=== PATIENT | male | born 1955 | race African-American/Black ===

== ENCOUNTER 2016-11-24 21:06 | Emergency (ER) | payer MEDICARE, OTHER ==
[2016-11-24 21:13] VITALS: RESP 18; TEMP 98
[2016-11-24] MEDS ORDERED: NITROGLYCERIN SL TABS 0.4 MG TAB SUBLINGUAL STA ×3 (22:00)
[2016-11-24] MEDS ORDERED: ASPIRIN 81 MG CHEW PO STA (22:00)
--- NOTE | 2016-11-24 22:03 | ED ---
General Adult HPI - General Chief complaint: Chest Pain Stated complaint: Chest Pain Time Seen by Provider: 11/24/16 21:28 Source: patient, RN notes reviewed Mode of arrival: EMS Limitations: no limitations - History of Present Illness Initial comments: Patient is a pleasant 61-year-old male presenting to the emergency Department with chest discomfort. Onset of symptoms was around 6 PM while at rest. Symptoms persist. Discomfort feels like heaviness. Symptoms are somewhat similar to stent placement done last week. No vomiting or sweating. - Related Data Home Medications Medication Instructions Recorded Confirmed Fluticasone Propionate [Flonase 1 spray EA NOSTRIL BID PRN 03/10/15 11/24/16 Allergy Relief] Carisoprodol [Soma] 350 mg PO TID PRN 12/19/15 11/24/16 HYDROmorphone HCL 4 mg PO DAILY PRN 05/27/16 11/24/16 Diazepam 10 mg PO HS 10/04/16 11/24/16 SUMAtriptan SUCCINATE [Imitrex] 100 mg PO BID PRN 10/04/16 11/24/16 Atenolol 100 mg PO BID 11/18/16 11/24/16 Promethazine [Phenergan] 25 mg PO Q6HR PRN 11/18/16 11/24/16 Spironolactone-Hctz 25-25Mg 1 tab PO DAILY 11/18/16 11/24/16 [Aldactazide 25-25 MG] Previous Rx's Medication Instructions Recorded Morphine Sulfate ER [Ms Contin] 60 mg PO Q12HR #60 tab 06/04/15 cloNIDine HCL [Catapres] 0.1 mg PO BID #6 tab 09/19/16 Atorvastatin [Lipitor] 40 mg PO DAILY 30 Days 10/05/16 Nitroglycerin Sl Tabs [Nitrostat] 0.4 mg SUBLINGUAL Q5M PRN #0 tab 10/05/16 amLODIPine [Norvasc] 5 mg PO DAILY 30 Days 10/05/16 Aspirin 325 mg PO DAILY #30 tab 11/22/16 Azithromycin [Zithromax] 500 mg PO DAILY #3 tab 11/22/16 Isosorbide Mononitrate ER [Imdur] 30 mg PO DAILY #30 tab.er.24h 11/22/16 Prasugrel [Effient] 10 mg PO DAILY #30 tab 11/22/16 oxyCODONE HCL/ACETAMINOPHEN 1 tab PO Q6HR PRN #1 tab 11/22/16 [Percocet 10-325 mg] Allergies Allergy/AdvReac Type Severity Reaction Status Date / Time ibuprofen [From Motrin] Allergy Rash/Hives Verified 11/24/16 22:41 ketorolac tromethamine Allergy Rash/Hives Verified 11/24/16 22:41 [From Toradol] Review of Systems ROS Statement: Those systems with pertinent positive or pertinent negative responses have been documented in the HPI. ROS Other: All systems not noted in ROS Statement are negative. Constitutional: Denies: fever Eyes: Denies: eye pain ENT: Denies: ear pain Respiratory: Denies: cough Cardiovascular: Reports: chest pain Endocrine: Denies: fatigue Gastrointestinal: Denies: abdominal pain Genitourinary: Denies: dysuria Musculoskeletal: Denies: arthralgia Skin: Denies: rash Past Medical History Past Medical History: Chest Pain / Angina, Hyperlipidemia, Hypertension Additional Past Medical History / Comment(s): Other HX: CHRONIC BACK PAIN, chronic pain syndrome, migraines History of Any Multi-Drug Resistant Organisms: None Reported Past Surgical History: Back Surgery Additional Past Surgical History / Comment(s): Low back surgery, bilateral arm and bilateral thigh surgeries for brown recluse spider bites with infection, morphine pain pump insertion and removal due to infection. Past Anesthesia/Blood Transfusion Reactions: No Reported Reaction Additional Past Anesthesia/Blood Transfusion Reaction / Comment(s): Pt recieved blood after back surgery and tolerated it well. Past Psychological History: No Psychological Hx Reported Additional Psychological History / Comment(s): Pt resides with his . He is fairly independent. He uses a cane/walker to ambulate. Smoking Status: Former smoker Past Alcohol Use History: None Reported Additional Past Alcohol Use History / Comment(s): . Past Drug Use History: None Reported - Past Family History Father Additional Family Medical History / Comment(s): Father had back problems. Mother Family Medical History: Hypertension Brother(s) Family Medical History: Cancer Additional Family Medical History / Comment(s): Leukemia General Exam Limitations: no limitations General appearance: alert, in no apparent distress Head exam: Present: atraumatic Eye exam: Present: normal appearance, PERRL ENT exam: Present: normal oropharynx Neck exam: Present: normal inspection Respiratory exam: Present: normal lung sounds bilaterally. Absent: chest wall tenderness Cardiovascular Exam: Present: regular rate, normal rhythm Expanded Peripheral pulses: 2+: Radial (R), Radial (L), Dorsalis Pedis (R), Dorsalis Pedis (L) GI/Abdominal exam: Present: soft. Absent: tenderness Extremities exam: Present: normal inspection. Absent: pedal edema, calf tenderness Neurological exam: Present: alert Psychiatric exam: Present: normal affect, normal mood Skin exam: Absent: rash Course Vital Signs 11/24/16 11/24/16 11/24/16 21:08 22:03 23:11 Temperature 98.0 F Pulse Rate 75 75 81 Respiratory 18 18 18 Rate Blood Pressure 158/95 166/113 149/104 O2 Sat by Pulse 96 100 99 Oximetry 11/24/16 11/25/16 23:56 00:07 Temperature Pulse Rate 71 64 Respiratory 18 18 Rate Blood Pressure 166/101 182/98 O2 Sat by Pulse 99 98 Oximetry - Reevaluation(s) Reevaluation #1: 11/24/16 23:26 Despite several nursing attempts at IV and [employer]ING [employer] still unable to obtain labs or IV access. Patient refuses interosseous line. Patient warned of risks of central line. 11/25/16 00:32 Patient is refusing central line. Patient is explained risk and benefits of obtaining blood work and IV access. Despite this patient states he is nervous and still refuses. Case was discussed in detail with Dr. Mares who agrees the patient will not allow IV access and lab work he'll need to sign out AGAINST MEDICAL ADVICE. Patient is advised of this and would like to leave AGAINST MEDICAL ADVICE. Patient does demonstrate medical decision making. EKG Findings - EKG Comments: EKG Findings:: Normal sinus rhythm at 81. IA 172. QRS 90. QT 374. QTC 434. Normal axis. Normal QRS. Normal ST-T. Previous EKGs reviewed. 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 Return for worsening or change in symptoms or any other concerns. Referrals: Lucian Mares MD [Primary Care Provider] - 1-2 days
--- NOTE | 2016-11-24 23:13 | XR ---
EXAMINATION TYPE: XR chest 2V DATE OF EXAM: 11/24/2016 10:54 PM COMPARISON: November 18, 2016 HISTORY: Left-sided chest pain nausea and fever TECHNIQUE: Frontal and lateral views of the chest are obtained. FINDINGS: There is no focal air space opacity, pleural effusion, or pneumothorax seen. The cardiac silhouette size is within normal limits. Thoracic aorta is tortuous and ectatic.. The osseous structu res are intact. Mild old wedge compression deformities of thoracic vertebrae are noted. IMPRESSION: No acute cardiopulmonary process. No significant interval change.
[2016-11-25 00:10] VITALS: BP 182/98; PULSE 64
== END 2016-11-25 00:44 | disposition left against medical advice (07) ==
LOC: EC 21:06
DX: R07.9 Chest pain, unspecified (principal); I10 Essential (primary) hypertension; E78.5 Hyperlipidemia, unspecified; Z87.891 Personal history of nicotine dependence; Z88.8 Allergy status to other drugs, medicaments and biological substances; Z79.82 Long term (current) use of aspirin; Z79.899 Other long term (current) drug therapy; Z79.891 Long term (current) use of opiate analgesic
CPT/HCPCS: 71020; 93005; 99285

== ENCOUNTER 2017-04-20 09:03 | Inpatient (IN) | payer MEDICARE, OTHER ==
[2017-04-20] MEDS ORDERED: NITROGLYCERIN OINT 1 INCH/GM PACKET TOPICAL STA (09:25)
--- NOTE | 2017-04-20 09:27 | ED ---
General Adult HPI - General Chief complaint: Chest Pain Stated complaint: chest pain Time Seen by Provider: 04/20/17 09:10 Source: patient, RN notes reviewed Mode of arrival: wheelchair Limitations: no limitations - History of Present Illness Initial comments: This is a 61-year-old male comes in the emergency room with a past medical history significant for stents. Patient states this morning at 6:30 while watching TV started having chest pain went to his jaw. Patient states she is also very short of breath at that time. Patient states since then the pain is resolved. Patient states he also became nauseated and vomited he also noticed blood clots in the vomit. Patient states he is on Effient because of the stents. Patient denies any palpitations. Patient denies any recent fever chills or cough. Patient denies abdominal pain. Patient denies lightheadedness or dizziness. Patient denies any headache patient denies any numbness weakness. - Related Data Home Medications Medication Instructions Recorded Confirmed Carisoprodol [Soma] 350 mg PO TID PRN 12/19/15 04/20/17 HYDROmorphone HCL 4 mg PO BID PRN 05/27/16 04/20/17 Diazepam 10 mg PO HS 10/04/16 04/20/17 Aspirin 81 mg PO DAILY 01/21/17 04/20/17 Carvedilol 25 mg PO BID 01/21/17 04/20/17 Lisinopril [Zestril] 20 mg PO Q12H 01/21/17 04/20/17 Fluticasone Nasal [place] [Flonase 1 spray EA NOSTRIL DAILY 04/20/17 04/20/17 Nasal [place]] Previous Rx's Medication Instructions Recorded Morphine Sulfate ER [Ms Contin] 60 mg PO Q12HR #60 tab 06/04/15 Prasugrel [Effient] 10 mg PO DAILY #30 tab 11/22/16 Allergies Allergy/AdvReac Type Severity Reaction Status Date / Time ibuprofen [From Motrin] Allergy Rash/Hives Verified 04/20/17 11:07 ketorolac tromethamine Allergy Rash/Hives Verified 04/20/17 11:07 [From Toradol] Review of Systems ROS Statement: Those systems with pertinent positive or pertinent negative responses have been documented in the HPI. ROS Other: All systems not noted in ROS Statement are negative. Past Medical History Past Medical History: Chest Pain / Angina, Hyperlipidemia, Hypertension Additional Past Medical History / Comment(s): Other HX: CHRONIC BACK PAIN, chronic pain syndrome, migraines History of Any Multi-Drug Resistant Organisms: None Reported Past Surgical History: Back Surgery Additional Past Surgical History / Comment(s): Low back surgery, bilateral arm and bilateral thigh surgeries for brown recluse spider bites with infection, morphine pain pump insertion and removal due to infection. Past Anesthesia/Blood Transfusion Reactions: No Reported Reaction Additional Past Anesthesia/Blood Transfusion Reaction / Comment(s): Pt recieved blood after back surgery and tolerated it well. Past Psychological History: No Psychological Hx Reported Additional Psychological History / Comment(s): Pt resides with his . He is fairly independent. He uses a cane/walker to ambulate. Smoking Status: Former smoker Past Alcohol Use History: None Reported Additional Past Alcohol Use History / Comment(s): . Past Drug Use History: None Reported - Past Family History Father Additional Family Medical History / Comment(s): Father had back problems. Mother Family Medical History: Hypertension, Myocardial Infarction ([place]) Brother(s) Family Medical History: Cancer Additional Family Medical History / Comment(s): Leukemia General Exam - General Exam Comments Initial Comments: GENERAL: Patient is well-developed and well-nourished. Patient is nontoxic and well- hydrated and is in no acute distress. ENT: Neck is soft and supple. No significant lymphadenopathy is noted. Oropharynx is clear. Moist mucous membranes. Neck has full range of motion without eliciting any pain. EYES: The sclera were anicteric and conjunctiva were pink and moist. Extraocular movements were intact and pupils were equal round and reactive to light. Eyelids were unremarkable. PULMONARY: Unlabored respirations. Good breath sounds bilaterally. No audible rales rhonchi or wheezing was noted. CARDIOVASCULAR: There is a regular rate and rhythm without any murmurs gallops or rubs. ABDOMEN: Soft and nontender with normal bowel sounds. No palpable organomegaly was noted. There is no palpable pulsatile mass. SKIN: Skin is clear with no lesions or rashes and otherwise unremarkable. NEUROLOGIC: Patient is alert and oriented x3. Cranial nerves II through XII are grossly intact. Motor and sensory are also intact. Normal speech, volume and content. Symmetrical smile. MUSCULOSKELETAL: Normal extremities with adequate strength and full range of motion. No lower extremity swelling or edema. No calf tenderness. LYMPHATICS: No significant lymphadenopathy is noted PSYCHIATRIC: Normal psychiatric evaluation. Limitations: no limitations Course Vital Signs 04/20/17 04/20/17 09:07 11:00 Temperature 97.8 F 98.1 F Pulse Rate 75 70 Respiratory 18 18 Rate Blood Pressure 188/111 171/104 O2 Sat by Pulse 99 99 Oximetry Medical Decision Making - Medical Decision Making EKG shows normal sinus rhythm at 70 bpm [place] interval is 174 QRS is 86 QT interval 384 QTC is 414. Patient's EKG shows no acute ST segment elevation or depression or T-wave abdomen is noted. Because patient was coughing up some blood I did not give the patient aspirin and I will not be giving the patient heparin Chest x-ray shows no acute abnormality. I held heparin on the patient because the patient was vomiting up blood earlier. - Lab Data Result diagrams: 04/20/17 10:30 04/20/17 10:30 Lab Results 04/20/17 04/20/17 04/20/17 Range/Units 10:30 10:30 10:30 WBC 3.7 L (3.8-10.6) k/uL RBC 4.36 (4.30-5.90) m/uL Hgb 12.0 L (13.0-17.5) gm/dL Hct 38.3 L (39.0-53.0) % MCV 87.8 (80.0-100.0) fL MCH 27.6 (25.0-35.0) pg MCHC 31.4 (31.0-37.0) g/dL RDW 15.2 (11.5-15.5) % Plt Count 385 (150-450) k/uL Neutrophils % 62 % Lymphocytes % 25 % Monocytes % 7 % Eosinophils % 2 % Basophils % 2 % Neutrophils # 2.3 (1.3-7.7) k/uL Lymphocytes # 0.9 L (1.0-4.8) k/uL Monocytes # 0.3 (0-1.0) k/uL Eosinophils # 0.1 (0-0.7) k/uL Basophils # 0.1 (0-0.2) k/uL PT (9.0-12.0) sec INR (<1.1) APTT (22.0-30.0) sec Sodium 141 (137-145) mmol/L Potassium 4.3 (3.5-5.1) mmol/L Chloride 109 H (98-107) mmol/L Carbon Dioxide 24 (22-30) mmol/L Anion Gap 8 mmol/L BUN 7 L (9-20) mg/dL Creatinine 0.54 L (0.66-1.25) mg/dL Est GFR (MDRD) Af Amer >60 (>60 ml/min/1.73 sqM) Est GFR (MDRD) Non-Af >60 (>60 ml/min/1.73 sqM) Glucose 113 H (74-99) mg/dL Calcium 9.5 (8.4-10.2) mg/dL Magnesium 1.9 (1.6-2.3) mg/dL Total Bilirubin 0.7 (0.2-1.3) mg/dL AST 20 (17-59) U/L ALT 19 L (21-72) U/L Alkaline Phosphatase 64 (38-126) U/L Total Creatine Kinase 53 L (55-170) U/L CK-MB (CK-2) 0.5 (0.0-2.4) ng/mL CK-MB (CK-2) Rel Index 0.9 Troponin I 0.020 (0.000-0.034) ng/mL Total Protein 6.8 (6.3-8.2) g/dL Albumin 4.0 (3.5-5.0) g/dL 04/20/17 Range/Units 10:55 WBC (3.8-10.6) k/uL RBC (4.30-5.90) m/uL Hgb (13.0-17.5) gm/dL Hct (39.0-53.0) % MCV (80.0-100.0) fL MCH (25.0-35.0) pg MCHC (31.0-37.0) g/dL RDW (11.5-15.5) % Plt Count (150-450) k/uL Neutrophils % % Lymphocytes % % Monocytes % % Eosinophils % % Basophils % % Neutrophils # (1.3-7.7) k/uL Lymphocytes # (1.0-4.8) k/uL Monocytes # (0-1.0) k/uL Eosinophils # (0-0.7) k/uL Basophils # (0-0.2) k/uL PT 10.8 (9.0-12.0) sec INR 1.1 (<1.1) APTT 23.9 (22.0-30.0) sec Sodium (137-145) mmol/L Potassium (3.5-5.1) mmol/L Chloride (98-107) mmol/L Carbon Dioxide (22-30) mmol/L Anion Gap mmol/L BUN (9-20) mg/dL Creatinine (0.66-1.25) mg/dL Est GFR (MDRD) Af Amer (>60 ml/min/1.73 sqM) Est GFR (MDRD) Non-Af (>60 ml/min/1.73 sqM) Glucose (74-99) mg/dL Calcium (8.4-10.2) mg/dL Magnesium (1.6-2.3) mg/dL Total Bilirubin (0.2-1.3) mg/dL AST (17-59) U/L ALT (21-72) U/L Alkaline Phosphatase (38-126) U/L Total Creatine Kinase (55-170) U/L CK-MB (CK-2) (0.0-2.4) ng/mL CK-MB (CK-2) Rel Index Troponin I (0.000-0.034) ng/mL Total Protein (6.3-8.2) g/dL Albumin (3.5-5.0) g/dL Disposition Clinical Impression: Unstable angina pectoris Disposition: ADMITTED IP TO THIS HOSP Referrals: Lucian Mares MD [Primary Care Provider] - 1-2 days Time of Disposition: 11:50
--- NOTE | 2017-04-20 10:23 | XR ---
EXAMINATION TYPE: XR chest 2V DATE OF EXAM: 04/20/2017 COMPARISON: Prior 21 January 2017 HISTORY: Chest pain TECHNIQUE: Frontal and lateral views of the chest are obtained. FINDINGS: There is no focal air space opacity, pleural effusion, or pneumothorax seen. The cardiac silhouette size is within normal limits. Prominent lung volumes suggest underlying COPD. Patient is r otated. The osseous structures are intact. IMPRESSION: No acute cardiopulmonary process.
[2017-04-20 10:48] LABS: Basophils # (A) 0.1 k/uL (0-0.2); Basophils % (A) 2 %; Eosinophils # (A) 0.1 k/uL (0-0.7); Eosinophils % (A) 2 %; HCT 38.3 % (39.0-53.0); HDW 2.46; Luc # (Auto) 0.08; Luc % (Auto) 2; Lymphocytes # (A) 0.9 k/uL (1.0-4.8); Lymphocytes % (A) 25 %; MCH 27.6 pg (25.0-35.0); MCHC 31.4 g/dL (31.0-37.0); MCV 87.8 fL (80.0-100.0); Mean Platelet Volume 6.2; Monocytes # (A) 0.3 k/uL (0-1.0); Monocytes % (A) 7 %; Neutrophils # (A) 2.3 k/uL (1.3-7.7); Neutrophils % (A) 62 %; RBC 4.36 m/uL (4.30-5.90); RDW 15.2 % (11.5-15.5); WBC 3.7 k/uL (3.8-10.6); WBC (Perox) 3.49
[2017-04-20 11:15] LABS: ALT 19 U/L (21-72); AST 20 U/L (17-59); Alkaline Phosphatase 64 U/L (38-126); Anion Gap 8 mmol/L; Blood Urea Nitrogen 7 mg/dL (9-20); Calcium 9.5 mg/dL (8.4-10.2); Carbon Dioxide 24 mmol/L (22-30); Chloride 109 mmol/L (98-107); Glucose 113 mg/dL (74-99); Magnesium 1.9 mg/dL (1.6-2.3); Non-African American GFR(MDRD) >60 (>60 ml/min/1.73 sqM); Potassium 4.3 mmol/L (3.5-5.1); Sodium 141 mmol/L (137-145); Total Bilirubin 0.7 mg/dL (0.2-1.3); Total Protein 6.8 g/dL (6.3-8.2)
[2017-04-20 11:22] LABS: INR 1.1 (<1.1); Partial Thromboplastin Time 23.9 sec (22.0-30.0); Prothrombin Time 10.8 sec (9.0-12.0)
[2017-04-20 11:27] LABS: Troponin I 0.02 ng/mL (0.000-0.034)
[2017-04-20 11:28] LABS: Creatine Kinase MB 0.5 ng/mL (0.0-2.4)
[2017-04-20] MEDS ORDERED: NITROGLYCERIN SL TABS 0.4 MG TAB SUBLINGUAL PRN (11:50)
[2017-04-20] MEDS ORDERED: LISINOPRIL 20 MG TAB PO STA (12:14)
[2017-04-20] MEDS ORDERED: ONDANSETRON 4 MG/2 ML VIAL IVP STA (12:25)
[2017-04-20] MEDS: oxyCODONE-APAP 7.5-325MG 1 EACH TAB PO PRN ×2 (14:58→21:09)
[2017-04-20] MEDS ORDERED: LORazepam 1 MG TAB PO PRN (15:24)
[2017-04-20] MEDS ORDERED: hydrALAZINE HCL 20 MG/ML 1 ML VIAL IVP PRN (15:29)
[2017-04-20 17:12] LABS: Creatine Kinase 40 U/L (55-170)
[2017-04-20] MEDS: NITROGLYCERIN OINT 1 INCH/GM PACKET TOPICAL SCH ×2 (17:14→23:29)
[2017-04-20] MEDS: HYDROmorphone 1 MG/ML 1 ML SYRINGE IVP PRN ×2 (17:15→23:26)
[2017-04-20] MEDS: CARVEDILOL 12.5 MG TAB PO SCH (17:15)
[2017-04-20] MEDS: ONDANSETRON 4 MG/2 ML VIAL IVP PRN ×2 (17:23→23:26)
[2017-04-20 17:24] LABS: Creatine Kinase MB 0.4 ng/mL (0.0-2.4); Troponin I <0.012 ng/mL (0.000-0.034)
[2017-04-20 18:57] VITALS: BMI 24.3
[2017-04-20] MEDS: cloNIDine HCL 0.1 MG TAB PO PRN (18:58)
[2017-04-20] MEDS: DIAZEPAM 5 MG TAB PO SCH (20:14)
[2017-04-20] MEDS: MORPHINE SULFATE ER 60 MG TABLET PO SCH (20:15)
[2017-04-20] MEDS: LISINOPRIL 20 MG TAB PO SCH (20:15)
[2017-04-20] MEDS: PANTOPRAZOLE 40 MG/10 ML VIAL IVP SCH (20:15)
[2017-04-20] MEDS: cloNIDine HCL 0.1 MG TAB PO SCH (21:09)
[2017-04-20 23:12] LABS: Creatine Kinase 45 U/L (55-170)
[2017-04-20 23:25] LABS: Creatine Kinase MB 0.3 ng/mL (0.0-2.4); Troponin I <0.012 ng/mL (0.000-0.034)
[2017-04-21] MEDS: oxyCODONE-APAP 7.5-325MG 1 EACH TAB PO PRN ×3 (03:13→20:32)
--- NOTE | 2017-04-21 05:17 | HP ---
DATE OF ADMISSION: I am covering for Dr. Mares. CHIEF COMPLAINT: Chest pain. HISTORY OF PRESENT ILLNESS: This 61-year-old gentleman with history of hypertension, hyperlipidemia, CAD, stent, history of chronic back pain, history of chronic pain, history of migraines, history of back surgery being followed Dr. Mares in the outpatient setting, admitted with chest pain. The pain is felt in the anterior part of the chest while the patient was watching TV. The patient also has shortness of breath. The patient also had nausea. No vomiting also. The patient came to [facility] and was admitted for further evaluation and treatment. There is no history of fever, rigors. No history of headache, loss of consciousness or seizures. The initial labs showed WBC 3.7 and . Troponin 0.020. Cardiology evaluation in progress. The chest x-ray on admission showed no cardiopulmonary disease. EKG is noted. There is no history of fever or rigors. PAST MEDICAL HISTORY: History of chest pain, CAD, agnina, hypertension, hyperlipidemia, chronic pain syndrome, chronic back pain. Medications prior to admission include home medications: 1. Effient 10 mg p.o. daily. 2. MS Contin 60 mg p.o. b.i.d. 3. Zestril 20 mg b.i.d. 4. Hydromorphone 4 mg b.i.d. p.r.n. 5. Coreg 25 mg p.o. b.i.d. 6. Soma 350 mg p.o. t.i.d. p.r.n. 7. Aspirin 81 mg daily. 8. Flonase one spray daily. 9. Diazepam 10 mg q.h.s. ALLERGIES: IBUPROFEN, KETOROLAC. FAMILY HISTORY: History of hypertension, myocardial infarction. Father had back problems. SOCIAL HISTORY: No history of current smoking, previous history of smoking. REVIEW OF SYSTEMS: ENT: No diminishing hearing or diminished vision. CARDIOVASCULAR SYSTEM: As mentioned earlier. RESPIRATORY SYSTEM: As mentioned. GI: No nausea. : No dysuria: NERVOUS SYSTEM: No numbness or weakness. ALLERGY/IMMUNOLOGY: No asthma or hayfever. MUSCULOSKELETAL: As mentioned earlier. HEMATOLOGY/ONCOLOGY: No history of anemia. ENDOCRINE: No history of diabetes mellitus or hypothyroidism. CONSTITUTIONAL; As mentioned earlier. DERMATOLOGY: Negative. RHEUMATOLOGY: Negative. PSYCHIATRY: As mentioned earlier. PHYSICAL EXAMINATION: The patient is alert and oriented x3. Pulse is 90, blood pressure 171/82, respirations 20, temperature 97.1., pulse ox 90% on 2 L. HEENT: Conjunctivae normal. NECK: No jugular venous distention. CARDIOVASCULAR: S1 and S2, muffled. No S3, no S4. RESPIRATORY: Breath sounds diminished at the bases. A few scattered rhonchi and crackles. ABDOMEN: Soft, nontender. No mass palpable. LEGS: No edema, no swelling. NERVOUS SYSTEM: Higher function as mentioned. Moves all 4 limbs. No focal deficits. LYMPHATICS: No lymphadenopathy of neck, axillae or groin. SKIN: No ulcer, rashes or bleeding. Labs are at this time show WBC 3.7, hemoglobin 12. Other labs are noted. Chest x-ray reviewed. ASSESSMENT: 1. Chest pain, possible unstable angina. Rule out acute myocardial infarction . 2. Hypertensive urgency with accelerated hypertension. 3. History of essential hypertension. 4. History of coronary artery disease and stent. 5. History of hyperlipidemia. 6. History of chronic back. 7. Chronic pain syndrome. 8. History of migraine. 9. History of brown recluse spider bite infections. 10. History of morphine pump insertion and removal because of infection. 11. FULL CODE. RECOMMENDATIONS AND DISCUSSION: This 61-year-old gentleman who presented with multiple complex medical issues, we will monitor the patient closely. Continue the current medications. Continues symptomatic treatment. Rule out myocardial infarction, Troponin. Cardiology consultation. Otherwise, unstable angina protocol. I would also recommend p.r.n. medications for the high blood pressure. The patient is on lisinopril b.i.d. Guarded prognosis because of the multiple medical issues and further recommendations to follow. See orders for further details. MTDD
[2017-04-21] MEDS: ONDANSETRON 4 MG/2 ML VIAL IVP PRN ×2 (05:26→20:39)
[2017-04-21] MEDS: HYDROmorphone 1 MG/ML 1 ML SYRINGE IVP PRN ×3 (05:26→18:14)
[2017-04-21 06:10] LABS: Basophils % (A) 1 %; CH 27.7; CHCM 31.9; Eosinophils # (A) 0.1 k/uL (0-0.7); Eosinophils % (A) 2 %; HDW 2.41; HGB 11.6 gm/dL (13.0-17.5); Luc # (Auto) 0.09; Luc % (Auto) 3; Lymphocytes # (A) 1.4 k/uL (1.0-4.8); Lymphocytes % (A) 39 %; MCH 28.1 pg (25.0-35.0); MCHC 32.3 g/dL (31.0-37.0); MCV 87.1 fL (80.0-100.0); Mean Platelet Volume 6.3; Monocytes # (A) 0.3 k/uL (0-1.0); Monocytes % (A) 8 %; Neutrophils # (A) 1.7 k/uL (1.3-7.7); Neutrophils % (A) 48 %; RBC 4.13 m/uL (4.30-5.90); RDW 15.2 % (11.5-15.5); WBC 3.5 k/uL (3.8-10.6); WBC (Perox) 3.29
[2017-04-21] MEDS: NITROGLYCERIN OINT 1 INCH/GM PACKET TOPICAL SCH ×4 (06:30→23:19)
[2017-04-21] MEDS: CARVEDILOL 12.5 MG TAB PO SCH ×2 (06:30→16:57)
[2017-04-21 06:47] LABS: Anion Gap 7 mmol/L; Blood Urea Nitrogen 6 mg/dL (9-20); Calcium 9.2 mg/dL (8.4-10.2); Carbon Dioxide 26 mmol/L (22-30); Chloride 106 mmol/L (98-107); Cholesterol 177 mg/dL (<200); Glucose 96 mg/dL (74-99); HDL Cholesterol 47 mg/dL (40-60); Non-African American GFR(MDRD) >60 (>60 ml/min/1.73 sqM); Potassium 4.1 mmol/L (3.5-5.1); Sodium 139 mmol/L (137-145); Triglycerides 136 mg/dL (<150)
--- NOTE | 2017-04-21 07:55 | P.PN ---
Subjective Principal diagnosis: Chest pain. This is a continue progress in 7-year-old -English male who came in for recurrent chest pain. He has had previous stent placement about 6 months ago. He states significant pain today. Enzymatic elevation is not seen from a CK-MB and troponin standpoint. He states he is in significant pain. He seems to be resting comfortably. He has a history of opioid dependence in the past. He has chronic pain physician that he sees. I do give him his muscle relaxer. He does claim nausea today. No other voiding difficulties. Objective - Vital Signs Vital signs: Vital Signs Temp 96.8 F L 04/21/17 07:32 Pulse 76 04/21/17 07:32 Resp 18 04/21/17 07:32 BP 139/102 04/21/17 07:32 Pulse Ox 98 04/21/17 07:32 Intake & Output 04/20/17 04/21/17 04/21/17 18:59 06:59 18:59 Intake Total 20 Output Total 1000 Balance -980 Weight 79.1 kg 77.7 kg Intake: IV 20 0.9 20 Output: Urine 1000 Other: # Voids 1 - Constitutional General appearance: Present: average body habitus - EENT Eyes: Absent: abnormal pupil - Neck Neck: Absent: lymphadenopathy - Respiratory Respiratory: bilateral: CTA - Cardiovascular Rhythm: regular - Gastrointestinal General gastrointestinal: Present: soft. Absent: tenderness - Neurologic Neurologic: Present: CNII-XII intact - Musculoskeletal Musculoskeletal: Absent: right sided weakness, left sided weakness - Labs CBC & Chem 7: 04/21/17 05:53 04/21/17 05:53 Labs: Abnormal Lab Results - Last 24 Hours (Table) 04/20/17 04/20/17 04/20/17 Range/Units 10:30 10:30 10:30 WBC 3.7 L (3.8-10.6) k/uL RBC (4.30-5.90) m/uL Hgb 12.0 L (13.0-17.5) gm/dL Hct 38.3 L (39.0-53.0) % Lymphocytes # 0.9 L (1.0-4.8) k/uL Chloride 109 H (98-107) mmol/L BUN 7 L (9-20) mg/dL Creatinine 0.54 L (0.66-1.25) mg/dL Glucose 113 H (74-99) mg/dL ALT 19 L (21-72) U/L Total Creatine Kinase 53 L (55-170) U/L LDL Cholesterol, Calc (0-99) mg/dL 04/20/17 04/20/17 04/21/17 Range/Units 16:25 22:40 05:53 WBC (3.8-10.6) k/uL RBC (4.30-5.90) m/uL Hgb (13.0-17.5) gm/dL Hct (39.0-53.0) % Lymphocytes # (1.0-4.8) k/uL Chloride (98-107) mmol/L BUN 6 L (9-20) mg/dL Creatinine 0.57 L (0.66-1.25) mg/dL Glucose (74-99) mg/dL ALT (21-72) U/L Total Creatine Kinase 40 L 45 L (55-170) U/L LDL Cholesterol, Calc 103 H (0-99) mg/dL 04/21/17 Range/Units 05:53 WBC 3.5 L (3.8-10.6) k/uL RBC 4.13 L (4.30-5.90) m/uL Hgb 11.6 L (13.0-17.5) gm/dL Hct 36.0 L (39.0-53.0) % Lymphocytes # (1.0-4.8) k/uL Chloride (98-107) mmol/L BUN (9-20) mg/dL Creatinine (0.66-1.25) mg/dL Glucose (74-99) mg/dL ALT (21-72) U/L Total Creatine Kinase (55-170) U/L LDL Cholesterol, Calc (0-99) mg/dL Assessment and Plan (1) Opiate dependence, continuous Status: Acute (2) Unstable angina pectoris Status: Acute (3) Accelerated hypertension Status: Acute (4) Intractable nausea and vomiting Status: Acute
[2017-04-21] MEDS ORDERED: PROCHLORPERAZINE 10 MG TAB PO PRN (07:56)
[2017-04-21] MEDS: PANTOPRAZOLE 40 MG/10 ML VIAL IVP SCH ×2 (08:47→20:33)
[2017-04-21] MEDS: PRASUGREL 10 MG TAB PO SCH (08:47)
[2017-04-21] MEDS: ASPIRIN 81 MG CHEW PO SCH (08:47)
[2017-04-21] MEDS: cloNIDine HCL 0.1 MG TAB PO SCH ×2 (08:48→20:33)
[2017-04-21] MEDS: LISINOPRIL 20 MG TAB PO SCH ×2 (08:48→20:33)
[2017-04-21] MEDS: MORPHINE SULFATE ER 60 MG TABLET PO SCH ×2 (08:55→20:32)
[2017-04-21] MEDS: FLUTICASONE 50MCG/SPRAY NASAL 16GM EA NOSTRIL SCH (08:56)
[2017-04-21] MEDS ORDERED: ASPIRIN 325 MG TAB PO SCH (09:00)
--- NOTE | 2017-04-21 09:10 | CONS ---
DATE OF CONSULTATION: Salomon is a 61-year-old gentleman with history of coronary artery disease, status post angioplasty, hypertension, and chronic back pain who presented to hospital with what started as a nausea and episodes of vomiting and subsequently had chest discomfort. We have been consulted for chest pain. His chest pain is sharp, atypical, seems musculoskeletal and mild to moderate intensity. The pain came on after he had the bout of vomiting. Patient states that when he vomited, he saw some blood in his blood in his vomitus but his hemoglobin had remained stable. He continues to be somewhat nausea but denies chest pain, difficulty in breathing, palpitations, dizziness, or syncope. EKG shows sinus rhythm without significant ST-T wave changes. Two sets of cardiac enzymes have been normal. His creatinine is normal at 0.57, hemoglobin is 11.6, platelet count is 347. Past medical history is significant for coronary artery disease, status post angioplasty, hypertension, chronic back pain. Current medications include: 1. Zestril 20 mg daily. 2. Carvedilol 25 b.i.d. 3. Soma. 4. Aspirin. 5. Flonase. 6. ( ). 7. Effient. ALLERGIES: THE PATIENT IS ALLERGIC TO MOTRIN AND TORADOL. FAMILY HISTORY: Negative for premature coronary artery disease. SOCIAL HISTORY: Denies current smoking, ETOH use or drug abuse. REVIEW OF SYSTEMS: HEENT: Unremarkable. CARDIAC: As described above. RESPIRATORY: Negative. GI: As described above. GENITOURINARY: Negative. Allergy/immunology: Negative. MUSCULOSKELETAL: Significant for arthritis. PSYCHOSOCIAL: Negative. ENDOCRINE: Negative. DERM: Negative. CONSTITUTIONAL: Negative. Oncological: Negative. The rest of the system review is not relevant. On exam, patient is comfortable at rest. Vital signs are stable. There is no jugular venous distention. Chest exam reveals good air entry bilaterally. Heart exam reveals first and second heart sounds. No gallop. No murmur. ABDOMEN: Soft, nontender. Exam of extremities did not reveal edema. Peripheral pulses are felt. MANAGER DOCUMENTATION exam did not reveal focal neurological deficits. Labs show a hemoglobin of 11.6, platelet count is 347. Creatinine is 0.5. Three sets of troponins are negative. LDL cholesterol is 103. EKG does not reveal acute ischemic changes. ASSESSMENT: 1. Chest pain. 2. Coronary artery disease, status post angioplasty. 3. Uncontrolled hypertension. 4. Nausea, vomiting. PLAN: From cardiac standpoint, patient appeared stable, does not require any testing at this time. Resume his medications for optimal blood pressure control. Monitor his hemoglobin closely and if his hemoglobin remains stable, continue the Effient. If the patient has ( ) we will consider an outpatient stress test on him.
[2017-04-21] MEDS ORDERED: BUTALB/APAP/CAFF 50-325-40MG TAB PO PRN (16:53)
[2017-04-21] MEDS: cloNIDine HCL 0.1 MG TAB PO PRN (16:56)
[2017-04-21] MEDS: DIAZEPAM 5 MG TAB PO SCH (20:32)
[2017-04-22] MEDS: HYDROmorphone 1 MG/ML 1 ML SYRINGE IVP PRN ×2 (00:43→06:36)
[2017-04-22] MEDS: oxyCODONE-APAP 7.5-325MG 1 EACH TAB PO PRN ×3 (03:40→17:44)
[2017-04-22] MEDS: CARISOPRODOL 350 MG TAB PO PRN ×3 (03:40→17:44)
[2017-04-22] MEDS: cloNIDine HCL 0.1 MG TAB PO PRN (04:27)
[2017-04-22] MEDS: CARVEDILOL 12.5 MG TAB PO SCH ×2 (06:30→17:25)
[2017-04-22] MEDS: NITROGLYCERIN OINT 1 INCH/GM PACKET TOPICAL SCH ×4 (06:35→17:23)
[2017-04-22] MEDS: ONDANSETRON 4 MG/2 ML VIAL IVP PRN ×2 (06:43→20:03)
--- NOTE | 2017-04-22 08:08 | P.DS ---
Providers Date of admission: 04/20/17 11:50 Attending physician: Lucian Mares Consults: 04/20/17 11:50 Consult Physician Urgent Consulting Provider: [facility] Consult Reason/Comments: Unstable angina Do you want consulting provider notified?: Yes Primary care physician: Lucian Mares - Discharge Diagnosis(es) (1) Opiate dependence, continuous Current Visit: Yes Status: Acute (2) Unstable angina pectoris Current Visit: Yes Status: Acute (3) Accelerated hypertension Current Visit: No Status: Acute (4) Intractable nausea and vomiting Current Visit: No Status: Acute Hospital Course: This discharge summary on a 61-year-old -[place] male who has underlying history of severe chronic pain and opiate dependence. He came in with significant chest pain and had elevated blood pressure. Myocardial infarctions ruled out. We will adjust his home blood pressure medication as it is been quite labile. He did struggle with significant nausea. We will go ahead and consult gastroenterology. Cardiology assessment could the patient because he is already on appropriate Effient with negative enzymatic elevation. The patient be discharged once cleared by consultants. He is to follow-up with me in approximately 5-7 days. Patient Condition at Discharge: Stable Plan - Discharge Summary New Discharge Prescriptions: New cloNIDine HCL [Catapres] 0.2 mg PO BID #60 tab Nitroglycerin Sl Tabs [Nitrostat] 0.4 mg SUBLINGUAL Q5M PRN #50 tab PRN Reason: Chest Pain Continue Morphine Sulfate ER [Ms Contin] 60 mg PO Q12HR #60 tab Carisoprodol [Soma] 350 mg PO TID PRN PRN Reason: Muscle Spasm HYDROmorphone HCL 4 mg PO BID PRN PRN Reason: Breakthrough Pain Diazepam 10 mg PO HS Prasugrel [Effient] 10 mg PO DAILY #30 tab Lisinopril [Zestril] 20 mg PO Q12H Aspirin 81 mg PO DAILY Carvedilol 25 mg PO BID Fluticasone Nasal [place] [Flonase Nasal [place]] 1 spray EA NOSTRIL DAILY Discharge Medication List Morphine Sulfate ER [Ms Contin] 60 mg PO Q12HR #60 tab 06/04/15 [Rx] Carisoprodol [Soma] 350 mg PO TID PRN 12/19/15 [History] HYDROmorphone HCL 4 mg PO BID PRN 05/27/16 [History] Diazepam 10 mg PO HS 10/04/16 [History] Prasugrel [Effient] 10 mg PO DAILY #30 tab 11/22/16 [Rx] Aspirin 81 mg PO DAILY 01/21/17 [History] Carvedilol 25 mg PO BID 01/21/17 [History] Lisinopril [Zestril] 20 mg PO Q12H 01/21/17 [History] Fluticasone Nasal [place] [Flonase Nasal [place]] 1 spray EA NOSTRIL DAILY 04/20/17 [History] Nitroglycerin Sl Tabs [Nitrostat] 0.4 mg SUBLINGUAL Q5M PRN #50 tab 04/22/17 [Rx ] cloNIDine HCL [Catapres] 0.2 mg PO BID #60 tab 04/22/17 [Rx] Follow up Appointment(s)/Referral(s): Lucian Mares MD [Primary Care Provider] - 3 Days
[2017-04-22] MEDS: ASPIRIN 81 MG CHEW PO SCH (09:18)
[2017-04-22] MEDS: MORPHINE SULFATE ER 60 MG TABLET PO SCH ×2 (09:18→20:02)
[2017-04-22] MEDS: LISINOPRIL 20 MG TAB PO SCH ×2 (09:19→20:04)
[2017-04-22] MEDS: PRASUGREL 10 MG TAB PO SCH (09:19)
[2017-04-22] MEDS: PANTOPRAZOLE 40 MG/10 ML VIAL IVP SCH ×2 (09:19→20:04)
[2017-04-22] MEDS: cloNIDine HCL 0.2 MG TAB PO SCH ×2 (09:20→20:04)
[2017-04-22] MEDS: FLUTICASONE 50MCG/SPRAY NASAL 16GM EA NOSTRIL SCH (09:20)
[2017-04-22 13:06] VITALS: TEMP 97.2
--- NOTE | 2017-04-22 14:22 | P.PN ---
Subjective Principal diagnosis: Nausea and vomiting this is a 61-year-old gentleman with known history of coronary artery disease and prior angioplasty, hypertension, chronic back pain, who presented to the hospital with symptoms of nausea and vomiting , with subsequent chest pain. Pain was very atypical in nature. EKG showed normal sinus rhythm without any significant ST-T wave changes. Troponins have been negative. Patient feels well today, denies any chest pain or difficulty in breathing. Objective - Vital Signs Vital signs: Vital Signs Temp 97.2 F L 04/22/17 12:00 Pulse 104 H 04/22/17 12:00 Resp 18 04/22/17 12:00 BP 135/92 04/22/17 12:00 Pulse Ox 98 04/22/17 12:00 Intake & Output 04/21/17 04/22/17 04/22/17 18:59 06:59 18:59 Intake Total 600 300 400 Output Total 2070 Balance 600 -1770 400 Weight 76.7 kg Intake: Oral 600 300 400 Output: Urine 2069 - Exam PHYSICAL EXAMINATION: HEENT: [Head is atraumatic, normocephalic. Pupils equal, round. Neck is supple. There is no elevated jugular venous pressure.] HEART EXAMINATION: [Heart S1, S2 normal. No murmur or gallop heard.] CHEST EXAMINATION:[ Lungs are clear to auscultation and precussion. No chest wall tenderness is noted on palpation or with deep breathing.] ABDOMEN: [ Soft, nontender. Bowel sounds are heard. No organomegaly noted]. EXTREMITIES:[ 2+ peripheral pulses with no evidence of peripheral edema and no calf tenderness noted]. NEUROLOGIC [patient is awake, alert and oriented -3.] . - Labs CBC & Chem 7: 04/21/17 05:53 04/21/17 05:53 Assessment and Plan (1) Atypical chest pain Status: Acute (2) CAD (coronary artery disease) Status: Acute (3) HTN (hypertension) Status: Acute (4) Vomiting Status: Acute Plan: From cardiology's perspective, patient may be able to be discharged once cleared by the primary. We will follow him up in the office as an outpatient. DNP note has been reviewed, I agree with a documented findings and plan of care. Patient was seen and examined.
[2017-04-22 20:02] VITALS: BP 144/97; PULSE 105; RESP 16
[2017-04-22] MEDS: DIAZEPAM 5 MG TAB PO SCH (20:02)
== END 2017-04-22 21:22 | disposition home or self-care (01) | DRG 305 ==
LOC: EC 09:03 → 6SEL 11:50
PROVIDERS: ADMIT Family Medicine; ATTEND Family Medicine
DX: I16.0 Hypertensive urgency (principal); K92.0 Hematemesis; I25.110 Atherosclerotic heart disease of native coronary artery with unstable angina pectoris; F11.20 Opioid dependence, uncomplicated; E78.5 Hyperlipidemia, unspecified; I10 Essential (primary) hypertension; G89.4 Chronic pain syndrome; G43.909 Migraine, unspecified, not intractable, without status migrainosus; M54.9 Dorsalgia, unspecified; Z88.8 Allergy status to other drugs, medicaments and biological substances; Z95.5 Presence of coronary angioplasty implant and graft; Z87.891 Personal history of nicotine dependence; Z79.02 Long term (current) use of antithrombotics/antiplatelets; Z79.82 Long term (current) use of aspirin; Z79.899 Other long term (current) drug therapy; Z82.49 Family history of ischemic heart disease and other diseases of the circulatory system
CPT/HCPCS: 36415; 71020; 80048; 80053; 80061; 82550; 82553; 83735; 84484; 85025; 85610; 85730; 93005

== ENCOUNTER 2017-06-15 14:54 | Emergency (ER) | payer MEDICARE, OTHER ==
[2017-06-15 15:21] VITALS: RESP 18
[2017-06-15] MEDS ORDERED: MORPHINE SULFATE 4 MG/ML SYRINGE IV STA (15:53)
[2017-06-15] MEDS ORDERED: SODIUM CHLORIDE 0.9% 1,000 ML IV STA (15:53)
--- NOTE | 2017-06-15 16:18 | ED ---
General Adult HPI - General Chief complaint: Chest Pain Stated complaint: chest pain Time Seen by Provider: 06/15/17 15:47 Source: patient, RN notes reviewed, old records reviewed Mode of arrival: wheelchair Limitations: no limitations - History of Present Illness Initial comments: This is a 61-year-old male to the ER for evaluation. This patient presents for evaluation of chest pain. Patient has history of heart disease history of high cholesterol high blood pressure stents. No nausea vomiting at this time no diarrhea no shortness of breath. 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 Patient currently with anterior chest pain today. Denies short of breath does admit to tingling on his left arm. - Related Data Home Medications Medication Instructions Recorded Confirmed Carisoprodol [Soma] 350 mg PO TID PRN 12/19/15 06/15/17 HYDROmorphone HCL 4 mg PO BID PRN 05/27/16 06/15/17 Diazepam 10 mg PO HS 10/04/16 06/15/17 Aspirin 81 mg PO DAILY 01/21/17 06/15/17 Carvedilol 25 mg PO BID 01/21/17 06/15/17 Lisinopril [Zestril] 20 mg PO Q12H 01/21/17 06/15/17 Fluticasone Nasal [place] [Flonase 1 spray EA NOSTRIL DAILY 04/20/17 06/15/17 Nasal [place]] Previous Rx's Medication Instructions Recorded Morphine Sulfate ER [Ms Contin] 60 mg PO Q12HR #60 tab 06/04/15 Prasugrel [Effient] 10 mg PO DAILY #30 tab 11/22/16 Nitroglycerin Sl Tabs [Nitrostat] 0.4 mg SUBLINGUAL Q5M PRN #50 tab 04/22/17 cloNIDine HCL [Catapres] 0.2 mg PO BID #60 tab 04/22/17 Allergies Allergy/AdvReac Type Severity Reaction Status Date / Time ibuprofen [From Motrin] Allergy Rash/Hives Verified 06/15/17 15:27 ketorolac tromethamine Allergy Rash/Hives Verified 06/15/17 15:27 [From Toradol] Review of Systems ROS Statement: Those systems with pertinent positive or pertinent negative responses have been documented in the HPI. ROS Other: All systems not noted in ROS Statement are negative. Past Medical History Past Medical History: Chest Pain / Angina, Hyperlipidemia, Hypertension Additional Past Medical History / Comment(s): Other HX: CHRONIC BACK PAIN, chronic pain syndrome, migraines History of Any Multi-Drug Resistant Organisms: None Reported Past Surgical History: Back Surgery Additional Past Surgical History / Comment(s): Low back surgery, bilateral arm and bilateral thigh surgeries for brown recluse spider bites with infection, morphine pain pump insertion and removal due to infection. stents in october 2016 Past Anesthesia/Blood Transfusion Reactions: No Reported Reaction Additional Past Anesthesia/Blood Transfusion Reaction / Comment(s): Pt recieved blood after back surgery and tolerated it well. Past Psychological History: No Psychological Hx Reported Smoking Status: Former smoker Past Alcohol Use History: None Reported Past Drug Use History: None Reported - Past Family History Father Additional Family Medical History / Comment(s): Father had back problems. Mother Family Medical History: Hypertension, Myocardial Infarction ([place]) Brother(s) Family Medical History: Cancer Additional Family Medical History / Comment(s): Leukemia General Exam Limitations: no limitations General appearance: alert, in no apparent distress Head exam: Present: atraumatic, normocephalic, normal inspection Eye exam: Present: normal appearance, PERRL, EOMI. Absent: scleral icterus, conjunctival injection, periorbital swelling ENT exam: Present: normal exam, mucous membranes moist Neck exam: Present: normal inspection. Absent: tenderness, meningismus, lymphadenopathy Respiratory exam: Present: normal lung sounds bilaterally. Absent: respiratory distress, wheezes, rales, rhonchi, stridor Cardiovascular Exam: Present: regular rate, normal rhythm, normal heart sounds. Absent: systolic murmur, diastolic murmur, rubs, gallop, clicks GI/Abdominal exam: Present: soft, normal bowel sounds. Absent: distended, tenderness, guarding, rebound, rigid Extremities exam: Present: normal inspection, full ROM, normal capillary refill. Absent: tenderness, pedal edema, joint swelling, calf tenderness Back exam: Present: normal inspection Neurological exam: Present: alert, oriented X3, CN II-XII intact Psychiatric exam: Present: normal affect, normal mood Skin exam: Present: warm, dry, intact, normal color. Absent: rash Course Vital Signs 06/15/17 06/15/17 06/15/17 14:57 15:19 16:17 Temperature 97.8 F Pulse Rate 114 H 114 H 96 Respiratory 20 18 18 Rate Blood Pressure 118/85 135/87 132/85 O2 Sat by Pulse 99 100 99 Oximetry 06/15/17 17:13 Temperature Pulse Rate 105 H Respiratory 18 Rate Blood Pressure 133/88 O2 Sat by Pulse 98 Oximetry - Reevaluation(s) Reevaluation #1: 06/15/17 16:16 Patient seen in emergency room and admitted to the hospital recently within the last 3 months 2 times had heart catheterization which had no changes EKG Findings - EKG Comments: EKG Findings:: EKG shows sinus tachycardia rate 113, ID 140, QRS 80, QTC 477 Medical Decision Making - Medical Decision Making 61 [place] F reverse her chest pain, patient has chest pain currently. Patient's chest pain although is improved, troponin is negative EKG is normal patient will be discharged home - Lab Data Result diagrams: 06/15/17 16:10 06/15/17 16:28 Lab Results 06/15/17 06/15/17 06/15/17 Range/Units 16:10 16:28 16:28 WBC 5.1 (3.8-10.6) k/uL RBC 4.22 L (4.30-5.90) m/uL Hgb 11.3 L (13.0-17.5) gm/dL Hct 36.0 L (39.0-53.0) % MCV 85.3 (80.0-100.0) fL MCH 26.8 (25.0-35.0) pg MCHC 31.5 (31.0-37.0) g/dL RDW 15.5 (11.5-15.5) % Plt Count 542 H (150-450) k/uL Neutrophils % 79 % Lymphocytes % 14 % Monocytes % 6 % Eosinophils % 0 % Basophils % 0 % Neutrophils # 4.0 (1.3-7.7) k/uL Lymphocytes # 0.7 L (1.0-4.8) k/uL Monocytes # 0.3 (0-1.0) k/uL Eosinophils # 0.0 (0-0.7) k/uL Basophils # 0.0 (0-0.2) k/uL Hypochromasia Marked PT 10.9 (9.0-12.0) sec INR 1.1 (<1.2) APTT 23.3 (22.0-30.0) sec Sodium 141 (137-145) mmol/L Potassium 3.9 (3.5-5.1) mmol/L Chloride 107 (98-107) mmol/L Carbon Dioxide 18 L (22-30) mmol/L Anion Gap 16 mmol/L BUN 14 (9-20) mg/dL Creatinine 0.80 (0.66-1.25) mg/dL Est GFR (MDRD) Af Amer >60 (>60 ml/min/1.73 sqM) Est GFR (MDRD) Non-Af >60 (>60 ml/min/1.73 sqM) Glucose 105 H (74-99) mg/dL Calcium 9.8 (8.4-10.2) mg/dL Magnesium 1.8 (1.6-2.3) mg/dL Total Bilirubin 0.6 (0.2-1.3) mg/dL AST 27 (17-59) U/L ALT 25 (21-72) U/L Alkaline Phosphatase 161 H (38-126) U/L Total Creatine Kinase (55-170) U/L CK-MB (CK-2) (0.0-2.4) ng/mL CK-MB (CK-2) Rel Index Troponin I (0.000-0.034) ng/mL Total Protein 7.6 (6.3-8.2) g/dL Albumin 4.3 (3.5-5.0) g/dL Lipase 43 (23-300) U/L 06/15/17 Range/Units 16:28 WBC (3.8-10.6) k/uL RBC (4.30-5.90) m/uL Hgb (13.0-17.5) gm/dL Hct (39.0-53.0) % MCV (80.0-100.0) fL MCH (25.0-35.0) pg MCHC (31.0-37.0) g/dL RDW (11.5-15.5) % Plt Count (150-450) k/uL Neutrophils % % Lymphocytes % % Monocytes % % Eosinophils % % Basophils % % Neutrophils # (1.3-7.7) k/uL Lymphocytes # (1.0-4.8) k/uL Monocytes # (0-1.0) k/uL Eosinophils # (0-0.7) k/uL Basophils # (0-0.2) k/uL Hypochromasia PT (9.0-12.0) sec INR (<1.2) APTT (22.0-30.0) sec Sodium (137-145) mmol/L Potassium (3.5-5.1) mmol/L Chloride (98-107) mmol/L Carbon Dioxide (22-30) mmol/L Anion Gap mmol/L BUN (9-20) mg/dL Creatinine (0.66-1.25) mg/dL Est GFR (MDRD) Af Amer (>60 ml/min/1.73 sqM) Est GFR (MDRD) Non-Af (>60 ml/min/1.73 sqM) Glucose (74-99) mg/dL Calcium (8.4-10.2) mg/dL Magnesium (1.6-2.3) mg/dL Total Bilirubin (0.2-1.3) mg/dL AST (17-59) U/L ALT (21-72) U/L Alkaline Phosphatase (38-126) U/L Total Creatine Kinase 57 (55-170) U/L CK-MB (CK-2) 0.7 (0.0-2.4) ng/mL CK-MB (CK-2) Rel Index 1.2 Troponin I <0.012 (0.000-0.034) ng/mL Total Protein (6.3-8.2) g/dL Albumin (3.5-5.0) g/dL Lipase (23-300) U/L - Radiology Data Radiology results: report reviewed (Chest x-ray is negative for acute disease), image reviewed Disposition Clinical Impression: Chest pain Disposition: HOME SELF-CARE Condition: Good Instructions: Chest Pain (ED) Referrals: Lucian Mares MD [Primary Care Provider] - 1-2 days
[2017-06-15 17:00] LABS: Basophils % (A) 0 %; CH 25.9; CHCM 30.5; Eosinophils % (A) 0 %; HDW 3.18; HGB 11.3 gm/dL (13.0-17.5); Hypochromasia Marked; Luc # (Auto) 0.07; Luc % (Auto) 1; Lymphocytes # (A) 0.7 k/uL (1.0-4.8); Lymphocytes % (A) 14 %; MCH 26.8 pg (25.0-35.0); MCHC 31.5 g/dL (31.0-37.0); MCV 85.3 fL (80.0-100.0); Mean Platelet Volume 6.7; Monocytes # (A) 0.3 k/uL (0-1.0); Monocytes % (A) 6 %; Neutrophils % (A) 79 %; RBC 4.22 m/uL (4.30-5.90); RDW 15.5 % (11.5-15.5); WBC 5.1 k/uL (3.8-10.6); WBC (Perox) 5.37
[2017-06-15 17:16] LABS: ALT 25 U/L (21-72); AST 27 U/L (17-59); Alkaline Phosphatase 161 U/L (38-126); Anion Gap 16 mmol/L; Blood Urea Nitrogen 14 mg/dL (9-20); Calcium 9.8 mg/dL (8.4-10.2); Carbon Dioxide 18 mmol/L (22-30); Chloride 107 mmol/L (98-107); Glucose 105 mg/dL (74-99); Magnesium 1.8 mg/dL (1.6-2.3); Non-African American GFR(MDRD) >60 (>60 ml/min/1.73 sqM); Potassium 3.9 mmol/L (3.5-5.1); Sodium 141 mmol/L (137-145); Total Bilirubin 0.6 mg/dL (0.2-1.3); Total Protein 7.6 g/dL (6.3-8.2)
[2017-06-15 17:18] LABS: INR 1.1 (<1.2); Partial Thromboplastin Time 23.3 sec (22.0-30.0); Prothrombin Time 10.9 sec (9.0-12.0)
[2017-06-15 17:26] LABS: Creatine Kinase 57 U/L (55-170)
[2017-06-15 17:39] LABS: Creatine Kinase MB 0.7 ng/mL (0.0-2.4); Troponin I <0.012 ng/mL (0.000-0.034)
[2017-06-15] MEDS ORDERED: HYDROmorphone 1 MG/ML 1 ML SYRINGE IVP STA (18:00)
[2017-06-15] MEDS ORDERED: FAMOTIDINE 20 MG/2 ML VIAL IV STA (18:00)
[2017-06-15] MEDS ORDERED: ONDANSETRON 4 MG/2 ML VIAL IVP STA (18:00)
[2017-06-15] MEDS ORDERED: LORazepam 2 MG/ML SYRINGE IV STA (18:00)
[2017-06-15 19:00] VITALS: BP 142/84; PULSE 96; TEMP 98
== END 2017-06-15 19:00 | disposition home or self-care (01) ==
LOC: EC 14:54
DX: R07.9 Chest pain, unspecified (principal); R00.0 Tachycardia, unspecified; E78.5 Hyperlipidemia, unspecified; I10 Essential (primary) hypertension; Z95.5 Presence of coronary angioplasty implant and graft; Z88.5 Allergy status to narcotic agent; Z88.6 Allergy status to analgesic agent; Z79.82 Long term (current) use of aspirin; Z79.899 Other long term (current) drug therapy; Z87.891 Personal history of nicotine dependence
CPT/HCPCS: 99285; 96374; 96375 ×4; 96361 ×3; 36415; 93005; 80053; 82550; 82553; 83690; 83735; 84484; 85025; 85610; 85730; J2060; J2270; J2405; J1170

== ENCOUNTER 2017-10-10 14:08 | Observation (INO) | payer MEDICARE, OTHER ==
--- NOTE | 2017-10-10 14:19 | ED ---
General Adult HPI - General Stated complaint: Chest Pain Time Seen by Provider: 10/10/17 14:19 - History of Present Illness Initial comments: Lowell Johnson is a 61-year-old -Israeli male with past medical history coronary artery disease who presents to the emergency department for evaluation of chest pressure and shortness of breath. Patient reports that he has been experiencing vague nausea for the past 2 days, he reports that this morning he ate breakfast and subsequently had an episode of vomiting. Afterwards he developed a sharp stabbing pain in his chest which is associated with a constant dull crushing pain which he describes as feeling as though there is pressure or somebody standing on his chest. Patient reports he's had frequent episodes of chest pain similar to this. Patient reports that at the onset of the pain he became very sweaty, lightheaded and short of breath. That time he decided to call 911 to transport him to the hospital for evaluation. En route to the hospital he received chewable aspirin which he tolerated well. Patient declined nitroglycerin as he has had this in the past and it causes severe headaches. Patient has a history of an CO last year, he was subsequently stented. He follows with a cathode ray tube salvage processor regularly. Patient does report that in April of this year he had a elective surgical procedure on his back, at that time he was advised to hold his oral anticoagulation for 7 days. Patient reports that he did not understand the instructions and subsequently did not restart his oral anticoagulation medicine for approximately 3 months. He has since followed up with his cathode ray tube salvage processor who his advised him that he needs to take his oral anticoagulant daily. Patient reports that since approximately July he's been compliant with his medication. Patient denies any recent fevers, chills, headaches. He does report nausea and a single episode of nonbloody nonbilious emesis. He denies any change in bowel habits but does note that he feels his urine has looked darker recently. He denies any dysuria, hematuria or urinary frequency. Denies any new rashes, swelling in his arms or legs, numbness in his arms or legs. He does express concern that has difficult IV access and does not want to be stuck multiple times. - Related Data Home Medications Medication Instructions Recorded Confirmed Carisoprodol [Soma] 350 mg PO TID PRN 12/19/15 10/10/17 HYDROmorphone HCL 4 mg PO QID PRN 05/27/16 10/10/17 Diazepam 10 mg PO HS 10/04/16 10/10/17 Aspirin 81 mg PO DAILY 01/21/17 10/10/17 Carvedilol 25 mg PO BID 01/21/17 10/10/17 Lisinopril [Zestril] 20 mg PO Q12H 01/21/17 10/10/17 Fluticasone Nasal [place] [Flonase 1 spray EA NOSTRIL DAILY 04/20/17 10/10/17 Nasal [place]] Methocarbamol [Robaxin] 500 mg PO TID 10/10/17 10/10/17 Morphine Sulfate ER [Ms Contin 30 mg PO TID 10/10/17 10/10/17 30Mg] Previous Rx's Medication Instructions Recorded Prasugrel [Effient] 10 mg PO DAILY #30 tab 11/22/16 Nitroglycerin Sl Tabs [Nitrostat] 0.4 mg SUBLINGUAL Q5M PRN #50 tab 04/22/17 cloNIDine HCL [Catapres] 0.2 mg PO BID #60 tab 04/22/17 Allergies Allergy/AdvReac Type Severity Reaction Status Date / Time ibuprofen [From Motrin] Allergy Rash/Hives Verified 10/10/17 15:15 ketorolac tromethamine Allergy Rash/Hives Verified 10/10/17 15:15 [From Toradol] Review of Systems ROS Statement: Those systems with pertinent positive or pertinent negative responses have been documented in the HPI. ROS Other: All systems not noted in ROS Statement are negative. Constitutional: Denies: fever, chills Eyes: Denies: eye pain ENT: Denies: throat pain Respiratory: Reports: dyspnea. Denies: cough Cardiovascular: Reports: chest pain. Denies: edema, syncope Endocrine: Denies: fatigue Gastrointestinal: Reports: nausea, vomiting. Denies: abdominal pain, diarrhea, constipation, hematemesis, melena, hematochezia Genitourinary: Denies: urgency, dysuria, frequency, hematuria, discharge Musculoskeletal: Reports: back pain (chronic) Skin: Denies: rash, lesions Neurological: Denies: headache, weakness Psychiatric: Denies: anxiety, depression Hematological/Lymphatic: Reports: easy bleeding, easy bruising (on anticoagulation ) Past Medical History Past Medical History: Chest Pain / Angina, Hyperlipidemia, Hypertension Additional Past Medical History / Comment(s): Other HX: CHRONIC BACK PAIN, chronic pain syndrome, migraines History of Any Multi-Drug Resistant Organisms: None Reported Past Surgical History: Back Surgery Additional Past Surgical History / Comment(s): Low back surgery, bilateral arm and bilateral thigh surgeries for brown recluse spider bites with infection, morphine pain pump insertion and removal due to infection. stents in october 2016 Past Anesthesia/Blood Transfusion Reactions: No Reported Reaction Additional Past Anesthesia/Blood Transfusion Reaction / Comment(s): Pt recieved blood after back surgery and tolerated it well. Past Psychological History: No Psychological Hx Reported Smoking Status: Former smoker Past Alcohol Use History: None Reported Past Drug Use History: None Reported - Past Family History Father Additional Family Medical History / Comment(s): Father had back problems. Mother Family Medical History: Hypertension, Myocardial Infarction (CO) Brother(s) Family Medical History: Cancer Additional Family Medical History / Comment(s): Leukemia General Exam Limitations: no limitations General appearance: alert, in no apparent distress Head exam: Present: atraumatic, normocephalic Eye exam: Present: normal appearance, PERRL, EOMI. Absent: scleral icterus, conjunctival injection ENT exam: Present: normal exam, normal oropharynx Neck exam: Present: normal inspection Respiratory exam: Present: normal lung sounds bilaterally. Absent: respiratory distress, wheezes, rales Cardiovascular Exam: Present: regular rate, normal rhythm, normal heart sounds. Absent: bradycardia, tachycardia, irregular rhythm, systolic murmur, diastolic murmur GI/Abdominal exam: Present: soft, normal bowel sounds. Absent: distended, tenderness, guarding, rebound, rigid Rectal exam: Present: deferred Extremities exam: Present: normal inspection, full ROM. Absent: pedal edema Back exam: Present: normal inspection Neurological exam: Present: alert, oriented X3 Psychiatric exam: Present: normal affect, normal mood Skin exam: Present: warm, dry, intact Course Vital Signs 10/10/17 10/10/17 14:14 16:33 Temperature 98.7 F Pulse Rate 95 85 Respiratory 20 16 Rate Blood Pressure 123/86 149/87 O2 Sat by Pulse 97 95 Oximetry - Reevaluation(s) Reevaluation #1: Patient reevaluated, still complains of mild discomfort in his left chest and nausea. Continues to decline nitro for chest pain. 11/18/17 16:40 EKG Findings - EKG Comments: EKG Findings:: EKG at 14:10 rate 90, rhythm normal sinus, axis normal, intervals normal, no acute ST elevations or depressions. No evidence of acute ischemia or infarction. Noted to have Q waves consistent with previous myocardial infarction. Noted to have abnormal T waves consistent with left atrial enlargement. Medical Decision Making - Medical Decision Making Patient was seen and evaluated, history was obtained from the patient and review of medical record Patient presenting with onset of left-sided chest pressure with stabbing chest pain which began around 11 AM Patient received ASA prior to arrival, patient declining nitro Labs, EKG, CXR ordered EKG - No acute findings Patient's HEART score 5 (moderately suspicious history, non-specific ECG changes , age, risk factors) Labs unremarkable Patient care was disussed with Dr. Aguilar who is familliar with patient due to patient's frequent visits to the ED, is familiar with patient's narcotic dependence and history of drug seeking behaviors, requests that patient be notified that he will not receive IV narcotic pain medication during this admission. Patient was advised of this, states he only wants to figure out what is going on. Patient states he will not request IV medications as long as he gets PO morphine and dilaudid which he reports he takes at home PAtient re-evaluated, reports continued chest discomfort but again declines any nitro. Admission orders placed - Lab Data Result diagrams: 10/10/17 14:55 10/10/17 14:55 Lab Results 10/10/17 10/10/17 10/10/17 Range/Units 14:55 14:55 14:55 WBC 4.9 (3.8-10.6) k/uL RBC 5.36 (4.30-5.90) m/uL Hgb 13.3 (13.0-17.5) gm/dL Hct 42.9 (39.0-53.0) % MCV 80.0 (80.0-100.0) fL MCH 24.7 L (25.0-35.0) pg MCHC 30.9 L (31.0-37.0) g/dL RDW 20.0 H (11.5-15.5) % Plt Count 573 H (150-450) k/uL Neutrophils % 68 % Lymphocytes % 20 % Monocytes % 9 % Eosinophils % 1 % Basophils % 0 % Neutrophils # 3.3 (1.3-7.7) k/uL Lymphocytes # 1.0 (1.0-4.8) k/uL Monocytes # 0.5 (0-1.0) k/uL Eosinophils # 0.0 (0-0.7) k/uL Basophils # 0.0 (0-0.2) k/uL Hypochromasia Slight Anisocytosis Moderate Microcytosis Slight PT (9.0-12.0) sec INR (<1.2) APTT (22.0-30.0) sec Sodium 139 (137-145) mmol/L Potassium 3.7 (3.5-5.1) mmol/L Chloride 104 (98-107) mmol/L Carbon Dioxide 19 L (22-30) mmol/L Anion Gap 16 mmol/L BUN 34 H (9-20) mg/dL Creatinine 0.97 (0.66-1.25) mg/dL Est GFR (MDRD) Af Amer >60 (>60 ml/min/1.73 sqM) Est GFR (MDRD) Non-Af >60 (>60 ml/min/1.73 sqM) Glucose 109 H (74-99) mg/dL Calcium 9.7 (8.4-10.2) mg/dL Magnesium 2.2 (1.6-2.3) mg/dL Total Bilirubin 0.9 (0.2-1.3) mg/dL AST 14 L (17-59) U/L ALT 18 L (21-72) U/L Alkaline Phosphatase 100 (38-126) U/L Troponin I (0.000-0.034) ng/mL NT-Pro-B Natriuret Pep 127 pg/mL Total Protein 8.0 (6.3-8.2) g/dL Albumin 4.5 (3.5-5.0) g/dL Urine Color Urine Appearance (Clear) Urine pH (5.0-8.0) Ur Specific Ralph (1.001-1.035) Urine Protein (Negative) Urine Glucose (UA) (Negative) Urine Ketones (Negative) Urine Blood (Negative) Urine Nitrite (Negative) Urine Bilirubin (Negative) Urine Urobilinogen (<2.0) mg/dL Ur Leukocyte Esterase (Negative) Urine RBC (0-5) /hpf Urine WBC (0-5) /hpf Ur Squamous Epith Cells (0-4) /hpf Hyaline Casts (0-2) /lpf Urine Mucus (None) /hpf 10/10/17 10/10/17 10/10/17 Range/Units 14:55 14:55 15:45 WBC (3.8-10.6) k/uL RBC (4.30-5.90) m/uL Hgb (13.0-17.5) gm/dL Hct (39.0-53.0) % MCV (80.0-100.0) fL MCH (25.0-35.0) pg MCHC (31.0-37.0) g/dL RDW (11.5-15.5) % Plt Count (150-450) k/uL Neutrophils % % Lymphocytes % % Monocytes % % Eosinophils % % Basophils % % Neutrophils # (1.3-7.7) k/uL Lymphocytes # (1.0-4.8) k/uL Monocytes # (0-1.0) k/uL Eosinophils # (0-0.7) k/uL Basophils # (0-0.2) k/uL Hypochromasia Anisocytosis Microcytosis PT 12.1 H (9.0-12.0) sec INR 1.2 H (<1.2) APTT 24.8 (22.0-30.0) sec Sodium (137-145) mmol/L Potassium (3.5-5.1) mmol/L Chloride (98-107) mmol/L Carbon Dioxide (22-30) mmol/L Anion Gap mmol/L BUN (9-20) mg/dL Creatinine (0.66-1.25) mg/dL Est GFR (MDRD) Af Amer (>60 ml/min/1.73 sqM) Est GFR (MDRD) Non-Af (>60 ml/min/1.73 sqM) Glucose (74-99) mg/dL Calcium (8.4-10.2) mg/dL Magnesium (1.6-2.3) mg/dL Total Bilirubin (0.2-1.3) mg/dL AST (17-59) U/L ALT (21-72) U/L Alkaline Phosphatase (38-126) U/L Troponin I 0.022 (0.000-0.034) ng/mL NT-Pro-B Natriuret Pep pg/mL Total Protein (6.3-8.2) g/dL Albumin (3.5-5.0) g/dL Urine Color Yellow Urine Appearance Clear (Clear) Urine pH 5.5 (5.0-8.0) Ur Specific Ralph 1.027 (1.001-1.035) Urine Protein 1+ H (Negative) Urine Glucose (UA) Negative (Negative) Urine Ketones 2+ H (Negative) Urine Blood Small H (Negative) Urine Nitrite Negative (Negative) Urine Bilirubin 1+ H (Negative) Urine Urobilinogen 3.0 (<2.0) mg/dL Ur Leukocyte Esterase Negative (Negative) Urine RBC 3 (0-5) /hpf Urine WBC 1 (0-5) /hpf Ur Squamous Epith Cells <1 (0-4) /hpf Hyaline Casts 1 (0-2) /lpf Urine Mucus Occasional H (None) /hpf Disposition Clinical Impression: Chest pain Disposition: ADMITTED IP TO THIS HOSP Condition: Good Referrals: Lucian Mares MD [Primary Care Provider] - 1-2 days
--- NOTE | 2017-10-10 15:21 | XR ---
EXAMINATION TYPE: XR chest 2V DATE OF EXAM: 10/10/2017 COMPARISON: NONE HISTORY: Chest pain and dizziness and nausea. TECHNIQUE: Frontal and lateral views of the chest are obtained. FINDINGS: There is no focal air space opacity, pleural effusion, or pneumothorax seen. The cardiac silhouette size is within normal limits. The osseous structures are intact with mild multilevel deg enerative changes of the thoracic spine and of the acromio clavicular joints. Cholecystectomy clips a re noted within the right upper quadrant. Tortuosity of the ascending thoracic aorta descending thora cic aorta are unchanged from the prior 04/20/2017. IMPRESSION: 1. No acute cardiopulmonary process. 2. Ascending and descending thoracic aorta tortuosity are unchanged from the prior of 04/20/2017.
[2017-10-10 15:38] LABS: Anisocytosis Moderate; Basophils % (A) 0 %; Eosinophils % (A) 1 %; HCT 42.9 % (39.0-53.0); HGB 13.3 gm/dL (13.0-17.5); Hypochromasia Slight; Lymphocytes % (A) 20 %; MCH 24.7 pg (25.0-35.0); MCHC 30.9 g/dL (31.0-37.0); Mean Platelet Volume 6.7; Microcytosis Slight; Monocytes # (A) 0.5 k/uL (0-1.0); Monocytes % (A) 9 %; Neutrophils # (A) 3.3 k/uL (1.3-7.7); Neutrophils % (A) 68 %; Platelet Count 573 k/uL (150-450); RBC 5.36 m/uL (4.30-5.90); WBC 4.9 k/uL (3.8-10.6)
[2017-10-10 15:46] LABS: INR 1.2 (<1.2); Partial Thromboplastin Time 24.8 sec (22.0-30.0); Prothrombin Time 12.1 sec (9.0-12.0)
[2017-10-10 15:47] LABS: ALT 18 U/L (21-72); AST 14 U/L (17-59); Albumin 4.5 g/dL (3.5-5.0); Alkaline Phosphatase 100 U/L (38-126); Anion Gap 16 mmol/L; Blood Urea Nitrogen 34 mg/dL (9-20); Calcium 9.7 mg/dL (8.4-10.2); Carbon Dioxide 19 mmol/L (22-30); Chloride 104 mmol/L (98-107); Glucose 109 mg/dL (74-99); Magnesium 2.2 mg/dL (1.6-2.3); Potassium 3.7 mmol/L (3.5-5.1); Sodium 139 mmol/L (137-145); Total Bilirubin 0.9 mg/dL (0.2-1.3)
[2017-10-10 16:01] LABS: Appearance,Urine Clear (Clear); Bilirubin,Urine 1+ (Negative); Blood,Urine Small (Negative); Color,Urine Yellow; Glucose,Urine (UA) Negative (Negative); Hyaline Casts,Urine 1 /lpf (0-2); Ketones,Urine 2+ (Negative); Leukocyte Esterase,Urine Negative (Negative); Mucus,Urine Occasional /hpf; Nitrite,Urine Negative (Negative); PH, Urine 5.5 (5.0-8.0); Protein,Urine 1+ (Negative); RBC,Urine 3 /hpf (0-5); Specific Gravity,Urine 1.027 (1.001-1.035); Squamous Epithelial Cell,Urine <1 /hpf (0-4); WBC,Urine 1 /hpf (0-5)
[2017-10-10] MEDS ORDERED: MORPHINE SULFATE 4 MG/ML SYRINGE IVP STA (16:21)
[2017-10-10] MEDS ORDERED: ONDANSETRON 4 MG/2 ML VIAL IVP STA (16:22)
[2017-10-10] MEDS ORDERED: NALOXONE 0.4 MG/ML 1 ML VIAL IV PRN (17:58)
[2017-10-10] MEDS ORDERED: CARISOPRODOL 350 MG TAB PO PRN (18:00)
[2017-10-10] MEDS ORDERED: HYDROmorphone 2 MG TAB PO PRN (18:00)
[2017-10-10] MEDS: MORPHINE SULFATE ER 30 MG TABLET PO SCH ×2 (20:38→22:28)
[2017-10-10] MEDS: CARVEDILOL 12.5 MG TAB PO SCH (20:39)
[2017-10-10] MEDS: DIAZEPAM 5 MG TAB PO SCH (21:28)
[2017-10-10] MEDS: cloNIDine HCL 0.2 MG TAB PO SCH (21:28)
[2017-10-10] MEDS: LISINOPRIL 20 MG TAB PO SCH (21:28)
[2017-10-11] MEDS: HYDROmorphone 2 MG TAB PO PRN (01:53)
[2017-10-11] MEDS: ONDANSETRON 4 MG/2 ML VIAL IVP PRN (03:24)
[2017-10-11 04:52] LABS: Anisocytosis Moderate; Basophils % (A) 1 %; Eosinophils % (A) 0 %; HCT 41.1 % (39.0-53.0); HGB 12.1 gm/dL (13.0-17.5); Hypochromasia Marked; Lymphocytes # (A) 1.1 k/uL (1.0-4.8); Lymphocytes % (A) 30 %; MCH 24.4 pg (25.0-35.0); MCHC 29.4 g/dL (31.0-37.0); MCV 82.9 fL (80.0-100.0); Mean Platelet Volume 6.8; Microcytosis Slight; Monocytes # (A) 0.4 k/uL (0-1.0); Monocytes % (A) 12 %; Neutrophils # (A) 2.1 k/uL (1.3-7.7); Neutrophils % (A) 54 %; Platelet Count 500 k/uL (150-450); RBC 4.96 m/uL (4.30-5.90); RDW 20.3 % (11.5-15.5); WBC 3.8 k/uL (3.8-10.6)
[2017-10-11 05:13] LABS: Anion Gap 12 mmol/L; Blood Urea Nitrogen 28 mg/dL (9-20); Carbon Dioxide 20 mmol/L (22-30); Chloride 102 mmol/L (98-107); Glucose 105 mg/dL (74-99); Potassium 3.7 mmol/L (3.5-5.1); Sodium 134 mmol/L (137-145)
[2017-10-11] MEDS: CARVEDILOL 12.5 MG TAB PO SCH ×2 (06:30→17:21)
[2017-10-11] MEDS: MORPHINE SULFATE ER 30 MG TABLET PO SCH ×3 (09:35→21:18)
[2017-10-11] MEDS: PRASUGREL 10 MG TAB PO SCH (09:35)
[2017-10-11] MEDS: ASPIRIN 81 MG PO SCH (09:35)
[2017-10-11] MEDS: cloNIDine HCL 0.2 MG TAB PO SCH ×2 (09:36→23:43)
[2017-10-11] MEDS: LISINOPRIL 20 MG TAB PO SCH ×2 (09:36→20:54)
[2017-10-11] MEDS ORDERED: ALPRAZolam 0.25 MG TAB PO PRN (11:18)
[2017-10-11] MEDS ORDERED: ALPRAZolam 0.5 MG TAB PO PRN (11:18)
[2017-10-11] MEDS ORDERED: NITROGLYCERIN SL TABS 0.4 MG TAB SUBLINGUAL PRN (11:18)
[2017-10-11] MEDS ORDERED: ATORVASTATIN 80 MG TAB PO STA (11:21)
[2017-10-11] MEDS ORDERED: HEPARIN SODIUM,PORCINE 5,000 UNIT/ML 1 ML VIAL IV STA (11:25)
--- NOTE | 2017-10-11 12:30 | CONS ---
CONSULTATION This is a 61-year-old gentleman with a known history of CAD. He sees Dr. Felipe in the outpatient setting. He underwent stenting of a very complex LAD and diagonal bifurcation lesion that was performed by Dr. Montano in October of 2016. In January of 2016, it appears that he had a residual stenosis of nearly 70% in the diagonal branch, but was treated medically. In April, he went on to have a laminectomy at [facility] and saw another senior technical analyst there. The patient was supposed to take Effient 10 mg daily, but he stopped taking Effient when he had back surgery and resumed it only about 4 weeks ago. He came into the hospital with symptoms of chest discomfort yesterday in the afternoon, and complained of shortness of breath and also nondescript nausea. He complained of some burning and stabbing chest pain. Then he had a crushing feeling in the chest and three sets of troponins were unremarkable, but this morning after he had a chest pain, the EKG revealed a precordial new ST-T wave changes raising the possibility of ischemia in the LAD distribution. He did suffer from an MN apparently last year. The details of which are not available. At the time of my evaluation, he is complaining of some dullness and pressure in the chest he has felt all along this morning. The discomfort is pretty steady and the EKG now shows ST changes in precordial leads. The 3:30 am. Troponin was unremarkable. Clinical picture of chest discomfort and new EKG changes suggest that we are dealing with ischemia in the LAD distribution and therefore I am recommending coronary angiography and intervention. The rationale, risks, benefits, options were explained to the patient. He understands all details and wishes to proceed with the procedure. His other medical problems include hypertension and hyperlipidemia. He also has a low back pain, underwent a laminectomy and fusion surgery performed in April of this year. MEDICATIONS: At home include: Effient 10 mg daily, clonidine 0.2 mg b.i.d., Robaxin, Zestril 20 mg b.i.d., diazepam, carvedilol 25 mg b.i.d., aspirin 81 mg daily. ALLERGIES: ALLERGIC TO MOTRIN AND TORADOL. PHYSICAL EXAMINATION: His blood pressure is 136/80, pulse rate is about 84 per minute, regular. HEENT: Unremarkable. Fundus was not examined by me. Neck is supple. There is no JVD. I do not hear a carotid bruit. Heart exam reveals S1, S2 heard normally. No significant rub, murmur or gallop lungs are clear abdomen is soft, nontender. Lower extremities reveal normal pulses. No edema. Central nervous system is normal. EKG revealed a sinus mechanism and was within normal limits. When he came in at around 2:30 pm yesterday but this morning, [address] changes that are new and suggestive of ischemia in the LAD distribution. LABORATORY DATA: Suggests that his 3 sets of troponins are unremarkable. His BNP is normal and the renal function is normal. Platelet count is elevated, however, hemoglobin is 12.1. IMPRESSION: 1. Unstable angina/acute ischemic syndrome with possible ischemia in the LAD distribution. 2. Hypertension. 3. Hypercholesterolemia. 4. History of recent back surgery. 5. History of PCI of a very complex LAD and diagonal performed by Dr. Montano in October 2016. RECOMMENDATIONS: I am recommending intervention by way of cardiac catheterization and possible PCI. I explained to the patient, the rationale, risks, benefits, options and we will proceed with the procedure which will be performed today. Thank you very much for the consult. MMODL / IJN: [id number] /
[2017-10-11] MEDS ORDERED: LIDOCAINE 2% INJ 20 MG/ML (20 ML MDV) ONE (12:50)
[2017-10-11] MEDS ORDERED: IV FLUID CONTINUATION 1,000 ML IV ONE (12:57)
[2017-10-11] MEDS ORDERED: MIDAZOLAM 2 MG/2 ML VIAL ONE (13:00)
[2017-10-11] MEDS ORDERED: diphenhydrAMINE 50 MG/ML 1 ML VIAL ONE (13:01)
[2017-10-11] MEDS ORDERED: diphenhydrAMINE 50 MG/ML 1 ML VIAL IVP ONE (13:23)
[2017-10-11] MEDS: MIDAZOLAM 2 MG/2 ML VIAL IV ONE ×2 (13:23→13:27)
[2017-10-11] MEDS ORDERED: LIDOCAINE 2% INJ 20 MG/ML SQ ONE (13:35)
[2017-10-11] MEDS ORDERED: HYDROmorphone 2 MG/ML 1 ML SYRINGE ONE (13:52)
[2017-10-11] MEDS: HYDROmorphone 2 MG/ML 1 ML SYRINGE IVP ONE ×2 (13:54→14:46)
[2017-10-11] MEDS ORDERED: BIVALIRUDIN 250 MG in SODIUM CHLORIDE 0.9% 35 ML IV ONE (13:57)
[2017-10-11] MEDS ORDERED: BIVALIRUDIN BOLUS 250 MG/50 ML IV ONE (13:57)
[2017-10-11] MEDS: NITROGLYCERIN 1000MCG/10ML SYRINGE INTRACORON ONE ×2 (14:19→14:30)
[2017-10-11] MEDS ORDERED: IOHEXOL 350 MG/ML 125ML BOTTLE INJ ONE (14:40)
[2017-10-11] MEDS ORDERED: PRASUGREL 10 MG TAB ONE (14:42)
[2017-10-11] MEDS ORDERED: PRASUGREL 10 MG TAB PO ONE (14:46)
[2017-10-11] MEDS ORDERED: HYDROmorphone 0.5 MG/0.5 ML SYRINGE IVP STA (15:04)
[2017-10-11] MEDS: SODIUM CHLORIDE 0.9% 1,000 ML IV SCH (15:21)
--- NOTE | 2017-10-11 17:06 | LTR ---
DATE OF SERVICE: 10/11/[address] Mares: Thank you for the opportunity to participate in the care of Mr. Salomon Johnson. I am pleased to report you that this gentleman had excellent angiographic result. I expect that he should be discharged tomorrow if he remains stable. This is a complex bifurcation lesion and restenosis rates are much higher and I explained this to the patient as well. Hopefully, he will have a good long-term outcome. I dilated both the LAD and diagonal eventually with large balloons. Thanks again for your referral and please do call for questions. With kindest regards, Sincerely yours, MMODL / IJN: [id number] /
--- NOTE | 2017-10-11 17:06 | CC ---
CARDIAC CATHETERIZATION REPORT DATE OF SERVICE: 10/11/2017. PROCEDURES: 1. Left heart catheterization and coronary angiography. 2. PTCA and stenting of a complex bifurcation lesion involving a major diagonal branch of LAD. PERFORMED BY: Dr. Valerie Go. FINDINGS: 1. The patient's left ventricular end-diastolic pressure was 12-13 mmHg without gradient across aortic valve. 2. The patient has a left dominant system. 3. RCA is of fair caliber. No significant disease. 4. Circumflex has no significant disease. 5. LAD that was stented in the proximal/midportion has no significant disease. The diagonal branch that was stented has a 95% stenosis with somewhat sluggish flow. 6. PTCA and stenting was performed of the major diagonal branch with a 3.0 caliber 8 mm long PROMUS drug-eluting stent with excellent result. The LAD was also dilated with a 3.5 caliber NC Trek balloon of 12 mm length and again the final dilatation was that of the diagonal branch with a 3.0 NC trek balloon. Excellent angiographic result was achieved. SEDATION: Moderate conscious sedation was provided for a total duration of 78 minutes with a combination of intravenous Versed, Benadryl and Dilaudid. The patient's oxygen saturation was monitored closely. CLINICAL INFORMATION: Mr. Salomon Johnson is a 61-year-old gentleman with a known history of CAD, hypertension, and hyperlipidemia who underwent back surgery as recently as April of this year. He presented to the hospital for chest pain and this morning had new EKG changes and significant chest discomfort. Troponin remained unremarkable. He was advised cardiac catheterization given the fact he underwent a bifurcation lesion stenting performed in October with a repeat cardiac cath in January of this year. The risks, benefits, options, rationale were discussed with the patient and as well as his over the telephone. PROCEDURE NOTE: Under local anesthesia and strict aseptic precautions, a 6-Togolese introducer was placed in the right femoral artery. Using standard Angie catheters I performed coronary angiography and a pigtail catheter was used to check LV pressures. Subsequently, I noted that this patient had a significant lesion involving a major diagonal branch. I performed stenting of this vessel. The patient was given Angiomax bolus and infusion as per protocol. He already received aspirin and Plavix but he received an additional 10 mg of Effient was given today. The patient received Angiomax bolus and infusion as per protocol. I used an XB LAD 3.5 guide catheter to cannulate the left coronary artery. A Choice PT wire was used to cross the lesion in the diagonal branch and wire was kept distally in the diagonal branch beyond the lesion. A run-through wire was used to cross the LAD at the site of diagonal origin and kept distally. I performed a dilatation of the diagonal branch with a 2.5 caliber 8 mm long, NC trek balloon. I then deployed a 3.0 caliber 8 mm long PROMUS stent. The proximal end of the stent was actually a little bit in the LAD. The distal stent very well covered the lesion. The stent was deployed at 12 atmospheres. Patient had an excellent angiographic result, but there was a very mild compromise of the LAD. I then addressed the LAD by using a 3.5 caliber 12 mm long NC trek balloon and over the run-through wire, i.e., inflated up to 12 atmospheres. The final inflation was then given of the diagonal lesion with a 3.0 caliber 8 mm long NC trek balloon. I did not do simultaneous inflations. I used a 6-Togolese catheter and therefore I used separate inflations for both vessels. Excellent angiographic result without complication was achieved. Patient had chest pain and ST elevation in 1 and aVL with diagonal dilatation. With the LAD dilatation, he did have ST elevation anterior leads. The patient was chest pain free. EKG showed remarkable improvement. The sheath was then taken out and a Perclose device used to secure hemostasis. There was some hematoma even before Perclose was placed. I therefore put a Femstop which she will be on for 3 hours. Results were discussed with the patient at length. Restenosis rates are higher than usual, and this was again explained to him. I also called the patient's on the telephone and spoke to her. Excellent angiographic result without complication was achieved and patient was sent to the room in a stable condition. MMODL / IJN: [id number] /
[2017-10-11] MEDS: DIAZEPAM 5 MG TAB PO SCH (20:53)
[2017-10-12] MEDS: HYDROmorphone 2 MG TAB PO PRN ×3 (01:47→21:24)
[2017-10-12] MEDS: SODIUM CHLORIDE 0.9% 1,000 ML IV SCH (05:29)
[2017-10-12] MEDS: ONDANSETRON 4 MG/2 ML VIAL IVP PRN (06:13)
[2017-10-12 06:24] LABS: Anisocytosis Moderate; Basophils % (A) 0 %; Eosinophils % (A) 0 %; HCT 35.6 % (39.0-53.0); HGB 10.5 gm/dL (13.0-17.5); Hypochromasia Marked; Lymphocytes # (A) 1.1 k/uL (1.0-4.8); Lymphocytes % (A) 24 %; MCH 24.8 pg (25.0-35.0); MCHC 29.5 g/dL (31.0-37.0); MCV 84.1 fL (80.0-100.0); Mean Platelet Volume 6.9; Microcytosis Slight; Monocytes # (A) 0.3 k/uL (0-1.0); Monocytes % (A) 7 %; Neutrophils # (A) 3.1 k/uL (1.3-7.7); Neutrophils % (A) 67 %; Platelet Count 380 k/uL (150-450); RBC 4.23 m/uL (4.30-5.90); RDW 20.1 % (11.5-15.5); WBC 4.6 k/uL (3.8-10.6)
[2017-10-12 06:39] LABS: Anion Gap 9 mmol/L; Blood Urea Nitrogen 19 mg/dL (9-20); Calcium 8.5 mg/dL (8.4-10.2); Carbon Dioxide 18 mmol/L (22-30); Chloride 106 mmol/L (98-107); Glucose 122 mg/dL (74-99); Potassium 3.3 mmol/L (3.5-5.1); Sodium 133 mmol/L (137-145)
--- NOTE | 2017-10-12 07:52 | P.DS ---
Providers Date of admission: 10/10/17 17:58 Attending physician: Lucian Mares Consults: 10/11/17 06:44 Consult Physician Routine Consulting Provider: Fannie Go Consult Reason/Comments: Chest Pain Do you want consulting provider notified?: Yes Primary care physician: Lucian Mares Hospital Course: This discharge summary 7-year-old black male with known history of chest pain. He ended up having cardiac catheterization which did require stenting. The patient seems fatigued but we'll discharge once cleared by cardiology. The patient has been told about blood thinning precautions. He'll follow-up with me in about one week. Patient Condition at Discharge: Good Plan - Discharge Summary Discharge Rx Participant: No New Discharge Prescriptions: New Atorvastatin [Lipitor] 80 mg PO HS #30 tab Nitroglycerin Sl Tabs [Nitrostat] 0.4 mg SUBLINGUAL Q5M PRN #0 tab PRN Reason: Chest Pain Continue Carisoprodol [Soma] 350 mg PO TID PRN PRN Reason: Muscle Spasm HYDROmorphone HCL 4 mg PO QID PRN PRN Reason: Breakthrough Pain Diazepam 10 mg PO HS Lisinopril [Zestril] 20 mg PO Q12H Aspirin 81 mg PO DAILY Carvedilol 25 mg PO BID Fluticasone Nasal [place] [Flonase Nasal [place]] 1 spray EA NOSTRIL DAILY cloNIDine HCL [Catapres] 0.2 mg PO BID #60 tab Nitroglycerin Sl Tabs [Nitrostat] 0.4 mg SUBLINGUAL Q5M PRN #50 tab PRN Reason: Chest Pain Methocarbamol [Robaxin] 500 mg PO TID Morphine Sulfate ER [Ms Contin] 30 mg PO TID Prasugrel [Effient] 10 mg PO DAILY #30 tab Discharge Medication List Carisoprodol [Soma] 350 mg PO TID PRN 12/19/15 [History] HYDROmorphone HCL 4 mg PO QID PRN 05/27/16 [History] Diazepam 10 mg PO HS 10/04/16 [History] Aspirin 81 mg PO DAILY 01/21/17 [History] Carvedilol 25 mg PO BID 01/21/17 [History] Lisinopril [Zestril] 20 mg PO Q12H 01/21/17 [History] Fluticasone Nasal [place] [Flonase Nasal [place]] 1 spray EA NOSTRIL DAILY 04/20/17 [History] Nitroglycerin Sl Tabs [Nitrostat] 0.4 mg SUBLINGUAL Q5M PRN #50 tab 04/22/17 [Rx ] cloNIDine HCL [Catapres] 0.2 mg PO BID #60 tab 04/22/17 [Rx] Methocarbamol [Robaxin] 500 mg PO TID 10/10/17 [History] Morphine Sulfate ER [Ms Contin] 30 mg PO TID 10/10/17 [History] Atorvastatin [Lipitor] 80 mg PO HS #30 tab 10/12/17 [Rx] Nitroglycerin Sl Tabs [Nitrostat] 0.4 mg SUBLINGUAL Q5M PRN #0 tab 10/12/17 [Rx] Prasugrel [Effient] 10 mg PO DAILY #30 tab 10/12/17 [Rx] Follow up Appointment(s)/Referral(s): Lucian Mares MD [Primary Care Provider] - 1 Week
[2017-10-12] MEDS: CARVEDILOL 12.5 MG TAB PO SCH ×2 (08:34→17:18)
[2017-10-12] MEDS: cloNIDine HCL 0.2 MG TAB PO SCH (08:35)
[2017-10-12] MEDS: PRASUGREL 10 MG TAB PO SCH (08:41)
[2017-10-12] MEDS: ASPIRIN 81 MG PO SCH (08:41)
[2017-10-12] MEDS: LISINOPRIL 20 MG TAB PO SCH (08:41)
[2017-10-12] MEDS: MORPHINE SULFATE ER 30 MG TABLET PO SCH ×3 (08:41→22:31)
[2017-10-12] MEDS ORDERED: DIAZEPAM 5 MG TAB PO SCH (09:24)
[2017-10-12 11:51] VITALS: BMI 24.0
--- NOTE | 2017-10-12 15:10 | PN ---
PROGRESS NOTE I performed a complex bifurcation and stenting of a diagonal branch. This morning he is doing well. He had some oozing from the right groin, but this seems to have settled down. Plan is to increase activity and hopefully discharge him tomorrow. His vital signs were stable. EKG and labs are excellent. S1-S2 heard normally. Lungs are clear. Abdomen and lower extremity exam is unchanged. Plan is to keep him one more day in the hospital and discharge him tomorrow. Will increase activity today. Same medications. MMODL / IJN: [id number] /
[2017-10-12 15:13] VITALS: RESP 16
--- NOTE | 2017-10-12 15:37 | P.HPIM ---
History of Present Illness H&P Date: 10/11/17 61-year-old the male with a history of coronary disease came in with complaints of chest pain mostly in the retrosternal sharp pain patient had history of coronary artery disease the past with stenting of diagonal branch and the apparently stopped taking his antiplatelet medications. Patient was discharged from my service from [facility] couple days before this hospitalization at the time he did never informed that he stopped taking his medications patient was continued on his home medications at the time patient was complaining of abdominal pain, which completely resolved by the time I valid to the patient patient was admitted couple days before that and patient was discharged on Prilosec did well came back with the stabbing chest pain and burning sensation in the retrosternal area. Patient is scheduled to go cardiac catheterization considering his EKG changes with some ST-T wave changes in the anterolateral leads and noncompliance with his medications and previous coronary artery disease history. Review of Systems REVIEW OF SYSTEMS: CONSTITUTIONAL: No fever, no malaise, no fatigue. HEENT: No recent visual problems or hearing problems. Denied any sore throat. CARDIOVASCULAR: No orthopnea, PND, no palpitations, no syncope. PULMONARY: No shortness of breath, no cough, no hemoptysis. GASTROINTESTINAL: No diarrhea, no nausea, no vomiting, no abdominal pain. Normoactive bowel sounds. NEUROLOGICAL: No headaches, no weakness, no numbness. HEMATOLOGICAL: Denies any bleeding or petechiae. GENITOURINARY: Denies any burning micturition, frequency, or urgency. MUSCULOSKELETAL/RHEUMATOLOGICAL: Denies any joint pain, swelling, or any muscle pain. ENDOCRINE: Denies any polyuria or polydipsia. The rest of the 14-point review of systems is negative. Past Medical History Past Medical History: Chest Pain / Angina, Hyperlipidemia, Hypertension Additional Past Medical History / Comment(s): Other HX: CHRONIC BACK PAIN, chronic pain syndrome, migraines History of Any Multi-Drug Resistant Organisms: None Reported Past Surgical History: Back Surgery Additional Past Surgical History / Comment(s): Low back surgery, bilateral arm and bilateral thigh surgeries for brown recluse spider bites with infection, morphine pain pump insertion and removal due to infection. stents in october 2016 Past Anesthesia/Blood Transfusion Reactions: No Reported Reaction Additional Past Anesthesia/Blood Transfusion Reaction / Comment(s): Pt recieved blood after back surgery and tolerated it well. Past Psychological History: No Psychological Hx Reported Additional Psychological History / Comment(s): Pt resides with his . He is fairly independent. He uses a cane/walker to ambulate. Smoking Status: Former smoker Past Alcohol Use History: None Reported Past Drug Use History: None Reported - Past Family History Father Additional Family Medical History / Comment(s): Father had back problems. Mother Family Medical History: Hypertension, Myocardial Infarction ([place]) Brother(s) Family Medical History: Cancer Additional Family Medical History / Comment(s): Leukemia Medications and Allergies Home Medications Medication Instructions Recorded Confirmed Type Carisoprodol [Soma] 350 mg PO TID PRN 12/19/15 10/10/17 History HYDROmorphone HCL 4 mg PO QID PRN 05/27/16 10/10/17 History Diazepam 10 mg PO HS 10/04/16 10/10/17 History Aspirin 81 mg PO DAILY 01/21/17 10/10/17 History Carvedilol 25 mg PO BID 01/21/17 10/10/17 History Lisinopril [Zestril] 20 mg PO Q12H 01/21/17 10/10/17 History Fluticasone Nasal [place] [Flonase 1 spray EA NOSTRIL DAILY 04/20/17 10/10/17 History Nasal [place]] Nitroglycerin Sl Tabs [Nitrostat] 0.4 mg SUBLINGUAL Q5M PRN #50 tab 04/22/17 Rx cloNIDine HCL [Catapres] 0.2 mg PO BID #60 tab 04/22/17 10/10/17 Rx Methocarbamol [Robaxin] 500 mg PO TID 10/10/17 10/10/17 History Morphine Sulfate ER [Ms Contin] 30 mg PO TID 10/10/17 10/10/17 History Atorvastatin [Lipitor] 80 mg PO HS #30 tab 10/12/17 Rx Nitroglycerin Sl Tabs [Nitrostat] 0.4 mg SUBLINGUAL Q5M PRN #0 tab 10/12/17 Rx Prasugrel [Effient] 10 mg PO DAILY #30 tab 10/12/17 Rx Allergies Allergy/AdvReac Type Severity Reaction Status Date / Time ibuprofen [From Motrin] Allergy Rash/Hives Verified 10/10/17 15:15 ketorolac tromethamine Allergy Rash/Hives Verified 10/10/17 15:15 [From Toradol] Physical Exam Vitals: Vital Signs Temp Pulse Resp BP Pulse Ox 10/12/17 12:00 97.2 F L 78 16 102/62 99 10/12/17 08:00 97.5 F L 80 18 97/54 10/12/17 04:00 96.7 F L 80 18 88/49 99 10/12/17 01:48 101/54 10/12/17 00:00 98.0 F 82 18 85/57 98 10/11/17 20:00 96.9 F L 86 18 104/64 96 10/11/17 18:56 88 103/60 10/11/17 17:56 90 121/71 10/11/17 16:56 83 124/74 10/11/17 16:26 86 108/64 10/11/17 15:56 80 127/69 10/11/17 15:41 64 121/81 Intake and Output 10/12/17 10/12/17 10/12/17 06:59 14:59 22:59 Intake Total 600 180 Output Total 450 Balance 150 180 Intake: Intake, IV Titration 600 Amount Sodium Chloride 0.9% 1, 600 000 ml @ 75 mls/hr IV . [id number] [facility] Rx#:[id number] Oral 180 Output: Urine 450 Other: Voiding Method Urinal Urinal # Voids 0 Weight 78 kg 78 kg Patient Weight 10/13/17 06:59 Weight 78 kg Results CBC & Chem 7: 10/12/17 05:40 10/12/17 05:40 Labs: Abnormal Lab Results - Last 24 Hours (Table) 10/12/17 10/12/17 Range/Units 05:40 05:40 RBC 4.23 L (4.30-5.90) m/uL Hgb 10.5 L (13.0-17.5) gm/dL Hct 35.6 L (39.0-53.0) % MCH 24.8 L (25.0-35.0) pg MCHC 29.5 L (31.0-37.0) g/dL RDW 20.1 H (11.5-15.5) % Sodium 133 L (137-145) mmol/L Potassium 3.3 L (3.5-5.1) mmol/L Carbon Dioxide 18 L (22-30) mmol/L Glucose 122 H (74-99) mg/dL Thrombosis Risk Factor Assmnt - Choose All That Apply Any of the Below Risk Factors Present?: Yes Each Factor Represents 1 point: Age 41-60 years Other Risk Factors: No Other congenital or acquired thrombophilia - If yes, enter type in comment: No Thrombosis Risk Factor Assessment Total Risk Factor Score: 1 Thrombosis Risk Factor Assessment Level: Low Risk Assessment and Plan Plan: #1 chest pain with EKG changes: Previous history of coronary artery disease noncompressive medications patient is going for cardiac catheterization. #2 gases visual reflux disease #3 hyperlipidemia next #4 chronic low back pain Patient was started on dual antiplatelet therapy beta jerald going for cardiac catheterization
[2017-10-12] MEDS: POTASSIUM CHLORIDE ER 20 MEQ TAB.ER PO SCH ×2 (17:27→18:31)
[2017-10-12] MEDS ORDERED: LISINOPRIL 5 MG TAB PO SCH (21:00)
[2017-10-12] MEDS ORDERED: ATORVASTATIN 80 MG TAB PO SCH (21:00)
[2017-10-13] MEDS: HYDROmorphone 2 MG TAB PO PRN ×2 (02:47→09:28)
[2017-10-13] MEDS: PRASUGREL 10 MG TAB PO SCH (08:11)
[2017-10-13] MEDS: CARVEDILOL 12.5 MG TAB PO SCH (08:11)
[2017-10-13] MEDS: ASPIRIN 81 MG PO SCH (08:12)
[2017-10-13] MEDS: MORPHINE SULFATE ER 30 MG TABLET PO SCH ×2 (08:17→15:17)
[2017-10-13] MEDS ORDERED: Potassium Replacement Protocol 1 EACH MISC MISCELLANE PRN (08:21)
[2017-10-13] MEDS ORDERED: POTASSIUM CHLORIDE ER 20 MEQ TAB.ER PO SCH ×2 (09:00→10:00)
[2017-10-13 09:50] LABS: Anion Gap 10 mmol/L; Blood Urea Nitrogen 7 mg/dL (9-20); Calcium 8.6 mg/dL (8.4-10.2); Carbon Dioxide 18 mmol/L (22-30); Chloride 108 mmol/L (98-107); Glucose 113 mg/dL (74-99); Magnesium 1.7 mg/dL (1.6-2.3); Potassium 3.7 mmol/L (3.5-5.1); Sodium 136 mmol/L (137-145)
[2017-10-13] MEDS ORDERED: Magnesium Replacement Protocol 1 EACH MISC MISCELLANE PRN (09:57)
[2017-10-13] MEDS: MAGNESIUM SULFATE-D5W PMX 1 GM in DEXTROSE/WATER 1 100ML.BAG IVPB SCH ×2 (10:38→11:56)
[2017-10-13 11:54] VITALS: BP 119/77; PULSE 67; TEMP 97.2
--- NOTE | 2017-10-13 13:37 | US ---
EXAMINATION TYPE: US lower ext pseudo artery RT DATE OF EXAM: 10/13/2017 COMPARISON: NONE CLINICAL HISTORY: R/O PSEUDOANEURYSM OR AV FISTULA. Recent stent placement, right groin pain EXAM PERFORMED: Grayscale and color Doppler duplex imaging performed of the groin, post cardiac dulce ter to assess for pseudoaneurysm. SIDE PERFORMED: Right Color and Waveform Doppler performed to assess for the presence of pseudoaneurysm; Is there ultrasound evidence of a pseudoaneurysm: no Is there evidence of AV shunting: no Is there a fluid collection present: no There is no extraluminal blood flow, normal Doppler the site of patient's pain in the right groin. IMPRESSION: No evidence of pseudoaneurysm or arteriovenous fistula.
--- NOTE | 2017-10-13 16:22 | PCN ---
PROCEDURE NOTE This gentleman underwent stenting of the ostium of the diagonal branch and yesterday I kept him because of his groin pain. This morning he continues to have pain, but there is improvement. Ultrasound did not reveal any pseudoaneurysm or AV fistula. Plan is to increase activity. Discharge him and have him see Dr. Felipe in the office. Vital signs are stable. S1, S2 heard normally. Lungs are clear. Abdomen and lower extremities exam unchanged. The patient does not have any chest discomfort. MMODL / IJN: [id number] /
== END 2017-10-13 16:08 | disposition home or self-care (01) ==
LOC: EC 14:08 → 6SEL 17:58
PROVIDERS: ADMIT Family Medicine; ATTEND Family Medicine
DX: I25.110 Atherosclerotic heart disease of native coronary artery with unstable angina pectoris (principal); R10.30 Lower abdominal pain, unspecified; I25.2 Old myocardial infarction; Z95.5 Presence of coronary angioplasty implant and graft; Z79.899 Other long term (current) drug therapy; Z79.82 Long term (current) use of aspirin; Z79.51 Long term (current) use of inhaled steroids; Z79.891 Long term (current) use of opiate analgesic; Z79.02 Long term (current) use of antithrombotics/antiplatelets; Z88.6 Allergy status to analgesic agent; Z88.5 Allergy status to narcotic agent; G89.4 Chronic pain syndrome; M54.5 Low back pain; G43.909 Migraine, unspecified, not intractable, without status migrainosus; I10 Essential (primary) hypertension; E78.5 Hyperlipidemia, unspecified; Z87.891 Personal history of nicotine dependence; Z82.49 Family history of ischemic heart disease and other diseases of the circulatory system; K21.9 Gastro-esophageal reflux disease without esophagitis
CPT/HCPCS: 96375 ×2; 93005 ×3; 96374; 99285; 36415; 93458; 92921; 83880; 80053; 80048 ×3; 83735 ×2; 84484 ×2; 85025 ×3; 85610; 85730; 81001; 71020; 93975; 93926; G0378 ×4; C9600; C1769 ×4; C1887; C1725 ×3; C1894; C1874; C1760; J2001; J2250; J2270; J1170 ×2; J1200; J1644; J2405 ×3; J3475; J0583; Q9967

== ENCOUNTER 2017-10-16 09:54 | Emergency (ER) | payer MEDICARE, OTHER ==
[2017-10-16] MEDS ORDERED: MORPHINE SULFATE 2 MG/ML SYRINGE IVP STA (10:02)
[2017-10-16] MEDS ORDERED: SODIUM CHLORIDE 0.9% 1,000 ML IV STA (10:02)
--- NOTE | 2017-10-16 10:13 | ED ---
General Adult HPI - General Chief complaint: Chest Pain Stated complaint: chest discomfort Time Seen by Provider: 10/16/17 10:01 Source: patient, RN notes reviewed, old records reviewed Mode of arrival: ambulatory Limitations: no limitations - History of Present Illness Initial comments: This is a 7-year-old male to the ER for evaluation of chest pain. Patient presents for chest pain. Patient has history of heart disease, history of recent stent placement. Patient states he came to the emergency room to give him in regards to chest pain. Patient did come in the hospital today for prescription refill, with speaking with the pharmacist, slightly marginal, the ER and get checked out since he was and at the hospital. Patient denies shortness of breath chest pain is consistent just like his prior chest pain. Patient concerned over recent stent placement. - Related Data Home Medications Medication Instructions Recorded Confirmed Carisoprodol [Soma] 350 mg PO TID PRN 12/19/15 10/16/17 HYDROmorphone HCL 4 mg PO QID PRN 05/27/16 10/16/17 Diazepam 10 mg PO HS 10/04/16 10/16/17 Aspirin 81 mg PO DAILY 01/21/17 10/16/17 Carvedilol 25 mg PO BID 01/21/17 10/16/17 Fluticasone Nasal [place] [Flonase 1 spray EA NOSTRIL DAILY 04/20/17 10/16/17 Nasal [place]] Methocarbamol [Robaxin] 500 mg PO TID 10/10/17 10/16/17 Morphine Sulfate ER [Ms Contin] 30 mg PO TID 10/10/17 10/16/17 Pantoprazole Sodium [Protonix] 40 mg PO DAILY 10/16/17 10/16/17 Previous Rx's Medication Instructions Recorded Atorvastatin [Lipitor] 80 mg PO HS #30 tab 10/12/17 Prasugrel [Effient] 10 mg PO DAILY #30 tab 10/12/17 Lisinopril [Zestril] 5 mg PO HS #30 tab 10/13/17 Allergies Allergy/AdvReac Type Severity Reaction Status Date / Time ibuprofen [From Motrin] Allergy Rash/Hives Verified 10/16/17 10:28 ketorolac tromethamine Allergy Rash/Hives Verified 10/16/17 10:28 [From Toradol] Review of Systems ROS Statement: Those systems with pertinent positive or pertinent negative responses have been documented in the HPI. ROS Other: All systems not noted in ROS Statement are negative. Past Medical History Past Medical History: Chest Pain / Angina, Hyperlipidemia, Hypertension Additional Past Medical History / Comment(s): Other HX: CHRONIC BACK PAIN, chronic pain syndrome, migraines History of Any Multi-Drug Resistant Organisms: None Reported Past Surgical History: Back Surgery Additional Past Surgical History / Comment(s): Low back surgery, bilateral arm and bilateral thigh surgeries for brown recluse spider bites with infection, morphine pain pump insertion and removal due to infection. stents in october 2016 Past Anesthesia/Blood Transfusion Reactions: No Reported Reaction Additional Past Anesthesia/Blood Transfusion Reaction / Comment(s): Pt recieved blood after back surgery and tolerated it well. Past Psychological History: No Psychological Hx Reported Smoking Status: Former smoker Past Alcohol Use History: None Reported Past Drug Use History: None Reported - Past Family History Father Additional Family Medical History / Comment(s): Father had back problems. Mother Family Medical History: Hypertension, Myocardial Infarction ([place]) Brother(s) Family Medical History: Cancer Additional Family Medical History / Comment(s): Leukemia General Exam Limitations: no limitations General appearance: alert, in no apparent distress Head exam: Present: atraumatic, normocephalic, normal inspection Eye exam: Present: normal appearance, PERRL, EOMI. Absent: scleral icterus, conjunctival injection, periorbital swelling ENT exam: Present: normal exam, mucous membranes moist Neck exam: Present: normal inspection. Absent: tenderness, meningismus, lymphadenopathy Respiratory exam: Present: normal lung sounds bilaterally. Absent: respiratory distress, wheezes, rales, rhonchi, stridor Cardiovascular Exam: Present: regular rate, normal rhythm, normal heart sounds. Absent: systolic murmur, diastolic murmur, rubs, gallop, clicks GI/Abdominal exam: Present: soft, normal bowel sounds. Absent: distended, tenderness, guarding, rebound, rigid Extremities exam: Present: normal inspection, full ROM, normal capillary refill. Absent: tenderness, pedal edema, joint swelling, calf tenderness Back exam: Present: normal inspection Neurological exam: Present: alert, oriented X3, CN II-XII intact Psychiatric exam: Present: normal affect, normal mood Skin exam: Present: warm, dry, intact, normal color. Absent: rash Course Vital Signs 11/24/17 11/24/17 11/24/17 09:55 11:31 12:57 Temperature 97.1 F L Pulse Rate 74 72 51 L Respiratory 16 18 18 Rate Blood Pressure 185/103 157/101 144/92 O2 Sat by Pulse 100 100 98 Oximetry 10/16/17 10/16/17 14:08 15:39 Temperature Pulse Rate 69 71 Respiratory 18 18 Rate Blood Pressure 153/97 158/60 O2 Sat by Pulse 96 98 Oximetry - Reevaluation(s) Reevaluation #1: 10/16/17 14:52 Patient requesting multiple addition pain medication throughout ER stay Reevaluation #2: 10/16/17 14:52 Medical records reviewed including prior ER visit. Prior hospitalization and cath report Reevaluation #3: 10/16/17 14:[address] Navarro regarding patient, patient would not have restenosis at this point, they'll take years to develop, Reevaluation #4: 10/16/17 14:52 Patient's chest pain has been since stent placement, patient's chest pain is unchanged, improved with pain control, troponin is negative 2 EKG Findings - EKG Comments: EKG Findings:: EKG shows normal sinus rhythm rate of 71, NC 160, QRS 84, QTc 421 Medical Decision Making - Medical Decision Making 61 male to ER for evaluation of chest pain. History of history. Recent hospital admission no recent stent placement. Patient's chest pain is consistent, no EKG changes, troponin is negative 2. Patient does have recent heart catheterization. Patient can be discharged - Lab Data Result diagrams: 10/16/17 10:44 10/16/17 10:44 Lab Results 10/16/17 10/16/17 10/16/17 Range/Units 10:44 10:44 10:44 WBC 4.0 (3.8-10.6) k/uL RBC 4.34 (4.30-5.90) m/uL Hgb 10.9 L (13.0-17.5) gm/dL Hct 36.7 L (39.0-53.0) % MCV 84.6 (80.0-100.0) fL MCH 25.2 (25.0-35.0) pg MCHC 29.7 L (31.0-37.0) g/dL RDW 20.0 H (11.5-15.5) % Plt Count 385 (150-450) k/uL Neutrophils % 67 % Lymphocytes % 25 % Monocytes % 5 % Eosinophils % 1 % Basophils % 1 % Neutrophils # 2.6 (1.3-7.7) k/uL Lymphocytes # 1.0 (1.0-4.8) k/uL Monocytes # 0.2 (0-1.0) k/uL Eosinophils # 0.0 (0-0.7) k/uL Basophils # 0.0 (0-0.2) k/uL Hypochromasia Marked Anisocytosis Moderate Microcytosis Slight PT 10.5 (9.0-12.0) sec INR 1.0 (<1.2) APTT 26.2 (22.0-30.0) sec Sodium 138 (137-145) mmol/L Potassium 4.8 (3.5-5.1) mmol/L Chloride 102 (98-107) mmol/L Carbon Dioxide 25 (22-30) mmol/L Anion Gap 11 mmol/L BUN 8 L (9-20) mg/dL Creatinine 0.70 (0.66-1.25) mg/dL Est GFR (MDRD) Af Amer >60 (>60 ml/min/1.73 sqM) Est GFR (MDRD) Non-Af >60 (>60 ml/min/1.73 sqM) Glucose 102 H (74-99) mg/dL Calcium 9.3 (8.4-10.2) mg/dL Magnesium 2.1 (1.6-2.3) mg/dL Total Bilirubin 0.3 (0.2-1.3) mg/dL AST 15 L (17-59) U/L ALT 26 (21-72) U/L Alkaline Phosphatase 92 (38-126) U/L Total Creatine Kinase (55-170) U/L CK-MB (CK-2) (0.0-2.4) ng/mL CK-MB (CK-2) Rel Index Troponin I (0.000-0.034) ng/mL NT-Pro-B Natriuret Pep pg/mL Total Protein 7.1 (6.3-8.2) g/dL Albumin 4.3 (3.5-5.0) g/dL Lipase 24 (23-300) U/L 11/24/17 11/24/17 11/24/17 Range/Units 10:44 10:44 15:18 WBC (3.8-10.6) k/uL RBC (4.30-5.90) m/uL Hgb (13.0-17.5) gm/dL Hct (39.0-53.0) % MCV (80.0-100.0) fL MCH (25.0-35.0) pg MCHC (31.0-37.0) g/dL RDW (11.5-15.5) % Plt Count (150-450) k/uL Neutrophils % % Lymphocytes % % Monocytes % % Eosinophils % % Basophils % % Neutrophils # (1.3-7.7) k/uL Lymphocytes # (1.0-4.8) k/uL Monocytes # (0-1.0) k/uL Eosinophils # (0-0.7) k/uL Basophils # (0-0.2) k/uL Hypochromasia Anisocytosis Microcytosis PT (9.0-12.0) sec INR (<1.2) APTT (22.0-30.0) sec Sodium (137-145) mmol/L Potassium (3.5-5.1) mmol/L Chloride (98-107) mmol/L Carbon Dioxide (22-30) mmol/L Anion Gap mmol/L BUN (9-20) mg/dL Creatinine (0.66-1.25) mg/dL Est GFR (MDRD) Af Amer (>60 ml/min/1.73 sqM) Est GFR (MDRD) Non-Af (>60 ml/min/1.73 sqM) Glucose (74-99) mg/dL Calcium (8.4-10.2) mg/dL Magnesium (1.6-2.3) mg/dL Total Bilirubin (0.2-1.3) mg/dL AST (17-59) U/L ALT (21-72) U/L Alkaline Phosphatase (38-126) U/L Total Creatine Kinase 63 54 L (55-170) U/L CK-MB (CK-2) 0.7 0.5 (0.0-2.4) ng/mL CK-MB (CK-2) Rel Index 1.1 0.9 Troponin I <0.012 <0.012 (0.000-0.034) ng/mL NT-Pro-B Natriuret Pep 225 pg/mL Total Protein (6.3-8.2) g/dL Albumin (3.5-5.0) g/dL Lipase (23-300) U/L - Radiology Data Radiology results: report reviewed (Chest x-ray is negative), image reviewed Disposition Clinical Impression: Chest pain Disposition: HOME SELF-CARE Condition: Fair Instructions: Chest Pain (ED) Referrals: Lucian Mares MD [Primary Care Provider] - 1-2 days
[2017-10-16] MEDS ORDERED: MORPHINE SULFATE 4 MG/ML SYRINGE IVP PRN (10:36)
[2017-10-16] MEDS ORDERED: ASPIRIN 81 MG PO STA (10:36)
[2017-10-16] MEDS ORDERED: NITROGLYCERIN SL TABS 0.4 MG TAB SUBLINGUAL PRN (10:36)
[2017-10-16] MEDS ORDERED: HYDROmorphone 2 MG/ML 1 ML SYRINGE IM STA (11:17)
[2017-10-16 11:32] VITALS: RESP 18
[2017-10-16 11:33] LABS: Anisocytosis Moderate; Basophils % (A) 1 %; CH 24.9; CHCM 29.5; Eosinophils % (A) 1 %; HCT 36.7 % (39.0-53.0); HDW 2.43; HGB 10.9 gm/dL (13.0-17.5); Hypochromasia Marked; Luc # (Auto) 0.07; Luc % (Auto) 2; Lymphocytes % (A) 25 %; MCH 25.2 pg (25.0-35.0); MCHC 29.7 g/dL (31.0-37.0); MCV 84.6 fL (80.0-100.0); Mean Platelet Volume 6.8; Microcytosis Slight; Monocytes # (A) 0.2 k/uL (0-1.0); Monocytes % (A) 5 %; Neutrophils # (A) 2.6 k/uL (1.3-7.7); Neutrophils % (A) 67 %; RBC 4.34 m/uL (4.30-5.90); WBC (Perox) 4.37
[2017-10-16 11:40] LABS: Partial Thromboplastin Time 26.2 sec (22.0-30.0); Prothrombin Time 10.5 sec (9.0-12.0)
[2017-10-16 11:53] LABS: ALT 26 U/L (21-72); AST 15 U/L (17-59); Alkaline Phosphatase 92 U/L (38-126); Anion Gap 11 mmol/L; Blood Urea Nitrogen 8 mg/dL (9-20); Calcium 9.3 mg/dL (8.4-10.2); Carbon Dioxide 25 mmol/L (22-30); Chloride 102 mmol/L (98-107); Glucose 102 mg/dL (74-99); Magnesium 2.1 mg/dL (1.6-2.3); Non-African American GFR(MDRD) >60 (>60 ml/min/1.73 sqM); Potassium 4.8 mmol/L (3.5-5.1); Sodium 138 mmol/L (137-145); Total Bilirubin 0.3 mg/dL (0.2-1.3); Total Protein 7.1 g/dL (6.3-8.2)
[2017-10-16 11:54] LABS: Creatine Kinase 63 U/L (55-170)
--- NOTE | 2017-10-16 12:02 | XR ---
EXAMINATION TYPE: XR chest 2V DATE OF EXAM: 10/16/2017 COMPARISON: 10/10/2017 TECHNIQUE: PA and lateral views submitted. HISTORY: Chest pain FINDINGS: The lungs are clear and there is no pneumothorax, pleural effusion, or focal pneumonia. Prominence of the ascending aorta noted. Arthropathy of the shoulders. Hyperinflation suggests COPD. Surgical cl ips in the abdomen. IMPRESSION: 1. No acute process. Prominence of the ascending aorta correlate clinically. Previous CT scan of 10/24 demonstrated no sizable evidence of aneurysm.
[2017-10-16 12:07] LABS: Creatine Kinase MB 0.7 ng/mL (0.0-2.4); Troponin I <0.012 ng/mL (0.000-0.034)
[2017-10-16] MEDS ORDERED: HYDROcodone/APAP 5-325MG 1 EACH TAB PO STA (13:57)
[2017-10-16] MEDS ORDERED: ONDANSETRON ODT 4 MG TAB PO STA (14:06)
[2017-10-16 15:53] LABS: Creatine Kinase 54 U/L (55-170)
[2017-10-16 16:05] LABS: Creatine Kinase MB 0.5 ng/mL (0.0-2.4); Troponin I <0.012 ng/mL (0.000-0.034)
[2017-10-16 16:16] VITALS: BP 167/97; PULSE 67; TEMP 97
[2017-10-17] MEDS ORDERED: ASPIRIN 325 MG TAB PO SCH (09:00)
== END 2017-10-16 16:35 | disposition home or self-care (01) ==
LOC: EC 09:54
DX: R07.9 Chest pain, unspecified (principal); I10 Essential (primary) hypertension; Z87.891 Personal history of nicotine dependence; Z82.49 Family history of ischemic heart disease and other diseases of the circulatory system; Z95.5 Presence of coronary angioplasty implant and graft; Z88.6 Allergy status to analgesic agent; Z79.51 Long term (current) use of inhaled steroids; Z79.891 Long term (current) use of opiate analgesic; Z79.82 Long term (current) use of aspirin; Z79.899 Other long term (current) drug therapy
CPT/HCPCS: 99285; 96372; 36415; 93005; 83880; 80053; 82550; 82553; 83690; 83735; 84484; 85025; 85610; 85730; 71020; J1170

== ENCOUNTER 2017-11-01 00:15 | Observation (INO) | payer MEDICARE, OTHER ==
--- NOTE | 2017-11-01 00:32 | ED ---
Chest Pain HPI - General Stated Complaint: chest pain Time Seen by Provider: 11/01/17 00:25 Source: patient - History of Present Illness Initial Comments: Patient is 61-year-old man who presents with left-sided chest pain associated with some diaphoresis as well as feeling nauseated and he states having an episode of vomiting. Patient was given nitroglycerin and states that the pain got little better. Currently rates the pain at moderate intensity. Describes as an aching. He has not noted other worsening or relieving factors. Patient does state it is similar to pain he was having about a month ago before he had a stent placed. Patient does state that he has been taking his medications as directed. MD Complaint: chest pain -: hour(s) Onset: during rest Pain Location: left chest Pain Radiation: none Severity: moderate Quality: aching Consistency: constant Improves With: nitroglycerin Worsens With: nothing Anginal Symptoms: nausea, vomiting, diaphoresis Treatments Prior to Arrival: aspirin, nitroglycerin - Related Data Home Medications Medication Instructions Recorded Confirmed Carisoprodol [Soma] 350 mg PO TID PRN 12/19/15 11/01/17 HYDROmorphone HCL 4 mg PO QID PRN 05/27/16 11/01/17 Diazepam 10 mg PO HS 10/04/16 11/01/17 Aspirin 81 mg PO DAILY 01/21/17 11/01/17 Carvedilol 25 mg PO BID 01/21/17 11/01/17 Fluticasone Nasal [place] [Flonase 1 spray EA NOSTRIL DAILY 04/20/17 11/01/17 Nasal [place]] Methocarbamol [Robaxin] 500 mg PO TID 10/10/17 11/01/17 Morphine Sulfate ER [Ms Contin] 30 mg PO TID 10/10/17 11/01/17 Pantoprazole Sodium [Protonix] 40 mg PO DAILY 10/16/17 11/01/17 Previous Rx's Medication Instructions Recorded Atorvastatin [Lipitor] 80 mg PO HS #30 tab 10/12/17 Prasugrel [Effient] 10 mg PO DAILY #30 tab 10/12/17 Lisinopril [Zestril] 5 mg PO HS #30 tab 10/13/17 Allergies Allergy/AdvReac Type Severity Reaction Status Date / Time ibuprofen [From Motrin] Allergy Rash/Hives Verified 11/01/17 08:37 ketorolac tromethamine Allergy Rash/Hives Verified 11/01/17 08:37 [From Toradol] Review of Systems ROS Statement: Those systems with pertinent positive or pertinent negative responses have been documented in the HPI. ROS Other: All systems not noted in ROS Statement are negative. Constitutional: Denies: fever, chills Respiratory: Denies: cough, dyspnea Cardiovascular: Reports: chest pain. Denies: palpitations, edema Gastrointestinal: Reports: nausea, vomiting. Denies: abdominal pain Genitourinary: Denies: dysuria, hematuria Musculoskeletal: Denies: back pain Skin: Denies: rash, lesions Neurological: Denies: headache, weakness, numbness EKG Findings - EKG Results: EKG: interpreted by CHANDU RODRIGUEZ, sinus rhythm (Rate 85 bpm), normal axis, normal QRS, normal ST/T, no acute changes - [place], Pacemaker, Normal: Normal tracing: normal tracing Past Medical History Past Medical History: Chest Pain / Angina, Hyperlipidemia, Hypertension Additional Past Medical History / Comment(s): Other HX: CHRONIC BACK PAIN, chronic pain syndrome, migraines History of Any Multi-Drug Resistant Organisms: None Reported Past Surgical History: Back Surgery Additional Past Surgical History / Comment(s): Low back surgery, bilateral arm and bilateral thigh surgeries for brown recluse spider bites with infection, morphine pain pump insertion and removal due to infection. stents in october 2016 Past Anesthesia/Blood Transfusion Reactions: No Reported Reaction Additional Past Anesthesia/Blood Transfusion Reaction / Comment(s): Pt recieved blood after back surgery and tolerated it well. Past Psychological History: No Psychological Hx Reported Smoking Status: Former smoker Past Alcohol Use History: None Reported Past Drug Use History: None Reported - Past Family History Father Additional Family Medical History / Comment(s): Father had back problems. Mother Family Medical History: Hypertension, Myocardial Infarction ([place]) Brother(s) Family Medical History: Cancer Additional Family Medical History / Comment(s): Leukemia General Exam General appearance: alert, in no apparent distress Head exam: Present: atraumatic, normocephalic Eye exam: Present: normal appearance. Absent: scleral icterus, conjunctival injection Neck exam: Present: normal inspection, full ROM Respiratory exam: Present: normal lung sounds bilaterally. Absent: respiratory distress, wheezes, rales, rhonchi Cardiovascular Exam: Present: regular rate, normal rhythm, normal heart sounds. Absent: systolic murmur, diastolic murmur, rubs, gallop GI/Abdominal exam: Present: soft. Absent: distended, tenderness, guarding, rebound, rigid Extremities exam: Present: normal inspection, normal capillary refill. Absent: pedal edema, calf tenderness Back exam: Present: normal inspection. Absent: CVA tenderness (R), CVA tenderness (L) Neurological exam: Present: alert Skin exam: Present: warm, dry, intact, normal color. Absent: rash Course Vital Signs 11/01/17 11/01/17 11/01/17 00:43 01:10 01:11 Temperature 98.3 F Pulse Rate 88 86 Respiratory 18 20 20 Rate Blood Pressure 146/85 143/96 O2 Sat by Pulse 99 99 Oximetry 11/01/17 11/01/17 11/01/17 02:17 04:11 05:29 Temperature 98.1 F Pulse Rate 80 84 72 Respiratory 18 20 18 Rate Blood Pressure 130/99 151/92 136/89 O2 Sat by Pulse 100 100 98 Oximetry Chest Pain [facility] Patient is 61-year-old man with recent stent placement, who has pain similar to what he was experiencing prior to the stent. Will be admitted for cardiology evaluation. His initial workup is negative. Disposition Clinical Impression: Chest pain Disposition: ADMITTED IP TO THIS [facility] Condition: Fair
[2017-11-01] MEDS ORDERED: ASPIRIN 81 MG PO STA (00:45)
[2017-11-01] MEDS ORDERED: NITROGLYCERIN OINT 1 INCH/GM PACKET TOPICAL STA (00:46)
[2017-11-01 00:49] LABS: Anisocytosis Moderate; Basophils % (A) 1 %; CH 25.9; CHCM 30.7; Eosinophils # (A) 0.1 k/uL (0-0.7); Eosinophils % (A) 2 %; HCT 36.9 % (39.0-53.0); HDW 2.48; Hypochromasia Slight; Luc # (Auto) 0.06; Luc % (Auto) 2; Lymphocytes # (A) 1.5 k/uL (1.0-4.8); Lymphocytes % (A) 34 %; MCH 25.2 pg (25.0-35.0); MCHC 29.7 g/dL (31.0-37.0); Mean Platelet Volume 6.9; Microcytosis Slight; Monocytes # (A) 0.2 k/uL (0-1.0); Monocytes % (A) 6 %; Neutrophils # (A) 2.4 k/uL (1.3-7.7); Neutrophils % (A) 56 %; RBC 4.35 m/uL (4.30-5.90); RDW 20.3 % (11.5-15.5); WBC 4.2 k/uL (3.8-10.6); WBC (Perox) 4.38
--- NOTE | 2017-11-01 01:01 | XR ---
EXAMINATION TYPE: XR chest 2V DATE OF EXAM: 11/01/2017 COMPARISON: NONE HISTORY: Chest pain TECHNIQUE: Frontal and lateral views of the chest are obtained. FINDINGS: There is no heart failure nor confluent pneumonic infiltrate. Heart size is normal. There is no pleural effusion. There are chest leads. Bony thorax is intact. IMPRESSION: No active cardiopulmonary disease. No adverse change compared to old exam.
[2017-11-01 01:02] LABS: INR 1.1 (<1.2); Prothrombin Time 10.7 sec (9.0-12.0)
[2017-11-01 01:03] LABS: ALT 21 U/L (21-72); AST 15 U/L (17-59); Alkaline Phosphatase 85 U/L (38-126); Amylase 71 U/L (30-110); Anion Gap 14 mmol/L; Blood Urea Nitrogen 10 mg/dL (9-20); Calcium 9.5 mg/dL (8.4-10.2); Carbon Dioxide 24 mmol/L (22-30); Chloride 105 mmol/L (98-107); Glucose 109 mg/dL (74-99); Magnesium 1.7 mg/dL (1.6-2.3); Non-African American GFR(MDRD) >60 (>60 ml/min/1.73 sqM); Sodium 143 mmol/L (137-145); Total Bilirubin 0.3 mg/dL (0.2-1.3); Total Protein 7.2 g/dL (6.3-8.2)
[2017-11-01 01:08] LABS: Creatine Kinase 54 U/L (55-170)
[2017-11-01 01:12] LABS: Partial Thromboplastin Time 20.6 sec (22.0-30.0)
[2017-11-01 01:21] LABS: Creatine Kinase MB 0.3 ng/mL (0.0-2.4); Troponin I <0.012 ng/mL (0.000-0.034)
[2017-11-01] MEDS ORDERED: RX INFO: IV CONTRAST WAS GIVEN 1 EACH MISC MISCELLANE PRN (02:13)
[2017-11-01] MEDS ORDERED: ONDANSETRON 4 MG/2 ML VIAL IVP STA (03:55)
[2017-11-01] MEDS ORDERED: MORPHINE SULFATE 5 MG/ML SYRINGE IV STA (03:55)
--- NOTE | 2017-11-01 04:39 | CT ---
EXAM: CT Angiography Chest With Intravenous Contrast CLINICAL HISTORY: Reason: Pain TECHNIQUE: Axial computed tomographic angiography images of the chest with intravenous contrast using pulmonary embolism protocol. CTDI is 73.5 mGy and DLP is 322.7 mGy-cm. This CT exam was performed using one or more of the following dose reduction techniques: automated exposure control, adjustment of the mA and/or kV according to patient size, and/or use of iterative reconstruction technique. MIP reconstructed images were created and reviewed. Coronal and sagittal reformatted images were created and reviewed. COMPARISON: 11/19/16 FINDINGS: Pulmonary arteries: Mild dilation of the proximal right pulmonary artery at 3.4 cm. No pulmonary embolism visualized. Mixing artifact within the distal segmental/subsegmental branches, decreasing sensitivity. Aorta: No acute findings. No thoracic aortic aneurysm. Lungs: Minimal dependent atelectasis bilaterally. No mass. Pleural space: Unremarkable. No significant effusion. No pneumothorax. Heart: Multivessel coronary artery calcification. No significant pericardial effusion. No evidence of RV dysfunction. Thyroid: Partially visualized thyromegaly. Bones/joints: Multilevel disc space height loss with osteophytosis. No acute fracture. No dislocation. Soft tissues: Unremarkable. Lymph nodes: Unremarkable. No enlarged lymph nodes. IMPRESSION: 1. No definitive pulmonary emboli identified on this exam. There is dilation of the right pulmonary artery to 3.4 cm, slightly more prominent than on the previous exam where it measured 3.2 cm. 2. Multivessel coronary artery disease. Correlate with cardiac history.
[2017-11-01] MEDS ORDERED: NITROGLYCERIN SL TABS 0.4 MG TAB SUBLINGUAL PRN ×2 (05:10→09:41)
[2017-11-01] MEDS: HEPARIN SODIUM,PORCINE 5,000 UNIT/ML 1 ML VIAL SQ SCH ×3 (05:27→20:59)
[2017-11-01 06:17] VITALS: BMI 23.3
[2017-11-01 07:28] LABS: Creatine Kinase 49 U/L (55-170)
[2017-11-01 07:41] LABS: Creatine Kinase MB 0.3 ng/mL (0.0-2.4); Troponin I <0.012 ng/mL (0.000-0.034)
[2017-11-01] MEDS ORDERED: ALPRAZolam 0.5 MG TAB PO PRN (09:41)
[2017-11-01] MEDS ORDERED: ALPRAZolam 0.25 MG TAB PO PRN (09:41)
[2017-11-01] MEDS ORDERED: SODIUM CHLORIDE 0.9% 1,000 ML in EMPTY BAG 1 BAG IV ONE (09:41)
[2017-11-01] MEDS ORDERED: ASPIRIN 325 MG TAB PO STA (09:41)
[2017-11-01] MEDS ORDERED: ATORVASTATIN 80 MG TAB PO STA (09:41)
[2017-11-01] MEDS: METHOCARBAMOL 500 MG TAB PO SCH ×3 (10:26→20:58)
[2017-11-01] MEDS: PANTOPRAZOLE 40 MG TABLET PO SCH (10:26)
[2017-11-01] MEDS: MORPHINE SULFATE ER 30 MG TABLET PO SCH ×3 (10:26→20:58)
[2017-11-01] MEDS: CARVEDILOL 12.5 MG TAB PO SCH ×2 (10:26→20:59)
[2017-11-01] MEDS: ONDANSETRON 4 MG/2 ML VIAL IVP PRN ×2 (10:26→19:41)
--- NOTE | 2017-11-01 10:26 | CONS ---
CONSULTATION CHIEF COMPLAINT: Chest pain. HISTORY OF PRESENT ILLNESS: Salomon is a 61-year-old gentleman with history of coronary artery disease, status post angioplasty of a complex LAD lesion, who presents to the hospital complaining of chest pain. He describes it as precordial chest pressure associated with some diaphoresis, nausea and vomiting Cardiology had been consulted for the same. His EKG does not reveal ischemic changes and cardiac enzymes have been negative. Given the recent cardiac intervention and episodes of unexplained chest pressure I advised the patient to undergo cardiac catheterization for further evaluation. He had been explained of risks, benefits and alternatives, understood and accepted. We will schedule this with Dr. Felipe tomorrow. PAST MEDICAL HISTORY: Significant for coronary artery disease, status post angioplasty, chronic pain, hypertension. CURRENT MEDICATIONS: Current medications include aspirin, Lipitor, Soma, Coreg 25 b.i.d., diazepam 10 mg daily, Flonase, lisinopril 5 mg daily, Robaxin, MS Contin, Protonix, and Effient. ALLERGIES: TO MOTRIN AND TORADOL. FAMILY HISTORY: Negative for premature coronary artery disease. SOCIAL HISTORY: Negative for smoking, EtOH abuse, or drug abuse. REVIEW OF SYSTEMS: HEENT is unremarkable. Cardiac as described above. Respiratory negative. GI negative. Endocrine negative. Allergy, immunology, skin negative. Musculoskeletal significant for arthritis. Psychosocial negative. Endocrine and dermatologic negative. Derm negative. Constitutional negative. oncological negative. Rest of the system review is not relevant. EXAM: Comfortable at rest. Vital signs are stable. There is no jugular venous distention. Carotid upstroke is normal. There is no bruit. Chest exam reveals good air entry bilaterally. Heart exam reveals first and second heart sounds. No gallop. No murmur. No rub. ABDOMEN: Soft, nontender. Exam of extremities did not reveal any edema. Peripheral pulses are felt. LABS: Have been reviewed. Cardiac enzymes have been negative. ASSESSMENT: Unstable angina in a patient with known coronary artery disease status post angioplasty of a very complex LAD lesion. PLAN: The patient will undergo cardiac catheterization by Dr. Felipe tomorrow. MMODL / IJN: [id number] /
[2017-11-01] MEDS: PRASUGREL 10 MG TAB PO SCH (10:27)
[2017-11-01] MEDS: FLUTICASONE 50MCG/SPRAY NASAL 16GM EA NOSTRIL SCH (10:43)
[2017-11-01] MEDS: HYDROmorphone 2 MG TAB PO PRN (12:13)
[2017-11-01 13:14] LABS: Creatine Kinase 51 U/L (55-170)
[2017-11-01 13:26] LABS: Creatine Kinase MB 0.2 ng/mL (0.0-2.4); Troponin I <0.012 ng/mL (0.000-0.034)
--- NOTE | 2017-11-01 14:07 | P.HPIM ---
History of Present Illness 61-year-old gentleman with history of coronary artery disease recent cardiac catheterization and stenting given compensative chest pressure like sensation in the left side of the chest radiating to the left arm patient is known to be noncompliant with medication but this time patient states he is compliant with medications patient chest pain is nonpleuritic in nature not associated with food, cardiology evaluated the patient and they're recommending cardiac catheterization tomorrow, patient doesn't smoke patient says he has been taking all his medications. EKG and troponins are essentially within normal limits Review of Systems REVIEW OF SYSTEMS: CONSTITUTIONAL: No fever, no malaise, no fatigue. HEENT: No recent visual problems or hearing problems. Denied any sore throat. CARDIOVASCULAR: No orthopnea, PND, no palpitations, no syncope. PULMONARY: No shortness of breath, no cough, no hemoptysis. GASTROINTESTINAL: No diarrhea, no nausea, no vomiting, no abdominal pain. Normoactive bowel sounds. NEUROLOGICAL: No headaches, no weakness, no numbness. HEMATOLOGICAL: Denies any bleeding or petechiae. GENITOURINARY: Denies any burning micturition, frequency, or urgency. MUSCULOSKELETAL/RHEUMATOLOGICAL: Denies any joint pain, swelling, or any muscle pain. ENDOCRINE: Denies any polyuria or polydipsia. The rest of the 14-point review of systems is negative. Past Medical History Past Medical History: Chest Pain / Angina, Hyperlipidemia, Hypertension Additional Past Medical History / Comment(s): Other HX: CHRONIC BACK PAIN, chronic pain syndrome, migraines History of Any Multi-Drug Resistant Organisms: None Reported Past Surgical History: Back Surgery Additional Past Surgical History / Comment(s): Low back surgery, bilateral arm and bilateral thigh surgeries for brown recluse spider bites with infection, morphine pain pump insertion and removal due to infection. stents in october 2016 and 1 stent placed 09/2017 Past Anesthesia/Blood Transfusion Reactions: No Reported Reaction Additional Past Anesthesia/Blood Transfusion Reaction / Comment(s): Pt recieved blood after back surgery and tolerated it well. Past Psychological History: No Psychological Hx Reported Additional Psychological History / Comment(s): Pt resides with his . He is fairly independent. He uses a cane/walker to ambulate. Smoking Status: Former smoker Past Alcohol Use History: None Reported Additional Past Alcohol Use History / Comment(s): . Past Drug Use History: None Reported - Past Family History Father Additional Family Medical History / Comment(s): Father had back problems. Mother Family Medical History: Hypertension, Myocardial Infarction ([place]) Brother(s) Family Medical History: Cancer Additional Family Medical History / Comment(s): Leukemia Medications and Allergies Home Medications Medication Instructions Recorded Confirmed Type Carisoprodol [Soma] 350 mg PO TID PRN 12/19/15 11/01/17 History HYDROmorphone HCL 4 mg PO QID PRN 05/27/16 11/01/17 History Diazepam 10 mg PO HS 10/04/16 11/01/17 History Aspirin 81 mg PO DAILY 01/21/17 11/01/17 History Carvedilol 25 mg PO BID 01/21/17 11/01/17 History Fluticasone Nasal [place] [Flonase 1 spray EA NOSTRIL DAILY 04/20/17 11/01/17 History Nasal [place]] Methocarbamol [Robaxin] 500 mg PO TID 10/10/17 11/01/17 History Morphine Sulfate ER [Ms Contin] 30 mg PO TID 10/10/17 11/01/17 History Atorvastatin [Lipitor] 80 mg PO HS #30 tab 10/12/17 11/01/17 Rx Prasugrel [Effient] 10 mg PO DAILY #30 tab 10/12/17 11/01/17 Rx Lisinopril [Zestril] 5 mg PO HS #30 tab 10/13/17 11/01/17 Rx Pantoprazole Sodium [Protonix] 40 mg PO DAILY 10/16/17 11/01/17 History Allergies Allergy/AdvReac Type Severity Reaction Status Date / Time ibuprofen [From Motrin] Allergy Rash/Hives Verified 11/01/17 08:37 ketorolac tromethamine Allergy Rash/Hives Verified 11/01/17 08:37 [From Toradol] Physical Exam Vitals: Vital Signs Temp Pulse Pulse Resp BP BP Pulse Ox 11/01/17 12:00 98.4 F 51 L 16 112/69 99 11/01/17 08:00 97.6 F 77 14 144/84 99 11/01/17 06:27 70 18 11/01/17 05:43 98.0 F 81 18 153/88 96 11/01/17 05:29 98.1 F 72 18 136/89 98 11/01/17 04:11 84 20 151/92 100 11/01/17 02:17 80 18 130/99 100 11/01/17 01:11 20 11/01/17 01:10 86 20 143/96 99 11/01/17 00:43 98.3 F 88 18 146/85 99 Intake and Output 10/31/17 11/01/17 11/01/17 22:59 06:59 14:59 Other: # Voids 1 Weight 76 kg PHYSICAL EXAMINATION: GENERAL: The patient is alert and oriented x3, not in any acute distress. Well developed, well nourished. HEENT: Pupils are round and equally reacting to light. EOMI. No scleral icterus. No conjunctival pallor. Normocephalic, atraumatic. No pharyngeal erythema. No thyromegaly. CARDIOVASCULAR: S1 and S2 present. No murmurs, rubs, or gallops. PULMONARY: Chest is clear to auscultation, no wheezing or crackles. ABDOMEN: Soft, nontender, nondistended, normoactive bowel sounds. No palpable organomegaly. MUSCULOSKELETAL: No joint swelling or deformity. EXTREMITIES: No cyanosis, clubbing, or pedal edema. NEUROLOGICAL: Gross neurological examination did not reveal any focal deficits. SKIN: No rashes. Results CBC & Chem 7: 11/01/17 00:25 11/01/17 00:25 Labs: Abnormal Lab Results - Last 24 Hours (Table) 11/01/17 11/01/17 11/01/17 Range/Units 00:25 00:25 00:25 Hgb 11.0 L (13.0-17.5) gm/dL Hct 36.9 L (39.0-53.0) % MCHC 29.7 L (31.0-37.0) g/dL RDW 20.3 H (11.5-15.5) % APTT (22.0-30.0) sec D-Dimer (<0.60) mg/L FEU Glucose 109 H (74-99) mg/dL AST 15 L (17-59) U/L Total Creatine Kinase 54 L (55-170) U/L 11/01/17 11/01/17 11/01/17 Range/Units 00:25 06:38 12:15 Hgb (13.0-17.5) gm/dL Hct (39.0-53.0) % MCHC (31.0-37.0) g/dL RDW (11.5-15.5) % APTT 20.6 L (22.0-30.0) sec D-Dimer 1.46 H (<0.60) mg/L FEU Glucose (74-99) mg/dL AST (17-59) U/L Total Creatine Kinase 49 L 51 L (55-170) U/L Thrombosis Risk Factor Assmnt - Choose All That Apply Each Factor Represents 1 point: Age 41-60 years Each Risk Factor Represents 3 Points: History of DVT/PE Thrombosis Risk Factor Assessment Total Risk Factor Score: 4 Thrombosis Risk Factor Assessment Level: Moderate Risk Assessment and Plan Plan: #1 chest pain with typical features and recent cardiac catheterization and stenting: Patient will undergo cardiac catheterization tomorrow again. Patient recently had a stent to LAD #2 hypertension #3 hyperlipidemia #4 chronic low back pain Patient's appropriate home medications will be resumed
[2017-11-01] MEDS: CARISOPRODOL 350 MG TAB PO PRN (16:55)
[2017-11-01] MEDS ORDERED: LISINOPRIL 5 MG TAB PO SCH (21:00)
[2017-11-01] MEDS ORDERED: DIAZEPAM 5 MG TAB PO SCH (21:00)
[2017-11-01] MEDS ORDERED: ATORVASTATIN 80 MG TAB PO SCH (21:00)
[2017-11-02] MEDS: HYDROmorphone 2 MG TAB PO PRN ×2 (00:30→06:07)
[2017-11-02] MEDS: CARISOPRODOL 350 MG TAB PO PRN (01:01)
[2017-11-02 02:40] LABS: Cholesterol 121 mg/dL (<200); HDL Cholesterol 46 mg/dL (40-60)
[2017-11-02] MEDS: HEPARIN SODIUM,PORCINE 5,000 UNIT/ML 1 ML VIAL SQ SCH (05:21)
[2017-11-02 06:15] VITALS: RESP 16
[2017-11-02] MEDS: PANTOPRAZOLE 40 MG TABLET PO SCH (07:00)
[2017-11-02] MEDS: METHOCARBAMOL 500 MG TAB PO SCH (07:00)
[2017-11-02] MEDS: CARVEDILOL 12.5 MG TAB PO SCH (07:00)
--- NOTE | 2017-11-02 08:38 | P.PN ---
Subjective Progress Note Date: 11/02/17 Principal diagnosis: Chest pressure. This continue present on a 61-year-old black male essentially admitted for chest pressure. He recently had angina with stent placement less than a month ago. The patient is now scheduled for probable cardiac catheterization. He states continued pain and would like titration of his pain medication today. Objective - Vital Signs Vital signs: Vital Signs Temp 98.0 F 11/02/17 04:00 Pulse 74 11/02/17 04:00 Resp 16 11/02/17 04:00 BP 119/81 11/02/17 04:00 Pulse Ox 97 11/02/17 04:00 Intake & Output 11/01/17 11/02/17 11/02/17 18:59 06:59 18:59 Other: # Voids 1 - Constitutional General appearance: Present: average body habitus - EENT Eyes: Absent: abnormal pupil - Cardiovascular Rhythm: regular - Gastrointestinal General gastrointestinal: Present: soft. Absent: tenderness - Labs CBC & Chem 7: 11/01/17 00:25 11/01/17 00:25 Labs: Abnormal Lab Results - Last 24 Hours (Table) 11/01/17 Range/Units 12:15 Total Creatine Kinase 51 L (55-170) U/L Assessment and Plan (1) Chest pain Current Visit: Yes Status: Acute Code(s): R07.9 - CHEST PAIN, UNSPECIFIED SNOMED Code(s): 50636003 (2) Accelerated hypertension Current Visit: No Status: Acute Code(s): I10 - ESSENTIAL (PRIMARY) HYPERTENSION SNOMED Code(s): 49012775 (3) CAD (coronary artery disease) Current Visit: No Status: Acute Code(s): I25.10 - ATHSCL HEART DISEASE OF [place] CORONARY ARTERY W/O ANG PCTRS SNOMED Code(s): 79617218 (4) Opiate dependence, continuous Current Visit: No Status: Acute Code(s): F11.20 - OPIOID DEPENDENCE, UNCOMPLICATED SNOMED Code(s): 160824018 Plan: Await cardiology input. We'll continue to follow. Titrate pain medication if possible.
[2017-11-02 08:41] VITALS: PULSE 79
[2017-11-02] MEDS: MORPHINE SULFATE ER 30 MG TABLET PO SCH (08:51)
[2017-11-02] MEDS: FLUTICASONE 50MCG/SPRAY NASAL 16GM EA NOSTRIL SCH (08:52)
[2017-11-02] MEDS ORDERED: ASPIRIN 325 MG TAB PO SCH (09:00)
[2017-11-02] MEDS ORDERED: ALPRAZolam 0.25 MG TAB PO STA (09:00)
[2017-11-02] MEDS: PRASUGREL 10 MG TAB PO SCH (09:21)
--- NOTE | 2017-11-02 11:45 | PN ---
PROGRESS NOTE Salomon Latif is a 61-year-old gentleman who underwent stenting of an major diagonal branch performed by me in September and I also did a dilatation of the LAD that was stented. He came in with episode of chest pain. His troponins are normal. Pain seems atypical. He is resting comfortably. Given the fact this was a complex intervention of a bifurcation lesion, he was advised to have a cardiac cath by Dr. Simmons. I reinforced the same information. Advised to have a cardiac cath and Dr. Felipe will perform the procedure. Patient is reluctant. He will make a decision in the next hour or so. However, he is pain free. His vital signs are stable. There is no JVD or carotid bruit. S1, S2 heard normally. Lungs are clear. Abdomen and lower extremity exam unchanged. If patient does not wish to have a cardiac cath, he can be discharged on his current medications and see Dr. Felipe in the office. I have reinforced the importance of dual antiplatelet therapy and he is now on Effient and also aspirin 81 mg daily along with his other medications. He is also on atorvastatin and a beta jerald. He will can be discharged on the same medications, if he refuses to have a cardiac catheterization and he will see Dr. Felipe in the office. MMODL / IJN: [id number] /
[2017-11-02 12:02] VITALS: BP 131/76; TEMP 98.4
[2017-11-02] MEDS ORDERED: ATORVASTATIN 80 MG TAB PO SCH (21:00)
--- NOTE | 2017-11-11 14:33 | CDI ---
Documentation Clarification Form Date: 11/11/17 Mail Sorter Name: NABEEL Garcia Admit Date: 11/01/17 Discharge Date: 11/02/17 ATTENTION: The Clinical Documentation Specialists (CDI) and [facility] Coding Staff appreciate your assistance in clarifying documentation. Please respond to the clarification below the line at the bottom and electronically sign. The CDI & [facility] Coding staff will review the response and follow-up if needed. Please note: Queries are made part of the Legal Health Record. If you have any questions, please contact the author of this message via ITS. Dr. Yolie Ng Conflicting documentation has been found in the medical record. Patient is admitted with left sided chest pain. H&P assessment is "Chest pain with typical features and recent cardiac catheterization and stenting." Cardiac consult's assessment is "unstable angina in a patient with known CAD". Cardiac catheterization is recommended but the patient left AMA. Please clarify if you feel the final assessment, after study, is: *chest pain *unstable angina *other (please specify) *unknown chest pain _unknown MTDD
--- NOTE | 2018-02-17 20:02 | P.DS ---
Providers Date of admission: 11/01/17 05:15 Attending physician: Joselito Ng Consults: 11/01/17 05:10 Consult Physician Routine Consulting Provider: Sanju Montano Consult Reason/Comments: chest pain Do you want consulting provider notified?: Yes Primary care physician: Lucian Mares - Discharge Diagnosis(es) (1) Chest pain Status: Acute (2) Accelerated hypertension Status: Acute (3) CAD (coronary artery disease) Status: Chronic (4) Opiate dependence, continuous Status: Chronic Priority: Low Hospital Course: This is discharge summary in a 62-year-old black male who has known history of opiate dependence who came in with chest pain and pressure. Because of his multiple previous past medical history, he was appropriately admitted for observation and rule out for myocardial infarction. He is somewhat anxious at this hospitalization but given his enzymatic lack of elevation, the patient was discharged in stable condition to follow-up and will be about one week. Patient Condition at Discharge: Fair Plan - Discharge Summary Discharge Rx Participant: No New Discharge Prescriptions: No Action Carisoprodol [Soma] 350 mg PO TID PRN PRN Reason: Muscle Spasm HYDROmorphone HCL 4 mg PO QID PRN PRN Reason: Breakthrough Pain Diazepam 10 mg PO HS Aspirin 81 mg PO DAILY Carvedilol 25 mg PO BID Fluticasone Nasal [place] [Flonase Nasal [place]] 1 spray EA NOSTRIL BID Morphine Sulfate ER [Ms Contin] 30 mg PO TID Atorvastatin [Lipitor] 80 mg PO HS #30 tab Prasugrel [Effient] 10 mg PO DAILY #30 tab Lisinopril [Zestril] 5 mg PO HS #30 tab Pantoprazole Sodium [Protonix] 40 mg PO DAILY #60 tablet.dr Discharge Medication List Carisoprodol [Soma] 350 mg PO TID PRN 12/19/15 [History] HYDROmorphone HCL 4 mg PO QID PRN 05/27/16 [History] Diazepam 10 mg PO HS 10/04/16 [History] Aspirin 81 mg PO DAILY 01/21/17 [History] Carvedilol 25 mg PO BID 01/21/17 [History] Fluticasone Nasal [place] [Flonase Nasal [place]] 1 spray EA NOSTRIL BID 04/20/17 [ History] Morphine Sulfate ER [Ms Contin] 30 mg PO TID 10/10/17 [History] Atorvastatin [Lipitor] 80 mg PO HS #30 tab 10/12/17 [Rx] Prasugrel [Effient] 10 mg PO DAILY #30 tab 10/12/17 [Rx] Lisinopril [Zestril] 5 mg PO HS #30 tab 10/13/17 [Rx] Pantoprazole Sodium [Protonix] 40 mg PO DAILY #60 tablet. 11/21/17 [Rx] Follow up Appointment(s)/Referral(s): Lucian Mares MD [Primary Care Provider] - 1-2 days Discharge Disposition: Left Against Medical Advice
== END 2017-11-02 12:29 | disposition left against medical advice (07) ==
LOC: EC 00:15 → 3OBS 05:15
PROVIDERS: ADMIT Hospitalist; ATTEND Hospitalist
DX: R07.2 Precordial pain (principal); R61 Generalized hyperhidrosis; R11.2 Nausea with vomiting, unspecified; E78.5 Hyperlipidemia, unspecified; I10 Essential (primary) hypertension; G89.4 Chronic pain syndrome; M54.5 Low back pain; F11.20 Opioid dependence, uncomplicated; G43.909 Migraine, unspecified, not intractable, without status migrainosus; I25.10 Atherosclerotic heart disease of native coronary artery without angina pectoris; Z95.5 Presence of coronary angioplasty implant and graft; Z79.82 Long term (current) use of aspirin; Z79.899 Other long term (current) drug therapy; Z79.51 Long term (current) use of inhaled steroids; Z88.6 Allergy status to analgesic agent; Z87.891 Personal history of nicotine dependence; Z82.49 Family history of ischemic heart disease and other diseases of the circulatory system; Z91.14 Patient's other noncompliance with medication regimen; Z86.718 Personal history of other venous thrombosis and embolism; Z86.711 Personal history of pulmonary embolism
CPT/HCPCS: 96372 ×2; 96376; 96374; 96375; 99285; 36415; 93005; 85379; 80061; 80053; 82150; 82550; 82553; 83690; 83735; 84484; 85025; 85610; 85730; 71020; 71275; G0378 ×2; J1644; Q9967; J2405; J2274

== ENCOUNTER 2017-12-03 07:04 | Observation (INO) | payer MEDICARE, OTHER ==
[2017-12-03] MEDS ORDERED: PANTOPRAZOLE 40 MG/10 ML VIAL IVP STA (07:40)
[2017-12-03] MEDS ORDERED: ONDANSETRON 4 MG/2 ML VIAL IVP STA (07:40)
--- NOTE | 2017-12-03 07:47 | ED ---
General Adult HPI - General Chief complaint: GI Bleed Stated complaint: gi bleed Time Seen by Provider: 12/03/17 07:30 Source: patient, RN notes reviewed Mode of arrival: ambulatory Limitations: no limitations - History of Present Illness Initial comments: Patient is a pleasant 62-year-old male presenting to the emergency department with abdominal pain extending to the abdomen. Patient states onset of symptoms was yesterday. Patient has had several episodes of hematemesis. Patient has had dark stool with some blood streaks. Patient states he was in the hospital a month ago with hiatal hernia. No history of significant alcohol use or liver disease. No history of previous GI bleed. - Related Data Home Medications Medication Instructions Recorded Confirmed Carisoprodol [Soma] 350 mg PO TID PRN 12/19/15 12/03/17 HYDROmorphone HCL 4 mg PO QID PRN 05/27/16 12/03/17 Diazepam 10 mg PO HS 10/04/16 12/03/17 Aspirin 81 mg PO DAILY 01/21/17 12/03/17 Carvedilol 25 mg PO BID 01/21/17 12/03/17 Fluticasone Nasal [place] [Flonase 1 spray EA NOSTRIL BID 04/20/17 12/03/17 Nasal [place]] Morphine Sulfate ER [Ms Contin] 30 mg PO TID 10/10/17 12/03/17 Previous Rx's Medication Instructions Recorded Atorvastatin [Lipitor] 80 mg PO HS #30 tab 10/12/17 Prasugrel [Effient] 10 mg PO DAILY #30 tab 10/12/17 Lisinopril [Zestril] 5 mg PO HS #30 tab 10/13/17 Pantoprazole Sodium [Protonix] 40 mg PO DAILY #60 tablet. 11/21/17 Allergies Allergy/AdvReac Type Severity Reaction Status Date / Time ibuprofen [From Motrin] Allergy Rash/Hives Verified 12/03/17 07:24 ketorolac tromethamine Allergy Rash/Hives Verified 12/03/17 07:24 [From Toradol] Review of Systems ROS Statement: Those systems with pertinent positive or pertinent negative responses have been documented in the HPI. ROS Other: All systems not noted in ROS Statement are negative. Constitutional: Denies: fever Eyes: Denies: eye pain ENT: Denies: ear pain Respiratory: Denies: cough Cardiovascular: Reports: chest pain (Abdominal pain extends into the chest) Endocrine: Denies: fatigue Gastrointestinal: Reports: abdominal pain, nausea, hematemesis Genitourinary: Denies: dysuria Musculoskeletal: Denies: back pain Skin: Denies: rash Neurological: Denies: weakness Past Medical History Past Medical History: Chest Pain / Angina, Deep Vein Thrombosis (DVT), Hyperlipidemia, Hypertension Additional Past Medical History / Comment(s): Other HX: CHRONIC BACK PAIN, chronic pain syndrome, migraines History of Any Multi-Drug Resistant Organisms: None Reported Past Surgical History: Back Surgery, Heart Catheterization With Stent Additional Past Surgical History / Comment(s): Low back surgery, bilateral arm and bilateral thigh surgeries for brown recluse spider bites with infection, morphine pain pump insertion and removal due to infection. stents in october 2016 Past Anesthesia/Blood Transfusion Reactions: No Reported Reaction Additional Past Anesthesia/Blood Transfusion Reaction / Comment(s): Pt recieved blood after back surgery and tolerated it well. Past Psychological History: No Psychological Hx Reported Smoking Status: Former smoker Past Alcohol Use History: None Reported Past Drug Use History: None Reported - Past Family History Father Additional Family Medical History / Comment(s): Father had back problems. Mother Family Medical History: Hypertension, Myocardial Infarction ([place]) Brother(s) Family Medical History: Cancer Additional Family Medical History / Comment(s): Leukemia General Exam Limitations: no limitations General appearance: alert, in no apparent distress Head exam: Present: atraumatic Eye exam: Present: normal appearance, PERRL ENT exam: Present: normal oropharynx Neck exam: Present: normal inspection Respiratory exam: Present: normal lung sounds bilaterally Cardiovascular Exam: Present: tachycardia Expanded Peripheral pulses: 2+: Radial (R), Radial (L), Dorsalis Pedis (R), Dorsalis Pedis (L) GI/Abdominal exam: Present: soft, tenderness (Mild to moderate epigastric tenderness), normal bowel sounds. Absent: distended, rebound, rigid, pulsatile mass Extremities exam: Present: normal inspection Neurological exam: Present: alert Psychiatric exam: Present: normal affect, normal mood Skin exam: Present: normal color Course Vital Signs 12/03/17 12/03/17 12/03/17 07:07 07:31 08:31 Temperature 97 F L Pulse Rate 135 H 122 H 105 H Respiratory 22 20 18 Rate Blood Pressure 148/97 169/90 167/88 O2 Sat by Pulse 98 99 99 Oximetry EKG Findings - EKG Comments: EKG Findings:: Sinus tachycardia 123. NM 144. QRS 86. QT 332. QTC 475. Normal axis. Normal QRS. No acute ST change. Medical Decision Making - Medical Decision Making Patient reevaluated and resting comfortably in bed. Patient still complains of pain and nausea, unchanged. Patient requests pain medication. Patient was updated on results and plan. Case was discussed in detail with Dr. Mares, who will admit his patient with GI consult. - Lab Data Result diagrams: 12/03/17 07:26 12/03/17 07:26 Lab Results 12/03/17 12/03/17 12/03/17 Range/Units 07:26 07:26 07:26 WBC 4.6 (3.8-10.6) k/uL RBC 4.68 (4.30-5.90) m/uL Hgb 12.4 L (13.0-17.5) gm/dL Hct 40.8 (39.0-53.0) % MCV 87.3 (80.0-100.0) fL MCH 26.6 (25.0-35.0) pg MCHC 30.5 L (31.0-37.0) g/dL RDW 18.1 H (11.5-15.5) % Plt Count 479 H (150-450) k/uL Neutrophils % 54 % Lymphocytes % 35 % Monocytes % 7 % Eosinophils % 1 % Basophils % 0 % Neutrophils # 2.5 (1.3-7.7) k/uL Lymphocytes # 1.6 (1.0-4.8) k/uL Monocytes # 0.3 (0-1.0) k/uL Eosinophils # 0.0 (0-0.7) k/uL Basophils # 0.0 (0-0.2) k/uL Hypochromasia Moderate Anisocytosis Slight PT (9.0-12.0) sec INR (<1.2) APTT (22.0-30.0) sec Sodium 144 (137-145) mmol/L Potassium 3.9 (3.5-5.1) mmol/L Chloride 107 (98-107) mmol/L Carbon Dioxide 18 L (22-30) mmol/L Anion Gap 19 mmol/L BUN 8 L (9-20) mg/dL Creatinine 0.66 (0.66-1.25) mg/dL Est GFR (MDRD) Af Amer >60 (>60 ml/min/1.73 sqM) Est GFR (MDRD) Non-Af >60 (>60 ml/min/1.73 sqM) Glucose 148 H (74-99) mg/dL Calcium 10.6 H (8.4-10.2) mg/dL Total Bilirubin 0.6 (0.2-1.3) mg/dL AST 17 (17-59) U/L ALT 12 L (21-72) U/L Alkaline Phosphatase 104 (38-126) U/L Total Creatine Kinase 36 L (55-170) U/L CK-MB (CK-2) <0.2 (0.0-2.4) ng/mL CK-MB (CK-2) Rel Index Troponin I <0.012 (0.000-0.034) ng/mL Total Protein 7.8 (6.3-8.2) g/dL Albumin 4.9 (3.5-5.0) g/dL 12/03/17 Range/Units 07:26 WBC (3.8-10.6) k/uL RBC (4.30-5.90) m/uL Hgb (13.0-17.5) gm/dL Hct (39.0-53.0) % MCV (80.0-100.0) fL MCH (25.0-35.0) pg MCHC (31.0-37.0) g/dL RDW (11.5-15.5) % Plt Count (150-450) k/uL Neutrophils % % Lymphocytes % % Monocytes % % Eosinophils % % Basophils % % Neutrophils # (1.3-7.7) k/uL Lymphocytes # (1.0-4.8) k/uL Monocytes # (0-1.0) k/uL Eosinophils # (0-0.7) k/uL Basophils # (0-0.2) k/uL Hypochromasia Anisocytosis PT 10.9 (9.0-12.0) sec INR 1.1 (<1.2) APTT 24.0 (22.0-30.0) sec Sodium (137-145) mmol/L Potassium (3.5-5.1) mmol/L Chloride (98-107) mmol/L Carbon Dioxide (22-30) mmol/L Anion Gap mmol/L BUN (9-20) mg/dL Creatinine (0.66-1.25) mg/dL Est GFR (MDRD) Af Amer (>60 ml/min/1.73 sqM) Est GFR (MDRD) Non-Af (>60 ml/min/1.73 sqM) Glucose (74-99) mg/dL Calcium (8.4-10.2) mg/dL Total Bilirubin (0.2-1.3) mg/dL AST (17-59) U/L ALT (21-72) U/L Alkaline Phosphatase (38-126) U/L Total Creatine Kinase (55-170) U/L CK-MB (CK-2) (0.0-2.4) ng/mL CK-MB (CK-2) Rel Index Troponin I (0.000-0.034) ng/mL Total Protein (6.3-8.2) g/dL Albumin (3.5-5.0) g/dL - Radiology Data Radiology results: image reviewed (Chest x-ray shows no acute process. Abdominal x-ray shows no acute process.) Disposition Clinical Impression: GI bleed Disposition: ADMITTED IP TO THIS [facility] Referrals: Lucian Mares MD [Primary Care Provider] - 1-2 days Decision Time: 09:29
[2017-12-03 08:09] LABS: Anisocytosis Slight; Basophils % (A) 0 %; Eosinophils % (A) 1 %; HCT 40.8 % (39.0-53.0); HGB 12.4 gm/dL (13.0-17.5); Hypochromasia Moderate; Lymphocytes # (A) 1.6 k/uL (1.0-4.8); Lymphocytes % (A) 35 %; MCH 26.6 pg (25.0-35.0); MCHC 30.5 g/dL (31.0-37.0); MCV 87.3 fL (80.0-100.0); Mean Platelet Volume 6.3; Monocytes # (A) 0.3 k/uL (0-1.0); Monocytes % (A) 7 %; Neutrophils # (A) 2.5 k/uL (1.3-7.7); Neutrophils % (A) 54 %; Platelet Count 479 k/uL (150-450); RBC 4.68 m/uL (4.30-5.90); RDW 18.1 % (11.5-15.5); WBC 4.6 k/uL (3.8-10.6)
[2017-12-03 08:14] LABS: INR 1.1 (<1.2); Prothrombin Time 10.9 sec (9.0-12.0)
[2017-12-03 08:18] LABS: ALT 12 U/L (21-72); AST 17 U/L (17-59); Albumin 4.9 g/dL (3.5-5.0); Alkaline Phosphatase 104 U/L (38-126); Anion Gap 19 mmol/L; Blood Urea Nitrogen 8 mg/dL (9-20); Calcium 10.6 mg/dL (8.4-10.2); Carbon Dioxide 18 mmol/L (22-30); Chloride 107 mmol/L (98-107); Glucose 148 mg/dL (74-99); Sodium 144 mmol/L (137-145); Total Bilirubin 0.6 mg/dL (0.2-1.3); Total Protein 7.8 g/dL (6.3-8.2)
[2017-12-03 08:21] LABS: Potassium 3.9 mmol/L (3.5-5.1)
--- NOTE | 2017-12-03 08:29 | XR ---
EXAMINATION TYPE: XR chest 2V DATE OF EXAM: 12/03/2017 COMPARISON: 11/16/2017 HISTORY: Shortness of breath TECHNIQUE: Frontal and lateral views of the chest are obtained. FINDINGS: Scattered senescent parenchymal changes noted. Hyperinflation compatible with COPD. No evidence for infiltrate. No evidence for atelectasis. Heart size is stable. Mediastinal structures are stable and grossly unremarkable. No evidence for hilar prominence. Degenerative changes dorsal spine. IMPRESSION: 1. No evidence for acute pulmonary disease.
[2017-12-03] MEDS ORDERED: SODIUM CHLORIDE 0.9% 500 ML IV STA (08:30)
--- NOTE | 2017-12-03 08:30 | XR ---
EXAMINATION TYPE: XR abdomen 1V DATE OF EXAM: 12/03/2017 COMPARISON: NONE HISTORY: Pain TECHNIQUE: Single supine KUB image of the abdomen is obtained FINDINGS: Small bowel demonstrates no evidence for dilatation or air fluid levels. Gas and fecal material is seen in non-distended colon. No convincing evidence for pneumoperitoneum. No unusual calcifications. The lung bases are clear. The osseous structures are intact. Postoperative changes lumbar spine. Cholecystectomy clips are in p lace. IMPRESSION: 1. Overall nonobstructive bowel gas pattern.
[2017-12-03 09:06] LABS: Creatine Kinase 36 U/L (55-170)
[2017-12-03 09:18] LABS: Creatine Kinase MB <0.2 ng/mL (0.0-2.4); Troponin I <0.012 ng/mL (0.000-0.034)
[2017-12-03] MEDS ORDERED: MORPHINE SULFATE 2 MG/ML SYRINGE IVP STA (09:31)
[2017-12-03] MEDS ORDERED: NALOXONE 0.4 MG/ML 1 ML VIAL IV PRN (09:31)
[2017-12-03] MEDS ORDERED: METOCLOPRAMIDE 5 MG/ML 2 ML VIAL IVP STA (09:31)
[2017-12-03] MEDS ORDERED: SODIUM CHLORIDE 0.9% 1,000 ML IV SCH (09:45)
[2017-12-03] MEDS ORDERED: CARISOPRODOL 350 MG TAB PO PRN (11:32)
[2017-12-03] MEDS ORDERED: MORPHINE SULFATE 5 MG/ML SYRINGE IVP PRN (11:35)
[2017-12-03] MEDS ORDERED: MORPHINE SULFATE 2 MG/ML SYRINGE IVP PRN (11:41)
--- NOTE | 2017-12-03 12:14 | P.CONS ---
History of Present Illness - Reason for Consult Consult date: 12/03/17 Hematemesis Requesting physician: Lucian Mares - History of Present Illness 62-year-old male admitted with acute hematemesis, epigastric pain, and dark colored bowel movements 2 days. Past medical history CAD with complex stenting of LAD mid September 2017 maintained Effient and aspirin, hypertension, hyperlipidemia, DVT 2012 status post PICC line placement, iron deficiency anemia , chronic back pain, migraines. Patient developed increased epigastric discomfort yesterday followed by 3 emesis. First emesis was bilious the next 2 emesis were blood-tinged pink/red. This was followed by a few episodes of darker colored looser stools. No recurrence of hematemesis or dark colored bowel movements since admission. Presently still reports epigastric discomfort but improved from yesterday. 11/21/2017 EGD colonoscopy for evaluation of chest pain and anemia with findings of mild antral gastritis with no obvious cut with a reflux disease or esophagitis. Small sliding hiatal hernia. Mild sigmoid diverticulosis. Hemoglobin 12.4. MCV 87. Platelet 479. White count 4.8. BUN 8. Creatinine 0.6. INR 1.1. Review of Systems Constitutional: Denies fever, chills, sweats, weight gain, or loss. HEENT: Negative for migraines, blurred vision or loss, earaches, drainage, tinnitus, oral mucosal lesions, dysphagia, or odynophagia. Cardiac: CAD with PCI stent, hyperlipidemia, hypertension. Negative for chest pain, arrhythmias, or palpitation. Respiratory: Negative for shortness of breath, hemoptysis, cough, or sputum production. Gastrointestinal: See HPI for pertinent findings. Genitourinary: Negative for hematuria, urgency, frequency, polyuria, dysuria, or penile discharge. Musculoskeletal: Chronic back pain. Neurologic: Negative for stroke or TIA. Endocrine: Negative for thyroid problems. Skin: Negative for rash or itching. Psychiatric: Negative history for depression and anxiety Past Medical History Past Medical History: Coronary Artery Disease (CAD), Chest Pain / Angina, Deep Vein Thrombosis (DVT), GERD/Reflux, Hyperlipidemia, Hypertension Additional Past Medical History / Comment(s): 11/24/17 EGD/colonoscopy which pt states showed, gastritis, small hiatal hernia and diverticular dx, pt states years ago he had PUD, chronic low back pain, chronic pain syndrome, migraines, PVD, DVT L arm, numbness/tingling bilateral lower legs, bilateral past hand fractures History of Any Multi-Drug Resistant Organisms: None Reported Past Surgical History: Back Surgery, Heart Catheterization With Stent, Orthopedic Surgery Additional Past Surgical History / Comment(s): EGDs/colonoscopies with last time being 11/24/17, multiple low back surgeries, bilateral arm and bilateral thigh surgeries for brown recluse spider bites with infection, morphine pain pump insertion and removal due to infection, PCI with stents, L rotator cuff repair, L knee arthroscopy, R cataract removal. Past Anesthesia/Blood Transfusion Reactions: No Reported Reaction Additional Past Anesthesia/Blood Transfusion Reaction / Comm: Pt recieved blood after back surgery and tolerated it well. Date of Last Stent Placement:: 10/11/17 Smoking Status: Former smoker - Past Family History Father Additional Family Medical History / Comment(s): Father had back problems. He lived to be 82 yrs old. Mother Family Medical History: Hypertension, Myocardial Infarction ([place]) Additional Family Medical History / Comment(s): Mother of a [place] at the age of 55yrs. Brother(s) Family Medical History: Cancer Additional Family Medical History / Comment(s): Leukemia Medications and Allergies Home Medications Medication Instructions Recorded Confirmed Type Carisoprodol [Soma] 350 mg PO TID PRN 12/19/15 12/03/17 History HYDROmorphone HCL 4 mg PO QID PRN 05/27/16 12/03/17 History Diazepam 10 mg PO HS 10/04/16 12/03/17 History Aspirin 81 mg PO DAILY 01/21/17 12/03/17 History Carvedilol 25 mg PO BID 01/21/17 12/03/17 History Fluticasone Nasal [place] [Flonase 1 spray EA NOSTRIL BID 04/20/17 12/03/17 History Nasal [place]] Morphine Sulfate ER [Ms Contin] 30 mg PO TID 10/10/17 12/03/17 History Atorvastatin [Lipitor] 80 mg PO HS #30 tab 10/12/17 12/03/17 Rx Prasugrel [Effient] 10 mg PO DAILY #30 tab 10/12/17 12/03/17 Rx Lisinopril [Zestril] 5 mg PO HS #30 tab 10/13/17 12/03/17 Rx Pantoprazole Sodium [Protonix] 40 mg PO DAILY #60 tablet. 11/21/17 12/03/17 Rx Allergies Allergy/AdvReac Type Severity Reaction Status Date / Time ibuprofen [From Motrin] Allergy Rash/Hives Verified 12/03/17 07:24 ketorolac tromethamine Allergy Rash/Hives Verified 12/03/17 07:24 [From Toradol] Physical Exam Vitals: Vital Signs Temp Pulse Pulse Resp BP BP Pulse Ox 12/03/17 10:32 97.6 F 84 18 138/87 94 L 12/03/17 10:01 97.3 F L 87 18 150/90 98 12/03/17 08:31 105 H 18 167/88 99 12/03/17 07:31 122 H 20 169/90 99 12/03/17 07:07 97 F L 135 H 22 148/97 98 Intake and Output 12/02/17 12/03/17 12/03/17 22:59 06:59 14:59 Other: Weight 80.739 kg Patient Weight 12/04/17 06:59 Weight 80.739 kg General appearance: The patient is alert, oriented, in no acute distress. HET: Head is normocephalic and atraumatic. Pupils are equal and reactive. Oropharynx is clear without lesions. Neck: Supple without lymphadenopathy. Trachea midline. Heart: S1 S2. Regular rate and rhythm. Lungs: No crackles or wheezes are heard. Abdomen: Soft, mild midepigastric tenderness, nondistended with bowel sounds. No peritoneal signs. No palpable organomegaly or masses. Extremities: Normal skin color and turgor. No cyanosis, rash, ulceration, clubbing, or edema. Radial and pedal pulses are 2/4 bilaterally. Neurological: No focal deficits. Strength and sensation are grossly intact. Results CBC & Chem 7: 12/03/17 07:26 12/03/17 07:26 Labs: Abnormal Lab Results - Last 24 Hours (Table) 12/03/17 12/03/17 12/03/17 Range/Units 07:26 07:26 07:26 Hgb 12.4 L (13.0-17.5) gm/dL MCHC 30.5 L (31.0-37.0) g/dL RDW 18.1 H (11.5-15.5) % Plt Count 479 H (150-450) k/uL Carbon Dioxide 18 L (22-30) mmol/L BUN 8 L (9-20) mg/dL Glucose 148 H (74-99) mg/dL Calcium 10.6 H (8.4-10.2) mg/dL ALT 12 L (21-72) U/L Total Creatine Kinase 36 L (55-170) U/L Assessment and Plan (1) Hematemesis Narrative/Plan: Differentials possible peptic ulcer disease however felt to be less likely considering no evidence of peptic ulcer disease per EGD screening 2 weeks ago. Suspect Farhana-Victor tear exacerbated by dual antiplatelet therapy. EGD colonoscopy 2 weeks ago no evidence of peptic ulcer disease mild sigmoid diverticulosis. Current Visit: Yes Status: Acute Code(s): K92.0 - HEMATEMESIS SNOMED Code( s): 7664350 (2) GI bleed Current Visit: Yes Status: Acute Code(s): K92.2 - GASTROINTESTINAL HEMORRHAGE, UNSPECIFIED SNOMED Code(s): 39616424 Plan: 1. Protonix 40 mg IV twice daily. 2. Clear liquid diet. Observe. CBC monitoring. 3. EGD evaluation contingent tomorrow afternoon after reevaluation in a.m. The hand tufter has discussed the risks, benefits and alternative therapies for the above-mentioned procedure and for both sedation/analgesia as well as necessary blood product administration, if indicated, as they pertain to this patient. The patient has indicated understanding and acceptance of the risks and procedures discussed. Thank you for this kind referral and the opportunity to participate in the care of your patient. This consultation was discussed with Dr. Simmons. The impression and plan of care have been directed as dictated.
[2017-12-03] MEDS: MORPHINE SULFATE 2 MG/ML SYRINGE IVP PRN ×3 (13:41→20:59)
[2017-12-03 13:54] VITALS: BMI 24.8
[2017-12-03] MEDS: ONDANSETRON 4 MG/2 ML VIAL IVP PRN ×2 (14:25→20:31)
[2017-12-03 20:00] LABS: Anisocytosis Slight; Basophils % (A) 1 %; Eosinophils % (A) 1 %; HCT 34.3 % (39.0-53.0); HGB 10.7 gm/dL (13.0-17.5); Hypochromasia Moderate; Lymphocytes # (A) 1.1 k/uL (1.0-4.8); Lymphocytes % (A) 32 %; MCH 26.6 pg (25.0-35.0); MCHC 31.3 g/dL (31.0-37.0); Mean Platelet Volume 6.2; Monocytes # (A) 0.3 k/uL (0-1.0); Monocytes % (A) 8 %; Neutrophils # (A) 1.9 k/uL (1.3-7.7); Neutrophils % (A) 56 %; Platelet Count 368 k/uL (150-450); RBC 4.03 m/uL (4.30-5.90); RDW 17.6 % (11.5-15.5); WBC 3.3 k/uL (3.8-10.6)
[2017-12-03] MEDS: CARVEDILOL 12.5 MG TAB PO SCH (20:33)
[2017-12-03] MEDS ORDERED: DIAZEPAM 5 MG TAB PO SCH (21:00)
[2017-12-03] MEDS ORDERED: LISINOPRIL 5 MG TAB PO SCH (21:00)
[2017-12-03] MEDS ORDERED: ATORVASTATIN 80 MG TAB PO SCH (21:00)
[2017-12-03] MEDS: FLUTICASONE 50MCG/SPRAY NASAL 16GM EA NOSTRIL SCH (21:51)
[2017-12-04] MEDS: MORPHINE SULFATE 2 MG/ML SYRINGE IVP PRN ×2 (01:00→05:02)
[2017-12-04] MEDS: ONDANSETRON 4 MG/2 ML VIAL IVP PRN (05:02)
[2017-12-04 07:26] LABS: Anisocytosis Slight; Basophils % (A) 1 %; Eosinophils # (A) 0.1 k/uL (0-0.7); Eosinophils % (A) 2 %; HCT 33.7 % (39.0-53.0); Hypochromasia Moderate; Lymphocytes # (A) 0.9 k/uL (1.0-4.8); Lymphocytes % (A) 28 %; MCH 25.8 pg (25.0-35.0); MCHC 29.7 g/dL (31.0-37.0); MCV 86.8 fL (80.0-100.0); Mean Platelet Volume 6.4; Monocytes # (A) 0.3 k/uL (0-1.0); Monocytes % (A) 8 %; Neutrophils % (A) 59 %; Platelet Count 343 k/uL (150-450); RBC 3.88 m/uL (4.30-5.90); RDW 17.6 % (11.5-15.5); WBC 3.3 k/uL (3.8-10.6)
[2017-12-04] MEDS ORDERED: PANTOPRAZOLE 40 MG TABLET PO SCH (07:30)
--- NOTE | 2017-12-04 08:11 | P.HPIM ---
History of Present Illness H&P Date: 12/04/17 Chief Complaint: Melanotic stool This is a history of physical 62-year-old black male with known history of opiate dependence due to chronic pain. The patient complains of significant abdominal bloating and belching and melanotic stool over the last day or so. Given element of possible GI hemorrhage with previous history and history of anticoagulation, he is appropriately admitted for evaluation. Appreciate GI input. The patient is resting but complaining of "constant pain." No element of ethanol use. Review of Systems Constitutional: Denies chills, Denies fever Eyes: denies blurred vision, denies pain Ears, nose, mouth and throat: Denies headache, Denies sore throat Cardiovascular: Denies chest pain, Denies shortness of breath Gastrointestinal: Reports abdominal pain, Reports bloating, Reports melena Musculoskeletal: Denies myalgias Integumentary: Denies pruritus, Denies rash Neurological: Denies numbness, Denies weakness Psychiatric: Denies anxiety, Denies depression Endocrine: Denies fatigue, Denies weight change Past Medical History Past Medical History: Coronary Artery Disease (CAD), Chest Pain / Angina, Deep Vein Thrombosis (DVT), GERD/Reflux, Hyperlipidemia, Hypertension Additional Past Medical History / Comment(s): 11/24/17 EGD/colonoscopy which pt states showed, gastritis, small hiatal hernia and diverticular dx, pt states years ago he had PUD, chronic low back pain, chronic pain syndrome, migraines, PVD, DVT L arm, numbness/tingling bilateral lower legs, bilateral past hand fractures History of Any Multi-Drug Resistant Organisms: None Reported Past Surgical History: Back Surgery, Heart Catheterization With Stent, Orthopedic Surgery Additional Past Surgical History / Comment(s): EGDs/colonoscopies with last time being 11/24/17, multiple low back surgeries, bilateral arm and bilateral thigh surgeries for brown recluse spider bites with infection, morphine pain pump insertion and removal due to infection, PCI with stents, L rotator cuff repair, L knee arthroscopy, R cataract removal. Past Anesthesia/Blood Transfusion Reactions: No Reported Reaction Additional Past Anesthesia/Blood Transfusion Reaction / Comment(s): Pt recieved blood after back surgery and tolerated it well. Date of Last Stent Placement:: 10/11/17 Smoking Status: Former smoker - Past Family History Father Additional Family Medical History / Comment(s): Father had back problems. He lived to be 82 yrs old. Mother Family Medical History: Hypertension, Myocardial Infarction ([place]) Additional Family Medical History / Comment(s): Mother of a [place] at the age of 55yrs. Brother(s) Family Medical History: Cancer Additional Family Medical History / Comment(s): Leukemia Medications and Allergies Home Medications Medication Instructions Recorded Confirmed Type Carisoprodol [Soma] 350 mg PO TID PRN 12/19/15 12/03/17 History HYDROmorphone HCL 4 mg PO QID PRN 05/27/16 12/03/17 History Diazepam 10 mg PO HS 10/04/16 12/03/17 History Aspirin 81 mg PO DAILY 01/21/17 12/03/17 History Carvedilol 25 mg PO BID 01/21/17 12/03/17 History Fluticasone Nasal [place] [Flonase 1 spray EA NOSTRIL BID 04/20/17 12/03/17 History Nasal [place]] Morphine Sulfate ER [Ms Contin] 30 mg PO TID 10/10/17 12/03/17 History Atorvastatin [Lipitor] 80 mg PO HS #30 tab 10/12/17 12/03/17 Rx Prasugrel [Effient] 10 mg PO DAILY #30 tab 10/12/17 12/03/17 Rx Lisinopril [Zestril] 5 mg PO HS #30 tab 10/13/17 12/03/17 Rx Pantoprazole Sodium [Protonix] 40 mg PO DAILY #60 tablet. 11/21/17 12/03/17 Rx Allergies Allergy/AdvReac Type Severity Reaction Status Date / Time ibuprofen [From Motrin] Allergy Rash/Hives Verified 12/03/17 07:24 ketorolac tromethamine Allergy Rash/Hives Verified 12/03/17 07:24 [From Toradol] Physical Exam Vitals: Vital Signs Temp Pulse Pulse Resp BP BP Pulse Ox 12/04/17 04:00 98.1 F 103 H 18 142/74 98 12/04/17 03:18 83 18 12/04/17 00:00 148/87 12/03/17 23:40 92 18 12/03/17 22:50 108 H 18 170/99 98 12/03/17 20:00 85 19 12/03/17 19:36 98.1 F 77 19 150/95 98 12/03/17 15:40 98.2 F 107 H 19 136/83 99 12/03/17 10:32 97.6 F 84 18 138/87 94 L 12/03/17 10:01 97.3 F L 87 18 150/90 98 12/03/17 08:31 105 H 18 167/88 99 Intake and Output 12/03/17 12/04/17 12/04/17 22:59 06:59 14:59 Output Total 50 Balance -50 Output: Emesis 50 Other: Voiding Method Toilet Toilet # Voids 2 - Constitutional General appearance: no acute distress - EENT Eyes: EOMI - Neck Neck: no lymphadenopathy - Respiratory Respiratory: bilateral: CTA - Cardiovascular Rhythm: regular Heart sounds: normal: S1, S2 - Gastrointestinal General gastrointestinal: soft, no tenderness - Psychiatric Psychiatric: A&O x's 3, appropriate affect Results CBC & Chem 7: 12/04/17 06:18 12/03/17 07:26 Labs: Abnormal Lab Results - Last 24 Hours (Table) 12/03/17 12/03/17 12/03/17 Range/Units 07:26 07:26 07:26 WBC (3.8-10.6) k/uL RBC (4.30-5.90) m/uL Hgb 12.4 L (13.0-17.5) gm/dL Hct (39.0-53.0) % MCHC 30.5 L (31.0-37.0) g/dL RDW 18.1 H (11.5-15.5) % Plt Count 479 H (150-450) k/uL Lymphocytes # (1.0-4.8) k/uL Carbon Dioxide 18 L (22-30) mmol/L BUN 8 L (9-20) mg/dL Glucose 148 H (74-99) mg/dL Calcium 10.6 H (8.4-10.2) mg/dL ALT 12 L (21-72) U/L Total Creatine Kinase 36 L (55-170) U/L 12/03/17 12/04/17 Range/Units 19:39 06:18 WBC 3.3 L 3.3 L (3.8-10.6) k/uL RBC 4.03 L 3.88 L (4.30-5.90) m/uL Hgb 10.7 L 10.0 L (13.0-17.5) gm/dL Hct 34.3 L 33.7 L (39.0-53.0) % MCHC 29.7 L (31.0-37.0) g/dL RDW 17.6 H 17.6 H (11.5-15.5) % Plt Count (150-450) k/uL Lymphocytes # 0.9 L (1.0-4.8) k/uL Carbon Dioxide (22-30) mmol/L BUN (9-20) mg/dL Glucose (74-99) mg/dL Calcium (8.4-10.2) mg/dL ALT (21-72) U/L Total Creatine Kinase (55-170) U/L Thrombosis Risk Factor Assmnt - Choose All That Apply Any of the Below Risk Factors Present?: Yes Other Risk Factors: Yes Each Risk Factor Represents 2 Points: Age 61-74 years Each Risk Factor Represents 3 Points: History of DVT/PE Other congenital or acquired thrombophilia - If yes, enter type in comment: No Thrombosis Risk Factor Assessment Total Risk Factor Score: 5 Thrombosis Risk Factor Assessment Level: High Risk Assessment and Plan (1) Accelerated hypertension Current Visit: No Status: Acute Code(s): I10 - ESSENTIAL (PRIMARY) HYPERTENSION SNOMED Code(s): 56664200 (2) GI bleed Current Visit: Yes Status: Acute Code(s): K92.2 - GASTROINTESTINAL HEMORRHAGE, UNSPECIFIED SNOMED Code(s): 10963866 (3) CAD (coronary artery disease) Current Visit: No Status: Chronic Code(s): I25.10 - ATHSCL HEART DISEASE OF [place] CORONARY ARTERY W/O ANG PCTRS SNOMED Code(s): 84863043 (4) Opiate dependence, continuous Current Visit: No Status: Chronic Priority: Low Code(s): F11.20 - OPIOID DEPENDENCE, UNCOMPLICATED SNOMED Code(s): 023226544 Plan: Given overall medical history, question need to repeat EGD. Appreciate GI input. We'll continue to follow. Reconcile home medications The patient is otherwise full code.
[2017-12-04 08:21] VITALS: RESP 16
[2017-12-04] MEDS: FLUTICASONE 50MCG/SPRAY NASAL 16GM EA NOSTRIL SCH (08:21)
[2017-12-04] MEDS: CARVEDILOL 12.5 MG TAB PO SCH (08:21)
[2017-12-04] MEDS ORDERED: ASPIRIN 81 MG PO SCH (09:00)
[2017-12-04] MEDS ORDERED: PANTOPRAZOLE 40 MG/10 ML VIAL IV SCH (09:00)
[2017-12-04 11:25] VITALS: BP 129/94; PULSE 93; TEMP 98.5
--- NOTE | 2017-12-04 12:02 | P.PN ---
Subjective Progress Note Date: 12/04/17 Principal diagnosis: hematemesis 62-year-old male limited with acute hematemesis receiving dual antiplatelet therapy suspect hematemesis secondary to Farhana-Victor tear exacerbated by antiplatelet therapy. Patient is still requesting pain medications for epigastric discomfort. Nursing states he is a very small clear watery emesis last night with slight pink tinge to it. He will than 10 this morning. Tolerating clear liquids. Afebrile. No reports of hematochezia or melena. EGD colonoscopy performed 2 weeks ago no evidence of peptic ulcer disease. Objective - Vital Signs Vital signs: Vital Signs Temp 98.5 F 12/04/17 11:23 Pulse 93 12/04/17 11:23 Resp 16 12/04/17 11:23 BP 129/94 12/04/17 11:23 Pulse Ox 99 12/04/17 11:23 Intake & Output 12/03/17 12/04/17 12/04/17 18:59 06:59 18:59 Output Total 50 Balance -50 Weight 80.739 kg Output: Emesis 50 Other: Voiding Method Toilet Toilet Toilet # Voids 1 2 - Exam General appearance: The patient is alert, oriented, in no acute distress. HET: Head is normocephalic and atraumatic. Pupils are equal and reactive. Oropharynx is clear without lesions. Neck: Supple without lymphadenopathy. Trachea midline. Heart: S1 S2. Regular rate and rhythm. Lungs: No crackles or wheezes are heard. Abdomen: Soft, mild midepigastric tenderness, nondistended with bowel sounds. No peritoneal signs. No palpable organomegaly or masses. Extremities: Normal skin color and turgor. No cyanosis, rash, ulceration, clubbing, or edema. Radial and pedal pulses are 2/4 bilaterally. Neurological: No focal deficits. Strength and sensation are grossly intact. - Labs CBC & Chem 7: 12/04/17 06:18 12/03/17 07:26 Labs: Abnormal Lab Results - Last 24 Hours (Table) 12/03/17 12/04/17 Range/Units 19:39 06:18 WBC 3.3 L 3.3 L (3.8-10.6) k/uL RBC 4.03 L 3.88 L (4.30-5.90) m/uL Hgb 10.7 L 10.0 L (13.0-17.5) gm/dL Hct 34.3 L 33.7 L (39.0-53.0) % MCHC 29.7 L (31.0-37.0) g/dL RDW 17.6 H 17.6 H (11.5-15.5) % Lymphocytes # 0.9 L (1.0-4.8) k/uL Assessment and Plan (1) Hematemesis Narrative/Plan: Differentials possible peptic ulcer disease however felt to be less likely considering no evidence of peptic ulcer disease per EGD screening 2 weeks ago. Suspect Farhana-Victor tear exacerbated by dual antiplatelet therapy. EGD colonoscopy 2 weeks ago no evidence of peptic ulcer disease mild sigmoid diverticulosis. Current Visit: Yes Status: Acute Code(s): K92.0 - HEMATEMESIS SNOMED Code( s): 1682486 (2) GI bleed Current Visit: Yes Status: Acute Code(s): K92.2 - GASTROINTESTINAL HEMORRHAGE, UNSPECIFIED SNOMED Code(s): 15982496 Plan: 1. Dr. Simmons recommends conservative measures. Continue Protonix 40 mg daily. 2. Healthy heart diet. Repeat EGD is not recommended at this time considering EGD was performed 2 weeks ago with no evidence of peptic ulcer disease. May restart antiplatelet therapy in 1-2 days if patient continues to have absence of bleeding. Assessment and plan of care discussed with Dr. Simmons
--- NOTE | 2017-12-13 16:43 | P.DS ---
Providers Date of admission: 12/03/17 09:32 Attending physician: Lucian Mares Consults: 12/03/17 09:32 Consult Physician Urgent Consulting Provider: Laura Simmons Consult Reason/Comments: gi hemorrhage Do you want consulting provider notified?: Yes Primary care physician: Lucian Mares - Discharge Diagnosis(es) (1) Accelerated hypertension Status: Acute (2) GI bleed Status: Acute (3) CAD (coronary artery disease) Status: Chronic (4) Opiate dependence, continuous Status: Chronic Priority: Low Hospital Course: This is a discharge summary on a 6. The patient was ruled out for m fairly noncompliant at times with c He is told to continue to be compliant with all his medic. Decrease smoke exposure. The Plan - Discharge Summary Discharge Rx Participant: No New Discharge Prescriptions: Continue RX: Carisoprodol [Soma] 350 mg PO TID PRN PRN Reason: Muscle Spasm RX: HYDROmorphone HCL 4 mg PO QID PRN PRN Reason: Breakthrough Pain RX: Diazepam 10 mg PO HS RX: Aspirin 81 mg PO DAILY RX: Carvedilol 25 mg PO BID RX: Fluticasone Nasal [place] [Flonase Nasal [place]] 1 spray EA NOSTRIL BID RX: Morphine Sulfate ER [Ms Contin] 30 mg PO TID RX: Atorvastatin [Lipitor] 80 mg PO HS #30 tab RX: Prasugrel [Effient] 10 mg PO DAILY #30 tab RX: Lisinopril [Zestril] 5 mg PO HS #30 tab RX: Pantoprazole Sodium [Protonix] 40 mg PO DAILY #60 tablet.dr Discharge Medication List RX: Carisoprodol [Soma] 350 mg PO TID PRN 12/19/15 [History] RX: HYDROmorphone HCL 4 mg PO QID PRN 05/27/16 [History] RX: Diazepam 10 mg PO HS 10/04/16 [History] RX: Aspirin 81 mg PO DAILY 01/21/17 [History] RX: Carvedilol 25 mg PO BID 01/21/17 [History] RX: Fluticasone Nasal [place] [Flonase Nasal [place]] 1 spray EA NOSTRIL BID [History] RX: Morphine Sulfate ER [Ms Contin] 30 mg PO TID 10/10/17 [History] RX: Atorvastatin [Lipitor] 80 mg PO HS #30 tab 10/12/17 [Rx] RX: Prasugrel [Effient] 10 mg PO DAILY #30 tab 10/12/17 [Rx] RX: Lisinopril [Zestril] 5 mg PO HS #30 tab 10/13/17 [Rx] RX: Pantoprazole Sodium [Protonix] 40 mg PO DAILY #60 tablet. 11/21/17 [Rx] Follow up Appointment(s)/Referral(s): Lucian Mares MD [Primary Care Provider] - 1 Week Activity/Diet/Wound Care/Special Instructions: pt to restart Effient in 1 day if no bleeding. Discharge Disposition: HOME SELF-CARE
== END 2017-12-04 14:34 | disposition home or self-care (01) ==
LOC: EC 07:04 → 3OBS 09:32 → UNDODISOB 12-04 07:29
PROVIDERS: ADMIT Family Medicine; ATTEND Family Medicine
DX: K92.0 Hematemesis (principal); R10.13 Epigastric pain; E78.5 Hyperlipidemia, unspecified; G89.4 Chronic pain syndrome; K21.9 Gastro-esophageal reflux disease without esophagitis; F11.20 Opioid dependence, uncomplicated; K44.9 Diaphragmatic hernia without obstruction or gangrene; D50.9 Iron deficiency anemia, unspecified; K57.30 Diverticulosis of large intestine without perforation or abscess without bleeding; K29.70 Gastritis, unspecified, without bleeding; G43.909 Migraine, unspecified, not intractable, without status migrainosus; I25.119 Atherosclerotic heart disease of native coronary artery with unspecified angina pectoris; I73.9 Peripheral vascular disease, unspecified; M54.5 Low back pain; I10 Essential (primary) hypertension; Z79.82 Long term (current) use of aspirin; Z79.51 Long term (current) use of inhaled steroids; Z79.899 Other long term (current) drug therapy; Z88.6 Allergy status to analgesic agent; Z86.718 Personal history of other venous thrombosis and embolism; Z95.5 Presence of coronary angioplasty implant and graft; Z87.891 Personal history of nicotine dependence; Z82.49 Family history of ischemic heart disease and other diseases of the circulatory system; Z87.11 Personal history of peptic ulcer disease; Z98.890 Other specified postprocedural states; Z91.14 Patient's other noncompliance with medication regimen
CPT/HCPCS: 96376 ×2; 96361; 96374; 96375; 99285; 36415; 93005; 80053; 82550; 82553; 84484; 85025 ×2; 85610; 85730; 71046; 74018; G0378 ×2; J2765; J2405 ×2; J2270 ×2; C9113 ×2

== ENCOUNTER 2018-02-26 18:33 | Emergency (ER) | payer MEDICARE, OTHER ==
[2018-02-26 18:41] VITALS: RESP 20; TEMP 97.9
--- NOTE | 2018-02-26 19:05 | ED ---
Chest Pain HPI - General Source: patient, RN notes reviewed Mode of arrival: ambulatory Limitations: no limitations - History of Present Illness MD Complaint: chest pain <Byron Shah - Last Filed: 02/26/18 20:52> <Wilman Gordillo - Last Filed: 02/26/18 22:30> - General Chief Complaint: Chest Pain Stated Complaint: Chest Pain Time Seen by Provider: 02/26/18 18:54 - History of Present Illness Initial Comments: This is a 62-year-old male with a history of heart disease and 3 stents who states he had cervical spine surgery last month at [facility] who also states he went to cardiac arrest they did CPR on him who presents tonight with complaints of anterior chest pain sharp and stabbing in nature moderate in severity increasing with movement is deep breathing she also has exertional dyspnea however. No cough no phlegm production no history of lung disease. (Byron Shah) - Related Data Home Medications Medication Instructions Recorded Confirmed Carisoprodol [Soma] 350 mg PO BID PRN 12/19/15 02/26/18 HYDROmorphone HCL 4 mg PO QID PRN 05/27/16 02/26/18 Diazepam 10 mg PO HS 10/04/16 02/26/18 Aspirin 81 mg PO DAILY 01/21/17 02/26/18 Carvedilol 25 mg PO BID 01/21/17 02/26/18 Fluticasone Nasal [place] [Flonase 1 spray EA NOSTRIL BID 04/20/17 02/26/18 Nasal [place]] Morphine Sulfate ER [Ms Contin] 30 mg PO TID 10/10/17 02/26/18 tiZANidine [Zanaflex] 4 mg PO TID PRN 02/26/18 02/26/18 Previous Rx's Medication Instructions Recorded Atorvastatin [Lipitor] 80 mg PO HS #30 tab 10/12/17 Prasugrel [Effient] 10 mg PO DAILY #30 tab 10/12/17 Lisinopril [Zestril] 5 mg PO HS #30 tab 10/13/17 Pantoprazole Sodium [Protonix] 40 mg PO DAILY #60 tablet. 11/21/17 Allergies Allergy/AdvReac Type Severity Reaction Status Date / Time ibuprofen [From Motrin] Allergy Rash/Hives Verified 02/26/18 19:40 ketorolac tromethamine Allergy Rash/Hives Verified 02/26/18 19:40 [From Toradol] Review of Systems ROS Other: All systems not noted in ROS Statement are negative. <Byron Shah - Last Filed: 02/26/18 20:52> ROS Other: All systems not noted in ROS Statement are negative. <RandWilman - Last Filed: 02/26/18 22:30> ROS Statement: Those systems with pertinent positive or pertinent negative responses have been documented in the HPI. EKG Findings - EKG Results: EKG: interpreted by ERMD, sinus rhythm (Sinus rhythm rate of 80. Interval 172 QRS duration 90 QT since QTC of 356/410 minimal voltage criteria for LVH) <Byron Shah - Last Filed: 02/26/18 20:52> Past Medical History Past Medical History: Coronary Artery Disease (CAD), Chest Pain / Angina, Deep Vein Thrombosis (DVT), GERD/Reflux, Hyperlipidemia, Hypertension Additional Past Medical History / Comment(s): 11/24/17 EGD/colonoscopy which pt states showed, gastritis, small hiatal hernia and diverticular dx, pt states years ago he had PUD, chronic low back pain, chronic pain syndrome, migraines, PVD, DVT L arm, numbness/tingling bilateral lower legs, bilateral past hand fractures History of Any Multi-Drug Resistant Organisms: None Reported Past Surgical History: Back Surgery, Heart Catheterization With Stent, Orthopedic Surgery Additional Past Surgical History / Comment(s): EGDs/colonoscopies with last time being 11/24/17, multiple low back surgeries, bilateral arm and bilateral thigh surgeries for brown recluse spider bites with infection, morphine pain pump insertion and removal due to infection, PCI with stents, L rotator cuff repair, L knee arthroscopy, R cataract removal. Past Anesthesia/Blood Transfusion Reactions: No Reported Reaction Additional Past Anesthesia/Blood Transfusion Reaction / Comment(s): Pt recieved blood after back surgery and tolerated it well. Date of Last Stent Placement:: 10/11/17 Past Psychological History: No Psychological Hx Reported Smoking Status: Former smoker Past Alcohol Use History: None Reported Past Drug Use History: None Reported - Past Family History Father Additional Family Medical History / Comment(s): Father had back problems. He lived to be 82 yrs old. Mother Family Medical History: Hypertension, Myocardial Infarction ([place]) Additional Family Medical History / Comment(s): Mother of a [place] at the age of 55yrs. Brother(s) Family Medical History: Cancer Additional Family Medical History / Comment(s): Leukemia <PabloByron - Last Filed: 02/26/18 20:52> General Exam Limitations: no limitations General appearance: alert, in no apparent distress Head exam: Present: atraumatic, normocephalic, normal inspection Eye exam: Present: normal appearance, PERRL, EOMI. Absent: scleral icterus, conjunctival injection, periorbital swelling ENT exam: Present: normal exam, mucous membranes moist Neck exam: Present: normal inspection. Absent: tenderness, meningismus, lymphadenopathy Respiratory exam: Present: normal lung sounds bilaterally. Absent: respiratory distress, wheezes, rales, rhonchi, stridor Cardiovascular Exam: Present: regular rate, normal rhythm, normal heart sounds. Absent: systolic murmur, diastolic murmur, rubs, gallop, clicks GI/Abdominal exam: Present: soft, normal bowel sounds. Absent: distended, tenderness, guarding, rebound, rigid Extremities exam: Present: normal inspection, full ROM, normal capillary refill. Absent: tenderness, pedal edema, joint swelling, calf tenderness Back exam: Present: normal inspection Neurological exam: Present: alert, oriented X3, CN II-XII intact Psychiatric exam: Present: normal affect, normal mood Skin exam: Present: warm, dry, intact, normal color. Absent: rash <PabloByron - Last Filed: 02/26/18 20:52> <Wilman Gordillo - Last Filed: 02/26/18 22:30> - General Exam Comments Initial Comments: This is a well-developed well-nourished awake alert oriented 3 male (Pablo Byron) Course <Byron Shah - Last Filed: 02/26/18 20:52> <Wilman Gordillo - Last Filed: 02/26/18 22:30> Vital Signs 02/26/18 02/26/18 18:39 20:56 Temperature 97.9 F Pulse Rate 83 80 Respiratory 20 20 Rate Blood Pressure 196/103 168/98 O2 Sat by Pulse 98 96 Oximetry - Reevaluation(s) Reevaluation #1: 02/26/18 20:52 I did review the chest x-ray no acute findings are seen. (Byron Shah) Reevaluation #2: 02/26/18 20:52 The patient's care will be endorsed to Dr. Gordillo at our shift change (Byron Shah) Chest Pain MDM <Byron Shah - Last Filed: 02/26/18 20:52> <Wilman Gordillo - Last Filed: 02/26/18 22:30> - MDM At signout time, I had taken a verbal report on this patient, and then was rounding to see the patients. When the nurse and I entered the room to address myself and evaluated the patient, he had left. He had been informed that his initial studies were unremarkable. (Wilman Gordillo) Disposition <Byron Shah - Last Filed: 02/26/18 20:52> <Wilman Gordillo - Last Filed: 02/26/18 22:30> Clinical Impression: Chest pain Disposition: Left Against Medical Advice Condition: Undetermined Instructions: Chest Pain (ED) Referrals: Lucian Mares MD [Primary Care Provider] - 1-2 days
--- NOTE | 2018-02-26 20:14 | XR ---
EXAMINATION: XR chest 2V DATE AND TIME: 02/26/2018 8:09 PM ORDERING PROVIDER: Byron Shah MD CLINICAL INDICATION: Chest Pain TECHNIQUE: PA and lateral COMPARISON: 12/03/2017 DESCRIPTION: The lungs are clear. The pleural spaces are negative. The cardiac silhouette is not enlarged. The mediastinal and pleural silhouettes are unremarkable. The skeletal structures are intact without focal findings. The soft tissues are unremarkable. IMPRESSION: NO ACUTE PROCESS.
[2018-02-26 20:57] VITALS: BP 168/98; PULSE 80
[2018-02-26 21:00] LABS: Anisocytosis Slight; Basophils % (A) 1 %; Eosinophils # (A) 0.1 k/uL (0-0.7); Eosinophils % (A) 3 %; HCT 34.8 % (39.0-53.0); HGB 10.4 gm/dL (13.0-17.5); Hypochromasia Marked; Lymphocytes % (A) 26 %; MCH 24.7 pg (25.0-35.0); MCHC 29.7 g/dL (31.0-37.0); Mean Platelet Volume 6.7; Monocytes # (A) 0.3 k/uL (0-1.0); Monocytes % (A) 9 %; Neutrophils # (A) 2.3 k/uL (1.3-7.7); Neutrophils % (A) 61 %; Platelet Count 421 k/uL (150-450); RDW 16.4 % (11.5-15.5); WBC 3.8 k/uL (3.8-10.6)
[2018-02-26 21:08] LABS: Partial Thromboplastin Time 25.2 sec (22.0-30.0); Prothrombin Time 9.9 sec (9.0-12.0)
[2018-02-26 21:13] LABS: Poikilocytosis (M) Present; Target Cells Present
[2018-02-26] MEDS ORDERED: HYDROmorphone 2 MG TAB PO STA (21:23)
[2018-02-26 21:29] LABS: ALT 10 U/L (21-72); AST 20 U/L (17-59); Albumin 4.2 g/dL (3.5-5.0); Alkaline Phosphatase 105 U/L (38-126); Anion Gap 15 mmol/L; Blood Urea Nitrogen 11 mg/dL (9-20); Calcium 9.6 mg/dL (8.4-10.2); Carbon Dioxide 24 mmol/L (22-30); Chloride 101 mmol/L (98-107); Glucose 102 mg/dL (74-99); Potassium 5.1 mmol/L (3.5-5.1); Sodium 140 mmol/L (137-145); Total Bilirubin 0.3 mg/dL (0.2-1.3); Total Protein 7.2 g/dL (6.3-8.2)
[2018-02-26 21:33] LABS: Creatine Kinase 53 U/L (55-170)
[2018-02-26] MEDS ORDERED: MORPHINE SULFATE ER 30 MG TABLET PO STA (21:40)
[2018-02-26 21:46] LABS: Creatine Kinase MB 0.5 ng/mL (0.0-2.4); Troponin I <0.012 ng/mL (0.000-0.034)
== END 2018-02-26 22:05 | disposition left against medical advice (07) ==
LOC: EC 18:33
DX: R07.9 Chest pain, unspecified (principal); I25.10 Atherosclerotic heart disease of native coronary artery without angina pectoris; I11.9 Hypertensive heart disease without heart failure; G89.4 Chronic pain syndrome; Z86.718 Personal history of other venous thrombosis and embolism; Z95.5 Presence of coronary angioplasty implant and graft; Z87.891 Personal history of nicotine dependence; Z79.51 Long term (current) use of inhaled steroids; Z79.82 Long term (current) use of aspirin; Z79.891 Long term (current) use of opiate analgesic; Z79.899 Other long term (current) drug therapy; Z88.6 Allergy status to analgesic agent
CPT/HCPCS: 36415; 71046; 80053; 82550; 82553; 83735; 83880; 84484; 85025; 85610; 85730; 93005; 99285

== ENCOUNTER 2018-04-16 20:39 | Emergency (ER) | payer MEDICARE, OTHER ==
[2018-04-16 20:44] VITALS: RESP 18
[2018-04-16] MEDS ORDERED: SODIUM CHLORIDE 0.9% 500 ML IV STA (22:09)
[2018-04-16] MEDS ORDERED: ACETAMINOPHEN TAB 500 MG TAB PO STA (22:09)
[2018-04-16] MEDS ORDERED: IPRATROPIUM-ALBUTEROL 3 ML NEB INHALATION STA (22:09)
--- NOTE | 2018-04-16 22:14 | ED ---
URI HPI - General Chief Complaint: Upper Respiratory Infection Stated Complaint: Chest pain Time Seen by Provider: 04/16/18 21:47 Source: patient Mode of arrival: ambulatory Limitations: no limitations - History of Present Illness Initial Comments: Patient is a 62-year-old male presenting for coughing. Patient states that he thinks he has pneumonia as his had similar symptoms and was admitted to hospital for pneumonia. He states that for the last 5 days, he has been having coughing with green and brown sputum production and had a fever for 101F. He states that he has a stabbing sensation on the left side of his ribs for the last couple days that is really only there with coughing. He denies any nausea/ vomiting and admits to some diarrhea. He denies any shortness of breath as well. - Related Data Home Medications Medication Instructions Recorded Confirmed Carisoprodol [Soma] 350 mg PO BID PRN 12/19/15 04/16/18 HYDROmorphone HCL 4 mg PO QID PRN 05/27/16 04/16/18 Diazepam 10 mg PO HS 10/04/16 04/16/18 Aspirin 81 mg PO DAILY 01/21/17 04/16/18 Carvedilol 25 mg PO BID 01/21/17 04/16/18 Fluticasone Nasal [place] [Flonase 1 spray EA NOSTRIL BID 04/20/17 04/16/18 Nasal [place]] Morphine Sulfate ER [Ms Contin] 30 mg PO TID 10/10/17 04/16/18 tiZANidine [Zanaflex] 4 mg PO TID PRN 02/26/18 04/16/18 Previous Rx's Medication Instructions Recorded Atorvastatin [Lipitor] 80 mg PO HS #30 tab 10/12/17 Prasugrel [Effient] 10 mg PO DAILY #30 tab 10/12/17 Lisinopril [Zestril] 5 mg PO HS #30 tab 10/13/17 Pantoprazole Sodium [Protonix] 40 mg PO DAILY #60 tablet. 11/21/17 Levofloxacin [Levaquin] 750 mg PO DAILY #5 tab 04/17/18 Allergies Allergy/AdvReac Type Severity Reaction Status Date / Time ibuprofen [From Motrin] Allergy Rash/Hives Verified 04/16/18 21:52 ketorolac tromethamine Allergy Rash/Hives Verified 04/16/18 21:52 [From Toradol] Review of Systems ROS Statement: Those systems with pertinent positive or pertinent negative responses have been documented in the HPI. Constitutional: Positive for chills, fatigue and fever. HENT: Negative for congestion. Respiratory: Negative for chest tightness, shortness of breath and wheezing. Positive for cough Cardiovascular: Negative for palpitations. Positive for chest pain Gastrointestinal: Negative for abdominal pain. Negative for abdominal distention , nausea and vomiting. Positive for diarrhea, Genitourinary: Negative for dysuria. Musculoskeletal: Negative for back pain, neck pain and neck stiffness. Skin: Negative for color change. Neurological: Negative for dizziness, speech difficulty, weakness and light- headedness. Psychiatric/Behavioral: Negative for agitation and confusion. The patient is not nervous/anxious. ROS Other: All systems not noted in ROS Statement are negative. Past Medical History Past Medical History: Coronary Artery Disease (CAD), Chest Pain / Angina, Deep Vein Thrombosis (DVT), GERD/Reflux, Hyperlipidemia, Hypertension Additional Past Medical History / Comment(s): 11/24/17 EGD/colonoscopy which pt states showed, gastritis, small hiatal hernia and diverticular dx, pt states years ago he had PUD, chronic low back pain, chronic pain syndrome, migraines, PVD, DVT L arm, numbness/tingling bilateral lower legs, bilateral past hand fractures History of Any Multi-Drug Resistant Organisms: None Reported Past Surgical History: Back Surgery, Heart Catheterization With Stent, Orthopedic Surgery Additional Past Surgical History / Comment(s): EGDs/colonoscopies with last time being 11/24/17, multiple low back surgeries, bilateral arm and bilateral thigh surgeries for brown recluse spider bites with infection, morphine pain pump insertion and removal due to infection, PCI with stents, L rotator cuff repair, L knee arthroscopy, R cataract removal. Past Anesthesia/Blood Transfusion Reactions: No Reported Reaction Additional Past Anesthesia/Blood Transfusion Reaction / Comment(s): Pt recieved blood after back surgery and tolerated it well. Date of Last Stent Placement:: 10/11/17 Past Psychological History: No Psychological Hx Reported Smoking Status: Former smoker Past Alcohol Use History: None Reported Past Drug Use History: None Reported - Past Family History Father Additional Family Medical History / Comment(s): Father had back problems. He lived to be 82 yrs old. Mother Family Medical History: Hypertension, Myocardial Infarction ([place]) Additional Family Medical History / Comment(s): Mother of a [place] at the age of 55yrs. Brother(s) Family Medical History: Cancer Additional Family Medical History / Comment(s): Leukemia General Exam - General Exam Comments Initial Comments: Constitutional: Pt is oriented to person, place, and time. Pt appears well- developed and well-nourished. No distress. HENT: Head: Normocephalic and atraumatic. Eyes: EOM are normal. Neck: Normal range of motion. Neck supple. Cardiovascular: Normal rate, regular rhythm, S1 normal, S2 normal and normal heart sounds. Exam reveals no gallop and no friction rub. No murmur heard. Pulmonary/Chest: Effort normal and breath sounds normal. No tachypnea and no bradypnea. No respiratory distress. No wheezes or rales noted. Abdominal: Soft. Bowel sounds are normal. Pt exhibits no shifting dullness, no distension, no pulsatile liver, no fluid wave, no abdominal bruit and no ascites. There is no tenderness. There is no rigidity, no rebound, no guarding, no tenderness at McBurney's point and negative Lizarraga's sign. Musculoskeletal: Normal range of motion. Neurological: Pt is alert and oriented to person, place, and time. No cranial nerve deficit. Skin: Skin is warm and dry. No rash noted. Pt is not diaphoretic. No erythema. No pallor. Psychiatric: Pt has a normal mood and affect. Pt behavior is normal. Thought content normal. Limitations: no limitations Course Vital Signs 04/16/18 04/16/18 04/16/18 20:40 22:03 22:48 Temperature 98.4 F Pulse Rate 89 89 Respiratory 18 18 Rate Blood Pressure 187/102 O2 Sat by Pulse 100 Oximetry 04/16/18 04/17/18 22:56 00:34 Temperature 98.3 F Pulse Rate 89 73 Respiratory 18 Rate Blood Pressure 155/92 O2 Sat by Pulse 97 Oximetry Medical Decision Making - Medical Decision Making Laboratory studies showed that hemoglobin was stable at 11.7 and there is no evidence of leukocytosis. A letter lites are also within normal limits and EKG showed no concerning signs for ACS. Troponin was also noted to be negative and chest x-ray showed no infiltrates. Patient was given breathing treatment and stated that her symptoms was much improved. However, because of the patient having fever in the past it was felt that patient should be started empirically on antibiotics and was therefore given a prescription for Levaquin. He was also advised that this could be secondary to viral bronchitis and it this is the case, he may not see improvement with the antibiotics. Therefore he was advised to follow-up for a promptly with his PCP in the next 1-2 days which she was agreeable with. At the time of disposition, the patient had no chest pain and had no chest pain during his stay at all in addition to no shortness of breath. - Lab Data Result diagrams: 04/16/18 23:19 04/16/18 23:19 Lab Results 04/16/18 04/16/18 04/16/18 Range/Units 23:19 23:19 23:19 WBC 4.0 (3.8-10.6) k/uL RBC 4.83 (4.30-5.90) m/uL Hgb 11.7 L (13.0-17.5) gm/dL Hct 38.5 L (39.0-53.0) % MCV 79.6 L (80.0-100.0) fL MCH 24.3 L (25.0-35.0) pg MCHC 30.5 L (31.0-37.0) g/dL RDW 17.5 H (11.5-15.5) % Plt Count 511 H (150-450) k/uL Neutrophils % 56 % Lymphocytes % 32 % Monocytes % 7 % Eosinophils % 2 % Basophils % 1 % Neutrophils # 2.2 (1.3-7.7) k/uL Lymphocytes # 1.3 (1.0-4.8) k/uL Monocytes # 0.3 (0-1.0) k/uL Eosinophils # 0.1 (0-0.7) k/uL Basophils # 0.0 (0-0.2) k/uL Hypochromasia Slight Anisocytosis Slight Microcytosis Slight Sodium 139 (137-145) mmol/L Potassium 4.4 (3.5-5.1) mmol/L Chloride 102 (98-107) mmol/L Carbon Dioxide 24 (22-30) mmol/L Anion Gap 13 mmol/L BUN 8 L (9-20) mg/dL Creatinine 0.60 L (0.66-1.25) mg/dL Est GFR (CKD-EPI)AfAm >90 (>60 ml/min/1.73 sqM) Est GFR (CKD-EPI)NonAf >90 (>60 ml/min/1.73 sqM) Glucose 112 H (74-99) mg/dL Calcium 9.3 (8.4-10.2) mg/dL Magnesium 2.1 (1.6-2.3) mg/dL Troponin I <0.012 (0.000-0.034) ng/mL - EKG Data EKG Comments: EKG shows normal sinus rhythm of a rate of 83 bpm, [place] interval 156, QRS 92, QTC 423. There is no significant ST depressions or elevations Disposition Clinical Impression: Cough Disposition: HOME SELF-CARE Condition: Good Instructions: Upper Respiratory Infection (ED) Prescriptions: Levofloxacin [Levaquin] 750 mg PO DAILY #5 tab Is patient prescribed a controlled substance at d/c from ED?: No Referrals: Lucian Mares MD [Primary Care Provider] - 1-2 days Time of Disposition: 00:31
[2018-04-16 23:28] LABS: Anisocytosis Slight; Basophils % (A) 1 %; Eosinophils # (A) 0.1 k/uL (0-0.7); Eosinophils % (A) 2 %; HCT 38.5 % (39.0-53.0); HGB 11.7 gm/dL (13.0-17.5); Hypochromasia Slight; Lymphocytes # (A) 1.3 k/uL (1.0-4.8); Lymphocytes % (A) 32 %; MCH 24.3 pg (25.0-35.0); MCHC 30.5 g/dL (31.0-37.0); MCV 79.6 fL (80.0-100.0); Mean Platelet Volume 6.3; Microcytosis Slight; Monocytes # (A) 0.3 k/uL (0-1.0); Monocytes % (A) 7 %; Neutrophils # (A) 2.2 k/uL (1.3-7.7); Neutrophils % (A) 56 %; Platelet Count 511 k/uL (150-450); RBC 4.83 m/uL (4.30-5.90); RDW 17.5 % (11.5-15.5)
[2018-04-16 23:37] LABS: Anion Gap 13 mmol/L; Blood Urea Nitrogen 8 mg/dL (9-20); Calcium 9.3 mg/dL (8.4-10.2); Carbon Dioxide 24 mmol/L (22-30); Chloride 102 mmol/L (98-107); Glucose 112 mg/dL (74-99); Magnesium 2.1 mg/dL (1.6-2.3); Potassium 4.4 mmol/L (3.5-5.1); Sodium 139 mmol/L (137-145)
--- NOTE | 2018-04-16 23:45 | XR ---
EXAMINATION TYPE: XR chest 2V DATE OF EXAM: 04/16/2018 COMPARISON: 02/26/2018 HISTORY: Cough TECHNIQUE: Frontal and lateral views of the chest are obtained. FINDINGS: Heart and mediastinum are normal. Lungs are clear. Diaphragm is normal. Bony thorax is int act. There is cervical spine fusion surgery. IMPRESSION: No cardiopulmonary disease. No change.
[2018-04-17 00:35] VITALS: BP 155/92; PULSE 73; TEMP 98.3
== END 2018-04-17 01:00 | disposition home or self-care (01) ==
LOC: EC 20:39
DX: R05 Cough (principal); R19.7 Diarrhea, unspecified; I10 Essential (primary) hypertension; I25.10 Atherosclerotic heart disease of native coronary artery without angina pectoris; G89.4 Chronic pain syndrome; Z87.891 Personal history of nicotine dependence; Z79.51 Long term (current) use of inhaled steroids; Z79.82 Long term (current) use of aspirin; Z79.891 Long term (current) use of opiate analgesic; Z79.899 Other long term (current) drug therapy; Z88.6 Allergy status to analgesic agent; Z95.5 Presence of coronary angioplasty implant and graft; Z82.49 Family history of ischemic heart disease and other diseases of the circulatory system
CPT/HCPCS: 36415; 71046; 80048; 83735; 84484; 85025; 93005; 94640; 96360; 96361; 99284

== ENCOUNTER 2018-05-01 16:49 | Observation (INO) | payer MEDICARE, OTHER ==
[2018-05-01] MEDS ORDERED: ASPIRIN 81 MG PO STA (17:12)
[2018-05-01] MEDS ORDERED: ONDANSETRON 4 MG/2 ML VIAL IVP STA (17:12)
[2018-05-01] MEDS ORDERED: SODIUM CHLORIDE 0.9% 1,000 ML IV STA (17:12)
--- NOTE | 2018-05-01 17:24 | ED ---
Chest Pain HPI - General Source: patient, RN notes reviewed Mode of arrival: ambulatory Limitations: no limitations <Cee Huggins - Last Filed: 05/01/18 19:00> <Byron Shah - Last Filed: 05/01/18 19:43> - General Chief Complaint: Chest Pain Stated Complaint: chest pain; tingling in fingers Time Seen by Provider: 05/01/18 17:00 - History of Present Illness Initial Comments: This is a 62-year-old male who presents to the emergency department with chief complaint of chest pain and right arm tingling since yesterday. Patient reports the chest pain is intermittent, coming every 20-25 minutes and lasting for approximately 20 minutes each time. He describes the pain as sharp and stabbing. He also reports right arm tingling and weakness that started yesterday. He states that digits 2 and 3 on his right hand feel numb. He states that this also began yesterday. He went to [facility] emergency department yesterday and reports that they wanted to do a heart catheterization. Patient states that he signed out AMA because he became scared to undergo a heart cath. Patient does have a history of 3 stents and is on Effient. He states that his last stent was placed in [address] Go. Patient also reports that since yesterday he has been having vomiting and diarrhea. He states that his last episode of vomiting was this morning at 2 AM. He states he vomited 4 times. He also reports epigastric pain that he describes as cramping and spasms. Patient also complains of shortness of breath on exertion. He denies any recent fevers or chills, headache or dizziness, vision changes. (Cee Huggins) - Related Data Home Medications Medication Instructions Recorded Confirmed Carisoprodol [Soma] 350 mg PO BID PRN 12/19/15 04/16/18 HYDROmorphone HCL 4 mg PO QID PRN 05/27/16 04/16/18 Diazepam 10 mg PO HS 10/04/16 04/16/18 Aspirin 81 mg PO DAILY 01/21/17 04/16/18 Carvedilol 25 mg PO BID 01/21/17 04/16/18 Fluticasone Nasal [place] [Flonase 1 spray EA NOSTRIL BID 04/20/17 04/16/18 Nasal [place]] Morphine Sulfate ER [Ms Contin] 30 mg PO TID 10/10/17 04/16/18 tiZANidine [Zanaflex] 4 mg PO TID PRN 02/26/18 04/16/18 Previous Rx's Medication Instructions Recorded Atorvastatin [Lipitor] 80 mg PO HS #30 tab 10/12/17 Prasugrel [Effient] 10 mg PO DAILY #30 tab 10/12/17 Lisinopril [Zestril] 5 mg PO HS #30 tab 10/13/17 Pantoprazole Sodium [Protonix] 40 mg PO DAILY #60 tablet. 11/21/17 Levofloxacin [Levaquin] 750 mg PO DAILY #5 tab 04/17/18 Allergies Allergy/AdvReac Type Severity Reaction Status Date / Time ibuprofen [From Motrin] Allergy Rash/Hives Verified 05/01/18 16:59 ketorolac tromethamine Allergy Rash/Hives Verified 05/01/18 16:59 [From Toradol] Review of Systems ROS Other: All systems not noted in ROS Statement are negative. <Cee Huggins - Last Filed: 05/01/18 19:00> ROS Other: All systems not noted in ROS Statement are negative. <Byron Shah - Last Filed: 05/01/18 19:43> ROS Statement: Those systems with pertinent positive or pertinent negative responses have been documented in the HPI. EKG Findings - EKG Comments: EKG Findings:: 17:16:52. Normal sinus rhythm. Ventricular rate 96 bpm, CO interval 158, QRS duration 88, QT/QTC 346/437. No evidence of ST segment elevation or depression. No significant changes when compared to EKG of 2017. <Cee Huggins - Last Filed: 05/01/18 19:00> Past Medical History Past Medical History: Coronary Artery Disease (CAD), Chest Pain / Angina, Deep Vein Thrombosis (DVT), GERD/Reflux, Hyperlipidemia, Hypertension Additional Past Medical History / Comment(s): 11/24/17 EGD/colonoscopy which pt states showed, gastritis, small hiatal hernia and diverticular dx, pt states years ago he had PUD, chronic low back pain, chronic pain syndrome, migraines, PVD, DVT L arm, numbness/tingling bilateral lower legs, bilateral past hand fractures History of Any Multi-Drug Resistant Organisms: None Reported Past Surgical History: Back Surgery, Heart Catheterization With Stent, Orthopedic Surgery Additional Past Surgical History / Comment(s): EGDs/colonoscopies with last time being 11/24/17, multiple low back surgeries, bilateral arm and bilateral thigh surgeries for brown recluse spider bites with infection, morphine pain pump insertion and removal due to infection, PCI with stents, L rotator cuff repair, L knee arthroscopy, R cataract removal. Past Anesthesia/Blood Transfusion Reactions: No Reported Reaction Additional Past Anesthesia/Blood Transfusion Reaction / Comment(s): Pt recieved blood after back surgery and tolerated it well. Date of Last Stent Placement:: 10/11/17 Past Psychological History: No Psychological Hx Reported Smoking Status: Former smoker Past Alcohol Use History: None Reported Past Drug Use History: None Reported - Past Family History Father Additional Family Medical History / Comment(s): Father had back problems. He lived to be 82 yrs old. Mother Family Medical History: Hypertension, Myocardial Infarction (VT) Additional Family Medical History / Comment(s): Mother of a VT at the age of 55yrs. Brother(s) Family Medical History: Cancer Additional Family Medical History / Comment(s): Leukemia <Cee Huggins - Last Filed: 05/01/18 19:00> General Exam Limitations: no limitations <Cee Huggins - Last Filed: 05/01/18 19:00> <Byron Shah - Last Filed: 05/01/18 19:43> - General Exam Comments Initial Comments: General: Awake and alert, well-developed; in no apparent distress. HEENT: Head atraumatic, normocephalic. Pupils are equal, round and reactive to light. Extraocular movements intact. Oropharynx moist without erythema or exudate. Neck: Supple. Normal ROM. Cardiovascular: Regular rate and rhythm. No murmurs, rubs or gallops. Chest symmetrical. Radial pulses are 2+ equal and palpable bilaterally. Respiratory: Lungs clear to auscultation bilaterally. No wheezes, rales or rhonchi. Normal respiratory effort with no use of accessory muscles. Abdomen: Soft, non-tender, non-distended. No rigidity, rebound or guarding. Normal bowel sounds in all 4 quadrants. Musculoskeletal: Normal ROM, no tenderness bilateral upper and lower extremities. Skin: Zimmerman, warm and dry without rashes or lesions. Neurological: Alert and oriented x3. CN II-XII grossly intact. Speech is fluent and answers are appropriate. Against resistance, weakness is noted in the right arm when compared to the left. Rotary Engraver strength in the right hand is also decreased when compared to the left. No weakness noted in bilateral lower extremities or left arm. Sensation is intact. Patient is able to discern dull from sharp in bilateral extremities. Psychiatric: Normal mood and affect. No overt signs of depression or anxiety noted. (Cee Huggins) Course <Cee Huggins - Last Filed: 05/01/18 19:00> <Byron Shah - Last Filed: 05/01/18 19:43> Vital Signs 05/01/18 05/01/18 16:56 18:12 Temperature 98.1 F Pulse Rate 95 92 Respiratory 16 18 Rate Blood Pressure 175/101 163/101 O2 Sat by Pulse 99 99 Oximetry - Reevaluation(s) Reevaluation #1: 05/01/18 19:43 PA supervision: I did personally do a [id number] evaluation the patient and did discuss the findings with him. Patient does have a history of 3 stents he also states he was [facility] in [facility] yesterday they wanted to keep him and do a cath he was afraid so he came here instead. He had his previous stents in this facility. He will be admitted at this time. (Byron Shah) Chest Pain [facility] <Cee Huggins - Last Filed: 05/01/18 19:00> <Byron Shah - Last Filed: 05/01/18 19:43> - MDM This is a 62-year-old male who presents to the emergency department with chief complaint of chest pain and right arm tingling since yesterday. Patient was seen at [facility] and left [facility]. He states that they wanted to do a heart cath. Patient describes the chest pain is intermittent, sharp and stabbing. He was given aspirin and started on nitro paste. EKG revealed normal sinus rhythm. Chest x-ray revealed no acute abnormalities. Troponin and cardiac profile were negative. On physical examination, right upper extremity was weaker when compared to strength in the left upper extremity. A computed tomography scan of the brain was obtained which revealed no acute intracranial hemorrhages. It did suggest follow-up MRA for evaluation of small aneurysm. While in the emergency department, patient continues to complain of chest pain. This case was discussed with attending physician, Dr. Shah, who also evaluated the patient. Patient was started on heparin drip and given morphine. He will be admitted to Dr. Mares with consult to cardiology. Vital signs are stable and patient is in no acute distress. Patient is in agreement with admission. Chest x-ray impression: No acute process. Computed tomography scan of the brain without contrast impression: No acute hemorrhage or mass effect. Nonspecific low attenuation within the white matter. If there is concern for acute ischemia correlate with MRI. Additionally there is mild prominence of the tip of the basilar artery would recommend follow-up MRA [facility] Gonsal[facility] exclude small aneurysm. As read by Dr. Salvador. (Cee Huggins) Disposition Is patient prescribed a controlled substance at d/c from ED?: No Time of Disposition: 19:41 <Cee Huggins - Last Filed: 05/01/18 19:00> <Byron Shah - Last Filed: 05/01/18 19:43> Clinical Impression: Unstable angina, Chest pain Disposition: ADMITTED IP TO THIS HOSP Condition: Stable Referrals: Lucian Mares MD [Primary Care Provider] - 1-2 days
[2018-05-01 18:05] LABS: Anisocytosis Slight; Basophils % (A) 1 %; Eosinophils # (A) 0.1 k/uL (0-0.7); Eosinophils % (A) 4 %; HCT 37.1 % (39.0-53.0); HGB 11.7 gm/dL (13.0-17.5); Lymphocytes # (A) 0.9 k/uL (1.0-4.8); Lymphocytes % (A) 29 %; MCHC 31.4 g/dL (31.0-37.0); MCV 79.8 fL (80.0-100.0); Mean Platelet Volume 6.7; Microcytosis Slight; Monocytes # (A) 0.3 k/uL (0-1.0); Monocytes % (A) 10 %; Neutrophils # (A) 1.7 k/uL (1.3-7.7); Neutrophils % (A) 55 %; Platelet Count 314 k/uL (150-450); RBC 4.66 m/uL (4.30-5.90); WBC 3.1 k/uL (3.8-10.6)
[2018-05-01 18:15] LABS: ALT 22 U/L (21-72); AST 15 U/L (17-59); Albumin 4.3 g/dL (3.5-5.0); Alkaline Phosphatase 89 U/L (38-126); Amylase 102 U/L (30-110); Anion Gap 13 mmol/L; Blood Urea Nitrogen 7 mg/dL (9-20); Calcium 9.8 mg/dL (8.4-10.2); Carbon Dioxide 27 mmol/L (22-30); Chloride 106 mmol/L (98-107); Glucose 113 mg/dL (74-99); Lipase 102 U/L (23-300); Magnesium 1.9 mg/dL (1.6-2.3); Potassium 3.9 mmol/L (3.5-5.1); Sodium 146 mmol/L (137-145); Total Bilirubin 0.4 mg/dL (0.2-1.3); Total Protein 7.1 g/dL (6.3-8.2)
[2018-05-01 18:16] LABS: INR 1.1 (<1.2); Partial Thromboplastin Time 24.2 sec (22.0-30.0); Prothrombin Time 10.8 sec (9.0-12.0)
[2018-05-01 18:18] LABS: Creatine Kinase 78 U/L (55-170)
[2018-05-01 18:31] LABS: Creatine Kinase MB 0.7 ng/mL (0.0-2.4); Troponin I <0.012 ng/mL (0.000-0.034)
--- NOTE | 2018-05-01 18:38 | XR ---
EXAMINATION TYPE: XR chest 2V DATE OF EXAM: 05/01/2018 COMPARISON: 04/16/2018 TECHNIQUE: PA and lateral views submitted. HISTORY: Chest pain FINDINGS: The lungs are clear and there is no pneumothorax, pleural effusion, or focal pneumonia. Postsurgica l change overlying the cervical spine. Degenerative change of the spine. Surgical clips in the abdome n. IMPRESSION: 1. No acute process.
[2018-05-01 18:43] LABS: Appearance,Urine Clear (Clear); Bilirubin,Urine Negative (Negative); Blood,Urine Negative (Negative); Color,Urine Yellow; Glucose,Urine (UA) Negative (Negative); Ketones,Urine Negative (Negative); Leukocyte Esterase,Urine Negative (Negative); Nitrite,Urine Negative (Negative); PH, Urine 7.5 (5.0-8.0); Protein,Urine Negative (Negative); Specific Gravity,Urine 1.013 (1.001-1.035)
--- NOTE | 2018-05-01 18:43 | CT ---
EXAMINATION TYPE: CT brain wo con DATE OF EXAM: 05/01/2018 COMPARISON: NONE HISTORY: weakness CT DLP: 1263 mGycm Automated exposure control for dose reduction was used. FINDINGS: Ventricular system is midline. Calvarium intact. No mass effect or midline shift. No acute intracranial hemorrhage. Nonspecific low-attenuation is see n within the white matter. IMPRESSION: NO ACUTE HEMORRHAGE OR MASS EFFECT. NONSPECIFIC LOW-ATTENUATION WITHIN THE WHITE MATTER. IF THERE IS CONCERN FOR ACUTE ISCHEMIA CORRELATE WITH MRI. ADDITIONALLY THERE IS MILD PROMINENCE THE TIP OF THE B ASILAR ARTERY WOULD RECOMMEND FOLLOW-UP MRA [facility] EXCLUDE SMALL ANEURYSM
[2018-05-01] MEDS ORDERED: NITROGLYCERIN OINT 1 INCH/GM PACKET TOPICAL STA (18:54)
[2018-05-01] MEDS ORDERED: NITROGLYCERIN SL TABS 0.4 MG TAB SUBLINGUAL PRN (19:42)
[2018-05-01] MEDS ORDERED: HEPARIN SODIUM,PORCINE 5,000 UNIT/ML 1 ML VIAL IV ONE (19:42)
[2018-05-01] MEDS ORDERED: MORPHINE SULFATE 2 MG/ML SYRINGE IVP STA (19:45)
[2018-05-01] MEDS ORDERED: HEPARIN SODIUM,PORCINE/D5W PMX 25,000 UNIT in DEXTROSE/WATER 1 500ML.BAG IV SCH (19:45)
[2018-05-01] MEDS: SODIUM CHLORIDE 0.9% 1,000 ML IV SCH (20:04)
[2018-05-01] MEDS ORDERED: LISINOPRIL 5 MG TAB PO SCH (21:45)
[2018-05-01 22:13] VITALS: BMI 25.4
[2018-05-01] MEDS: DIAZEPAM 5 MG TAB PO SCH (22:33)
[2018-05-01] MEDS: MORPHINE SULFATE ER 30 MG TABLET PO SCH (22:34)
[2018-05-02] MEDS: MORPHINE SULFATE 2 MG/ML SYRINGE IVP PRN ×5 (00:56→23:31)
[2018-05-02] MEDS: FLUTICASONE 50MCG/SPRAY NASAL 16GM EA NOSTRIL SCH ×3 (00:57→20:17)
[2018-05-02] MEDS: ATORVASTATIN 80 MG TAB PO SCH ×2 (01:00→20:17)
[2018-05-02] MEDS: CARVEDILOL 12.5 MG TAB PO SCH ×2 (01:00→08:48)
[2018-05-02 01:45] LABS: Creatine Kinase 66 U/L (55-170)
[2018-05-02 01:58] LABS: Creatine Kinase MB 0.8 ng/mL (0.0-2.4); Troponin I <0.012 ng/mL (0.000-0.034)
[2018-05-02] MEDS ORDERED: ONDANSETRON 4 MG/2 ML VIAL IVP PRN (03:05)
[2018-05-02 05:59] LABS: Cholesterol 169 mg/dL (<200); HDL Cholesterol 48 mg/dL (40-60); LDL Cholesterol,Calculated 106 mg/dL (0-99); Triglycerides 75 mg/dL (<150)
[2018-05-02 06:15] LABS: Creatine Kinase MB 0.8 ng/mL (0.0-2.4); Troponin I 0.023 ng/mL (0.000-0.034)
[2018-05-02] MEDS ORDERED: DOBUTamine DRIP for NUC MED 500 MG in DEXTROSE/WATER 1 250ML.BAG IV ONE (08:34)
[2018-05-02] MEDS: ASPIRIN 81 MG PO SCH (08:49)
[2018-05-02] MEDS: MORPHINE SULFATE ER 30 MG TABLET PO SCH ×3 (08:49→21:45)
[2018-05-02] MEDS ORDERED: ASPIRIN 325 MG TAB PO SCH (09:00)
--- NOTE | 2018-05-02 09:16 | P.CRDCN ---
History of Present Illness History of present illness: Mr. Johnson is a pleasant 62-year-old -Mac[place] male past medical history significant for coronary artery disease status post angioplasty, dyslipidemia and hypertension. We have been asked to see him in consultation secondary to symptoms of chest discomfort. He recently underwent cardiac catheterization in October 2017 which revealed patent stent of the LAD as well as patent stenting of the diagonal branch at the bifurcation. His most recent angioplasty and September 2017 is when he underwent his stenting of the diagonal branch. At that time medical therapy was recommended. He states on Thursday he started with some chest discomfort and he went to [facility] for evaluation. He recommended he have a cardiac catheterization for assessment of his coronary artery disease. He left AGAINST MEDICAL ADVICE. The symptoms he describes are stabbing pain mid-sternal with sob, nausea, vomiting, diaphoresis, dizziness. This started Thursday at rest. The pain has been intermittent in nature since with no specific aggravating or alleviating factors. He complains of associated shortness of breath, dizziness, nausea, vomiting, diaphoresis and diarrhea. EKG on arrival reveals sinus mechanism with no acute ST or T-wave abnormalities. Chest x-ray is negative for an acute cardiopulmonary process. Laboratory data reviewed, WBC 3.1, hemoglobin 11.7, platelets 314, sodium 146, potassium 3.9, magnesium 1.9, creatinine 0.6, cardiac enzymes negative 3, LDL 106, HDL 48. Current cardiac medications include aspirin 81 mg daily, atorvastatin 80 mg daily, carvedilol 25 mg twice a day, lisinopril 5 mg daily and Effient 10 mg daily. He states he is compliant with his medications. Most recent echocardiogram revealed ejection fraction 6065%, moderate concentric left ventricular hypertrophy and mildly thickened aortic valve with no significant stenosis noted. Review of Systems At the time of my exam: CONSTITUTIONAL: Denies fever. Denies chills. EYES: Denies blurred vision. Denies vision changes. Denies eye pain. EARS, NOSE, MOUTH & THROAT: Denies headache. Denies sore throat. Denies ear pain. CARDIOVASCULAR: Denies chest pain. Denies shortness of breath. Denies orthopnea. Denies PND. Denies palpitations. RESPIRATORY: Denies cough. GASTROINTESTINAL: Denies abdominal pain. Denies diarrhea. Denies constipation. Denies nausea. Denies vomiting. MUSCULOSKELETAL: Denies myalgias. INTEGUMENTARY: Denies pruitis. Denies rash. NEUROLOGIC: Denies numbness. Denies tingling. Denies weakness. PSYCHIATRIC: Denies anxiety. Denies depression. ENDOCRINE: Denies fatigue. Denies weight change. Denies polydipsia. Denies polyurina. GENITOURINARY: Denies burning, hematuria or urgency with micturation. HEMATOLOGIC: Denies history of anemia. Denies bleeding. Past Medical History Past Medical History: Coronary Artery Disease (CAD), Chest Pain / Angina, Deep Vein Thrombosis (DVT), GERD/Reflux, Hyperlipidemia, Hypertension Additional Past Medical History / Comment(s): 11/24/17 EGD/colonoscopy which pt states showed, gastritis, small hiatal hernia and diverticular dx, pt states years ago he had PUD, chronic low back pain, chronic pain syndrome, migraines, PVD, DVT L arm, numbness/tingling bilateral lower legs, bilateral past hand fractures History of Any Multi-Drug Resistant Organisms: None Reported Past Surgical History: Back Surgery, Heart Catheterization With Stent, Orthopedic Surgery Additional Past Surgical History / Comment(s): EGDs/colonoscopies with last time being 11/24/17, multiple low back surgeries, bilateral arm and bilateral thigh surgeries for brown recluse spider bites with infection, morphine pain pump insertion and removal due to infection, PCI with stents, L rotator cuff repair, L knee arthroscopy, R cataract removal. Past Anesthesia/Blood Transfusion Reactions: No Reported Reaction Additional Past Anesthesia/Blood Transfusion Reaction / Comment(s): Pt recieved blood after back surgery and tolerated it well. Date of Last Stent Placement:: 10/11/17 Past Psychological History: No Psychological Hx Reported Additional Psychological History / Comment(s): He is fairly independent. He uses a walker to ambulate. Pt drives. He currently has [facility] nurse that sees him once a week. Smoking Status: Former smoker Past Alcohol Use History: None Reported Additional Past Alcohol Use History / Comment(s): Pt started smoking in 1973 and quit in 1984 Past Drug Use History: None Reported - Past Family History Father Additional Family Medical History / Comment(s): Father had back problems. He lived to be 82 yrs old. Mother Family Medical History: Hypertension, Myocardial Infarction (MN) Additional Family Medical History / Comment(s): Mother of a [place] at the age of 55yrs. Brother(s) Family Medical History: Cancer Additional Family Medical History / Comment(s): Leukemia Medications and Allergies Home Medications Medication Instructions Recorded Confirmed Type Carisoprodol [Soma] 350 mg PO BID PRN 12/19/15 05/01/18 History HYDROmorphone HCL 4 mg PO QID PRN 05/27/16 05/01/18 History Diazepam 10 mg PO HS 10/04/16 05/01/18 History Aspirin 81 mg PO DAILY 01/21/17 05/01/18 History Carvedilol 25 mg PO BID 01/21/17 05/01/18 History Fluticasone Nasal [place] [Flonase 1 spray EA NOSTRIL BID 04/20/17 05/01/18 History Nasal [place]] Morphine Sulfate ER [Ms Contin] 30 mg PO TID 10/10/17 05/01/18 History Atorvastatin [Lipitor] 80 mg PO HS #30 tab 10/12/17 05/01/18 Rx Prasugrel [Effient] 10 mg PO DAILY #30 tab 10/12/17 05/01/18 Rx Lisinopril [Zestril] 5 mg PO HS #30 tab 10/13/17 05/01/18 Rx Pantoprazole Sodium [Protonix] 40 mg PO DAILY #60 tablet. 11/21/17 05/01/18 Rx tiZANidine [Zanaflex] 4 mg PO TID PRN 02/26/18 04/16/18 History Allergies Allergy/AdvReac Type Severity Reaction Status Date / Time ibuprofen [From Motrin] Allergy Rash/Hives Verified 05/01/18 16:59 ketorolac tromethamine Allergy Rash/Hives Verified 05/01/18 16:59 [From Toradol] Physical Exam Vitals: Vital Signs Temp Pulse Pulse Resp BP BP Pulse Ox 05/02/18 04:00 98.3 F 75 18 149/98 97 05/02/18 01:22 98.4 F 86 18 152/90 97 05/01/18 22:16 19 05/01/18 21:00 98.5 F 90 18 144/84 98 05/01/18 19:59 97.6 F 86 19 167/97 99 05/01/18 18:12 92 18 163/101 99 05/01/18 16:56 98.1 F 95 16 175/101 99 Intake and Output 05/01/18 05/02/18 05/02/18 22:59 06:59 14:59 Intake Total 148.575 Balance 148.575 Intake: Intake, IV Titration 148.575 Amount Heparin Sodium,Porcine/ 148.575 D5w Pmx 25,000 unit In Dextrose/Water 1 500ml. bag @ 12 UNITS/KG/HR 19. 81 mls/hr IV .Q24H [facility] Rx #:[id number] Other: Voiding Method Toilet Toilet # Voids 1 Weight 82.554 kg 82.554 kg Blood pressure 164/99 heart rate 54 afebrile maintaining oxygen saturation on room air GENERAL: This is a 62-year-old occasion male in no apparent distress at the time of my examination. HEENT: Head is atraumatic, normocephalic. Pupils are equal, round. Sclerae anicteric. Conjunctivae are clear. Mucous membranes of the mouth are moist. Neck is supple. There is no jugular venous distention. No carotid bruit is heard. LUNGS: Clear to auscultation no wheezes, rales or rhonchi. No chest wall tenderness is noted on palpation or with deep breathing. HEART: Regular rate and rhythm without murmurs, rubs or gallops. S1 and S2 heard. ABDOMEN: Soft, nontender. Bowel sounds are heard. No organomegaly noted. EXTREMITIES: No evidence of peripheral edema and no calf tenderness noted. VASCULAR: Radial and dorsalis pedis pulses palpated, no evidence of clubbing. NEUROLOGIC: Patient is awake, alert and oriented x3. Results 05/01/18 17:50 05/01/18 17:50 Cardiac Enzymes 05/01/18 05/01/18 05/02/18 Range/Units 17:50 17:50 01:00 AST 15 L (17-59) U/L CK-MB (CK-2) 0.7 0.8 (0.0-2.4) ng/mL Troponin I <0.012 <0.012 (0.000-0.034) ng/mL 05/02/18 Range/Units 05:25 AST (17-59) U/L CK-MB (CK-2) 0.8 (0.0-2.4) ng/mL Troponin I 0.023 (0.000-0.034) ng/mL Coagulation 05/01/18 05/02/18 Range/Units 17:50 01:00 PT 10.8 (9.0-12.0) sec APTT 24.2 34.5 H (22.0-30.0) sec Lipids 05/02/18 Range/Units 01:00 Triglycerides 75 (<150) mg/dL Cholesterol 169 (<200) mg/dL HDL Cholesterol 48 (40-60) mg/dL CBC 05/01/18 Range/Units 17:50 WBC 3.1 L (3.8-10.6) k/uL RBC 4.66 (4.30-5.90) m/uL Hgb 11.7 L (13.0-17.5) gm/dL Hct 37.1 L (39.0-53.0) % Plt Count 314 (150-450) k/uL Comprehensive Metabolic Panel 05/01/18 Range/Units 17:50 Sodium 146 H (137-145) mmol/L Potassium 3.9 (3.5-5.1) mmol/L Chloride 106 (98-107) mmol/L Carbon Dioxide 27 (22-30) mmol/L BUN 7 L (9-20) mg/dL Creatinine 0.60 L (0.66-1.25) mg/dL Glucose 113 H (74-99) mg/dL Calcium 9.8 (8.4-10.2) mg/dL AST 15 L (17-59) U/L ALT 22 (21-72) U/L Alkaline Phosphatase 89 (38-126) U/L Total Protein 7.1 (6.3-8.2) g/dL Albumin 4.3 (3.5-5.0) g/dL Current Medications Generic Name Dose Route Start Last Admin Trade Name Freq PRN Reason Stop Dose Admin Aspirin 325 mg 05/02/18 09:00 Aspirin PO DAILY [facility] Atorvastatin Calcium 80 mg 05/01/18 21:45 05/02/18 01:00 Lipitor PO 80 mg HS [facility] Administration Carisoprodol 350 mg 05/01/18 21:44 Soma PO BID PRN Muscle Spasm Carvedilol 25 mg 05/01/18 21:45 05/02/18 01:00 Coreg PO 25 mg BID-W/MEALS [facility] Administration Diazepam 10 mg 05/01/18 21:45 05/01/18 22:33 Valium PO 10 mg HS [facility] Administration Fluticasone Propionate 1 spray 05/01/18 21:45 05/02/18 00:57 Flonase Nasal [place] EA NOSTRIL 1 spray BID [facility] Administration Heparin Sodium/Dextrose 25,000 500 mls @ 19.81 mls/hr 05/01/18 19:45 03:31 unit/ IV Solution IV 14.71 units/kg/hr .Q24H [facility] 24.3 mls/hr Protocol Titration 12 UNITS/KG/HR Sodium Chloride 1,000 mls @ 100 mls/hr 05/01/18 19:45 05/01/18 20:04 Saline 0.9% IV 100 mls/hr .Q10H [facility] Administration Lisinopril 5 mg 05/01/18 21:45 05/02/18 01:00 Zestril PO 5 mg HS [facility] Administration Morphine Sulfate 2 mg 05/01/18 19:45 05/02/18 06:01 Morphine Sulfate (Inj) IVP 2 mg Q6H PRN Administration Pain/Discomfort Morphine Sulfate 30 mg 05/01/18 22:00 05/01/18 22:34 Ms Contin PO 30 mg TID [facility] Administration Nitroglycerin 0.4 mg 05/01/18 19:42 Nitrostat SUBLINGUAL Q5M PRN Chest Pain Ondansetron HCl 4 mg 05/02/18 03:05 05/02/18 03:28 Zofran IVP 4 mg Q6HR PRN Administration Nausea And Vomiting Intake and Output 05/01/18 05/02/18 05/02/18 22:59 06:59 14:59 Intake Total 148.575 Balance 148.575 Intake: Intake, IV Titration 148.575 Amount Heparin Sodium,Porcine/ 148.575 D5w Pmx 25,000 unit In Dextrose/Water 1 500ml. bag @ 12 UNITS/KG/HR 19. 81 mls/hr IV .Q24H [facility] Rx #:[id number] Other: Voiding Method Toilet Toilet # Voids 1 Weight 82.554 kg 82.554 kg 05/01/18 17:50 05/01/18 17:50 Assessment and Plan Assessment: ASSESSMENT 1. Precordial chest pain, atypical. An acute coronary event has been ruled out with no EKG evidence of acute ischemia and negative cardiac enzymes. 2. Known coronary artery disease with recent angioplasty in September 2017 3. Hypertension, uncontrolled 4. Dyslipidemia, not at target on atorvastatin 80 mg PLAN Obtain 2-D echocardiogram and Doppler study to assess cardiac structure and function Nothing by mouth after midnight tonight for dobutamine stress echocardiogram in the morning. Hold all beta blocking agents. Increase lisinopril to 10 mg twice a day. He kindly for this consultation further recommendations will be based upon clinical course. The above impression and plan of care have been discussed and directed by the signing physician. Chelsie Reyes, nurse practitioner, acting as scribe for signing physician.
[2018-05-02] MEDS: LISINOPRIL 10 MG TAB PO SCH (10:50)
[2018-05-02] MEDS: PRASUGREL 10 MG TAB PO SCH (13:29)
[2018-05-02] MEDS: CARISOPRODOL 350 MG TAB PO PRN ×2 (14:20→21:45)
[2018-05-02] MEDS: SODIUM CHLORIDE 0.9% 1,000 ML IV SCH ×2 (20:07→22:28)
[2018-05-02] MEDS: DIAZEPAM 5 MG TAB PO SCH (20:18)
--- NOTE | 2018-05-02 23:21 | P.HPIM ---
History of Present Illness H&P Date: 05/02/18 Chief Complaint: Chest pain and Right Upper extremity weakness Mr. Johnson is 62-year-old male with a past medical history of coronary artery disease, DVT, GERD, hyperlipidemia, hypertension, chronic pain syndrome, migraine headaches, peripheral vascular disease coming to the hospital with a chief complaint of chest pain. Patient states that his chest pain is intermittent , substernal radiating to his left, 5-6 out of 10 in intensity. Patient was in [place] emergency department yesterday and he was told that he needs cardiac catheterization but the patient signed out AMA as he was scared of the procedure. Patient has history of 3 stents and the last one was in [address] Go. Patient also complains of tingling in his right upper extremity mostly in the ring finger and little finger which has been going on for past 3 weeks. Patient also reports having a weak croze cutter helper of his right hand for 3 weeks. He denies having any slurring of speech or gait abnormalities. Patient denies having any history of stroke/TIA in the past. Patient denies having any headaches, blurring of vision but states that he has been having double vision for the past 3 weeks. Patient denies having any weakness in his lower extremities. Patient denies having any cough, difficulty in breathing or palpitations. He denies having any lower extremity swelling. No complaints of abdominal pain nausea vomiting or diarrhea. No dysuria or hematuria. Review of Systems REVIEW OF SYSTEMS: PSYCH: no anxiety or depression NEURO: No facial droop, No speech abnormalities. VASCULAR: no edema HEMATOLOGIC: No history of easy bleeding and bruising . No recent infections . RESPIRATORY: No cough, No SOB, No chest discomfort. IMMUNE: No infections INTEGUMENT: no rashes OPHTHALMOLOGIC: No blurry vision and no eye discharge : No dysuria or hematuria CARDIAC: as per HPI MUSCULOSKELETAL : No Aches or pains in the joints or muscles. GI: No abdominal pain, Nausea or vomiting. No constipation or diarrhea. Past Medical History Past Medical History: Coronary Artery Disease (CAD), Chest Pain / Angina, Deep Vein Thrombosis (DVT), GERD/Reflux, Hyperlipidemia, Hypertension Additional Past Medical History / Comment(s): 11/24/17 EGD/colonoscopy which pt states showed, gastritis, small hiatal hernia and diverticular dx, pt states years ago he had PUD, chronic low back pain, chronic pain syndrome, migraines, PVD, DVT L arm, numbness/tingling bilateral lower legs, bilateral past hand fractures History of Any Multi-Drug Resistant Organisms: None Reported Past Surgical History: Back Surgery, Heart Catheterization With Stent, Orthopedic Surgery Additional Past Surgical History / Comment(s): EGDs/colonoscopies with last time being 11/24/17, multiple low back surgeries, bilateral arm and bilateral thigh surgeries for brown recluse spider bites with infection, morphine pain pump insertion and removal due to infection, PCI with stents, L rotator cuff repair, L knee arthroscopy, R cataract removal. Past Anesthesia/Blood Transfusion Reactions: No Reported Reaction Additional Past Anesthesia/Blood Transfusion Reaction / Comment(s): Pt recieved blood after back surgery and tolerated it well. Date of Last Stent Placement:: 10/11/17 Past Psychological History: No Psychological Hx Reported Additional Psychological History / Comment(s): He is fairly independent. He uses a walker to ambulate. Pt drives. He currently has [facility] nurse that sees him once a week. Smoking Status: Former smoker Past Alcohol Use History: None Reported Additional Past Alcohol Use History / Comment(s): Pt started smoking in 1973 and quit in 1984 Past Drug Use History: None Reported - Past Family History Father Additional Family Medical History / Comment(s): Father had back problems. He lived to be 82 yrs old. Mother Family Medical History: Hypertension, Myocardial Infarction (GA) Additional Family Medical History / Comment(s): Mother of a GA at the age of 55yrs. Brother(s) Family Medical History: Cancer Additional Family Medical History / Comment(s): Leukemia Medications and Allergies Home Medications Medication Instructions Recorded Confirmed Type Carisoprodol [Soma] 350 mg PO TID 12/19/15 05/02/18 History HYDROmorphone HCL 4 mg PO QID PRN 05/27/16 05/02/18 History Diazepam 10 mg PO HS 10/04/16 05/02/18 History Aspirin 81 mg PO DAILY 01/21/17 05/02/18 History Carvedilol 25 mg PO BID 01/21/17 05/02/18 History Fluticasone Nasal Lawn [Flonase 1 spray EA NOSTRIL BID 04/20/17 05/02/18 History Nasal Lawn] Morphine Sulfate ER [Ms Contin] 30 mg PO TID 10/10/17 05/02/18 History Atorvastatin [Lipitor] 80 mg PO HS #30 tab 10/12/17 05/02/18 Rx Prasugrel [Effient] 10 mg PO DAILY #30 tab 10/12/17 05/02/18 Rx Lisinopril [Zestril] 5 mg PO HS #30 tab 10/13/17 05/02/18 Rx Pantoprazole Sodium [Protonix] 40 mg PO DAILY #60 tablet. 11/21/17 05/02/18 Rx tiZANidine [Zanaflex] 4 mg PO TID PRN 02/26/18 05/02/18 History Allergies Allergy/AdvReac Type Severity Reaction Status Date / Time ibuprofen [From Motrin] Allergy Rash/Hives Verified 05/02/18 11:46 ketorolac tromethamine Allergy Rash/Hives Verified 05/02/18 11:46 [From Toradol] Physical Exam Vitals: Vital Signs Temp Pulse Pulse Resp BP BP Pulse Ox 05/02/18 08:00 98.7 F 54 L 18 164/99 99 05/02/18 04:00 98.3 F 75 18 149/98 97 05/02/18 01:22 98.4 F 86 18 152/90 97 05/01/18 22:16 19 05/01/18 21:00 98.5 F 90 18 144/84 98 05/01/18 19:59 97.6 F 86 19 167/97 99 05/01/18 18:12 92 18 163/101 99 05/01/18 16:56 98.1 F 95 16 175/101 99 Intake and Output 05/01/18 05/02/18 05/02/18 22:59 06:59 14:59 Intake Total 148.575 Balance 148.575 Intake: Intake, IV Titration 148.575 Amount Heparin Sodium,Porcine/ 148.575 D5w Pmx 25,000 unit In Dextrose/Water 1 500ml. bag @ 12 UNITS/KG/HR 19. 81 mls/hr IV .Q24H [facility] Rx #:[id number] Other: Voiding Method Toilet Toilet Urinal # Voids 1 Weight 82.554 kg 82.554 kg GENERAL EXAM GEN. APPEARANCE: alert, in no apparent distress HEAD EXAM: atraumatic, normocephalic, normal inspection, no facial droop EYE EXAM: normal appearance, PERRL, EOMI. Absent: scleral icterus, conjunctival injection, periorbital swelling ENT EXAM: normal exam, mucous membranes moist NECK EXAM: normal inspection. Absent: tenderness, meningismus, full ROM, lymphadenopathy RESPIRATORY EXAM: normal lung sounds bilaterally. Absent: respiratory distress , wheezes, rales, rhonchi, stridor CARDIOVASCULAR EXAM: regular rate, normal rhythm, normal heart sounds. Absent : systolic murmur, diastolic murmur, rubs, gallop, clicks GI/ABDOMINAL EXAM: soft, normal bowel sounds. Absent: distended, tenderness, guarding, rebound, rigid EXTREMITIES EXAM: normal inspection, full ROM, normal capillary refill. Absent : tenderness, pedal edema, joint swelling, calf tenderness NEUROLOGICAL EXAM: alert, oriented X3, strength in the right upper extremity - 3/5 and left 5/5. Lower extremity - 5/5 on both sides. Normal finger-nose test. PSYCHIATRIC EXAM: normal affect, normal mood SKIN EXAM: warm, dry, intact, normal color. Absent: rash Results CBC & Chem 7: 05/01/18 17:50 05/01/18 17:50 Labs: Abnormal Lab Results - Last 24 Hours (Table) 05/01/18 05/01/18 05/02/18 Range/Units 17:50 17:50 01:00 WBC 3.1 L (3.8-10.6) k/uL Hgb 11.7 L (13.0-17.5) gm/dL Hct 37.1 L (39.0-53.0) % MCV 79.8 L (80.0-100.0) fL RDW 19.0 H (11.5-15.5) % Lymphocytes # 0.9 L (1.0-4.8) k/uL APTT (22.0-30.0) sec Sodium 146 H (137-145) mmol/L BUN 7 L (9-20) mg/dL Creatinine 0.60 L (0.66-1.25) mg/dL Glucose 113 H (74-99) mg/dL AST 15 L (17-59) U/L LDL Cholesterol, Calc 106 H (0-99) mg/dL 05/02/18 Range/Units 01:00 WBC (3.8-10.6) k/uL Hgb (13.0-17.5) gm/dL Hct (39.0-53.0) % MCV (80.0-100.0) fL RDW (11.5-15.5) % Lymphocytes # (1.0-4.8) k/uL APTT 34.5 H (22.0-30.0) sec Sodium (137-145) mmol/L BUN (9-20) mg/dL Creatinine (0.66-1.25) mg/dL Glucose (74-99) mg/dL AST (17-59) U/L LDL Cholesterol, Calc (0-99) mg/dL Thrombosis Risk Factor Assmnt - Choose All That Apply Each Risk Factor Represents 2 Points: Age 61-74 years Thrombosis Risk Factor Assessment Total Risk Factor Score: 2 Thrombosis Risk Factor Assessment Level: Low Risk Assessment and Plan Assessment: ASSESSMENT Atypical chest pain Right upper extremity weakness Coronary artery disease status post stenting in the past Hypertension Hyperlipidemia GERD Chronic pain syndrome Chronic low back pain Migraine headaches Peripheral vascular disease DVT of the left arm in the past Plan: Patient is is admitted for acute coronary syndrome rule out. Patient had serial troponins and EKGs within normal limits. He is scheduled for a dobutamine stress echo for tomorrow morning. Patient to be kept nothing by mouth tonight. In view of his weakness which has been going on for 3 weeks patient had a CAT scan of the head done in the ED showing no acute hematologic or mass-effect. But there is nonspecific low attenuation within the white matter and also mild prominence at the tip of the basilar artery. So neurology has been consulted. Resume his home medications. Further recommendations to follow depending on the progress of the patient.
[2018-05-03] MEDS: MORPHINE SULFATE 2 MG/ML SYRINGE IVP PRN ×3 (04:32→17:43)
[2018-05-03] MEDS ORDERED: PANTOPRAZOLE 40 MG TABLET PO SCH (07:30)
[2018-05-03] MEDS ORDERED: DOBUTamine DRIP for NUC MED 500 MG/250 ML BAG IV ONE (08:00)
--- NOTE | 2018-05-03 08:25 | P.PN ---
Subjective Progress Note Date: 05/03/18 Principal diagnosis: Chest pressure. [id number] black male with known history of CAD who has recurrent chest pressure. Unfortunately, he was tried Howie and signed out AMA after his chest pain resolved. The patient states the pain did recur once he returned. He said similar symptomatology over the last year. Multiple consultations for similar presentations are noted. The patient is nonsmoker. Objective - Vital Signs Vital signs: Vital Signs Temp 98.0 F 05/03/18 07:10 Pulse 75 05/03/18 07:10 Resp 18 05/03/18 07:10 BP 160/107 05/03/18 07:10 Pulse Ox 98 05/03/18 07:10 Intake & Output 05/02/18 05/03/18 05/03/18 18:59 06:59 18:59 Other: Voiding Method Urinal Urinal # Voids 3 2 - Constitutional General appearance: Present: average body habitus - EENT Eyes: Absent: abnormal pupil - Respiratory Respiratory: bilateral: CTA - Cardiovascular Rhythm: regular Heart sounds: normal: S1, S2 Abnormal Heart Sounds: Absent: S3 Gallop - Gastrointestinal General gastrointestinal: Present: soft. Absent: tenderness - Psychiatric Psychiatric: Present: A&O x's 3, appropriate affect - Labs CBC & Chem 7: 05/01/18 17:50 05/01/18 17:50 Assessment and Plan (1) Chest pain Current Visit: Yes Status: Acute Code(s): R07.9 - CHEST PAIN, UNSPECIFIED SNOMED Code(s): 47180004 (2) Accelerated hypertension Current Visit: No Status: Acute Code(s): I10 - ESSENTIAL (PRIMARY) HYPERTENSION SNOMED Code(s): 94567552 (3) HTN (hypertension) Current Visit: No Status: Acute Code(s): I10 - ESSENTIAL (PRIMARY) HYPERTENSION SNOMED Code(s): 79617637 (4) CAD (coronary artery disease) Current Visit: No Status: Chronic Code(s): I25.10 - ATHSCL HEART DISEASE OF [place] CORONARY ARTERY W/O ANG PCTRS SNOMED Code(s): 12165302 Plan: Rule out myocardial infarction. We'll continue follow with cardiology. Reconcile medications. Despite discharge once cleared by cardiology. See orders otherwise.
[2018-05-03 08:35] LABS: Anisocytosis Slight; Basophils % (A) 1 %; Eosinophils # (A) 0.2 k/uL (0-0.7); Eosinophils % (A) 6 %; HCT 38.6 % (39.0-53.0); Lymphocytes # (A) 1.1 k/uL (1.0-4.8); Lymphocytes % (A) 36 %; MCH 25.2 pg (25.0-35.0); MCV 81.2 fL (80.0-100.0); Mean Platelet Volume 6.1; Microcytosis Slight; Monocytes # (A) 0.3 k/uL (0-1.0); Monocytes % (A) 8 %; Neutrophils # (A) 1.5 k/uL (1.3-7.7); Neutrophils % (A) 47 %; Platelet Count 275 k/uL (150-450); RBC 4.75 m/uL (4.30-5.90); WBC 3.1 k/uL (3.8-10.6)
[2018-05-03 08:46] LABS: Anion Gap 11 mmol/L; Blood Urea Nitrogen 6 mg/dL (9-20); Calcium 9.1 mg/dL (8.4-10.2); Carbon Dioxide 24 mmol/L (22-30); Chloride 106 mmol/L (98-107); Glucose 97 mg/dL (74-99); Potassium 3.7 mmol/L (3.5-5.1); Sodium 141 mmol/L (137-145)
[2018-05-03] MEDS: MORPHINE SULFATE ER 30 MG TABLET PO SCH ×2 (09:02→15:56)
--- NOTE | 2018-05-03 09:53 | ECHOF ---
Referral Reason: MEASUREMENTS -------- HEIGHT: 180.3 cm WEIGHT: 82.6 kg BP: 149/93 IVSd: 1.5 cm (0.6 - 1.1) LVIDd: 4.5 cm (3.9 - 5.3) LVPWd: 1.4 cm (0.6 - 1.1) IVSs: 2.2 cm LVIDs: 2.2 cm LVPWs: 2.1 cm LAESV Index (A-L): 23.78 ml/m Ao Diam: 3.3 cm (2.0 - 3.7) AV Cusp: 2.3 cm (1.5 - 2.6) LA Diam: 3.0 cm (2.7 - 3.8) MV EXCURSION: 18.395 mm (> 18.000) MV EF SLOPE: 104 mm/s (70 - 150) EPSS: 0.3 cm MV E Héctor: 0.65 m/s MV DecT: 181 ms MV A Héctor: 0.65 m/s MV E/A Ratio: 0.99 RAP: 5.00 mmHg RVSP: 14.73 mmHg FINDINGS -------- Sinus rhythm. This was a technically good study. The left ventricular size is normal. There is moderate concentric left ventricular hypertrophy. O verall left ventricular systolic function is low-normal with, an EF between 50 - 55 %. The right ventricle is normal in size and function. The left atrium is normal in size. The right atrium is normal in size. Aortic valve is trileaflet and is mildly thickened. The mitral valve leaflets are mildly thickened. Mild mitral regurgitation is present. Mild tricuspid regurgitation present. The right ventricular systolic pressure, as measured by Doppl er, is 14.73mmHg. Pulmonic valve appears structurally normal. The aortic root size is normal. Normal inferior vena cava with normal inspiratory collapse consistent with estimated right atrial pre ssure of 5 mmHg. The pericardium is normal. CONCLUSIONS -------- 1. Sinus rhythm. 2. This was a technically good study. 3. The left ventricular size is normal. 4. There is moderate concentric left ventricular hypertrophy. 5. Overall left ventricular systolic function is low-normal with, an EF between 50 - 55 %. 6. The right ventricle is normal in size and function. 7. The left atrium is normal in size. 8. The right atrium is normal in size. 9. Aortic valve is trileaflet and is mildly thickened. 10. The mitral valve leaflets are mildly thickened. 11. Mild mitral regurgitation is present. 12. Mild tricuspid regurgitation present. 13. The right ventricular systolic pressure, as measured by Doppler, is 14.73mmHg. 14. Pulmonic valve appears structurally normal. 15. The aortic root size is normal. 16. Normal inferior vena cava with normal inspiratory collapse consistent with estimated right atrial pressure of 5 mmHg. 17. The pericardium is normal. GLYCERIN OPERATOR: Mitzy Alcantar RDCS
[2018-05-03] MEDS: ASPIRIN 81 MG PO SCH (10:35)
[2018-05-03] MEDS: PRASUGREL 10 MG TAB PO SCH (10:35)
[2018-05-03] MEDS: LISINOPRIL 10 MG TAB PO SCH (10:35)
--- NOTE | 2018-05-03 10:37 | P.STRESS ---
- Stress Test Note Stress Test Results/Findings: Exam Performed: dobutamine stress echo Exam Date: 05/03/18 Reason for Exam: cp Height: 5 ft 11 in Weight: 82.554 kg Protocol: dobutamine stress echo Stage: 4 Duration of Exercise: 12 min Resting Heart Rate: 75 Resting Blood Pressure: 149/65 Maximum Achieved Heart Rate: 143 Maximum Achieved Blood Pressure: 203/75 85% PMHR: 89 100% PMHR: 159 METS: na Technologist Comment: Stress Test Results/Findings: This is a 62-year-old gentleman with history of ischemic heart disease and previous stent placement and also hypertension being evaluated for symptoms of chest pain and shortness of breath. Stress data: Baseline EKG showed a sinus rhythm with normal TN interval and QRS duration. Blood pressure at rest is 149/65 with pulse rate of 75. A standard dose of dobutamine was initiated and was titrated to 40 mics, achieving a maximal heart rate of 143 with a blood pressure of 203/75. Baseline EKG showed sinus rhythm with normal TN interval and QRS duration. EKGs taken during and after the dobutamine infusion did not reveal any significant changes suggestive of ischemia. Patient complained of some left arm pain. Echo data: Baseline echo images showed normal wall motion and thickening. Exercise echo images add low-dose and the high-dose dobutamine showed progressive augmentation of the wall motion and thickening in all the segments. Final impression: #1. Negative dobutamine stress test #2. Negative dobutamine stress echo.
[2018-05-03] MEDS: FLUTICASONE 50MCG/SPRAY NASAL 16GM EA NOSTRIL SCH (10:42)
--- NOTE | 2018-05-03 11:24 | P.PN ---
Subjective Mr. Johnson is a pleasant 62-year-old -[place] male past medical history significant for coronary artery disease status post angioplasty, dyslipidemia and hypertension. We have been asked to see him in consultation secondary to symptoms of chest discomfort. He recently underwent cardiac catheterization in October 2017 which revealed patent stent of the LAD as well as patent stenting of the diagonal branch at the bifurcation. His most recent angioplasty and September 2017 is when he underwent his stenting of the diagonal branch. At that time medical therapy was recommended. He states on Thursday he started with some chest discomfort and he went to [facility] for evaluation. He recommended he have a cardiac catheterization for assessment of his coronary artery disease. He left AGAINST MEDICAL ADVICE. The symptoms he describes are stabbing pain mid-sternal with sob, nausea, vomiting, diaphoresis, dizziness. This started Thursday at rest. The pain has been intermittent in nature since with no specific aggravating or alleviating factors. He complains of associated shortness of breath, dizziness, nausea, vomiting, diaphoresis and diarrhea. EKG on arrival reveals sinus mechanism with no acute ST or T-wave abnormalities. Chest x-ray is negative for an acute cardiopulmonary process. Laboratory data reviewed, WBC 3.1, hemoglobin 11.7, platelets 314, sodium 146, potassium 3.9, magnesium 1.9, creatinine 0.6, cardiac enzymes negative 3, LDL 106, HDL 48. Current cardiac medications include aspirin 81 mg daily, atorvastatin 80 mg daily, carvedilol 25 mg twice a day, lisinopril 5 mg daily and Effient 10 mg daily. He states he is compliant with his medications. Most recent echocardiogram revealed ejection fraction 6065%, moderate concentric left ventricular hypertrophy and mildly thickened aortic valve with no significant stenosis noted. 05/03/2018 Mr. Johnson is seen and examined today in follow-up. Echocardiogram performed reveals preserved left ventricular systolic function with ejection fraction 50- 55%, mild TR and mild MR. He has continued to have non-specific symptoms of left arm pain. Blood pressure 160/107 heart rate 75 afebrile and maintaining oxygen saturation on room air. Laboratory data reviewed, WBC 3.1, hgb 12.0, plt 275, sodium 141, potassium 3.7, creatinine 0.54, cardiac enzymes negative x3. Dobutamine stress echocardiogram was done and is normal with no evidence of stress induced ischemia. Objective - Vital Signs Vital signs: Vital Signs Temp 98.0 F 05/03/18 07:10 Pulse 75 05/03/18 08:00 Resp 18 05/03/18 08:00 BP 160/107 05/03/18 07:10 Pulse Ox 98 05/03/18 07:10 Intake & Output 05/02/18 05/03/18 05/03/18 18:59 06:59 18:59 Other: Voiding Method Urinal Urinal Urinal # Voids 3 2 - Exam GENERAL: Well-appearing, well-nourished and in no acute distress. NECK: Supple without JVD or thyromegaly. LUNGS: Breath sounds clear to auscultation bilaterally. Respiration equal and unlabored. No wheezes, rales or rhonchi. HEART: Regular rate and rhythm without murmurs, rubs or gallops. S1 and S2 heard. EXTREMITIES: Normal range of motion, no edema. No clubbing or cyanosis. Peripheral pulses intact and strong. - Labs CBC & Chem 7: 05/03/18 08:20 05/03/18 08:20 Labs: Abnormal Lab Results - Last 24 Hours (Table) 05/03/18 05/03/18 Range/Units 08:20 08:20 WBC 3.1 L (3.8-10.6) k/uL Hgb 12.0 L (13.0-17.5) gm/dL Hct 38.6 L (39.0-53.0) % RDW 19.0 H (11.5-15.5) % BUN 6 L (9-20) mg/dL Creatinine 0.54 L (0.66-1.25) mg/dL Assessment and Plan Assessment: ASSESSMENT 1. Precordial chest pain, atypical. An acute coronary event has been ruled out with no EKG evidence of acute ischemia and negative cardiac enzymes. 2. Known coronary artery disease with recent angioplasty in September 2017 3. Hypertension, uncontrolled 4. Dyslipidemia, not at target on atorvastatin 80 mg PLAN Stable from a cardiac perspective. Continue increased dose of lisinopril for better blood pressure control. Follow-up with Dr. BASILIA Go in 2-3 weeks. Nurse Practitioner note has been reviewed, I agree with a documented findings and plan of care. Patient was seen and examined.
[2018-05-03] MEDS: CARVEDILOL 12.5 MG TAB PO SCH ×2 (11:48→17:42)
[2018-05-03] MEDS: CARISOPRODOL 350 MG TAB PO PRN (13:11)
[2018-05-03] MEDS: SODIUM CHLORIDE 0.9% 1,000 ML IV SCH (18:51)
[2018-05-03 19:46] VITALS: BP 144/94; PULSE 88; RESP 16; TEMP 97.6
--- NOTE | 2018-05-03 19:59 | MR ---
EXAMINATION TYPE: MR angio head wo con DATE OF EXAM: 05/03/2018 COMPARISON: NONE HISTORY: Headaches, weakness, abn CT on pacs TECHNIQUE: Time of flight images focusing on the [place] of [place] were performed without contrast. FINDINGS: There is arterial flow in the anterior middle and posterior cerebral arteries. There is art erial flow in the vertebrobasilar artery system. There is no evidence of aneurysm or neovascularity. There is no mass effect. There is no evidence of stenosis. IMPRESSION: Negative MR angioma the brain. Basilar artery appears normal. No evidence of aneurysm.
--- NOTE | 2018-05-04 10:43 | CONS ---
CONSULTATION DATE OF CONSULTATION: 05/03/2018. CHIEF COMPLAINT: Double vision and abnormal CT of the brain. HISTORY OF PRESENT ILLNESS: Mr. Johnson is a 62-year-old male, who is being evaluated today on 05/03/2018 by the neurology service per the request of Dr. Mares for the above-mentioned complaints. The patient initially came into [facility] Emergency Room with the complaints of chest pain and right upper extremity pain. He was being worked up for cardiac disease and Cardiology has been consulted. In the history, he was found to be complaining of double vision that occurs when he has headaches. The patient does have history of migraine headaches and usually averages one migraine per week. He denies having any double vision when headaches are not present. A CT scan of the brain was done, which showed no acute findings but there was evidence of prominence at the tip of the basilar artery. His CBC showed mild leukopenia at 3.1, and mild anemia with a hemoglobin of 12.0 and hematocrit 38%. His comprehensive metabolic profile, cardiac enzymes and urinalysis were normal. At the time of my evaluation, the patient is resting in his bed and appears to be in no acute distress. He denies any neurological symptoms at this time. He does inform me that he was having numbness and tingling in the right upper extremity prior to admission but those symptoms have resolved at this time. PAST MEDICAL HISTORY: Coronary artery disease, angina, history of deep venous thrombosis, gastroesophageal reflux disease, hypertension, dyslipidemia, chronic pain syndrome, hiatal hernia, migraine headaches, peripheral vascular disease, history of spine surgery, coronary artery stent placements, multiple orthopedic surgeries, history of intrathecal pump implant which was later explanted due to infection, cataract surgeries. SOCIAL HISTORY: The patient is a former smoker. He denies any alcohol or drug use. FAMILY HISTORY: Positive for hypertension and heart disease and cancer. HOME MEDICATIONS: Reviewed in the chart. ALLERGIES: MOTRIN and TORADOL. REVIEW OF SYSTEMS: CONSTITUTIONAL: Negative. EYES: As mentioned above. ENT: Negative. CARDIOVASCULAR: As mentioned above. RESPIRATORY: Negative. NEUROLOGICAL: As mentioned above. GASTROINTESTINAL: Positive for occasional heartburn. GENITOURINARY: Negative. MUSCULOSKELETAL: As mentioned above. PSYCHIATRIC: Negative. ENDOCRINE: Negative. DERMATOLOGICAL: Negative. PHYSICAL EXAM: Vital signs show a temperature of 98.1, pulse 95, respiration 18, blood pressure 129/103. GENERAL APPEARANCE: The patient is a well-developed male who appears to be in no acute distress. HEENT: Normocephalic, atraumatic, no facial asymmetry is seen. NECK: Supple with no masses felt. CARDIOVASCULAR: Regular rate and rhythm. ABDOMEN: Nontender, nondistended. Extremities showed no edema or clubbing. NEUROLOGICAL EXAM: The patient is awake and oriented x3. Speech and language are normal. Strength is full in all 4 extremities. Sensory exam was normal to light touch in all 4 extremities. No pronator drift is seen. No facial asymmetry is seen on cranial nerve testing. No tremors or seizure-like activity is noticed. IMPRESSION: 1. Recurrent diplopia. 2. Migraine headaches. 3. Abnormal CT scan of the brain. 4. Chronic pain syndrome. RECOMMENDATION: The patient had been having recurrent diplopia but these are only associated with his migraine headaches. These are likely auras. His neurological examination is normal. The prominence seen on the basilar tip of the CT scan of the brain is most likely an artifact, but I will order an MRA of the brain. If the MRA is normal, the patient will be cleared for discharge from a neurology standpoint. I do recommend trying Imitrex for his recurrent migraines, but this would have to be cleared by Cardiology first given his history of stent placements. Continue the rest of your current workup and management. I will continue to follow with you. Further recommendations to follow. Thank you, Dr. Mares for allowing me to participate in the care of your patient. If you have any questions, please feel free to contact me. MMODL / IJN: [id number] /
--- NOTE | 2018-05-04 16:16 | ECHOS ---
Stress Test Results/Findings: Exam Performed: dobutamine stress echo Exam Date: 05/03/18 Reason for Exam: cp Height: 5 ft 11 in Weight: 82.554 kg Protocol: dobutamine stress echo Stage: 4 Duration of Exercise: 12 min Resting Heart Rate: 75 Resting Blood Pressure: 149/65 Maximum Achieved Heart Rate: 143 Maximum Achieved Blood Pressure: 203/75 85% PMHR: 89 100% PMHR: 159 METS: na Technologist Comment: Stress Test Results/Findings: This is a 62-year-old gentleman with history of ischemic heart disease and previous stent placement and also hypertension being evaluated for symptoms of chest pain and shortness of breath. Stress data: Baseline EKG showed a sinus rhythm with normal IN interval and QRS duration. Blood pressure at rest is 149/65 with pulse rate of 75. A standard dose of dobutamine was initiated and was titrated to 40 mics, achieving a maximal heart rate of 143 with a blood pressure of 203/75. Baseline EKG showed sinus rhythm with normal IN interval and QRS duration. EKGs taken during and after the dobutamine infusion did not reveal any significant changes suggestive of ischemia. Patient complained of some left arm pain. Echo data: Baseline echo images showed normal wall motion and thickening. Exercise echo images add low-dose and the high-dose dobutamine showed progressive augmentation of the wall motion and thickening in all the segments. Final impression: #1. Negative dobutamine stress test #2. Negative dobutamine stress echo. [facility]
== END 2018-05-03 20:30 | disposition home or self-care (01) ==
LOC: EC 16:49 → 3OBS 19:42
PROVIDERS: ADMIT Family Medicine; ATTEND Family Medicine
DX: R07.89 Other chest pain (principal); R53.1 Weakness; R61 Generalized hyperhidrosis; R42 Dizziness and giddiness; R11.2 Nausea with vomiting, unspecified; R20.2 Paresthesia of skin; H53.2 Diplopia; R19.7 Diarrhea, unspecified; R94.02 Abnormal brain scan; G43.909 Migraine, unspecified, not intractable, without status migrainosus; I25.110 Atherosclerotic heart disease of native coronary artery with unstable angina pectoris; I11.9 Hypertensive heart disease without heart failure; K21.9 Gastro-esophageal reflux disease without esophagitis; I73.9 Peripheral vascular disease, unspecified; E78.5 Hyperlipidemia, unspecified; G89.4 Chronic pain syndrome; M54.5 Low back pain; K44.9 Diaphragmatic hernia without obstruction or gangrene; Z95.5 Presence of coronary angioplasty implant and graft; Z79.82 Long term (current) use of aspirin; Z79.2 Long term (current) use of antibiotics; Z79.891 Long term (current) use of opiate analgesic; Z79.51 Long term (current) use of inhaled steroids; Z79.899 Other long term (current) drug therapy; Z88.5 Allergy status to narcotic agent; Z88.6 Allergy status to analgesic agent; Z87.891 Personal history of nicotine dependence; Z86.718 Personal history of other venous thrombosis and embolism; Z87.11 Personal history of peptic ulcer disease; Z82.49 Family history of ischemic heart disease and other diseases of the circulatory system; Z80.6 Family history of leukemia
CPT/HCPCS: 99285 ×2; 96365 ×2; 96375 ×3; 96376 ×4; 96361 ×3; 96366 ×2; 36415; 93005; 93306; 93351; 80061; 80053; 80048; 82150; 82550 ×2; 82553 ×2; 83690; 83735; 84484 ×2; 85025 ×2; 85610; 85730 ×2; 81003; 71046; 70450; 70544; G0378 ×3; J1250; J1644 ×2; J2405 ×2; J2270 ×3

== ENCOUNTER 2018-07-02 16:43 | Emergency (ER) | payer MEDICARE ==
[2018-07-02] MEDS ORDERED: ONDANSETRON 4 MG/2 ML VIAL IVP STA ×2 (18:16→22:58)
[2018-07-02] MEDS ORDERED: SODIUM CHLORIDE 0.9% 1,000 ML IV STA (18:16)
[2018-07-02] MEDS ORDERED: MORPHINE SULFATE 4 MG/ML SYRINGE IV STA (18:16)
[2018-07-02 19:02] VITALS: TEMP 98.2
[2018-07-02 19:27] LABS: Anisocytosis Slight; Basophils % (A) 0 %; Eosinophils % (A) 0 %; HCT 42.9 % (39.0-53.0); HGB 13.4 gm/dL (13.0-17.5); Hypochromasia Slight; Lymphocytes # (A) 1.1 k/uL (1.0-4.8); Lymphocytes % (A) 20 %; MCH 26.5 pg (25.0-35.0); MCHC 31.1 g/dL (31.0-37.0); MCV 85.1 fL (80.0-100.0); Monocytes # (A) 0.3 k/uL (0-1.0); Monocytes % (A) 5 %; Neutrophils # (A) 4.3 k/uL (1.3-7.7); Neutrophils % (A) 74 %; RBC 5.04 m/uL (4.30-5.90); RDW 18.1 % (11.5-15.5); WBC 5.8 k/uL (3.8-10.6)
[2018-07-02 19:28] LABS: Platelet Count 609 k/uL (150-450)
[2018-07-02 19:29] LABS: ALT 17 U/L (21-72); AST 14 U/L (17-59); Albumin 4.9 g/dL (3.5-5.0); Alkaline Phosphatase 100 U/L (38-126); Amylase 84 U/L (30-110); Anion Gap 11 mmol/L; Blood Urea Nitrogen 8 mg/dL (9-20); Calcium 10.7 mg/dL (8.4-10.2); Carbon Dioxide 25 mmol/L (22-30); Chloride 105 mmol/L (98-107); Glucose 118 mg/dL (74-99); Lipase 29 U/L (23-300); Potassium 4.7 mmol/L (3.5-5.1); Sodium 141 mmol/L (137-145); Total Bilirubin 0.7 mg/dL (0.2-1.3); Total Protein 8.3 g/dL (6.3-8.2)
--- NOTE | 2018-07-02 19:41 | ED ---
Abdominal Pain HPI - General Chief Complaint: Abdominal Pain Stated Complaint: abd pain, vomiting Time Seen by Provider: 07/02/18 17:55 Source: patient Mode of arrival: ambulatory Limitations: no limitations - History of Present Illness Initial Comments: 62-year-old male patient presents the emergency department today for complaints of abdominal pain and vomiting. Patient states he has been having pain for the last couple of days. States he does have a history of diverticulitis and was discharged to the hospital 2 weeks ago after being admitted for 14 days with an episode. Patient states that he did take his home pain medication but it is not helping him. Patient states the pain is in his entire abdomen does radiate into his back. Patient states he has vomited several times and is unable to keep down any food or fluids. Denies any chest pain or shortness of breath. Denies any fevers or chills. Denies any difficulty with urination. States he has been having diarrhea. He reports dark red bloody stool. Patient denies any recent rash, numbness, tingling, dizziness, weakness, hematuria, dysuria, urinary urgency, urinary frequency, headache, visual changes, or any other complaints. - Related Data Home Medications Medication Instructions Recorded Confirmed Carisoprodol [Soma] 350 mg PO TID 12/19/15 05/02/18 HYDROmorphone HCL 4 mg PO QID PRN 05/27/16 05/02/18 Diazepam 10 mg PO HS 10/04/16 05/02/18 Aspirin 81 mg PO DAILY 01/21/17 05/02/18 Carvedilol 25 mg PO BID 01/21/17 05/02/18 Fluticasone Nasal [place] [Flonase 1 spray EA NOSTRIL BID 04/20/17 05/02/18 Nasal [place]] Morphine Sulfate ER [Ms Contin] 30 mg PO TID 10/10/17 05/02/18 tiZANidine [Zanaflex] 4 mg PO TID PRN 02/26/18 05/02/18 Previous Rx's Medication Instructions Recorded Atorvastatin [Lipitor] 80 mg PO HS #30 tab 10/12/17 Prasugrel [Effient] 10 mg PO DAILY #30 tab 10/12/17 Lisinopril [Zestril] 5 mg PO HS #30 tab 10/13/17 Pantoprazole Sodium [Protonix] 40 mg PO DAILY #60 tablet. 11/21/17 Ondansetron [Zofran ODT] 4 mg PO Q8HR PRN #10 tab 07/02/18 Allergies Allergy/AdvReac Type Severity Reaction Status Date / Time ibuprofen [From Motrin] Allergy Rash/Hives Verified 07/02/18 16:55 ketorolac tromethamine Allergy Rash/Hives Verified 07/02/18 16:55 [From Toradol] Review of Systems ROS Statement: Those systems with pertinent positive or pertinent negative responses have been documented in the HPI. ROS Other: All systems not noted in ROS Statement are negative. Past Medical History Past Medical History: Coronary Artery Disease (CAD), Chest Pain / Angina, Deep Vein Thrombosis (DVT), GERD/Reflux, Hyperlipidemia, Hypertension Additional Past Medical History / Comment(s): 11/24/17 EGD/colonoscopy which pt states showed, gastritis, small hiatal hernia and diverticular dx, pt states years ago he had PUD, chronic low back pain, chronic pain syndrome, migraines, PVD, DVT L arm, numbness/tingling bilateral lower legs, bilateral past hand fractures History of Any Multi-Drug Resistant Organisms: None Reported Past Surgical History: Back Surgery, Heart Catheterization With Stent, Orthopedic Surgery Additional Past Surgical History / Comment(s): EGDs/colonoscopies with last time being 11/24/17, multiple low back surgeries, bilateral arm and bilateral thigh surgeries for brown recluse spider bites with infection, morphine pain pump insertion and removal due to infection, PCI with stents, L rotator cuff repair, L knee arthroscopy, R cataract removal. Past Anesthesia/Blood Transfusion Reactions: No Reported Reaction Additional Past Anesthesia/Blood Transfusion Reaction / Comment(s): Pt recieved blood after back surgery and tolerated it well. Date of Last Stent Placement:: 10/11/17 Past Psychological History: No Psychological Hx Reported Smoking Status: Former smoker Past Alcohol Use History: None Reported Past Drug Use History: None Reported - Past Family History Father Additional Family Medical History / Comment(s): Father had back problems. He lived to be 82 yrs old. Mother Family Medical History: Hypertension, Myocardial Infarction ([place]) Additional Family Medical History / Comment(s): Mother of a [place] at the age of 55yrs. Brother(s) Family Medical History: Cancer Additional Family Medical History / Comment(s): Leukemia General Exam Limitations: no limitations General appearance: alert, in no apparent distress, other (This is a well- developed, well-nourished adult male patient in no acute distress. Vital signs upon presentation are temperature 98.0F, pulse 75, respirations 18, blood pressure 122/93, pulse ox 100% on room air.) Eye exam: Present: normal appearance, PERRL, EOMI. Absent: scleral icterus, conjunctival injection, periorbital swelling ENT exam: Present: normal exam, normal oropharynx, mucous membranes moist Respiratory exam: Present: normal lung sounds bilaterally. Absent: respiratory distress, wheezes, rales, rhonchi, stridor Cardiovascular Exam: Present: regular rate, normal rhythm, normal heart sounds. Absent: systolic murmur, diastolic murmur, rubs, gallop, clicks GI/Abdominal exam: Present: soft, tenderness (Generalized tenderness), normal bowel sounds. Absent: distended, guarding, rebound, rigid Neurological exam: Present: alert, oriented X3, CN II-XII intact Psychiatric exam: Present: normal affect, normal mood Skin exam: Present: warm, dry, intact, normal color. Absent: rash Course Vital Signs 07/02/18 07/02/18 07/02/18 16:53 19:01 20:22 Temperature 98 F 98.2 F Pulse Rate 75 96 92 Respiratory 18 18 20 Rate Blood Pressure 122/93 127/88 140/91 O2 Sat by Pulse 100 100 99 Oximetry Medical Decision Making - Medical Decision Making 62-year-old male patient presents to the emergency department today with complaints of generalized abdominal pain and nausea. Labs reviewed and are unremarkable. Did obtain CT abdomen and pelvis given patient's history which showed no acute abnormalities. I did discuss findings and results with the patient at which time he did admit to being out of his oxycodone and morphine for the last 3 days. We did discuss withdrawals a possible cause for his symptoms. He'll be given a dose of clonidine here in the department. He will be discharged home with a prescription for Zofran. He does have an appointment with his primary care physician on Thursday to have refills of his medications. He is urged to keep this appointment. Return parameters were discussed in detail. He verbalizes understanding. - Lab Data Result diagrams: 07/02/18 19:00 07/02/18 19:00 Lab Results 07/02/18 07/02/18 07/02/18 Range/Units 19:00 19:00 19:00 WBC 5.8 (3.8-10.6) k/uL RBC 5.04 (4.30-5.90) m/uL Hgb 13.4 (13.0-17.5) gm/dL Hct 42.9 (39.0-53.0) % MCV 85.1 (80.0-100.0) fL MCH 26.5 (25.0-35.0) pg MCHC 31.1 (31.0-37.0) g/dL RDW 18.1 H (11.5-15.5) % Plt Count 609 H D (150-450) k/uL Neutrophils % 74 % Lymphocytes % 20 % Monocytes % 5 % Eosinophils % 0 % Basophils % 0 % Neutrophils # 4.3 (1.3-7.7) k/uL Lymphocytes # 1.1 (1.0-4.8) k/uL Monocytes # 0.3 (0-1.0) k/uL Eosinophils # 0.0 (0-0.7) k/uL Basophils # 0.0 (0-0.2) k/uL Hypochromasia Slight Anisocytosis Slight Sodium 141 (137-145) mmol/L Potassium 4.7 (3.5-5.1) mmol/L Chloride 105 (98-107) mmol/L Carbon Dioxide 25 (22-30) mmol/L Anion Gap 11 mmol/L BUN 8 L (9-20) mg/dL Creatinine 0.63 L (0.66-1.25) mg/dL Est GFR (CKD-EPI)AfAm >90 (>60 ml/min/1.73 sqM) Est GFR (CKD-EPI)NonAf >90 (>60 ml/min/1.73 sqM) Glucose 118 H (74-99) mg/dL Plasma Lactic Acid Rosales 1.3 (0.7-2.0) mmol/L Calcium 10.7 H (8.4-10.2) mg/dL Total Bilirubin 0.7 (0.2-1.3) mg/dL AST 14 L (17-59) U/L ALT 17 L (21-72) U/L Alkaline Phosphatase 100 (38-126) U/L Total Protein 8.3 H (6.3-8.2) g/dL Albumin 4.9 (3.5-5.0) g/dL Amylase 84 (30-110) U/L Lipase 29 (23-300) U/L Urine Color Urine Appearance (Clear) Urine pH (5.0-8.0) Ur Specific [place] (1.001-1.035) Urine Protein (Negative) Urine Glucose (UA) (Negative) Urine Ketones (Negative) Urine Blood (Negative) Urine Nitrite (Negative) Urine Bilirubin (Negative) Urine Urobilinogen (<2.0) mg/dL Ur Leukocyte Esterase (Negative) 07/02/18 Range/Units 21:45 WBC (3.8-10.6) k/uL RBC (4.30-5.90) m/uL Hgb (13.0-17.5) gm/dL Hct (39.0-53.0) % MCV (80.0-100.0) fL MCH (25.0-35.0) pg MCHC (31.0-37.0) g/dL RDW (11.5-15.5) % Plt Count (150-450) k/uL Neutrophils % % Lymphocytes % % Monocytes % % Eosinophils % % Basophils % % Neutrophils # (1.3-7.7) k/uL Lymphocytes # (1.0-4.8) k/uL Monocytes # (0-1.0) k/uL Eosinophils # (0-0.7) k/uL Basophils # (0-0.2) k/uL Hypochromasia Anisocytosis Sodium (137-145) mmol/L Potassium (3.5-5.1) mmol/L Chloride (98-107) mmol/L Carbon Dioxide (22-30) mmol/L Anion Gap mmol/L BUN (9-20) mg/dL Creatinine (0.66-1.25) mg/dL Est GFR (CKD-EPI)AfAm (>60 ml/min/1.73 sqM) Est GFR (CKD-EPI)NonAf (>60 ml/min/1.73 sqM) Glucose (74-99) mg/dL Plasma Lactic Acid Rosales (0.7-2.0) mmol/L Calcium (8.4-10.2) mg/dL Total Bilirubin (0.2-1.3) mg/dL AST (17-59) U/L ALT (21-72) U/L Alkaline Phosphatase (38-126) U/L Total Protein (6.3-8.2) g/dL Albumin (3.5-5.0) g/dL Amylase (30-110) U/L Lipase (23-300) U/L Urine Color Yellow Urine Appearance Clear (Clear) Urine pH 6.0 (5.0-8.0) Ur Specific [place] 1.020 (1.001-1.035) Urine Protein Trace H (Negative) Urine Glucose (UA) Negative (Negative) Urine Ketones Trace H (Negative) Urine Blood Negative (Negative) Urine Nitrite Negative (Negative) Urine Bilirubin Negative (Negative) Urine Urobilinogen <2.0 (<2.0) mg/dL Ur Leukocyte Esterase Negative (Negative) - Radiology Data Radiology results: report reviewed, image reviewed Two-view x-ray of the abdomen is obtained. There is no sign of intestinal obstruction or pneumoperitoneum. Fecal pattern is normal. There is posterior fusion surgery in the lower lumbar spine. There are clips from cholecystectomy. There are no pathologic calcifications over the kidneys. Impression by Dr. Morrison shows nonacute abdomen with no change. CT of the abdomen and pelvis with contrast was obtained. Report was reviewed in its entirety. Impression by Dr. Morrison shows mild colonic diverticulosis without diverticulitis. Normal appendix. Minimal scarring or subsegmental atelectasis at the right lung base. Disposition Clinical Impression: Abdominal pain, Vomiting, Opiate withdrawal Disposition: HOME SELF-CARE Condition: Good Instructions: Acute Nausea and Vomiting (ED), Abdominal Pain (ED), Opioid Withdrawal (ED) Additional Instructions: Take medications as directed. Follow up with your primary care physician for recheck as soon as possible. Return here immediately for any new, worsening, or concerning symptoms. Prescriptions: Ondansetron [Zofran ODT] 4 mg PO Q8HR PRN #10 tab PRN Reason: Nausea Is patient prescribed a controlled substance at d/c from ED?: No Referrals: Lucian Mares MD [Primary Care Provider] - 1-2 days Time of Disposition: 23:00
--- NOTE | 2018-07-02 19:42 | XR ---
EXAMINATION TYPE: XR KUB DATE OF EXAM: 07/02/2018 COMPARISON: 12/03/2017 HISTORY: Abdominal pain TECHNIQUE: 2 views FINDINGS: There is no sign of intestinal obstruction or pneumoperitoneum. Fecal pattern is normal. Th ere is posterior fusion surgery in the lower lumbar spine. There are clips from cholecystectomy. Ther e are no pathologic calcifications over the kidneys. IMPRESSION: Nonacute abdomen. No change.
[2018-07-02] MEDS ORDERED: diphenhydrAMINE 50 MG/ML 1 ML VIAL IVP STA (20:00)
[2018-07-02] MEDS ORDERED: METOCLOPRAMIDE 5 MG/ML 2 ML VIAL IVP STA (20:00)
[2018-07-02] MEDS ORDERED: MORPHINE SULFATE 4 MG/ML SYRINGE IVP STA (20:00)
[2018-07-02 20:23] VITALS: RESP 20
--- NOTE | 2018-07-02 21:38 | CT ---
EXAMINATION TYPE: CT abdomen pelvis w con DATE OF EXAM: 07/02/2018 COMPARISON: 01/31/2009 HISTORY: Abdominal pain CT DLP: mGycm Automated exposure control for dose reduction was used. TECHNIQUE: Helical acquisition of images was performed from the lung bases through the pelvis. CONTRAST: Isovue 100 mL FINDINGS: There is minimal linear density at the right posterior lung base. There is no pleural effusion. Heart size is normal. There are tiny cysts in the liver. Bile ducts are not dilated. There are clips from cholecystectomy. Spleen appears normal. There is no pancreatic mass. There is no adrenal mass. Kidneys show satisfactory contrast opacification. There is no hydronephrosi s. There is no retroperitoneal adenopathy. There is no ascites. There is metal artifact from lumbar s pine fusion surgery. Appendix appears normal. There is no evidence of a bowel obstruction. There is n o ascites there is no free air. I see no bony destructive process. There is some colonic diverticulos is. IMPRESSION: MILD COLONIC DIVERTICULOSIS WITHOUT DIVERTICULITIS. NORMAL APPENDIX. MINIMAL SCARRING OR SUBSEGMENTAL ATELECTASIS AT THE RIGHT LUNG BASE.
[2018-07-02 21:53] LABS: Appearance,Urine Clear (Clear); Bilirubin,Urine Negative (Negative); Blood,Urine Negative (Negative); Color,Urine Yellow; Glucose,Urine (UA) Negative (Negative); Ketones,Urine Trace (Negative); Leukocyte Esterase,Urine Negative (Negative); Nitrite,Urine Negative (Negative); Protein,Urine Trace (Negative); Urobilinogen,Urine <2.0 mg/dL (<2.0)
[2018-07-02] MEDS ORDERED: MORPHINE SULFATE 2 MG/ML SYRINGE IVP STA (22:58)
[2018-07-02] MEDS ORDERED: cloNIDine HCL 0.1 MG TAB PO STA (22:58)
[2018-07-02 23:44] VITALS: BP 146/90; PULSE 81
== END 2018-07-02 23:54 | disposition home or self-care (01) ==
LOC: EC 16:43
DX: F11.23 Opioid dependence with withdrawal (principal); R10.84 Generalized abdominal pain; R11.2 Nausea with vomiting, unspecified; I25.10 Atherosclerotic heart disease of native coronary artery without angina pectoris; I10 Essential (primary) hypertension; Z87.19 Personal history of other diseases of the digestive system; Z87.11 Personal history of peptic ulcer disease; I73.9 Peripheral vascular disease, unspecified; Z95.5 Presence of coronary angioplasty implant and graft; Z87.891 Personal history of nicotine dependence; Z79.82 Long term (current) use of aspirin; Z79.51 Long term (current) use of inhaled steroids; Z79.899 Other long term (current) drug therapy; Z88.6 Allergy status to analgesic agent
CPT/HCPCS: 36415; 80053; 82150; 83605; 83690; 85025; 81003; 74018; 74177; 99284; 96374; 96375 ×3; 96376 ×3; 96361 ×5; J2270 ×2; J1200; J2765; J2405; Q9967

== ENCOUNTER 2018-08-01 17:29 | Observation (INO) | payer MEDICARE ==
[2018-08-01] MEDS ORDERED: NITROGLYCERIN OINT 1 INCH/GM PACKET TOPICAL STA (17:42)
[2018-08-01] MEDS ORDERED: ASPIRIN 81 MG PO STA (17:42)
[2018-08-01] MEDS ORDERED: METOPROLOL TARTRATE 5 MG/5 ML VIAL IVP STA (17:53)
--- NOTE | 2018-08-01 17:53 | ED ---
General Adult HPI - General Chief complaint: Chest Pain Stated complaint: Abd&CHest Pain Time Seen by Provider: 08/01/18 17:30 Source: patient, RN notes reviewed Mode of arrival: ambulatory Limitations: no limitations - History of Present Illness Initial comments: This is a 62-year-old male who presents emergency Department with a past medical history significant for multiple cardiac stents. Patient states since yesterday he has been having intermittent chest pain radiating down his left arm. Patient states he is short of breath with the chest pain as well. Patient states currently is not having any chest pain. Patient denies any nausea vomiting. Patient denies any diaphoresis. Patient denies any abdominal pain. Patient denies any recent fever chills or cough. Patient denies headache patient denies numbness or weakness. Patient denies any lightheadedness dizziness or near syncopal episode. - Related Data Home Medications Medication Instructions Recorded Confirmed Aspirin 81 mg PO DAILY 01/21/17 08/01/18 Carvedilol 25 mg PO BID 01/21/17 08/01/18 Fluticasone Nasal [place] [Flonase 1 spray EA NOSTRIL BID 04/20/17 08/01/18 Nasal [place]] Morphine Sulfate ER [Ms Contin] 30 mg PO TID 10/10/17 08/01/18 tiZANidine [Zanaflex] 4 mg PO TID PRN 02/26/18 08/01/18 oxyCODONE HCL 15 mg PO Q6H PRN 08/01/18 08/01/18 Previous Rx's Medication Instructions Recorded Atorvastatin [Lipitor] 80 mg PO HS #30 tab 10/12/17 Prasugrel [Effient] 10 mg PO DAILY #30 tab 10/12/17 Lisinopril [Zestril] 5 mg PO HS #30 tab 10/13/17 Pantoprazole Sodium [Protonix] 40 mg PO DAILY #60 tablet. 11/21/17 Ondansetron [Zofran ODT] 4 mg PO Q8HR PRN #10 tab 07/02/18 Allergies Allergy/AdvReac Type Severity Reaction Status Date / Time ibuprofen [From Motrin] Allergy Rash/Hives Verified 08/01/18 18:04 ketorolac tromethamine Allergy Rash/Hives Verified 08/01/18 18:04 [From Toradol] Review of Systems ROS Statement: Those systems with pertinent positive or pertinent negative responses have been documented in the HPI. ROS Other: All systems not noted in ROS Statement are negative. Past Medical History Past Medical History: Coronary Artery Disease (CAD), Chest Pain / Angina, Deep Vein Thrombosis (DVT), GERD/Reflux, Hyperlipidemia, Hypertension Additional Past Medical History / Comment(s): 11/24/17 EGD/colonoscopy which pt states showed, gastritis, small hiatal hernia and diverticular dx, pt states years ago he had PUD, chronic low back pain, chronic pain syndrome, migraines, PVD, DVT L arm, numbness/tingling bilateral lower legs, bilateral past hand fractures History of Any Multi-Drug Resistant Organisms: None Reported Past Surgical History: Back Surgery, Heart Catheterization With Stent, Orthopedic Surgery Additional Past Surgical History / Comment(s): EGDs/colonoscopies with last time being 11/24/17, multiple low back surgeries, bilateral arm and bilateral thigh surgeries for brown recluse spider bites with infection, morphine pain pump insertion and removal due to infection, PCI with stents, L rotator cuff repair, L knee arthroscopy, R cataract removal. Past Anesthesia/Blood Transfusion Reactions: No Reported Reaction Additional Past Anesthesia/Blood Transfusion Reaction / Comment(s): Pt recieved blood after back surgery and tolerated it well. Date of Last Stent Placement:: 10/11/17 Past Psychological History: No Psychological Hx Reported Smoking Status: Former smoker Past Alcohol Use History: None Reported Past Drug Use History: None Reported - Past Family History Father Additional Family Medical History / Comment(s): Father had back problems. He lived to be 82 yrs old. Mother Family Medical History: Hypertension, Myocardial Infarction ([place]) Additional Family Medical History / Comment(s): Mother of a [place] at the age of 55yrs. Brother(s) Family Medical History: Cancer Additional Family Medical History / Comment(s): Leukemia General Exam - General Exam Comments Initial Comments: GENERAL: Patient is well-developed and well-nourished. Patient is nontoxic and well- hydrated and is in mild distress. ENT: Neck is soft and supple. No significant lymphadenopathy is noted. Oropharynx is clear. Moist mucous membranes. Neck has full range of motion without eliciting any pain. EYES: The sclera were anicteric and conjunctiva were pink and moist. Extraocular movements were intact and pupils were equal round and reactive to light. Eyelids were unremarkable. PULMONARY: Unlabored respirations. Good breath sounds bilaterally. No audible rales rhonchi or wheezing was noted. CARDIOVASCULAR: There is a regular rate and rhythm without any murmurs gallops or rubs. ABDOMEN: Soft and nontender with normal bowel sounds. No palpable organomegaly was noted. There is no palpable pulsatile mass. SKIN: Skin is clear with no lesions or rashes and otherwise unremarkable. NEUROLOGIC: Patient is alert and oriented x3. Cranial nerves II through XII are grossly intact. Motor and sensory are also intact. Normal speech, volume and content. Symmetrical smile. MUSCULOSKELETAL: Normal extremities with adequate strength and full range of motion. No lower extremity swelling or edema. No calf tenderness. LYMPHATICS: No significant lymphadenopathy is noted PSYCHIATRIC: Normal psychiatric evaluation. Limitations: no limitations Course Vital Signs 08/01/18 17:33 Temperature 98.6 F Pulse Rate 104 H Respiratory 20 Rate Blood Pressure 164/109 O2 Sat by Pulse 99 Oximetry Medical Decision Making - Medical Decision Making EKG shows normal sinus rhythm at 90 bpm GA interval 154 QRS is 88 QT interval 362 QTC is 462. Patient's EKG shows no ST segment elevation or depression or T wave abnormalities are noted. Chest x-ray showed no acute abnormalities. I started patient on heparin because of his past medical history his clinical symptoms today. Patient will be admitted I spoke with Dr. Ng he agreed to admit the patient wrote admitting orders I consult to cardiology admitted Dr. Mares I continued heparin Nitropaste and aspirin on the floor. Critical Care Time Critical Care Time: Yes Total Critical Care Time: 35 Disposition Clinical Impression: Unstable angina Disposition: ADMITTED IP TO THIS HOSP Referrals: Lucian Mares MD [Primary Care Provider] - 1-2 days Time of Disposition: 18:32
[2018-08-01] MEDS ORDERED: HEPARIN SODIUM,PORCINE 5,000 UNIT/ML 1 ML VIAL IV ONE (18:28)
[2018-08-01] MEDS ORDERED: HEPARIN SOD,PORK IN 0.45% NACL 25,000 UNIT in 0.45% NACL 1 500ML.BAG IV SCH (18:30)
[2018-08-01] MEDS ORDERED: NITROGLYCERIN SL TABS 0.4 MG TAB SUBLINGUAL PRN (18:32)
[2018-08-01] MEDS ORDERED: ONDANSETRON ODT 4 MG TAB PO PRN (18:38)
[2018-08-01] MEDS ORDERED: ALPRAZolam 0.25 MG TAB PO PRN (18:39)
[2018-08-01] MEDS ORDERED: hydrALAZINE HCL 20 MG/ML 1 ML VIAL IVP PRN (18:39)
[2018-08-01] MEDS ORDERED: TEMAZEPAM 15 MG CAP PO PRN (18:39)
--- NOTE | 2018-08-01 18:44 | XR ---
EXAMINATION TYPE: XR chest 2V DATE OF EXAM: 08/01/2018 COMPARISON: Prior chest x-ray May 01, 2018. HISTORY: Dizziness and weakness, chest pain per order. TECHNIQUE: Frontal and lateral views of the chest are obtained. FINDINGS: There is chronic parenchymal change without suspicious focal air space opacity, pleural ef fusion, or pneumothorax seen. The cardiac silhouette size is stable and upper limits of normal. Surg ical changes cervical spine is partially imaged. IMPRESSION: Chronic changes without acute cardiopulmonary process.
[2018-08-01 18:50] LABS: Anisocytosis Slight; Basophils % (A) 0 %; Eosinophils % (A) 1 %; HCT 36.1 % (39.0-53.0); HGB 11.4 gm/dL (13.0-17.5); Lymphocytes # (A) 1.2 k/uL (1.0-4.8); Lymphocytes % (A) 29 %; MCH 27.3 pg (25.0-35.0); MCHC 31.5 g/dL (31.0-37.0); MCV 86.5 fL (80.0-100.0); Mean Platelet Volume 6.2; Monocytes # (A) 0.3 k/uL (0-1.0); Monocytes % (A) 7 %; Neutrophils # (A) 2.4 k/uL (1.3-7.7); Neutrophils % (A) 60 %; Platelet Count 425 k/uL (150-450); RBC 4.18 m/uL (4.30-5.90); RDW 16.2 % (11.5-15.5)
[2018-08-01] MEDS ORDERED: ONDANSETRON 4 MG/2 ML VIAL IVP STA (18:50)
[2018-08-01 19:06] LABS: INR 1.1 (<1.2); Partial Thromboplastin Time 25.1 sec (22.0-30.0); Prothrombin Time 10.8 sec (9.0-12.0)
[2018-08-01 19:08] LABS: ALT 19 U/L (21-72); AST 11 U/L (17-59); Albumin 3.8 g/dL (3.5-5.0); Alkaline Phosphatase 80 U/L (38-126); Anion Gap 10 mmol/L; Blood Urea Nitrogen 7 mg/dL (9-20); Calcium 9.3 mg/dL (8.4-10.2); Carbon Dioxide 23 mmol/L (22-30); Chloride 108 mmol/L (98-107); Glucose 101 mg/dL (74-99); Magnesium 1.9 mg/dL (1.6-2.3); Potassium 3.8 mmol/L (3.5-5.1); Sodium 141 mmol/L (137-145); Total Bilirubin 0.3 mg/dL (0.2-1.3); Total Protein 6.7 g/dL (6.3-8.2)
[2018-08-01 19:19] LABS: Creatine Kinase 43 U/L (55-170)
[2018-08-01 19:33] LABS: Creatine Kinase MB 0.4 ng/mL (0.0-2.4); Troponin I <0.012 ng/mL (0.000-0.034)
[2018-08-01] MEDS ORDERED: LISINOPRIL 5 MG TAB PO SCH (21:00)
[2018-08-01] MEDS ORDERED: ATORVASTATIN 80 MG TAB PO SCH (21:00)
[2018-08-01 21:14] VITALS: BMI 24.3
[2018-08-01] MEDS: CARVEDILOL 12.5 MG TAB PO SCH (21:14)
[2018-08-01] MEDS: MORPHINE SULFATE ER 30 MG TABLET PO SCH (21:14)
[2018-08-01] MEDS: PANTOPRAZOLE 40 MG/10 ML VIAL IVP SCH (21:15)
[2018-08-01] MEDS: FLUTICASONE 50MCG/SPRAY NASAL 16GM EA NOSTRIL SCH (21:15)
[2018-08-01] MEDS: tiZANidine 4 MG TAB PO PRN (22:18)
--- NOTE | 2018-08-01 23:13 | HP ---
HISTORY AND PHYSICAL I am covering for Dr. Mares. DATE OF SERVICE: 08/01/2018 CHIEF COMPLAINT: Chest pain. COVERING FOR DR: This 62-year-old gentleman with a past medical history of multiple medical problems including CAD, history of DVT, GERD, hypertension, dementia, chronic pain syndrome, CAD stent being followed by Dr. Mares in the outpatient setting was admitted complaining of chest pain and abdominal pain. The patient also has some intermittent chest pain radiating down the left arm. The patient also had shortness of breath. The patient also had some nausea. Because of multiple complications, patient came to [facility] and was admitted for further evaluation. Patient also reports a weight loss of 10 pounds also. PAST MEDICAL HISTORY: History of CAD, history of chest pain, DVT, GERD, hypertension, hyperlipidemia, history of back surgery, CAD stent. MEDICATIONS: Home medications are reviewed and include: 1. Zanaflex 4 mg t.i.d. p.r.n. 2. Oxycodone 50 mg p.o. q.6h. 3. Effient 10 mg p.o. daily. 4. Protonix 40 mg daily. 5. Zofran 4 mg q.8h p.r.n. 6. MS Contin 30 mg p.o. t.i.d. 7. Zestril 5 mg q.h.s. 8. Flonase 1 spray b.i.d. 9. Coreg 25 mg p.o. b.i.d. 10.Lipitor 80 mg q.h.s. 11.Aspirin 81 mg p.o. daily. ALLERGIES: IBUPROFEN AND KETOROLAC. FAMILY HISTORY: History of hypertension and myocardial infarction in the family. SOCIAL HISTORY: Previous history of smoking. No history of alcohol intake. REVIEW OF SYSTEMS: ENT: No diminished vision or diminished hearing. CARDIOVASCULAR: As mentioned earlier. RESPIRATORY: As mentioned earlier. GI: As mentioned earlier. no dysuria or hematuria. NERVOUS SYSTEM: No numbness or weakness. ALLERGY/IMMUNOLOGY: No asthma or hayfever. MUSCULOSKELETAL as mentioned earlier. HEMATOLOGY/ONCOLOGY: No history of anemia. ENDOCRINE: No history of diabetes or hypothyroidism. CONSTITUTIONAL: As mentioned earlier . Dermatology: Negative. Rheumatology: Negative. Psychiatry: As mentioned earlier. PHYSICAL EXAMINATION: GENERAL: The patient is alert and oriented x3. VITAL SIGNS: The pulse is 104, blood pressure 161/90, respiration 20, temperature 98.2, pulse ox 98% on room air. HEENT: Oral mucosa moist. NECK is no jugular venous distention. No carotid bruit. No lymph node enlargement. CARDIOVASCULAR SYSTEM: S1, S2 muffled. No S3. No S4. RESPIRATORY: Breath sounds diminished in the bases. No rhonchi. No crackles. ABDOMEN: Soft. Mild diffuse discomfort on palpation. No guarding. No rigidity. No mass palpable. LEGS: No edema and no swelling. NERVOUS SYSTEM: Higher functions as mentioned earlier. Moves all four extremities. No focal deficits. Lymphatics: No lymph nodes palpable in the neck, axillae or groin. SKIN: No ulcer, rashes or bleeding. JOINTS: No active deforming arthropathy. LABS: Awaited at this time. The EKG done in the ER showed sinus tachycardia with nonspecific ST-T changes. ASSESSMENT: 1. Chest pain, possible unstable angina. 2. Abdominal pain, nausea, possible acute gastritis. 3. History of coronary artery disease/stent. 4. History of deep vein thrombosis. 5. Gastroesophageal reflux disease. 6. Hypertension. 7. Hyperlipidemia. 8. History of gastritis. 9. History of chronic low back pain and chronic pain syndrome. 10.Remote history of nicotine dependence. RECOMMENDATIONS AND DISCUSSION: In this 62-year-old gentleman who presented with multiple complex medical issues, we will monitor the patient closely. Continue the current medications, management and symptomatic treatment. Unstable angina protocol. Closely follow with Cardiology. Resume the home medications, symptomatic treatment provided. See orders for details and Dr. Mares will follow. MMODL / IJN: [id number] /
[2018-08-01] MEDS: NITROGLYCERIN OINT 1 INCH/GM PACKET TOPICAL SCH (23:21)
[2018-08-02 00:30] VITALS: RESP 16
[2018-08-02 02:21] LABS: Creatine Kinase 35 U/L (55-170)
[2018-08-02 02:35] LABS: Creatine Kinase MB 0.4 ng/mL (0.0-2.4); Troponin I <0.012 ng/mL (0.000-0.034)
[2018-08-02] MEDS: NITROGLYCERIN OINT 1 INCH/GM PACKET TOPICAL SCH (04:39)
[2018-08-02] MEDS: tiZANidine 4 MG TAB PO PRN (06:00)
[2018-08-02 06:17] LABS: Anisocytosis Slight; Basophils % (A) 1 %; Eosinophils # (A) 0.1 k/uL (0-0.7); Eosinophils % (A) 2 %; HCT 32.5 % (39.0-53.0); Hypochromasia Slight; Lymphocytes # (A) 1.5 k/uL (1.0-4.8); Lymphocytes % (A) 36 %; MCH 27.3 pg (25.0-35.0); MCHC 30.8 g/dL (31.0-37.0); MCV 88.6 fL (80.0-100.0); Mean Platelet Volume 6.3; Monocytes # (A) 0.3 k/uL (0-1.0); Monocytes % (A) 7 %; Neutrophils # (A) 2.2 k/uL (1.3-7.7); Neutrophils % (A) 53 %; Platelet Count 367 k/uL (150-450); RBC 3.67 m/uL (4.30-5.90); RDW 16.3 % (11.5-15.5); WBC 4.1 k/uL (3.8-10.6)
[2018-08-02 06:37] LABS: Creatine Kinase 30 U/L (55-170)
[2018-08-02 06:39] LABS: Anion Gap 8 mmol/L; Blood Urea Nitrogen 8 mg/dL (9-20); Calcium 8.5 mg/dL (8.4-10.2); Carbon Dioxide 21 mmol/L (22-30); Chloride 110 mmol/L (98-107); Cholesterol 113 mg/dL (<200); Glucose 97 mg/dL (74-99); HDL Cholesterol 41 mg/dL (40-60); LDL Cholesterol,Calculated 59 mg/dL (0-99); Potassium 3.5 mmol/L (3.5-5.1); Sodium 139 mmol/L (137-145); Triglycerides 63 mg/dL (<150)
[2018-08-02 06:50] LABS: Creatine Kinase MB 0.3 ng/mL (0.0-2.4); Troponin I <0.012 ng/mL (0.000-0.034)
[2018-08-02 08:07] VITALS: BP 107/78; PULSE 85; TEMP 98.5
[2018-08-02] MEDS ORDERED: PRASUGREL 10 MG TAB PO SCH (09:00)
[2018-08-02] MEDS ORDERED: ASPIRIN 325 MG TAB PO SCH (09:00)
[2018-08-02] MEDS: MORPHINE SULFATE ER 30 MG TABLET PO SCH (10:49)
[2018-08-02] MEDS: CARVEDILOL 12.5 MG TAB PO SCH (10:49)
[2018-08-02] MEDS: PANTOPRAZOLE 40 MG/10 ML VIAL IVP SCH (10:52)
[2018-08-02] MEDS: FLUTICASONE 50MCG/SPRAY NASAL 16GM EA NOSTRIL SCH (10:52)
--- NOTE | 2018-08-02 11:55 | P.CRDCN ---
History of Present Illness History of present illness: Mr. Johnson is a pleasant 62-year-old male past medical history significant for coronary artery disease s/p stening of LAD and diagonal branch last cath 2016 revealing patent stents, hypertension, dyslipidemia and gastroesophageal reflux disease. He follows with a farm machine operator out of [facility]. We have been asked to see him in consultation for chest pain. He states yesterday while he was sitting down watching football he started feeling a sharp in in the left upper quadrant of his abdomen that radiated up in the left precordial region. He started feeling short of breath, dizzy and nauseated. He then started vomiting and states he threw up 4-5 times throughout the day. He continues to feel pain in the left upper quadrant of his abdomen and generalized aches all over his body. He denies ever feeling palpitations or diaphoresis. EKG reveals sinus mechanism with no acute ST or T-wave abnormalities. Chest xray negative for an acute cardiopulmonary process. Laboratory data reviewed, hgb 10.0, plt 367, sodium 139, potassium 3.5, creatinine 0.62, magnesium 1.9, cardiac enzymes negative x3, LDL 59, HDL 41. Current cardiac medications include aspirin 81 mg daily, effient 10 mg daily, lisnopril 5 mg daily, carvedilol 25 mg BID and atorvastatin 80 mg daily. He also takes protonix, zofran, morphine, zanaflex and oxycontin. Most recently 04/2018 he underwent a dobutamine stress echocardiogram that was normal with no evidence of stress induced ischemia with normal EF. Review of Systems At the time of my exam: CONSTITUTIONAL: Denies fever. Denies chills. EYES: Denies blurred vision. Denies vision changes. Denies eye pain. EARS, NOSE, MOUTH & THROAT: Denies headache. Denies sore throat. Denies ear pain. CARDIOVASCULAR: Denies chest pain. Denies shortness of breath. Denies orthopnea. Denies PND. Denies palpitations. RESPIRATORY: Denies cough. GASTROINTESTINAL: Complains of abdominal pain. Denies diarrhea. Denies constipation. Complains of nausea. Denies vomiting. MUSCULOSKELETAL: Denies myalgias. INTEGUMENTARY: Denies pruitis. Denies rash. NEUROLOGIC: Denies numbness. Denies tingling. Denies weakness. PSYCHIATRIC: Denies anxiety. Denies depression. ENDOCRINE: Denies fatigue. Denies weight change. Denies polydipsia. Denies polyurina. GENITOURINARY: Denies burning, hematuria or urgency with micturation. HEMATOLOGIC: Denies history of anemia. Denies bleeding. Past Medical History Past Medical History: Coronary Artery Disease (CAD), Chest Pain / Angina, Deep Vein Thrombosis (DVT), GERD/Reflux, Hyperlipidemia, Hypertension Additional Past Medical History / Comment(s): 11/24/17 EGD/colonoscopy which pt states showed, gastritis, small hiatal hernia and diverticular dx, pt states years ago he had PUD, chronic low back pain, chronic pain syndrome, migraines, PVD, DVT L arm, numbness/tingling bilateral lower legs, bilateral past hand fractures History of Any Multi-Drug Resistant Organisms: None Reported Past Surgical History: Back Surgery, Heart Catheterization With Stent, Orthopedic Surgery Additional Past Surgical History / Comment(s): EGDs/colonoscopies with last time being 11/24/17, multiple low back surgeries, bilateral arm and bilateral thigh surgeries for brown recluse spider bites with infection, morphine pain pump insertion and removal due to infection, PCI with stents, L rotator cuff repair, L knee arthroscopy, R cataract removal. Past Anesthesia/Blood Transfusion Reactions: No Reported Reaction Additional Past Anesthesia/Blood Transfusion Reaction / Comment(s): Pt recieved blood after back surgery and tolerated it well. Date of Last Stent Placement:: 10/11/17 Smoking Status: Former smoker - Past Family History Father Additional Family Medical History / Comment(s): Father had back problems. He lived to be 82 yrs old. Mother Family Medical History: Hypertension, Myocardial Infarction ([place]) Additional Family Medical History / Comment(s): Mother of a PA at the age of 55yrs. Brother(s) Family Medical History: Cancer Additional Family Medical History / Comment(s): Leukemia Medications and Allergies Home Medications Medication Instructions Recorded Confirmed Type Aspirin 81 mg PO DAILY 01/21/17 08/01/18 History Carvedilol 25 mg PO BID 01/21/17 08/01/18 History Fluticasone Nasal [place] [Flonase 1 spray EA NOSTRIL BID 04/20/17 08/01/18 History Nasal [place]] Morphine Sulfate ER [Ms Contin] 30 mg PO TID 10/10/17 08/01/18 History Atorvastatin [Lipitor] 80 mg PO HS #30 tab 10/12/17 08/01/18 Rx Prasugrel [Effient] 10 mg PO DAILY #30 tab 10/12/17 08/01/18 Rx Lisinopril [Zestril] 5 mg PO HS #30 tab 10/13/17 08/01/18 Rx Pantoprazole Sodium [Protonix] 40 mg PO DAILY #60 tablet. 11/21/17 08/01/18 Rx tiZANidine [Zanaflex] 4 mg PO TID PRN 02/26/18 08/01/18 History Ondansetron [Zofran ODT] 4 mg PO Q8HR PRN #10 tab 07/02/18 08/01/18 Rx oxyCODONE HCL 15 mg PO Q6H PRN 08/01/18 08/01/18 History Allergies Allergy/AdvReac Type Severity Reaction Status Date / Time ibuprofen [From Motrin] Allergy Rash/Hives Verified 08/01/18 21:03 ketorolac tromethamine Allergy Rash/Hives Verified 08/01/18 21:03 [From Toradol] Physical Exam Vitals: Vital Signs Temp Pulse Pulse Pulse Resp BP BP 08/02/18 08:00 98.5 F 85 16 107/78 08/02/18 04:00 98.2 F 93 16 110/71 08/02/18 00:00 97.6 F 91 16 123/68 08/01/18 23:44 18 08/01/18 21:52 18 08/01/18 20:06 98.0 F 86 18 162/95 08/01/18 17:33 98.6 F 104 H 20 164/109 08/01/18 17:30 83 20 Pulse Ox 08/02/18 08:00 96 08/02/18 04:00 96 08/02/18 00:00 96 08/01/18 23:44 08/01/18 21:52 08/01/18 20:06 98 08/01/18 17:33 99 08/01/18 17:30 Intake and Output 08/01/18 08/02/18 08/02/18 22:59 06:59 14:59 Intake Total 207.01 Balance 207.01 Intake: Intake, IV Titration 207.01 Amount Heparin Sod,Pork in 0.45% 207.01 NaCl 25,000 unit In 0.45 % NaCl 1 500ml.bag @ 12 UNITS/KG/HR 19.05 mls/hr IV .Q24H [facility] Rx#: [id number] Other: # Voids 1 1 Weight 79.3 kg Blood pressure 107/78 heart rate 85 afebrile maintaining oxygen saturation on room air GENERAL: This is a 62-year-old male in no apparent distress at the time of my examination. HEENT: Head is atraumatic, normocephalic. Pupils are equal, round. Sclerae anicteric. Conjunctivae are clear. Mucous membranes of the mouth are moist. Neck is supple. There is no jugular venous distention. No carotid bruit is heard. LUNGS: Clear to auscultation no wheezes, rales or rhonchi. No chest wall tenderness is noted on palpation or with deep breathing. HEART: Regular rate and rhythm without murmurs, rubs or gallops. S1 and S2 heard. ABDOMEN: Soft, nontender. Bowel sounds are heard. No organomegaly noted. EXTREMITIES: No evidence of peripheral edema and no calf tenderness noted. VASCULAR: Radial and dorsalis pedis pulses palpated, no evidence of clubbing. NEUROLOGIC: Patient is awake, alert and oriented x3. Results 08/02/18 05:59 08/02/18 05:59 Cardiac Enzymes 08/01/18 08/01/18 08/02/18 Range/Units 18:20 18:20 01:29 AST 11 L (17-59) U/L CK-MB (CK-2) 0.4 0.4 (0.0-2.4) ng/mL Troponin I <0.012 <0.012 (0.000-0.034) ng/mL 08/02/18 Range/Units 05:59 AST (17-59) U/L CK-MB (CK-2) 0.3 (0.0-2.4) ng/mL Troponin I <0.012 (0.000-0.034) ng/mL Coagulation 08/01/18 08/02/18 08/02/18 Range/Units 18:20 01:29 05:59 PT 10.8 (9.0-12.0) sec APTT 25.1 49.0 H 44.6 H (22.0-30.0) sec Lipids 08/02/18 Range/Units 05:59 Triglycerides 63 (<150) mg/dL Cholesterol 113 (<200) mg/dL HDL Cholesterol 41 (40-60) mg/dL CBC 08/01/18 08/02/18 Range/Units 18:20 05:59 WBC 4.0 4.1 (3.8-10.6) k/uL RBC 4.18 L 3.67 L (4.30-5.90) m/uL Hgb 11.4 L 10.0 L (13.0-17.5) gm/dL Hct 36.1 L 32.5 L (39.0-53.0) % Plt Count 425 367 (150-450) k/uL Comprehensive Metabolic Panel 08/01/18 08/02/18 Range/Units 18:20 05:59 Sodium 141 139 (137-145) mmol/L Potassium 3.8 3.5 (3.5-5.1) mmol/L Chloride 108 H 110 H (98-107) mmol/L Carbon Dioxide 23 21 L (22-30) mmol/L BUN 7 L 8 L (9-20) mg/dL Creatinine 0.54 L 0.62 L (0.66-1.25) mg/dL Glucose 101 H 97 (74-99) mg/dL Calcium 9.3 8.5 (8.4-10.2) mg/dL AST 11 L (17-59) U/L ALT 19 L (21-72) U/L Alkaline Phosphatase 80 (38-126) U/L Total Protein 6.7 (6.3-8.2) g/dL Albumin 3.8 (3.5-5.0) g/dL Current Medications Generic Name Dose Route Start Last Admin Trade Name Freq PRN Reason Stop Dose Admin Alprazolam 0.25 mg 08/01/18 18:39 Xanax PO TID PRN Anxiety Aspirin 325 mg 08/02/18 09:00 Aspirin PO DAILY [facility] Atorvastatin Calcium 80 mg 08/01/18 21:00 08/01/18 21:14 Lipitor PO 80 mg HS [facility] Administration Carvedilol 25 mg 08/01/18 21:00 08/01/18 21:14 Coreg PO 25 mg BID [facility] Administration Fluticasone Propionate 1 spray 08/01/18 21:00 08/01/18 21:15 Flonase Nasal [place] EA NOSTRIL 1 spray BID [facility] Administration Hydralazine HCl 10 mg 08/01/18 18:39 Apresoline IVP Q4HR PRN Blood Pressure - High Heparin Sodium/Sodium Chloride 500 mls @ 19.05 mls/hr 08/01/18 18:30 06:33 25,000 unit/ Sodium Chloride IV 14 units/kg/hr .Q24H [facility] 22.22 mls/hr Titration Protocol 12 UNITS/KG/HR Lisinopril 5 mg 08/01/18 21:00 08/01/18 21:14 Zestril PO 5 mg HS [facility] Administration Morphine Sulfate 30 mg 08/01/18 22:00 08/01/18 21:14 Ms Contin PO 30 mg TID [facility] Administration Nitroglycerin 1 inch 08/02/18 00:00 08/02/18 04:39 Nitro-Bid Oint TOPICAL Not Given Q6HR [facility] Nitroglycerin 0.4 mg 08/01/18 18:32 Nitrostat SUBLINGUAL Q5M PRN Chest Pain Ondansetron HCl 4 mg 08/01/18 18:38 08/02/18 01:23 Zofran Odt PO 4 mg Q8HR PRN Administration Nausea Oxycodone HCl 15 mg 08/01/18 18:38 08/02/18 03:19 Oxyir PO 15 mg Q6H PRN Administration Breakthrough Pain Pantoprazole Sodium 40 mg 08/01/18 21:00 08/01/18 21:15 Protonix IVP 40 mg BID [facility] Administration Prasugrel 10 mg 08/02/18 09:00 Effient PO DAILY [facility] Temazepam 15 mg 08/01/18 18:39 Restoril PO HS PRN Insomnia Tizanidine HCl 4 mg 08/01/18 18:38 08/02/18 06:00 Zanaflex PO 4 mg TID PRN Administration Muscle Spasm Intake and Output 08/01/18 08/02/18 08/02/18 22:59 06:59 14:59 Intake Total 207.01 Balance 207.01 Intake: Intake, IV Titration 207.01 Amount Heparin Sod,Pork in 0.45% 207.01 NaCl 25,000 unit In 0.45 % NaCl 1 500ml.bag @ 12 UNITS/KG/HR 19.05 mls/hr IV .Q24H [facility] Rx#: [id number] Other: # Voids 1 1 Weight 79.3 kg 08/02/18 05:59 08/02/18 05:59 Assessment and Plan Assessment: ASSESSMENT Abdominal pain with radiation the chest. Recent normal stress test with catheterization less than 1 year ago. History of coronary artery disease maintained on dual antiplatlet therapy. 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 Hypertension Dyslipidemia Gastroesophageal reflux disease Chronic pain PLAN An acute coronary event has been ruled out with no EKG evidence of ischemia and negative cardiac enzymes. Recommend evaluation with either GI or surgical services for further investigation of abdominal pain. Stable from a cardiac perspective, follow up with primary farm machine operator upon discharge. Thank you kindly for this consultation. Nurse Practitioner note has been reviewed, I agree with a documented findings and plan of care. Patient was seen and examined.
[2018-08-03] MEDS ORDERED: ASPIRIN 81 MG PO SCH (09:00)
== END 2018-08-02 11:51 | disposition home or self-care (01) ==
LOC: EC 17:29 → 3OBS 18:32
PROVIDERS: ADMIT Family Medicine; ATTEND Family Medicine
DX: R07.89 Other chest pain (principal); K21.9 Gastro-esophageal reflux disease without esophagitis; R06.02 Shortness of breath; E78.5 Hyperlipidemia, unspecified; I10 Essential (primary) hypertension; G89.4 Chronic pain syndrome; M54.5 Low back pain; G43.909 Migraine, unspecified, not intractable, without status migrainosus; R20.2 Paresthesia of skin; R20.0 Anesthesia of skin; R42 Dizziness and giddiness; F03.90 Unspecified dementia, unspecified severity, without behavioral disturbance, psychotic disturbance, mood disturbance, and anxiety; R63.4 Abnormal weight loss; K29.70 Gastritis, unspecified, without bleeding; Z95.5 Presence of coronary angioplasty implant and graft; Z87.11 Personal history of peptic ulcer disease; Z79.82 Long term (current) use of aspirin; Z79.51 Long term (current) use of inhaled steroids; Z79.899 Other long term (current) drug therapy; Z79.891 Long term (current) use of opiate analgesic; Z88.8 Allergy status to other drugs, medicaments and biological substances; Z88.6 Allergy status to analgesic agent; I25.10 Atherosclerotic heart disease of native coronary artery without angina pectoris; Z86.718 Personal history of other venous thrombosis and embolism; I73.9 Peripheral vascular disease, unspecified; Z87.891 Personal history of nicotine dependence; Z80.6 Family history of leukemia
CPT/HCPCS: 99291 ×2; 96375 ×4; 96365 ×2; 96376 ×2; 36415; 93005; 83880; 80061; 80053; 80048; 82550 ×2; 82553 ×2; 83735; 84484 ×2; 85025 ×2; 85610; 85730 ×2; 71046; G0378 ×2; J1644 ×2; J2405; C9113

== ENCOUNTER 2018-11-08 19:07 | Emergency (ER) | payer MEDICARE ==
[2018-11-08 19:23] VITALS: RESP 16
--- NOTE | 2018-11-08 22:20 | US ---
EXAMINATION TYPE: US venous doppler duplex UE LT DATE OF EXAM: 11/08/2018 COMPARISON: NONE CLINICAL HISTORY: Pain. Left arm lump SIDE PERFORMED: Left Left Arm: Negative for DVT No evidence of DVT left arm. IMPRESSION: Grayscale, color doppler, spectral doppler imaging performed of the deep veins of the upper extremiti es. There is normal flow, compressability and vascular waveforms. Normal left arm duplex venous sonogram.
--- NOTE | 2018-11-08 22:37 | ED ---
Extremity Problem HPI - General Chief complaint: Extremity Problem,Nontraumatic Stated complaint: LUMP ON LEFT ARM Time Seen by Provider: 11/08/18 19:35 Source: patient Mode of arrival: ambulatory Limitations: no limitations - History of Present Illness Initial comments: 62-year-old male with past medical history of previous DVT and coronary artery disease status post stent placement on antiplatelet therapy present today for chief complaint of left forearm bruise. Patient states that he took off his jacket earlier today and noticed a bump with bruising on his left anterior forearm. He was concerned because he does not remember hitting her bumping his arm. He states he was concerned about blood clot and presented to the emergency department for evaluation. Patient denies any strenuous use of the upper extremities, popping sensation, difficulty ranging at the upper extremities, redness, warmth of the area, fever, chills or swelling of the UE. Patient has a chest pain, shortness breath, dyspnea on exertion, dizziness or any other associated symptoms. Patient states she has been compliant with his antiplatelet therapy. Remainder of our was negative. Upon arrival patient's BP elevated, remainder within acceptable limits. - Related Data Home Medications Medication Instructions Recorded Confirmed Aspirin 81 mg PO DAILY 01/21/17 11/08/18 Carvedilol 25 mg PO BID 01/21/17 11/08/18 Fluticasone Nasal [place] [Flonase 1 spray EA NOSTRIL BID 04/20/17 11/08/18 Nasal [place]] Morphine Sulfate ER [Ms Contin] 30 mg PO TID 10/10/17 11/08/18 tiZANidine [Zanaflex] 4 mg PO TID PRN 02/26/18 11/08/18 oxyCODONE HCL 15 mg PO Q6H PRN 08/01/18 11/08/18 Previous Rx's Medication Instructions Recorded Atorvastatin [Lipitor] 80 mg PO HS #30 tab 10/12/17 Prasugrel [Effient] 10 mg PO DAILY #30 tab 10/12/17 Lisinopril [Zestril] 5 mg PO HS #30 tab 10/13/17 Pantoprazole Sodium [Protonix] 40 mg PO DAILY #60 tablet. 11/21/17 Ondansetron [Zofran ODT] 4 mg PO Q8HR PRN #10 tab 07/02/18 Allergies Allergy/AdvReac Type Severity Reaction Status Date / Time ibuprofen [From Motrin] Allergy Rash/Hives Verified 11/08/18 19:23 ketorolac tromethamine Allergy Rash/Hives Verified 11/08/18 19:23 [From Toradol] Review of Systems ROS Statement: Those systems with pertinent positive or pertinent negative responses have been documented in the HPI. ROS Other: All systems not noted in ROS Statement are negative. Constitutional: Denies: fever, chills Respiratory: Denies: cough, dyspnea Cardiovascular: Denies: chest pain, palpitations, dyspnea on exertion, edema Gastrointestinal: Denies: abdominal pain, nausea, vomiting Genitourinary: Denies: urgency, dysuria Musculoskeletal: Denies: back pain Skin: Denies: rash, lesions Neurological: Denies: headache, weakness, numbness, paresthesias, confusion Hematological/Lymphatic: Reports: easy bruising Past Medical History Past Medical History: Coronary Artery Disease (CAD), Chest Pain / Angina, Deep Vein Thrombosis (DVT), GERD/Reflux, Hyperlipidemia, Hypertension Additional Past Medical History / Comment(s): 11/24/17 EGD/colonoscopy which pt states showed, gastritis, small hiatal hernia and diverticular dx, pt states years ago he had PUD, chronic low back pain, chronic pain syndrome, migraines, PVD, DVT L arm, numbness/tingling bilateral lower legs, bilateral past hand fractures History of Any Multi-Drug Resistant Organisms: None Reported Past Surgical History: Back Surgery, Heart Catheterization With Stent, Orthopedic Surgery Additional Past Surgical History / Comment(s): EGDs/colonoscopies with last time being 11/24/17, multiple low back surgeries, bilateral arm and bilateral thigh surgeries for brown recluse spider bites with infection, morphine pain pump insertion and removal due to infection, PCI with stents, L rotator cuff repair, L knee arthroscopy, R cataract removal. Past Anesthesia/Blood Transfusion Reactions: No Reported Reaction Additional Past Anesthesia/Blood Transfusion Reaction / Comment(s): Pt recieved blood after back surgery and tolerated it well. Date of Last Stent Placement:: 10/11/17 Past Psychological History: No Psychological Hx Reported Smoking Status: Former smoker - Past Family History Father Additional Family Medical History / Comment(s): Father had back problems. He lived to be 82 yrs old. Mother Family Medical History: Hypertension, Myocardial Infarction ([place]) Additional Family Medical History / Comment(s): Mother of a [place] at the age of 55yrs. Brother(s) Family Medical History: Cancer Additional Family Medical History / Comment(s): Leukemia General Exam - General Exam Comments Initial Comments: General: The patient is awake and alert, in no distress, and does not appear acutely ill. Eye: Pupils are equal, round and reactive to light, extra-ocular movements are intact. No nystagmus. There is normal conjunctiva bilaterally. No signs of icterus. Ears, nose, mouth and throat: There are moist mucous membranes and no oral lesions. Neck: The neck is supple, there is no tenderness or JVD. Cardiovascular: There is a regular rate and rhythm. No murmur, rub or gallop is appreciated. Respiratory: Lungs are clear to auscultation, respirations are non-labored, breath sounds are equal. No wheezes, stridor, rales, or rhonchi. Musculoskeletal: Normal ROM at the wrists, elbow and shoulder b/l, no tenderness. Strength 5/5. Sensation intact of the UE. Radial pulses equal bilaterally 2+. Patient able to make the okay, ferrous cross, thumbs-up and finger opposition, ulnar, median and radial nerves appear intact. No evidence of strep. Neurological: A&O x 3. CN II-XII intact, There are no obvious motor or sensory deficits. Coordination appears grossly intact. Speech is normal. Skin: Skin is warm and dry and no rashes. Hematoma noted of the left anterior forearm, no warmth however pain to palpation noted. No noted swelling of the left upper extremity. Psychiatric: Cooperative, appropriate mood & affect, normal judgment. Limitations: no limitations Course Vital Signs 11/08/18 11/08/18 19:20 22:51 Temperature 98.2 F 98.1 F Pulse Rate 80 84 Respiratory 16 16 Rate Blood Pressure 191/100 170/87 O2 Sat by Pulse 99 99 Oximetry Medical Decision Making - Medical Decision Making 62yo with cc of left arm hematoma, spontaneous. Pt on antiplt therapy. US obtained revealing no signs of DVT. MSK exam normal, pt neurovascularly intact. Hematoma resolving as visit continued upon reevalution. At this time I feel pt is stable for discharge, given history of antiplt therapy, no DVT on US. Pt is agreeable with plan. I recommended alternating warm and cold on area. Pt is to f/u with primary care provider tmrw, pt verbalizd understanding. I discussed return parameters as length with patient including return for new, worsening or persistent symptoms. Pt verbalized understanding, after discussing the case with Dr. Gordillo pt was discharge. BP elevated, however ROS (-), pt known hypertensive pt. I recommended f/u with primary for evaluation of elevated BP. Disposition Clinical Impression: Spontaneous hematoma of forearm Disposition: HOME SELF-CARE Condition: Good Instructions: Hematoma (ED) Additional Instructions: Please use medication as discussed. Please follow-up with family doctor in the next 1-2 days. Please return to emergency room if the symptoms increase or worsen or for any other concerns, as discussed. Is patient prescribed a controlled substance at d/c from ED?: No Referrals: Lucian Mares MD [Primary Care Provider] - 1-2 days Time of Disposition: 22:37
[2018-11-08 22:52] VITALS: BP 170/87; PULSE 84; TEMP 98.1
== END 2018-11-08 22:52 | disposition home or self-care (01) ==
LOC: EC 19:07
DX: S50.12XA Contusion of left forearm, initial encounter (principal); R22.32 Localized swelling, mass and lump, left upper limb; I25.10 Atherosclerotic heart disease of native coronary artery without angina pectoris; I10 Essential (primary) hypertension; I73.9 Peripheral vascular disease, unspecified; Z95.5 Presence of coronary angioplasty implant and graft; Z87.891 Personal history of nicotine dependence; Z79.82 Long term (current) use of aspirin; Z79.891 Long term (current) use of opiate analgesic; Z79.899 Other long term (current) drug therapy; Z88.6 Allergy status to analgesic agent; X58.XXXA Exposure to other specified factors, initial encounter
CPT/HCPCS: 99283

== ENCOUNTER 2018-11-28 18:23 | Inpatient (IN) | payer MEDICARE ==
[2018-11-28] MEDS ORDERED: NITROGLYCERIN OINT 1 INCH/GM PACKET TOPICAL STA (18:43)
--- NOTE | 2018-11-28 18:59 | ED ---
General Adult HPI - General Chief complaint: Chest Pain Stated complaint: chest & abdominal pain/vomiting Time Seen by Provider: 11/28/18 18:25 Source: patient, RN notes reviewed Mode of arrival: wheelchair Limitations: no limitations - History of Present Illness Initial comments: This is a 63-year-old male with past medical history significant for multiple stent placements for coronary artery disease. Patient comes in today because started having chest pain this morning he states it's been intermittent it radiates to his jaw on his left arm. Patient states she's also been very short of breath with the pain. Patient states she's on Effient. Patient also complains of a little abdominal pain. Patient states he is mildly nauseated but has no vomiting or diarrhea. Patient denies any headache patient denies numbness weakness. Patient denies any lightheadedness dizziness or near syncopal episode. Patient denies any recent fever chills or cough. Patient denies any leg swelling or calf tenderness. - Related Data Home Medications Medication Instructions Recorded Confirmed Aspirin 81 mg PO DAILY 01/21/17 11/28/18 Carvedilol 25 mg PO BID 01/21/17 11/28/18 Fluticasone Nasal [place] [Flonase 1 spray EA NOSTRIL BID 04/20/17 11/28/18 Nasal [place]] Morphine Sulfate ER [Ms Contin] 30 mg PO TID 10/10/17 11/28/18 tiZANidine [Zanaflex] 4 mg PO BID PRN 02/26/18 11/28/18 oxyCODONE HCL 15 mg PO TID PRN 08/01/18 11/28/18 Previous Rx's Medication Instructions Recorded Atorvastatin [Lipitor] 80 mg PO HS #30 tab 10/12/17 Prasugrel [Effient] 10 mg PO DAILY #30 tab 10/12/17 Lisinopril [Zestril] 5 mg PO HS #30 tab 10/13/17 Ondansetron [Zofran ODT] 4 mg PO Q8HR PRN #10 tab 07/02/18 Allergies Allergy/AdvReac Type Severity Reaction Status Date / Time ibuprofen [From Motrin] Allergy Rash/Hives Verified 11/28/18 18:39 ketorolac tromethamine Allergy Rash/Hives Verified 11/28/18 18:39 [From Toradol] Review of Systems ROS Statement: Those systems with pertinent positive or pertinent negative responses have been documented in the HPI. ROS Other: All systems not noted in ROS Statement are negative. Past Medical History Past Medical History: Coronary Artery Disease (CAD), Chest Pain / Angina, Deep Vein Thrombosis (DVT), GERD/Reflux, Hyperlipidemia, Hypertension Additional Past Medical History / Comment(s): 11/24/17 EGD/colonoscopy which pt states showed, gastritis, small hiatal hernia and diverticular dx, pt states years ago he had PUD, chronic low back pain, chronic pain syndrome, migraines, PVD, DVT L arm, numbness/tingling bilateral lower legs, bilateral past hand fractures History of Any Multi-Drug Resistant Organisms: None Reported Past Surgical History: Back Surgery, Heart Catheterization With Stent, Orthopedic Surgery Additional Past Surgical History / Comment(s): EGDs/colonoscopies with last time being 11/24/17, multiple low back surgeries, bilateral arm and bilateral thigh surgeries for brown recluse spider bites with infection, morphine pain pump insertion and removal due to infection, PCI with stents, L rotator cuff repair, L knee arthroscopy, R cataract removal. Past Anesthesia/Blood Transfusion Reactions: No Reported Reaction Additional Past Anesthesia/Blood Transfusion Reaction / Comment(s): Pt recieved blood after back surgery and tolerated it well. Date of Last Stent Placement:: 10/11/17 Past Psychological History: No Psychological Hx Reported Smoking Status: Former smoker Past Alcohol Use History: None Reported Past Drug Use History: None Reported - Past Family History Father Additional Family Medical History / Comment(s): Father had back problems. He lived to be 82 yrs old. Mother Family Medical History: Hypertension, Myocardial Infarction ([place]) Additional Family Medical History / Comment(s): Mother of a [place] at the age of 55yrs. Brother(s) Family Medical History: Cancer Additional Family Medical History / Comment(s): Leukemia General Exam - General Exam Comments Initial Comments: GENERAL: Patient is well-developed and well-nourished. Patient is nontoxic and well- hydrated and is in mild distress. ENT: Neck is soft and supple. No significant lymphadenopathy is noted. Oropharynx is clear. Moist mucous membranes. Neck has full range of motion without eliciting any pain. EYES: The sclera were anicteric and conjunctiva were pink and moist. Extraocular movements were intact and pupils were equal round and reactive to light. Eyelids were unremarkable. PULMONARY: Unlabored respirations. Good breath sounds bilaterally. No audible rales rhonchi or wheezing was noted. CARDIOVASCULAR: There is a regular rate and rhythm without any murmurs gallops or rubs. ABDOMEN: Soft and nontender with normal bowel sounds. No palpable organomegaly was noted. There is no palpable pulsatile mass. SKIN: Skin is clear with no lesions or rashes and otherwise unremarkable. NEUROLOGIC: Patient is alert and oriented x3. Cranial nerves II through XII are grossly intact. Motor and sensory are also intact. Normal speech, volume and content. Symmetrical smile. MUSCULOSKELETAL: Normal extremities with adequate strength and full range of motion. No lower extremity swelling or edema. No calf tenderness. LYMPHATICS: No significant lymphadenopathy is noted PSYCHIATRIC: Normal psychiatric evaluation. Limitations: no limitations Course Vital Signs 11/28/18 18:27 Temperature 98.0 F Pulse Rate 82 Respiratory 20 Rate Blood Pressure 185/129 O2 Sat by Pulse 98 Oximetry Medical Decision Making - Medical Decision Making EKG shows normal sinus rhythm at 80 bpm HI interval 156 QRS is 88 QT interval is 374 QTC is 431. Patient's EKG shows no ST segment elevation or depression or T wave abnormalities are noted. Chest x-ray shows no acute abnormality. I spoke with - Lab Data Result diagrams: 11/28/18 19:19 11/28/18 19:19 Lab Results 11/28/18 11/28/18 11/28/18 Range/Units 19:19 19:19 19:19 WBC 4.3 (3.8-10.6) k/uL RBC 4.76 (4.30-5.90) m/uL Hgb 12.8 L (13.0-17.5) gm/dL Hct 42.0 (39.0-53.0) % MCV 88.1 (80.0-100.0) fL MCH 26.9 (25.0-35.0) pg MCHC 30.6 L (31.0-37.0) g/dL RDW 16.6 H (11.5-15.5) % Plt Count 402 (150-450) k/uL Neutrophils % 62 % Lymphocytes % 29 % Monocytes % 5 % Eosinophils % 1 % Basophils % 1 % Neutrophils # 2.7 (1.3-7.7) k/uL Lymphocytes # 1.3 (1.0-4.8) k/uL Monocytes # 0.2 (0-1.0) k/uL Eosinophils # 0.1 (0-0.7) k/uL Basophils # 0.0 (0-0.2) k/uL Anisocytosis Slight PT (9.0-12.0) sec INR (<1.2) APTT (22.0-30.0) sec Sodium 142 (137-145) mmol/L Potassium 4.5 (3.5-5.1) mmol/L Chloride 110 H (98-107) mmol/L Carbon Dioxide 22 (22-30) mmol/L Anion Gap 10 mmol/L BUN 4 L (9-20) mg/dL Creatinine 0.64 L (0.66-1.25) mg/dL Est GFR (CKD-EPI)AfAm >90 (>60 ml/min/1.73 sqM) Est GFR (CKD-EPI)NonAf >90 (>60 ml/min/1.73 sqM) Glucose 100 H (74-99) mg/dL Calcium 9.8 (8.4-10.2) mg/dL Magnesium 2.0 (1.6-2.3) mg/dL Total Bilirubin 0.8 (0.2-1.3) mg/dL AST 18 (17-59) U/L ALT 17 L (21-72) U/L Alkaline Phosphatase 86 (38-126) U/L Total Creatine Kinase 61 (55-170) U/L CK-MB (CK-2) 0.5 (0.0-2.4) ng/mL CK-MB (CK-2) Rel Index 0.8 Troponin I <0.012 (0.000-0.034) ng/mL Total Protein 7.6 (6.3-8.2) g/dL Albumin 4.5 (3.5-5.0) g/dL 11/28/18 Range/Units 19:19 WBC (3.8-10.6) k/uL RBC (4.30-5.90) m/uL Hgb (13.0-17.5) gm/dL Hct (39.0-53.0) % MCV (80.0-100.0) fL MCH (25.0-35.0) pg MCHC (31.0-37.0) g/dL RDW (11.5-15.5) % Plt Count (150-450) k/uL Neutrophils % % Lymphocytes % % Monocytes % % Eosinophils % % Basophils % % Neutrophils # (1.3-7.7) k/uL Lymphocytes # (1.0-4.8) k/uL Monocytes # (0-1.0) k/uL Eosinophils # (0-0.7) k/uL Basophils # (0-0.2) k/uL Anisocytosis PT 10.9 (9.0-12.0) sec INR 1.0 (<1.2) APTT 24.9 (22.0-30.0) sec Sodium (137-145) mmol/L Potassium (3.5-5.1) mmol/L Chloride (98-107) mmol/L Carbon Dioxide (22-30) mmol/L Anion Gap mmol/L BUN (9-20) mg/dL Creatinine (0.66-1.25) mg/dL Est GFR (CKD-EPI)AfAm (>60 ml/min/1.73 sqM) Est GFR (CKD-EPI)NonAf (>60 ml/min/1.73 sqM) Glucose (74-99) mg/dL Calcium (8.4-10.2) mg/dL Magnesium (1.6-2.3) mg/dL Total Bilirubin (0.2-1.3) mg/dL AST (17-59) U/L ALT (21-72) U/L Alkaline Phosphatase (38-126) U/L Total Creatine Kinase (55-170) U/L CK-MB (CK-2) (0.0-2.4) ng/mL CK-MB (CK-2) Rel Index Troponin I (0.000-0.034) ng/mL Total Protein (6.3-8.2) g/dL Albumin (3.5-5.0) g/dL Disposition Clinical Impression: Chest pain Disposition: ADMITTED IP TO THIS [facility] Referrals: Nonstaff,Physician [Primary Care Provider] - 1-2 days Time of Disposition: 20:40
[2018-11-28 19:44] LABS: Anisocytosis Slight; Basophils % (A) 1 %; Eosinophils # (A) 0.1 k/uL (0-0.7); Eosinophils % (A) 1 %; HGB 12.8 gm/dL (13.0-17.5); Lymphocytes # (A) 1.3 k/uL (1.0-4.8); Lymphocytes % (A) 29 %; MCH 26.9 pg (25.0-35.0); MCHC 30.6 g/dL (31.0-37.0); MCV 88.1 fL (80.0-100.0); Mean Platelet Volume 6.2; Monocytes # (A) 0.2 k/uL (0-1.0); Monocytes % (A) 5 %; Neutrophils # (A) 2.7 k/uL (1.3-7.7); Neutrophils % (A) 62 %; Platelet Count 402 k/uL (150-450); RBC 4.76 m/uL (4.30-5.90); RDW 16.6 % (11.5-15.5); WBC 4.3 k/uL (3.8-10.6)
[2018-11-28 19:52] LABS: Partial Thromboplastin Time 24.9 sec (22.0-30.0); Prothrombin Time 10.9 sec (9.0-12.0)
--- NOTE | 2018-11-28 19:56 | XR ---
EXAMINATION TYPE: XR chest 2V DATE OF EXAM: 11/28/2018 COMPARISON: 08/01/2018 HISTORY: Chest pain TECHNIQUE: Frontal and lateral views of the chest are obtained. FINDINGS: There is no heart failure nor confluent pneumonic infiltrate. Costophrenic angles are heidy r. Thoracic aorta is atheromatous. There is cervical spine fusion surgery. There are chest leads. IMPRESSION: No active cardiopulmonary disease. Normal heart.
[2018-11-28 20:11] LABS: ALT 17 U/L (21-72); AST 18 U/L (17-59); Albumin 4.5 g/dL (3.5-5.0); Alkaline Phosphatase 86 U/L (38-126); Anion Gap 10 mmol/L; Blood Urea Nitrogen 4 mg/dL (9-20); Calcium 9.8 mg/dL (8.4-10.2); Carbon Dioxide 22 mmol/L (22-30); Chloride 110 mmol/L (98-107); Glucose 100 mg/dL (74-99); Potassium 4.5 mmol/L (3.5-5.1); Sodium 142 mmol/L (137-145); Total Bilirubin 0.8 mg/dL (0.2-1.3); Total Protein 7.6 g/dL (6.3-8.2)
[2018-11-28 20:12] LABS: Creatine Kinase 61 U/L (55-170)
[2018-11-28 20:24] LABS: Creatine Kinase MB 0.5 ng/mL (0.0-2.4); Troponin I <0.012 ng/mL (0.000-0.034)
[2018-11-28] MEDS ORDERED: NITROGLYCERIN SL TABS 0.4 MG TAB SUBLINGUAL PRN (20:41)
[2018-11-28] MEDS ORDERED: ONDANSETRON 8 MG in SODIUM CHLORIDE 0.9% 50 ML IVPB ONE (21:28)
[2018-11-28] MEDS ORDERED: MORPHINE SULFATE 2 MG/ML SYRINGE IVP STA (21:29)
[2018-11-28] MEDS ORDERED: HEPARIN SODIUM,PORCINE 5,000 UNIT/ML 1 ML VIAL IV ONE (21:40)
[2018-11-28] MEDS ORDERED: HEPARIN SODIUM,PORCINE 5,000 UNIT/ML 1 ML VIAL IV PRN (21:40)
[2018-11-28] MEDS ORDERED: HEPARIN SOD,PORK IN 0.45% NACL 25,000 UNIT in 0.45% NACL 1 250ML.BAG IV SCH (21:45)
[2018-11-28] MEDS ORDERED: tiZANidine 4 MG TAB PO PRN (21:51)
--- NOTE | 2018-11-28 21:55 | P.HPIM ---
History of Present Illness H&P Date: 11/28/18 The patient is a 63 yo M with a PMH of CAD s/p 3 stents w/ last LHC on 11/08 -- revealing patent stents w/ negative dobutamine stress echo on 05/10, chronic lower back pain, HTN, HLD, and GERD presented to the ED due to sudden onset of chest and abdominal pain. The patient endorsed 7, pressure like substernal chest pain, that began at 11 am this morning, with radiation to L arm and jaw, worsened by activity, and no alleviating factors with associated diaphoresis, and SOB. He also endorsed a squeezing epigastric abdominal pain that started at the same time w/ nausea and 4 episodes of vomiting. He also endorsed chronic ankle edema worse at end of the day. He otherwise denied cough, fever, chills, diarrhea, palpitations, calf pain, recent travel, sick contacts, dizziness, lightheadedness, or syncopal episodes. In the ED, the patient underwent a comprehensive w/u with CXR unremarkable, EKG showing NSR @ 80 bpm, Troponin < 0.02, WBC 4.3, Cr 0.64. Review of Systems Pertinent positives and negatives as discussed in HPI, a complete review of systems was performed and all other systems are negative. Past Medical History Past Medical History: Coronary Artery Disease (CAD), Chest Pain / Angina, Deep Vein Thrombosis (DVT), GERD/Reflux, Hyperlipidemia, Hypertension Additional Past Medical History / Comment(s): 11/24/17 EGD/colonoscopy which pt states showed, gastritis, small hiatal hernia and diverticular dx, pt states years ago he had PUD, chronic low back pain, chronic pain syndrome, migraines, PVD, DVT L arm, numbness/tingling bilateral lower legs, bilateral past hand fractures History of Any Multi-Drug Resistant Organisms: None Reported Past Surgical History: Back Surgery, Heart Catheterization With Stent, Orthopedic Surgery Additional Past Surgical History / Comment(s): EGDs/colonoscopies with last time being 11/24/17, multiple low back surgeries, bilateral arm and bilateral thigh surgeries for brown recluse spider bites with infection, morphine pain pump insertion and removal due to infection, PCI with stents, L rotator cuff repair, L knee arthroscopy, R cataract removal. Past Anesthesia/Blood Transfusion Reactions: No Reported Reaction Additional Past Anesthesia/Blood Transfusion Reaction / Comment(s): Pt recieved blood after back surgery and tolerated it well. Date of Last Stent Placement:: 10/11/17 Past Psychological History: No Psychological Hx Reported Smoking Status: Former smoker Past Alcohol Use History: None Reported Past Drug Use History: None Reported - Past Family History Father Additional Family Medical History / Comment(s): Father had back problems. He lived to be 82 yrs old. Mother Family Medical History: Hypertension, Myocardial Infarction ([place]) Additional Family Medical History / Comment(s): Mother of a [place] at the age of 55yrs. Brother(s) Family Medical History: Cancer Additional Family Medical History / Comment(s): Leukemia Medications and Allergies Home Medications Medication Instructions Recorded Confirmed Type Aspirin 81 mg PO DAILY 01/21/17 11/28/18 History Carvedilol 25 mg PO BID 01/21/17 11/28/18 History Fluticasone Nasal [place] [Flonase 1 spray EA NOSTRIL BID 04/20/17 11/28/18 History Nasal [place]] Morphine Sulfate ER [Ms Contin] 30 mg PO TID 10/10/17 11/28/18 History Atorvastatin [Lipitor] 80 mg PO HS #30 tab 10/12/17 11/28/18 Rx Prasugrel [Effient] 10 mg PO DAILY #30 tab 10/12/17 11/28/18 Rx Lisinopril [Zestril] 5 mg PO HS #30 tab 10/13/17 11/28/18 Rx tiZANidine [Zanaflex] 4 mg PO BID PRN 02/26/18 11/28/18 History Ondansetron [Zofran ODT] 4 mg PO Q8HR PRN #10 tab 07/02/18 11/28/18 Rx oxyCODONE HCL 15 mg PO TID PRN 08/01/18 11/28/18 History Allergies Allergy/AdvReac Type Severity Reaction Status Date / Time ibuprofen [From Motrin] Allergy Rash/Hives Verified 11/28/18 18:39 ketorolac tromethamine Allergy Rash/Hives Verified 11/28/18 18:39 [From Toradol] Physical Exam Vitals: Vital Signs Temp Pulse Resp BP Pulse Ox 11/28/18 21:00 81 18 165/85 97 01/06/19 18:27 98.0 F 82 20 185/129 98 Intake and Output 11/28/18 11/28/18 11/28/18 06:59 14:59 22:59 Other: Weight 78.471 kg General: [non toxic], [no distress], [appears at stated age], [normal weight] Derm: [no unusual rashes/lesions] [no unusual ecchymoses], [warm], [dry] Head: [atraumatic], [normocephalic], [symmetric] Eyes: [EOMI], [no lid lag], [anicteric sclera], [pupils equal round reactive to light] ENT: [Nose and ears atraumatic], [no thrush], [no pharyngeal erythema] Neck: [No thyromegaly], [no cervical lymphadenopathy], [trachea midline], [ supple] Mouth: [no lip lesion], [mucus membranes moist] Cardiovascular: [S1S2 reg], [no murmur], [positive posterior tibial pulse bilateral], [no edema], [capillary refill less than 2 seconds] Lungs: [CTA bilateral], [no rhonchi, no rales] , [no accessory muscle use] Abdominal: [soft], [ mild epigastric tenderness], [no guarding], [no appreciable organomegaly], [normal bowel sounds] Ext: [no gross muscle atrophy], [muscle strength 4 out of 5 in all 4 extremities grossly], [no contractures], lumbar midline post-surgical scarring, mild spinal tenderness Neuro: [CN II-XI grossly intact], [light touch intact all 4 extremities], [ finger to nose within normal limits], Psych: [Alert], [oriented], [appropriate affect] Results CBC & Chem 7: 11/28/18 19:19 11/28/18 19:19 Labs: Abnormal Lab Results - Last 24 Hours (Table) 11/28/18 11/28/18 Range/Units 19: 19:19 Hgb 12.8 L (13.0-17.5) gm/dL MCHC 30.6 L (31.0-37.0) g/dL RDW 16.6 H (11.5-15.5) % Chloride 110 H (98-107) mmol/L BUN 4 L (9-20) mg/dL Creatinine 0.64 L (0.66-1.25) mg/dL Glucose 100 H (74-99) mg/dL ALT 17 L (21-72) U/L Assessment and Plan Plan: Unstable angina -Discussed risks vs benefits of anticoagulation with patient in light of antiplatelet therapy for suspected unstable angina. Patient verbalized understanding of the risks and wishes to move forward w/ Heparin infusion. -Cardiology consult -Trend Troponin and EKG -Telemetry monitoring -Aspirin, Effient, Coreg, Lipitor -Nitro paste -Zofran prn HTN -Resume home meds: Coreg, Lisinopril HLD -C/w home med Lipitor Chronic lower back pain -Resume home meds: Morphine and Oxycodone DVT//GI prophylaxis -Heparin infusion -Protonix The patient is placed in observation with an anticipated less than 2 midnight stay for evaluation of chest pain. CODE STATUS: Full code Discussed with: Patient Anticipated discharge date: 11/30/[address]: Home A total of 60 minutes was spent on the care of this complex patient more than 50 % of the time was spent in counseling and care coordination.
[2018-11-29 02:32] LABS: Creatine Kinase 54 U/L (55-170)
[2018-11-29 02:45] LABS: Creatine Kinase MB 0.4 ng/mL (0.0-2.4); Troponin I <0.012 ng/mL (0.000-0.034)
[2018-11-29] MEDS ORDERED: ONDANSETRON 4 MG/2 ML VIAL IVP STA (03:34)
[2018-11-29 06:59] LABS: Anisocytosis Slight; Basophils % (A) 1 %; Eosinophils # (A) 0.1 k/uL (0-0.7); Eosinophils % (A) 2 %; HGB 12.4 gm/dL (13.0-17.5); Lymphocytes # (A) 1.3 k/uL (1.0-4.8); Lymphocytes % (A) 34 %; MCH 26.7 pg (25.0-35.0); MCHC 30.2 g/dL (31.0-37.0); MCV 88.5 fL (80.0-100.0); Mean Platelet Volume 6.1; Monocytes # (A) 0.2 k/uL (0-1.0); Monocytes % (A) 5 %; Neutrophils # (A) 2.1 k/uL (1.3-7.7); Neutrophils % (A) 56 %; Platelet Count 402 k/uL (150-450); RBC 4.64 m/uL (4.30-5.90); RDW 16.7 % (11.5-15.5); WBC 3.8 k/uL (3.8-10.6)
[2018-11-29 07:09] LABS: Cholesterol 174 mg/dL (<200); HDL Cholesterol 56 mg/dL (40-60); LDL Cholesterol,Calculated 104 mg/dL (0-99); Triglycerides 70 mg/dL (<150)
[2018-11-29 07:21] LABS: Creatine Kinase 46 U/L (55-170)
[2018-11-29 07:32] LABS: Creatine Kinase MB 0.4 ng/mL (0.0-2.4); Troponin I <0.012 ng/mL (0.000-0.034)
[2018-11-29] MEDS: NITROGLYCERIN OINT 1 INCH/GM PACKET TOPICAL SCH ×5 (08:57→21:24)
[2018-11-29] MEDS: PRASUGREL 10 MG TAB PO SCH (08:57)
[2018-11-29] MEDS: CARVEDILOL 12.5 MG TAB PO SCH ×2 (08:57→17:38)
[2018-11-29] MEDS: ASPIRIN 81 MG PO SCH (08:57)
[2018-11-29] MEDS: MORPHINE SULFATE ER 30 MG TABLET PO SCH ×3 (08:58→23:05)
[2018-11-29] MEDS ORDERED: ASPIRIN 325 MG TAB PO SCH (09:00)
[2018-11-29] MEDS ORDERED: PANTOPRAZOLE 40 MG TABLET PO STA (11:29)
[2018-11-29] MEDS: LISINOPRIL 5 MG TAB PO SCH (12:39)
--- NOTE | 2018-11-29 12:46 | P.CRDCN ---
History of Present Illness History of present illness: This is a pleasant 63-year-old male past medical history significant for coronary artery disease s/p angioplasty to the LAD and diagonal branch, hypertension, dyslipidemia and gastroesophageal reflux disease. He follows with a slate roofer helper out of [facility]. We have been asked to see him in consultation for symptoms of chest pain. He states yesterday around 11:00 he had an acute onset of extreme epigastric pain and tenderness with associated nausea, vomiting and diarrhea. After vomiting multiple times he started developing a heavy pressure sensation in his chest in the midsternal region. The discomfort is described as a heavy pressure like somebody is sitting on his chest. The pain in his chest has been constant since 11:30 yesterday. He also describes feelings of shortness of breath, dizziness and palpitations. There is no specific aggravating or alleviating factor. He has tenderness to the epigastric region on palpation. He states he is continuing to vomit throughout the night. EKG reveals sinus mechanism with no acute ST or T wave abnormalities noted. Chest x-ray is negative for an acute cardiopulmonary process. Laboratory data reviewed, WBC 3.8, hemoglobin 12.4, platelets 402, sodium 142, potassium 4.5, creatinine 0.64, magnesium 2.0, cardiac enzymes negative 3, LDL 104, HDL 56. Current cardiac medications include aspirin 81 mg daily, atorvastatin 80 mg daily, carvedilol 25 mg twice a day, lisinopril 5 mg daily and Effient 10 mg daily. Most recent stress test performed April 2018 with a dobutamine stress echocardiogram was negative for stress-induced cardiac ischemia. Most recent echocardiogram obtained April 2018 reveals preserved left ventricular systolic function with ejection fraction 50-55%, mild MR and mild TR noted. Most recent cardiac catheterization performed October 2017 reveals stenting of the LAD widely patent, stenting to the diagonal widely patent, 70% stenosis noted to the inferior diagonal branch unchanged from prior catheterization, left main no significant disease, right coronary artery disease minor irregularities with no obstructive disease. At the time of my exam: CONSTITUTIONAL: Denies fever. Denies chills. EYES: Denies blurred vision. Denies vision changes. Denies eye pain. EARS, NOSE, MOUTH & THROAT: Denies headache. Denies sore throat. Denies ear pain. CARDIOVASCULAR: Complains of chest pain. Denies shortness of breath. Denies orthopnea. Denies PND. Denies palpitations. RESPIRATORY: Denies cough. GASTROINTESTINAL: Complains of epigastric/abdominal pain. Denies diarrhea. Denies constipation. Complains of constant nausea and vomiting. MUSCULOSKELETAL: Denies myalgias. INTEGUMENTARY: Denies pruitis. Denies rash. NEUROLOGIC: Denies numbness. Denies tingling. Denies weakness. PSYCHIATRIC: Denies anxiety. Denies depression. ENDOCRINE: Denies fatigue. Denies weight change. Denies polydipsia. Denies polyurina. GENITOURINARY: Denies burning, hematuria or urgency with micturation. HEMATOLOGIC: Denies history of anemia. Denies bleeding. Blood pressure 176/111 heart rate 67 afebrile maintaining oxygen saturation on room air GENERAL: This is a 63-year-old -[place] male in no apparent distress at the time of my examination. HEENT: Head is atraumatic, normocephalic. Pupils are equal, round. Sclerae anicteric. Conjunctivae are clear. Mucous membranes of the mouth are moist. Neck is supple. There is no jugular venous distention. No carotid bruit is heard. LUNGS: Clear to auscultation no wheezes, rales or rhonchi. No chest wall tenderness is noted on palpation or with deep breathing. HEART: Regular rate and rhythm without murmurs, rubs or gallops. S1 and S2 heard. ABDOMEN: Soft, nontender. Bowel sounds are heard. No organomegaly noted. EXTREMITIES: No evidence of peripheral edema and no calf tenderness noted. VASCULAR: Radial and dorsalis pedis pulses palpated, no evidence of clubbing. NEUROLOGIC: Patient is awake, alert and oriented x3. ASSESSMENT Acute gastritis Chest pain, atypical for angina. An acute event has been ruled out. Recent stress test normal 04/2018 History of coronary artery disease s/p angioplasty 2017 Hypertension Dyslipidemia PLAN An acute coronary event has been ruled out with no EKG evidence of ischemia and negative cardiac enzymes. Discontinue heparin infusion. Given dose of protonix 40 mg daily x1 now. Stable from a cardiac perspective. Follow up with his primary slate roofer helper upon discharge. Thank you kindly for this consultation. Nurse Practitioner note has been reviewed, I agree with a documented findings and plan of care. Patient was seen and examined. Past Medical History Past Medical History: Coronary Artery Disease (CAD), Chest Pain / Angina, Deep Vein Thrombosis (DVT), GERD/Reflux, Hyperlipidemia, Hypertension Additional Past Medical History / Comment(s): 11/24/17 EGD/colonoscopy which pt states showed, gastritis, small hiatal hernia and diverticular dx, pt states years ago he had PUD, chronic low back pain, chronic pain syndrome, migraines, PVD, DVT L arm, numbness/tingling bilateral lower legs, bilateral past hand fractures History of Any Multi-Drug Resistant Organisms: None Reported Past Surgical History: Back Surgery, Heart Catheterization With Stent, Orthopedic Surgery Additional Past Surgical History / Comment(s): EGDs/colonoscopies with last time being 11/24/17, multiple low back surgeries, bilateral arm and bilateral thigh surgeries for brown recluse spider bites with infection, morphine pain pump insertion and removal due to infection, PCI with stents, L rotator cuff repair, L knee arthroscopy, R cataract removal. Past Anesthesia/Blood Transfusion Reactions: No Reported Reaction Additional Past Anesthesia/Blood Transfusion Reaction / Comment(s): Pt recieved blood after back surgery and tolerated it well. Date of Last Stent Placement:: 10/11/17 Past Psychological History: No Psychological Hx Reported Smoking Status: Former smoker Past Alcohol Use History: None Reported Past Drug Use History: None Reported - Past Family History Father Additional Family Medical History / Comment(s): Father had back problems. He lived to be 82 yrs old. Mother Family Medical History: Hypertension, Myocardial Infarction (PA) Additional Family Medical History / Comment(s): Mother of a PA at the age of 55yrs. Brother(s) Family Medical History: Cancer Additional Family Medical History / Comment(s): Leukemia Medications and Allergies Home Medications Medication Instructions Recorded Confirmed Type Aspirin 81 mg PO DAILY 01/21/17 11/28/18 History Carvedilol 25 mg PO BID 01/21/17 11/28/18 History Fluticasone Nasal [place] [Flonase 1 spray EA NOSTRIL BID 04/20/17 11/28/18 History Nasal [place]] Morphine Sulfate ER [Ms Contin] 30 mg PO TID 10/10/17 11/28/18 History Atorvastatin [Lipitor] 80 mg PO HS #30 tab 10/12/17 11/28/18 Rx Prasugrel [Effient] 10 mg PO DAILY #30 tab 10/12/17 11/28/18 Rx Lisinopril [Zestril] 5 mg PO HS #30 tab 10/13/17 11/28/18 Rx tiZANidine [Zanaflex] 4 mg PO BID PRN 02/26/18 11/28/18 History Ondansetron [Zofran ODT] 4 mg PO Q8HR PRN #10 tab 07/02/18 11/28/18 Rx oxyCODONE HCL 15 mg PO TID PRN 08/01/18 11/28/18 History Allergies Allergy/AdvReac Type Severity Reaction Status Date / Time ibuprofen [From Motrin] Allergy Rash/Hives Verified 11/28/18 18:39 ketorolac tromethamine Allergy Rash/Hives Verified 11/28/18 18:39 [From Toradol] Physical Exam Vitals: Vital Signs Temp Pulse Resp BP Pulse Ox 11/29/18 08:30 67 18 176/111 98 11/29/18 07:37 98.1 F 11/29/18 07:30 71 16 145/106 99 11/29/18 05:00 98.3 F 77 18 168/88 97 11/29/18 04:00 97 18 160/92 97 11/29/18 03:00 89 18 156/90 98 11/28/18 21:00 81 18 165/85 97 11/28/18 18:27 98.0 F 82 20 185/129 98 Intake and Output 11/28/18 11/29/18 11/29/18 22:59 06:59 14:59 Other: Weight 78.471 kg Results 11/29/18 06:17 11/28/18 19:19 Cardiac Enzymes 11/28/18 11/28/18 11/29/18 Range/Units 19:19 19:19 01:54 AST 18 (17-59) U/L CK-MB (CK-2) 0.5 0.4 (0.0-2.4) ng/mL Troponin I <0.012 <0.012 (0.000-0.034) ng/mL 11/29/18 Range/Units 06:17 AST (17-59) U/L CK-MB (CK-2) 0.4 (0.0-2.4) ng/mL Troponin I <0.012 (0.000-0.034) ng/mL Coagulation 11/28/18 11/29/18 Range/Units 19:19 06:17 PT 10.9 (9.0-12.0) sec APTT 24.9 54.1 H (22.0-30.0) sec Lipids 11/29/18 Range/Units 06:17 Triglycerides 70 (<150) mg/dL Cholesterol 174 (<200) mg/dL HDL Cholesterol 56 (40-60) mg/dL CBC 11/28/18 11/29/18 Range/Units 19: 06:17 WBC 4.3 3.8 (3.8-10.6) k/uL RBC 4.76 4.64 (4.30-5.90) m/uL Hgb 12.8 L 12.4 L (13.0-17.5) gm/dL Hct 42.0 41.0 (39.0-53.0) % Plt Count 402 402 (150-450) k/uL Comprehensive Metabolic Panel 11/28/18 Range/Units 19:19 Sodium 142 (137-145) mmol/L Potassium 4.5 (3.5-5.1) mmol/L Chloride 110 H (98-107) mmol/L Carbon Dioxide 22 (22-30) mmol/L BUN 4 L (9-20) mg/dL Creatinine 0.64 L (0.66-1.25) mg/dL Glucose 100 H (74-99) mg/dL Calcium 9.8 (8.4-10.2) mg/dL AST 18 (17-59) U/L ALT 17 L (21-72) U/L Alkaline Phosphatase 86 (38-126) U/L Total Protein 7.6 (6.3-8.2) g/dL Albumin 4.5 (3.5-5.0) g/dL Current Medications Generic Name Dose Route Start Last Admin Trade Name Freq PRN Reason Stop Dose Admin Aspirin 81 mg 11/29/18 09:00 11/29/18 08:57 Aspirin PO 81 mg DAILY [facility] Administration Atorvastatin Calcium 80 mg 11/29/18 21:00 Lipitor PO HS [facility] Carvedilol 25 mg 11/29/18 07:30 11/29/18 08:57 Coreg PO 25 mg BID-W/MEALS [facility] Administration Heparin Sodium (Porcine) 0 unit 11/28/18 21:40 Heparin IV PER PROTOCOL PRN Low PTT Protocol Heparin Sodium/Sodium Chloride 250 mls @ 9.41 mls/hr 11/28/18 21:45 11/28/18 22:53 25,000 unit/ Sodium Chloride IV 12 units/kg/hr .Q24H YESICA 9.41 mls/hr Administration Protocol 12 UNITS/KG/HR Lisinopril 5 mg 11/29/18 21:00 Zestril PO HS YESICA Morphine Sulfate 30 mg 11/29/18 09:00 11/29/18 08:58 Ms Contin PO 30 mg TID [facility] Administration Nitroglycerin 1 inch 11/29/18 00:00 11/29/18 08:58 Nitro-Bid Oint TOPICAL 1 inch Q6HR [facility] Administration Nitroglycerin 0.4 mg 11/28/18 20:41 Nitrostat SUBLINGUAL Q5M PRN Chest Pain Oxycodone HCl 15 mg 11/28/18 21:51 11/29/18 02:42 Oxyir PO 15 mg TID PRN Administration Breakthrough Pain Prasugrel 10 mg 11/29/18 09:00 11/29/18 08:57 Effient PO 10 mg DAILY [facility] Administration Tizanidine HCl 4 mg 11/28/18 21:51 Zanaflex PO BID PRN Muscle Spasm Intake and Output 11/28/18 11/29/18 11/29/18 22:59 06:59 14:59 Other: Weight 78.471 kg 11/29/18 06:17 11/28/18 19:19
--- NOTE | 2018-11-29 13:36 | P.PN ---
Subjective Progress Note Date: 11/29/18 Principal diagnosis: Chest pain Patient seen and examined. No acute events overnight. Patient reports excruciating left stomach pain, nausea and vomiting. Reports multiple episodes of emesis overnight. Pain is 10 out of 10 in severity. Patient reports one of [facility], gets MS Contin 30 3 times a day and OxyContin 15 3 times a day when necessary. Objective - Vital Signs Vital signs: Vital Signs Temp 98.1 F 11/29/18 07:37 Pulse 85 11/29/18 10:04 Resp 18 11/29/18 10:04 BP 165/112 11/29/18 10:04 Pulse Ox 98 11/29/18 10:04 Intake & Output 11/28/18 11/29/18 11/29/18 18:59 06:59 18:59 Weight 78.471 kg - Exam General: [non toxic], [no distress], [appears at stated age] Derm: [warm], [dry] Head: [atraumatic], [normocephalic], [symmetric] Eyes: [EOMI], [no lid lag], [anicteric sclera] Mouth: [no lip lesion], [mucus membranes moist] Cardiovascular: [S1S2 reg], [no murmur], [positive DP pulse bilateral] Lungs: [CTA bilateral], [no rhonchi, no rales] , [no accessory muscle use] Abdominal: [soft], [epigastric tenderness with no rebound], [no guarding], [no appreciable organomegaly] Ext: [no gross muscle atrophy], [no edema], [no contractures] Neuro: [no focal neuro deficits] Psych: [Alert], [oriented], [appropriate affect] - Labs CBC & Chem 7: 11/29/18 06:17 11/28/18 19:19 Labs: Abnormal Lab Results - Last 24 Hours (Table) 11/28/18 11/28/18 11/29/18 Range/Units 19:19 19:19 01:54 Hgb 12.8 L (13.0-17.5) gm/dL MCHC 30.6 L (31.0-37.0) g/dL RDW 16.6 H (11.5-15.5) % APTT (22.0-30.0) sec Chloride 110 H (98-107) mmol/L BUN 4 L (9-20) mg/dL Creatinine 0.64 L (0.66-1.25) mg/dL Glucose 100 H (74-99) mg/dL ALT 17 L (21-72) U/L Total Creatine Kinase 54 L (55-170) U/L LDL Cholesterol, Calc (0-99) mg/dL 11/29/18 11/29/18 11/29/18 Range/Units 06:17 06:17 06:17 Hgb (13.0-17.5) gm/dL MCHC (31.0-37.0) g/dL RDW (11.5-15.5) % APTT 54.1 H (22.0-30.0) sec Chloride (98-107) mmol/L BUN (9-20) mg/dL Creatinine (0.66-1.25) mg/dL Glucose (74-99) mg/dL ALT (21-72) U/L Total Creatine Kinase 46 L (55-170) U/L LDL Cholesterol, Calc 104 H (0-99) mg/dL 11/29/18 Range/Units 06:17 Hgb 12.4 L (13.0-17.5) gm/dL MCHC 30.2 L (31.0-37.0) g/dL RDW 16.7 H (11.5-15.5) % APTT (22.0-30.0) sec Chloride (98-107) mmol/L BUN (9-20) mg/dL Creatinine (0.66-1.25) mg/dL Glucose (74-99) mg/dL ALT (21-72) U/L Total Creatine Kinase (55-170) U/L LDL Cholesterol, Calc (0-99) mg/dL Assessment and Plan Assessment: Assessment and Plan 1. Unstable angina: Trop < 0.012 x 3, EKG showing NSR (less likely to be ACS). CXR is negative. Started on Heparin drip in the ED. Started ASA 81 mg PO QD, Lipitor 80 mg PO QHS. Start Coreg 25 mg PO BID and Lisinopril 5 mg PO QD. Telemetry monitoring. FU Cardiology recommendations. 2. Hypertension: BP 165/112. Probably partially related to pain. Continue Coreg 25 mg PO BID and add Lisinopril 5 mg PO QD. Monitor vitals, adjust medications as necessary. 3. Hyperlipidemia: Lipid panel shows elevated LDL at 101. Continue Lipitor 80 mg PO QHS. 4. Chronic LBP: Pain control with MS Contin 30 mg PO TID, Oxycodone 15 mg PO TID PRN, Tizamidine 4 mg PO BID PRN. Pain appears to be noncardiac in nature. Rather GI nature, ulcer versus gastritis. Will DC heparin drip. Consult gastroenterology. Protonix IV, adequate pain control.
[2018-11-29] MEDS: HYDROmorphone 1 MG/ML 1 ML SYRINGE IVP PRN ×2 (14:39→20:52)
[2018-11-29] MEDS: ATORVASTATIN 80 MG TAB PO SCH (20:53)
[2018-11-29] MEDS ORDERED: LISINOPRIL 5 MG TAB PO SCH (21:00)
[2018-11-30] MEDS: NITROGLYCERIN OINT 1 INCH/GM PACKET TOPICAL SCH ×3 (01:16→21:30)
[2018-11-30] MEDS: HYDROmorphone 1 MG/ML 1 ML SYRINGE IVP PRN ×4 (02:50→20:32)
[2018-11-30 07:17] LABS: Anisocytosis Slight; Basophils % (A) 1 %; Eosinophils # (A) 0.1 k/uL (0-0.7); Eosinophils % (A) 2 %; HCT 39.5 % (39.0-53.0); HGB 12.9 gm/dL (13.0-17.5); Lymphocytes # (A) 0.9 k/uL (1.0-4.8); Lymphocytes % (A) 23 %; MCH 28.2 pg (25.0-35.0); MCHC 32.6 g/dL (31.0-37.0); MCV 86.6 fL (80.0-100.0); Mean Platelet Volume 6.2; Monocytes # (A) 0.2 k/uL (0-1.0); Monocytes % (A) 6 %; Neutrophils # (A) 2.6 k/uL (1.3-7.7); Neutrophils % (A) 67 %; Platelet Count 358 k/uL (150-450); RBC 4.56 m/uL (4.30-5.90); RDW 16.7 % (11.5-15.5); WBC 3.9 k/uL (3.8-10.6)
[2018-11-30] MEDS: PANTOPRAZOLE 40 MG/10 ML VIAL IVP SCH (08:26)
--- NOTE | 2018-11-30 09:32 | US ---
EXAMINATION TYPE: US abdomen complete DATE OF EXAM: 11/30/2018 COMPARISON: NONE CLINICAL HISTORY: LUQ pain, spleen, stomach, gallbladder, pancreas. Vomiting, abd pain, cholecystecto my EXAM MEASUREMENTS: Liver Length: 14.2 cm Gallbladder Wall: Surgically absent CBD: 0.9 cm Spleen: 10.0 cm Right Kidney: 9.8 x 4.4 x 4.4 cm Left Kidney: 9.8 x 3.9 x 4.8 cm Pancreas: wnl Liver: 0.8cm cyst seen anterior right lobe and there is some mildly prominent intrahepatic biliary ducts Gallbladder: Surgically absent Evidence for sonographic Lizarraga's sign: yes CBD: dilated with no obvious obstruction seen Spleen: very limited views due to gas Right Kidney: wnl Left Kidney: limited views due to bowel gas and rib shadowing Upper IVC: wnl Abd Aorta: wnl There is no ascites. IMPRESSION: Probable post cholecystectomy changes. Positive sonographic Lizarraga's sign. Exam is limite d.
--- NOTE | 2018-11-30 10:22 | P.PN ---
Subjective Progress Note Date: 11/30/18 Principal diagnosis: Gastritis Patient seen and examined. No acute events overnight. Patient seen this morning crawled up in a ball, moaning in pain. Patient reports continuation of epigastric pain, 10 out of 10 in severity. Pain is nonradiating. Patient also reports multiple episodes of nausea and vomiting, unable to tolerate any clear liquids. As per nurse's aide, emesis observed. Patient reports a history of cholecystectomy years back by Dr. Braov. He denies any chest pain, shortness of breath or palpitations. Objective - Vital Signs Vital signs: Vital Signs Temp 98.4 F 11/30/18 07:35 Pulse 90 11/30/18 07:35 Resp 18 11/30/18 07:35 BP 118/85 11/30/18 07:35 Pulse Ox 98 11/30/18 07:35 Intake & Output 11/29/18 11/30/18 11/30/18 18:59 06:59 18:59 Intake Total 120 Balance 120 Weight 78.471 kg Intake: Oral 120 Other: Voiding Method Toilet Toilet # Voids 2 # Emeses 1 - Exam General: [non toxic], [in acute distress], [appears at stated age] Derm: [warm], [dry] Head: [atraumatic], [normocephalic], [symmetric] Eyes: [EOMI], [no lid lag], [anicteric sclera] Mouth: [no lip lesion], [mucus membranes moist] Cardiovascular: [S1S2 reg], [no murmur], [positive DP pulse bilateral] Lungs: [CTA bilateral], [no rhonchi, no rales] , [no accessory muscle use] Abdominal: [soft], [epigastric tenderness to palpation without rebound], [no guarding], [no appreciable organomegaly], [positive Lizarraga] Ext: [no gross muscle atrophy], [no edema], [no contractures] Neuro: [no focal neuro deficits] Psych: [Alert], [oriented], [appropriate affect] - Labs CBC & Chem 7: 11/30/18 06:36 11/28/18 19:19 Labs: Abnormal Lab Results - Last 24 Hours (Table) 11/30/18 Range/Units 06:36 Hgb 12.9 L (13.0-17.5) gm/dL RDW 16.7 H (11.5-15.5) % Lymphocytes # 0.9 L (1.0-4.8) k/uL Assessment and Plan Assessment: Assessment and Plan 1. Epigastric pain: Epigastric tenderness, + [place]. Patient is afebrile with no leukocytosis with LFTs within normal limits. Abdominal US shows post cholecystectomy changes. Pain control with MS Contin, Oxycodone, Tizanidine and Dilaudid 1 mg IV Q6H PRN. Protonix 40 mg IV QD. Maalox 30 ml PO QID. CLD and advance. Will consult GI for further recommendations. 2. Chest pain: Trop < 0.012 x 3, EKG showing NSR (less likely to be ACS). CXR is negative. Started on Heparin drip in the ED, DC'd yesterday. Continue ASA 81 mg PO QD, Lipitor 80 mg PO QHS, Coreg 25 mg PO BID and Lisinopril 5 mg PO QD. Telemetry monitoring. FU Cardiology recommendations. 3. Hypertension: BP 118/85. Probably partially related to pain. Continue Coreg 25 mg PO BID and Lisinopril 5 mg PO QD. Monitor vitals, adjust medications as necessary. 4. Hyperlipidemia: Lipid panel shows elevated LDL at 101. Continue Lipitor 80 mg PO QHS. 5. Chronic LBP: Pain control with MS Contin 30 mg PO TID, Oxycodone 15 mg PO TID PRN, Tizanidine 4 mg PO BID PRN. Dilaudid 1 mg IV Q6H PRN. Pain is noncardiac in nature, ulcer versus gastritis. Protonix IV, adequate pain control. Diet at tolerated. Follow GI recommendations
[2018-11-30 10:48] LABS: ALT 16 U/L (21-72); AST 14 U/L (17-59); Albumin 4.1 g/dL (3.5-5.0); Alkaline Phosphatase 73 U/L (38-126); Anion Gap 11 mmol/L; Blood Urea Nitrogen 10 mg/dL (9-20); Calcium 9.5 mg/dL (8.4-10.2); Carbon Dioxide 20 mmol/L (22-30); Chloride 107 mmol/L (98-107); Glucose 96 mg/dL (74-99); Lipase 25 U/L (23-300); Potassium 4.4 mmol/L (3.5-5.1); Sodium 138 mmol/L (137-145); Total Bilirubin 0.7 mg/dL (0.2-1.3); Total Protein 6.7 g/dL (6.3-8.2)
[2018-11-30 14:19] VITALS: BMI 24.1
[2018-11-30] MEDS: ONDANSETRON 4 MG/2 ML VIAL IVP PRN ×2 (14:19→20:32)
[2018-11-30] MEDS: ASPIRIN 81 MG PO SCH (15:37)
[2018-11-30] MEDS: CARVEDILOL 12.5 MG TAB PO SCH ×2 (15:37→15:41)
[2018-11-30] MEDS: MAG HYDROX/AL HYDROX/SIMETH 30 ML CUP PO SCH ×4 (15:37→21:30)
[2018-11-30] MEDS: MORPHINE SULFATE ER 30 MG TABLET PO SCH ×3 (15:38→22:55)
[2018-11-30] MEDS: PRASUGREL 10 MG TAB PO SCH (15:40)
[2018-11-30] MEDS: LISINOPRIL 5 MG TAB PO SCH (15:40)
[2018-11-30] MEDS: SODIUM CHLORIDE 0.9% 1,000 ML IV SCH (15:56)
[2018-11-30] MEDS: ATORVASTATIN 80 MG TAB PO SCH (21:30)
[2018-12-01] MEDS ORDERED: ONDANSETRON 4 MG/2 ML VIAL ONE (04:25)
[2018-12-01] MEDS ORDERED: HYDROmorphone 1 MG/ML 1 ML SYRINGE ONE (04:25)
[2018-12-01] MEDS: NITROGLYCERIN OINT 1 INCH/GM PACKET TOPICAL SCH ×3 (05:21→18:18)
[2018-12-01 08:15] LABS: Anisocytosis Slight; Basophils % (A) 0 %; Eosinophils # (A) 0.1 k/uL (0-0.7); Eosinophils % (A) 2 %; HCT 39.2 % (39.0-53.0); HGB 12.8 gm/dL (13.0-17.5); Lymphocytes % (A) 26 %; MCH 28.9 pg (25.0-35.0); MCHC 32.7 g/dL (31.0-37.0); MCV 88.2 fL (80.0-100.0); Mean Platelet Volume 6.3; Monocytes # (A) 0.3 k/uL (0-1.0); Monocytes % (A) 7 %; Neutrophils # (A) 2.5 k/uL (1.3-7.7); Neutrophils % (A) 63 %; Platelet Count 356 k/uL (150-450); RBC 4.45 m/uL (4.30-5.90); RDW 16.6 % (11.5-15.5)
[2018-12-01] MEDS: HYDROmorphone 1 MG/ML 1 ML SYRINGE IVP PRN ×3 (08:15→20:43)
[2018-12-01] MEDS: ONDANSETRON 4 MG/2 ML VIAL IVP PRN ×3 (08:17→20:43)
[2018-12-01] MEDS: PANTOPRAZOLE 40 MG/10 ML VIAL IVP SCH (09:35)
[2018-12-01] MEDS: PRASUGREL 10 MG TAB PO SCH (09:35)
[2018-12-01] MEDS: ASPIRIN 81 MG PO SCH (09:35)
[2018-12-01] MEDS: LISINOPRIL 5 MG TAB PO SCH (09:35)
[2018-12-01] MEDS: MORPHINE SULFATE ER 30 MG TABLET PO SCH ×3 (09:35→22:29)
[2018-12-01] MEDS: CARVEDILOL 12.5 MG TAB PO SCH ×2 (09:35→18:27)
[2018-12-01] MEDS: MAG HYDROX/AL HYDROX/SIMETH 30 ML CUP PO SCH ×4 (09:36→20:43)
[2018-12-01] MEDS: SODIUM CHLORIDE 0.9% 1,000 ML IV SCH ×2 (09:37→18:28)
--- NOTE | 2018-12-01 11:04 | P.PN ---
Subjective Progress Note Date: 12/01/18 Principal diagnosis: Epigastric pain Patient seen and examined. No acute events overnight. Patient continues to report abdominal pain, unchanged since admission. Pain is 10 out of 10 in severity. Pain is left upper quadrant and epigastric region. Pain is associated with multiple episodes of bilious vomiting. Patient also reports some dark red/black stools over the last day or so. He denies any chest pain, shortness of breath or palpitations. Objective - Vital Signs Vital signs: Vital Signs Temp 98.3 F 12/01/18 07:35 Pulse 97 12/01/18 07:35 Resp 18 12/01/18 07:35 BP 151/82 12/01/18 07:35 Pulse Ox 98 12/01/18 07:35 Intake & Output 11/30/18 12/01/18 12/01/18 18:59 06:59 18:59 Intake Total 120 Output Total 50 Balance 120 -50 Weight 78.471 kg Intake: Oral 120 Output: Emesis 50 Other: Voiding Method Toilet Toilet Toilet # Voids 1 2 # Emeses 1 - Exam General: [non toxic], [in acute distress], [appears at stated age] Derm: [warm], [dry] Head: [atraumatic], [normocephalic], [symmetric] Eyes: [EOMI], [no lid lag], [anicteric sclera] Mouth: [no lip lesion], [mucus membranes moist] Cardiovascular: [S1S2 reg], [no murmur], [positive DP pulse bilateral] Lungs: [CTA bilateral], [no rhonchi, no rales] , [no accessory muscle use] Abdominal: [soft], [epigastric tenderness to palpation without rebound], [no guarding], [no appreciable organomegaly], [positive Lizarraga] Ext: [no gross muscle atrophy], [no edema], [no contractures] Neuro: [no focal neuro deficits] Psych: [Alert], [oriented], [appropriate affect] - Labs CBC & Chem 7: 12/01/18 07:37 11/30/18 06:36 Labs: Abnormal Lab Results - Last 24 Hours (Table) 12/01/18 Range/Units 07:37 Hgb 12.8 L (13.0-17.5) gm/dL RDW 16.6 H (11.5-15.5) % Assessment and Plan Assessment: Assessment and Plan 1. Epigastric pain: Epigastric tenderness, + [place]. Patient is afebrile with no leukocytosis with LFTs within normal limits. Abdominal US shows post cholecystectomy changes. Pain control with MS Contin, Oxycodone, Tizanidine and Dilaudid 1 mg IV Q6H PRN. Protonix 40 mg IV QD. Maalox 30 ml PO QID. Zofran IV PRN for N/V. CLD and advance. Discussed with MITCHEL Head from GI, will obtain KUB and possible EGD. FU Gastroenterology 2. Chest pain: Trop < 0.012 x 3, EKG showing NSR (less likely to be ACS). CXR is negative. Started on Heparin drip in the ED, discontinued. Continue ASA 81 mg PO QD, Lipitor 80 mg PO QHS, Coreg 25 mg PO BID and Lisinopril 5 mg PO QD. Telemetry monitoring. FU Cardiology recommendations. 3. Hypertension: BP 151/82. Probably partially related to pain. Continue Coreg 25 mg PO BID and Lisinopril 5 mg PO QD. Monitor vitals, adjust medications as necessary. 4. Hyperlipidemia: Lipid panel shows elevated LDL at 101. Continue Lipitor 80 mg PO QHS. 5. Chronic LBP: Pain control with MS Contin 30 mg PO TID, Oxycodone 15 mg PO TID PRN, Tizanidine 4 mg PO BID PRN. Dilaudid 1 mg IV Q6H PRN. Pain is noncardiac in nature, ulcer versus gastritis. Protonix IV, adequate pain control. Diet at tolerated. Follow GI recommendations
--- NOTE | 2018-12-01 11:31 | XR ---
EXAMINATION TYPE: XR abdomen complete w decub DATE OF EXAM: 12/01/2018 COMPARISON: NONE HISTORY: Pain TECHNIQUE: Supine, upright, and left side down lateral decubitus views of the abdomen are obtained. FINDINGS: Postsurgical changes are noted involving the vertebral, and right upper quadrant. Lung base s clear. Bowel gas pattern nonspecific. Arthropathy of the hips. Diffuse osteopenia noted. IMPRESSION: Nonspecific abdomen. Correlate with CT scan as clinically warranted.
--- NOTE | 2018-12-01 12:30 | P.CONS ---
History of Present Illness - Reason for Consult Consult date: 12/01/18 epigastric pain Requesting physician: Nazario Arreola - Chief Complaint epigastric chest pain - History of Present Illness 63-year-old gentleman with a past medical history of cholecystectomy, CAD PCI maintained on dual antiplatelet therapy, hypertension, GERD, dyslipidemia admitted with severe epigastric chest pain 3 days. Multiple bilious emesis. Denies hematemesis hematochezia fever or chills. No weight loss. EGD colonoscopy October 2017 for evaluation of chest pain and anemia with findings of small sliding hiatal hernia no obvious esophagitis or, clear to reflux disease. Minimal antral gastritis and mild sigmoid diverticulosis. Patient describes the pain as burning in the midepigastrium radiating up his esophagus. Home medications do not include H2 antagonist or PPI therapy. No excessive usage of NSAIDs alcohol or aspirin. Abdominal x-rays reported no evidence of obstruction. White count 4. Hemoglobin 12.8. Platelet 356. BUN 10. LFTs unremarkable. Lipase 25. Creatinine 0.5. Review of Systems Constitutional: Denies fever, chills, sweats, weight gain, or loss. HEENT: Negative for migraines, blurred vision or loss, earaches, drainage, tinnitus, oral mucosal lesions, dysphagia, or odynophagia. Cardiac: Midepigastric chest pain abdominal pain denies, arrhythmias, or palpitation. Respiratory: Negative for shortness of breath, hemoptysis, cough, or sputum production. Gastrointestinal: See HPI for pertinent findings. Genitourinary: Negative for hematuria, urgency, frequency, polyuria, dysuria, or penile discharge. Musculoskeletal: Negative for muscle aches, swelling, arthritis, and arthralgias. Neurologic: Negative for stroke or TIA. Endocrine: Negative for thyroid problems. Skin: Negative for rash or itching. Psychiatric: Negative history for depression and anxiety Past Medical History Past Medical History: Coronary Artery Disease (CAD), Chest Pain / Angina, Deep Vein Thrombosis (DVT), GERD/Reflux, Hyperlipidemia, Hypertension, Osteoarthritis (OA), Thyroid Disorder Additional Past Medical History / Comment(s): 11/24/17 EGD/colonoscopy which pt states showed, gastritis, small hiatal hernia and diverticular dx, pt states years ago he had PUD, chronic low back pain, chronic pain syndrome, migraines, DVT L arm, numbness/tingling bilateral lower legs, bilateral past R hand fracture, arthritis multiple joints, hyperthyroid, sinus problems. History of Any Multi-Drug Resistant Organisms: None Reported Past Surgical History: Back Surgery, Cholecystectomy, Heart Catheterization With Stent, Orthopedic Surgery Additional Past Surgical History / Comment(s): EGDs/colonoscopies with last time being 11/24/17, multiple low back surgeries, bilateral arm and bilateral thigh surgeries for brown recluse spider bites with infection, morphine pain pump insertion and removal due to infection, PCI with stents, L rotator cuff repair, L knee arthroscopy, cervical fusion/cage, R cataract removal. Past Anesthesia/Blood Transfusion Reactions: No Reported Reaction Additional Past Anesthesia/Blood Transfusion Reaction / Comm: Pt states after cervical fusion he "" in the recovery room but does not know cause- he was "gone for 8 minutes" and states he was resusitated. Pt recieved blood after back surgery and tolerated it well. Date of Last Stent Placement:: 10/11/17 Smoking Status: Former smoker - Past Family History Father Additional Family Medical History / Comment(s): Father had back problems. He lived to be 82 yrs old. Mother Family Medical History: Hypertension, Myocardial Infarction ([place]) Additional Family Medical History / Comment(s): Mother of a [place] at the age of 55yrs. Brother(s) Family Medical History: Cancer Additional Family Medical History / Comment(s): Leukemia Medications and Allergies Home Medications Medication Instructions Recorded Confirmed Type Aspirin 81 mg PO DAILY 01/21/17 11/28/18 History Carvedilol 25 mg PO BID 01/21/17 11/28/18 History Fluticasone Nasal [place] [Flonase 1 spray EA NOSTRIL BID 04/20/17 11/28/18 History Nasal [place]] Morphine Sulfate ER [Ms Contin] 30 mg PO TID 10/10/17 11/28/18 History Atorvastatin [Lipitor] 80 mg PO HS #30 tab 10/12/17 11/28/18 Rx Prasugrel [Effient] 10 mg PO DAILY #30 tab 10/12/17 11/28/18 Rx Lisinopril [Zestril] 5 mg PO HS #30 tab 10/13/17 11/28/18 Rx tiZANidine [Zanaflex] 4 mg PO BID PRN 02/26/18 11/28/18 History Ondansetron [Zofran ODT] 4 mg PO Q8HR PRN #10 tab 07/02/18 11/28/18 Rx oxyCODONE HCL 15 mg PO TID PRN 08/01/18 11/28/18 History Allergies Allergy/AdvReac Type Severity Reaction Status Date / Time ibuprofen [From Motrin] Allergy Rash/Hives Verified 11/28/18 18:39 ketorolac tromethamine Allergy Rash/Hives Verified 11/28/18 18:39 [From Toradol] Physical Exam Vitals: Vital Signs Temp Pulse Resp BP Pulse Ox 12/01/18 12:00 97.9 F 88 18 163/99 98 12/01/18 07:35 98.3 F 97 18 151/82 98 12/01/18 04:00 98.3 F 89 18 152/89 97 12/01/18 00:00 98.1 F 84 18 143/73 98 11/30/18 20:00 98.7 F 94 18 124/79 99 11/30/18 15:57 98.5 F 95 18 154/93 98 Intake and Output 11/30/18 12/01/18 12/01/18 22:59 06:59 14:59 Output Total 50 Balance -50 Output: Emesis 50 Other: Voiding Method Toilet Toilet Toilet # Voids 1 2 # Emeses 1 General appearance: The patient is alert, oriented, in no acute distress. HET: Head is normocephalic and atraumatic. Pupils are equal and reactive. Oropharynx is clear without lesions. Neck: Supple without lymphadenopathy. Trachea midline. Heart: S1 S2. Regular rate and rhythm. Lungs: No crackles or wheezes are heard. Abdomen: Soft, midepigastric tenderness, nondistended with bowel sounds. No peritoneal signs. No palpable organomegaly or masses. Extremities: Normal skin color and turgor. No cyanosis, rash, ulceration, clubbing, or edema. Radial and pedal pulses are 2/4 bilaterally. Neurological: No focal deficits. Strength and sensation are grossly intact. Results CBC & Chem 7: 12/01/18 07:37 11/30/18 06:36 Labs: Abnormal Lab Results - Last 24 Hours (Table) 12/01/18 Range/Units 07:37 Hgb 12.8 L (13.0-17.5) gm/dL RDW 16.6 H (11.5-15.5) % Abdominal x-ray: report reviewed (Dr. Rutherford) Assessment and Plan (1) Epigastric abdominal pain Narrative/Plan: 63-year-old male with a history of CAD maintained on dual antiplatelet therapy admitted with 3 day history of intractable nausea vomiting bilious emesis with severe epigastric burning chest pain possible esophagitis possible gastritis underlying peptic ulcer disease cannot be excluded. Current Visit: Yes Status: Acute Code(s): R10.13 - EPIGASTRIC PAIN SNOMED Code(s): 24136693 (2) Nausea & vomiting Current Visit: Yes Status: Acute Code(s): R11.2 - NAUSEA WITH VOMITING, UNSPECIFIED SNOMED Code(s): 37918387 (3) History of gastroesophageal reflux (GERD) Current Visit: Yes Status: Acute Code(s): Z87.19 - PERSONAL HISTORY OF OTHER DISEASES OF THE DIGESTIVE SYSTEM SNOMED Code(s): 33095124219227 (4) Chest pain Current Visit: Yes Status: Acute Code(s): R07.9 - CHEST PAIN, UNSPECIFIED SNOMED Code(s): 01921114 Plan: 1. Protonix 40 mg daily. EGD evaluation today. Further recommendations to follow after endoscopic findings. The bid writer has discussed the risks, benefits and alternative therapies for the above-mentioned procedure and for both sedation/analgesia as well as necessary blood product administration, if indicated, as they pertain to this patient. The patient has indicated understanding and acceptance of the risks and procedures discussed. Thank you for this kind referral and the opportunity to participate in the care of your patient. This consultation was discussed with Dr. Rutherford. The impression and plan of care have been directed as dictated.
[2018-12-01] MEDS ORDERED: PROPOFOL 10 MG/ML 20 ML VIAL IV ONE (13:23)
[2018-12-01] MEDS ORDERED: IV FLUID CONTINUATION 700 ML IV ONE (13:24)
--- NOTE | 2018-12-01 14:14 | P.PCN ---
Date of Procedure: 12/01/18 Description of Procedure: BRIEF HISTORY: 63-year-old gentleman with a past medical history of cholecystectomy, CAD PCI maintained on dual antiplatelet therapy, hypertension, GERD, dyslipidemia admitted with severe epigastric chest pain 3 days. Multiple bilious emesis. Denies hematemesis hematochezia fever or chills. No weight loss. EGD colonoscopy October 2017 for evaluation of chest pain and anemia with findings of small sliding hiatal hernia no obvious esophagitis or, clear to reflux disease. Minimal antral gastritis and mild sigmoid diverticulosis. Patient describes the pain as burning in the midepigastrium radiating up his esophagus. Home medications do not include H2 antagonist or PPI therapy. No excessive usage of NSAIDs alcohol or aspirin. PROCEDURE PERFORMED: Esophagogastroduodenoscopy. PREOPERATIVE DIAGNOSIS: Epigastric abdominal pain, nausea and vomiting. ESTIMATED BLOOD LOSS: Minimal. IV sedation per anesthesia. PROCEDURE: After informed consent was obtained, the patient was brought into the endoscopy unit. IV sedation was administered by Anesthesia under continuous monitoring. Initially the Olympus GIF-190 video endoscope was inserted into the mouth. Esophagus intubated without any difficulty. It was gradually advanced into the stomach and duodenum and carefully examined. The bulb and the second part of the duodenum appeared normal. The scope at this time was withdrawn to the stomach, adequately insufflated with air, and upon careful examination, mucosa of the antrum, body, cardia and the fundus appeared grossly normal, with mild scattered erythema in the antrum and body suggestive of gastritis. Biopsies were not taken as the patient is currently on anticoagulation therapy. The scope was then withdrawn into the esophagus. The GE junction was located at 39 cm from the incisors. The esophagus appeared normal. There were no erosions or ulcerations seen and the patient tolerated the procedure well. IMPRESSION: 1. No pathology to explain epigastric abdominal pain, nausea and vomiting. 2. Mild gastritis, biopsies not taken secondary to anticoagulation therapy. RECOMMENDATIONS: The findings of this examination were discussed with the patient. Okay to start diet. Continue PPI therapy. Follow up with GI after discharge if symptoms continue for further management.
[2018-12-01] MEDS: ATORVASTATIN 80 MG TAB PO SCH (20:43)
[2018-12-02] MEDS: NITROGLYCERIN OINT 1 INCH/GM PACKET TOPICAL SCH ×2 (01:03→06:21)
[2018-12-02] MEDS: ONDANSETRON 4 MG/2 ML VIAL IVP PRN ×3 (01:23→13:53)
[2018-12-02] MEDS: HYDROmorphone 1 MG/ML 1 ML SYRINGE IVP PRN ×3 (01:24→13:29)
[2018-12-02] MEDS ORDERED: IOPAMIDOL-300 CONTRAST 30 ML VIAL (ORAL USE) PO PRN (07:40)
[2018-12-02 09:14] LABS: Anisocytosis Slight; Basophils % (A) 0 %; Eosinophils # (A) 0.1 k/uL (0-0.7); Eosinophils % (A) 2 %; HCT 37.9 % (39.0-53.0); HGB 12.1 gm/dL (13.0-17.5); Lymphocytes # (A) 0.9 k/uL (1.0-4.8); Lymphocytes % (A) 21 %; MCHC 31.9 g/dL (31.0-37.0); MCV 87.9 fL (80.0-100.0); Mean Platelet Volume 5.9; Monocytes # (A) 0.3 k/uL (0-1.0); Monocytes % (A) 7 %; Neutrophils # (A) 2.7 k/uL (1.3-7.7); Neutrophils % (A) 67 %; Platelet Count 293 k/uL (150-450); RBC 4.31 m/uL (4.30-5.90); RDW 16.5 % (11.5-15.5); WBC 4.1 k/uL (3.8-10.6)
--- NOTE | 2018-12-02 09:33 | P.PN ---
Subjective Progress Note Date: 12/02/18 Principal diagnosis: Epigastric abdominal pain nausea vomiting 63-year-old male status post EGD yesterday for severe burning epigastric pain endoscopic findings unremarkable to account for his symptomatology. Afebrile. Reports epigastric burning. CT abdomen ordered. Objective - Vital Signs Vital signs: Vital Signs Temp 97.8 F 12/01/18 23:46 Pulse 67 12/01/18 23:46 Resp 15 12/02/18 03:34 BP 156/87 12/01/18 23:46 Pulse Ox 97 12/01/18 23:46 Intake & Output 12/01/18 12/02/18 12/02/18 18:59 06:59 18:59 Intake Total 500 Output Total 100 Balance 500 -100 Intake: IV 200 Oral 300 Output: Emesis 100 Other: Voiding Method Toilet Toilet # Voids 2 # Emeses 1 - Exam General appearance: The patient is alert, oriented, in no acute distress. HET: Head is normocephalic and atraumatic. Pupils are equal and reactive. Oropharynx is clear without lesions. Neck: Supple without lymphadenopathy. Trachea midline. Heart: S1 S2. Regular rate and rhythm. Lungs: No crackles or wheezes are heard. Abdomen: Soft, mild midepigastric tenderness, nondistended with bowel sounds. No peritoneal signs. No palpable organomegaly or masses. Extremities: Normal skin color and turgor. No cyanosis, rash, ulceration, clubbing, or edema. Radial and pedal pulses are 2/4 bilaterally. Neurological: No focal deficits. Strength and sensation are grossly intact. - Labs CBC & Chem 7: 12/02/18 08:12 11/30/18 06:36 Assessment and Plan (1) Epigastric abdominal pain Narrative/Plan: 63-year-old male with a history of CAD maintained on dual antiplatelet therapy admitted with 3 day history of intractable nausea vomiting bilious emesis with severe epigastric burning chest pain status post EGD with findings of mild gastritis duodenitis no evidence of peptic ulcer disease. Current Visit: Yes Status: Acute Code(s): R10.13 - EPIGASTRIC PAIN SNOMED Code(s): 34971931 (2) Nausea & vomiting Current Visit: Yes Status: Acute Code(s): R11.2 - NAUSEA WITH VOMITING, UNSPECIFIED SNOMED Code(s): 62186679 (3) History of gastroesophageal reflux (GERD) Current Visit: Yes Status: Acute Code(s): Z87.19 - PERSONAL HISTORY OF OTHER DISEASES OF THE DIGESTIVE SYSTEM SNOMED Code(s): 98631845620283 (4) Chest pain Current Visit: Yes Status: Acute Code(s): R07.9 - CHEST PAIN, UNSPECIFIED SNOMED Code(s): 90355871 Plan: 1. Protonix [address] abdomen if negative advance diet as tolerated. Discharge per medicine. Follow up in GI office if symptoms do not improve. Assessment and plan a care discussed with Dr. Rutherford
[2018-12-02] MEDS: LISINOPRIL 5 MG TAB PO SCH (09:51)
[2018-12-02] MEDS: MORPHINE SULFATE ER 30 MG TABLET PO SCH (09:51)
[2018-12-02] MEDS: PANTOPRAZOLE 40 MG/10 ML VIAL IVP SCH (09:51)
[2018-12-02] MEDS: CARVEDILOL 12.5 MG TAB PO SCH (09:51)
[2018-12-02] MEDS: SODIUM CHLORIDE 0.9% 1,000 ML IV SCH ×2 (09:52→12:24)
[2018-12-02] MEDS: ASPIRIN 81 MG PO SCH (09:52)
[2018-12-02] MEDS: MAG HYDROX/AL HYDROX/SIMETH 30 ML CUP PO SCH ×2 (09:57→12:25)
[2018-12-02] MEDS: PRASUGREL 10 MG TAB PO SCH (09:57)
--- NOTE | 2018-12-02 10:35 | CT ---
EXAMINATION TYPE: CT abdomen pelvis wo con DATE OF EXAM: 12/02/2018 COMPARISON: 07/02/2018 HISTORY: 63-year-old male Mid abdominal pain with nausea and vomiting. CT DLP: 480.2 mGycm. Automated exposure control for dose reduction was used. TECHNIQUE: Contiguous axial scanning of the abdomen and pelvis without IV contrast. Coronal and sagit ivan reconstructions performed. FINDINGS: Heart is normal size without pericardial effusion. Trace pleural effusions are new. Mild aneurysm of abdominal aorta at the thoracoabdominal junction is 3.1 cm. Liver upper limits of normal in size at 17.4 cm. Couple subcentimeter hypodensities within the liver were present previously, too small for accurate CT characterization, probable cysts. Cholecystectomy clips are present. Stable prominence to the bile duct measuring up to 1.1 cm, coronal image 32. Adrenal glands, kidneys, spleen with a small inferior splenule, and pancreas show no gross abnormalit y. Mild diffuse distention of the main pancreatic duct is not widened on this noncontrast study. Suggestion of mild fold thickening within the gastric body. Some scattered prominent small bowel loops in the left side of the abdomen measure up to 3.0 cm but w ithout a discrete transition point. No mesenteric or retroperitoneal lymphadenopathy identified. Tiny fatty umbilical hernia. Normal appendix. Some liquid stool is noted within the distal transverse colon. Circumferential wall thickening of the lower half of the descending colon. There is sigmoid diverticulosis. Mild pelvic ascites is present, difficult to exclude some focal inflammation along the distal sigmoid , axial image 67. Mild cerebral ventral bladder wall thickening. Prostate gland measures 5.1 cm wide. No abnormal fluid collection in the pelvis or pelvic lymphadenopathy seen. Bones: Degenerative changes of the hips and SI joints. Posterior lumbar fusion changes from L3 throug h S1 levels. IMPRESSION: 1. Trace pleural effusions and mild pelvic ascites are new. Correlate for possible fluid overload st ate. 2. Sigmoid diverticulosis. Difficult to exclude some focal inflammation along the distal sigmoid, ax ial image 67. Alternatively, this may reflect adjacent free fluid. Correlate for any symptoms of mild acute diverticulitis. 3. Scattered liquid stool, borderline distended small bowel loops in the left abdomen, and mild circ umferential wall thickening of the lower half of the descending colon. Correlate for possible enteroc olitis. 4. Dilatation of bile duct at 1.1 cm seems to be chronic in this patient status post cholecystectomy. Correlate with alkaline phosphatase and bilirubin levels as a precautionary measure as the compariso n, contrast-enhanced exam suggested mild distention of the main pancreatic duct as well. 5. Mild circumferential bladder wall thinning could represent chronic lateral wall hypertrophy or cys titis. 6. Mild aneurysm of the aorta at the thoracoabdominal junction at 3.1 cm.
[2018-12-02 10:38] VITALS: BP 149/83
[2018-12-02 10:48] VITALS: PULSE 70; RESP 18; TEMP 98.1
--- NOTE | 2018-12-02 14:04 | P.DS ---
Providers Date of admission: 12/01/18 15:45 Expected date of discharge: 12/02/18 Attending physician: Willi Chase MD Consults: 11/28/18 20:41 Consult Physician Urgent Consulting Provider: [facility] Consult Reason/Comments: Chest pain Do you want consulting provider notified?: Yes 11/30/18 10:11 Consult Physician Stat Consulting Provider: Salomon Rutherford Consult Reason/Comments: Gastritis, epigastric pain, h/o maxime Do you want consulting provider notified?: Yes Primary care physician: Physician Nonstaff Hospital Course: Discharge Diagnosis: Mild diverticulitis Intractable abdominal pain due to above HTN HLD Chronic low back pain acute coronary syndrome ruled out Hospital Course: Patient is a 63-year-old -[place] male for history of coronary artery disease status post 3 stents with last heart cath on 11/08 with negative dobutamine stress echo 05/10, chronic low back pain, hypertension, dyslipidemia, and GERD who presented to the hospital with complaints of chest and abdominal pain associated with vomiting and diarrhea. In the ER he underwent an extensive evaluation. He had a negative chest x-ray, EKG were history of normal sinus rhythm, and troponin was negative. He was admitted for chest pain rule out. He was seen by cardiology who felt this was not a cardiac etiology. He underwent an abdominal ultrasound which was consistent with prior cholecystectomy. He underwent an abdominal x-ray which showed no acute obstruction. He had an EGD performed on 12/[address] Rutherford which showed mild gastritis. Patient was started on an H2 jerald in light of his anticoagulation. He continued to have some nausea and vomiting. He underwent a CT abdomen and pelvis which showed mild diverticulitis. He was determined stable for discharge for further outpatient evaluation. He will complete a course of ciprofloxacin 500 mg twice daily and Flagyl 500 mg twice daily. He will follow-up in the GI office in 2 weeks for further recommendations. He was determined stable for discharge. He does not have a PCP currently and he was referred to Dr. Almonte. Patient seen and examined at bedside. Still reporting some abdominal pain but asking to eat. States he had diarrhea yesterday but none today. Per nursing scan amount of sputum and emesis bucket. Discussed with patient importance of a soft bland diet for the next several days completing his antibiotics as an outpatient. Patient asking for additional pain shot prior to discharge. Vital signs reviewed and stable. General: non toxic, no distress, appears at stated age Derm: warm, dry Head: atraumatic, normocephalic, symmetric Eyes: EOMI, no lid lag, anicteric sclera Mouth: no lip lesion, mucus membranes moist Cardiovascular: S1S2 reg, no murmur, positive posterior tibial pulse bilateral, Lungs: CTA bilateral, no rhonchi, no rales , no accessory muscle use Abdominal: soft, +tender to palpation diffusely, no guarding, no appreciable organomegaly Ext: no gross muscle atrophy, no edema, no contractures Neuro: CN II-XI grossly intact, no focal neuro deficits Psych: Alert, oriented, appropriate affect A total of 25 minutes of time were spent preparing this complex discharge summary . Pertinent Studies: He underwent an abdominal ultrasound which was consistent with prior cholecystectomy. He underwent an abdominal x-ray which showed no acute obstruction. He underwent a CT abdomen and pelvis which showed mild diverticulitis. Procedures: He had an EGD performed on 12/[address] Rutherford which showed mild gastritis. Patient Condition at Discharge: Stable Plan - Discharge Summary Discharge Rx Participant: No New Discharge Prescriptions: New Ciprofloxacin HCl [Cipro] 500 mg PO Q12HR #14 tablet Famotidine [Pepcid] 20 mg PO DAILY #30 tablet metroNIDAZOLE [Flagyl] 500 mg PO BID #14 tab Continue Aspirin 81 mg PO DAILY Carvedilol 25 mg PO BID Fluticasone Nasal [place] [Flonase Nasal [place]] 1 spray EA NOSTRIL BID Morphine Sulfate ER [Ms Contin] 30 mg PO TID Atorvastatin [Lipitor] 80 mg PO HS #30 tab Prasugrel [Effient] 10 mg PO DAILY #30 tab Lisinopril [Zestril] 5 mg PO HS #30 tab tiZANidine [Zanaflex] 4 mg PO BID PRN PRN Reason: Muscle Spasm Ondansetron [Zofran ODT] 4 mg PO Q8HR PRN #10 tab PRN Reason: Nausea oxyCODONE HCL 15 mg PO TID PRN PRN Reason: Breakthrough Pain Discharge Medication List Aspirin 81 mg PO DAILY 01/21/17 [History] Carvedilol 25 mg PO BID 01/21/17 [History] Fluticasone Nasal [place] [Flonase Nasal [place]] 1 spray EA NOSTRIL BID 04/20/17 [ History] Morphine Sulfate ER [Ms Contin] 30 mg PO TID 10/10/17 [History] Atorvastatin [Lipitor] 80 mg PO HS #30 tab 10/12/17 [Rx] Prasugrel [Effient] 10 mg PO DAILY #30 tab 10/12/17 [Rx] Lisinopril [Zestril] 5 mg PO HS #30 tab 10/13/17 [Rx] tiZANidine [Zanaflex] 4 mg PO BID PRN 02/26/18 [History] Ondansetron [Zofran ODT] 4 mg PO Q8HR PRN #10 tab 07/02/18 [Rx] oxyCODONE HCL 15 mg PO TID PRN 08/01/18 [History] Ciprofloxacin HCl [Cipro] 500 mg PO Q12HR #14 tablet 12/02/18 [Rx] Famotidine [Pepcid] 20 mg PO DAILY #30 tablet 12/02/18 [Rx] metroNIDAZOLE [Flagyl] 500 mg PO BID #14 tab 12/02/18 [Rx] Follow up Appointment(s)/Referral(s): Nelson Almonte MD [STAFF PHYSICIAN] - 1-2 Days Nonstaff,Physician [Primary Care Provider] - 1-2 days Salomon Rutherford MD [STAFF PHYSICIAN] - 2 Weeks Patient Instructions/Handouts: Diverticulitis (DC) Activity/Diet/Wound Care/Special Instructions: soft bland diet X 1 week, activity as tolerated follow- up with Dr. Almonte and Dr. Rutherford Complete all antibiocs. No consuming alcohol while on antibiotic flagyl or it will cause nausea and vomiting. Discharge Disposition: HOME SELF-CARE
[2018-12-03] MEDS ORDERED: PANTOPRAZOLE 40 MG TABLET PO SCH (07:30)
== END 2018-12-02 15:00 | disposition home or self-care (01) | DRG 392 ==
LOC: EC 18:23 → 1SOBS 20:40 → OBSVTOIN 12-01 15:45
PROVIDERS: ADMIT Internal Medicine; ATTEND Internal Medicine
PROC: 0DJ08ZZ Inspection of Upper Intestinal Tract, Via Natural or Artificial Opening Endoscopic (ICD-10-PCS; principal; 2018-12-01 08:30)
DX: K57.32 Diverticulitis of large intestine without perforation or abscess without bleeding (principal); D64.9 Anemia, unspecified; K29.80 Duodenitis without bleeding; K29.70 Gastritis, unspecified, without bleeding; K21.9 Gastro-esophageal reflux disease without esophagitis; K44.9 Diaphragmatic hernia without obstruction or gangrene; E78.5 Hyperlipidemia, unspecified; E05.90 Thyrotoxicosis, unspecified without thyrotoxic crisis or storm; I10 Essential (primary) hypertension; I25.10 Atherosclerotic heart disease of native coronary artery without angina pectoris; M19.90 Unspecified osteoarthritis, unspecified site; G89.4 Chronic pain syndrome; M54.5 Low back pain; G43.909 Migraine, unspecified, not intractable, without status migrainosus; I73.9 Peripheral vascular disease, unspecified; Z79.82 Long term (current) use of aspirin; Z79.01 Long term (current) use of anticoagulants; Z79.891 Long term (current) use of opiate analgesic; Z79.899 Other long term (current) drug therapy; Z86.718 Personal history of other venous thrombosis and embolism; Z87.11 Personal history of peptic ulcer disease; Z87.81 Personal history of (healed) traumatic fracture; Z95.5 Presence of coronary angioplasty implant and graft; Z87.891 Personal history of nicotine dependence; Z90.49 Acquired absence of other specified parts of digestive tract; Z98.1 Arthrodesis status; Z98.41 Cataract extraction status, right eye; Z88.8 Allergy status to other drugs, medicaments and biological substances; Z82.49 Family history of ischemic heart disease and other diseases of the circulatory system; Z80.6 Family history of leukemia
CPT/HCPCS: 36415; 43235; 71046; 74021; 74176; 76700; 80053; 80061; 82550; 82553; 83690; 83735; 84484; 85025; 85610; 85730; 93005; 96365; 96368; 96375; 96376; 99285

== ENCOUNTER 2018-12-15 14:26 | Emergency (ER) | payer MEDICARE ==
[2018-12-15] MEDS ORDERED: HYDROmorphone 1 MG/ML 1 ML SYRINGE IM STA ×2 (15:42→21:42)
--- NOTE | 2018-12-15 16:36 | XR ---
EXAMINATION: XR chest 2V DATE AND TIME: 12/15/2018 4:21 PM CLINICAL INDICATION: PHH; Chest Pain TECHNIQUE: AP and lateral COMPARISON: 11/28/2018 FINDINGS: The lungs are clear. The pleural spaces are negative. The cardiac silhouette is not enlarged. Prominent aortic tortuosity is redemonstrated. The skeletal structures and soft tissues are negative for acute findings. IMPRESSION: NO ACUTE PROCESS; STABLE CHEST X-RAY APPEARANCE.
[2018-12-15 16:37] LABS: ALT 17 U/L (21-72); AST 25 U/L (17-59); Albumin 4.7 g/dL (3.5-5.0); Alkaline Phosphatase 96 U/L (38-126); Anion Gap 10 mmol/L; Blood Urea Nitrogen 10 mg/dL (9-20); Calcium 9.6 mg/dL (8.4-10.2); Carbon Dioxide 24 mmol/L (22-30); Chloride 102 mmol/L (98-107); Glucose 130 mg/dL (74-99); Lipase 30 U/L (23-300); Magnesium 2.1 mg/dL (1.6-2.3); Potassium 5.4 mmol/L (3.5-5.1); Sodium 136 mmol/L (137-145); Total Bilirubin 0.5 mg/dL (0.2-1.3); Total Protein 7.9 g/dL (6.3-8.2)
[2018-12-15 16:47] LABS: Anisocytosis Slight; Basophils % (A) 1 %; Eosinophils # (A) 0.1 k/uL (0-0.7); Eosinophils % (A) 3 %; HCT 41.9 % (39.0-53.0); HGB 13.1 gm/dL (13.0-17.5); Hypochromasia Slight; Lymphocytes # (A) 0.7 k/uL (1.0-4.8); Lymphocytes % (A) 19 %; MCH 27.9 pg (25.0-35.0); MCHC 31.2 g/dL (31.0-37.0); MCV 89.5 fL (80.0-100.0); Mean Platelet Volume 6.3; Monocytes # (A) 0.2 k/uL (0-1.0); Monocytes % (A) 4 %; Neutrophils # (A) 2.8 k/uL (1.3-7.7); Neutrophils % (A) 71 %; Platelet Count 353 k/uL (150-450); RBC 4.69 m/uL (4.30-5.90); RDW 16.3 % (11.5-15.5); WBC 3.9 k/uL (3.8-10.6)
[2018-12-15 16:53] LABS: Creatine Kinase 136 U/L (55-170)
[2018-12-15 17:00] LABS: INR 0.9 (<1.2); Prothrombin Time 9.6 sec (9.0-12.0)
[2018-12-15 17:06] LABS: Creatine Kinase MB 1.5 ng/mL (0.0-2.4); D-Dimer 0.89 mg/L FEU (<0.60); Troponin I <0.012 ng/mL (0.000-0.034)
--- NOTE | 2018-12-15 17:12 | ED ---
Chest Pain HPI - General Chief Complaint: Chest Pain Stated Complaint: Chest pain Time Seen by Provider: 12/15/18 15:20 Source: patient, RN notes reviewed, old records reviewed Mode of arrival: ambulatory Limitations: no limitations - History of Present Illness Initial Comments: This is a 63-year-old male the ER for evaluation he presents today for evaluation chest pain. Patient's no history of CAD will for recurrent L episodes of chest pain. Patient does admit to chest pain today as well. He admits to some sweating and shortness of breath. Patient does have history of angina. No modifying factors for symptoms at home. MD Complaint: chest pain -: hour(s) Onset: during rest Pain Location: substernal, left chest Pain Radiation: LUE Severity: mild Severity scale (1-10): 2 Quality: aching, heaviness Improves With: nothing Worsens With: nothing Anginal Symptoms: nausea, dyspnea - Related Data Home Medications Medication Instructions Recorded Confirmed Aspirin 81 mg PO DAILY 01/21/17 12/15/18 Carvedilol 25 mg PO BID 01/21/17 12/15/18 Fluticasone Nasal [place] [Flonase 1 spray EA NOSTRIL BID 04/20/17 12/15/18 Nasal [place]] Morphine Sulfate ER [Ms Contin] 30 mg PO TID 10/10/17 12/15/18 tiZANidine [Zanaflex] 4 mg PO BID PRN 02/26/18 12/15/18 oxyCODONE HCL 15 mg PO TID PRN 08/01/18 12/15/18 Diazepam [Valium] 10 mg PO HS 12/15/18 12/15/18 Previous Rx's Medication Instructions Recorded Atorvastatin [Lipitor] 80 mg PO HS #30 tab 10/12/17 Prasugrel [Effient] 10 mg PO DAILY #30 tab 10/12/17 Lisinopril [Zestril] 5 mg PO HS #30 tab 10/13/17 Ondansetron [Zofran ODT] 4 mg PO Q8HR PRN #10 tab 07/02/18 Famotidine [Pepcid] 20 mg PO DAILY #30 tablet 12/02/18 Allergies Allergy/AdvReac Type Severity Reaction Status Date / Time ibuprofen [From Motrin] Allergy Rash/Hives Verified 12/15/18 15:53 ketorolac tromethamine Allergy Rash/Hives Verified 12/15/18 15:53 [From Toradol] Review of Systems ROS Statement: Those systems with pertinent positive or pertinent negative responses have been documented in the HPI. ROS Other: All systems not noted in ROS Statement are negative. EKG Findings - EKG Comments: EKG Findings:: EKG shows sinus rhythm rate of 76, ID 166, QRS 70, QTc 460 Past Medical History Past Medical History: Coronary Artery Disease (CAD), Chest Pain / Angina, Deep Vein Thrombosis (DVT), GERD/Reflux, Hyperlipidemia, Hypertension, Osteoarthritis (OA), Thyroid Disorder Additional Past Medical History / Comment(s): 11/24/17 EGD/colonoscopy which pt states showed, gastritis, small hiatal hernia and diverticular dx, pt states years ago he had PUD, chronic low back pain, chronic pain syndrome, migraines, DVT L arm, numbness/tingling bilateral lower legs, bilateral past R hand fracture, arthritis multiple joints, hyperthyroid, sinus problems. History of Any Multi-Drug Resistant Organisms: None Reported Past Surgical History: Back Surgery, Cholecystectomy, Heart Catheterization With Stent, Orthopedic Surgery Additional Past Surgical History / Comment(s): EGDs/colonoscopies with last time being 11/24/17, multiple low back surgeries, bilateral arm and bilateral thigh surgeries for brown recluse spider bites with infection, morphine pain pump insertion and removal due to infection, PCI with stents, L rotator cuff repair, L knee arthroscopy, cervical fusion/cage, R cataract removal. Past Anesthesia/Blood Transfusion Reactions: No Reported Reaction Additional Past Anesthesia/Blood Transfusion Reaction / Comment(s): Pt states after cervical fusion he "" in the recovery room but does not know cause- he was"gone for 8 minutes" and states he was resusitated. Pt recieved blood after back surgery and tolerated it well. Date of Last Stent Placement:: 10/11/17 Past Psychological History: No Psychological Hx Reported Smoking Status: Former smoker Past Alcohol Use History: None Reported Past Drug Use History: None Reported - Past Family History Father Additional Family Medical History / Comment(s): Father had back problems. He lived to be 82 yrs old. Mother Family Medical History: Hypertension, Myocardial Infarction ([place]) Additional Family Medical History / Comment(s): Mother of a [place] at the age of 55yrs. Brother(s) Family Medical History: Cancer Additional Family Medical History / Comment(s): Leukemia General Exam Limitations: no limitations General appearance: alert, in no apparent distress Head exam: Present: atraumatic, normocephalic, normal inspection Eye exam: Present: normal appearance, PERRL, EOMI. Absent: scleral icterus, conjunctival injection, periorbital swelling ENT exam: Present: normal exam, mucous membranes moist Neck exam: Present: normal inspection. Absent: tenderness, meningismus, lymphadenopathy Respiratory exam: Present: normal lung sounds bilaterally. Absent: respiratory distress, wheezes, rales, rhonchi, stridor Cardiovascular Exam: Present: regular rate, normal rhythm, normal heart sounds. Absent: systolic murmur, diastolic murmur, rubs, gallop, clicks GI/Abdominal exam: Present: soft, normal bowel sounds. Absent: distended, tenderness, guarding, rebound, rigid Extremities exam: Present: normal inspection, full ROM, normal capillary refill. Absent: tenderness, pedal edema, joint swelling, calf tenderness Back exam: Present: normal inspection Neurological exam: Present: alert, oriented X3, CN II-XII intact Psychiatric exam: Present: normal affect, normal mood Skin exam: Present: warm, dry, intact, normal color. Absent: rash Course Vital Signs 12/15/18 12/15/18 12/15/18 14:30 16:21 18:24 Temperature 98.0 F 98.0 F Pulse Rate 75 72 96 Respiratory 18 18 18 Rate Blood Pressure 199/113 194/105 181/112 O2 Sat by Pulse 98 98 98 Oximetry 12/15/18 21:37 Temperature 97.9 F Pulse Rate 83 Respiratory 16 Rate Blood Pressure 185/106 O2 Sat by Pulse 99 Oximetry - Reevaluation(s) Reevaluation #1: 12/15/18 18:32 Medical record is reviewed including heart catheterization and stress test within the past. As well as patient's most recent inpatient observation for chest Reevaluation #2: 12/15/18 18:32 Patient does continue to need pain medication here in the ER Chest Pain MDM - MDM 63 male well-known to this facility for evaluation of chest pain. Chest pain and nausea, abdominal pain. The EKG is normal, troponin is negative by 2 and patient can be discharged Disposition Clinical Impression: Chest pain Disposition: HOME SELF-CARE Condition: Good Instructions (If sedation given, give patient instructions): Chest Pain (ED) Is patient prescribed a controlled substance at d/c from ED?: No Referrals: Nonstaff,Physician [Primary Care Provider] - 1-2 days
[2018-12-15] MEDS ORDERED: HYDROcodone/APAP 5-325MG 1 EACH TAB PO STA (18:03)
[2018-12-15] MEDS ORDERED: ONDANSETRON ODT 4 MG TAB PO STA ×2 (18:07→21:42)
[2018-12-15 21:38] VITALS: BP 185/106; PULSE 83; RESP 16; TEMP 97.9
[2018-12-15] MEDS ORDERED: MAG HYDROX/AL HYDROX/SIMETH 30 ML, HYOSCYAMINE ELIXIR 10 ML, CIMETIDINE HCL 300 MG PO STA ×3 (21:42)
== END 2018-12-15 21:58 | disposition home or self-care (01) ==
LOC: EC 14:26
DX: R07.2 Precordial pain (principal); R06.02 Shortness of breath; R11.0 Nausea; I25.119 Atherosclerotic heart disease of native coronary artery with unspecified angina pectoris; M19.90 Unspecified osteoarthritis, unspecified site; I10 Essential (primary) hypertension; Z87.19 Personal history of other diseases of the digestive system; Z95.5 Presence of coronary angioplasty implant and graft; Z87.891 Personal history of nicotine dependence; Z82.49 Family history of ischemic heart disease and other diseases of the circulatory system; Z79.82 Long term (current) use of aspirin; Z79.891 Long term (current) use of opiate analgesic; Z79.899 Other long term (current) drug therapy; Z88.6 Allergy status to analgesic agent
CPT/HCPCS: 36415; 93005; 85379; 83880; 80053; 82550; 82553; 83690; 83735; 84484; 85025; 85610; 85730; 71046; 99285; 96372 ×2; J1170

== ENCOUNTER 2019-01-10 22:43 | Emergency (ER) | payer MEDICARE ==
[2019-01-10] MEDS ORDERED: SODIUM CHLORIDE 0.9% 500 ML 500 ML IV STA (22:54)
--- NOTE | 2019-01-10 23:00 | ED ---
General Adult HPI - General Chief complaint: Neuro Symptoms/Deficit Stated complaint: hypertension Time Seen by Provider: 01/10/19 22:47 Source: patient, family, RN notes reviewed, old records reviewed Mode of arrival: EMS Limitations: no limitations - History of Present Illness Initial comments: 63-year-old male history of CAD, history of hypertension presenting with elevated blood pressure. Patient states that at home this evening to check his blood pressure was significantly elevated over 200 systolic. Patient states he did take his medication this morning. Denies focal weakness. He reports some mild right arm numbness and tingling. He states he's had these symptoms before. He also complains some left shoulder pain. No central chest pain. Mild chest tightness. No vomiting, no diarrhea. No diaphoresis. - Related Data Home Medications Medication Instructions Recorded Confirmed Aspirin 81 mg PO DAILY 01/21/17 01/10/19 Carvedilol 25 mg PO BID 01/21/17 01/10/19 Fluticasone Nasal [place] [Flonase 1 spray EA NOSTRIL BID 04/20/17 01/10/19 Nasal [place]] Morphine Sulfate ER [Ms Contin] 30 mg PO TID 10/10/17 01/10/19 tiZANidine [Zanaflex] 4 mg PO TID 02/26/18 01/10/19 oxyCODONE HCL 15 mg PO TID PRN 08/01/18 01/10/19 Diazepam [Valium] 10 mg PO HS 12/15/18 01/10/19 Previous Rx's Medication Instructions Recorded Atorvastatin [Lipitor] 80 mg PO HS #30 tab 10/12/17 Prasugrel [Effient] 10 mg PO DAILY #30 tab 10/12/17 Lisinopril [Zestril] 5 mg PO HS #30 tab 10/13/17 Ondansetron [Zofran ODT] 4 mg PO Q8HR PRN #10 tab 07/02/18 Famotidine [Pepcid] 20 mg PO DAILY #30 tablet 12/02/18 Allergies Allergy/AdvReac Type Severity Reaction Status Date / Time ibuprofen [From Motrin] Allergy Rash/Hives Verified 01/10/19 23:09 ketorolac tromethamine Allergy Rash/Hives Verified 01/10/19 23:09 [From Toradol] Review of Systems ROS Statement: Those systems with pertinent positive or pertinent negative responses have been documented in the HPI. ROS Other: All systems not noted in ROS Statement are negative. Past Medical History Past Medical History: Coronary Artery Disease (CAD), Chest Pain / Angina, Deep Vein Thrombosis (DVT), GERD/Reflux, Hyperlipidemia, Hypertension, Osteoarthritis (OA), Thyroid Disorder Additional Past Medical History / Comment(s): 11/24/17 EGD/colonoscopy which pt states showed, gastritis, small hiatal hernia and diverticular dx, pt states years ago he had PUD, chronic low back pain, chronic pain syndrome, migraines, DVT L arm, numbness/tingling bilateral lower legs, bilateral past R hand fracture, arthritis multiple joints, hyperthyroid, sinus problems. History of Any Multi-Drug Resistant Organisms: None Reported Past Surgical History: Back Surgery, Cholecystectomy, Heart Catheterization With Stent, Orthopedic Surgery Additional Past Surgical History / Comment(s): EGDs/colonoscopies with last time being 11/24/17, multiple low back surgeries, bilateral arm and bilateral thigh surgeries for brown recluse spider bites with infection, morphine pain pump insertion and removal due to infection, PCI with stents, L rotator cuff repair, L knee arthroscopy, cervical fusion/cage, R cataract removal. Past Anesthesia/Blood Transfusion Reactions: No Reported Reaction Additional Past Anesthesia/Blood Transfusion Reaction / Comment(s): Pt states after cervical fusion he "" in the recovery room but does not know cause- he was"gone for 8 minutes" and states he was resusitated. Pt recieved blood after back surgery and tolerated it well. Date of Last Stent Placement:: 10/11/17 Past Psychological History: No Psychological Hx Reported Smoking Status: Former smoker Past Alcohol Use History: None Reported Past Drug Use History: None Reported - Past Family History Father Additional Family Medical History / Comment(s): Father had back problems. He lived to be 82 yrs old. Mother Family Medical History: Hypertension, Myocardial Infarction ([place]) Additional Family Medical History / Comment(s): Mother of a [place] at the age of 55yrs. Brother(s) Family Medical History: Cancer Additional Family Medical History / Comment(s): Leukemia General Exam Limitations: no limitations General appearance: alert, in no apparent distress Head exam: Present: atraumatic, normocephalic Eye exam: Present: normal appearance, PERRL ENT exam: Present: normal exam Neck exam: Present: normal inspection. Absent: tenderness, meningismus Respiratory exam: Present: normal lung sounds bilaterally. Absent: respiratory distress, wheezes Cardiovascular Exam: Present: regular rate, normal rhythm GI/Abdominal exam: Present: soft. Absent: distended, tenderness, guarding Extremities exam: Present: normal inspection, normal capillary refill. Absent: pedal edema, calf tenderness Neurological exam: Present: alert, oriented X3, CN II-XII intact. Absent: motor sensory deficit (NIH 0) Psychiatric exam: Present: normal affect, normal mood Skin exam: Present: warm, dry, intact. Absent: cyanosis, diaphoretic Course Vital Signs 01/10/19 22:45 Temperature 98.2 F Pulse Rate 84 Respiratory 20 Rate Blood Pressure 180/108 O2 Sat by Pulse 98 Oximetry EKG Findings - EKG Comments: EKG Findings:: EKG: Normal sinus rhythm rate of 84, DE interval 162, QRS duration 94, QTC [address] segment elevation Medical Decision Making - Medical Decision Making 63-year-old male presenting for evaluation of hypertension. Patient has history of hypertension, has been compliant with his medication. Denies focal weakness, did complain of some right arm paresthesia. No numbness on exam. Patient's second complaint was left arm pain, no significant chest pain. He has been evaluated recently with chief complaint of chest pain. EKG is nonischemic, no ST segment elevation, T waves are upright. Chest x-ray obtained , negative for cardiopulmonary disease, head CT obtained which is negative for intracranial hemorrhage or mass effect. Patient's symptoms have begun proximally 4 hours prior to arrival, do feel confident with single troponin in this patient. He will follow with his primary care physician regarding paresthesia. Blood pressure is down trending without treatment. - Lab Data Result diagrams: 01/10/19 23:59 01/10/19 23:59 Lab Results 01/10/19 01/10/19 01/10/19 Range/Units 23:19 23:59 23:59 WBC 3.7 L (3.8-10.6) k/uL RBC 4.11 L (4.30-5.90) m/uL Hgb 11.7 L (13.0-17.5) gm/dL Hct 37.0 L (39.0-53.0) % MCV 90.0 (80.0-100.0) fL MCH 28.6 (25.0-35.0) pg MCHC 31.7 (31.0-37.0) g/dL RDW 16.2 H (11.5-15.5) % Plt Count 269 (150-450) k/uL Neutrophils % 69 % Lymphocytes % 19 % Monocytes % 7 % Eosinophils % 3 % Basophils % 1 % Neutrophils # 2.5 (1.3-7.7) k/uL Lymphocytes # 0.7 L (1.0-4.8) k/uL Monocytes # 0.2 (0-1.0) k/uL Eosinophils # 0.1 (0-0.7) k/uL Basophils # 0.0 (0-0.2) k/uL Anisocytosis Slight PT (9.0-12.0) sec INR (<1.2) APTT (22.0-30.0) sec Sodium 137 (137-145) mmol/L Potassium 4.6 (3.5-5.1) mmol/L Chloride 101 (98-107) mmol/L Carbon Dioxide 27 (22-30) mmol/L Anion Gap 9 mmol/L BUN 9 (9-20) mg/dL Creatinine 0.68 (0.66-1.25) mg/dL Est GFR (CKD-EPI)AfAm >90 (>60 ml/min/1.73 sqM) Est GFR (CKD-EPI)NonAf >90 (>60 ml/min/1.73 sqM) Glucose 148 H (74-99) mg/dL Calcium 9.3 (8.4-10.2) mg/dL Total Bilirubin 0.4 (0.2-1.3) mg/dL AST 15 L (17-59) U/L ALT 12 L (21-72) U/L Alkaline Phosphatase 84 (38-126) U/L Total Creatine Kinase 83 (55-170) U/L Total Protein 7.1 (6.3-8.2) g/dL Albumin 4.3 (3.5-5.0) g/dL 01/10/19 Range/Units 23:59 WBC (3.8-10.6) k/uL RBC (4.30-5.90) m/uL Hgb (13.0-17.5) gm/dL Hct (39.0-53.0) % MCV (80.0-100.0) fL MCH (25.0-35.0) pg MCHC (31.0-37.0) g/dL RDW (11.5-15.5) % Plt Count (150-450) k/uL Neutrophils % % Lymphocytes % % Monocytes % % Eosinophils % % Basophils % % Neutrophils # (1.3-7.7) k/uL Lymphocytes # (1.0-4.8) k/uL Monocytes # (0-1.0) k/uL Eosinophils # (0-0.7) k/uL Basophils # (0-0.2) k/uL Anisocytosis PT 10.1 (9.0-12.0) sec INR 0.9 (<1.2) APTT 26.5 (22.0-30.0) sec Sodium (137-145) mmol/L Potassium (3.5-5.1) mmol/L Chloride (98-107) mmol/L Carbon Dioxide (22-30) mmol/L Anion Gap mmol/L BUN (9-20) mg/dL Creatinine (0.66-1.25) mg/dL Est GFR (CKD-EPI)AfAm (>60 ml/min/1.73 sqM) Est GFR (CKD-EPI)NonAf (>60 ml/min/1.73 sqM) Glucose (74-99) mg/dL Calcium (8.4-10.2) mg/dL Total Bilirubin (0.2-1.3) mg/dL AST (17-59) U/L ALT (21-72) U/L Alkaline Phosphatase (38-126) U/L Total Creatine Kinase (55-170) U/L Total Protein (6.3-8.2) g/dL Albumin (3.5-5.0) g/dL Disposition Clinical Impression: Accelerated hypertension, HTN (hypertension), Chest pain Disposition: HOME SELF-CARE Condition: Fair Instructions (If sedation given, give patient instructions): Hypertension (ED) Additional Instructions: Please vital blood pressure at home. Please follow with primary care physician regarding adjustments and blood pressure medication. Is patient prescribed a controlled substance at d/c from ED?: No Referrals: Nonstaff,Physician [Primary Care Provider] - 1-2 days Julian Titus MD [REFERRING] - 1-2 days Time of Disposition: 00:48
--- NOTE | 2019-01-10 23:27 | CT ---
EXAM: CT Head Without Intravenous Contrast CLINICAL HISTORY: ITS.REASON CT Reason: Neuro Deficits TECHNIQUE: Axial computed tomography images of the head/brain without intravenous contrast. CTDI is 49 mGy and DLP is 1123 mGy-cm. This CT exam was performed using one or more of the following dose reduction techniques: automated exposure control, adjustment of the mA and/or kV according to patient size, and/or use of iterative reconstruction technique. COMPARISON: CT head 05/01/18 FINDINGS: Brain: No hemorrhage, large hypodensity, or mass effect. Ventricles: No hydrocephalus. Bones/joints: Unremarkable. Soft tissues: Unremarkable. Sinuses: Unremarkable. Mastoid air cells: Clear. IMPRESSION: No acute hemorrhage, hydrocephalus, or mass effect.
--- NOTE | 2019-01-10 23:33 | XR ---
EXAM: XR Chest, 2 Views CLINICAL HISTORY: ITS.REASON XR Reason: altered mental status TECHNIQUE: Frontal and lateral views of the chest. COMPARISON: Chest x-ray 12/15/18 IMPRESSION: Normal heart size. Tortuous aorta. No consolidation or pleural effusion.
[2019-01-11 00:16] LABS: Anisocytosis Slight; Basophils % (A) 1 %; Eosinophils # (A) 0.1 k/uL (0-0.7); Eosinophils % (A) 3 %; HGB 11.7 gm/dL (13.0-17.5); Lymphocytes # (A) 0.7 k/uL (1.0-4.8); Lymphocytes % (A) 19 %; MCH 28.6 pg (25.0-35.0); MCHC 31.7 g/dL (31.0-37.0); Mean Platelet Volume 6.4; Monocytes # (A) 0.2 k/uL (0-1.0); Monocytes % (A) 7 %; Neutrophils # (A) 2.5 k/uL (1.3-7.7); Neutrophils % (A) 69 %; Platelet Count 269 k/uL (150-450); RBC 4.11 m/uL (4.30-5.90); RDW 16.2 % (11.5-15.5); WBC 3.7 k/uL (3.8-10.6)
[2019-01-11 00:21] LABS: INR 0.9 (<1.2); Partial Thromboplastin Time 26.5 sec (22.0-30.0); Prothrombin Time 10.1 sec (9.0-12.0)
[2019-01-11] MEDS ORDERED: MORPHINE SULFATE 4 MG/ML SYRINGE IVP STA (00:21)
[2019-01-11 00:24] LABS: Creatine Kinase 83 U/L (55-170)
[2019-01-11 00:28] LABS: ALT 12 U/L (21-72); AST 15 U/L (17-59); Albumin 4.3 g/dL (3.5-5.0); Alkaline Phosphatase 84 U/L (38-126); Anion Gap 9 mmol/L; Blood Urea Nitrogen 9 mg/dL (9-20); Calcium 9.3 mg/dL (8.4-10.2); Carbon Dioxide 27 mmol/L (22-30); Chloride 101 mmol/L (98-107); Glucose 148 mg/dL (74-99); Potassium 4.6 mmol/L (3.5-5.1); Sodium 137 mmol/L (137-145); Total Bilirubin 0.4 mg/dL (0.2-1.3); Total Protein 7.1 g/dL (6.3-8.2)
[2019-01-11 00:37] LABS: Creatine Kinase MB 1.1 ng/mL (0.0-2.4); Troponin I <0.012 ng/mL (0.000-0.034)
[2019-01-11] MEDS ORDERED: ASPIRIN 325 MG TAB PO STA (00:50)
[2019-01-11 01:30] VITALS: BP 156/90; PULSE 81; RESP 18; TEMP 97.9
== END 2019-01-11 01:47 | disposition home or self-care (01) ==
LOC: EC 22:43
DX: I10 Essential (primary) hypertension (principal); R07.89 Other chest pain; M25.512 Pain in left shoulder; R20.0 Anesthesia of skin; I25.119 Atherosclerotic heart disease of native coronary artery with unspecified angina pectoris; M19.90 Unspecified osteoarthritis, unspecified site; M54.5 Low back pain; G89.29 Other chronic pain; Z87.891 Personal history of nicotine dependence; Z86.718 Personal history of other venous thrombosis and embolism; Z79.82 Long term (current) use of aspirin; Z79.891 Long term (current) use of opiate analgesic; Z79.899 Other long term (current) drug therapy; Z88.6 Allergy status to analgesic agent; Z95.5 Presence of coronary angioplasty implant and graft
CPT/HCPCS: 36415; 93005; 80053; 82550; 82553; 84484; 85025; 85610; 85730; 71046; 70450; 99285; 96374; 96361; J2270

== ENCOUNTER 2019-01-31 23:33 | Emergency (ER) | payer MEDICARE ==
[2019-01-31 23:41] VITALS: RESP 16; TEMP 97.9
[2019-01-31] MEDS ORDERED: cloNIDine HCL 0.1 MG TAB PO STA (23:47)
--- NOTE | 2019-01-31 23:47 | ED ---
General Adult HPI - General Chief complaint: Recheck/Abnormal Lab/Rx Stated complaint: High BP Time Seen by Provider: 01/31/19 23:45 Source: patient, EMS Mode of arrival: EMS Limitations: no limitations - History of Present Illness Initial comments: Salomon is a 63-year-old male with history of hypertension who presents the emergency department today for evaluation of high blood pressure. Patient reports that this evening he was watching TV when he began to feel somewhat lightheaded which he has experienced in the past when his blood pressure is very high. He checked his blood pressure and noted that it was significantly elevated greater than 200/100 at which time he took a repeat dose of carvedilol and then came to the emergency department for evaluation. Patient denies any headache, vision changes, chest pain or shortness of breath. He does feel some aching and tingling in his right arm which he has experienced in the past and follows with neurosurgery with whom he had a cervical fusion in the fall. - Related Data Home Medications Medication Instructions Recorded Confirmed Aspirin 81 mg PO DAILY 01/21/17 01/10/19 Carvedilol 25 mg PO BID 01/21/17 01/10/19 Fluticasone Nasal [place] [Flonase 1 spray EA NOSTRIL BID 04/20/17 01/10/19 Nasal [place]] Morphine Sulfate ER [Ms Contin] 30 mg PO TID 10/10/17 01/10/19 tiZANidine [Zanaflex] 4 mg PO TID 02/26/18 01/10/19 oxyCODONE HCL 15 mg PO TID PRN 08/01/18 01/10/19 Diazepam [Valium] 10 mg PO HS 12/15/18 01/10/19 Previous Rx's Medication Instructions Recorded Atorvastatin [Lipitor] 80 mg PO HS #30 tab 10/12/17 Prasugrel [Effient] 10 mg PO DAILY #30 tab 10/12/17 Lisinopril [Zestril] 5 mg PO HS #30 tab 10/13/17 Ondansetron [Zofran ODT] 4 mg PO Q8HR PRN #10 tab 07/02/18 Famotidine [Pepcid] 20 mg PO DAILY #30 tablet 12/02/18 Allergies Allergy/AdvReac Type Severity Reaction Status Date / Time ibuprofen [From Motrin] Allergy Rash/Hives Verified 01/10/19 23:09 ketorolac tromethamine Allergy Rash/Hives Verified 01/10/19 23:09 [From Toradol] Review of Systems ROS Statement: Those systems with pertinent positive or pertinent negative responses have been documented in the HPI. ROS Other: All systems not noted in ROS Statement are negative. Past Medical History Past Medical History: Coronary Artery Disease (CAD), Chest Pain / Angina, Deep Vein Thrombosis (DVT), GERD/Reflux, Hyperlipidemia, Hypertension, Osteoarthritis (OA), Thyroid Disorder Additional Past Medical History / Comment(s): 11/24/17 EGD/colonoscopy which pt states showed, gastritis, small hiatal hernia and diverticular dx, pt states years ago he had PUD, chronic low back pain, chronic pain syndrome, migraines, DVT L arm, numbness/tingling bilateral lower legs, bilateral past R hand fracture, arthritis multiple joints, hyperthyroid, sinus problems. History of Any Multi-Drug Resistant Organisms: None Reported Past Surgical History: Back Surgery, Cholecystectomy, Heart Catheterization With Stent, Orthopedic Surgery Additional Past Surgical History / Comment(s): EGDs/colonoscopies with last time being 11/24/17, multiple low back surgeries, bilateral arm and bilateral thigh surgeries for brown recluse spider bites with infection, morphine pain pump insertion and removal due to infection, PCI with stents, L rotator cuff repair, L knee arthroscopy, cervical fusion/cage, R cataract removal. Past Anesthesia/Blood Transfusion Reactions: No Reported Reaction Additional Past Anesthesia/Blood Transfusion Reaction / Comment(s): Pt states after cervical fusion he "" in the recovery room but does not know cause- he was"gone for 8 minutes" and states he was resusitated. Pt recieved blood after back surgery and tolerated it well. Date of Last Stent Placement:: 10/11/17 Past Psychological History: No Psychological Hx Reported Smoking Status: Former smoker Past Alcohol Use History: None Reported Past Drug Use History: None Reported - Past Family History Father Additional Family Medical History / Comment(s): Father had back problems. He lived to be 82 yrs old. Mother Family Medical History: Hypertension, Myocardial Infarction ([place]) Additional Family Medical History / Comment(s): Mother of a [place] at the age of 55yrs. Brother(s) Family Medical History: Cancer Additional Family Medical History / Comment(s): Leukemia General Exam - General Exam Comments Initial Comments: Physical Exam GENERAL: Patient is well-developed and well-nourished. Patient is nontoxic and well-hydrated and is in no distress. HENT: Normocephalic, Atraumatic. EYES: PERRL, EOMI PULMONARY: Unlabored respirations. No audible rales rhonchi or wheezing was noted. CARDIOVASCULAR: There is a regular rate and rhythm without any murmurs gallops or rubs. ABDOMEN: Soft and nontender with normal bowel sounds. SKIN: Skin is clear with no lesions or rashes and otherwise unremarkable. Well healed scars on bilateral arms due to dog bite injury >15 years ago : Deferred NEUROLOGIC: Patient is alert and oriented x3. Moving all extremities spontaneously MUSCULOSKELETAL: Normal extremities with adequate strength and full range of motion. No lower extremity swelling or edema. No calf tenderness. PSYCHIATRIC: Normal psychiatric evaluation. Limitations: no limitations Limitations: no limitations Course Vital Signs 01/31/19 02/01/19 02/01/19 23:38 00:16 03:10 Temperature 97.9 F Pulse Rate 84 88 78 Respiratory 16 16 16 Rate Blood Pressure 186/124 174/113 169/106 O2 Sat by Pulse 99 98 Oximetry 02/01/19 05:07 Temperature Pulse Rate 78 Respiratory 16 Rate Blood Pressure 163/99 O2 Sat by Pulse 99 Oximetry - Reevaluation(s) Reevaluation #1: Patient was reevaluated, blood pressure is improved the patient states he is feeling lightheaded. A CT head was ordered 02/01/19 03:55 Medical Decision Making - Medical Decision Making The patient was seen and evaluated patient concerned about discomfort in his right arm and hypertension sign patient has been seen and evaluated for this exact problem less than one month prior patient does have very poorly controlled hypertension Abscess evaluation did reveal a negative head CT normal EKG is a normal EKG today Discomfort in right arm is consistent with paresthesias. Patient has aching in the entire arm with pierced seizures of the index and middle finger consistent with his previous complaints The patient was treated with Catapres, multiple attempts were made at IV access. Patient screaming in pain due to IV access attempts. Decision was made to discontinue attempts at IV access is causing the patient extreme stress. Will treat hypertension with by mouth and IM medications. Head CT with no acute findings Patient's blood pressure improving after Catapres patient much more relaxed at this time. 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 Patient's purse understanding of this. All questions pertaining care were answered patient was discharged home in stable condition Disposition Clinical Impression: Hypertension Disposition: HOME SELF-CARE Condition: Good Instructions (If sedation given, give patient instructions): Hypertension (ED) Is patient prescribed a controlled substance at d/c from ED?: No Referrals: Nonstaff,Physician [Primary Care Provider] - 1-2 days
[2019-02-01] MEDS ORDERED: MORPHINE SULFATE 4 MG/ML SYRINGE IM STA (00:45)
[2019-02-01] MEDS ORDERED: ENALAPRILAT 1.25 MG/ML 1 ML VIAL IVP STA (00:47)
[2019-02-01] MEDS ORDERED: hydrALAZINE HCL 50 MG TAB PO STA (01:42)
[2019-02-01 03:12] VITALS: PULSE 78
[2019-02-01] MEDS ORDERED: cloNIDine HCL 0.2 MG TAB PO STA (04:00)
--- NOTE | 2019-02-01 04:31 | CT ---
EXAM: CT Head Without Intravenous Contrast CLINICAL HISTORY: ITS.REASON CT Reason: lightheaded TECHNIQUE: Axial computed tomography images of the head/brain without intravenous contrast. CTDI is 49 mGy and DLP is 1178 mGy-cm. This CT exam was performed using one or more of the following dose reduction techniques: automated exposure control, adjustment of the mA and/or kV according to patient size, and/or use of iterative reconstruction technique. COMPARISON: CT head 01/10/19 FINDINGS: Brain: No hemorrhage, large hypodensity, or mass effect. Ventricles: No hydrocephalus. Bones/joints: Unremarkable. Soft tissues: Unremarkable. Sinuses: Unremarkable. Mastoid air cells: Clear. IMPRESSION: No acute hemorrhage, hydrocephalus, or mass effect.
[2019-02-01 05:07] VITALS: BP 163/99
== END 2019-02-01 05:42 | disposition home or self-care (01) ==
LOC: EC 23:33
DX: I10 Essential (primary) hypertension (principal); R20.2 Paresthesia of skin; M79.601 Pain in right arm; R42 Dizziness and giddiness; I25.119 Atherosclerotic heart disease of native coronary artery with unspecified angina pectoris; M19.90 Unspecified osteoarthritis, unspecified site; G89.29 Other chronic pain; Z87.891 Personal history of nicotine dependence; Z88.6 Allergy status to analgesic agent; Z79.51 Long term (current) use of inhaled steroids; Z79.82 Long term (current) use of aspirin; Z79.891 Long term (current) use of opiate analgesic; Z79.899 Other long term (current) drug therapy; Z95.5 Presence of coronary angioplasty implant and graft; Z98.1 Arthrodesis status; Z98.890 Other specified postprocedural states; Z87.828 Personal history of other (healed) physical injury and trauma; Z82.49 Family history of ischemic heart disease and other diseases of the circulatory system; Z53.8 Procedure and treatment not carried out for other reasons
CPT/HCPCS: 93005; 70450; 99284; 96372; J2270

== ENCOUNTER 2019-02-05 16:45 | Emergency (ER) | payer MEDICARE ==
[2019-02-05 16:57] VITALS: RESP 18; TEMP 98.3
[2019-02-05] MEDS: cloNIDine HCL 0.2 MG TAB PO STA ×2 (17:00→17:02)
[2019-02-05] MEDS ORDERED: cloNIDine HCL 0.1 MG TAB PO STA (17:03)
--- NOTE | 2019-02-05 17:05 | ED ---
General Adult HPI - General Stated complaint: Hypertensive Time Seen by Provider: 02/05/19 16:51 Source: patient, EMS, RN notes reviewed Mode of arrival: EMS Limitations: no limitations - History of Present Illness Initial comments: 63-year-old male presents emergency Department with chief complaint of hypertension. Patient states his been having issues with his blood pressure since his sulphate tester to come off his lisinopril. Patient states that he takes carvedilol twice daily. Patient states his blood pressure is elevated earlier. Patient did take a second dose today and has improved since being transported to emergency room. Denies any current chest pain no nausea vomiting diarrhea constipation. Patient offers no other complaints. - Related Data Home Medications Medication Instructions Recorded Confirmed Aspirin 81 mg PO DAILY 01/21/17 01/10/19 Carvedilol 25 mg PO BID 01/21/17 01/10/19 Fluticasone Nasal [place] [Flonase 1 spray EA NOSTRIL BID 04/20/17 01/10/19 Nasal [place]] Morphine Sulfate ER [Ms Contin] 30 mg PO TID 10/10/17 01/10/19 tiZANidine [Zanaflex] 4 mg PO TID 02/26/18 01/10/19 oxyCODONE HCL [oxyCODONE HCL (IR)] 15 mg PO TID PRN 08/01/18 01/10/19 Diazepam [Valium] 10 mg PO HS 12/15/18 01/10/19 Previous Rx's Medication Instructions Recorded Atorvastatin [Lipitor] 80 mg PO HS #30 tab 10/12/17 Prasugrel [Effient] 10 mg PO DAILY #30 tab 10/12/17 Lisinopril [Zestril] 5 mg PO HS #30 tab 10/13/17 Ondansetron [Zofran ODT] 4 mg PO Q8HR PRN #10 tab 07/02/18 Famotidine [Pepcid] 20 mg PO DAILY #30 tablet 12/02/18 Allergies Allergy/AdvReac Type Severity Reaction Status Date / Time ibuprofen [From Motrin] Allergy Rash/Hives Verified 01/10/19 23:09 ketorolac tromethamine Allergy Rash/Hives Verified 01/10/19 23:09 [From Toradol] Review of Systems ROS Statement: Those systems with pertinent positive or pertinent negative responses have been documented in the HPI. ROS Other: All systems not noted in ROS Statement are negative. Past Medical History Past Medical History: Coronary Artery Disease (CAD), Chest Pain / Angina, Deep Vein Thrombosis (DVT), GERD/Reflux, Hyperlipidemia, Hypertension, Osteoarthritis (OA), Thyroid Disorder Additional Past Medical History / Comment(s): 11/24/17 EGD/colonoscopy which pt states showed, gastritis, small hiatal hernia and diverticular dx, pt states years ago he had PUD, chronic low back pain, chronic pain syndrome, migraines, DVT L arm, numbness/tingling bilateral lower legs, bilateral past R hand fracture, arthritis multiple joints, hyperthyroid, sinus problems. History of Any Multi-Drug Resistant Organisms: None Reported Past Surgical History: Back Surgery, Cholecystectomy, Heart Catheterization With Stent, Orthopedic Surgery Additional Past Surgical History / Comment(s): EGDs/colonoscopies with last time being 11/24/17, multiple low back surgeries, bilateral arm and bilateral thigh surgeries for brown recluse spider bites with infection, morphine pain pump insertion and removal due to infection, PCI with stents, L rotator cuff repair, L knee arthroscopy, cervical fusion/cage, R cataract removal. Past Anesthesia/Blood Transfusion Reactions: No Reported Reaction Additional Past Anesthesia/Blood Transfusion Reaction / Comment(s): Pt states after cervical fusion he "" in the recovery room but does not know cause- he was"gone for 8 minutes" and states he was resusitated. Pt recieved blood after back surgery and tolerated it well. Date of Last Stent Placement:: 10/11/17 Past Psychological History: No Psychological Hx Reported Smoking Status: Former smoker Past Alcohol Use History: None Reported Past Drug Use History: None Reported - Past Family History Father Additional Family Medical History / Comment(s): Father had back problems. He lived to be 82 yrs old. Mother Family Medical History: Hypertension, Myocardial Infarction ([place]) Additional Family Medical History / Comment(s): Mother of a [place] at the age of 55yrs. Brother(s) Family Medical History: Cancer Additional Family Medical History / Comment(s): Leukemia General Exam Limitations: no limitations General appearance: alert, in no apparent distress Head exam: Present: atraumatic, normocephalic, normal inspection Neck exam: Present: normal inspection. Absent: tenderness, meningismus, lymphadenopathy Respiratory exam: Present: normal lung sounds bilaterally. Absent: respiratory distress, wheezes, rales, rhonchi, stridor Cardiovascular Exam: Present: regular rate, normal rhythm, normal heart sounds. Absent: systolic murmur, diastolic murmur, rubs, gallop, clicks Neurological exam: Present: alert, oriented X3, CN II-XII intact Skin exam: Present: warm, dry, intact, normal color. 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 Patient's blood pressure is improved. Patient EKG is unremarkable he has no chest pain. Patient will be discharged she has a follow- up appointment in 2 days with his sulphate tester advise discussed medication adjustment. Disposition Clinical Impression: Hypertension Disposition: HOME SELF-CARE Condition: Stable Instructions (If sedation given, give patient instructions): Hypertension (ED) Additional Instructions: Please return to the Emergency Department if symptoms worsen or any other concerns. Is patient prescribed a controlled substance at d/c from ED?: No Referrals: Nonstaff,Physician [REFERRING] - 1-2 days Time of Disposition: 17:05
[2019-02-05 17:29] VITALS: BP 147/98; PULSE 70
== END 2019-02-05 17:28 | disposition home or self-care (01) ==
LOC: EC 16:45
DX: I10 Essential (primary) hypertension (principal); I25.119 Atherosclerotic heart disease of native coronary artery with unspecified angina pectoris; Z79.82 Long term (current) use of aspirin; Z79.02 Long term (current) use of antithrombotics/antiplatelets; Z79.51 Long term (current) use of inhaled steroids; Z79.899 Other long term (current) drug therapy; Z88.6 Allergy status to analgesic agent; Z87.891 Personal history of nicotine dependence; Z95.5 Presence of coronary angioplasty implant and graft; Z86.718 Personal history of other venous thrombosis and embolism; Z98.1 Arthrodesis status
CPT/HCPCS: 93005; 99284

== ENCOUNTER 2019-02-07 17:18 | Observation (INO) | payer MEDICARE ==
[2019-02-07] MEDS ORDERED: NITROGLYCERIN OINT 1 INCH/GM PACKET TOPICAL STA (17:37)
[2019-02-07] MEDS ORDERED: ASPIRIN 81 MG PO STA (17:37)
[2019-02-07] MEDS ORDERED: ONDANSETRON 4 MG/2 ML VIAL IVP STA (17:39)
[2019-02-07] MEDS ORDERED: LABETALOL SYRINGE 5 MG/ML IVP STA (17:39)
--- NOTE | 2019-02-07 18:19 | XR ---
EXAMINATION TYPE: XR chest 2V DATE OF EXAM: 02/07/2019 COMPARISON: 01/10/2019 HISTORY: Chest pain TECHNIQUE: Frontal and lateral views of the chest are obtained. FINDINGS: There is no heart failure nor confluent pneumonic infiltrate. Costophrenic angles are heidy r. There are chest leads. Bony thorax is intact. IMPRESSION: No active cardiopulmonary disease. Normal heart. No change.
--- NOTE | 2019-02-07 18:37 | ED ---
Chest Pain HPI - General Chief Complaint: Chest Pain Stated Complaint: hypertension/chest pressure Time Seen by Provider: 02/07/19 17:31 Source: patient Mode of arrival: EMS Limitations: no limitations - History of Present Illness Initial Comments: This 63-year-old -English male presents with a complaint of some left- sided chest pain. He describes this as a pressure like somebody was standing on his chest. He states that it is fairly severe at times. It does radiate into his left shoulder and arm. It is associated with some exertional shortness of breath. He denies any diaphoresis or palpitations. He does relate a history of previous coronary artery disease and has received 3 stents with the last one being approximately one year ago. He has not had any recent stress test. He denies any leg pain or swelling or history of DVT or PE. He also relates that his blood pressure was fairly elevated at home at approximately 225/113. He does complain of some nausea as well. No other complaints or modifying factors. - Related Data Home Medications Medication Instructions Recorded Confirmed Aspirin 81 mg PO DAILY 01/21/17 02/07/19 Carvedilol 25 mg PO BID 01/21/17 02/07/19 Fluticasone Nasal [place] [Flonase 1 spray EA NOSTRIL BID 04/20/17 02/07/19 Nasal [place]] Morphine Sulfate ER [Ms Contin] 30 mg PO TID 10/10/17 02/07/19 tiZANidine [Zanaflex] 4 mg PO TID 02/26/18 02/07/19 oxyCODONE HCL [oxyCODONE HCL (IR)] 15 mg PO TID PRN 08/01/18 02/07/19 Diazepam [Valium] 10 mg PO HS 12/15/18 02/07/19 Previous Rx's Medication Instructions Recorded Atorvastatin [Lipitor] 80 mg PO HS #30 tab 10/12/17 Prasugrel [Effient] 10 mg PO DAILY #30 tab 10/12/17 Famotidine [Pepcid] 20 mg PO DAILY #30 tablet 12/02/18 cloNIDine HCL [Catapres] 0.1 mg PO BID #10 tab 02/05/19 Allergies Allergy/AdvReac Type Severity Reaction Status Date / Time ibuprofen [From Motrin] Allergy Rash/Hives Verified 02/07/19 18:16 ketorolac tromethamine Allergy Rash/Hives Verified 02/07/19 18:16 [From Toradol] Review of Systems ROS Statement: Those systems with pertinent positive or pertinent negative responses have been documented in the HPI. ROS Other: All systems not noted in ROS Statement are negative. Past Medical History Past Medical History: Coronary Artery Disease (CAD), Chest Pain / Angina, Deep Vein Thrombosis (DVT), GERD/Reflux, Hyperlipidemia, Hypertension, Osteoarthritis (OA), Thyroid Disorder Additional Past Medical History / Comment(s): 11/24/17 EGD/colonoscopy which pt states showed, gastritis, small hiatal hernia and diverticular dx, pt states years ago he had PUD, chronic low back pain, chronic pain syndrome, migraines, DVT L arm, numbness/tingling bilateral lower legs, bilateral past R hand fracture, arthritis multiple joints, hyperthyroid, sinus problems. History of Any Multi-Drug Resistant Organisms: None Reported Past Surgical History: Back Surgery, Cholecystectomy, Heart Catheterization With Stent, Orthopedic Surgery Additional Past Surgical History / Comment(s): EGDs/colonoscopies with last time being 11/24/17, multiple low back surgeries, bilateral arm and bilateral thigh surgeries for brown recluse spider bites with infection, morphine pain pump insertion and removal due to infection, PCI with stents, L rotator cuff repair, L knee arthroscopy, cervical fusion/cage, R cataract removal. Past Anesthesia/Blood Transfusion Reactions: No Reported Reaction Additional Past Anesthesia/Blood Transfusion Reaction / Comment(s): Pt states after cervical fusion he "" in the recovery room but does not know cause- he was"gone for 8 minutes" and states he was resusitated. Pt recieved blood after back surgery and tolerated it well. Date of Last Stent Placement:: 10/11/17 Past Psychological History: No Psychological Hx Reported Smoking Status: Former smoker Past Alcohol Use History: None Reported Past Drug Use History: None Reported - Past Family History Father Additional Family Medical History / Comment(s): Father had back problems. He lived to be 82 yrs old. Mother Family Medical History: Hypertension, Myocardial Infarction ([place]) Additional Family Medical History / Comment(s): Mother of a [place] at the age of 55yrs. Brother(s) Family Medical History: Cancer Additional Family Medical History / Comment(s): Leukemia General Exam - General Exam Comments Initial Comments: GENERAL: The patient is well nourished and well hydrated. VITAL SIGNS: Heart rate, blood pressure, respiratory rate reviewed as recorded in nurse's notes. EYES: Pupils are round and reactive. Extraocular movements are intact. No conjunctival / lid redness or swelling. ENT: No external evidence of injury, swelling, or ecchymosis. Airway is patent. Throat is clear. NECK: Nontender. No swelling or evidence of injury. No subcutaneous emphysema. Trachea is midline. No thyroid mass. HEART: Regular rate and rhythm. Good peripheral pulses. LUNGS/CHEST: Breath sounds clear and equal bilaterally. No rales, rhonchi, or wheezes. No ecchymosis, subcutaneous emphysema, or tenderness. ABDOMEN: Abdomen soft without tenderness. No palpable masses or organomegaly. No peritoneal signs. No abdominal wall swelling or ecchymosis. EXTREMITIES: No extremity tenderness. Normal muscle tone and function. No thoracolumbar tenderness. NEUROLOGIC: Sensation is grossly intact. Cranial nerve exam reveals face is symmetrical, tongue is midline, speech is clear. SKIN: No abrasions or ecchymosis is noted. No induration or masses noted. PSYCHIATRIC: Alert and oriented. Appropriate behavior and judgment. Limitations: no limitations Course Vital Signs 02/07/19 02/07/19 17:26 18:01 Temperature 97.8 F Pulse Rate 76 73 Respiratory 16 16 Rate Blood Pressure 168/108 142/98 O2 Sat by Pulse 97 97 Oximetry Chest Pain MDM - MDM The patient was seen and examined. All diagnostics were reviewed. An EKG was done and this shows a normal sinus rhythm at a rate of 77. There is no acute ST-T wave changes identified. The NC intervals 160, QRS duration 90, and the QTC intervals 436. An IV is established and he is placed on a court recording monitor. No ectopy is identified. The patient receives aspirin as well as Nitropaste. He also receives 20 mg of labetalol IV for hypertension. His blood pressure does come down nicely. The cardiac profile labs are all essentially within normal limits. The chest x-ray does not show any acute abnormalities. He is still feeling somewhat nauseated on recheck after the Zofran and is ordered some Reglan intravenously. It is felt as though he benefit from admission to rule out the possibility acute coronary syndrome. He is agreeable. Case is discussed with internal medicine and patient will be admitted as a short stay admission. Disposition Clinical Impression: Chest pain, Exertional dyspnea, Unstable angina, Hypertensive crisis, Nausea Disposition: ADMITTED IP TO THIS HOSP Condition: Fair Is patient prescribed a controlled substance at d/c from ED?: No Referrals: Nonstaff,Physician [Primary Care Provider] - 1-2 days Time of Disposition: 20:18 Decision Date: 02/07/19 Decision Time: 20:18
[2019-02-07 19:14] LABS: Anisocytosis Slight; Basophils % (A) 1 %; Eosinophils # (A) 0.1 k/uL (0-0.7); Eosinophils % (A) 2 %; HCT 39.7 % (39.0-53.0); HGB 12.6 gm/dL (13.0-17.5); Lymphocytes # (A) 0.8 k/uL (1.0-4.8); Lymphocytes % (A) 29 %; MCH 28.9 pg (25.0-35.0); MCHC 31.8 g/dL (31.0-37.0); MCV 90.8 fL (80.0-100.0); Mean Platelet Volume 5.9; Monocytes # (A) 0.2 k/uL (0-1.0); Monocytes % (A) 6 %; Neutrophils # (A) 1.7 k/uL (1.3-7.7); Neutrophils % (A) 61 %; Platelet Count 267 k/uL (150-450); RBC 4.38 m/uL (4.30-5.90); RDW 16.1 % (11.5-15.5); WBC 2.8 k/uL (3.8-10.6)
[2019-02-07 19:26] LABS: Partial Thromboplastin Time 26.9 sec (22.0-30.0); Prothrombin Time 10.5 sec (9.0-12.0)
[2019-02-07 19:29] LABS: ALT 21 U/L (21-72); AST 15 U/L (17-59); Albumin 4.2 g/dL (3.5-5.0); Alkaline Phosphatase 70 U/L (38-126); Anion Gap 7 mmol/L; Blood Urea Nitrogen 10 mg/dL (9-20); Calcium 9.3 mg/dL (8.4-10.2); Carbon Dioxide 25 mmol/L (22-30); Chloride 104 mmol/L (98-107); Glucose 103 mg/dL (74-99); Magnesium 1.9 mg/dL (1.6-2.3); Potassium 4.6 mmol/L (3.5-5.1); Sodium 136 mmol/L (137-145); Total Bilirubin 0.6 mg/dL (0.2-1.3)
[2019-02-07] MEDS ORDERED: METOCLOPRAMIDE 5 MG/ML 2 ML VIAL IVP STA (20:14)
[2019-02-07] MEDS ORDERED: NITROGLYCERIN SL TABS 0.4 MG TAB SUBLINGUAL PRN (20:23)
[2019-02-07] MEDS ORDERED: LABETALOL 5 MG/ML VIAL MDV IVP PRN (20:28)
[2019-02-07] MEDS ORDERED: MORPHINE SULFATE 2 MG/ML SYRINGE IVP STA (20:39)
[2019-02-07] MEDS ORDERED: ATORVASTATIN 80 MG TAB PO SCH (21:00)
[2019-02-07] MEDS ORDERED: DIAZEPAM 5 MG TAB PO SCH (21:00)
--- NOTE | 2019-02-07 21:56 | P.HPIM ---
History of Present Illness H&P Date: 02/07/19 The patient is a 63-year-old male with a PMH of CAD s/p 3 stents w/ last LHC 11/08 (revealing patent stents) w/ negative dobutamine stress echo 05/10, HTN, HLD, and gastritis and GERD (s/p EGD 12/11) presented to the ED for sudden onset of L sided pressure like chest pain at 12:30 pm earlier today. The patient notes that he was in his usual state of health when he developed a sharp and pressure like L pectoral chest pain w/ radiation to neck and L arm, 07/02, w/ associated SOB, nausea, diaphoresis, and palpitations with no alleviating or exacerbating factors. The pain gradually decreased in intensity to a 4/10 though he continues to have 2/10 L sided neck pain. The patient also notes that he took his BP at onset of his symptoms and it was 200s/90s. The patient notes that the pain is somewhat similar to his prior MIs. He otherwise denied fever, chills, cough, calf pain, recent travel, dizziness, vomiting, diarrhea, abdominal pain, constipation, or sick contacts. In the emergency room, the patient underwent a comprehensive workup with Troponin < 0.012, WBC 2.8, BUN 10, Creatinine 0.55, BNP 32, and platelet count 267. CXR was negative for acute abnormalities. EKG revealed NSR @ [address]-T wave changes noted. The patient's BP was 168/108 on admission with pulse 76, temp 97.8, SpO2 97% on RA. The patient was placed under observation for chest pain pending cardiology evaluation. Review of Systems Pertinent positives and negatives as discussed in HPI, a complete review of systems was performed and all other systems are negative. Past Medical History Past Medical History: Coronary Artery Disease (CAD), Chest Pain / Angina, COPD, Deep Vein Thrombosis (DVT), GERD/Reflux, Hyperlipidemia, Hypertension, Oste oarthritis (OA), Thyroid Disorder Additional Past Medical History / Comment(s): 11/24/17 EGD/colonoscopy which pt states showed, gastritis, small hiatal hernia and diverticular dx, pt states years ago he had PUD, chronic low back pain, chronic pain syndrome, migraines, DVT L arm, numbness/tingling bilateral lower legs, bilateral past R hand fracture, arthritis multiple joints, hyperthyroid, sinus problems. History of Any Multi-Drug Resistant Organisms: None Reported Past Surgical History: Back Surgery, Cholecystectomy, Heart Catheterization With Stent, Orthopedic Surgery Additional Past Surgical History / Comment(s): EGDs/colonoscopies with last time being 11/24/17, multiple low back surgeries, bilateral arm and bilateral thigh surgeries for brown recluse spider bites with infection, morphine pain pump insertion and removal due to infection, PCI with stents, L rotator cuff repair, L knee arthroscopy, cervical fusion/cage, R cataract removal. Past Anesthesia/Blood Transfusion Reactions: No Reported Reaction Additional Past Anesthesia/Blood Transfusion Reaction / Comment(s): Pt states after cervical fusion he "" in the recovery room but does not know cause- he was"gone for 8 minutes" and states he was resusitated. Pt recieved blood after back surgery and tolerated it well. Date of Last Stent Placement:: 10/11/17 Past Psychological History: No Psychological Hx Reported Additional Psychological History / Comment(s): He is fairly independent. He uses a walker to ambulate. Pt no longer drives. Smoking Status: Former smoker Past Alcohol Use History: None Reported Additional Past Alcohol Use History / Comment(s): Pt started smoking in 1973 and quit in 1984 Past Drug Use History: None Reported - Past Family History Father Family Medical History: No Reported History Additional Family Medical History / Comment(s): Father had back problems. He lived to be 82 yrs old. Mother Family Medical History: Hypertension, Myocardial Infarction ([place]) Additional Family Medical History / Comment(s): Mother of a [place] at the age of 55yrs. Brother(s) Family Medical History: Cancer, COPD Additional Family Medical History / Comment(s): Leukemia Medications and Allergies Home Medications Medication Instructions Recorded Confirmed Type Aspirin 81 mg PO DAILY 01/21/17 02/07/19 History Carvedilol 25 mg PO BID 01/21/17 02/07/19 History Fluticasone Nasal [place] [Flonase 1 spray EA NOSTRIL BID 04/20/17 02/07/19 Hist ory Nasal [place]] Morphine Sulfate ER [Ms Contin] 30 mg PO TID 10/10/17 02/07/19 History Atorvastatin [Lipitor] 80 mg PO HS #30 tab 10/12/17 02/07/19 Rx Prasugrel [Effient] 10 mg PO DAILY #30 tab 10/12/17 02/07/19 Rx tiZANidine [Zanaflex] 4 mg PO TID 02/26/18 02/07/19 History oxyCODONE HCL [oxyCODONE HCL (IR)] 15 mg PO TID PRN 08/01/18 02/07/19 History Famotidine [Pepcid] 20 mg PO DAILY #30 tablet 12/02/18 02/07/19 Rx Diazepam [Valium] 10 mg PO HS 12/15/18 02/07/19 History cloNIDine HCL [Catapres] 0.1 mg PO BID #10 tab 02/05/19 02/07/19 Rx Allergies Allergy/AdvReac Type Severity Reaction Status Date / Time ibuprofen [From Motrin] Allergy Rash/Hives Verified 02/07/19 21:29 ketorolac tromethamine Allergy Rash/Hives Verified 02/07/19 21:29 [From Toradol] Physical Exam Vitals: Vital Signs Temp Pulse Pulse Resp BP BP Pulse Ox 02/07/19 21:22 98.3 F 72 15 156/96 96 02/07/19 20:55 88 18 147/98 98 02/07/19 20:37 17 02/07/19 20:23 97 02/07/19 18:01 73 16 142/98 97 02/07/19 17:26 97.8 F 76 16 168/108 97 Intake and Output 02/07/19 02/07/19 02/07/19 06:59 14:59 22:59 Other: # Voids 1 Weight 79.379 kg General: non toxic, no distress, appears at stated age, normal weight Derm: no unusual rashes/lesions no unusual ecchymoses, warm, dry Head: atraumatic, normocephalic, symmetric Eyes: EOMI, no lid lag, anicteric sclera, pupils equal round reactive to light ENT: Nose and ears atraumatic, no thrush, no pharyngeal erythema Neck: No thyromegaly, no cervical lymphadenopathy, trachea midline, supple Mouth: no lip lesion, mucus membranes moist Cardiovascular: S1S2 reg, no murmur, positive posterior tibial pulse bilateral, no edema, capillary refill less than 2 seconds Lungs: CTA bilateral, no rhonchi, no rales , no accessory muscle use Abdominal: soft, nontender to palpation, no guarding, no appreciable organomegaly, normal bowel sounds Ext: no gross muscle atrophy, muscle strength 5 out of 5 in all 4 extremities grossly, no contractures, Neuro: CN II-XI grossly intact, light touch intact all 4 extremities, finger to nose within normal limits, Psych: Alert, oriented, appropriate affect Results CBC & Chem 7: 02/07/19 18:47 02/07/19 18:47 Labs: Abnormal Lab Results - Last 24 Hours (Table) 02/07/19 02/07/19 Range/Units 18:47 18:47 WBC 2.8 L (3.8-10.6) k/uL Hgb 12.6 L (13.0-17.5) gm/dL RDW 16.1 H (11.5-15.5) % Lymphocytes # 0.8 L (1.0-4.8) k/uL Sodium 136 L (137-145) mmol/L Creatinine 0.55 L (0.66-1.25) mg/dL Glucose 103 H (74-99) mg/dL AST 15 L (17-59) U/L Thrombosis Risk Factor Assmnt - Choose All That Apply Each Risk Factor Represents 2 Points: Age 61-74 years Each Risk Factor Represents 3 Points: History of DVT/PE Other congenital or acquired thrombophilia - If yes, enter type in comment: No Thrombosis Risk Factor Assessment Total Risk Factor Score: 5 Thrombosis Risk Factor Assessment Level: High Risk Assessment and Plan Plan: Chest pain, in light of hx of CAD s/p multiple stents, r/o ACS -Cardiology evaluation -Trend troponin, EKGs -C/w Aspirin, Plavix, Statin, BB -Nitro prn HTN -C/w home meds Clonidine and Carvidelol -Will start Lisinopril GERD -C/w Pepcid HLD -C/w Lipitor 80 mg qhs DVT//GI prophylaxis -Heparin -Pepcid The patient is admitted with an anticipated less than 2 midnight stay for evaluation of chest pain CODE STATUS:Full-Code Discussed with: Patient Anticipated discharge date: 02/08/[address]: Home A total of 45 minutes was spent on the care of this complex patient more than 50% of the time was spent in counseling and care coordination.
[2019-02-07] MEDS: FLUTICASONE 50MCG/SPRAY NASAL 16GM EA NOSTRIL SCH (22:44)
[2019-02-07] MEDS: cloNIDine HCL 0.1 MG TAB PO SCH (22:44)
[2019-02-07] MEDS: tiZANidine 4 MG TAB PO SCH (22:45)
[2019-02-07] MEDS: MORPHINE SULFATE ER 30 MG TABLET PO SCH (22:45)
[2019-02-08] MEDS: NITROGLYCERIN OINT 1 INCH/GM PACKET TOPICAL SCH ×3 (00:07→13:38)
[2019-02-08 06:42] LABS: Anisocytosis Slight; HCT 38.3 % (39.0-53.0); HGB 12.3 gm/dL (13.0-17.5); MCH 29.1 pg (25.0-35.0); MCHC 32.1 g/dL (31.0-37.0); MCV 90.9 fL (80.0-100.0); Mean Platelet Volume 5.7; Platelet Count 243 k/uL (150-450); RBC 4.21 m/uL (4.30-5.90); RDW 16.2 % (11.5-15.5); WBC 2.8 k/uL (3.8-10.6)
[2019-02-08 07:15] LABS: Anion Gap 5 mmol/L; Blood Urea Nitrogen 14 mg/dL (9-20); Carbon Dioxide 25 mmol/L (22-30); Chloride 109 mmol/L (98-107); Cholesterol 185 mg/dL (<200); Glucose 102 mg/dL (74-99); HDL Cholesterol 51 mg/dL (40-60); LDL Cholesterol,Calculated 99 mg/dL (0-99); Potassium 4.5 mmol/L (3.5-5.1); Sodium 139 mmol/L (137-145); Triglycerides 177 mg/dL (<150)
[2019-02-08] MEDS ORDERED: CARVEDILOL 12.5 MG TAB PO SCH (07:30)
[2019-02-08 07:40] VITALS: RESP 18
[2019-02-08] MEDS ORDERED: LISINOPRIL 20 MG TAB PO SCH (09:00)
[2019-02-08] MEDS ORDERED: PRASUGREL 10 MG TAB PO SCH (09:00)
[2019-02-08] MEDS ORDERED: FAMOTIDINE 20 MG TAB PO SCH (09:00)
[2019-02-08] MEDS ORDERED: ASPIRIN 325 MG TAB PO SCH (09:00)
[2019-02-08] MEDS: MORPHINE SULFATE ER 30 MG TABLET PO SCH ×2 (10:17→15:18)
[2019-02-08] MEDS ORDERED: DOBUTamine DRIP for NUC MED 500 MG in DEXTROSE/WATER 1 250ML.BAG IV ONE (10:35)
[2019-02-08] MEDS ORDERED: ATROPINE SULFATE 0.1 MG/ML 10ML SYRINGE ONE (11:43)
[2019-02-08] MEDS ORDERED: METOPROLOL TARTRATE 5 MG/5 ML VIAL IVP ONE (11:43)
[2019-02-08] MEDS: tiZANidine 4 MG TAB PO SCH ×2 (12:17→15:18)
[2019-02-08] MEDS: cloNIDine HCL 0.1 MG TAB PO SCH (12:17)
[2019-02-08] MEDS: FLUTICASONE 50MCG/SPRAY NASAL 16GM EA NOSTRIL SCH (12:22)
[2019-02-08] MEDS ORDERED: EZETIMIBE 10 MG TAB PO SCH (12:45)
--- NOTE | 2019-02-08 13:06 | ECHOS ---
STRESS ECHOCARDIOGRAM DOBUTAMINE STRESS ECHO DATE OF SERVICE: 02/08/2019 INDICATIONS: Chest pain. MEDICATIONS: BASELINE HEART RATE: 64 BASELINE BLOOD PRESSURE: 138/84 MAXIMUM HEART RATE: 148 MAXIMUM BLOOD PRESSURE: 248/107 85% MPHR: 134 100% MPHR: 158 METS: MAXIMUM STAGE REACHED: TOTAL EXERCISE TIME: CLINICAL INFORMATION: The patient was given dobutamine infusion according to the standard protocol. The patient also received atropine. Peak heart rate of 148 was achieved. Maximum blood pressure /107 mmHg was noted in the post recovery period. Patient was given Lopressor 5 mg IV. The patient did not complain of any chest pain during the test. Resting EKG shows normal sinus rhythm with normal VT interval and QRS duration and normal ST-T waves. No ST-segment depression suggestive of ischemia was noted. Occasional PVCs were noted. The baseline echocardiographic images reveals normal left ventricular chamber size with normal left ventricular systolic function. In the immediate postexercise period, normal increase in the wall thickness and contractility was noted. FINAL IMPRESSION: 1. This dobutamine stress echocardiographic study is negative for stress-induced ischemia. 2. At the peak dose of dobutamine and atropine infusion, patient complained of headache and his blood pressure was high, which was relieved with IV Lopressor. 3. The EKG portion of the stress test is not suggestive of ischemia. Occasional PVCs are noted. MMODL / IJN: [id number] /
--- NOTE | 2019-02-08 13:18 | CONS ---
CONSULTATION Mr. Johnson is a 63-year-old gentleman who is seen for the cardiac evaluation. This patient's medical records reviewed. The patient came to the emergency room with a complaint of left shoulder and arm pain and intermittent chest pain. The pain is either sharp, intermittent, coming and going. It was not associated with any symptoms of shortness of breath, nausea or vomiting. The pain did not last long. Because of the recurrent chest pain, he came to the hospital and was admitted. This patient has a known history of coronary artery disease with a prior history of a cardiac catheterization, stent to the LAD and diagonal branch as well as the right coronary artery. The patient's last catheterization was done in 2016, which was normal. Patient had a stress test done in April of 2018 was normal. The patient denies any significant exertional chest discomfort. She does have a history of hypertension, hyperlipidemia, osteoarthritis. Past medical history includes the patient had a EGD and colonoscopy done which showed evidence of a gastritis, history of a stress test done about a year ago, prior history of cardiac catheterization with a stent placement, back surgery as well as a colonoscopy. MEDICATIONS: Patient's home medications include Effient 10 mg daily, Lipitor 10 mg daily, Pepcid, Catapres 0.1 mg b.i.d., aspirin, Coreg 25 mg b.i.d. and morphine sulfate. PHYSICAL EXAMINATION: Physical examination at present reveals a 63-year-old gentleman who does not appear to be in any acute distress at present. In the emergency room, this patient's vital signs were stable. The patient's blood pressure is now 111/81 mmHg. His temperature is normal. Head/ENT examination is negative. Neck is supple. There is no increase in jugular venous pressure. Both the carotid pulses are felt. There is no bruit. Chest is symmetrical. HEART: The PMI is not felt. First and second heart sounds are normal. There is no evidence of any murmur. Lungs are clinically clear to auscultation and percussion. Abdomen is soft. Liver and spleen are not enlarged. Bowel sounds are heard. EXTREMITIES: Peripheral pulsations are 2+ EKG shows normal sinus rhythm without any acute ischemic changes. Cardiac enzymes are normal. FINAL IMPRESSION: 1. This patient's chest pain is suggestive of atypical anginal pain. EKGs and cardiac enzymes are normal. 2. Patient has a past history of coronary artery disease with multiple stents done in the past. The recent cardiac catheterization revealed evidence of patent stent. 3. History of high blood pressure and hyperlipidemia. RECOMMENDATIONS: Patient will be evaluated with a stress echo study. If the stress echocardiographic study is normal, patient can be discharged home. Patient's LDL level is 90. In view of that, I will add Zetia 10 mg daily. MMODL / IJN: [id number] /
--- NOTE | 2019-02-08 15:51 | P.DS ---
Providers Date of admission: 02/07/19 20:23 Expected date of discharge: 02/08/19 Attending physician: Willi Chase MD Consults: 02/07/19 20:23 Consult Physician Urgent Consulting Provider: Klaus Felipe Consult Reason/Comments: cp Do you want consulting provider notified?: Yes Primary care physician: Physician Nonstaff Hospital Course: 63-year-old male with a PMH of CAD s/p 3 stents w/ last LHC 11/08 (revealing patent stents) w/ negative dobutamine stress echo 05/10, HTN, HLD, and gastritis and GERD (s/p EGD 12/11) presented to the ED for sudden onset of L sided pressure like chest pain at 12:30 pm earlier today. The patient notes that he was in his usual state of health when he developed a sharp and pressure like L pectoral chest pain w/ radiation to neck and L arm, 8/10, w/ associated SOB, nausea, diaphoresis, and palpitations with no alleviating or exacerbating factors. The pain gradually decreased in intensity to a 4/10 though he continues to have 2/10 L sided neck pain. The patient also notes that he took his BP at onset of his symptoms and it was 200s/90s. The patient notes that the pain is somewhat similar to his prior MIs. He otherwise denied fever, chills, cough, calf pain, recent travel, dizziness, vomiting, diarrhea, abdominal pain, constipation, or sick contacts. In the emergency room, the patient underwent a comprehensive workup with Trop onin < 0.012, WBC 2.8, BUN 10, Creatinine 0.55, BNP 32, and platelet count 267. CXR was negative for acute abnormalities. EKG revealed NSR @ [address]-T wave changes noted. The patient's BP was 168/108 on admission with pulse 76, temp 97.8, SpO2 97% on RA. The patient was placed under observation for chest pain pending cardiology evaluation. Troponin was less than 0.0123 with EKG showing normal sinus rhythm. Cardiology was consulted and recommended stress echo. Stress echo was performed and was negative. Patient was cleared for discharge from cardiology standpoint. Patient seen and examined. No acute events overnight. Patient continues to complain gripping chest pain radiating to this left neck and left shoulder. As per RN reports, patient appears to be seeking IV narcotic medication last night. He denies any shortness of breath or palpitations. Patient reports that his blood pressure is always high at home, requesting adjustment in medications. General: [non toxic], [no distress], [appears at stated age] Derm: [warm], [dry] Head: [atraumatic], [normocephalic], [symmetric] Eyes: [EOMI], [no lid lag], [anicteric sclera] Mouth: [no lip lesion], [mucus membranes moist] Cardiovascular: [S1S2 reg], [no murmur], [positive posterior tibial pulse bilateral], Lungs: [CTA bilateral], [no rhonchi, no rales] , [no accessory muscle use] Abdominal: [soft], [ nontender to palpation], [no guarding], [no appreciable organomegaly] Ext: [no gross muscle atrophy], [no edema], [no contractures] Neuro: [no focal neuro deficits] Psych: [Alert], [oriented], [appropriate affect] Assessment and Plan 1. Chest pain 2. Hypertension 3. GERD 1. Troponin less than 0.013, EKG showing normal sinus rhythm, ACS ruled out. Cardiology consulted, recommend stress test. Stresses has been negative. Chest x-ray negative. Telemetry negative. Suspect that the patient might be seeking IV narcotic medications for his pain. Continue aspirin, Lipitor, Prasugrel. 2. BP 111/81. His blood pressure has been within normal limits since starting Coreg, clonidine, lisinopril. Advised compliance with BP meds. Will DC with prescription. 3. Pepcid Patient underwent stress test for chest pain, negative. Advised to continue same antihypertensive regimen. Follow-up PCP within [address] Go within 1 week. Pertinent Studies: Stress test, echo, chest x-ray Patient Condition at Discharge: Stable Plan - Discharge Summary Discharge Rx Participant: Yes New Discharge Prescriptions: New cloNIDine HCL [Catapres] 0.1 mg PO BID #60 tab Carvedilol [Coreg*] 12.5 mg PO BID-W/MEALS #60 tab Lisinopril [Zestril] 40 mg PO DAILY #60 tab Ezetimibe [Zetia] 10 mg PO DAILY #30 tab Continue Aspirin 81 mg PO DAILY Fluticasone Nasal [place] [Flonase Nasal [place]] 1 spray EA NOSTRIL BID Morphine Sulfate ER [Ms Contin] 30 mg PO TID Atorvastatin [Lipitor] 80 mg PO HS #30 tab Prasugrel [Effient] 10 mg PO DAILY #30 tab tiZANidine [Zanaflex] 4 mg PO TID oxyCODONE HCL [oxyCODONE HCL (IR)] 15 mg PO TID PRN PRN Reason: Breakthrough Pain Famotidine [Pepcid] 20 mg PO DAILY #30 tablet Diazepam [Valium] 10 mg PO HS Discontinued Carvedilol 25 mg PO BID cloNIDine HCL [Catapres] 0.1 mg PO BID #10 tab Discharge Medication List Aspirin 81 mg PO DAILY 01/21/17 [History] Fluticasone Nasal [place] [Flonase Nasal [place]] 1 spray EA NOSTRIL BID 04/20/17 [History] Morphine Sulfate ER [Ms Contin] 30 mg PO TID 10/10/17 [History] Atorvastatin [Lipitor] 80 mg PO HS #30 tab 10/12/17 [Rx] Prasugrel [Effient] 10 mg PO DAILY #30 tab 10/12/17 [Rx] tiZANidine [Zanaflex] 4 mg PO TID 02/26/18 [History] oxyCODONE HCL [oxyCODONE HCL (IR)] 15 mg PO TID PRN 08/01/18 [History] Famotidine [Pepcid] 20 mg PO DAILY #30 tablet 12/02/18 [Rx] Diazepam [Valium] 10 mg PO HS 12/15/18 [History] Carvedilol [Coreg*] 12.5 mg PO BID-W/MEALS #60 tab 02/08/19 [Rx] Ezetimibe [Zetia] 10 mg PO DAILY #30 tab 02/08/19 [Rx] Lisinopril [Zestril] 40 mg PO DAILY #60 tab 02/08/19 [Rx] cloNIDine HCL [Catapres] 0.1 mg PO BID #60 tab 02/08/19 [Rx] Follow up Appointment(s)/Referral(s): Nonstaff,Physician [Primary Care Provider] - 1-2 days Fannie Go MD [STAFF PHYSICIAN] - 1 Week Activity/Diet/Wound Care/Special Instructions: Diet: Cardiac Follow-up PCP within 1-2 days of discharge. Follow-up cardiology within 1 week of discharge. Take all medications as advised. Discharge Disposition: HOME SELF-CARE
[2019-02-08 16:00] VITALS: BP 118/72; PULSE 71; TEMP 97.7
--- NOTE | 2019-02-11 19:08 | ECHOF ---
Referral Reason:cp MEASUREMENTS -------- HEIGHT: 180.3 cm WEIGHT: 79.4 kg BP: 134/75 RVIDd: 3.4 cm (< 3.3) IVSd: 1.1 cm (0.6 - 1.1) LVIDd: 4.6 cm (3.9 - 5.3) LVPWd: 1.2 cm (0.6 - 1.1) IVSs: 1.5 cm LVIDs: 3.0 cm LVPWs: 1.6 cm LA Diam: 3.3 cm (2.7 - 3.8) LAESV Index (A-L): 30.73 ml/m Ao Diam: 3.1 cm (2.0 - 3.7) AV Cusp: 2.6 cm (1.5 - 2.6) MV EXCURSION: 15.488 mm (> 18.000) MV EF SLOPE: 65 mm/s (70 - 150) EPSS: 0.6 cm MV E Héctor: 0.73 m/s MV DecT: 273 ms MV A Héctor: 0.74 m/s MV E/A Ratio: 0.99 AV maxP.17 mmHg AV meanP.50 mmHg FINDINGS -------- Sinus rhythm. This was a technically good study. The left ventricular size is normal. There is borderline concentric left ventricular hypertrophy. Overall left ventricular systolic function is normal with, an EF between 60 - 65 %. The right ventricle is mildly enlarged. LA is midly dilated 29-33ml/m2. The right atrium is normal in size. Aortic valve is trileaflet and is mildly thickened. Peak/mean gradient across the Aortic Valve is 1 2.17mmHg / 5.50mmHg. There is trace mitral regurgitation. The tricuspid valve appears structurally normal. Trace/mild (physiologic) pulmonic regurgitation. The aortic root size is normal. Normal inferior vena cava with normal inspiratory collapse consistent with estimated right atrial pre ssure of 5 mmHg. There is no pericardial effusion. CONCLUSIONS -------- 1. Sinus rhythm. 2. This was a technically good study. 3. The left ventricular size is normal. 4. There is borderline concentric left ventricular hypertrophy. 5. Overall left ventricular systolic function is normal with, an EF between 60 - 65 %. 6. The right ventricle is mildly enlarged. 7. LA is midly dilated 29-33ml/m2. 8. The right atrium is normal in size. 9. Aortic valve is trileaflet and is mildly thickened. 10. Peak/mean gradient across the Aortic Valve is 12.17mmHg / 5.50mmHg. 11. There is trace mitral regurgitation. 12. The tricuspid valve appears structurally normal. 13. Trace/mild (physiologic) pulmonic regurgitation. 14. The aortic root size is normal. 15. Normal inferior vena cava with normal inspiratory collapse consistent with estimated right atrial pressure of 5 mmHg. 16. There is no pericardial effusion. REGISTERED NURSE CARDIAC TELEMETRY: Brittney Brunson RDCS
== END 2019-02-08 16:59 | disposition home or self-care (01) ==
LOC: EC 17:18 → 1SOBS 20:23
PROVIDERS: ADMIT Internal Medicine; ATTEND Internal Medicine
DX: R07.89 Other chest pain (principal); R06.02 Shortness of breath; R11.0 Nausea; R61 Generalized hyperhidrosis; R00.2 Palpitations; M54.2 Cervicalgia; M25.512 Pain in left shoulder; R06.09 Other forms of dyspnea; I10 Essential (primary) hypertension; E78.5 Hyperlipidemia, unspecified; K21.9 Gastro-esophageal reflux disease without esophagitis; K29.70 Gastritis, unspecified, without bleeding; I25.10 Atherosclerotic heart disease of native coronary artery without angina pectoris; I16.9 Hypertensive crisis, unspecified; Z95.5 Presence of coronary angioplasty implant and graft; M54.5 Low back pain; G89.4 Chronic pain syndrome; I25.2 Old myocardial infarction; R20.0 Anesthesia of skin; R20.2 Paresthesia of skin; J44.9 Chronic obstructive pulmonary disease, unspecified; M15.9 Polyosteoarthritis, unspecified; Z98.1 Arthrodesis status; Z86.718 Personal history of other venous thrombosis and embolism; Z87.11 Personal history of peptic ulcer disease; Z87.891 Personal history of nicotine dependence; Z90.49 Acquired absence of other specified parts of digestive tract; Z79.82 Long term (current) use of aspirin; Z79.899 Other long term (current) drug therapy; Z79.891 Long term (current) use of opiate analgesic; Z79.02 Long term (current) use of antithrombotics/antiplatelets; Z88.8 Allergy status to other drugs, medicaments and biological substances; Z80.6 Family history of leukemia; Z80.9 Family history of malignant neoplasm, unspecified
CPT/HCPCS: 93005 ×2; 96374; 96375; 99285; 36415; 93306; 93351; 83880; 80061; 80053; 80048; 83735; 84484 ×2; 85025; 85027; 85610; 85730; 71046; G0378 ×2; J1250; J2765; J2405; J0461; J2270

== ENCOUNTER 2019-02-09 14:20 | Emergency (ER) | payer MEDICARE ==
[2019-02-09 14:31] VITALS: TEMP 98.3
[2019-02-09] MEDS ORDERED: SODIUM CHLORIDE 0.9% 500 ML 500 ML IV STA (15:21)
[2019-02-09] MEDS ORDERED: hydrALAZINE HCL 20 MG/ML 1 ML VIAL IVP STA (15:29)
--- NOTE | 2019-02-09 16:19 | XR ---
EXAMINATION TYPE: XR chest 2V DATE OF EXAM: 02/09/2019 COMPARISON: Chest x-ray from 2 days ago. HISTORY: Hypertension and weakness. TECHNIQUE: Frontal and lateral views of the chest are obtained. FINDINGS: There is chronic parenchymal change without suspicious focal air space opacity or pneumoth orax seen. Subtle blunting bilateral posterior costophrenic angles could reflect tiny effusions is un changed from prior chest x-ray. The cardiac silhouette size is upper limits of normal currently with slightly ectatic thoracic aorta. Surgical changes lower cervical spine is partially imaged. Cholecys tectomy clips are noted. IMPRESSION: Chronic changes without new acute pulmonary process.
[2019-02-09 16:24] LABS: Basophils % (A) 1 %; Eosinophils # (A) 0.1 k/uL (0-0.7); Eosinophils % (A) 2 %; HCT 40.7 % (39.0-53.0); HGB 12.5 gm/dL (13.0-17.5); Hypochromasia Slight; Lymphocytes # (A) 0.8 k/uL (1.0-4.8); Lymphocytes % (A) 22 %; MCH 28.2 pg (25.0-35.0); MCHC 30.6 g/dL (31.0-37.0); MCV 92.3 fL (80.0-100.0); Mean Platelet Volume 6.4; Monocytes # (A) 0.3 k/uL (0-1.0); Monocytes % (A) 8 %; Neutrophils # (A) 2.5 k/uL (1.3-7.7); Neutrophils % (A) 66 %; Platelet Count 261 k/uL (150-450); RBC 4.41 m/uL (4.30-5.90); RDW 15.8 % (11.5-15.5); WBC 3.7 k/uL (3.8-10.6)
[2019-02-09 16:34] LABS: INR 0.9 (<1.2); Partial Thromboplastin Time 26.6 sec (22.0-30.0); Prothrombin Time 10.2 sec (9.0-12.0)
[2019-02-09] MEDS ORDERED: HYDROmorphone 0.5 MG/0.5 ML SYRINGE IVP STA (16:35)
[2019-02-09 16:37] LABS: ALT 18 U/L (21-72); AST 18 U/L (17-59); Albumin 4.3 g/dL (3.5-5.0); Alkaline Phosphatase 82 U/L (38-126); Anion Gap 8 mmol/L; Blood Urea Nitrogen 10 mg/dL (9-20); Calcium 9.6 mg/dL (8.4-10.2); Carbon Dioxide 26 mmol/L (22-30); Chloride 105 mmol/L (98-107); Glucose 108 mg/dL (74-99); Magnesium 2.1 mg/dL (1.6-2.3); Potassium 5.6 mmol/L (3.5-5.1); Sodium 139 mmol/L (137-145); Total Bilirubin 0.8 mg/dL (0.2-1.3); Total Protein 7.3 g/dL (6.3-8.2)
--- NOTE | 2019-02-09 16:40 | ED ---
General Adult HPI - General Chief complaint: Weakness Stated complaint: elevated blood pressure Time Seen by Provider: 02/09/19 15:07 Source: patient Mode of arrival: wheelchair Limitations: no limitations - History of Present Illness Initial comments: 63-year-old male presenting for elevation of blood pressure. Patient states that he was recently admitted for observation for elevation of blood pressure, upon discharge patient was given multiple medications for blood pressure control. Patient states he does not have any money and was unable to afford the prescriptions. Patient states he took his blood pressure today and it was elevated, he states this was concerning any present to the emergency department via EMS. Patient denies any other complaints. Stating he has felt more tired/weak for months, denied acute changes. Denied focal muscle weakness, sensation deficits, fever, chills, shortness of breath, speech changes, chest pain, back pain, abdominal pain, nausea or vomiting, numbness or tingling, dysuria or hematuria, constipation or diarrhea, headaches or visual changes, or any other complaints. Upon arrival patient is well appearing, BP elevated. Patient had (-) stress test 2 days prior. - Related Data Home Medications Medication Instructions Recorded Confirmed Aspirin 81 mg PO DAILY 01/21/17 02/09/19 Fluticasone Nasal [place] [Flonase 1 spray EA NOSTRIL BID 04/20/17 02/09/19 Nasal [place]] Morphine Sulfate ER [Ms Contin] 30 mg PO TID 10/10/17 02/09/19 tiZANidine [Zanaflex] 4 mg PO TID 02/26/18 02/09/19 oxyCODONE HCL [oxyCODONE HCL (IR)] 15 mg PO TID PRN 08/01/18 02/09/19 Diazepam [Valium] 10 mg PO HS 12/15/18 02/09/19 Previous Rx's Medication Instructions Recorded Atorvastatin [Lipitor] 80 mg PO HS #30 tab 10/12/17 Prasugrel [Effient] 10 mg PO DAILY #30 tab 10/12/17 Famotidine [Pepcid] 20 mg PO DAILY #30 tablet 12/02/18 Carvedilol [Coreg*] 12.5 mg PO BID-W/MEALS #60 tab 02/08/19 Ezetimibe [Zetia] 10 mg PO DAILY #30 tab 02/08/19 Lisinopril [Zestril] 40 mg PO DAILY #60 tab 02/08/19 cloNIDine HCL [Catapres] 0.1 mg PO BID #60 tab 02/08/19 Allergies Allergy/AdvReac Type Severity Reaction Status Date / Time ibuprofen [From Motrin] Allergy Rash/Hives Verified 02/09/19 15:19 ketorolac tromethamine Allergy Rash/Hives Verified 02/09/19 15:19 [From Toradol] Review of Systems ROS Statement: Those systems with pertinent positive or pertinent negative responses have been documented in the HPI. ROS Other: All systems not noted in ROS Statement are negative. Past Medical History Past Medical History: Coronary Artery Disease (CAD), Chest Pain / Angina, COPD, Deep Vein Thrombosis (DVT), GERD/Reflux, Hyperlipidemia, Hypertension, Osteoarthritis (OA), Thyroid Disorder Additional Past Medical History / Comment(s): 11/24/17 EGD/colonoscopy which pt states showed, gastritis, small hiatal hernia and diverticular dx, pt states years ago he had PUD, chronic low back pain, chronic pain syndrome, migraines, DVT L arm, numbness/tingling bilateral lower legs, bilateral past R hand fracture, arthritis multiple joints, hyperthyroid, sinus problems. History of Any Multi-Drug Resistant Organisms: None Reported Past Surgical History: Back Surgery, Cholecystectomy, Heart Catheterization With Stent, Orthopedic Surgery Additional Past Surgical History / Comment(s): EGDs/colonoscopies with last time being 11/24/17, multiple low back surgeries, bilateral arm and bilateral thigh surgeries for brown recluse spider bites with infection, morphine pain pump insertion and removal due to infection, PCI with stents, L rotator cuff repair, L knee arthroscopy, cervical fusion/cage, R cataract removal. Past Anesthesia/Blood Transfusion Reactions: No Reported Reaction Additional Past Anesthesia/Blood Transfusion Reaction / Comment(s): Pt states after cervical fusion he "" in the recovery room but does not know cause- he was"gone for 8 minutes" and states he was resusitated. Pt recieved blood after back surgery and tolerated it well. Date of Last Stent Placement:: 10/11/17 Past Psychological History: No Psychological Hx Reported Smoking Status: Former smoker Past Alcohol Use History: None Reported Past Drug Use History: None Reported - Past Family History Father Family Medical History: No Reported History Additional Family Medical History / Comment(s): Father had back problems. He lived to be 82 yrs old. Mother Family Medical History: Hypertension, Myocardial Infarction ([place]) Additional Family Medical History / Comment(s): Mother of a [place] at the age of 55yrs. Brother(s) Family Medical History: Cancer, COPD Additional Family Medical History / Comment(s): Leukemia General Exam - General Exam Comments Initial Comments: General: The patient is awake and alert, in no distress, and does not appear acutely ill. Eye: +3 mm pupils are equal, round and reactive to light, extra-ocular movements are intact. No nystagmus. There is normal conjunctiva bilaterally. No signs of icterus. Ears, nose, mouth and throat: There are moist mucous membranes and no oral lesions. Neck: The neck is supple, there is no tenderness or JVD. Cardiovascular: There is a regular rate and rhythm. No murmur, rub or gallop is appreciated. Respiratory: Lungs are clear to auscultation, respirations are non-labored, breath sounds are equal. No wheezes, stridor, rales, or rhonchi. Gastrointestinal: Soft, non-distended, non-tender abdomen without masses or organomegaly noted. There is no rebound or guarding present. Bowel sounds are unremarkable. Musculoskeletal: Normal ROM, no tenderness. Strength 5/5 of the UE and LE equal b/l. Sensation intact of the UE and LE and face equal b/l. Radial and DP pulses equal bilaterally 2+. Neurological: A&O x 3. CN II-XII intact, There are no obvious motor or sensory deficits. Coordination appears grossly intact. Speech is normal. Finger to nose coordinate. No pronator drift. Skin: Skin is warm and dry and no rashes or lesions are noted. No lower extremity edema. (-) Homans. Psychiatric: Cooperative, appropriate mood & affect, normal judgment. Limitations: no limitations Course Vital Signs 02/09/19 02/09/19 02/09/19 14:29 14:48 16:19 Temperature 98.3 F Pulse Rate 72 70 70 Respiratory 18 18 16 Rate Blood Pressure 188/102 182/107 184/113 O2 Sat by Pulse 99 98 100 Oximetry 02/09/19 02/09/19 16:45 17:38 Temperature Pulse Rate 73 70 Respiratory 18 18 Rate Blood Pressure 157/105 173/101 O2 Sat by Pulse 100 99 Oximetry EKG Findings - EKG Comments: EKG Findings:: A 12-lead EKG was performed and shows the following: Rate is [default value], and rhythm is normal sinus. There are normal QRS complexes and normal R-wave progression. ST segments have no elevation or depression, and WA segments appear normal. Ventricular rate 66 bpm, WA interval 176 ms, QR pentecostal 88 ms, QT/QTC 402/421 ms. Medical Decision Making - Medical Decision Making 63-year-old male presenting for increased blood pressure. Patient states she was unable to afford medications outpatient presented for elevated blood pressure reading today. Patient given IV blood pressure medications. Family member fill prescription and brought prescriptions emergency department because patient was unable to afford them. Pt laboratory studies similar to recent admission. EKG no acute changes. Troponin and CXR (-). Focal neurological complaints or deficits on examination. No findings consistent with end organ damage. I discussed the importance of taking outpatient medications and proper primary care follow-up, patient verbalized understanding. At this time I feel patient is stable for discharge after discussing the case attending provider Dr. Arellano. Patient took by mouth home BP medication as prescribed on previous discharge, upon discharge from the emergency department. Questions were answered to the best mobility. Patient verbalized understanding of importance of outpatient follow-up and adherence to blood pressure medication regimen. Return parameters were discussed at length, patient verbalizes understanding. Patient discharged appearing well - Lab Data Result diagrams: 02/09/19 16:06 02/09/19 16:06 Lab Results 02/09/19 02/09/19 02/09/19 Range/Units 16:06 16:06 16:06 WBC 3.7 L (3.8-10.6) k/uL RBC 4.41 (4.30-5.90) m/uL Hgb 12.5 L (13.0-17.5) gm/dL Hct 40.7 (39.0-53.0) % MCV 92.3 (80.0-100.0) fL MCH 28.2 (25.0-35.0) pg MCHC 30.6 L (31.0-37.0) g/dL RDW 15.8 H (11.5-15.5) % Plt Count 261 (150-450) k/uL Neutrophils % 66 % Lymphocytes % 22 % Monocytes % 8 % Eosinophils % 2 % Basophils % 1 % Neutrophils # 2.5 (1.3-7.7) k/uL Lymphocytes # 0.8 L (1.0-4.8) k/uL Monocytes # 0.3 (0-1.0) k/uL Eosinophils # 0.1 (0-0.7) k/uL Basophils # 0.0 (0-0.2) k/uL Hypochromasia Slight PT (9.0-12.0) sec INR (<1.2) APTT (22.0-30.0) sec Sodium 139 (137-145) mmol/L Potassium 5.6 H (3.5-5.1) mmol/L Chloride 105 (98-107) mmol/L Carbon Dioxide 26 (22-30) mmol/L Anion Gap 8 mmol/L BUN 10 (9-20) mg/dL Creatinine 0.71 (0.66-1.25) mg/dL Est GFR (CKD-EPI)AfAm >90 (>60 ml/min/1.73 sqM) Est GFR (CKD-EPI)NonAf >90 (>60 ml/min/1.73 sqM) Glucose 108 H (74-99) mg/dL Plasma Lactic Acid Rosales 1.5 (0.7-2.0) mmol/L Calcium 9.6 (8.4-10.2) mg/dL Magnesium 2.1 (1.6-2.3) mg/dL Total Bilirubin 0.8 (0.2-1.3) mg/dL AST 18 (17-59) U/L ALT 18 L (21-72) U/L Alkaline Phosphatase 82 (38-126) U/L Troponin I (0.000-0.034) ng/mL Total Protein 7.3 (6.3-8.2) g/dL Albumin 4.3 (3.5-5.0) g/dL 02/09/19 02/09/19 Range/Units 16:06 16:06 WBC (3.8-10.6) k/uL RBC (4.30-5.90) m/uL Hgb (13.0-17.5) gm/dL Hct (39.0-53.0) % MCV (80.0-100.0) fL MCH (25.0-35.0) pg MCHC (31.0-37.0) g/dL RDW (11.5-15.5) % Plt Count (150-450) k/uL Neutrophils % % Lymphocytes % % Monocytes % % Eosinophils % % Basophils % % Neutrophils # (1.3-7.7) k/uL Lymphocytes # (1.0-4.8) k/uL Monocytes # (0-1.0) k/uL Eosinophils # (0-0.7) k/uL Basophils # (0-0.2) k/uL Hypochromasia PT 10.2 (9.0-12.0) sec INR 0.9 (<1.2) APTT 26.6 (22.0-30.0) sec Sodium (137-145) mmol/L Potassium (3.5-5.1) mmol/L Chloride (98-107) mmol/L Carbon Dioxide (22-30) mmol/L Anion Gap mmol/L BUN (9-20) mg/dL Creatinine (0.66-1.25) mg/dL Est GFR (CKD-EPI)AfAm (>60 ml/min/1.73 sqM) Est GFR (CKD-EPI)NonAf (>60 ml/min/1.73 sqM) Glucose (74-99) mg/dL Plasma Lactic Acid Rosales (0.7-2.0) mmol/L Calcium (8.4-10.2) mg/dL Magnesium (1.6-2.3) mg/dL Total Bilirubin (0.2-1.3) mg/dL AST (17-59) U/L ALT (21-72) U/L Alkaline Phosphatase (38-126) U/L Troponin I <0.012 (0.000-0.034) ng/mL Total Protein (6.3-8.2) g/dL Albumin (3.5-5.0) g/dL Disposition Clinical Impression: Elevated blood pressure reading Disposition: HOME SELF-CARE Condition: Good Instructions (If sedation given, give patient instructions): DASH Eating Plan (ED), Hypertension (ED) Additional Instructions: Please use medication as discussed. Please follow-up with family doctor in the next 2 days for management of elevated blood pressure. Please return to emergency room if the symptoms increase or worsen or for any other concerns. Is patient prescribed a controlled substance at d/c from ED?: No Referrals: Nonstaff,Physician [Primary Care Provider] - 1-2 days [facility] [NON-STAFF] - 1-2 days Time of Disposition: 17:07
[2019-02-09] MEDS ORDERED: SODIUM CHLORIDE 0.9% 500 ML 500 ML IV ONE (16:43)
[2019-02-09 16:51] VITALS: RESP 18
[2019-02-09 17:39] VITALS: BP 173/101; PULSE 70
== END 2019-02-09 17:39 | disposition home or self-care (01) ==
LOC: EC 14:20
DX: I10 Essential (primary) hypertension (principal); I25.119 Atherosclerotic heart disease of native coronary artery with unspecified angina pectoris; J44.9 Chronic obstructive pulmonary disease, unspecified; Z79.82 Long term (current) use of aspirin; Z79.51 Long term (current) use of inhaled steroids; Z79.899 Other long term (current) drug therapy; Z88.6 Allergy status to analgesic agent; Z86.718 Personal history of other venous thrombosis and embolism; Z87.891 Personal history of nicotine dependence; Z95.5 Presence of coronary angioplasty implant and graft; Z98.1 Arthrodesis status
CPT/HCPCS: 36415; 71046; 80053; 83605; 83735; 84484; 85025; 85610; 85730; 93005; 96361; 96374; 99285

== ENCOUNTER 2019-04-23 12:54 | Emergency (ER) | payer MEDICARE ==
[2019-04-23] MEDS ORDERED: diphenhydrAMINE 50 MG/ML 1 ML VIAL IVP STA ×2 (13:17→15:37)
[2019-04-23] MEDS ORDERED: ONDANSETRON 4 MG/2 ML VIAL IVP STA ×2 (13:17→14:58)
[2019-04-23] MEDS ORDERED: SODIUM CHLORIDE 0.9% 2,000 ML IV STA (13:17)
[2019-04-23] MEDS ORDERED: LABETALOL SYRINGE 5 MG/ML IVP STA (13:53)
--- NOTE | 2019-04-23 13:53 | ED ---
Abdominal Pain HPI - General Chief Complaint: Abdominal Pain Stated Complaint: abd pain Time Seen by Provider: 04/23/19 13:00 Source: patient, RN notes reviewed Mode of arrival: ambulatory Limitations: no limitations - History of Present Illness Initial Comments: this a 63-year-old male presents emergency Department chief complaint abdominal pain, nausea vomiting diarrhea. Patient states symptoms started this morning. Patient complains of diffuse abdominal pain. Denies any local lites abdominal discomfort. Patient states that he has no dysuria no hematuria. Patient states the pain radiates to his upper abdomen but denies any current chest pain shortness breath no headache or dizziness. - Related Data Home Medications Medication Instructions Recorded Confirmed Aspirin 81 mg PO DAILY 01/21/17 04/23/19 Fluticasone Nasal [place] [Flonase 1 spray EA NOSTRIL BID 04/20/17 04/23/19 Nasal [place]] Morphine Sulfate ER [Ms Contin] 30 mg PO TID 10/10/17 04/23/19 tiZANidine [Zanaflex] 4 mg PO TID 02/26/18 04/23/19 oxyCODONE HCL [oxyCODONE HCL (IR)] 15 mg PO TID PRN 08/01/18 04/23/19 Diazepam [Valium] 10 mg PO HS 12/15/18 04/23/19 Previous Rx's Medication Instructions Recorded Atorvastatin [Lipitor] 80 mg PO HS #30 tab 10/12/17 Prasugrel [Effient] 10 mg PO DAILY #30 tab 10/12/17 Famotidine [Pepcid] 20 mg PO DAILY #30 tablet 12/02/18 Carvedilol [Coreg*] 12.5 mg PO BID-W/MEALS #60 tab 02/08/19 Ezetimibe [Zetia] 10 mg PO DAILY #30 tab 02/08/19 Lisinopril [Zestril] 40 mg PO DAILY #60 tab 02/08/19 cloNIDine HCL [Catapres] 0.1 mg PO BID #60 tab 02/08/19 Ondansetron Odt [Zofran Odt] 4 mg PO Q8HR PRN #10 tab 04/23/19 Allergies Allergy/AdvReac Type Severity Reaction Status Date / Time ibuprofen [From Motrin] Allergy Rash/Hives Verified 04/23/19 13:26 ketorolac tromethamine Allergy Rash/Hives Verified 04/23/19 13:26 [From Toradol] Review of Systems ROS Statement: Those systems with pertinent positive or pertinent negative responses have been documented in the HPI. ROS Other: All systems not noted in ROS Statement are negative. Past Medical History Past Medical History: Coronary Artery Disease (CAD), Chest Pain / Angina, COPD, Deep Vein Thrombosis (DVT), GERD/Reflux, Hyperlipidemia, Hypertension, Osteoarthritis (OA), Thyroid Disorder Additional Past Medical History / Comment(s): 11/24/17 EGD/colonoscopy which pt states showed, gastritis, small hiatal hernia and diverticular dx, pt states years ago he had PUD, chronic low back pain, chronic pain syndrome, migraines, DVT L arm, numbness/tingling bilateral lower legs, bilateral past R hand fracture, arthritis multiple joints, hyperthyroid, sinus problems. History of Any Multi-Drug Resistant Organisms: None Reported Past Surgical History: Back Surgery, Cholecystectomy, Heart Catheterization With Stent, Orthopedic Surgery Additional Past Surgical History / Comment(s): EGDs/colonoscopies with last time being 11/24/17, multiple low back surgeries, bilateral arm and bilateral thigh surgeries for brown recluse spider bites with infection, morphine pain pump insertion and removal due to infection, PCI with stents, L rotator cuff repair, L knee arthroscopy, cervical fusion/cage, R cataract removal. Past Anesthesia/Blood Transfusion Reactions: No Reported Reaction Additional Past Anesthesia/Blood Transfusion Reaction / Comment(s): Pt states after cervical fusion he "" in the recovery room but does not know cause- he was"gone for 8 minutes" and states he was resusitated. Pt recieved blood after back surgery and tolerated it well. Date of Last Stent Placement:: 10/11/17 Past Psychological History: No Psychological Hx Reported Smoking Status: Former smoker Past Alcohol Use History: None Reported Past Drug Use History: None Reported - Past Family History Father Family Medical History: No Reported History Additional Family Medical History / Comment(s): Father had back problems. He lived to be 82 yrs old. Mother Family Medical History: Hypertension, Myocardial Infarction ([place]) Additional Family Medical History / Comment(s): Mother of a [place] at the age of 55yrs. Brother(s) Family Medical History: Cancer, COPD Additional Family Medical History / Comment(s): Leukemia General Exam Limitations: no limitations General appearance: alert, in no apparent distress Head exam: Present: atraumatic, normocephalic, normal inspection Eye exam: Present: normal appearance, PERRL, EOMI. Absent: scleral icterus, conjunctival injection, periorbital swelling ENT exam: Present: normal exam, normal oropharynx, mucous membranes moist Neck exam: Present: normal inspection, full ROM. Absent: tenderness, meningismus, lymphadenopathy Respiratory exam: Present: normal lung sounds bilaterally. Absent: respiratory distress, wheezes, rales, rhonchi, stridor Cardiovascular Exam: Present: regular rate, normal rhythm, normal heart sounds. Absent: systolic murmur, diastolic murmur, rubs, gallop, clicks GI/Abdominal exam: Present: soft, tenderness (diffuse), normal bowel sounds. Absent: distended, guarding, rebound, rigid Neurological exam: Present: alert, oriented X3, CN II-XII intact Skin exam: Present: warm, dry, intact, normal color. Absent: rash Course Vital Signs 04/23/19 04/23/19 04/23/19 12:57 14:38 15:00 Temperature 98.0 F Pulse Rate 90 85 83 Respiratory 18 16 18 Rate Blood Pressure 183/106 191/109 178/124 O2 Sat by Pulse 100 99 100 Oximetry Medical Decision Making - Medical Decision Making 63-year-old male presents emergency department for nausea and diarrhea. Patient's symptoms are consistent with gastritis that is complaining of abdominal pain that radiated up CT is obtained which is negative for acute abnormality. Patient's labs did reveal mild hypokalemia though this is hemolyzed. Repeat potassium was ordered. Patient refused repeat labs requesting narcotics at this time. Patient was given multiple antiemetics no recurrent vomiting only reports nausea. - Lab Data Result diagrams: 04/23/19 14:00 04/23/19 14:00 Lab Results 04/23/19 04/23/19 04/23/19 Range/Units 14:00 14:00 14:00 WBC 3.0 L (3.8-10.6) k/uL RBC 4.59 (4.30-5.90) m/uL Hgb 12.7 L (13.0-17.5) gm/dL Hct 41.2 (39.0-53.0) % MCV 89.8 (80.0-100.0) fL MCH 27.6 (25.0-35.0) pg MCHC 30.7 L (31.0-37.0) g/dL RDW 14.5 (11.5-15.5) % Plt Count 412 (150-450) k/uL Neutrophils % 65 % Lymphocytes % 24 % Monocytes % 7 % Eosinophils % 1 % Basophils % 0 % Neutrophils # 1.9 (1.3-7.7) k/uL Lymphocytes # 0.7 L (1.0-4.8) k/uL Monocytes # 0.2 (0-1.0) k/uL Eosinophils # 0.0 (0-0.7) k/uL Basophils # 0.0 (0-0.2) k/uL Sodium 141 (137-145) mmol/L Potassium 5.8 H (3.5-5.1) mmol/L Chloride 109 H (98-107) mmol/L Carbon Dioxide 24 (22-30) mmol/L Anion Gap 8 mmol/L BUN 8 L (9-20) mg/dL Creatinine 0.58 L (0.66-1.25) mg/dL Est GFR (CKD-EPI)AfAm >90 (>60 ml/min/1.73 sqM) Est GFR (CKD-EPI)NonAf >90 (>60 ml/min/1.73 sqM) Glucose 108 H (74-99) mg/dL Plasma Lactic Acid Rosales 1.7 (0.7-2.0) mmol/L Calcium 9.8 (8.4-10.2) mg/dL Total Bilirubin 0.8 (0.2-1.3) mg/dL AST 24 (17-59) U/L ALT 12 L (21-72) U/L Alkaline Phosphatase 87 (38-126) U/L Troponin I (0.000-0.034) ng/mL Total Protein 7.7 (6.3-8.2) g/dL Albumin 4.7 (3.5-5.0) g/dL Lipase 43 (23-300) U/L 04/23/19 Range/Units 14:00 WBC (3.8-10.6) k/uL RBC (4.30-5.90) m/uL Hgb (13.0-17.5) gm/dL Hct (39.0-53.0) % MCV (80.0-100.0) fL MCH (25.0-35.0) pg MCHC (31.0-37.0) g/dL RDW (11.5-15.5) % Plt Count (150-450) k/uL Neutrophils % % Lymphocytes % % Monocytes % % Eosinophils % % Basophils % % Neutrophils # (1.3-7.7) k/uL Lymphocytes # (1.0-4.8) k/uL Monocytes # (0-1.0) k/uL Eosinophils # (0-0.7) k/uL Basophils # (0-0.2) k/uL Sodium (137-145) mmol/L Potassium (3.5-5.1) mmol/L Chloride (98-107) mmol/L Carbon Dioxide (22-30) mmol/L Anion Gap mmol/L BUN (9-20) mg/dL Creatinine (0.66-1.25) mg/dL Est GFR (CKD-EPI)AfAm (>60 ml/min/1.73 sqM) Est GFR (CKD-EPI)NonAf (>60 ml/min/1.73 sqM) Glucose (74-99) mg/dL Plasma Lactic Acid Rosales (0.7-2.0) mmol/L Calcium (8.4-10.2) mg/dL Total Bilirubin (0.2-1.3) mg/dL AST (17-59) U/L ALT (21-72) U/L Alkaline Phosphatase (38-126) U/L Troponin I <0.012 (0.000-0.034) ng/mL Total Protein (6.3-8.2) g/dL Albumin (3.5-5.0) g/dL Lipase (23-300) U/L Disposition Clinical Impression: Gastroenteritis Disposition: HOME SELF-CARE Condition: Stable Instructions (If sedation given, give patient instructions): Gastroenteritis (ED) Additional Instructions: Please return to the Emergency Department if symptoms worsen or any other concerns. Prescriptions: Ondansetron Odt [Zofran Odt] 4 mg PO Q8HR PRN #10 tab PRN Reason: Nausea Is patient prescribed a controlled substance at d/c from ED?: No Referrals: None,Stated [Primary Care Provider] - 1-2 days Time of Disposition: 16:48
[2019-04-23 14:21] LABS: Basophils % (A) 0 %; Eosinophils % (A) 1 %; HCT 41.2 % (39.0-53.0); HGB 12.7 gm/dL (13.0-17.5); Lymphocytes # (A) 0.7 k/uL (1.0-4.8); Lymphocytes % (A) 24 %; MCH 27.6 pg (25.0-35.0); MCHC 30.7 g/dL (31.0-37.0); MCV 89.8 fL (80.0-100.0); Mean Platelet Volume 6.1; Monocytes # (A) 0.2 k/uL (0-1.0); Monocytes % (A) 7 %; Neutrophils # (A) 1.9 k/uL (1.3-7.7); Neutrophils % (A) 65 %; Platelet Count 412 k/uL (150-450); RBC 4.59 m/uL (4.30-5.90); RDW 14.5 % (11.5-15.5)
[2019-04-23 14:32] LABS: Anion Gap 8 mmol/L; Blood Urea Nitrogen 8 mg/dL (9-20); Calcium 9.8 mg/dL (8.4-10.2); Carbon Dioxide 24 mmol/L (22-30); Chloride 109 mmol/L (98-107); Glucose 108 mg/dL (74-99); Lipase 43 U/L (23-300); Sodium 141 mmol/L (137-145); Total Bilirubin 0.8 mg/dL (0.2-1.3)
[2019-04-23 14:47] LABS: Albumin 4.7 g/dL (3.5-5.0); Potassium 5.8 mmol/L (3.5-5.1); Total Protein 7.7 g/dL (6.3-8.2)
[2019-04-23 14:48] LABS: ALT 12 U/L (21-72); AST 24 U/L (17-59); Alkaline Phosphatase 87 U/L (38-126)
[2019-04-23] MEDS ORDERED: MORPHINE SULFATE 2 MG/ML SYRINGE IVP ONE (15:00)
[2019-04-23] MEDS ORDERED: METOCLOPRAMIDE 5 MG/ML 2 ML VIAL IVP STA (15:37)
--- NOTE | 2019-04-23 15:38 | CT ---
EXAMINATION TYPE: CT abdomen pelvis w con DATE OF EXAM: 04/23/2019 COMPARISON: CT abdomen pelvis December 02, 2018 HISTORY: Abdominal pain and vomiting. CT DLP: 856.5 mGycm, Automated Exposure Control for Dose Reduction was Utilized. CONTRAST: CT scan of the abdomen and pelvis is performed without oral but with IV Contrast, patient injected wi th 100ml mL of Isovue 300. FINDINGS: LUNG BASES: Tiny bilateral pleural effusions are again seen. LIVER/GB: Cholecystectomy clips are redemonstrated. Liver is heterogeneously hypodense relative to sp masood suggesting mild fatty infiltration with scattered subcentimeter round low dense lesions too smal l to further characterize but presumed benign. Stable mild prominence of the distal common bile duct coronal image 33 to 12 mm. PANCREAS: No significant abnormality is seen. SPLEEN: No significant abnormality is seen. ADRENALS: No significant abnormality is seen. KIDNEYS: No significant abnormality is seen. BOWEL: Evaluation bowel is suboptimal secondary to lack of enteric contrast. There is no suspicious s mall or large bowel dilatation identified. Normal-appearing appendix is seen from cecum in the right lower quadrant. There are some scattered diverticula in the distal left and proximal sigmoid colon wi thout CT evidence for acute diverticulitis. PROSTATE/SEMINAL VESICLES: Prostate gland is enlarged in size bulging on bladder base, underlying BPH is felt present. Finding appears similar to prior. LYMPH NODES: No greater than 1cm abdominal or pelvic lymph nodes are appreciated. OSSEOUS STRUCTURES: Postsurgical change L3-S1 levels is redemonstrated with posterior interpedicular rods and screws. There is persistent metallic disc material lumbosacral junction. There is persistent metallic cage with ossific fusion right L4-L5 level. OTHER: No significant additional abnormality is seen. IMPRESSION: No bowel obstruction. No significant new or acute finding is seen to account for patient 's clinical symptoms.
[2019-04-23] MEDS ORDERED: LORazepam 2 MG/ML INJ IV STA (16:12)
[2019-04-23 16:47] VITALS: BP 143/89; PULSE 78; RESP 20; TEMP 98.7
[2019-04-23] MEDS ORDERED: ONDANSETRON 4 MG ODT STARTER PACK 2 TAB BTL PO STA (16:48)
[2019-04-23 17:00] LABS: Appearance,Urine Clear (Clear); Bilirubin,Urine Negative (Negative); Blood,Urine Negative (Negative); Color,Urine Light Yellow; Glucose,Urine (UA) Negative (Negative); Ketones,Urine Negative (Negative); Leukocyte Esterase,Urine Negative (Negative); Nitrite,Urine Negative (Negative); Protein,Urine Negative (Negative); Specific Gravity,Urine 1.023 (1.001-1.035); Urobilinogen,Urine <2.0 mg/dL (<2.0)
== END 2019-04-23 17:25 | disposition home or self-care (01) ==
LOC: EC 12:54
DX: K52.9 Noninfective gastroenteritis and colitis, unspecified (principal); E87.6 Hypokalemia; J44.9 Chronic obstructive pulmonary disease, unspecified; M19.90 Unspecified osteoarthritis, unspecified site; G43.909 Migraine, unspecified, not intractable, without status migrainosus; Z87.19 Personal history of other diseases of the digestive system; Z90.49 Acquired absence of other specified parts of digestive tract; Z95.5 Presence of coronary angioplasty implant and graft; Z87.891 Personal history of nicotine dependence; Z79.82 Long term (current) use of aspirin; Z79.891 Long term (current) use of opiate analgesic; Z79.899 Other long term (current) drug therapy; Z88.6 Allergy status to analgesic agent
CPT/HCPCS: 36415; 80053; 83605; 83690; 84484; 85025; 81003; 74177; 99284; 96374; 96375 ×5; 96376 ×2; 96361 ×3; J2060; J1200; J2765; J2405; J2270; S0119; Q9967

== ENCOUNTER 2019-04-29 06:41 | Inpatient (IN) | payer MEDICARE ==
[2019-04-29] MEDS ORDERED: ASPIRIN 81 MG PO STA (06:56)
[2019-04-29] MEDS ORDERED: LABETALOL SYRINGE 5 MG/ML IVP STA (07:02)
--- NOTE | 2019-04-29 07:04 | ED ---
Chest Pain HPI - General Chief Complaint: Chest Pain Stated Complaint: chest pain Time Seen by Provider: 04/29/19 06:56 Source: patient, RN notes reviewed Mode of arrival: ambulatory Limitations: no limitations - History of Present Illness Initial Comments: This is a 63-year-old male presents emergency Department with chief complaint of chest pain. Patient states pain started 5:30 this morning. Patient states it's centralized left-sided radiates up. Patient denies any shortness of breath. He is had some nausea no diaphoresis. Denies any vomiting, diarrhea, constipation, URI symptoms, cough or chest congestion. Patient does have multiple comorbidities. Patient states she took Catapres for his blood pressure this morning did not take any other medications. Patient denies headache, dizziness, pleuritic chest pain - Related Data Home Medications Medication Instructions Recorded Confirmed Aspirin 81 mg PO DAILY 01/21/17 04/29/19 Fluticasone Nasal [place] [Flonase 1 spray EA NOSTRIL BID 04/20/17 04/29/19 Nasal [place]] Morphine Sulfate ER [Ms Contin] 30 mg PO TID 10/10/17 04/29/19 tiZANidine [Zanaflex] 4 mg PO TID 02/26/18 04/29/19 oxyCODONE HCL [oxyCODONE HCL (IR)] 15 mg PO TID PRN 08/01/18 04/29/19 Diazepam [Valium] 10 mg PO HS 12/15/18 04/29/19 Previous Rx's Medication Instructions Recorded Atorvastatin [Lipitor] 80 mg PO HS #30 tab 10/12/17 Prasugrel [Effient] 10 mg PO DAILY #30 tab 10/12/17 Famotidine [Pepcid] 20 mg PO DAILY #30 tablet 12/02/18 Carvedilol [Coreg*] 12.5 mg PO BID-W/MEALS #60 tab 02/08/19 Ezetimibe [Zetia] 10 mg PO DAILY #30 tab 02/08/19 Lisinopril [Zestril] 40 mg PO DAILY #60 tab 02/08/19 cloNIDine HCL [Catapres] 0.1 mg PO BID #60 tab 02/08/19 Ondansetron Odt [Zofran Odt] 4 mg PO Q8HR PRN #10 tab 04/23/19 Allergies Allergy/AdvReac Type Severity Reaction Status Date / Time ibuprofen [From Motrin] Allergy Rash/Hives Verified 04/29/19 07:37 ketorolac tromethamine Allergy Rash/Hives Verified 04/29/19 07:37 [From Toradol] Review of Systems ROS Statement: Those systems with pertinent positive or pertinent negative responses have been documented in the HPI. ROS Other: All systems not noted in ROS Statement are negative. EKG Findings - EKG Comments: EKG Findings:: EKG performed at 6:57 normal sinus rhythm with a rate of 82 MI 152 QRS 90 QT/QTC 364/425 Past Medical History Past Medical History: Coronary Artery Disease (CAD), Chest Pain / Angina, COPD, Deep Vein Thrombosis (DVT), GERD/Reflux, Hyperlipidemia, Hypertension, Osteoarthritis (OA), Thyroid Disorder Additional Past Medical History / Comment(s): 11/24/17 EGD/colonoscopy which pt states showed, gastritis, small hiatal hernia and diverticular dx, pt states years ago he had PUD, chronic low back pain, chronic pain syndrome, migraines, DVT L arm, numbness/tingling bilateral lower legs, bilateral past R hand fracture, arthritis multiple joints, hyperthyroid, sinus problems. History of Any Multi-Drug Resistant Organisms: None Reported Past Surgical History: Back Surgery, Cholecystectomy, Heart Catheterization With Stent, Orthopedic Surgery Additional Past Surgical History / Comment(s): EGDs/colonoscopies with last time being 11/24/17, multiple low back surgeries, bilateral arm and bilateral thigh surgeries for brown recluse spider bites with infection, morphine pain pump insertion and removal due to infection, PCI with stents, L rotator cuff repair, L knee arthroscopy, cervical fusion/cage, R cataract removal. Past Anesthesia/Blood Transfusion Reactions: No Reported Reaction Additional Past Anesthesia/Blood Transfusion Reaction / Comment(s): Pt states after cervical fusion he "" in the recovery room but does not know cause- he was"gone for 8 minutes" and states he was resusitated. Pt recieved blood after back surgery and tolerated it well. Date of Last Stent Placement:: 10/11/17 Past Psychological History: No Psychological Hx Reported Smoking Status: Former smoker Past Alcohol Use History: None Reported Past Drug Use History: None Reported - Past Family History Father Family Medical History: No Reported History Additional Family Medical History / Comment(s): Father had back problems. He lived to be 82 yrs old. Mother Family Medical History: Hypertension, Myocardial Infarction ([place]) Additional Family Medical History / Comment(s): Mother of a [place] at the age of 55yrs. Brother(s) Family Medical History: Cancer, COPD Additional Family Medical History / Comment(s): Leukemia General Exam Limitations: no limitations General appearance: alert, in no apparent distress Head exam: Present: atraumatic, normocephalic, normal inspection Eye exam: Present: normal appearance, PERRL, EOMI. Absent: scleral icterus, conjunctival injection, periorbital swelling ENT exam: Present: normal exam, normal oropharynx, mucous membranes moist Neck exam: Present: normal inspection, full ROM. Absent: tenderness, meningismus, lymphadenopathy Respiratory exam: Present: normal lung sounds bilaterally. Absent: respiratory distress, wheezes, rales, rhonchi, stridor Cardiovascular Exam: Present: regular rate, normal rhythm, normal heart sounds. Absent: systolic murmur, diastolic murmur, rubs, gallop, clicks GI/Abdominal exam: Present: soft, normal bowel sounds. Absent: distended, tenderness, guarding, rebound, rigid Neurological exam: Present: alert, oriented X3, CN II-XII intact Skin exam: Present: warm, dry, intact, normal color. Absent: rash Course Vital Signs 04/29/19 06:46 Temperature 98.2 F Pulse Rate 88 Respiratory 20 Rate Blood Pressure 185/108 O2 Sat by Pulse 100 Oximetry Chest Pain [facility] 63-year-old male presented for chest pain. Patient's had chest x-ray, EKG, lab work which is unremarkable patient does have extensive cardiac history will be admitted for cardiac observation was started on heparin at this time. Disposition Clinical Impression: Chest pain Disposition: [facility] Condition: Fair Referrals: None,Stated [Primary Care Provider] - 1-2 days
[2019-04-29 07:58] LABS: Basophils % (A) 1 %; Eosinophils # (A) 0.1 k/uL (0-0.7); Eosinophils % (A) 2 %; HCT 41.3 % (39.0-53.0); HGB 12.6 gm/dL (13.0-17.5); Hypochromasia Moderate; Lymphocytes # (A) 0.7 k/uL (1.0-4.8); Lymphocytes % (A) 25 %; MCH 28.2 pg (25.0-35.0); MCHC 30.6 g/dL (31.0-37.0); MCV 92.2 fL (80.0-100.0); Mean Platelet Volume 6.7; Monocytes # (A) 0.2 k/uL (0-1.0); Monocytes % (A) 7 %; Neutrophils # (A) 1.7 k/uL (1.3-7.7); Neutrophils % (A) 63 %; Platelet Count 280 k/uL (150-450); RBC 4.48 m/uL (4.30-5.90); RDW 15.6 % (11.5-15.5); WBC 2.7 k/uL (3.8-10.6)
[2019-04-29 08:11] LABS: Partial Thromboplastin Time 25.9 sec (22.0-30.0); Prothrombin Time 10.8 sec (9.0-12.0)
--- NOTE | 2019-04-29 08:18 | XR ---
EXAMINATION TYPE: XR chest 2V DATE OF EXAM: 04/29/2019 COMPARISON: 02/09/2019 TECHNIQUE: PA and lateral views submitted. HISTORY: Chest pain FINDINGS: The lungs are clear and there is no pneumothorax, pleural effusion, or focal pneumonia. Postsurgica l change overlying the cervical spine. Arthropathy of the shoulders. Chronic rib deformities noted. H ypertrophic and degenerative changes spine. Surgical clips in the abdomen. IMPRESSION: 1. No acute process.
[2019-04-29 08:22] LABS: Albumin 4.5 g/dL (3.5-5.0); Anion Gap 10 mmol/L; Blood Urea Nitrogen 7 mg/dL (9-20); Calcium 9.3 mg/dL (8.4-10.2); Carbon Dioxide 21 mmol/L (22-30); Chloride 110 mmol/L (98-107); Glucose 108 mg/dL (74-99); Sodium 141 mmol/L (137-145); Total Bilirubin 0.7 mg/dL (0.2-1.3); Total Protein 7.3 g/dL (6.3-8.2)
[2019-04-29 08:27] LABS: ALT 7 U/L (21-72); AST 18 U/L (17-59); Alkaline Phosphatase 81 U/L (38-126); Magnesium 2.1 mg/dL (1.6-2.3); Potassium 4.1 mmol/L (3.5-5.1)
[2019-04-29 08:54] LABS: Glucose,Whole Blood 105 mg/dL (75-99)
[2019-04-29] MEDS ORDERED: HEPARIN SODIUM,PORCINE 5,000 UNIT/ML 1 ML VIAL IV ONE (09:00)
[2019-04-29] MEDS ORDERED: NITROGLYCERIN SL TABS 0.4 MG TAB SUBLINGUAL PRN (09:00)
[2019-04-29] MEDS ORDERED: MORPHINE SULFATE 4 MG/ML SYRINGE IVP STA (09:05)
[2019-04-29] MEDS ORDERED: ACETAMINOPHEN TAB 325 MG TAB PO STA (09:05)
[2019-04-29] MEDS: HEPARIN SOD,PORK IN 0.45% NACL 25,000 UNIT in 0.45% NACL 1 250ML.BAG IV SCH (11:41)
--- NOTE | 2019-04-29 12:43 | P.CRDCN ---
History of Present Illness Consult date: 04/29/19 Chief complaint: chest pain History of present illness: This is a pleasant 63-year-old gentleman with a past medical history significant for CAD and prior stenting of the LAD as well as diagonal branch of the LAD as well as a right coronary artery, hypertension, and dyslipidemia, presented back to the hospital complaining of chest discomfort. The patient just was discharged from the hospital in January 2019 when he presented with a chest disc omfort and ruled out for acute coronary syndrome. At that point he was seen by Dr. Baez. An echocardiogram was performed and revealed normal LV function was mild aortic stenosis, mild mitral regurgitation, and mild tricuspid regurgitation. The patient underwent to becoming a stress echocardiogram as well as that point and that showed no evidence of ischemia. This time he was in his usual state of health until yesterday night when he started experiencing discomfort in the mid of the chest, as a squeezing sensation, without any radiation to the arm or neck or shoulders and without any assistance at his symptoms of shortness of breath, sweating, dizziness, heart racing, or syncope. The EKG showed sinus rhythm without any significant ST or T-wave abnormalities. The first set of troponin came in to be unremarkable. We don't have any more sets of troponin at this point. The chest x-ray did not show any acute abnormalities. When the patient was seen in the emergency room earlier today, he was having mild ongoing chest discomfort. Currently he is on heparin. He is in process to be admitted to the observational unit. Past Medical History Past Medical History: Coronary Artery Disease (CAD), Chest Pain / Angina, COPD, Deep Vein Thrombosis (DVT), GERD/Reflux, Hyperlipidemia, Hypertension, Osteoarthritis (OA), Thyroid Disorder Additional Past Medical History / Comment(s): Occasional palpitations, gastritis, small hiatal hernia, diverticular dx, pt states years ago he had PUD, chronic low back pain, chronic pain syndrome, migraines, DVT L arm, numbness/tingling bilateral lower legs, bilateral past R hand fracture, arthritis multiple joints, hyperthyroid, sinus problems. History of Any Multi-Drug Resistant Organisms: None Reported Past Surgical History: Back Surgery, Cholecystectomy, Heart Catheterization With Stent, Orthopedic Surgery Additional Past Surgical History / Comment(s): EGDs/colonoscopies, multiple low back surgeries, bilateral arm and bilateral thigh surgeries for brown recluse spider bites with infection, morphine pain pump insertion and removal due to infection, PCI with stents, L rotator cuff repair, L knee arthroscopy, cervical fusion/cage, R cataract removal. Past Anesthesia/Blood Transfusion Reactions: No Reported Reaction Additional Past Anesthesia/Blood Transfusion Reaction / Comment(s): Pt states after cervical fusion he "" in the recovery room but does not know cause- he was"gone for 8 minutes" and states he was resusitated. Pt received blood after back surgery and tolerated it well. Date of Last Stent Placement:: 10/12/17 Past Psychological History: No Psychological Hx Reported Additional Psychological History / Comment(s): He is fairly independent. He uses a walker to ambulate. Pt no longer drives. Smoking Status: Former smoker Past Alcohol Use History: None Reported Additional Past Alcohol Use History / Comment(s): Pt started smoking in 1973 and quit in 1984 Past Drug Use History: None Reported - Past Family History Father Family Medical History: No Reported History Additional Family Medical History / Comment(s): Father had back problems. He lived to be 82 yrs old. Mother Family Medical History: Hypertension, Myocardial Infarction ([place]) Additional Family Medical History / Comment(s): Mother of a [place] at the age of 55yrs. Brother(s) Family Medical History: Cancer, COPD Additional Family Medical History / Comment(s): Leukemia Medications and Allergies Home Medications Medication Instructions Recorded Confirmed Type Aspirin 81 mg PO DAILY 01/21/17 04/29/19 History Fluticasone Nasal [place] [Flonase 1 spray EA NOSTRIL BID 04/20/17 04/29/19 History Nasal [place]] Morphine Sulfate ER [Ms Contin] 30 mg PO TID 10/10/17 04/29/19 History Atorvastatin [Lipitor] 80 mg PO HS #30 tab 10/12/17 04/29/19 Rx Prasugrel [Effient] 10 mg PO DAILY #30 tab 10/12/17 04/29/19 Rx tiZANidine [Zanaflex] 4 mg PO TID 02/26/18 04/29/19 History oxyCODONE HCL [oxyCODONE HCL (IR)] 15 mg PO TID PRN 08/01/18 04/29/19 History Famotidine [Pepcid] 20 mg PO DAILY #30 tablet 12/02/18 04/29/19 Rx Diazepam [Valium] 10 mg PO HS 12/15/18 04/29/19 History Carvedilol [Coreg*] 12.5 mg PO BID-W/MEALS #60 tab 02/08/19 04/29/19 Rx Ezetimibe [Zetia] 10 mg PO DAILY #30 tab 02/08/19 04/29/19 Rx Lisinopril [Zestril] 40 mg PO DAILY #60 tab 02/08/19 04/29/19 Rx cloNIDine HCL [Catapres] 0.1 mg PO BID #60 tab 02/08/19 04/29/19 Rx Ondansetron Odt [Zofran Odt] 4 mg PO Q8HR PRN #10 tab 04/23/19 04/29/19 Rx Allergies Allergy/AdvReac Type Severity Reaction Status Date / Time ibuprofen [From Motrin] Allergy Rash/Hives Verified 04/29/19 07:37 ketorolac tromethamine Allergy Rash/Hives Verified 04/29/19 07:37 [From Toradol] Physical Exam Vitals: Vital Signs Temp Pulse Resp BP Pulse Ox 04/29/19 12:35 93 18 164/100 98 04/29/19 11:47 93 18 172/112 98 04/29/19 11:35 92 18 170/121 99 04/29/19 09:48 82 18 166/112 98 04/29/19 08:48 80 18 168/104 96 04/29/19 07:48 79 18 196/112 97 04/29/19 06:46 98.2 F 88 20 185/108 100 Intake and Output 04/28/19 04/29/19 04/29/19 22:59 06:59 14:59 Other: Weight 78.018 kg - Constitutional General appearance: mild distress - Respiratory Respiratory: bilateral: CTA - Cardiovascular Rhythm: regular Heart sounds: normal: S1, S2 Abnormal Heart Sounds: systolic murmur Results 04/29/19 07:42 04/29/19 07:42 Cardiac Enzymes 04/29/19 04/29/19 Range/Units 07:42 07:42 AST 18 (17-59) U/L Troponin I <0.012 (0.000-0.034) ng/mL Coagulation 04/29/19 Range/Units 07:42 PT 10.8 (9.0-12.0) sec APTT 25.9 (22.0-30.0) sec CBC 04/29/19 Range/Units 07:42 WBC 2.7 L (3.8-10.6) k/uL RBC 4.48 (4.30-5.90) m/uL Hgb 12.6 L (13.0-17.5) gm/dL Hct 41.3 (39.0-53.0) % Plt Count 280 (150-450) k/uL Comprehensive Metabolic Panel 04/29/19 Range/Units 07:42 Sodium 141 (137-145) mmol/L Potassium 4.1 (3.5-5.1) mmol/L Chloride 110 H (98-107) mmol/L Carbon Dioxide 21 L (22-30) mmol/L BUN 7 L (9-20) mg/dL Creatinine 0.57 L (0.66-1.25) mg/dL Glucose 108 H (74-99) mg/dL Calcium 9.3 (8.4-10.2) mg/dL AST 18 (17-59) U/L ALT 7 L (21-72) U/L Alkaline Phosphatase 81 (38-126) U/L Total Protein 7.3 (6.3-8.2) g/dL Albumin 4.5 (3.5-5.0) g/dL Current Medications Generic Name Dose Route Start Last Admin Trade Name Freq PRN Reason Stop Dose Admin Aspirin 325 mg 04/30/19 09:00 Aspirin PO DAILY [facility] Carvedilol 6.25 mg 04/29/19 17:30 Coreg PO BID-W/MEALS [facility] Heparin Sodium/Sodium Chloride 250 mls @ 9.362 mls/hr 04/29/19 09:00 04/29/19 11:41 25,000 unit/ Sodium Chloride IV 12 units/kg/hr .Q24H [place] 9.362 mls/hr Administration Protocol 12 UNITS/KG/HR Nitroglycerin 0.4 mg 04/29/19 09:00 04/29/19 11:37 Nitrostat SUBLINGUAL 0.4 mg Q5M PRN Administration Chest Pain Intake and Output 04/28/19 04/29/19 04/29/19 22:59 06:59 14:59 Other: Weight 78.018 kg 04/29/19 07:42 04/29/19 07:42 Assessment and Plan Assessment: Assessment #1 chest discomfort, still mild in intensity, and still ongoing #2 known CAD and prior stenting of the LAD as well as diagonal as well as RCA #3 hypertension doesn't seems to be well-controlled #4 dyslipidemia #5 mild aortic stenosis Plan #1 we will rule out acute coronary event. We'll follow-up on serial cardiac enzymes #2 get the blood pressure under good control, I will resume the Coreg and continue the rest of his medications #3 if the patient continues to have chest discomfort in spite of normal blood pressure, I would recommend proceeding with coronary angiogram #4 follow-up with the patient Thank you for allowing us participate in his care
--- NOTE | 2019-04-29 14:10 | P.HPIM ---
History of Present Illness Patient is 61-year-old male with history of coronary artery disease and presented to the LAD came in with complaints of retrosternal chest pain pressure-like sensation moderate severity along with diaphoresis radiating to the left neck. Patient was evaluated by cardiology and recommending cardiac catheterization patient had a stress test about any ago. Patient is a well- known patient to me patient does have narcotic seeking behavior and does did have multiple hospitalizations here in the other hospitals as well. Patient is requesting for his morphine pills will benefit with the pharmacy and patient was started back on these medications if he is already taking them at home no additional opiates will be provided. Patient had a normal LV function the past with mild aortic stenosis EKG shows sinus rhythm without any significant acute ST-T wave changes troponins are negative Review of Systems REVIEW OF SYSTEMS: CONSTITUTIONAL: No fever, no malaise, no fatigue. HEENT: No recent visual problems or hearing problems. Denied any sore throat. CARDIOVASCULAR: No orthopnea, PND, no palpitations, no syncope. PULMONARY: No shortness of breath, no cough, no hemoptysis. GASTROINTESTINAL: No diarrhea, no nausea, no vomiting, no abdominal pain. NEUROLOGICAL: No headaches, no weakness, no numbness. HEMATOLOGICAL: Denies any bleeding or petechiae. GENITOURINARY: Denies any burning micturition, frequency, or urgency. MUSCULOSKELETAL/RHEUMATOLOGICAL: Denies any joint pain, swelling, or any muscle pain. ENDOCRINE: Denies any polyuria or polydipsia. The rest of the 14-point review of systems is negative. Past Medical History Past Medical History: Coronary Artery Disease (CAD), Chest Pain / Angina, COPD, Deep Vein Thrombosis (DVT), GERD/Reflux, Hyperlipidemia, Hypertension, Osteoarthritis (OA), Thyroid Disorder Additional Past Medical History / Comment(s): Occasional palpitations, gastritis, small hiatal hernia, diverticular dx, pt states years ago he had PUD, chronic low back pain, chronic pain syndrome, migraines, DVT L arm, numbness/tingling bilateral lower legs, bilateral past R hand fracture, arthritis multiple joints, hyperthyroid, sinus problems. History of Any Multi-Drug Resistant Organisms: None Reported Past Surgical History: Back Surgery, Cholecystectomy, Heart Catheterization With Stent, Orthopedic Surgery Additional Past Surgical History / Comment(s): EGDs/colonoscopies, multiple low back surgeries, bilateral arm and bilateral thigh surgeries for brown recluse spider bites with infection, morphine pain pump insertion and removal due to infection, PCI with stents, L rotator cuff repair, L knee arthroscopy, cervical fusion/cage, R cataract removal. Past Anesthesia/Blood Transfusion Reactions: No Reported Reaction Additional Past Anesthesia/Blood Transfusion Reaction / Comment(s): Pt states after cervical fusion he "" in the recovery room but does not know cause- he was"gone for 8 minutes" and states he was resusitated. Pt received blood after back surgery and tolerated it well. Date of Last Stent Placement:: 10/12/17 Past Psychological History: No Psychological Hx Reported Additional Psychological History / Comment(s): He is fairly independent. He uses a walker to ambulate. Pt no longer drives. Smoking Status: Former smoker Past Alcohol Use History: None Reported Additional Past Alcohol Use History / Comment(s): Pt started smoking in 1973 and quit in 1984 Past Drug Use History: None Reported - Past Family History Father Family Medical History: No Reported History Additional Family Medical History / Comment(s): Father had back problems. He lived to be 82 yrs old. Mother Family Medical History: Hypertension, Myocardial Infarction (CT) Additional Family Medical History / Comment(s): Mother of a CT at the age of 55yrs. Brother(s) Family Medical History: Cancer, COPD Additional Family Medical History / Comment(s): Leukemia Medications and Allergies Home Medications Medication Instructions Recorded Confirmed Type Aspirin 81 mg PO DAILY 01/21/17 04/29/19 History Fluticasone Nasal [place] [Flonase 1 spray EA NOSTRIL BID 04/20/17 04/29/19 History Nasal [place]] Morphine Sulfate ER [Ms Contin] 30 mg PO TID 10/10/17 04/29/19 History Atorvastatin [Lipitor] 80 mg PO HS #30 tab 10/12/17 04/29/19 Rx Prasugrel [Effient] 10 mg PO DAILY #30 tab 10/12/17 04/29/19 Rx tiZANidine [Zanaflex] 4 mg PO TID 02/26/18 04/29/19 History oxyCODONE HCL [oxyCODONE HCL (IR)] 15 mg PO TID PRN 08/01/18 04/29/19 History Famotidine [Pepcid] 20 mg PO DAILY #30 tablet 12/02/18 04/29/19 Rx Diazepam [Valium] 10 mg PO HS 12/15/18 04/29/19 History Carvedilol [Coreg*] 12.5 mg PO BID-W/MEALS #60 tab 02/08/19 04/29/19 Rx Ezetimibe [Zetia] 10 mg PO DAILY #30 tab 02/08/19 04/29/19 Rx Lisinopril [Zestril] 40 mg PO DAILY #60 tab 02/08/19 04/29/19 Rx cloNIDine HCL [Catapres] 0.1 mg PO BID #60 tab 02/08/19 04/29/19 Rx Ondansetron Odt [Zofran Odt] 4 mg PO Q8HR PRN #10 tab 04/23/19 04/29/19 Rx Allergies Allergy/AdvReac Type Severity Reaction Status Date / Time ibuprofen [From Motrin] Allergy Rash/Hives Verified 04/29/19 07:37 ketorolac tromethamine Allergy Rash/Hives Verified 04/29/19 07:37 [From Toradol] Physical Exam Vitals: Vital Signs Temp Pulse Resp BP Pulse Ox 04/29/19 12:35 93 18 164/100 98 04/29/19 11:47 93 18 172/112 98 04/29/19 11:35 92 18 170/121 99 04/29/19 09:48 82 18 166/112 98 04/29/19 08:48 80 18 168/104 96 04/29/19 07:48 79 18 196/112 97 04/29/19 06:46 98.2 F 88 20 185/108 100 Intake and Output 04/28/19 04/29/19 04/29/19 22:59 06:59 14:59 Other: Weight 78.018 kg PHYSICAL EXAMINATION: GENERAL: The patient is alert and oriented x3, not in any acute distress. Well developed, well nourished. HEENT: Pupils are round and equally reacting to light. EOMI. No scleral icterus. No conjunctival pallor. Normocephalic, atraumatic. No pharyngeal erythema. No thyromegaly. CARDIOVASCULAR: S1 and S2 present. No murmurs, rubs, or gallops. PULMONARY: Chest is clear to auscultation, no wheezing or crackles. ABDOMEN: Soft, nontender, nondistended, normoactive bowel sounds. No palpable organomegaly. MUSCULOSKELETAL: No joint swelling or deformity. EXTREMITIES: No cyanosis, clubbing, or pedal edema. NEUROLOGICAL: Gross neurological examination did not reveal any focal deficits. SKIN: No rashes. Results CBC & Chem 7: 04/29/19 07:42 04/29/19 07:42 Labs: Abnormal Lab Results - Last 24 Hours (Table) 04/29/19 04/29/19 04/29/19 Range/Units 07:42 07:42 08:52 WBC 2.7 L (3.8-10.6) k/uL Hgb 12.6 L (13.0-17.5) gm/dL MCHC 30.6 L (31.0-37.0) g/dL RDW 15.6 H (11.5-15.5) % Lymphocytes # 0.7 L (1.0-4.8) k/uL Chloride 110 H (98-107) mmol/L Carbon Dioxide 21 L (22-30) mmol/L BUN 7 L (9-20) mg/dL Creatinine 0.57 L (0.66-1.25) mg/dL Glucose 108 H (74-99) mg/dL POC Glucose (mg/dL) 105 H (75-99) mg/dL ALT 7 L (21-72) U/L Thrombosis Risk Factor Assmnt - Choose All That Apply Any of the Below Risk Factors Present?: Yes Each Factor Represents 1 point: Abnormal pulmonary function (COPD) Other Risk Factors: Yes Each Risk Factor Represents 2 Points: Age 61-74 years Each Risk Factor Represents 3 Points: History of DVT/PE Other congenital or acquired thrombophilia - If yes, enter type in comment: No Thrombosis Risk Factor Assessment Total Risk Factor Score: 6 Thrombosis Risk Factor Assessment Level: High Risk Assessment and Plan Plan: Chest pain: Patient the chest pain is typical in nature a previous like unstable angina although patient is known to malinger for opiates. And cardiology evaluated the patient the recommending cardiac catheterization if his chest pain doesn't get better. It 2 more sets of troponins and EKG sent rule out acute coronary syndromes -Known history of coronary artery disease with stenting to LAD as well as RCA -Hypertension -Dyslipidemia 7 history of DVT in the past -Gastroesophageal reflux disease -Hypothyroidism
[2019-04-29] MEDS ORDERED: ONDANSETRON ODT 4 MG TAB PO PRN (15:58)
[2019-04-29] MEDS: MORPHINE SULFATE ER 30 MG TABLET PO SCH ×2 (16:15→20:20)
[2019-04-29] MEDS: CARVEDILOL 12.5 MG TAB PO SCH (16:15)
[2019-04-29] MEDS ORDERED: CARVEDILOL 6.25 MG TAB PO SCH (17:30)
[2019-04-29] MEDS: cloNIDine HCL 0.1 MG TAB PO SCH (20:19)
[2019-04-29] MEDS: ATORVASTATIN 80 MG TAB PO SCH (20:19)
[2019-04-29] MEDS: FLUTICASONE 50MCG/SPRAY NASAL 16GM EA NOSTRIL SCH (21:34)
[2019-04-30] MEDS: tiZANidine 4 MG TAB PO PRN ×2 (00:18→16:01)
[2019-04-30 03:57] LABS: Cholesterol 147 mg/dL (<200); HDL Cholesterol 56 mg/dL (40-60); LDL Cholesterol,Calculated 74 mg/dL (0-99); Triglycerides 85 mg/dL (<150)
[2019-04-30] MEDS: FAMOTIDINE 20 MG TAB PO SCH (08:20)
[2019-04-30] MEDS: FLUTICASONE 50MCG/SPRAY NASAL 16GM EA NOSTRIL SCH ×2 (08:20→21:53)
[2019-04-30] MEDS: ASPIRIN 325 MG TAB PO SCH (08:21)
[2019-04-30] MEDS: LISINOPRIL 20 MG TAB PO SCH (08:21)
[2019-04-30] MEDS: EZETIMIBE 10 MG TAB PO SCH (08:21)
[2019-04-30] MEDS: cloNIDine HCL 0.1 MG TAB PO SCH ×2 (08:21→21:53)
[2019-04-30] MEDS: PRASUGREL 10 MG TAB PO SCH (08:21)
[2019-04-30] MEDS: CARVEDILOL 12.5 MG TAB PO SCH ×2 (08:21→18:41)
[2019-04-30] MEDS: MORPHINE SULFATE ER 30 MG TABLET PO SCH ×3 (08:22→21:52)
[2019-04-30] MEDS: HEPARIN SOD,PORK IN 0.45% NACL 25,000 UNIT in 0.45% NACL 1 250ML.BAG IV SCH (09:43)
--- NOTE | 2019-04-30 10:03 | P.PN ---
Subjective Progress Note Date: 04/30/19 This is a 63-year-old gentleman with history of ischemic heart disease with previous stent placement of the LAD and diagonal was admitted to the hospital with recurrent chest pains. He chest pains, Clinically appear to be atypical. So far his cardiac enzymes have been negative. His blood pressure is fl uctuating. His lungs are clear. Heart is regular. We'll continue his current medical therapy and increase activity as tolerated. As patient is still having pains, I will discuss with Dr. Moran regarding his plans for heart catheterization. Objective - Vital Signs Vital signs: Vital Signs Temp 98.1 F 04/30/19 07:25 Pulse 77 04/30/19 08:00 Resp 18 04/30/19 08:00 BP 188/102 04/30/19 07:25 Pulse Ox 98 04/30/19 08:07 Intake & Output 04/29/19 04/30/19 04/30/19 18:59 06:59 18:59 Intake Total 222 138.994 Balance 222 138.994 Intake: Intake, IV Titration 138.994 Amount Heparin Sod,Pork in 0.45% 138.994 NaCl 25,000 unit In 0.45 % NaCl 1 250ml.bag @ 12 UNITS/KG/HR 9.362 mls/hr IV .Q24H [facility] Rx#: [id number] Oral 222 Other: Voiding Method Toilet Toilet Toilet # Voids 1 1 - Exam GENERAL EXAM: Patient is alert and oriented and doesn't appear to be in any acute distress HEENT: Normocephalic. Normal reaction of pupils, equal size, normal range of extraocular motion. No erythema or exudates in the throat. NECK: No masses, no nuchal rigidity. CHEST: No chest wall deformity. LUNGS: Equal air entry with no crackles or wheeze. HEART: S1 and S2 normal with no audible mumurs or gallops. Regular rhythm, femorals equal on both sides.. ABDOMEN: No hepatosplenomegaly, normal bowel sounds, no guarding or rigidity. SKIN: No rashes CENTRAL NERVOUS SYSTEM: No focal deficits. EXTREMITIES: No cyanosis, clubbing or edema. - Labs CBC & Chem 7: 04/29/19 07:42 04/29/19 07:42 Labs: Abnormal Lab Results - Last 24 Hours (Table) 04/29/19 04/30/19 Range/Units 19:30 03:20 APTT 68.3 H 37.4 H (22.0-30.0) sec Assessment and Plan (1) Chest pain Current Visit: Yes Status: Acute Code(s): R07.9 - CHEST PAIN, UNSPECIFIED SNOMED Code(s): 09250814 (2) Accelerated hypertension Current Visit: No Status: Acute Code(s): I10 - ESSENTIAL (PRIMARY) HYPERTENSION SNOMED Code(s): 23491468 (3) CAD (coronary artery disease) Current Visit: No Status: Chronic Code(s): I25.10 - ATHSCL HEART DISEASE OF [place] CORONARY ARTERY W/O ANG PCTRS SNOMED Code(s): 12675950 Plan: Continue current medical therapy. I will discuss to Dr. Moran regarding cardiac catheterization
[2019-04-30 12:17] VITALS: BMI 24.0
[2019-04-30] MEDS ORDERED: hydrALAZINE HCL 50 MG TAB PO STA (14:21)
[2019-04-30] MEDS: ACETAMINOPHEN TAB 325 MG TAB PO PRN ×2 (14:41→23:13)
--- NOTE | 2019-04-30 16:06 | P.PN ---
Subjective 63-year-old male with a history of coronary artery disease is admitted for Typical chest pain will undergo cardiac catheterization on Thursday. Patient does have narcotic seeking behavior Constitutional: Denied any fatigue denied any fever. Cardio vascular: denied any chest pain, palpitations Gastrointestinal denied any nausea vomiting Pulmonary: Denied any shortness of breath cough Neurologic denied any new focal deficits All inpatient medications were reviewed and appropriate changes in these medications as dictated in the interval history and assessment and plan. Objective - Vital Signs Vital signs: Vital Signs Temp 97.9 F 04/30/19 11:45 Pulse 104 H 04/30/19 11:45 Resp 18 04/30/19 12:00 BP 111/76 04/30/19 14:24 Pulse Ox 98 04/30/19 11:45 Intake & Output 04/29/19 04/30/19 04/30/19 18:59 06:59 18:59 Intake Total 222 138.994 240 Balance 222 138.994 240 Weight 78.018 kg Intake: Intake, IV Titration 138.994 Amount Heparin Sod,Pork in 0.45% 138.994 NaCl 25,000 unit In 0.45 % NaCl 1 250ml.bag @ 12 UNITS/KG/HR 9.362 mls/hr IV .Q24H [facility] Rx#: [id number] Oral 222 240 Other: Voiding Method Toilet Toilet Toilet # Voids 1 1 - Exam PHYSICAL EXAMINATION: GENERAL: The patient is alert and oriented x3, not in any acute distress. Well developed, well nourished. HEENT: Pupils are round and equally reacting to light. EOMI. No scleral icterus. No conjunctival pallor. Normocephalic, atraumatic. No pharyngeal erythema. No thyromegaly. CARDIOVASCULAR: S1 and S2 present. No murmurs, rubs, or gallops. PULMONARY: Chest is clear to auscultation, no wheezing or crackles. ABDOMEN: Soft, nontender, nondistended, normoactive bowel sounds. No palpable organomegaly. MUSCULOSKELETAL: No joint swelling or deformity. EXTREMITIES: No cyanosis, clubbing, or pedal edema. NEUROLOGICAL: Gross neurological examination did not reveal any focal deficits. SKIN: No rashes. - Labs CBC & Chem 7: 04/29/19 07:42 04/29/19 07:42 Labs: Abnormal Lab Results - Last 24 Hours (Table) 04/29/19 04/30/19 Range/Units 19:30 03:20 APTT 68.3 H 37.4 H (22.0-30.0) sec Assessment and Plan Plan: Chest pain: Patient the chest pain is typical in nature a previous like unstable angina although patient is known to malinger for opiates. And cardiology evaluated the patient the recommending cardiac catheterization which showed patient will undergo on Thursday patient's troponins are negative. -Known history of coronary artery disease with stenting to LAD as well as RCA -Hypertension -Dyslipidemia - history of DVT in the past -Gastroesophageal reflux disease -Hypothyroidism
[2019-04-30] MEDS: ATORVASTATIN 80 MG TAB PO SCH (21:53)
[2019-05-01] MEDS: tiZANidine 4 MG TAB PO PRN ×2 (00:10→11:32)
[2019-05-01] MEDS: ACETAMINOPHEN TAB 325 MG TAB PO PRN (05:54)
--- NOTE | 2019-05-01 08:27 | P.PN ---
Subjective Progress Note Date: 05/01/19 This 63-year-old gentleman with history of ischemic heart disease and previous stent placement, is admitted to the hospital with recurrent chest pain. Patient was evaluated by Dr. Moran. Patient was advised maximum medical therapy and cardiac catheterization if the pain persists. Patient claims that he still having chest pains. Most probably, he'll undergo cardiac catheterization tomorrow. Meanwhile we'll continue his current medical therapy. His blood pressure has been fluctuating. She could increase the dose of the Catapres. Clinically otherwise patient is stable. Further recommendations depend upon the cardiac catheterization Objective - Vital Signs Vital signs: Vital Signs Temp 97.7 F 05/01/19 07:00 Pulse 84 05/01/19 07:00 Resp 18 05/01/19 07:00 BP 165/107 05/01/19 07:00 Pulse Ox 96 05/01/19 07:00 Intake & Output 04/30/19 05/01/19 05/01/19 18:59 06:59 18:59 Intake Total 440 100 Balance 440 100 Weight 78.018 kg Intake: Oral 240 Other 200 100 Other: Voiding Method Toilet Toilet # Voids 1 - Exam GENERAL EXAM: Patient is alert and oriented and doesn't appear to be in any acute distress HEENT: Normocephalic. Normal reaction of pupils, equal size, normal range of extraocular motion. No erythema or exudates in the throat. NECK: No masses, no nuchal rigidity. CHEST: No chest wall deformity. LUNGS: Equal air entry with no crackles or wheeze. HEART: S1 and S2 normal with no audible mumurs or gallops. Regular rhythm, femorals equal on both sides.. ABDOMEN: No hepatosplenomegaly, normal bowel sounds, no guarding or rigidity. SKIN: No rashes CENTRAL NERVOUS SYSTEM: No focal deficits. EXTREMITIES: No cyanosis, clubbing or edema. - Labs CBC & Chem 7: 04/29/19 07:42 04/29/19 07:42 Labs: Abnormal Lab Results - Last 24 Hours (Table) 05/01/19 Range/Units 00:33 APTT 57.5 H (22.0-30.0) sec Assessment and Plan (1) Chest pain Current Visit: Yes Status: Acute Code(s): R07.9 - CHEST PAIN, UNSPECIFIED SNOMED Code(s): 38628863 (2) Accelerated hypertension Current Visit: No Status: Acute Code(s): I10 - ESSENTIAL (PRIMARY) HYPERTENSION SNOMED Code(s): 08514373 (3) CAD (coronary artery disease) Current Visit: No Status: Chronic Code(s): I25.10 - ATHSCL HEART DISEASE OF [place] CORONARY ARTERY W/O ANG PCTRS SNOMED Code(s): 91104059 Plan: Patient is clinically stable, though is still having recurrent chest pains. Plan for cardiac catheterization tomorrow. Increase the dose of the Catapres for blood pressure control.
[2019-05-01] MEDS: PRASUGREL 10 MG TAB PO SCH (08:46)
[2019-05-01] MEDS: FLUTICASONE 50MCG/SPRAY NASAL 16GM EA NOSTRIL SCH (08:46)
[2019-05-01] MEDS: ASPIRIN 325 MG TAB PO SCH (08:47)
[2019-05-01] MEDS: MORPHINE SULFATE ER 30 MG TABLET PO SCH ×2 (08:47→15:39)
[2019-05-01] MEDS: FAMOTIDINE 20 MG TAB PO SCH (08:47)
[2019-05-01] MEDS: EZETIMIBE 10 MG TAB PO SCH (08:47)
[2019-05-01] MEDS: cloNIDine HCL 0.1 MG TAB PO SCH ×2 (08:47→15:39)
[2019-05-01] MEDS: LISINOPRIL 20 MG TAB PO SCH (08:47)
[2019-05-01] MEDS: CARVEDILOL 12.5 MG TAB PO SCH ×2 (08:47→17:10)
[2019-05-01] MEDS: HEPARIN SOD,PORK IN 0.45% NACL 25,000 UNIT in 0.45% NACL 1 250ML.BAG IV SCH ×2 (08:48→18:55)
--- NOTE | 2019-05-01 15:29 | P.PN ---
Subjective 63-year-old male with a history of coronary artery disease is admitted for Typical chest pain will undergo cardiac catheterization on Thursday. Patient does have narcotic seeking behavior 05/01/2019 No overnight events patient will undergo cardiac catheterization tomorrow Constitutional: Denied any fatigue denied any fever. Cardio vascular: denied any chest pain, palpitations Gastrointestinal denied any nausea vomiting Pulmonary: Denied any shortness of breath cough Neurologic denied any new focal deficits All inpatient medications were reviewed and appropriate changes in these medications as dictated in the interval history and assessment and plan. Objective - Vital Signs Vital signs: Vital Signs Temp 98.1 F 05/01/19 11:27 Pulse 73 05/01/19 12:00 Resp 18 05/01/19 12:00 BP 162/96 05/01/19 11:27 Pulse Ox 98 05/01/19 11:27 Intake & Output 04/30/19 05/01/19 05/01/19 18:59 06:59 18:59 Intake Total 440 720 Balance 440 720 Weight 78.018 kg Intake: Oral 240 620 Other 200 100 Other: Voiding Method Toilet Toilet Toilet # Voids 1 - Exam PHYSICAL EXAMINATION: GENERAL: The patient is alert and oriented x3, not in any acute distress. Well developed, well nourished. HEENT: Pupils are round and equally reacting to light. EOMI. No scleral icterus. No conjunctival pallor. Normocephalic, atraumatic. No pharyngeal erythema. No thyromegaly. CARDIOVASCULAR: S1 and S2 present. No murmurs, rubs, or gallops. PULMONARY: Chest is clear to auscultation, no wheezing or crackles. ABDOMEN: Soft, nontender, nondistended, normoactive bowel sounds. No palpable organomegaly. MUSCULOSKELETAL: No joint swelling or deformity. EXTREMITIES: No cyanosis, clubbing, or pedal edema. NEUROLOGICAL: Gross neurological examination did not reveal any focal deficits. SKIN: No rashes. - Labs CBC & Chem 7: 04/29/19 07:42 04/29/19 07:42 Labs: Abnormal Lab Results - Last 24 Hours (Table) 05/01/19 Range/Units 00:33 APTT 57.5 H (22.0-30.0) sec Assessment and Plan Plan: Chest pain: Patient the chest pain is typical in nature a previous like unstable angina although patient is known to malinger for opiates. And cardiology evaluated the patient the recommending cardiac catheterization which showed patient will undergo on Thursday patient's troponins are negative. -Known history of coronary artery disease with stenting to LAD as well as RCA -Hypertension -Dyslipidemia - history of DVT in the past -Gastroesophageal reflux disease -Hypothyroidism
[2019-05-01 19:38] VITALS: BP 167/97; PULSE 99; RESP 15; TEMP 98.5
--- NOTE | 2019-05-03 15:05 | P.DS ---
Providers Date of admission: 05/01/19 08:27 Expected date of discharge: 05/02/19 Attending physician: Joselito Ng Consults: 04/29/19 09:00 Consult Physician Urgent Consulting Provider: Sanju Montano Consult Reason/Comments: chest pain Do you want consulting provider notified?: Yes Primary care physician: Stated None Hospital Course: Patient left AGAINST MEDICAL ADVICE Patient Condition at Discharge: Fair Plan - Discharge Summary Discharge Rx Participant: No New Discharge Prescriptions: No Action Aspirin 81 mg PO DAILY Fluticasone Nasal [place] [Flonase Nasal [place]] 1 spray EA NOSTRIL BID Morphine Sulfate ER [Ms Contin] 30 mg PO TID Atorvastatin [Lipitor] 80 mg PO HS #30 tab Prasugrel [Effient] 10 mg PO DAILY #30 tab tiZANidine [Zanaflex] 4 mg PO TID oxyCODONE HCL [oxyCODONE HCL (IR)] 15 mg PO TID PRN PRN Reason: Breakthrough Pain Famotidine [Pepcid] 20 mg PO DAILY #30 tablet cloNIDine HCL [Catapres] 0.1 mg PO BID #60 tab Carvedilol [Coreg*] 12.5 mg PO BID-W/MEALS #60 tab Lisinopril [Zestril] 40 mg PO DAILY #60 tab Ezetimibe [Zetia] 10 mg PO DAILY #30 tab Ondansetron Odt [Zofran Odt] 4 mg PO Q8HR PRN #10 tab PRN Reason: Nausea Discharge Medication List Aspirin 81 mg PO DAILY 01/21/17 [History] Fluticasone Nasal [place] [Flonase Nasal [place]] 1 spray EA NOSTRIL BID 04/20/17 [History] Morphine Sulfate ER [Ms Contin] 30 mg PO TID 10/10/17 [History] Atorvastatin [Lipitor] 80 mg PO HS #30 tab 10/12/17 [Rx] Prasugrel [Effient] 10 mg PO DAILY #30 tab 10/12/17 [Rx] tiZANidine [Zanaflex] 4 mg PO TID 02/26/18 [History] oxyCODONE HCL [oxyCODONE HCL (IR)] 15 mg PO TID PRN 08/01/18 [History] Famotidine [Pepcid] 20 mg PO DAILY #30 tablet 12/02/18 [Rx] Carvedilol [Coreg*] 12.5 mg PO BID-W/MEALS #60 tab 02/08/19 [Rx] Ezetimibe [Zetia] 10 mg PO DAILY #30 tab 02/08/19 [Rx] Lisinopril [Zestril] 40 mg PO DAILY #60 tab 02/08/19 [Rx] cloNIDine HCL [Catapres] 0.1 mg PO BID #60 tab 02/08/19 [Rx] Ondansetron Odt [Zofran Odt] 4 mg PO Q8HR PRN #10 tab 04/23/19 [Rx] Follow up Appointment(s)/Referral(s): None,Stated [Primary Care Provider] - 1-2 days Discharge Disposition: Left Against Medical Advice
== END 2019-05-01 20:32 | disposition left against medical advice (07) | DRG 313 ==
LOC: EC 06:41 → 1SOBS 09:15 → OBSVTOIN 05-01 08:27
PROVIDERS: ADMIT Hospitalist; ATTEND Hospitalist
DX: R07.89 Other chest pain (principal); E03.9 Hypothyroidism, unspecified; E78.5 Hyperlipidemia, unspecified; G89.4 Chronic pain syndrome; I10 Essential (primary) hypertension; I25.10 Atherosclerotic heart disease of native coronary artery without angina pectoris; J44.9 Chronic obstructive pulmonary disease, unspecified; K21.9 Gastro-esophageal reflux disease without esophagitis; Z76.5 Malingerer [conscious simulation]; Z79.02 Long term (current) use of antithrombotics/antiplatelets; Z79.82 Long term (current) use of aspirin; Z79.899 Other long term (current) drug therapy; Z80.6 Family history of leukemia; Z82.49 Family history of ischemic heart disease and other diseases of the circulatory system; Z82.5 Family history of asthma and other chronic lower respiratory diseases; Z86.718 Personal history of other venous thrombosis and embolism; Z87.11 Personal history of peptic ulcer disease; Z87.891 Personal history of nicotine dependence; Z95.5 Presence of coronary angioplasty implant and graft; Z98.41 Cataract extraction status, right eye; M15.9 Polyosteoarthritis, unspecified; M54.5 Low back pain; K57.90 Diverticulosis of intestine, part unspecified, without perforation or abscess without bleeding; K44.9 Diaphragmatic hernia without obstruction or gangrene; Z90.49 Acquired absence of other specified parts of digestive tract; Z98.1 Arthrodesis status; Z86.74 Personal history of sudden cardiac arrest; Z88.6 Allergy status to analgesic agent; Z88.5 Allergy status to narcotic agent
CPT/HCPCS: 36415; 71046; 80053; 80061; 83735; 84484; 85025; 85610; 85730; 93005; 94760; 96365; 96366; 96375; 96376; 99285

== ENCOUNTER 2019-05-20 06:59 | Inpatient (IN) | payer MEDICARE ==
[2019-05-20] MEDS ORDERED: NITROGLYCERIN SL TABS 0.4 MG TAB SUBLINGUAL STA (07:14)
[2019-05-20] MEDS ORDERED: MORPHINE SULFATE 4 MG/ML SYRINGE IVP STA ×2 (07:14→09:51)
--- NOTE | 2019-05-20 07:58 | ED ---
General Adult HPI - General Chief complaint: Chest Pain Stated complaint: Chest pain Time Seen by Provider: 05/20/19 07:04 Source: patient, RN notes reviewed, old records reviewed Mode of arrival: wheelchair Limitations: no limitations - History of Present Illness Initial comments: 63-year-old male history coronary artery disease presents for evaluation of left-sided chest pain which began approximately 4 hours prior to arrival. Patient states this pain woke him from his sleep. He reports some radiation to his left arm and left jaw. Reports the pain as a pressure sensation. He's had some nausea with no vomiting. No abdominal pain. No cough or dyspnea. No fever or chills. - Related Data Home Medications Medication Instructions Recorded Confirmed Aspirin 81 mg PO DAILY 01/21/17 05/20/19 Fluticasone Nasal [place] [Flonase 1 spray EA NOSTRIL BID 04/20/17 05/20/19 Nasal [place]] Morphine Sulfate ER [Ms Contin] 30 mg PO TID 10/10/17 05/20/19 tiZANidine [Zanaflex] 4 mg PO TID 02/26/18 05/20/19 oxyCODONE HCL [oxyCODONE HCL (IR)] 15 mg PO TID PRN 08/01/18 05/20/19 Previous Rx's Medication Instructions Recorded Atorvastatin [Lipitor] 80 mg PO HS #30 tab 10/12/17 Prasugrel [Effient] 10 mg PO DAILY #30 tab 10/12/17 Famotidine [Pepcid] 20 mg PO DAILY #30 tablet 12/02/18 Carvedilol [Coreg*] 12.5 mg PO BID-W/MEALS #60 tab 02/08/19 Ezetimibe [Zetia] 10 mg PO DAILY #30 tab 02/08/19 Lisinopril [Zestril] 40 mg PO DAILY #60 tab 02/08/19 cloNIDine HCL [Catapres] 0.1 mg PO BID #60 tab 02/08/19 Ondansetron Odt [Zofran Odt] 4 mg PO Q8HR PRN #10 tab 04/23/19 Allergies Allergy/AdvReac Type Severity Reaction Status Date / Time ibuprofen [From Motrin] Allergy Rash/Hives Verified 05/20/19 09:53 ketorolac tromethamine Allergy Rash/Hives Verified 05/20/19 09:53 [From Toradol] Review of Systems ROS Statement: Those systems with pertinent positive or pertinent negative responses have been documented in the HPI. ROS Other: All systems not noted in ROS Statement are negative. Past Medical History Past Medical History: Coronary Artery Disease (CAD), Chest Pain / Angina, COPD, Deep Vein Thrombosis (DVT), GERD/Reflux, Hyperlipidemia, Hypertension, Osteoarthritis (OA), Thyroid Disorder Additional Past Medical History / Comment(s): Occasional palpitations, gastritis, small hiatal hernia, diverticular dx, pt states years ago he had PUD, chronic low back pain, chronic pain syndrome, migraines, DVT L arm, numbness/tingling bilateral lower legs, bilateral past R hand fracture, arthritis multiple joints, hyperthyroid, sinus problems. History of Any Multi-Drug Resistant Organisms: None Reported Past Surgical History: Back Surgery, Cholecystectomy, Heart Catheterization With Stent, Orthopedic Surgery Additional Past Surgical History / Comment(s): EGDs/colonoscopies, multiple low back surgeries, bilateral arm and bilateral thigh surgeries for brown recluse spider bites with infection, morphine pain pump insertion and removal due to infection, PCI with stents, L rotator cuff repair, L knee arthroscopy, cervical fusion/cage, R cataract removal. Past Anesthesia/Blood Transfusion Reactions: No Reported Reaction Additional Past Anesthesia/Blood Transfusion Reaction / Comment(s): Pt states after cervical fusion he "" in the recovery room but does not know cause- he was"gone for 8 minutes" and states he was resusitated. Pt received blood after back surgery and tolerated it well. Date of Last Stent Placement:: 10/12/17 Past Psychological History: No Psychological Hx Reported Smoking Status: Former smoker Past Alcohol Use History: None Reported Past Drug Use History: None Reported - Past Family History Father Family Medical History: No Reported History Additional Family Medical History / Comment(s): Father had back problems. He lived to be 82 yrs old. Mother Family Medical History: Hypertension, Myocardial Infarction ([place]) Additional Family Medical History / Comment(s): Mother of a [place] at the age of 55yrs. Brother(s) Family Medical History: Cancer, COPD Additional Family Medical History / Comment(s): Leukemia General Exam Limitations: no limitations General appearance: alert, in no apparent distress Head exam: Present: atraumatic, normocephalic Eye exam: Present: normal appearance, PERRL ENT exam: Present: normal exam Neck exam: Present: normal inspection. Absent: tenderness, meningismus Respiratory exam: Present: normal lung sounds bilaterally. Absent: respiratory distress, wheezes, rales Cardiovascular Exam: Present: regular rate, normal rhythm GI/Abdominal exam: Present: soft. Absent: distended, tenderness, guarding Extremities exam: Present: normal inspection, normal capillary refill. Absent: pedal edema Neurological exam: Present: alert, oriented X3 Psychiatric exam: Present: normal affect, normal mood Skin exam: Present: warm, dry, intact. Absent: cyanosis, diaphoretic Course Vital Signs 05/20/19 05/20/19 05/20/19 07:00 07:27 07:31 Temperature 97.4 F L Pulse Rate 102 H 84 Respiratory 18 16 22 Rate Blood Pressure 166/94 O2 Sat by Pulse 99 98 Oximetry 05/20/19 05/20/19 05/20/19 08:00 08:30 09:00 Temperature Pulse Rate 91 71 Respiratory 20 15 20 Rate Blood Pressure 136/107 166/121 190/110 O2 Sat by Pulse 99 100 98 Oximetry 05/20/19 05/20/19 09:30 09:56 Temperature Pulse Rate 78 Respiratory 21 21 Rate Blood Pressure 190/120 190/120 O2 Sat by Pulse 99 99 Oximetry EKG Findings - EKG Comments: EKG Findings:: EKG: Normal sinus rhythm, rate of 82, WI interval 158, QRS duration 94, QTC 446, no ST segment elevation. Medical Decision Making - Medical Decision Making Review the medical record does indicate that this patient's left AGAINST MEDICAL ADVICE and left with recommendation for heart catheterization according to cardiology documentation. He will be admitted with cardiology on consult for reevaluation. Testing in the emergency department is negative. Chest x-ray neg ative for focal pneumonia or pneumothorax. Patient has normal CBC, normal CMP, negative initial troponin. Started on heparin and admitted for further evaluation. Case discussed with Dr. Govea. - Lab Data Result diagrams: 05/20/19 08:33 05/20/19 08:33 Lab Results 05/20/19 05/20/19 05/20/19 Range/Units 08:33 08:33 08:33 WBC 4.5 (3.8-10.6) k/uL RBC 4.57 (4.30-5.90) m/uL Hgb 12.8 L (13.0-17.5) gm/dL Hct 41.1 (39.0-53.0) % MCV 89.9 (80.0-100.0) fL MCH 28.0 (25.0-35.0) pg MCHC 31.2 (31.0-37.0) g/dL RDW 14.7 (11.5-15.5) % Plt Count 481 H (150-450) k/uL Neutrophils % 61 % Lymphocytes % 29 % Monocytes % 6 % Eosinophils % 2 % Basophils % 1 % Neutrophils # 2.7 (1.3-7.7) k/uL Lymphocytes # 1.3 (1.0-4.8) k/uL Monocytes # 0.3 (0-1.0) k/uL Eosinophils # 0.1 (0-0.7) k/uL Basophils # 0.0 (0-0.2) k/uL PT 10.5 (9.0-12.0) sec INR 1.0 (<1.2) APTT 25.1 (22.0-30.0) sec Sodium 141 (137-145) mmol/L Potassium 4.1 (3.5-5.1) mmol/L Chloride 106 (98-107) mmol/L Carbon Dioxide 26 (22-30) mmol/L Anion Gap 9 mmol/L BUN 9 (9-20) mg/dL Creatinine 0.65 L (0.66-1.25) mg/dL Est GFR (CKD-EPI)AfAm >90 (>60 ml/min/1.73 sqM) Est GFR (CKD-EPI)NonAf >90 (>60 ml/min/1.73 sqM) Glucose 116 H (74-99) mg/dL Calcium 9.9 (8.4-10.2) mg/dL Magnesium 1.9 (1.6-2.3) mg/dL Total Bilirubin 0.6 (0.2-1.3) mg/dL AST 17 (17-59) U/L ALT 18 L (21-72) U/L Alkaline Phosphatase 86 (38-126) U/L Troponin I (0.000-0.034) ng/mL Total Protein 7.4 (6.3-8.2) g/dL Albumin 4.5 (3.5-5.0) g/dL Lipase 39 (23-300) U/L 05/20/19 Range/Units 08:33 WBC (3.8-10.6) k/uL RBC (4.30-5.90) m/uL Hgb (13.0-17.5) gm/dL Hct (39.0-53.0) % MCV (80.0-100.0) fL MCH (25.0-35.0) pg MCHC (31.0-37.0) g/dL RDW (11.5-15.5) % Plt Count (150-450) k/uL Neutrophils % % Lymphocytes % % Monocytes % % Eosinophils % % Basophils % % Neutrophils # (1.3-7.7) k/uL Lymphocytes # (1.0-4.8) k/uL Monocytes # (0-1.0) k/uL Eosinophils # (0-0.7) k/uL Basophils # (0-0.2) k/uL PT (9.0-12.0) sec INR (<1.2) APTT (22.0-30.0) sec Sodium (137-145) mmol/L Potassium (3.5-5.1) mmol/L Chloride (98-107) mmol/L Carbon Dioxide (22-30) mmol/L Anion Gap mmol/L BUN (9-20) mg/dL Creatinine (0.66-1.25) mg/dL Est GFR (CKD-EPI)AfAm (>60 ml/min/1.73 sqM) Est GFR (CKD-EPI)NonAf (>60 ml/min/1.73 sqM) Glucose (74-99) mg/dL Calcium (8.4-10.2) mg/dL Magnesium (1.6-2.3) mg/dL Total Bilirubin (0.2-1.3) mg/dL AST (17-59) U/L ALT (21-72) U/L Alkaline Phosphatase (38-126) U/L Troponin I <0.012 (0.000-0.034) ng/mL Total Protein (6.3-8.2) g/dL Albumin (3.5-5.0) g/dL Lipase (23-300) U/L Critical Care Time Critical Care Time: Yes Total Critical Care Time: 35 Disposition Clinical Impression: Unstable angina pectoris Disposition: ADMITTED IP TO THIS [facility] Condition: Stable Is patient prescribed a controlled substance at d/c from ED?: No Referrals: None,Stated [Primary Care Provider] - 1-2 days Decision to Admit Reason: Admit from EC Decision Date: 05/20/19 Decision Time: 10:07
[2019-05-20 09:00] LABS: Basophils % (A) 1 %; Eosinophils # (A) 0.1 k/uL (0-0.7); Eosinophils % (A) 2 %; HCT 41.1 % (39.0-53.0); HGB 12.8 gm/dL (13.0-17.5); Lymphocytes # (A) 1.3 k/uL (1.0-4.8); Lymphocytes % (A) 29 %; MCHC 31.2 g/dL (31.0-37.0); MCV 89.9 fL (80.0-100.0); Mean Platelet Volume 6.2; Monocytes # (A) 0.3 k/uL (0-1.0); Monocytes % (A) 6 %; Neutrophils # (A) 2.7 k/uL (1.3-7.7); Neutrophils % (A) 61 %; Platelet Count 481 k/uL (150-450); RBC 4.57 m/uL (4.30-5.90); RDW 14.7 % (11.5-15.5); WBC 4.5 k/uL (3.8-10.6)
[2019-05-20 09:09] LABS: Partial Thromboplastin Time 25.1 sec (22.0-30.0); Prothrombin Time 10.5 sec (9.0-12.0)
[2019-05-20 09:11] LABS: ALT 18 U/L (21-72); AST 17 U/L (17-59); African American GFR (CKD) >90 (>60 ml/min/1.73 sqM); Albumin 4.5 g/dL (3.5-5.0); Alkaline Phosphatase 86 U/L (38-126); Anion Gap 9 mmol/L; Blood Urea Nitrogen 9 mg/dL (9-20); Calcium 9.9 mg/dL (8.4-10.2); Carbon Dioxide 26 mmol/L (22-30); Chloride 106 mmol/L (98-107); Glucose 116 mg/dL (74-99); Lipase 39 U/L (23-300); Magnesium 1.9 mg/dL (1.6-2.3); Potassium 4.1 mmol/L (3.5-5.1); Sodium 141 mmol/L (137-145); Total Bilirubin 0.6 mg/dL (0.2-1.3); Total Protein 7.4 g/dL (6.3-8.2)
--- NOTE | 2019-05-20 09:47 | XR ---
EXAMINATION TYPE: XR chest 2V DATE OF EXAM: 05/20/2019 COMPARISON: 04/29/2019 HISTORY: 63-year-old male with chest pain TECHNIQUE: AP and lateral views FINDINGS: Heart normal size. Mild elongation thoracic aorta. Some strandy areas of atelectasis are demonstrated . No consolidation or pleural effusion. Mild hyperinflation. ACDF hardware. IMPRESSION: Mild hyperinflation may reflect underlying emphysema. No acute process otherwise seen.
[2019-05-20] MEDS ORDERED: NITROGLYCERIN SL TABS 0.4 MG TAB SUBLINGUAL PRN (09:51)
[2019-05-20] MEDS ORDERED: ASPIRIN 325 MG TAB PO STA (09:51)
[2019-05-20] MEDS ORDERED: NALOXONE 0.4 MG/ML 1 ML VIAL IV PRN (10:03)
[2019-05-20] MEDS ORDERED: ONDANSETRON 4 MG/2 ML VIAL IVP PRN (10:03)
[2019-05-20] MEDS ORDERED: HEPARIN SODIUM,PORCINE 5,000 UNIT/ML 1 ML VIAL IV PRN (10:05)
[2019-05-20] MEDS ORDERED: HEPARIN SODIUM,PORCINE 5,000 UNIT/ML 1 ML VIAL IV ONE (10:05)
[2019-05-20] MEDS ORDERED: HEPARIN SOD,PORK IN 0.45% NACL 25,000 UNIT in 0.45% NACL 1 250ML.BAG IV SCH (10:15)
[2019-05-20] MEDS ORDERED: hydrALAZINE HCL 20 MG/ML 1 ML VIAL IVP STA (11:03)
[2019-05-20] MEDS ORDERED: LISINOPRIL 20 MG TAB PO STA ×2 (12:45→13:29)
[2019-05-20] MEDS ORDERED: CARVEDILOL 12.5 MG TAB PO STA (12:45)
[2019-05-20] MEDS ORDERED: cloNIDine HCL 0.1 MG TAB PO STA ×2 (12:45→13:29)
[2019-05-20] MEDS: MORPHINE SULFATE 4 MG/ML SYRINGE IV PRN ×3 (14:50→23:43)
[2019-05-20] MEDS: ACETAMINOPHEN TAB 325 MG TAB PO PRN (16:46)
[2019-05-20] MEDS: CARVEDILOL 12.5 MG TAB PO SCH (20:59)
[2019-05-20] MEDS: cloNIDine HCL 0.1 MG TAB PO SCH (20:59)
[2019-05-20] MEDS: ATORVASTATIN 80 MG TAB PO SCH (20:59)
[2019-05-20] MEDS: FLUTICASONE 50MCG/SPRAY NASAL 16GM EA NOSTRIL SCH (20:59)
--- NOTE | 2019-05-20 23:14 | P.HPIM ---
History of Present Illness H&P Date: 05/20/19 Chief Complaint: Chest pain Patient is a 63-year-old male with a known history of coronary artery disease with history of multiple stent placement, history of DVT, COPD, hypertension, hyperlipidemia and osteoarthritis and narcotic pain medication use came to ER with complaints of chest pain radiating to the left jaw and tingling sensation of the left fingers is with shortness of breath. Patient says that he also felt nauseated and diaphoretic. Patient had chest pain which began approximately 4 hours prior to arrival. Patient says that he woke up from pain this morning. Denied any complains of cough or sputum production. No leg swelling. No headache or dizziness or lightheadedness. Patient says that patient is continues to have chest pain 7/10 in severity. No fever no chills. Patient was recently admitted to the hospital and cardiology recommended cardiac catheterization but patient refused and left AMA. Patient came back to the hospital with similar complaints. EKG showed normal sinus rhythm. Chest x-ray showed mild hyperinflation may reflect underlying emphysema. No acute process otherwise seen. Review of Systems Constitutional: Patient denies any fever or chills . No generalized weakness or weight loss. Abdomen: Patient denied nausea vomiting and diarrhea and abdominal pain. Cardiovascular: Chest pain associated with nausea and diaphoresis. No palpitations. No leg swelling.. Respiratory: patient denied any cough is from production. No shortness of breath Neurologic: Patient denied any numbness or tingling headache. Musculoskeletal: Patient denies any complaints of joint swelling or deformity. Skin: Negative Psychiatric: Negative Endocrine: No heat or cold intolerance. No recent weight gain. Genitourinary: No dysuria or hematuria. All other 14 point ROS negative except the above Past Medical History Past Medical History: Coronary Artery Disease (CAD), Chest Pain / Angina, COPD, Deep Vein Thrombosis (DVT), GERD/Reflux, Hyperlipidemia, Hypertension, Osteoarthritis (OA), Thyroid Disorder Additional Past Medical History / Comment(s): Occasional palpitations, gastritis, small hiatal hernia, diverticular dx, pt states years ago he had PUD, chronic low back pain, chronic pain syndrome, migraines, DVT L arm, numbness/tingling bilateral lower legs, bilateral past R hand fracture, arthritis multiple joints, hyperthyroid, sinus problems. History of Any Multi-Drug Resistant Organisms: None Reported Past Surgical History: Back Surgery, Cholecystectomy, Heart Catheterization With Stent, Orthopedic Surgery Additional Past Surgical History / Comment(s): EGDs/colonoscopies, multiple low back surgeries, bilateral arm and bilateral thigh surgeries for brown recluse spider bites with infection, morphine pain pump insertion and removal due to infection, PCI with stents, L rotator cuff repair, L knee arthroscopy, cervical fusion/cage, R cataract removal. Past Anesthesia/Blood Transfusion Reactions: No Reported Reaction Additional Past Anesthesia/Blood Transfusion Reaction / Comment(s): Pt states after cervical fusion he "" in the recovery room but does not know cause- he was"gone for 8 minutes" and states he was resusitated. Pt received blood after back surgery and tolerated it well. Date of Last Stent Placement:: 10/12/17 Past Psychological History: No Psychological Hx Reported Smoking Status: Former smoker Past Alcohol Use History: None Reported Past Drug Use History: None Reported - Past Family History Father Family Medical History: No Reported History Additional Family Medical History / Comment(s): Father had back problems. He lived to be 82 yrs old. Mother Family Medical History: Hypertension, Myocardial Infarction ([place]) Additional Family Medical History / Comment(s): Mother of a [place] at the age of 55yrs. Brother(s) Family Medical History: Cancer, COPD Additional Family Medical History / Comment(s): Leukemia Medications and Allergies Home Medications Medication Instructions Recorded Confirmed Type Aspirin 81 mg PO DAILY 01/21/17 05/20/19 History Fluticasone Nasal [place] [Flonase 1 spray EA NOSTRIL BID 04/20/17 05/20/19 History Nasal [place]] Morphine Sulfate ER [Ms Contin] 30 mg PO TID 10/10/17 05/20/19 History Atorvastatin [Lipitor] 80 mg PO HS #30 tab 10/12/17 05/20/19 Rx Prasugrel [Effient] 10 mg PO DAILY #30 tab 10/12/17 05/20/19 Rx tiZANidine [Zanaflex] 4 mg PO TID 02/26/18 05/20/19 History oxyCODONE HCL [oxyCODONE HCL (IR)] 15 mg PO TID PRN 08/01/18 05/20/19 History Famotidine [Pepcid] 20 mg PO DAILY #30 tablet 12/02/18 05/20/19 Rx Carvedilol [Coreg*] 12.5 mg PO BID-W/MEALS #60 tab 02/08/19 05/20/19 Rx Ezetimibe [Zetia] 10 mg PO DAILY #30 tab 02/08/19 05/20/19 Rx Lisinopril [Zestril] 40 mg PO DAILY #60 tab 02/08/19 05/20/19 Rx cloNIDine HCL [Catapres] 0.1 mg PO BID #60 tab 02/08/19 05/20/19 Rx Ondansetron Odt [Zofran Odt] 4 mg PO Q8HR PRN #10 tab 04/23/19 05/20/19 Rx Allergies Allergy/AdvReac Type Severity Reaction Status Date / Time ibuprofen [From Motrin] Allergy Rash/Hives Verified 05/20/19 09:53 ketorolac tromethamine Allergy Rash/Hives Verified 05/20/19 09:53 [From Toradol] Physical Exam Vitals: Vital Signs Temp Pulse Resp BP Pulse Ox 05/20/19 15:30 90 31 H 181/121 98 05/20/19 15:00 98 34 H 176/107 98 05/20/19 14:30 42 H 169/145 97 05/20/19 14:00 94 38 H 186/112 98 05/20/19 13:45 98 20 211/115 05/20/19 13:30 98 20 211/115 05/20/19 13:00 97 20 173/123 05/20/19 12:30 86 21 189/115 05/20/19 12:00 18 199/107 05/20/19 11:30 20 196/118 05/20/19 11:00 22 193/114 05/20/19 10:30 81 20 194/123 05/20/19 10:00 98 24 204/127 05/20/19 09:56 78 21 190/120 99 05/20/19 09:30 21 190/120 99 05/20/19 09:00 20 190/110 98 05/20/19 08:30 71 15 166/121 100 05/20/19 08:00 91 20 136/107 99 05/20/19 07:31 84 22 98 05/20/19 07:27 16 05/20/19 07:00 97.4 F L 102 H 18 166/94 99 Intake and Output 05/20/19 05/20/19 05/20/19 06:59 14:59 22:59 Other: Weight 78.018 kg PHYSICAL EXAMINATION: Patient is lying in the bed comfortably, no acute distress, awake alert and oriented.. HEENT: Normocephalic. Neck is supple. Pupils reactive. Nostrils clear. Oral cavity is moist. Ears reveal no drainage. Neck reveals no JVD, carotid bruits, or thyromegaly. CHEST EXAMINATION: Trachea is central. Symmetrical expansion. Lung mina clear to auscultation and percussion. CARDIAC: Normal S1, S2 with no gallops. No murmurs ABDOMEN: Soft. Bowel sounds normal. No organomegaly. No abdominal bruits. Extremities: reveal no edema. No clubbing or cyanosis Neurologically awake, alert, oriented x3 with well-coordinated movements. No focal deficits noted Skin: No rash or skin lesions. Psychiatric: Coperative. Nonsuicidal Musculoskeletal: No joint swelling or deformity. Normal range of motion. Results CBC & Chem 7: 05/20/19 08:33 05/20/19 08:33 Labs: Abnormal Lab Results - Last 24 Hours (Table) 05/20/19 05/20/19 Range/Units 08:33 08:33 Hgb 12.8 L (13.0-17.5) gm/dL Plt Count 481 H (150-450) k/uL Creatinine 0.65 L (0.66-1.25) mg/dL Glucose 116 H (74-99) mg/dL ALT 18 L (21-72) U/L Thrombosis Risk Factor Assmnt - DVT/VTE Prophylaxis DVT/VTE Prophylaxis: Pharmacologic Prophylaxis ordered Assessment and Plan Assessment: Possible unstable angina History of coronary disease and multiple stent placement Narcotic pain medication seeking behavior. History of smoking Hypertension Hyperlipidemia Osteoarthritis Hypothyroidism COPD. History of DVT not on any chronic anticoagulation now. Chronic low back pain History of peptic ulcer disease Plan: Patient will be continued on telemetry monitoring. Initial EKG and troponin 1 negative. Continue with pain management with morphine. Started on heparin drip. Cardiology was consulted for possible cardiac catheter placed while in the hospital. Started back on home medications including aspirin statins and beta blockers. Further recommendations based on the clinical course. Patient was counseled extensively. Time with Patient: Greater than 30
[2019-05-21] MEDS: ACETAMINOPHEN TAB 325 MG TAB PO PRN ×2 (01:24→18:57)
[2019-05-21] MEDS: MORPHINE SULFATE 4 MG/ML SYRINGE IV PRN ×5 (03:39→20:08)
[2019-05-21] MEDS: CARVEDILOL 12.5 MG TAB PO SCH ×2 (06:25→17:08)
[2019-05-21] MEDS: ASPIRIN 81 MG PO SCH (08:17)
[2019-05-21] MEDS: LISINOPRIL 20 MG TAB PO SCH (08:17)
[2019-05-21] MEDS: FAMOTIDINE 20 MG TAB PO SCH (08:17)
[2019-05-21] MEDS: EZETIMIBE 10 MG TAB PO SCH (08:17)
[2019-05-21] MEDS: cloNIDine HCL 0.1 MG TAB PO SCH ×2 (08:17→20:08)
[2019-05-21] MEDS: FLUTICASONE 50MCG/SPRAY NASAL 16GM EA NOSTRIL SCH ×2 (08:25→20:07)
[2019-05-21] MEDS ORDERED: NITROGLYCERIN SL TABS 0.4 MG TAB SUBLINGUAL PRN (09:18)
[2019-05-21] MEDS ORDERED: ATORVASTATIN 80 MG TAB PO STA (09:18)
[2019-05-21] MEDS ORDERED: SODIUM CHLORIDE 0.9% 1,000 ML in EMPTY BAG 1 BAG IV ONE (09:18)
[2019-05-21] MEDS ORDERED: ALPRAZolam 0.25 MG TAB PO PRN (09:18)
[2019-05-21] MEDS ORDERED: ASPIRIN 325 MG TAB PO STA (09:18)
[2019-05-21 09:38] LABS: African American GFR (CKD) >90 (>60 ml/min/1.73 sqM); Anion Gap 8 mmol/L; Blood Urea Nitrogen 9 mg/dL (9-20); Calcium 9.4 mg/dL (8.4-10.2); Carbon Dioxide 22 mmol/L (22-30); Chloride 110 mmol/L (98-107); Glucose 119 mg/dL (74-99); Potassium 4.2 mmol/L (3.5-5.1); Sodium 140 mmol/L (137-145)
[2019-05-21 10:09] LABS: Basophils % (A) 1 %; Eosinophils # (A) 0.1 k/uL (0-0.7); Eosinophils % (A) 2 %; HGB 13.7 gm/dL (13.0-17.5); Lymphocytes # (A) 1.3 k/uL (1.0-4.8); Lymphocytes % (A) 27 %; MCH 29.2 pg (25.0-35.0); MCHC 32.8 g/dL (31.0-37.0); MCV 89.2 fL (80.0-100.0); Mean Platelet Volume 6.9; Monocytes # (A) 0.4 k/uL (0-1.0); Monocytes % (A) 7 %; Neutrophils % (A) 60 %; Platelet Count 436 k/uL (150-450); RDW 15.6 % (11.5-15.5); WBC 4.9 k/uL (3.8-10.6)
[2019-05-21] MEDS: SODIUM CHLORIDE 0.9% 1,000 ML IV SCH (10:33)
--- NOTE | 2019-05-21 11:50 | PN ---
PROGRESS NOTE Mr. Johnson was admitted yesterday with chest. His troponins are normal. This gentleman has CAD with previous stenting of LAD and diagonal, last one performed in September 2017. He was in the hospital on April 29, but signed out against medical advice. He comes in again with chest pain. Troponins are normal. EKG is unremarkable. He is resting comfortably. He is a difficult IV stick. He has an external jugular IV access. Vital signs stable. S1-S2 heard normally. Lungs are clear. Abdomen and lower extremity exam unchanged. I am recommending coronary angiography because of recurrent chest pain. He saw a fleet administrative assistant in the [facility] area, but has stopped seeing him. I am advising coronary angiography. The rationale, risks, benefits, and options explained. Patient understands all details and wishes to proceed with the procedure which will be performed later on today. [id number] / IJN: [id number] /
--- NOTE | 2019-05-21 13:46 | P.CRDCN ---
History of Present Illness Consult date: 05/21/19 Reason for Consult (text): Chest pain Chief complaint: Chest pain History of present illness: HISTORY OF PRESENT ILLNESS AND PLAN: This is a [63]-year-old [male] with history of CAD status post multivessel PCI, DVT, COPD, hypertension, hyperlipidemia, osteoarthritis, hiatal hernia, migraines, hypothyroid. Patient had stenting to LAD and diagonal branch of LAD in [address] BASILIA Go. Patient states he also had stenting to RCA by Dr. Nathan Bear. Patient presents in the emergency department with complaints of [left-sided chest pain that started at 0400 hours this morning, pain woke him from his sleep. Reports pain travels from the jaw down to his left arm and involves some nausea. Pain level is 8 out of 10. Patient had recent admission for chest pain on 04/29/2019 was advised cardiac cath and left AMA. Most recent echo shows EF 60-65%. Patient continues to take all medications ordered by cardiology. No diabetes. No current smoking, no street drugs, no EtOH]. SIGNIFICANT PAST MEDICAL HISTORY: [CAD status post multivessel PCI, DVT, COPD, hypertension, hyperlipidemia, osteoarthritis, hiatal hernia, migraines, hypothyroid. Patient had stenting to LAD and diagonal branch of LAD in [address] BASILIA Go. Patient states he also had stenting to RCA by Dr. Nathan Bear.] PAST SURGICAL HISTORY: See list. EKG shows [SR], heart rate [77] bpm. Troponins negative x [2]. SIGNIFICANT LABORATORY VALUES: [CBC WNL. BMP WNL. troponins negative 2 ]. Chest x-ray [Negative for acute. Emphysema changes]. Most recent echo dated = [02/08/2019] indicates [EF 60-65%, borderline LVH]. Most recent cardiac cath dated = [Stenting of complex LAD in 2017. Diagonal bifurcation lesion in October 2016.] REVIEW OF SYSTEMS: CONSTITUTIONAL: [Denies fever. Denies chills.] EYES: Denies blurred vision. [Denies blurred vision or vision changes. Denies eye pain.] EARS, NOSE, MOUTH & THROAT: [Denies headache. Denies sore throat. Denies ear pain Denies hemoptysis.] CARDIOVASCULAR: [Complains of chest pain. Denies shortness of breath. Denies orthopnea. Denies PND. Denies palpitations.] RESPIRATORY: [Denies cough. Denies shortness of breath. ] GASTROINTESTINAL: [Denies abdominal pain or distention. Denies diarrhea. Denies constipation. Denies nausea. c/o vomiting.] MUSCULOSKELETAL: [c/o myalgias. Complains of left arm pain and left jaw pain] INTEGUMENTARY: [Denies pruitis. Denies rash.] ENDOCRINE: [Denies fatigue. Denies weight change. Denies polydipsia. Denies polyurina Denies heat/cold intolerance.] GENITOURINARY:[ Denies burning, hematuria or urgency with micturation.] HEMATOLOGIC: [Denies history of anemia. Denies bleeding.] NEUROLOGIC: [Denies numbness. Denies tingling. Denies weakness.] PSYCHIATRIC: [Denies anxiety. Denies depression.] PHYSICAL EXAM: VITAL SIGNS: GENERAL: Well developed, in no acute distress. HEENT: Head is atraumatic, normocephalic. Pupils are equal, round. Extra ocular movements intact. Mucous membranes moist. Neck supple. No JVD. No carotid bruit. No thyromegaly. LUNGS: Clear to auscultation no wheezes, rales or rhonchi. No chest wall ten derness on palpation or with deep breathing. HEART: Regular rate and rhythm, no rubs or gallops. S1 and S2 heard. No murmur. ABDOMEN: Abdominal exam, WNL. Bowel sounds x4 quads. Soft, non-tender, without masses, organomegaly, or abdominal aorta enlargement. EXTREMITIES/VASCULAR: Extremities have easily palpable radial, femoral, dorsalis pedis and posterior tibial pulses. No cyanosis, calf tenderness. No BLE edema. NEUROLOGIC: Patient is awake, alert and oriented x3. No focal neurologic abnor malities. FINAL IMPRESSION: 1. [chest pain]. 2. [CAD status post multivessel PCI]. 3. [hypertension]. 4. [hyperlipidemia]. 5. [DVT]. PLAN: [Patient to cardiac cath. Continue heparin IV. was called, patient and agree to proceed with procedure. Risks options benefit were explained to patient and . Cautious blood pressure control and IV hydration. Will follow.] Nurse Practitioner note has been reviewed by the Physician. Signing provider agrees with the documented findings, assessment and plan of care. Past Medical History Past Medical History: Coronary Artery Disease (CAD), Chest Pain / Angina, COPD, Deep Vein Thrombosis (DVT), GERD/Reflux, Hyperlipidemia, Hypertension, Osteoarthritis (OA), Thyroid Disorder Additional Past Medical History / Comment(s): Occasional palpitations, gastritis, small hiatal hernia, diverticular dx, pt states years ago he had PUD, chronic low back pain, chronic pain syndrome, migraines, DVT L arm, numbness/tingling bilateral lower legs, bilateral past R hand fracture, a rthritis multiple joints, hyperthyroid, sinus problems. History of Any Multi-Drug Resistant Organisms: None Reported Past Surgical History: Back Surgery, Cholecystectomy, Heart Catheterization With Stent, Orthopedic Surgery Additional Past Surgical History / Comment(s): EGDs/colonoscopies, multiple low back surgeries, bilateral arm and bilateral thigh surgeries for brown recluse spider bites with infection, morphine pain pump insertion and removal due to infection, PCI with stents, L rotator cuff repair, L knee arthroscopy, cervical fusion/cage, R cataract removal. Past Anesthesia/Blood Transfusion Reactions: No Reported Reaction Additional Past Anesthesia/Blood Transfusion Reaction / Comment(s): Pt states after cervical fusion he "" in the recovery room but does not know cause- he was"gone for 8 minutes" and states he was resusitated. Pt received blood after back surgery and tolerated it well. Date of Last Stent Placement:: 10/12/17 Past Psychological History: No Psychological Hx Reported Smoking Status: Former smoker Past Alcohol Use History: None Reported Past Drug Use History: None Reported - Past Family History Father Family Medical History: No Reported History Additional Family Medical History / Comment(s): Father had back problems. He l ived to be 82 yrs old. Mother Family Medical History: Hypertension, Myocardial Infarction (ID) Additional Family Medical History / Comment(s): Mother of a ID at the age of 55yrs. Brother(s) Family Medical History: Cancer, COPD Additional Family Medical History / Comment(s): Leukemia Medications and Allergies Home Medications Medication Instructions Recorded Confirmed Type Aspirin 81 mg PO DAILY 01/21/17 05/20/19 History Fluticasone Nasal [place] [Flonase 1 spray EA NOSTRIL BID 04/20/17 05/20/19 History Nasal [place]] Morphine Sulfate ER [Ms Contin] 30 mg PO TID 10/10/17 05/20/19 History Atorvastatin [Lipitor] 80 mg PO HS #30 tab 10/12/17 05/20/19 Rx Prasugrel [Effient] 10 mg PO DAILY #30 tab 10/12/17 05/20/19 Rx tiZANidine [Zanaflex] 4 mg PO TID 02/26/18 05/20/19 History oxyCODONE HCL [oxyCODONE HCL (IR)] 15 mg PO TID PRN 08/01/18 05/20/19 History Famotidine [Pepcid] 20 mg PO DAILY #30 tablet 12/02/18 05/20/19 Rx Carvedilol [Coreg*] 12.5 mg PO BID-W/MEALS #60 tab 02/08/19 05/20/19 Rx Ezetimibe [Zetia] 10 mg PO DAILY #30 tab 02/08/19 05/20/19 Rx Lisinopril [Zestril] 40 mg PO DAILY #60 tab 02/08/19 05/20/19 Rx cloNIDine HCL [Catapres] 0.1 mg PO BID #60 tab 02/08/19 05/20/19 Rx Ondansetron Odt [Zofran Odt] 4 mg PO Q8HR PRN #10 tab 04/23/19 05/20/19 Rx Allergies Allergy/AdvReac Type Severity Reaction Status Date / Time ibuprofen [From Motrin] Allergy Rash/Hives Verified 05/20/19 09:53 ketorolac tromethamine Allergy Rash/Hives Verified 05/20/19 09:53 [From Toradol] Physical Exam Vitals: Vital Signs Temp Pulse Pulse Resp BP BP Pulse Ox 05/21/19 12:00 98.1 F 64 16 163/106 98 05/21/19 08:00 98 F 72 18 195/105 99 05/21/19 04:00 98.2 F 93 18 133/96 94 L 05/21/19 00:00 92 16 160/98 97 05/20/19 20:00 98.4 F 79 18 141/83 99 05/20/19 17:00 84 18 05/20/19 16:50 98.3 F 74 18 182/85 99 05/20/19 16:11 98.3 F 16 05/20/19 16:04 97.4 F L 90 31 H 181/121 98 05/20/19 15:30 90 31 H 181/121 98 05/20/19 15:00 98 34 H 176/107 98 05/20/19 14:30 42 H 169/145 97 05/20/19 14:00 94 38 H 186/112 98 05/20/19 13:45 98 20 211/115 05/20/19 13:30 98 20 211/115 Intake and Output 05/20/19 05/21/19 05/21/19 22:59 06:59 14:59 Intake Total 309.045 52.679 Output Total 200 100 Balance 109.045 -47.321 Intake: IV 240 .9@ 20 240 Intake, IV Titration 69.045 52.679 Amount Heparin Sod,Pork in 0.45% 69.045 52.679 NaCl 25,000 unit In 0.45 % NaCl 1 250ml.bag @ 12 UNITS/KG/HR 9.362 mls/hr IV .Q24H [facility] Rx#: [id number] Output: Urine 200 100 Other: Voiding Method Toilet Toilet Urinal Urinal Weight 72.8 kg Results 05/21/19 09:02 05/21/19 09:02 Cardiac Enzymes 05/20/19 05/20/19 Range/Units 15:36 20:01 Troponin I <0.012 <0.012 (0.000-0.034) ng/mL Coagulation 05/20/19 05/21/19 Range/Units 17:22 01:11 APTT 90.2 H 29.0 (22.0-30.0) sec CBC 05/21/19 Range/Units 09:02 WBC 4.9 (3.8-10.6) k/uL RBC 4.70 (4.30-5.90) m/uL Hgb 13.7 (13.0-17.5) gm/dL Hct 42.0 (39.0-53.0) % Plt Count 436 (150-450) k/uL Comprehensive Metabolic Panel 05/21/19 Range/Units 09:02 Sodium 140 (137-145) mmol/L Potassium 4.2 (3.5-5.1) mmol/L Chloride 110 H (98-107) mmol/L Carbon Dioxide 22 (22-30) mmol/L BUN 9 (9-20) mg/dL Creatinine 0.55 L (0.66-1.25) mg/dL Glucose 119 H (74-99) mg/dL Calcium 9.4 (8.4-10.2) mg/dL Current Medications Generic Name Dose Route Start Last Admin Trade Name Freq PRN Reason Stop Dose Admin Acetaminophen 650 mg 05/20/19 10:03 05/21/19 01:24 Tylenol Tab PO 650 mg Q6HR PRN Administration Mild Pain or Fever > 100.5 Alprazolam 0.25 mg 05/21/19 09:18 Xanax PO Q6HR PRN Mild Anxiety Alprazolam 0.5 mg 05/21/19 09:18 Xanax PO Q6HR PRN Moderate Anxiety Aspirin 81 mg 05/21/19 09:00 05/21/19 08:17 Aspirin PO 81 mg DAILY YESICA Administration Atorvastatin Calcium 80 mg 05/20/19 21:00 05/20/19 20:59 Lipitor PO 80 mg HS YESICA Administration Carvedilol 12.5 mg 05/20/19 20:00 05/21/19 06:25 Coreg PO 12.5 mg BID-W/MEALS YESICA Administration Clonidine 0.1 mg 05/20/19 21:00 05/21/19 08:17 Catapres PO 0.1 mg BID YESICA Administration Ezetimibe 10 mg 05/21/19 09:00 05/21/19 08:17 Zetia PO 10 mg DAILY YESICA Administration Famotidine 20 mg 05/21/19 09:00 05/21/19 08:17 Pepcid PO 20 mg DAILY YES[facility] Administration Fluticasone Propionate 1 spray 05/20/19 21:00 05/21/19 08:25 Flonase Nasal [place] EA NOSTRIL Not Given BID [facility] Heparin Sodium (Porcine) 0 unit 05/20/19 10:05 Heparin IV PER PROTOCOL PRN Low PTT Protocol Sodium Chloride 1,000 ml/ IV 1,000 mls @ 72.8 mls/hr 05/21/19 09:18 05/21/19 10:33 Solution IV 05/21/19 23:02 Not Given .[id number] ONE 1 ML/KG/HR Sodium Chloride 1,000 mls @ 79 mls/hr 05/21/19 09:30 05/21/19 10:33 Saline 0.9% IV Not Given .[id number] [facility] Lisinopril 40 mg 05/21/19 09:00 05/21/19 08:17 Zestril PO 40 mg DAILY YESICA Administration Morphine Sulfate 4 mg 05/20/19 10:03 05/21/19 12:39 Morphine Sulfate (Inj) IV 4 mg Q4HR PRN Administration Severe Pain Naloxone HCl 0.2 mg 05/20/19 10:03 Narcan IV Q2M PRN Opioid Reversal Nitroglycerin 0.4 mg 05/20/19 09:51 05/20/19 10:19 Nitrostat SUBLINGUAL 0.4 mg Q5M PRN Administration Chest Pain Ondansetron HCl 4 mg 05/20/19 10:03 Zofran IVP Q8HR PRN Nausea And Vomiting Intake and Output 05/20/19 05/21/19 05/21/19 22:59 06:59 14:59 Intake Total 309.045 52.679 Output Total 200 100 Balance 109.045 -47.321 Intake: IV 240 .9@ 20 240 Intake, IV Titration 69.045 52.679 Amount Heparin Sod,Pork in 0.45% 69.045 52.679 NaCl 25,000 unit In 0.45 % NaCl 1 250ml.bag @ 12 UNITS/KG/HR 9.362 mls/hr IV .Q24H [facility] Rx#: [id number] Output: Urine 200 100 Other: Voiding Method Toilet Toilet Urinal Urinal Weight 72.8 kg 05/21/19 09:02 05/21/19 09:02 - EKG Interpretation EKG: sinus rhythm
[2019-05-21] MEDS ORDERED: HEPARIN SODIUM,PORCINE 5,000 UNIT/ML 1 ML VIAL IV PRN (14:26)
[2019-05-21] MEDS ORDERED: HEPARIN SOD,PORK IN 0.45% NACL 25,000 UNIT in 0.45% NACL 1 250ML.BAG IV SCH (14:30)
[2019-05-21 14:47] LABS: Basophils % (A) 1 %; Eosinophils # (A) 0.1 k/uL (0-0.7); Eosinophils % (A) 2 %; HCT 41.6 % (39.0-53.0); HGB 13.7 gm/dL (13.0-17.5); Lymphocytes % (A) 22 %; MCH 29.3 pg (25.0-35.0); MCHC 32.9 g/dL (31.0-37.0); MCV 89.1 fL (80.0-100.0); Mean Platelet Volume 6.9; Monocytes # (A) 0.2 k/uL (0-1.0); Monocytes % (A) 5 %; Neutrophils # (A) 3.1 k/uL (1.3-7.7); Neutrophils % (A) 70 %; Platelet Count 436 k/uL (150-450); RBC 4.67 m/uL (4.30-5.90); RDW 15.1 % (11.5-15.5); WBC 4.4 k/uL (3.8-10.6)
[2019-05-21 14:57] LABS: Poikilocytosis (M) Present
[2019-05-21] MEDS: ATORVASTATIN 80 MG TAB PO SCH (20:07)
[2019-05-22] MEDS: SODIUM CHLORIDE 0.9% 1,000 ML IV SCH ×2 (00:09→15:49)
[2019-05-22] MEDS: ALPRAZolam 0.5 MG TAB PO PRN ×2 (00:10→22:17)
[2019-05-22] MEDS: MORPHINE SULFATE 4 MG/ML SYRINGE IV PRN ×5 (00:11→19:54)
[2019-05-22] MEDS: ACETAMINOPHEN TAB 325 MG TAB PO PRN ×2 (04:07→19:53)
[2019-05-22] MEDS: CARVEDILOL 12.5 MG TAB PO SCH ×2 (05:06→16:20)
[2019-05-22 05:51] LABS: Basophils % (A) 0 %; Eosinophils # (A) 0.1 k/uL (0-0.7); Eosinophils % (A) 2 %; HGB 12.3 gm/dL (13.0-17.5); Lymphocytes # (A) 1.1 k/uL (1.0-4.8); Lymphocytes % (A) 34 %; MCH 27.8 pg (25.0-35.0); MCHC 30.7 g/dL (31.0-37.0); MCV 90.6 fL (80.0-100.0); Monocytes # (A) 0.2 k/uL (0-1.0); Monocytes % (A) 7 %; Neutrophils # (A) 1.8 k/uL (1.3-7.7); Neutrophils % (A) 55 %; Platelet Count 370 k/uL (150-450); RBC 4.42 m/uL (4.30-5.90); RDW 14.7 % (11.5-15.5); WBC 3.2 k/uL (3.8-10.6)
[2019-05-22] MEDS: LISINOPRIL 20 MG TAB PO SCH (06:39)
[2019-05-22] MEDS: ASPIRIN 81 MG PO SCH (06:40)
[2019-05-22] MEDS: FLUTICASONE 50MCG/SPRAY NASAL 16GM EA NOSTRIL SCH ×2 (06:40→22:15)
[2019-05-22] MEDS: FAMOTIDINE 20 MG TAB PO SCH (06:41)
[2019-05-22] MEDS: EZETIMIBE 10 MG TAB PO SCH (06:41)
[2019-05-22] MEDS: cloNIDine HCL 0.1 MG TAB PO SCH ×2 (06:41→19:54)
[2019-05-22] MEDS ORDERED: amLODIPine 5 MG TAB PO STA (09:34)
[2019-05-22] MEDS ORDERED: MIDAZOLAM (PF) 2 MG/2 ML VIAL IVP ONE (13:40)
[2019-05-22] MEDS ORDERED: LIDOCAINE 1% INJ 10MG/ML (20 ML MDV) SQ ONE (13:41)
[2019-05-22] MEDS ORDERED: IV FLUID CONTINUATION 500 ML IV ONE (13:43)
[2019-05-22] MEDS ORDERED: HYDROmorphone 0.5 MG/0.5 ML SYRINGE IVP STA (14:09)
[2019-05-22] MEDS ORDERED: SODIUM CHLORIDE 0.9% 1,000 ML IV SCH (14:11)
--- NOTE | 2019-05-22 14:48 | CC ---
CARDIAC CATHETERIZATION REPORT DATE OF SERVICE: 05/22/2019 PROCEDURE: Left heart catheterization and coronary angiography. PERFORMED BY: Dr. Valerie Go. SEDATION: Moderate conscious sedation time was 15 minutes. Patient was administered Versed. His oxygen saturation, hemodynamics and EKG were monitored closely. CLINICAL INFORMATION: Mr. 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 He also has CAD, underwent stenting of LAD and diagonal bifurcation lesion on multiple occasions. The last stent was performed by me in September 2017. At that time, I stented the ostium of the diagonal and also dilated the LAD within the stented segment. He presented to the hospital with chest pain about 10 days ago and had symptoms of unstable angina, was advised cardiac cath, but signed out AGAINST MEDICAL ADVICE. He comes back again with chest pain, recurrent, responsive sometimes to nitroglycerin. Troponins were negative. Because of ongoing symptoms, he was advised coronary angiography. Risks, benefits, options, rationale were explained to the patient and . PROCEDURE NOTE: Under local anesthesia and strict aseptic precautions, a 6-Urdu introducer placed in the right femoral artery. Using standard Angie catheters, I performed coronary angiography and a pigtail catheter was used to check LV pressures. LV gram was not performed. By echocardiogram, LV function was excellent. The patient tolerated procedure well without complication. Following the procedure, Angio-Seal device was used to secure hemostasis and he was sent to the room in stable condition. LV pressures were checked but LV gram was not performed. CARDIAC CATHETERIZATION FINDINGS: The left ventricle end-diastolic pressure was about 14-15 mmHg without any gradient across aortic valve. CORONARY ANGIOGRAPHY FINDINGS: RIGHT CORONARY ARTERY: Technically a nondominant, good caliber, good distribution vessel quite tortuous in the proximal portion. Distally gives off a small PDA before it crosses the crux. No significant disease, but distal branches of RCA are somewhat small. LEFT MAIN CORONARY ARTERY: Short patent disease-free vessel that bifurcates into LAD and circumflex. LEFT ANTERIOR DESCENDING CORONARY ARTERY: This vessel is widely patent at its origin. In the midportion at the site of the stenting the vessel is widely patent. The diagonal branch that comes off from the LAD is also widely patent with residual stenosis of no more than 40%. Both the stents are widely patent and demonstrate good flow. The LAD is a large caliber, large distribution vessel that curves over the apex to supply the inferoapical portion of left ventricle. The diagonal branch has minor irregularities. No significant disease. The ostium of the diagonal, which was stented, has about a 40% narrowing. LEFT POSTERIOR CIRCUMFLEX CORONARY ARTERY: Technically this is a dominant vessel that has no significant disease in the proximal portion, gives off 2 obtuse marginals then the distal posterolateral branch, supplies a sizable amount of myocardium, has minor irregularities. No significant disease. LEFT VENTRICULOGRAM: This was not performed. FINAL IMPRESSION: This patient has a widely patent LAD at the site of stenting and no more than 30% to 40% narrowing within the diagonal, which was a bifurcation lesion. He has a left dominant system. No significant disease in the RCA or circumflex both of which have minor irregularities. Filling pressures are normal and no gradient across aortic valve. RECOMMENDATIONS: Findings were discussed with the patient. I explained to him no intervention is necessary. We will continue current medications and risk-factor modifications and he will be discharged in the next 24-48 hours if he remains stable. MMODL / IJN: [id number] /
[2019-05-22] MEDS ORDERED: HYDROmorphone 0.5 MG/0.5 ML SYRINGE IVP PRN (15:55)
[2019-05-22] MEDS: ATORVASTATIN 80 MG TAB PO SCH (19:54)
[2019-05-22] MEDS: MORPHINE SULFATE ER 30 MG TABLET PO SCH (22:15)
[2019-05-23] MEDS: MORPHINE SULFATE 4 MG/ML SYRINGE IV PRN ×4 (00:07→13:16)
[2019-05-23] MEDS: tiZANidine 4 MG TAB PO SCH ×4 (00:07→21:27)
--- NOTE | 2019-05-23 01:14 | P.PN ---
Subjective Progress Note Date: 05/22/19 Principal diagnosis: Chest pain possible unstable angina Patient is a 63-year-old male with a known history of coronary artery disease with history of multiple stent placement, history of DVT, COPD, hypertension, hyperlipidemia and osteoarthritis and narcotic pain medication use came to ER with complaints of chest pain radiating to the left jaw and tingling sensation of the left fingers is with shortness of breath. Patient says that he also felt nauseated and diaphoretic. Patient had chest pain which began approximately 4 hours prior to arrival. Patient says that he woke up from pain this morning. Denied any complains of cough or sputum production. No leg swelling. No headache or dizziness or lightheadedness. Patient says that patient is continues to have chest pain 7/10 in severity. No fever no chills. Patient was recently admitted to the hospital and cardiology recommended cardiac catheterization but patient refused and left AMA. Patient came back to the hospital with similar complaints. EKG showed normal sinus rhythm. Chest x-ray showed mild hyperinflation may reflect underlying emphysema. No acute process otherwise seen. 05/21/2019 Patient denied any complaints of chest pain now. Continued on pain management with morphine. Troponin 3 negative. Cardiology is planning for catheterization likely tomorrow. No fever no chills. No other acute overnight issues. 05/22/2019 Patient denied any new complaints today. Cardiology scheduled for cardiac cath test tomorrow. No other acute overnight issues. Currently on telemetry monitoring. No cough or sputum production. Pain control. Continued on heparin drip. Current medications reviewed Objective - Vital Signs Vital signs: Vital Signs Temp 97.9 F 05/22/19 11:58 Pulse 114 H 05/22/19 11:58 Resp 16 05/22/19 11:58 BP 176/103 05/22/19 11:58 Pulse Ox 100 05/22/19 11:58 Intake & Output 05/21/19 05/22/19 05/22/19 18:59 06:59 18:59 Intake Total 143.489 Output Total 400 Balance -400 143.489 Weight 72.8 kg 73.9 kg Intake: Intake, IV Titration 143.489 Amount Heparin Sod,Pork in 0.45% 143.489 NaCl 25,000 unit In 0.45 % NaCl 1 250ml.bag @ 12 UNITS/KG/HR 8.736 mls/hr IV .Q24H [facility] Rx#: [id number] Output: Urine 400 Other: # Voids 1 1 - Exam PHYSICAL EXAMINATION: Patient is lying in the bed comfortably, no acute distress, awake alert and oriented.. HEENT: Normocephalic. Neck is supple. Pupils reactive. Nostrils clear. Oral cavity is moist. Ears reveal no drainage. Neck reveals no JVD, carotid bruits, or thyromegaly. CHEST EXAMINATION: Trachea is central. Symmetrical expansion. Lung mina clear to auscultation and percussion. CARDIAC: Normal S1, S2 with no gallops. No murmurs ABDOMEN: Soft. Bowel sounds normal. No organomegaly. No abdominal bruits. Extremities: reveal no edema. No clubbing or cyanosis Neurologically awake, alert, oriented x3 with well-coordinated movements. No focal deficits noted Skin: No rash or skin lesions. Psychiatric: Coperative. Nonsuicidal Musculoskeletal: No joint swelling or deformity. Normal range of motion. - Labs CBC & Chem 7: 05/22/19 05:25 05/21/19 09:02 Labs: Abnormal Lab Results - Last 24 Hours (Table) 05/21/19 05/22/19 05/22/19 Range/Units 20:55 05:25 05:25 WBC 3.2 L (3.8-10.6) k/uL Hgb 12.3 L (13.0-17.5) gm/dL MCHC 30.7 L (31.0-37.0) g/dL APTT 34.3 H 55.9 H (22.0-30.0) sec Assessment and Plan Assessment: Possible unstable angina History of coronary disease and multiple stent placement Narcotic pain medication seeking behavior. History of smoking Hypertension Hyperlipidemia Osteoarthritis Hypothyroidism COPD. History of DVT not on any chronic anticoagulation now. Chronic low back pain History of peptic ulcer disease Plan: Patient will be continued on telemetry monitoring. Initial EKG and troponin 3 negative. Continue with pain management with morphine. Started on heparin drip. Cardiology was consulted for possible cardiac catheter placed while in the hospital. Started back on home medications including aspirin statins and beta blockers. Further recommendations based on the clinical course. Patient was counseled extensively.
--- NOTE | 2019-05-23 01:14 | P.PN ---
Subjective Progress Note Date: 05/21/19 Principal diagnosis: Chest pain possible unstable angina Patient is a 63-year-old male with a known history of coronary artery disease with history of multiple stent placement, history of DVT, COPD, hypertension, hyperlipidemia and osteoarthritis and narcotic pain medication use came to ER with complaints of chest pain radiating to the left jaw and tingling sensation of the left fingers is with shortness of breath. Patient says that he also felt nauseated and diaphoretic. Patient had chest pain which began approximately 4 hours prior to arrival. Patient says that he woke up from pain this morning. Denied any complains of cough or sputum production. No leg swelling. No headache or dizziness or lightheadedness. Patient says that patient is continues to have chest pain 7/10 in severity. No fever no chills. Patient was recently admitted to the hospital and cardiology recommended cardiac catheterization but patient refused and left AMA. Patient came back to the hospital with similar complaints. EKG showed normal sinus rhythm. Chest x-ray showed mild hyperinflation may reflect underlying emphysema. No acute process otherwise seen. 05/21/2019 Patient denied any complaints of chest pain now. Continued on pain management with morphine. Troponin 3 negative. Cardiology is planning for catheterization likely tomorrow. No fever no chills. No other acute overnight issues. Current medications reviewed Objective - Vital Signs Vital signs: Vital Signs Temp 98 F 05/21/19 15:34 Pulse 104 H 05/21/19 15:34 Resp 16 05/21/19 15:34 BP 135/98 05/21/19 15:34 Pulse Ox 96 05/21/19 15:34 Intake & Output 05/21/19 05/21/19 05/22/19 06:59 18:59 06:59 Intake Total 52.679 Output Total 100 400 Balance -47.321 -400 Weight 72.8 kg 72.8 kg Intake: Intake, IV Titration 52.679 Amount Heparin Sod,Pork in 0.45% 52.679 NaCl 25,000 unit In 0.45 % NaCl 1 250ml.bag @ 12 UNITS/KG/HR 9.362 mls/hr IV .Q24H [facility] Rx#: [id number] Output: Urine 100 400 Other: Voiding Method Toilet Urinal # Voids 1 - Exam PHYSICAL EXAMINATION: Patient is lying in the bed comfortably, no acute distress, awake alert and oriented.. HEENT: Normocephalic. Neck is supple. Pupils reactive. Nostrils clear. Oral cavity is moist. Ears reveal no drainage. Neck reveals no JVD, carotid bruits, or thyromegaly. CHEST EXAMINATION: Trachea is central. Symmetrical expansion. Lung mina clear to auscultation and percussion. CARDIAC: Normal S1, S2 with no gallops. No murmurs ABDOMEN: Soft. Bowel sounds normal. No organomegaly. No abdominal bruits. Extremities: reveal no edema. No clubbing or cyanosis Neurologically awake, alert, oriented x3 with well-coordinated movements. No focal deficits noted Skin: No rash or skin lesions. Psychiatric: Coperative. Nonsuicidal Musculoskeletal: No joint swelling or deformity. Normal range of motion. - Labs CBC & Chem 7: 05/22/19 05:25 05/21/19 09:02 Labs: Abnormal Lab Results - Last 24 Hours (Table) 05/21/19 05/21/19 05/21/19 Range/Units 09:02 09:02 20:55 RDW 15.6 H (11.5-15.5) % APTT 34.3 H (22.0-30.0) sec Chloride 110 H (98-107) mmol/L Creatinine 0.55 L (0.66-1.25) mg/dL Glucose 119 H (74-99) mg/dL Assessment and Plan Assessment: Possible unstable angina History of coronary disease and multiple stent placement Narcotic pain medication seeking behavior. History of smoking Hypertension Hyperlipidemia Osteoarthritis Hypothyroidism COPD. History of DVT not on any chronic anticoagulation now. Chronic low back pain History of peptic ulcer disease Plan: Patient will be continued on telemetry monitoring. Initial EKG and troponin 3 negative. Continue with pain management with morphine. Started on heparin drip. Cardiology was consulted for possible cardiac catheter placed while in the hospital. Started back on home medications including aspirin statins and beta blockers. Further recommendations based on the clinical course. Patient was counseled extensively. Time with Patient: Greater than 30
[2019-05-23] MEDS: CARVEDILOL 12.5 MG TAB PO SCH ×2 (06:45→16:30)
[2019-05-23] MEDS: MORPHINE SULFATE ER 30 MG TABLET PO SCH ×4 (08:09→21:26)
[2019-05-23] MEDS: cloNIDine HCL 0.1 MG TAB PO SCH (08:09)
[2019-05-23] MEDS: LISINOPRIL 20 MG TAB PO SCH (08:09)
[2019-05-23] MEDS: FAMOTIDINE 20 MG TAB PO SCH (08:09)
[2019-05-23] MEDS: EZETIMIBE 10 MG TAB PO SCH (08:10)
[2019-05-23] MEDS: ASPIRIN 81 MG PO SCH (08:10)
[2019-05-23] MEDS: FLUTICASONE 50MCG/SPRAY NASAL 16GM EA NOSTRIL SCH ×2 (08:11→20:23)
[2019-05-23] MEDS ORDERED: PRASUGREL 10 MG TAB PO SCH (09:00)
[2019-05-23 09:49] LABS: Basophils % (A) 0 %; Eosinophils # (A) 0.1 k/uL (0-0.7); Eosinophils % (A) 1 %; HCT 38.9 % (39.0-53.0); HGB 12.3 gm/dL (13.0-17.5); Lymphocytes # (A) 0.9 k/uL (1.0-4.8); Lymphocytes % (A) 22 %; MCH 28.5 pg (25.0-35.0); MCHC 31.7 g/dL (31.0-37.0); MCV 90.1 fL (80.0-100.0); Mean Platelet Volume 6.2; Monocytes # (A) 0.2 k/uL (0-1.0); Monocytes % (A) 6 %; Neutrophils # (A) 2.7 k/uL (1.3-7.7); Neutrophils % (A) 69 %; Platelet Count 365 k/uL (150-450); RBC 4.31 m/uL (4.30-5.90); RDW 14.8 % (11.5-15.5); WBC 3.9 k/uL (3.8-10.6)
[2019-05-23 11:47] VITALS: BMI 23.0
--- NOTE | 2019-05-23 12:10 | P.PN ---
Subjective Patient admitted for unstable angina had cath done yesterday which was clean. Patient this morning is complaining of pain in the right groin. His blood pressures are high. Objective - Vital Signs Vital signs: Vital Signs Temp 98.6 F 05/23/19 08:00 Pulse 92 05/23/19 08:00 Resp 17 05/23/19 08:00 BP 183/99 05/23/19 08:00 Pulse Ox 99 05/23/19 08:00 Intake & Output 05/22/19 05/23/19 05/23/19 18:59 06:59 18:59 Intake Total 600 Output Total 900 Balance -900 600 Weight 74.9 kg 74.9 kg Intake: Oral 600 Output: Urine 900 Other: Voiding Method Toilet Urinal # Voids 1 1 3 - Exam On exam, alert and oriented x3. HEENT: Conjunctivae normal. eyes normal. NECK: No JVD. No thyroid enlargement. No LNs CARDIOVASCULAR: S1 and S2 heard RESPIRATION: Breath sounds diminished in the bases. No rhonchi or crackles. No bronchial breathing. ABDOMEN: Soft, patient is complaining of pain in the right groin and the right retroperitoneal area.. No guarding. no masses palpable. No ascites, No hepatosplenomegaly.Bowel sounds heard. LEGS: No edema. no swelling NERVOUS SYSTEM: Cranial N 2-12 grossly normal. Moves all 4 limbs. No focal deficits. No sensory deficit. No signs of cerebellar dysfucntion. Skin: no ulcer no rash - Labs CBC & Chem 7: 05/23/19 09:11 05/21/19 09:02 Labs: Abnormal Lab Results - Last 24 Hours (Table) 05/23/19 Range/Units 09:11 Hgb 12.3 L (13.0-17.5) gm/dL Hct 38.9 L (39.0-53.0) % Lymphocytes # 0.9 L (1.0-4.8) k/uL Assessment and Plan Assessment: Possible unstable angina History of coronary disease and multiple stent placement Narcotic pain medication seeking behavior. History of smoking Hypertension Hyperlipidemia Osteoarthritis Hypothyroidism COPD. History of DVT not on any chronic anticoagulation now. Chronic low back pain History of peptic ulcer disease Plan - We'll discuss with cardiology if they want CT scan of the abdomen pelvis or ultrasound to rule out aneurysm versus any retroperitoneal bleed as the patient is complaining of pain in the right groin and the right flank - Patient blood pressure also high this morning. We'll continue to monitor. medication adjustment as per cardiology - We will continue rest of the medications - DVT and GI prophylaxis - We will continue to follow the patient Time with Patient: Greater than 30
[2019-05-23] MEDS ORDERED: amLODIPine 5 MG TAB PO SCH (13:00)
[2019-05-23] MEDS: HYDROcodone/APAP 10-325MG 1 EACH TAB PO PRN (16:30)
[2019-05-23] MEDS: cloNIDine HCL 0.2 MG TAB PO SCH (18:34)
[2019-05-23] MEDS: ALPRAZolam 0.5 MG TAB PO PRN (18:34)
--- NOTE | 2019-05-23 18:56 | US ---
EXAMINATION TYPE: US lower ext pseudo artery RT DATE OF EXAM: 05/23/2019 COMPARISON: NONE CLINICAL HISTORY: right groin pain, rule out pseudoaneursym. Heart catheter with right groin approach yesterday morning. Pain. EXAM PERFORMED: Grayscale and color Doppler duplex imaging performed of the groin, post cardiac dulce ter to assess for pseudoaneurysm. 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 IMPRESSION: There is complex area adjacent to the femoral artery consistent with hematoma. No evidence of a pseud oaneurysm seen.
[2019-05-23] MEDS: amLODIPine 5 MG TAB PO SCH (20:23)
[2019-05-23] MEDS: ATORVASTATIN 80 MG TAB PO SCH (20:23)
[2019-05-24] MEDS: cloNIDine HCL 0.2 MG TAB PO SCH ×2 (02:29→08:37)
[2019-05-24] MEDS: ALPRAZolam 0.5 MG TAB PO PRN (02:29)
[2019-05-24] MEDS: CARVEDILOL 12.5 MG TAB PO SCH (06:09)
[2019-05-24] MEDS: HYDROcodone/APAP 10-325MG 1 EACH TAB PO PRN ×2 (06:10→12:39)
[2019-05-24 07:47] LABS: African American GFR (CKD) >90 (>60 ml/min/1.73 sqM); Anion Gap 11 mmol/L; Blood Urea Nitrogen 8 mg/dL (9-20); Calcium 9.1 mg/dL (8.4-10.2); Carbon Dioxide 23 mmol/L (22-30); Chloride 107 mmol/L (98-107); Glucose 119 mg/dL (74-99); Potassium 3.8 mmol/L (3.5-5.1); Sodium 141 mmol/L (137-145)
--- NOTE | 2019-05-24 08:06 | PN ---
PROGRESS NOTE Mr. Johnson underwent a cardiac cath performed by me yesterday from right femoral approach. Study revealed no significant disease in the LAD or diagonal. Advised to continue medical therapy. He complains of groin pain and also has elevated blood pressure. We will hold his discharge and perform an ultrasound of the groin. I do not believe there is any pseudoaneurysm. There is no bruit. Pulses palpable. There is a small hematoma. We will do an ultrasound and optimize BP control. His blood pressure is elevated probably related to pain also. I am recommending amlodipine 5 mg b.i.d. to be continued in addition to his lisinopril 40 mg daily. I will discontinue his Effient which he has used for over a year since his stent that was performed in September 2017. We will, however, continue his aspirin. He can be discharged tomorrow if he remains stable and we optimize his BP control. I will had clonidine if necessary for his blood pressure control. Discussed my thoughts in detail with the patient. Blood pressure today is 170/90, pulse rate is about 78 per minute. He has no JVD. S1- S2 heard normally. Lungs are clear. Abdomen and lower exam unchanged. Right groin is a small hematoma. No bruit. Pulses good. We will possibly discharge him tomorrow if he remains stable. MMODL / IJN: [id number] /
[2019-05-24 08:13] LABS: Basophils % (A) 1 %; Eosinophils # (A) 0.1 k/uL (0-0.7); Eosinophils % (A) 3 %; HCT 38.9 % (39.0-53.0); HGB 12.1 gm/dL (13.0-17.5); Lymphocytes % (A) 18 %; MCH 28.3 pg (25.0-35.0); MCV 91.1 fL (80.0-100.0); Mean Platelet Volume 7.4; Monocytes # (A) 0.3 k/uL (0-1.0); Monocytes % (A) 6 %; Neutrophils % (A) 71 %; Platelet Count 334 k/uL (150-450); RBC 4.27 m/uL (4.30-5.90); RDW 15.9 % (11.5-15.5); WBC 5.6 k/uL (3.8-10.6)
[2019-05-24] MEDS: MORPHINE SULFATE ER 30 MG TABLET PO SCH (08:35)
[2019-05-24] MEDS: FAMOTIDINE 20 MG TAB PO SCH (08:37)
[2019-05-24] MEDS: LISINOPRIL 20 MG TAB PO SCH (08:37)
[2019-05-24] MEDS: tiZANidine 4 MG TAB PO SCH (08:37)
[2019-05-24] MEDS: amLODIPine 5 MG TAB PO SCH (08:37)
[2019-05-24] MEDS: ASPIRIN 81 MG PO SCH (08:37)
[2019-05-24] MEDS: EZETIMIBE 10 MG TAB PO SCH (08:37)
[2019-05-24] MEDS: FLUTICASONE 50MCG/SPRAY NASAL 16GM EA NOSTRIL SCH (08:38)
[2019-05-24 09:22] VITALS: RESP 20
[2019-05-24] MEDS ORDERED: MORPHINE SULFATE 2 MG/ML SYRINGE IVP STA (10:28)
[2019-05-24] MEDS ORDERED: MORPHINE SULFATE 2 MG/ML SYRINGE IM STA (10:33)
--- NOTE | 2019-05-24 10:56 | P.DS ---
Providers Date of admission: 05/20/19 10:03 Expected date of discharge: 05/24/19 Attending physician: Tacho Arrieta Consults: 05/20/19 10:03 Consult Physician Routine Consulting Provider: Sanju Montano Consult Reason/Comments: UA Do you want consulting provider notified?: Yes Primary care physician: Stated None Hospital Course: Possible unstable angina History of coronary disease and multiple stent placement Narcotic pain medication seeking behavior. History of smoking Hypertension Hyperlipidemia Osteoarthritis Hypothyroidism COPD. History of DVT not on any chronic anticoagulation now. Chronic low back pain History of peptic ulcer disease Hospital course Patient is a 63-year-old male with a known history of coronary artery disease with history of multiple stent placement, history of DVT, COPD, hypertension, hyperlipidemia and osteoarthritis and narcotic pain medication use came to ER with complaints of chest pain radiating to the left jaw and tingling sensation of the left fingers is with shortness of breath. Patient says that he also felt nauseated and diaphoretic. Patient had chest pain which began approximately 4 hours prior to arrival. Patient says that he woke up from pain in the morning of admission. Denied any complains of cough or sputum production. No leg swelling. No headache or dizziness or lightheadedness. Patient says that patient is continues to have chest pain 7/10 in severity. No fever no chills. Patient was recently admitted to the hospital and cardiology recommended cardiac catheterization but patient refused and left AMA. Patient came back to the hospital with similar complaints. EKG showed normal sinus rhythm. Chest x-ray showed mild hyperinflation may reflect underlying emphysema. No acute process otherwise seen. patient had a cardiac cath which did not show any occlusive disease. Patient was complaining of pain in the right groin status post cath. Ultrasound of the right groin was done which showed no evidence of pseudoaneurysm and showed small hematoma. Cardiology was consulted referring the patient and adjust his blood pressure medications. On 05/24/2019 Patient says that he's feels heaviness in his chest which is probably due to high blood pressure as told by cardiology and he complains ofSoreness in the right groin. He is already on pain medications. cardiogenic wanted his continuation of effient as his last stent was in 2017. He was continued on aspirin. He was started on amlodipine and his lisinopril was increased to 40 mg daily. On exam, alert and oriented x3. HEENT: Conjunctivae normal. eyes normal. NECK: No JVD. No thyroid enlargement. No LNs CARDIOVASCULAR: assessment positive RESPIRATION: Breath sounds diminished in the bases. No rhonchi or crackles. No bronchial breathing. ABDOMEN: Soft, nontender . No guarding. no masses palpable. No ascites, No hepatosplenomegaly.Bowel sounds heard.patient is having some pain in the right groin LEGS: No edema. no swelling NERVOUS SYSTEM: Cranial N 2-12 grossly normal. Moves all 4 limbs. No focal deficits. No sensory deficit. No signs of cerebellar dysfucntion. Skin: no ulcer no rash patient was cleared by cardiology to be discharged His blood pressure medications were adjusted He was to follow-up with cardiology at that is discussed below in the discharge summary. Patient Condition at Discharge: Stable Plan - Discharge Summary Discharge Rx Participant: Yes New Discharge Prescriptions: New amLODIPine [Norvasc] 5 mg PO BID #60 tab Lisinopril [Zestril] 40 mg PO DAILY #90 tab Continue Aspirin 81 mg PO DAILY Fluticasone Nasal [place] [Flonase Nasal [place]] 1 spray EA NOSTRIL BID Morphine Sulfate ER [Ms Contin] 30 mg PO TID Atorvastatin [Lipitor] 80 mg PO HS #30 tab tiZANidine [Zanaflex] 4 mg PO TID oxyCODONE HCL [oxyCODONE HCL (IR)] 15 mg PO TID PRN PRN Reason: Breakthrough Pain Famotidine [Pepcid] 20 mg PO DAILY #30 tablet cloNIDine HCL [Catapres] 0.1 mg PO BID #60 tab Carvedilol [Coreg*] 12.5 mg PO BID-W/MEALS #60 tab Ezetimibe [Zetia] 10 mg PO DAILY #30 tab Ondansetron Odt [Zofran ODT] 4 mg PO Q8HR PRN #10 tab PRN Reason: Nausea Discontinued Prasugrel [Effient] 10 mg PO DAILY #30 tab Lisinopril [Zestril] 40 mg PO DAILY #60 tab Discharge Medication List Aspirin 81 mg PO DAILY 01/21/17 [History] Fluticasone Nasal [place] [Flonase Nasal [place]] 1 spray EA NOSTRIL BID 04/20/17 [History] Morphine Sulfate ER [Ms Contin] 30 mg PO TID 10/10/17 [History] Atorvastatin [Lipitor] 80 mg PO HS #30 tab 10/12/17 [Rx] tiZANidine [Zanaflex] 4 mg PO TID 02/26/18 [History] oxyCODONE HCL [oxyCODONE HCL (IR)] 15 mg PO TID PRN 08/01/18 [History] Famotidine [Pepcid] 20 mg PO DAILY #30 tablet 12/02/18 [Rx] Carvedilol [Coreg*] 12.5 mg PO BID-W/MEALS #60 tab 02/08/19 [Rx] Ezetimibe [Zetia] 10 mg PO DAILY #30 tab 02/08/19 [Rx] cloNIDine HCL [Catapres] 0.1 mg PO BID #60 tab 02/08/19 [Rx] Ondansetron Odt [Zofran ODT] 4 mg PO Q8HR PRN #10 tab 04/23/19 [Rx] Lisinopril [Zestril] 40 mg PO DAILY #90 tab 05/24/19 [Rx] amLODIPine [Norvasc] 5 mg PO BID #60 tab 05/24/19 [Rx] Follow up Appointment(s)/Referral(s): [facility] [Provider Group] - 06/01/19 11:30 am (OFFICE WILL CALL TO CONFIRM APPOINTMENT) None,Stated [Primary Care Provider] - 1-2 days (Please contact your insurance company for a list of providers in your coverage.) Patient Instructions/Handouts: *Surgery [facility] - After Heart Catheterization - [employer] Instructions, Emphysema (DC), DASH Eating Plan (DC), Hypertension (DC)
[2019-05-24 11:41] VITALS: BP 134/87; PULSE 104; TEMP 98.4
--- NOTE | 2019-05-24 16:27 | PN ---
PROGRESS NOTE DATE OF SERVICE: Mr. Johnson had a small hematoma following cardiac cath in the right groin. Ultrasound revealed hematoma. There is no evidence of any pseudoaneurysm. There is no bruit. He complains of some pain. He was advised to take some Tylenol Extra Strength. Patient's blood pressure was slightly high, but now it has settled down. I am recommending that he can be discharged and follow up with his primary care physician. I will see him in the office in one week. He will be seen by my nurse practitioner on June 01. Vitals are stable. S1, S2 heard normally. Lungs are clear. Abdomen and lower extremity exam unchanged. This patient has widely patent LAD and diagonal. No intervention is necessary. He will be discharged today. MMODL / IJN: [id number] /
== END 2019-05-24 17:40 | disposition home or self-care (01) | DRG 287 ==
LOC: EC 06:59 → OBSVTOIN 10:03 → 1SOBS 10:03 → 3SCARD 15:44
PROVIDERS: ADMIT Internal Medicine; ATTEND Internal Medicine
PROC: B2111ZZ Fluoroscopy of Multiple Coronary Arteries using Low Osmolar Contrast (ICD-10-PCS; 2019-05-22)
PROC: 4A023N7 Measurement of Cardiac Sampling and Pressure, Left Heart, Percutaneous Approach (ICD-10-PCS; principal; 2019-05-22 12:56)
DX: I25.110 Atherosclerotic heart disease of native coronary artery with unstable angina pectoris (principal); E03.9 Hypothyroidism, unspecified; E78.5 Hyperlipidemia, unspecified; G89.4 Chronic pain syndrome; I10 Essential (primary) hypertension; J44.9 Chronic obstructive pulmonary disease, unspecified; K21.9 Gastro-esophageal reflux disease without esophagitis; M19.90 Unspecified osteoarthritis, unspecified site; G43.909 Migraine, unspecified, not intractable, without status migrainosus; K44.9 Diaphragmatic hernia without obstruction or gangrene; M54.5 Low back pain; R10.30 Lower abdominal pain, unspecified; K57.90 Diverticulosis of intestine, part unspecified, without perforation or abscess without bleeding; Z79.02 Long term (current) use of antithrombotics/antiplatelets; Z79.82 Long term (current) use of aspirin; Z79.899 Other long term (current) drug therapy; Z79.891 Long term (current) use of opiate analgesic; Z88.6 Allergy status to analgesic agent; Z88.5 Allergy status to narcotic agent; Z86.718 Personal history of other venous thrombosis and embolism; Z87.11 Personal history of peptic ulcer disease; Z87.891 Personal history of nicotine dependence; Z98.1 Arthrodesis status; Z95.5 Presence of coronary angioplasty implant and graft; Z98.41 Cataract extraction status, right eye; Z96.1 Presence of intraocular lens; Z80.6 Family history of leukemia; Z82.49 Family history of ischemic heart disease and other diseases of the circulatory system; Z82.5 Family history of asthma and other chronic lower respiratory diseases
CPT/HCPCS: 36415; 71046; 80048; 80053; 83690; 83735; 84484; 85025; 85610; 85730; 93005; 93458; 93975; 96365; 96366; 96375; 96376; 99291

== ENCOUNTER 2019-07-02 01:45 | Observation (INO) | payer MEDICARE ==
[2019-07-02] MEDS: NITROGLYCERIN SL TABS 0.4 MG TAB SUBLINGUAL STA ×3 (02:27→02:46)
[2019-07-02 02:37] LABS: Basophils % (A) 1 %; Eosinophils # (A) 0.1 k/uL (0-0.7); Eosinophils % (A) 2 %; HCT 37.9 % (39.0-53.0); Lymphocytes # (A) 0.8 k/uL (1.0-4.8); Lymphocytes % (A) 28 %; MCH 28.8 pg (25.0-35.0); MCHC 31.6 g/dL (31.0-37.0); Mean Platelet Volume 6.7; Monocytes # (A) 0.2 k/uL (0-1.0); Monocytes % (A) 7 %; Neutrophils # (A) 1.9 k/uL (1.3-7.7); Neutrophils % (A) 61 %; Platelet Count 300 k/uL (150-450); RBC 4.17 m/uL (4.30-5.90); RDW 14.4 % (11.5-15.5); WBC 3.1 k/uL (3.8-10.6)
--- NOTE | 2019-07-02 02:44 | XR ---
EXAM: XR Chest, 2 Views CLINICAL HISTORY: ITS.REASON XR Reason: Chest Pain TECHNIQUE: Frontal and lateral views of the chest. COMPARISON: 05/20/19 FINDINGS: No cardiomegaly. No edema, consolidation or other acute cardiopulmonary findings. Postop changes spine and other unchanged findings. IMPRESSION: No acute cardiopulmonary findings.
[2019-07-02 02:45] LABS: ALT 13 U/L (21-72); AST 18 U/L (17-59); African American GFR (CKD) >90 (>60 ml/min/1.73 sqM); Albumin 4.2 g/dL (3.5-5.0); Alkaline Phosphatase 70 U/L (38-126); Anion Gap 10 mmol/L; Blood Urea Nitrogen 9 mg/dL (9-20); Calcium 9.3 mg/dL (8.4-10.2); Carbon Dioxide 27 mmol/L (22-30); Chloride 100 mmol/L (98-107); Glucose 181 mg/dL (74-99); Potassium 4.4 mmol/L (3.5-5.1); Sodium 137 mmol/L (137-145); Total Bilirubin 0.4 mg/dL (0.2-1.3)
[2019-07-02 02:46] LABS: Partial Thromboplastin Time 27.5 sec (22.0-30.0)
[2019-07-02] MEDS ORDERED: NITROGLYCERIN SL TABS 0.4 MG TAB SUBLINGUAL PRN (04:19)
--- NOTE | 2019-07-02 04:30 | ED ---
Chest Pain HPI - General Chief Complaint: Chest Pain Stated Complaint: Chest pain Time Seen by Provider: 07/02/19 01:59 Source: EMS Mode of arrival: EMS - History of Present Illness Initial Comments: Salomon is a 63-year-old -Italian male with a history of hypertension, recurrent visits to the hospital for chest pain. Patient presents that emergency department today via EMS for evaluation of sudden onset of pressure- like chest pain. Patient reports he was sitting on his couch watching the [employer] game when he began to feel like something was standing on his chest. Patient reports similar previous episodes of chest pain. Patient denies any exertional symptoms any associated lightheadedness diaphoresis nausea or vomiting. Patient received aspirin prior to arrival with no improvement in his chest pain. Upon arrival he was given nitro with no improvement in his chest pain. - Related Data Home Medications Medication Instructions Recorded Confirmed Aspirin 81 mg PO DAILY 01/21/17 05/20/19 Fluticasone Nasal [place] [Flonase 1 spray EA NOSTRIL BID 04/20/17 05/20/19 Nasal [place]] Morphine Sulfate ER [Ms Contin] 30 mg PO TID 10/10/17 05/20/19 tiZANidine [Zanaflex] 4 mg PO TID 02/26/18 05/20/19 oxyCODONE HCL [oxyCODONE HCL (IR)] 15 mg PO TID PRN 08/01/18 05/20/19 Previous Rx's Medication Instructions Recorded Atorvastatin [Lipitor] 80 mg PO HS #30 tab 10/12/17 Famotidine [Pepcid] 20 mg PO DAILY #30 tablet 12/02/18 Carvedilol [Coreg*] 12.5 mg PO BID-W/MEALS #60 tab 02/08/19 Ezetimibe [Zetia] 10 mg PO DAILY #30 tab 02/08/19 cloNIDine HCL [Catapres] 0.1 mg PO BID #60 tab 02/08/19 Ondansetron Odt [Zofran ODT] 4 mg PO Q8HR PRN #10 tab 04/23/19 Atorvastatin [Lipitor] 80 mg PO HS #30 tab 05/24/19 Carvedilol [Coreg] 12.5 mg PO BID #60 tablet 05/24/19 Ezetimibe [Zetia] 10 mg PO DAILY #30 tab 05/24/19 Famotidine [Pepcid] 20 mg PO DAILY #30 tablet 05/24/19 Lisinopril [Zestril] 40 mg PO DAILY #30 tablet 05/24/19 Lisinopril [Zestril] 40 mg PO DAILY #90 tab 05/24/19 Ondansetron Odt [Zofran Odt] 4 mg PO Q8HR PRN #30 tab 05/24/19 amLODIPine [Norvasc] 5 mg PO BID #60 tab 05/24/19 amLODIPine [Norvasc] 5 mg PO BID #60 tab 05/24/19 cloNIDine HCL [Catapres] 0.1 mg PO BID #60 tab 05/24/19 Allergies Allergy/AdvReac Type Severity Reaction Status Date / Time ibuprofen [From Motrin] Allergy Rash/Hives Verified 05/20/19 09:53 ketorolac tromethamine Allergy Rash/Hives Verified 05/20/19 09:53 [From Toradol] Review of Systems ROS Statement: Those systems with pertinent positive or pertinent negative responses have been documented in the HPI. ROS Other: All systems not noted in ROS Statement are negative. EKG Findings - EKG Comments: EKG Findings:: EKG was obtained due to complaint of chest pain. EKG was obtained at 1:52 AM, rate is 111 rhythm is sinus tach there is normal axis and normal intervals are noted ST elevations or depressions there is no evidence of acute ischemia or infarction. Past Medical History Past Medical History: Coronary Artery Disease (CAD), Chest Pain / Angina, COPD, Deep Vein Thrombosis (DVT), GERD/Reflux, Hyperlipidemia, Hypertension, Osteoarthritis (OA), Thyroid Disorder Additional Past Medical History / Comment(s): Occasional palpitations, gastritis, small hiatal hernia, diverticular dx, pt states years ago he had PUD, chronic low back pain, chronic pain syndrome, migraines, DVT L arm, numbness/tingling bilateral lower legs, bilateral past R hand fracture, arthri tis multiple joints, hyperthyroid, sinus problems. History of Any Multi-Drug Resistant Organisms: None Reported Past Surgical History: Back Surgery, Cholecystectomy, Heart Catheterization With Stent, Orthopedic Surgery Additional Past Surgical History / Comment(s): EGDs/colonoscopies, multiple low back surgeries, bilateral arm and bilateral thigh surgeries for brown recluse spider bites with infection, morphine pain pump insertion and removal due to infection, PCI with stents, L rotator cuff repair, L knee arthroscopy, cervical fusion/cage, R cataract removal. Past Anesthesia/Blood Transfusion Reactions: No Reported Reaction Additional Past Anesthesia/Blood Transfusion Reaction / Comment(s): Pt states after cervical fusion he "" in the recovery room but does not know cause- he was"gone for 8 minutes" and states he was resusitated. Pt received blood after back surgery and tolerated it well. Date of Last Stent Placement:: 10/12/17 Past Psychological History: No Psychological Hx Reported Smoking Status: Former smoker Past Alcohol Use History: None Reported Past Drug Use History: None Reported - Past Family History Father Family Medical History: No Reported History Additional Family Medical History / Comment(s): Father had back problems. He lived to be 82 yrs old. Mother Family Medical History: Hypertension, Myocardial Infarction (NC) Additional Family Medical History / Comment(s): Mother of a NC at the age of 55yrs. Brother(s) Family Medical History: Cancer, COPD Additional Family Medical History / Comment(s): Leukemia General Exam - General Exam Comments Initial Comments: Physical Exam GENERAL: Patient is well-developed and well-nourished. Patient is nontoxic and well- hydrated and is in no distress. HENT: Normocephalic, Atraumatic. EYES: PERRL, EOMI PULMONARY: Unlabored respirations. No audible rales rhonchi or wheezing was noted. CARDIOVASCULAR: There is a regular rate and rhythm without any murmurs gallops or rubs. ABDOMEN: Soft and nontender with normal bowel sounds. SKIN: Skin is clear with no lesions or rashes and otherwise unremarkable. Well healed scar on right forearm : Deferred NEUROLOGIC: Patient is alert and oriented x3. Moving all extremities spontaneously MUSCULOSKELETAL: Normal extremities with adequate strength and full range of motion. No lower extremity swelling or edema. No calf tenderness. PSYCHIATRIC: Normal psychiatric evaluation Course Vital Signs 07/02/19 07/02/19 01:48 02:41 Temperature 99.5 F Pulse Rate 114 H 111 H Respiratory 18 18 Rate Blood Pressure 148/94 125/75 O2 Sat by Pulse 98 98 Oximetry Chest Pain MDM - MDM The patient was seen and evaluated, history is obtained from the patient and review of medical record Patient presenting with pressure-like chest pain with no relief from aspirin or nitro EKG was nonischemic the patient tachycardia he did appear to be quite anxious Cardiac workup was initiated, chest x-ray was unremarkable labs were unremarkable, troponin was negative, patient heart rate improved however he continued to report pressure-like discomfort Due to patient's age, risk factors we'll plan to place him on observation for serial troponins and evaluation by cardiology. Disposition Clinical Impression: Chest pain Disposition: ADMITTED IP TO THIS HOSP Condition: Stable Is patient prescribed a controlled substance at d/c from ED?: No Referrals: None,Stated [Primary Care Provider] - 1-2 days
[2019-07-02] MEDS ORDERED: ACETAMINOPHEN TAB 325 MG TAB PO PRN (04:45)
[2019-07-02] MEDS ORDERED: ACETAMINOPHEN TAB 325 MG TAB PO STA (04:47)
[2019-07-02 05:22] VITALS: TEMP 98
--- NOTE | 2019-07-02 08:19 | P.CRDCN ---
History of Present Illness Consult date: 07/02/19 Chief complaint: Chest pain History of present illness: This is a pleasant 63-year-old gentleman who follows with Dr. Go in the office on regular basis with a past medical history significant for coronary artery disease and prior stenting of the LAD as well as diagonal branch of the LAD, hypertension, and dyslipidemia, presented to the hospital complaining of chest discomfort. As a matter of fact the patient was brought to the hospital b y ambulance. The patient last heart catheterization was performed in April 2019 when he presented to the hospital with a chest discomfort and at that point the heart catheterization revealed mild to moderate nonobstructive disease with patent stent in the LAD and diagonal branch. This time he was in his usual state of health until yesterday when he was sitting at home watching a football game and suddenly started experiencing discomfort in the mid of the chest, as a pressure/squeezing sensation, with radiation to the left arm, with associated symptoms of sweating as well as shortness of breath. The patient states now he still have very mild discomfort. No dizziness or lightheadedness, nausea or vomiting, or loss of consciousness or syncope. The EKG showed sinus rhythm without any ischemic ST or T-wave abnormalities. The first set of troponin came in to be unremarkable. The patient is known to have chronic chest discomfort with multiple hospital admission with a chest discomfort. When he presented to the hospital this time his pressure was within normal limits but he was slightly tachycardic. The EKG showed sinus tachycardia without any significant ST or T- wave abnormalities noted. Past Medical History Past Medical History: Coronary Artery Disease (CAD), Chest Pain / Angina, COPD, Deep Vein Thrombosis (DVT), GERD/Reflux, Hyperlipidemia, Hypertension, Osteoarthritis (OA), Thyroid Disorder Additional Past Medical History / Comment(s): Occasional palpitations, gastritis, small hiatal hernia, diverticular dx, pt states years ago he had PUD, chronic low back pain, chronic pain syndrome, migraines, DVT L arm, numbness/tingling bilateral lower legs, bilateral past R hand fracture, arthritis multiple joints, hyperthyroid, sinus problems. History of Any Multi-Drug Resistant Organisms: None Reported Past Surgical History: Back Surgery, Cholecystectomy, Heart Catheterization With Stent, Orthopedic Surgery Additional Past Surgical History / Comment(s): EGDs/colonoscopies, multiple low back surgeries, bilateral arm and bilateral thigh surgeries for brown recluse spider bites with infection, morphine pain pump insertion and removal due to infection, PCI with stents, L rotator cuff repair, L knee arthroscopy, cervical fusion/cage, R cataract removal. Past Anesthesia/Blood Transfusion Reactions: No Reported Reaction Additional Past Anesthesia/Blood Transfusion Reaction / Comment(s): Pt states after cervical fusion he "" in the recovery room but does not know cause- he was"gone for 8 minutes" and states he was resusitated. Pt received blood after back surgery and tolerated it well. Date of Last Stent Placement:: 10/12/17 Past Psychological History: No Psychological Hx Reported Additional Psychological History / Comment(s): He uses a walker and cane to ambulate. Smoking Status: Former smoker Past Alcohol Use History: None Reported Past Drug Use History: None Reported - Past Family History Father Family Medical History: No Reported History Additional Family Medical History / Comment(s): Father had back problems. He lived to be 82 yrs old. Mother Family Medical History: Hypertension, Myocardial Infarction (MA) Additional Family Medical History / Comment(s): Mother of a MA at the age of 55yrs. Brother(s) Family Medical History: Cancer, COPD Additional Family Medical History / Comment(s): Leukemia Medications and Allergies Home Medications Medication Instructions Recorded Confirmed Type Aspirin 81 mg PO DAILY 01/21/17 05/20/19 History Fluticasone Nasal [place] [Flonase 1 spray EA NOSTRIL BID 04/20/17 05/20/19 History Nasal [place]] Morphine Sulfate ER [Ms Contin] 30 mg PO TID 10/10/17 05/20/19 History Atorvastatin [Lipitor] 80 mg PO HS #30 tab 10/12/17 05/20/19 Rx tiZANidine [Zanaflex] 4 mg PO TID 02/26/18 05/20/19 History oxyCODONE HCL [oxyCODONE HCL (IR)] 15 mg PO TID PRN 08/01/18 05/20/19 History Carvedilol [Coreg*] 12.5 mg PO BID-W/MEALS #60 tab 02/08/19 05/20/19 Rx cloNIDine HCL [Catapres] 0.1 mg PO BID #60 tab 02/08/19 05/20/19 Rx Ezetimibe [Zetia] 10 mg PO DAILY #30 tab 05/24/19 07/02/19 Rx Famotidine [Pepcid] 20 mg PO DAILY #30 tablet 05/24/19 Rx Lisinopril [Zestril] 40 mg PO DAILY #30 tablet 05/24/19 Rx Ondansetron Odt [Zofran Odt] 4 mg PO Q8HR PRN #30 tab 05/24/19 Rx amLODIPine [Norvasc] 5 mg PO BID #60 tab 05/24/19 Rx Allergies Allergy/AdvReac Type Severity Reaction Status Date / Time ibuprofen [From Motrin] Allergy Rash/Hives Verified 07/02/19 05:20 ketorolac tromethamine Allergy Rash/Hives Verified 07/02/19 05:20 [From Toradol] Physical Exam Vitals: Vital Signs Temp Pulse Pulse Resp BP BP Pulse Ox 07/02/19 05:21 98.0 F 77 15 129/83 98 07/02/19 04:35 97.9 F 89 18 153/99 96 07/02/19 02:41 111 H 18 125/75 98 07/02/19 01:48 99.5 F 114 H 18 148/94 98 Intake and Output 07/01/19 07/02/19 07/02/19 22:59 06:59 14:59 Other: Voiding Method Toilet # Voids 1 Weight 78.018 kg - Constitutional General appearance: no acute distress - Respiratory Respiratory: bilateral: CTA - Cardiovascular Rhythm: regular Heart sounds: normal: S1, S2 Results 07/02/19 02:19 07/02/19 02:19 Cardiac Enzymes 07/02/19 07/02/19 Range/Units 02:19 02:19 AST 18 (17-59) U/L Troponin I <0.012 (0.000-0.034) ng/mL Coagulation 07/02/19 Range/Units 02:19 PT 11.0 (9.0-12.0) sec APTT 27.5 (22.0-30.0) sec CBC 07/02/19 Range/Units 02:19 WBC 3.1 L (3.8-10.6) k/uL RBC 4.17 L (4.30-5.90) m/uL Hgb 12.0 L (13.0-17.5) gm/dL Hct 37.9 L (39.0-53.0) % Plt Count 300 (150-450) k/uL Comprehensive Metabolic Panel 07/02/19 Range/Units 02:19 Sodium 137 (137-145) mmol/L Potassium 4.4 (3.5-5.1) mmol/L Chloride 100 (98-107) mmol/L Carbon Dioxide 27 (22-30) mmol/L BUN 9 (9-20) mg/dL Creatinine 0.73 (0.66-1.25) mg/dL Glucose 181 H (74-99) mg/dL Calcium 9.3 (8.4-10.2) mg/dL AST 18 (17-59) U/L ALT 13 L (21-72) U/L Alkaline Phosphatase 70 (38-126) U/L Total Protein 7.0 (6.3-8.2) g/dL Albumin 4.2 (3.5-5.0) g/dL Current Medications Generic Name Dose Route Start Last Admin Trade Name Freq PRN Reason Stop Dose Admin Acetaminophen 650 mg 07/02/19 04:45 Tylenol Tab PO Q6HR PRN Fever and/ or Pain Nitroglycerin 0.4 mg 07/02/19 04:19 Nitrostat SUBLINGUAL Q5M PRN Chest Pain Intake and Output 07/01/19 07/02/19 07/02/19 22:59 06:59 14:59 Other: Voiding Method Toilet # Voids 1 Weight 78.018 kg 07/02/19 02:19 07/02/19 02:19 Assessment and Plan Assessment: Assessment #1 chest discomfort #2 known CAD and status post a stenting as described above #3 hypertension #4 dyslipidemia Plan #1 acute coronary syndrome to be ruled out. We will follow-up with the serial cardiac enzymes #2 PE to be ruled out. The patient was in tachycardia when he presented. I will get a d-dimer #3 obtain an echocardiogram was Doppler #4 further recommendation to follow that Thank you for allowing us participate in his care
[2019-07-02] MEDS ORDERED: ONDANSETRON ODT 4 MG TAB PO PRN (10:21)
[2019-07-02] MEDS ORDERED: HYDROmorphone 0.5 MG/0.5 ML SYRINGE IVP STA (10:24)
[2019-07-02] MEDS ORDERED: cloNIDine HCL 0.1 MG TAB PO STA (10:41)
[2019-07-02] MEDS ORDERED: CARVEDILOL 12.5 MG TAB PO STA (10:41)
[2019-07-02] MEDS ORDERED: amLODIPine 5 MG TAB PO STA (10:41)
[2019-07-02] MEDS ORDERED: MORPHINE SULFATE ER 30 MG TABLET PO STA (11:14)
[2019-07-02 11:16] VITALS: BP 144/85; PULSE 89; RESP 18
--- NOTE | 2019-07-02 12:35 | CT ---
EXAMINATION TYPE: CT angio chest DATE OF EXAM: 07/02/2019 12:15 PM COMPARISON: 11/19/2016 HISTORY: Chest pain CT DLP: 276.1 mGycm Automated exposure control for dose reduction was used. CONTRAST: CTA scan of the thorax is performed with IV Contrast, patient injected with 68 mL of Isovue 370, pulm onary embolism protocol. . FINDINGS: LUNGS: The lungs are grossly clear, there is no concerning parenchymal mass or nodule identified. T here is no pleural effusion or pneumothorax seen. The tracheobronchial tree is patent. Subsegmental changes at the lung bases are most typical of atelectasis. MEDIASTINUM: Within the left lower lobe there is an eccentric area of low density involving the lower lobe distal branch. Distal enhancement is noted.. There are no greater than 1 cm hilar or mediastin al lymph nodes. No pericardial effusion is seen. OTHER: Hypodensities within the liver too small to characterize. Previous cholecystectomy changes ar e noted. Hypertrophic and degenerative change of the spine noted. Correlate for thyroid enlargement. IMPRESSION: 1. No diagnostic evidence of acute central pulmonary embolism. There is wall thickening or eccentric low density involving a left lower lobe pulmonary artery branch. Its eccentric location suggests this is more likely indicative of a small remote or chronic pulmonary embolism. Correlate clinically for confirmation to exclude acute embolism. 2. Correlate for thyromegaly. 3. Hypodensities in the liver too small to characterize.
--- NOTE | 2019-07-02 12:55 | ECHOF ---
Referral Reason:cp MEASUREMENTS -------- HEIGHT: 180.3 cm WEIGHT: 78.0 kg BP: 129/83 RVIDd: 3.3 cm (< 3.3) IVSd: 1.5 cm (0.6 - 1.1) LVIDd: 3.9 cm (3.9 - 5.3) LVPWd: 1.5 cm (0.6 - 1.1) IVSs: 2.1 cm LVIDs: 2.3 cm LVPWs: 2.1 cm LAESV Index (A-L): 30.15 ml/m Ao Diam: 3.5 cm (2.0 - 3.7) AV Cusp: 2.2 cm (1.5 - 2.6) LA Diam: 3.3 cm (2.7 - 3.8) MV EXCURSION: 19.089 mm (> 18.000) MV EF SLOPE: 101 mm/s (70 - 150) EPSS: 0.4 cm MV E Héctor: 0.69 m/s MV DecT: 193 ms MV A Héctor: 0.74 m/s MV E/A Ratio: 0.93 AV maxP.73 mmHg AV meanP.53 mmHg RAP: 5.00 mmHg RVSP: 14.84 mmHg FINDINGS -------- Sinus rhythm. This was a technically good study. The left ventricular size is normal. There is moderate concentric left ventricular hypertrophy. T here is normal global left ventricular contractility. Overall left ventricular systolic function is normal with, an EF between 60 - 65 %. The diastolic filling pattern is normal for the age of the p atient 6.45. The right ventricle is normal in size. LA is midly dilated 29-33ml/m2. The right atrial size is normal. Interatrial and interventricular septum intact. The aortic valve is trileaflet and appears structurally normal. There is mild aortic valve sclerosi s. There is no evidence of aortic regurgitation. There is no evidence of aortic stenosis. There is trace mitral regurgitation. Trace tricuspid regurgitation present. There is no evidence of pulmonary hypertension. The right ventricular systolic pressure, as measured by Doppler, is 14.84mmHg. There is no pulmonic regurgitation present. The aortic root size is normal. Normal inferior vena cava with normal inspiratory collapse consistent with estimated right atrial pre ssure of 5 mmHg. There is no pericardial effusion. CONCLUSIONS -------- 1. Sinus rhythm. 2. This was a technically good study. 3. The left ventricular size is normal. 4. There is moderate concentric left ventricular hypertrophy. 5. There is normal global left ventricular contractility. 6. Overall left ventricular systolic function is normal with, an EF between 60 - 65 %. 7. The diastolic filling pattern is normal for the age of the patient 6.45 8. The right ventricle is normal in size. 9. LA is midly dilated 29-33ml/m2. 10. The right atrial size is normal. 11. Interatrial and interventricular septum intact. 12. The aortic valve is trileaflet and appears structurally normal. 13. There is mild aortic valve sclerosis. 14. There is no evidence of aortic regurgitation. 15. There is no evidence of aortic stenosis. 16. There is trace mitral regurgitation. 17. Trace tricuspid regurgitation present. 18. There is no evidence of pulmonary hypertension. 19. The right ventricular systolic pressure, as measured by Doppler, is 14.84mmHg. 20. There is no pulmonic regurgitation present. 21. The aortic root size is normal. 22. Normal inferior vena cava with normal inspiratory collapse consistent with estimated right atrial pressure of 5 mmHg. 23. There is no pericardial effusion. HAND SHAPER: Clarissa Car RDCS
[2019-07-02] MEDS ORDERED: MORPHINE SULFATE ER 30 MG TABLET PO SCH (16:00)
[2019-07-02] MEDS ORDERED: tiZANidine 4 MG TAB PO SCH (16:00)
[2019-07-02] MEDS ORDERED: CARVEDILOL 12.5 MG TAB PO SCH (17:30)
[2019-07-02] MEDS ORDERED: cloNIDine HCL 0.1 MG TAB PO SCH (21:00)
[2019-07-02] MEDS ORDERED: amLODIPine 5 MG TAB PO SCH (21:00)
[2019-07-02] MEDS ORDERED: ATORVASTATIN 80 MG TAB PO SCH (21:00)
[2019-07-02] MEDS ORDERED: FLUTICASONE 50MCG/SPRAY NASAL 16GM EA NOSTRIL SCH (21:00)
--- NOTE | 2019-07-02 23:23 | HP ---
HISTORY AND PHYSICAL DATE OF SERVICE: 07/02/2019. CHIEF COMPLAINT: Chest pain HISTORY OF PRESENT ILLNESS: This 63-year-old gentleman with a past medical history of multiple medical problems including CAD, COPD, DVT, GERD, hypertension, hyperlipidemia, history of DJD, history of CAD stent being followed by no primary doctor in the outpatient setting recently apparently had a recent cardiac catheterization. The patient is complaining of severe chest pain felt in the anterior part of chest, radiated to the neck and arm and patient came to [facility]. Troponins negative. Dr. Montano evaluated the patient and D- dimer was also slightly elevated, but however the CT angio showed no evidence of pulmonary embolism. The patient being closely monitored at this time. There is no history of fever, rigors or chills. No history of headache, loss of consciousness or seizures. PAST MEDICAL HISTORY: History of CAD, history of COPD, DVT, GERD, hyperlipidemia, hypertension, history of DJD. MEDICATIONS: Prior to admission home medications are: 1. Zanaflex 4 mg p.o. t.i.d. 2. Oxycodone 50 mg p.o. t.i.d. p.r.n. 3. Catapres 0.1 p.o. b.i.d. 4. Norvasc 5 mg p.o. b.i.d. 5. Effient 10 mg p.o. daily p.r.n. 6. Zofran 4 mg q.8 p.r.n. 7. MS Contin 30 mg p.o. t.i.d. 8. Zestril 40 mg p.o. daily. 9. Fluticasone Flonase nasal spray 1 spray b.i.d. 10.Pepcid 20 mg p.o. daily. 11.Zetia 10 mg p.o. daily. 12.Coreg 12.5 mg b.i.d. with meals. 13.Lipitor 80 mg q.h.s. 14.Aspirin 81 mg daily. 15.Nitroglycerin 0.4 sublingual p.r.n. ALLERGIES: IBUPROFEN AND KETORALAC. SOCIAL HISTORY: Social history is previous history of smoking. FAMILY HISTORY: History of back problems in father. REVIEW OF SYSTEMS: ENT: No diminished vision. No diminished hearing. CARDIOVASCULAR as mentioned earlier. RESPIRATORY: As mentioned earlier. GI no nausea or vomiting. no dysuria. NERVOUS SYSTEM: No numbness or weakness. ALLERGY/IMMUNOLOGY: No asthma or hayfever. MUSCULOSKELETAL: As mentioned earlier. HEMATOLOGY/ONCOLOGY: No history of anemia. ENDOCRINE: No history of diabetes or hypothyroidism. CONSTITUTIONAL: As mentioned earlier. Dermatology: Negative. Rheumatology: Negative. Psychiatry: As mentioned earlier. PHYSICAL EXAMINATION: The patient is alert and oriented x three. Pulse is 89. Blood pressure 144/85, respiration 18, temperature 98 degrees, pulse ox 98% on room air. HEENT: Conjunctivae normal. NECK: No JVD. CARDIOVASCULAR: S1, S2. RESPIRATIONS: Breath sounds diminished in the bases. Scattered rhonchi. No crackles. ABDOMEN: Soft, nontender. No mass palpable. LEGS: No edema. No swelling. NERVOUS SYSTEM: Higher functions as mentioned earlier. Moves all four extremities. No focal motor or sensory deficits. LYMPHATICS: No lymph nodes palpable in the neck, axillae or groin. SKIN: No ulcers, rashes or bleeding. JOINTS: No active deforming arthropathy. LABS: WBC 3.2, hemoglobin is 12. D-dimer is 1.03. ASSESSMENT: 1. Chest pain possibly musculoskeletal, possible unstable angina. 2. History of coronary artery disease. 3. History of chronic obstructive pulmonary disease. 4. History of deep vein thrombosis. 5. History of recent cardiac catheterization. 6. History of gastroesophageal reflux disease. 7. Hypertension. 8. Hyperlipidemia. 9. History of degenerative joint disease. 10.Question palpitations. 11.History of coronary artery disease/ stent. RECOMMENDATIONS AND DISCUSSION: In this 63-year-old gentleman who presented with multiple medical issues, at this time, patient currently stable. Cardiology cleared the patient for discharge. CT scan did not show any evidence of any pulmonary embolism. The patient will be discharged in a stable condition with guarded prognosis. Recommend to continue the home medications. The diet is cardiac diet. Activity limited until followup. Continue the previous home medication as listed above. Follow up with primary physician. Follow up with Cardiology as recommended. Once again, the patient is being discharged in stable condition with guarded prognosis. MMODL / IJN: [id number] /
[2019-07-03] MEDS ORDERED: EZETIMIBE 10 MG TAB PO SCH (09:00)
[2019-07-03] MEDS ORDERED: ASPIRIN 81 MG PO SCH (09:00)
[2019-07-03] MEDS ORDERED: PRASUGREL 10 MG TAB PO SCH (09:00)
[2019-07-03] MEDS ORDERED: LISINOPRIL 20 MG TAB PO SCH (09:00)
[2019-07-03] MEDS ORDERED: FAMOTIDINE 20 MG TAB PO SCH (09:00)
== END 2019-07-02 15:40 | disposition home or self-care (01) ==
LOC: EC 01:45 → 1SOBS 04:19
PROVIDERS: ADMIT Hospitalist; ATTEND Hospitalist
DX: R07.89 Other chest pain (principal); R06.02 Shortness of breath; R61 Generalized hyperhidrosis; R00.0 Tachycardia, unspecified; I25.10 Atherosclerotic heart disease of native coronary artery without angina pectoris; J44.9 Chronic obstructive pulmonary disease, unspecified; K21.9 Gastro-esophageal reflux disease without esophagitis; I10 Essential (primary) hypertension; E78.5 Hyperlipidemia, unspecified; R79.89 Other specified abnormal findings of blood chemistry; Z88.8 Allergy status to other drugs, medicaments and biological substances; G89.4 Chronic pain syndrome; M54.5 Low back pain; G43.909 Migraine, unspecified, not intractable, without status migrainosus; R20.0 Anesthesia of skin; R20.2 Paresthesia of skin; M15.9 Polyosteoarthritis, unspecified; E05.90 Thyrotoxicosis, unspecified without thyrotoxic crisis or storm; Z95.5 Presence of coronary angioplasty implant and graft; Z86.718 Personal history of other venous thrombosis and embolism; Z87.891 Personal history of nicotine dependence; Z87.11 Personal history of peptic ulcer disease; Z90.49 Acquired absence of other specified parts of digestive tract; Z98.1 Arthrodesis status; Z79.82 Long term (current) use of aspirin; Z79.899 Other long term (current) drug therapy; Z79.891 Long term (current) use of opiate analgesic; Z82.49 Family history of ischemic heart disease and other diseases of the circulatory system; Z80.6 Family history of leukemia; Z82.5 Family history of asthma and other chronic lower respiratory diseases; Z82.69 Family history of other diseases of the musculoskeletal system and connective tissue
CPT/HCPCS: 96374; 99285; 36415; 93005; 93306; 85379; 80053; 83735; 84484; 85025; 85610; 85730; 71046; 71275; G0378; J1170; Q9967

== ENCOUNTER 2019-07-20 13:44 | Emergency (ER) | payer MEDICARE ==
[2019-07-20 13:55] VITALS: RESP 18
[2019-07-20] MEDS ORDERED: NITROGLYCERIN SL TABS 0.4 MG TAB SUBLINGUAL STA (14:11)
[2019-07-20] MEDS ORDERED: SODIUM CHLORIDE 0.9% 500 ML 500 ML IV STA (14:11)
[2019-07-20] MEDS ORDERED: ASPIRIN 81 MG PO STA (14:11)
--- NOTE | 2019-07-20 14:18 | ED ---
General Adult HPI - General Chief complaint: Chest Pain Stated complaint: chest pain Time Seen by Provider: 07/20/19 14:02 Source: patient Mode of arrival: ambulatory Limitations: no limitations - History of Present Illness Initial comments: 63-year-old male patient with past medical history significant for coronary artery disease presents to the emergency department today for evaluation of chest pain. The patient states that he developed left-sided chest pain radiating into the left jaw and face around 11:30 this morning. Patient states with this he is experiencing nausea, upper abdominal pain, and shortness of breath. Patient reports three episodes of vomiting today. Patient denies taking any medication for his symptoms. Patient states he did have some chest pain yesterday for which he took three nitro tablets. Patient denies any exacerba ting or relieving factors with the pain. States it is constant. Describes it as a pressure type sensation. Denies any leg pain or swelling. States he has had a cough since last evening. Denies sputum production. Patient denies any recent rash, fever, chills, diarrhea, constipation, back pain, numbness, tingling, dizziness, weakness, hematuria, dysuria, urinary urgency, urinary frequency, headache, visual changes, or any other complaints. Patient did have heart catheterization in April 2019 which showed 30-40% narrowing at the bifurcation in the LAD. Patient has one stent to his LAD. He is a former smoker. Denies alcohol use. - Related Data Home Medications Medication Instructions Recorded Confirmed Aspirin 81 mg PO DAILY 01/21/17 07/20/19 Fluticasone Nasal [place] [Flonase 1 spray EA NOSTRIL BID 04/20/17 07/20/19 Nasal [place]] Morphine Sulfate ER [Ms Contin] 30 mg PO TID 10/10/17 07/20/19 tiZANidine [Zanaflex] 4 mg PO TID 02/26/18 07/20/19 oxyCODONE HCL [oxyCODONE HCL (IR)] 15 mg PO TID PRN 08/01/18 07/20/19 Prasugrel [Effient] 10 mg PO DAILY 07/02/19 07/20/19 Previous Rx's Medication Instructions Recorded Atorvastatin [Lipitor] 80 mg PO HS #30 tab 10/12/17 Carvedilol [Coreg*] 12.5 mg PO BID-W/MEALS #60 tab 02/08/19 cloNIDine HCL [Catapres] 0.1 mg PO BID #60 tab 02/08/19 Ezetimibe [Zetia] 10 mg PO DAILY #30 tab 05/24/19 Famotidine [Pepcid] 20 mg PO DAILY #30 tablet 05/24/19 Lisinopril [Zestril] 40 mg PO DAILY #30 tablet 05/24/19 Ondansetron Odt [Zofran ODT] 4 mg PO Q8HR PRN #30 tab 05/24/19 amLODIPine [Norvasc] 5 mg PO BID #60 tab 05/24/19 Nitroglycerin Sl Tabs [Nitrostat] 0.4 mg SUBLINGUAL Q5M PRN #20 tab 07/02/19 Allergies Allergy/AdvReac Type Severity Reaction Status Date / Time ibuprofen [From Motrin] Allergy Rash/Hives Verified 07/20/19 14:15 ketorolac tromethamine Allergy Rash/Hives Verified 07/20/19 14:15 [From Toradol] Review of Systems ROS Statement: Those systems with pertinent positive or pertinent negative responses have been documented in the HPI. ROS Other: All systems not noted in ROS Statement are negative. Past Medical History Past Medical History: Coronary Artery Disease (CAD), Chest Pain / Angina, COPD, Deep Vein Thrombosis (DVT), GERD/Reflux, Hyperlipidemia, Hypertension, Osteoarthritis (OA), Thyroid Disorder Additional Past Medical History / Comment(s): Occasional palpitations, gastritis, small hiatal hernia, diverticular dx, pt states years ago he had PUD, chronic low back pain, chronic pain syndrome, migraines, DVT L arm, numbness/tingling bilateral lower legs, bilateral past R hand fracture, arthritis multiple joints, hyperthyroid, sinus problems. History of Any Multi-Drug Resistant Organisms: None Reported Past Surgical History: Back Surgery, Cholecystectomy, Heart Catheterization With Stent, Orthopedic Surgery Additional Past Surgical History / Comment(s): EGDs/colonoscopies, multiple low back surgeries, bilateral arm and bilateral thigh surgeries for brown recluse spider bites with infection, morphine pain pump insertion and removal due to infection, PCI with stents, L rotator cuff repair, L knee arthroscopy, cervical fusion/cage, R cataract removal. Past Anesthesia/Blood Transfusion Reactions: No Reported Reaction Additional Past Anesthesia/Blood Transfusion Reaction / Comment(s): Pt states after cervical fusion he "" in the recovery room but does not know cause- he was"gone for 8 minutes" and states he was resusitated. Pt received blood after back surgery and tolerated it well. Date of Last Stent Placement:: 10/12/17 Past Psychological History: No Psychological Hx Reported Smoking Status: Former smoker Past Alcohol Use History: None Reported Past Drug Use History: None Reported - Past Family History Father Family Medical History: No Reported History Additional Family Medical History / Comment(s): Father had back problems. He lived to be 82 yrs old. Mother Family Medical History: Hypertension, Myocardial Infarction ([place]) Additional Family Medical History / Comment(s): Mother of a [place] at the age of 55yrs. Brother(s) Family Medical History: Cancer, COPD Additional Family Medical History / Comment(s): Leukemia General Exam Limitations: no limitations General appearance: alert, in no apparent distress, other (This is a well- developed, well-nourished adult male patient in no acute distress. Vital signs upon presentation are temperature 97.8F, pulse 98, respirations 18, blood pressure 156/91, pulse ox 100% on room air.) Eye exam: Present: normal appearance, PERRL, EOMI. Absent: scleral icterus, conjunctival injection, periorbital swelling ENT exam: Present: normal exam, normal oropharynx, mucous membranes moist Respiratory exam: Present: normal lung sounds bilaterally. Absent: respiratory distress, wheezes, rales, rhonchi, stridor Cardiovascular Exam: Present: regular rate, normal rhythm, normal heart sounds. Absent: systolic murmur, diastolic murmur, rubs, gallop, clicks GI/Abdominal exam: Present: soft, normal bowel sounds. Absent: distended, tenderness, guarding, rebound, rigid Neurological exam: Present: alert, oriented X3, CN II-XII intact Psychiatric exam: Present: normal affect, normal mood Skin exam: Present: warm, dry, intact, normal color. Absent: rash Course Vital Signs 07/20/19 07/20/19 07/20/19 13:51 15:50 17:06 Temperature 97.8 F 97.9 F Pulse Rate 98 96 78 Respiratory 18 18 18 Rate Blood Pressure 156/91 154/97 148/79 O2 Sat by Pulse 100 98 98 Oximetry EKG Findings - EKG Comments: EKG Findings:: EKG obtained at 1419 shows normal sinus rhythm with a ventricular rate of 86, MT interval 160, QRS duration 90, QT 368, QTC 440. No evidence of ST elevation or depression. Medical Decision Making - Medical Decision Making 63-year-old male patient percents into the emergency department today for evaluation of chest pain and left-sided facial pain. Physical examination is unremarkable. Lungs are clear to auscultation with good air movement. Patient's pain is not reproducible to palpation. Patient's pain is constant since yesterday. He did take nitroglycerin states it did not help. Patient has had 2 admissions for similar symptoms over the last couple of months. He did have a cardiac catheterization in April which showed 30-40% stenosis of the LAD. Labs reviewed and are unremarkable. Troponin negative. He will be discharged to follow-up with his primary care physician and his accreditation coordinator for recheck as soon as possible. Return parameters were discussed in detail. He verbalizes understanding and agrees with this plan. - Lab Data Result diagrams: 07/20/19 15:34 07/20/19 15:34 Lab Results 07/20/19 07/20/19 07/20/19 Range/Units 15:34 15:34 15:34 WBC 3.3 L (3.8-10.6) k/uL RBC 4.31 (4.30-5.90) m/uL Hgb 12.6 L (13.0-17.5) gm/dL Hct 38.4 L (39.0-53.0) % MCV 89.3 (80.0-100.0) fL MCH 29.2 (25.0-35.0) pg MCHC 32.7 (31.0-37.0) g/dL RDW 15.7 H (11.5-15.5) % Plt Count 372 (150-450) k/uL Neutrophils % 66 % Lymphocytes % 23 % Monocytes % 6 % Eosinophils % 2 % Basophils % 0 % Neutrophils # 2.2 (1.3-7.7) k/uL Lymphocytes # 0.8 L (1.0-4.8) k/uL Monocytes # 0.2 (0-1.0) k/uL Eosinophils # 0.1 (0-0.7) k/uL Basophils # 0.0 (0-0.2) k/uL Sodium 140 (137-145) mmol/L Potassium 4.4 (3.5-5.1) mmol/L Chloride 108 H (98-107) mmol/L Carbon Dioxide 21 L (22-30) mmol/L Anion Gap 11 mmol/L BUN 11 (9-20) mg/dL Creatinine 0.48 L (0.66-1.25) mg/dL Est GFR (CKD-EPI)AfAm >90 (>60 ml/min/1.73 sqM) Est GFR (CKD-EPI)NonAf >90 (>60 ml/min/1.73 sqM) Glucose 109 H (74-99) mg/dL Calcium 9.7 (8.4-10.2) mg/dL Magnesium 2.1 (1.6-2.3) mg/dL Total Bilirubin 0.6 (0.2-1.3) mg/dL AST 18 (17-59) U/L ALT 17 L (21-72) U/L Alkaline Phosphatase 82 (38-126) U/L Troponin I <0.012 (0.000-0.034) ng/mL Total Protein 7.2 (6.3-8.2) g/dL Albumin 4.3 (3.5-5.0) g/dL Lipase 35 (23-300) U/L - Radiology Data Radiology results: report reviewed, image reviewed Two-view x-ray of the chest is obtained. Report was reviewed in its entirety. Impression by Dr. Nickerson shows no acute process. Correlate for COPD. Disposition Clinical Impression: Chest pain Disposition: HOME SELF-CARE Condition: Good Instructions (If sedation given, give patient instructions): Chest Pain (ED) Additional Instructions: Follow-up with your accreditation coordinator and primary care physician for recheck as soon as possible. Return to the emergency department immediately for any new, worsening, or concerning symptoms. Is patient prescribed a controlled substance at d/c from ED?: No Referrals: Julian Ttius MD [REFERRING] - 1-2 days Time of Disposition: 16:53
--- NOTE | 2019-07-20 15:20 | XR ---
EXAMINATION TYPE: XR chest 2V DATE OF EXAM: 07/20/2019 COMPARISON: 07/02/2019 TECHNIQUE: PA and lateral views submitted. HISTORY: Chest pain FINDINGS: The lungs are clear and there is no pneumothorax, pleural effusion, or focal pneumonia. Postsurgica l change overlying the cervical spine. Diffuse osteopenia. Arthropathy of the shoulders. Mild hyperin flation. No overt failure. Chronic rib deformity on the left suggest remote trauma. Stable mild promi nence of the ascending aorta. IMPRESSION: 1. No acute process. Correlate for COPD
[2019-07-20 15:42] LABS: Basophils % (A) 0 %; Eosinophils # (A) 0.1 k/uL (0-0.7); Eosinophils % (A) 2 %; HCT 38.4 % (39.0-53.0); HGB 12.6 gm/dL (13.0-17.5); Lymphocytes # (A) 0.8 k/uL (1.0-4.8); Lymphocytes % (A) 23 %; MCH 29.2 pg (25.0-35.0); MCHC 32.7 g/dL (31.0-37.0); MCV 89.3 fL (80.0-100.0); Mean Platelet Volume 6.2; Monocytes # (A) 0.2 k/uL (0-1.0); Monocytes % (A) 6 %; Neutrophils # (A) 2.2 k/uL (1.3-7.7); Neutrophils % (A) 66 %; Platelet Count 372 k/uL (150-450); RBC 4.31 m/uL (4.30-5.90); RDW 15.7 % (11.5-15.5); WBC 3.3 k/uL (3.8-10.6)
[2019-07-20] MEDS ORDERED: ONDANSETRON ODT 4 MG TAB PO STA (15:45)
[2019-07-20 16:07] LABS: ALT 17 U/L (21-72); AST 18 U/L (17-59); African American GFR (CKD) >90 (>60 ml/min/1.73 sqM); Albumin 4.3 g/dL (3.5-5.0); Alkaline Phosphatase 82 U/L (38-126); Anion Gap 11 mmol/L; Blood Urea Nitrogen 11 mg/dL (9-20); Calcium 9.7 mg/dL (8.4-10.2); Carbon Dioxide 21 mmol/L (22-30); Chloride 108 mmol/L (98-107); Glucose 109 mg/dL (74-99); Magnesium 2.1 mg/dL (1.6-2.3); Potassium 4.4 mmol/L (3.5-5.1); Sodium 140 mmol/L (137-145); Total Bilirubin 0.6 mg/dL (0.2-1.3); Total Protein 7.2 g/dL (6.3-8.2)
[2019-07-20] MEDS ORDERED: ACETAMINOPHEN TAB 325 MG TAB PO STA (16:54)
[2019-07-20 17:08] VITALS: BP 148/79; PULSE 78; TEMP 97.9
== END 2019-07-20 17:09 | disposition home or self-care (01) ==
LOC: EC 13:44
DX: R07.9 Chest pain, unspecified (principal); R11.0 Nausea; R10.10 Upper abdominal pain, unspecified; R06.02 Shortness of breath; R51 Headache; I25.119 Atherosclerotic heart disease of native coronary artery with unspecified angina pectoris; J44.9 Chronic obstructive pulmonary disease, unspecified; E78.5 Hyperlipidemia, unspecified; I10 Essential (primary) hypertension; Z79.82 Long term (current) use of aspirin; Z79.51 Long term (current) use of inhaled steroids; Z79.899 Other long term (current) drug therapy; Z88.6 Allergy status to analgesic agent; Z86.718 Personal history of other venous thrombosis and embolism; Z95.5 Presence of coronary angioplasty implant and graft; Z87.891 Personal history of nicotine dependence
CPT/HCPCS: 36415; 71046; 80053; 83690; 83735; 84484; 85025; 93005; 99285

== ENCOUNTER 2019-07-24 14:55 | Emergency (ER) | payer MEDICARE ==
[2019-07-24 15:00] VITALS: BP 154/115; PULSE 95; RESP 18; TEMP 96.3
[2019-07-24] MEDS ORDERED: METOCLOPRAMIDE 5 MG/ML 2 ML VIAL IVP STA (15:44)
[2019-07-24] MEDS ORDERED: cloNIDine 0.1 MG/24HR PATCH TRANSDERM STA (15:44)
[2019-07-24] MEDS ORDERED: SODIUM CHLORIDE 0.9% 1,000 ML IV STA (15:45)
[2019-07-24] MEDS ORDERED: MORPHINE SULFATE 4 MG/ML SYRINGE IVP STA (15:46)
[2019-07-24] MEDS ORDERED: ONDANSETRON ODT 4 MG TAB PO STA (16:11)
[2019-07-24] MEDS ORDERED: MORPHINE SULFATE 4 MG/ML SYRINGE IM STA (16:12)
--- NOTE | 2019-07-24 16:18 | ED ---
General Adult HPI - General Chief complaint: Recheck/Abnormal Lab/Rx Stated complaint: Withdrawls Time Seen by Provider: 07/24/19 15:07 Source: patient Mode of arrival: ambulatory Limitations: no limitations - History of Present Illness Initial comments: Patient is 63-year-old male presenting to emergency Department with a chief complaint of going through withdrawals. She reports he has a contract with a pain management clinic. Patient reports he is prescribed 90 days worth of Percocets. Patient reports his next appointment is on Thursday. Patient reports he has finished taking the medication 2 days ago. Patient states that he is going through withdrawal with rhinorrhea, difficulty sleeping, nausea, vomiting and diarrhea. Patient reports feeling generalized achiness. Patient states he went through withdrawal previously and this feels very similar. Patient denies taking any medication to alleviate the symptoms. - Related Data Home Medications Medication Instructions Recorded Confirmed Aspirin 81 mg PO DAILY 01/21/17 07/20/19 Fluticasone Nasal [place] [Flonase 1 spray EA NOSTRIL BID 04/20/17 07/20/19 Nasal [place]] Morphine Sulfate ER [Ms Contin] 30 mg PO TID 10/10/17 07/20/19 tiZANidine [Zanaflex] 4 mg PO TID 02/26/18 07/20/19 oxyCODONE HCL [oxyCODONE HCL (IR)] 15 mg PO TID PRN 08/01/18 07/20/19 Prasugrel [Effient] 10 mg PO DAILY 07/02/19 07/20/19 Previous Rx's Medication Instructions Recorded Atorvastatin [Lipitor] 80 mg PO HS #30 tab 10/12/17 Carvedilol [Coreg*] 12.5 mg PO BID-W/MEALS #60 tab 02/08/19 cloNIDine HCL [Catapres] 0.1 mg PO BID #60 tab 02/08/19 Ezetimibe [Zetia] 10 mg PO DAILY #30 tab 05/24/19 Famotidine [Pepcid] 20 mg PO DAILY #30 tablet 05/24/19 Lisinopril [Zestril] 40 mg PO DAILY #30 tablet 05/24/19 Ondansetron Odt [Zofran ODT] 4 mg PO Q8HR PRN #30 tab 05/24/19 amLODIPine [Norvasc] 5 mg PO BID #60 tab 05/24/19 Nitroglycerin Sl Tabs [Nitrostat] 0.4 mg SUBLINGUAL Q5M PRN #20 tab 07/02/19 Loperamide [Imodium] 2 mg PO ONCE #15 capsule 07/24/19 Ondansetron Odt [Zofran Odt] 4 mg PO Q8HR PRN #10 tab 07/24/19 Allergies Allergy/AdvReac Type Severity Reaction Status Date / Time ibuprofen [From Motrin] Allergy Rash/Hives Verified 07/24/19 15:00 ketorolac tromethamine Allergy Rash/Hives Verified 07/24/19 15:00 [From Toradol] Review of Systems ROS Statement: Those systems with pertinent positive or pertinent negative responses have been documented in the HPI. ROS Other: All systems not noted in ROS Statement are negative. Past Medical History Past Medical History: Coronary Artery Disease (CAD), Chest Pain / Angina, COPD, Deep Vein Thrombosis (DVT), GERD/Reflux, Hyperlipidemia, Hypertension, Osteoarthritis (OA), Thyroid Disorder Additional Past Medical History / Comment(s): Occasional palpitations, gastritis, small hiatal hernia, diverticular dx, pt states years ago he had PUD, chronic low back pain, chronic pain syndrome, migraines, DVT L arm, numbness/tingling bilateral lower legs, bilateral past R hand fracture, arthritis multiple joints, hyperthyroid, sinus problems. History of Any Multi-Drug Resistant Organisms: None Reported Past Surgical History: Back Surgery, Cholecystectomy, Heart Catheterization With Stent, Orthopedic Surgery Additional Past Surgical History / Comment(s): EGDs/colonoscopies, multiple low back surgeries, bilateral arm and bilateral thigh surgeries for brown recluse spider bites with infection, morphine pain pump insertion and removal due to infection, PCI with stents, L rotator cuff repair, L knee arthroscopy, cervical fusion/cage, R cataract removal. Past Anesthesia/Blood Transfusion Reactions: No Reported Reaction Additional Past Anesthesia/Blood Transfusion Reaction / Comment(s): Pt states after cervical fusion he "" in the recovery room but does not know cause- he was"gone for 8 minutes" and states he was resusitated. Pt received blood after back surgery and tolerated it well. Date of Last Stent Placement:: 10/12/17 Past Psychological History: No Psychological Hx Reported Smoking Status: Former smoker Past Alcohol Use History: None Reported Past Drug Use History: None Reported - Past Family History Father Family Medical History: No Reported History Additional Family Medical History / Comment(s): Father had back problems. He lived to be 82 yrs old. Mother Family Medical History: Hypertension, Myocardial Infarction ([place]) Additional Family Medical History / Comment(s): Mother of a [place] at the age of 55yrs. Brother(s) Family Medical History: Cancer, COPD Additional Family Medical History / Comment(s): Leukemia General Exam Limitations: no limitations General appearance: alert, in no apparent distress, anxious Head exam: Present: atraumatic, normocephalic, normal inspection Eye exam: Present: normal appearance, PERRL, EOMI Pupils: Present: normal accommodation ENT exam: Present: normal exam, normal oropharynx, mucous membranes dry, TM's normal bilaterally, normal external ear exam Neck exam: Present: normal inspection, full ROM Respiratory exam: Present: normal lung sounds bilaterally Cardiovascular Exam: Present: regular rate, normal rhythm, normal heart sounds GI/Abdominal exam: Present: soft. Absent: tenderness, guarding Extremities exam: Present: normal inspection, full ROM Back exam: Present: normal inspection, full ROM Neurological exam: Present: alert, oriented X3 Psychiatric exam: Present: normal affect, normal mood, anxious Skin exam: Present: warm, intact, normal color Course Vital Signs 07/24/19 14:57 Temperature 96.3 F L Pulse Rate 95 Respiratory 18 Rate Blood Pressure 154/115 O2 Sat by Pulse 100 Oximetry Medical Decision Making - Medical Decision Making patient is 63-year-old male presenting to emergency Department with chief complaint of going through withdrawals. Patient has had similar episodes of withdrawals and states his repaired much the same. Patient reports nausea, vomiting, diarrhea [place]very achiness, rhinorrhea. Patient does appear to be dehydr ated. I suggested the patient have 1 L of fluids but he declined because he is a hard poke. Patient was given 4 mg of morphine IV, clonidine patch and oral Zofran. Patient will be discharged with Zofran and Imodium. Patient states that he is going to see his pain management doctor on Thursday. Patient advised to alternate between Tylenol and ibuprofen for pain control. Strict return parameters were thoroughly discussed with patient was understanding and agreeable. Case discussed with physician. Disposition Clinical Impression: Narcotic withdrawal Disposition: HOME SELF-CARE Condition: Stable Instructions (If sedation given, give patient instructions): Opioid Withdrawal (ED), Safe Disposal of Narcotics (ED) Additional Instructions: Please take prescribed medication as directed. Please follow primary care. Please return to emergency department if symptoms worsen. Prescriptions: Loperamide [Imodium] 2 mg PO ONCE #15 capsule Ondansetron Odt [Zofran Odt] 4 mg PO Q8HR PRN #10 tab PRN Reason: Nausea Is patient prescribed a controlled substance at d/c from ED?: No Referrals: None,Stated [Primary Care Provider] - 1-2 days Time of Disposition: 16:26
== END 2019-07-24 16:40 | disposition home or self-care (01) ==
LOC: EC 14:55
DX: F11.23 Opioid dependence with withdrawal (principal); I25.119 Atherosclerotic heart disease of native coronary artery with unspecified angina pectoris; G89.4 Chronic pain syndrome; M19.90 Unspecified osteoarthritis, unspecified site; Z79.899 Other long term (current) drug therapy; Z79.82 Long term (current) use of aspirin; Z88.6 Allergy status to analgesic agent; Z87.891 Personal history of nicotine dependence; Z95.5 Presence of coronary angioplasty implant and graft
CPT/HCPCS: 99283; 96372; J2270

== ENCOUNTER 2019-07-30 13:44 | Emergency (ER) | payer MEDICARE ==
[2019-07-30 13:58] VITALS: TEMP 97.6
[2019-07-30] MEDS ORDERED: DOCUSATE 283 MG/5 ML ENEMA RECTAL STA (14:45)
[2019-07-30] MEDS ORDERED: MAGNESIUM CITRATE 296 ML BOTTLE PO ONE (14:45)
[2019-07-30] MEDS ORDERED: MAGNESIUM HYDROXIDE 2,400 MG/10 ML CUP PO STA (14:45)
--- NOTE | 2019-07-30 14:54 | ED ---
Abdominal Pain HPI - General Chief Complaint: Abdominal Pain Stated Complaint: Constipation Time Seen by Provider: 07/30/19 13:54 Source: patient, RN notes reviewed Mode of arrival: ambulatory Limitations: no limitations - History of Present Illness Initial Comments: 63-year-old male presents emergency Department chief complaint constipation times one week. Patient states he tried 1 dose of MiraLAX and one Fleet enema. Patient states he had some liquid stool. Patient states she is passing gas and he states it feels crampy. No fevers or chills denies any nausea vomiting diarrhea, or hematochezia and no dysuria no hematuria. Patient denies any prior bowel obstructions. Patient does take chronic pain medications. - Related Data Home Medications Medication Instructions Recorded Confirmed Aspirin 81 mg PO DAILY 01/21/17 07/30/19 Fluticasone Nasal [place] [Flonase 1 spray EA NOSTRIL BID 04/20/17 07/30/19 Nasal [place]] Morphine Sulfate ER [Ms Contin] 30 mg PO TID 10/10/17 07/30/19 tiZANidine [Zanaflex] 4 mg PO TID 02/26/18 07/30/19 Prasugrel [Effient] 10 mg PO DAILY 07/02/19 07/30/19 HYDROmorphone [Dilaudid] 1 mg PO TID PRN 07/30/19 07/30/19 Loperamide [Imodium] 2 - 4 mg PO QID PRN 07/30/19 07/30/19 Previous Rx's Medication Instructions Recorded Atorvastatin [Lipitor] 80 mg PO HS #30 tab 10/12/17 Carvedilol [Coreg*] 12.5 mg PO BID-W/MEALS #60 tab 02/08/19 cloNIDine HCL [Catapres] 0.1 mg PO BID #60 tab 02/08/19 Ezetimibe [Zetia] 10 mg PO DAILY #30 tab 05/24/19 Famotidine [Pepcid] 20 mg PO DAILY #30 tablet 05/24/19 Lisinopril [Zestril] 40 mg PO DAILY #30 tablet 05/24/19 Ondansetron Odt [Zofran ODT] 4 mg PO Q8HR PRN #30 tab 05/24/19 amLODIPine [Norvasc] 5 mg PO BID #60 tab 05/24/19 Nitroglycerin Sl Tabs [Nitrostat] 0.4 mg SUBLINGUAL Q5M PRN #20 tab 07/02/19 Allergies Allergy/AdvReac Type Severity Reaction Status Date / Time ibuprofen [From Motrin] Allergy Rash/Hives Verified 07/30/19 14:19 ketorolac tromethamine Allergy Rash/Hives Verified 07/30/19 14:19 [From Toradol] Review of Systems ROS Statement: Those systems with pertinent positive or pertinent negative responses have been documented in the HPI. ROS Other: All systems not noted in ROS Statement are negative. Past Medical History Past Medical History: Coronary Artery Disease (CAD), Chest Pain / Angina, COPD, Deep Vein Thrombosis (DVT), GERD/Reflux, Hyperlipidemia, Hypertension, Osteoarthritis (OA), Thyroid Disorder Additional Past Medical History / Comment(s): Occasional palpitations, gastritis, small hiatal hernia, diverticular dx, pt states years ago he had PUD, chronic low back pain, chronic pain syndrome, migraines, DVT L arm, numbness/tingling bilateral lower legs, bilateral past R hand fracture, arthritis multiple joints, hyperthyroid, sinus problems. History of Any Multi-Drug Resistant Organisms: None Reported Past Surgical History: Back Surgery, Cholecystectomy, Heart Catheterization With Stent, Orthopedic Surgery Additional Past Surgical History / Comment(s): EGDs/colonoscopies, multiple low back surgeries, bilateral arm and bilateral thigh surgeries for brown recluse spider bites with infection, morphine pain pump insertion and removal due to infection, PCI with stents, L rotator cuff repair, L knee arthroscopy, cervical fusion/cage, R cataract removal. Past Anesthesia/Blood Transfusion Reactions: No Reported Reaction Additional Past Anesthesia/Blood Transfusion Reaction / Comment(s): Pt states after cervical fusion he "" in the recovery room but does not know cause- he was"gone for 8 minutes" and states he was resusitated. Pt received blood after back surgery and tolerated it well. Date of Last Stent Placement:: 10/12/17 Past Psychological History: No Psychological Hx Reported Smoking Status: Former smoker Past Alcohol Use History: None Reported Past Drug Use History: None Reported - Past Family History Father Family Medical History: No Reported History Additional Family Medical History / Comment(s): Father had back problems. He lived to be 82 yrs old. Mother Family Medical History: Hypertension, Myocardial Infarction ([place]) Additional Family Medical History / Comment(s): Mother of a [place] at the age of 55yrs. Brother(s) Family Medical History: Cancer, COPD Additional Family Medical History / Comment(s): Leukemia General Exam Limitations: no limitations General appearance: alert, in no apparent distress Head exam: Present: atraumatic, normocephalic, normal inspection Respiratory exam: Present: normal lung sounds bilaterally. Absent: respiratory distress, wheezes, rales, rhonchi, stridor Cardiovascular Exam: Present: regular rate, normal rhythm, normal heart sounds. Absent: systolic murmur, diastolic murmur, rubs, gallop, clicks GI/Abdominal exam: Present: soft, normal bowel sounds. Absent: distended, tenderness, guarding, rebound, rigid Back exam: Absent: CVA tenderness (R), CVA tenderness (L) Skin exam: Present: warm, dry, intact, normal color. Absent: rash Course Vital Signs 07/30/19 13:53 Temperature 97.6 F Pulse Rate 80 Respiratory 15 Rate Blood Pressure 136/88 O2 Sat by Pulse 98 Oximetry Medical Decision Making - Medical Decision Making 63-year-old male presents emergency Department chief complaint of constipation. Patient has evidence constipation and KUB no obstruction. Patient be discharged with magnesium citrate. Patient was given milk of molasses and Therevac in emergency department. Disposition Clinical Impression: Constipation Disposition: HOME SELF-CARE Condition: Stable Instructions (If sedation given, give patient instructions): Constipation (DC) Additional Instructions: Please return to the Emergency Department if symptoms worsen or any other concerns. Is patient prescribed a controlled substance at d/c from ED?: No Referrals: None,Stated [Primary Care Provider] - 1-2 days Time of Disposition: 14:54
--- NOTE | 2019-07-30 14:58 | XR ---
EXAMINATION TYPE: XR KUB DATE OF EXAM: 07/30/2019 COMPARISON: 12/01/2018 HISTORY: Left upper quadrant pain TECHNIQUE: 2 views upright FINDINGS: There is no sign of intestinal obstruction or pneumoperitoneum. Fecal pattern is normal. There is no evidence of a mass. There are clips from cholecystectomy. There is the level lumbar spine posterior fusion surgery. There is no pathologic dilatation over the kidneys. Lung bases appear heidy r. IMPRESSION: Nonacute abdomen. No change.
[2019-07-30 15:07] VITALS: BP 130/80; PULSE 801; RESP 14
== END 2019-07-30 15:02 | disposition home or self-care (01) ==
LOC: EC 13:44
DX: K59.00 Constipation, unspecified (principal); I25.119 Atherosclerotic heart disease of native coronary artery with unspecified angina pectoris; J44.9 Chronic obstructive pulmonary disease, unspecified; I10 Essential (primary) hypertension; Z79.82 Long term (current) use of aspirin; Z79.51 Long term (current) use of inhaled steroids; Z79.899 Other long term (current) drug therapy; Z88.5 Allergy status to narcotic agent; Z88.6 Allergy status to analgesic agent; Z87.891 Personal history of nicotine dependence; Z86.718 Personal history of other venous thrombosis and embolism; Z95.5 Presence of coronary angioplasty implant and graft; Z90.49 Acquired absence of other specified parts of digestive tract
CPT/HCPCS: 74018; 99284

== ENCOUNTER 2019-08-20 17:34 | Observation (INO) | payer MEDICARE ==
[2019-08-20] MEDS ORDERED: IPRATROPIUM-ALBUTEROL 3 ML NEB INHALATION STA (17:54)
[2019-08-20] MEDS ORDERED: HYDROmorphone 0.5 MG/0.5 ML SYRINGE IVP STA (17:54)
--- NOTE | 2019-08-20 17:54 | ED ---
Chest Pain HPI - General Chief Complaint: Chest Pain Stated Complaint: chest pain Time Seen by Provider: 08/20/19 17:43 Source: patient, RN notes reviewed, old records reviewed Mode of arrival: wheelchair Limitations: no limitations - History of Present Illness Initial Comments: This is a 63-year-old male the ER for evaluation patient's well-known to our facility coming back today for chest pain. Patient has history of CAD COPD DVT. Patient coming of chest pain shortness of breath that started at 1:00 today. Patient has persistent chest pain shortness breath currently. No fevers. No cough. No recent travel history or known sick contacts. Patient is taking medication as prescribed MD Complaint: chest pain Onset: during rest Pain Location: substernal, left chest Pain Radiation: none Severity: mild Severity scale (1-10): 4 Quality: tightness Consistency: constant Improves With: nothing Worsens With: exertion, inspiration Anginal Symptoms: dyspnea Other Symptoms: palpitations Treatments Prior to Arrival: none - Related Data Home Medications Medication Instructions Recorded Confirmed Aspirin 81 mg PO DAILY 01/21/17 08/20/19 Fluticasone Nasal [place] [Flonase 1 spray EA NOSTRIL BID 04/20/17 08/20/19 Nasal [place]] Morphine Sulfate ER [Ms Contin] 30 mg PO TID 10/10/17 08/20/19 tiZANidine [Zanaflex] 4 mg PO TID 02/26/18 08/20/19 Prasugrel [Effient] 10 mg PO DAILY 07/02/19 08/20/19 HYDROmorphone [Dilaudid] 1 mg PO TID PRN 07/30/19 08/20/19 Loperamide [Imodium] 2 - 4 mg PO QID PRN 07/30/19 08/20/19 Previous Rx's Medication Instructions Recorded Atorvastatin [Lipitor] 80 mg PO HS #30 tab 10/12/17 Carvedilol [Coreg*] 12.5 mg PO BID-W/MEALS #60 tab 02/08/19 cloNIDine HCL [Catapres] 0.1 mg PO BID #60 tab 02/08/19 Ezetimibe [Zetia] 10 mg PO DAILY #30 tab 05/24/19 Famotidine [Pepcid] 20 mg PO DAILY #30 tablet 05/24/19 Lisinopril [Zestril] 40 mg PO DAILY #30 tablet 05/24/19 Ondansetron Odt [Zofran ODT] 4 mg PO Q8HR PRN #30 tab 05/24/19 amLODIPine [Norvasc] 5 mg PO BID #60 tab 05/24/19 Nitroglycerin Sl Tabs [Nitrostat] 0.4 mg SUBLINGUAL Q5M PRN #20 tab 07/02/19 Lisinopril 40 mg PO DAILY #14 tab 07/30/19 Allergies Allergy/AdvReac Type Severity Reaction Status Date / Time ibuprofen [From Motrin] Allergy Rash/Hives Verified 08/20/19 17:59 ketorolac tromethamine Allergy Rash/Hives Verified 08/20/19 17:59 [From Toradol] Review of Systems ROS Statement: Those systems with pertinent positive or pertinent negative responses have been documented in the HPI. ROS Other: All systems not noted in ROS Statement are negative. EKG Findings - EKG Comments: EKG Findings:: EKG shows normal sinus rhythm rate of 80, [place] 136, QRS 80, QTC 438 Past Medical History Past Medical History: Coronary Artery Disease (CAD), Chest Pain / Angina, COPD, Deep Vein Thrombosis (DVT), GERD/Reflux, Hyperlipidemia, Hypertension, Osteoarthritis (OA), Thyroid Disorder Additional Past Medical History / Comment(s): Occasional palpitations, gastritis, small hiatal hernia, diverticular dx, pt states years ago he had PUD, chronic low back pain, chronic pain syndrome, migraines, DVT L arm, numbness/tingling bilateral lower legs, bilateral past R hand fracture, arthritis multiple joints, hyperthyroid, sinus problems. History of Any Multi-Drug Resistant Organisms: None Reported Past Surgical History: Back Surgery, Cholecystectomy, Heart Catheterization With Stent, Orthopedic Surgery Additional Past Surgical History / Comment(s): EGDs/colonoscopies, multiple low back surgeries, bilateral arm and bilateral thigh surgeries for brown recluse spider bites with infection, morphine pain pump insertion and removal due to infection, PCI with stents, L rotator cuff repair, L knee arthroscopy, cervical fusion/cage, R cataract removal. Past Anesthesia/Blood Transfusion Reactions: No Reported Reaction Additional Past Anesthesia/Blood Transfusion Reaction / Comment(s): Pt states after cervical fusion he "" in the recovery room but does not know cause- he was"gone for 8 minutes" and states he was resusitated. Pt received blood after back surgery and tolerated it well. Date of Last Stent Placement:: 10/12/17 Past Psychological History: No Psychological Hx Reported Smoking Status: Former smoker Past Alcohol Use History: None Reported Past Drug Use History: None Reported - Past Family History Father Family Medical History: No Reported History Additional Family Medical History / Comment(s): Father had back problems. He lived to be 82 yrs old. Mother Family Medical History: Hypertension, Myocardial Infarction ([place]) Additional Family Medical History / Comment(s): Mother of a [place] at the age of 55yrs. Brother(s) Family Medical History: Cancer, COPD Additional Family Medical History / Comment(s): Leukemia General Exam Limitations: no limitations General appearance: alert, in no apparent distress Head exam: Present: atraumatic, normocephalic, normal inspection Eye exam: Present: normal appearance, EOMI. Absent: scleral icterus, conjunctival injection, periorbital swelling ENT exam: Present: normal exam, mucous membranes moist Neck exam: Present: normal inspection. Absent: tenderness, meningismus, lymphadenopathy Respiratory exam: Present: normal lung sounds bilaterally. Absent: respiratory distress, wheezes, rales, rhonchi, stridor Cardiovascular Exam: Present: regular rate, normal rhythm, normal heart sounds. Absent: systolic murmur, diastolic murmur, rubs, gallop, clicks GI/Abdominal exam: Present: soft, normal bowel sounds. Absent: distended, tenderness, guarding, rebound, rigid Extremities exam: Present: normal inspection, full ROM, normal capillary refill. Absent: tenderness, pedal edema, joint swelling, calf tenderness Back exam: Present: normal inspection Neurological exam: Present: alert, oriented X3, CN II-XII intact Psychiatric exam: Present: normal affect, normal mood Skin exam: Present: warm, dry, intact, normal color. 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 ] Respiratory 18 18 Rate Blood Pressure 148/95 150/93 O2 Sat by Pulse 100 100 Oximetry 08/20/19 08/20/19 18:27 18:35 Temperature Pulse Rate 79 80 Pulse Rate [ Flight Kitchen Manager ] Respiratory Rate Blood Pressure O2 Sat by Pulse Oximetry - Reevaluation(s) Reevaluation #1: 08/20/19 17:54 Medical records reviewed Reevaluation #2: 08/20/19 19:10 Patient still complaining of chest pain severe left-sided chest pain Chest Pain MDM - MDM 63 male the ER for evaluation patient be admitted for cardiac observation history of cardiac disease patient does not feel comfortable going home states his chest pain is worsened normal Disposition Clinical Impression: Chest pain, COPD (chronic obstructive pulmonary disease) Disposition: ADMITTED IP TO THIS HOSP Condition: Undetermined Instructions (If sedation given, give patient instructions): Chest Pain (ED) Referrals: None,Stated [Primary Care Provider] - 1-2 days
[2019-08-20 18:04] LABS: Basophils % (A) 1 %; Eosinophils # (A) 0.1 k/uL (0-0.7); Eosinophils % (A) 2 %; HCT 40.2 % (39.0-53.0); HGB 13.1 gm/dL (13.0-17.5); Lymphocytes # (A) 1.1 k/uL (1.0-4.8); Lymphocytes % (A) 30 %; MCH 28.7 pg (25.0-35.0); MCHC 32.6 g/dL (31.0-37.0); MCV 88.2 fL (80.0-100.0); Mean Platelet Volume 5.1; Monocytes # (A) 0.2 k/uL (0-1.0); Monocytes % (A) 6 %; Neutrophils # (A) 2.2 k/uL (1.3-7.7); Neutrophils % (A) 60 %; Platelet Count 471 k/uL (150-450); RBC 4.56 m/uL (4.30-5.90); RDW 14.2 % (11.5-15.5); WBC 3.7 k/uL (3.8-10.6)
[2019-08-20 18:18] LABS: ALT 7 U/L (21-72); AST 17 U/L (17-59); African American GFR (CKD) >90 (>60 ml/min/1.73 sqM); Albumin 4.7 g/dL (3.5-5.0); Alkaline Phosphatase 71 U/L (38-126); Anion Gap 12 mmol/L; Blood Urea Nitrogen 6 mg/dL (9-20); Calcium 10.1 mg/dL (8.4-10.2); Carbon Dioxide 24 mmol/L (22-30); Chloride 104 mmol/L (98-107); Glucose 107 mg/dL (74-99); Magnesium 1.9 mg/dL (1.6-2.3); Potassium 4.5 mmol/L (3.5-5.1); Sodium 140 mmol/L (137-145); Total Bilirubin 0.6 mg/dL (0.2-1.3); Total Protein 7.9 g/dL (6.3-8.2)
[2019-08-20 18:20] LABS: Partial Thromboplastin Time 25.1 sec (22.0-30.0); Prothrombin Time 10.5 sec (9.0-12.0)
--- NOTE | 2019-08-20 18:26 | XR ---
EXAMINATION TYPE: XR chest 2V DATE OF EXAM: 08/20/2019 COMPARISON: 07/20/2019 INDICATION: Chest pain TECHNIQUE: Frontal and lateral views of the chest are obtained. FINDINGS: The heart size is normal. The pulmonary vasculature is normal. The lungs are clear. Anterior cervical fusion is evident IMPRESSION: 1. No acute pulmonary process.
[2019-08-20] MEDS: SODIUM CHLORIDE 0.9% 1,000 ML IV SCH (19:16)
[2019-08-20] MEDS ORDERED: NITROGLYCERIN SL TABS 0.4 MG TAB SUBLINGUAL PRN (21:43)
[2019-08-20] MEDS ORDERED: ONDANSETRON ODT 4 MG TAB PO PRN (21:43)
[2019-08-20] MEDS ORDERED: LISINOPRIL 40 MG PO SCH (22:00)
[2019-08-20] MEDS: MORPHINE SULFATE 4 MG/ML SYRINGE IV PRN (22:26)
[2019-08-20] MEDS: CARVEDILOL 12.5 MG TAB PO SCH (22:26)
[2019-08-20] MEDS: amLODIPine 5 MG TAB PO SCH (22:26)
[2019-08-20] MEDS: ATORVASTATIN 80 MG TAB PO SCH (22:26)
[2019-08-20] MEDS: cloNIDine HCL 0.1 MG TAB PO SCH (22:26)
[2019-08-20] MEDS: tiZANidine 4 MG TAB PO SCH (22:26)
[2019-08-21] MEDS: MORPHINE SULFATE 4 MG/ML SYRINGE IV PRN ×6 (02:30→23:17)
[2019-08-21] MEDS: CARVEDILOL 12.5 MG TAB PO SCH ×2 (06:43→17:29)
[2019-08-21] MEDS: IPRATROPIUM-ALBUTEROL 3 ML NEB INHALATION PRN ×4 (07:21→20:11)
[2019-08-21 07:23] LABS: Cholesterol 155 mg/dL (<200); HDL Cholesterol 49 mg/dL (40-60); LDL Cholesterol,Calculated 86 mg/dL (0-99); Triglycerides 102 mg/dL (<150)
[2019-08-21] MEDS: PRASUGREL 10 MG TAB PO SCH (08:44)
[2019-08-21] MEDS: cloNIDine HCL 0.1 MG TAB PO SCH ×2 (08:44→20:06)
[2019-08-21] MEDS: LISINOPRIL 20 MG TAB PO SCH (08:44)
[2019-08-21] MEDS: tiZANidine 4 MG TAB PO SCH ×3 (08:44→20:06)
[2019-08-21] MEDS: ASPIRIN 81 MG PO SCH (08:44)
[2019-08-21] MEDS: amLODIPine 5 MG TAB PO SCH ×2 (08:44→20:06)
[2019-08-21] MEDS: EZETIMIBE 10 MG TAB PO SCH (08:44)
[2019-08-21] MEDS: FAMOTIDINE 20 MG TAB PO SCH (08:44)
[2019-08-21] MEDS: FLUTICASONE 50MCG/SPRAY NASAL 16GM EA NOSTRIL SCH ×2 (08:44→20:06)
--- NOTE | 2019-08-21 08:58 | P.CRDCN ---
History of Present Illness Consult date: 08/21/19 Requesting physician: Nelson Almonte Reason for Consult (text): chest pain Chief complaint: chest pain, shortness of breath History of present illness: This 63-year-old gentleman who follows with Dr. BASILIA Go in the office. He has a known history of COPD, hypertension, CAD and prior stenting the LAD and diagonal branch. Presented to the hospital with complaints of chest discomfort and shortness of breath. He was here last month for similar complaints. Patient last heart catheterization was performed in April 2019 89 presented to the hospital tested discomfort and at that point her catheterization revealed mild to moderate nonobstructive disease involving the diagonal branch with jc nt stents in the diagonal branch and LAD. He underwent echocardiogram during his last admission which showed a normal LV systolic function with no significant valvular abnormalities. He also underwent CT of the chest during his previous admission that showed no diagnostic evidence of acute central pulmonary embolism with wall thickening or eccentric low density involving a left lower lobe pulmonary artery branch, location suggests this is more likely indicative of a small remote or chronic pulmonary embolism, correlate clinically for confirmation to exclude acute embolism, correlate for thyromegaly, hypodensities in the liver too small to characterize. This time he again was in his usual state of health until yesterday when he was sitting at home around 1 PM watching a football game and suddenly began experiencing intermittent chest heaviness, squeezing and sharp stabbing sensation lasting about 5 minutes at a time as well as left face, neck and arm discomfort that has been constant. He had associated symptoms of nausea and vomiting. He's also been complaining of worsening dyspnea on exertion and on and off lower extremity edema that has been relieved with elevation of his lower extremities. His blood pressure has been elevated at home with a systolic pressure as high as 200 mmHg. EKG on admission showed sinus rhythm without any ischemic ST-T wave abnormalities. Cardiac enzymes have been negative 3. NT proBNP is normal at 17. Chest x-ray shows no acute cardiopulmonary process. The pressure has been elevated with a systolic pressure of 140 to 160s and diastolic pressure in the 90s. The patient is known to have chronic chest discomfort with multiple hospital admissions with complaints of the same. The patella my examination, patient is resting comfortably in bed. He continues to have the left neck, face and arm discomfort which he seems to localize mostly to the shoulder. This has been somewhat relieved with the use of heat. He also complains of some tenderness upon palpation in the epigastric area and verbalizes having been told he has a hiatal hernia and also had an ulcer many years ago. Past Medical History Past Medical History: Coronary Artery Disease (CAD), Chest Pain / Angina, COPD, Deep Vein Thrombosis (DVT), GERD/Reflux, Hyperlipidemia, Hypertension, Osteoarthritis (OA), Thyroid Disorder Additional Past Medical History / Comment(s): Occasional palpitations, gastritis, small hiatal hernia, diverticular dx, pt states years ago he had PUD, chronic low back pain, chronic pain syndrome, migraines, DVT L arm, numbness/tingling bilateral lower legs, bilateral past R hand fracture, arthritis multiple joints, hyperthyroid, sinus problems. History of Any Multi-Drug Resistant Organisms: None Reported Past Surgical History: Back Surgery, Cholecystectomy, Heart Catheterization With Stent, Orthopedic Surgery Additional Past Surgical History / Comment(s): EGDs/colonoscopies, multiple low back surgeries, bilateral arm and bilateral thigh surgeries for brown recluse spider bites with infection, morphine pain pump insertion and removal due to infection, PCI with stents, L rotator cuff repair, L knee arthroscopy, cervical fusion/cage, R cataract removal. Past Anesthesia/Blood Transfusion Reactions: No Reported Reaction Additional Past Anesthesia/Blood Transfusion Reaction / Comment(s): Pt states after cervical fusion he "" in the recovery room but does not know cause- he was"gone for 8 minutes" and states he was resusitated. Pt received blood after back surgery and tolerated it well. Date of Last Stent Placement:: 10/12/17 Past Psychological History: No Psychological Hx Reported Additional Psychological History / Comment(s): He uses a walker and cane to am bulate. Smoking Status: Former smoker Past Alcohol Use History: None Reported Additional Past Alcohol Use History / Comment(s): Pt started smoking in 1973 and quit in 1984 Past Drug Use History: None Reported - Past Family History Father Family Medical History: No Reported History Additional Family Medical History / Comment(s): Father had back problems. He lived to be 82 yrs old. Mother Family Medical History: Hypertension, Myocardial Infarction ([place]) Additional Family Medical History / Comment(s): Mother of a [place] at the age of 55yrs. Brother(s) Family Medical History: Cancer, COPD Additional Family Medical History / Comment(s): Leukemia Medications and Allergies Home Medications Medication Instructions Recorded Confirmed Type Aspirin 81 mg PO DAILY 01/21/17 08/20/19 History Fluticasone Nasal [place] [Flonase 1 spray EA NOSTRIL BID 04/20/17 08/20/19 History Nasal [place]] Morphine Sulfate ER [Ms Contin] 30 mg PO TID 10/10/17 08/20/19 History Atorvastatin [Lipitor] 80 mg PO HS #30 tab 10/12/17 08/20/19 Rx tiZANidine [Zanaflex] 4 mg PO TID 02/26/18 08/20/19 History Carvedilol [Coreg*] 12.5 mg PO BID-W/MEALS #60 tab 02/08/19 08/20/19 Rx cloNIDine HCL [Catapres] 0.1 mg PO BID #60 tab 02/08/19 08/20/19 Rx Ezetimibe [Zetia] 10 mg PO DAILY #30 tab 05/24/19 08/20/19 Rx Famotidine [Pepcid] 20 mg PO DAILY #30 tablet 05/24/19 08/20/19 Rx Ondansetron Odt [Zofran ODT] 4 mg PO Q8HR PRN #30 tab 05/24/19 08/20/19 Rx amLODIPine [Norvasc] 5 mg PO BID #60 tab 05/24/19 08/20/19 Rx Nitroglycerin Sl Tabs [Nitrostat] 0.4 mg SUBLINGUAL Q5M PRN #20 tab 07/02/19 08/20/19 Rx Prasugrel [Effient] 10 mg PO DAILY 07/02/19 08/20/19 History HYDROmorphone [Dilaudid] 1 mg PO TID PRN 07/30/19 08/20/19 History Lisinopril 40 mg PO DAILY #14 tab 07/30/19 08/20/19 Rx Loperamide [Imodium] 2 - 4 mg PO QID PRN 07/30/19 08/20/19 History Allergies Allergy/AdvReac Type Severity Reaction Status Date / Time ibuprofen [From Motrin] Allergy Rash/Hives Verified 08/20/19 17:59 ketorolac tromethamine Allergy Rash/Hives Verified 08/20/19 17:59 [From Toradol] Physical Exam Vitals: Vital Signs Temp Pulse Pulse Resp BP BP Pulse Ox 08/21/19 07:35 80 08/21/19 07:22 80 08/21/19 04:00 97.7 F 64 16 150/92 99 08/21/19 03:54 18 08/21/19 00:14 97.9 F 70 18 164/90 100 08/20/19 21:23 98.1 F 69 18 151/82 99 08/20/19 20:00 98.1 F 69 18 151/82 97 08/20/19 19:46 77 18 160/90 97 08/20/19 18:35 80 08/20/19 18:27 79 08/20/19 18:19 77 18 150/93 100 08/20/19 17:46 78 08/20/19 17:37 97.6 F 91 18 148/95 100 Intake and Output 08/20/19 08/21/19 08/21/19 22:59 06:59 14:59 Intake Total 150 Output Total 1000 Balance 150 -1000 Intake: Oral 150 Output: Urine 1000 Other: Voiding Method Toilet Toilet Urinal Urinal # Voids 1 Weight 79.379 kg 74.3 kg PHYSICAL EXAMINATION: HEENT: Head is atraumatic, normocephalic. Pupils equal, round. Neck is supple. There is no elevated jugular venous pressure. HEART EXAMINATION: Heart sounds regular, S1 and S2 normal. No murmur or gallop heard. CHEST EXAMINATION: Lungs are clear to auscultation and precussion. No chest wall tenderness is noted on palpation or with deep breathing. ABDOMEN: Soft, epigastric tenderness. Bowel sounds are heard. No organomegaly noted. EXTREMITIES: 2+ peripheral pulses with no evidence of peripheral edema and no calf tenderness noted. NEUROLOGIC patient is awake, alert and oriented x3. . Results 08/20/19 17:50 08/20/19 17:50 Cardiac Enzymes 08/20/19 08/20/19 08/21/19 Range/Units 17:50 17:50 00:08 AST 17 (17-59) U/L Troponin I <0.012 <0.012 (0.000-0.034) ng/mL 08/21/19 Range/Units 06:45 AST (17-59) U/L Troponin I <0.012 (0.000-0.034) ng/mL Coagulation 08/20/19 Range/Units 17:50 PT 10.5 (9.0-12.0) sec APTT 25.1 (22.0-30.0) sec Lipids 08/21/19 Range/Units 06:04 Triglycerides 102 (<150) mg/dL Cholesterol 155 (<200) mg/dL HDL Cholesterol 49 (40-60) mg/dL CBC 08/20/19 Range/Units 17:50 WBC 3.7 L (3.8-10.6) k/uL RBC 4.56 (4.30-5.90) m/uL Hgb 13.1 (13.0-17.5) gm/dL Hct 40.2 (39.0-53.0) % Plt Count 471 H (150-450) k/uL Comprehensive Metabolic Panel 08/20/19 Range/Units 17:50 Sodium 140 (137-145) mmol/L Potassium 4.5 (3.5-5.1) mmol/L Chloride 104 (98-107) mmol/L Carbon Dioxide 24 (22-30) mmol/L BUN 6 L (9-20) mg/dL Creatinine 0.61 L (0.66-1.25) mg/dL Glucose 107 H (74-99) mg/dL Calcium 10.1 (8.4-10.2) mg/dL AST 17 (17-59) U/L ALT 7 L (21-72) U/L Alkaline Phosphatase 71 (38-126) U/L Total Protein 7.9 (6.3-8.2) g/dL Albumin 4.7 (3.5-5.0) g/dL Current Medications Generic Name Dose Route Start Last Admin Trade Name Freq PRN Reason Stop Dose Admin Albuterol/Ipratropium 3 ml 08/20/19 19:08 08/21/19 07:21 Duoneb 0.5 Mg-3 Mg/3 Ml Soln INHALATION 3 ml RT-Q4H PRN Administration Shortness Of Breath Or Wheezing Amlodipine Besylate 5 mg 08/20/19 21:45 08/20/19 22:26 Norvasc PO 5 mg BID YESICA Administration Aspirin 81 mg 08/21/19 09:00 Aspirin PO DAILY [facility] Atorvastatin Calcium 80 mg 08/20/19 21:45 08/20/19 22:26 Lipitor PO 80 mg HS YESICA Administration Carvedilol 12.5 mg 08/20/19 21:45 08/21/19 06:43 Coreg PO 12.5 mg BID-W/MEALS YESICA Administration Clonidine 0.1 mg 08/20/19 21:45 08/20/19 22:26 Catapres PO 0.1 mg BID YESICA Administration Ezetimibe 10 mg 08/21/19 09:00 Zetia PO DAILY [facility] Famotidine 20 mg 08/21/19 09:00 Pepcid PO DAILY [facility] Fluticasone Propionate 1 spray 08/21/19 09:00 Flonase Nasal [place] EA NOSTRIL BID [facility] Sodium Chloride 1,000 mls @ 20 mls/hr 08/20/19 19:15 08/20/19 19:16 Saline 0.9% IV 20 mls/hr .Q24H YESICA Administration Lisinopril 40 mg 08/21/19 09:00 Zestril PO DAILY [facility] Morphine Sulfate 4 mg 08/20/19 19:08 08/21/19 06:43 Morphine Sulfate (Inj) IV 4 mg Q4HR PRN Administration Chest Pain Nitroglycerin 0.4 mg 08/20/19 21:43 Nitrostat SUBLINGUAL Q5M PRN Chest Pain Ondansetron HCl 4 mg 08/20/19 21:43 Zofran Odt PO Q8HR PRN Nausea Prasugrel 10 mg 08/21/19 09:00 Effient PO DAILY [facility] Tizanidine HCl 4 mg 08/20/19 22:00 08/20/19 22:26 Zanaflex PO 4 mg TID YESICA Administration Intake and Output 08/20/19 08/21/19 08/21/19 22:59 06:59 14:59 Intake Total 150 Output Total 1000 Balance 150 -1000 Intake: Oral 150 Output: Urine 1000 Other: Voiding Method Toilet Toilet Urinal Urinal # Voids 1 Weight 79.379 kg 74.3 kg 08/20/19 17:50 08/20/19 17:50 Assessment and Plan Assessment: #1 symptoms of chest discomfort as well as left neck, face and arm pain with negative troponins and no acute EKG changes #2 epigastric tenderness #3 CAD, status post stenting of the LAD and diagonal branch with recent cardiac catheterization showing nonobstructive CAD with a lesion in the diagonal branch of 30-40% and patent stents #4 hypertension, poorly controlled #5 hyperlipidemia Plan: From cardiology's perspective, further cardiac evaluation is needed at this time . We will add hydrochlorothiazide to optimize blood pressure control. He will follow-up in the office with Dr. BASILIA Go. 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 Patient was seen and examined.
[2019-08-21] MEDS: HYDROCHLOROTHIAZIDE 25 MG TAB PO SCH (11:57)
[2019-08-21] MEDS: HYDROmorphone 2 MG TAB PO PRN (12:32)
--- NOTE | 2019-08-21 17:09 | CT ---
EXAMINATION TYPE: CT angio chest DATE OF EXAM: 08/21/2019 4:36 PM COMPARISON: 07/02/2019 HISTORY: Chest pain CT DLP: mGycm Automated exposure control for dose reduction was used. CONTRAST: CTA scan of the thorax is performed , patient injected with mL of , pulmonary embolism protocol. . The contrast was Isovue 100 mL. There are 3-D post processed images. FINDINGS: The lungs are clear of consolidation. There is mild pleural thickening at the posterior right lung ba se. Heart size is normal. There is no pericardial effusion. There are no hilar masses. I see no filli ng defects in the pulmonary arteries. Thoracic aorta shows some atheromatous change. 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 Bony thorax is intact. IMPRESSION: NO EVIDENCE OF PULMONARY EMBOLISM. MILD PLEURAL THICKENING RIGHT POSTERIOR LUNG BASE. NO CHANGE AGUILAR RED TO LAST EXAM.
--- NOTE | 2019-08-21 17:24 | CT ---
EXAMINATION TYPE: CT abdomen pelvis wo con DATE OF EXAM: 08/21/2019 COMPARISON: 04/23/2019 HISTORY: Epigastric pain CT DLP: mGycm Automated exposure control for dose reduction was used. TECHNIQUE: Helical acquisition of images was performed from the lung bases through the pelvis. FINDINGS: There are small bilateral pleural effusions. Heart size is normal. There is no pericardial effusion. There are clips from cholecystectomy. Liver shows no focal defect. Stomach appears normal. There is n o evidence of pancreatic mass. There is no adrenal mass. Kidneys have normal size. There is no hydronephrosis. Ureters are not dilat ed. There is no retroperitoneal adenopathy. Bladder distends smoothly. There is no inguinal hernia. T here is tiny amount of free fluid in the pelvis. Appendix appears normal. There is no evidence of a bowel obstruction. There are a few sigmoid diverti cula without sign of diverticulitis. There is no evidence of free air. There is no mesenteric edema. There is multilevel mild spondylotic changes in the lumbar spine with posterior fusion surgery. The b amberly pelvis is intact. There is small umbilical hernia that contains fat. IMPRESSION: THERE IS SMALL RIGHT PLEURAL EFFUSION UNCHANGED. SIGMOID DIVERTICULOSIS WITHOUT DIVERTICULITIS. THERE IS TINY AMOUNT OF FREE FLUID IN THE PELVIS UNCHANGED.
--- NOTE | 2019-08-21 18:08 | HP ---
HISTORY AND PHYSICAL 63-year-old gentleman comes in the hospital, COPD, hypertension, coronary artery disease with prior stenting of LAD diagonal branch, chest pain, shortness of breath. States he is afraid to go home due to his chest discomfort. He is here for cardiac evaluation. Previous CT of the chest dialysis 4 months ago was normal versus pulmonary embolism. He is watching the football game sitting down. He has some nausea, vomiting, facial pain, pain up to his neck and shoulder. EKG on admission was negative. ProBNP was 17. Chest x-ray was negative. PAST MEDICAL HISTORY: Coronary artery disease, COPD, deep vein thrombosis, GERD, dyslipidemia, hypertension, osteoarthritis, hypothyroidism, hernia, diverticular disease, arthritis. PAST SURGICAL HISTORY: EGD, colonoscopy. He uses a walker or cane to ambulate. SOCIAL HISTORY: Former smoker. FAMILY HISTORY: Father with back problems. Mother myocardial infarction. MEDICATIONS: See list. PHYSICAL EXAMINATION: Vital signs: Temp 97, pulse 70s to 80s, respiratory 14-16, blood pressure 140s to 160s over 90s. Cardiovascular S1, S2. Lungs clear. GI soft. Hematology negative Homans. palpation epigastric. Hematology: Negative Homans. Vascular: Normal dorsalis pedis, posterior tibial and radial pulse. ASSESSMENT: 1. Epigastric tenderness, unclear etiology. 2. Atypical chest pain. 3. Coronary artery disease. 4. Hypertension. 5. Dyslipidemia. Cardiology cleared him. I am going to do a CT scan of the chest and abdomen to make sure there is no trouble with his chest or abdomen. MMODL / IJN: [id number] /
[2019-08-21] MEDS: ATORVASTATIN 80 MG TAB PO SCH (20:06)
[2019-08-21] MEDS: SODIUM CHLORIDE 0.9% 1,000 ML IV SCH (20:13)
[2019-08-22] MEDS: MORPHINE SULFATE 4 MG/ML SYRINGE IV PRN ×5 (03:17→20:44)
[2019-08-22] MEDS: HYDROmorphone 2 MG TAB PO PRN ×4 (05:32→19:50)
[2019-08-22] MEDS: CARVEDILOL 12.5 MG TAB PO SCH ×2 (06:29→16:36)
[2019-08-22] MEDS: tiZANidine 4 MG TAB PO SCH ×3 (08:30→20:44)
[2019-08-22] MEDS: amLODIPine 5 MG TAB PO SCH ×2 (08:30→19:51)
[2019-08-22] MEDS: LISINOPRIL 20 MG TAB PO SCH (08:30)
[2019-08-22] MEDS: PRASUGREL 10 MG TAB PO SCH (08:30)
[2019-08-22] MEDS: FAMOTIDINE 20 MG TAB PO SCH (08:30)
[2019-08-22] MEDS: HYDROCHLOROTHIAZIDE 25 MG TAB PO SCH (08:30)
[2019-08-22] MEDS: cloNIDine HCL 0.1 MG TAB PO SCH ×2 (08:30→19:51)
[2019-08-22] MEDS: ASPIRIN 81 MG PO SCH (08:30)
[2019-08-22] MEDS: EZETIMIBE 10 MG TAB PO SCH (08:31)
[2019-08-22] MEDS: FLUTICASONE 50MCG/SPRAY NASAL 16GM EA NOSTRIL SCH ×2 (08:31→20:50)
--- NOTE | 2019-08-22 12:49 | P.GSCN ---
History of Present Illness Consult date: 08/22/19 Reason for Consult: Epigastric pain History of present illness: The patient is a 63-year-old man who presented to the hospital with chest pain and shortness of breath. He is worked up for cardiac issues. He is also been complaining of epigastric pain it's been going on several months. He has some nausea and occasional vomiting. It bothers him more with eating. He relates a distant history of ulcer disease. He thinks occasionally he has some old dark blood in the stool. Denies weight loss. Past Medical History Past Medical History: Coronary Artery Disease (CAD), Chest Pain / Angina, COPD, Deep Vein Thrombosis (DVT), GERD/Reflux, Hyperlipidemia, Hypertension, Osteoarthritis (OA), Thyroid Disorder Additional Past Medical History / Comment(s): Occasional palpitations, gastritis, small hiatal hernia, diverticular dx, pt states years ago he had PUD, chronic low back pain, chronic pain syndrome, migraines, DVT L arm, numbness/tingling bilateral lower legs, bilateral past R hand fracture, arthritis multiple joints, hyperthyroid, sinus problems. History of Any Multi-Drug Resistant Organisms: None Reported Past Surgical History: Back Surgery, Cholecystectomy, Heart Catheterization With Stent, Orthopedic Surgery Additional Past Surgical History / Comment(s): EGDs/colonoscopies, multiple low back surgeries, bilateral arm and bilateral thigh surgeries for brown recluse spider bites with infection, morphine pain pump insertion and removal due to infection, PCI with stents, L rotator cuff repair, L knee arthroscopy, cervical fusion/cage, R cataract removal. Past Anesthesia/Blood Transfusion Reactions: No Reported Reaction Additional Past Anesthesia/Blood Transfusion Reaction / Comm: Pt states after cervical fusion he "" in the recovery room but does not know cause- he was"gone for 8 minutes" and states he was resusitated. Pt received blood after back surgery and tolerated it well. Date of Last Stent Placement:: 10/12/17 Past Psychological History: No Psychological Hx Reported Additional Psychological History / Comment(s): He uses a walker and cane to ambulate. Smoking Status: Former smoker Past Alcohol Use History: None Reported Additional Past Alcohol Use History / Comment(s): Pt started smoking in 1973 and quit in 1984 Past Drug Use History: None Reported - Past Family History Father Family Medical History: No Reported History Additional Family Medical History / Comment(s): Father had back problems. He lived to be 82 yrs old. Mother Family Medical History: Hypertension, Myocardial Infarction ([place]) Additional Family Medical History / Comment(s): Mother of a [place] at the age of 55yrs. Brother(s) Family Medical History: Cancer, COPD Additional Family Medical History / Comment(s): Leukemia Medications and Allergies Home Medications Medication Instructions Recorded Confirmed Type Aspirin 81 mg PO DAILY 01/21/17 08/20/19 History Fluticasone Nasal [place] [Flonase 1 spray EA NOSTRIL BID 04/20/17 08/20/19 History Nasal [place]] Morphine Sulfate ER [Ms Contin] 30 mg PO TID 10/10/17 08/20/19 History Atorvastatin [Lipitor] 80 mg PO HS #30 tab 10/12/17 08/20/19 Rx tiZANidine [Zanaflex] 4 mg PO TID 02/26/18 08/20/19 History Carvedilol [Coreg*] 12.5 mg PO BID-W/MEALS #60 tab 02/08/19 08/20/19 Rx cloNIDine HCL [Catapres] 0.1 mg PO BID #60 tab 02/08/19 08/20/19 Rx Ezetimibe [Zetia] 10 mg PO DAILY #30 tab 05/24/19 08/20/19 Rx Famotidine [Pepcid] 20 mg PO DAILY #30 tablet 05/24/19 08/20/19 Rx Ondansetron Odt [Zofran ODT] 4 mg PO Q8HR PRN #30 tab 05/24/19 08/20/19 Rx amLODIPine [Norvasc] 5 mg PO BID #60 tab 05/24/19 08/20/19 Rx Nitroglycerin Sl Tabs [Nitrostat] 0.4 mg SUBLINGUAL Q5M PRN #20 tab 07/02/19 08/20/19 Rx Prasugrel [Effient] 10 mg PO DAILY 07/02/19 08/20/19 History HYDROmorphone [Dilaudid] 1 mg PO TID PRN 07/30/19 08/20/19 History Lisinopril 40 mg PO DAILY #14 tab 07/30/19 08/20/19 Rx Loperamide [Imodium] 2 - 4 mg PO QID PRN 07/30/19 08/20/19 History Allergies Allergy/AdvReac Type Severity Reaction Status Date / Time ibuprofen [From Motrin] Allergy Rash/Hives Verified 08/20/19 17:59 ketorolac tromethamine Allergy Rash/Hives Verified 08/20/19 17:59 [From Toradol] Surgical - Exam Osteopathic Statement: *. No significant issues noted on an osteopathic structural exam other than those noted in the History and Physical/Consult. Vital Signs Temp Pulse Resp BP Pulse Ox 97.6 F 91 18 148/95 100 08/20/19 17:37 08/20/19 17:37 08/20/19 17:37 08/20/19 17:37 08/20/19 17:37 - General well developed, well nourished, no distress - Eyes normal ocular movement - ENT normal mucosa - Neck trachea midline - Respiratory normal respiratory effort, clear to auscultation - Cardiovascular Rhythm: regular - Abdomen Abdomen: soft, tender (Epigastric), no rebound, no distended Results - Labs 08/20/19 17:50 08/20/19 17:50 Assessment and Plan (1) History of gastric ulcer Current Visit: Yes Status: Acute Code(s): Z87.19 - PERSONAL HISTORY OF OTHER DISEASES OF THE DIGESTIVE SYSTEM SNOMED Code(s): 887081398 (2) Epigastric abdominal pain Current Visit: No Status: Acute Code(s): R10.13 - EPIGASTRIC PAIN SNOMED Code(s): 20896115 (3) Nausea & vomiting Current Visit: No Status: Acute Code(s): R11.2 - NAUSEA WITH VOMITING, UNSPECIFIED SNOMED Code(s): 58711292 (4) Vomiting Current Visit: No Status: Acute Code(s): R11.10 - VOMITING, UNSPECIFIED SNOMED Code(s): 031201578 Plan: I recommended an EGD. The procedure, risks and complications were discussed. I'll do that for him today. Further recommendations to follow.
--- NOTE | 2019-08-22 14:48 | P.PN ---
Progress Note - Text Progress Note Date: 08/22/19 I had spoken to the nurse over the phone earlier today and requested the patient be nothing by mouth. Unfortunately he ate lunch. Therefore we will do the EGD for him tomorrow.
[2019-08-22 17:36] VITALS: RESP 18
[2019-08-22] MEDS: ATORVASTATIN 80 MG TAB PO SCH (19:51)
[2019-08-22] MEDS: SODIUM CHLORIDE 0.9% 1,000 ML IV SCH (19:52)
--- NOTE | 2019-08-22 20:33 | PN ---
PROGRESS NOTE Mr. Johnson is in sinus rhythm, resting comfortably. No further chest pain. He has left shoulder pain. Troponins are normal. Cardiac cath in April did not reveal any significant disease. Patient apparently is having an endoscopy tomorrow. Vitals are stable. No JVD or carotid bruit. S1, S2 heard normally. Lungs are clear. Abdomen and lower extremity exam unchanged. Plan is to continue current medications, and he can be discharged. I will see him in the office as per his scheduled appointment. MMODL / IJN: [id number] /
--- NOTE | 2019-08-22 22:39 | PN ---
PROGRESS NOTE This is an -[place] male who is going to have an EGD today or tomorrow and then discharged home. Atypical chest pain. Myocardial infarction was ruled out. CT scan of the abdomen and chest normal. Hypertension. Chronic pain syndrome with atypical chest pain. EGD for possible peptic ulcer disease, then discharge home. MMODL / IJN: [id number] /
[2019-08-23] MEDS: MORPHINE SULFATE 4 MG/ML SYRINGE IV PRN ×4 (00:49→15:15)
[2019-08-23] MEDS: HYDROmorphone 2 MG TAB PO PRN ×2 (02:38→16:43)
[2019-08-23] MEDS: CARVEDILOL 12.5 MG TAB PO SCH ×2 (06:52→16:44)
[2019-08-23] MEDS: PRASUGREL 10 MG TAB PO SCH (09:19)
[2019-08-23] MEDS: EZETIMIBE 10 MG TAB PO SCH (09:19)
[2019-08-23] MEDS: cloNIDine HCL 0.1 MG TAB PO SCH (09:19)
[2019-08-23] MEDS: tiZANidine 4 MG TAB PO SCH ×2 (09:19→16:44)
[2019-08-23] MEDS: LISINOPRIL 20 MG TAB PO SCH (09:19)
[2019-08-23] MEDS: FAMOTIDINE 20 MG TAB PO SCH (09:19)
[2019-08-23] MEDS: amLODIPine 5 MG TAB PO SCH (09:19)
[2019-08-23] MEDS: ASPIRIN 81 MG PO SCH (09:19)
[2019-08-23] MEDS: HYDROCHLOROTHIAZIDE 25 MG TAB PO SCH (09:19)
[2019-08-23] MEDS: FLUTICASONE 50MCG/SPRAY NASAL 16GM EA NOSTRIL SCH (12:07)
[2019-08-23] MEDS ORDERED: IV FLUID CONTINUATION 1,000 ML IV ONE (13:11)
[2019-08-23] MEDS ORDERED: LIDOCAINE 1% INJ 10MG/ML (20 ML MDV) ONE (13:11)
[2019-08-23] MEDS ORDERED: PROPOFOL 10 MG/ML 20 ML VIAL IV ONE (13:11)
[2019-08-23] MEDS ORDERED: fentaNYL (PF) 50 MCG/ML 2 ML AMP ONE (13:11)
--- NOTE | 2019-08-23 13:34 | P.PCN ---
Date of Procedure: 08/23/19 Preoperative Diagnosis: Abdominal pain, chest pain, nausea, vomiting Postoperative Diagnosis: Same, esophagitis, gastritis, duodenitis with duodenal erosion Procedure(s) Performed: EGD with biopsy Anesthesia: MAC Surgeon: Karen Pearl Pathology: other Condition: stable Disposition: PACU Indications for Procedure: Patient presented with chest pain, abdominal pain, nausea and vomiting Description of Procedure: The patient's taken to the endoscopy suite were gastroscope is passed per mouth to the third and fourth portions of the duodenum. The pharynx is unremarkable. The upper esophagus is without evidence of esophagitis or mass lesion. There is some esophagitis in the distal esophagus which is likely from throwing up. Cold biopsies were obtained. He has some chronic appearing gastritis in the antrum and cold biopsies were obtained. There was some scarring which would be consistent with a healed ulcer. There was duodenitis in the duodenal bulb along with a superficial erosion about 70 mm in size. Cold biopsies were obtained in the duodenum. Some cold biopsies were also obtained in the antrum to rule out H. pylori. No significant hiatal hernia was seen on retroflexion of the scope. He tolerated the procedure without difficulty and was taken recovery room in satisfactory condition. We'll give him a course of Carafate for 2 weeks. I'll call with the report of the biopsies and let him know whether there is any H. pylori.
[2019-08-23] MEDS ORDERED: SUCRALFATE 1 GM TAB PO SCH (17:30)
[2019-08-23 17:45] VITALS: BP 147/109; PULSE 83; TEMP 97.1
--- NOTE | 2019-09-14 06:19 | DS ---
DISCHARGE SUMMARY DATE OF ADMISSION: 08/20/2019 DATE OF DISCHARGE: 08/23/2019 MEDICATIONS: 1. Aspirin 81 mg daily. 2. Flonase nasal spray 1 spray daily. 3. Morphine sulfate ER 30 mg t.i.d. 4. Lipitor 80 mg daily. 5. Zanaflex 4 mg t.i.d. 6. Catapres 0.1 b.i.d. 7. Coreg 12.5 b.i.d. 8. Norvasc 5 mg b.i.d. 9. Pepcid 20 mg daily. 10.Zetia 10 mg daily. 11.Zofran 4 mg q.8 hours p.r.n. 12.Effient 10 mg daily. 13.Nitro sublingual 0.4 mg q.3 to 5 minutes p.r.n. 14.Dilaudid 1 mg t.i.d. p.r.n. 15.Lisinopril 40 mg daily. 16.Carafate 1 gram t.i.d. The patient comes into the hospital and apparently had an EGD done. Troponins were normal. Cardiac cath in April did not show anything. He had an EGD with multiple biopsies, which will be followed up as an outpatient. To follow up with Cardiology and GI doctor as an outpatient. Dr. Karen Pearl did find some esophagitis, gastritis, duodenitis with duodenal erosion after EGD with biopsy which home medications were adjusted per her and discharge was ordered. MMODL / IJN: [id number] /
== END 2019-08-23 17:44 | disposition home or self-care (01) ==
LOC: EC 17:34 → 3SCARD 19:08
PROVIDERS: ADMIT Family Medicine; ATTEND Family Medicine
DX: R10.13 Epigastric pain (principal); R07.89 Other chest pain; M25.512 Pain in left shoulder; R11.2 Nausea with vomiting, unspecified; R06.00 Dyspnea, unspecified; R60.9 Edema, unspecified; R00.2 Palpitations; R20.0 Anesthesia of skin; R20.2 Paresthesia of skin; M54.2 Cervicalgia; M79.603 Pain in arm, unspecified; I10 Essential (primary) hypertension; I25.10 Atherosclerotic heart disease of native coronary artery without angina pectoris; M19.90 Unspecified osteoarthritis, unspecified site; E03.9 Hypothyroidism, unspecified; E78.5 Hyperlipidemia, unspecified; G89.4 Chronic pain syndrome; K44.9 Diaphragmatic hernia without obstruction or gangrene; M54.5 Low back pain; G43.909 Migraine, unspecified, not intractable, without status migrainosus; E05.90 Thyrotoxicosis, unspecified without thyrotoxic crisis or storm; K21.0 Gastro-esophageal reflux disease with esophagitis; K26.9 Duodenal ulcer, unspecified as acute or chronic, without hemorrhage or perforation; K29.70 Gastritis, unspecified, without bleeding; K29.80 Duodenitis without bleeding; J44.9 Chronic obstructive pulmonary disease, unspecified; Z90.49 Acquired absence of other specified parts of digestive tract; Z95.5 Presence of coronary angioplasty implant and graft; Z86.718 Personal history of other venous thrombosis and embolism; Z87.891 Personal history of nicotine dependence; Z87.19 Personal history of other diseases of the digestive system; Z87.11 Personal history of peptic ulcer disease; Z98.1 Arthrodesis status; Z79.82 Long term (current) use of aspirin; Z79.899 Other long term (current) drug therapy; Z79.891 Long term (current) use of opiate analgesic; Z79.02 Long term (current) use of antithrombotics/antiplatelets; Z88.6 Allergy status to analgesic agent; Z88.5 Allergy status to narcotic agent; Z82.49 Family history of ischemic heart disease and other diseases of the circulatory system; Z82.69 Family history of other diseases of the musculoskeletal system and connective tissue; Z80.6 Family history of leukemia; Z82.5 Family history of asthma and other chronic lower respiratory diseases
CPT/HCPCS: 96376 ×3; 96375; 96374; 99285; 36415; 94640 ×3; 94760; 93005; 88305; 83880; 80061; 80053; 83690; 83735; 84484 ×2; 85025; 85610; 85730; 71046; 71275; 74176; 43239; G0378 ×4; J2270 ×4; J2001; J3010; J2704; J1170; Q9967

== ENCOUNTER 2019-09-13 14:25 | Emergency (ER) | payer MEDICARE, OTHER ==
[2019-09-13 14:40] VITALS: RESP 18; TEMP 97.6
[2019-09-13 15:26] LABS: ALT 15 U/L (21-72); AST 18 U/L (17-59); African American GFR (CKD) >90 (>60 ml/min/1.73 sqM); Albumin 4.7 g/dL (3.5-5.0); Alkaline Phosphatase 75 U/L (38-126); Anion Gap 12 mmol/L; Blood Urea Nitrogen 9 mg/dL (9-20); Calcium 10.1 mg/dL (8.4-10.2); Carbon Dioxide 20 mmol/L (22-30); Chloride 106 mmol/L (98-107); Glucose 130 mg/dL (74-99); Potassium 3.9 mmol/L (3.5-5.1); Sodium 138 mmol/L (137-145); Total Bilirubin 0.7 mg/dL (0.2-1.3)
[2019-09-13 15:27] LABS: Partial Thromboplastin Time 24.3 sec (22.0-30.0); Prothrombin Time 10.6 sec (9.0-12.0)
[2019-09-13 15:49] LABS: Basophils % (A) 0 %; Eosinophils % (A) 1 %; HCT 38.8 % (39.0-53.0); HGB 12.7 gm/dL (13.0-17.5); Lymphocytes # (A) 0.7 k/uL (1.0-4.8); Lymphocytes % (A) 18 %; MCH 29.3 pg (25.0-35.0); MCHC 32.8 g/dL (31.0-37.0); MCV 89.5 fL (80.0-100.0); Mean Platelet Volume 5.3; Monocytes # (A) 0.2 k/uL (0-1.0); Monocytes % (A) 6 %; Neutrophils # (A) 2.9 k/uL (1.3-7.7); Neutrophils % (A) 73 %; Platelet Count 470 k/uL (150-450); RBC 4.33 m/uL (4.30-5.90); RDW 14.4 % (11.5-15.5)
[2019-09-13] MEDS ORDERED: diphenhydrAMINE 50 MG/ML 1 ML VIAL IM STA (18:06)
[2019-09-13] MEDS ORDERED: MORPHINE SULFATE 4 MG/ML SYRINGE IM STA (18:06)
[2019-09-13] MEDS ORDERED: PROMETHAZINE INJ 25 MG/ML 1 ML VIAL IM STA (18:07)
--- NOTE | 2019-09-13 18:26 | ED ---
General Adult HPI - General Chief complaint: Chest Pain Stated complaint: Chest&Abd Pain Time Seen by Provider: 09/13/19 15:48 Source: patient, RN notes reviewed Mode of arrival: ambulatory Limitations: no limitations - History of Present Illness Initial comments: This a 63-year-old male presents emergency Department chief complaint of abdominal pain. Patient states that this pain started around 10:00 this morning when he became very nauseous, started vomiting. Patient states that his been vomiting on and off over the last 8 hours. Patient states in the meantime he states he has burning in his chest and his epigastric region. He states is nonr adiating. He denies feeling short of breath at this time. Patient states that he does get gagging when he is vomiting and feels short of breath at that time. Patient has no complaints of hematemesis or coffee-ground emesis. Patient states she just does not feel well. Patient denies any back pain, headache, dizziness, fever or chills no sick contacts. - Related Data Home Medications Medication Instructions Recorded Confirmed Aspirin 81 mg PO DAILY 01/21/17 09/13/19 Fluticasone Nasal [place] [Flonase 1 spray EA NOSTRIL BID 04/20/17 09/13/19 Nasal [place]] Morphine Sulfate ER [Ms Contin] 30 mg PO TID 10/10/17 09/13/19 tiZANidine [Zanaflex] 4 mg PO TID 02/26/18 09/13/19 Prasugrel [Effient] 10 mg PO DAILY 07/02/19 09/13/19 HYDROmorphone [Dilaudid] 2 mg PO TID PRN 07/30/19 09/13/19 Loperamide [Imodium] 2 - 4 mg PO QID PRN 07/30/19 09/13/19 Previous Rx's Medication Instructions Recorded Atorvastatin [Lipitor] 80 mg PO HS #30 tab 10/12/17 Carvedilol [Coreg*] 12.5 mg PO BID-W/MEALS #60 tab 02/08/19 cloNIDine HCL [Catapres] 0.1 mg PO BID #60 tab 02/08/19 Ezetimibe [Zetia] 10 mg PO DAILY #30 tab 05/24/19 Famotidine [Pepcid] 20 mg PO DAILY #30 tablet 05/24/19 Ondansetron Odt [Zofran ODT] 4 mg PO Q8HR PRN #30 tab 05/24/19 amLODIPine [Norvasc] 5 mg PO BID #60 tab 05/24/19 Nitroglycerin Sl Tabs [Nitrostat] 0.4 mg SUBLINGUAL Q5M PRN #20 tab 07/02/19 Lisinopril 40 mg PO DAILY #14 tab 07/30/19 Sucralfate [Carafate] 1 gm PO TID #42 tablet 08/23/19 Ondansetron Odt [Zofran Odt] 4 mg PO Q8HR PRN #10 tab 09/13/19 Allergies Allergy/AdvReac Type Severity Reaction Status Date / Time ibuprofen [From Motrin] Allergy Rash/Hives Verified 09/13/19 18:05 ketorolac tromethamine Allergy Rash/Hives Verified 09/13/19 18:05 [From Toradol] Review of Systems ROS Statement: Those systems with pertinent positive or pertinent negative responses have been documented in the HPI. ROS Other: All systems not noted in ROS Statement are negative. Past Medical History Past Medical History: Coronary Artery Disease (CAD), Chest Pain / Angina, COPD, Deep Vein Thrombosis (DVT), GERD/Reflux, Hyperlipidemia, Hypertension, Osteoarthritis (OA), Thyroid Disorder Additional Past Medical History / Comment(s): Occasional palpitations, gastritis, small hiatal hernia, diverticular dx, pt states years ago he had PUD, chronic low back pain, chronic pain syndrome, migraines, DVT L arm, numbness/tingling bilateral lower legs, bilateral past R hand fracture, arthritis multiple joints, hyperthyroid, sinus problems. History of Any Multi-Drug Resistant Organisms: None Reported Past Surgical History: Back Surgery, Cholecystectomy, Heart Catheterization With Stent, Orthopedic Surgery Additional Past Surgical History / Comment(s): EGDs/colonoscopies, multiple low back surgeries, bilateral arm and bilateral thigh surgeries for brown recluse spider bites with infection, morphine pain pump insertion and removal due to infection, PCI with stents, L rotator cuff repair, L knee arthroscopy, cervical fusion/cage, R cataract removal. Past Anesthesia/Blood Transfusion Reactions: No Reported Reaction Additional Past Anesthesia/Blood Transfusion Reaction / Comment(s): Pt states after cervical fusion he "" in the recovery room but does not know cause- he was"gone for 8 minutes" and states he was resusitated. Pt received blood after back surgery and tolerated it well. Date of Last Stent Placement:: 10/12/17 Past Psychological History: No Psychological Hx Reported Smoking Status: Former smoker Past Alcohol Use History: None Reported Past Drug Use History: None Reported - Past Family History Father Family Medical History: No Reported History Additional Family Medical History / Comment(s): Father had back problems. He lived to be 82 yrs old. Mother Family Medical History: Hypertension, Myocardial Infarction ([place]) Additional Family Medical History / Comment(s): Mother of a [place] at the age of 55yrs. Brother(s) Family Medical History: Cancer, COPD Additional Family Medical History / Comment(s): Leukemia General Exam Limitations: no limitations General appearance: alert, in no apparent distress Head exam: Present: atraumatic, normocephalic, normal inspection Eye exam: Present: normal appearance, PERRL, EOMI. Absent: scleral icterus, conjunctival injection, periorbital swelling ENT exam: Present: normal exam, normal oropharynx, mucous membranes moist Neck exam: Present: normal inspection, full ROM. Absent: tenderness, meningismus, lymphadenopathy Respiratory exam: Present: normal lung sounds bilaterally. Absent: respiratory distress, wheezes, rales, rhonchi, stridor Cardiovascular Exam: Present: regular rate, normal rhythm, normal heart sounds. Absent: systolic murmur, diastolic murmur, rubs, gallop, clicks GI/Abdominal exam: Present: soft, tenderness (Moderate epigastric tenderness), normal bowel sounds. Absent: distended, guarding, rebound, rigid Back exam: Absent: CVA tenderness (R), CVA tenderness (L) Neurological exam: Present: alert, oriented X3, CN II-XII intact Skin exam: Present: warm, dry, intact, normal color. Absent: rash Course Vital Signs 09/13/19 14:37 Temperature 97.6 F Pulse Rate 89 Respiratory 18 Rate Blood Pressure 135/81 O2 Sat by Pulse 100 Oximetry Medical Decision Making - Medical Decision Making Patient lab review which are unremarkable. I did review multiple prior admissions which she's had no recent acute findings. Patient has no complaints of chest pain and he had a recent heart cath in April which was essentially negative. He had a widely patent LAD stent, minimal narrowing at 30%. Patient's symptoms started with GI symptoms and are consistent with an more of a gastroenteritis at this time. Patient was given Phenergan, Benadryl, pain control. Patient we discharged with Zofran. Patient's advise follow-up PCP tomorrow. - Lab Data Result diagrams: 09/13/19 15:06 09/13/19 15:06 Lab Results 09/13/19 09/13/19 09/13/19 Range/Units 15:06 15:06 15:06 WBC 4.0 (3.8-10.6) k/uL RBC 4.33 (4.30-5.90) m/uL Hgb 12.7 L (13.0-17.5) gm/dL Hct 38.8 L (39.0-53.0) % MCV 89.5 (80.0-100.0) fL MCH 29.3 (25.0-35.0) pg MCHC 32.8 (31.0-37.0) g/dL RDW 14.4 (11.5-15.5) % Plt Count 470 H (150-450) k/uL Neutrophils % 73 % Lymphocytes % 18 % Monocytes % 6 % Eosinophils % 1 % Basophils % 0 % Neutrophils # 2.9 (1.3-7.7) k/uL Lymphocytes # 0.7 L (1.0-4.8) k/uL Monocytes # 0.2 (0-1.0) k/uL Eosinophils # 0.0 (0-0.7) k/uL Basophils # 0.0 (0-0.2) k/uL PT 10.6 (9.0-12.0) sec INR 1.0 (<1.2) APTT 24.3 (22.0-30.0) sec Sodium 138 (137-145) mmol/L Potassium 3.9 (3.5-5.1) mmol/L Chloride 106 (98-107) mmol/L Carbon Dioxide 20 L (22-30) mmol/L Anion Gap 12 mmol/L BUN 9 (9-20) mg/dL Creatinine 0.60 L (0.66-1.25) mg/dL Est GFR (CKD-EPI)AfAm >90 (>60 ml/min/1.73 sqM) Est GFR (CKD-EPI)NonAf >90 (>60 ml/min/1.73 sqM) Glucose 130 H (74-99) mg/dL Calcium 10.1 (8.4-10.2) mg/dL Total Bilirubin 0.7 (0.2-1.3) mg/dL AST 18 (17-59) U/L ALT 15 L (21-72) U/L Alkaline Phosphatase 75 (38-126) U/L Troponin I (0.000-0.034) ng/mL Total Protein 8.0 (6.3-8.2) g/dL Albumin 4.7 (3.5-5.0) g/dL 09/13/19 Range/Units 15:06 WBC (3.8-10.6) k/uL RBC (4.30-5.90) m/uL Hgb (13.0-17.5) gm/dL Hct (39.0-53.0) % MCV (80.0-100.0) fL MCH (25.0-35.0) pg MCHC (31.0-37.0) g/dL RDW (11.5-15.5) % Plt Count (150-450) k/uL Neutrophils % % Lymphocytes % % Monocytes % % Eosinophils % % Basophils % % Neutrophils # (1.3-7.7) k/uL Lymphocytes # (1.0-4.8) k/uL Monocytes # (0-1.0) k/uL Eosinophils # (0-0.7) k/uL Basophils # (0-0.2) k/uL PT (9.0-12.0) sec INR (<1.2) APTT (22.0-30.0) sec Sodium (137-145) mmol/L Potassium (3.5-5.1) mmol/L Chloride (98-107) mmol/L Carbon Dioxide (22-30) mmol/L Anion Gap mmol/L BUN (9-20) mg/dL Creatinine (0.66-1.25) mg/dL Est GFR (CKD-EPI)AfAm (>60 ml/min/1.73 sqM) Est GFR (CKD-EPI)NonAf (>60 ml/min/1.73 sqM) Glucose (74-99) mg/dL Calcium (8.4-10.2) mg/dL Total Bilirubin (0.2-1.3) mg/dL AST (17-59) U/L ALT (21-72) U/L Alkaline Phosphatase (38-126) U/L Troponin I <0.012 (0.000-0.034) ng/mL Total Protein (6.3-8.2) g/dL Albumin (3.5-5.0) g/dL Disposition Clinical Impression: Nausea & vomiting, Abdominal pain Disposition: HOME SELF-CARE Condition: Stable Instructions (If sedation given, give patient instructions): Abdominal Pain (ED) Additional Instructions: Please return to the Emergency Department if symptoms worsen or any other concerns. Prescriptions: Ondansetron Odt [Zofran Odt] 4 mg PO Q8HR PRN #10 tab PRN Reason: Nausea Is patient prescribed a controlled substance at d/c from ED?: No Referrals: None,Stated [Primary Care Provider] - 1-2 days Time of Disposition: 18:26
[2019-09-13 18:35] VITALS: BP 132/95; PULSE 84
== END 2019-09-13 18:59 | disposition home or self-care (01) ==
LOC: EC 14:25
DX: R11.2 Nausea with vomiting, unspecified (principal); R10.13 Epigastric pain; R12 Heartburn; I25.119 Atherosclerotic heart disease of native coronary artery with unspecified angina pectoris; J44.9 Chronic obstructive pulmonary disease, unspecified; M19.90 Unspecified osteoarthritis, unspecified site; Z87.891 Personal history of nicotine dependence; Z88.6 Allergy status to analgesic agent; Z79.51 Long term (current) use of inhaled steroids; Z79.82 Long term (current) use of aspirin; Z79.891 Long term (current) use of opiate analgesic; Z79.899 Other long term (current) drug therapy; Z95.5 Presence of coronary angioplasty implant and graft; Z90.49 Acquired absence of other specified parts of digestive tract; Z82.49 Family history of ischemic heart disease and other diseases of the circulatory system
CPT/HCPCS: 36415; 93005; 80053; 84484; 85025; 85610; 85730; 99283; 96372 ×3; J2270; J1200; J2550

== ENCOUNTER 2019-10-14 08:16 | Observation (INO) | payer MEDICARE ==
[2019-10-14 09:08] LABS: Basophils % (A) 1 %; Eosinophils # (A) 0.1 k/uL (0-0.7); Eosinophils % (A) 2 %; HCT 38.7 % (39.0-53.0); HGB 12.2 gm/dL (13.0-17.5); Lymphocytes # (A) 0.9 k/uL (1.0-4.8); Lymphocytes % (A) 30 %; MCH 28.6 pg (25.0-35.0); MCHC 31.6 g/dL (31.0-37.0); MCV 90.6 fL (80.0-100.0); Mean Platelet Volume 5.7; Monocytes # (A) 0.3 k/uL (0-1.0); Monocytes % (A) 8 %; Neutrophils # (A) 1.7 k/uL (1.3-7.7); Neutrophils % (A) 55 %; Platelet Count 413 k/uL (150-450); RBC 4.27 m/uL (4.30-5.90); RDW 13.9 % (11.5-15.5); WBC 3.1 k/uL (3.8-10.6)
[2019-10-14] MEDS ORDERED: MORPHINE SULFATE 4 MG/ML SYRINGE IVP STA (09:12)
[2019-10-14] MEDS ORDERED: ASPIRIN 81 MG PO STA (09:12)
[2019-10-14 09:16] LABS: Partial Thromboplastin Time 25.6 sec (22.0-30.0); Prothrombin Time 10.8 sec (9.0-12.0)
[2019-10-14 09:19] LABS: ALT 20 U/L (21-72); AST 13 U/L (17-59); African American GFR (CKD) >90 (>60 ml/min/1.73 sqM); Albumin 4.3 g/dL (3.5-5.0); Alkaline Phosphatase 71 U/L (38-126); Anion Gap 11 mmol/L; Blood Urea Nitrogen 12 mg/dL (9-20); Calcium 9.8 mg/dL (8.4-10.2); Carbon Dioxide 22 mmol/L (22-30); Chloride 107 mmol/L (98-107); Glucose 125 mg/dL (74-99); Magnesium 1.8 mg/dL (1.6-2.3); Non-African American GFR(CKD) >90 (>60 ml/min/1.73 sqM); Potassium 3.7 mmol/L (3.5-5.1); Sodium 140 mmol/L (137-145); Total Bilirubin 0.5 mg/dL (0.2-1.3); Total Protein 7.4 g/dL (6.3-8.2)
--- NOTE | 2019-10-14 09:20 | XR ---
EXAMINATION TYPE: XR chest 2V DATE OF EXAM: 10/14/2019 COMPARISON: Prior chest 08/20/2019 HISTORY: Chest pain, lightheadedness TECHNIQUE: Frontal and lateral views of the chest are obtained. FINDINGS: Initial image is horizontally the left. There is no focal air space opacity, pleural effusi on, or pneumothorax seen. The cardiac silhouette size is within normal limits. The osseous structu res are intact. There are coronary artery calcifications. Aorta is aneurysmal. Postop changes noted i n the cervical spine. IMPRESSION: No acute cardiopulmonary process. Coronary artery disease, aortic aneurysm.
[2019-10-14] MEDS ORDERED: HYDROmorphone 0.5 MG/0.5 ML SYRINGE IVP STA (10:46)
--- NOTE | 2019-10-14 11:14 | ED ---
Chest Pain HPI - General Chief Complaint: Chest Pain Stated Complaint: Blood in Stool, Chest Pain Time Seen by Provider: 10/14/19 08:20 Source: patient Mode of arrival: ambulatory Limitations: no limitations - History of Present Illness Initial Comments: The patient is a 63-year-old male with past history of coronary artery disease who presents to the emergency department with reported chest pain. States that he woke him up out of sleep at 3 AM this morning. He describes it as a left- sided substernal chest pain with radiation to his left arm and left jaw. He does have a history of coronary disease and sees Dr. Go. He was last cath in April of this year. His had 3 stents placed in his heart. He states that since stent placements he has had occasional chest pain. He does not follow up in office with Dr. Go. He does have nitro at his disposal at home however did not take any. He does take a baby aspirin. He denies any fevers or chills. No cough or hemoptysis. Admits to mild shortness of breath with associated nausea and diaphoresis. He also mentioned that at 4 AM this morning he had a bowel movement which was bright red in color. He has a history of peptic ulcer disease. Has associated right upper quadrant abdominal pain. Is unsure of his last EGD. There are no other alleviating, precipitating or modifying factors - Related Data Home Medications Medication Instructions Recorded Confirmed Aspirin 81 mg PO DAILY 01/21/17 10/14/19 Fluticasone Nasal [place] [Flonase 1 spray EA NOSTRIL BID 04/20/17 10/14/19 Nasal [place]] Morphine Sulfate ER [Ms Contin] 30 mg PO TID 10/10/17 10/14/19 tiZANidine [Zanaflex] 4 mg PO TID PRN 02/26/18 10/14/19 Prasugrel [Effient] 10 mg PO DAILY 07/02/19 10/14/19 HYDROmorphone [Dilaudid] 2 mg PO TID PRN 07/30/19 10/14/19 Loperamide [Imodium] 2 - 4 mg PO QID PRN 07/30/19 10/14/19 Previous Rx's Medication Instructions Recorded Atorvastatin [Lipitor] 80 mg PO HS #30 tab 10/12/17 Carvedilol [Coreg*] 12.5 mg PO BID-W/MEALS #60 tab 02/08/19 cloNIDine HCL [Catapres] 0.1 mg PO BID #60 tab 02/08/19 Ezetimibe [Zetia] 10 mg PO DAILY #30 tab 05/24/19 amLODIPine [Norvasc] 5 mg PO BID #60 tab 05/24/19 Nitroglycerin Sl Tabs [Nitrostat] 0.4 mg SUBLINGUAL Q5M PRN #20 tab 07/02/19 Lisinopril 40 mg PO DAILY #14 tab 07/30/19 Sucralfate [Carafate] 1 gm PO TID #42 tablet 08/23/19 Ondansetron Odt [Zofran ODT] 4 mg PO Q8HR PRN #10 tab 09/13/19 Pantoprazole Sodium [Protonix] 40 mg PO AC-BID #60 tablet. 10/15/19 Dicyclomine [Bentyl] 20 mg PO TID #90 tablet 10/16/19 Allergies Allergy/AdvReac Type Severity Reaction Status Date / Time ibuprofen [From Motrin] Allergy Rash/Hives Verified 10/14/19 08:21 ketorolac tromethamine Allergy Rash/Hives Verified 10/14/19 08:21 [From Toradol] Review of Systems ROS Statement: Those systems with pertinent positive or pertinent negative responses have been documented in the HPI. ROS Other: All systems not noted in ROS Statement are negative. EKG Findings - EKG Comments: EKG Findings:: EKG demonstrates normal sinus rhythm with ventricular rate of 86. MT interval 166. QRS 86. QTC 433. No acute ST segment elevations or depressions concerning for ischemic changes Past Medical History Past Medical History: Coronary Artery Disease (CAD), Chest Pain / Angina, COPD, Deep Vein Thrombosis (DVT), GERD/Reflux, Hyperlipidemia, Hypertension, Osteoarthritis (OA), Thyroid Disorder Additional Past Medical History / Comment(s): Occasional palpitations, gastritis, small hiatal hernia, diverticular dx, pt states years ago he had PUD, chronic low back pain, chronic pain syndrome, migraines, DVT L arm, numbn ess/tingling bilateral lower legs, bilateral past R hand fracture, arthritis multiple joints, hyperthyroid, sinus problems. History of Any Multi-Drug Resistant Organisms: None Reported Past Surgical History: Back Surgery, Cholecystectomy, Heart Catheterization With Stent, Orthopedic Surgery Additional Past Surgical History / Comment(s): EGDs/colonoscopies, multiple low back surgeries, bilateral arm and bilateral thigh surgeries for brown recluse spider bites with infection, morphine pain pump insertion and removal due to infection, PCI with stents, L rotator cuff repair, L knee arthroscopy, cervical fusion/cage, R cataract removal. Past Anesthesia/Blood Transfusion Reactions: No Reported Reaction Additional Past Anesthesia/Blood Transfusion Reaction / Comment(s): Pt states after cervical fusion he "" in the recovery room but does not know cause- he was"gone for 8 minutes" and states he was resusitated. Pt received blood after back surgery and tolerated it well. Date of Last Stent Placement:: 10/12/17 Past Psychological History: No Psychological Hx Reported Smoking Status: Former smoker Past Alcohol Use History: None Reported Past Drug Use History: None Reported - Past Family History Father Family Medical History: No Reported History Additional Family Medical History / Comment(s): Father had back problems. He lived to be 82 yrs old. Mother Family Medical History: Hypertension, Myocardial Infarction ([place]) Additional Family Medical History / Comment(s): Mother of a [place] at the age of 55yrs. Brother(s) Family Medical History: Cancer, COPD Additional Family Medical History / Comment(s): Leukemia General Exam Limitations: no limitations General appearance: alert, in no apparent distress Head exam: Present: atraumatic, normocephalic, normal inspection Eye exam: Present: normal appearance, PERRL, EOMI. Absent: scleral icterus, conjunctival injection, periorbital swelling ENT exam: Present: normal exam, mucous membranes moist Neck exam: Present: normal inspection. Absent: tenderness, meningismus, lymphadenopathy Respiratory exam: Present: normal lung sounds bilaterally. Absent: respiratory distress, wheezes, rales, rhonchi, stridor Cardiovascular Exam: Present: normal rhythm, tachycardia, normal heart sounds. Absent: systolic murmur, diastolic murmur, rubs, gallop, clicks GI/Abdominal exam: Present: soft, tenderness (RUQ), normal bowel sounds. Absent: distended, guarding, rebound, rigid Extremities exam: Present: normal inspection, full ROM, normal capillary refill. Absent: tenderness, pedal edema, joint swelling, calf tenderness Back exam: Present: normal inspection Neurological exam: Present: alert, oriented X3, CN II-XII intact Psychiatric exam: Present: normal affect, normal mood Skin exam: Present: warm, dry, intact, normal color. Absent: rash Course Vital Signs 10/14/19 10/14/19 10/14/19 08:19 08:29 08:30 Temperature 97.5 F L Pulse Rate 104 H 80 89 Respiratory 22 10 L 20 Rate Blood Pressure 166/95 143/94 O2 Sat by Pulse 100 100 100 Oximetry 10/14/19 10/14/19 10/14/19 11:00 12:00 12:30 Temperature Pulse Rate 81 74 73 Respiratory 16 20 Rate Blood Pressure 185/101 176/95 167/101 O2 Sat by Pulse 99 99 98 Oximetry Chest Pain MDM - MDM Upon arrival the patient is placed into room 2. A thorough history and physical exam is performed. Peripheral IV is established. Patient is given 4 chewable aspirins. He was also given 4 mg of morphine and 4 mg of Zofran. I recommended laboratory studies. CBC, coags and CMP are unremarkable. First troponin is negative. Fecal occult is also negative chest x-rays performed on the patient demonstrates no acute cardio pulmonary process. I discussed this with the patient. He reports to continued chest pain. He was then given 0.5 mg of Dilaudid. I did recommend hospital admission for continued pain. We will trend his troponins. I did discuss case with Dr. Lopez who accepted admission for the patient Disposition Clinical Impression: Chest pain, Nausea & vomiting Disposition: ADMITTED IP TO THIS HOSP Condition: Stable Is patient prescribed a controlled substance at d/c from ED?: No Decision to Admit Reason: Admit from EC Decision Date: 10/14/19 Decision Time: 11:14
[2019-10-14] MEDS ORDERED: NALOXONE 0.4 MG/ML 1 ML VIAL IV PRN (11:15)
[2019-10-14 12:01] VITALS: BMI 24.1
[2019-10-14] MEDS ORDERED: LOPERAMIDE 2 MG CAP PO PRN (12:52)
[2019-10-14] MEDS ORDERED: NITROGLYCERIN SL TABS 0.4 MG TAB SUBLINGUAL PRN (12:52)
[2019-10-14] MEDS ORDERED: ONDANSETRON ODT 4 MG TAB PO PRN (12:52)
[2019-10-14] MEDS ORDERED: tiZANidine 4 MG TAB PO PRN (12:52)
[2019-10-14] MEDS: HYDROmorphone 2 MG TAB PO PRN ×2 (13:24→21:00)
--- NOTE | 2019-10-14 14:13 | CT ---
EXAMINATION TYPE: CT cervical spine wo con DATE OF EXAM: 10/14/2019 COMPARISON: NONE HISTORY: neck pain, Lt ext paresthesia CT DLP: 348.9 mGycm. Automated Exposure Control for Dose Reduction was Utilized. TECHNIQUE: CT scan of the cervical spine is obtained without contrast, axial images are obtained, sa gittal and coronal reformatted images are also reviewed. FINDINGS: Anterior cervical fusion device in the C4-C7 vertebral levels with intervertebral disc cage s levels. Facets remain aligned throughout the cervical spine. No vertebral body height loss or malal ignment is seen. Incidentally noted os odontoidium. Spinous processes appear. Skull base is aligned. Mild multilevel uncovertebral hypertrophy. No abnormal prevertebral soft tissue swelling. C2-C3: Small broad-based disc bulge without spinal canal stenosis nor neural foraminal narrowing. C3-C4: Uncovertebral hypertrophy and mild facet arthropathy resulting in mild bilateral neural forami nal narrowing without significant spinal canal stenosis on CT. C4-C7: Postsurgical change create spray effect and limits evaluation of these levels. No high-grade s ayush canal stenosis or high-grade neural foraminal narrowing are seen. There appears to be at least moderate neural foraminal narrowing bilaterally at C6-C7. C7-T1: No significant disc disease, spinal canal stenosis or neuroforaminal narrowing. Incidentally noted enlarged thyroid gland. Thyroid ultrasound is recommended. Lung apices are well ae rated. Mild atheromatous change of the carotid arteries incidentally seen. IMPRESSION: 1. No acute fracture or dislocation evident in the cervical spine. 2. Limited visualization from C4 through C7 given the anterior cervical fusion device. Mild multileve l degenerative changes of the cervical spine resulting in at least moderate neural foraminal narrowin g at C6-C7 and mild bilateral neural foraminal narrowing at C3-C4. No high-grade spinal canal stenosi s. 3. Diffusely enlarged thyroid. Ultrasound is recommended.
--- NOTE | 2019-10-14 14:39 | P.HPIM ---
History of Present Illness H&P Date: 10/14/19 Chief Complaint: Chest pain The patient is a 63-year-old -[place] male with a past medical history of COPD, CAD with stenting 2 LAD and diagonal branch in April 2019, essential hypertension, chronic pain with opioid dependence secondary to history of multiple cervical and lumbar surgeries, and GERD with this history of esophagitis gastritis and duodenal ulcer that presented to the ER with chief complaint of chest pain. Apparently the patient woke up this morning having left-sided chest discomfort that was severe described as squeezing like someone was standing on his chest with radiation of paresthesias into his left upper extremity and down to his hand and up into his left upper neck. The patient had associated diaphoresis, shortness of breath, with episodes of nausea and vomiting, the patient also reported 2 episodes scant bloody diarrhea. Patient also reports ongoing fibrosis intermittent episodes of belching, The patient reports compliance with all of his medications and states that he's taking pepcid twice daily, the patient reports progressive worsening dyspnea on exertion with ambulation up to 10 steps since being discharged from the hospital a month ago. The patient reports to 3 days of runny nose and nonproductive cough Review of records indicated spell that time the patient presented with similar symptoms, and that time the patient had a EGD that was consistent with duodenal ulcer esophagitis gastritis and states that he was started on Protonix for which she reports compliance. The patient is recently had a echocardiogram done 07/02 indicated a preserved LVEF of 60-65%, moderate concentric left ventricular hypertrophy, with a mildly dilated left atrium without any significant valvular abnormalities. In the ER the patient had a workup EKG showed sinus mechanism without any acute ischemia, PT INR was 10.8 and 1, NT proBNP was 27 troponin was less than 0.012, Hemoccult was negative. WBC 3.1 hemoglobin 12.2. Chest x-ray showed no acute process, CAD and aortic aneurysm. The patient was given aspirin, IV Dilaudid and morphine and recommended for admission. Review of Systems Pertinent positives per HPI all other review of system otherwise negative Past Medical History Past Medical History: Coronary Artery Disease (CAD), Chest Pain / Angina, COPD, Deep Vein Thrombosis (DVT), GERD/Reflux, Hyperlipidemia, Hypertension, Osteoarthritis (OA), Thyroid Disorder Additional Past Medical History / Comment(s): Occasional palpitations, gastritis, small hiatal hernia, diverticular dx, pt states years ago he had PUD, chronic low back pain, chronic pain syndrome, migraines, DVT L arm, numbness/tingling bilateral lower legs, bilateral past R hand fracture, arthritis multiple joints, hyperthyroid, sinus problems. History of Any Multi-Drug Resistant Organisms: None Reported Past Surgical History: Back Surgery, Cholecystectomy, Heart Catheterization With Stent, Orthopedic Surgery Additional Past Surgical History / Comment(s): EGDs/colonoscopies, multiple low back surgeries, bilateral arm and bilateral thigh surgeries for brown recluse spider bites with infection, morphine pain pump insertion and removal due to infection, PCI with stents, L rotator cuff repair, L knee arthroscopy, cervical fusion/cage, R cataract removal. Past Anesthesia/Blood Transfusion Reactions: No Reported Reaction Additional Past Anesthesia/Blood Transfusion Reaction / Comment(s): Pt states after cervical fusion he "" in the recovery room but does not know cause- he was"gone for 8 minutes" and states he was resusitated. Pt received blood after back surgery and tolerated it well. Date of Last Stent Placement:: 10/12/17 Past Psychological History: No Psychological Hx Reported Smoking Status: Former smoker Past Alcohol Use History: None Reported Past Drug Use History: None Reported - Past Family History Father Family Medical History: No Reported History Additional Family Medical History / Comment(s): Father had back problems. He lived to be 82 yrs old. Mother Family Medical History: Hypertension, Myocardial Infarction ([place]) Additional Family Medical History / Comment(s): Mother of a [place] at the age of 55yrs. Brother(s) Family Medical History: Cancer, COPD Additional Family Medical History / Comment(s): Leukemia Medications and Allergies Home Medications Medication Instructions Recorded Confirmed Type Aspirin 81 mg PO DAILY 01/21/17 10/14/19 History Fluticasone Nasal [place] [Flonase 1 spray EA NOSTRIL BID 04/20/17 10/14/19 H istory Nasal [place]] Morphine Sulfate ER [Ms Contin] 30 mg PO TID 10/10/17 10/14/19 History Atorvastatin [Lipitor] 80 mg PO HS #30 tab 10/12/17 10/14/19 Rx tiZANidine [Zanaflex] 4 mg PO TID PRN 02/26/18 10/14/19 History Carvedilol [Coreg*] 12.5 mg PO BID-W/MEALS #60 tab 02/08/19 10/14/19 Rx cloNIDine HCL [Catapres] 0.1 mg PO BID #60 tab 02/08/19 10/14/19 Rx Ezetimibe [Zetia] 10 mg PO DAILY #30 tab 05/24/19 10/14/19 Rx amLODIPine [Norvasc] 5 mg PO BID #60 tab 05/24/19 10/14/19 Rx Nitroglycerin Sl Tabs [Nitrostat] 0.4 mg SUBLINGUAL Q5M PRN #20 tab 07/02/19 10/14/19 Rx Prasugrel [Effient] 10 mg PO DAILY 07/02/19 10/14/19 History HYDROmorphone [Dilaudid] 2 mg PO TID PRN 07/30/19 10/14/19 History Lisinopril 40 mg PO DAILY #14 tab 07/30/19 10/14/19 Rx Loperamide [Imodium] 2 - 4 mg PO QID PRN 07/30/19 10/14/19 History Sucralfate [Carafate] 1 gm PO TID #42 tablet 08/23/19 10/14/19 Rx Dicyclomine [Bentyl] 20 mg PO TID #30 tablet 09/13/19 10/14/19 Rx Ondansetron Odt [Zofran Odt] 4 mg PO Q8HR PRN #10 tab 09/13/19 10/14/19 Rx Allergies Allergy/AdvReac Type Severity Reaction Status Date / Time ibuprofen [From Motrin] Allergy Rash/Hives Verified 10/14/19 08:21 ketorolac tromethamine Allergy Rash/Hives Verified 10/14/19 08:21 [From Toradol] Physical Exam Vitals: Vital Signs Temp Pulse Resp BP Pulse Ox 10/14/19 11:00 81 16 185/101 99 10/14/19 08:30 89 20 143/94 100 10/14/19 08:29 80 10 L 100 10/14/19 08:19 97.5 F L 104 H 22 166/95 100 Intake and Output 10/13/19 10/14/19 10/14/19 22:59 06:59 14:59 Other: Weight 78.471 kg Constitutional: No acute distress, conversant, pleasant Eyes: Anicteric sclerae, moist conjunctiva, no lid-lag, PERRLA ENMT: NC/AT,Oropharynx clear, no erythema, exudates Neck:Supple, FROM, no masses, or JVD, No carotid bruits; No thyromegaly Lungs: Clear to auscultation, Clear to percussion, Normal respiratory effort, no accessory muscle use Cardiovascular: Heart regular in rate and rhythm, No murmurs, gallops, or rubs no peripheral edema Abdominal: Soft Nontender, nom distended, no guarding, no rebound or rigidity, Normoactive bowel sounds No hepatomegaly, No splenomegaly, No palpable mass No abdominal wall hernia noted Skin: Normal temperature, tone, texture, turgor, No induration No subcutaneous nodules, No rash, lesions, No ulcers Extremities:No digital cyanosis No clubbing, Pedal pulses intact and symmetrical Radial pulses intact and symmetrical Normal gait and station, No calf tenderness Psychiatric: Alert and oriented to person, place and time, Appropriate affect Intact judgement Neuro: Muscles Strength 5/5 in all 4 extremities, Sensation to light touch grossly present throughout, Cranial nerves II-XII grossly intact. No focal sensory deficits Results CBC & Chem 7: 10/14/19 08:50 10/14/19 08:50 Labs: Abnormal Lab Results - Last 24 Hours (Table) 10/14/19 10/14/19 Range/Units 08:50 08:50 WBC 3.1 L (3.8-10.6) k/uL RBC 4.27 L (4.30-5.90) m/uL Hgb 12.2 L (13.0-17.5) gm/dL Hct 38.7 L (39.0-53.0) % Lymphocytes # 0.9 L (1.0-4.8) k/uL Creatinine 0.62 L (0.66-1.25) mg/dL Glucose 125 H (74-99) mg/dL AST 13 L (17-59) U/L ALT 20 L (21-72) U/L Thrombosis Risk Factor Assmnt - Choose All That Apply Any of the Below Risk Factors Present?: Yes Other Risk Factors: Yes Each Risk Factor Represents 2 Points: Age 61-74 years Each Risk Factor Represents 3 Points: History of DVT/PE Other congenital or acquired thrombophilia - If yes, enter type in comment: No Thrombosis Risk Factor Assessment Total Risk Factor Score: 5 Thrombosis Risk Factor Assessment Level: High Risk Assessment and Plan Assessment: Chest pain CAD with stenting 2 Essential hypertension Hyperlipidemia PUD with history of gastritis, esophagitis GERD Chronic pain with opioid dependence cervical DJD with radiculopathy Plan: The patient is placed in observation anticipated less than 2 midnight stay after presenting with chest pain in a patient with history of coronary artery disease with recent stenting 2 in April of this year, of note the patient presented with these exact same symptoms approximately a month ago. The patient has had workup including echocardiogram 07/02 that preserved LVEF and no valvular abnormalities, On today's workup the patient's EKG shows sinus mechanism without any significant acute ischemia and 2 of his troponins have been negative. His chest discomfort is likely on likely related to any cardiac etiology, possibly related to underlying GERD with history of peptic ulcer disease and recent gastritis and esophagitis, patient reports compliance with Pepcid twice a day we will consider adding Protonix a replace Pepcid with dexilant. We will consult GI for further recommendations. CT of the patient's neck is also been ordered given his history of cervical DJD requiring cervical fusion and his complaints of paresthesias of the left upper extremity. We'll add Lyrica to his regimen. With his complaints of bloody diarrhea Hemoccult was ordered and was negative and his hemoglobin is stable from previous. We will plan to resume all of his home medications a week for consultants recommendations. We'll continue to follow his clinical course CODE STATUS: FULL CODE Anticipated discharge: Tomorrow morning Medical decision maker: Siva Discussed plan of care with: Patient Prophylaxis: PPIs and SCDs
[2019-10-14] MEDS ORDERED: PREGABALIN 75 MG CAP PO STA (14:48)
[2019-10-14] MEDS: ONDANSETRON 4 MG/2 ML VIAL IVP PRN (15:16)
[2019-10-14] MEDS: DICYCLOMINE 20 MG TAB PO SCH ×3 (16:17→20:04)
[2019-10-14] MEDS: MORPHINE SULFATE ER 30 MG TABLET PO SCH ×2 (16:17→20:00)
[2019-10-14] MEDS: SUCRALFATE 1 GM TAB PO SCH ×2 (16:18→19:59)
--- NOTE | 2019-10-14 17:14 | CONS ---
CONSULTATION DATE OF DICTATION: 10/14/2019 REASON FOR CONSULTATION: Epigastric pain. HISTORY OF PRESENT ILLNESS: The patient is a 63-year-old white male admitted to the hospital with severe epigastric pain and chest pain that woke him up from sleep early this morning. The pain was squeezing in nature, radiating to the left upper extremity with tingling and numbness. He also complained of severe epigastric pain associated with nausea, vomiting. The patient says that he has had chronic epigastric pain for several years' duration. He had multiple endoscopies in the past; as recently as 4 weeks ago in August of 2019 he had an upper endoscopy done by Dr. Pearl that showed evidence of gastritis, small duodenal ulcer and duodenitis. Patient has been on Protonix 40 mg twice daily as well as Carafate 1 gram 4 times daily. He is also complaining of intermittent diarrhea with some clots and blood in the stool. His last colonoscopy was by Dr. Martinez in 2016 that showed diverticulosis and internal hemorrhoids. PAST MEDICAL HISTORY: His past medical history is significant for: 1. Chronic abdominal pain/chest pain. 2. History of DVT. 3. GERD. 4. Hyperlipidemia. 5. Hypertension. 6. Degenerative joint disease. 7. Hypothyroidism. PAST SURGICAL HISTORY: 1. Multiple EGDs, last one in August [address] Pearl. 2. Back surgery. 3. Cholecystectomy. 4. Pain pump that was subsequently removed. 5. Cardiac cath with stent placement. MEDICATIONS: Medications at home include: 1. Bentyl. 2. Carafate. 3. Imodium. 4. Dilaudid. 5. Effient. 6. MiraLAX. 7. . 8. Catapres. 9. Coreg. 10.Zanaflex. 11.Lipitor. 12.MS Contin. 13.Flonase. 14.Dicyclomine. ALLERGIES: TORADOL, MOTRIN. SOCIAL HISTORY: History of smoking. No alcohol use. FAMILY HISTORY: Father had back problems. Mother had coronary artery disease and [place]. REVIEW OF SYSTEMS: CARDIOPULMONARY: Chest pain and shortness of breath. GENITOURINARY: No dysuria or hematuria. MUSCULOSKELETAL: Chronic back pain. NEUROLOGY: Unremarkable. PSYCHIATRY: Unremarkable. ENT/VISION: Unremarkable. CONSTITUTIONAL: No recent weight loss. No fever, chills, night sweats. PHYSICAL EXAMINATION: Blood pressure is 176/95, pulse rate 71, temperature 97.8. HEENT examination unremarkable. Conjunctivae pink. Sclerae anicteric. Oral cavity no lesions. NECK: No JVD or lymph node enlargement. CHEST: Clear to auscultation. HEART: Regular rate and rhythm. ABDOMEN: Soft. Bowel sounds are positive. No organomegaly. Mild tenderness in the epigastric area. EXTREMITIES: No pedal edema. SKIN: No rashes. NEUROLOGIC: Alert and oriented x3. No focal deficits. LABS: WBC 3.1, hemoglobin 12.2. Platelets are normal. Basic metabolic panel is within normal limits. Stool occult blood was negative. IMPRESSION: 1. This is a patient with chronic epigastric pain of several years' duration who presented to the hospital with chest pain, epigastric pain, nausea, vomiting that started early this morning. Pain has been progressively getting worse. He had an upper endoscopy by Dr. Pearl 4 weeks ago in August of 2019 which showed a small duodenal ulcer and gastritis. Biopsies were negative for H pylori infection. He has been maintained on Protonix 40 mg twice daily as well as Carafate 1 gram 4 times daily and still remains symptomatic. He also had a CT of the abdomen and pelvis done on an outpatient basis 2 weeks ago that was unremarkable. 2. Atypical chest pain. EKG negative. 3. Chronic back pain. RECOMMENDATIONS: 1. Clear liquid diet. 2. PPIs b.i.d. 3. Zofran as needed. 4. No plans for any endoscopic intervention. Thank you for this consultation. Will follow closely during his hospital stay. MMODL / IJN: [id number] /
[2019-10-14] MEDS: CARVEDILOL 12.5 MG TAB PO SCH (18:07)
[2019-10-14] MEDS: FLUTICASONE 50MCG/SPRAY NASAL 16GM EA NOSTRIL SCH ×2 (19:49→20:04)
[2019-10-14] MEDS: PREGABALIN 75 MG CAP PO SCH (19:50)
[2019-10-14] MEDS: PANTOPRAZOLE 40 MG/10 ML VIAL IVP SCH (20:00)
[2019-10-14] MEDS: cloNIDine HCL 0.1 MG TAB PO SCH (20:59)
[2019-10-14] MEDS: amLODIPine 5 MG TAB PO SCH (20:59)
[2019-10-14] MEDS ORDERED: ATORVASTATIN 80 MG TAB PO SCH (21:00)
[2019-10-15] MEDS: HYDROmorphone 2 MG TAB PO PRN ×2 (05:02→12:50)
[2019-10-15] MEDS: ONDANSETRON 4 MG/2 ML VIAL IVP PRN ×2 (05:05→12:50)
[2019-10-15 07:02] VITALS: BP 168/97; PULSE 102; RESP 18; TEMP 98.2
[2019-10-15] MEDS ORDERED: LISINOPRIL 20 MG TAB PO SCH (09:00)
[2019-10-15] MEDS: MORPHINE SULFATE ER 30 MG TABLET PO SCH (09:00)
[2019-10-15] MEDS ORDERED: PRASUGREL 10 MG TAB PO SCH (09:00)
[2019-10-15] MEDS: PANTOPRAZOLE 40 MG/10 ML VIAL IVP SCH (09:00)
[2019-10-15] MEDS ORDERED: EZETIMIBE 10 MG TAB PO SCH (09:00)
[2019-10-15] MEDS ORDERED: ASPIRIN 81 MG PO SCH (09:00)
[2019-10-15] MEDS: DICYCLOMINE 20 MG TAB PO SCH (09:01)
[2019-10-15] MEDS: cloNIDine HCL 0.1 MG TAB PO SCH (09:01)
[2019-10-15] MEDS: CARVEDILOL 12.5 MG TAB PO SCH (09:01)
[2019-10-15] MEDS: SUCRALFATE 1 GM TAB PO SCH (09:01)
[2019-10-15] MEDS: amLODIPine 5 MG TAB PO SCH (09:01)
[2019-10-15] MEDS: PREGABALIN 75 MG CAP PO SCH (09:02)
[2019-10-15] MEDS: FLUTICASONE 50MCG/SPRAY NASAL 16GM EA NOSTRIL SCH (10:08)
--- NOTE | 2019-10-15 11:44 | CONS ---
CONSULTATION Mr. Johnson is a 63-year-old male with a history of coronary artery disease, multiple admission to the hospital with symptoms of recurrent chest discomfort. He presented with symptoms of chest discomfort as well as symptoms of nausea and vomiting. He has underwent prior percutaneous revascularization of his LAD and diagonal branch and has had a repeat cardiac catheterization in April of 2019 that revealed no evidence of significant progression of disease. His discomfort started at rest, associated with chest discomfort, arm discomfort and jaw discomfort in addition to nausea and vomiting and abdominal pain. He continues to have persistent headache from taking the nitroglycerin. He has some palpitation. No syncope. He said that he has occasional peripheral edema. Patient has a multiple admission was chest discomfort of unclear etiology. It was not felt that it was ischemic in etiology. He has been seen by Dr. Simmons because of the nausea and vomiting. He has underwent endoscopy by Dr. Pearl recently. His coronary risk factors are remarkable for hypertension, hyperlipidemia, he is nondiabetic. He has not been smoking at this time. MEDICATIONS: Include aspirin, Lipitor 80 mg daily, Coreg 12.5 mg twice a day, Zetia 10 mg daily, Dilaudid, lisinopril 40 mg daily, Effient 10 mg daily, Carafate, Norvasc 5 mg twice a day, Catapres 0.1 mg twice a day. PHYSICAL EXAMINATION: Blood pressure 132/90 with a heart RATE in 70s. HEAD: Normocephalic. EYES: Sclerae nonicteric. NECK: Good upstroke, no bruit, no shunts. CHEST: Clear to auscultation. HEART: Regular rate and rhythm. S1, S2. No S3. No S4. No rub. ABDOMEN: Soft, nontender. Positive bowel sounds, no organomegaly. EXTREMITIES: No edema, intact pulses. LAB DATA: Revealed BUN and creatinine of 12 and 0.62. Troponin less than 0.012. Hemoglobin 12.2, white blood cell of 3.1. EKG revealed a sinus mechanism, normal axis, intervals, normal echocardiogram. Cervical spine was done, revealed no acute fracture. Chest x-ray shows no acute infiltrate. IMPRESSION: 1. Chest discomfort, atypical for ischemic heart disease, noncardiac. 2. History of coronary artery disease, stable. 3. Nausea and vomiting. 4. Hypertension. 5. Hyperlipidemia. RECOMMENDATION: From the cardiac standpoint, no further cardiac workup is needed at this time. The patient will follow up as an outpatient with Dr. Go. Thank you for this consult. MMODL / IJN: [id number] /
[2019-10-15] MEDS ORDERED: ACETAMINOPHEN TAB 325 MG TAB PO PRN (11:52)
[2019-10-15] MEDS ORDERED: PANTOPRAZOLE 40 MG TABLET PO SCH (17:30)
== END 2019-10-15 13:06 | disposition home or self-care (01) ==
LOC: EC 08:16 → 1SOBS 11:15
PROVIDERS: ADMIT Family Medicine; ATTEND Family Medicine
DX: R07.9 Chest pain, unspecified (principal); E03.9 Hypothyroidism, unspecified; E78.5 Hyperlipidemia, unspecified; F11.20 Opioid dependence, uncomplicated; G89.4 Chronic pain syndrome; I10 Essential (primary) hypertension; I25.10 Atherosclerotic heart disease of native coronary artery without angina pectoris; J44.9 Chronic obstructive pulmonary disease, unspecified; K21.0 Gastro-esophageal reflux disease with esophagitis; K26.4 Chronic or unspecified duodenal ulcer with hemorrhage; K29.70 Gastritis, unspecified, without bleeding; K29.80 Duodenitis without bleeding; K64.9 Unspecified hemorrhoids; M47.812 Spondylosis without myelopathy or radiculopathy, cervical region; M54.10 Radiculopathy, site unspecified; Z79.02 Long term (current) use of antithrombotics/antiplatelets; Z79.82 Long term (current) use of aspirin; Z79.899 Other long term (current) drug therapy; Z80.6 Family history of leukemia; Z82.49 Family history of ischemic heart disease and other diseases of the circulatory system; Z82.5 Family history of asthma and other chronic lower respiratory diseases; Z86.718 Personal history of other venous thrombosis and embolism; Z87.11 Personal history of peptic ulcer disease; Z87.891 Personal history of nicotine dependence; Z95.5 Presence of coronary angioplasty implant and graft; Z98.41 Cataract extraction status, right eye; Z79.51 Long term (current) use of inhaled steroids
CPT/HCPCS: 36415; 71046; 72125; 80053; 82272; 83735; 83880; 84484; 85025; 85379; 85610; 85730; 93005; 96374; 96375; 96376; 99285

== ENCOUNTER 2019-11-05 09:06 | Emergency (ER) | payer MEDICARE ==
[2019-11-05] MEDS ORDERED: ONDANSETRON 4 MG/2 ML VIAL IVP STA (09:51)
[2019-11-05] MEDS ORDERED: SODIUM CHLORIDE 0.9% 1,000 ML IV ONE (09:51)
[2019-11-05] MEDS ORDERED: cloNIDine 0.2 MG/24HR PATCH TRANSDERM STA (09:52)
[2019-11-05] MEDS ORDERED: MORPHINE SULFATE 4 MG/ML SYRINGE IVP STA (09:53)
[2019-11-05] MEDS ORDERED: MORPHINE SULFATE 4 MG/ML SYRINGE IM STA (10:13)
[2019-11-05] MEDS ORDERED: ONDANSETRON 4 MG/2 ML VIAL IM STA (10:13)
--- NOTE | 2019-11-05 10:42 | ED ---
General Adult HPI - General Chief complaint: Nausea/Vomiting/Diarrhea Stated complaint: Withdrawls Time Seen by Provider: 11/05/19 09:24 Source: patient, RN notes reviewed, old records reviewed Mode of arrival: ambulatory Limitations: no limitations - History of Present Illness Initial comments: Salomon is a 63-year-old male presents restaurant nausea vomiting, concern for going through withdrawals. Patient reports his been out of his morphine and Dilaudid that he has prescribed by his orthopedic patient financial services specialist. Patient reports that he has a hard IV stick. Patient states that he has been treated for withdrawals the past emergency room. Patient states that he's had no other changes in his pain reports this pain is related to his chronic back and neck pain. Patient denies any fevers or chills or other complaints. - Related Data Home Medications Medication Instructions Recorded Confirmed Aspirin 81 mg PO DAILY 01/21/17 10/14/19 Fluticasone Nasal [place] [Flonase 1 spray EA NOSTRIL BID 04/20/17 10/14/19 Nasal [place]] Morphine Sulfate ER [Ms Contin] 30 mg PO TID 10/10/17 10/14/19 tiZANidine [Zanaflex] 4 mg PO TID PRN 02/26/18 10/14/19 Prasugrel [Effient] 10 mg PO DAILY 07/02/19 10/14/19 HYDROmorphone [Dilaudid] 2 mg PO TID PRN 07/30/19 10/14/19 Loperamide [Imodium] 2 - 4 mg PO QID PRN 07/30/19 10/14/19 Previous Rx's Medication Instructions Recorded Atorvastatin [Lipitor] 80 mg PO HS #30 tab 10/12/17 Carvedilol [Coreg*] 12.5 mg PO BID-W/MEALS #60 tab 02/08/19 cloNIDine HCL [Catapres] 0.1 mg PO BID #60 tab 02/08/19 Ezetimibe [Zetia] 10 mg PO DAILY #30 tab 05/24/19 amLODIPine [Norvasc] 5 mg PO BID #60 tab 05/24/19 Nitroglycerin Sl Tabs [Nitrostat] 0.4 mg SUBLINGUAL Q5M PRN #20 tab 07/02/19 Lisinopril 40 mg PO DAILY #14 tab 07/30/19 Sucralfate [Carafate] 1 gm PO TID #42 tablet 08/23/19 Ondansetron Odt [Zofran ODT] 4 mg PO Q8HR PRN #10 tab 09/13/19 Pantoprazole Sodium [Protonix] 40 mg PO AC-BID #60 tablet. 10/15/19 Dicyclomine [Bentyl] 20 mg PO TID #90 tablet 10/16/19 Ondansetron Odt [Zofran Odt] 4 mg PO Q8HR PRN #12 tab 11/05/19 Allergies Allergy/AdvReac Type Severity Reaction Status Date / Time ibuprofen [From Motrin] Allergy Rash/Hives Verified 11/05/19 09:18 ketorolac tromethamine Allergy Rash/Hives Verified 11/05/19 09:18 [From Toradol] Review of Systems ROS Statement: Those systems with pertinent positive or pertinent negative responses have been documented in the HPI. ROS Other: All systems not noted in ROS Statement are negative. Past Medical History Past Medical History: Coronary Artery Disease (CAD), Chest Pain / Angina, COPD, Deep Vein Thrombosis (DVT), GERD/Reflux, Hyperlipidemia, Hypertension, Osteoarthritis (OA), Thyroid Disorder Additional Past Medical History / Comment(s): Occasional palpitations, gastritis, small hiatal hernia, diverticular dx, pt states years ago he had PUD, chronic low back pain, chronic pain syndrome, migraines, DVT L arm, numbness/tingling bilateral lower legs, bilateral past R hand fracture, arthritis multiple joints, hyperthyroid, sinus problems. History of Any Multi-Drug Resistant Organisms: None Reported Past Surgical History: Back Surgery, Cholecystectomy, Heart Catheterization With Stent, Orthopedic Surgery Additional Past Surgical History / Comment(s): EGDs/colonoscopies, multiple low back surgeries, bilateral arm and bilateral thigh surgeries for brown recluse spider bites with infection, morphine pain pump insertion and removal due to infection, PCI with stents, L rotator cuff repair, L knee arthroscopy, cervical fusion/cage, R cataract removal. Past Anesthesia/Blood Transfusion Reactions: No Reported Reaction Additional Past Anesthesia/Blood Transfusion Reaction / Comment(s): Pt states after cervical fusion he "" in the recovery room but does not know cause- he was"gone for 8 minutes" and states he was resusitated. Pt received blood after back surgery and tolerated it well. Date of Last Stent Placement:: 10/12/17 Past Psychological History: No Psychological Hx Reported Smoking Status: Former smoker Past Alcohol Use History: None Reported Past Drug Use History: None Reported - Past Family History Father Family Medical History: No Reported History Additional Family Medical History / Comment(s): Father had back problems. He lived to be 82 yrs old. Mother Family Medical History: Hypertension, Myocardial Infarction ([place]) Additional Family Medical History / Comment(s): Mother of a [place] at the age of 55yrs. Brother(s) Family Medical History: Cancer, COPD Additional Family Medical History / Comment(s): Leukemia General Exam - General Exam Comments Initial Comments: 63-year-old male. Alert and oriented. No distress. Limitations: no limitations General appearance: alert, in no apparent distress Head exam: Present: atraumatic, normocephalic, normal inspection Eye exam: Present: normal appearance, PERRL, EOMI. Absent: scleral icterus, conjunctival injection, periorbital swelling ENT exam: Present: normal exam, mucous membranes moist Neck exam: Present: normal inspection. Absent: tenderness, meningismus, lymphadenopathy Respiratory exam: Present: normal lung sounds bilaterally. Absent: respiratory distress, wheezes, rales, rhonchi, stridor Cardiovascular Exam: Present: regular rate, normal rhythm, normal heart sounds. Absent: systolic murmur, diastolic murmur, rubs, gallop, clicks GI/Abdominal exam: Present: soft, normal bowel sounds. Absent: distended, tenderness, guarding, rebound, rigid Back exam: Present: normal inspection Neurological exam: Present: alert, oriented X3, CN II-XII intact Psychiatric exam: Present: normal affect, normal mood Course Vital Signs 11/05/19 09:16 Temperature 98.0 F Pulse Rate 75 Respiratory 16 Rate Blood Pressure 154/100 O2 Sat by Pulse 97 Oximetry Medical Decision Making - Medical Decision Making 63-year-old male presented today for evaluation. Patient is here for concern for withdrawals from his morphine and Dilaudid. He has not his medications for the past 3 days. Complains of nausea and vomiting. Denies any other complaints of pain or symptoms as already described pain and withdrawal. He is given clonidine patch, IM morphine and Zofran. I did discuss trying IV the Patient is a very hard IV stick and refused further attempts. I discussed the Patient be discharged with clonidine patch. Discussed close follow-up with primary care doctor. He goes to his pain management doctor on the . Disposition Clinical Impression: Opiate withdrawal Disposition: HOME SELF-CARE Condition: Good Instructions (If sedation given, give patient instructions): Opioid Withdrawal (ED) Additional Instructions: Patient advised to use nausea medicine as prescribed. Follow-up with your pain management doctor. Prescriptions: Ondansetron Odt [Zofran Odt] 4 mg PO Q8HR PRN #12 tab PRN Reason: Nausea Is patient prescribed a controlled substance at d/c from ED?: No Referrals: None,Stated [Primary Care Provider] - 1-2 days Time of Disposition: 11:16
[2019-11-05] MEDS ORDERED: ACET/COD 300 MG/30 MG STARTER PACK 6 TAB BTL PO STA (11:16)
[2019-11-05 11:32] VITALS: BP 151/98; PULSE 94; RESP 18; TEMP 97.8
== END 2019-11-05 11:30 | disposition home or self-care (01) ==
LOC: EC 09:06
DX: F11.23 Opioid dependence with withdrawal (principal); R11.2 Nausea with vomiting, unspecified; I25.119 Atherosclerotic heart disease of native coronary artery with unspecified angina pectoris; J44.9 Chronic obstructive pulmonary disease, unspecified; I10 Essential (primary) hypertension; Z79.82 Long term (current) use of aspirin; Z79.51 Long term (current) use of inhaled steroids; Z79.899 Other long term (current) drug therapy; Z88.5 Allergy status to narcotic agent; Z88.6 Allergy status to analgesic agent; Z95.5 Presence of coronary angioplasty implant and graft; Z98.1 Arthrodesis status; Z86.718 Personal history of other venous thrombosis and embolism
CPT/HCPCS: 99284; 96372 ×2; J2270; J2405

== ENCOUNTER → 2019-11-12 | Outpatient (CLI) | payer MEDICARE ==
--- NOTE | 2019-11-12 12:23 | MR ---
EXAMINATION TYPE: MR knee LT wo con DATE OF EXAM: 11/12/2019 10:36 AM COMPARISON: Previous study dated 06/07/2012. HISTORY: Lt knee pain TECHNIQUE: Multiplanar, multiecho imaging of the knee is performed without IV contrast. FINDINGS: There is a small knee joint effusion. Grade 1 con malacia involving the weightbearing surface of the lateral Both menisci appear intact. Both the anterior and posterior cruciate ligaments appear intact. Both the medial and the lateral collateral ligament complexes are intact. Iliotibial band inserts nor evangelina upon Gerdy's tubercle. The popliteus muscle and tendon are normal. Both the quadriceps and patellar tendons are intact. There is only minimal swelling in the Hoffa fat space. Femoral condyle as well as the medial and lateral patellar facets. There is grade IV chondroma lacia involving the weightbearing surface of the medial femoral condyle. IMPRESSION: 1. CHONDROMALACIA DESCRIBED. 2. SMALL JOINT EFFUSION. 3. NO DEFINITE LIGAMENTOUS OR MENISCAL INJURY.
== END | disposition home or self-care (01) ==
LOC: RADMRIMAIN 09:45
PROVIDERS: ATTEND Orthopaedic Surgery
DX: M94.262 Chondromalacia, left knee (principal); M25.462 Effusion, left knee

== ENCOUNTER 2019-11-17 17:16 | Emergency (ER) | payer MEDICARE ==
[2019-11-17 18:05] VITALS: TEMP 98.3
[2019-11-17] MEDS ORDERED: ASPIRIN 81 MG PO STA (18:34)
[2019-11-17] MEDS ORDERED: MORPHINE SULFATE 4 MG/ML SYRINGE IV STA (18:34)
[2019-11-17] MEDS ORDERED: ONDANSETRON 4 MG/2 ML VIAL IVP STA (18:34)
--- NOTE | 2019-11-17 18:42 | ED ---
General Adult HPI - General Chief complaint: Chest Pain Stated complaint: Chest pain, swollen feet Time Seen by Provider: 11/17/19 18:09 Source: patient Mode of arrival: ambulatory - History of Present Illness Initial comments: 63-year-old male patient presents to the emergency department today for evaluation of chest pain and lower extremity edema. States that less than chest pain started around 3:30 this afternoon. Patient states that he's had swelling in the lower legs for the last week. Patient states his legs feel tight but are not particularly painful. Denies ever having symptoms similar to this. He is also reporting left-sided chest pain area denies radiation of the pain through to his back. States he does feel short of breath with ambulation. He denies any dizziness with states he has been having sweats. He is also reporting nausea but no vomiting. He is reporting cough with green sputum production. Denies fever or chills. Denies any abdominal pain, constipation, or diarrhea. States he does not have a history of heart failure but does have a history of coronary artery disease and has stents placed. Patient denies any recent rash, back pain, numbness, tingling, weakness, hematuria, dysuria, urinary urgency, urinary frequency, headache, visual changes, or any other complaints. - Related Data Home Medications Medication Instructions Recorded Confirmed Aspirin 81 mg PO DAILY 01/21/17 10/14/19 Fluticasone Nasal [place] [Flonase 1 spray EA NOSTRIL BID 04/20/17 10/14/19 Nasal [place]] Morphine Sulfate ER [Ms Contin] 30 mg PO TID 10/10/17 10/14/19 tiZANidine [Zanaflex] 4 mg PO TID PRN 02/26/18 10/14/19 Prasugrel [Effient] 10 mg PO DAILY 07/02/19 10/14/19 HYDROmorphone [Dilaudid] 2 mg PO TID PRN 07/30/19 10/14/19 Loperamide [Imodium] 2 - 4 mg PO QID PRN 07/30/19 10/14/19 Previous Rx's Medication Instructions Recorded Atorvastatin [Lipitor] 80 mg PO HS #30 tab 10/12/17 Carvedilol [Coreg*] 12.5 mg PO BID-W/MEALS #60 tab 02/08/19 cloNIDine HCL [Catapres] 0.1 mg PO BID #60 tab 02/08/19 Ezetimibe [Zetia] 10 mg PO DAILY #30 tab 05/24/19 amLODIPine [Norvasc] 5 mg PO BID #60 tab 05/24/19 Nitroglycerin Sl Tabs [Nitrostat] 0.4 mg SUBLINGUAL Q5M PRN #20 tab 07/02/19 Lisinopril 40 mg PO DAILY #14 tab 07/30/19 Sucralfate [Carafate] 1 gm PO TID #42 tablet 08/23/19 Ondansetron Odt [Zofran ODT] 4 mg PO Q8HR PRN #10 tab 09/13/19 Pantoprazole Sodium [Protonix] 40 mg PO AC-BID #60 tablet. 10/15/19 Dicyclomine [Bentyl] 20 mg PO TID #90 tablet 10/16/19 Ondansetron Odt [Zofran Odt] 4 mg PO Q8HR PRN #12 tab 11/05/19 Furosemide [Lasix] 20 mg PO DAILY #3 tablet 11/17/19 Allergies Allergy/AdvReac Type Severity Reaction Status Date / Time ibuprofen [From Motrin] Allergy Rash/Hives Verified 11/17/19 18:05 ketorolac tromethamine Allergy Rash/Hives Verified 11/17/19 18:05 [From Toradol] Review of Systems ROS Statement: Those systems with pertinent positive or pertinent negative responses have been documented in the HPI. ROS Other: All systems not noted in ROS Statement are negative. Past Medical History Past Medical History: Coronary Artery Disease (CAD), Chest Pain / Angina, COPD, Deep Vein Thrombosis (DVT), GERD/Reflux, Hyperlipidemia, Hypertension, Osteoarthritis (OA), Thyroid Disorder Additional Past Medical History / Comment(s): Occasional palpitations, gastritis, small hiatal hernia, diverticular dx, pt states years ago he had PUD, chronic low back pain, chronic pain syndrome, migraines, DVT L arm, numbness/tingling bilateral lower legs, bilateral past R hand fracture, arthritis multiple joints, hyperthyroid, sinus problems. History of Any Multi-Drug Resistant Organisms: None Reported Past Surgical History: Back Surgery, Cholecystectomy, Heart Catheterization With Stent, Orthopedic Surgery Additional Past Surgical History / Comment(s): EGDs/colonoscopies, multiple low back surgeries, bilateral arm and bilateral thigh surgeries for brown recluse spider bites with infection, morphine pain pump insertion and removal due to infection, PCI with stents, L rotator cuff repair, L knee arthroscopy, cervical fusion/cage, R cataract removal. Past Anesthesia/Blood Transfusion Reactions: No Reported Reaction Additional Past Anesthesia/Blood Transfusion Reaction / Comment(s): Pt states after cervical fusion he "" in the recovery room but does not know cause- he was"gone for 8 minutes" and states he was resusitated. Pt received blood after back surgery and tolerated it well. Date of Last Stent Placement:: 10/12/17 Past Psychological History: No Psychological Hx Reported Smoking Status: Former smoker Past Alcohol Use History: None Reported Past Drug Use History: None Reported - Past Family History Father Family Medical History: No Reported History Additional Family Medical History / Comment(s): Father had back problems. He lived to be 82 yrs old. Mother Family Medical History: Hypertension, Myocardial Infarction ([place]) Additional Family Medical History / Comment(s): Mother of a [place] at the age of 55yrs. Brother(s) Family Medical History: Cancer, COPD Additional Family Medical History / Comment(s): Leukemia General Exam General appearance: alert, in no apparent distress, other (This is a well- developed, well-nourished adult male patient in no acute distress. Vital signs upon presentation are temperature 98.3F, pulse 109, respirations 19, pulse ox 97% on room air.) Eye exam: Present: normal appearance, PERRL, EOMI. Absent: scleral icterus, conjunctival injection, periorbital swelling ENT exam: Present: normal exam, normal oropharynx, mucous membranes moist Respiratory exam: Present: normal lung sounds bilaterally. Absent: respiratory distress, wheezes, rales, rhonchi, stridor Cardiovascular Exam: Present: normal rhythm, tachycardia, normal heart sounds. Absent: systolic murmur, diastolic murmur, rubs, gallop, clicks GI/Abdominal exam: Present: soft, normal bowel sounds. Absent: distended, te nderness, guarding, rebound, rigid Extremities exam: Present: full ROM, normal capillary refill, other (There is edema noted to the bilateral lower legs and feet. 2+ pitting noted to the feet and ankles. Skin is otherwise warm and dry. Cap refills less than 3 seconds. Pedal and posttibial pulses are 2+ and equal bilaterally.). Absent: tenderness, pedal edema, joint swelling, calf tenderness Neurological exam: Present: alert, oriented X3, CN II-XII intact Psychiatric exam: Present: normal affect, normal mood Skin exam: Present: warm, dry, intact, normal color. Absent: rash Course Vital Signs 11/17/19 11/17/19 11/17/19 18:01 18:15 18:48 Temperature 98.3 F Pulse Rate 109 H Pulse Rate [ 110 H Nurse Practitioner Manager ] Respiratory 19 18 Rate Blood Pressure 164/98 O2 Sat by Pulse 97 Oximetry 11/17/19 19:29 Temperature Pulse Rate 104 H Pulse Rate [ Nurse Practitioner Manager ] Respiratory 16 Rate Blood Pressure 166/98 O2 Sat by Pulse 97 Oximetry EKG Findings - EKG Comments: EKG Findings:: EKG obtained at 1725 shows sinus tachycardia with a ventricular rate of 112, IA interval 150, QRS duration 86, QT 318, QTC 434. No evidence of ST elevation or depression. Medical Decision Making - Medical Decision Making 64-year-old male patient presents to the emergency department today for evaluation of chest pain and lower leg edema. Physical examination reveals clear equal lung sounds. There is 2+ pitting edema noted to the bilateral lower leg and feet. Neurovascular status is intact. No calf tenderness. Labs reviewed and are unremarkable. BNP is normal. Troponin is negative. Chest x- ray shows no acute cardiopulmonary process. Patient will be given JOHNNY hose and a dose of Lasix in the emergency room. We'll continue Lasix for 3 days. He is instructed to follow-up with his primary care physician for recheck in 1-2 days. He is instructed to follow-up with his procurement professional logistics for further evaluation as soon as possible. Return parameters discussed in detail. He verbalizes understanding and agrees with this plan. - Lab Data Result diagrams: 11/17/19 18:30 11/17/19 18:30 Lab Results 11/17/19 11/17/19 11/17/19 Range/Units 18:30 18:30 18:30 WBC 4.2 (3.8-10.6) k/uL RBC 4.75 (4.30-5.90) m/uL Hgb 13.8 (13.0-17.5) gm/dL Hct 42.5 (39.0-53.0) % MCV 89.4 (80.0-100.0) fL MCH 29.0 (25.0-35.0) pg MCHC 32.5 (31.0-37.0) g/dL RDW 13.6 (11.5-15.5) % Plt Count 331 (150-450) k/uL Neutrophils % 69 % Lymphocytes % 21 % Monocytes % 5 % Eosinophils % 2 % Basophils % 0 % Neutrophils # 2.9 (1.3-7.7) k/uL Lymphocytes # 0.9 L (1.0-4.8) k/uL Monocytes # 0.2 (0-1.0) k/uL Eosinophils # 0.1 (0-0.7) k/uL Basophils # 0.0 (0-0.2) k/uL PT (9.0-12.0) sec INR (<1.2) APTT (22.0-30.0) sec Sodium 137 (137-145) mmol/L Potassium 4.7 (3.5-5.1) mmol/L Chloride 104 (98-107) mmol/L Carbon Dioxide 23 (22-30) mmol/L Anion Gap 10 mmol/L BUN 10 (9-20) mg/dL Creatinine 0.64 L (0.66-1.25) mg/dL Est GFR (CKD-EPI)AfAm >90 (>60 ml/min/1.73 sqM) Est GFR (CKD-EPI)NonAf >90 (>60 ml/min/1.73 sqM) Glucose 130 H (74-99) mg/dL Calcium 9.7 (8.4-10.2) mg/dL Magnesium 2.1 (1.6-2.3) mg/dL Total Bilirubin 0.3 (0.2-1.3) mg/dL AST 24 (17-59) U/L ALT 10 (4-49) U/L Alkaline Phosphatase 102 (38-126) U/L Troponin I (0.000-0.034) ng/mL NT-Pro-B Natriuret Pep 41 pg/mL Total Protein 7.9 (6.3-8.2) g/dL Albumin 4.8 (3.5-5.0) g/dL 11/17/19 11/17/19 Range/Units 18:30 18:30 WBC (3.8-10.6) k/uL RBC (4.30-5.90) m/uL Hgb (13.0-17.5) gm/dL Hct (39.0-53.0) % MCV (80.0-100.0) fL MCH (25.0-35.0) pg MCHC (31.0-37.0) g/dL RDW (11.5-15.5) % Plt Count (150-450) k/uL Neutrophils % % Lymphocytes % % Monocytes % % Eosinophils % % Basophils % % Neutrophils # (1.3-7.7) k/uL Lymphocytes # (1.0-4.8) k/uL Monocytes # (0-1.0) k/uL Eosinophils # (0-0.7) k/uL Basophils # (0-0.2) k/uL PT 9.4 (9.0-12.0) sec INR 0.9 (<1.2) APTT 25.9 (22.0-30.0) sec Sodium (137-145) mmol/L Potassium (3.5-5.1) mmol/L Chloride (98-107) mmol/L Carbon Dioxide (22-30) mmol/L Anion Gap mmol/L BUN (9-20) mg/dL Creatinine (0.66-1.25) mg/dL Est GFR (CKD-EPI)AfAm (>60 ml/min/1.73 sqM) Est GFR (CKD-EPI)NonAf (>60 ml/min/1.73 sqM) Glucose (74-99) mg/dL Calcium (8.4-10.2) mg/dL Magnesium (1.6-2.3) mg/dL Total Bilirubin (0.2-1.3) mg/dL AST (17-59) U/L ALT (4-49) U/L Alkaline Phosphatase (38-126) U/L Troponin I <0.012 (0.000-0.034) ng/mL NT-Pro-B Natriuret Pep pg/mL Total Protein (6.3-8.2) g/dL Albumin (3.5-5.0) g/dL - Radiology Data Radiology results: report reviewed, image reviewed Disposition Clinical Impression: Chest pain, Lower extremity edema Disposition: HOME SELF-CARE Condition: Good Instructions (If sedation given, give patient instructions): Chest Pain (ED), Leg Edema (ED) Additional Instructions: Use JOHNNY hose while awake, take off while sleeping. Keep legs elevated as much as possible. Take Lasix as directed. Follow-up with her primary care physician for recheck in 1-2 days. Follow-up with her procurement professional logistics for recheck as soon as possible. Return to the emergency department immediately for any new, wo rsening, or concerning symptoms. Prescriptions: Furosemide [Lasix] 20 mg PO DAILY #3 tablet Is patient prescribed a controlled substance at d/c from ED?: No Referrals: None,Stated [Primary Care Provider] - 1-2 days Time of Disposition: 19:53
[2019-11-17 18:56] LABS: ALT 10 U/L (4-49); AST 24 U/L (17-59); African American GFR (CKD) >90 (>60 ml/min/1.73 sqM); Albumin 4.8 g/dL (3.5-5.0); Alkaline Phosphatase 102 U/L (38-126); Anion Gap 10 mmol/L; Blood Urea Nitrogen 10 mg/dL (9-20); Calcium 9.7 mg/dL (8.4-10.2); Carbon Dioxide 23 mmol/L (22-30); Chloride 104 mmol/L (98-107); Glucose 130 mg/dL (74-99); Magnesium 2.1 mg/dL (1.6-2.3); Non-African American GFR(CKD) >90 (>60 ml/min/1.73 sqM); Potassium 4.7 mmol/L (3.5-5.1); Sodium 137 mmol/L (137-145); Total Bilirubin 0.3 mg/dL (0.2-1.3); Total Protein 7.9 g/dL (6.3-8.2)
[2019-11-17 19:02] LABS: INR 0.9 (<1.2); Partial Thromboplastin Time 25.9 sec (22.0-30.0); Prothrombin Time 9.4 sec (9.0-12.0)
--- NOTE | 2019-11-17 19:06 | XR ---
EXAMINATION TYPE: XR chest 2V DATE OF EXAM: 11/17/2019 COMPARISON: 10/14/2019 HISTORY: Chest pain TECHNIQUE: 2 views. Heart is normal. Lungs are clear. Costophrenic angles are clear. Bony thorax is intact. There are tori st leads. IMPRESSION: No active cardiopulmonary disease. No change.
[2019-11-17 19:09] LABS: Basophils % (A) 0 %; Eosinophils # (A) 0.1 k/uL (0-0.7); Eosinophils % (A) 2 %; HCT 42.5 % (39.0-53.0); HGB 13.8 gm/dL (13.0-17.5); Lymphocytes # (A) 0.9 k/uL (1.0-4.8); Lymphocytes % (A) 21 %; MCHC 32.5 g/dL (31.0-37.0); MCV 89.4 fL (80.0-100.0); Mean Platelet Volume 6.2; Monocytes # (A) 0.2 k/uL (0-1.0); Monocytes % (A) 5 %; Neutrophils # (A) 2.9 k/uL (1.3-7.7); Neutrophils % (A) 69 %; Platelet Count 331 k/uL (150-450); RBC 4.75 m/uL (4.30-5.90); RDW 13.6 % (11.5-15.5); WBC 4.2 k/uL (3.8-10.6)
[2019-11-17 19:30] VITALS: RESP 16
[2019-11-17] MEDS ORDERED: FUROSEMIDE 10 MG/ML 4 ML VIAL IV STA (19:44)
[2019-11-17 20:01] VITALS: BP 169/98; PULSE 99
== END 2019-11-17 20:00 | disposition home or self-care (01) ==
LOC: EC 17:16
DX: R07.9 Chest pain, unspecified (principal); R60.0 Localized edema; R06.02 Shortness of breath; I25.119 Atherosclerotic heart disease of native coronary artery with unspecified angina pectoris; J44.9 Chronic obstructive pulmonary disease, unspecified; I10 Essential (primary) hypertension; Z79.82 Long term (current) use of aspirin; Z79.51 Long term (current) use of inhaled steroids; Z79.899 Other long term (current) drug therapy; Z88.6 Allergy status to analgesic agent; Z88.5 Allergy status to narcotic agent; Z86.718 Personal history of other venous thrombosis and embolism; Z87.891 Personal history of nicotine dependence; Z95.5 Presence of coronary angioplasty implant and graft
CPT/HCPCS: 36415; 93005; 83880; 80053; 83735; 84484; 85025; 85610; 85730; 71046; 99285; 96374; 96375 ×2; J2270; J1940; J2405

== ENCOUNTER 2019-12-30 14:34 | Emergency (ER) | payer MEDICARE ==
[2019-12-30] MEDS ORDERED: SODIUM CHLORIDE 0.9% 500 ML 500 ML IV STA (15:00)
[2019-12-30] MEDS ORDERED: HYDROmorphone 0.5 MG/0.5 ML SYRINGE IVP STA ×2 (15:02→17:55)
[2019-12-30] MEDS ORDERED: PANTOPRAZOLE 40 MG/10 ML VIAL IVP STA (15:02)
--- NOTE | 2019-12-30 15:48 | ED ---
Abdominal Pain HPI - General Source: patient Mode of arrival: ambulatory Limitations: no limitations <Mary Young - Last Filed: 12/30/19 17:57> <Haresh Baker - Last Filed: 12/30/19 20:20> - General Chief Complaint: Abdominal Pain Stated Complaint: blood in stool Time Seen by Provider: 12/30/19 14:50 - History of Present Illness Initial Comments: 64yo male on effient for CAD on Effient presents emergency department today for epigastric pain and dark stools. Patient states that for the past 2 days he has had dark stools and epigastric pain that began today. Patient states that he has not had bright red stools. Patient states he has had an episode of vomiting denies emesis. Patient denies any chest pain shortness of breath and leg swelling jaw pain or arm pain and back pain. Patient denies any radiation of the pain patient does take Protonix outpatient. Patient has no other complaints appears well-nourished arrival no vomiting upon arrival into the emergency department. VS stable. (Mary Young) - Related Data Home Medications Medication Instructions Recorded Confirmed Aspirin 81 mg PO DAILY 01/21/17 10/14/19 Fluticasone Nasal [place] [Flonase 1 spray EA NOSTRIL BID 04/20/17 10/14/19 Nasal [place]] Morphine Sulfate ER [Ms Contin] 30 mg PO TID 10/10/17 10/14/19 tiZANidine [Zanaflex] 4 mg PO TID PRN 02/26/18 10/14/19 Prasugrel [Effient] 10 mg PO DAILY 07/02/19 10/14/19 HYDROmorphone [Dilaudid] 2 mg PO TID PRN 07/30/19 10/14/19 Loperamide [Imodium] 2 - 4 mg PO QID PRN 07/30/19 10/14/19 Previous Rx's Medication Instructions Recorded Atorvastatin [Lipitor] 80 mg PO HS #30 tab 10/12/17 Carvedilol [Coreg*] 12.5 mg PO BID-W/MEALS #60 tab 02/08/19 cloNIDine HCL [Catapres] 0.1 mg PO BID #60 tab 02/08/19 Ezetimibe [Zetia] 10 mg PO DAILY #30 tab 05/24/19 amLODIPine [Norvasc] 5 mg PO BID #60 tab 05/24/19 Nitroglycerin Sl Tabs [Nitrostat] 0.4 mg SUBLINGUAL Q5M PRN #20 tab 07/02/19 Lisinopril 40 mg PO DAILY #14 tab 07/30/19 Sucralfate [Carafate] 1 gm PO TID #42 tablet 08/23/19 Ondansetron Odt [Zofran ODT] 4 mg PO Q8HR PRN #10 tab 09/13/19 Pantoprazole Sodium [Protonix] 40 mg PO AC-BID #60 tablet. 10/15/19 Dicyclomine [Bentyl] 20 mg PO TID #90 tablet 10/16/19 Ondansetron Odt [Zofran Odt] 4 mg PO Q8HR PRN #12 tab 11/05/19 Furosemide [Lasix] 20 mg PO DAILY #3 tablet 11/17/19 Dicyclomine [Bentyl] 20 mg PO QID #12 tablet 12/30/19 Allergies Allergy/AdvReac Type Severity Reaction Status Date / Time ibuprofen [From Motrin] Allergy Rash/Hives Verified 12/30/19 14:40 ketorolac tromethamine Allergy Rash/Hives Verified 12/30/19 14:40 [From Toradol] Review of Systems ROS Other: All systems not noted in ROS Statement are negative. <Mary Young - Last Filed: 12/30/19 17:57> ROS Other: All systems not noted in ROS Statement are negative. <Haresh Baker - Last Filed: 12/30/19 20:20> ROS Statement: Those systems with pertinent positive or pertinent negative responses have been documented in the HPI. Past Medical History Past Medical History: Coronary Artery Disease (CAD), Chest Pain / Angina, COPD, Deep Vein Thrombosis (DVT), GERD/Reflux, Hyperlipidemia, Hypertension, Osteoarthritis (OA), Thyroid Disorder Additional Past Medical History / Comment(s): Occasional palpitations, gastritis, small hiatal hernia, diverticular dx, pt states years ago he had PUD, chronic low back pain, chronic pain syndrome, migraines, DVT L arm, numbness/tingling bilateral lower legs, bilateral past R hand fracture, arth ritis multiple joints, hyperthyroid, sinus problems. History of Any Multi-Drug Resistant Organisms: None Reported Past Surgical History: Back Surgery, Cholecystectomy, Heart Catheterization With Stent, Orthopedic Surgery Additional Past Surgical History / Comment(s): EGDs/colonoscopies, multiple low back surgeries, bilateral arm and bilateral thigh surgeries for brown recluse spider bites with infection, morphine pain pump insertion and removal due to infection, PCI with stents, L rotator cuff repair, L knee arthroscopy, cervical fusion/cage, R cataract removal. Past Anesthesia/Blood Transfusion Reactions: No Reported Reaction Additional Past Anesthesia/Blood Transfusion Reaction / Comment(s): Pt states after cervical fusion he "" in the recovery room but does not know cause- he was"gone for 8 minutes" and states he was resusitated. Pt received blood after back surgery and tolerated it well. Date of Last Stent Placement:: 10/12/17 Past Psychological History: No Psychological Hx Reported Smoking Status: Former smoker Past Alcohol Use History: None Reported Past Drug Use History: None Reported - Past Family History Father Family Medical History: No Reported History Additional Family Medical History / Comment(s): Father had back problems. He lived to be 82 yrs old. Mother Family Medical History: Hypertension, Myocardial Infarction ([place]) Additional Family Medical History / Comment(s): Mother of a MA at the age of 55yrs. Brother(s) Family Medical History: Cancer, COPD Additional Family Medical History / Comment(s): Leukemia <Mary Young - Last Filed: 12/30/19 17:57> General Exam Limitations: no limitations <Mary Young - Last Filed: 12/30/19 17:57> - General Exam Comments Initial Comments: General: The patient is awake and alert, in no distress, and does not appear acutely ill. Eye: +3 mm pupils are equal, round and reactive to light, extra-ocular move ments are intact. No nystagmus. There is normal conjunctiva bilaterally. No signs of icterus. Ears, nose, mouth and throat: There are moist mucous membranes and no oral lesions. Neck: The neck is supple, there is no tenderness or JVD. Cardiovascular: There is a regular rate and rhythm. No murmur, rub or gallop is appreciated. Respiratory: Lungs are clear to auscultation, respirations are non-labored, breath sounds are equal. No wheezes, stridor, rales, or rhonchi. Gastrointestinal: Soft, non-distended, non-tender abdomen without masses or organomegaly noted. There is no rebound or guarding present. Musculoskeletal: Normal ROM, no tenderness. Strength 5/5. Sensation intact. Radidal pulses equal bilaterally 2+. Neurological: A&O x 3. CN II-XII intact grossly, There are no obvious motor or sensory deficits. Coordination appears grossly intact. Speech is normal. Skin: Skin is warm and dry and no rashes or lesions are noted. Psychiatric: Cooperative, appropriate mood & affect, normal judgment. (Mary Young) Course Vital Signs 12/30/19 12/30/19 14:38 18:28 Temperature 97.6 F 98.7 F Pulse Rate 96 85 Respiratory 18 20 Rate Blood Pressure 159/87 142/92 O2 Sat by Pulse 98 100 Oximetry Medical Decision Making - Lab Data Result diagrams: 12/30/19 16:34 12/30/19 16:34 <Mary Young - Last Filed: 12/30/19 17:57> - Lab Data Result diagrams: 12/30/19 16:34 12/30/19 16:34 <Haresh Baker - Last Filed: 12/30/19 20:20> - Medical Decision Making 64year-old male well-known to the emergency department presenting today for chief complaint of epigastric pain patient is asking for strong pain meds. Patient has mild-moderate tenderness of epigastric region on exam. Eyes chest pains and shortness of breath EKG no acute findings. Patient troponin negative. Patient occult (-). Hgb and BP stable. No vomiting or loose stools in the ER. No tachycardia. Patient appears well, CT show mild dilation of the pancreatic duct without mass. Patient instructed to f/u with GI and PCP. Return parameters for worsening symptoms or pain patient verbalizes understanding case was discussed in detail including past medical history physical examination laboratory studies and VS [facility] Dr. Baker who recommends discharge of this patient. Patient discharged appearing well. (Mary Young) - Lab Data Lab Results 12/30/19 12/30/19 12/30/19 Range/Units 16:17 16:25 16:34 WBC (3.8-10.6) k/uL RBC (4.30-5.90) m/uL Hgb (13.0-17.5) gm/dL Hct (39.0-53.0) % MCV (80.0-100.0) fL MCH (25.0-35.0) pg MCHC (31.0-37.0) g/dL RDW (11.5-15.5) % Plt Count (150-450) k/uL Neutrophils % % Lymphocytes % % Monocytes % % Eosinophils % % Basophils % % Neutrophils # (1.3-7.7) k/uL Lymphocytes # (1.0-4.8) k/uL Monocytes # (0-1.0) k/uL Eosinophils # (0-0.7) k/uL Basophils # (0-0.2) k/uL PT (9.0-12.0) sec INR (<1.2) APTT (22.0-30.0) sec Sodium 138 (137-145) mmol/L Potassium 4.2 (3.5-5.1) mmol/L Chloride 105 (98-107) mmol/L Carbon Dioxide 25 (22-30) mmol/L Anion Gap 8 mmol/L BUN 9 (9-20) mg/dL Creatinine 0.62 L (0.66-1.25) mg/dL Est GFR (CKD-EPI)AfAm >90 (>60 ml/min/1.73 sqM) Est GFR (CKD-EPI)NonAf >90 (>60 ml/min/1.73 sqM) Glucose 110 H (74-99) mg/dL Plasma Lactic Acid [place] (0.7-2.0) mmol/L Calcium 10.0 (8.4-10.2) mg/dL Total Bilirubin 0.6 (0.2-1.3) mg/dL AST 18 (17-59) U/L ALT 8 (4-49) U/L Alkaline Phosphatase 94 (38-126) U/L Troponin I (0.000-0.034) ng/mL Total Protein 8.2 (6.3-8.2) g/dL Albumin 4.9 (3.5-5.0) g/dL Amylase 101 (30-110) U/L Lipase 146 (23-300) U/L Urine Color Urine Appearance (Clear) Urine pH (5.0-8.0) Ur Specific [place] (1.001-1.035) Urine Protein (Negative) Urine Glucose (UA) (Negative) Urine Ketones (Negative) Urine Blood (Negative) Urine Nitrite (Negative) Urine Bilirubin (Negative) Urine Urobilinogen (<2.0) mg/dL Ur Leukocyte Esterase (Negative) Stool Occult Blood Negative (Negative) Blood Type Blood Type Confirm O Positive Blood Type Recheck Bld Type Recheck Status Antibody Screen Spec Expiration Date 12/30/19 12/30/19 12/30/19 Range/Units 16:34 16:34 16:34 WBC 4.5 (3.8-10.6) k/uL RBC 4.65 (4.30-5.90) m/uL Hgb 13.4 (13.0-17.5) gm/dL Hct 41.6 (39.0-53.0) % MCV 89.5 (80.0-100.0) fL MCH 28.8 (25.0-35.0) pg MCHC 32.2 (31.0-37.0) g/dL RDW 14.3 (11.5-15.5) % Plt Count 565 H (150-450) k/uL Neutrophils % 65 % Lymphocytes % 22 % Monocytes % 6 % Eosinophils % 2 % Basophils % 3 % Neutrophils # 2.9 (1.3-7.7) k/uL Lymphocytes # 1.0 (1.0-4.8) k/uL Monocytes # 0.3 (0-1.0) k/uL Eosinophils # 0.1 (0-0.7) k/uL Basophils # 0.1 (0-0.2) k/uL PT 10.3 (9.0-12.0) sec INR 1.0 (<1.2) APTT 23.6 (22.0-30.0) sec Sodium (137-145) mmol/L Potassium (3.5-5.1) mmol/L Chloride (98-107) mmol/L Carbon Dioxide (22-30) mmol/L Anion Gap mmol/L BUN (9-20) mg/dL Creatinine (0.66-1.25) mg/dL Est GFR (CKD-EPI)AfAm (>60 ml/min/1.73 sqM) Est GFR (CKD-EPI)NonAf (>60 ml/min/1.73 sqM) Glucose (74-99) mg/dL Plasma Lactic Acid Ros[place] 1.1 (0.7-2.0) mmol/L Calcium (8.4-10.2) mg/dL Total Bilirubin (0.2-1.3) mg/dL AST (17-59) U/L ALT (4-49) U/L Alkaline Phosphatase (38-126) U/L Troponin I (0.000-0.034) ng/mL Total Protein (6.3-8.2) g/dL Albumin (3.5-5.0) g/dL Amylase (30-110) U/L Lipase (23-300) U/L Urine Color Urine Appearance (Clear) Urine pH (5.0-8.0) Ur Specific [place] (1.001-1.035) Urine Protein (Negative) Urine Glucose (UA) (Negative) Urine Ketones (Negative) Urine Blood (Negative) Urine Nitrite (Negative) Urine Bilirubin (Negative) Urine Urobilinogen (<2.0) mg/dL Ur Leukocyte Esterase (Negative) Stool Occult Blood (Negative) Blood Type Blood Type Confirm Blood Type Recheck Bld Type Recheck Status Antibody Screen Spec Expiration Date 12/30/19 12/30/19 12/30/19 Range/Units 16:34 16:34 16:55 WBC (3.8-10.6) k/uL RBC (4.30-5.90) m/uL Hgb (13.0-17.5) gm/dL Hct (39.0-53.0) % MCV (80.0-100.0) fL MCH (25.0-35.0) pg MCHC (31.0-37.0) g/dL RDW (11.5-15.5) % Plt Count (150-450) k/uL Neutrophils % % Lymphocytes % % Monocytes % % Eosinophils % % Basophils % % Neutrophils # (1.3-7.7) k/uL Lymphocytes # (1.0-4.8) k/uL Monocytes # (0-1.0) k/uL Eosinophils # (0-0.7) k/uL Basophils # (0-0.2) k/uL PT (9.0-12.0) sec INR (<1.2) APTT (22.0-30.0) sec Sodium (137-145) mmol/L Potassium (3.5-5.1) mmol/L Chloride (98-107) mmol/L Carbon Dioxide (22-30) mmol/L Anion Gap mmol/L BUN (9-20) mg/dL Creatinine (0.66-1.25) mg/dL Est GFR (CKD-EPI)AfAm (>60 ml/min/1.73 sqM) Est GFR (CKD-EPI)NonAf (>60 ml/min/1.73 sqM) Glucose (74-99) mg/dL Plasma Lactic Acid [place] (0.7-2.0) mmol/L Calcium (8.4-10.2) mg/dL Total Bilirubin (0.2-1.3) mg/dL AST (17-59) U/L ALT (4-49) U/L Alkaline Phosphatase (38-126) U/L Troponin I <0.012 (0.000-0.034) ng/mL Total Protein (6.3-8.2) g/dL Albumin (3.5-5.0) g/dL Amylase (30-110) U/L Lipase (23-300) U/L Urine Color Light Yellow Urine Appearance Clear (Clear) Urine pH 7.0 (5.0-8.0) Ur Specific [place] 1.003 (1.001-1.035) Urine Protein Negative (Negative) Urine Glucose (UA) Negative (Negative) Urine Ketones Negative (Negative) Urine Blood Negative (Negative) Urine Nitrite Negative (Negative) Urine Bilirubin Negative (Negative) Urine Urobilinogen <2.0 (<2.0) mg/dL Ur Leukocyte Esterase Negative (Negative) Stool Occult Blood (Negative) Blood Type O Positive Blood Type Confirm Blood Type Recheck No Previous Record Bld Type Recheck Status CABO Indicated Antibody Screen NEGATIVE Spec Expiration Date 01/02/20202333 Disposition Is patient prescribed a controlled substance at d/c from ED?: No Time of Disposition: 17:56 <Mary Young - Last Filed: 12/30/19 17:57> <Haresh Baker - Last Filed: 12/30/19 20:20> Clinical Impression: Dark stools, Epigastric pain Disposition: HOME SELF-CARE Condition: Good Instructions (If sedation given, give patient instructions): Abdominal Pain (ED) Additional Instructions: Please use medication as discussed. Please follow-up with family doctor in the next 2 days-recommend follow-up with GI Dr. Simmons for endoscopy and evaluation of mild pancreatic ductal dilation , Thursday. Return for persistent pain. Continue protonix that were previously prescribed. Please return to emergency room if the symptoms increase or worsen or for any other concerns. Prescriptions: Dicyclomine [Bentyl] 20 mg PO QID #12 tablet Referrals: None,Stated [Primary Care Provider] - 1-2 days Laura Simmons MD [STAFF PHYSICIAN] - 1-2 days
[2019-12-30 16:50] LABS: Basophils # (A) 0.1 k/uL (0-0.2); Basophils % (A) 3 %; Eosinophils # (A) 0.1 k/uL (0-0.7); Eosinophils % (A) 2 %; HCT 41.6 % (39.0-53.0); HGB 13.4 gm/dL (13.0-17.5); Lymphocytes % (A) 22 %; MCH 28.8 pg (25.0-35.0); MCHC 32.2 g/dL (31.0-37.0); MCV 89.5 fL (80.0-100.0); Mean Platelet Volume 6.5; Monocytes # (A) 0.3 k/uL (0-1.0); Monocytes % (A) 6 %; Neutrophils # (A) 2.9 k/uL (1.3-7.7); Neutrophils % (A) 65 %; Platelet Count 565 k/uL (150-450); RBC 4.65 m/uL (4.30-5.90); RDW 14.3 % (11.5-15.5); WBC 4.5 k/uL (3.8-10.6)
[2019-12-30 16:58] LABS: Partial Thromboplastin Time 23.6 sec (22.0-30.0); Prothrombin Time 10.3 sec (9.0-12.0)
[2019-12-30 16:59] LABS: ALT 8 U/L (4-49); AST 18 U/L (17-59); African American GFR (CKD) >90 (>60 ml/min/1.73 sqM); Albumin 4.9 g/dL (3.5-5.0); Alkaline Phosphatase 94 U/L (38-126); Amylase 101 U/L (30-110); Anion Gap 8 mmol/L; Blood Urea Nitrogen 9 mg/dL (9-20); Carbon Dioxide 25 mmol/L (22-30); Chloride 105 mmol/L (98-107); Glucose 110 mg/dL (74-99); Non-African American GFR(CKD) >90 (>60 ml/min/1.73 sqM); Potassium 4.2 mmol/L (3.5-5.1); Sodium 138 mmol/L (137-145); Total Bilirubin 0.6 mg/dL (0.2-1.3); Total Protein 8.2 g/dL (6.3-8.2)
[2019-12-30 17:05] LABS: Appearance,Urine Clear (Clear); Bilirubin,Urine Negative (Negative); Blood,Urine Negative (Negative); Color,Urine Light Yellow; Glucose,Urine (UA) Negative (Negative); Ketones,Urine Negative (Negative); Leukocyte Esterase,Urine Negative (Negative); Nitrite,Urine Negative (Negative); Protein,Urine Negative (Negative); Specific Gravity,Urine 1.003 (1.001-1.035); Urobilinogen,Urine <2.0 mg/dL (<2.0)
--- NOTE | 2019-12-30 17:22 | CT ---
EXAMINATION TYPE: CT abdomen pelvis w con DATE OF EXAM: 12/30/2019 COMPARISON: 08/21/2019 HISTORY: epigastric pain, nausea, vomiting, diarrhea, bloody stool CT DLP: 903.7 mGycm Automated exposure control for dose reduction was used. CONTRAST: Performed with IV Contrast, patient injected with 100 mL of Isovue 300. Multiple axial sections were obtained from the diaphragm to the floor the pelvis with intravenous con trast. Lung bases are clear of consolidation. There is minimal subsegmental atelectasis right lung base. Hea rt size is normal. There are clips from cholecystectomy. Bile ducts are not dilated. Stomach is intact. Spleen is intact . There is no evidence of a pancreatic mass. The pancreatic duct however is moderately dilated. I see no mass at the pancreatic head. There is no adrenal mass. Kidneys show satisfactory contrast opacification. There is no hydronephrosi s. There is normal excretion on the delayed images. There is multilevel posterior fusion surgery in t he lumbosacral spine from L3 to S1. There is multilevel laminectomy defect. There is metal artifact. There is no mesenteric edema. There is no ascites or free air. There is no sign of a bowel obstructio n. There is no inguinal hernia. Bladder distends smoothly. Appendix is posterior and lateral and appears normal. I see no focal bone destruction. There is some hypertrophic osteoarthritis in the right hip joint IMPRESSION: Multilevel lumbar spine surgery. Normal appendix. Dilated pancreatic duct could relate to previous inflammatory disease. No obstructing mass seen. Dist al pancreatic duct measures 6 mm.
[2019-12-30] MEDS ORDERED: MAG HYDROX/AL HYDROX/SIMETH 30 ML, HYOSCYAMINE ELIXIR 10 ML, LIDOCAINE VISCOUS 2% 10 ML PO STA ×3 (17:27)
[2019-12-30] MEDS ORDERED: ONDANSETRON 4 MG/2 ML VIAL IVP STA (18:10)
[2019-12-30 20:25] VITALS: BP 140/86; PULSE 81; RESP 16; TEMP 98.2
== END 2019-12-30 20:25 | disposition home or self-care (01) ==
LOC: EC 14:34
DX: R10.13 Epigastric pain (principal); R19.5 Other fecal abnormalities; K86.89 Other specified diseases of pancreas; I25.119 Atherosclerotic heart disease of native coronary artery with unspecified angina pectoris; J44.9 Chronic obstructive pulmonary disease, unspecified; M19.90 Unspecified osteoarthritis, unspecified site; G89.4 Chronic pain syndrome; Z87.891 Personal history of nicotine dependence; Z88.6 Allergy status to analgesic agent; Z79.51 Long term (current) use of inhaled steroids; Z79.82 Long term (current) use of aspirin; Z79.891 Long term (current) use of opiate analgesic; Z79.899 Other long term (current) drug therapy; Z87.19 Personal history of other diseases of the digestive system; Z90.49 Acquired absence of other specified parts of digestive tract; Z95.5 Presence of coronary angioplasty implant and graft; Z98.1 Arthrodesis status
CPT/HCPCS: 36415; 93005; 86900; 86901; 80053; 82150; 83605; 83690; 84484; 85025; 85610; 85730; 86850; 82272; 81003; 74177; 99284; 96374; 96375 ×2; 96376; 96361; J2405; C9113; J1170; Q9967

== ENCOUNTER 2020-01-02 07:07 | Observation (INO) | payer MEDICARE ==
[2020-01-02] MEDS ORDERED: ONDANSETRON 4 MG/2 ML VIAL IVP STA ×2 (07:35→10:34)
[2020-01-02] MEDS ORDERED: PANTOPRAZOLE 40 MG/10 ML VIAL IVP STA (07:35)
--- NOTE | 2020-01-02 07:39 | ED ---
General Adult HPI - General Chief complaint: GI Bleed Stated complaint: Vomiting Time Seen by Provider: 01/02/20 07:17 Source: patient, RN notes reviewed, old records reviewed Mode of arrival: ambulatory Limitations: no limitations - History of Present Illness Initial comments: Patient is a pleasant 64-year-old male presenting to the emergency Department with complaints of hematemesis. Onset of symptoms was 3 days ago. Patient states he was in the emergency department and symptoms started following that. Patient complains of vomiting coffee-ground emesis several times and having dry heaves sometimes as well. Patient does have some discomfort in the epigastric region. Patient is also had several episodes of dark red blood per rectum. No rectal pain. No fevers. - Related Data Home Medications Medication Instructions Recorded Confirmed Aspirin 81 mg PO DAILY 01/21/17 10/14/19 Fluticasone Nasal [place] [Flonase 1 spray EA NOSTRIL BID 04/20/17 10/14/19 Nasal [place]] Morphine Sulfate ER [Ms Contin] 30 mg PO TID 10/10/17 10/14/19 tiZANidine [Zanaflex] 4 mg PO TID PRN 02/26/18 10/14/19 Prasugrel [Effient] 10 mg PO DAILY 07/02/19 10/14/19 HYDROmorphone [Dilaudid] 2 mg PO TID PRN 07/30/19 10/14/19 Loperamide [Imodium] 2 - 4 mg PO QID PRN 07/30/19 10/14/19 Previous Rx's Medication Instructions Recorded Atorvastatin [Lipitor] 80 mg PO HS #30 tab 10/12/17 Carvedilol [Coreg*] 12.5 mg PO BID-W/MEALS #60 tab 02/08/19 cloNIDine HCL [Catapres] 0.1 mg PO BID #60 tab 02/08/19 Ezetimibe [Zetia] 10 mg PO DAILY #30 tab 05/24/19 amLODIPine [Norvasc] 5 mg PO BID #60 tab 05/24/19 Nitroglycerin Sl Tabs [Nitrostat] 0.4 mg SUBLINGUAL Q5M PRN #20 tab 07/02/19 Lisinopril 40 mg PO DAILY #14 tab 07/30/19 Sucralfate [Carafate] 1 gm PO TID #42 tablet 08/23/19 Ondansetron Odt [Zofran ODT] 4 mg PO Q8HR PRN #10 tab 09/13/19 Pantoprazole Sodium [Protonix] 40 mg PO AC-BID #60 tablet. 10/15/19 Dicyclomine [Bentyl] 20 mg PO TID #90 tablet 10/16/19 Ondansetron Odt [Zofran Odt] 4 mg PO Q8HR PRN #12 tab 11/05/19 Furosemide [Lasix] 20 mg PO DAILY #3 tablet 11/17/19 Dicyclomine [Bentyl] 20 mg PO QID #12 tablet 12/30/19 Allergies Allergy/AdvReac Type Severity Reaction Status Date / Time ibuprofen [From Motrin] Allergy Rash/Hives Verified 01/02/20 07:11 ketorolac tromethamine Allergy Rash/Hives Verified 01/02/20 07:11 [From Toradol] Review of Systems ROS Statement: Those systems with pertinent positive or pertinent negative responses have been documented in the HPI. ROS Other: All systems not noted in ROS Statement are negative. Constitutional: Denies: fever Eyes: Denies: eye pain ENT: Denies: ear pain Respiratory: Denies: cough Cardiovascular: Denies: chest pain Endocrine: Denies: fatigue Gastrointestinal: Reports: as per HPI, abdominal pain, nausea, hematemesis Genitourinary: Denies: dysuria Musculoskeletal: Denies: back pain Skin: Denies: rash Neurological: Denies: weakness Past Medical History Past Medical History: Coronary Artery Disease (CAD), Chest Pain / Angina, COPD, Deep Vein Thrombosis (DVT), GERD/Reflux, Hyperlipidemia, Hypertension, Osteoarthritis (OA), Thyroid Disorder Additional Past Medical History / Comment(s): Occasional palpitations, gastritis, small hiatal hernia, diverticular dx, pt states years ago he had PUD, chronic low back pain, chronic pain syndrome, migraines, DVT L arm, numbness/tingling bilateral lower legs, bilateral past R hand fracture, arthritis multiple joints, hyperthyroid, sinus problems. History of Any Multi-Drug Resistant Organisms: None Reported Past Surgical History: Back Surgery, Cholecystectomy, Heart Catheterization With Stent, Orthopedic Surgery Additional Past Surgical History / Comment(s): EGDs/colonoscopies, multiple low back surgeries, bilateral arm and bilateral thigh surgeries for brown recluse spider bites with infection, morphine pain pump insertion and removal due to infection, PCI with stents, L rotator cuff repair, L knee arthroscopy, cervical fusion/cage, R cataract removal. Past Anesthesia/Blood Transfusion Reactions: No Reported Reaction Additional Past Anesthesia/Blood Transfusion Reaction / Comment(s): Pt states after cervical fusion he "" in the recovery room but does not know cause- he was"gone for 8 minutes" and states he was resusitated. Pt received blood after back surgery and tolerated it well. Date of Last Stent Placement:: 10/12/17 Past Psychological History: No Psychological Hx Reported Smoking Status: Former smoker Past Alcohol Use History: None Reported Past Drug Use History: None Reported - Past Family History Father Family Medical History: No Reported History Additional Family Medical History / Comment(s): Father had back problems. He lived to be 82 yrs old. Mother Family Medical History: Hypertension, Myocardial Infarction ([place]) Additional Family Medical History / Comment(s): Mother of a IA at the age of 55yrs. Brother(s) Family Medical History: Cancer, COPD Additional Family Medical History / Comment(s): Leukemia General Exam Limitations: no limitations General appearance: alert, in no apparent distress Head exam: Present: normocephalic Eye exam: Present: normal appearance, PERRL ENT exam: Present: normal oropharynx Neck exam: Present: normal inspection Respiratory exam: Present: normal lung sounds bilaterally Cardiovascular Exam: Present: regular rate, normal rhythm GI/Abdominal exam: Present: soft, tenderness (Mild epigastric tenderness), normal bowel sounds. Absent: distended, guarding, rebound, rigid Rectal exam: Present: normal inspection, other (No stool or blood on examination) Extremities exam: Present: normal inspection Neurological exam: Present: alert Psychiatric exam: Present: normal affect, normal mood Skin exam: Present: normal color Course Vital Signs 01/02/20 01/02/20 07:11 10:41 Temperature 97.4 F L Pulse Rate 92 72 Respiratory 18 20 Rate Blood Pressure 154/92 141/102 O2 Sat by Pulse 100 99 Oximetry Medical Decision Making - Medical Decision Making Patient reevaluated and resting comfortably in bed. Patient updated. Case was discussed in detail with Dr. Marcus, who will admit covering for hospital call. - Lab Data Result diagrams: 01/02/20 08:46 01/02/20 08:46 Lab Results 01/02/20 01/02/20 01/02/20 Range/Units 08:46 08:46 08:46 WBC 3.5 L (3.8-10.6) k/uL RBC 4.40 (4.30-5.90) m/uL Hgb 12.4 L (13.0-17.5) gm/dL Hct 39.9 (39.0-53.0) % MCV 90.8 (80.0-100.0) fL MCH 28.2 (25.0-35.0) pg MCHC 31.0 (31.0-37.0) g/dL RDW 14.7 (11.5-15.5) % Plt Count 453 H (150-450) k/uL Neutrophils % 64 % Lymphocytes % 24 % Monocytes % 7 % Eosinophils % 1 % Basophils % 2 % Neutrophils # 2.2 (1.3-7.7) k/uL Lymphocytes # 0.8 L (1.0-4.8) k/uL Monocytes # 0.3 (0-1.0) k/uL Eosinophils # 0.0 (0-0.7) k/uL Basophils # 0.1 (0-0.2) k/uL PT 10.0 (9.0-12.0) sec INR 1.0 (<1.2) APTT 23.2 (22.0-30.0) sec Sodium 139 (137-145) mmol/L Potassium 4.7 (3.5-5.1) mmol/L Chloride 106 (98-107) mmol/L Carbon Dioxide 25 (22-30) mmol/L Anion Gap 8 mmol/L BUN 6 L (9-20) mg/dL Creatinine 0.63 L (0.66-1.25) mg/dL Est GFR (CKD-EPI)AfAm >90 (>60 ml/min/1.73 sqM) Est GFR (CKD-EPI)NonAf >90 (>60 ml/min/1.73 sqM) Glucose 127 H (74-99) mg/dL Calcium 9.8 (8.4-10.2) mg/dL Total Bilirubin 0.4 (0.2-1.3) mg/dL AST 16 L (17-59) U/L ALT 8 (4-49) U/L Alkaline Phosphatase 82 (38-126) U/L Total Protein 7.4 (6.3-8.2) g/dL Albumin 4.5 (3.5-5.0) g/dL - Radiology Data Radiology results: image reviewed (Abdominal x-ray concerning for ileus) Disposition Clinical Impression: GI hemorrhage Disposition: ADMITTED IP TO THIS HOSP Is patient prescribed a controlled substance at d/c from ED?: No Referrals: None,Stated [Primary Care Provider] - 1-2 days Decision Time: 10:58
[2020-01-02 09:05] LABS: Basophils # (A) 0.1 k/uL (0-0.2); Basophils % (A) 2 %; Eosinophils % (A) 1 %; HCT 39.9 % (39.0-53.0); HGB 12.4 gm/dL (13.0-17.5); Lymphocytes # (A) 0.8 k/uL (1.0-4.8); Lymphocytes % (A) 24 %; MCH 28.2 pg (25.0-35.0); MCV 90.8 fL (80.0-100.0); Mean Platelet Volume 6.8; Monocytes # (A) 0.3 k/uL (0-1.0); Monocytes % (A) 7 %; Neutrophils # (A) 2.2 k/uL (1.3-7.7); Neutrophils % (A) 64 %; Platelet Count 453 k/uL (150-450); RDW 14.7 % (11.5-15.5); WBC 3.5 k/uL (3.8-10.6)
--- NOTE | 2020-01-02 09:20 | XR ---
EXAMINATION TYPE: XR abdomen 1V DATE OF EXAM: 01/02/2020 9:10 AM CLINICAL HISTORY: Abdominal pain. Blood in stool. TECHNIQUE: Single supine KUB image of the abdomen is obtained. COMPARISON: 07/30/2019 FINDINGS: Solitary mildly dilated loop of small bowel in the left mid abdomen measuring approximately 3.8 cm. Gas and fecal material is seen in nondilated colon. Extensive postsurgical changes are seen of the lumbar spine. Cholecystectomy clips are present. The lung bases are clear and the osseous stru ctures are intact. There is diffuse osseous demineralization. IMPRESSION: Mildly dilated solitary loop of small bowel in the left mid abdomen, overall ileus.
[2020-01-02 09:23] LABS: Partial Thromboplastin Time 23.2 sec (22.0-30.0)
[2020-01-02 09:24] LABS: ALT 8 U/L (4-49); AST 16 U/L (17-59); African American GFR (CKD) >90 (>60 ml/min/1.73 sqM); Albumin 4.5 g/dL (3.5-5.0); Alkaline Phosphatase 82 U/L (38-126); Anion Gap 8 mmol/L; Blood Urea Nitrogen 6 mg/dL (9-20); Calcium 9.8 mg/dL (8.4-10.2); Carbon Dioxide 25 mmol/L (22-30); Chloride 106 mmol/L (98-107); Glucose 127 mg/dL (74-99); Non-African American GFR(CKD) >90 (>60 ml/min/1.73 sqM); Potassium 4.7 mmol/L (3.5-5.1); Sodium 139 mmol/L (137-145); Total Bilirubin 0.4 mg/dL (0.2-1.3); Total Protein 7.4 g/dL (6.3-8.2)
[2020-01-02] MEDS ORDERED: NALOXONE 0.4 MG/ML 1 ML VIAL IV PRN (10:58)
[2020-01-02] MEDS ORDERED: ONDANSETRON 4 MG/2 ML VIAL IVP PRN (10:58)
[2020-01-02] MEDS ORDERED: MORPHINE SULFATE 4 MG/ML SYRINGE IV STA (11:00)
[2020-01-02] MEDS: SODIUM CHLORIDE 0.9% 1,000 ML IV SCH ×2 (11:32→20:33)
[2020-01-02] MEDS ORDERED: GABAPENTIN 300 MG CAP PO PRN (15:42)
[2020-01-02] MEDS ORDERED: MORPHINE SULFATE 4 MG/ML SYRINGE IVP STA (16:39)
[2020-01-02] MEDS: TRIMETHOBENZAMIDE 100 MG/ML 2 ML VIAL IM PRN (17:28)
[2020-01-02] MEDS: hydrALAZINE HCL 50 MG TAB PO SCH ×2 (17:30→20:34)
[2020-01-02] MEDS: LISINOPRIL 20 MG TAB PO SCH (17:30)
[2020-01-02] MEDS: CARVEDILOL 12.5 MG TAB PO SCH (17:30)
[2020-01-02] MEDS: DICYCLOMINE 20 MG TAB PO SCH ×2 (17:31→20:33)
[2020-01-02] MEDS ORDERED: hydrALAZINE HCL 20 MG/ML 1 ML VIAL IVP PRN (18:30)
[2020-01-02] MEDS: HYDROmorphone 1 MG/ML 1 ML SYRINGE IVP PRN (19:47)
[2020-01-02] MEDS: cloNIDine HCL 0.1 MG TAB PO SCH (20:34)
[2020-01-02] MEDS: amLODIPine 5 MG TAB PO SCH (20:34)
[2020-01-03] MEDS: HYDROmorphone 1 MG/ML 1 ML SYRINGE IVP PRN ×6 (00:04→21:11)
[2020-01-03] MEDS: SODIUM CHLORIDE 0.9% 1,000 ML IV SCH ×3 (04:28→17:03)
--- NOTE | 2020-01-03 05:32 | P.CONS ---
History of Present Illness - Reason for Consult Consult date: 01/02/20 GI bleed Requesting physician: Casper Marcus - Chief Complaint Vomiting, hematemesis - History of Present Illness 64-year-old male with multiple medical comorbidities including COPD, coronary artery disease, chronic back pain, hypertension, hyperlipidemia and prior admissions complaints of chest and abdominal pain and anemia investigated with EGD and colonoscopy in the past who presents back to the hospital with complaints of nausea, vomiting, hematemesis, abdominal pain and diarrhea. The patient describes 3 days of symptoms prior to presentation. He reports multiple episodes of dry heaving with associated nausea, with vomiting what he describes as yellow bilious material as well as coffee ground material. The patient also reports severe sharp pain in the epigastric region his abdomen. He also reports episodes of loose stool in association with his symptoms. Patient has been seen in the past with similar complaints at which time he had investigation performed on 11/21/2017 EGD colonoscopy for evaluation of chest pain and anemia with fi ndings of mild antral gastritis with no obvious cut with a reflux disease or esophagitis, Small sliding hiatal hernia, Mild sigmoid diverticulosis. On his current admission he had an x-ray of the abdomen performed with only one mildly dilated loop of small bowel. WBC 3.5, hemoglobin 12.4, platelet count 403,000, INR 1.0, total bilirubin 0.4, alkaline phosphatase 82, Review of Systems REVIEW OF SYSTEMS: CONSTITUTIONAL: Denies any fevers, chills, weight change or fatigue. CARDIOVASCULAR: Denies any chest pain, palpitations high or low blood pressures RESPIRATORY: Denies any shortness of breath, hemoptysis or cough. GENITOURINARY: No dysuria or hematuria. MUSCULOSKELETAL: No weakness reported. SKIN: Denies any new rashes or lesions, jaundice or pallor. PSYCHIATRIC: Denies any depression or anxiety. NEUROLOGY: Denies headache, denies any new focal deficits. EARS/NOSE/THROAT: No recent hearing change, congestion, nasal discharge or sore throat. EYES: No pain in eyes, discharge or change in vision. GASTROINTESTINAL: As per HPI. Past Medical History Past Medical History: Coronary Artery Disease (CAD), Chest Pain / Angina, COPD, Deep Vein Thrombosis (DVT), GERD/Reflux, Hyperlipidemia, Hypertension, Osteoarthritis (OA), Thyroid Disorder Additional Past Medical History / Comment(s): Occasional palpitations, gastritis, small hiatal hernia, diverticular dx, pt states years ago he had duodenal ulcer, chronic low back pain, chronic pain syndrome, migraines, DVT L arm, numbness/tingling bilateral lower legs, bilateral past R hand fracture, arthritis multiple joints, hyperthyroid, sinus problems. History of Any Multi-Drug Resistant Organisms: None Reported Past Surgical History: Back Surgery, Cholecystectomy, Heart Catheterization, Heart Catheterization With Stent, Orthopedic Surgery Additional Past Surgical History / Comment(s): EGDs/colonoscopies, multiple low back surgeries, cervical fusion/cage surgery, bilateral arm and bilateral thigh surgeries for brown recluse spider bites with infection, morphine pain pump insertion and removal due to infection, PCI with stents, L rotator cuff repair, L knee arthroscopy, cervical fusion/cage, R cataract removal. Past Anesthesia/Blood Transfusion Reactions: No Reported Reaction Additional Past Anesthesia/Blood Transfusion Reaction / Comm: Pt states after ce rvical fusion he "" in the recovery room but does not know cause- he was"gone for 8 minutes" and states he was resusitated. Pt received blood after back surgery and tolerated it well. Date of Last Stent Placement:: 2017 Smoking Status: Former smoker - Past Family History Father Family Medical History: No Reported History Additional Family Medical History / Comment(s): Father had back problems. He lived to be 82 yrs old. Mother Family Medical History: Hypertension, Myocardial Infarction (LA) Additional Family Medical History / Comment(s): Mother of a LA at the age of 55yrs. Brother(s) Family Medical History: Cancer, COPD Additional Family Medical History / Comment(s): Leukemia Medications and Allergies Home Medications Medication Instructions Recorded Confirmed Type Fluticasone Nasal [place] [Flonase 1 spray EA NOSTRIL BID 04/20/17 01/02/20 History Nasal [place]] Morphine Sulfate ER [Ms Contin] 30 mg PO Q8H 10/10/17 01/02/20 History Atorvastatin [Lipitor] 80 mg PO HS #30 tab 10/12/17 01/02/20 Rx tiZANidine [Zanaflex] 4 mg PO TID PRN 02/26/18 01/02/20 History cloNIDine HCL [Catapres] 0.1 mg PO BID #60 tab 02/08/19 01/02/20 Rx Ezetimibe [Zetia] 10 mg PO DAILY #30 tab 05/24/19 01/02/20 Rx amLODIPine [Norvasc] 5 mg PO BID #60 tab 05/24/19 01/02/20 Rx Nitroglycerin Sl Tabs [Nitrostat] 0.4 mg SUBLINGUAL Q5M PRN #20 tab 07/02/19 01/02/20 Rx Prasugrel [Effient] 10 mg PO DAILY 07/02/19 01/02/20 History Lisinopril 40 mg PO DAILY #14 tab 07/30/19 01/02/20 Rx Dicyclomine [Bentyl] 20 mg PO QID #12 tablet 12/30/19 01/02/20 Rx Aspirin EC [Ecotrin Low Dose] 81 mg PO DAILY 01/02/20 01/02/20 History Carvedilol [Coreg*] 12.5 mg PO AC-BID 01/02/20 01/02/20 History Furosemide [Lasix] 20 mg PO DAILY PRN 01/02/20 01/02/20 History Gabapentin [Neurontin] 300 mg PO TID PRN 01/02/20 01/02/20 History oxyCODONE-APAP 10-325MG [Percocet 1 tab PO Q8H PRN 01/02/20 01/02/20 History 10-325 mg] Allergies Allergy/AdvReac Type Severity Reaction Status Date / Time ibuprofen [From Motrin] Allergy Rash/Hives Verified 01/02/20 07:11 ketorolac tromethamine Allergy Rash/Hives Verified 01/02/20 07:11 [From Toradol] Physical Exam Vitals: Vital Signs Temp Pulse Pulse Resp BP BP BP 01/02/20 14:42 97.8 F 77 18 169/110 160/99 01/02/20 13:12 76 18 01/02/20 12:29 72 18 165/104 01/02/20 11:34 86 20 151/96 01/02/20 10:41 72 20 141/102 01/02/20 07:11 97.4 F L 92 18 154/92 Pulse Ox 01/02/20 14:42 100 01/02/20 13:12 100 01/02/20 12:29 100 01/02/20 11:34 100 01/02/20 10:41 99 01/02/20 07:11 100 Intake and Output 01/02/20 01/02/20 01/02/20 06:59 14:59 22:59 Other: Weight 79.379 kg On physical examination, patient appears comfortable in no apparent distress. HEAD: Normocephalic, atraumatic. EYES: No scleral icterus. No conjunctival injection. MOUTH: No lesions, tongue midline. NECK: Trachea midline, no gross abnormalities. CHEST: Clear to auscultation with no wheezing or rhonchi appreciated. HEART: Regular rate and rhythm. ABDOMEN: Soft, mildly tender to palpation. Bowel sounds are positive. No organomegaly. No guarding or rigidity. EXTREMITIES: No pedal edema. SKIN: No rashes, no jaundice. NEUROLOGIC: Alert and oriented x3. No focal deficits. Results CBC & Chem 7: 01/02/20 08:46 01/02/20 08:46 Labs: Abnormal Lab Results - Last 24 Hours (Table) 01/02/20 01/02/20 Range/Units 08:46 08:46 WBC 3.5 L (3.8-10.6) k/uL Hgb 12.4 L (13.0-17.5) gm/dL Plt Count 453 H (150-450) k/uL Lymphocytes # 0.8 L (1.0-4.8) k/uL BUN 6 L (9-20) mg/dL Creatinine 0.63 L (0.66-1.25) mg/dL Glucose 127 H (74-99) mg/dL AST 16 L (17-59) U/L Abdominal x-ray: report reviewed (X-ray of the abdomen with one mildly dilated loop of small bowel) Assessment and Plan (1) Hematemesis Narrative/Plan: 64-year-old male with multiple medical comorbidities who presented to the hospital with a constellation of symptoms including nausea and vomiting, hematemesis, loose stool and epigastric pain. He is been seen in the hospital for similar complaints in the past. Hemoglobin was found to be normal. Unclear if secondary to a viral or bacterial gastroenteritis, hematemesis from Farhana- Victor tear, gastritis or esophagitis, or other etiology. Current Visit: No Status: Acute Code(s): K92.0 - HEMATEMESIS SNOMED Code(s): 6917801 (2) GI bleed Current Visit: Yes Status: Acute Code(s): K92.2 - GASTROINTESTINAL HEMORRHAGE, UNSPECIFIED SNOMED Code(s): 98255958 (3) Epigastric abdominal pain Current Visit: No Status: Acute Code(s): R10.13 - EPIGASTRIC PAIN SNOMED Code(s): 31976105 (4) Vomiting Current Visit: No Status: Acute Code(s): R11.10 - VOMITING, UNSPECIFIED SNOMED Code(s): 519376746 Plan: Supportive care Okay for clear liquid diet Nothing by mouth after midnight Plan for EGD tomorrow for further evaluation Dicyclomine [id number] Protonix twice daily Tigan IM added as needed for nausea Reports from patient's EGD and colonoscopy in 2017 reviewed Thanks for allowing us to participate in the care of the patient, we will continue to follow
--- NOTE | 2020-01-03 05:43 | HP ---
HISTORY AND PHYSICAL CHIEF COMPLAINT: Hematemesis. 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 He has been having a lot of indigestion lately and came to the emergency room stating that he was throwing up blood. His hemoglobin was 12.4. He denied melena. States he does not abuse alcohol. He is on 81 mg of aspirin. REVIEW OF SYSTEMS: He has had no blackouts, headache, chest pain, shortness of breath, etc. He does have a history of heart disease and hypertension. He has had no history of jaundice, cirrhosis, melena, hematochezia, renal failure, dysuria, frequency, urgency, hematuria, diabetes, etc. Past medical history, family history, personal and social histories reveal he cannot take NSAIDs. Medications at the present time include: 1. Aspirin 81 mg. 2. Fluticasone nasal spray. 3. Morphine extended release or MS Contin 30 mg t.i.d. 4. Zanaflex 4 mg t.i.d. 5. Prasugrel 10 mg once a day. 6. Dilaudid 2 mg t.i.d. 7. Imodium 1 or 2 tablets q.i.d. Laboratory studies were unremarkable. CBC was normal. He was admitted to the hospital with diagnoses: 1. Hematemesis. 2. Analgesic abuse. 3. Hypertension at 141/102. PLAN: 1. Bed rest. 2. IV fluids. 3. N.p.o. 4. GI consult for endoscopy. 5. Follow hemoglobin. MMODL / IJN: [id number] /
[2020-01-03] MEDS: PANTOPRAZOLE 40 MG/10 ML VIAL IV SCH (08:09)
[2020-01-03] MEDS: LISINOPRIL 20 MG TAB PO SCH (08:10)
[2020-01-03] MEDS: amLODIPine 5 MG TAB PO SCH (08:10)
[2020-01-03] MEDS: cloNIDine HCL 0.1 MG TAB PO SCH (08:10)
[2020-01-03] MEDS: hydrALAZINE HCL 50 MG TAB PO SCH ×3 (08:10→15:48)
[2020-01-03] MEDS: CARVEDILOL 12.5 MG TAB PO SCH ×2 (08:11→15:48)
[2020-01-03] MEDS: DICYCLOMINE 20 MG TAB PO SCH ×3 (08:11→15:47)
[2020-01-03 10:44] LABS: Basophils # (A) 0.1 k/uL (0-0.2); Basophils % (A) 2 %; Eosinophils # (A) 0.1 k/uL (0-0.7); Eosinophils % (A) 1 %; HCT 40.9 % (39.0-53.0); Lymphocytes # (A) 0.6 k/uL (1.0-4.8); Lymphocytes % (A) 13 %; MCH 28.4 pg (25.0-35.0); MCHC 31.8 g/dL (31.0-37.0); MCV 89.3 fL (80.0-100.0); Mean Platelet Volume 6.8; Monocytes # (A) 0.4 k/uL (0-1.0); Monocytes % (A) 8 %; Neutrophils # (A) 3.7 k/uL (1.3-7.7); Neutrophils % (A) 74 %; Platelet Count 464 k/uL (150-450); RBC 4.58 m/uL (4.30-5.90); RDW 14.7 % (11.5-15.5); WBC 4.9 k/uL (3.8-10.6)
[2020-01-03 11:09] LABS: ALT 8 U/L (4-49); AST 23 U/L (17-59); African American GFR (CKD) >90 (>60 ml/min/1.73 sqM); Albumin 4.6 g/dL (3.5-5.0); Alkaline Phosphatase 85 U/L (38-126); Anion Gap 13 mmol/L; Blood Urea Nitrogen 9 mg/dL (9-20); Calcium 9.5 mg/dL (8.4-10.2); Carbon Dioxide 20 mmol/L (22-30); Chloride 105 mmol/L (98-107); Glucose 121 mg/dL (74-99); Non-African American GFR(CKD) >90 (>60 ml/min/1.73 sqM); Potassium 4.7 mmol/L (3.5-5.1); Sodium 138 mmol/L (137-145); Total Bilirubin 0.8 mg/dL (0.2-1.3); Total Protein 7.8 g/dL (6.3-8.2)
[2020-01-03] MEDS ORDERED: PROPOFOL 10 MG/ML 20 ML VIAL IV ONE (11:55)
[2020-01-03] MEDS ORDERED: LIDOCAINE 1% INJ 10MG/ML (20 ML MDV) ONE (11:55)
[2020-01-03] MEDS ORDERED: IV FLUID CONTINUATION 1,000 ML IV ONE ×2 (11:55)
[2020-01-03 12:09] VITALS: BMI 22.4
--- NOTE | 2020-01-03 12:24 | P.PCN ---
Date of Procedure: 01/03/20 Description of Procedure: BRIEF HISTORY: 64-year-old male with multiple medical comorbidities who presented to the hospital with a constellation of symptoms including nausea and vomiting, hematemesis, loose stool and epigastric pain. He is been seen in the hospital for similar complaints in the past. Hemoglobin was found to be normal. PROCEDURE PERFORMED: Esophagogastroduodenoscopy with biopsy . PREOPERATIVE DIAGNOSIS: Hematemesis, nausea and vomiting ESTIMATED BLOOD LOSS: Minimal. IV sedation per anesthesia. PROCEDURE: After informed consent was obtained, the patient was brought into the endoscopy unit. IV sedation was administered by Anesthesia under continuous monitoring. Initially the Olympus GIF-190 video endoscope was inserted into the mouth. Esophagus intubated without any difficulty. It was gradually advanced into the stomach and duodenum and carefully examined. The bulb and the second part of the duodenum appeared normal, With biopsies taken. The scope at this time was withdrawn to the stomach, adequately insufflated with air, and upon careful examination, mucosa of the antrum, body, cardia and the fundus appeared normal, With mild scattered erythema in the antrum and body suggestive of mild gastritis biopsies taken. The scope was then withdrawn into the esophagus. The GE junction was located at 42 cm from the incisors. a moderate sized hiatal hernia was noted. The esophagus appeared normal. There were no erosions or ulcerations seen and the patient tolerated the procedure well. IMPRESSION: 1. Mild gastritis antrum and body, biopsied. 2. Biopsies of the duodenum. 3. No active bleeding, old blood or pathology to explain the symptoms noted. RECOMMENDATIONS: The findings of this examination were discussed with the patient. Okay to resume full liquid diet and advance as tolerated. Continue Protonix therapy, dicyclomine and anti-emetics as needed.
[2020-01-03] MEDS: ONDANSETRON 4 MG/2 ML VIAL IVP SCH (15:48)
[2020-01-03] MEDS: TRIMETHOBENZAMIDE 100 MG/ML 2 ML VIAL IM PRN (20:20)
--- NOTE | 2020-01-03 20:39 | PN ---
PROGRESS NOTE CHIEF COMPLAINT: GI bleed. HISTORY OF PRESENT ILLNESS: This gentleman is going down for endoscopy today. Hemoglobin has been stable. PHYSICAL EXAMINATION: Chest is clear. Cardiac exam is normal. Abdomen is soft, nontender. IMPRESSION: Hematemesis. PLAN: GI endoscopy today and then proceed accordingly. MMODL / IJN: [id number] /
[2020-01-04] MEDS: ONDANSETRON 4 MG/2 ML VIAL IVP SCH ×2 (00:09→06:20)
[2020-01-04 00:19] VITALS: RESP 16
[2020-01-04] MEDS: amLODIPine 5 MG TAB PO SCH ×2 (01:02→08:52)
[2020-01-04] MEDS: cloNIDine HCL 0.1 MG TAB PO SCH ×2 (01:02→08:52)
[2020-01-04] MEDS: DICYCLOMINE 20 MG TAB PO SCH ×2 (01:02→08:52)
[2020-01-04] MEDS: HYDROmorphone 1 MG/ML 1 ML SYRINGE IVP PRN ×2 (01:02→05:26)
[2020-01-04] MEDS: hydrALAZINE HCL 50 MG TAB PO SCH ×2 (01:02→08:52)
[2020-01-04] MEDS: SODIUM CHLORIDE 0.9% 1,000 ML IV SCH (06:21)
[2020-01-04 07:10] VITALS: BP 144/81; PULSE 76; TEMP 98.1
[2020-01-04] MEDS: CARVEDILOL 12.5 MG TAB PO SCH (08:52)
[2020-01-04] MEDS: LISINOPRIL 20 MG TAB PO SCH (08:52)
[2020-01-04] MEDS: PANTOPRAZOLE 40 MG/10 ML VIAL IV SCH (08:54)
--- NOTE | 2020-01-05 11:21 | DS ---
DISCHARGE SUMMARY CHIEF COMPLAINT: Upper gastrointestinal hemorrhage. HISTORY OF PRESENT ILLNESS AND PHYSICAL EXAM: Details of this man's history and physical can be found in the initial work up. LABORATORY STUDIES: While he was in the hospital, he had laboratory studies, details of which can be found in the laboratory section of his chart. COURSE IN THE HOSPITAL: After admission, he was placed on bed rest, started on intravenous fluids. His hemoglobin was monitored. He was seen by gastroenterology. He was taken for endoscopy where he was found to have gastritis. There was no active bleeding. He is doing well and it is felt that he could be discharged on the . Before he could be discharged, he signed out AMA. FINAL DIAGNOSES: 1. Upper gastrointestinal hemorrhage. 2. Gastritis. OPERATION: Upper gastrointestinal endoscopy. CONSULTATION: Gastroenterology. He is improved. MMODL / IJN: [id number] /
== END 2020-01-04 10:30 | disposition left against medical advice (07) ==
LOC: CATHCVL 07:07 → 6NMEDSUR 10:58
PROVIDERS: ADMIT Family Medicine; ATTEND Family Medicine
DX: K92.2 Gastrointestinal hemorrhage, unspecified (principal); K29.50 Unspecified chronic gastritis without bleeding; F55.8 Abuse of other non-psychoactive substances; I10 Essential (primary) hypertension; I25.10 Atherosclerotic heart disease of native coronary artery without angina pectoris; J44.9 Chronic obstructive pulmonary disease, unspecified; K21.9 Gastro-esophageal reflux disease without esophagitis; E78.5 Hyperlipidemia, unspecified; M19.90 Unspecified osteoarthritis, unspecified site; E07.9 Disorder of thyroid, unspecified; Z86.718 Personal history of other venous thrombosis and embolism; K44.9 Diaphragmatic hernia without obstruction or gangrene; G89.4 Chronic pain syndrome; R00.2 Palpitations; M54.5 Low back pain; G43.909 Migraine, unspecified, not intractable, without status migrainosus; Z98.1 Arthrodesis status; Z87.891 Personal history of nicotine dependence; Z82.49 Family history of ischemic heart disease and other diseases of the circulatory system; Z80.6 Family history of leukemia; Z80.9 Family history of malignant neoplasm, unspecified; Z53.29 Procedure and treatment not carried out because of patient's decision for other reasons; Z88.8 Allergy status to other drugs, medicaments and biological substances; Z79.82 Long term (current) use of aspirin; Z79.51 Long term (current) use of inhaled steroids; Z79.899 Other long term (current) drug therapy; Z79.891 Long term (current) use of opiate analgesic; Z95.5 Presence of coronary angioplasty implant and graft; Z82.5 Family history of asthma and other chronic lower respiratory diseases; Z98.41 Cataract extraction status, right eye; Z79.02 Long term (current) use of antithrombotics/antiplatelets; Z87.11 Personal history of peptic ulcer disease
CPT/HCPCS: 43239; 96376 ×3; 96372; 96374; 96375; 99285; 88305; 80053 ×2; 85025 ×2; 85610; 85730; 74018; G0378 ×3; J2270; J3250 ×2; J2405 ×3; J2001; J1170 ×3; J2704; C9113 ×2

== ENCOUNTER 2020-01-29 22:07 | Emergency (ER) | payer MEDICARE ==
[2020-01-29 22:11] VITALS: BP 163/105; PULSE 90; RESP 20; TEMP 97.3
[2020-01-29] MEDS ORDERED: HYDROmorphone 0.5 MG/0.5 ML SYRINGE IM STA (22:22)
--- NOTE | 2020-01-29 22:46 | ED ---
Back Pain [facility] - General Chief Complaint: Back Pain/Injury Stated Complaint: Back pain Time Seen by Provider: 01/29/20 22:12 Source: patient Limitations: no limitations - History of Present Illness Initial Comments: 64-year-old male presenting today for chief complaint of acute on chronic low back pain. Patient states he has had increase in his chronic low back pain since she has had a decrease in his pain medications from Dilaudid to morphine. He states he also has been moving stuff that has been heavy for the past 2 days. Patient denies any loss of bowel bladder control leg weakness urinary retention denies IV drug use denies fevers denies any active cancer chemotherapy treatment patient denies any chronic steroid use. Patient is a loss of sensation of the lower extremity. Patient states he still to ambulate without difficulty. Patient denies any radiation of the leg doesn't chest pain shortness of breath patient other complaints today - Related Data Home Medications Medication Instructions Recorded Confirmed Fluticasone Nasal [place] [Flonase 1 spray EA NOSTRIL BID 04/20/17 01/02/20 Nasal [place]] Morphine Sulfate ER [Ms Contin] 30 mg PO Q8H 10/10/17 01/02/20 tiZANidine [Zanaflex] 4 mg PO TID PRN 02/26/18 01/02/20 Prasugrel [Effient] 10 mg PO DAILY 07/02/19 01/02/20 Aspirin EC [Ecotrin Low Dose] 81 mg PO DAILY 01/02/20 01/02/20 Carvedilol [Coreg*] 12.5 mg PO AC-BID 01/02/20 01/02/20 Furosemide [Lasix] 20 mg PO DAILY PRN 01/02/20 01/02/20 Gabapentin [Neurontin] 300 mg PO TID PRN 01/02/20 01/02/20 oxyCODONE-APAP 10-325MG [Percocet 1 tab PO Q8H PRN 01/02/20 01/02/20 10-325 mg] Previous Rx's Medication Instructions Recorded Atorvastatin [Lipitor] 80 mg PO HS #30 tab 10/12/17 cloNIDine HCL [Catapres] 0.1 mg PO BID #60 tab 02/08/19 Ezetimibe [Zetia] 10 mg PO DAILY #30 tab 05/24/19 amLODIPine [Norvasc] 5 mg PO BID #60 tab 05/24/19 Nitroglycerin Sl Tabs [Nitrostat] 0.4 mg SUBLINGUAL Q5M PRN #20 tab 07/02/19 Lisinopril 40 mg PO DAILY #14 tab 07/30/19 Dicyclomine [Bentyl] 20 mg PO QID #12 tablet 12/30/19 Allergies Allergy/AdvReac Type Severity Reaction Status Date / Time ibuprofen [From Motrin] Allergy Rash/Hives Verified 01/29/20 22:11 ketorolac tromethamine Allergy Rash/Hives Verified 01/29/20 22:11 [From Toradol] Review of Systems ROS Statement: Those systems with pertinent positive or pertinent negative responses have been documented in the HPI. ROS Other: All systems not noted in ROS Statement are negative. Past Medical History Past Medical History: Coronary Artery Disease (CAD), Chest Pain / Angina, COPD, Deep Vein Thrombosis (DVT), GERD/Reflux, Hyperlipidemia, Hypertension, Osteoarthritis (OA), Thyroid Disorder Additional Past Medical History / Comment(s): Occasional palpitations, gastritis, small hiatal hernia, diverticular dx, pt states years ago he had duodenal ulcer, chronic low back pain, chronic pain syndrome, migraines, DVT L arm, numbness/tingling bilateral lower legs, bilateral past R hand fracture, arthritis multiple joints, hyperthyroid, sinus problems. History of Any Multi-Drug Resistant Organisms: None Reported Past Surgical History: Back Surgery, Cholecystectomy, Heart Catheterization, Heart Catheterization With Stent, Orthopedic Surgery Additional Past Surgical History / Comment(s): EGDs/colonoscopies, multiple low back surgeries, cervical fusion/cage surgery, bilateral arm and bilateral thigh surgeries for brown recluse spider bites with infection, morphine pain pump insertion and removal due to infection, PCI with stents, L rotator cuff repair, L knee arthroscopy, cervical fusion/cage, R cataract removal. Past Anesthesia/Blood Transfusion Reactions: No Reported Reaction Additional Past Anesthesia/Blood Transfusion Reaction / Comment(s): Pt states after cervical fusion he "" in the recovery room but does not know cause- he was"gone for 8 minutes" and states he was resusitated. Pt received blood after back surgery and tolerated it well. Date of Last Stent Placement:: 2017 Past Psychological History: No Psychological Hx Reported Smoking Status: Former smoker Past Alcohol Use History: None Reported Past Drug Use History: None Reported - Past Family History Father Family Medical History: No Reported History Additional Family Medical History / Comment(s): Father had back problems. He lived to be 82 yrs old. Mother Family Medical History: Hypertension, Myocardial Infarction ([place]) Additional Family Medical History / Comment(s): Mother of a [place] at the age of 55yrs. Brother(s) Family Medical History: Cancer, COPD Additional Family Medical History / Comment(s): Leukemia General Exam - General Exam Comments Initial Comments: General: The patient is awake and alert, in no distress, and does not appear acutely ill. Eye: Pupils are equal, round and reactive to light, extra-ocular movements are intact. No nystagmus. There is normal conjunctiva bilaterally. No signs of icterus. Cardiovascular: There is a regular rate and rhythm. No murmur, rub or gallop is appreciated. Respiratory: Lungs are clear to auscultation, respirations are non-labored, breath sounds are equal. No wheezes, stridor, rales, or rhonchi. Gastrointestinal: Soft, non-distended, non-tender abdomen without masses or organomegaly noted. There is no rebound or guarding present. Musculoskeletal: Upon inspection of the lumbar spine there is scarring midline. Patient has a midline tenderness. Patient has mild paravertebral tenderness as well of the lumbar spine. No thoracic or cervical spine tenderness midline or perivertebral. Normal ROM, no tenderness of the lower external ears bilaterally. Strength 5/5 of the lower choice bilaterally. Sensation intact of the lower extremity bilaterally. DP pulses equal bilaterally 2+. Neurological: A&O x 3. CN II-XII intact grossly, There are no obvious motor or sensory deficits. Coordination appears grossly intact. Speech is normal. Skin: Skin is warm and dry and no rashes or lesions are noted. Psychiatric: Cooperative, appropriate mood & affect, normal judgment. Limitations: no limitations Course Vital Signs 01/29/20 22:10 Temperature 97.3 F L Pulse Rate 90 Respiratory 20 Rate Blood Pressure 163/105 O2 Sat by Pulse 99 Oximetry Medical Decision Making - Medical Decision Making 64-year-old male chronic back pain well-known to the emergency department. Patient is provided IM medications. Improvement of pain patient ambulated no signs of cauda equina at this time. Patient states his symptoms are sick as his chronic back pain just slightly intensified he states he believes is secondary to moving heavy objects the past 2 days. Remaining review of system was negative and at this time feel patient is stable for discharge with follow-up in his pain management clinic and primary care provider patient verbalized understanding was agreeable to this care plan requested discharge and "discharge paperwork Disposition Clinical Impression: Acute exacerbation of chronic low back pain Disposition: HOME SELF-CARE Condition: Good Instructions (If sedation given, give patient instructions): Acute Low Back Pain (ED) Additional Instructions: Please use medication as discussed. Please follow-up with family doctor in the next 2 days. Please return to emergency room if the symptoms increase or worsen or for any other concerns. Is patient prescribed a controlled substance at d/c from ED?: No Referrals: None,Stated [Primary Care Provider] - 1-2 days Time of Disposition: 22:46
== END 2020-01-29 23:00 | disposition home or self-care (01) ==
LOC: EC 22:07
DX: G89.29 Other chronic pain (principal); M54.5 Low back pain; I25.119 Atherosclerotic heart disease of native coronary artery with unspecified angina pectoris; J44.9 Chronic obstructive pulmonary disease, unspecified; K21.9 Gastro-esophageal reflux disease without esophagitis; I10 Essential (primary) hypertension; E78.5 Hyperlipidemia, unspecified; Z79.51 Long term (current) use of inhaled steroids; Z79.82 Long term (current) use of aspirin; Z79.02 Long term (current) use of antithrombotics/antiplatelets; Z79.899 Other long term (current) drug therapy; Z88.5 Allergy status to narcotic agent; Z88.6 Allergy status to analgesic agent; Z87.891 Personal history of nicotine dependence; Z95.5 Presence of coronary angioplasty implant and graft; Z98.1 Arthrodesis status; Z86.718 Personal history of other venous thrombosis and embolism
CPT/HCPCS: 99283; 96372; J1170

== ENCOUNTER 2020-02-04 | Emergency (ER) | payer MEDICARE | END 2020-02-04 17:14 | disposition home or self-care (01) | CPT/HCPCS: 99284; 96372; J8540; J1170 ==

== ENCOUNTER 2020-02-21 06:41 | Observation (INO) | payer MEDICARE ==
[2020-02-21] MEDS ORDERED: SODIUM CHLORIDE 0.9% 1,000 ML IV STA ×2 (06:54)
[2020-02-21] MEDS ORDERED: PANTOPRAZOLE 40 MG/10 ML VIAL IVP STA (06:57)
--- NOTE | 2020-02-21 07:00 | ED ---
Chest Pain HPI - General Source: patient, RN notes reviewed, old records reviewed Mode of arrival: ambulatory Limitations: no limitations <Tammie Houston - Last Filed: 02/21/20 09:09> <Byron Shah - Last Filed: 02/21/20 09:49> - General Chief Complaint: Chest Pain Stated Complaint: Chest Pain Time Seen by Provider: 02/21/20 06:49 - History of Present Illness Initial Comments: Patient is a 64-year-old male who presents emergency department today for evaluation with complaints of chest pain that started at 2:30 this morning. He states it woke him up from sleep. Patient also complains that he is feeling somewhat short of breath associated with this chest pain. He also complains of dark stools. Patient has history of coronary artery disease, chest pain, COPD, GERD, hypertension and thyroid disorder. Patient reports that he sees Dr. Go for cardiology. He also reports that he has not been taking any medication for her stomach lately. Patient is prominence emergency department for chronic pain. (Tammie Houston) - Related Data Home Medications Medication Instructions Recorded Confirmed Fluticasone Nasal [place] [Flonase 1 spray EA NOSTRIL BID 04/20/17 02/21/20 Nasal [place]] Morphine Sulfate ER [Ms Contin] 30 mg PO Q8H 10/10/17 02/21/20 tiZANidine [Zanaflex] 4 mg PO TID PRN 02/26/18 02/21/20 Prasugrel [Effient] 10 mg PO DAILY 07/02/19 02/21/20 Aspirin EC [Ecotrin Low Dose] 81 mg PO DAILY 01/02/20 02/21/20 Carvedilol [Coreg*] 12.5 mg PO AC-BID 01/02/20 02/21/20 Furosemide [Lasix] 20 mg PO DAILY PRN 01/02/20 02/21/20 Gabapentin [Neurontin] 300 mg PO TID PRN 01/02/20 02/21/20 oxyCODONE-APAP 10-325MG [Percocet 1 tab PO Q8H PRN 01/02/20 02/21/20 10-325 mg] Previous Rx's Medication Instructions Recorded Atorvastatin [Lipitor] 80 mg PO HS #30 tab 10/12/17 cloNIDine HCL [Catapres] 0.1 mg PO BID #60 tab 02/08/19 Ezetimibe [Zetia] 10 mg PO DAILY #30 tab 05/24/19 amLODIPine [Norvasc] 5 mg PO BID #60 tab 05/24/19 Nitroglycerin Sl Tabs [Nitrostat] 0.4 mg SUBLINGUAL Q5M PRN #20 tab 07/02/19 Lisinopril 40 mg PO DAILY #14 tab 07/30/19 Dicyclomine [Bentyl] 20 mg PO QID #12 tablet 12/30/19 Furosemide [Lasix] 40 mg PO BID #10 tablet 02/04/20 Allergies Allergy/AdvReac Type Severity Reaction Status Date / Time ibuprofen [From Motrin] Allergy Rash/Hives Verified 02/21/20 09:30 ketorolac tromethamine Allergy Rash/Hives Verified 02/21/20 09:30 [From Toradol] Review of Systems ROS Other: All systems not noted in ROS Statement are negative. <Tammie Houston - Last Filed: 02/21/20 09:09> ROS Other: All systems not noted in ROS Statement are negative. <Byron Shah - Last Filed: 02/21/20 09:49> ROS Statement: Those systems with pertinent positive or pertinent negative responses have been documented in the HPI. EKG Findings - EKG Comments: EKG Findings:: EKG performed at 657 shows normal sinus rhythm with minimal voltage criteria for LVH. EKG. Ventricular rate 96 bpm. ME interval is 164 ms. QRS duration is 102 ms. QT QTc is 352/444 ms. No evidence of ST elevation. <Tammie Houston - Last Filed: 02/21/20 09:09> Past Medical History Past Medical History: Coronary Artery Disease (CAD), Chest Pain / Angina, COPD, Deep Vein Thrombosis (DVT), GERD/Reflux, Hyperlipidemia, Hypertension, Osteoarthritis (OA), Thyroid Disorder Additional Past Medical History / Comment(s): Occasional palpitations, gastritis, small hiatal hernia, diverticular dx, pt states years ago he had PUD, chronic low back pain, chronic pain syndrome, migraines, DVT L arm, numbness/tingling bilateral lower legs, bilateral past R hand fracture, arthritis multiple joints, hyperthyroid, sinus problems. History of Any Multi-Drug Resistant Organisms: None Reported Past Surgical History: Back Surgery, Cholecystectomy, Heart Catheterization With Stent, Orthopedic Surgery Additional Past Surgical History / Comment(s): EGDs/colonoscopies, multiple low back surgeries, bilateral arm and bilateral thigh surgeries for brown recluse spider bites with infection, morphine pain pump insertion and removal due to infection, PCI with stents, L rotator cuff repair, L knee arthroscopy, cervical fusion/cage, R cataract removal. Past Anesthesia/Blood Transfusion Reactions: No Reported Reaction Additional Past Anesthesia/Blood Transfusion Reaction / Comment(s): Pt states after cervical fusion he "" in the recovery room but does not know cause- he was"gone for 8 minutes" and states he was resusitated. Pt received blood after back surgery and tolerated it well. Date of Last Stent Placement:: 10/12/17 Past Psychological History: No Psychological Hx Reported Smoking Status: Former smoker Past Alcohol Use History: None Reported Past Drug Use History: None Reported - Past Family History Father Family Medical History: No Reported History Additional Family Medical History / Comment(s): Father had back problems. He lived to be 82 yrs old. Mother Family Medical History: Hypertension, Myocardial Infarction ([place]) Additional Family Medical History / Comment(s): Mother of a [place] at the age of 55yrs. Brother(s) Family Medical History: Cancer, COPD Additional Family Medical History / Comment(s): Leukemia <Tammie Houston - Last Filed: 02/21/20 09:09> General Exam Limitations: no limitations General appearance: alert, in no apparent distress Head exam: Present: atraumatic, normocephalic, normal inspection Eye exam: Present: normal appearance, PERRL, EOMI. Absent: scleral icterus, conjunctival injection, periorbital swelling ENT exam: Present: normal exam, mucous membranes moist Neck exam: Present: normal inspection. Absent: tenderness, meningismus, lymphadenopathy Respiratory exam: Present: normal lung sounds bilaterally. Absent: respiratory distress, wheezes, rales, rhonchi, stridor Cardiovascular Exam: Present: regular rate, normal rhythm, normal heart sounds. Absent: systolic murmur, diastolic murmur, rubs, gallop, clicks GI/Abdominal exam: Present: soft, normal bowel sounds. Absent: distended, tenderness, guarding, rebound, rigid Extremities exam: Present: normal inspection, full ROM, normal capillary refill. Absent: tenderness, pedal edema, joint swelling, calf tenderness Back exam: Present: normal inspection Neurological exam: Present: alert, oriented X3, CN II-XII intact Psychiatric exam: Present: normal affect, normal mood Skin exam: Present: warm, dry, intact, normal color. Absent: rash <Tammie Houston - Last Filed: 02/21/20 09:09> - General Exam Comments Initial Comments: Alert and oriented 64-year-old -Honduran male. No distress. (Tammie Houston) Course <Tammie Houston - Last Filed: 02/21/20 09:09> <Byron Shah - Last Filed: 02/21/20 09:49> Vital Signs 02/21/20 02/21/20 02/21/20 06:43 07:30 08:00 Temperature 97.9 F Pulse Rate 101 H 92 89 Respiratory 18 18 18 Rate Blood Pressure 153/96 156/93 156/93 O2 Sat by Pulse 100 99 99 Oximetry 02/21/20 02/21/20 08:30 09:00 Temperature Pulse Rate 90 86 Respiratory 18 18 Rate Blood Pressure 137/91 166/91 O2 Sat by Pulse 100 97 Oximetry - Reevaluation(s) Reevaluation #1: 02/21/20 08:48 Patient had difficult time establishing IV access. Lab work was obtained. This was reviewed. Patient still complaining of chest pain. Patient had an external jugular IV established and patient will be given nitropaste for description of "crushing chest pain" (Tammie Houston) Reevaluation #2: 02/21/20 09:48 PA supervision: I proceeded [id number] evaluation the patient does present with complaints of chest pain does have a history of cardiac disease with stents. Patient will be admitted the case was discussed with Dr. Marcus and the patient is recently been admitted to. He has seen the patient in the emergency department. (Byron Shah) Procedures <Byron Shah - Last Filed: 02/21/20 09:49> - Procedures Initial comment: Right side external jugular IV placed without difficulty due to lack of peripheral IV access on multiple attempts. Patient tolerated this well (Byron Shah) Chest Pain MDM <Tammie Houston - Last Filed: 02/21/20 09:09> - MDM Patient is a 64-year-old male history of coronary artery disease. He presents today for evaluation for difficulty breathing, chest pain starting at 2:30 this morning. Patient EKG showed no change. He still complains of crushing chest pain. Patient's lab work including troponin negative. He also mentioned had dark stools. His fecal occult was negative. Patient is given Protonix, Zofran and was given IM medication because initial IV was difficult to establish. Patient later had an external jugular IV established on right side. Patient continue plan chest pain was given Nitropaste. He is ALLERGIC to ibuprofen and relax. Discussed dosing aspirin for the chest pain as well. Patient's case was discussed with Dr. Shah. Dr. Shah discussed the case with Dr. Marcus whom recently admitted the Patient 1 month ago. He agrees to accept the admission. Patient was admitted with repeat cardiac enzyme. Chest x-ray shows no acute pulmonary process. (Tammie Houston) Disposition Is patient prescribed a controlled substance at d/c from ED?: No Time of Disposition: 09:12 <Tammie Houston - Last Filed: 02/21/20 09:09> <yBron Shah - Last Filed: 02/21/20 09:49> Clinical Impression: Chest pain, Exertional dyspnea, History of gastroesophageal reflux (GERD) Disposition: ADMITTED IP TO THIS HOSP Condition: Stable
[2020-02-21] MEDS ORDERED: MORPHINE SULFATE 2 MG/ML SYRINGE IVP ONE (07:11)
[2020-02-21] MEDS ORDERED: ONDANSETRON 4 MG/2 ML VIAL IVP STA (07:11)
[2020-02-21 07:37] LABS: Basophils % (A) 0 %; Eosinophils # (A) 0.1 k/uL (0-0.7); Eosinophils % (A) 1 %; HGB 12.4 gm/dL (13.0-17.5); Lymphocytes # (A) 0.8 k/uL (1.0-4.8); Lymphocytes % (A) 22 %; MCH 28.2 pg (25.0-35.0); MCHC 31.1 g/dL (31.0-37.0); MCV 90.7 fL (80.0-100.0); Mean Platelet Volume 6.5; Monocytes # (A) 0.2 k/uL (0-1.0); Monocytes % (A) 6 %; Neutrophils # (A) 2.5 k/uL (1.3-7.7); Neutrophils % (A) 69 %; Platelet Count 433 k/uL (150-450); RBC 4.41 m/uL (4.30-5.90); RDW 14.5 % (11.5-15.5); WBC 3.6 k/uL (3.8-10.6)
[2020-02-21 07:48] LABS: ALT 11 U/L (4-49); AST 18 U/L (17-59); African American GFR (CKD) >90 (>60 ml/min/1.73 sqM); Albumin 4.7 g/dL (3.5-5.0); Alkaline Phosphatase 83 U/L (38-126); Amylase 97 U/L (30-110); Anion Gap 12 mmol/L; Blood Urea Nitrogen 6 mg/dL (9-20); Calcium 9.9 mg/dL (8.4-10.2); Carbon Dioxide 21 mmol/L (22-30); Chloride 108 mmol/L (98-107); Glucose 136 mg/dL (74-99); Magnesium 1.8 mg/dL (1.6-2.3); Non-African American GFR(CKD) >90 (>60 ml/min/1.73 sqM); Potassium 3.7 mmol/L (3.5-5.1); Sodium 141 mmol/L (137-145); Total Bilirubin 0.6 mg/dL (0.2-1.3)
[2020-02-21 07:57] LABS: Prothrombin Time 10.5 sec (9.0-12.0)
[2020-02-21 08:03] LABS: Partial Thromboplastin Time 21.8 sec (22.0-30.0)
[2020-02-21] MEDS ORDERED: ONDANSETRON 4 MG/2 ML VIAL IM STA (08:04)
[2020-02-21] MEDS ORDERED: MORPHINE SULFATE 4 MG/ML SYRINGE IM STA (08:04)
[2020-02-21] MEDS ORDERED: FAMOTIDINE 20 MG TAB PO STA (08:04)
--- NOTE | 2020-02-21 08:38 | XR ---
EXAMINATION TYPE: XR chest 2V DATE OF EXAM: 02/21/2020 COMPARISON: 11/17/2019 INDICATION: Chest pain TECHNIQUE: Frontal and lateral views of the chest are obtained. FINDINGS: The heart size is normal. The pulmonary vasculature is normal. The lungs are clear. Postsurgical anterior cervical fusion is present. IMPRESSION: 1. No acute pulmonary process.
[2020-02-21] MEDS ORDERED: NITROGLYCERIN OINT 1 INCH/GM PACKET TOPICAL STA (08:47)
[2020-02-21] MEDS ORDERED: HEPARIN SODIUM,PORCINE 5,000 UNIT/ML 1 ML VIAL IV ONE (09:13)
[2020-02-21] MEDS ORDERED: NITROGLYCERIN SL TABS 0.4 MG TAB SUBLINGUAL PRN (09:13)
[2020-02-21] MEDS ORDERED: MORPHINE SULFATE 2 MG/ML SYRINGE IVP PRN (09:13)
[2020-02-21] MEDS ORDERED: HEPARIN SOD,PORK IN 0.45% NACL 25,000 UNIT in 0.45% NACL 1 250ML.BAG IV SCH (09:15)
[2020-02-21] MEDS ORDERED: FUROSEMIDE 20 MG TAB PO PRN (09:46)
[2020-02-21] MEDS ORDERED: tiZANidine 4 MG TAB PO PRN (09:46)
[2020-02-21] MEDS ORDERED: GABAPENTIN 300 MG CAP PO PRN (09:46)
[2020-02-21] MEDS ORDERED: PROMETHAZINE INJ 25 MG in SODIUM CHLORIDE 0.9% 50 ML IVPB STA (10:00)
--- NOTE | 2020-02-21 11:16 | P.CRDCN ---
History of Present Illness History of present illness: HISTORY OF PRESENTING ILLNESS This is a pleasant 64-year-old -Spanish male past medical history significant for coronary artery disease status post PCI, gastritis, hypertension and dyslipidemia. He follows in the office with Dr. Go. We have been asked to see in consultation for chest pain. He has undergone prior PCI of the LAD and diagonal branch, most recent catheterization April 2019 revealed no evidence of significant progression of disease. She states since waking up yesterday morning he has been experiencing heavy pressure sensation in the chest with radiation to the jaw associated with nausea and vomiting as well as some mild shortness of breath. This discomfort is reproducible and the chest when palpating the stomach. Also describes a full sensation in his head and left ear. His pain is not exacerbated by activity or exertion. In December [address] Rivers revealing evidence of gastritis. Most recent echocardiogram obtained June 2019 reveals preserved LV systolic function with ejection fraction 60-65%. DIAGNOSTICS EKG reveals sinus mechanism with no acute ischemic changes. Chest xray negative for an acute cardiopulmonary process. Laboratory reviewed, WBC 3.6, hemoglobin 12.4, platelets 433, sodium 141, potassium 3.7, creatinine 0.56, magnesium 1.8, cardiac enzymes negative 1, NT proBNP 31. Current cardiac medications include Effient 10 mg daily, clonidine 0.1 mg twice a day, amlodipine 5 mg twice a day, lisinopril 40 mg daily, a 640 mg twice a day, Zetia 10 mg daily, Coreg 12.5 mg twice a day, atorvastatin 80 mg daily and aspirin 81 mg daily. REVIEW OF SYSTEMS At the time of my exam: CONSTITUTIONAL: Denies fever or chills. CARDIOVASCULAR: Complains of chest pain. Denies shortness of breath, orthopnea, PND or palpitations. RESPIRATORY: Denies cough. GASTROINTESTINAL: Complains of abdominal pain and nausea, no active vomiting currently. Denies diarrhea, constipation or vomiting. MUSCULOSKELETAL: Denies myalgias. NEUROLOGIC: Denies numbness, tingling or weakness. ENDOCRINE: Denies fatigue, weight change, polydipsia or polyurina. GENITOURINARY: Denies burning, hematuria or urgency with micturation. HEMATOLOGIC: Denies history of anemia or bleeding. PHYSICAL EXAMINATION Blood pressure 153/97 heart rate 95 afebrile and maintaining oxygen saturation on normal. CONSTITUTIONAL: No apparent distress. HEENT: Head is normocephalic. Pupils are equal, round. Sclerae anicteric. Mucous membranes of the mouth are moist. No JVD. No carotid bruit. CHEST EXAMINATION: Lungs are clear to auscultation. No chest wall tenderness is noted on palpation or with deep breathing. HEART EXAMINATION: Regular rate and rhythm. S1, S2 heard. No murmurs, gallops or rub. ABDOMEN: Soft, nontender. Positive bowel sounds. EXTREMITIES: 2+ peripheral pulses, no lower extremity edema and no calf tenderness. NEUROLOGIC EXAMINATION: Patient is awake, alert and oriented x3. ASSESSMENT Chest pain, constant and worsened by palpation Coronary artery disease s/p PCI of LAD and diagonal branch in 2017 Hypertension Dyslipidemia Chronic pain Non-compliance PLAN Pain is atypical to be related to angina. Check second troponin and if negative heparin can be discontinued. Effient can be discontinued as his most recent PCI was 2016. No further cardiac work-up. Medication compliance discussed in detail for optimal blood pressure control. Follow up in the office with Dr. Go upon discharge. Thank you kindly for this consultation. Nurse Practitioner note has been reviewed, I agree with a documented findings an d plan of care. Patient was seen and examined. Past Medical History Past Medical History: Coronary Artery Disease (CAD), Chest Pain / Angina, COPD, Deep Vein Thrombosis (DVT), GERD/Reflux, Hyperlipidemia, Hypertension, Osteoarthritis (OA), Thyroid Disorder Additional Past Medical History / Comment(s): Occasional palpitations, slade ritis, small hiatal hernia, diverticular dx, pt states years ago he had PUD, chronic low back pain, chronic pain syndrome, migraines, DVT L arm, numbness/tingling bilateral lower legs, bilateral past R hand fracture, arthritis multiple joints, hyperthyroid, sinus problems. History of Any Multi-Drug Resistant Organisms: None Reported Past Surgical History: Back Surgery, Cholecystectomy, Heart Catheterization With Stent, Orthopedic Surgery Additional Past Surgical History / Comment(s): EGDs/colonoscopies, multiple low back surgeries, bilateral arm and bilateral thigh surgeries for brown recluse spider bites with infection, morphine pain pump insertion and removal due to infection, PCI with stents, L rotator cuff repair, L knee arthroscopy, cervical fusion/cage, R cataract removal. Past Anesthesia/Blood Transfusion Reactions: No Reported Reaction Additional Past Anesthesia/Blood Transfusion Reaction / Comment(s): Pt states after cervical fusion he "" in the recovery room but does not know cause- he was"gone for 8 minutes" and states he was resusitated. Pt received blood after back surgery and tolerated it well. Date of Last Stent Placement:: 10/12/17 Past Psychological History: No Psychological Hx Reported Smoking Status: Former smoker Past Alcohol Use History: None Reported Past Drug Use History: None Reported - Past Family History Father Family Medical History: No Reported History Additional Family Medical History / Comment(s): Father had back problems. He lived to be 82 yrs old. Mother Family Medical History: Hypertension, Myocardial Infarction ([place]) Additional Family Medical History / Comment(s): Mother of a [place] at the age of 55yrs. Brother(s) Family Medical History: Cancer, COPD Additional Family Medical History / Comment(s): Leukemia Medications and Allergies Home Medications Medication Instructions Recorded Confirmed Type Fluticasone Nasal [place] [Flonase 1 spray EA NOSTRIL BID 04/20/17 02/21/20 History Nasal [place]] Morphine Sulfate ER [Ms Contin] 30 mg PO Q8H 10/10/17 02/21/20 History Atorvastatin [Lipitor] 80 mg PO HS #30 tab 10/12/17 02/21/20 Rx tiZANidine [Zanaflex] 4 mg PO TID PRN 02/26/18 02/21/20 History cloNIDine HCL [Catapres] 0.1 mg PO BID #60 tab 02/08/19 02/21/20 Rx Ezetimibe [Zetia] 10 mg PO DAILY #30 tab 05/24/19 02/21/20 Rx amLODIPine [Norvasc] 5 mg PO BID #60 tab 05/24/19 02/21/20 Rx Nitroglycerin Sl Tabs [Nitrostat] 0.4 mg SUBLINGUAL Q5M PRN #20 tab 07/02/19 02/21/20 Rx Prasugrel [Effient] 10 mg PO DAILY 07/02/19 02/21/20 History Lisinopril 40 mg PO DAILY #14 tab 07/30/19 02/21/20 Rx Dicyclomine [Bentyl] 20 mg PO QID #12 tablet 12/30/19 02/21/20 Rx Aspirin EC [Ecotrin Low Dose] 81 mg PO DAILY 01/02/20 02/21/20 History Carvedilol [Coreg*] 12.5 mg PO AC-BID 01/02/20 02/21/20 History Furosemide [Lasix] 20 mg PO DAILY PRN 01/02/20 02/21/20 History Gabapentin [Neurontin] 300 mg PO TID PRN 01/02/20 02/21/20 History oxyCODONE-APAP 10-325MG [Percocet 1 tab PO Q8H PRN 01/02/20 02/21/20 History 10-325 mg] Furosemide [Lasix] 40 mg PO BID #10 tablet 02/04/20 02/21/20 Rx Allergies Allergy/AdvReac Type Severity Reaction Status Date / Time ibuprofen [From Motrin] Allergy Rash/Hives Verified 02/21/20 09:30 ketorolac tromethamine Allergy Rash/Hives Verified 02/21/20 09:30 [From Toradol] Physical Exam Vitals: Vital Signs Temp Pulse Pulse Resp BP BP Pulse Ox 02/21/20 10:05 98.1 F 95 18 153/97 98 02/21/20 09:00 86 18 166/91 97 02/21/20 08:30 90 18 137/91 100 02/21/20 08:00 89 18 156/93 99 02/21/20 07:30 92 18 156/93 99 02/21/20 06:43 97.9 F 101 H 18 153/96 100 Intake and Output 02/20/20 02/21/20 02/21/20 22:59 06:59 14:59 Other: Weight 79.379 kg Results 02/21/20 07:20 02/21/20 07:20 Cardiac Enzymes 02/21/20 02/21/20 Range/Units 07:20 07:20 AST 18 (17-59) U/L Troponin I <0.012 (0.000-0.034) ng/mL Coagulation 02/21/20 Range/Units 07:20 PT 10.5 (9.0-12.0) sec APTT 21.8 L (22.0-30.0) sec CBC 02/21/20 Range/Units 07:20 WBC 3.6 L (3.8-10.6) k/uL RBC 4.41 (4.30-5.90) m/uL Hgb 12.4 L (13.0-17.5) gm/dL Hct 40.0 (39.0-53.0) % Plt Count 433 (150-450) k/uL Comprehensive Metabolic Panel 02/21/20 Range/Units 07:20 Sodium 141 (137-145) mmol/L Potassium 3.7 (3.5-5.1) mmol/L Chloride 108 H (98-107) mmol/L Carbon Dioxide 21 L (22-30) mmol/L BUN 6 L (9-20) mg/dL Creatinine 0.56 L (0.66-1.25) mg/dL Glucose 136 H (74-99) mg/dL Calcium 9.9 (8.4-10.2) mg/dL AST 18 (17-59) U/L ALT 11 (4-49) U/L Alkaline Phosphatase 83 (38-126) U/L Total Protein 8.0 (6.3-8.2) g/dL Albumin 4.7 (3.5-5.0) g/dL Current Medications Generic Name Dose Route Start Last Admin Trade Name Freq PRN Reason Stop Dose Admin Amlodipine Besylate 5 mg 02/21/20 21:00 Norvasc PO BID [facility] Atorvastatin Calcium 80 mg 02/21/20 21:00 Lipitor PO HS YESICA Carvedilol 12.5 mg 02/21/20 17:30 Coreg PO AC-BID YESICA Clonidine 0.1 mg 02/21/20 21:00 Catapres PO BID YESICA Dicyclomine HCl 20 mg 02/21/20 13:00 Bentyl PO QID YESICA Ezetimibe 10 mg 02/22/20 09:00 Zetia PO DAILY [facility] Fluticasone Propionate 1 spray 02/21/20 21:00 Flonase Nasal [place] EA NOSTRIL BID YESICA Furosemide 40 mg 02/21/20 16:00 Lasix PO BID@0900,1600 YESICA Furosemide 20 mg 02/21/20 09:46 Lasix PO DAILY PRN Edema Gabapentin 300 mg 02/21/20 09:46 Neurontin PO TID PRN Pain Sodium Chloride 1,000 mls @ 100 mls/hr 02/21/20 06:54 02/21/20 08:55 Saline 0.9% IV 02/21/20 16:53 100 mls/hr .Q10H STA Administration Heparin Sodium/Sodium Chloride 250 mls @ 9.525 mls/hr 02/21/20 09:15 02/21/20 09:37 25,000 unit/ Sodium Chloride IV 12 units/kg/hr .Q24H YESICA 9.525 mls/hr Administration Protocol 12 UNITS/KG/HR Lisinopril 40 mg 02/22/20 09:00 Zestril PO DAILY [facility] Morphine Sulfate 2 mg 02/21/20 09:13 Morphine Sulfate (Inj) IVP Q5M PRN Chest Pain Morphine Sulfate 30 mg 02/21/20 10:00 Ms Contin PO Q8H [facility] Nitroglycerin 0.4 mg 02/21/20 09:13 Nitrostat SUBLINGUAL Q5M PRN Chest Pain Non-Formulary Medication 81 mg 02/22/20 09:00 Aspirin Ec PO DAILY [facility] Oxycodone/Acetaminophen 1 each 02/21/20 09:46 Percocet 10-325 PO Q8H PRN Pain Prasugrel 10 mg 02/22/20 09:00 Effient PO DAILY [facility] Tizanidine HCl 4 mg 02/21/20 09:46 Zanaflex PO TID PRN Muscle Spasm Intake and Output 02/20/20 02/21/20 02/21/20 22:59 06:59 14:59 Other: Weight 79.379 kg 02/21/20 07:20 02/21/20 07:20
[2020-02-21] MEDS: MORPHINE SULFATE ER 30 MG TABLET PO SCH ×2 (11:59→20:06)
[2020-02-21] MEDS: DICYCLOMINE 20 MG TAB PO SCH ×3 (15:15→22:15)
[2020-02-21] MEDS: oxyCODONE-APAP 10-325MG 1 EACH TAB PO PRN (15:15)
--- NOTE | 2020-02-21 16:04 | HP ---
HISTORY AND PHYSICAL CHIEF COMPLAINT: Chest pain. HISTORY OF PRESENT ILLNESS: This is another admission for this gentleman who comes in frequently with various complaints, including chest pain. He has had pain for several days. He describes it as an elephant standing on his chest. He has been short of breath, but he has had no diaphoresis. Studies in the emergency room were negative, but he was admitted. REVIEW OF SYSTEMS: He has had no hemoptysis, fever, chills, myalgias, headaches, vomiting, etc. Past medical history, family history, and personal and social histories are otherwise unremarkable and noncontributory. Details of his medications can be found in his MAR from the emergency room. PHYSICAL EXAMINATION: Blood pressure is 148/76, respirations of 32 and pulse of 68. In general he appeared to be slender, well developed and well nourished. Skin color is normal and skin is warm and dry. Head, ears, eyes, nose, mouth and throat are normal. Neck veins are not distended. Thyroid is not enlarged. Chest is clear. Cardiac exam demonstrates normal sinus rhythm and there are no murmurs or extra sounds. Abdomen is flat, soft and nontender. There is no visceromegaly or masses. Bowel sounds are present. Extremities are normal. Neurologically he is intact. IMPRESSION: 1. Chest pain. 2. Rule out coronary artery disease. PLAN: 1. Bed rest. 2. IV fluids. 3. Serial EKGs and enzymes. 4. Consult Cardiology. MMODL / IJN: [id number] /
[2020-02-21] MEDS: FUROSEMIDE 40 MG TAB PO SCH (16:36)
[2020-02-21] MEDS: CARVEDILOL 12.5 MG TAB PO SCH (16:36)
[2020-02-21] MEDS: PANTOPRAZOLE 40 MG TABLET PO SCH (16:36)
[2020-02-21] MEDS: SODIUM CHLORIDE 0.9% 1,000 ML IV SCH (18:35)
[2020-02-21] MEDS ORDERED: HYDROmorphone 1 MG/ML 1 ML SYRINGE IVP STA (19:59)
[2020-02-21] MEDS: cloNIDine HCL 0.1 MG TAB PO SCH (20:06)
[2020-02-21] MEDS: PROMETHAZINE INJ 12.5 MG in SODIUM CHLORIDE 0.9% 50 ML IVPB PRN (20:57)
[2020-02-21] MEDS: FLUTICASONE 50MCG/SPRAY NASAL 16GM EA NOSTRIL SCH (20:57)
[2020-02-21] MEDS: amLODIPine 5 MG TAB PO SCH (20:57)
[2020-02-21] MEDS ORDERED: ATORVASTATIN 80 MG TAB PO SCH (21:00)
[2020-02-22] MEDS: oxyCODONE-APAP 10-325MG 1 EACH TAB PO PRN ×2 (03:04→11:17)
[2020-02-22] MEDS: PROMETHAZINE INJ 12.5 MG in SODIUM CHLORIDE 0.9% 50 ML IVPB PRN ×2 (03:06→09:00)
[2020-02-22 03:31] LABS: Cholesterol 248 mg/dL (<200); HDL Cholesterol 56 mg/dL (40-60); LDL Cholesterol,Calculated 171 mg/dL (0-99); Triglycerides 106 mg/dL (<150)
[2020-02-22] MEDS: SODIUM CHLORIDE 0.9% 1,000 ML IV SCH (04:03)
[2020-02-22] MEDS: MORPHINE SULFATE ER 30 MG TABLET PO SCH ×2 (04:04→12:01)
[2020-02-22 06:56] VITALS: BP 137/89; PULSE 75; RESP 15; TEMP 97.8
[2020-02-22] MEDS ORDERED: ASPIRIN 81 MG PO SCH (09:00)
[2020-02-22] MEDS ORDERED: LISINOPRIL 20 MG TAB PO SCH (09:00)
[2020-02-22] MEDS ORDERED: PRASUGREL 10 MG TAB PO SCH (09:00)
[2020-02-22] MEDS ORDERED: EZETIMIBE 10 MG TAB PO SCH (09:00)
[2020-02-22] MEDS ORDERED: ASPIRIN 325 MG TAB PO SCH (09:00)
[2020-02-22] MEDS: amLODIPine 5 MG TAB PO SCH (09:04)
[2020-02-22] MEDS: CARVEDILOL 12.5 MG TAB PO SCH (09:04)
[2020-02-22] MEDS: PANTOPRAZOLE 40 MG TABLET PO SCH (09:04)
[2020-02-22] MEDS: DICYCLOMINE 20 MG TAB PO SCH (09:04)
[2020-02-22] MEDS: cloNIDine HCL 0.1 MG TAB PO SCH (09:05)
[2020-02-22] MEDS: FUROSEMIDE 40 MG TAB PO SCH (09:07)
[2020-02-22] MEDS: FLUTICASONE 50MCG/SPRAY NASAL 16GM EA NOSTRIL SCH (09:07)
--- NOTE | 2020-02-22 10:36 | P.PN ---
Subjective HISTORY OF PRESENTING ILLNESS This is a pleasant 64-year-old -Burm[place] male past medical history significant for coronary artery disease status post PCI, gastritis, hypertension and dyslipidemia. He follows in the office with Dr. Go. He is seen and examined laying flat in bed in no acute distress. He continues to complain of chest pain, abdominal pain and nausea. He denies shortness of breath, dizziness or palpitations. He continues to have reproducible discomfort in the epigastric region. PHYSICAL EXAMINATION CONSTITUTIONAL: No apparent distress. HEENT: Head is normocephalic. Pupils are equal, round. Sclerae anicteric. Mucous membranes of the mouth are moist. No JVD. No carotid bruit. CHEST EXAMINATION: Lungs are clear to auscultation. No chest wall tenderness is noted on palpation or with deep breathing. HEART EXAMINATION: Regular rate and rhythm. S1, S2 heard. No murmurs, gallops or rub. EXTREMITIES: 2+ peripheral pulses, no lower extremity edema and no calf tenderness. ASSESSMENT Chest pain, constant and worsened by palpation. An acute coronary event has been ruled out. Coronary artery disease s/p PCI of LAD and diagonal branch in 2017 Hypertension Dyslipidemia Chronic pain Non-compliance PLAN No further cardiac workup. Stable for discharge from a cardiac perspective. We will continue to follow as needed, please call with further questions or concerns. Nurse Practitioner note has been reviewed, I agree with a documented findings and plan of care. Patient was seen and examined. Objective - Vital Signs Vital signs: Vital Signs Temp 97.8 F 02/22/20 06:55 Pulse 75 02/22/20 06:55 Resp 15 02/22/20 06:55 BP 137/89 02/22/20 06:55 Pulse Ox 98 02/22/20 06:55 Intake & Output 02/21/20 02/22/20 02/22/20 18:59 06:59 18:59 Intake Total 240 450 Balance 240 450 Weight 79.379 kg Intake: Oral 240 450 Other: Voiding Method Toilet # Voids 1 1 1 - Labs CBC & Chem 7: 02/21/20 07:20 02/21/20 07:20 Labs: Abnormal Lab Results - Last 24 Hours (Table) 02/21/20 Range/Units 07:20 Cholesterol 248 H (<200) mg/dL LDL Cholesterol, Calc 171 H (0-99) mg/dL
--- NOTE | 2020-02-22 16:55 | DS ---
DISCHARGE SUMMARY CHIEF COMPLAINT: Chest pain. HISTORY OF PRESENT ILLNESS AND PHYSICAL EXAMINATION: Details of this man's history and physical can be found in the initial workup. LABORATORY STUDIES: While he was in the hospital he had laboratory studies, details of which can be found in the laboratory section of his chart. COURSE IN THE HOSPITAL: After admission he was placed on bedrest, started on intravenous fluids, and he was seen and followed by Cardiology. They felt he did not have a cardiac problem. While in the hospital he exercised his usual behavior of requesting narcotics. He was given a single dose of Dilaudid. The following morning, with all of his vital signs and studies being normal, he was discharged. He was angling to stay in the hospital as long as possible. He will be followed up either by me in my office or his own physician. FINAL DIAGNOSES: 1. Atypical, noncardiac chest pain. 2. Analgesic abuser. OPERATIONS: None. CONSULTATION: Cardiology. He is improved. MMDANA / BRANDANN: [id number] /
== END 2020-02-22 12:08 | disposition home or self-care (01) ==
LOC: EC 06:41 → 1SOBS 09:11
PROVIDERS: ADMIT Family Medicine; ATTEND Family Medicine
DX: R07.89 Other chest pain (principal); E78.5 Hyperlipidemia, unspecified; G89.4 Chronic pain syndrome; I10 Essential (primary) hypertension; I25.10 Atherosclerotic heart disease of native coronary artery without angina pectoris; J44.9 Chronic obstructive pulmonary disease, unspecified; F55.8 Abuse of other non-psychoactive substances; M19.90 Unspecified osteoarthritis, unspecified site; K29.70 Gastritis, unspecified, without bleeding; Z79.02 Long term (current) use of antithrombotics/antiplatelets; Z79.82 Long term (current) use of aspirin; Z80.6 Family history of leukemia; Z82.49 Family history of ischemic heart disease and other diseases of the circulatory system; Z82.5 Family history of asthma and other chronic lower respiratory diseases; Z86.718 Personal history of other venous thrombosis and embolism; Z87.11 Personal history of peptic ulcer disease; Z87.891 Personal history of nicotine dependence; Z91.19 Patient's noncompliance with other medical treatment and regimen; Z95.5 Presence of coronary angioplasty implant and graft; Z98.41 Cataract extraction status, right eye; Z79.891 Long term (current) use of opiate analgesic; Z79.899 Other long term (current) drug therapy; Z88.8 Allergy status to other drugs, medicaments and biological substances; Z88.6 Allergy status to analgesic agent; K21.9 Gastro-esophageal reflux disease without esophagitis; G43.909 Migraine, unspecified, not intractable, without status migrainosus; Z98.1 Arthrodesis status
CPT/HCPCS: 93005 ×2; 96365; 96366; 96375 ×2; 96376 ×2; 96361; 96372; 99285; 36415; 86900; 86901; 83880; 80061; 80053; 82150; 83690; 83735; 84484; 85025; 85610; 85730; 86850; 82272; 71046; G0378 ×2; J2270; J1644 ×2; J2550 ×2; J2405; J1170

== ENCOUNTER 2020-02-27 17:36 | Emergency (ER) | payer MEDICARE ==
[2020-02-27 17:43] VITALS: BP 154/86; PULSE 89; RESP 20; TEMP 98.2
[2020-02-27] MEDS ORDERED: MORPHINE SULFATE 4 MG/ML SYRINGE IM STA (18:04)
--- NOTE | 2020-02-27 18:07 | ED ---
General Adult HPI - General Chief complaint: Abdominal Pain Stated complaint: withdrawals Time Seen by Provider: 02/27/20 17:44 Source: patient, RN notes reviewed Mode of arrival: ambulatory Limitations: no limitations - History of Present Illness Initial comments: 64 year old patient with complicated past medical history presents to the emergency department for a chief complaint of running out of his pain medication. Patient states he has an appointment with his doctor in 2 days to have a medication refill. Patient states he overtook his narcotics including his morphine. Patient states that his chronic pain is bothering him today in his back and belly. Patient denies any chest pain shortness of breath. Patient recently had cardiac workup here in the emergency department. At that time patient was shown to be seeking for pain meds. Patient has no other complaints at this time including shortness of breath, chest pain, abdominal pain, nausea or vomiting, headache, or visual changes. - Related Data Home Medications Medication Instructions Recorded Confirmed Fluticasone Nasal [place] [Flonase 1 spray EA NOSTRIL BID 04/20/17 02/21/20 Nasal [place]] Morphine Sulfate ER [Ms Contin] 30 mg PO Q8H 10/10/17 02/21/20 tiZANidine [Zanaflex] 4 mg PO TID PRN 02/26/18 02/21/20 Aspirin EC [Ecotrin Low Dose] 81 mg PO DAILY 01/02/20 02/21/20 Carvedilol [Coreg*] 12.5 mg PO AC-BID 01/02/20 02/21/20 Furosemide [Lasix] 20 mg PO DAILY PRN 01/02/20 02/21/20 Gabapentin [Neurontin] 300 mg PO TID PRN 01/02/20 02/21/20 oxyCODONE-APAP 10-325MG [Percocet 1 tab PO Q8H PRN 01/02/20 02/21/20 10-325 mg] Previous Rx's Medication Instructions Recorded Atorvastatin [Lipitor] 80 mg PO HS #30 tab 10/12/17 cloNIDine HCL [Catapres] 0.1 mg PO BID #60 tab 02/08/19 Ezetimibe [Zetia] 10 mg PO DAILY #30 tab 05/24/19 amLODIPine [Norvasc] 5 mg PO BID #60 tab 05/24/19 Nitroglycerin Sl Tabs [Nitrostat] 0.4 mg SUBLINGUAL Q5M PRN #20 tab 07/02/19 Lisinopril 40 mg PO DAILY #14 tab 07/30/19 Dicyclomine [Bentyl] 20 mg PO QID #12 tablet 12/30/19 Furosemide [Lasix] 40 mg PO BID #10 tablet 02/04/20 Allergies Allergy/AdvReac Type Severity Reaction Status Date / Time ibuprofen [From Motrin] Allergy Rash/Hives Verified 02/27/20 17:43 ketorolac tromethamine Allergy Rash/Hives Verified 02/27/20 17:43 [From Toradol] Review of Systems ROS Statement: Those systems with pertinent positive or pertinent negative responses have been documented in the HPI. ROS Other: All systems not noted in ROS Statement are negative. Past Medical History Past Medical History: Coronary Artery Disease (CAD), Chest Pain / Angina, COPD, Deep Vein Thrombosis (DVT), GERD/Reflux, Hyperlipidemia, Hypertension, Osteoarthritis (OA), Thyroid Disorder Additional Past Medical History / Comment(s): Occasional palpitations, gastritis, small hiatal hernia, diverticular dx, pt states years ago he had PUD, chronic low back pain, chronic pain syndrome, migraines, DVT L arm, numbness/tingling bilateral lower legs, bilateral past R hand fracture, arthritis multiple joints, hyperthyroid, sinus problems. History of Any Multi-Drug Resistant Organisms: None Reported Past Surgical History: Back Surgery, Cholecystectomy, Heart Catheterization With Stent, Orthopedic Surgery Additional Past Surgical History / Comment(s): EGDs/colonoscopies, multiple low back surgeries, bilateral arm and bilateral thigh surgeries for brown recluse spider bites with infection, morphine pain pump insertion and removal due to infection, PCI with stents, L rotator cuff repair, L knee arthroscopy, cervical fusion/cage, R cataract removal. Past Anesthesia/Blood Transfusion Reactions: No Reported Reaction Additional Past Anesthesia/Blood Transfusion Reaction / Comment(s): Pt states after cervical fusion he "" in the recovery room but does not know cause- he was"gone for 8 minutes" and states he was resusitated. Pt received blood after back surgery and tolerated it well. Date of Last Stent Placement:: 10/12/17 Past Psychological History: No Psychological Hx Reported Smoking Status: Former smoker Past Alcohol Use History: None Reported Past Drug Use History: None Reported - Past Family History Father Family Medical History: No Reported History Additional Family Medical History / Comment(s): Father had back problems. He lived to be 82 yrs old. Mother History Unknown: Yes Family Medical History: Hypertension, Myocardial Infarction ([place]) Additional Family Medical History / Comment(s): Mother of a [place] at the age of 55yrs. Brother(s) Family Medical History: Cancer, COPD Additional Family Medical History / Comment(s): Leukemia General Exam Limitations: no limitations General appearance: alert, in no apparent distress Head exam: Present: atraumatic, normocephalic, normal inspection Eye exam: Present: normal appearance, PERRL, EOMI. Absent: scleral icterus, conjunctival injection, periorbital swelling ENT exam: Present: normal exam, mucous membranes moist Neck exam: Present: normal inspection. Absent: tenderness, meningismus, lymphadenopathy Respiratory exam: Present: normal lung sounds bilaterally. Absent: respiratory distress, wheezes, rales, rhonchi, stridor Cardiovascular Exam: Present: regular rate, normal rhythm, normal heart sounds. Absent: systolic murmur, diastolic murmur, rubs, gallop, clicks GI/Abdominal exam: Present: soft, normal bowel sounds. Absent: distended, tenderness, guarding, rebound, rigid Back exam: Absent: vertebral tenderness Course Vital Signs 02/27/20 17:40 Temperature 98.2 F Pulse Rate 89 Respiratory 20 Rate Blood Pressure 154/86 O2 Sat by Pulse 100 Oximetry Medical Decision Making - Medical Decision Making Patient is here for chronic pain. He is out of his pain medication. He is requesting starter pack to get him through until his pain management physician writes a new prescription on the . I discussed the patient that I am not going to be doing never him today as it is inappropriate. I did however give him an IM injection of morphine. Patient will be discharged home to follow up with primary care. He will return if he has any worsening symptoms. Disposition Clinical Impression: Chronic pain Disposition: HOME SELF-CARE Condition: Good Instructions (If sedation given, give patient instructions): Medicine Refill (ED) Additional Instructions: Please follow-up with your doctor. You will not receive additional pain medications through the emergency department for chronic pain before your appointment on the eighth. Return for any worsening symptoms. Is patient prescribed a controlled substance at d/c from ED?: No Referrals: Julian Titus MD [REFERRING] - 1-2 days Time of Disposition: 18:06
== END 2020-02-27 18:26 | disposition home or self-care (01) ==
LOC: EC 17:36
DX: G89.29 Other chronic pain (principal); R10.9 Unspecified abdominal pain; M54.9 Dorsalgia, unspecified; I25.119 Atherosclerotic heart disease of native coronary artery with unspecified angina pectoris; J44.9 Chronic obstructive pulmonary disease, unspecified; I10 Essential (primary) hypertension; M19.90 Unspecified osteoarthritis, unspecified site; Z87.891 Personal history of nicotine dependence; Z88.6 Allergy status to analgesic agent; Z79.51 Long term (current) use of inhaled steroids; Z79.82 Long term (current) use of aspirin; Z79.891 Long term (current) use of opiate analgesic; Z79.899 Other long term (current) drug therapy; Z86.69 Personal history of other diseases of the nervous system and sense organs; Z97.8 Presence of other specified devices; Z98.1 Arthrodesis status
CPT/HCPCS: 99283; 96372; J2270

== ENCOUNTER 2020-03-11 21:33 | Emergency (ER) | payer MEDICARE ==
[2020-03-11 21:46] VITALS: TEMP 98.9
[2020-03-11] MEDS ORDERED: ASPIRIN 81 MG PO STA (21:54)
[2020-03-11] MEDS ORDERED: NITROGLYCERIN SL TABS 0.4 MG TAB SUBLINGUAL STA ×3 (21:54)
[2020-03-11] MEDS ORDERED: ONDANSETRON 4 MG/2 ML VIAL IVP STA (21:55)
[2020-03-11 22:17] VITALS: RESP 16
--- NOTE | 2020-03-11 22:56 | XR ---
EXAMINATION TYPE: XR chest 1V DATE OF EXAM: 03/11/2020 COMPARISON: 02/21/2020 HISTORY: Chest pain TECHNIQUE: Single view FINDINGS: Heart and mediastinum are normal. Lungs are clear. Diaphragm is normal. There are chest jessie ds. Bony thorax is intact. IMPRESSION: No active cardiopulmonary disease. No change.
[2020-03-11 22:59] LABS: Basophils % (A) 0 %; Eosinophils # (A) 0.1 k/uL (0-0.7); Eosinophils % (A) 1 %; HCT 40.3 % (39.0-53.0); HGB 12.5 gm/dL (13.0-17.5); Lymphocytes # (A) 0.8 k/uL (1.0-4.8); Lymphocytes % (A) 13 %; MCH 28.4 pg (25.0-35.0); MCV 91.6 fL (80.0-100.0); Mean Platelet Volume 6.7; Monocytes # (A) 0.3 k/uL (0-1.0); Monocytes % (A) 5 %; Neutrophils # (A) 4.6 k/uL (1.3-7.7); Neutrophils % (A) 77 %; Platelet Count 306 k/uL (150-450); RBC 4.39 m/uL (4.30-5.90); RDW 14.4 % (11.5-15.5); WBC 5.9 k/uL (3.8-10.6)
[2020-03-11 23:13] LABS: ALT 11 U/L (4-49); African American GFR (CKD) >90 (>60 ml/min/1.73 sqM); Albumin 4.6 g/dL (3.5-5.0); Anion Gap 11 mmol/L; Blood Urea Nitrogen 9 mg/dL (9-20); Carbon Dioxide 25 mmol/L (22-30); Chloride 99 mmol/L (98-107); Glucose 163 mg/dL (74-99); Non-African American GFR(CKD) >90 (>60 ml/min/1.73 sqM); Sodium 135 mmol/L (137-145); Total Bilirubin 0.2 mg/dL (0.2-1.3); Total Protein 7.8 g/dL (6.3-8.2)
[2020-03-11 23:19] LABS: INR 0.9 (<1.2); Prothrombin Time 9.5 sec (9.0-12.0)
[2020-03-11 23:24] LABS: D-Dimer 0.94 mg/L FEU (<0.60)
[2020-03-11 23:25] LABS: Partial Thromboplastin Time 21.7 sec (22.0-30.0)
[2020-03-11 23:36] LABS: AST 25 U/L (17-59); Alkaline Phosphatase 89 U/L (38-126); Magnesium 2.2 mg/dL (1.6-2.3); Potassium 4.8 mmol/L (3.5-5.1)
[2020-03-12 00:04] VITALS: BP 158/93; PULSE 100
--- NOTE | 2020-03-12 00:16 | CT ---
EXAMINATION TYPE: CT chest angio for PE DATE OF EXAM: 03/12/2020 COMPARISON: 08/21/2019 HISTORY: SOB, R/O PE CT DLP: 413.40 mGycm Automated exposure control for dose reduction was used. CONTRAST: Performed with IV Contrast, patient injected with 60 mL of Isovue 370. There are 3-D post processed images. There is some patchy infiltrate and atelectasis that is mild at both lung bases. There is no pleural effusion. There is no pericardial effusion. There is no mediastinal adenopathy. There are no hilar ma sses. Thoracic aorta is intact without sign of aneurysm or dissection. There is normal contrast opaci fication of the pulmonary arteries. There are no filling defects. The ribs appear intact. Thoracic sp ine is intact. IMPRESSION: No evidence of pulmonary embolism. There are mild pulmonary infiltrates and atelectasis at the corporate safety director ior lung bases that are essentially new compared to old exam.
--- NOTE | 2020-03-12 00:34 | ED ---
General Adult HPI - General Chief complaint: Chest Pain Stated complaint: Chest Pain Time Seen by Provider: 03/11/20 21:43 Source: patient, EMS Mode of arrival: EMS Limitations: no limitations - History of Present Illness Initial comments: 64-year-old male patient with past medical history significant for coronary artery disease presents to the emergency department today for evaluation of chest pain and lower extremity swelling. Patient states pain in his chest started 30 minutes ago while he was watching television. States he is having nausea, shortness of breath, and dizziness with this. Patient states for the last week his feet have been increasingly swollen. States it felt tight and painful as well. Patient has been taking his medications as directed. 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 Patient denies any recent rash, fever, chills, cough, abdominal pain, diarrhea, constipation, back pain, numbness, tingling, dizziness, weakness, hematuria, dysuria, urinary urgency, urinary frequency, headache, visual changes, or any other complaints. - Related Data Home Medications Medication Instructions Recorded Confirmed Fluticasone Nasal [place] [Flonase 1 spray EA NOSTRIL BID 04/20/17 03/11/20 Nasal [place]] Morphine Sulfate ER [Ms Contin] 30 mg PO Q8H 10/10/17 03/11/20 tiZANidine [Zanaflex] 4 mg PO TID PRN 02/26/18 03/11/20 Aspirin EC [Ecotrin Low Dose] 81 mg PO DAILY 01/02/20 03/11/20 Carvedilol [Coreg*] 12.5 mg PO AC-BID 01/02/20 03/11/20 Furosemide [Lasix] 20 mg PO DAILY PRN 01/02/20 03/11/20 Gabapentin [Neurontin] 300 mg PO TID PRN 01/02/20 03/11/20 oxyCODONE-APAP 10-325MG [Percocet 1 tab PO Q8H PRN 01/02/20 03/11/20 10-325 mg] Previous Rx's Medication Instructions Recorded Atorvastatin [Lipitor] 80 mg PO HS #30 tab 10/12/17 cloNIDine HCL [Catapres] 0.1 mg PO BID #60 tab 02/08/19 Ezetimibe [Zetia] 10 mg PO DAILY #30 tab 05/24/19 amLODIPine [Norvasc] 5 mg PO BID #60 tab 05/24/19 Nitroglycerin Sl Tabs [Nitrostat] 0.4 mg SUBLINGUAL Q5M PRN #20 tab 07/02/19 Lisinopril 40 mg PO DAILY #14 tab 07/30/19 Dicyclomine [Bentyl] 20 mg PO QID #12 tablet 12/30/19 Furosemide [Lasix] 40 mg PO BID #10 tablet 02/04/20 Allergies Allergy/AdvReac Type Severity Reaction Status Date / Time ibuprofen [From Motrin] Allergy Rash/Hives Verified 03/11/20 22:46 ketorolac tromethamine Allergy Rash/Hives Verified 03/11/20 22:46 [From Toradol] Review of Systems ROS Statement: Those systems with pertinent positive or pertinent negative responses have been documented in the HPI. ROS Other: All systems not noted in ROS Statement are negative. Past Medical History Past Medical History: Coronary Artery Disease (CAD), Chest Pain / Angina, COPD, Deep Vein Thrombosis (DVT), GERD/Reflux, Hyperlipidemia, Hypertension, Osteoarthritis (OA), Thyroid Disorder Additional Past Medical History / Comment(s): Occasional palpitations, gastritis, small hiatal hernia, diverticular dx, pt states years ago he had PUD, chronic low back pain, chronic pain syndrome, migraines, DVT L arm, numbn ess/tingling bilateral lower legs, bilateral past R hand fracture, arthritis multiple joints, hyperthyroid, sinus problems. History of Any Multi-Drug Resistant Organisms: None Reported Past Surgical History: Back Surgery, Cholecystectomy, Heart Catheterization With Stent, Orthopedic Surgery Additional Past Surgical History / Comment(s): EGDs/colonoscopies, multiple low back surgeries, bilateral arm and bilateral thigh surgeries for brown recluse spider bites with infection, morphine pain pump insertion and removal due to infection, PCI with stents, L rotator cuff repair, L knee arthroscopy, cervical fusion/cage, R cataract removal. Past Anesthesia/Blood Transfusion Reactions: No Reported Reaction Additional Past Anesthesia/Blood Transfusion Reaction / Comment(s): Pt states after cervical fusion he "" in the recovery room but does not know cause- he was"gone for 8 minutes" and states he was resusitated. Pt received blood after back surgery and tolerated it well. Date of Last Stent Placement:: 10/12/17 Past Psychological History: No Psychological Hx Reported Smoking Status: Former smoker Past Alcohol Use History: None Reported Past Drug Use History: None Reported - Past Family History Father Family Medical History: No Reported History Additional Family Medical History / Comment(s): Father had back problems. He lived to be 82 yrs old. Mother History Unknown: Yes Family Medical History: Hypertension, Myocardial Infarction ([place]) Additional Family Medical History / Comment(s): Mother of a [place] at the age of 55yrs. Brother(s) Family Medical History: Cancer, COPD Additional Family Medical History / Comment(s): Leukemia General Exam Limitations: no limitations General appearance: alert, in no apparent distress, other (This is a well-devel oped, well-nourished adult male patient in no acute distress. Vital signs upon presentation areTemperature 98.9F, pulse 111, respirations 18, blood pressure 150/88, 99% on room air.) Eye exam: Present: normal appearance, PERRL, EOMI. Absent: scleral icterus, conjunctival injection, periorbital swelling ENT exam: Present: normal exam, normal oropharynx, mucous membranes moist Respiratory exam: Present: normal lung sounds bilaterally. Absent: respiratory distress, wheezes, rales, rhonchi, stridor Cardiovascular Exam: Present: normal rhythm, tachycardia, normal heart sounds. Absent: systolic murmur, diastolic murmur, rubs, gallop, clicks GI/Abdominal exam: Present: soft, normal bowel sounds. Absent: distended, tenderness, guarding, rebound, rigid Neurological exam: Present: alert, oriented X3, CN II-XII intact Psychiatric exam: Present: normal affect, normal mood Skin exam: Present: warm, dry, intact, normal color. Absent: rash Course Vital Signs 03/11/20 03/11/20 03/11/20 21:39 21:42 22:00 Temperature 98.9 F Pulse Rate 111 H 109 H Respiratory 21 18 16 Rate Blood Pressure 150/88 150/88 O2 Sat by Pulse 99 Oximetry 03/11/20 03/12/20 23:00 00:00 Temperature Pulse Rate 105 H 100 Respiratory 16 16 Rate Blood Pressure 141/84 158/93 O2 Sat by Pulse 96 Oximetry EKG Findings - EKG Comments: EKG Findings:: EKG obtained at 2143 shows sinus tachycardia with a ventricular rate of 114, W[place] interval 184, QRS duration 94, QT 334, QTC 460. No evidence of ST elevation or depression. Medical Decision Making - Medical Decision Making 64-year-old male patient presents to the emergency department today for evaluation of chest pain. Physical examination with a clear equal lung sounds. No obvious distress. EKG showed sinus tachycardia. Labs reviewed and did revea l elevated d-dimer 0. 94. CTA was negative. Troponin was negative. He will be discharged to follow-up with his antique clock repairer for further evaluation as soon as possible. He is recommended to a primary care physician. Return parameters were discussed in detail. He verbalizes understanding and agrees with this plan. - Lab Data Result diagrams: 03/11/20 22:40 03/11/20 22:40 Lab Results 03/11/20 03/11/20 03/11/20 Range/Units 22:40 22:40 22:40 WBC 5.9 (3.8-10.6) k/uL RBC 4.39 (4.30-5.90) m/uL Hgb 12.5 L (13.0-17.5) gm/dL Hct 40.3 (39.0-53.0) % MCV 91.6 (80.0-100.0) fL MCH 28.4 (25.0-35.0) pg MCHC 31.0 (31.0-37.0) g/dL RDW 14.4 (11.5-15.5) % Plt Count 306 (150-450) k/uL Neutrophils % 77 % Lymphocytes % 13 % Monocytes % 5 % Eosinophils % 1 % Basophils % 0 % Neutrophils # 4.6 (1.3-7.7) k/uL Lymphocytes # 0.8 L (1.0-4.8) k/uL Monocytes # 0.3 (0-1.0) k/uL Eosinophils # 0.1 (0-0.7) k/uL Basophils # 0.0 (0-0.2) k/uL PT 9.5 (9.0-12.0) sec INR 0.9 (<1.2) APTT 21.7 L (22.0-30.0) sec D-Dimer 0.94 H (<0.60) mg/L FEU Sodium 135 L (137-145) mmol/L Potassium 4.8 (3.5-5.1) mmol/L Chloride 99 (98-107) mmol/L Carbon Dioxide 25 (22-30) mmol/L Anion Gap 11 mmol/L BUN 9 (9-20) mg/dL Creatinine 0.68 (0.66-1.25) mg/dL Est GFR (CKD-EPI)AfAm >90 (>60 ml/min/1.73 sqM) Est GFR (CKD-EPI)NonAf >90 (>60 ml/min/1.73 sqM) Glucose 163 H (74-99) mg/dL Calcium 9.0 (8.4-10.2) mg/dL Magnesium 2.2 (1.6-2.3) mg/dL Total Bilirubin 0.2 (0.2-1.3) mg/dL AST 25 (17-59) U/L ALT 11 (4-49) U/L Alkaline Phosphatase 89 (38-126) U/L Troponin I (0.000-0.034) ng/mL Total Protein 7.8 (6.3-8.2) g/dL Albumin 4.6 (3.5-5.0) g/dL 03/11/20 Range/Units 22:40 WBC (3.8-10.6) k/uL RBC (4.30-5.90) m/uL Hgb (13.0-17.5) gm/dL Hct (39.0-53.0) % MCV (80.0-100.0) fL MCH (25.0-35.0) pg MCHC (31.0-37.0) g/dL RDW (11.5-15.5) % Plt Count (150-450) k/uL Neutrophils % % Lymphocytes % % Monocytes % % Eosinophils % % Basophils % % Neutrophils # (1.3-7.7) k/uL Lymphocytes # (1.0-4.8) k/uL Monocytes # (0-1.0) k/uL Eosinophils # (0-0.7) k/uL Basophils # (0-0.2) k/uL PT (9.0-12.0) sec INR (<1.2) APTT (22.0-30.0) sec D-Dimer (<0.60) mg/L FEU Sodium (137-145) mmol/L Potassium (3.5-5.1) mmol/L Chloride (98-107) mmol/L Carbon Dioxide (22-30) mmol/L Anion Gap mmol/L BUN (9-20) mg/dL Creatinine (0.66-1.25) mg/dL Est GFR (CKD-EPI)AfAm (>60 ml/min/1.73 sqM) Est GFR (CKD-EPI)NonAf (>60 ml/min/1.73 sqM) Glucose (74-99) mg/dL Calcium (8.4-10.2) mg/dL Magnesium (1.6-2.3) mg/dL Total Bilirubin (0.2-1.3) mg/dL AST (17-59) U/L ALT (4-49) U/L Alkaline Phosphatase (38-126) U/L Troponin I <0.012 (0.000-0.034) ng/mL Total Protein (6.3-8.2) g/dL Albumin (3.5-5.0) g/dL - Radiology Data Radiology results: report reviewed, image reviewed CT chest angiography for PE was obtained. Report was reviewed in its entirety. Impression by Dr. Morrison shows no evidence of pulmonary embolism. There are mild pulmonary infiltrates and atelectasis at the posterior lung bases are essentially new compared to old exam. One view x-ray of the chest is obtained. Report was reviewed in its entirety. Impression by Dr. Morrison shows no active cardiopulmonary disease. No change Disposition Clinical Impression: Chest pain Disposition: HOME SELF-CARE Condition: Good Instructions (If sedation given, give patient instructions): Chest Pain (ED) Additional Instructions: Follow up with your primary care physician for recheck in 1-2 days. Return for any new, worsening, or concerning symptoms. Is patient prescribed a controlled substance at d/c from ED?: No Referrals: Nelson Almonte MD [STAFF PHYSICIAN] - 1-2 days Time of Disposition: 00:34
[2020-03-12] MEDS ORDERED: HYDROmorphone 1 MG/ML 1 ML SYRINGE IVP STA (00:36)
== END 2020-03-12 01:18 | disposition home or self-care (01) ==
LOC: EC 21:33
DX: R07.9 Chest pain, unspecified (principal); R00.0 Tachycardia, unspecified; R79.89 Other specified abnormal findings of blood chemistry; M79.89 Other specified soft tissue disorders; R11.0 Nausea; R06.02 Shortness of breath; R42 Dizziness and giddiness; I25.10 Atherosclerotic heart disease of native coronary artery without angina pectoris; J44.9 Chronic obstructive pulmonary disease, unspecified; I10 Essential (primary) hypertension; M19.90 Unspecified osteoarthritis, unspecified site; Z86.718 Personal history of other venous thrombosis and embolism; Z95.5 Presence of coronary angioplasty implant and graft; Z87.891 Personal history of nicotine dependence; Z82.49 Family history of ischemic heart disease and other diseases of the circulatory system; Z79.891 Long term (current) use of opiate analgesic; Z79.82 Long term (current) use of aspirin; Z79.899 Other long term (current) drug therapy; Z88.6 Allergy status to analgesic agent; Z53.29 Procedure and treatment not carried out because of patient's decision for other reasons
CPT/HCPCS: 36415; 93005; 85379; 80053; 83735; 84484; 85025; 85610; 85730; 71045; 71275; 99285; 96374; 96375; J2405; J1170; Q9967

== ENCOUNTER 2020-03-30 07:37 | Emergency (ER) | payer MEDICARE ==
[2020-03-30 07:45] VITALS: TEMP 98.2
--- NOTE | 2020-03-30 08:02 | ED ---
Extremity Problem HPI - General Chief complaint: Extremity Problem,Nontraumatic Stated complaint: swelling in both ankles Time Seen by Provider: 03/30/20 07:47 Source: patient, RN notes reviewed, old records reviewed Mode of arrival: ambulatory Limitations: no limitations - History of Present Illness Initial comments: Patient is a 64-year-old male well-known to the emergency department today. He presents emergency Department with complaints of lower extremity swelling worsening over the past day. He states that he uses 10 mg of Lasix daily. He reports that he's had no significant increase in salt messiah. He denies any shortness of breath cough and congestion. He states that he is really complaining of pain in his lower extremities. He reports that he had mild chest discomfort starting yesterday. Patient states that he denies any significant chest pain or crushing chest pain at this time. Complains of chronic upper abdominal pain and nausea. - Related Data Home Medications Medication Instructions Recorded Confirmed Fluticasone Nasal [place] [Flonase 1 spray EA NOSTRIL BID 04/20/17 03/11/20 Nasal [place]] Morphine Sulfate ER [Ms Contin] 30 mg PO Q8H 10/10/17 03/11/20 tiZANidine [Zanaflex] 4 mg PO TID PRN 02/26/18 03/11/20 Aspirin EC [Ecotrin Low Dose] 81 mg PO DAILY 01/02/20 03/11/20 Carvedilol [Coreg*] 12.5 mg PO AC-BID 01/02/20 03/11/20 Furosemide [Lasix] 20 mg PO DAILY PRN 01/02/20 03/11/20 Gabapentin [Neurontin] 300 mg PO TID PRN 01/02/20 03/11/20 oxyCODONE-APAP 10-325MG [Percocet 1 tab PO Q8H PRN 01/02/20 03/11/20 10-325 mg] Previous Rx's Medication Instructions Recorded Atorvastatin [Lipitor] 80 mg PO HS #30 tab 10/12/17 cloNIDine HCL [Catapres] 0.1 mg PO BID #60 tab 02/08/19 Ezetimibe [Zetia] 10 mg PO DAILY #30 tab 05/24/19 amLODIPine [Norvasc] 5 mg PO BID #60 tab 05/24/19 Nitroglycerin Sl Tabs [Nitrostat] 0.4 mg SUBLINGUAL Q5M PRN #20 tab 07/02/19 Lisinopril 40 mg PO DAILY #14 tab 07/30/19 Dicyclomine [Bentyl] 20 mg PO QID #12 tablet 12/30/19 Furosemide [Lasix] 40 mg PO BID #10 tablet 02/04/20 Furosemide [Lasix] 40 mg PO BID #8 tablet 03/30/20 Allergies Allergy/AdvReac Type Severity Reaction Status Date / Time ibuprofen [From Motrin] Allergy Rash/Hives Verified 03/11/20 22:46 ketorolac tromethamine Allergy Rash/Hives Verified 03/11/20 22:46 [From Toradol] Review of Systems ROS Statement: Those systems with pertinent positive or pertinent negative responses have been documented in the HPI. ROS Other: All systems not noted in ROS Statement are negative. Past Medical History Past Medical History: Coronary Artery Disease (CAD), Chest Pain / Angina, COPD, Deep Vein Thrombosis (DVT), GERD/Reflux, Hyperlipidemia, Hypertension, Osteoarthritis (OA), Thyroid Disorder Additional Past Medical History / Comment(s): Occasional palpitations, gastritis, small hiatal hernia, diverticular dx, pt states years ago he had PUD, chronic low back pain, chronic pain syndrome, migraines, DVT L arm, numbness/tingling bilateral lower legs, bilateral past R hand fracture, arthritis multiple joints, hyperthyroid, sinus problems. History of Any Multi-Drug Resistant Organisms: None Reported Past Surgical History: Back Surgery, Cholecystectomy, Heart Catheterization With Stent, Orthopedic Surgery Additional Past Surgical History / Comment(s): EGDs/colonoscopies, multiple low back surgeries, bilateral arm and bilateral thigh surgeries for brown recluse spider bites with infection, morphine pain pump insertion and removal due to infection, PCI with stents, L rotator cuff repair, L knee arthroscopy, cervical fusion/cage, R cataract removal. Past Anesthesia/Blood Transfusion Reactions: No Reported Reaction Additional Past Anesthesia/Blood Transfusion Reaction / Comment(s): Pt states after cervical fusion he "" in the recovery room but does not know cause- he was"gone for 8 minutes" and states he was resusitated. Pt received blood after back surgery and tolerated it well. Date of Last Stent Placement:: 10/12/17 Past Psychological History: No Psychological Hx Reported Smoking Status: Former smoker Past Alcohol Use History: None Reported Past Drug Use History: None Reported - Past Family History Father Family Medical History: No Reported History Additional Family Medical History / Comment(s): Father had back problems. He lived to be 82 yrs old. Mother History Unknown: Yes Family Medical History: Hypertension, Myocardial Infarction ([place]) Additional Family Medical History / Comment(s): Mother of a [place] at the age of 55yrs. Brother(s) Family Medical History: Cancer, COPD Additional Family Medical History / Comment(s): Leukemia General Exam - General Exam Comments Initial Comments: Alert and oriented 64-year-old male. No significant distress. Limitations: no limitations General appearance: alert, in no apparent distress Head exam: Present: atraumatic, normocephalic, normal inspection Eye exam: Present: normal appearance, PERRL, EOMI. Absent: scleral icterus, c onjunctival injection, periorbital swelling ENT exam: Present: normal exam Neck exam: Present: normal inspection. Absent: tenderness, meningismus, ly mphadenopathy Respiratory exam: Present: normal lung sounds bilaterally. Absent: respiratory distress, wheezes, rales, rhonchi, stridor Cardiovascular Exam: Present: regular rate, normal rhythm, normal heart sounds. Absent: systolic murmur, diastolic murmur, rubs, gallop, clicks GI/Abdominal exam: Present: soft, normal bowel sounds. Absent: distended, tenderness, guarding, rebound, rigid Extremities exam: Present: normal inspection, full ROM, normal capillary refill, other (2+ pitting edema bilaterally.). Absent: tenderness, pedal edema, joint swelling, calf tenderness Back exam: Present: normal inspection Neurological exam: Present: alert, oriented X3, CN II-XII intact Psychiatric exam: Present: normal affect, normal mood Skin exam: Present: warm, dry, intact, normal color. Absent: rash Course Vital Signs 03/30/20 03/30/20 07:40 09:51 Temperature 98.2 F Pulse Rate 90 67 Respiratory 18 16 Rate Blood Pressure 126/78 126/86 O2 Sat by Pulse 96 95 Oximetry Medical Decision Making - Medical Decision Making Patient is a 64-year-old male well-known to emergency department. He presents today with worsening bilateral lower extremity edema for the past 2 days he has NO CALF tenderness.. He does have 2+ edema bilaterally. No chest pain shortness breath. Lungs are clear. BMP and CBC are unremarkable. Troponin is negative EKG shows normal syndrome. Minimally the pain is lower extremities. Discussed no further pain medication from the ER. Discussed that she needs to increase Lasix. Given a dose of furosemide. And advised to double his dose for the next few days. Patient is agreeable to treatment plan will comply. Return parameters were discussed. - Lab Data Result diagrams: 03/30/20 09:00 Lab Results 03/30/20 03/30/20 03/30/20 Range/Units 09:00 09:00 09:00 Sodium 135 L (137-145) mmol/L Potassium 4.4 (3.5-5.1) mmol/L Chloride 103 (98-107) mmol/L Carbon Dioxide 22 (22-30) mmol/L Anion Gap 10 mmol/L BUN 11 (9-20) mg/dL Creatinine 0.58 L (0.66-1.25) mg/dL Est GFR (CKD-EPI)AfAm >90 (>60 ml/min/1.73 sqM) Est GFR (CKD-EPI)NonAf >90 (>60 ml/min/1.73 sqM) Glucose 117 H (74-99) mg/dL Calcium 9.1 (8.4-10.2) mg/dL Troponin I <0.012 (0.000-0.034) ng/mL NT-Pro-B Natriuret Pep pg/mL Urine Color Colorless Urine Appearance Clear (Clear) Urine pH 5.0 (5.0-8.0) Ur Specific [place] 1.006 (1.001-1.035) Urine Protein Negative (Negative) Urine Glucose (UA) Negative (Negative) Urine Ketones Negative (Negative) Urine Blood Negative (Negative) Urine Nitrite Negative (Negative) Urine Bilirubin Negative (Negative) Urine Urobilinogen <2.0 (<2.0) mg/dL Ur Leukocyte Esterase Negative (Negative) 03/30/20 Range/Units 09:00 Sodium (137-145) mmol/L Potassium (3.5-5.1) mmol/L Chloride (98-107) mmol/L Carbon Dioxide (22-30) mmol/L Anion Gap mmol/L BUN (9-20) mg/dL Creatinine (0.66-1.25) mg/dL Est GFR (CKD-EPI)AfAm (>60 ml/min/1.73 sqM) Est GFR (CKD-EPI)NonAf (>60 ml/min/1.73 sqM) Glucose (74-99) mg/dL Calcium (8.4-10.2) mg/dL Troponin I (0.000-0.034) ng/mL NT-Pro-B Natriuret Pep 69 pg/mL Urine Color Urine Appearance (Clear) Urine pH (5.0-8.0) Ur Specific [place] (1.001-1.035) Urine Protein (Negative) Urine Glucose (UA) (Negative) Urine Ketones (Negative) Urine Blood (Negative) Urine Nitrite (Negative) Urine Bilirubin (Negative) Urine Urobilinogen (<2.0) mg/dL Ur Leukocyte Esterase (Negative) 03/30/20 09:09 EKG shows normal sinus rhythm normally today. 60 bpm. Was 184 ms. QRS ration is 90 ms. QT QTc is 404/429 ms. Disposition Clinical Impression: Peripheral edema Disposition: HOME SELF-CARE Condition: Good Instructions (If sedation given, give patient instructions): Leg Edema (ED) Additional Instructions: Please use medication as discussed by increasing lasix over the next 3 days to 40mg twice a day. Please follow up with family doctor if symptoms have not improved over the next two days. Please return to the emergency room if your symptoms increase or worsen or for any other concerns. Prescriptions: Furosemide [Lasix] 40 mg PO BID #8 tablet Is patient prescribed a controlled substance at d/c from ED?: No Referrals: None,Stated [Primary Care Provider] - 1-2 days Time of Disposition: 10:07
[2020-03-30 09:24] LABS: Appearance,Urine Clear (Clear); Bilirubin,Urine Negative (Negative); Blood,Urine Negative (Negative); Color,Urine Colorless; Glucose,Urine (UA) Negative (Negative); Ketones,Urine Negative (Negative); Leukocyte Esterase,Urine Negative (Negative); Nitrite,Urine Negative (Negative); Protein,Urine Negative (Negative); Specific Gravity,Urine 1.006 (1.001-1.035); Urobilinogen,Urine <2.0 mg/dL (<2.0)
[2020-03-30 09:32] LABS: African American GFR (CKD) >90 (>60 ml/min/1.73 sqM); Anion Gap 10 mmol/L; Blood Urea Nitrogen 11 mg/dL (9-20); Calcium 9.1 mg/dL (8.4-10.2); Carbon Dioxide 22 mmol/L (22-30); Chloride 103 mmol/L (98-107); Glucose 117 mg/dL (74-99); Non-African American GFR(CKD) >90 (>60 ml/min/1.73 sqM); Potassium 4.4 mmol/L (3.5-5.1); Sodium 135 mmol/L (137-145)
[2020-03-30 09:52] VITALS: RESP 16
[2020-03-30] MEDS ORDERED: FUROSEMIDE 40 MG TAB PO STA (10:04)
[2020-03-30 10:34] VITALS: BP 122/78; PULSE 65
== END 2020-03-30 10:33 | disposition home or self-care (01) ==
LOC: EC 07:37
DX: R60.0 Localized edema (principal); I25.119 Atherosclerotic heart disease of native coronary artery with unspecified angina pectoris; J44.9 Chronic obstructive pulmonary disease, unspecified; I10 Essential (primary) hypertension; Z79.51 Long term (current) use of inhaled steroids; Z79.82 Long term (current) use of aspirin; Z79.02 Long term (current) use of antithrombotics/antiplatelets; Z79.899 Other long term (current) drug therapy; Z88.6 Allergy status to analgesic agent; Z88.5 Allergy status to narcotic agent; Z87.891 Personal history of nicotine dependence; Z86.718 Personal history of other venous thrombosis and embolism; Z95.5 Presence of coronary angioplasty implant and graft
CPT/HCPCS: 36415; 80048; 81003; 83880; 84484; 93005; 99284

== ENCOUNTER 2020-04-04 01:51 | Emergency (ER) | payer MEDICARE ==
--- NOTE | 2020-04-04 02:20 | ED ---
Extremity Problem HPI - General Chief complaint: Extremity Problem,Nontraumatic Stated complaint: Leg Swelling Time Seen by Provider: 04/04/20 01:58 Source: patient, EMS Mode of arrival: EMS Limitations: no limitations - History of Present Illness MD Complaint: extremity swelling Onset/Timin -: days(s) Location: bilateral lower extremity History of Same: Yes Quality: dull Consistency: constant Improves with: elevation Worsens with: nothing Associated Symptoms: denies other symptoms - Related Data Home Medications Medication Instructions Recorded Confirmed Fluticasone Nasal [place] [Flonase 1 spray EA NOSTRIL BID 04/20/17 03/11/20 Nasal [place]] Morphine Sulfate ER [Ms Contin] 30 mg PO Q8H 10/10/17 03/11/20 tiZANidine [Zanaflex] 4 mg PO TID PRN 02/26/18 03/11/20 Aspirin EC [Ecotrin Low Dose] 81 mg PO DAILY 01/02/20 03/11/20 Carvedilol [Coreg*] 12.5 mg PO AC-BID 01/02/20 03/11/20 Furosemide [Lasix] 20 mg PO DAILY PRN 01/02/20 03/11/20 Gabapentin [Neurontin] 300 mg PO TID PRN 01/02/20 03/11/20 oxyCODONE-APAP 10-325MG [Percocet 1 tab PO Q8H PRN 01/02/20 03/11/20 10-325 mg] Previous Rx's Medication Instructions Recorded Atorvastatin [Lipitor] 80 mg PO HS #30 tab 10/12/17 cloNIDine HCL [Catapres] 0.1 mg PO BID #60 tab 02/08/19 Ezetimibe [Zetia] 10 mg PO DAILY #30 tab 05/24/19 amLODIPine [Norvasc] 5 mg PO BID #60 tab 05/24/19 Nitroglycerin Sl Tabs [Nitrostat] 0.4 mg SUBLINGUAL Q5M PRN #20 tab 07/02/19 Lisinopril 40 mg PO DAILY #14 tab 07/30/19 Dicyclomine [Bentyl] 20 mg PO QID #12 tablet 12/30/19 Furosemide [Lasix] 40 mg PO BID #10 tablet 02/04/20 Furosemide [Lasix] 40 mg PO BID #8 tablet 03/30/20 Furosemide [Lasix] 20 mg PO BID #6 tab 04/04/20 Allergies Allergy/AdvReac Type Severity Reaction Status Date / Time ibuprofen [From Motrin] Allergy Rash/Hives Verified 03/11/20 22:46 ketorolac tromethamine Allergy Rash/Hives Verified 03/11/20 22:46 [From Toradol] Review of Systems ROS Statement: Those systems with pertinent positive or pertinent negative responses have been documented in the HPI. ROS Other: All systems not noted in ROS Statement are negative. Constitutional: Denies: fever, chills Respiratory: Denies: cough, dyspnea, hemoptysis Cardiovascular: Reports: edema. Denies: chest pain, orthopnea Gastrointestinal: Denies: abdominal pain, vomiting Skin: Denies: rash Neurological: Denies: weakness, numbness, paresthesias Past Medical History Past Medical History: Coronary Artery Disease (CAD), Chest Pain / Angina, COPD, Deep Vein Thrombosis (DVT), GERD/Reflux, Hyperlipidemia, Hypertension, Osteoarthritis (OA), Thyroid Disorder Additional Past Medical History / Comment(s): Occasional palpitations, gastritis, small hiatal hernia, diverticular dx, pt states years ago he had PUD, chronic low back pain, chronic pain syndrome, migraines, DVT L arm, numb ness/tingling bilateral lower legs, bilateral past R hand fracture, arthritis multiple joints, hyperthyroid, sinus problems. History of Any Multi-Drug Resistant Organisms: None Reported Past Surgical History: Back Surgery, Cholecystectomy, Heart Catheterization With Stent, Orthopedic Surgery Additional Past Surgical History / Comment(s): EGDs/colonoscopies, multiple low back surgeries, bilateral arm and bilateral thigh surgeries for brown recluse spider bites with infection, morphine pain pump insertion and removal due to infection, PCI with stents, L rotator cuff repair, L knee arthroscopy, cervical fusion/cage, R cataract removal. Past Anesthesia/Blood Transfusion Reactions: No Reported Reaction Additional Past Anesthesia/Blood Transfusion Reaction / Comment(s): Pt states after cervical fusion he "" in the recovery room but does not know cause- he was"gone for 8 minutes" and states he was resusitated. Pt received blood after back surgery and tolerated it well. Date of Last Stent Placement:: 10/12/17 Past Psychological History: No Psychological Hx Reported Smoking Status: Former smoker Past Alcohol Use History: None Reported Past Drug Use History: None Reported - Past Family History Father Family Medical History: No Reported History Additional Family Medical History / Comment(s): Father had back problems. He lived to be 82 yrs old. Mother History Unknown: Yes Family Medical History: Hypertension, Myocardial Infarction ([place]) Additional Family Medical History / Comment(s): Mother of a [place] at the age of 55yrs. Brother(s) Family Medical History: Cancer, COPD Additional Family Medical History / Comment(s): Leukemia General Exam Limitations: no limitations General appearance: alert, in no apparent distress Head exam: Present: atraumatic, normocephalic Respiratory exam: Present: normal lung sounds bilaterally. Absent: respiratory distress, wheezes, rales, rhonchi, stridor Cardiovascular Exam: Present: regular rate, normal rhythm, normal heart sounds. Absent: systolic murmur, diastolic murmur, rubs, gallop GI/Abdominal exam: Present: soft. Absent: distended, tenderness, guarding, rebound, mass, pulsatile mass Extremities exam: Present: normal inspection, normal capillary refill, pedal edema. Absent: calf tenderness Neurological exam: Present: alert Skin exam: Present: warm, dry, intact, normal color. Absent: rash Course Vital Signs 04/04/20 01:52 Temperature 98.9 F Pulse Rate 97 Respiratory 17 Rate Blood Pressure 134/86 O2 Sat by Pulse 98 Oximetry Medical Decision Making - Lab Data Result diagrams: 04/04/20 02:32 04/04/20 02:32 Lab Results 04/04/20 04/04/20 04/04/20 Range/Units 02:32 02:32 02:32 WBC 3.7 L (3.8-10.6) k/uL RBC 4.48 (4.30-5.90) m/uL Hgb 12.9 L (13.0-17.5) gm/dL Hct 40.3 (39.0-53.0) % MCV 89.9 (80.0-100.0) fL MCH 28.8 (25.0-35.0) pg MCHC 32.1 (31.0-37.0) g/dL RDW 14.0 (11.5-15.5) % Plt Count 302 (150-450) k/uL Neutrophils % 57 % Lymphocytes % 29 % Monocytes % 8 % Eosinophils % 2 % Basophils % 1 % Neutrophils # 2.1 (1.3-7.7) k/uL Lymphocytes # 1.1 (1.0-4.8) k/uL Monocytes # 0.3 (0-1.0) k/uL Eosinophils # 0.1 (0-0.7) k/uL Basophils # 0.0 (0-0.2) k/uL D-Dimer 0.97 H (<0.60) mg/L FEU Sodium 134 L (137-145) mmol/L Potassium 3.9 (3.5-5.1) mmol/L Chloride 95 L (98-107) mmol/L Carbon Dioxide 30 (22-30) mmol/L Anion Gap 9 mmol/L BUN 15 (9-20) mg/dL Creatinine 0.63 L (0.66-1.25) mg/dL Est GFR (CKD-EPI)AfAm >90 (>60 ml/min/1.73 sqM) Est GFR (CKD-EPI)NonAf >90 (>60 ml/min/1.73 sqM) Glucose 121 H (74-99) mg/dL Calcium 9.5 (8.4-10.2) mg/dL Total Bilirubin 0.3 (0.2-1.3) mg/dL AST 23 (17-59) U/L ALT 9 (4-49) U/L Alkaline Phosphatase 96 (38-126) U/L Total Protein 8.0 (6.3-8.2) g/dL Albumin 4.8 (3.5-5.0) g/dL - EKG Data -: EKG Interpreted by Mo EKG shows normal: sinus rhythm, axis (Normal), intervals (Normal), QRS complexes (Normal), ST-T waves (Normal) Rate: normal (Rate 100 bpm) Disposition Clinical Impression: Peripheral edema Disposition: HOME SELF-CARE Condition: Good Instructions (If sedation given, give patient instructions): Leg Edema (ED) Prescriptions: Furosemide [Lasix] 20 mg PO BID #6 tab Is patient prescribed a controlled substance at d/c from ED?: No Referrals: None,Stated [Primary Care Provider] - 1-2 days
[2020-04-04 02:47] LABS: Basophils % (A) 1 %; Eosinophils # (A) 0.1 k/uL (0-0.7); Eosinophils % (A) 2 %; HCT 40.3 % (39.0-53.0); HGB 12.9 gm/dL (13.0-17.5); Lymphocytes # (A) 1.1 k/uL (1.0-4.8); Lymphocytes % (A) 29 %; MCH 28.8 pg (25.0-35.0); MCHC 32.1 g/dL (31.0-37.0); MCV 89.9 fL (80.0-100.0); Mean Platelet Volume 6.7; Monocytes # (A) 0.3 k/uL (0-1.0); Monocytes % (A) 8 %; Neutrophils # (A) 2.1 k/uL (1.3-7.7); Neutrophils % (A) 57 %; Platelet Count 302 k/uL (150-450); RBC 4.48 m/uL (4.30-5.90); WBC 3.7 k/uL (3.8-10.6)
[2020-04-04] MEDS ORDERED: oxyCODONE-APAP 10-325MG 1 EACH TAB PO STA (02:52)
[2020-04-04 03:06] LABS: ALT 9 U/L (4-49); AST 23 U/L (17-59); African American GFR (CKD) >90 (>60 ml/min/1.73 sqM); Albumin 4.8 g/dL (3.5-5.0); Alkaline Phosphatase 96 U/L (38-126); Anion Gap 9 mmol/L; Blood Urea Nitrogen 15 mg/dL (9-20); Calcium 9.5 mg/dL (8.4-10.2); Carbon Dioxide 30 mmol/L (22-30); Chloride 95 mmol/L (98-107); Glucose 121 mg/dL (74-99); Non-African American GFR(CKD) >90 (>60 ml/min/1.73 sqM); Potassium 3.9 mmol/L (3.5-5.1); Sodium 134 mmol/L (137-145); Total Bilirubin 0.3 mg/dL (0.2-1.3)
[2020-04-04] MEDS ORDERED: FUROSEMIDE 40 MG TAB PO STA (03:57)
[2020-04-04 04:02] VITALS: BP 137/93; PULSE 90; RESP 16; TEMP 97.9
== END 2020-04-04 04:52 | disposition home or self-care (01) ==
LOC: EC 01:51
DX: R60.0 Localized edema (principal); I25.119 Atherosclerotic heart disease of native coronary artery with unspecified angina pectoris; J44.9 Chronic obstructive pulmonary disease, unspecified; I10 Essential (primary) hypertension; Z79.51 Long term (current) use of inhaled steroids; Z79.82 Long term (current) use of aspirin; Z79.02 Long term (current) use of antithrombotics/antiplatelets; Z88.5 Allergy status to narcotic agent; Z88.6 Allergy status to analgesic agent; Z87.891 Personal history of nicotine dependence; Z95.5 Presence of coronary angioplasty implant and graft; Z86.718 Personal history of other venous thrombosis and embolism; Z98.1 Arthrodesis status
CPT/HCPCS: 36415; 80053; 85025; 85379; 99284

== ENCOUNTER 2020-04-23 09:55 | Emergency (ER) | payer MEDICARE ==
[2020-04-23 10:33] VITALS: RESP 18; TEMP 98.1
[2020-04-23] MEDS ORDERED: HYDROmorphone 1 MG/ML 1 ML SYRINGE IM STA (10:47)
[2020-04-23] MEDS ORDERED: ONDANSETRON 4 MG/2 ML VIAL IM STA (10:47)
--- NOTE | 2020-04-23 10:49 | ED ---
Headache HPI - General Chief Complaint: Headache Stated Complaint: migraine Time Seen by Provider: 04/23/20 10:36 Mode of arrival: ambulatory Limitations: no limitations - History of Present Illness Initial Comments: Patient is 64-year-old male with history of migraines presenting to emergency Department with a chief to the migraine. Patient reports this started early this morning with a gradual onset. Patient reports also headache located in the frontal region radiating to the bilateral temporal regions. He does report nausea but no vomiting. Does report photophobia. He also reports seeing [id number] lines. States this is all normal for him. States he takes morphine and Percocets daily but ran out of this medication yesterday and is going to see his pain management doctor tomorrow. States these typically work well for him. Denies one-sided weakness or paresthesias. Patient does receive occipital nerve blocks for his migraines from his pain management physician. - Related Data Home Medications Medication Instructions Recorded Confirmed Fluticasone Nasal [place] [Flonase 1 spray EA NOSTRIL BID 04/20/17 03/11/20 Nasal [place]] Morphine Sulfate ER [Ms Contin] 30 mg PO Q8H 10/10/17 03/11/20 tiZANidine [Zanaflex] 4 mg PO TID PRN 02/26/18 03/11/20 Aspirin EC [Ecotrin Low Dose] 81 mg PO DAILY 01/02/20 03/11/20 Carvedilol [Coreg*] 12.5 mg PO AC-BID 01/02/20 03/11/20 Furosemide [Lasix] 20 mg PO DAILY PRN 01/02/20 03/11/20 Gabapentin [Neurontin] 300 mg PO TID PRN 01/02/20 03/11/20 oxyCODONE-APAP 10-325MG [Percocet 1 tab PO Q8H PRN 01/02/20 03/11/20 10-325 mg] Previous Rx's Medication Instructions Recorded Atorvastatin [Lipitor] 80 mg PO HS #30 tab 10/12/17 cloNIDine HCL [Catapres] 0.1 mg PO BID #60 tab 02/08/19 Ezetimibe [Zetia] 10 mg PO DAILY #30 tab 05/24/19 amLODIPine [Norvasc] 5 mg PO BID #60 tab 05/24/19 Nitroglycerin Sl Tabs [Nitrostat] 0.4 mg SUBLINGUAL Q5M PRN #20 tab 07/02/19 Lisinopril 40 mg PO DAILY #14 tab 07/30/19 Dicyclomine [Bentyl] 20 mg PO QID #12 tablet 12/30/19 Furosemide [Lasix] 40 mg PO BID #10 tablet 02/04/20 Furosemide [Lasix] 40 mg PO BID #8 tablet 03/30/20 Furosemide [Lasix] 20 mg PO BID #6 tab 04/04/20 Allergies Allergy/AdvReac Type Severity Reaction Status Date / Time ibuprofen [From Motrin] Allergy Rash/Hives Verified 04/23/20 10:32 ketorolac tromethamine Allergy Rash/Hives Verified 04/23/20 10:32 [From Toradol] Review of Systems ROS Statement: Those systems with pertinent positive or pertinent negative responses have been documented in the HPI. ROS Other: All systems not noted in ROS Statement are negative. Past Medical History Past Medical History: Coronary Artery Disease (CAD), Chest Pain / Angina, COPD, Deep Vein Thrombosis (DVT), GERD/Reflux, Hyperlipidemia, Hypertension, Osteoarthritis (OA), Thyroid Disorder Additional Past Medical History / Comment(s): Occasional palpitations, gastritis, small hiatal hernia, diverticular dx, pt states years ago he had PUD, chronic low back pain, chronic pain syndrome, migraines, DVT L arm, numbness/tingling bilateral lower legs, bilateral past R hand fracture, art hritis multiple joints, hyperthyroid, sinus problems. History of Any Multi-Drug Resistant Organisms: None Reported Past Surgical History: Back Surgery, Cholecystectomy, Heart Catheterization With Stent, Orthopedic Surgery Additional Past Surgical History / Comment(s): EGDs/colonoscopies, multiple low back surgeries, bilateral arm and bilateral thigh surgeries for brown recluse spider bites with infection, morphine pain pump insertion and removal due to infection, PCI with stents, L rotator cuff repair, L knee arthroscopy, cervical fusion/cage, R cataract removal. Past Anesthesia/Blood Transfusion Reactions: No Reported Reaction Additional Past Anesthesia/Blood Transfusion Reaction / Comment(s): Pt states after cervical fusion he "" in the recovery room but does not know cause- he was"gone for 8 minutes" and states he was resusitated. Pt received blood after back surgery and tolerated it well. Date of Last Stent Placement:: 10/12/17 Past Psychological History: No Psychological Hx Reported Smoking Status: Former smoker Past Alcohol Use History: None Reported Past Drug Use History: None Reported - Past Family History Father Family Medical History: No Reported History Additional Family Medical History / Comment(s): Father had back problems. He lived to be 82 yrs old. Mother History Unknown: Yes Family Medical History: Hypertension, Myocardial Infarction ([place]) Additional Family Medical History / Comment(s): Mother of a [place] at the age of 55yrs. Brother(s) Family Medical History: Cancer, COPD Additional Family Medical History / Comment(s): Leukemia General Exam Limitations: no limitations General appearance: alert, in no apparent distress Head exam: Present: atraumatic, normocephalic, normal inspection Eye exam: Present: normal appearance, PERRL, EOMI Pupils: Present: normal accommodation ENT exam: Present: normal exam, normal oropharynx, mucous membranes moist Neck exam: Present: normal inspection, full ROM Respiratory exam: Present: normal lung sounds bilaterally Cardiovascular Exam: Present: regular rate, normal rhythm, normal heart sounds Extremities exam: Present: normal inspection, full ROM, normal capillary refill, other (+2 ulnar and radial pulses bilaterally.) Back exam: Present: normal inspection, full ROM Neurological exam: Present: alert, oriented X3, CN II-XII intact, normal gait, reflexes normal Psychiatric exam: Present: normal affect, normal mood Skin exam: Present: warm, dry, intact, normal color Course Vital Signs 04/23/20 10:30 Temperature 98.1 F Pulse Rate 89 Respiratory 18 Rate Blood Pressure 122/81 O2 Sat by Pulse 100 Oximetry Medical Decision Making - Medical Decision Making Patient is 64-year-old male with history of migraines presenting to emergency Department with a chief complaint of a migraine. This is a gradual onset of a headache mostly located to the frontal region. States this is not the worst headache of his life. Patient did report black and white squiggly lines suggesting possible migraine with aura. Patient did also have nausea and photophobia. Patient was given antiemetics and Dilaudid. Patient requested these medications that they typically help him with the pain. No one-sided weakness or paresthesias. Neurological examination is unremarkable. Patient also takes Percocets and morphine daily for pain that is prescribed by pain management physician. He also receives occipital nerve block for his headaches. Patient has an appointment tomorrow to see his pain management physician. Return parameters thoroughly discussed the patient is understanding and agreeable. Case discussed with physician. Disposition Clinical Impression: Headache, Migraine Disposition: HOME SELF-CARE Condition: Good Instructions (If sedation given, give patient instructions): Acute Headache (ED) Additional Instructions: Follow-up with her pain management physician. Return to emergency department if symptoms worsen. Drink lots of fluids. Is patient prescribed a controlled substance at d/c from ED?: No Referrals: None,Stated [Primary Care Provider] - 1-2 days Time of Disposition: 12:09
[2020-04-23 12:33] VITALS: BP 146/92; PULSE 82
== END 2020-04-23 12:30 | disposition home or self-care (01) ==
LOC: EC 09:55
DX: G43.909 Migraine, unspecified, not intractable, without status migrainosus (principal); I25.119 Atherosclerotic heart disease of native coronary artery with unspecified angina pectoris; J44.9 Chronic obstructive pulmonary disease, unspecified; I10 Essential (primary) hypertension; Z79.51 Long term (current) use of inhaled steroids; Z79.82 Long term (current) use of aspirin; Z79.02 Long term (current) use of antithrombotics/antiplatelets; Z79.899 Other long term (current) drug therapy; Z88.6 Allergy status to analgesic agent; Z88.5 Allergy status to narcotic agent; Z95.5 Presence of coronary angioplasty implant and graft; Z87.891 Personal history of nicotine dependence; Z86.718 Personal history of other venous thrombosis and embolism; Z98.1 Arthrodesis status
CPT/HCPCS: 99283; 96372 ×2; J2405; J1170

== ENCOUNTER 2020-05-02 17:15 | Observation (INO) | payer MEDICARE, OTHER ==
[2020-05-02] MEDS ORDERED: ASPIRIN 81 MG PO STA (17:43)
[2020-05-02] MEDS ORDERED: NITROGLYCERIN OINT 1 INCH/GM PACKET TOPICAL STA (17:43)
--- NOTE | 2020-05-02 17:46 | ED ---
General Adult HPI - General Chief complaint: Chest Pain Stated complaint: Chest pain Time Seen by Provider: 05/02/20 17:25 Source: patient, RN notes reviewed, old records reviewed Mode of arrival: wheelchair Limitations: no limitations - History of Present Illness Initial comments: This is a 64-year-old male who presents emergency Department with an extensive cardiac history. Patient states he started having chest pressure yesterday radiating down his left arm. Patient also states he has been somewhat short of breath. Patient denies any fever chills or cough. Patient states he does notice that he has had some increased swelling to his legs. Patient denies any palpitations. Patient denies any headache patient denies numbness weakness. Patient denies lightheadedness or dizziness. Patient denies any abdominal pain patient denies nausea vomiting diarrhea. - Related Data Home Medications Medication Instructions Recorded Confirmed Fluticasone Nasal [place] [Flonase 1 spray EA NOSTRIL BID 04/20/17 05/02/20 Nasal [place]] Morphine Sulfate ER [Ms Contin] 30 mg PO Q8H 10/10/17 05/02/20 tiZANidine [Zanaflex] 4 mg PO TID PRN 02/26/18 05/02/20 Aspirin EC [Ecotrin Low Dose] 81 mg PO DAILY 01/02/20 05/02/20 Carvedilol [Coreg*] 12.5 mg PO AC-BID 01/02/20 05/02/20 Gabapentin [Neurontin] 300 mg PO TID 01/02/20 05/02/20 oxyCODONE-APAP 10-325MG [Percocet 1 tab PO Q8H PRN 01/02/20 05/02/20 10-325 mg] Dicyclomine [Bentyl] 10 mg PO QID 05/02/20 05/02/20 Pantoprazole Sodium [Protonix] 40 mg PO DAILY 05/02/20 05/02/20 Previous Rx's Medication Instructions Recorded Atorvastatin [Lipitor] 80 mg PO HS #30 tab 10/12/17 cloNIDine HCL [Catapres] 0.1 mg PO BID #60 tab 02/08/19 Ezetimibe [Zetia] 10 mg PO DAILY #30 tab 05/24/19 amLODIPine [Norvasc] 5 mg PO BID #60 tab 05/24/19 Nitroglycerin Sl Tabs [Nitrostat] 0.4 mg SUBLINGUAL Q5M PRN #20 tab 07/02/19 Lisinopril 40 mg PO DAILY #14 tab 07/30/19 Furosemide [Lasix] 40 mg PO BID #8 tablet 03/30/20 Allergies Allergy/AdvReac Type Severity Reaction Status Date / Time ibuprofen [From Motrin] Allergy Rash/Hives Verified 05/02/20 17:48 ketorolac tromethamine Allergy Rash/Hives Verified 05/02/20 17:48 [From Toradol] Review of Systems ROS Statement: Those systems with pertinent positive or pertinent negative responses have been documented in the HPI. ROS Other: All systems not noted in ROS Statement are negative. Past Medical History Past Medical History: Coronary Artery Disease (CAD), Chest Pain / Angina, COPD, Deep Vein Thrombosis (DVT), GERD/Reflux, Hyperlipidemia, Hypertension, Osteoarthritis (OA), Thyroid Disorder Additional Past Medical History / Comment(s): Occasional palpitations, gastritis, small hiatal hernia, diverticular dx, pt states years ago he had PUD, chronic low back pain, chronic pain syndrome, migraines, DVT L arm, numbness/tingling bilateral lower legs, bilateral past R hand fracture, arthritis multiple joints, hyperthyroid, sinus problems. History of Any Multi-Drug Resistant Organisms: None Reported Past Surgical History: Back Surgery, Cholecystectomy, Heart Catheterization With Stent, Orthopedic Surgery Additional Past Surgical History / Comment(s): EGDs/colonoscopies, multiple low back surgeries, bilateral arm and bilateral thigh surgeries for brown recluse spider bites with infection, morphine pain pump insertion and removal due to infection, PCI with stents, L rotator cuff repair, L knee arthroscopy, cervical fusion/cage, R cataract removal. Past Anesthesia/Blood Transfusion Reactions: No Reported Reaction Additional Past Anesthesia/Blood Transfusion Reaction / Comment(s): Pt states after cervical fusion he "" in the recovery room but does not know cause- he was"gone for 8 minutes" and states he was resusitated. Pt received blood after back surgery and tolerated it well. Date of Last Stent Placement:: 10/12/17 Past Psychological History: No Psychological Hx Reported Smoking Status: Former smoker Past Alcohol Use History: None Reported Past Drug Use History: None Reported - Past Family History Father Family Medical History: No Reported History Additional Family Medical History / Comment(s): Father had back problems. He lived to be 82 yrs old. Mother History Unknown: Yes Family Medical History: Hypertension, Myocardial Infarction ([place]) Additional Family Medical History / Comment(s): Mother of a [place] at the age of 55yrs. Brother(s) Family Medical History: Cancer, COPD Additional Family Medical History / Comment(s): Leukemia General Exam - General Exam Comments Initial Comments: GENERAL: Patient is well-developed and well-nourished. Patient is nontoxic and well- hydrated and is in mild distress. ENT: Neck is soft and supple. No significant lymphadenopathy is noted. Oropharynx is clear. Moist mucous membranes. Neck has full range of motion without eliciting any pain. EYES: The sclera were anicteric and conjunctiva were pink and moist. Extraocular movements were intact and pupils were equal round and reactive to light. Eyelids were unremarkable. PULMONARY: Unlabored respirations. Good breath sounds bilaterally. No audible rales rhonchi or wheezing was noted. CARDIOVASCULAR: There is a regular rate and rhythm without any murmurs gallops or rubs. ABDOMEN: Soft and nontender with normal bowel sounds. SKIN: Skin is clear with no lesions or rashes and otherwise unremarkable. NEUROLOGIC: Patient is alert and oriented x3. Cranial nerves II through XII are grossly intact. Motor and sensory are also intact. Normal speech, volume and content. Symmetrical smile. MUSCULOSKELETAL: Normal extremities with adequate strength and full range of motion. No lower extremity swelling or edema. No calf tenderness. LYMPHATICS: No significant lymphadenopathy is noted PSYCHIATRIC: Normal psychiatric evaluation. 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 Patient's EKG shows no ST segment elevation or depression. Chest x-ray shows no acute abnormality. I spoke with Dr. garcía bed he agreed to admit the patient admitted the patient I wrote admitting orders. - Lab Data Result diagrams: 05/02/20 19:15 05/02/20 19:15 Lab Results 05/02/20 05/02/20 05/02/20 Range/Units 19:15 19:15 19:15 WBC 3.9 (3.8-10.6) k/uL RBC 3.92 L (4.30-5.90) m/uL Hgb 11.6 L (13.0-17.5) gm/dL Hct 35.3 L (39.0-53.0) % MCV 90.1 (80.0-100.0) fL MCH 29.6 (25.0-35.0) pg MCHC 32.9 (31.0-37.0) g/dL RDW 14.3 (11.5-15.5) % Plt Count 307 (150-450) k/uL Neutrophils % 60 % Lymphocytes % 29 % Monocytes % 7 % Eosinophils % 1 % Basophils % 0 % Neutrophils # 2.3 (1.3-7.7) k/uL Lymphocytes # 1.1 (1.0-4.8) k/uL Monocytes # 0.3 (0-1.0) k/uL Eosinophils # 0.1 (0-0.7) k/uL Basophils # 0.0 (0-0.2) k/uL PT (9.0-12.0) sec INR (<1.2) APTT (22.0-30.0) sec Sodium 136 L (137-145) mmol/L Potassium 4.2 (3.5-5.1) mmol/L Chloride 102 (98-107) mmol/L Carbon Dioxide 25 (22-30) mmol/L Anion Gap 9 mmol/L BUN 9 (9-20) mg/dL Creatinine 0.54 L (0.66-1.25) mg/dL Est GFR (CKD-EPI)AfAm >90 (>60 ml/min/1.73 sqM) Est GFR (CKD-EPI)NonAf >90 (>60 ml/min/1.73 sqM) Glucose 98 (74-99) mg/dL Calcium 9.1 (8.4-10.2) mg/dL Magnesium 2.0 (1.6-2.3) mg/dL Total Bilirubin 0.1 L (0.2-1.3) mg/dL AST 16 L (17-59) U/L ALT 7 (4-49) U/L Alkaline Phosphatase 77 (38-126) U/L Troponin I <0.012 (0.000-0.034) ng/mL Total Protein 7.0 (6.3-8.2) g/dL Albumin 4.1 (3.5-5.0) g/dL 05/02/20 Range/Units 20:11 WBC (3.8-10.6) k/uL RBC (4.30-5.90) m/uL Hgb (13.0-17.5) gm/dL Hct (39.0-53.0) % MCV (80.0-100.0) fL MCH (25.0-35.0) pg MCHC (31.0-37.0) g/dL RDW (11.5-15.5) % Plt Count (150-450) k/uL Neutrophils % % Lymphocytes % % Monocytes % % Eosinophils % % Basophils % % Neutrophils # (1.3-7.7) k/uL Lymphocytes # (1.0-4.8) k/uL Monocytes # (0-1.0) k/uL Eosinophils # (0-0.7) k/uL Basophils # (0-0.2) k/uL PT 9.9 (9.0-12.0) sec INR 0.9 (<1.2) APTT 22.6 (22.0-30.0) sec Sodium (137-145) mmol/L Potassium (3.5-5.1) mmol/L Chloride (98-107) mmol/L Carbon Dioxide (22-30) mmol/L Anion Gap mmol/L BUN (9-20) mg/dL Creatinine (0.66-1.25) mg/dL Est GFR (CKD-EPI)AfAm (>60 ml/min/1.73 sqM) Est GFR (CKD-EPI)NonAf (>60 ml/min/1.73 sqM) Glucose (74-99) mg/dL Calcium (8.4-10.2) mg/dL Magnesium (1.6-2.3) mg/dL Total Bilirubin (0.2-1.3) mg/dL AST (17-59) U/L ALT (4-49) U/L Alkaline Phosphatase (38-126) U/L Troponin I (0.000-0.034) ng/mL Total Protein (6.3-8.2) g/dL Albumin (3.5-5.0) g/dL Disposition Clinical Impression: Chest pain Disposition: ADMITTED IP TO THIS HOSP Referrals: None,Stated [Primary Care Provider] - 1-2 days Time of Disposition: 22:05
[2020-05-02 19:36] LABS: Basophils % (A) 0 %; Eosinophils # (A) 0.1 k/uL (0-0.7); Eosinophils % (A) 1 %; HCT 35.3 % (39.0-53.0); HGB 11.6 gm/dL (13.0-17.5); Lymphocytes # (A) 1.1 k/uL (1.0-4.8); Lymphocytes % (A) 29 %; MCH 29.6 pg (25.0-35.0); MCHC 32.9 g/dL (31.0-37.0); MCV 90.1 fL (80.0-100.0); Mean Platelet Volume 6.4; Monocytes # (A) 0.3 k/uL (0-1.0); Monocytes % (A) 7 %; Neutrophils # (A) 2.3 k/uL (1.3-7.7); Neutrophils % (A) 60 %; Platelet Count 307 k/uL (150-450); RBC 3.92 m/uL (4.30-5.90); RDW 14.3 % (11.5-15.5); WBC 3.9 k/uL (3.8-10.6)
--- NOTE | 2020-05-02 19:44 | XR ---
EXAMINATION TYPE: XR chest 2V DATE OF EXAM: 05/02/2020 COMPARISON: 03/11/2020 HISTORY: Chest pain TECHNIQUE: FINDINGS: Heart and mediastinum are normal. Lungs are clear. Diaphragm is normal. Bony thorax appears normal. There is cervical spine fusion surgery. IMPRESSION: No active cardiopulmonary disease. No change.
[2020-05-02 19:50] LABS: ALT 7 U/L (4-49); AST 16 U/L (17-59); African American GFR (CKD) >90 (>60 ml/min/1.73 sqM); Albumin 4.1 g/dL (3.5-5.0); Alkaline Phosphatase 77 U/L (38-126); Anion Gap 9 mmol/L; Blood Urea Nitrogen 9 mg/dL (9-20); Calcium 9.1 mg/dL (8.4-10.2); Carbon Dioxide 25 mmol/L (22-30); Chloride 102 mmol/L (98-107); Glucose 98 mg/dL (74-99); Non-African American GFR(CKD) >90 (>60 ml/min/1.73 sqM); Potassium 4.2 mmol/L (3.5-5.1); Sodium 136 mmol/L (137-145); Total Bilirubin 0.1 mg/dL (0.2-1.3)
[2020-05-02] MEDS ORDERED: ONDANSETRON 4 MG/2 ML VIAL IVP STA (20:18)
[2020-05-02 20:29] LABS: INR 0.9 (<1.2); Partial Thromboplastin Time 22.6 sec (22.0-30.0); Prothrombin Time 9.9 sec (9.0-12.0)
[2020-05-02] MEDS ORDERED: NITROGLYCERIN SL TABS 0.4 MG TAB SUBLINGUAL PRN (22:05)
[2020-05-03] MEDS ORDERED: MORPHINE SULFATE 2 MG/ML SYRINGE ONE ×2 (00:15→00:30)
[2020-05-03] MEDS ORDERED: ONDANSETRON 4 MG/2 ML VIAL ONE (00:16)
[2020-05-03] MEDS: NITROGLYCERIN OINT 1 INCH/GM PACKET TOPICAL SCH ×4 (04:38→11:44)
[2020-05-03] MEDS ORDERED: ATORVASTATIN 80 MG TAB PO STA (05:00)
[2020-05-03] MEDS ORDERED: CLOPIDOGREL 75 MG TAB PO STA (05:00)
--- NOTE | 2020-05-03 05:02 | P.HPIM ---
History of Present Illness H&P Date: 05/02/20 The patient is a 63-year-old male with a PMH of CAD status post CABG and multiple stents, COPD, hypertension, hyperlipidemia, and history of DVT who presented to the ED with complaints of chest pain. The patient notes that he was in his usual state of health until yesterday midday when he when he suddenly developed a left-sided sharp/pressure like chest discomfort with radiation to the left arm. The pain was intermittent and was 8 out of 10 at intensity during the interview, nonpleuritic, with associated nausea, diaphoresis, and dizziness. He also reports gradually worsening exercise tolerance and that he gets short of breath even with walking in his house. He denied abdominal pain, diarrhea, fever, chills, or cough. The patient underwent an extensive evaluation in the emergency room with a chest x-ray that was unremarkable and EKG showing sinus rhythm at 89 bpm with no acute ST/T-wave changes noted as reviewed by me. Laboratory evaluation revealed a troponin less than 0.012, obese, 3.9, hemoglobin 11.6, platelets 307, sodium 136, potassium 4.2, BUN 9, and creatinine 0.54. Review of Systems Pertinent positives and negatives as discussed in HPI, a complete review of systems was performed and all other systems are negative. Past Medical History Past Medical History: Coronary Artery Disease (CAD), Chest Pain / Angina, COPD, Deep Vein Thrombosis (DVT), GERD/Reflux, Hyperlipidemia, Hypertension, Osteoarthritis (OA), Thyroid Disorder Additional Past Medical History / Comment(s): Occasional palpitations, gastritis, small hiatal hernia, diverticular dx, pt states years ago he had PUD, chronic low back pain, chronic pain syndrome, migraines, DVT L arm, numbne ss/tingling bilateral lower legs, bilateral past R hand fracture, arthritis multiple joints, hyperthyroid, sinus problems. History of Any Multi-Drug Resistant Organisms: None Reported Past Surgical History: Back Surgery, Cholecystectomy, Heart Catheterization With Stent, Orthopedic Surgery Additional Past Surgical History / Comment(s): EGDs/colonoscopies, multiple low back surgeries, bilateral arm and bilateral thigh surgeries for brown recluse spider bites with infection, morphine pain pump insertion and removal due to infection, PCI with stents, L rotator cuff repair, L knee arthroscopy, cervical fusion/cage, R cataract removal. Past Anesthesia/Blood Transfusion Reactions: No Reported Reaction Additional Past Anesthesia/Blood Transfusion Reaction / Comment(s): Pt states after cervical fusion he "" in the recovery room but does not know cause- he was"gone for 8 minutes" and states he was resusitated. Pt received blood after back surgery and tolerated it well. Date of Last Stent Placement:: 10/12/17 Past Psychological History: No Psychological Hx Reported Smoking Status: Former smoker Past Alcohol Use History: None Reported Past Drug Use History: None Reported - Past Family History Father Family Medical History: No Reported History Additional Family Medical History / Comment(s): Father had back problems. He lived to be 82 yrs old. Mother History Unknown: Yes Family Medical History: Hypertension, Myocardial Infarction ([place]) Additional Family Medical History / Comment(s): Mother of a [place] at the age of 55yrs. Brother(s) Family Medical History: Cancer, COPD Additional Family Medical History / Comment(s): Leukemia Medications and Allergies Home Medications Medication Instructions Recorded Confirmed Type Fluticasone Nasal [place] [Flonase 1 spray EA NOSTRIL BID 04/20/17 05/02/20 History Nasal [place]] Morphine Sulfate ER [Ms Contin] 30 mg PO Q8H 10/10/17 05/02/20 History Atorvastatin [Lipitor] 80 mg PO HS #30 tab 10/12/17 05/02/20 Rx tiZANidine [Zanaflex] 4 mg PO TID PRN 02/26/18 05/02/20 History cloNIDine HCL [Catapres] 0.1 mg PO BID #60 tab 02/08/19 05/02/20 Rx Ezetimibe [Zetia] 10 mg PO DAILY #30 tab 05/24/19 05/02/20 Rx amLODIPine [Norvasc] 5 mg PO BID #60 tab 05/24/19 05/02/20 Rx Nitroglycerin Sl Tabs [Nitrostat] 0.4 mg SUBLINGUAL Q5M PRN #20 tab 07/02/19 05/02/20 Rx Lisinopril 40 mg PO DAILY #14 tab 07/30/19 05/02/20 Rx Aspirin EC [Ecotrin Low Dose] 81 mg PO DAILY 01/02/20 05/02/20 History Carvedilol [Coreg*] 12.5 mg PO AC-BID 01/02/20 05/02/20 History Gabapentin [Neurontin] 300 mg PO TID 01/02/20 05/02/20 History oxyCODONE-APAP 10-325MG [Percocet 1 tab PO Q8H PRN 01/02/20 05/02/20 History 10-325 mg] Furosemide [Lasix] 40 mg PO BID #8 tablet 03/30/20 05/02/20 Rx Dicyclomine [Bentyl] 10 mg PO QID 05/02/20 05/02/20 History Pantoprazole Sodium [Protonix] 40 mg PO DAILY 05/02/20 05/02/20 History Allergies Allergy/AdvReac Type Severity Reaction Status Date / Time ibuprofen [From Motrin] Allergy Rash/Hives Verified 05/02/20 17:48 ketorolac tromethamine Allergy Rash/Hives Verified 05/02/20 17:48 [From Toradol] Physical Exam Vitals: Vital Signs Temp Pulse Pulse Resp BP Pulse Ox 05/02/20 21:35 97.9 F 75 16 153/98 97 05/02/20 19:46 78 05/02/20 17:28 82 05/02/20 17:27 98.2 F 96 18 138/77 99 Intake and Output 05/02/20 05/02/20 05/02/20 06:59 14:59 22:59 Other: Weight 79.379 kg General: non toxic, no distress, appears at stated age, normal weight Derm: no unusual rashes/lesions no unusual ecchymoses, warm, dry Head: atraumatic, normocephalic, symmetric Eyes: EOMI, no lid lag, anicteric sclera, pupils equal round reactive to light ENT: Nose and ears atraumatic, no thrush, no pharyngeal erythema Neck: No thyromegaly, no cervical lymphadenopathy, trachea midline, supple Mouth: no lip lesion, mucus membranes moist Cardiovascular: S1S2 reg, no murmur, positive posterior tibial pulse bilateral, trace ankle edema, capillary refill less than 2 seconds Lungs: CTA bilateral, no rhonchi, no rales , no accessory muscle use Abdominal: soft, nontender to palpation, no guarding, no appreciable org anomegaly, normal bowel sounds Ext: no gross muscle atrophy, muscle strength 5 out of 5 in all 4 extremities grossly, no contractures, Neuro: CN II-XI grossly intact, light touch intact all 4 extremities, finger to nose within normal limits, Psych: Alert, oriented, appropriate affect Results CBC & Chem 7: 05/02/20 19:15 05/02/20 19:15 Labs: Abnormal Lab Results - Last 24 Hours (Table) 05/02/20 05/02/20 Range/Units 19:15 19:15 RBC 3.92 L (4.30-5.90) m/uL Hgb 11.6 L (13.0-17.5) gm/dL Hct 35.3 L (39.0-53.0) % Sodium 136 L (137-145) mmol/L Creatinine 0.54 L (0.66-1.25) mg/dL Total Bilirubin 0.1 L (0.2-1.3) mg/dL AST 16 L (17-59) U/L Assessment and Plan Plan: Chest pain, rule out ACS -Continue with Aspirin, Lipitor, Plavix -Cardiology consult -Cardiac monitoring -Trend troponin Chronic conditions: HLD, hypertension -Continue with home meds DVT prophylaxis -Heparin subq The patient is admitted with an anticipated less than 2 midnight stay for evaluation of chest pain. CODE STATUS:Full Code Discussed with: Patient Anticipated discharge date: 1-[address]: Home A total of 35 minutes was spent on the care of this complex patient more than 50% of the time was spent in counseling and care coordination.
[2020-05-03 06:56] LABS: Cholesterol 198 mg/dL (<200); HDL Cholesterol 61 mg/dL (40-60); LDL Cholesterol,Calculated 120 mg/dL (0-99); Triglycerides 86 mg/dL (<150)
[2020-05-03] MEDS ORDERED: DOBUTamine DRIP for NUC MED 500 MG in DEXTROSE/WATER 1 250ML.BAG IV ONE (07:51)
[2020-05-03 07:54] VITALS: BP 136/87; PULSE 80; RESP 16; TEMP 98
[2020-05-03] MEDS ORDERED: HEPARIN SODIUM,PORCINE 5,000 UNIT/ML 1 ML VIAL SQ SCH (08:00)
[2020-05-03] MEDS ORDERED: ASPIRIN 325 MG TAB PO SCH (09:00)
[2020-05-03] MEDS ORDERED: CLOPIDOGREL 75 MG TAB PO SCH (09:00)
[2020-05-03] MEDS ORDERED: oxyCODONE-APAP 10-325MG 1 EACH TAB PO PRN (12:37)
--- NOTE | 2020-05-03 12:52 | P.CRDCN ---
History of Present Illness History of present illness: HISTORY OF PRESENTING ILLNESS This is a pleasant 64-year-old -[place] male past medical history significant for coronary artery disease status post PCI, gastritis, hypertension and dyslipidemia. He follows in the office with Dr. Go. We have been asked to see in consultation for chest pain. He has undergone PCI of the LAD and diagonal branch, most recent catheterization in April 2019 revealed no evidence of significant progression of disease. He presented to the emergency department with symptoms of left precordial chest pain that has been constant and ongoing. He has associated nausea, diaphoresis, shortness of breath and feeling lightheaded. He has no vomiting or palpitations. He is seen and examined resting comfortably in no acute distress. DIAGNOSTICS EKG reveals sinus mechanism. Chest xray negative for an acute cardiopulmonary process. Laboratory reviewed, WBC 3.9, hemoglobin 11.6, platelets 307, sodium 136, potassium 4.2, creatinine 0.52, cardiac enzymes negative 3, LDL 120, HDL 61. Current cardiac medications include Plavix 75 mg daily, aspirin 81 mg daily, atorvastatin 80 mg daily, carvedilol 12.5 mg twice a day, that he attend milligrams daily, Lasix 40 mg twice a day, lisinopril 40 mg daily, amlodipine 5 mg twice a day and clonidine 0.1 mg twice a day. Most recent echocardiogram June 2019 reveals preserved LV systolic function with ejection fraction 60-65%. REVIEW OF SYSTEMS At the time of my exam: CONSTITUTIONAL: Denies fever or chills. CARDIOVASCULAR: Denies chest pain, shortness of breath, orthopnea, PND or palpitations. RESPIRATORY: Denies cough. GASTROINTESTINAL: Denies abdominal pain, diarrhea, constipation, nausea or vomiting. MUSCULOSKELETAL: Denies myalgias. NEUROLOGIC: Denies numbness, tingling or weakness. ENDOCRINE: Denies fatigue, weight change, polydipsia or polyurina. GENITOURINARY: Denies burning, hematuria or urgency with micturation. HEMATOLOGIC: Denies history of anemia or bleeding. PHYSICAL EXAMINATION Blood pressure 136/87 heart rate 80 afebrile and maintaining oxygen saturation on room air. CONSTITUTIONAL: No apparent distress. HEENT: Head is normocephalic. Pupils are equal, round. Sclerae anicteric. Mucous membranes of the mouth are moist. No JVD. No carotid bruit. CHEST EXAMINATION: Lungs are clear to auscultation. No chest wall tenderness is noted on palpation or with deep breathing. HEART EXAMINATION: Regular rate and rhythm. S1, S2 heard. No murmurs, gallops or rub. ABDOMEN: Soft, nontender. Positive bowel sounds. EXTREMITIES: 2+ peripheral pulses, no lower extremity edema and no calf tenderness. NEUROLOGIC EXAMINATION: Patient is awake, alert and oriented x3. ASSESSMENT Chest pain, constant and ongoing. Atypical for angina. An acute coronary event has been ruled out. Coronary artery disease status post PCI of the LAD and diagonal branch in 2017 Hypertension Dyslipidemia Chronic pain Noncompliance PLAN An acute coronary event has been ruled out. Perform dobutamine stress echocardiogram to assess for stress-induced ischemia. Discontinue Plavix as his most recent stent was over 12 months ago. If stress test is normal he is stable for discharge from a cardiac perspective. Follow-up with Dr. Go in the office. Thank you kindly for this consultation. Nurse Practitioner note has been reviewed, I agree with a documented findings and plan of care. Patient was seen and examined. Past Medical History Past Medical History: Coronary Artery Disease (CAD), Chest Pain / Angina, COPD, Deep Vein Thrombosis (DVT), GERD/Reflux, Hyperlipidemia, Hypertension, Osteoarthritis (OA), Thyroid Disorder Additional Past Medical History / Comment(s): Occasional palpitations, gastritis, small hiatal hernia, diverticular dx, pt states years ago he had PUD, chronic low back pain, chronic pain syndrome, migraines, DVT L arm, numbness/tingling bilateral lower legs, bilateral past R hand fracture, arthritis multiple joints, hyperthyroid, sinus problems. History of Any Multi-Drug Resistant Organisms: None Reported Past Surgical History: Back Surgery, Cholecystectomy, Heart Catheterization With Stent, Orthopedic Surgery Additional Past Surgical History / Comment(s): EGDs/colonoscopies, multiple low back surgeries, bilateral arm and bilateral thigh surgeries for brown recluse spider bites with infection, morphine pain pump insertion and removal due to infection, PCI with stents, L rotator cuff repair, L knee arthroscopy, cervical fusion/cage, R cataract removal. Past Anesthesia/Blood Transfusion Reactions: No Reported Reaction Additional Past Anesthesia/Blood Transfusion Reaction / Comment(s): Pt states after cervical fusion he "" in the recovery room but does not know cause- he was"gone for 8 minutes" and states he was resusitated. Pt received blood after back surgery and tolerated it well. Date of Last Stent Placement:: 10/12/17 Past Psychological History: No Psychological Hx Reported Smoking Status: Former smoker Past Alcohol Use History: None Reported Past Drug Use History: None Reported - Past Family History Father Family Medical History: No Reported History Additional Family Medical History / Comment(s): Father had back problems. He lived to be 82 yrs old. Mother History Unknown: Yes Family Medical History: Hypertension, Myocardial Infarction (PR) Additional Family Medical History / Comment(s): Mother of a PR at the age of 55yrs. Brother(s) Family Medical History: Cancer, COPD Additional Family Medical History / Comment(s): Leukemia Medications and Allergies Home Medications Medication Instructions Recorded Confirmed Type Fluticasone Nasal [place] [Flonase 1 spray EA NOSTRIL BID 04/20/17 05/02/20 History Nasal [place]] Morphine Sulfate ER [Ms Contin] 30 mg PO Q8H 10/10/17 05/02/20 History Atorvastatin [Lipitor] 80 mg PO HS #30 tab 10/12/17 05/02/20 Rx tiZANidine [Zanaflex] 4 mg PO TID PRN 02/26/18 05/02/20 History cloNIDine HCL [Catapres] 0.1 mg PO BID #60 tab 02/08/19 05/02/20 Rx Ezetimibe [Zetia] 10 mg PO DAILY #30 tab 05/24/19 05/02/20 Rx amLODIPine [Norvasc] 5 mg PO BID #60 tab 05/24/19 05/02/20 Rx Nitroglycerin Sl Tabs [Nitrostat] 0.4 mg SUBLINGUAL Q5M PRN #20 tab 07/02/19 05/02/20 Rx Lisinopril 40 mg PO DAILY #14 tab 07/30/19 05/02/20 Rx Aspirin EC [Ecotrin Low Dose] 81 mg PO DAILY 01/02/20 05/02/20 History Carvedilol [Coreg*] 12.5 mg PO AC-BID 01/02/20 05/02/20 History Gabapentin [Neurontin] 300 mg PO TID 01/02/20 05/02/20 History oxyCODONE-APAP 10-325MG [Percocet 1 tab PO Q8H PRN 01/02/20 05/02/20 History 10-325 mg] Furosemide [Lasix] 40 mg PO BID #8 tablet 03/30/20 05/02/20 Rx Dicyclomine [Bentyl] 10 mg PO QID 05/02/20 05/02/20 History Pantoprazole Sodium [Protonix] 40 mg PO DAILY 05/02/20 05/02/20 History Clopidogrel [Plavix] 75 mg PO DAILY #30 tab 05/03/20 Rx Allergies Allergy/AdvReac Type Severity Reaction Status Date / Time ibuprofen [From Motrin] Allergy Rash/Hives Verified 05/02/20 17:48 ketorolac tromethamine Allergy Rash/Hives Verified 05/02/20 17:48 [From Toradol] Physical Exam Vitals: Vital Signs Temp Pulse Pulse Resp BP BP Pulse Ox 05/03/20 07:52 98.0 F 80 16 136/87 98 05/03/20 04:00 97.5 F L 88 17 115/78 98 05/03/20 00:00 97.2 F L 70 17 150/102 97 05/02/20 21:35 97.9 F 75 16 153/98 97 05/02/20 19:46 78 05/02/20 17:28 82 05/02/20 17:27 98.2 F 96 18 138/77 99 Intake and Output 05/02/20 05/03/20 05/03/20 22:59 06:59 14:59 Intake Total 0 Balance 0 Intake: Oral 0 Other: Voiding Method Toilet Toilet # Voids 1 Weight 79.379 kg 80 kg 80 kg Results 05/02/20 19:15 05/02/20 19:15 Cardiac Enzymes 05/02/20 05/02/20 05/02/20 Range/Units 19:15 19:15 22:34 AST 16 L (17-59) U/L Troponin I <0.012 <0.012 (0.000-0.034) ng/mL 05/03/20 Range/Units 05:30 AST (17-59) U/L Troponin I <0.012 (0.000-0.034) ng/mL Coagulation 05/02/20 Range/Units 20:11 PT 9.9 (9.0-12.0) sec APTT 22.6 (22.0-30.0) sec Lipids 05/03/20 Range/Units 05:30 Triglycerides 86 (<150) mg/dL Cholesterol 198 (<200) mg/dL HDL Cholesterol 61 H (40-60) mg/dL CBC 05/02/20 Range/Units 19:15 WBC 3.9 (3.8-10.6) k/uL RBC 3.92 L (4.30-5.90) m/uL Hgb 11.6 L (13.0-17.5) gm/dL Hct 35.3 L (39.0-53.0) % Plt Count 307 (150-450) k/uL Comprehensive Metabolic Panel 05/02/20 Range/Units 19:15 Sodium 136 L (137-145) mmol/L Potassium 4.2 (3.5-5.1) mmol/L Chloride 102 (98-107) mmol/L Carbon Dioxide 25 (22-30) mmol/L BUN 9 (9-20) mg/dL Creatinine 0.54 L (0.66-1.25) mg/dL Glucose 98 (74-99) mg/dL Calcium 9.1 (8.4-10.2) mg/dL AST 16 L (17-59) U/L ALT 7 (4-49) U/L Alkaline Phosphatase 77 (38-126) U/L Total Protein 7.0 (6.3-8.2) g/dL Albumin 4.1 (3.5-5.0) g/dL Current Medications Generic Name Dose Route Start Last Admin Trade Name Freq PRN Reason Stop Dose Admin Aspirin 325 mg 05/03/20 09:00 05/03/20 08:40 Aspirin PO 325 mg DAILY [facility] Administration Atorvastatin Calcium 80 mg 05/03/20 21:00 Lipitor PO HS [facility] Clopidogrel Bisulfate 75 mg 05/03/20 09:00 05/03/20 08:40 Plavix PO 75 mg DAILY [facility] Administration Heparin Sodium (Porcine) 5,000 unit 05/03/20 08:00 05/03/20 08:40 Heparin SQ 5,000 unit Q8HR [facility] Administration Dobutamine HCl/Dextrose 500 mg 250 mls @ 24 mls/hr 05/03/20 07:51 / IV Solution IV 05/03/20 18:15 .[id number] ONE Protocol 10 MCG/KG/MIN Nitroglycerin 0.4 mg 05/02/20 22:05 Nitrostat SUBLINGUAL Q5M PRN Chest Pain Nitroglycerin 1 inch 05/03/20 00:00 05/03/20 11:44 Nitro-Bid Oint TOPICAL Not Given Q6HR [facility]ICA Intake and Output 05/02/20 05/03/20 05/03/20 22:59 06:59 14:59 Intake Total 0 Balance 0 Intake: Oral 0 Other: Voiding Method Toilet Toilet # Voids 1 Weight 79.379 kg 80 kg 80 kg Patient Weight 05/04/20 06:59 Weight 80 kg 05/02/20 19:15 05/02/20 19:15
--- NOTE | 2020-05-03 14:35 | ECHOS ---
STRESS ECHOCARDIOGRAM LUMASON: Vial INDICATIONS: Chest pain. MEDICATIONS: BASELINE HEART RATE: 75 BASELINE BLOOD PRESSURE: 120/79 MAXIMUM HEART RATE: 131 MAXIMUM BLOOD PRESSURE: 141/60 85% MPHR: 133 100% MPHR: 157 METS: MAXIMUM STAGE REACHED: 40 Mcg/Kg/min TOTAL EXERCISE TIME: INDICATION: Chest pain. Baseline EKG shows sinus rhythm, normal axis, normal intervals. Patient was given intravenous dobutamine as per protocol for 11 minutes, achieving 85% of predicted maximal heart rate without chest pain or diagnostic ST-segment depression. Baseline echo shows normal left ventricular size, wall motion and systolic function. Post dobutamine infusion, there is normal hyperdynamic response of all segments of myocardium noted. CONCLUSION: 1. Negative stress test by EKG criteria. 2. Negative dobutamine echo. MMODL / IJN: [id number] /
--- NOTE | 2020-05-03 15:17 | P.DS ---
Providers Date of admission: 05/02/20 22:06 Expected date of discharge: 05/03/20 Attending physician: Willi Chase MD Consults: 05/02/20 22:06 Consult Physician Urgent Consulting Provider: [facility] Consult Reason/Comments: Chest pain Do you want consulting provider notified?: Yes Primary care physician: Stated None Hospital Course: The patient is a 63-year-old male with a PMH of CAD status post CABG and multiple stents, COPD, hypertension, hyperlipidemia, and history of DVT who presented to the ED with complaints of chest pain. The patient notes that he was in his usual state of health until yesterday midday when he when he suddenly developed a left-sided sharp/pressure like chest discomfort with radiation to the left arm. The pain was intermittent and was 8 out of 10 at intensity during the interview, nonpleuritic, with associated nausea, diaphoresis, and dizziness. He also reports gradually worsening exercise tolerance and that he gets short of breath even with walking in his house. He denied abdominal pain, diarrhea, fever, chills, or cough. The patient underwent an extensive evaluation in the emergency room with a chest x-ray that was unremarkable and EKG showing sinus rhythm at 89 bpm with no acute ST/T-wave changes noted. Laboratory evaluation revealed a troponin less than 0.012, obese, 3.9, hemoglobin 11.6, platelets 307, sodium 136, potassium 4.2, BUN 9, and creatinine 0.54. Troponin was less than 0.0123. ACS was ruled out. Lipid panel showed LDL of 120. Cardiology was consulted and recommended stress test. Stress test was negative. Patient was cleared from cardiology standpoint. Patient was seen and examined. No acute events overnight. Patient reports continued chest pain and is requesting Dilaudid for pain control. We will avoid Dilaudid at this time as he is scheduled for stress test. General: [non toxic], [no distress], [appears at stated age] Derm: [warm], [dry] Head: [atraumatic], [normocephalic], [symmetric] Eyes: [EOMI], [no lid lag], [anicteric sclera] Mouth: [no lip lesion], [mucus membranes moist] Cardiovascular: [S1S2 reg], [no murmur], [positive posterior tibial pulse bilateral], Lungs: [CTA bilateral], [no rhonchi, no rales] , [no accessory muscle use] Abdominal: [soft], [ nontender to palpation], [no guarding], [no appreciable organomegaly] Ext: [no gross muscle atrophy], [no edema], [no contractures] Neuro: [no focal neuro deficits] Psych: [Alert], [oriented], [appropriate affect] Chest pain -Continue with Aspirin, Lipitor -Cardiology consult, recommend stress test which is negative -Cardiac monitoring -Troponins less than 0.0123 with EKG showing sinus rhythm, ACS ruled out Chronic conditions: HLD, hypertension -Continue with home meds DVT prophylaxis -Heparin subq [Cardiology cleared the patient for discharge. Plans on DC home today to continue home medications.] Pertinent Studies: Chest x-ray, EKG, stress test Patient Condition at Discharge: Stable Plan - Discharge Summary New Discharge Prescriptions: Continue Fluticasone Nasal [place] [Flonase Nasal [place]] 1 spray EA NOSTRIL BID Morphine Sulfate ER [Ms Contin] 30 mg PO Q8H Atorvastatin [Lipitor] 80 mg PO HS #30 tab tiZANidine [Zanaflex] 4 mg PO TID PRN PRN Reason: Muscle Spasm cloNIDine HCL [Catapres] 0.1 mg PO BID #60 tab amLODIPine [Norvasc] 5 mg PO BID #60 tab Ezetimibe [Zetia] 10 mg PO DAILY #30 tab Nitroglycerin Sl Tabs [Nitrostat] 0.4 mg SUBLINGUAL Q5M PRN #20 tab PRN Reason: Chest Pain Lisinopril 40 mg PO DAILY #14 tab Gabapentin [Neurontin] 300 mg PO TID oxyCODONE-APAP 10-325MG [Percocet 10-325 mg] 1 tab PO Q8H PRN PRN Reason: Pain Aspirin EC [Ecotrin Low Dose] 81 mg PO DAILY Carvedilol [Coreg*] 12.5 mg PO AC-BID Furosemide [Lasix] 40 mg PO BID #8 tablet Dicyclomine [Bentyl] 10 mg PO QID Pantoprazole Sodium [Protonix] 40 mg PO DAILY Discharge Medication List Fluticasone Nasal [place] [Flonase Nasal [place]] 1 spray EA NOSTRIL BID 04/20/17 [History] Morphine Sulfate ER [Ms Contin] 30 mg PO Q8H 10/10/17 [History] Atorvastatin [Lipitor] 80 mg PO HS #30 tab 10/12/17 [Rx] tiZANidine [Zanaflex] 4 mg PO TID PRN 02/26/18 [History] cloNIDine HCL [Catapres] 0.1 mg PO BID #60 tab 02/08/19 [Rx] Ezetimibe [Zetia] 10 mg PO DAILY #30 tab 05/24/19 [Rx] amLODIPine [Norvasc] 5 mg PO BID #60 tab 05/24/19 [Rx] Nitroglycerin Sl Tabs [Nitrostat] 0.4 mg SUBLINGUAL Q5M PRN #20 tab 07/02/19 [Rx] Lisinopril 40 mg PO DAILY #14 tab 07/30/19 [Rx] Aspirin EC [Ecotrin Low Dose] 81 mg PO DAILY 01/02/20 [History] Carvedilol [Coreg*] 12.5 mg PO AC-BID 01/02/20 [History] Gabapentin [Neurontin] 300 mg PO TID 01/02/20 [History] oxyCODONE-APAP 10-325MG [Percocet 10-325 mg] 1 tab PO Q8H PRN 01/02/20 [History] Furosemide [Lasix] 40 mg PO BID #8 tablet 03/30/20 [Rx] Dicyclomine [Bentyl] 10 mg PO QID 05/02/20 [History] Pantoprazole Sodium [Protonix] 40 mg PO DAILY 05/02/20 [History] Follow up Appointment(s)/Referral(s): Fannie Go MD [STAFF PHYSICIAN] - 05/23/20 4:00 pm None,Stated [Primary Care Provider] - 1-2 days Patient Instructions/Handouts: Chest Pain (DC) Activity/Diet/Wound Care/Special Instructions: Follow-up with PCP within 2 days of discharge. Follow-up with cardiology within 1 week of discharge. Discharge Disposition: HOME SELF-CARE
[2020-05-03] MEDS ORDERED: MORPHINE SULFATE ER 30 MG TABLET PO SCH (16:00)
[2020-05-03] MEDS ORDERED: ATORVASTATIN 80 MG TAB PO SCH (21:00)
--- NOTE | 2020-05-04 07:53 | ECHOF ---
Referral Reason:chest pain MEASUREMENTS -------- HEIGHT: 175.3 cm WEIGHT: 81.2 kg BP: 136/87 RVIDd: 4.3 cm (< 3.3) IVSd: 1.7 cm (0.6 - 1.1) LVIDd: 3.4 cm (3.9 - 5.3) LVPWd: 1.4 cm (0.6 - 1.1) IVSs: 2.1 cm LVIDs: 2.2 cm LVPWs: 2.2 cm LAESV Index (A-L): 24.46 ml/m Ao Diam: 3.7 cm (2.0 - 3.7) AV Cusp: 2.5 cm (1.5 - 2.6) MV EXCURSION: 18.450 mm (> 18.000) MV EF SLOPE: 151 mm/s (70 - 150) EPSS: 0.1 cm MV E Héctor: 0.56 m/s MV DecT: 127 ms MV A Héctor: 0.76 m/s MV E/A Ratio: 0.74 RAP: 5.00 mmHg RVSP: 36.30 mmHg FINDINGS -------- Sinus rhythm. This was a technically adequate study. The left ventricular size is normal. There is moderate concentric left ventricular hypertrophy. O verall left ventricular systolic function is normal with, an EF between 55 - 60 %. The diastolic fi lling pattern is normal for the age of the patient 12.24. The right ventricle is moderately enlarged. Normal LA size by volume 22+/-6 ml/m2. The right atrial size is normal. Interatrial and interventricular septum intact. There is no evidence of aortic regurgitation. There is no evidence of aortic stenosis. The mitral valve leaflets are mildly thickened. There is trace mitral regurgitation. Mild tricuspid regurgitation present. There is mild pulmonary hypertension. The right ventricular systolic pressure, as measured by Doppler, is 36.30mmHg. There is no pulmonic regurgitation present. The aortic root size is normal. Normal inferior vena cava with normal inspiratory collapse consistent with estimated right atrial pre ssure of 5 mmHg. There is no pericardial effusion. CONCLUSIONS -------- 1. Sinus rhythm. 2. This was a technically adequate study. 3. The left ventricular size is normal. 4. There is moderate concentric left ventricular hypertrophy. 5. Overall left ventricular systolic function is normal with, an EF between 55 - 60 %. 6. The diastolic filling pattern is normal for the age of the patient 12.24 7. The right ventricle is moderately enlarged. 8. Normal LA size by volume 22+/-6 ml/m2. 9. The right atrial size is normal. 10. Interatrial and interventricular septum intact. 11. There is no evidence of aortic regurgitation. 12. There is no evidence of aortic stenosis. 13. The mitral valve leaflets are mildly thickened. 14. There is trace mitral regurgitation. 15. Mild tricuspid regurgitation present. 16. There is mild pulmonary hypertension. 17. The right ventricular systolic pressure, as measured by Doppler, is 36.30mmHg. 18. There is no pulmonic regurgitation present. 19. The aortic root size is normal. 20. Normal inferior vena cava with normal inspiratory collapse consistent with estimated right atrial pressure of 5 mmHg. 21. There is no pericardial effusion. GEOGRAPHIC INFORMATION SCIENTIST: Clarissa Car RDCS
[2020-05-04] MEDS ORDERED: ASPIRIN 81 MG PO SCH (09:00)
== END 2020-05-03 15:43 | disposition home or self-care (01) ==
LOC: EC 17:15 → 1SOBS 22:06
PROVIDERS: ADMIT Internal Medicine; ATTEND Internal Medicine
DX: R07.89 Other chest pain (principal); R07.2 Precordial pain; R11.0 Nausea; R61 Generalized hyperhidrosis; R42 Dizziness and giddiness; M79.89 Other specified soft tissue disorders; R06.02 Shortness of breath; I25.10 Atherosclerotic heart disease of native coronary artery without angina pectoris; J44.9 Chronic obstructive pulmonary disease, unspecified; I10 Essential (primary) hypertension; E78.5 Hyperlipidemia, unspecified; E66.9 Obesity, unspecified; Z68.24 Body mass index [BMI] 24.0-24.9, adult; K21.9 Gastro-esophageal reflux disease without esophagitis; M19.90 Unspecified osteoarthritis, unspecified site; G89.4 Chronic pain syndrome; M54.5 Low back pain; R00.2 Palpitations; G43.909 Migraine, unspecified, not intractable, without status migrainosus; R20.0 Anesthesia of skin; R20.2 Paresthesia of skin; E05.90 Thyrotoxicosis, unspecified without thyrotoxic crisis or storm; Z98.1 Arthrodesis status; Z95.1 Presence of aortocoronary bypass graft; Z95.5 Presence of coronary angioplasty implant and graft; Z87.19 Personal history of other diseases of the digestive system; Z87.11 Personal history of peptic ulcer disease; Z90.49 Acquired absence of other specified parts of digestive tract; Z87.891 Personal history of nicotine dependence; Z79.899 Other long term (current) drug therapy; Z79.82 Long term (current) use of aspirin; Z79.891 Long term (current) use of opiate analgesic; Z79.02 Long term (current) use of antithrombotics/antiplatelets; Z88.8 Allergy status to other drugs, medicaments and biological substances; Z91.19 Patient's noncompliance with other medical treatment and regimen; Z86.718 Personal history of other venous thrombosis and embolism; Z82.49 Family history of ischemic heart disease and other diseases of the circulatory system; Z80.9 Family history of malignant neoplasm, unspecified; Z80.6 Family history of leukemia; Z82.5 Family history of asthma and other chronic lower respiratory diseases; Z84.89 Family history of other specified conditions; Z20.828 Contact with and (suspected) exposure to other viral communicable diseases
CPT/HCPCS: 96372; 96374; 99285; 36415; 93005 ×2; 93306; 93351; 80061; 80053; 83735; 84484 ×2; 85025; 85610; 85730; 71046; G0378 ×2; U0003; J1250; J1644; J2405; J2270

== ENCOUNTER 2020-05-16 18:43 | Emergency (ER) | payer MEDICARE ==
[2020-05-16] MEDS ORDERED: ONDANSETRON ODT 4 MG TAB PO STA (19:31)
[2020-05-16] MEDS ORDERED: HYDROmorphone 0.5 MG/0.5 ML SYRINGE IM STA (19:31)
--- NOTE | 2020-05-16 19:32 | ED ---
General Adult HPI - General Chief complaint: Headache Stated complaint: headache Time Seen by Provider: 05/16/20 19:04 Source: patient, RN notes reviewed Mode of arrival: ambulatory Limitations: no limitations - History of Present Illness Initial comments: 64-year-old male well-known to this emergency department for several different complaints presents for a chief complaint of headache. Patient has a history of migraines. States he gets them a couple times per month. Patient states this is consistent with his previous migraines. States it had a gradual onset. It was not sudden onset or worst headache of his life. Patient states he is stressed because his needs surgery.states his headache is all over. Patient states that he does not have any visual changes but does have light sensitivity and associated nausea which is normal for his headaches. Patient has no other complaints at this time including shortness of breath, chest pain, abdominal pain, nausea or vomiting, or visual changes. - Related Data Home Medications Medication Instructions Recorded Confirmed Fluticasone Nasal [place] [Flonase 1 spray EA NOSTRIL BID 04/20/17 05/02/20 Nasal [place]] Morphine Sulfate ER [Ms Contin] 30 mg PO Q8H 10/10/17 05/02/20 tiZANidine [Zanaflex] 4 mg PO TID PRN 02/26/18 05/02/20 Aspirin EC [Ecotrin Low Dose] 81 mg PO DAILY 01/02/20 05/02/20 Carvedilol [Coreg*] 12.5 mg PO AC-BID 01/02/20 05/02/20 Gabapentin [Neurontin] 300 mg PO TID 01/02/20 05/02/20 oxyCODONE-APAP 10-325MG [Percocet 1 tab PO Q8H PRN 01/02/20 05/02/20 10-325 mg] Dicyclomine [Bentyl] 10 mg PO QID 05/02/20 05/02/20 Pantoprazole Sodium [Protonix] 40 mg PO DAILY 05/02/20 05/02/20 Previous Rx's Medication Instructions Recorded Atorvastatin [Lipitor] 80 mg PO HS #30 tab 10/12/17 cloNIDine HCL [Catapres] 0.1 mg PO BID #60 tab 02/08/19 Ezetimibe [Zetia] 10 mg PO DAILY #30 tab 05/24/19 amLODIPine [Norvasc] 5 mg PO BID #60 tab 05/24/19 Nitroglycerin Sl Tabs [Nitrostat] 0.4 mg SUBLINGUAL Q5M PRN #20 tab 07/02/19 Lisinopril 40 mg PO DAILY #14 tab 07/30/19 Furosemide [Lasix] 40 mg PO BID #8 tablet 03/30/20 Allergies Allergy/AdvReac Type Severity Reaction Status Date / Time ibuprofen [From Motrin] Allergy Rash/Hives Verified 05/16/20 18:57 ketorolac tromethamine Allergy Rash/Hives Verified 05/16/20 18:57 [From Toradol] Review of Systems ROS Statement: Those systems with pertinent positive or pertinent negative responses have been documented in the HPI. ROS Other: All systems not noted in ROS Statement are negative. Past Medical History Past Medical History: Coronary Artery Disease (CAD), Chest Pain / Angina, COPD, Deep Vein Thrombosis (DVT), GERD/Reflux, Hyperlipidemia, Hypertension, Osteoarthritis (OA), Thyroid Disorder Additional Past Medical History / Comment(s): Occasional palpitations, gastritis, small hiatal hernia, diverticular dx, pt states years ago he had PUD, chronic low back pain, chronic pain syndrome, migraines, DVT L arm, numbness/tingling bilateral lower legs, bilateral past R hand fracture, arthritis multiple joints, hyperthyroid, sinus problems. History of Any Multi-Drug Resistant Organisms: None Reported Past Surgical History: Back Surgery, Cholecystectomy, Heart Catheterization With Stent, Orthopedic Surgery Additional Past Surgical History / Comment(s): EGDs/colonoscopies, multiple low back surgeries, bilateral arm and bilateral thigh surgeries for brown recluse sp ider bites with infection, morphine pain pump insertion and removal due to infection, PCI with stents, L rotator cuff repair, L knee arthroscopy, cervical fusion/cage, R cataract removal. Past Anesthesia/Blood Transfusion Reactions: No Reported Reaction Additional Past Anesthesia/Blood Transfusion Reaction / Comment(s): Pt states after cervical fusion he "" in the recovery room but does not know cause- he was"gone for 8 minutes" and states he was resusitated. Pt received blood after back surgery and tolerated it well. Date of Last Stent Placement:: 10/12/17 Past Psychological History: No Psychological Hx Reported Smoking Status: Former smoker Past Alcohol Use History: None Reported Past Drug Use History: None Reported - Past Family History Father Family Medical History: No Reported History Additional Family Medical History / Comment(s): Father had back problems. He lived to be 82 yrs old. Mother History Unknown: Yes Family Medical History: Hypertension, Myocardial Infarction ([place]) Additional Family Medical History / Comment(s): Mother of a [place] at the age of 55yrs. Brother(s) Family Medical History: Cancer, COPD Additional Family Medical History / Comment(s): Leukemia General Exam Limitations: no limitations General appearance: alert, in no apparent distress Head exam: Present: atraumatic, normocephalic, normal inspection Eye exam: Present: normal appearance, PERRL, EOMI. Absent: scleral icterus, conjunctival injection, periorbital swelling ENT exam: Present: normal exam, mucous membranes moist Neck exam: Present: normal inspection, full ROM. Absent: tenderness, meningismus, lymphadenopathy Respiratory exam: Present: normal lung sounds bilaterally. Absent: respiratory distress, wheezes, rales, rhonchi, stridor Cardiovascular Exam: Present: regular rate, normal rhythm, normal heart sounds. Absent: systolic murmur, diastolic murmur, rubs, gallop, clicks GI/Abdominal exam: Present: soft, normal bowel sounds. Absent: distended, tenderness, guarding, rebound, rigid Neurological exam: Present: alert, oriented X3, CN II-XII intact, normal gait, other (GCS 15) Psychiatric exam: Present: normal affect, normal mood Course Vital Signs 05/16/20 18:52 Temperature 97.7 F Pulse Rate 58 L Respiratory 18 Rate Blood Pressure 126/91 O2 Sat by Pulse 97 Oximetry Medical Decision Making - Medical Decision Making Patient sitting up in bed in no acute distress. HPI and physical exam as documented. Vitals are stable. There are no red flag symptoms and these symptoms are consistent with his normal headaches that he gets rather frequently up to a few times per month. I did recommend Toradol for this however patient states he is ALLERGIC. I then recommended Imitrex which he states makes him very sick. he was given IM pain medication however discussed that he will likely not be given the sick again and that he will need to follow up with his doctor for further management of his headaches. If he has any worsening symptoms he is to return to the emergency room which she agrees with. I did discuss signs of concerning headache with patient to return. Disposition Clinical Impression: Headache Disposition: HOME SELF-CARE Condition: Good Instructions (If sedation given, give patient instructions): Acute Headache (ED) Additional Instructions: Please follow-up with your primary care provider. Return for any worsening symptoms. Is patient prescribed a controlled substance at d/c from ED?: No Referrals: Julian Tiuts MD [REFERRING] - 1-2 days Time of Disposition: 19:32
[2020-05-16 20:30] VITALS: BP 112/85; PULSE 90; RESP 17; TEMP 98.6
== END 2020-05-16 20:27 | disposition home or self-care (01) ==
LOC: EC 18:43
DX: R51 Headache (principal); I25.119 Atherosclerotic heart disease of native coronary artery with unspecified angina pectoris; I10 Essential (primary) hypertension; G89.4 Chronic pain syndrome; K21.9 Gastro-esophageal reflux disease without esophagitis; J44.9 Chronic obstructive pulmonary disease, unspecified; Z79.82 Long term (current) use of aspirin; Z79.51 Long term (current) use of inhaled steroids; Z79.891 Long term (current) use of opiate analgesic; Z79.899 Other long term (current) drug therapy; Z87.891 Personal history of nicotine dependence; Z88.6 Allergy status to analgesic agent; Z86.69 Personal history of other diseases of the nervous system and sense organs; Z86.718 Personal history of other venous thrombosis and embolism; Z87.11 Personal history of peptic ulcer disease; Z95.5 Presence of coronary angioplasty implant and graft
CPT/HCPCS: 99283; 96372; J1170

== ENCOUNTER 2020-05-17 09:43 | Emergency (ER) | payer MEDICARE ==
[2020-05-17] MEDS ORDERED: SODIUM CHLORIDE 0.9% 1,000 ML IV STA (10:13)
[2020-05-17] MEDS ORDERED: ONDANSETRON 4 MG/2 ML VIAL IVP STA ×2 (10:14→12:33)
[2020-05-17] MEDS ORDERED: MORPHINE SULFATE 4 MG/ML SYRINGE IVP STA ×2 (10:31→12:21)
--- NOTE | 2020-05-17 10:35 | ED ---
General Adult HPI - General Chief complaint: Abdominal Pain Stated complaint: [place], Vomiting Time Seen by Provider: 05/17/20 10:02 Source: patient, EMS Mode of arrival: EMS - History of Present Illness Initial comments: Patient is a 64-year-old male, well-known to the ER, presenting to the emergency Department with complaints of nausea, vomiting, abdominal pain started last n ight. Patient was in the ER yesterday for a migraine. Patient states he was feeling better from his headache and then developed nausea and vomiting. He states his abdominal pain is all over and is cramping. He states it hurts because he has been vomiting so much. He has not been able to take his medications because he throws them up. He denies having a fever, chills, cough, chest pain, shortness of breath, diarrhea. He has no further complaints at this time. - Related Data Home Medications Medication Instructions Recorded Confirmed Fluticasone Nasal [place] [Flonase 1 spray EA NOSTRIL BID 04/20/17 05/02/20 Nasal [place]] Morphine Sulfate ER [Ms Contin] 30 mg PO Q8H 10/10/17 05/02/20 tiZANidine [Zanaflex] 4 mg PO TID PRN 02/26/18 05/02/20 Aspirin EC [Ecotrin Low Dose] 81 mg PO DAILY 01/02/20 05/02/20 Carvedilol [Coreg*] 12.5 mg PO AC-BID 01/02/20 05/02/20 Gabapentin [Neurontin] 300 mg PO TID 01/02/20 05/02/20 oxyCODONE-APAP 10-325MG [Percocet 1 tab PO Q8H PRN 01/02/20 05/02/20 10-325 mg] Dicyclomine [Bentyl] 10 mg PO QID 05/02/20 05/02/20 Pantoprazole Sodium [Protonix] 40 mg PO DAILY 05/02/20 05/02/20 Previous Rx's Medication Instructions Recorded Atorvastatin [Lipitor] 80 mg PO HS #30 tab 10/12/17 cloNIDine HCL [Catapres] 0.1 mg PO BID #60 tab 02/08/19 Ezetimibe [Zetia] 10 mg PO DAILY #30 tab 05/24/19 amLODIPine [Norvasc] 5 mg PO BID #60 tab 05/24/19 Nitroglycerin Sl Tabs [Nitrostat] 0.4 mg SUBLINGUAL Q5M PRN #20 tab 07/02/19 Lisinopril 40 mg PO DAILY #14 tab 07/30/19 Furosemide [Lasix] 40 mg PO BID #8 tablet 03/30/20 Ondansetron Odt [Zofran Odt] 4 mg PO Q8HR PRN #10 tab 05/17/20 Allergies Allergy/AdvReac Type Severity Reaction Status Date / Time ibuprofen [From Motrin] Allergy Rash/Hives Verified 05/17/20 09:52 ketorolac tromethamine Allergy Rash/Hives Verified 05/17/20 09:52 [From Toradol] Review of Systems ROS Statement: Those systems with pertinent positive or pertinent negative responses have been documented in the HPI. ROS Other: All systems not noted in ROS Statement are negative. Past Medical History Past Medical History: Coronary Artery Disease (CAD), Chest Pain / Angina, COPD, Deep Vein Thrombosis (DVT), GERD/Reflux, Hyperlipidemia, Hypertension, Osteoarthritis (OA), Thyroid Disorder Additional Past Medical History / Comment(s): Occasional palpitations, slade ritis, small hiatal hernia, diverticular dx, pt states years ago he had PUD, chronic low back pain, chronic pain syndrome, migraines, DVT L arm, numbness/tingling bilateral lower legs, bilateral past R hand fracture, arthritis multiple joints, hyperthyroid, sinus problems. History of Any Multi-Drug Resistant Organisms: None Reported Past Surgical History: Back Surgery, Cholecystectomy, Heart Catheterization With Stent, Orthopedic Surgery Additional Past Surgical History / Comment(s): EGDs/colonoscopies, multiple low back surgeries, bilateral arm and bilateral thigh surgeries for brown recluse spider bites with infection, morphine pain pump insertion and removal due to infection, PCI with stents, L rotator cuff repair, L knee arthroscopy, cervical fusion/cage, R cataract removal. Past Anesthesia/Blood Transfusion Reactions: No Reported Reaction Additional Past Anesthesia/Blood Transfusion Reaction / Comment(s): Pt states after cervical fusion he "" in the recovery room but does not know cause- he was"gone for 8 minutes" and states he was resusitated. Pt received blood after back surgery and tolerated it well. Date of Last Stent Placement:: 10/12/17 Past Psychological History: No Psychological Hx Reported Smoking Status: Former smoker Past Alcohol Use History: None Reported Past Drug Use History: None Reported - Past Family History Father Family Medical History: No Reported History Additional Family Medical History / Comment(s): Father had back problems. He lived to be 82 yrs old. Mother History Unknown: Yes Family Medical History: Hypertension, Myocardial Infarction ([place]) Additional Family Medical History / Comment(s): Mother of a [place] at the age of 55yrs. Brother(s) Family Medical History: Cancer, COPD Additional Family Medical History / Comment(s): Leukemia General Exam - General Exam Comments Initial Comments: GENERAL: Patient is moaning in pain, vomiting in the ER. HEAD: Atraumatic, normocephalic. EYES: Pupils equal round and reactive to light, extraocular movements intact, sclera anicteric, conjunctiva are normal. ENT: TMs normal, nares patent, oropharynx clear without exudates. Moist mucous membranes. NECK: Normal range of motion, supple without lymphadenopathy or JVD. LUNGS: Breath sounds clear to auscultation bilaterally and equal. No wheezes rales or rhonchi. HEART: Regular rate and rhythm without murmurs, rubs or gallops. ABDOMEN: Generalized abdominal tenderness, no specific abdominal pain. Soft, normoactive bowel sounds. No guarding, no rebound. No masses appreciated. : Deferred EXTREMITIES: Normal range of motion, no pitting or edema. No clubbing or cyanosis. NEUROLOGICAL: Cranial nerves II through XII grossly intact. Normal speech, normal gait. PSYCH: Normal mood, normal affect. SKIN: Warm, Dry, normal turgor, no rashes or lesions noted. Course Vital Signs 05/17/20 05/17/20 09:52 12:44 Temperature 99 F 98.7 F Pulse Rate 95 80 Respiratory 18 16 Rate Blood Pressure 150/118 152/98 O2 Sat by Pulse 100 97 Oximetry Procedures - EJ/Peripheral Line No standard instances Consent Obtained: verbal consent Indications: nurses unable to establish peripheral IV Skin Cleansed in Sterile Fashion: Yes Size: 18 Dressing Placed: Tegaderm Patient Tolerated Procedure: well Medical Decision Making - Medical Decision Making Patient is a 64-year-old male, with multiple chronic issues, well-known to the ER presenting with nausea, vomiting, abdominal pain since last night. Patient is on a significant amount of pain medicine that he receives from his pain clinic. He states he only has one or 2 tablets left and has not been able to take him secondary to his vomiting today. Patient's exam reveals some generalized abdominal discomfort, no specific areas of pain. No other acute findings. Patient's labs has no acute findings, lactic acid is normal, lipase is normal. Patient was given fluids, pain control, Zofran and Reglan. He has been resting comfortably in his room. He has had no more active vomiting. I discussed with patient that he needs to follow up with his primary care doctor and the pain clinic if he is wanting more pain meds. He is stable for discharge at this time. Patient is agreement with this plan of care. Return parameters were discussed with the patient and he verbalized understanding. Case discussed with Dr. Almeida. - Lab Data Result diagrams: 05/17/20 10:39 05/17/20 10:39 Lab Results 05/17/20 05/17/20 05/17/20 Range/Units 10:39 10:39 10:39 WBC 8.4 (3.8-10.6) k/uL RBC 4.71 (4.30-5.90) m/uL Hgb 13.5 (13.0-17.5) gm/dL Hct 42.2 (39.0-53.0) % MCV 89.7 (80.0-100.0) fL MCH 28.7 (25.0-35.0) pg MCHC 32.0 (31.0-37.0) g/dL RDW 14.8 (11.5-15.5) % Plt Count 603 H (150-450) k/uL Neutrophils % 89 % Lymphocytes % 8 % Monocytes % 2 % Eosinophils % 1 % Basophils % 0 % Neutrophils # 7.5 (1.3-7.7) k/uL Lymphocytes # 0.6 L (1.0-4.8) k/uL Monocytes # 0.1 (0-1.0) k/uL Eosinophils # 0.1 (0-0.7) k/uL Basophils # 0.0 (0-0.2) k/uL Sodium 142 (137-145) mmol/L Potassium 4.0 (3.5-5.1) mmol/L Chloride 107 (98-107) mmol/L Carbon Dioxide 20 L (22-30) mmol/L Anion Gap 15 mmol/L BUN 22 H (9-20) mg/dL Creatinine 0.66 (0.66-1.25) mg/dL Est GFR (CKD-EPI)AfAm >90 (>60 ml/min/1.73 sqM) Est GFR (CKD-EPI)NonAf >90 (>60 ml/min/1.73 sqM) Glucose 178 H (74-99) mg/dL Plasma Lactic Acid Rosales 1.7 (0.7-2.0) mmol/L Calcium 10.4 H (8.4-10.2) mg/dL Total Bilirubin 0.6 (0.2-1.3) mg/dL AST 18 (17-59) U/L ALT 12 (4-49) U/L Alkaline Phosphatase 90 (38-126) U/L Total Protein 8.8 H (6.3-8.2) g/dL Albumin 5.2 H (3.5-5.0) g/dL Lipase 51 (23-300) U/L Disposition Clinical Impression: Nausea & vomiting, Epigastric abdominal pain Disposition: HOME SELF-CARE Condition: Stable Instructions (If sedation given, give patient instructions): Acute Nausea and Vomiting (ED) Additional Instructions: Please return to the Emergency Department if symptoms worsen or any other concerns. Follow-up with PCP. Prescriptions: Ondansetron Odt [Zofran Odt] 4 mg PO Q8HR PRN #10 tab PRN Reason: Nausea Is patient prescribed a controlled substance at d/c from ED?: No Referrals: None,Stated [Primary Care Provider] - 1-2 days
[2020-05-17 11:04] LABS: Basophils % (A) 0 %; Eosinophils # (A) 0.1 k/uL (0-0.7); Eosinophils % (A) 1 %; HCT 42.2 % (39.0-53.0); HGB 13.5 gm/dL (13.0-17.5); Lymphocytes # (A) 0.6 k/uL (1.0-4.8); Lymphocytes % (A) 8 %; MCH 28.7 pg (25.0-35.0); MCV 89.7 fL (80.0-100.0); Mean Platelet Volume 6.5; Monocytes # (A) 0.1 k/uL (0-1.0); Monocytes % (A) 2 %; Neutrophils # (A) 7.5 k/uL (1.3-7.7); Neutrophils % (A) 89 %; Platelet Count 603 k/uL (150-450); RBC 4.71 m/uL (4.30-5.90); RDW 14.8 % (11.5-15.5); WBC 8.4 k/uL (3.8-10.6)
[2020-05-17 11:05] LABS: ALT 12 U/L (4-49); AST 18 U/L (17-59); African American GFR (CKD) >90 (>60 ml/min/1.73 sqM); Albumin 5.2 g/dL (3.5-5.0); Alkaline Phosphatase 90 U/L (38-126); Anion Gap 15 mmol/L; Blood Urea Nitrogen 22 mg/dL (9-20); Calcium 10.4 mg/dL (8.4-10.2); Carbon Dioxide 20 mmol/L (22-30); Chloride 107 mmol/L (98-107); Glucose 178 mg/dL (74-99); Non-African American GFR(CKD) >90 (>60 ml/min/1.73 sqM); Sodium 142 mmol/L (137-145); Total Bilirubin 0.6 mg/dL (0.2-1.3); Total Protein 8.8 g/dL (6.3-8.2)
[2020-05-17] MEDS ORDERED: METOCLOPRAMIDE 5 MG/ML 2 ML VIAL IVP STA (11:15)
[2020-05-17 12:45] VITALS: BP 152/98; PULSE 80; RESP 16; TEMP 98.7
== END 2020-05-17 13:32 | disposition home or self-care (01) ==
LOC: EC 09:43
DX: R10.13 Epigastric pain (principal); R11.2 Nausea with vomiting, unspecified; I25.10 Atherosclerotic heart disease of native coronary artery without angina pectoris; J44.9 Chronic obstructive pulmonary disease, unspecified; I10 Essential (primary) hypertension; K21.9 Gastro-esophageal reflux disease without esophagitis; Z79.51 Long term (current) use of inhaled steroids; Z79.82 Long term (current) use of aspirin; Z79.02 Long term (current) use of antithrombotics/antiplatelets; Z79.899 Other long term (current) drug therapy; Z88.6 Allergy status to analgesic agent; Z88.5 Allergy status to narcotic agent; Z87.891 Personal history of nicotine dependence; Z95.5 Presence of coronary angioplasty implant and graft; Z86.718 Personal history of other venous thrombosis and embolism; Z87.11 Personal history of peptic ulcer disease; Z98.1 Arthrodesis status
CPT/HCPCS: 99284; 96374; 96375 ×2; 96376 ×2; 96361; 36415; 80053; 83605; 83690; 85025; J2270; J2765; J2405

== ENCOUNTER 2020-05-22 08:06 | Observation (INO) | payer MEDICARE ==
[2020-05-22] MEDS ORDERED: SODIUM CHLORIDE 0.9% 1,000 ML IV STA (08:16)
[2020-05-22] MEDS ORDERED: PANTOPRAZOLE 40 MG/10 ML VIAL IVP ONE (08:18)
--- NOTE | 2020-05-22 08:30 | ED ---
General Adult HPI - General Chief complaint: Abdominal Pain Stated complaint: Vomiting Time Seen by Provider: 05/22/20 08:10 Source: EMS Mode of arrival: EMS Limitations: no limitations - History of Present Illness Initial comments: Dictation was produced using [employer] dictation software. please excuse any grammatical, word or spelling errors. This patient was cared for during a federal and state declared state of emergency secondary to Covid 19 Chief Complaint: 64-year-old male past medical history of chronic pain presents with epigastric abdominal pain, coffee-ground emesis and bloody stools. History of Present Illness: Patient 64-year-old male is brought in by EMS. Patient has history of chronic pain. He sees pain specialist and receives morphine and Percocets on a regular basis from the pain specialist at [place]. Patient states since last night he's been having epigastric pain, nausea and vomiting. Patient states his emesis was coffee-ground all last night. Patient also said he had bloody diarrhea. Patient was just here in the emergency department 5 days ago where he was evaluated for abdominal pain. Patient has any fever, chills or night sweats. He states he has epigastric pain. Pain does not radiate to his back. He states the pain is severe. Patient denies any history of abdominal surgery. Patient had pain medications that were filled earlier this month. Patient states he is almost ran out. He states he has 2 doses left. He takes Percocet and oral morphine 3 times a day. He is scheduled to have his medications refilled in the next 2-3 days. The ROS documented in this emergency department record has been reviewed and confirmed by me. Those systems with pertinent positive or negative responses have been documented in the HPI. All other systems are other negative and/or noncontributory. PHYSICAL EXAM: General Impression: Alert and oriented x3, acute distress secondary to vomiting HEENT: Normocephalic atraumatic, extra-ocular movements intact, pupils equal and reactive to light bilaterally, mucous membranes moist. Cardiovascular: Heart regular rate and rhythm Chest: Able to complete full sentences, no retractions, no tachypnea Abdomen: abdomen soft, mild tenderness to the epigastric area with palpation, non-distended, no organomegaly Musculoskeletal: Pulses present and equal in all extremities, no peripheral edema Motor: no focal deficits noted Neurological: CN II-XII grossly intact, no focal motor or sensory deficits noted Skin: Intact with no visualized rashes ED course: 64-year-old male past medical history of chronic pain presents with epigastric pain, coffee-ground emesis bloody diarrhea. All signs upon arrival are within acceptable limits. Patient vomiting at bedside. He does have bilious emesis in the basin at bedside. report was reviewed. Patient has a score in the 400s. He had a total of 180 pills of controlled narcotic oral medications that were filled earlier this month. When asked what medications will help was nausea, he states that Phenergan and Dilaudid usually treat his symptoms. Patient is EGD performed from December of this year. There appeared to be mild gastritis to the antrum and body. No active bleeding was noted at that time. Considering patient's symptomatology and history of present illness is concerned that patient is experiencing opiate withdrawal symptoms. EKG shows significantly prolonged QT interval. Patient's medications were reviewed. Patient is prescription for multiple medications that could be prol onged patient's QT interval.Laboratory evaluation obtained. CBC is within acceptable limits. Metabolic panel shows positive anion gap acidosis is likely to fluid water loss from profuse vomiting. Stool occult blood is negative. Hemoglobin stable. Lipase is negative. Patient given 2 of Ativan. He was found to be in stable medical condition. Patient resting comfortably. When reevaluated he woke up and requested opiate medications. Opiate medications were not provided to him. There is concern the patient is opiate seeking. EKG is concerning for significant only prolonged QT. Sightly medication induced. Patient will be admitted for medical monitoring for prolonged QT. Discussed wali reilly case with . sheet was went except patient's care patient agreeable to disposition EKG interpretation: Ventricular rate 95, sinus rhythm, MT interval 156, QRS 94, QTC 540. No MT prolongation. QT prolonged at 540 - Related Data Home Medications Medication Instructions Recorded Confirmed Fluticasone Nasal [place] [Flonase 1 spray EA NOSTRIL BID 04/20/17 05/22/20 Nasal [place]] Morphine Sulfate ER [Ms Contin] 30 mg PO Q8H 10/10/17 05/22/20 tiZANidine [Zanaflex] 4 mg PO TID PRN 02/26/18 05/22/20 Aspirin EC [Ecotrin Low Dose] 81 mg PO DAILY 01/02/20 05/22/20 Carvedilol [Coreg*] 12.5 mg PO AC-BID 01/02/20 05/22/20 Gabapentin [Neurontin] 300 mg PO TID 01/02/20 05/22/20 oxyCODONE-APAP 10-325MG [Percocet 1 tab PO Q8H PRN 01/02/20 05/22/20 10-325 mg] Dicyclomine [Bentyl] 10 mg PO QID 05/02/20 05/22/20 Pantoprazole Sodium [Protonix] 40 mg PO DAILY 05/02/20 05/22/20 Previous Rx's Medication Instructions Recorded Atorvastatin [Lipitor] 80 mg PO HS #30 tab 10/12/17 cloNIDine HCL [Catapres] 0.1 mg PO BID #60 tab 02/08/19 Ezetimibe [Zetia] 10 mg PO DAILY #30 tab 05/24/19 amLODIPine [Norvasc] 5 mg PO BID #60 tab 05/24/19 Nitroglycerin Sl Tabs [Nitrostat] 0.4 mg SUBLINGUAL Q5M PRN #20 tab 07/02/19 Lisinopril 40 mg PO DAILY #14 tab 07/30/19 Furosemide [Lasix] 40 mg PO BID #8 tablet 03/30/20 Ondansetron Odt [Zofran Odt] 4 mg PO Q8HR PRN #10 tab 05/17/20 Allergies Allergy/AdvReac Type Severity Reaction Status Date / Time ibuprofen [From Motrin] Allergy Rash/Hives Verified 05/22/20 09:30 ketorolac tromethamine Allergy Rash/Hives Verified 05/22/20 09:30 [From Toradol] Review of Systems ROS Statement: Those systems with pertinent positive or pertinent negative responses have been documented in the HPI. ROS Other: All systems not noted in ROS Statement are negative. Past Medical History Past Medical History: Coronary Artery Disease (CAD), Chest Pain / Angina, COPD, Deep Vein Thrombosis (DVT), GERD/Reflux, Hyperlipidemia, Hypertension, Osteoarthritis (OA), Thyroid Disorder Additional Past Medical History / Comment(s): Occasional palpitations, gastritis, small hiatal hernia, diverticular dx, pt states years ago he had PUD, chronic low back pain, chronic pain syndrome, migraines, DVT L arm, numbness/tingling bilateral lower legs, bilateral past R hand fracture, arthritis multiple joints, hyperthyroid, sinus problems. History of Any Multi-Drug Resistant Organisms: None Reported Past Surgical History: Back Surgery, Cholecystectomy, Heart Catheterization With Stent, Orthopedic Surgery Additional Past Surgical History / Comment(s): EGDs/colonoscopies, multiple low back surgeries, bilateral arm and bilateral thigh surgeries for brown recluse spider bites with infection, morphine pain pump insertion and removal due to infection, PCI with stents, L rotator cuff repair, L knee arthroscopy, cervical fusion/cage, R cataract removal. Past Anesthesia/Blood Transfusion Reactions: No Reported Reaction Additional Past Anesthesia/Blood Transfusion Reaction / Comment(s): Pt states after cervical fusion he "" in the recovery room but does not know cause- he was"gone for 8 minutes" and states he was resusitated. Pt received blood after back surgery and tolerated it well. Date of Last Stent Placement:: 10/12/17 Past Psychological History: No Psychological Hx Reported Smoking Status: Former smoker Past Alcohol Use History: None Reported Past Drug Use History: None Reported - Past Family History Father Family Medical History: No Reported History Additional Family Medical History / Comment(s): Father had back problems. He lived to be 82 yrs old. Mother History Unknown: Yes Family Medical History: Hypertension, Myocardial Infarction ([place]) Additional Family Medical History / Comment(s): Mother of a [place] at the age of 55yrs. Brother(s) Family Medical History: Cancer, COPD Additional Family Medical History / Comment(s): Leukemia General Exam Limitations: no limitations Course Vital Signs 05/22/20 08:10 Temperature 98.5 F Pulse Rate 89 Respiratory 18 Rate Blood Pressure 169/100 O2 Sat by Pulse 100 Oximetry Medical Decision Making - Lab Data Result diagrams: 05/22/20 09:01 05/22/20 09:01 Lab Results 05/22/20 05/22/20 05/22/20 Range/Units 09:01 09:01 09:01 WBC 6.2 (3.8-10.6) k/uL RBC 4.83 (4.30-5.90) m/uL Hgb 14.1 (13.0-17.5) gm/dL Hct 43.4 (39.0-53.0) % MCV 89.8 (80.0-100.0) fL MCH 29.3 (25.0-35.0) pg MCHC 32.6 (31.0-37.0) g/dL RDW 14.6 (11.5-15.5) % Plt Count 533 H (150-450) k/uL Neutrophils % 85 % Lymphocytes % 10 % Monocytes % 3 % Eosinophils % 1 % Basophils % 0 % Neutrophils # 5.2 (1.3-7.7) k/uL Lymphocytes # 0.6 L (1.0-4.8) k/uL Monocytes # 0.2 (0-1.0) k/uL Eosinophils # 0.1 (0-0.7) k/uL Basophils # 0.0 (0-0.2) k/uL Sodium 141 (137-145) mmol/L Potassium 3.4 L (3.5-5.1) mmol/L Chloride 105 (98-107) mmol/L Carbon Dioxide 21 L (22-30) mmol/L Anion Gap 15 mmol/L BUN 21 H (9-20) mg/dL Creatinine 0.65 L (0.66-1.25) mg/dL Est GFR (CKD-EPI)AfAm >90 (>60 ml/min/1.73 sqM) Est GFR (CKD-EPI)NonAf >90 (>60 ml/min/1.73 sqM) Glucose 184 H (74-99) mg/dL Calcium 10.1 (8.4-10.2) mg/dL Total Bilirubin 1.3 (0.2-1.3) mg/dL AST 42 (17-59) U/L ALT 43 (4-49) U/L Alkaline Phosphatase 90 (38-126) U/L Total Protein 9.0 H (6.3-8.2) g/dL Albumin 5.4 H (3.5-5.0) g/dL Lipase 87 (23-300) U/L Stool Occult Blood Negative (Negative) Disposition Clinical Impression: Prolonged QT interval Disposition: ADMITTED IP TO THIS [facility] Condition: Fair Referrals: None,Stated [Primary Care Provider] - 1-2 days Decision Time: 10:02
[2020-05-22] MEDS ORDERED: MAG HYDROX/AL HYDROX/SIMETH 30 ML, HYOSCYAMINE ELIXIR 10 ML, LIDOCAINE VISCOUS 2% 10 ML PO STA ×3 (08:33)
[2020-05-22] MEDS ORDERED: HALOPERIDOL LACTATE 5 MG/ML 1 ML VIAL IM STA (08:36)
[2020-05-22] MEDS ORDERED: LORazepam 2 MG/ML INJ IV STA (09:00)
[2020-05-22 09:16] LABS: Basophils % (A) 0 %; Eosinophils # (A) 0.1 k/uL (0-0.7); Eosinophils % (A) 1 %; HCT 43.4 % (39.0-53.0); HGB 14.1 gm/dL (13.0-17.5); Lymphocytes # (A) 0.6 k/uL (1.0-4.8); Lymphocytes % (A) 10 %; MCH 29.3 pg (25.0-35.0); MCHC 32.6 g/dL (31.0-37.0); MCV 89.8 fL (80.0-100.0); Mean Platelet Volume 6.6; Monocytes # (A) 0.2 k/uL (0-1.0); Monocytes % (A) 3 %; Neutrophils # (A) 5.2 k/uL (1.3-7.7); Neutrophils % (A) 85 %; Platelet Count 533 k/uL (150-450); RBC 4.83 m/uL (4.30-5.90); RDW 14.6 % (11.5-15.5); WBC 6.2 k/uL (3.8-10.6)
[2020-05-22 09:30] LABS: ALT 43 U/L (4-49); AST 42 U/L (17-59); African American GFR (CKD) >90 (>60 ml/min/1.73 sqM); Albumin 5.4 g/dL (3.5-5.0); Alkaline Phosphatase 90 U/L (38-126); Anion Gap 15 mmol/L; Blood Urea Nitrogen 21 mg/dL (9-20); Calcium 10.1 mg/dL (8.4-10.2); Carbon Dioxide 21 mmol/L (22-30); Chloride 105 mmol/L (98-107); Glucose 184 mg/dL (74-99); Non-African American GFR(CKD) >90 (>60 ml/min/1.73 sqM); Potassium 3.4 mmol/L (3.5-5.1); Sodium 141 mmol/L (137-145); Total Bilirubin 1.3 mg/dL (0.2-1.3)
[2020-05-22] MEDS ORDERED: NALOXONE 0.4 MG/ML 1 ML VIAL IV PRN (10:02)
[2020-05-22] MEDS ORDERED: ACETAMINOPHEN TAB 325 MG TAB PO PRN (10:02)
[2020-05-22] MEDS ORDERED: METOCLOPRAMIDE 5 MG/ML 2 ML VIAL IVP PRN (10:04)
--- NOTE | 2020-05-22 10:14 | XR ---
EXAMINATION TYPE: XR abdomen 1V DATE OF EXAM: 05/22/2020 COMPARISON: NONE HISTORY: Pain TECHNIQUE: Single supine KUB image of the abdomen is obtained FINDINGS: Small bowel demonstrates no evidence for dilatation or air fluid levels. Gas and fecal material is seen in non-distended colon. No convincing evidence for pneumoperitoneum. No unusual calcifications. The lung bases are clear. Postoperative changes lumbar spine are stable. IMPRESSION: 1. Overall nonobstructive bowel gas pattern.
[2020-05-22] MEDS: SODIUM CHLORIDE 0.9% 1,000 ML IV SCH ×2 (10:27→22:20)
[2020-05-22] MEDS ORDERED: oxyCODONE-APAP 10-325MG 1 EACH TAB PO PRN (10:58)
[2020-05-22] MEDS ORDERED: NITROGLYCERIN SL TABS 0.4 MG TAB SUBLINGUAL PRN (10:58)
[2020-05-22] MEDS ORDERED: ONDANSETRON ODT 4 MG TAB PO PRN (10:58)
[2020-05-22] MEDS ORDERED: IOPAMIDOL CONTRAST (ORAL USE) VIAL PO PRN ×2 (11:12→11:14)
[2020-05-22] MEDS ORDERED: TRIMETHOBENZAMIDE 100 MG/ML 2 ML VIAL IM PRN (11:19)
[2020-05-22] MEDS ORDERED: POTASSIUM CHLORIDE 20 MEQ in WATER FOR INJECTION 1 100ML.BAG IVPB STA (11:21)
[2020-05-22] MEDS ORDERED: Potassium Replacement Protocol 1 EACH MISC MISCELLANE PRN (11:21)
[2020-05-22] MEDS ORDERED: MORPHINE SULFATE 4 MG/ML SYRINGE IVP PRN (11:22)
[2020-05-22] MEDS ORDERED: hydrALAZINE HCL 20 MG/ML 1 ML VIAL IVP PRN (11:24)
--- NOTE | 2020-05-22 11:25 | P.HPIM ---
History of Present Illness this is a pleasant 64 years old male with past medical history of coronary artery disease, COPD, Deep venous thrombosis, hypertension, hyperlipidemia, hypothyroidism, diverticular disease, chronic low back pain, chronic pain syndro me, migraines, numbness tingling in both legs.patient says that he doesn't have to CP but he follows up with the pain clinic and [facility]. Patient presents because of vomiting all night of dark yellow/brown liquid, associated with severe periumbilical abdominal pain felt like a cramping about 9/10 in severity, nonradiating, associated with diarrhea for 1 week. There was a suspicion of blood in his vomitus or stool, however his hemoglobin is stable and occult blood in the stool is negative. 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 Gleason who is going to evaluate the patient, also we will order a CAT scan of the abdomen and pelvis with IV and oral contrast to rule out urgent intra-abdominal lesion Review of Systems CONSTITUTIONAL: No fever, no malaise, no fatigue. HEENT: No recent visual problems or hearing problems. Denied any sore throat. CARDIOVASCULAR: No orthopnea, PND, no palpitations, no syncope. PULMONARY: No shortness of breath, no cough, no hemoptysis. NEUROLOGICAL: No headaches, no weakness, no numbness. HEMATOLOGICAL: Denies any bleeding or petechiae. GENITOURINARY: Denies any burning micturition, frequency, or urgency. MUSCULOSKELETAL/RHEUMATOLOGICAL: Denies any joint pain, swelling, or any muscle pain. ENDOCRINE: Denies any polyuria or polydipsia. Past Medical History Past Medical History: Coronary Artery Disease (CAD), Chest Pain / Angina, COPD, Deep Vein Thrombosis (DVT), GERD/Reflux, Hyperlipidemia, Hypertension, Osteoarthritis (OA), Thyroid Disorder Additional Past Medical History / Comment(s): Occasional palpitations, gastritis, small hiatal hernia, diverticular dx, pt states years ago he had PUD, chronic low back pain, chronic pain syndrome, migraines, DVT L arm, nu mbness/tingling bilateral lower legs, bilateral past R hand fracture, arthritis multiple joints, hyperthyroid, sinus problems. History of Any Multi-Drug Resistant Organisms: None Reported Past Surgical History: Back Surgery, Cholecystectomy, Heart Catheterization With Stent, Orthopedic Surgery Additional Past Surgical History / Comment(s): EGDs/colonoscopies, multiple low back surgeries, bilateral arm and bilateral thigh surgeries for brown recluse spider bites with infection, morphine pain pump insertion and removal due to infection, PCI with stents, L rotator cuff repair, L knee arthroscopy, cervical fusion/cage, R cataract removal. Past Anesthesia/Blood Transfusion Reactions: No Reported Reaction Additional Past Anesthesia/Blood Transfusion Reaction / Comment(s): Pt states after cervical fusion he "" in the recovery room but does not know cause- he was"gone for 8 minutes" and states he was resusitated. Pt received blood after back surgery and tolerated it well. Date of Last Stent Placement:: 10/12/17 Past Psychological History: No Psychological Hx Reported Smoking Status: Former smoker Past Alcohol Use History: None Reported Past Drug Use History: None Reported - Past Family History Father Family Medical History: No Reported History Additional Family Medical History / Comment(s): Father had back problems. He lived to be 82 yrs old. Mother History Unknown: Yes Family Medical History: Hypertension, Myocardial Infarction ([place]) Additional Family Medical History / Comment(s): Mother of a [place] at the age of 55yrs. Brother(s) Family Medical History: Cancer, COPD Additional Family Medical History / Comment(s): Leukemia Medications and Allergies Home Medications Medication Instructions Recorded Confirmed Type Fluticasone Nasal [place] [Flonase 1 spray EA NOSTRIL BID 04/20/17 05/22/20 History Nasal [place]] Morphine Sulfate ER [Ms Contin] 30 mg PO Q8H 10/10/17 05/22/20 History Atorvastatin [Lipitor] 80 mg PO HS #30 tab 10/12/17 05/22/20 Rx tiZANidine [Zanaflex] 4 mg PO TID PRN 02/26/18 05/22/20 History cloNIDine HCL [Catapres] 0.1 mg PO BID #60 tab 02/08/19 05/22/20 Rx Ezetimibe [Zetia] 10 mg PO DAILY #30 tab 05/24/19 05/22/20 Rx amLODIPine [Norvasc] 5 mg PO BID #60 tab 05/24/19 05/22/20 Rx Nitroglycerin Sl Tabs [Nitrostat] 0.4 mg SUBLINGUAL Q5M PRN #20 tab 07/02/19 05/22/20 Rx Lisinopril 40 mg PO DAILY #14 tab 07/30/19 05/22/20 Rx Aspirin EC [Ecotrin Low Dose] 81 mg PO DAILY 01/02/20 05/22/20 History Carvedilol [Coreg*] 12.5 mg PO AC-BID 01/02/20 05/22/20 History Gabapentin [Neurontin] 300 mg PO TID 01/02/20 05/22/20 History oxyCODONE-APAP 10-325MG [Percocet 1 tab PO Q8H PRN 01/02/20 05/22/20 History 10-325 mg] Furosemide [Lasix] 40 mg PO BID #8 tablet 03/30/20 05/22/20 Rx Dicyclomine [Bentyl] 10 mg PO QID 05/02/20 05/22/20 History Pantoprazole Sodium [Protonix] 40 mg PO DAILY 05/02/20 05/22/20 History Ondansetron Odt [Zofran Odt] 4 mg PO Q8HR PRN #10 tab 05/17/20 05/22/20 Rx Allergies Allergy/AdvReac Type Severity Reaction Status Date / Time ibuprofen [From Motrin] Allergy Rash/Hives Verified 05/22/20 09:30 ketorolac tromethamine Allergy Rash/Hives Verified 05/22/20 09:30 [From Toradol] Physical Exam Vitals: Vital Signs Temp Pulse Resp BP Pulse Ox 05/22/20 10:28 88 18 98 05/22/20 10:00 81 16 99 05/22/20 09:30 86 16 150/92 98 05/22/20 09:00 85 16 157/95 100 05/22/20 08:30 85 16 169/100 100 05/22/20 08:10 98.5 F 89 18 169/100 100 Intake and Output 05/21/20 05/22/20 05/22/20 22:59 06:59 14:59 Other: Weight 79.379 kg GENERAL: The patient is alert and oriented x3, not in any acute distress. Well developed, well nourished. HEENT: Pupils are round and equally reacting to light. EOMI. No scleral icterus. No conjunctival pallor. Normocephalic, atraumatic. No pharyngeal erythema. No thyromegaly. CARDIOVASCULAR: S1 and S2 present. No murmurs, rubs, or gallops. PULMONARY: Chest is clear to auscultation, no wheezing or crackles. -ABDOMEN: Soft, Periumbilical tenderness with guardingr, nondistended, normoactive bowel sounds. No palpable organomegaly. MUSCULOSKELETAL: No joint swelling or deformity. EXTREMITIES: No cyanosis, clubbing, or pedal edema. NEUROLOGICAL: Gross neurological examination did not reveal any focal deficits. SKIN: No rashes. No petechiae Results CBC & Chem 7: 05/22/20 09:01 05/22/20 09:01 Labs: Abnormal Lab Results - Last 24 Hours (Table) 05/22/20 05/22/20 Range/Units 09:01 09:01 Plt Count 533 H (150-450) k/uL Lymphocytes # 0.6 L (1.0-4.8) k/uL Potassium 3.4 L (3.5-5.1) mmol/L Carbon Dioxide 21 L (22-30) mmol/L BUN 21 H (9-20) mg/dL Creatinine 0.65 L (0.66-1.25) mg/dL Glucose 184 H (74-99) mg/dL Total Protein 9.0 H (6.3-8.2) g/dL Albumin 5.4 H (3.5-5.0) g/dL Assessment and Plan Assessment: severe abdominal pain and guarding, Rule out intra-abdominal lesion prolonged QTC, on admission abdominal pain with suspected bleeding per GI however his occult blood in stool was negative hypertension Hyperlipidemia Hypothyroidism Diverticular disease Chronic low back pain Chronic pain syndrome Migraines Bilateral leg numbness and tingling COPD, active issue history of dvt anastomosis not on anticoagulation. Plan: this is a pleasant 64 years old male who presents with abdominal pain and prolonged QTC, stop some of the medication like mild prolonged QTC like Zofran and Zanaflex, replace potassium, he potassium more than 4 and magnesium more than 2, consult cardiology, we'll check iron studies. Monitor hemoglobin. Keep the patient nothing by mouth. We'll do CAT scan of the abdomen and pelvis. Consult surgery team Labs and medication were reviewed.. Continue same treatment. Continue with symptomatic treatment. Resume home medication. Monitor lytes and vitals. DVT and GI prophylaxis. Further recommendations of the clinical course of the patient DVT prophylaxis: Subcutaneous heparin GI Prophylaxis: Ppi prognosis is guarded
--- NOTE | 2020-05-22 11:34 | P.GSCN ---
History of Present Illness Consult date: 05/22/20 Reason for Consult: Nausea, abdominal pain History of present illness: This a 64-year-old male who was admitted to the medical service. Patient was admitted through emergency complaints of nausea and abdominal pain. Patient is a pain clinic patient. He states he has pain throughout his abdomen. Past Medical History Past Medical History: Coronary Artery Disease (CAD), Chest Pain / Angina, COPD, Deep Vein Thrombosis (DVT), GERD/Reflux, Hyperlipidemia, Hypertension, Osteoarthritis (OA), Thyroid Disorder Additional Past Medical History / Comment(s): Occasional palpitations, gastritis, small hiatal hernia, diverticular dx, pt states years ago he had PUD, chronic low back pain, chronic pain syndrome, migraines, DVT L arm, numbness/tingling bilateral lower legs, bilateral past R hand fracture, arthritis multiple joints, hyperthyroid, sinus problems. History of Any Multi-Drug Resistant Organisms: None Reported Past Surgical History: Back Surgery, Cholecystectomy, Heart Catheterization With Stent, Orthopedic Surgery Additional Past Surgical History / Comment(s): EGDs/colonoscopies, multiple low back surgeries, bilateral arm and bilateral thigh surgeries for brown recluse spider bites with infection, morphine pain pump insertion and removal due to infection, PCI with stents, L rotator cuff repair, L knee arthroscopy, cervical fusion/cage, R cataract removal. Past Anesthesia/Blood Transfusion Reactions: No Reported Reaction Additional Past Anesthesia/Blood Transfusion Reaction / Comm: Pt states after cervical fusion he "" in the recovery room but does not know cause- he was"gone for 8 minutes" and states he was resusitated. Pt received blood after back surgery and tolerated it well. Date of Last Stent Placement:: 10/12/17 Past Psychological History: No Psychological Hx Reported Smoking Status: Former smoker Past Alcohol Use History: None Reported Past Drug Use History: None Reported - Past Family History Father Family Medical History: No Reported History Additional Family Medical History / Comment(s): Father had back problems. He lived to be 82 yrs old. Mother History Unknown: Yes Family Medical History: Hypertension, Myocardial Infarction ([place]) Additional Family Medical History / Comment(s): Mother of a [place] at the age of 55yrs. Brother(s) Family Medical History: Cancer, COPD Additional Family Medical History / Comment(s): Leukemia Medications and Allergies Home Medications Medication Instructions Recorded Confirmed Type Fluticasone Nasal [place] [Flonase 1 spray EA NOSTRIL BID 04/20/17 05/22/20 History Nasal [place]] Morphine Sulfate ER [Ms Contin] 30 mg PO Q8H 10/10/17 05/22/20 History Atorvastatin [Lipitor] 80 mg PO HS #30 tab 10/12/17 05/22/20 Rx tiZANidine [Zanaflex] 4 mg PO TID PRN 02/26/18 05/22/20 History cloNIDine HCL [Catapres] 0.1 mg PO BID #60 tab 02/08/19 05/22/20 Rx Ezetimibe [Zetia] 10 mg PO DAILY #30 tab 05/24/19 05/22/20 Rx amLODIPine [Norvasc] 5 mg PO BID #60 tab 05/24/19 05/22/20 Rx Nitroglycerin Sl Tabs [Nitrostat] 0.4 mg SUBLINGUAL Q5M PRN #20 tab 07/02/19 05/22/20 Rx Lisinopril 40 mg PO DAILY #14 tab 07/30/19 05/22/20 Rx Aspirin EC [Ecotrin Low Dose] 81 mg PO DAILY 01/02/20 05/22/20 History Carvedilol [Coreg*] 12.5 mg PO AC-BID 01/02/20 05/22/20 History Gabapentin [Neurontin] 300 mg PO TID 01/02/20 05/22/20 History oxyCODONE-APAP 10-325MG [Percocet 1 tab PO Q8H PRN 01/02/20 05/22/20 History 10-325 mg] Furosemide [Lasix] 40 mg PO BID #8 tablet 03/30/20 05/22/20 Rx Dicyclomine [Bentyl] 10 mg PO QID 05/02/20 05/22/20 History Pantoprazole Sodium [Protonix] 40 mg PO DAILY 05/02/20 05/22/20 History Ondansetron Odt [Zofran Odt] 4 mg PO Q8HR PRN #10 tab 05/17/20 05/22/20 Rx Allergies Allergy/AdvReac Type Severity Reaction Status Date / Time ibuprofen [From Motrin] Allergy Rash/Hives Verified 05/22/20 09:30 ketorolac tromethamine Allergy Rash/Hives Verified 05/22/20 09:30 [From Toradol] Surgical - Exam Vital Signs Temp Pulse Resp BP Pulse Ox 98.5 F 89 18 169/100 100 05/22/20 08:10 05/22/20 08:10 05/22/20 08:10 05/22/20 08:10 05/22/20 08:10 - General well developed, well nourished, no distress - Eyes PERRL - ENT normal pinna - Neck no masses - Respiratory normal expansion - Cardiovascular Rhythm: regular - Abdomen Mild tenderness throughout there is no rebound or guarding Abdomen: soft Results - Labs 05/22/20 09:01 05/22/20 09:01 Abnormal Lab Results - Last 24 Hours (Table) 05/22/20 05/22/20 Range/Units 09:01 09:01 Plt Count 533 H (150-450) k/uL Lymphocytes # 0.6 L (1.0-4.8) k/uL Potassium 3.4 L (3.5-5.1) mmol/L Carbon Dioxide 21 L (22-30) mmol/L BUN 21 H (9-20) mg/dL Creatinine 0.65 L (0.66-1.25) mg/dL Glucose 184 H (74-99) mg/dL Total Protein 9.0 H (6.3-8.2) g/dL Albumin 5.4 H (3.5-5.0) g/dL Diabetes panel 05/22/20 Range/Units 09:01 Sodium 141 (137-145) mmol/L Potassium 3.4 L (3.5-5.1) mmol/L Chloride 105 (98-107) mmol/L Carbon Dioxide 21 L (22-30) mmol/L BUN 21 H (9-20) mg/dL Creatinine 0.65 L (0.66-1.25) mg/dL Glucose 184 H (74-99) mg/dL Calcium 10.1 (8.4-10.2) mg/dL AST 42 (17-59) U/L ALT 43 (4-49) U/L Alkaline Phosphatase 90 (38-126) U/L Total Protein 9.0 H (6.3-8.2) g/dL Albumin 5.4 H (3.5-5.0) g/dL Calcium panel 05/22/20 Range/Units 09:01 Calcium 10.1 (8.4-10.2) mg/dL Albumin 5.4 H (3.5-5.0) g/dL Pituitary panel 05/22/20 Range/Units 09:01 Sodium 141 (137-145) mmol/L Potassium 3.4 L (3.5-5.1) mmol/L Chloride 105 (98-107) mmol/L Carbon Dioxide 21 L (22-30) mmol/L BUN 21 H (9-20) mg/dL Creatinine 0.65 L (0.66-1.25) mg/dL Glucose 184 H (74-99) mg/dL Calcium 10.1 (8.4-10.2) mg/dL Adrenal panel 05/22/20 Range/Units 09:01 Sodium 141 (137-145) mmol/L Potassium 3.4 L (3.5-5.1) mmol/L Chloride 105 (98-107) mmol/L Carbon Dioxide 21 L (22-30) mmol/L BUN 21 H (9-20) mg/dL Creatinine 0.65 L (0.66-1.25) mg/dL Glucose 184 H (74-99) mg/dL Calcium 10.1 (8.4-10.2) mg/dL Total Bilirubin 1.3 (0.2-1.3) mg/dL AST 42 (17-59) U/L ALT 43 (4-49) U/L Alkaline Phosphatase 90 (38-126) U/L Total Protein 9.0 H (6.3-8.2) g/dL Albumin 5.4 H (3.5-5.0) g/dL Assessment and Plan Assessment: Nausea, abdominal pain. Patient will undergo computed tomography scan of the abdomen pelvis oral and IV contrast to have for possible bowel obstruction.
[2020-05-22] MEDS: MORPHINE SULFATE ER 30 MG TABLET PO SCH ×2 (11:41→22:19)
[2020-05-22] MEDS: DICYCLOMINE 10 MG CAP PO SCH ×3 (12:37→22:21)
--- NOTE | 2020-05-22 13:29 | CT ---
EXAMINATION TYPE: CT abdomen pelvis w con DATE OF EXAM: 05/22/2020 COMPARISON: 12/30/2019 HISTORY: 64-year-old male Periumbilical pain TECHNIQUE: Contiguous axial scanning of the abdomen and pelvis following administration of 100 ml Omn ipaque 300 IV contrast. Delayed images through the kidneys and coronal/sagittal reconstructions perf ormed. CT DLP: 888.8 mGycm Automated exposure control for dose reduction was used. FINDINGS: LUNG BASES: Minimal nodular groundglass of the posterior left base. No pleural effusion. LIVER/GB: Liver borderline in size at 17.3 cm. A couple tiny hepatic cysts measuring up to 7 mm are u nchanged. Portal venous system is patent. Bile duct measures 9 mm with normal distal tapering. Patien t is status post cholecystectomy. PANCREAS: Borderline dilatation of the main pancreatic duct, distally measuring 3 mm appears improved from 12/30/2019. No focal pancreatic lesion is identified. SPLEEN: No significant abnormality is seen. Tiny inferior splenule. ADRENALS: No significant abnormality is seen. KIDNEYS: No significant abnormality is seen. LYMPH NODES: No mesenteric or retroperitoneal lymphadenopathy. Tiny fatty umbilical hernia. BOWEL: No dilated small bowel, free fluid, free air. Normal appendix. Mild stool within the right si de of the colon. Lower descending and proximal sigmoid diverticulosis without pericolonic inflammator y change. PELVIS: Bladder urine distended. Prostate gland measures 4.3 cm wide. No abnormal fluid collection in the pelvis or pelvic lymphadenopathy. BONES: Status post L2-S1 posterior and interbody fusion redemonstrated. Corresponding laminectomies. Excreted 1 anterolisthesis at L4-L5. IMPRESSION: 1. MINIMAL NODULAR GROUNDGLASS AT THE POSTERIOR LEFT BASE COULD REPRESENT A SMALL INFECTIOUS/INFLAMMA TORY FOCUS. CORRELATE WITH PATIENT'S SYMPTOMS. 2. MAIN PANCREATIC DUCT IS NOW ONLY BORDERLINE DILATED AT 3 MM, IMPROVED FROM 6 MM SEEN ON THE 12/30/19 EXAM. NO DISTAL OBSTRUCTING LESION IDENTIFIED. 3. SMALL FATTY UMBILICAL HERNIA. 4. MILD DISTAL COLONIC DIVERTICULOSIS WITHOUT ACUTE DIVERTICULITIS.
--- NOTE | 2020-05-22 14:58 | P.CRDCN ---
History of Present Illness Consult date: 05/22/20 Requesting physician: Denton Mariano Chief complaint: Abdominal pain and vomiting History of present illness: This is a 64-year-old -[place] gentleman with past medical history significant for coronary artery disease and prior PCI, hypertension, hyperlipidemia, gastritis, follows with Dr. BASILIA Go in the office. His last cardiac catheterization was performed in April 2019 which did not reveal evidence of significant progression of disease. He presented to the hospital on this occasion with symptoms of abdominal pain with vomiting, through most of the night, add dark yellow weak green emesis. For this reason he came to the emergency room for further evaluation and treatment. The patient was seen in the emergency room, continues to have episodes of vomiting, dark green emesis. X-ray of the abdomen performed on arrival here showed nonobstructive bowel gas pattern. EKG showed a normal sinus rhythm with occasional PACs, nonspecific ST- T wave changes. QTc measuring 540. Because of the prolonged QT a cardiology consultation has been requested. Blood pressure 150/92, heart rate in the 80s, 98% on room air. White blood cell count 6.2, hemoglobin 14.1, platelet count 533. Sodium 141, potassium 3.4, BUN 21, creatinine 0.6. Magnesium 2.2. Stool for occult blood is negative. At the time of my examination, patient continues to complain of moderate to severe abdominal pain, persistent retching and vomiting. Patient's most recent echo cardiogram with Doppler study was performed in April of this year which revealed an ejection fraction of 55-60%. He also underwent a dobutamine echocardiographic study earlier this month which was negative for reversible ischemia. Past Medical History Past Medical History: Coronary Artery Disease (CAD), Chest Pain / Angina, COPD, Deep Vein Thrombosis (DVT), GERD/Reflux, Hyperlipidemia, Hypertension, Osteoarthritis (OA), Thyroid Disorder Additional Past Medical History / Comment(s): Occasional palpitations, gastritis, small hiatal hernia, diverticular dx, pt states years ago he had PUD, chronic low back pain, chronic pain syndrome, migraines, DVT L arm, numbness/tingling bilateral lower legs, bilateral past R hand fracture, arthritis multiple joints, hyperthyroid, sinus problems. History of Any Multi-Drug Resistant Organisms: None Reported Past Surgical History: Back Surgery, Cholecystectomy, Heart Catheterization With Stent, Orthopedic Surgery Additional Past Surgical History / Comment(s): EGDs/colonoscopies, multiple low back surgeries, bilateral arm and bilateral thigh surgeries for brown recluse spider bites with infection, morphine pain pump insertion and removal due to infection, PCI with stents, L rotator cuff repair, L knee arthroscopy, cervical fusion/cage, R cataract removal. Past Anesthesia/Blood Transfusion Reactions: No Reported Reaction Additional Past Anesthesia/Blood Transfusion Reaction / Comment(s): Pt states after cervical fusion he "" in the recovery room but does not know cause- he was"gone for 8 minutes" and states he was resusitated. Pt received blood after back surgery and tolerated it well. Date of Last Stent Placement:: 10/12/17 Past Psychological History: No Psychological Hx Reported Smoking Status: Former smoker Past Alcohol Use History: None Reported Past Drug Use History: None Reported - Past Family History Father Family Medical History: No Reported History Additional Family Medical History / Comment(s): Father had back problems. He lived to be 82 yrs old. Mother History Unknown: Yes Family Medical History: Hypertension, Myocardial Infarction ([place]) Additional Family Medical History / Comment(s): Mother of a [place] at the age of 55yrs. Brother(s) Family Medical History: Cancer, COPD Additional Family Medical History / Comment(s): Leukemia Medications and Allergies Home Medications Medication Instructions Recorded Confirmed Type Fluticasone Nasal [place] [Flonase 1 spray EA NOSTRIL BID 04/20/17 05/22/20 History Nasal [place]] Morphine Sulfate ER [Ms Contin] 30 mg PO Q8H 10/10/17 05/22/20 History Atorvastatin [Lipitor] 80 mg PO HS #30 tab 10/12/17 05/22/20 Rx tiZANidine [Zanaflex] 4 mg PO TID PRN 02/26/18 05/22/20 History cloNIDine HCL [Catapres] 0.1 mg PO BID #60 tab 02/08/19 05/22/20 Rx Ezetimibe [Zetia] 10 mg PO DAILY #30 tab 05/24/19 05/22/20 Rx amLODIPine [Norvasc] 5 mg PO BID #60 tab 05/24/19 05/22/20 Rx Nitroglycerin Sl Tabs [Nitrostat] 0.4 mg SUBLINGUAL Q5M PRN #20 tab 07/02/19 05/22/20 Rx Lisinopril 40 mg PO DAILY #14 tab 07/30/19 05/22/20 Rx Aspirin EC [Ecotrin Low Dose] 81 mg PO DAILY 01/02/20 05/22/20 History Carvedilol [Coreg*] 12.5 mg PO AC-BID 01/02/20 05/22/20 History Gabapentin [Neurontin] 300 mg PO TID 01/02/20 05/22/20 History oxyCODONE-APAP 10-325MG [Percocet 1 tab PO Q8H PRN 01/02/20 05/22/20 History 10-325 mg] Furosemide [Lasix] 40 mg PO BID #8 tablet 03/30/20 05/22/20 Rx Dicyclomine [Bentyl] 10 mg PO QID 05/02/20 05/22/20 History Pantoprazole Sodium [Protonix] 40 mg PO DAILY 05/02/20 05/22/20 History Ondansetron Odt [Zofran Odt] 4 mg PO Q8HR PRN #10 tab 05/17/20 05/22/20 Rx Allergies Allergy/AdvReac Type Severity Reaction Status Date / Time ibuprofen [From Motrin] Allergy Rash/Hives Verified 05/22/20 09:30 ketorolac tromethamine Allergy Rash/Hives Verified 05/22/20 09:30 [From Toradol] Physical Exam Vitals: Vital Signs Temp Pulse Resp BP Pulse Ox 05/22/20 14:36 92 18 161/80 98 05/22/20 11:43 92 18 166/91 98 05/22/20 10:28 88 18 98 05/22/20 10:00 81 16 99 05/22/20 09:30 86 16 150/92 98 05/22/20 09:00 85 16 157/95 100 05/22/20 08:30 85 16 169/100 100 05/22/20 08:10 98.5 F 89 18 169/100 100 Intake and Output 05/21/20 05/22/20 05/22/20 22:59 06:59 14:59 Other: Weight 79.379 kg PHYSICAL EXAMINATION Blood pressure 150/90 heart rate 80 afebrile and maintaining oxygen saturation on room air. CONSTITUTIONAL: No apparent distress. HEENT: Head is normocephalic. Pupils are equal, round. Sclerae anicteric. Mucous membranes of the mouth are moist. No JVD. No carotid bruit. CHEST EXAMINATION: Lungs are clear to auscultation. No chest wall tenderness is noted on palpation or with deep breathing. HEART EXAMINATION: Regular rate and rhythm. S1, S2 heard. No murmurs, gallops or rub. ABDOMEN: Soft, mid umbilical pain, hyperactive bowel sounds. EXTREMITIES: 2+ peripheral pulses, no lower extremity edema and no calf tenderness. NEUROLOGIC EXAMINATION: Patient is awake, alert and oriented x3. Results 05/22/20 09:01 05/22/20 09:01 Cardiac Enzymes 05/22/20 Range/Units 09: AST 42 (17-59) U/L CBC 05/22/20 Range/Units 09:01 WBC 6.2 (3.8-10.6) k/uL RBC 4.83 (4.30-5.90) m/uL Hgb 14.1 (13.0-17.5) gm/dL Hct 43.4 (39.0-53.0) % Plt Count 533 H (150-450) k/uL Comprehensive Metabolic Panel 05/22/20 Range/Units 09:01 Sodium 141 (137-145) mmol/L Potassium 3.4 L (3.5-5.1) mmol/L Chloride 105 (98-107) mmol/L Carbon Dioxide 21 L (22-30) mmol/L BUN 21 H (9-20) mg/dL Creatinine 0.65 L (0.66-1.25) mg/dL Glucose 184 H (74-99) mg/dL Calcium 10.1 (8.4-10.2) mg/dL AST 42 (17-59) U/L ALT 43 (4-49) U/L Alkaline Phosphatase 90 (38-126) U/L Total Protein 9.0 H (6.3-8.2) g/dL Albumin 5.4 H (3.5-5.0) g/dL Current Medications Generic Name Dose Route Start Last Admin Trade Name Freq PRN Reason Stop Dose Admin Acetaminophen 650 mg 05/22/20 10:02 Tylenol Tab PO Q6HR PRN Mild Pain or Fever > 100.5 Amlodipine Besylate 5 mg 05/22/20 21:00 Norvasc PO BID YESICA Aspirin 81 mg 05/23/20 09:00 Aspirin PO DAILY [facility] Atorvastatin Calcium 80 mg 05/22/20 21:00 Lipitor PO HS [facility] Carvedilol 12.5 mg 05/22/20 17:30 Coreg PO AC-BID [facility] Clonidine 0.1 mg 05/22/20 21:00 Catapres PO BID [facility] Dicyclomine HCl 10 mg 05/22/20 13:00 05/22/20 12:37 Bentyl PO 10 mg QID YESICA Administration Ezetimibe 10 mg 05/23/20 09:00 Zetia PO DAILY [facility] Fluticasone Propionate 1 spray 05/22/20 21:00 Flonase Nasal [place] EA NOSTRIL BID [facility] Furosemide 40 mg 05/22/20 17:30 Lasix PO AC-BID [facility] Gabapentin 300 mg 05/22/20 16:00 Neurontin PO TID [facility] Hydralazine HCl 10 mg 05/22/20 11:24 05/22/20 14:05 Apresoline IVP 10 mg Q6HR PRN Administration Blood Pressure - High Sodium Chloride 1,000 mls @ 120 mls/hr 05/22/20 10:15 05/22/20 10:27 Saline 0.9% IV 120 mls/hr .Q8H20M [facility] Administration Iopamidol 30 ml 05/22/20 11:12 Isovue-300 (For Oral Use) PO 05/23/20 11:[address] Scan Lisinopril 40 mg 05/23/20 09:00 Zestril PO DAILY [facility] Metoclopramide HCl 10 mg 05/22/20 10:04 05/22/20 14:04 Reglan IVP 10 mg Q8H PRN Administration nausea, vomiting Miscellaneous Information 1 each 05/22/20 11:21 Potassium Per Protocol MISCELLANE DAILY PRN Per Protocol Protocol Morphine Sulfate 30 mg 05/22/20 11:00 05/22/20 11:41 Ms Contin PO 30 mg Q8H YESICA Administration Morphine Sulfate 4 mg 05/22/20 11:22 05/22/20 14:04 Morphine Sulfate (Inj) IVP 4 mg Q6HR PRN Administration Pain Naloxone HCl 0.2 mg 05/22/20 10:02 Narcan IV Q2M PRN Opioid Reversal Nitroglycerin 0.4 mg 05/22/20 10:58 Nitrostat SUBLINGUAL Q5M PRN Chest Pain Oxycodone/Acetaminophen 1 each 05/22/20 10:58 Percocet 10-325 PO Q8H PRN Pain Pantoprazole Sodium 40 mg 05/23/20 09:00 Protonix IV DAILY YESICA Trimethobenzamide HCl 100 mg 05/22/20 11:19 Tigan IM Q6HR PRN Nausea Intake and Output 05/21/20 05/22/20 05/22/20 22:59 06:59 14:59 Other: Weight 79.379 kg Patient Weight 05/23/20 06:59 Weight 79.379 kg 05/22/20 09:01 05/22/20 09:01 EKG Interpretations (text) EKG shows a normal sinus rhythm with PACs, nonspecific ST-T wave changes. QTc measuring 540 Assessment and Plan Plan: Assessment and plan #1 severe abdominal pain with associated vomiting #2 prolonged QTC, could be secondary to use of Zofran at home #3 hypertension #4 hyperlipidemia #5 diverticular disease #6 chronic pain #7 COPD #8 coronary artery disease with prior PCI, most recent stress test was performed this month which was negative for reversibility, echo was also performed earlier this month which revealed a normal left ventricular systolic function Plan We will not repeat an echo this admission as the patient had one this month earlier. We will repeat an EKG in the morning to assess the QTC, Zofran has been placed on hold and patient is currently receiving Tigan. Recommendations to follow. DNP note has been reviewed, I agree with a documented findings and plan of care. Patient was seen and examined.
[2020-05-22] MEDS ORDERED: FUROSEMIDE 40 MG TAB PO SCH (17:30)
[2020-05-22] MEDS ORDERED: CARVEDILOL 12.5 MG TAB PO SCH (17:30)
[2020-05-22] MEDS: GABAPENTIN 300 MG CAP PO SCH ×2 (17:39→22:19)
[2020-05-22] MEDS ORDERED: amLODIPine 5 MG TAB PO SCH (21:00)
[2020-05-22] MEDS ORDERED: cloNIDine HCL 0.1 MG TAB PO SCH (21:00)
[2020-05-22] MEDS ORDERED: FLUTICASONE 50MCG/SPRAY NASAL 16GM EA NOSTRIL SCH (21:00)
[2020-05-22] MEDS ORDERED: ATORVASTATIN 80 MG TAB PO SCH (21:00)
[2020-05-22 22:06] LABS: Appearance,Urine Clear (Clear); Bilirubin,Urine Negative (Negative); Blood,Urine Small (Negative); Color,Urine Yellow; Glucose,Urine (UA) Negative (Negative); Ketones,Urine Trace (Negative); Leukocyte Esterase,Urine Negative (Negative); Mucus,Urine Rare /hpf; Nitrite,Urine Negative (Negative); Protein,Urine Trace (Negative); RBC,Urine 5 /hpf (0-5); Urobilinogen,Urine <2.0 mg/dL (<2.0); WBC,Urine 1 /hpf (0-5)
[2020-05-22 22:18] LABS: Specific Gravity,Urine 1.049 (1.001-1.035)
[2020-05-22 22:27] LABS: Amphetamine Screen,Urine Not Detected (NotDetected); Barbiturate Screen,Urine Not Detected (NotDetected); Benzodiazepines Screen,Urine Detected (NotDetected); Cocaine Screen,Urine Not Detected (NotDetected); Methadone Screen, Urine Not Detected (NotDetected); Opiate Screen,Urine Detected (NotDetected); Oxycodone Screen, Urine Not Detected (NotDetected); Phencyclidine Screen,Urine Not Detected (NotDetected); Tricyclic Antidepressant,Urine Not Detected (NotDetected); Urn Cannabinoid Scrn Not Detected (NotDetected)
[2020-05-22 22:38] VITALS: RESP 18
[2020-05-23 00:33] VITALS: PULSE 82
[2020-05-23] MEDS: MORPHINE SULFATE ER 30 MG TABLET PO SCH (03:12)
[2020-05-23 04:13] VITALS: BP 117/79; TEMP 97.6
[2020-05-23] MEDS ORDERED: EZETIMIBE 10 MG TAB PO SCH (09:00)
[2020-05-23] MEDS ORDERED: PANTOPRAZOLE 40 MG TABLET PO SCH (09:00)
[2020-05-23] MEDS ORDERED: PANTOPRAZOLE 40 MG/10 ML VIAL IV SCH (09:00)
[2020-05-23] MEDS ORDERED: LISINOPRIL 20 MG TAB PO SCH (09:00)
[2020-05-23] MEDS ORDERED: ASPIRIN 81 MG PO SCH (09:00)
--- NOTE | 2020-05-23 09:07 | P.DS ---
Providers Date of admission: 05/22/20 10:29 Attending physician: Denton Mariano MD Consults: 05/22/20 09:59 Consult Physician Routine Consulting Provider: Yogesh Simmons Consult Reason/Comments: prolonged qt Do you want consulting provider notified?: Yes 05/22/20 11:13 Consult Physician Stat Consulting Provider: Bernardo Velazco Consult Reason/Comments: periumbilical abdominal pain and guarding Do you want consulting provider notified?: Already Contacted Primary care physician: Stated None Hospital Course: Diagnoses: abdominal pain and guarding, CT of the abdomen: Mild colonic diverticulosis without acute diverticulitis, no dilated small bowel, free fluid, free air. Normal appendix. Mild stool within the right side of the colon prolonged QTC, on admission Drug-seeking behavior abdominal pain with suspected bleeding per GI however his occult blood in stool was negative hypertension Hyperlipidemia Hypothyroidism Diverticular disease Chronic low back pain Chronic pain syndrome Migraines Bilateral leg numbness and tingling COPD, active issue history of dvt anastomosis not on anticoagulation. Hospital course: Patient admitted with recurrent nausea vomiting, the ER physician: GI bleed with negative FOBT and stable hemoglobin, however he was admitted for prolonged QTC. When I went to see the patient he was stating that he was in severe pain and he was guarded in his abdomen, so surgical team were consulted and recommended CT of the abdomen and pelvis which was unremarkable for significant lesion explained the patient's presentation. However neck morning and came to see the patient and bedside nurse told me patient already left by signing leaving AMA. Patient earlier before that he showed signs of IV morphine seeking behavior, although there is no medical ground for it. There is AMA paper and in the chart and signed by the patient Patient Condition at Discharge: Fair Plan - Discharge Summary New Discharge Prescriptions: No Action Fluticasone Nasal [place] [Flonase Nasal [place]] 1 spray EA NOSTRIL BID Morphine Sulfate ER [Ms Contin] 30 mg PO Q8H Atorvastatin [Lipitor] 80 mg PO HS #30 tab tiZANidine [Zanaflex] 4 mg PO TID PRN PRN Reason: Muscle Spasm cloNIDine HCL [Catapres] 0.1 mg PO BID #60 tab amLODIPine [Norvasc] 5 mg PO BID #60 tab Ezetimibe [Zetia] 10 mg PO DAILY #30 tab Nitroglycerin Sl Tabs [Nitrostat] 0.4 mg SUBLINGUAL Q5M PRN #20 tab PRN Reason: Chest Pain Lisinopril 40 mg PO DAILY #14 tab Gabapentin [Neurontin] 300 mg PO TID oxyCODONE-APAP 10-325MG [Percocet 10-325 mg] 1 tab PO Q8H PRN PRN Reason: Pain Aspirin EC [Ecotrin Low Dose] 81 mg PO DAILY Carvedilol [Coreg*] 12.5 mg PO AC-BID Furosemide [Lasix] 40 mg PO BID #8 tablet Dicyclomine [Bentyl] 10 mg PO QID Pantoprazole Sodium [Protonix] 40 mg PO DAILY Ondansetron Odt [Zofran Odt] 4 mg PO Q8HR PRN #10 tab PRN Reason: Nausea Discharge Medication List Fluticasone Nasal [place] [Flonase Nasal [place]] 1 spray EA NOSTRIL BID 04/20/17 [History] Morphine Sulfate ER [Ms Contin] 30 mg PO Q8H 10/10/17 [History] Atorvastatin [Lipitor] 80 mg PO HS #30 tab 10/12/17 [Rx] tiZANidine [Zanaflex] 4 mg PO TID PRN 02/26/18 [History] cloNIDine HCL [Catapres] 0.1 mg PO BID #60 tab 02/08/19 [Rx] Ezetimibe [Zetia] 10 mg PO DAILY #30 tab 05/24/19 [Rx] amLODIPine [Norvasc] 5 mg PO BID #60 tab 05/24/19 [Rx] Nitroglycerin Sl Tabs [Nitrostat] 0.4 mg SUBLINGUAL Q5M PRN #20 tab 07/02/19 [Rx] Lisinopril 40 mg PO DAILY #14 tab 07/30/19 [Rx] Aspirin EC [Ecotrin Low Dose] 81 mg PO DAILY 01/02/20 [History] Carvedilol [Coreg*] 12.5 mg PO AC-BID 01/02/20 [History] Gabapentin [Neurontin] 300 mg PO TID 01/02/20 [History] oxyCODONE-APAP 10-325MG [Percocet 10-325 mg] 1 tab PO Q8H PRN 01/02/20 [History] Furosemide [Lasix] 40 mg PO BID #8 tablet 03/30/20 [Rx] Dicyclomine [Bentyl] 10 mg PO QID 05/02/20 [History] Pantoprazole Sodium [Protonix] 40 mg PO DAILY 05/02/20 [History] Ondansetron Odt [Zofran Odt] 4 mg PO Q8HR PRN #10 tab 05/17/20 [Rx] Follow up Appointment(s)/Referral(s): None,Stated [Primary Care Provider] - 1-2 days Discharge Disposition: Left Against Medical Advice
== END 2020-05-23 06:15 | disposition left against medical advice (07) ==
LOC: EC 08:06 → 3SCARD 10:29
PROVIDERS: ADMIT Internal Medicine; ATTEND Internal Medicine
DX: R10.13 Epigastric pain (principal); R11.2 Nausea with vomiting, unspecified; R10.33 Periumbilical pain; K57.31 Diverticulosis of large intestine without perforation or abscess with bleeding; R94.31 Abnormal electrocardiogram [ECG] [EKG]; Z76.5 Malingerer [conscious simulation]; Z53.29 Procedure and treatment not carried out because of patient's decision for other reasons; I10 Essential (primary) hypertension; E03.9 Hypothyroidism, unspecified; E78.5 Hyperlipidemia, unspecified; G89.4 Chronic pain syndrome; M54.5 Low back pain; G43.909 Migraine, unspecified, not intractable, without status migrainosus; R20.0 Anesthesia of skin; R20.2 Paresthesia of skin; J44.9 Chronic obstructive pulmonary disease, unspecified; E87.2 Acidosis; I25.10 Atherosclerotic heart disease of native coronary artery without angina pectoris; K21.9 Gastro-esophageal reflux disease without esophagitis; M19.90 Unspecified osteoarthritis, unspecified site; E05.90 Thyrotoxicosis, unspecified without thyrotoxic crisis or storm; K44.9 Diaphragmatic hernia without obstruction or gangrene; Z03.818 Encounter for observation for suspected exposure to other biological agents ruled out; Z79.891 Long term (current) use of opiate analgesic; Z79.899 Other long term (current) drug therapy; Z79.82 Long term (current) use of aspirin; Z88.6 Allergy status to analgesic agent; Z87.19 Personal history of other diseases of the digestive system; Z86.718 Personal history of other venous thrombosis and embolism; Z87.11 Personal history of peptic ulcer disease; Z87.81 Personal history of (healed) traumatic fracture; Z87.09 Personal history of other diseases of the respiratory system; Z90.49 Acquired absence of other specified parts of digestive tract; Z95.5 Presence of coronary angioplasty implant and graft; Z87.828 Personal history of other (healed) physical injury and trauma; Z86.19 Personal history of other infectious and parasitic diseases; Z87.39 Personal history of other diseases of the musculoskeletal system and connective tissue; Z98.1 Arthrodesis status; Z98.41 Cataract extraction status, right eye; Z91.89 Other specified personal risk factors, not elsewhere classified; Z87.891 Personal history of nicotine dependence; Z82.69 Family history of other diseases of the musculoskeletal system and connective tissue; Z82.49 Family history of ischemic heart disease and other diseases of the circulatory system; Z80.6 Family history of leukemia; Z82.5 Family history of asthma and other chronic lower respiratory diseases
CPT/HCPCS: 96361; 96365; 96366; 96372; 96375; 99285; 36415; 93005; 80053; 83690; 83735; 85025; 82272; 81001; 80306; 74018; 74177; G0378 ×2; U0003; J2060; J2270; J0360; J2765; J3250; J3480; C9113; Q9967

== ENCOUNTER 2020-05-29 15:11 | Observation (INO) | payer MEDICARE ==
[2020-05-29] MEDS ORDERED: ASPIRIN 81 MG PO STA (15:34)
[2020-05-29] MEDS ORDERED: HYDROcodone/APAP 5-325MG 1 EACH TAB PO STA (15:36)
--- NOTE | 2020-05-29 15:36 | ED ---
General Adult HPI - General Source: patient, RN notes reviewed, old records reviewed Mode of arrival: ambulatory Limitations: no limitations <Nelson Tate - Last Filed: 05/29/20 19:23> <Diann Wagner - Last Filed: 06/04/20 00:36> - General Chief complaint: Extremity Problem,Nontraumatic Stated complaint: Bilateral Feet Swelling Time Seen by Provider: 05/29/20 15:18 - History of Present Illness Initial comments: 64-year-old male patient past medical history significant for multiple back surgeries, history of coronary artery disease with 3 stents. Presents to ED with chief complaint of lower extremity swelling bilaterally for the last 2 weeks. Patient does also report that approximately 4 hours ago he had appeared a sharp stabbing pain below his left breast. Denies any chest pain or shortness of breath this time. He denies any other complaints at this time. Systemic: Pt denies fatigue, fever/chills, rash. Pt denies weakness, night sweats, weight loss. Neuro: Pt denies headache, visual disturbances, syncope or pre-syncope. HEENT: Pt denies ocular discharge or irritation, otalgia, rhinorrhea, pharyngitis or notable lymphadenopathy. Cardiopulmonary: Pt denies SOB, heart palpitations, dyspnea on exertion. Abdominal/GI: Pt denies abdominal pain, n/v/d. : Pt denies dysuria, burning w/ urination, frequency/urgency. Denies new onset urinary or bowel incontinence. MSK: Pt denies myalgia, loss of strength or function in extremities. Neuro: Pt denies new onset weakness, paresthesias. (Nelson Tate) - Related Data Home Medications Medication Instructions Recorded Confirmed Fluticasone Nasal [place] [Flonase 1 spray EA NOSTRIL BID PRN 04/20/17 05/29/20 Nasal [place]] Morphine Sulfate ER [Ms Contin] 30 mg PO Q8H 10/10/17 05/29/20 tiZANidine [Zanaflex] 4 mg PO TID PRN 02/26/18 05/29/20 Aspirin EC [Ecotrin Low Dose] 81 mg PO DAILY 01/02/20 05/29/20 Carvedilol [Coreg*] 12.5 mg PO AC-BID 01/02/20 05/29/20 Gabapentin [Neurontin] 300 mg PO TID 01/02/20 05/29/20 oxyCODONE-APAP 10-325MG [Percocet 1 tab PO Q8H PRN 01/02/20 05/29/20 10-325 mg] Previous Rx's Medication Instructions Recorded Atorvastatin [Lipitor] 80 mg PO HS #30 tab 10/12/17 cloNIDine HCL [Catapres] 0.1 mg PO BID #60 tab 02/08/19 Ezetimibe [Zetia] 10 mg PO DAILY #30 tab 05/24/19 amLODIPine [Norvasc] 5 mg PO BID #60 tab 05/24/19 Nitroglycerin Sl Tabs [Nitrostat] 0.4 mg SUBLINGUAL Q5M PRN #20 tab 07/02/19 Dicyclomine [Bentyl] 10 mg PO QID PRN #90 cap 05/30/20 Losartan [Cozaar] 50 mg PO BID #0 tab 05/30/20 Pantoprazole Sodium [Protonix] 40 mg PO DAILY #90 tab 05/30/20 Allergies Allergy/AdvReac Type Severity Reaction Status Date / Time ibuprofen [From Motrin] Allergy Rash/Hives Verified 06/03/20 20:35 ketorolac tromethamine Allergy Rash/Hives Verified 06/03/20 20:35 [From Toradol] Review of Systems ROS Other: All systems not noted in ROS Statement are negative. <Nelson Tate - Last Filed: 05/29/20 19:23> ROS Other: All systems not noted in ROS Statement are negative. <Diann Wagner - Last Filed: 06/04/20 00:36> ROS Statement: Those systems with pertinent positive or pertinent negative responses have been documented in the HPI. Past Medical History Past Medical History: Coronary Artery Disease (CAD), Chest Pain / Angina, COPD, Deep Vein Thrombosis (DVT), GERD/Reflux, Hyperlipidemia, Hypertension, Osteoarthritis (OA), Thyroid Disorder Additional Past Medical History / Comment(s): Occasional palpitations, gastritis, small hiatal hernia, diverticular dx, pt states years ago he had PUD, chronic low back pain, chronic pain syndrome, migraines, DVT L arm, numbness/tingling bilateral lower legs, bilateral past R hand fracture, art hritis multiple joints, hyperthyroid, sinus problems. History of Any Multi-Drug Resistant Organisms: None Reported Past Surgical History: Back Surgery, Cholecystectomy, Heart Catheterization With Stent, Orthopedic Surgery Additional Past Surgical History / Comment(s): EGDs/colonoscopies, multiple low back surgeries, bilateral arm and bilateral thigh surgeries for brown recluse spider bites with infection, morphine pain pump insertion and removal due to infection, PCI with stents, L rotator cuff repair, L knee arthroscopy, cervical fusion/cage, R cataract removal. Past Anesthesia/Blood Transfusion Reactions: No Reported Reaction Additional Past Anesthesia/Blood Transfusion Reaction / Comment(s): Pt states after cervical fusion he "" in the recovery room but does not know cause- he was"gone for 8 minutes" and states he was resusitated. Pt received blood after back surgery and tolerated it well. Date of Last Stent Placement:: 10/12/17 Past Psychological History: No Psychological Hx Reported Smoking Status: Former smoker Past Alcohol Use History: None Reported Past Drug Use History: None Reported - Past Family History Father Family Medical History: No Reported History Additional Family Medical History / Comment(s): Father had back problems. He lived to be 82 yrs old. Mother History Unknown: Yes Family Medical History: Hypertension, Myocardial Infarction ([place]) Additional Family Medical History / Comment(s): Mother of a [place] at the age of 55yrs. Brother(s) Family Medical History: Cancer, COPD Additional Family Medical History / Comment(s): Leukemia <Nelson Tate - Last Filed: 05/29/20 19:23> General Exam Limitations: no limitations <Nelson Tate - Last Filed: 05/29/20 19:23> - General Exam Comments Initial Comments: Constitutional: NAD, AOX3, Pt has pleasant affect. HEENT: NC/AT, trachea midline, neck supple, no lymphadenopathy. Posterior pharynx non erythematous, without exudates. External ears appear normal, without discharge. Mucous membranes moist. Eyes PERRLA, EOM intact. There is no scleral icterus. No pallor noted. Cardiopulmonary: RRR, no murmurs, rubs or gallops, no JVD noted. Lungs CTAB in anterior and posterior mina. +2 peripheral edema. Abdominal exam: Abdomen soft and non-distended. Abdomen non-tender to palpation in all 4 quadrants. Bowel sounds active in LLQ. No hepatosplenomegaly. No ecchymosis Neuro: CN II-XII grossly intact. No nuchal rigidity. No raccon eyes, no gaspar sign, no hemotympanum. No cervical spinal tenderness. MSK: Sensation intact in upper and lower extremities. Full active ROM in upper and lower extremities, 5/5 stregnth. (Nelson Tate) Course Vital Signs 05/29/20 05/29/20 05/29/20 15:13 20:10 20:13 Temperature 98.3 F 98.0 F 98.2 F Pulse Rate 99 78 Pulse Rate [ 77 Left] Respiratory 16 18 16 Rate Blood Pressure 137/88 133/78 Blood Pressure 144/94 [Left Arm] O2 Sat by Pulse 99 98 99 Oximetry Medical Decision Making - Lab Data Result diagrams: 05/29/20 17:01 05/29/20 17:02 - EKG Data -: EKG Interpreted by Me (and Dr. Wagner ) <Nelson Tate - Last Filed: 05/29/20 19:23> - Lab Data Result diagrams: 05/30/20 06:39 05/30/20 06:39 <Diann Wagner - Last Filed: 06/04/20 00:36> - Medical Decision Making 64-year-old male patient was ED for evaluation of leg swelling chest pain. Patient will signs are stable, afebrile. Laboratory investigations reveal a decrease in his hemoglobin from 14.1-10.5. Mild hypokalemia. Troponin negative. EKG is nonischemic. Chest x-ray displayed atelectasis. Ultrasound of lower extremities is negative. Patient does report that he has had some dark red blood in his stool. Patient will be admitted for serial troponin, evaluation of GI bleed. Occult blood is pending. Case discussed with Dr. Wagner. (Nelson Tate) I was available for consultation in the emergency department. The history and physical exam were done by the midlevel provider. I was consulted for this patients care. I reviewed the case with the midlevel provider and based on their presentation of the patient, I agree with the assessment, medical decision making and plan of care as documented. Chart was dictated using [employer] dictation software. Attempts were made to correct any dictation errors however some typographical errors may persist. Patient was seen during a national state of emergency due to the Covid-19 pandemic. (Diann Wagner) - Lab Data Lab Results 05/29/20 05/29/20 05/29/20 Range/Units 17:01 17:01 17:01 WBC 5.5 (3.8-10.6) k/uL RBC 3.67 L (4.30-5.90) m/uL Hgb 10.5 L D (13.0-17.5) gm/dL Hct 33.2 L (39.0-53.0) % MCV 90.5 (80.0-100.0) fL MCH 28.7 (25.0-35.0) pg MCHC 31.7 (31.0-37.0) g/dL RDW 15.2 (11.5-15.5) % Plt Count 312 (150-450) k/uL Neutrophils % 74 % Lymphocytes % 17 % Monocytes % 5 % Eosinophils % 1 % Basophils % 1 % Neutrophils # 4.1 (1.3-7.7) k/uL Lymphocytes # 1.0 (1.0-4.8) k/uL Monocytes # 0.3 (0-1.0) k/uL Eosinophils # 0.1 (0-0.7) k/uL Basophils # 0.0 (0-0.2) k/uL PT (9.0-12.0) sec INR (<1.2) APTT (22.0-30.0) sec Sodium (137-145) mmol/L Potassium (3.5-5.1) mmol/L Chloride (98-107) mmol/L Carbon Dioxide (22-30) mmol/L Anion Gap mmol/L BUN (9-20) mg/dL Creatinine (0.66-1.25) mg/dL Est GFR (CKD-EPI)AfAm (>60 ml/min/1.73 sqM) Est GFR (CKD-EPI)NonAf (>60 ml/min/1.73 sqM) Glucose (74-99) mg/dL Calcium (8.4-10.2) mg/dL Magnesium (1.6-2.3) mg/dL Total Bilirubin (0.2-1.3) mg/dL AST (17-59) U/L ALT (4-49) U/L Alkaline Phosphatase (38-126) U/L Troponin I <0.012 (0.000-0.034) ng/mL NT-Pro-B Natriuret Pep 98 pg/mL Total Protein (6.3-8.2) g/dL Albumin (3.5-5.0) g/dL 05/29/20 05/29/20 05/29/20 Range/Units 17:02 17:02 17:47 WBC (3.8-10.6) k/uL RBC (4.30-5.90) m/uL Hgb (13.0-17.5) gm/dL Hct (39.0-53.0) % MCV (80.0-100.0) fL MCH (25.0-35.0) pg MCHC (31.0-37.0) g/dL RDW (11.5-15.5) % Plt Count (150-450) k/uL Neutrophils % % Lymphocytes % % Monocytes % % Eosinophils % % Basophils % % Neutrophils # (1.3-7.7) k/uL Lymphocytes # (1.0-4.8) k/uL Monocytes # (0-1.0) k/uL Eosinophils # (0-0.7) k/uL Basophils # (0-0.2) k/uL PT 9.5 (9.0-12.0) sec INR 0.9 (<1.2) APTT 24.3 (22.0-30.0) sec Sodium 135 L (137-145) mmol/L Potassium 3.2 L (3.5-5.1) mmol/L Chloride 103 (98-107) mmol/L Carbon Dioxide 27 (22-30) mmol/L Anion Gap 5 mmol/L BUN 7 L (9-20) mg/dL Creatinine 0.52 L (0.66-1.25) mg/dL Est GFR (CKD-EPI)AfAm >90 (>60 ml/min/1.73 sqM) Est GFR (CKD-EPI)NonAf >90 (>60 ml/min/1.73 sqM) Glucose 100 H (74-99) mg/dL Calcium 8.7 (8.4-10.2) mg/dL Magnesium 2.2 (1.6-2.3) mg/dL Total Bilirubin 0.2 (0.2-1.3) mg/dL AST 18 (17-59) U/L ALT 10 (4-49) U/L Alkaline Phosphatase 77 (38-126) U/L Troponin I <0.012 (0.000-0.034) ng/mL NT-Pro-B Natriuret Pep pg/mL Total Protein 5.9 L (6.3-8.2) g/dL Albumin 3.7 (3.5-5.0) g/dL - EKG Data EKG Comments: Ventricular rate 81, DC interval 176, QRS 92, QT/QTC 396 is 460. Normal sinus rhythm, normal EKG, no concern for acute ischemia. (Nelson Tate) Disposition Is patient prescribed a controlled substance at d/c from ED?: No <Nelson Tate - Last Filed: 05/29/20 19:23> <Diann Wagner - Last Filed: 06/04/20 00:36> Clinical Impression: Chest pain Narrative: possible GI Bleed (Nelson Tate) Disposition: ADMITTED IP TO THIS HOSP Condition: Serious
--- NOTE | 2020-05-29 16:24 | XR ---
EXAMINATION TYPE: XR chest 2V DATE OF EXAM: 05/29/2020 COMPARISON: 05/02/2020 HISTORY: 64-year-old male with chest pain TECHNIQUE: PA and lateral views FINDINGS: ACDF hardware the heart is normal size. Aorta within normal limits. Some strandy atelectasis in the l ower lungs. No consolidation or pleural effusion seen. Partially visualized posterior lumbar fusion h ardware. IMPRESSION: Some strandy lower lung atelectasis. No definite acute cardiopulmonary process.
--- NOTE | 2020-05-29 16:47 | US ---
EXAMINATION TYPE: US venous doppler duplex LE BI DATE OF EXAM: 05/29/2020 4:36 PM COMPARISON: NONE CLINICAL HISTORY: LE pain swelling hx DVT . bilateral feet edema SIDE PERFORMED: bilateral TECHNIQUE: The lower extremity deep venous system is examined utilizing real time linear array sonog soren with graded compression, doppler sonography and color-flow sonography. VESSELS IMAGED: External Iliac Vein (EIV) Common Femoral Vein Deep Femoral Vein Greater Saphenous Vein * Femoral Vein Popliteal Vein Small Saphenous Vein * Proximal Calf Veins (* superficial vessels) Right Leg: No evidence of DVT Left Leg: No evidence of DVT IMPRESSION: No evidence of deep vein thrombosis in both legs.
[2020-05-29 17:10] LABS: Basophils % (A) 1 %; Eosinophils # (A) 0.1 k/uL (0-0.7); Eosinophils % (A) 1 %; HCT 33.2 % (39.0-53.0); Lymphocytes % (A) 17 %; MCH 28.7 pg (25.0-35.0); MCHC 31.7 g/dL (31.0-37.0); MCV 90.5 fL (80.0-100.0); Mean Platelet Volume 6.9; Monocytes # (A) 0.3 k/uL (0-1.0); Monocytes % (A) 5 %; Neutrophils # (A) 4.1 k/uL (1.3-7.7); Neutrophils % (A) 74 %; Platelet Count 312 k/uL (150-450); RBC 3.67 m/uL (4.30-5.90); RDW 15.2 % (11.5-15.5); WBC 5.5 k/uL (3.8-10.6)
[2020-05-29 17:20] LABS: ALT 10 U/L (4-49); AST 18 U/L (17-59); African American GFR (CKD) >90 (>60 ml/min/1.73 sqM); Albumin 3.7 g/dL (3.5-5.0); Alkaline Phosphatase 77 U/L (38-126); Anion Gap 5 mmol/L; Blood Urea Nitrogen 7 mg/dL (9-20); Calcium 8.7 mg/dL (8.4-10.2); Carbon Dioxide 27 mmol/L (22-30); Chloride 103 mmol/L (98-107); Glucose 100 mg/dL (74-99); Magnesium 2.2 mg/dL (1.6-2.3); Non-African American GFR(CKD) >90 (>60 ml/min/1.73 sqM); Potassium 3.2 mmol/L (3.5-5.1); Sodium 135 mmol/L (137-145); Total Bilirubin 0.2 mg/dL (0.2-1.3); Total Protein 5.9 g/dL (6.3-8.2)
[2020-05-29 17:24] LABS: INR 0.9 (<1.2); Partial Thromboplastin Time 24.3 sec (22.0-30.0); Prothrombin Time 9.5 sec (9.0-12.0)
[2020-05-29 17:26] LABS: HGB 10.5 gm/dL (13.0-17.5)
[2020-05-29] MEDS ORDERED: MORPHINE SULFATE 4 MG/ML SYRINGE IV STA (18:00)
[2020-05-29] MEDS ORDERED: PANTOPRAZOLE 40 MG/10 ML VIAL IVP STA (19:22)
[2020-05-29] MEDS ORDERED: POTASSIUM CHLORIDE ER 20 MEQ TAB.ER PO STA ×2 (19:22→20:43)
[2020-05-29] MEDS ORDERED: NITROGLYCERIN SL TABS 0.4 MG TAB SUBLINGUAL PRN ×2 (19:24→20:41)
[2020-05-29] MEDS ORDERED: HYDROcodone/APAP 5-325MG 1 EACH TAB PO PRN (19:28)
[2020-05-29] MEDS ORDERED: DICYCLOMINE 10 MG CAP PO PRN (20:41)
[2020-05-29] MEDS ORDERED: tiZANidine 4 MG TAB PO PRN (20:41)
[2020-05-29] MEDS ORDERED: FUROSEMIDE 10 MG/ML 2 ML VIAL IV ONE (20:45)
--- NOTE | 2020-05-29 20:50 | P.HPIM ---
History of Present Illness Patient is a 63-year-old male well-known to me from his multiple previous auscultation with history of coronary artery disease and the stents in the past came in with bilateral lower extremity swelling predominantly in the ankles mo stly nonpitting. Has been going on for 2 weeks patient is on Norvasc. Patient an echocardiogram in the recent past which are showed normal ejection fraction patient doesn't have any JVD. BNP is 98. Patient is also complaining of dark stools with blood in the stools couple episodes yesterday denied any such episodes today. Patient hemoglobin was 14 from his recent hospitalization now around 10. She was complaining of mild epigastric abdominal discomfort as well. Doppler of the lower extremity is within normal limits without any DVT Review of Systems REVIEW OF SYSTEMS: CONSTITUTIONAL: No fever, no malaise, no fatigue. HEENT: No recent visual problems or hearing problems. Denied any sore throat. CARDIOVASCULAR: No chest pain, orthopnea, PND, no palpitations, no syncope. PULMONARY: No shortness of breath, no cough, no hemoptysis. GASTROINTESTINAL: No diarrhea, no nausea, no vomiting, NEUROLOGICAL: No headaches, no weakness, no numbness. HEMATOLOGICAL: Denies any bleeding or petechiae. GENITOURINARY: Denies any burning micturition, frequency, or urgency. MUSCULOSKELETAL/RHEUMATOLOGICAL: Denies any joint pain, swelling, or any muscle pain. ENDOCRINE: Denies any polyuria or polydipsia. The rest of the 14-point review of systems is negative. Past Medical History Past Medical History: Coronary Artery Disease (CAD), Chest Pain / Angina, COPD, Deep Vein Thrombosis (DVT), GERD/Reflux, Hyperlipidemia, Hypertension, Osteoarthritis (OA), Thyroid Disorder Additional Past Medical History / Comment(s): Occasional palpitations, gastritis, small hiatal hernia, diverticular dx, pt states years ago he had PUD, chronic low back pain, chronic pain syndrome, migraines, DVT L arm, numbness/tingling bilateral lower legs, bilateral past R hand fracture, arthritis multiple joints, hyperthyroid, sinus problems. History of Any Multi-Drug Resistant Organisms: None Reported Past Surgical History: Back Surgery, Cholecystectomy, Heart Catheterization With Stent, Orthopedic Surgery Additional Past Surgical History / Comment(s): EGDs/colonoscopies, multiple low back surgeries, bilateral arm and bilateral thigh surgeries for brown recluse spider bites with infection, morphine pain pump insertion and removal due to infection, PCI with stents, L rotator cuff repair, L knee arthroscopy, cervical fusion/cage, R cataract removal. Past Anesthesia/Blood Transfusion Reactions: No Reported Reaction Additional Past Anesthesia/Blood Transfusion Reaction / Comment(s): Pt states after cervical fusion he "" in the recovery room but does not know cause- he was"gone for 8 minutes" and states he was resusitated. Pt received blood after back surgery and tolerated it well. Date of Last Stent Placement:: 10/12/17 Past Psychological History: No Psychological Hx Reported Smoking Status: Former smoker Past Alcohol Use History: None Reported Past Drug Use History: None Reported - Past Family History Father Family Medical History: No Reported History Additional Family Medical History / Comment(s): Father had back problems. He lived to be 82 yrs old. Mother History Unknown: Yes Family Medical History: Hypertension, Myocardial Infarction ([place]) Additional Family Medical History / Comment(s): Mother of a [place] at the age of 55yrs. Brother(s) Family Medical History: Cancer, COPD Additional Family Medical History / Comment(s): Leukemia Medications and Allergies Home Medications Medication Instructions Recorded Confirmed Type Fluticasone Nasal [place] [Flonase 1 spray EA NOSTRIL BID PRN 04/20/17 05/29/20 History Nasal [place]] Morphine Sulfate ER [Ms Contin] 30 mg PO Q8H 10/10/17 05/29/20 History Atorvastatin [Lipitor] 80 mg PO HS #30 tab 10/12/17 05/29/20 Rx tiZANidine [Zanaflex] 4 mg PO TID PRN 02/26/18 05/29/20 History cloNIDine HCL [Catapres] 0.1 mg PO BID #60 tab 02/08/19 05/29/20 Rx Ezetimibe [Zetia] 10 mg PO DAILY #30 tab 05/24/19 05/29/20 Rx amLODIPine [Norvasc] 5 mg PO BID #60 tab 05/24/19 05/29/20 Rx Nitroglycerin Sl Tabs [Nitrostat] 0.4 mg SUBLINGUAL Q5M PRN #20 tab 07/02/19 05/29/20 Rx Aspirin EC [Ecotrin Low Dose] 81 mg PO DAILY 01/02/20 05/29/20 History Carvedilol [Coreg*] 12.5 mg PO AC-BID 01/02/20 05/29/20 History Gabapentin [Neurontin] 300 mg PO TID 01/02/20 05/29/20 History oxyCODONE-APAP 10-325MG [Percocet 1 tab PO Q8H PRN 01/02/20 05/29/20 History 10-325 mg] Dicyclomine [Bentyl] 10 mg PO QID PRN 05/02/20 05/29/20 History Pantoprazole Sodium [Protonix] 40 mg PO DAILY 05/02/20 05/29/20 History Allergies Allergy/AdvReac Type Severity Reaction Status Date / Time ibuprofen [From Motrin] Allergy Rash/Hives Verified 05/29/20 16:22 ketorolac tromethamine Allergy Rash/Hives Verified 05/29/20 16:22 [From Toradol] Physical Exam Vitals: Vital Signs Temp Pulse Resp BP Pulse Ox 05/29/20 20:10 98.0 F 78 18 133/78 98 05/29/20 15:13 98.3 F 99 16 137/88 99 Intake and Output 05/29/20 05/29/20 05/29/20 06:59 14:59 22:59 Other: Weight 79.379 kg PHYSICAL EXAMINATION: GENERAL: The patient is alert and oriented x3, not in any acute distress. Well developed, well nourished. HEENT: Pupils are round and equally reacting to light. EOMI. No scleral icterus. No conjunctival pallor. Normocephalic, atraumatic. No pharyngeal erythema. No thyromegaly. CARDIOVASCULAR: S1 and S2 present. No murmurs, rubs, or gallops. PULMONARY: Chest is clear to auscultation, no wheezing or crackles. ABDOMEN: Soft, very minimal epigastric abdominal tenderness, nondistended, normoactive bowel sounds. No palpable organomegaly. MUSCULOSKELETAL: No joint swelling or deformity. EXTREMITIES: No cyanosis, clubbing, or pedal edema. NEUROLOGICAL: Gross neurological examination did not reveal any focal deficits. SKIN: No rashes. Results CBC & Chem 7: 05/29/20 17:01 05/29/20 17:02 Labs: Abnormal Lab Results - Last 24 Hours (Table) 05/29/20 05/29/20 Range/Units 17:01 17:02 RBC 3.67 L (4.30-5.90) m/uL Hgb 10.5 L D (13.0-17.5) gm/dL Hct 33.2 L (39.0-53.0) % Sodium 135 L (137-145) mmol/L Potassium 3.2 L (3.5-5.1) mmol/L BUN 7 L (9-20) mg/dL Creatinine 0.52 L (0.66-1.25) mg/dL Glucose 100 H (74-99) mg/dL Total Protein 5.9 L (6.3-8.2) g/dL Assessment and Plan Plan: -Bilateral lower extremity predominately ankle edema secondary to Norvasc or vascular be discontinued patient will be resumed on other antidepressant medications and patient will be started on losartan instead. -Possibility of for acute upper GI bleed and acute blood loss anemia from that: Gastric body was consulted patient was started on Protonix and monitor for any more GI bleed -Coronary artery disease -history of DVT in the past -Gases facial reflux disease -Hypertension: Management as mentioned above -Hypothyroidism -Chronic Back pain For above-mentioned chronic medical problems patient will be resumed on the appropriate home medications.
[2020-05-29] MEDS ORDERED: ATORVASTATIN 80 MG TAB PO SCH (21:00)
[2020-05-29] MEDS: cloNIDine HCL 0.1 MG TAB PO SCH (21:19)
[2020-05-29] MEDS: GABAPENTIN 300 MG CAP PO SCH (21:19)
[2020-05-29] MEDS: MORPHINE SULFATE ER 30 MG TABLET PO SCH (21:20)
[2020-05-29] MEDS: PANTOPRAZOLE 40 MG/10 ML VIAL IVP SCH (21:35)
[2020-05-30 05:28] VITALS: PULSE 75
[2020-05-30] MEDS: MORPHINE SULFATE ER 30 MG TABLET PO SCH (05:32)
[2020-05-30 07:02] LABS: Basophils % (A) 1 %; Eosinophils % (A) 1 %; HCT 33.3 % (39.0-53.0); HGB 10.2 gm/dL (13.0-17.5); Hypochromasia Slight; Lymphocytes # (A) 0.8 k/uL (1.0-4.8); Lymphocytes % (A) 27 %; MCH 28.1 pg (25.0-35.0); MCHC 30.6 g/dL (31.0-37.0); MCV 91.9 fL (80.0-100.0); Mean Platelet Volume 6.6; Monocytes # (A) 0.2 k/uL (0-1.0); Monocytes % (A) 6 %; Neutrophils # (A) 1.9 k/uL (1.3-7.7); Neutrophils % (A) 63 %; Platelet Count 287 k/uL (150-450); RBC 3.62 m/uL (4.30-5.90); RDW 15.2 % (11.5-15.5)
[2020-05-30 07:18] LABS: Potassium 3.9 mmol/L (3.5-5.1)
[2020-05-30] MEDS ORDERED: carvediloL 12.5 MG TAB PO SCH (07:30)
[2020-05-30] MEDS: GABAPENTIN 300 MG CAP PO SCH (07:59)
[2020-05-30] MEDS: PANTOPRAZOLE 40 MG/10 ML VIAL IVP SCH (08:05)
[2020-05-30] MEDS: cloNIDine HCL 0.1 MG TAB PO SCH (08:09)
[2020-05-30] MEDS ORDERED: ASPIRIN 81 MG PO SCH (09:00)
[2020-05-30] MEDS ORDERED: LOSARTAN 50 MG TAB PO SCH (09:00)
[2020-05-30] MEDS ORDERED: EZETIMIBE 10 MG TAB PO SCH (09:00)
--- NOTE | 2020-05-30 09:34 | P.CRDCN ---
History of Present Illness History of present illness: HISTORY OF PRESENTING ILLNESS This is a pleasant 64-year-old -Prydeinig male past medical history significant for coronary artery disease status post PCI, gastritis, hypertension and dyslipidemia. He follows in the office with Dr. Go. We have been asked to see in consultation for chest pain. He has undergone PCI of the LAD and diagonal branch, most recent catheterization in April 2019 revealed no evidence of significant progression of disease. He presented to the emergency department with symptoms of black stools and lower extremity edema. He states he was started on oral lasix 1 week on discharge from the hospital. He denies significant shortness of breath. No orthopnea or PND. He had an episode of sharp chest pain yesterday that was brief and not exacerbated by activity or exertion. DIAGNOSTICS EKG reveals sinus mechanism. Chest xray negative for an acute cardiopulmonary process. Laboratory reviewed, WBC 3.0, hemoglobin 10.2, platelets 287, sodium 135, potassium on admission 3.2 after replacement 3.9, creatinine 0.52, magnesium 2.2, cardiac enzymes negative 3, LDL 75 and HDL 47. Current cardiac medications include Plavix 75 mg daily, aspirin 81 mg daily, a torvastatin 80 mg daily, carvedilol 12.5 mg twice a day, that he attend milligrams daily, Lasix 40 mg twice a day, lisinopril 40 mg daily, amlodipine 5 mg twice a day and clonidine 0.1 mg twice a day. Most recent echocardiogram April 2020 reveals preserved LV systolic function with ejection fraction 55-60%, normal diastolic filling pattern, mild TR and mild pulmonary hypertension with an RVSP of 36 mmHg. Most recent stress test performed April 2020 with a dobutamine stress echocardiogram was negative for stress-induced cardiac ischemia. REVIEW OF SYSTEMS At the time of my exam: CONSTITUTIONAL: Denies fever or chills. CARDIOVASCULAR: Denies chest pain, shortness of breath, orthopnea, PND or p alpitations. RESPIRATORY: Denies cough. GASTROINTESTINAL: Complains of abdominal pain and black stools. Denies diarrhea, constipation, nausea or vomiting. MUSCULOSKELETAL: Denies myalgias. NEUROLOGIC: Denies numbness, tingling or weakness. ENDOCRINE: Denies fatigue, weight change, polydipsia or polyurina. GENITOURINARY: Denies burning, hematuria or urgency with micturation. HEMATOLOGIC: Denies history of anemia or bleeding. PHYSICAL EXAMINATION Blood pressure 124/73 heart rate 75 afebrile maintaining oxygen saturation on room air CONSTITUTIONAL: No apparent distress. HEENT: Head is normocephalic. Pupils are equal, round. Sclerae anicteric. Mucous membranes of the mouth are moist. No JVD. No carotid bruit. CHEST EXAMINATION: Lungs are clear to auscultation. No chest wall tenderness is noted on palpation or with deep breathing. HEART EXAMINATION: Regular rate and rhythm. S1, S2 heard. No murmurs, gallops or rub. ABDOMEN: Soft, nontender. Positive bowel sounds. EXTREMITIES: 2+ peripheral pulses, bilateraly lower extremity edema around the ankle non-pitting and no calf tenderness. NEUROLOGIC EXAMINATION: Patient is awake, alert and oriented x3. ASSESSMENT Chest pain. Atypical for angina. An acute coronary event has been ruled out. Coronary artery disease status post PCI of the LAD and diagonal branch in 2017. Abdominal pain and dark stools. Focal blood was negative. Hypertension Dyslipidemia Chronic pain Noncompliance PLAN An acute coronary event has been ruled out. Apply JOHNNY hose bilaterally. Swelling not related to heart failure, could be from the heat. Recommend elevating while sitting. Follow up with Dr. Go in the office upon discharge. Thank you kindly for this consultation. Nurse Practitioner note has been reviewed, I agree with a documented findings and plan of care. Patient was seen and examined. Past Medical History Past Medical History: Coronary Artery Disease (CAD), Chest Pain / Angina, COPD, Deep Vein Thrombosis (DVT), GERD/Reflux, Hyperlipidemia, Hypertension, Osteoarthritis (OA), Thyroid Disorder Additional Past Medical History / Comment(s): Occasional palpitations, ga stritis, small hiatal hernia, diverticular dx, pt states years ago he had PUD, chronic low back pain, chronic pain syndrome, migraines, DVT L arm, numbness/tingling bilateral lower legs, bilateral past R hand fracture, arthritis multiple joints, hyperthyroid, sinus problems. History of Any Multi-Drug Resistant Organisms: None Reported Past Surgical History: Back Surgery, Cholecystectomy, Heart Catheterization With Stent, Orthopedic Surgery Additional Past Surgical History / Comment(s): EGDs/colonoscopies, multiple low back surgeries, bilateral arm and bilateral thigh surgeries for brown recluse spider bites with infection, morphine pain pump insertion and removal due to infection, PCI with stents, L rotator cuff repair, L knee arthroscopy, cervical fusion/cage, R cataract removal. Past Anesthesia/Blood Transfusion Reactions: No Reported Reaction Additional Past Anesthesia/Blood Transfusion Reaction / Comment(s): Pt states after cervical fusion he "" in the recovery room but does not know cause- he was"gone for 8 minutes" and states he was resusitated. Pt received blood after back surgery and tolerated it well. Date of Last Stent Placement:: 10/12/17 Past Psychological History: No Psychological Hx Reported Smoking Status: Former smoker Past Alcohol Use History: None Reported Past Drug Use History: None Reported - Past Family History Father Family Medical History: No Reported History Additional Family Medical History / Comment(s): Father had back problems. He lived to be 82 yrs old. Mother History Unknown: Yes Family Medical History: Hypertension, Myocardial Infarction ([place]) Additional Family Medical History / Comment(s): Mother of a [place] at the age of 55yrs. Brother(s) Family Medical History: Cancer, COPD Additional Family Medical History / Comment(s): Leukemia Medications and Allergies Home Medications Medication Instructions Recorded Confirmed Type Fluticasone Nasal [place] [Flonase 1 spray EA NOSTRIL BID PRN 04/20/17 05/29/20 History Nasal [place]] Morphine Sulfate ER [Ms Contin] 30 mg PO Q8H 10/10/17 05/29/20 History Atorvastatin [Lipitor] 80 mg PO HS #30 tab 10/12/17 05/29/20 Rx tiZANidine [Zanaflex] 4 mg PO TID PRN 02/26/18 05/29/20 History cloNIDine HCL [Catapres] 0.1 mg PO BID #60 tab 02/08/19 05/29/20 Rx Ezetimibe [Zetia] 10 mg PO DAILY #30 tab 05/24/19 05/29/20 Rx amLODIPine [Norvasc] 5 mg PO BID #60 tab 05/24/19 05/29/20 Rx Nitroglycerin Sl Tabs [Nitrostat] 0.4 mg SUBLINGUAL Q5M PRN #20 tab 07/02/19 05/29/20 Rx Aspirin EC [Ecotrin Low Dose] 81 mg PO DAILY 01/02/20 05/29/20 History Carvedilol [Coreg*] 12.5 mg PO AC-BID 01/02/20 05/29/20 History Gabapentin [Neurontin] 300 mg PO TID 01/02/20 05/29/20 History oxyCODONE-APAP 10-325MG [Percocet 1 tab PO Q8H PRN 01/02/20 05/29/20 History 10-325 mg] Dicyclomine [Bentyl] 10 mg PO QID PRN #90 cap 05/30/20 Rx Pantoprazole Sodium [Protonix] 40 mg PO DAILY #90 tab 05/30/20 Rx Allergies Allergy/AdvReac Type Severity Reaction Status Date / Time ibuprofen [From Motrin] Allergy Rash/Hives Verified 05/29/20 16:22 ketorolac tromethamine Allergy Rash/Hives Verified 05/29/20 16:22 [From Toradol] Physical Exam Vitals: Vital Signs Temp Pulse Pulse Resp BP BP Pulse Ox 05/30/20 07:58 98.1 F 75 12 124/73 96 05/30/20 04:25 97.9 F 75 16 150/80 98 05/29/20 23:58 98.0 F 85 16 116/64 97 05/29/20 20:13 98.2 F 77 16 144/94 99 05/29/20 20:10 98.0 F 78 18 133/78 98 05/29/20 15:13 98.3 F 99 16 137/88 99 Intake and Output 05/29/20 05/30/20 05/30/20 22:59 06:59 14:59 Intake Total 300 Output Total 3 Balance 300 -3 Intake: Oral 300 Output: Urine 3 Other: Voiding Method Toilet Toilet Weight 79.379 kg Results 05/30/20 06:39 05/30/20 06:39 Cardiac Enzymes 05/29/20 05/29/20 05/29/20 Range/Units 17:01 17:02 17:47 AST 18 (17-59) U/L Troponin I <0.012 <0.012 (0.000-0.034) ng/mL 05/29/20 Range/Units 22:36 AST (17-59) U/L Troponin I <0.012 (0.000-0.034) ng/mL Coagulation 05/29/20 Range/Units 17:02 PT 9.5 (9.0-12.0) sec APTT 24.3 (22.0-30.0) sec Lipids 05/30/20 Range/Units 06:39 Triglycerides 138 (<150) mg/dL Cholesterol 150 (<200) mg/dL HDL Cholesterol 47 (40-60) mg/dL CBC 05/29/20 05/30/20 Range/Units 17:01 06:39 WBC 5.5 3.0 L (3.8-10.6) k/uL RBC 3.67 L 3.62 L (4.30-5.90) m/uL Hgb 10.5 L D 10.2 L (13.0-17.5) gm/dL Hct 33.2 L 33.3 L (39.0-53.0) % Plt Count 312 287 (150-450) k/uL Comprehensive Metabolic Panel 05/29/20 05/30/20 Range/Units 17:02 06:39 Sodium 135 L (137-145) mmol/L Potassium 3.2 L 3.9 (3.5-5.1) mmol/L Chloride 103 (98-107) mmol/L Carbon Dioxide 27 (22-30) mmol/L BUN 7 L (9-20) mg/dL Creatinine 0.52 L (0.66-1.25) mg/dL Glucose 100 H (74-99) mg/dL Calcium 8.7 (8.4-10.2) mg/dL AST 18 (17-59) U/L ALT 10 (4-49) U/L Alkaline Phosphatase 77 (38-126) U/L Total Protein 5.9 L (6.3-8.2) g/dL Albumin 3.7 (3.5-5.0) g/dL Current Medications Generic Name Dose Route Start Last Admin Trade Name Charanq PRN Reason Stop Dose Admin Aspirin 81 mg 05/30/20 09:00 05/30/20 08:09 Aspirin PO 81 mg DAILY YESICA Administration Atorvastatin Calcium 80 mg 05/29/20 21:00 05/29/20 21:19 Lipitor PO 80 mg HS YESICA Administration Carvedilol 12.5 mg 05/30/20 07:30 05/30/20 08:09 Coreg PO 12.5 mg AC-BID YESICA Administration Clonidine 0.1 mg 05/29/20 21:00 05/30/20 08:09 Catapres PO 0.1 mg BID YESICA Administration Dicyclomine HCl 10 mg 05/29/20 20:41 Bentyl PO QID PRN IBS Ezetimibe 10 mg 05/30/20 09:00 05/30/20 08:10 Zetia PO 10 mg DAILY YESICA Administration Gabapentin 300 mg 05/29/20 22:00 05/30/20 07:59 Neurontin PO Not Given TID YESICA Losartan Potassium 50 mg 05/30/20 09:00 05/30/20 08:09 Cozaar PO 50 mg DAILY YESICA Administration Morphine Sulfate 30 mg 05/29/20 22:00 05/30/20 05:32 Ms Contin PO 30 mg Q8H [facility] Administration Nitroglycerin 0.4 mg 05/29/20 20:41 Nitrostat SUBLINGUAL Q5M PRN Chest Pain Pantoprazole Sodium 40 mg 05/29/20 21:00 05/30/20 08:05 Protonix IVP 40 mg BID YESICA Administration Tizanidine HCl 4 mg 05/29/20 20:41 Zanaflex PO TID PRN Muscle Spasm Intake and Output 05/29/20 05/30/20 05/30/20 22:59 06:59 14:59 Intake Total 300 Output Total 3 Balance 300 -3 Intake: Oral 300 Output: Urine 3 Other: Voiding Method Toilet Toilet Weight 79.379 kg 05/30/20 06:39 05/30/20 06:39
--- NOTE | 2020-05-30 15:04 | P.DS ---
Providers Date of admission: 05/29/20 19:23 Attending physician: Joselito Ng Consults: 05/29/20 19:24 Consult Physician Stat Consulting Provider: Salomon Rutherford Consult Reason/Comments: possible GI bleed Do you want consulting provider notified?: Yes 05/29/20 19:26 Consult Physician Urgent Consulting Provider: Klaus Felipe Consult Reason/Comments: chest pain Do you want consulting provider notified?: Yes Primary care physician: Stated None Hospital Course: 63-year-old male well-known to me from his multiple previous auscultation with history of coronary artery disease and the stents in the past came in with bilateral lower extremity swelling predominantly in the ankles mostly nonpitting. Has been going on for 2 weeks patient is on Norvasc. Patient an echocardiogram in the recent past which are showed normal ejection fraction patient doesn't have any JVD. BNP is 98. Patient is also complaining of dark stools with blood in the stools couple episodes yesterday denied any such episodes today. Patient hemoglobin was 14 from his recent hospitalization now around 10. She was complaining of mild epigastric abdominal discomfort as well. Doppler of the lower extremity is within normal limits without any DVT. 05/30/2020 Patient was evaluated by gastroenterology and patient had multiple endoscopies recently because of which they're not recommending any more endoscopies and patient doesn't have any evidence of GI bleed since last night. Patient was given prescription for Protonix , Bentyl, losartan and amlodipine was discontinued patient was asked to wear compression socks for his ankle edema which is again secondary to calcium channel jerald. PHYSICAL EXAMINATION: GENERAL: The patient is alert and oriented x3, not in any acute distress. Well developed, well nourished. HEENT: Pupils are round and equally reacting to light. EOMI. No scleral icterus. No conjunctival pallor. Normocephalic, atraumatic. No pharyngeal erythema. No thyromegaly. CARDIOVASCULAR: S1 and S2 present. No murmurs, rubs, or gallops. PULMONARY: Chest is clear to auscultation, no wheezing or crackles. ABDOMEN: Soft, nontender, nondistended, normoactive bowel sounds. No palpable or ganomegaly. MUSCULOSKELETAL: No joint swelling or deformity. EXTREMITIES: No cyanosis, clubbing, or pedal edema. NEUROLOGICAL: Gross neurological examination did not reveal any focal deficits. SKIN: No rashes. for rest of the medical problems hospitalization courseplease refer to my H&P from yesterday Patient Condition at Discharge: Serious Plan - Discharge Summary Discharge Rx Participant: No New Discharge Prescriptions: New Losartan [Cozaar] 50 mg PO BID #0 tab Continue Dicyclomine [Bentyl] 10 mg PO QID PRN #90 cap PRN Reason: IBS Pantoprazole Sodium [Protonix] 40 mg PO DAILY #90 tab No Action Fluticasone Nasal [place] [Flonase Nasal [place]] 1 spray EA NOSTRIL BID PRN PRN Reason: Allergy Symptoms Morphine Sulfate ER [Ms Contin] 30 mg PO Q8H Atorvastatin [Lipitor] 80 mg PO HS #30 tab tiZANidine [Zanaflex] 4 mg PO TID PRN PRN Reason: Muscle Spasm cloNIDine HCL [Catapres] 0.1 mg PO BID #60 tab amLODIPine [Norvasc] 5 mg PO BID #60 tab Ezetimibe [Zetia] 10 mg PO DAILY #30 tab Nitroglycerin Sl Tabs [Nitrostat] 0.4 mg SUBLINGUAL Q5M PRN #20 tab PRN Reason: Chest Pain Gabapentin [Neurontin] 300 mg PO TID oxyCODONE-APAP 10-325MG [Percocet 10-325 mg] 1 tab PO Q8H PRN PRN Reason: Pain Aspirin EC [Ecotrin Low Dose] 81 mg PO DAILY Carvedilol [Coreg*] 12.5 mg PO AC-BID Discharge Medication List Fluticasone Nasal [place] [Flonase Nasal [place]] 1 spray EA NOSTRIL BID PRN 04/20/17 [History] Morphine Sulfate ER [Ms Contin] 30 mg PO Q8H 10/10/17 [History] Atorvastatin [Lipitor] 80 mg PO HS #30 tab 10/12/17 [Rx] tiZANidine [Zanaflex] 4 mg PO TID PRN 02/26/18 [History] cloNIDine HCL [Catapres] 0.1 mg PO BID #60 tab 02/08/19 [Rx] Ezetimibe [Zetia] 10 mg PO DAILY #30 tab 05/24/19 [Rx] amLODIPine [Norvasc] 5 mg PO BID #60 tab 05/24/19 [Rx] Nitroglycerin Sl Tabs [Nitrostat] 0.4 mg SUBLINGUAL Q5M PRN #20 tab 07/02/19 [Rx] Aspirin EC [Ecotrin Low Dose] 81 mg PO DAILY 01/02/20 [History] Carvedilol [Coreg*] 12.5 mg PO AC-BID 01/02/20 [History] Gabapentin [Neurontin] 300 mg PO TID 01/02/20 [History] oxyCODONE-APAP 10-325MG [Percocet 10-325 mg] 1 tab PO Q8H PRN 01/02/20 [History] Dicyclomine [Bentyl] 10 mg PO QID PRN #90 cap 05/30/20 [Rx] Losartan [Cozaar] 50 mg PO BID #0 tab 05/30/20 [Rx] Pantoprazole Sodium [Protonix] 40 mg PO DAILY #90 tab 05/30/20 [Rx] Follow up Appointment(s)/Referral(s): Fannie Go MD [STAFF PHYSICIAN] - 2 Weeks None,Stated [Primary Care Provider] - 1-2 days Patient Instructions/Handouts: Chest Pain (DC) Discharge Disposition: HOME SELF-CARE
[2020-06-01 08:53] VITALS: BP 124/73; RESP 12; TEMP 98.1
== END 2020-05-30 12:53 | disposition home or self-care (01) ==
LOC: EC 15:11 → 1SOBS 19:23
PROVIDERS: ADMIT Hospitalist; ATTEND Hospitalist
DX: M79.89 Other specified soft tissue disorders (principal); R07.9 Chest pain, unspecified; R60.0 Localized edema; R10.13 Epigastric pain; K57.91 Diverticulosis of intestine, part unspecified, without perforation or abscess with bleeding; E87.6 Hypokalemia; J98.11 Atelectasis; I25.10 Atherosclerotic heart disease of native coronary artery without angina pectoris; K21.9 Gastro-esophageal reflux disease without esophagitis; I10 Essential (primary) hypertension; E03.9 Hypothyroidism, unspecified; M54.5 Low back pain; G89.4 Chronic pain syndrome; I07.1 Rheumatic tricuspid insufficiency; I27.20 Pulmonary hypertension, unspecified; J44.9 Chronic obstructive pulmonary disease, unspecified; E78.5 Hyperlipidemia, unspecified; M19.90 Unspecified osteoarthritis, unspecified site; K44.9 Diaphragmatic hernia without obstruction or gangrene; K57.90 Diverticulosis of intestine, part unspecified, without perforation or abscess without bleeding; G43.909 Migraine, unspecified, not intractable, without status migrainosus; E05.90 Thyrotoxicosis, unspecified without thyrotoxic crisis or storm; Z91.19 Patient's noncompliance with other medical treatment and regimen; Z03.818 Encounter for observation for suspected exposure to other biological agents ruled out; Z98.890 Other specified postprocedural states; Z95.5 Presence of coronary angioplasty implant and graft; Z79.899 Other long term (current) drug therapy; Z79.891 Long term (current) use of opiate analgesic; Z79.82 Long term (current) use of aspirin; Z88.6 Allergy status to analgesic agent; Z86.718 Personal history of other venous thrombosis and embolism; Z87.19 Personal history of other diseases of the digestive system; Z87.11 Personal history of peptic ulcer disease; Z87.81 Personal history of (healed) traumatic fracture; Z87.09 Personal history of other diseases of the respiratory system; Z90.49 Acquired absence of other specified parts of digestive tract; Z87.828 Personal history of other (healed) physical injury and trauma; Z86.19 Personal history of other infectious and parasitic diseases; Z87.39 Personal history of other diseases of the musculoskeletal system and connective tissue; Z98.1 Arthrodesis status; Z98.41 Cataract extraction status, right eye; Z91.89 Other specified personal risk factors, not elsewhere classified; Z87.891 Personal history of nicotine dependence; Z82.49 Family history of ischemic heart disease and other diseases of the circulatory system; Z80.6 Family history of leukemia; Z82.5 Family history of asthma and other chronic lower respiratory diseases
CPT/HCPCS: 93005 ×2; 96375 ×2; 96376; 96374; 99285; 36415; 83880; 80061; 80053; 83735; 84132; 84484; 85025 ×2; 85610; 85730; 82272; 71046; 93970; G0378 ×2; U0003; J2270; J1940; C9113 ×2

== ENCOUNTER 2020-06-03 20:27 | Emergency (ER) | payer MEDICARE ==
[2020-06-03 20:35] VITALS: RESP 18; TEMP 98.8
[2020-06-03] MEDS ORDERED: HYDROmorphone 1 MG/ML 1 ML SYRINGE IM STA (20:47)
--- NOTE | 2020-06-03 20:47 | ED ---
Chest Pain HPI - General Chief Complaint: Chest Pain Stated Complaint: chest pain Time Seen by Provider: 06/03/20 20:37 Source: patient, EMS, RN notes reviewed, old records reviewed Mode of arrival: EMS Limitations: no limitations - History of Present Illness Initial Comments: This is a 64-year-old male DF for evaluation patient Dese for evaluation of c hest pain. Patient has no history of chest pain as well as emergency department ER visit including overnight stay for chest pain this month and earlier visit for or abdominal pain type symptoms prior to that. Patient states he just watching football prior to arrival and I wrote developed some chest pain. No nausea vomiting or shortness of breath or fevers, no sweating. No other trauma or any other injuries MD Complaint: chest pain, other (Patient states chest pain is like his normal chest pain to left side) -: days(s) Pain Location: substernal, left chest Pain Radiation: LUE Severity scale (1-10): 7 Quality: sharp Consistency: intermittent Improves With: nothing Worsens With: nothing Anginal Symptoms: other (None) Other Symptoms: other (None) Treatments Prior to Arrival: other (None) - Related Data Home Medications Medication Instructions Recorded Confirmed Fluticasone Nasal [place] [Flonase 1 spray EA NOSTRIL BID PRN 04/20/17 05/29/20 Nasal [place]] Morphine Sulfate ER [Ms Contin] 30 mg PO Q8H 10/10/17 05/29/20 tiZANidine [Zanaflex] 4 mg PO TID PRN 02/26/18 05/29/20 Aspirin EC [Ecotrin Low Dose] 81 mg PO DAILY 01/02/20 05/29/20 Carvedilol [Coreg*] 12.5 mg PO AC-BID 01/02/20 05/29/20 Gabapentin [Neurontin] 300 mg PO TID 01/02/20 05/29/20 oxyCODONE-APAP 10-325MG [Percocet 1 tab PO Q8H PRN 01/02/20 05/29/20 10-325 mg] Previous Rx's Medication Instructions Recorded Atorvastatin [Lipitor] 80 mg PO HS #30 tab 10/12/17 cloNIDine HCL [Catapres] 0.1 mg PO BID #60 tab 02/08/19 Ezetimibe [Zetia] 10 mg PO DAILY #30 tab 05/24/19 amLODIPine [Norvasc] 5 mg PO BID #60 tab 05/24/19 Nitroglycerin Sl Tabs [Nitrostat] 0.4 mg SUBLINGUAL Q5M PRN #20 tab 07/02/19 Dicyclomine [Bentyl] 10 mg PO QID PRN #90 cap 05/30/20 Losartan [Cozaar] 50 mg PO BID #0 tab 05/30/20 Pantoprazole Sodium [Protonix] 40 mg PO DAILY #90 tab 05/30/20 Allergies Allergy/AdvReac Type Severity Reaction Status Date / Time ibuprofen [From Motrin] Allergy Rash/Hives Verified 06/03/20 20:35 ketorolac tromethamine Allergy Rash/Hives Verified 06/03/20 20:35 [From Toradol] Review of Systems ROS Statement: Those systems with pertinent positive or pertinent negative responses have been documented in the HPI. ROS Other: All systems not noted in ROS Statement are negative. EKG Findings - EKG Comments: EKG Findings:: EKG shows sinus a rate of 79. CA 170 QRS 84 QTC 424 Past Medical History Past Medical History: Coronary Artery Disease (CAD), Chest Pain / Angina, COPD, Deep Vein Thrombosis (DVT), GERD/Reflux, Hyperlipidemia, Hypertension, Osteoarthritis (OA), Thyroid Disorder Additional Past Medical History / Comment(s): Occasional palpitations, gastritis, small hiatal hernia, diverticular dx, pt states years ago he had PUD, chronic low back pain, chronic pain syndrome, migraines, DVT L arm, numbness/tingling bilateral lower legs, bilateral past R hand fracture, arthritis multiple joints, hyperthyroid, sinus problems. History of Any Multi-Drug Resistant Organisms: None Reported Past Surgical History: Back Surgery, Cholecystectomy, Heart Catheterization With Stent, Orthopedic Surgery Additional Past Surgical History / Comment(s): EGDs/colonoscopies, multiple low back surgeries, bilateral arm and bilateral thigh surgeries for brown recluse spider bites with infection, morphine pain pump insertion and removal due to infection, PCI with stents, L rotator cuff repair, L knee arthroscopy, cervical fusion/cage, R cataract removal. Past Anesthesia/Blood Transfusion Reactions: No Reported Reaction Additional Past Anesthesia/Blood Transfusion Reaction / Comment(s): Pt states after cervical fusion he "" in the recovery room but does not know cause- he was"gone for 8 minutes" and states he was resusitated. Pt received blood after back surgery and tolerated it well. Date of Last Stent Placement:: 10/12/17 Past Psychological History: No Psychological Hx Reported Smoking Status: Former smoker Past Alcohol Use History: None Reported Past Drug Use History: None Reported - Past Family History Father Family Medical History: No Reported History Additional Family Medical History / Comment(s): Father had back problems. He lived to be 82 yrs old. Mother History Unknown: Yes Family Medical History: Hypertension, Myocardial Infarction ([place]) Additional Family Medical History / Comment(s): Mother of a [place] at the age of 55yrs. Brother(s) Family Medical History: Cancer, COPD Additional Family Medical History / Comment(s): Leukemia General Exam Limitations: no limitations General appearance: alert, in no apparent distress Head exam: Present: atraumatic, normocephalic, normal inspection Eye exam: Present: normal appearance, PERRL, EOMI. Absent: scleral icterus, conjunctival injection, periorbital swelling ENT exam: Present: normal exam, mucous membranes moist Neck exam: Present: normal inspection. Absent: tenderness, meningismus, lymphadenopathy Respiratory exam: Present: normal lung sounds bilaterally. Absent: respiratory distress, wheezes, rales, rhonchi, stridor Cardiovascular Exam: Present: regular rate, normal rhythm, normal heart sounds. Absent: systolic murmur, diastolic murmur, rubs, gallop, clicks GI/Abdominal exam: Present: soft, normal bowel sounds. Absent: distended, tenderness, guarding, rebound, rigid Extremities exam: Present: normal inspection, full ROM, normal capillary refill. Absent: tenderness, pedal edema, joint swelling, calf tenderness Back exam: Present: normal inspection Neurological exam: Present: alert, oriented X3, CN II-XII intact Psychiatric exam: Present: normal affect, normal mood Skin exam: Present: warm, dry, intact, normal color. Absent: rash Course Vital Signs 06/03/20 20:31 Temperature 98.8 F Pulse Rate 80 Respiratory 18 Rate Blood Pressure 160/97 O2 Sat by Pulse 98 Oximetry - Reevaluation(s) Reevaluation #1: 06/03/20 21:21 Medical records reviewed including prior hospitalizations, most recent heart cath Reevaluation #2: 06/03/20 21:21 Patient no distress feeling better pain management here in the ER Reevaluation #3: 06/03/20 21:21 Spoke with patient at length decision made to follow-up with an outpatient cardiology return to ER if symptoms worsen he is agreeable Chest Pain MDM - MDM 61 female DF for evaluation chest pain. Patient will be discharged home to return if symptoms persist Disposition Clinical Impression: Atypical chest pain, Chest pain Disposition: HOME SELF-CARE Condition: Fair Instructions (If sedation given, give patient instructions): Chest Pain (ED) Is patient prescribed a controlled substance at d/c from ED?: No Referrals: None,Stated [Primary Care Provider] - 1-2 days
--- NOTE | 2020-06-03 21:09 | XR ---
EXAMINATION TYPE: XR chest 2V DATE OF EXAM: 06/03/2020 COMPARISON: 05/29/2020 HISTORY: Chest pain TECHNIQUE: FINDINGS: There is no heart failure nor confluent pneumonic infiltrate. Costophrenic angles are clear . There are chest leads. There are no hilar masses. Bony thorax is intact. IMPRESSION: No active cardiopulmonary disease. Normal heart. No change.
[2020-06-03] MEDS ORDERED: Acetaminophen-Codeine 300-30mg TAB PO STA (21:17)
[2020-06-03] MEDS ORDERED: ACET/COD 300 MG/30 MG STARTER PACK 6 TAB BTL PO STA (21:17)
[2020-06-03 21:45] VITALS: PULSE 74
[2020-06-03 22:06] VITALS: BP 150/88
== END 2020-06-03 22:21 | disposition home or self-care (01) ==
LOC: EC 20:27
DX: R07.89 Other chest pain (principal); J44.9 Chronic obstructive pulmonary disease, unspecified; I25.119 Atherosclerotic heart disease of native coronary artery with unspecified angina pectoris; M19.90 Unspecified osteoarthritis, unspecified site; Z79.899 Other long term (current) drug therapy; Z88.6 Allergy status to analgesic agent; Z86.718 Personal history of other venous thrombosis and embolism; Z87.891 Personal history of nicotine dependence; Z95.5 Presence of coronary angioplasty implant and graft; Z98.41 Cataract extraction status, right eye
CPT/HCPCS: 93005; 71046; 99285; 96372; J1170

== ENCOUNTER 2020-06-18 11:07 | Emergency (ER) | payer MEDICARE ==
[2020-06-18 11:16] VITALS: BP 141/97; PULSE 82; RESP 18; TEMP 97.5
[2020-06-18] MEDS ORDERED: ONDANSETRON 4 MG/2 ML VIAL IM STA (11:33)
[2020-06-18] MEDS ORDERED: HYDROmorphone 1 MG/ML 1 ML SYRINGE IM STA (11:33)
--- NOTE | 2020-06-18 11:35 | ED ---
Headache HPI - General Source: patient, RN notes reviewed Mode of arrival: ambulatory Limitations: no limitations <Shahbaz Mcdaniel - Last Filed: 06/18/20 11:41> <Diann Wagner - Last Filed: 06/19/20 15:53> - General Chief Complaint: Headache Stated Complaint: migraine Time Seen by Provider: 06/18/20 11:18 - History of Present Illness Initial Comments: 64-year-old male present emergency Department chief complaint migraine headache. Patient has chronic pain issues, migraine issues. Patient states his started earlier this morning. He's been nauseated and unable take his medications. Denies any visual changes states it's a frontal type headache which is his normal migraine headache. Patient denies any neck pain, fever, chills, chest pain or shortness of breath. Patient offers no other complaints. (Shahbaz Mcdaniel) - Related Data Home Medications Medication Instructions Recorded Confirmed Fluticasone Nasal [place] [Flonase 1 spray EA NOSTRIL BID PRN 04/20/17 05/29/20 Nasal [place]] Morphine Sulfate ER [Ms Contin] 30 mg PO Q8H 10/10/17 05/29/20 tiZANidine [Zanaflex] 4 mg PO TID PRN 02/26/18 05/29/20 Aspirin EC [Ecotrin Low Dose] 81 mg PO DAILY 01/02/20 05/29/20 Gabapentin [Neurontin] 300 mg PO TID 01/02/20 05/29/20 carvediloL [Coreg*] 12.5 mg PO AC-BID 01/02/20 05/29/20 oxyCODONE-APAP 10-325MG [Percocet 1 tab PO Q8H PRN 01/02/20 05/29/20 10-325 mg] Previous Rx's Medication Instructions Recorded Atorvastatin [Lipitor] 80 mg PO HS #30 tab 10/12/17 cloNIDine HCL [Catapres] 0.1 mg PO BID #60 tab 02/08/19 Ezetimibe [Zetia] 10 mg PO DAILY #30 tab 05/24/19 amLODIPine [Norvasc] 5 mg PO BID #60 tab 05/24/19 Nitroglycerin Sl Tabs [Nitrostat] 0.4 mg SUBLINGUAL Q5M PRN #20 tab 07/02/19 Dicyclomine [Bentyl] 10 mg PO QID PRN #90 cap 05/30/20 Losartan [Cozaar] 50 mg PO BID #0 tab 05/30/20 Pantoprazole Sodium [Protonix] 40 mg PO DAILY #90 tab 05/30/20 Allergies Allergy/AdvReac Type Severity Reaction Status Date / Time ibuprofen [From Motrin] Allergy Rash/Hives Verified 06/18/20 11:16 ketorolac tromethamine Allergy Rash/Hives Verified 06/18/20 11:16 [From Toradol] Review of Systems ROS Other: All systems not noted in ROS Statement are negative. <Shahbaz Mcdaniel - Last Filed: 06/18/20 11:41> ROS Other: All systems not noted in ROS Statement are negative. <Diann Wagner - Last Filed: 06/19/20 15:53> ROS Statement: Those systems with pertinent positive or pertinent negative responses have been documented in the HPI. Past Medical History Past Medical History: Coronary Artery Disease (CAD), Chest Pain / Angina, COPD, Deep Vein Thrombosis (DVT), GERD/Reflux, Hyperlipidemia, Hypertension, Osteoarthritis (OA), Thyroid Disorder Additional Past Medical History / Comment(s): Occasional palpitations, gastritis, small hiatal hernia, diverticular dx, pt states years ago he had PUD, chronic low back pain, chronic pain syndrome, migraines, DVT L arm, numbness/tingling bilateral lower legs, bilateral past R hand fracture, arthritis multiple joints, hyperthyroid, sinus problems. History of Any Multi-Drug Resistant Organisms: None Reported Past Surgical History: Back Surgery, Cholecystectomy, Heart Catheterization With Stent, Orthopedic Surgery Additional Past Surgical History / Comment(s): EGDs/colonoscopies, multiple low back surgeries, bilateral arm and bilateral thigh surgeries for brown recluse spider bites with infection, morphine pain pump insertion and removal due to infection, PCI with stents, L rotator cuff repair, L knee arthroscopy, cervical fusion/cage, R cataract removal. Past Anesthesia/Blood Transfusion Reactions: No Reported Reaction Additional Past Anesthesia/Blood Transfusion Reaction / Comment(s): Pt states after cervical fusion he "" in the recovery room but does not know cause- he was"gone for 8 minutes" and states he was resusitated. Pt received blood after back surgery and tolerated it well. Date of Last Stent Placement:: 10/12/17 Past Psychological History: No Psychological Hx Reported Past Alcohol Use History: None Reported Past Drug Use History: None Reported - Past Family History Father Family Medical History: No Reported History Additional Family Medical History / Comment(s): Father had back problems. He lived to be 82 yrs old. Mother History Unknown: Yes Family Medical History: Hypertension, Myocardial Infarction ([place]) Additional Family Medical History / Comment(s): Mother of a DE at the age of 55yrs. Brother(s) Family Medical History: Cancer, COPD Additional Family Medical History / Comment(s): Leukemia <Shahbaz Mcdaniel - Last Filed: 06/18/20 11:41> General Exam Limitations: no limitations General appearance: alert, in no apparent distress Head exam: Present: atraumatic, normocephalic, normal inspection Eye exam: Present: normal appearance, PERRL, EOMI. Absent: scleral icterus, conjunctival injection, periorbital swelling ENT exam: Present: normal exam, normal oropharynx, mucous membranes moist Neck exam: Present: normal inspection, full ROM. Absent: tenderness, meningismus, lymphadenopathy Respiratory exam: Present: normal lung sounds bilaterally. Absent: respiratory distress, wheezes, rales, rhonchi, stridor Cardiovascular Exam: Present: regular rate, normal rhythm, normal heart sounds. Absent: systolic murmur, diastolic murmur, rubs, gallop, clicks Neurological exam: Present: alert, oriented X3, CN II-XII intact, reflexes normal, other (Finger to nose intact bilaterally without over shooting.). Absent: motor sensory deficit <Shahbaz Mcdaniel - Last Filed: 06/18/20 11:41> Course Vital Signs 06/18/20 11:11 Temperature 97.5 F L Pulse Rate 82 Respiratory 18 Rate Blood Pressure 141/97 O2 Sat by Pulse 100 Oximetry Medical Decision Making <Shahbaz Mcdaniel - Last Filed: 06/18/20 11:41> <Diann Wagner - Last Filed: 06/19/20 15:53> - Medical Decision Making 64-year-old presented for migraine patient has chronic migraines he is neurovascularly intact with no neurological deficits. Patient we discharged in stable condition with close follow-up with his pain management. (Shahbaz Mcdaniel I was available for consultation in the emergency department. The history and physical exam were done by the midlevel provider. I was consulted for this patients care. I reviewed the case with the midlevel provider and based on their presentation of the patient, I agree with the assessment, medical decision making and plan of care as documented. Chart was dictated using [employer] dictation software. Attempts were made to correct any dictation errors however some typographical errors may persist. Patient was seen during a national state of emergency due to the Covid-19 pandemic. (Diann Wagner) Disposition Is patient prescribed a controlled substance at d/c from ED?: No Time of Disposition: 11:35 <Shahbaz Mcdaniel - Last Filed: 06/18/20 11:41> <Diann Wagner - Last Filed: 06/19/20 15:53> Clinical Impression: Migraine Disposition: HOME SELF-CARE Condition: Stable Instructions (If sedation given, give patient instructions): Acute Headache (ED) Additional Instructions: Please return to the Emergency Department if symptoms worsen or any other concerns. Referrals: None,Stated [Primary Care Provider] - 1-2 days
== END 2020-06-18 11:39 | disposition home or self-care (01) ==
LOC: EC 11:07
DX: G43.709 Chronic migraine without aura, not intractable, without status migrainosus (principal); I25.119 Atherosclerotic heart disease of native coronary artery with unspecified angina pectoris; J44.9 Chronic obstructive pulmonary disease, unspecified; I10 Essential (primary) hypertension; Z79.82 Long term (current) use of aspirin; Z79.899 Other long term (current) drug therapy; Z79.02 Long term (current) use of antithrombotics/antiplatelets; Z86.718 Personal history of other venous thrombosis and embolism; Z95.5 Presence of coronary angioplasty implant and graft; Z98.1 Arthrodesis status
CPT/HCPCS: 99283; 96372 ×2; J2405; J1170

== ENCOUNTER 2020-07-17 06:31 | Emergency (ER) | payer MEDICARE ==
[2020-07-17 06:36] VITALS: BP 166/88; PULSE 104; RESP 20; TEMP 98.4
[2020-07-17] MEDS ORDERED: ONDANSETRON 4 MG ODT STARTER PACK 2 TAB BTL PO STA (06:55)
--- NOTE | 2020-07-17 06:58 | ED ---
General Adult HPI - General Chief complaint: Headache Stated complaint: Migraine Source: patient, RN notes reviewed Mode of arrival: ambulatory Limitations: no limitations - History of Present Illness Initial comments: 64-year-old male presents to the emergency room for a chief complaint of headache. Patient has had a headache since yesterday at 11:30 AM. Patient states it is consistent with previous headaches. States he feels it behind his eyes. States that he has been nauseous as well. Patient states his eyes are sensitive to light. Patient denies any weakness in upper or lower extremities. Denies neck pain or stiffness or fevers. Patient ambulatory. Patient has no other complaints at this time including shortness of breath, chest pain, abdominal pain, nausea or vomiting, or visual changes. - Related Data Home Medications Medication Instructions Recorded Confirmed Fluticasone Nasal [place] [Flonase 1 spray EA NOSTRIL BID PRN 04/20/17 05/29/20 Nasal [place]] Morphine Sulfate ER [Ms Contin] 30 mg PO Q8H 10/10/17 05/29/20 tiZANidine [Zanaflex] 4 mg PO TID PRN 02/26/18 05/29/20 Aspirin EC [Ecotrin Low Dose] 81 mg PO DAILY 01/02/20 05/29/20 Gabapentin [Neurontin] 300 mg PO TID 01/02/20 05/29/20 carvediloL [Coreg*] 12.5 mg PO AC-BID 01/02/20 05/29/20 oxyCODONE-APAP 10-325MG [Percocet 1 tab PO Q8H PRN 01/02/20 05/29/20 10-325 mg] Previous Rx's Medication Instructions Recorded Atorvastatin [Lipitor] 80 mg PO HS #30 tab 10/12/17 cloNIDine HCL [Catapres] 0.1 mg PO BID #60 tab 02/08/19 Ezetimibe [Zetia] 10 mg PO DAILY #30 tab 05/24/19 amLODIPine [Norvasc] 5 mg PO BID #60 tab 05/24/19 Nitroglycerin Sl Tabs [Nitrostat] 0.4 mg SUBLINGUAL Q5M PRN #20 tab 07/02/19 Dicyclomine [Bentyl] 10 mg PO QID PRN #90 cap 05/30/20 Losartan [Cozaar] 50 mg PO BID #0 tab 05/30/20 Pantoprazole Sodium [Protonix] 40 mg PO DAILY #90 tab 05/30/20 Allergies Allergy/AdvReac Type Severity Reaction Status Date / Time ibuprofen [From Motrin] Allergy Rash/Hives Verified 07/17/20 06:36 ketorolac tromethamine Allergy Rash/Hives Verified 07/17/20 06:36 [From Toradol] Review of Systems ROS Statement: Those systems with pertinent positive or pertinent negative responses have been documented in the HPI. ROS Other: All systems not noted in ROS Statement are negative. Past Medical History Past Medical History: Coronary Artery Disease (CAD), Chest Pain / Angina, COPD, Deep Vein Thrombosis (DVT), GERD/Reflux, Hyperlipidemia, Hypertension, Osteoarthritis (OA), Thyroid Disorder Additional Past Medical History / Comment(s): Occasional palpitations, gastritis, small hiatal hernia, diverticular dx, pt states years ago he had PUD, chronic low back pain, chronic pain syndrome, migraines, DVT L arm, numbness/tingling bilateral lower legs, bilateral past R hand fracture, arthritis multiple joints, hyperthyroid, sinus problems. History of Any Multi-Drug Resistant Organisms: None Reported Past Surgical History: Back Surgery, Cholecystectomy, Heart Catheterization With Stent, Orthopedic Surgery Additional Past Surgical History / Comment(s): EGDs/colonoscopies, multiple low back surgeries, bilateral arm and bilateral thigh surgeries for brown recluse spider bites with infection, morphine pain pump insertion and removal due to infection, PCI with stents, L rotator cuff repair, L knee arthroscopy, cervical fusion/cage, R cataract removal. Past Anesthesia/Blood Transfusion Reactions: No Reported Reaction Additional Past Anesthesia/Blood Transfusion Reaction / Comment(s): Pt states after cervical fusion he "" in the recovery room but does not know cause- he was"gone for 8 minutes" and states he was resusitated. Pt received blood after back surgery and tolerated it well. Date of Last Stent Placement:: 10/12/17 Past Psychological History: No Psychological Hx Reported Smoking Status: Never smoker Past Alcohol Use History: None Reported Past Drug Use History: None Reported - Past Family History Father Family Medical History: No Reported History Additional Family Medical History / Comment(s): Father had back problems. He lived to be 82 yrs old. Mother History Unknown: Yes Family Medical History: Hypertension, Myocardial Infarction ([place]) Additional Family Medical History / Comment(s): Mother of a [place] at the age of 55yrs. Brother(s) Family Medical History: Cancer, COPD Additional Family Medical History / Comment(s): Leukemia General Exam Limitations: no limitations General appearance: alert, in no apparent distress Head exam: Present: atraumatic, normocephalic, normal inspection Eye exam: Present: normal appearance, PERRL, EOMI. Absent: scleral icterus, conjunctival injection, periorbital swelling ENT exam: Present: normal exam, mucous membranes moist Neck exam: Present: normal inspection, full ROM. Absent: tenderness, meningismus, lymphadenopathy Respiratory exam: Present: normal lung sounds bilaterally. Absent: respiratory distress, wheezes, rales, rhonchi, stridor Cardiovascular Exam: Present: regular rate, normal rhythm, normal heart sounds. Absent: systolic murmur, diastolic murmur, rubs, gallop, clicks GI/Abdominal exam: Present: soft, normal bowel sounds. Absent: distended, tenderness, guarding, rebound, rigid Neurological exam: Present: alert, oriented X3, CN II-XII intact, normal gait, other (GCS 15) Expanded Patient oriented to: Present: person, place, time Speech: Present: fluid speech Cranial nerves: EOM's Intact: Normal, Tongue Deviation: Normal, Nystagmus: Normal, Facial Sensation: Normal Cerebellar function: Finger to Nose: Normal, Heel to [place]: Normal Upper motor neuron: Pronator Drift: Normal Sensory exam: Upper Extremity Light Touch: Normal, Upper Extremity Pin Prick: Normal, Lower Extremity Light Touch: Normal, Lower Extremity Pin Prick: Normal Motor strength exam: RUE: 5, LUE: 5, RLE: 5, LLE: 5 Eye Response: (4) open spontaneously Motor Response: (6) obeys commands Verbal Response: (5) oriented [place] Total: 15 Course Vital Signs 07/17/20 06:32 Temperature 98.4 F Pulse Rate 104 H Respiratory 20 Rate Blood Pressure 166/88 O2 Sat by Pulse 100 Oximetry Medical Decision Making - Medical Decision Making Patient presenting to the emergency room for chronic headache. Patient states that he has a morphine and Percocet at home but it is not working. Patient presents specifically today for IM Dilaudid. Patient states she was given a shot and he will leave. I discussed the patient at this is an appropriate treatment of headache or migraine and that I would like to try Fioricet , Imitrex, or other migraine medications. Patient refuses any other medication aside from IM Dilaudid. I did offer Zofran for patient's OB can go home and take his oral morphine. At the same patient is not vomiting and is not requesting a bucket for nausea. Patient can follow up with his primary care for pain management. I did recommend he return for worsening symptoms. Disposition Clinical Impression: Chronic headache Disposition: HOME SELF-CARE Condition: Good Instructions (If sedation given, give patient instructions): Migraine Headache (ED) Additional Instructions: Please take Zofran for nausea. Continue to take her home pain medications. Follow-up with neurology as well as primary care. Is patient prescribed a controlled substance at d/c from ED?: No Referrals: Julian Titus MD [REFERRING] - 1-2 days Time of Disposition: 06:57
== END 2020-07-17 07:08 | disposition home or self-care (01) ==
LOC: EC 06:31
DX: R51 Headache (principal); H53.149 Visual discomfort, unspecified; J44.9 Chronic obstructive pulmonary disease, unspecified; I25.119 Atherosclerotic heart disease of native coronary artery with unspecified angina pectoris; I10 Essential (primary) hypertension; M19.90 Unspecified osteoarthritis, unspecified site; Z79.82 Long term (current) use of aspirin; Z79.899 Other long term (current) drug therapy; Z88.6 Allergy status to analgesic agent; Z86.718 Personal history of other venous thrombosis and embolism; Z95.5 Presence of coronary angioplasty implant and graft; Z98.1 Arthrodesis status; Z98.41 Cataract extraction status, right eye
CPT/HCPCS: 99283; S0119

== ENCOUNTER 2020-08-06 01:08 | Inpatient (IN) | payer MEDICARE ==
[2020-08-06] MEDS ORDERED: HYDROmorphone 0.5 MG/0.5 ML SYRINGE IVP STA ×2 (01:10→02:14)
[2020-08-06] MEDS ORDERED: SODIUM CHLORIDE 0.9% 500 ML 500 ML IV STA (01:10)
[2020-08-06] MEDS ORDERED: ONDANSETRON 4 MG/2 ML VIAL IVP STA (01:10)
[2020-08-06] MEDS ORDERED: ONDANSETRON 4 MG/2 ML VIAL IM STA (01:23)
[2020-08-06] MEDS ORDERED: PROMETHAZINE INJ 25 MG/ML 1 ML VIAL IM STA (01:24)
[2020-08-06 01:53] LABS: Basophils % (A) 0 %; Eosinophils % (A) 1 %; HCT 46.3 % (39.0-53.0); HGB 14.3 gm/dL (13.0-17.5); Hypochromasia Slight; Lymphocytes # (A) 1.2 k/uL (1.0-4.8); Lymphocytes % (A) 15 %; MCH 28.2 pg (25.0-35.0); MCHC 30.9 g/dL (31.0-37.0); MCV 91.4 fL (80.0-100.0); Mean Platelet Volume 6.7; Monocytes # (A) 0.3 k/uL (0-1.0); Monocytes % (A) 4 %; Neutrophils # (A) 6.1 k/uL (1.3-7.7); Neutrophils % (A) 79 %; Platelet Count 501 k/uL (150-450); RBC 5.06 m/uL (4.30-5.90); RDW 14.6 % (11.5-15.5); WBC 7.7 k/uL (3.8-10.6)
[2020-08-06 02:06] LABS: African American GFR (CKD) >90 (>60 ml/min/1.73 sqM); Albumin 5.4 g/dL (3.5-5.0); Amylase 115 U/L (30-110); Anion Gap 13 mmol/L; Calcium 10.6 mg/dL (8.4-10.2); Carbon Dioxide 22 mmol/L (22-30); Chloride 109 mmol/L (98-107); Glucose 137 mg/dL (74-99); Non-African American GFR(CKD) >90 (>60 ml/min/1.73 sqM); Sodium 144 mmol/L (137-145); Total Bilirubin 0.9 mg/dL (0.2-1.3); Total Protein 9.1 g/dL (6.3-8.2)
[2020-08-06] MEDS ORDERED: PANTOPRAZOLE 40 MG/10 ML VIAL IVP STA (02:08)
[2020-08-06 02:12] LABS: AST 28 U/L (17-59); Blood Urea Nitrogen 14 mg/dL (9-20); Potassium 4.7 mmol/L (3.5-5.1)
[2020-08-06 02:13] LABS: ALT 11 U/L (4-49); Alkaline Phosphatase 82 U/L (38-126)
--- NOTE | 2020-08-06 02:19 | US ---
EXAMINATION TYPE: US abdomen limited DATE OF EXAM: 08/06/2020 COMPARISON: NONE CLINICAL HISTORY: epigastric pain. patient is moaning in pain and stops exam multiple times to vomit, h/o cholecystectomy EXAM MEASUREMENTS: Liver Length: 15.1 cm Gallbladder Wall: Surgically absent CBD: 0.7 cm Right Kidney: 10.0 x 4.8 x 3.8 cm Pancreas: wnl Liver: wnl Gallbladder: Surgically absent Evidence for sonographic [place]aga's sign: patient states he is in pain everywhere I press. CBD: wnl Right Kidney: wnl IMPRESSION: Cholecystectomy. No dilated ducts. No focal liver defect. Normal pancreas.
--- NOTE | 2020-08-06 02:35 | XR ---
EXAMINATION TYPE: XR abdomen acute w cxr DATE OF EXAM: 08/06/2020 COMPARISON: 05/22/2020 and 06/03/2020 HISTORY: Abdominal pain TECHNIQUE: 4 views FINDINGS: There is no heart failure nor confluent pneumonic infiltrate. Costophrenic angles are clear . There is no evidence of pneumoperitoneum. There is some mildly distended small bowel loops in the l eft upper quadrant. There is multilevel lumbar fusion surgery. There are clips from cholecystectomy. IMPRESSION: No active cardiopulmonary disease. Distended small bowel in the left abdomen could relate to some mild ileus that is a change compared to old exam. Partial mechanical small bowel obstruction not excluded.
[2020-08-06] MEDS ORDERED: LORazepam 2 MG/ML INJ IV STA (02:38)
[2020-08-06] MEDS ORDERED: diphenhydrAMINE 50 MG/ML 1 ML VIAL IVP STA (02:38)
--- NOTE | 2020-08-06 03:13 | ED ---
Abdominal Pain HPI - General Source: patient, EMS Mode of arrival: EMS Limitations: no limitations <Mary Young - Last Filed: 08/06/20 03:34> <Wilman Gordillo - Last Filed: 08/06/20 08:45> - General Chief Complaint: Abdominal Pain Stated Complaint: vomiting Time Seen by Provider: 08/06/20 01:09 - History of Present Illness Initial Comments: 64yo male presenting to the Er today for cc of abdominal pain, vomiting. Patient states that he has been vomiting for the past 24 hours. He states he cannot stop it is epigastric abdominal pain patient states she's also had loose stools. Denies chest pain, fevers, lower abdominal pain, shortness of breath. Denies constipation. States he has noted at time blood in the diarrhea. Denies valerie only bloody stools. Admits to some brown flecks in his vomit today--he states he has been wretching and vomiting all day. Denies headaches, or visual changes. Patient has no additional complaints. Denies anticoagulation use. (Mary Young) - Related Data Home Medications Medication Instructions Recorded Confirmed Fluticasone Nasal [place] [Flonase 1 spray EA NOSTRIL BID PRN 04/20/17 08/06/20 Nasal [place]] Morphine Sulfate ER [Ms Contin] 30 mg PO Q8H 10/10/17 08/06/20 tiZANidine [Zanaflex] 4 mg PO TID PRN 02/26/18 08/06/20 Aspirin EC [Ecotrin Low Dose] 81 mg PO DAILY 01/02/20 08/06/20 Gabapentin [Neurontin] 300 mg PO TID 01/02/20 08/06/20 carvediloL [Coreg*] 12.5 mg PO AC-BID 01/02/20 08/06/20 oxyCODONE-APAP 10-325MG [Percocet 1 tab PO Q8H PRN 01/02/20 08/06/20 10-325 mg] Prasugrel [Effient] 10 mg PO DAILY 08/06/20 08/06/20 lisinopriL 40 mg PO DAILY 08/06/20 08/06/20 Previous Rx's Medication Instructions Recorded Atorvastatin [Lipitor] 80 mg PO HS #30 tab 10/12/17 cloNIDine HCL [Catapres] 0.1 mg PO BID #60 tab 02/08/19 Ezetimibe [Zetia] 10 mg PO DAILY #30 tab 05/24/19 amLODIPine [Norvasc] 5 mg PO BID #60 tab 05/24/19 Nitroglycerin Sl Tabs [Nitrostat] 0.4 mg SUBLINGUAL Q5M PRN #20 tab 07/02/19 Dicyclomine [Bentyl] 10 mg PO QID PRN #90 cap 05/30/20 Pantoprazole Sodium [Protonix] 40 mg PO DAILY #90 tab 05/30/20 Allergies Allergy/AdvReac Type Severity Reaction Status Date / Time ibuprofen [From Motrin] Allergy Rash/Hives Verified 07/17/20 06:36 ketorolac tromethamine Allergy Rash/Hives Verified 07/17/20 06:36 [From Toradol] Review of Systems ROS Other: All systems not noted in ROS Statement are negative. <Mary Young - Last Filed: 08/06/20 03:34> ROS Other: All systems not noted in ROS Statement are negative. <Wilman Gordillo - Last Filed: 08/06/20 08:45> ROS Statement: Those systems with pertinent positive or pertinent negative responses have been documented in the HPI. Past Medical History Past Medical History: Coronary Artery Disease (CAD), Chest Pain / Angina, COPD, Deep Vein Thrombosis (DVT), GERD/Reflux, Hyperlipidemia, Hypertension, Osteoarthritis (OA), Thyroid Disorder Additional Past Medical History / Comment(s): Occasional palpitations, gastritis, small hiatal hernia, diverticular dx, pt states years ago he had PUD, chronic low back pain, chronic pain syndrome, migraines, DVT L arm, numbness/tingling bilateral lower legs, bilateral past R hand fracture, arthri tis multiple joints, hyperthyroid, sinus problems. History of Any Multi-Drug Resistant Organisms: None Reported Past Surgical History: Back Surgery, Cholecystectomy, Heart Catheterization With Stent, Orthopedic Surgery Additional Past Surgical History / Comment(s): EGDs/colonoscopies, multiple low back surgeries, bilateral arm and bilateral thigh surgeries for brown recluse spider bites with infection, morphine pain pump insertion and removal due to infection, PCI with stents, L rotator cuff repair, L knee arthroscopy, cervical fusion/cage, R cataract removal. Past Anesthesia/Blood Transfusion Reactions: No Reported Reaction Additional Past Anesthesia/Blood Transfusion Reaction / Comment(s): Pt states after cervical fusion he "" in the recovery room but does not know cause- he was"gone for 8 minutes" and states he was resusitated. Pt received blood after back surgery and tolerated it well. Date of Last Stent Placement:: 10/12/17 Past Psychological History: No Psychological Hx Reported Smoking Status: Never smoker Past Alcohol Use History: None Reported Past Drug Use History: None Reported - Past Family History Father Family Medical History: No Reported History Additional Family Medical History / Comment(s): Father had back problems. He lived to be 82 yrs old. Mother History Unknown: Yes Family Medical History: Hypertension, Myocardial Infarction ([place]) Additional Family Medical History / Comment(s): Mother of a [place] at the age of 55yrs. Brother(s) Family Medical History: Cancer, COPD Additional Family Medical History / Comment(s): Leukemia <Mary Young - Last Filed: 08/06/20 03:34> General Exam Limitations: no limitations <Mary Young L - Last Filed: 08/06/20 03:34> - General Exam Comments Initial Comments: General: The patient is awake and alert, active vomiting Eye: +3 mm pupils are equal, round and reactive to light, extra-ocular movements are intact. No nystagmus. There is normal conjunctiva bilaterally. No signs of icterus. Ears, nose, mouth and throat: There are moist mucous membranes and no oral lesions. Neck: The neck is supple, there is no tenderness or JVD. Cardiovascular: There is a regular rate and rhythm. No murmur, rub or gallop is appreciated. Respiratory: Lungs are clear to auscultation, respirations are non-labored, breath sounds are equal. No wheezes, stridor, rales, or rhonchi. Gastrointestinal: Soft, non-distended, epigastric tenderness to palpation of the abdomen abdomen without masses or organomegaly noted. There is no rebound or guarding present. Musculoskeletal: Normal ROM, no tenderness. Strength 5/5. Sensation intact. Ra dial pulses equal bilaterally 2+. Neurological: A&O x 3. CN II-XII intact grossly, There are no obvious motor or sensory deficits. Coordination appears grossly intact. Speech is normal. Skin: Skin is warm and dry and no rashes or lesions are noted. Psychiatric: Cooperative, appropriate mood & affect, normal judgment. (Mary Young) Course <Mary Young - Last Filed: 08/06/20 03:34> Vital Signs 08/06/20 08/06/20 08/06/20 01:09 04:45 06:12 Temperature 98.5 F 97.7 F Pulse Rate 75 90 92 Respiratory 20 18 18 Rate Blood Pressure 164/94 172/92 177/102 O2 Sat by Pulse 99 100 100 Oximetry - Reevaluation(s) Reevaluation #1: signed out to Dr. gordillo--CT pending 08/06/20 03:33 (Mary Young) Medical Decision Making - Lab Data Result diagrams: 08/06/20 01:45 08/06/20 01:45 <Mary Young - Last Filed: 08/06/20 03:34> - Lab Data Result diagrams: 08/06/20 01:45 08/06/20 01:45 <Wilman Gordillo - Last Filed: 08/06/20 08:45> - Medical Decision Making I saw this patient in conjunction with the physician assistant site manager. I performed independent history and physical exam. Agree with case management. (Wilman Gordillo) - Lab Data Lab Results 08/06/20 08/06/20 08/06/20 Range/Units 01:45 01:45 01:45 WBC 7.7 (3.8-10.6) k/uL RBC 5.06 (4.30-5.90) m/uL Hgb 14.3 (13.0-17.5) gm/dL Hct 46.3 (39.0-53.0) % MCV 91.4 (80.0-100.0) fL MCH 28.2 (25.0-35.0) pg MCHC 30.9 L (31.0-37.0) g/dL RDW 14.6 (11.5-15.5) % Plt Count 501 H (150-450) k/uL Neutrophils % 79 % Lymphocytes % 15 % Monocytes % 4 % Eosinophils % 1 % Basophils % 0 % Neutrophils # 6.1 (1.3-7.7) k/uL Lymphocytes # 1.2 (1.0-4.8) k/uL Monocytes # 0.3 (0-1.0) k/uL Eosinophils # 0.0 (0-0.7) k/uL Basophils # 0.0 (0-0.2) k/uL Hypochromasia Slight Sodium 144 (137-145) mmol/L Potassium 4.7 (3.5-5.1) mmol/L Chloride 109 H (98-107) mmol/L Carbon Dioxide 22 (22-30) mmol/L Anion Gap 13 mmol/L BUN 14 (9-20) mg/dL Creatinine 0.68 (0.66-1.25) mg/dL Est GFR (CKD-EPI)AfAm >90 (>60 ml/min/1.73 sqM) Est GFR (CKD-EPI)NonAf >90 (>60 ml/min/1.73 sqM) Glucose 137 H (74-99) mg/dL Calcium 10.6 H (8.4-10.2) mg/dL Total Bilirubin 0.9 (0.2-1.3) mg/dL AST 28 (17-59) U/L ALT 11 (4-49) U/L Alkaline Phosphatase 82 (38-126) U/L Troponin I <0.012 (0.000-0.034) ng/mL Total Protein 9.1 H (6.3-8.2) g/dL Albumin 5.4 H (3.5-5.0) g/dL Amylase 115 H (30-110) U/L Lipase 115 (23-300) U/L Stool Occult Blood (Negative) 08/06/20 Range/Units 03:35 WBC (3.8-10.6) k/uL RBC (4.30-5.90) m/uL Hgb (13.0-17.5) gm/dL Hct (39.0-53.0) % MCV (80.0-100.0) fL MCH (25.0-35.0) pg MCHC (31.0-37.0) g/dL RDW (11.5-15.5) % Plt Count (150-450) k/uL Neutrophils % % Lymphocytes % % Monocytes % % Eosinophils % % Basophils % % Neutrophils # (1.3-7.7) k/uL Lymphocytes # (1.0-4.8) k/uL Monocytes # (0-1.0) k/uL Eosinophils # (0-0.7) k/uL Basophils # (0-0.2) k/uL Hypochromasia Sodium (137-145) mmol/L Potassium (3.5-5.1) mmol/L Chloride (98-107) mmol/L Carbon Dioxide (22-30) mmol/L Anion Gap mmol/L BUN (9-20) mg/dL Creatinine (0.66-1.25) mg/dL Est GFR (CKD-EPI)AfAm (>60 ml/min/1.73 sqM) Est GFR (CKD-EPI)NonAf (>60 ml/min/1.73 sqM) Glucose (74-99) mg/dL Calcium (8.4-10.2) mg/dL Total Bilirubin (0.2-1.3) mg/dL AST (17-59) U/L ALT (4-49) U/L Alkaline Phosphatase (38-126) U/L Troponin I (0.000-0.034) ng/mL Total Protein (6.3-8.2) g/dL Albumin (3.5-5.0) g/dL Amylase (30-110) U/L Lipase (23-300) U/L Stool Occult Blood Positive (Negative) Disposition <Mary Young - Last Filed: 08/06/20 03:34> Is patient prescribed a controlled substance at d/c from ED?: No <Wilman Gordillo - Last Filed: 08/06/20 08:45> Clinical Impression: Nausea & vomiting, Ileus Disposition: ADMITTED IP TO THIS HOSP Condition: Fair
[2020-08-06] MEDS ORDERED: HYDROmorphone 1 MG/ML 1 ML SYRINGE IVP STA ×2 (03:15→05:35)
--- NOTE | 2020-08-06 03:36 | CT ---
EXAMINATION TYPE: CT abdomen pelvis wo con DATE OF EXAM: 08/06/2020 COMPARISON: 05/22/2020 HISTORY: Vomiting w abd pain CT DLP: 665.7 mGycm Automated exposure control for dose reduction was used. Images were obtained from the diaphragm to the floor the pelvis without contrast. FINDINGS: There is small bilateral pleural effusions. Lung bases are clear of consolidation. Heart size is norm al. There are clips from cholecystectomy. Liver shows no focal defect. Spleen is intact. The stomach is i ntact. Stomach is essentially empty. There is no evidence of pancreatic mass. There is no adrenal mass. Kidneys have normal size. There is no hydronephrosis. Ureters are not dilat ed. There is metal artifact from posterior multilevel fusion surgery in the lower lumbar spine and sa miriam. Bladder distends smoothly. There is no inguinal hernia. There is no free fluid in the pelvis. There a re some mildly distended loops of fluid-filled small bowel in the mid and lower abdomen. Small bowel measures up to 2.6 cm. Appendix appears posterior and appears normal. Large bowel pattern is fairly n ormal. There is no free air. There is no mesenteric edema. There is no ascites. There is laminectomy defect in the lower lumbar spine. IMPRESSION: Mild fluid distended small bowel in the lower and mid abdomen consistent with minimal ileus that is a change compared to old exam. I do not see evidence for mechanical bowel obstruction. Normal appendix .
[2020-08-06] MEDS: PROMETHAZINE INJ 25 MG in SODIUM CHLORIDE 0.9% 50 ML IVPB PRN ×3 (03:46→19:19)
[2020-08-06] MEDS ORDERED: METOCLOPRAMIDE 5 MG/ML 2 ML VIAL IVP STA (05:35)
[2020-08-06] MEDS ORDERED: NALOXONE 0.4 MG/ML 1 ML VIAL IV PRN (05:36)
[2020-08-06] MEDS ORDERED: LABETALOL 5 MG/ML VIAL MDV IVP STA (05:39)
--- NOTE | 2020-08-06 06:00 | P.HPIM ---
History of Present Illness H&P Date: 08/06/20 Patient is a 64-year-old male with a PMH of coronary artery disease status post CABG and multiple stents, hypertension, hyperlipidemia, history of DVT, COPD, and chronic lower back pain who presented to the ED with complaints of abdominal pain with nausea and vomiting. The patient notes that his pain started suddenly 2 days ago, and he has had 15-20 episodes of nonbloody emesis since then and has been unable to eat or drink much. Denied bright red blood or coffee ground in the vomitus. He rated the pain as a 9 out of 10, nonradiating, without alleviating or exacerbating features. He reported that "the only thing that helps the pain is Dilaudid". He also reported 3-4 episodes of watery stools over the past 24 hours. Denied any additional complaints. Denied chest pain, shortness of fever, chills, or cough. Reports that due to his nausea and vomiting, he has been unable to take his oral pain medications at home for his back pain. In the emergency room, CT abdomen pelvis without contrast revealed findings consistent with ileus without evidence of a mechanical bowel obstruction. An abdominal ultrasound was unremarkable. Laboratory evaluation revealed a lipase of 115, with a positive stool occult blood, hemoglobin 14.3, WBC count 7.7, BUN 14, creatinine 0.68. Of note, the patient had presented with similar complaints in Dec, 2019 at which time an EGD had revealed mild gastri tis. Review of Systems Pertinent positives and negatives as discussed in HPI, a complete review of systems was performed and all other systems are negative. Past Medical History Past Medical History: Coronary Artery Disease (CAD), Chest Pain / Angina, COPD, Deep Vein Thrombosis (DVT), GERD/Reflux, Hyperlipidemia, Hypertension, Ost eoarthritis (OA), Thyroid Disorder Additional Past Medical History / Comment(s): Occasional palpitations, gastritis, small hiatal hernia, diverticular dx, pt states years ago he had PUD, chronic low back pain, chronic pain syndrome, migraines, DVT L arm, numbness/tingling bilateral lower legs, bilateral past R hand fracture, arthritis multiple joints, hyperthyroid, sinus problems. History of Any Multi-Drug Resistant Organisms: None Reported Past Surgical History: Back Surgery, Cholecystectomy, Heart Catheterization With Stent, Orthopedic Surgery Additional Past Surgical History / Comment(s): EGDs/colonoscopies, multiple low back surgeries, bilateral arm and bilateral thigh surgeries for brown recluse spider bites with infection, morphine pain pump insertion and removal due to infection, PCI with stents, L rotator cuff repair, L knee arthroscopy, cervical fusion/cage, R cataract removal. Past Anesthesia/Blood Transfusion Reactions: No Reported Reaction Additional Past Anesthesia/Blood Transfusion Reaction / Comment(s): Pt states after cervical fusion he "" in the recovery room but does not know cause- he was"gone for 8 minutes" and states he was resusitated. Pt received blood after back surgery and tolerated it well. Date of Last Stent Placement:: 10/12/17 Past Psychological History: No Psychological Hx Reported Smoking Status: Never smoker Past Alcohol Use History: None Reported Past Drug Use History: None Reported - Past Family History Father Family Medical History: No Reported History Additional Family Medical History / Comment(s): Father had back problems. He lived to be 82 yrs old. Mother History Unknown: Yes Family Medical History: Hypertension, Myocardial Infarction ([place]) Additional Family Medical History / Comment(s): Mother of a [place] at the age of 55yrs. Brother(s) Family Medical History: Cancer, COPD Additional Family Medical History / Comment(s): Leukemia Medications and Allergies Home Medications Medication Instructions Recorded Confirmed Type Fluticasone Nasal [place] [Flonase 1 spray EA NOSTRIL BID PRN 04/20/17 05/29/20 History Nasal [place]] Morphine Sulfate ER [Ms Contin] 30 mg PO Q8H 10/10/17 05/29/20 History Atorvastatin [Lipitor] 80 mg PO HS #30 tab 10/12/17 05/29/20 Rx tiZANidine [Zanaflex] 4 mg PO TID PRN 02/26/18 05/29/20 History cloNIDine HCL [Catapres] 0.1 mg PO BID #60 tab 02/08/19 05/29/20 Rx Ezetimibe [Zetia] 10 mg PO DAILY #30 tab 05/24/19 05/29/20 Rx amLODIPine [Norvasc] 5 mg PO BID #60 tab 05/24/19 05/29/20 Rx Nitroglycerin Sl Tabs [Nitrostat] 0.4 mg SUBLINGUAL Q5M PRN #20 tab 07/02/19 05/29/20 Rx Aspirin EC [Ecotrin Low Dose] 81 mg PO DAILY 01/02/20 05/29/20 History Gabapentin [Neurontin] 300 mg PO TID 01/02/20 05/29/20 History carvediloL [Coreg*] 12.5 mg PO AC-BID 01/02/20 05/29/20 History oxyCODONE-APAP 10-325MG [Percocet 1 tab PO Q8H PRN 01/02/20 05/29/20 History 10-325 mg] Dicyclomine [Bentyl] 10 mg PO QID PRN #90 cap 05/30/20 Rx Losartan [Cozaar] 50 mg PO BID #0 tab 05/30/20 Rx Pantoprazole Sodium [Protonix] 40 mg PO DAILY #90 tab 05/30/20 Rx Allergies Allergy/AdvReac Type Severity Reaction Status Date / Time ibuprofen [From Motrin] Allergy Rash/Hives Verified 07/17/20 06:36 ketorolac tromethamine Allergy Rash/Hives Verified 07/17/20 06:36 [From Toradol] Physical Exam Vitals: Vital Signs Temp Pulse Resp BP Pulse Ox 08/06/20 04:45 90 18 172/92 100 08/06/20 01:09 98.5 F 75 20 164/94 99 Intake and Output 08/05/20 08/05/20 08/06/20 14:59 22:59 06:59 Other: Weight 79.379 kg General: non toxic, in distress from pain, appears at stated age, normal weight Derm: no unusual rashes/lesions no unusual ecchymoses, warm, dry Head: atraumatic, normocephalic, symmetric Eyes: EOMI, no lid lag, anicteric sclera, pupils equal round reactive to light ENT: Nose and ears atraumatic, no thrush, no pharyngeal erythema Neck: No thyromegaly, no cervical lymphadenopathy, trachea midline, supple Mouth: no lip lesion, mucus membranes moist Cardiovascular: S1S2 reg, no murmur, positive posterior tibial pulse bilateral, no edema, capillary refill less than 2 seconds Lungs: CTA bilateral, no rhonchi, no rales , no accessory muscle use Abdominal: soft, epigastric abdominal tenderness with guarding, no appreciable organomegaly, normal bowel sounds Ext: no gross muscle atrophy, muscle strength 5 out of 5 in all 4 extremities grossly, no contractures, Neuro: CN II-XI grossly intact, light touch intact all 4 extremities, finger to nose within normal limits, Psych: Alert, oriented, appropriate affect Results CBC & Chem 7: 08/06/20 01:45 08/06/20 01:45 Labs: Abnormal Lab Results - Last 24 Hours (Table) 08/06/20 08/06/20 Range/Units 01:45 01:45 MCHC 30.9 L (31.0-37.0) g/dL Plt Count 501 H (150-450) k/uL Chloride 109 H (98-107) mmol/L Glucose 137 H (74-99) mg/dL Calcium 10.6 H (8.4-10.2) mg/dL Total Protein 9.1 H (6.3-8.2) g/dL Albumin 5.4 H (3.5-5.0) g/dL Amylase 115 H (30-110) U/L Assessment and Plan Plan: Intractable nausea and vomiting with abdominal pain, unclear etiology -Pain control (MAPS reviewed) -Anti-emetics -NPO for now -GI consult -IV fluids Chronic conditions: Coronary artery disease, COPD, hypertension, hyperlipidemia -Continue with home meds DVT prophylaxis -IPCDs The patient is admitted with an anticipated less than 2 midnight stay for evaluation of abdominal pain CODE STATUS: Full Code Discussed with: Patient Anticipated discharge date: 1-[address]: Home A total of 35 minutes was spent on the care of this complex patient more than 50% of the time was spent in counseling and care coordination.
[2020-08-06] MEDS: SODIUM CHLORIDE 0.9% 1,000 ML IV SCH ×2 (06:01→17:43)
[2020-08-06] MEDS: MORPHINE SULFATE 4 MG/ML SYRINGE IVP PRN ×6 (07:33→22:59)
[2020-08-06] MEDS ORDERED: PROCHLORPERAZINE 10 MG TAB PO PRN (09:12)
[2020-08-06] MEDS: PANTOPRAZOLE 40 MG/10 ML VIAL IVP SCH ×2 (10:08→20:00)
--- NOTE | 2020-08-06 13:50 | P.GSCN ---
History of Present Illness Consult date: 08/06/20 Reason for Consult: Abdominal pain, nausea, vomiting, diarrhea History of present illness: The patient is a 64-year-old man who had sudden onset of pain along with nausea, vomiting and diarrhea 3 days ago. The patient has had prior admission this year with similar complaints. He underwent an EGD showing some gastritis. In 2017 he had upper and lower endoscopy performed for similar complaints which was unremarkable. He has not been around anyone else that is been ill. Denies fevers or chills, denies chest pain or shortness of breath. He has been unable to eat or drink. No blood in the stool or dark tarry stool. No history of any recent antibiotic use. The patient has had prior cholecystectomy many years ago. Review of Systems All systems: negative (He repeatedly states "I'm so sick") Past Medical History Past Medical History: Coronary Artery Disease (CAD), Chest Pain / Angina, COPD, Deep Vein Thrombosis (DVT), GERD/Reflux, Hyperlipidemia, Hypertension, Osteoarthritis (OA), Thyroid Disorder Additional Past Medical History / Comment(s): Occasional palpitations, gastritis, small hiatal hernia, diverticular dx, pt states years ago he had PUD, chronic low back pain, chronic pain syndrome, migraines, DVT L arm, numb ness/tingling bilateral lower legs, bilateral past R hand fracture, arthritis multiple joints, hyperthyroid, sinus problems. History of Any Multi-Drug Resistant Organisms: None Reported Past Surgical History: Back Surgery, Cholecystectomy, Heart Catheterization With Stent, Orthopedic Surgery Additional Past Surgical History / Comment(s): EGDs/colonoscopies, multiple low back surgeries, bilateral arm and bilateral thigh surgeries for brown recluse spider bites with infection, morphine pain pump insertion and removal due to infection, PCI with stents, L rotator cuff repair, L knee arthroscopy, cervical fusion/cage, R cataract removal. Past Anesthesia/Blood Transfusion Reactions: No Reported Reaction Additional Past Anesthesia/Blood Transfusion Reaction / Comm: Pt states after cervical fusion he "" in the recovery room but does not know cause- he was"gone for 8 minutes" and states he was resusitated. Pt received blood after back surgery and tolerated it well. Date of Last Stent Placement:: 10/12/17 Past Psychological History: No Psychological Hx Reported Smoking Status: Never smoker Past Alcohol Use History: None Reported Past Drug Use History: None Reported - Past Family History Father Family Medical History: No Reported History Additional Family Medical History / Comment(s): Father had back problems. He lived to be 82 yrs old. Mother History Unknown: Yes Family Medical History: Hypertension, Myocardial Infarction ([place]) Additional Family Medical History / Comment(s): Mother of a [place] at the age of 55yrs. Brother(s) Family Medical History: Cancer, COPD Additional Family Medical History / Comment(s): Leukemia Medications and Allergies Home Medications Medication Instructions Recorded Confirmed Type Fluticasone Nasal [place] [Flonase 1 spray EA NOSTRIL BID PRN 04/20/17 08/06/20 History Nasal [place]] Morphine Sulfate ER [Ms Contin] 30 mg PO Q8H 10/10/17 08/06/20 History Atorvastatin [Lipitor] 80 mg PO HS #30 tab 10/12/17 08/06/20 Rx tiZANidine [Zanaflex] 4 mg PO TID PRN 02/26/18 08/06/20 History cloNIDine HCL [Catapres] 0.1 mg PO BID #60 tab 02/08/19 08/06/20 Rx Ezetimibe [Zetia] 10 mg PO DAILY #30 tab 05/24/19 08/06/20 Rx amLODIPine [Norvasc] 5 mg PO BID #60 tab 05/24/19 08/06/20 Rx Nitroglycerin Sl Tabs [Nitrostat] 0.4 mg SUBLINGUAL Q5M PRN #20 tab 07/02/19 08/06/20 Rx Aspirin EC [Ecotrin Low Dose] 81 mg PO DAILY 01/02/20 08/06/20 History Gabapentin [Neurontin] 300 mg PO TID 01/02/20 08/06/20 History carvediloL [Coreg*] 12.5 mg PO AC-BID 01/02/20 08/06/20 History oxyCODONE-APAP 10-325MG [Percocet 1 tab PO Q8H PRN 01/02/20 08/06/20 History 10-325 mg] Dicyclomine [Bentyl] 10 mg PO QID PRN #90 cap 05/30/20 08/06/20 Rx Pantoprazole Sodium [Protonix] 40 mg PO DAILY #90 tab 05/30/20 08/06/20 Rx Prasugrel [Effient] 10 mg PO DAILY 08/06/20 08/06/20 History lisinopriL 40 mg PO DAILY 08/06/20 08/06/20 History Allergies Allergy/AdvReac Type Severity Reaction Status Date / Time ibuprofen [From Motrin] Allergy Rash/Hives Verified 07/17/20 06:36 ketorolac tromethamine Allergy Rash/Hives Verified 07/17/20 06:36 [From Toradol] Surgical - Exam Osteopathic Statement: *. No significant issues noted on an osteopathic structural exam other than those noted in the History and Physical/Consult. Vital Signs Temp Pulse Resp BP Pulse Ox 98.5 F 75 20 164/94 99 08/06/20 01:09 08/06/20 01:09 08/06/20 01:09 08/06/20 01:09 08/06/20 01:09 - General Appears uncomfortable well developed, well nourished - Eyes normal ocular movement, no icteric - ENT normal mucosa - Neck trachea midline - Respiratory normal expansion, clear to auscultation - Cardiovascular Rhythm: regular - Abdomen Abdomen: soft, tender (Diffuse nonspecific tenderness ), no rebound, no distend ed Results - Labs 08/06/20 01:45 08/06/20 01:45 Abnormal Lab Results - Last 24 Hours (Table) 08/06/20 08/06/20 Range/Units 01:45 01:45 MCHC 30.9 L (31.0-37.0) g/dL Plt Count 501 H (150-450) k/uL Chloride 109 H (98-107) mmol/L Glucose 137 H (74-99) mg/dL Calcium 10.6 H (8.4-10.2) mg/dL Total Protein 9.1 H (6.3-8.2) g/dL Albumin 5.4 H (3.5-5.0) g/dL Amylase 115 H (30-110) U/L Diabetes panel 08/06/20 Range/Units 01:45 Sodium 144 (137-145) mmol/L Potassium 4.7 (3.5-5.1) mmol/L Chloride 109 H (98-107) mmol/L Carbon Dioxide 22 (22-30) mmol/L BUN 14 (9-20) mg/dL Creatinine 0.68 (0.66-1.25) mg/dL Glucose 137 H (74-99) mg/dL Calcium 10.6 H (8.4-10.2) mg/dL AST 28 (17-59) U/L ALT 11 (4-49) U/L Alkaline Phosphatase 82 (38-126) U/L Total Protein 9.1 H (6.3-8.2) g/dL Albumin 5.4 H (3.5-5.0) g/dL Calcium panel 08/06/20 Range/Units 01:45 Calcium 10.6 H (8.4-10.2) mg/dL Albumin 5.4 H (3.5-5.0) g/dL Pituitary panel 08/06/20 Range/Units 01:45 Sodium 144 (137-145) mmol/L Potassium 4.7 (3.5-5.1) mmol/L Chloride 109 H (98-107) mmol/L Carbon Dioxide 22 (22-30) mmol/L BUN 14 (9-20) mg/dL Creatinine 0.68 (0.66-1.25) mg/dL Glucose 137 H (74-99) mg/dL Calcium 10.6 H (8.4-10.2) mg/dL Adrenal panel 08/06/20 Range/Units 01:45 Sodium 144 (137-145) mmol/L Potassium 4.7 (3.5-5.1) mmol/L Chloride 109 H (98-107) mmol/L Carbon Dioxide 22 (22-30) mmol/L BUN 14 (9-20) mg/dL Creatinine 0.68 (0.66-1.25) mg/dL Glucose 137 H (74-99) mg/dL Calcium 10.6 H (8.4-10.2) mg/dL Total Bilirubin 0.9 (0.2-1.3) mg/dL AST 28 (17-59) U/L ALT 11 (4-49) U/L Alkaline Phosphatase 82 (38-126) U/L Total Protein 9.1 H (6.3-8.2) g/dL Albumin 5.4 H (3.5-5.0) g/dL - Imaging CT scan - abdomen: report reviewed Assessment and Plan (1) Diarrhea Current Visit: Yes Status: Acute Code(s): R19.7 - DIARRHEA, UNSPECIFIED SNOMED Code(s): 01178656 (2) Abdominal pain Current Visit: Yes Status: Acute Code(s): R10.9 - UNSPECIFIED ABDOMINAL PAIN SNOMED Code(s): 54495286 (3) Nausea & vomiting Current Visit: Yes Status: Acute Code(s): R11.2 - NAUSEA WITH VOMITING, UNSPECIFIED SNOMED Code(s): 34188466 (4) Heme positive stool Current Visit: Yes Status: Acute Code(s): R19.5 - OTHER FECAL ABNORMALITIES SNOMED Code(s): 00117584 (5) History of gastric ulcer Current Visit: No Status: Acute Code(s): Z87.19 - PERSONAL HISTORY OF OTHER DISEASES OF THE DIGESTIVE SYSTEM SNOMED Code(s): 863726342 (6) CAD (coronary artery disease) Current Visit: No Status: Chronic Code(s): I25.10 - ATHSCL HEART DISEASE OF [place] CORONARY ARTERY W/O ANG PCTRS SNOMED Code(s): 96924242 Plan: Mild ileus is seen on computed tomography scan. I would recommend supportive care at this point with IV hydration, antiemetics, pain control, H2-jerald. Stool studies were ordered but has not been collected yet. We will add some Reglan for the nausea and vomiting. Recommend covert testing as some people have strictly GI symptoms on presentation. I'll follow with you but currently appears nonsurgical. Further recommendations to follow.
[2020-08-06] MEDS ORDERED: DICYCLOMINE 20 MG TAB PO PRN (14:32)
[2020-08-06] MEDS ORDERED: hydrALAZINE HCL 20 MG/ML 1 ML VIAL IVP STA (14:35)
[2020-08-06] MEDS: METOCLOPRAMIDE 5 MG/ML 2 ML VIAL IVP PRN ×2 (14:36→23:09)
[2020-08-06] MEDS: lisinopriL 20 MG TAB PO SCH (15:57)
[2020-08-06] MEDS: EZETIMIBE 10 MG TAB PO SCH (15:57)
[2020-08-06] MEDS: amLODIPine 5 MG TAB PO SCH ×2 (15:57→20:04)
[2020-08-06] MEDS: cloNIDine HCL 0.1 MG TAB PO SCH ×2 (15:57→20:04)
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
[2020-08-06] MEDS: GABAPENTIN 300 MG CAP PO SCH ×2 (16:31→20:04)
[2020-08-06] MEDS: carvediloL 12.5 MG TAB PO SCH (18:27)
[2020-08-06] MEDS: ATORVASTATIN 80 MG TAB PO SCH (20:04)
[2020-08-07] MEDS: MORPHINE SULFATE 4 MG/ML SYRINGE IVP PRN ×5 (02:10→14:38)
[2020-08-07] MEDS: SODIUM CHLORIDE 0.9% 1,000 ML IV SCH ×3 (04:29→21:24)
[2020-08-07] MEDS: lisinopriL 20 MG TAB PO SCH (08:06)
[2020-08-07] MEDS: carvediloL 12.5 MG TAB PO SCH ×2 (08:06→17:29)
[2020-08-07] MEDS: cloNIDine HCL 0.1 MG TAB PO SCH ×2 (08:06→20:03)
[2020-08-07] MEDS: PANTOPRAZOLE 40 MG/10 ML VIAL IVP SCH ×2 (08:06→21:22)
[2020-08-07] MEDS: EZETIMIBE 10 MG TAB PO SCH (08:06)
[2020-08-07] MEDS: GABAPENTIN 300 MG CAP PO SCH ×3 (08:06→21:21)
[2020-08-07] MEDS: amLODIPine 5 MG TAB PO SCH ×2 (08:06→20:03)
[2020-08-07] MEDS: METOCLOPRAMIDE 5 MG/ML 2 ML VIAL IVP PRN ×2 (08:09→20:03)
[2020-08-07 08:26] LABS: Appearance,Urine Clear (Clear); Bilirubin,Urine Negative (Negative); Blood,Urine Trace (Negative); Color,Urine Yellow; Glucose,Urine (UA) Negative (Negative); Ketones,Urine 1+ (Negative); Leukocyte Esterase,Urine Negative (Negative); Mucus,Urine Rare /hpf; Nitrite,Urine Negative (Negative); Protein,Urine Negative (Negative); RBC,Urine 6 /hpf (0-5); Specific Gravity,Urine 1.017 (1.001-1.035); Squamous Epithelial Cell,Urine <1 /hpf (0-4); Urobilinogen,Urine <2.0 mg/dL (<2.0); WBC,Urine 1 /hpf (0-5)
--- NOTE | 2020-08-07 10:32 | P.CONS ---
History of Present Illness - Reason for Consult Consult date: 08/06/20 Abdominal pain Requesting physician: Willi Chase - Chief Complaint Abdominal pain - History of Present Illness 64-year-old male with a medical history significant for coronary artery disease, prior DVT, COPD, chronic lower back pain, hyperlipidemia, hypertension and frequent visits to the emergency department who presented with complaints of abdominal pain, nausea and vomiting. The patient reports 1 day of abdominal pain described as in the epigastric region of his abdomen, sharp and severe with associated nausea and vomiting. He reports 5-6 episodes of nausea and vomiting with associated diarrhea described as loose watery stool 4-5 times. He previously underwent endoscopic evaluation with EGD in 08/2019 significant for esophagitis, EGD in 11/2018 and EGD in 12/2019 with findings of mild gastritis all for similar symptoms. Colonoscopy in 11/21/2017. Her diverticulosis. Abdominal x-ray on presentation significant for evidence of possible ileus with computed tomography scan of the abdomen showing mild fluid distention in the small bowel in the lower and mid abdomen suggestive of possible ileus. On presentation hemoglobin 14.3, WBC 7.7, platelet count 501,000 with amylase 115 and lipase 115 with stool testing positive for occult blood. Review of Systems REVIEW OF SYSTEMS: CONSTITUTIONAL: Denies any fevers, chills, weight change or fatigue. CARDIOVASCULAR: Denies any chest pain, palpitations high or low blood pressures RESPIRATORY: Denies any shortness of breath, hemoptysis or cough. GENITOURINARY: No dysuria or hematuria. MUSCULOSKELETAL: No weakness reported, chronic back pain. SKIN: Denies any new rashes or lesions, jaundice or pallor. PSYCHIATRIC: Denies any depression or anxiety. NEUROLOGY: Denies headache, denies any new focal deficits. EARS/NOSE/THROAT: No recent hearing change, congestion, nasal discharge or sore throat. EYES: No pain in eyes, discharge or change in vision. GASTROINTESTINAL: As per HPI. Past Medical History Past Medical History: Coronary Artery Disease (CAD), Chest Pain / Angina, COPD, Deep Vein Thrombosis (DVT), GERD/Reflux, Hyperlipidemia, Hypertension, Osteoarthritis (OA), Thyroid Disorder Additional Past Medical History / Comment(s): Occasional palpitations, gastritis, small hiatal hernia, diverticular dx, pt states years ago he had PUD, chronic low back pain, chronic pain syndrome, migraines, DVT L arm, numbness/tingling bilateral lower legs, bilateral past R hand fracture, arthritis multiple joints, hyperthyroid, sinus problems. History of Any Multi-Drug Resistant Organisms: None Reported Past Surgical History: Back Surgery, Cholecystectomy, Heart Catheterization With Stent, Orthopedic Surgery Additional Past Surgical History / Comment(s): EGDs/colonoscopies, multiple low back surgeries, bilateral arm and bilateral thigh surgeries for brown recluse spider bites with infection, morphine pain pump insertion and removal due to infection, PCI with stents, L rotator cuff repair, L knee arthroscopy, cervical fusion/cage, R cataract removal. Past Anesthesia/Blood Transfusion Reactions: No Reported Reaction Additional Past Anesthesia/Blood Transfusion Reaction / Comm: Pt states after cervical fusion he "" in the recovery room but does not know cause- he was"gone for 8 minutes" and states he was resusitated. Pt received blood after back surgery and tolerated it well. Date of Last Stent Placement:: 10/12/17 Past Psychological History: No Psychological Hx Reported Smoking Status: Never smoker Past Alcohol Use History: None Reported Past Drug Use History: None Reported - Past Family History Father Family Medical History: No Reported History Additional Family Medical History / Comment(s): Father had back problems. He lived to be 82 yrs old. Mother History Unknown: Yes Family Medical History: Hypertension, Myocardial Infarction ([place]) Additional Family Medical History / Comment(s): Mother of a [place] at the age of 55yrs. Brother(s) Family Medical History: Cancer, COPD Additional Family Medical History / Comment(s): Leukemia Medications and Allergies Home Medications Medication Instructions Recorded Confirmed Type Fluticasone Nasal [place] [Flonase 1 spray EA NOSTRIL BID PRN 04/20/17 08/06/20 History Nasal [place]] Morphine Sulfate ER [Ms Contin] 30 mg PO Q8H 10/10/17 08/06/20 History Atorvastatin [Lipitor] 80 mg PO HS #30 tab 10/12/17 08/06/20 Rx tiZANidine [Zanaflex] 4 mg PO TID PRN 02/26/18 08/06/20 History cloNIDine HCL [Catapres] 0.1 mg PO BID #60 tab 02/08/19 08/06/20 Rx Ezetimibe [Zetia] 10 mg PO DAILY #30 tab 05/24/19 08/06/20 Rx amLODIPine [Norvasc] 5 mg PO BID #60 tab 05/24/19 08/06/20 Rx Nitroglycerin Sl Tabs [Nitrostat] 0.4 mg SUBLINGUAL Q5M PRN #20 tab 07/02/19 08/06/20 Rx Aspirin EC [Ecotrin Low Dose] 81 mg PO DAILY 01/02/20 08/06/20 History Gabapentin [Neurontin] 300 mg PO TID 01/02/20 08/06/20 History carvediloL [Coreg*] 12.5 mg PO AC-BID 01/02/20 08/06/20 History oxyCODONE-APAP 10-325MG [Percocet 1 tab PO Q8H PRN 01/02/20 08/06/20 History 10-325 mg] Dicyclomine [Bentyl] 10 mg PO QID PRN #90 cap 05/30/20 08/06/20 Rx Pantoprazole Sodium [Protonix] 40 mg PO DAILY #90 tab 05/30/20 08/06/20 Rx Prasugrel [Effient] 10 mg PO DAILY 08/06/20 08/06/20 History lisinopriL 40 mg PO DAILY 08/06/20 08/06/20 History Allergies Allergy/AdvReac Type Severity Reaction Status Date / Time ibuprofen [From Motrin] Allergy Rash/Hives Verified 07/17/20 06:36 ketorolac tromethamine Allergy Rash/Hives Verified 07/17/20 06:36 [From Toradol] Physical Exam Vitals: Vital Signs Temp Pulse Pulse Pulse Resp BP BP 08/06/20 13:00 98.6 F 93 16 174/83 08/06/20 06:31 98.6 F 82 16 188/90 08/06/20 06:12 97.7 F 92 18 177/102 08/06/20 04:45 90 18 172/92 08/06/20 01:09 98.5 F 75 20 164/94 Pulse Ox 08/06/20 13:00 98 08/06/20 06:31 95 08/06/20 06:12 100 08/06/20 04:45 100 08/06/20 01:09 99 Intake and Output 08/05/20 08/06/20 08/06/20 22:59 06:59 14:59 Other: Weight 79.379 kg On physical examination, patient appears comfortable in no apparent distress. HEAD: Normocephalic, atraumatic. EYES: No scleral icterus. No conjunctival injection. MOUTH: No lesions, tongue midline. NECK: Trachea midline, no gross abnormalities. CHEST: Clear to auscultation with no wheezing or rhonchi appreciated. HEART: S1-S2 appreciated. ABDOMEN: Soft, thin and nontender to palpation. Bowel sounds are positive. No organomegaly. No guarding or rigidity. EXTREMITIES: No pedal edema. SKIN: No rashes, no jaundice. NEUROLOGIC: Alert and oriented x3. No focal deficits. Results CBC & Chem 7: 08/06/20 01:45 08/06/20 01:45 Labs: Abnormal Lab Results - Last 24 Hours (Table) 08/06/20 08/06/20 Range/Units 01:45 01:45 MCHC 30.9 L (31.0-37.0) g/dL Plt Count 501 H (150-450) k/uL Chloride 109 H (98-107) mmol/L Glucose 137 H (74-99) mg/dL Calcium 10.6 H (8.4-10.2) mg/dL Total Protein 9.1 H (6.3-8.2) g/dL Albumin 5.4 H (3.5-5.0) g/dL Amylase 115 H (30-110) U/L CT scan - abdomen: report reviewed (Computed tomography scan of the abdomen with findings of some mild small bowel distention suggestive of possible ileus with n o obstruction seen.) Assessment and Plan (1) Abdominal pain Narrative/Plan: 64-year-old male who presented to the hospital with complaints of epigastric abdominal pain, nausea and vomiting and loose bowel movements. He reports symptoms over the past 2 days with multiple episodes of loose nonbloody bowel movements and multiple episodes of vomiting. Computed tomography scan of the abdomen showed mild fluid distention in the small bowel suggestive of mild ileus with no obstruction seen. He's had multiple upper endoscopies in the past with the last in 12/2019 significant for mild gastritis and his last colonoscopy was in 10/2017 with diverticulosis noted. Hemoglobin normal presentation at 14.3 with normal amylase and lipase. Unclear if symptoms are secondary to ileus, functional bowel disorder, gastroenteritis or other etiology. Current Visit: Yes Status: Acute Code(s): R10.9 - UNSPECIFIED ABDOMINAL PAIN SNOMED Code(s): 65756650 (2) Diarrhea Current Visit: Yes Status: Acute Code(s): R19.7 - DIARRHEA, UNSPECIFIED SNOMED Code(s): 23460701 (3) Nausea & vomiting Current Visit: Yes Status: Acute Code(s): R11.2 - NAUSEA WITH VOMITING, UNSPECIFIED SNOMED Code(s): 93067088 Plan: Supportive care Nothing by mouth Protonix increased to twice daily Dicyclomine added for abdominal pain Surgical service consult. Continue IV fluid hydration Judicious use of pain medications as it could worsen symptoms Further recommendations pending clinical course Small bowel follow-through ordered by surgical service tomorrow Thank you for allowing us to participate in the care of the patient
[2020-08-07] MEDS: hydrALAZINE HCL 20 MG/ML 1 ML VIAL IVP PRN (12:00)
--- NOTE | 2020-08-07 13:33 | P.PN ---
Subjective Progress Note Date: 08/07/20 Principal diagnosis: Abdominal Pain, mild ileus A shunt seen and examined at the bedside. Upon entering the room patient was asleep however then started to moan in pain. States he has diffuse abdominal pain and nausea. Denies any bowel movements or flatus. He continues to receive Reglan, Protonix, dicyclomine, and pain medications. The patient underwent upper GI and small bowel series, results are pending. Objective - Vital Signs Vital signs: Vital Signs Temp 97.3 F L 08/07/20 12:00 Pulse 89 08/07/20 13:14 Resp 15 08/07/20 12:00 BP 158/80 08/07/20 13:14 Pulse Ox 98 08/07/20 12:00 Intake & Output 08/06/20 08/07/20 08/07/20 18:59 06:59 18:59 Intake Total 600 950 Output Total 150 Balance 450 950 Weight 79.379 kg Intake: Intake, IV Titration 600 950 Amount Promethazine Inj 25 mg In 50 Sodium Chloride 0.9% 50 ml @ 200 mls/hr IVPB Q6HR PRN Rx#:[id number] Sodium Chloride 0.9% 1, 600 900 000 ml @ 100 mls/hr IV . Q10H YESICA Rx#:[id number] Output: Emesis 150 Other: Voiding Method Toilet Toilet # Voids 1 - Exam General appearance: The patient is alert, oriented, in no acute distress. HET: Head is normocephalic and atraumatic. Conjunctiva pink. Sclera anicteric. Neck: Supple without lymphadenopathy. Trachea midline. Heart: S1 S2. Regular rate and rhythm. Lungs: No crackles or wheezes are heard. Abdomen: Soft, diffuse tenderness to palpation, nondistended with bowel sounds. No peritoneal signs. No palpable organomegaly or masses. Extremities: Normal skin color and turgor. No pedal edema. Neurological: No focal deficits. Alert and oriented 3. - Labs CBC & Chem 7: 08/06/20 01:45 08/06/20 01:45 Labs: Abnormal Lab Results - Last 24 Hours (Table) 08/07/20 Range/Units 08:13 Urine Ketones 1+ H (Negative) Urine Blood Trace H (Negative) Urine RBC 6 H (0-5) /hpf Urine Mucus Rare H (None) /hpf Assessment and Plan Assessment: (1) Abdominal pain Narrative/Plan: 64-year-old male who presented to the hospital with complaints of epigastric abdominal pain, nausea and vomiting and loose bowel movements. He reports symptoms over the past 2 days with multiple episodes of loose nonbloody bowel movements and multiple episodes of vomiting. Computed tomography scan of the abdomen showed mild fluid distention in the small bowel suggestive of mild ileus with no obstruction seen. He's had multiple upper endoscopies in the past with the last in 12/2019 significant for mild gastritis and his last colonoscopy was in 10/2017 with diverticulosis noted. Hemoglobin normal presentation at 14.3 with normal amylase and lipase. Unclear if symptoms are secondary to ileus, functional bowel disorder, gastroenteritis or other etiology. Current Visit: Yes Status: Acute Code(s): R10.9 - UNSPECIFIED ABDOMINAL PAIN SNOMED Code(s): 84089197 (2) Diarrhea Current Visit: Yes Status: Acute Code(s): R19.7 - DIARRHEA, UNSPECIFIED SNOMED Code(s): 58068016 (3) Nausea & vomiting Current Visit: Yes Status: Acute Code(s): R11.2 - NAUSEA WITH VOMITING, UNSPECIFIED SNOMED Code(s): 32917726 Plan: Supportive care Nothing by mouth Protonix increased to twice daily Dicyclomine added for abdominal pain Surgical service consult. Continue IV fluid hydration Judicious use of pain medications as it could worsen symptoms Further recommendations pending clinical course Small bowel follow-through ordered by surgical service, pending results Thank you for allowing us to participate in the care of the patient The impression and plan of care has been dictated as directed. Dr. Neisha Simmons I performed a history and examination of this patient, discussed the same with the dictator. I agree with the dictator's note ,documented as a scribe. Any additional findings or plans will be noted.
--- NOTE | 2020-08-07 14:31 | P.PN ---
Subjective Progress Note Date: 08/07/20 Principal diagnosis: Abdominal pain The patient is seen on rounds. He continues to complain of abdominal pain. Complains of nausea. No vomiting. No diarrhea. The patient underwent an upper GI/small bowel series. The results are pending. Complained of pain with drinking the barium. Objective - Vital Signs Vital signs: Vital Signs Temp 97.3 F L 08/07/20 12:00 Pulse 89 08/07/20 13:14 Resp 15 08/07/20 12:00 BP 158/80 08/07/20 13:14 Pulse Ox 98 08/07/20 12:00 Intake & Output 08/06/20 08/07/20 08/07/20 18:59 06:59 18:59 Intake Total 600 950 700 Output Total 150 Balance 450 950 700 Weight 79.379 kg Intake: Intake, IV Titration 600 950 700 Amount Promethazine Inj 25 mg In 50 Sodium Chloride 0.9% 50 ml @ 200 mls/hr IVPB Q6HR PRN Rx#:[id number] Sodium Chloride 0.9% 1, 600 900 700 000 ml @ 100 mls/hr IV . Q10H [facility] Rx#:[id number] Output: Emesis 150 Other: Voiding Method Toilet Toilet # Voids 1 - Constitutional General appearance: Present: cooperative, no acute distress - Respiratory Respiratory: bilateral: CTA - Cardiovascular Rhythm: regular - Gastrointestinal General gastrointestinal: Present: normal bowel sounds (Good bowel sounds), soft, tenderness (Generalized, no tympany or pain to percussion) - Labs CBC & Chem 7: 08/06/20 01:45 08/06/20 01:45 Labs: Abnormal Lab Results - Last 24 Hours (Table) 08/07/20 Range/Units 08:13 Urine Ketones 1+ H (Negative) Urine Blood Trace H (Negative) Urine RBC 6 H (0-5) /hpf Urine Mucus Rare H (None) /hpf - Imaging and Cardiology I personally reviewed the abdominal x-rays. I see no obvious small bowel distention. The contrast goes through to the right colon. Assessment and Plan (1) Diarrhea Current Visit: Yes Status: Acute Code(s): R19.7 - DIARRHEA, UNSPECIFIED SNOMED Code(s): 62283656 (2) Abdominal pain Current Visit: Yes Status: Acute Code(s): R10.9 - UNSPECIFIED ABDOMINAL PAIN SNOMED Code(s): 48883588 (3) Nausea & vomiting Current Visit: Yes Status: Acute Code(s): R11.2 - NAUSEA WITH VOMITING, UNSPECIFIED SNOMED Code(s): 75193300 (4) Heme positive stool Current Visit: Yes Status: Acute Code(s): R19.5 - OTHER FECAL ABNORMALITIES SNOMED Code(s): 63045598 (5) History of gastric ulcer Current Visit: No Status: Acute Code(s): Z87.19 - PERSONAL HISTORY OF OTHER DISEASES OF THE DIGESTIVE SYSTEM SNOMED Code(s): 208367814 (6) CAD (coronary artery disease) Current Visit: No Status: Chronic Code(s): I25.10 - ATHSCL HEART DISEASE OF [place] CORONARY ARTERY W/O ANG PCTRS SNOMED Code(s): 88761020 Plan: Subjectively the patient still has abdominal pain. His vomiting and diarrhea have subsided. I recommend supportive care. Covid testing is pending. Currently nonsurgical. Clear liquids could be started with the patient feels he could tolerate this
--- NOTE | 2020-08-07 14:46 | P.PN ---
Subjective Progress Note Date: 08/07/20 Principal diagnosis: Nausea vomiting Patient says that he continues to have nausea or vomiting. However nuse states that she has not seen him vomiting. Patient is requesting to increase his pain medication. I told patient that is ALLERGIC to Toradol and my only option is opioids and unfortunately this can cause his ileus to worsen. So I told the patient that for now I cannot increase his pain meds as it could make his symptoms worse. Patient then said to keep the same pain medication regimen. I ordered a small bowel follow-through study that is pending. Objective - Vital Signs Vital signs: Vital Signs Temp 97.3 F L 08/07/20 12:00 Pulse 89 08/07/20 13:14 Resp 15 08/07/20 12:00 BP 158/80 08/07/20 13:14 Pulse Ox 98 08/07/20 12:00 Intake & Output 08/06/20 08/07/20 08/07/20 18:59 06:59 18:59 Intake Total 600 950 700 Output Total 150 Balance 450 950 700 Weight 79.379 kg Intake: Intake, IV Titration 600 950 700 Amount Promethazine Inj 25 mg In 50 Sodium Chloride 0.9% 50 ml @ 200 mls/hr IVPB Q6HR PRN Rx#:[id number] Sodium Chloride 0.9% 1, 600 900 700 000 ml @ 100 mls/hr IV . 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 Psych - Calm and cooperative - Labs CBC & Chem 7: 08/06/20 01:45 08/06/20 01:45 Labs: Abnormal Lab Results - Last 24 Hours (Table) 08/07/20 Range/Units 08:13 Urine Ketones 1+ H (Negative) Urine Blood Trace H (Negative) Urine RBC 6 H (0-5) /hpf Urine Mucus Rare H (None) /hpf Assessment and Plan Assessment: #Intractable nausea and vomiting with abdominal pain, unclear etiology -Anti-emetics -NPO for now -GI and surgical consult -Follow up on small bowel follow-through study -IV fluids #Chronic conditions: Coronary artery disease, COPD, hypertension, hyperlipidemia -Continue with home meds DVT prophylaxis -IPCDs
--- NOTE | 2020-08-07 16:48 | FL ---
EXAMINATION TYPE: FL UGI air w small bowel DATE OF EXAM: 08/07/2020 COMPARISON: CT abdomen pelvis 08/06/2020 HISTORY: Nausea and vomiting TECHNIQUE: A double contrast UGI study is performed with small bowel follow through. FINDINGS: Supervisor Type Photography image of the abdomen demonstrates nonspecific bowel gas pattern, no pneumoperitoneum , right upper quadrant surgical clips, and lumbosacral fusion hardware. Upper GI exam is somewhat limited due to patient inability to drink additional contrast with vomiting . Esophagus shows mildly delayed emptying into the stomach with minimal narrowing at the GE junction. F henry esophagus mucosal pattern is seen (image 5 and 6 of 26). No evidence of hiatal hernia. The stomach shows normal distensibility. There are somewhat prominent mucosal folds, which may be acc entuated by decreased distention by oral contrast due to patient intolerance. Moderate spontaneous ga stroesophageal reflux was seen during real time performance of this study. The duodenal bulb and sweep are unremarkable. The small bowel study shows normal transit to the colon in less than 125 minutes. There is normal mu cosal fold pattern throughout the small bowel. Total fluoroscopy time 1 minute 30 seconds. Total images obtained 26. IMPRESSION: 1. Somewhat Limited upper GI portion of exam due to patient inability to drink additional contrast du e to vomiting. 2. Moderate spontaneous gastroesophageal reflux seen throughout the examination. 3. Mildly delayed gastroesophageal emptying, feline esophagus mucosal pattern, and mild narrowing at the GE junction. These findings may be due to gastroesophageal reflux. 4. Mildly prominent mucosal folds of the stomach may be accentuated by decreased distention with oral contrast. 5. Normal small bowel follow through with no evidence of ileus or obstruction.
[2020-08-07] MEDS: ACETAMINOPHEN TAB 325 MG TAB PO PRN (17:29)
[2020-08-07] MEDS: PROMETHAZINE INJ 25 MG in SODIUM CHLORIDE 0.9% 50 ML IVPB PRN (17:31)
[2020-08-07 19:25] LABS: African American GFR (CKD) 110.2 (60.0-200.0); Albumin 4.8 g/dL (3.80-4.90); Albumin/Globulin Ratio 2.29 (1.60-3.17); BUN/Creat Ratio 16.25 Ratio (12.00-20.00); Calcium 9.7 mg/dL (8.7-10.3); Globulin 2.1 g/dL (1.6-3.3); Non-African American GFR(CKD) 95.1 (60.0-200.0); Potassium 3.5 mmol/L (3.5-5.5); Total Bilirubin 0.7 mg/dL (0.2-1.2); Total Protein 6.9 g/dL (6.2-8.2)
[2020-08-07] MEDS: ATORVASTATIN 80 MG TAB PO SCH (20:03)
[2020-08-07] MEDS: oxyCODONE-APAP 10-325MG 1 EACH TAB PO PRN (20:03)
[2020-08-07] MEDS: MORPHINE SULFATE ER 30 MG TABLET PO SCH (21:21)
[2020-08-08] MEDS: oxyCODONE-APAP 10-325MG 1 EACH TAB PO PRN ×2 (04:21→15:35)
[2020-08-08 05:04] LABS: HCT 43.4 % (39.0-53.0); HGB 13.8 gm/dL (13.0-17.5); MCH 28.8 pg (25.0-35.0); MCHC 31.7 g/dL (31.0-37.0); MCV 90.8 fL (80.0-100.0); Mean Platelet Volume 6.5; Platelet Count 367 k/uL (150-450); RBC 4.78 m/uL (4.30-5.90); RDW 14.5 % (11.5-15.5); WBC 8.2 k/uL (3.8-10.6)
[2020-08-08] MEDS: SODIUM CHLORIDE 0.9% 1,000 ML IV SCH ×2 (05:31→17:57)
[2020-08-08] MEDS: PROMETHAZINE INJ 25 MG in SODIUM CHLORIDE 0.9% 50 ML IVPB PRN ×3 (05:31→21:05)
[2020-08-08] MEDS: PANTOPRAZOLE 40 MG/10 ML VIAL IVP SCH ×2 (09:00→23:35)
[2020-08-08] MEDS: METOCLOPRAMIDE 5 MG/ML 2 ML VIAL IVP PRN ×2 (09:00→23:12)
[2020-08-08] MEDS ORDERED: TRIMETHOBENZAMIDE 100 MG/ML 2 ML VIAL IM PRN (09:04)
[2020-08-08 09:49] LABS: Albumin 4.3 g/dL (3.80-4.90); Albumin/Globulin Ratio 2.39 (1.60-3.17); Anion Gap 10.3 mmol/L (4.00-12.00); Carbon Dioxide 20.7 mmol/L (21.6-31.8); Globulin 1.8 g/dL (1.6-3.3); Potassium 3.9 mmol/L (3.5-5.5); Total Protein 6.1 g/dL (6.2-8.2)
[2020-08-08] MEDS: MORPHINE SULFATE ER 30 MG TABLET PO SCH ×2 (11:07→20:25)
--- NOTE | 2020-08-08 12:27 | XR ---
EXAMINATION TYPE: XR abdomen 1V DATE OF EXAM: 08/08/2020 COMPARISON: 05/22/2020 HISTORY: Nausea and vomiting TECHNIQUE: One view abdominal series FINDINGS: The osseous structures are intact. The bowel gas pattern is nonspecific. Postsurgical changes involv ing the vertebral column. Diffuse osteopenia. Arthritic change of the hips. Contrast within the colon noted. Lung bases demonstrate no significant consolidation. Surgical clips in the gallbladder fossa. . IMPRESSION: 1. Nonspecific abdomen. Contrast is seen within the colon.
--- NOTE | 2020-08-08 13:02 | P.PN ---
Subjective Progress Note Date: 08/08/20 Principal diagnosis: Nausea vomiting Patient states that last night his nausea and vomiting had improved however this morning he states that he is nauseous again and vomited. Patient is requesting IV pain medication. His home medications are morphine 30 mg extended release 3 times a day and Percocet 3 times a day. I told him that I'm not comfortable adding any more IV pain medication since he is on heavy doses of opioids as his home regimen. His abdominal x-ray was unremarkable. The GI follow-through study done yesterday showed no obstruction however did show findings consistent with acid reflux. Objective - Vital Signs Vital signs: Vital Signs Temp 98.4 F 08/08/20 08:48 Pulse 93 08/08/20 05:00 Resp 18 08/08/20 05:00 BP 164/94 08/08/20 05:00 Pulse Ox 99 08/08/20 05:00 Intake & Output 08/07/20 08/08/20 08/08/20 18:59 06:59 18:59 Intake Total 700 1490 Output Total 625 Balance 700 865 Intake: Intake, IV Titration 700 900 Amount Sodium Chloride 0.9% 1, 700 900 000 ml @ 100 mls/hr IV . Q10H [facility] Rx#:[id number] Oral 590 Output: Urine 625 Other: Voiding Method Toilet Toilet # Voids 1 - Exam General examination - Alert and Oriented 3 in NAD Heart - + S1S2 no murmurs Lungs - Clear to auscultation Abdomen diffuse tenderness to palpate with mild palpation, diminished bowel sounds Extremities - No edema [employer] - Moving all 4 extremities spontaneously Psych - Calm and cooperative - Labs CBC & Chem 7: 08/08/20 04:55 08/08/20 04:55 Labs: Abnormal Lab Results - Last 24 Hours (Table) 08/07/20 08/08/20 Range/Units 12:49 04:55 Sodium 146 H (135-145) mmol/L Chloride 110 H (96-109) mmol/L Carbon Dioxide 20.7 L (21.6-31.8) mmol/L Glucose 121 H (70-110) mg/dL ALT 8 L (10-49) U/L Total Protein 6.1 L (6.2-8.2) g/dL Assessment and Plan Assessment: #Intractable nausea and vomiting with abdominal pain likely due to gastritis -Initial CT abdomen and pelvis showed findings consistent with mild ileus. Patient had follow-up small bowel follow through study done that showed no obstruction. Patient had a repeat abdominal x-ray on 08/08/2020 that showed no obstruction. -Anti-emetics -Clear liquid diet as per surgery -Awaiting for further recommendations from GI to see patient will need EGD. Patient has had multiple EGDs in the past that showed gastritis -Avoid IV pain medication -IV fluids #Chronic back pain -I confirmed in the PDMP that patient is on morphine 30 mg extended release 3 times a day and Percocet 10/325 mg 3 times a day as needed. We will decrease morphine to 2 times a day. #Chronic conditions: Coronary artery disease, COPD, hypertension, hyperlipidemia -Continue with home meds DVT prophylaxis -IPCDs
[2020-08-08] MEDS: GABAPENTIN 300 MG CAP PO SCH ×3 (13:13→21:00)
[2020-08-08] MEDS: amLODIPine 5 MG TAB PO SCH ×2 (13:14→20:59)
[2020-08-08] MEDS: carvediloL 12.5 MG TAB PO SCH ×2 (13:14→17:57)
[2020-08-08] MEDS: cloNIDine HCL 0.1 MG TAB PO SCH ×2 (13:14→20:59)
[2020-08-08] MEDS: lisinopriL 20 MG TAB PO SCH (13:17)
[2020-08-08] MEDS: EZETIMIBE 10 MG TAB PO SCH (13:17)
--- NOTE | 2020-08-08 13:50 | P.PN ---
Subjective Progress Note Date: 08/08/20 Principal diagnosis: Abdominal Pain, mild ileus Patient was seen and examined at the bedside. He underwent upper GI which was somewhat limited due to the patient's inability to drink additional contrast due to vomiting. Moderate spontaneous gastroesophageal reflux seen throughout the examination. Mildly delayed gastroesophageal emptying, feline esophagus this mucosal pattern with mild narrowing at the GE junction. Mildly prominent mucosal folds of the stomach may be accentuated by decreased distention with oral contrast. Normal small bowel follow-through with no evidence of ileus or obstruction. Objective - Vital Signs Vital signs: Vital Signs Temp 98.4 F 08/08/20 08:48 Pulse 93 08/08/20 05:00 Resp 18 08/08/20 05:00 BP 164/94 08/08/20 05:00 Pulse Ox 99 08/08/20 05:00 Intake & Output 08/07/20 08/08/20 08/08/20 18:59 06:59 18:59 Intake Total 700 1490 Output Total 625 Balance 700 865 Intake: Intake, IV Titration 700 900 Amount Sodium Chloride 0.9% 1, 700 900 000 ml @ 100 mls/hr IV . Q10H [facility] Rx#:[id number] Oral 590 Output: Urine 625 Other: Voiding Method Toilet Toilet # Voids 1 - Exam General appearance: The patient is alert, oriented, in no acute distress. HET: Head is normocephalic and atraumatic. Conjunctiva pink. Sclera anicteric. Neck: Supple without lymphadenopathy. Trachea midline. Heart: S1 S2. Regular rate and rhythm. Lungs: No crackles or wheezes are heard. Abdomen: Soft, diffuse tenderness to palpation, nondistended with bowel sounds. No peritoneal signs. No palpable organomegaly or masses. Extremities: Normal skin color and turgor. No pedal edema. Neurological: No focal deficits. Alert and oriented 3. - Labs CBC & Chem 7: 08/08/20 04:55 08/08/20 04:55 Labs: Abnormal Lab Results - Last 24 Hours (Table) 08/07/20 08/08/20 Range/Units 12:49 04:55 Sodium 146 H (135-145) mmol/L Chloride 110 H (96-109) mmol/L Carbon Dioxide 20.7 L (21.6-31.8) mmol/L Glucose 121 H (70-110) mg/dL ALT 8 L (10-49) U/L Total Protein 6.1 L (6.2-8.2) g/dL Assessment and Plan Assessment: (1) Abdominal pain Narrative/Plan: 64-year-old male who presented to the hospital with complaints of epigastric abdominal pain, nausea and vomiting and loose bowel movements. He reports symptoms over the past 2 days with multiple episodes of loose nonbloody bowel movements and multiple episodes of vomiting. Computed tomography scan of the abdomen showed mild fluid distention in the small bowel suggestive of mild ileus with no obstruction seen. He's had multiple upper endoscopies in the past with the last in 12/2019 significant for mild gastritis and his last colonoscopy was in 10/2017 with diverticulosis noted. Hemoglobin normal presentation at 14.3 with normal amylase and lipase. Unclear if symptoms are secondary to ileus, functional bowel disorder, gastroenteritis or other etiology. Upper GI was limited due to the patient's inability to drink additional contrast. Moderate spontaneous gastroesophageal reflux seen throughout the examination. Was mildly delayed gastroesophageal emptying, feeling esophagus mucosal pattern, and mild narrowing at the GE junction. These findings may be due to gastroesophageal reflux. Mildly prominent mucosal folds of the stomach may be accentuated by decreased distention with oral contrast. There is normal small bowel follow-through with no evidence of ileus or obstruction. Current Visit: Yes Status: Acute Code(s): R10.9 - UNSPECIFIED ABDOMINAL PAIN SNOMED Code(s): 65117723 (2) Diarrhea Current Visit: Yes Status: Acute Code(s): R19.7 - DIARRHEA, UNSPECIFIED SNOMED Code(s): 75091060 (3) Nausea & vomiting Current Visit: Yes Status: Acute Code(s): R11.2 - NAUSEA WITH VOMITING, UNSPECIFIED SNOMED Code(s): 66080235 Plan: Supportive care Encouraged patient to sit up and ambulate Diet as tolerated Protonix increased to twice daily Dicyclomine added for abdominal pain Surgical service consult. Continue IV fluid hydration Continue with anti-emetics, Tigan orders as needed for breakthrough nausea and vomiting. Judicious use of pain medications as it could worsen symptoms Further recommendations pending clinical course Small bowel follow-through ordered by surgical service, reviewed Thank you for allowing us to participate in the care of the patient The impression and plan of care has been dictated as directed. Dr. K Tumma I performed a history and examination of this patient, discussed the same with the dictator. I agree with the dictator's note ,documented as a scribe. Any additional findings or plans will be noted.
--- NOTE | 2020-08-08 15:14 | P.PN ---
Subjective Progress Note Date: 08/08/20 Principal diagnosis: Abdominal pain The patient is seen on rounds. He has persistent nausea and vomiting. No diarrhea. Complaining of epigastric pain. Also complaining of chronic back pain. He's been on MS Contin for multiple years due to chronic back pain. Objective - Vital Signs Vital signs: Vital Signs Temp 98.4 F 08/08/20 08:48 Pulse 93 08/08/20 05:00 Resp 18 08/08/20 05:00 BP 164/94 08/08/20 05:00 Pulse Ox 99 08/08/20 05:00 Intake & Output 08/07/20 08/08/20 08/08/20 18:59 06:59 18:59 Intake Total 700 1490 Output Total 625 Balance 700 865 Intake: Intake, IV Titration 700 900 Amount Sodium Chloride 0.9% 1, 700 900 000 ml @ 100 mls/hr IV . Q10H [facility] Rx#:[id number] Oral 590 Output: Urine 625 Other: Voiding Method Toilet Toilet # Voids 1 - Constitutional Constitutional Comment(s): Appears uncomfortable General appearance: Present: cooperative - Respiratory Respiratory: bilateral: CTA - Cardiovascular Rhythm: regular - Gastrointestinal Gastrointestinal Comment(s): Mild voluntary guarding without rebound General gastrointestinal: Present: normal bowel sounds, soft. Absent: distended - Labs CBC & Chem 7: 08/08/20 04:55 08/08/20 04:55 Labs: Abnormal Lab Results - Last 24 Hours (Table) 08/07/20 08/08/20 Range/Units 12:49 04:55 Sodium 146 H (135-145) mmol/L Chloride 110 H (96-109) mmol/L Carbon Dioxide 20.7 L (21.6-31.8) mmol/L Glucose 121 H (70-110) mg/dL ALT 8 L (10-49) U/L Total Protein 6.1 L (6.2-8.2) g/dL - Imaging and Cardiology Abdominal x-ray: report reviewed, image reviewed Assessment and Plan (1) Nausea & vomiting Current Visit: Yes Status: Acute Code(s): R11.2 - NAUSEA WITH VOMITING, UNSPECIFIED SNOMED Code(s): 15866477 (2) Abdominal pain Current Visit: Yes Status: Acute Code(s): R10.9 - UNSPECIFIED ABDOMINAL PAIN SNOMED Code(s): 37765505 (3) Heme positive stool Current Visit: Yes Status: Acute Code(s): R19.5 - OTHER FECAL ABNORMALITIES SNOMED Code(s): 38058667 (4) History of gastric ulcer Current Visit: No Status: Acute Code(s): Z87.19 - PERSONAL HISTORY OF OTHER DISEASES OF THE DIGESTIVE SYSTEM SNOMED Code(s): 773236105 (5) CAD (coronary artery disease) Current Visit: No Status: Chronic Code(s): I25.10 - ATHSCL HEART DISEASE OF [place] CORONARY ARTERY W/O ANG PCTRS SNOMED Code(s): 08246054 (6) Diarrhea Current Visit: Yes Status: Acute Code(s): R19.7 - DIARRHEA, UNSPECIFIED SNOMED Code(s): 99102808 Plan: The patient has persistent nausea and vomiting along with abdominal pain. Workup so far has been unremarkable. Lab is been unremarkable. CT failed to show any acute inflammatory process in the abdomen. I personally reviewed the CT again don't see any signs of atherosclerosis of the abdominal aorta or celiac axis which could indicate celiac artery obstruction and abdominal angina. He has had previous cholecystectomy. No signs of pancreatitis. No sign of bowel obstruction on upper GI. There was some reflux of contrast into the esophagus. He doesn't have diabetes or any recent history of persistent nausea and vomiting the last few months which would indicate gastroparesis. Likely a viral syndrome. Recommend supportive care. Continue pain medication for his chronic back pain. Add Carafate in case there is some gastritis contributing to the nausea and vomiting.
[2020-08-08] MEDS: SUCRALFATE 1 GM TAB PO SCH (17:57)
[2020-08-08] MEDS: hydrALAZINE HCL 20 MG/ML 1 ML VIAL IVP PRN (20:34)
[2020-08-08] MEDS: ATORVASTATIN 80 MG TAB PO SCH (20:59)
[2020-08-09] MEDS: oxyCODONE-APAP 10-325MG 1 EACH TAB PO PRN ×2 (00:35→15:05)
[2020-08-09] MEDS: SODIUM CHLORIDE 0.9% 1,000 ML IV SCH ×3 (00:36→23:24)
[2020-08-09] MEDS: ACETAMINOPHEN TAB 325 MG TAB PO PRN ×2 (01:01→20:06)
[2020-08-09] MEDS: PROMETHAZINE INJ 25 MG in SODIUM CHLORIDE 0.9% 50 ML IVPB PRN ×4 (04:09→23:22)
[2020-08-09 07:27] LABS: ALT 11 U/L (4-49); African American GFR (CKD) >90 (>60 ml/min/1.73 sqM); Albumin 4.5 g/dL (3.5-5.0); Albumin/Globulin Ratio 1.5; Anion Gap 14 mmol/L; Blood Urea Nitrogen 13 mg/dL (9-20); Calcium 9.5 mg/dL (8.4-10.2); Carbon Dioxide 18 mmol/L (22-30); Chloride 107 mmol/L (98-107); Glucose 121 mg/dL (74-99); Non-African American GFR(CKD) >90 (>60 ml/min/1.73 sqM); Sodium 139 mmol/L (137-145); Total Bilirubin 1.2 mg/dL (0.2-1.3); Total Protein 7.5 g/dL (6.3-8.2)
[2020-08-09 07:34] LABS: AST 39 U/L (17-59); Alkaline Phosphatase 63 U/L (38-126); Potassium 4.4 mmol/L (3.5-5.1)
[2020-08-09] MEDS: METOCLOPRAMIDE 5 MG/ML 2 ML VIAL IVP PRN (08:45)
[2020-08-09 08:46] LABS: HCT 47.2 % (39.0-53.0); HGB 14.9 gm/dL (13.0-17.5); Hypochromasia Slight; MCH 29.1 pg (25.0-35.0); MCHC 31.6 g/dL (31.0-37.0); MCV 91.9 fL (80.0-100.0); Mean Platelet Volume 6.6; Platelet Count 441 k/uL (150-450); RBC 5.14 m/uL (4.30-5.90); RDW 14.1 % (11.5-15.5); WBC 7.8 k/uL (3.8-10.6)
[2020-08-09] MEDS: MORPHINE SULFATE ER 30 MG TABLET PO SCH ×4 (08:46→20:06)
[2020-08-09] MEDS: PANTOPRAZOLE 40 MG/10 ML VIAL IVP SCH ×2 (08:46→22:56)
[2020-08-09] MEDS: carvediloL 12.5 MG TAB PO SCH ×2 (08:53→18:19)
[2020-08-09] MEDS: amLODIPine 5 MG TAB PO SCH ×2 (08:54→22:55)
[2020-08-09] MEDS: GABAPENTIN 300 MG CAP PO SCH ×3 (08:54→22:56)
[2020-08-09] MEDS: EZETIMIBE 10 MG TAB PO SCH (08:54)
[2020-08-09] MEDS: lisinopriL 20 MG TAB PO SCH (08:54)
[2020-08-09] MEDS: cloNIDine HCL 0.1 MG TAB PO SCH ×2 (08:54→22:56)
[2020-08-09] MEDS: SUCRALFATE 1 GM TAB PO SCH ×3 (08:54→15:06)
[2020-08-09] MEDS ORDERED: hydrALAZINE HCL 20 MG/ML 1 ML VIAL IVP PRN (09:44)
--- NOTE | 2020-08-09 12:28 | P.PN ---
Progress Note - Text Progress Note Date: 08/09/20 The patient continues to have persistent nausea and vomiting. Work-up to date has not shown any surgical cause. He has had previous cholecystectomy. No evidence of pancreatitis or any other acute inflammatory process was seen on his CT scan. His white count and chemistries are unremarkable unrevealing. No evidence of obstruction on his upper GI study. I spoke with GI. Dr. Simmons will likely do a EGD tomorrow. Surgically I do not feel that there is anything additional I can add. We will follow-up on a as needed basis
--- NOTE | 2020-08-09 14:15 | P.PN ---
Subjective Progress Note Date: 08/09/20 Patient is complaining of nausea and reported that he is unable to keep anything down. He said that his abdominal pain is not well controlled. He is on heavy doses opiate chronically secondary to chronic back pain. Patient did not take his blood pressure medication this morning as he was concerned that he may throw up. Objective - Vital Signs Vital signs: Vital Signs Temp 98.7 F 08/09/20 11:50 Pulse 114 H 08/09/20 11:50 Resp 17 08/09/20 11:50 BP 182/107 08/09/20 11:50 Pulse Ox 98 08/09/20 11:50 Intake & Output 08/08/20 08/09/20 08/09/20 18:59 06:59 18:59 Intake Total 800 1200 340 Output Total 1000 1000 Balance 800 200 -660 Intake: Intake, IV Titration 800 1200 Amount Promethazine Inj 25 mg In 150 Sodium Chloride 0.9% 50 ml @ 200 mls/hr IVPB Q6HR PRN Rx#:[id number] Sodium Chloride 0.9% 1, 800 1050 000 ml @ 100 mls/hr IV . Q10H [facility] Rx#:[id number] Oral 0 0 340 Output: Urine 700 700 Emesis 300 300 Other: Voiding Method Toilet Toilet Toilet # Voids 3 0 0 # Emeses 1 1 - Exam General: The patient is awake and alert, in no distress Eye: there is normal conjunctiva bilaterally. Neck: The neck is supple, there is no JVD. Cardiovascular: Normal S1-S2, no S3-S4, no murmurs. Respiratory: Lungs clear to auscultation bilaterally Gastrointestinal: Abdomen is soft, there is mild tenderness to palpation all over the abdomen Musculoskeletal: There is no pedal edema. Neurological:. Speech is normal. Skin: Skin is warm and dry - Labs CBC & Chem 7: 08/09/20 08:27 08/09/20 05:23 Labs: Abnormal Lab Results - Last 24 Hours (Table) 08/09/20 Range/Units 05:23 Carbon Dioxide 18 L (22-30) mmol/L Creatinine 0.61 L (0.66-1.25) mg/dL Glucose 121 H (74-99) mg/dL Assessment and Plan Assessment: This is a 64-year-old male with past medical history noted below who presented to the hospital with worsening abdominal pain, nausea, and vomiting. Patient was evaluated in the ER and admitted to the hospital for management of his medical problems noted below. #Intractable nausea and vomiting with abdominal pain likely due to gastritis -Initial CT abdomen and pelvis showed findings consistent with mild ileus. Patient had follow-up small bowel follow through study done that showed no obstruction. Patient had a repeat abdominal x-ray on 08/08/2020 that showed no obstruction. -Plan for EGD tomorrow. Nothing by mouth after midnight -Anti-emetics and pain control as needed -Clear liquid diet as per surgery -Patient has had multiple EGDs in the past that showed gastritis -Avoid IV pain medication -IV fluids #Chronic back pain -confirmed in the PDMP that patient is on morphine 30 mg extended release 3 times a day and Percocet 10/325 mg 3 times a day as needed. #Chronic conditions: Coronary artery disease, COPD, hypertension, hyperlipidemia -Continue with home meds GI and DVT prophylaxis -With IV Protonix and subcu heparin
--- NOTE | 2020-08-09 15:51 | P.PN ---
Subjective Progress Note Date: 08/09/20 Principal diagnosis: Abdominal Pain, mild ileus The patient was seen and examined at the bedside. Patient states his abdominal pain is the same, nausea and vomiting has improved slightly today. Patient states he has vomited 3 times today. did get up and shower, however states otherwise has been embedded. He states he is not able to tolerate taking any food or fluids in. He's been refusing his oral medications. He had a low- grade fever this morning, afebrile this afternoon. Objective - Vital Signs Vital signs: Vital Signs Temp 98.7 F 08/09/20 11:50 Pulse 114 H 08/09/20 11:50 Resp 17 08/09/20 11:50 BP 182/107 08/09/20 11:50 Pulse Ox 98 08/09/20 11:50 Intake & Output 08/08/20 08/09/20 08/09/20 18:59 06:59 18:59 Intake Total 800 1200 340 Output Total 1000 1000 Balance 800 200 -660 Intake: Intake, IV Titration 800 1200 Amount Promethazine Inj 25 mg In 150 Sodium Chloride 0.9% 50 ml @ 200 mls/hr IVPB Q6HR PRN Rx#:[id number] Sodium Chloride 0.9% 1, 800 1050 000 ml @ 100 mls/hr IV . Q10H [facility] Rx#:[id number] Oral 0 0 340 Output: Urine 700 700 Emesis 300 300 Other: Voiding Method Toilet Toilet Toilet # Voids 3 0 0 # Emeses 1 1 - Exam General appearance: The patient is alert, oriented, in no acute distress. HET: Head is normocephalic and atraumatic. Conjunctiva pink. Sclera anicteric. Neck: Supple without lymphadenopathy. Trachea midline. Heart: S1 S2. Regular rate and rhythm. Lungs: No crackles or wheezes are heard. Abdomen: Soft, diffuse tenderness to palpation, nondistended with bowel sounds. No peritoneal signs. No palpable organomegaly or masses. Extremities: Normal skin color and turgor. No pedal edema. Neurological: No focal deficits. Alert and oriented 3. - Labs CBC & Chem 7: 08/09/20 08:27 08/09/20 05:23 Labs: Abnormal Lab Results - Last 24 Hours (Table) 08/09/20 Range/Units 05:23 Carbon Dioxide 18 L (22-30) mmol/L Creatinine 0.61 L (0.66-1.25) mg/dL Glucose 121 H (74-99) mg/dL Assessment and Plan Assessment: (1) Abdominal pain Narrative/Plan: 64-year-old male who presented to the hospital with complaints of epigastric abdominal pain, nausea and vomiting and loose bowel movements. He reports symptoms over the past 2 days with multiple episodes of loose nonbloody bowel movements and multiple episodes of vomiting. Computed tomography scan of the abdomen showed mild fluid distention in the small bowel suggestive of mild ileus with no obstruction seen. He's had multiple upper endoscopies in the past with the last in 12/2019 significant for mild gastritis and his last colonoscopy was in 10/2017 with diverticulosis noted. Hemoglobin normal presentation at 14.3 with normal amylase and lipase. Unclear if symptoms are secondary to ileus, functional bowel disorder, gastroenteritis or other etiology. Upper GI was limited due to the patient's inability to drink additional contrast. Moderate spontaneous gastroesophageal reflux seen throughout the examination. Was mildly delayed gastroesophageal emptying, feeling esophagus mucosal pattern, and mild narrowing at the GE junction. These findings may be due to gastroesophageal reflux. Mildly prominent mucosal folds of the stomach may be accentuated by decreased distention with oral contrast. There is normal small bowel follow-through with no evidence of ileus or obstruction. Current Visit: Yes Status: Acute Code(s): R10.9 - UNSPECIFIED ABDOMINAL PAIN SNOMED Code(s): 04215087 (2) Diarrhea Current Visit: Yes Status: Acute Code(s): R19.7 - DIARRHEA, UNSPECIFIED SNOMED Code(s): 79450429 (3) Nausea & vomiting Current Visit: Yes Status: Acute Code(s): R11.2 - NAUSEA WITH VOMITING, UNSPECIFIED SNOMED Code(s): 36192339 Plan: Supportive care Encouraged patient to sit up and ambulate Diet as tolerated, by mouth after midnight Protonix increased to twice daily Dicyclomine added for abdominal pain Surgical service consult. Continue IV fluid hydration Continue with anti-emetics, Tigan orders as needed for breakthrough nausea and vomiting. Judicious use of pain medications as it could worsen symptoms Small bowel follow-through ordered by surgical service, reviewed Patient is scheduled for EGD tomorrow for further evaluation of abdominal pain, nausea and vomiting Thank you for allowing us to participate in the care of the patient The impression and plan of care has been dictated as directed. Dr. Neisha Simmons I performed a history and examination of this patient, discussed the same with the dictator. I agree with the dictator's note ,documented as a scribe. Any additional findings or plans will be noted.
[2020-08-09] MEDS: ATORVASTATIN 80 MG TAB PO SCH (22:55)
[2020-08-09] MEDS: HEPARIN SODIUM,PORCINE 5,000 UNIT/ML 1 ML VIAL SQ SCH (22:56)
[2020-08-10] MEDS: oxyCODONE-APAP 10-325MG 1 EACH TAB PO PRN ×2 (03:36→15:16)
[2020-08-10] MEDS: METOCLOPRAMIDE 5 MG/ML 2 ML VIAL IVP PRN ×3 (03:36→22:55)
[2020-08-10] MEDS: PROMETHAZINE INJ 25 MG in SODIUM CHLORIDE 0.9% 50 ML IVPB PRN (06:12)
[2020-08-10 06:16] LABS: Basophils # (A) 0.1 k/uL (0-0.2); Basophils % (A) 1 %; Eosinophils # (A) 0.1 k/uL (0-0.7); Eosinophils % (A) 1 %; HCT 47.7 % (39.0-53.0); HGB 14.7 gm/dL (13.0-17.5); Lymphocytes # (A) 1.1 k/uL (1.0-4.8); Lymphocytes % (A) 16 %; MCH 27.6 pg (25.0-35.0); MCHC 30.8 g/dL (31.0-37.0); MCV 89.6 fL (80.0-100.0); Mean Platelet Volume 6.4; Monocytes # (A) 0.4 k/uL (0-1.0); Monocytes % (A) 6 %; Neutrophils # (A) 5.2 k/uL (1.3-7.7); Neutrophils % (A) 74 %; Platelet Count 398 k/uL (150-450); RBC 5.32 m/uL (4.30-5.90); RDW 14.2 % (11.5-15.5)
[2020-08-10] MEDS: SODIUM CHLORIDE 0.9% 1,000 ML IV SCH ×2 (08:22→18:47)
[2020-08-10] MEDS: carvediloL 12.5 MG TAB PO SCH ×3 (08:22→16:41)
[2020-08-10] MEDS: PANTOPRAZOLE 40 MG/10 ML VIAL IVP SCH ×2 (08:22→21:47)
[2020-08-10] MEDS: MORPHINE SULFATE ER 30 MG TABLET PO SCH ×3 (08:23→20:03)
[2020-08-10 09:05] LABS: African American GFR (CKD) 116.4 (60.0-200.0); Anion Gap 12.7 mmol/L (4.00-12.00); BUN/Creat Ratio 21.43 Ratio (12.00-20.00); Carbon Dioxide 23.3 mmol/L (21.6-31.8); Non-African American GFR(CKD) 100.4 (60.0-200.0); Potassium 3.1 mmol/L (3.5-5.5)
[2020-08-10] MEDS: cloNIDine HCL 0.1 MG TAB PO SCH ×2 (11:00→21:47)
[2020-08-10] MEDS: SUCRALFATE 1 GM TAB PO SCH ×3 (11:00→16:41)
[2020-08-10] MEDS: amLODIPine 5 MG TAB PO SCH ×2 (11:00→21:47)
[2020-08-10] MEDS: EZETIMIBE 10 MG TAB PO SCH (11:00)
[2020-08-10] MEDS: PRASUGREL 10 MG TAB PO SCH (11:01)
[2020-08-10] MEDS: HEPARIN SODIUM,PORCINE 5,000 UNIT/ML 1 ML VIAL SQ SCH ×2 (11:01→21:47)
[2020-08-10] MEDS: lisinopriL 20 MG TAB PO SCH (11:01)
[2020-08-10] MEDS: GABAPENTIN 300 MG CAP PO SCH ×3 (11:01→21:47)
[2020-08-10 11:46] VITALS: BMI 24.4
[2020-08-10] MEDS ORDERED: MIDAZOLAM 2 MG/2 ML VIAL ONE (13:07)
[2020-08-10] MEDS ORDERED: fentaNYL (PF) 50 MCG/ML 2 ML AMP ONE (13:07)
[2020-08-10] MEDS ORDERED: PROPOFOL 10 MG/ML 20 ML VIAL IV ONE (13:07)
[2020-08-10] MEDS ORDERED: LIDOCAINE 1% INJ 10MG/ML (20 ML MDV) ONE (13:07)
[2020-08-10] MEDS ORDERED: IV FLUID CONTINUATION 1,000 ML IV ONE ×2 (13:09)
--- NOTE | 2020-08-10 13:21 | P.PCN ---
Date of Procedure: 08/10/20 Procedure(s) Performed: BRIEF HISTORY: Patient is a 64-year-old, pleasant, white male admitted to the hospital with nausea vomiting for the last 6 days duration. Has been on Protonix, antiemetics with no help. He did have an upper GI small bowel series that showed moderate GERD that showed moderate GERD but otherwise unremarkable. Because of the persistent symptoms he scheduled for an upper endoscopy to evaluate further. PROCEDURE PERFORMED: EGD With biopsy. PREOPERATIVE DIAGNOSIS: Persistent nausea vomiting a 5-6 days duration. IV sedation per anesthesia. PROCEDURE: After informed consent was obtained, the patient was brought into the endoscopy unit. IV sedation was administered by Anesthesia under continuous monitoring. Initially the Olympus GIF-140 video endoscope was inserted into the mouth. Esophagus intubated without any difficulty. It was gradually advanced into the stomach and duodenum and carefully examined. The bulb and mild duodenitis and the second part of the duodenum appeared normal. The scope at this time was withdrawn to the stomach, adequately insufflated with air, and upon careful examination, mucosa of the antrum had multiple scattered erosions consistent with gastritis and biopsies were done from this area. The, body, cardia and the fundus appeared normal. The scope was then withdrawn into the esophagus. The GE junction was located at 39 cm from the incisors. The esophagus appeared normal. There were no erosions or ulcerations seen and the patient tolerated the procedure well. IMPRESSION: 1. Antral erosive gastritis. 2. Mild duodenitis. 3. No evidence of peptic ulcer disease or gastric outlet obstruction RECOMMENDATIONS: The findings of this examination were discussed with the patient. Diet will be advanced as tolerated. Continue with Protonix 40 mg twice daily andantiemetics as needed
[2020-08-10] MEDS ORDERED: LACTULOSE 20 GM/30 ML CUP PO ONE (14:43)
[2020-08-10] MEDS: ONDANSETRON 4 MG/2 ML VIAL IVP PRN (18:21)
--- NOTE | 2020-08-10 19:02 | P.PN ---
Subjective Progress Note Date: 08/10/20 (delayed charting seen at 1400) Principal diagnosis: intractable nausea and vomiting Patient is a 64-year-old male with known coronary artery disease status post CABG and multiple stents, hypertension, dyslipidemia, DVT, COPD, and chronic low back pain who presented to the emergency department with complaints of abdominal pain, nausea and vomiting. Patient has undergone an extensive evaluation and has had multiple admissions for the same complaint. CT abdomen and pelvis tamanna wed mild fluid distended small bowel consistent with minimal ileus. He was seen by surgery who recommended supportive care as well as Reglan. He was seen by GI who added dicyclomine and increase Protonix. They recommended she just issues of pain medications as it can worsen symptoms. On 08/07 he underwent a small bowel follow-through which was limited due to patient's inability to drink contrast that did show mild spontaneous GERD throughout the examination, mild delayed gastric emptying, feline esophagus, and mild narrowing at the GE junction which may be due to esophageal reflux. Mild prominent mucosal folds. Abdominal x-ray the next day demonstrated a nonspecific abdomen. He continued to have nausea and vomiting and subsequently underwent an EGD which showed antral gastritis, mild duodenitis, and no evidence of peptic ulcer disease or obstruction. GI recommended Protonix twice a day and antiemetics as needed. Patient seen and examined at bedside. Upon entering the room he complains of abdominal pain over nausea and vomiting. He then reiterates that he sees a body painter and is on morphine and Percocet at baseline and that this is not helping his pain currently he is asking for something more. We had a valerie discussion that continued opiate medications are not in the patient's best interest as these can exacerbate slow transit through the gut which was seen on both his small bowel follow-through and the ileus on his initial CT, we discussed that that could lead to worsening nausea and vomiting. I did offer the patient Toradol to which he states he is ALLERGIC and it causes itching, and IV Tylenol to which he refuses. He stated that his last bowel movement was over 5 days ago. He expresses frustration. I have asked him to take a hot shower to see if it helps with his hyperemesis. We also agreed that he needs his constipation treated. Initially I offered rectal suppository or enema due to his severe nausea and vomiting however he refused but stated he could drink lactulose. General: non toxic, no distress, appears at stated age Derm: warm, dry Head: atraumatic, normocephalic, symmetric Eyes: EOMI, no lid lag, anicteric sclera Mouth: no lip lesion, mucus membranes moist Cardiovascular: S1S2 reg, no murmur, positive posterior tibial pulse bilateral, Lungs: CTA bilateral, no rhonchi, no rales , no accessory muscle use Abdominal: soft, nontender to palpation, no guarding, no appreciable organomegaly Ext: no gross muscle atrophy, no edema, no contractures Neuro: CN II-XI grossly intact, no focal neuro deficits Psych: Alert, oriented, appropriate affect Intractable nausea and vomiting -Has failed promethazine and Reglan. -Interestingly enough patient has not asked for single when necessary dose of Compazine or dental -CT abdomen and pelvis with ileus, small bowel follow-through with evidence of gastroesophageal reflux and delayed gastric emptying Esophagitis with duodenitis -IV PPI twice a day with conversion to oral once able to tolerate diet -Continue with Reglan -Carafate. I encouraged the patient to take a dose as he has only received 1 dose of this medication while in the hospital he has refused all other times or was in the operating room. Hypertension, accelerated -Patient has been unable to take his multiple blood pressure medications due to nausea and vomiting. Interestingly enough patient has not had difficulty with taking his oral morphine sulfate or Percocet. Chronic opiate dependency for low back pain -Continue outpatient follow-up with his body painter -Continue with his home morphine and Percocet. He has not been able to tolerate his oral gabapentin -Likely will need a bowel regimen at baseline Hypercalcemia, resolved Chronic conditions: Coronary artery disease COPD DVT Hyperlipidemia Chronic pain syndrome Migraines Neuropathy Hyperthyroid Anticipate patient to be discharged home soon if he is tolerating sufficient orals to sustain himself. I anticipate he will have recurrent readmissions for this process. DVT prophylaxis: Heparin-however patient has been refusing Discussed with: Patient, nursing Anticipated discharge: In 1-[address]: Home A total of 35 minutes was spent on the care of this complex patient more than 50% of the time was spent in counseling and care coordination. Objective - Vital Signs Vital signs: Vital Signs Temp 97.3 F L 08/10/20 13:40 Pulse 106 H 08/10/20 16:35 Resp 17 08/10/20 13:40 BP 183/105 08/10/20 16:35 Pulse Ox 96 08/10/20 13:40 Intake & Output 08/09/20 08/10/20 08/10/20 18:59 06:59 18:59 Intake Total 1840 400 50 Output Total 2000 Balance -160 400 50 Weight 79.379 kg Intake: IV 50 Intake, IV Titration 900 300 Amount Sodium Chloride 0.9% 1, 900 300 000 ml @ 100 mls/hr IV . Q10H [facility] Rx#:[id number] Oral 940 100 Output: Urine 1400 Emesis 600 Other: Voiding Method Toilet Toilet Toilet # Voids 4 600 3 # Emeses 1 - Labs CBC & Chem 7: 08/10/20 05:56 08/10/20 05:56 Labs: Abnormal Lab Results - Last 24 Hours (Table) 08/10/20 08/10/20 Range/Units 05:56 05:56 MCHC 30.8 L (31.0-37.0) g/dL Potassium 3.1 L (3.5-5.5) mmol/L Anion Gap 12.70 H (4.00-12.00) mmol/L BUN/Creatinine Ratio 21.43 H (12.00-20.00) Ratio
[2020-08-10] MEDS: ATORVASTATIN 80 MG TAB PO SCH (21:47)
[2020-08-11] MEDS: oxyCODONE-APAP 10-325MG 1 EACH TAB PO PRN ×2 (01:06→15:09)
[2020-08-11] MEDS: PROMETHAZINE INJ 25 MG in SODIUM CHLORIDE 0.9% 50 ML IVPB PRN ×3 (04:13→23:49)
[2020-08-11] MEDS: SODIUM CHLORIDE 0.9% 1,000 ML IV SCH ×2 (04:18→20:53)
[2020-08-11 06:09] VITALS: RESP 18
[2020-08-11] MEDS: ONDANSETRON 4 MG/2 ML VIAL IVP PRN ×2 (08:35→20:42)
[2020-08-11] MEDS: PRASUGREL 10 MG TAB PO SCH (08:36)
[2020-08-11] MEDS: MORPHINE SULFATE ER 30 MG TABLET PO SCH ×2 (09:32→20:44)
[2020-08-11] MEDS: PANTOPRAZOLE 40 MG/10 ML VIAL IVP SCH ×2 (09:33→20:44)
[2020-08-11] MEDS: lisinopriL 20 MG TAB PO SCH (09:33)
[2020-08-11 09:43] LABS: Basophils % (A) 0 %; Eosinophils # (A) 0.1 k/uL (0-0.7); Eosinophils % (A) 1 %; HCT 44.9 % (39.0-53.0); HGB 14.4 gm/dL (13.0-17.5); Lymphocytes # (A) 0.8 k/uL (1.0-4.8); Lymphocytes % (A) 12 %; MCH 28.7 pg (25.0-35.0); MCHC 32.1 g/dL (31.0-37.0); MCV 89.5 fL (80.0-100.0); Mean Platelet Volume 6.8; Monocytes # (A) 0.4 k/uL (0-1.0); Monocytes % (A) 6 %; Neutrophils # (A) 5.3 k/uL (1.3-7.7); Neutrophils % (A) 81 %; Platelet Count 337 k/uL (150-450); RBC 5.01 m/uL (4.30-5.90); RDW 14.2 % (11.5-15.5); WBC 6.6 k/uL (3.8-10.6)
[2020-08-11 09:44] LABS: African American GFR (CKD) >90 (>60 ml/min/1.73 sqM); Anion Gap 11 mmol/L; Blood Urea Nitrogen 12 mg/dL (9-20); Calcium 8.8 mg/dL (8.4-10.2); Carbon Dioxide 19 mmol/L (22-30); Chloride 105 mmol/L (98-107); Glucose 100 mg/dL (74-99); Non-African American GFR(CKD) >90 (>60 ml/min/1.73 sqM); Potassium 3.6 mmol/L (3.5-5.1); Sodium 135 mmol/L (137-145)
--- NOTE | 2020-08-11 11:13 | PN ---
PROGRESS NOTE DATE OF SERVICE: August 11, 2020 Patient is a 64-year-old white male admitted to the hospital with intractable nausea, vomiting for the last one week duration. He is presently on Protonix 40 mg twice daily and multiple antiemetics. He was also started on Carafate 2 days ago. He underwent an upper endoscopy yesterday that showed mild gastritis and mild duodenitis. He still continues to complain of persistent abdominal pain and nausea and vomiting. He did not eat his breakfast this morning. PHYSICAL EXAMINATION: He appears comfortable. VITAL SIGNS: Stable. Blood pressure is 133/91, pulse rate 85, temperature 97.9. HEENT examination unremarkable. Conjunctivae pink. Sclerae anicteric. Oral cavity no lesions. NECK no JVD or lymph node enlargement. CHEST was clear to auscultation. HEART: Regular rate and rhythm. ABDOMEN: Soft, nontender, nondistended. Bowel sounds are positive. No organomegaly. EXTREMITIES: No pedal edema. NEUROLOGIC: Alert and oriented x3. No focal deficits. LABS: WBC 6.6, hemoglobin 14.4, platelets normal. Basic metabolic panel is within normal limits. IMPRESSION: 1. Intractable nausea, vomiting for the last one week duration. Upper endoscopy done yesterday showed mild gastritis and mild duodenitis. He did have a small-bowel series done 2 days ago that was unremarkable. Prior to that he did have a CT of the abdomen and pelvis done that was unremarkable. Etiology of nausea and vomiting remains unclear. The patient remains symptomatic despite being on antiemetics as well as proton pump inhibitors. 2. Chronic pain syndrome. 3. Chronic back pain. 4. Hypertension. 5. Hyperlipidemia. RECOMMENDATIONS: I had a lengthy discussion with the patient about his ongoing symptoms. I recommended that he increase his ambulation, try to advance diet as tolerated and in the meantime, we will continue current Protonix as well as antiemetics as needed. If he still continues to be symptomatic, we will obtain a gastric emptying scan on Thursday. The plan was discussed with him. He is agreeable to it. Thank you for this consultation. TATYANA / DEN: [id number] /
[2020-08-11] MEDS: carvediloL 12.5 MG TAB PO SCH ×2 (11:42→18:19)
[2020-08-11] MEDS: GABAPENTIN 300 MG CAP PO SCH ×3 (11:42→21:42)
[2020-08-11] MEDS: SUCRALFATE 1 GM TAB PO SCH ×2 (11:42→18:17)
[2020-08-11] MEDS: EZETIMIBE 10 MG TAB PO SCH (11:42)
[2020-08-11] MEDS: HEPARIN SODIUM,PORCINE 5,000 UNIT/ML 1 ML VIAL SQ SCH ×2 (11:43→20:54)
[2020-08-11] MEDS ORDERED: LACTULOSE 20 GM/30 ML CUP PO ONE (12:17)
--- NOTE | 2020-08-11 12:48 | P.PN ---
Subjective Progress Note Date: 08/11/20 Principal diagnosis: intractable nausea and vomiting Patient is a 64-year-old male with known coronary artery disease status post CABG and multiple stents, hypertension, dyslipidemia, DVT, COPD, and chronic low back pain who presented to the emergency department with complaints of abdominal pain, nausea and vomiting. Patient has undergone an extensive evaluation and has had multiple admissions for the same complaint. CT abdomen and pelvis showed mild fluid distended small bowel consistent with minimal ileus. He was seen by surgery who recommended supportive care as well as Reglan. He was seen by GI who added dicyclomine and increase Protonix. They recommended she just issues of pain medications as it can worsen symptoms. On 08/07 he underwent a small bowel follow-through which was limited due to patient's inability to drink contrast that did show mild spontaneous GERD throughout the examination, mild delayed gastric emptying, feline esophagus, and mild narrowing at the GE junction which may be due to esophageal reflux. Mild prominent mucosal folds. Abdominal x-ray the next day demonstrated a nonspecific abdomen. He continued to have nausea and vomiting and subsequently underwent an EGD which showed antral gastritis, mild duodenitis, and no evidence of peptic ulcer disease or obstruction. GI recommended Protonix twice a day and antiemetics as needed. He was seen by GI who told him there is nothing else to do while she is here. Patient seen and examined at bedside. Sleeping when I enter the room. He does not open his eyes, states that he is tired. He did not have a bowel movement yesterday. We discussed that he will be discharged in the morning. General: Ill appearing, no distress, appears at stated age Derm: warm, dry Head: atraumatic, normocephalic, symmetric Eyes: EOMI, no lid lag, anicteric sclera Mouth: no lip lesion, mucus membranes moist Cardiovascular: S1S2 reg, no murmur, positive posterior tibial pulse bilateral, Lungs: CTA bilateral, no rhonchi, no rales , no accessory muscle use Abdominal: soft, +tender to palpation diffusely, no guarding, no appreciable organomegaly Ext: no gross muscle atrophy, no edema, no contractures Intractable nausea and vomiting - Has failed promethazine and Reglan. - bowel regiment increased - Encourage up and ambulating, carafate, IV PPI - Interestingly enough patient has not asked for single when necessary dose of Compazine or Tigan - CT abdomen and pelvis with ileus, small bowel follow-through with evidence of gastroesophageal reflux and delayed gastric emptying Constipation - miralax, lactulose - Out of bed to hiwot Esophagitis with duodenitis -IV PPI twice a day with conversion to oral once able to tolerate diet -Continue with Reglan -Carafate. I encouraged the patient to take a dose. Hypertension, accelerated -Patient has been unable to take his multiple blood pressure medications due to nausea and vomiting. Interestingly enough patient has not had difficulty with taking his oral morphine sulfate or Percocet. Chronic opiate dependency for low back pain -Continue outpatient follow-up with his pain management nurse practitioner -Continue with his home morphine and Percocet. He has not been able to tolerate his oral gabapentin -Likely will need a bowel regimen at baseline Hypercalcemia, resolved Chronic conditions: Coronary artery disease COPD DVT Hyperlipidemia Chronic pain syndrome Migraines Neuropathy Hyperthyroid Anticipate patient to be discharged home soon if he is tolerating sufficient orals to sustain himself. I anticipate he will have recurrent readmissions for this process. DVT prophylaxis: Heparin-however patient has been refusing Discussed with: Patient, nursing Anticipated discharge: In AM Anticipated discharge place: Home A total of 35 minutes was spent on the care of this complex patient more than 50% of the time was spent in counseling and care coordination. Objective - Vital Signs Vital signs: Vital Signs Temp 99.4 F 08/11/20 11:25 Pulse 107 H 08/11/20 11:25 Resp 18 08/11/20 11:25 BP 158/98 08/11/20 11:25 Pulse Ox 98 08/11/20 11:25 Intake & Output 08/10/20 08/11/20 08/11/20 18:59 06:59 18:59 Intake Total 50 Output Total 700 Balance 50 -700 Weight 79.379 kg Intake: IV 50 Output: Urine 700 Other: Voiding Method Toilet # Voids 3 2 - Labs CBC & Chem 7: 08/11/20 09:05 08/11/20 09:05 Labs: Abnormal Lab Results - Last 24 Hours (Table) 08/11/20 08/11/20 Range/Units 09:05 09:05 Lymphocytes # 0.8 L (1.0-4.8) k/uL Sodium 135 L (137-145) mmol/L Carbon Dioxide 19 L (22-30) mmol/L Creatinine 0.55 L (0.66-1.25) mg/dL Glucose 100 H (74-99) mg/dL TSH 0.108 L (0.465-4.680) mIU/L
[2020-08-11] MEDS: cloNIDine HCL 0.1 MG TAB PO SCH ×2 (18:15→20:44)
[2020-08-11] MEDS: amLODIPine 5 MG TAB PO SCH ×2 (18:15→20:44)
[2020-08-11] MEDS: polyethylene glycoL 3350 17 GM POWD.PACK PO SCH (18:17)
[2020-08-11] MEDS: ATORVASTATIN 80 MG TAB PO SCH (20:54)
[2020-08-12] MEDS: ONDANSETRON 4 MG/2 ML VIAL IVP PRN ×3 (04:40→12:49)
[2020-08-12] MEDS: oxyCODONE-APAP 10-325MG 1 EACH TAB PO PRN ×2 (04:42→12:49)
[2020-08-12] MEDS: SODIUM CHLORIDE 0.9% 1,000 ML IV SCH (05:11)
[2020-08-12 05:34] LABS: Basophils % (A) 1 %; Eosinophils # (A) 0.1 k/uL (0-0.7); Eosinophils % (A) 1 %; HCT 47.1 % (39.0-53.0); HGB 14.1 gm/dL (13.0-17.5); Lymphocytes # (A) 1.2 k/uL (1.0-4.8); Lymphocytes % (A) 24 %; MCH 27.6 pg (25.0-35.0); MCV 91.7 fL (80.0-100.0); Mean Platelet Volume 6.6; Monocytes # (A) 0.4 k/uL (0-1.0); Monocytes % (A) 7 %; Neutrophils # (A) 3.1 k/uL (1.3-7.7); Neutrophils % (A) 63 %; Platelet Count 288 k/uL (150-450); RBC 5.13 m/uL (4.30-5.90); WBC 4.9 k/uL (3.8-10.6)
[2020-08-12] MEDS: polyethylene glycoL 3350 17 GM POWD.PACK PO SCH (08:54)
[2020-08-12] MEDS: PANTOPRAZOLE 40 MG/10 ML VIAL IVP SCH (09:47)
[2020-08-12] MEDS: PROMETHAZINE INJ 25 MG in SODIUM CHLORIDE 0.9% 50 ML IVPB PRN (09:47)
[2020-08-12] MEDS: PRASUGREL 10 MG TAB PO SCH (09:49)
[2020-08-12] MEDS: MORPHINE SULFATE ER 30 MG TABLET PO SCH (09:49)
[2020-08-12] MEDS: lisinopriL 20 MG TAB PO SCH (09:49)
[2020-08-12] MEDS: carvediloL 12.5 MG TAB PO SCH (09:49)
[2020-08-12 10:06] LABS: African American GFR (CKD) 110.2 (60.0-200.0); Anion Gap 10.1 mmol/L (4.00-12.00); Calcium 8.5 mg/dL (8.7-10.3); Carbon Dioxide 22.9 mmol/L (21.6-31.8); Non-African American GFR(CKD) 95.1 (60.0-200.0); Potassium 3.8 mmol/L (3.5-5.5)
[2020-08-12 10:13] LABS: T4, Free (Free Thyroxine) 1.3 ng/dL (0.80-1.80)
[2020-08-12] MEDS: amLODIPine 5 MG TAB PO SCH (10:56)
[2020-08-12] MEDS: SUCRALFATE 1 GM TAB PO SCH ×2 (10:56→15:42)
[2020-08-12] MEDS: cloNIDine HCL 0.1 MG TAB PO SCH (10:57)
[2020-08-12] MEDS: EZETIMIBE 10 MG TAB PO SCH (10:57)
[2020-08-12] MEDS: GABAPENTIN 300 MG CAP PO SCH (10:58)
[2020-08-12] MEDS: HEPARIN SODIUM,PORCINE 5,000 UNIT/ML 1 ML VIAL SQ SCH (10:58)
[2020-08-12 11:54] VITALS: BP 107/68; PULSE 94; TEMP 98.3
--- NOTE | 2020-08-12 12:48 | PN ---
PROGRESS NOTE DATE OF SERVICE: August 12, 2020 HISTORY: Patient is a 64-year-old pleasant white male admitted to the hospital with intractable nausea, vomiting for the last one week duration. He had an upper endoscopy. CT of the abdomen and pelvis done and upper GI small bowel series, all of which showed some reflux esophagitis and mild gastritis and duodenitis. He is on symptomatic therapy. He is tolerating a regular diet but eating small portions. He complains of chronic back pain. PHYSICAL EXAMINATION: Appears comfortable, no apparent distress. Vital signs stable. Blood pressure is 133/82, pulse rate 86 per minute and afebrile. HEENT examination unremarkable. Conjunctivae pink. Sclerae anicteric. Oral cavity no lesions. NECK no JVD or lymph node enlargement. CHEST was clear to auscultation. HEART: Regular rate and rhythm. ABDOMEN: Soft. There was mild tenderness in the epigastric area. Rest of the abdomen was benign. Bowel sounds are positive. EXTREMITIES no pedal edema. SKIN no rashes. NEUROLOGIC: Alert and oriented x3. No focal deficits. LABS: From today WBC 4.9, hemoglobin 14.1, platelets normal. Basic metabolic panel is normal. IMPRESSION: 1. Intractable nausea, vomiting, which is gradually improving status post EGD 2 days ago that showed mild gastritis and duodenitis. Prior to that he did have CT of the abdomen as well as small-bowel series that was unremarkable. 2. Chronic pain syndrome. 3. History of gastroesophageal reflux disease. 4. Hypertension and hyperlipidemia. 5. Constipation .. RECOMMENDATIONS: 1. Continue with small frequent meals. 2. Continue Protonix 40 mg twice daily. 3. Use MiraLAX as needed for the chronic constipation. 4. Decrease narcotic usage if possible. 5. He can be discharged home today with outpatient followup in 2 weeks. Thank you for this consultation. MMODL / IJN: [id number] /
--- NOTE | 2020-08-12 18:11 | P.DS ---
Providers Date of admission: 08/06/20 05:36 Expected date of discharge: 08/12/20 Attending physician: Willi Chase MD Consults: 08/06/20 05:53 Consult Physician Urgent Consulting Provider: Laura Simmons Consult Reason/Comments: nausea, vomiting, abdominal pain Do you want consulting provider notified?: Yes 08/06/20 09:47 Consult Physician Urgent Consulting Provider: Karen Pearl Consult Reason/Comments: abdominal pain Do you want consulting provider notified?: Yes Primary care physician: Stated None Hospital Course: Discharge Diagnosis: Intractable nausea and vomiting Constipation Esophagitis with duodenitis HTN, accelerated- due to not taking medications Chronic opiate dependency due to low back pain Hypercalcemia Coronary artery disease COPD DVT Hyperlipidemia Chronic pain syndrome Migraines Neuropathy Hyperthyroid Cellulitis left index finger Hospital Course: Patient is a 64-year-old male with known coronary artery disease status post CABG and multiple stents, hypertension, dyslipidemia, DVT, COPD, and chronic low back pain who presented to the emergency department with complaints of abdominal pain, nausea and vomiting. Patient has undergone an extensive evaluation and has had multiple admissions for the same complaint. CT abdomen and pelvis showed mild fluid distended small bowel consistent with minimal ileus. He was seen by surgery who recommended supportive care as well as Reglan. He was seen by GI who added dicyclomine and increase Protonix. They recommended no additional opaite pain medications as thye can worsen symptoms. On 08/07 he underwent a small bowel follow-through which was limited due to patient's inability to drink contrast that did show mild spontaneous GERD throughout the examination, mild delayed gastric emptying, feline esophagus, and mild narrowing at the GE junction which may be due to esophageal reflux. Mild prominent mucosal folds. Abdominal x-ray the next day demonstrated a nonspecific abdomen. He continued to have nausea and vomiting and subsequently underwent an EGD which showed antral gastritis, mild duodenitis, and no evidence of peptic ulcer disease or obstruction. GI recommended Protonix twice a day and antiemetics as needed. It was noted that he refused carfate throughout his stay and much of his blood pressure medications, but was able to tolerated his Morphin and percocet tables. He was seen by GI who told him there is nothing else to do while he is here. He was determined stable for discharge. He will follow-up with Dr. Simmons in 2 week and his pain management doctor. Patient seen and examined at bedside. Nausea, no vomiting, had 3 bowel movements yesterday, ate 1 bag of chips already Vital signs reviewed and stable. General: non toxic, no distress, appears at stated age Derm: warm, dry Head: atraumatic, normocephalic, symmetric Eyes: EOMI, no lid lag, anicteric sclera Mouth: no lip lesion, mucus membranes moist Cardiovascular: S1S2 reg, no murmur, positive posterior tibial pulse bilateral, Lungs: CTA bilateral, no rhonchi, no rales , no accessory muscle use Abdominal: soft, +tender to palpation, no guarding, no appreciable organomegaly Ext: no gross muscle atrophy, no edema, no contractures Neuro: CN II-XI grossly intact, no focal neuro deficits Psych: Alert, oriented, appropriate affect Called by nursing after discharge order placed. When they removed his IV that was placed in left index fingers they nortice a pressure ulcer. Exam: small pressure ulcer left index finger DIP joint, swelling left index finger to knuckle with some redness and no warmth. Instruction Z-guard BID and cover ulceration, keflex X 7 days for cellulits A total of 25 minutes of time were spent preparing this complex discharge summary . Patient Condition at Discharge: Stable Plan - Discharge Summary Discharge Rx Participant: Yes New Discharge Prescriptions: New Sucralfate [Carafate] 1 gm PO AC-TID #90 tab polyethylene glycoL 3350 [Miralax] 17 gm PO DAILY powd.pack Cephalexin [Keflex] 500 mg PO Q8HR 5 Days #15 cap Continue Fluticasone Nasal [place] [Flonase Nasal [place]] 1 spray EA NOSTRIL BID PRN PRN Reason: Allergy Symptoms Morphine Sulfate ER [Ms Contin] 30 mg PO Q8H Atorvastatin [Lipitor] 80 mg PO HS #30 tab tiZANidine [Zanaflex] 4 mg PO TID PRN PRN Reason: Muscle Spasm cloNIDine HCL [Catapres] 0.1 mg PO BID #60 tab amLODIPine [Norvasc] 5 mg PO BID #60 tab Ezetimibe [Zetia] 10 mg PO DAILY #30 tab Nitroglycerin Sl Tabs [Nitrostat] 0.4 mg SUBLINGUAL Q5M PRN #20 tab PRN Reason: Chest Pain Gabapentin [Neurontin] 300 mg PO TID oxyCODONE-APAP 10-325MG [Percocet 10-325 mg] 1 tab PO Q8H PRN PRN Reason: Pain Aspirin EC [Ecotrin Low Dose] 81 mg PO DAILY carvediloL [Coreg*] 12.5 mg PO AC-BID lisinopriL 40 mg PO DAILY Prasugrel [Effient] 10 mg PO DAILY Dicyclomine [Bentyl] 10 mg PO QID PRN #90 cap PRN Reason: IBS Pantoprazole Sodium [Protonix] 40 mg PO DAILY #30 tab Discharge Medication List Fluticasone Nasal [place] [Flonase Nasal [place]] 1 spray EA NOSTRIL BID PRN 04/20/17 [History] Morphine Sulfate ER [Ms Contin] 30 mg PO Q8H 10/10/17 [History] Atorvastatin [Lipitor] 80 mg PO HS #30 tab 10/12/17 [Rx] tiZANidine [Zanaflex] 4 mg PO TID PRN 02/26/18 [History] cloNIDine HCL [Catapres] 0.1 mg PO BID #60 tab 02/08/19 [Rx] Ezetimibe [Zetia] 10 mg PO DAILY #30 tab 05/24/19 [Rx] amLODIPine [Norvasc] 5 mg PO BID #60 tab 05/24/19 [Rx] Nitroglycerin Sl Tabs [Nitrostat] 0.4 mg SUBLINGUAL Q5M PRN #20 tab 07/02/19 [Rx] Aspirin EC [Ecotrin Low Dose] 81 mg PO DAILY 01/02/20 [History] Gabapentin [Neurontin] 300 mg PO TID 01/02/20 [History] carvediloL [Coreg*] 12.5 mg PO AC-BID 01/02/20 [History] oxyCODONE-APAP 10-325MG [Percocet 10-325 mg] 1 tab PO Q8H PRN 01/02/20 [History] Prasugrel [Effient] 10 mg PO DAILY 08/06/20 [History] lisinopriL 40 mg PO DAILY 08/06/20 [History] Cephalexin [Keflex] 500 mg PO Q8HR 5 Days #15 cap 08/12/20 [Rx] Dicyclomine [Bentyl] 10 mg PO QID PRN #90 cap 08/12/20 [Rx] Pantoprazole Sodium [Protonix] 40 mg PO DAILY #30 tab 08/12/20 [Rx] Sucralfate [Carafate] 1 gm PO AC-TID #90 tab 08/12/20 [Rx] polyethylene glycoL 3350 [Miralax] 17 gm PO DAILY powd.pack 08/12/20 [Rx] Follow up Appointment(s)/Referral(s): Laura Simmons MD [STAFF PHYSICIAN] - 1 Week [facility] [NON-STAFF] - 1 Week Patient Instructions/Handouts: Cephalexin (By mouth), Sucralfate (By mouth), Dicyclomine (By mouth), Pantoprazole (By mouth), Acute Nausea and Vomiting (DC) Activity/Diet/Wound Care/Special Instructions: Activity: as tolerated Diet: heart healthy Discharge Disposition: HOME SELF-CARE
[2020-08-12 20:55] LABS: T4, Free (Free Thyroxine) 1.89 ng/dL (0.78-2.19)
== END 2020-08-12 15:30 | disposition home or self-care (01) | DRG 392 ==
LOC: EC 01:08 → 6NMEDSUR 05:36
PROVIDERS: ADMIT Internal Medicine; ATTEND Internal Medicine
PROC: 0DB78ZX Excision of Stomach, Pylorus, Via Natural or Artificial Opening Endoscopic, Diagnostic (ICD-10-PCS; principal; 2020-08-10 11:40)
DX: K29.60 Other gastritis without bleeding (principal); K56.7 Ileus, unspecified; F11.20 Opioid dependence, uncomplicated; K92.1 Melena; K29.80 Duodenitis without bleeding; J44.9 Chronic obstructive pulmonary disease, unspecified; E05.90 Thyrotoxicosis, unspecified without thyrotoxic crisis or storm; E78.5 Hyperlipidemia, unspecified; E83.52 Hypercalcemia; G43.909 Migraine, unspecified, not intractable, without status migrainosus; G62.9 Polyneuropathy, unspecified; G89.4 Chronic pain syndrome; I10 Essential (primary) hypertension; I25.10 Atherosclerotic heart disease of native coronary artery without angina pectoris; K21.0 Gastro-esophageal reflux disease with esophagitis; K57.90 Diverticulosis of intestine, part unspecified, without perforation or abscess without bleeding; L03.012 Cellulitis of left finger; L89.899 Pressure ulcer of other site, unspecified stage; Z20.828 Contact with and (suspected) exposure to other viral communicable diseases; M54.5 Low back pain; K59.00 Constipation, unspecified; Z90.49 Acquired absence of other specified parts of digestive tract; Z82.5 Family history of asthma and other chronic lower respiratory diseases; Z82.49 Family history of ischemic heart disease and other diseases of the circulatory system; Z80.6 Family history of leukemia; Z79.02 Long term (current) use of antithrombotics/antiplatelets; Z79.82 Long term (current) use of aspirin; Z79.899 Other long term (current) drug therapy; Z86.718 Personal history of other venous thrombosis and embolism; Z87.11 Personal history of peptic ulcer disease; Z88.6 Allergy status to analgesic agent; Z98.41 Cataract extraction status, right eye; Z95.5 Presence of coronary angioplasty implant and graft; Z95.1 Presence of aortocoronary bypass graft; Z86.74 Personal history of sudden cardiac arrest; T46.5X6A Underdosing of other antihypertensive drugs, initial encounter; Z91.128 Patient's intentional underdosing of medication regimen for other reason; Z98.1 Arthrodesis status; K44.9 Diaphragmatic hernia without obstruction or gangrene
CPT/HCPCS: 36415; 43239; 74018; 74022; 74176; 74240; 74248; 76705; 80048; 80053; 81001; 82150; 82272; 83690; 83735; 84439; 84443; 84484; 85025; 85027; 88305; 93005; 96374; 96375; 96376; 99285

== ENCOUNTER 2020-09-22 08:28 | Observation (INO) | payer MEDICARE ==
[2020-09-22] MEDS ORDERED: SODIUM CHLORIDE 0.9% 1,000 ML IV STA ×2 (08:40)
[2020-09-22] MEDS ORDERED: ASPIRIN 81 MG PO STA (08:40)
[2020-09-22] MEDS ORDERED: PANTOPRAZOLE 40 MG/10 ML VIAL IVP STA (08:40)
[2020-09-22] MEDS ORDERED: ONDANSETRON 4 MG/2 ML VIAL IVP STA (08:40)
--- NOTE | 2020-09-22 08:45 | ED ---
Chest Pain HPI - General Chief Complaint: Chest Pain Stated Complaint: chest pain Time Seen by Provider: 09/22/20 08:35 Source: patient, RN notes reviewed, old records reviewed Mode of arrival: ambulatory - History of Present Illness Initial Comments: Salomon is a 64-year-old -[place] male with history of hypertension and previous MIs who presents the emergency department today with complaints of chest pain dull aching pressure starting at 4:30 this morning. He also complains of some nausea and upper abdominal discomfort. Patient states that he has no fevers or chills. He complains of some shortness of breath today. He denies any vomiting. - Related Data Home Medications Medication Instructions Recorded Confirmed Fluticasone Nasal [place] [Flonase 1 spray EA NOSTRIL BID PRN 04/20/17 09/22/20 Nasal [place]] Morphine Sulfate ER [Ms Contin] 30 mg PO Q8H 10/10/17 09/22/20 tiZANidine [Zanaflex] 4 mg PO TID PRN 02/26/18 09/22/20 Aspirin EC [Ecotrin Low Dose] 81 mg PO DAILY 01/02/20 09/22/20 carvediloL [Coreg*] 12.5 mg PO AC-BID 01/02/20 09/22/20 oxyCODONE-APAP 10-325MG [Percocet 1 tab PO Q8H PRN 01/02/20 09/22/20 10-325 mg] Prasugrel [Effient] 10 mg PO DAILY 08/06/20 09/22/20 lisinopriL 40 mg PO DAILY 08/06/20 09/22/20 Previous Rx's Medication Instructions Recorded Atorvastatin [Lipitor] 80 mg PO HS #30 tab 10/12/17 cloNIDine HCL [Catapres] 0.1 mg PO BID #60 tab 02/08/19 Ezetimibe [Zetia] 10 mg PO DAILY #30 tab 05/24/19 amLODIPine [Norvasc] 5 mg PO BID #60 tab 05/24/19 Nitroglycerin Sl Tabs [Nitrostat] 0.4 mg SUBLINGUAL Q5M PRN #20 tab 07/02/19 Dicyclomine [Bentyl] 10 mg PO QID PRN #90 cap 08/12/20 Pantoprazole Sodium [Protonix] 40 mg PO DAILY #30 tab 08/12/20 Sucralfate [Carafate] 1 gm PO AC-TID #90 tab 08/12/20 polyethylene glycoL 3350 [Miralax] 17 gm PO DAILY powd.pack 08/12/20 Allergies Allergy/AdvReac Type Severity Reaction Status Date / Time ibuprofen [From Motrin] Allergy Rash/Hives Verified 09/22/20 09:22 ketorolac tromethamine Allergy Rash/Hives Verified 09/22/20 09:22 [From Toradol] Review of Systems ROS Statement: Those systems with pertinent positive or pertinent negative responses have been documented in the HPI. ROS Other: All systems not noted in ROS Statement are negative. EKG Findings - EKG Comments: EKG Findings:: EKG performed at 835 shows sinus tachycardia possible left atrial enlargement. Nonspecific T-wave abnormality. Abnormal EKG. Ventricular rate of 102 ms. NC interval is 152 ms. QS duration is 86 no seconds. QT QTc is 332/458 ms. Past Medical History Past Medical History: Coronary Artery Disease (CAD), Chest Pain / Angina, COPD, Deep Vein Thrombosis (DVT), GERD/Reflux, Hyperlipidemia, Hypertension, Osteoarthritis (OA), Thyroid Disorder Additional Past Medical History / Comment(s): Occasional palpitations, gastritis, small hiatal hernia, diverticular dx, pt states years ago he had PUD, chronic low back pain, chronic pain syndrome, migraines, DVT L arm, numbness/tingling bilateral lower legs, bilateral past R hand fracture, arthritis multiple joints, hyperthyroid, sinus problems. History of Any Multi-Drug Resistant Organisms: None Reported Past Surgical History: Back Surgery, Cholecystectomy, Heart Catheterization With Stent, Orthopedic Surgery Additional Past Surgical History / Comment(s): EGDs/colonoscopies, multiple low back surgeries, bilateral arm and bilateral thigh surgeries for brown recluse spider bites with infection, morphine pain pump insertion and removal due to infection, PCI with stents, L rotator cuff repair, L knee arthroscopy, cervical fusion/cage, R cataract removal. Past Anesthesia/Blood Transfusion Reactions: No Reported Reaction Additional Past Anesthesia/Blood Transfusion Reaction / Comment(s): Pt states after cervical fusion he "" in the recovery room but does not know cause- he was"gone for 8 minutes" and states he was resusitated. Pt received blood after back surgery and tolerated it well. Date of Last Stent Placement:: 10/12/17 Past Psychological History: No Psychological Hx Reported Smoking Status: Never smoker Past Alcohol Use History: None Reported Past Drug Use History: None Reported - Past Family History Father Family Medical History: No Reported History Additional Family Medical History / Comment(s): Father had back problems. He lived to be 82 yrs old. Mother History Unknown: Yes Family Medical History: Hypertension, Myocardial Infarction ([place]) Additional Family Medical History / Comment(s): Mother of a [place] at the age of 55yrs. Brother(s) Family Medical History: Cancer, COPD Additional Family Medical History / Comment(s): Leukemia General Exam - General Exam Comments Initial Comments: 64-year-old male. Alert and oriented 3. General appearance: alert, in no apparent distress Head exam: Present: atraumatic, normocephalic, normal inspection Eye exam: Present: normal appearance, PERRL, EOMI. Absent: scleral icterus, conjunctival injection, periorbital swelling ENT exam: Present: normal exam, mucous membranes moist Neck exam: Present: normal inspection. Absent: tenderness, meningismus, lymphadenopathy Respiratory exam: Present: normal lung sounds bilaterally. Absent: respiratory distress, wheezes, rales, rhonchi, stridor Cardiovascular Exam: Present: regular rate, normal rhythm, normal heart sounds. Absent: systolic murmur, diastolic murmur, rubs, gallop, clicks GI/Abdominal exam: Present: soft, tenderness (Epigastric tenderness), normal bowel sounds. Absent: distended, guarding, rebound, rigid Extremities exam: Present: normal inspection, full ROM, normal capillary refill. Absent: tenderness, pedal edema, joint swelling, calf tenderness Back exam: Present: normal inspection Neurological exam: Present: alert, oriented X3, CN II-XII intact Psychiatric exam: Present: normal affect, normal mood Skin exam: Present: warm, dry, intact, normal color. Absent: rash Course Vital Signs 09/22/20 09/22/20 09/22/20 08:31 09:36 10:20 Temperature 97.4 F L Pulse Rate 113 H 86 92 Respiratory 19 16 16 Rate Blood Pressure 122/82 133/90 149/91 O2 Sat by Pulse 98 99 99 Oximetry Chest Pain MDM - MDM This 64-year-old male presents emergency department today with onset of chest pain reporting heaviness in his chest starting 4:30 this morning. Patient arrives he also complains some nausea and epigastric discomfort. Patient's EKG was reviewed showing no acute ST changes. Patient's initial troponin was reviewed and unremarkable. Chemistry panels were within normal limits. Patient does have a history of 3 cardiac stents. Case discussed with Dr. Baker whom discussed with Dr. Cross. Patient will be admitted at this time to cardiac observation. CXR shows No acute cardio vomiting process. No significant change from prior. Disposition Clinical Impression: Chest pain Disposition: ADMITTED IP TO THIS HOSP Condition: Stable Is patient prescribed a controlled substance at d/c from ED?: No Referrals: None,Stated [Primary Care Provider] - 1-2 days Time of Disposition: 10:38
--- NOTE | 2020-09-22 09:10 | XR ---
EXAMINATION TYPE: XR chest 2V DATE OF EXAM: 09/22/2020 COMPARISON: Chest pain since this morning. HISTORY: Chest x-ray June 03, 2020. TECHNIQUE: Frontal and lateral views of the chest are obtained. FINDINGS: There is no new suspicious focal air space opacity, pleural effusion, or pneumothorax seen . The cardiac silhouette size is stable and within normal limits. Postsurgical changes cervical spin e is redemonstrated. Cholecystectomy clips noted. IMPRESSION: No acute cardiopulmonary process. No significant change from prior.
[2020-09-22] MEDS ORDERED: ACETAMINOPHEN TAB 500 MG TAB PO STA (09:29)
[2020-09-22] MEDS ORDERED: NITROGLYCERIN OINT 1 INCH/GM PACKET TOPICAL STA (09:29)
[2020-09-22 09:38] LABS: ALT 8 U/L (4-49); AST 26 U/L (17-59); African American GFR (CKD) >90 (>60 ml/min/1.73 sqM); Albumin 4.8 g/dL (3.5-5.0); Alkaline Phosphatase 60 U/L (38-126); Amylase 78 U/L (30-110); Anion Gap 9 mmol/L; Blood Urea Nitrogen 12 mg/dL (9-20); Calcium 9.8 mg/dL (8.4-10.2); Carbon Dioxide 22 mmol/L (22-30); Chloride 107 mmol/L (98-107); Glucose 121 mg/dL (74-99); Lipase 182 U/L (23-300); Magnesium 1.8 mg/dL (1.6-2.3); Non-African American GFR(CKD) >90 (>60 ml/min/1.73 sqM); Potassium 4.4 mmol/L (3.5-5.1); Sodium 138 mmol/L (137-145); Total Bilirubin 1.2 mg/dL (0.2-1.3)
[2020-09-22 09:41] LABS: Basophils % (A) 1 %; Eosinophils % (A) 0 %; HCT 44.6 % (39.0-53.0); HGB 13.9 gm/dL (13.0-17.5); Lymphocytes # (A) 1.1 k/uL (1.0-4.8); Lymphocytes % (A) 21 %; MCH 28.5 pg (25.0-35.0); Mean Platelet Volume 6.7; Monocytes # (A) 0.4 k/uL (0-1.0); Monocytes % (A) 7 %; Neutrophils # (A) 3.5 k/uL (1.3-7.7); Neutrophils % (A) 70 %; Platelet Count 341 k/uL (150-450); RBC 4.85 m/uL (4.30-5.90); RDW 14.9 % (11.5-15.5); WBC 5.1 k/uL (3.8-10.6)
[2020-09-22 09:47] LABS: INR 1.1 (<1.2); Partial Thromboplastin Time 24.7 sec (22.0-30.0); Prothrombin Time 10.8 sec (9.0-12.0)
[2020-09-22] MEDS ORDERED: tiZANidine 4 MG TAB PO PRN (10:35)
[2020-09-22] MEDS ORDERED: NITROGLYCERIN SL TABS 0.4 MG TAB SUBLINGUAL PRN ×2 (10:35→11:05)
[2020-09-22] MEDS ORDERED: FLUTICASONE 50MCG/SPRAY NASAL 16GM EA NOSTRIL PRN (10:35)
[2020-09-22] MEDS ORDERED: DICYCLOMINE 10 MG CAP PO PRN (10:35)
[2020-09-22] MEDS: MORPHINE SULFATE ER 30 MG TABLET PO SCH ×2 (12:29→23:10)
[2020-09-22] MEDS: SUCRALFATE 1 GM TAB PO SCH ×2 (12:29→17:31)
[2020-09-22] MEDS: oxyCODONE-APAP 10-325MG 1 EACH TAB PO PRN ×2 (12:30→23:09)
[2020-09-22] MEDS ORDERED: PRASUGREL 10 MG TAB PO STA (12:50)
[2020-09-22] MEDS ORDERED: lisinopriL 20 MG TAB PO STA (12:50)
[2020-09-22] MEDS ORDERED: amLODIPine 5 MG TAB PO STA (12:51)
[2020-09-22] MEDS ORDERED: PANTOPRAZOLE 40 MG TABLET PO STA (12:51)
[2020-09-22] MEDS ORDERED: cloNIDine HCL 0.1 MG TAB PO STA (12:52)
--- NOTE | 2020-09-22 13:07 | P.CRDCN ---
History of Present Illness Consult date: 09/22/20 Consult reason: chest pain History of present illness: This is a 64-year-old -[place] male patient of Dr. BASILIA Go with past medical history significant for coronary artery disease status post PCI, gastritis, hypertension and dyslipidemia. He has undergone PCI of the LAD and diagonal branch, most recent catheterization in April 2019 revealed no evidence of significant progression of disease. Echocardiogram from April 2020 revealed preserved LV systolic function with ejection fraction 55-60%, normal diastolic filling pattern, mild TR and mild pulmonary hypertension with an RVSP of 36 mmHg. Patient gives history of sudden onset of left upper/mid chest pain with radiation down his left arm and numbness of his fingers 1 through 3. Patient was sleeping at the time. He complains of shortness of breath with activity as well as sweats cough and nausea and lightheaded. All symptoms except chest pain started yesterday. Chest pain started this morning. He states he has occasional lower extremity edema. He denies any known exposure to COVID-19 positive people. CBC and electrolytes and renal function unremarkable. Blood sugar was 121. Troponin negative on one drop. Liver function tests within normal limits. Chest x-ray shows no acute cardiopulmonary process. EKG was a sinus rhythm with no acute ST changes. REVIEW OF SYSTEMS At the time of my exam: CONSTITUTIONAL: Denies fever or chills. CARDIOVASCULAR: Reports chest pain, shortness of breath, orthopnea, PND or palpitations. RESPIRATORY: Denies cough. Reports shortness of breath with activity. GASTROINTESTINAL: Denies abdominal pain. Denies diarrhea, constipation, nausea or vomiting. MUSCULOSKELETAL: Denies myalgias. NEUROLOGIC: Denies numbness, tingling or weakness. ENDOCRINE: Denies fatigue, weight change, polydipsia or polyurina. GENITOURINARY: Denies burning, hematuria. PHYSICAL EXAMINATION Blood pressure 135/97, heart rate 84, afebrile, pulse ox 100% on room air. CONSTITUTIONAL: This is a 64-year-old F [place] male, resting in bed and appears to be comfortable and in no acute distress. HEENT: Head is normocephalic. Pupils are equal, round. Sclerae anicteric. Mucous membranes of the mouth are moist. No JVD. No carotid bruit. CHEST EXAMINATION: Lungs are clear to auscultation. No chest wall tenderness is noted on palpation or with deep breathing. HEART EXAMINATION: Regular rate and rhythm. S1, S2 heard. No murmurs, gallops or rub. ABDOMEN: Soft, nontender. Positive bowel sounds. EXTREMITIES: 2+ peripheral pulses, bilateraly lower extremity edema around the ankle non-pitting and no calf tenderness. NEUROLOGIC EXAMINATION: Patient is awake, alert and oriented x3. ASSESSMENT Chest pain. Atypical for angina. Coronary artery disease status post PCI of the LAD and diagonal branch in 2017 Hypertension Dyslipidemia Chronic pain Noncompliance PLAN Repeat troponins 2 No need to repeat echocardiogram as this was done in April Continue amlodipine 5 mg twice daily, Lipitor 80 mg at bedtime, Coreg 12.5 mg twice daily, Catapres 0.1 mg twice daily, lisinopril 40 mg daily, Effient 10 mg daily Follow up with Dr. Go in the office upon discharge. Further recommendations based upon clinical course Thank you kindly for this consultation. Nurse Practitioner note has been reviewed, I agree with a documented findings and plan of care. Patient was seen and examined. Past Medical History Past Medical History: Coronary Artery Disease (CAD), Chest Pain / Angina, COPD, Deep Vein Thrombosis (DVT), GERD/Reflux, Hyperlipidemia, Hypertension, Osteoarthritis (OA), Thyroid Disorder Additional Past Medical History / Comment(s): Occasional palpitations, gastritis, small hiatal hernia, diverticular dx, pt states years ago he had PUD, chronic low back pain, chronic pain syndrome, migraines, DVT L arm, numbness/tingling bilateral lower legs, bilateral past R hand fracture, arthritis multiple joints, hyperthyroid, sinus problems. History of Any Multi-Drug Resistant Organisms: None Reported Past Surgical History: Back Surgery, Cholecystectomy, Heart Catheterization With Stent, Orthopedic Surgery Additional Past Surgical History / Comment(s): EGDs/colonoscopies, multiple low back surgeries, bilateral arm and bilateral thigh surgeries for brown recluse spider bites with infection, morphine pain pump insertion and removal due to infection, PCI with stents, L rotator cuff repair, L knee arthroscopy, cervical fusion/cage, R cataract removal. Past Anesthesia/Blood Transfusion Reactions: No Reported Reaction Additional Past Anesthesia/Blood Transfusion Reaction / Comment(s): Pt states after cervical fusion he "" in the recovery room but does not know cause- he was"gone for 8 minutes" and states he was resusitated. Pt received blood after back surgery and tolerated it well. Date of Last Stent Placement:: 10/12/17 Past Psychological History: No Psychological Hx Reported Additional Psychological History / Comment(s): Pt resides with his spouse. He uses a walker and cane to ambulate. He does not drive, neither does his spouse, they us the bus. Smoking Status: Never smoker Past Alcohol Use History: None Reported Additional Past Alcohol Use History / Comment(s): Pt started smoking in 1973 and quit in 1984 Past Drug Use History: None Reported - Past Family History Father Family Medical History: No Reported History Additional Family Medical History / Comment(s): Father had back problems. He lived to be 82 yrs old. Mother History Unknown: Yes Family Medical History: Hypertension, Myocardial Infarction ([place]) Additional Family Medical History / Comment(s): Mother of a [place] at the age of 55yrs. Brother(s) Family Medical History: Cancer, COPD Additional Family Medical History / Comment(s): Leukemia Medications and Allergies Home Medications Medication Instructions Recorded Confirmed Type Fluticasone Nasal [place] [Flonase 1 spray EA NOSTRIL BID PRN 04/20/17 09/22/20 History Nasal [place]] Morphine Sulfate ER [Ms Contin] 30 mg PO Q8H 10/10/17 09/22/20 History Atorvastatin [Lipitor] 80 mg PO HS #30 tab 10/12/17 09/22/20 Rx tiZANidine [Zanaflex] 4 mg PO TID PRN 02/26/18 09/22/20 History cloNIDine HCL [Catapres] 0.1 mg PO BID #60 tab 02/08/19 09/22/20 Rx Ezetimibe [Zetia] 10 mg PO DAILY #30 tab 05/24/19 09/22/20 Rx amLODIPine [Norvasc] 5 mg PO BID #60 tab 05/24/19 09/22/20 Rx Nitroglycerin Sl Tabs [Nitrostat] 0.4 mg SUBLINGUAL Q5M PRN #20 tab 07/02/19 09/22/20 Rx Aspirin EC [Ecotrin Low Dose] 81 mg PO DAILY 01/02/20 09/22/20 History carvediloL [Coreg*] 12.5 mg PO AC-BID 01/02/20 09/22/20 History oxyCODONE-APAP 10-325MG [Percocet 1 tab PO Q8H PRN 01/02/20 09/22/20 History 10-325 mg] Prasugrel [Effient] 10 mg PO DAILY 08/06/20 09/22/20 History lisinopriL 40 mg PO DAILY 08/06/20 09/22/20 History Dicyclomine [Bentyl] 10 mg PO QID PRN #90 cap 08/12/20 09/22/20 Rx Pantoprazole Sodium [Protonix] 40 mg PO DAILY #30 tab 08/12/20 09/22/20 Rx Sucralfate [Carafate] 1 gm PO AC-TID #90 tab 08/12/20 09/22/20 Rx polyethylene glycoL 3350 [Miralax] 17 gm PO DAILY powd.pack 08/12/20 09/22/20 Rx Allergies Allergy/AdvReac Type Severity Reaction Status Date / Time ibuprofen [From Motrin] Allergy Rash/Hives Verified 09/22/20 09:22 ketorolac tromethamine Allergy Rash/Hives Verified 09/22/20 09:22 [From Toradol] Physical Exam Vitals: Vital Signs Temp Pulse Pulse Resp BP BP Pulse Ox 09/22/20 11:45 97.3 F L 84 18 135/97 100 09/22/20 10:20 92 16 149/91 99 09/22/20 09:36 86 16 133/90 99 09/22/20 08:31 97.4 F L 113 H 19 122/82 98 Intake and Output 09/21/20 09/22/20 09/22/20 22:59 06:59 14:59 Other: Weight 83.915 kg Results 09/22/20 08:57 09/22/20 08:57 Cardiac Enzymes 09/22/20 09/22/20 Range/Units 08:57 08:57 AST 26 (17-59) U/L Troponin I <0.012 (0.000-0.034) ng/mL Coagulation 09/22/20 Range/Units 08:57 PT 10.8 (9.0-12.0) sec APTT 24.7 (22.0-30.0) sec CBC 09/22/20 Range/Units 08:57 WBC 5.1 (3.8-10.6) k/uL RBC 4.85 (4.30-5.90) m/uL Hgb 13.9 (13.0-17.5) gm/dL Hct 44.6 (39.0-53.0) % Plt Count 341 (150-450) k/uL Comprehensive Metabolic Panel 09/22/20 Range/Units 08:57 Sodium 138 (137-145) mmol/L Potassium 4.4 (3.5-5.1) mmol/L Chloride 107 (98-107) mmol/L Carbon Dioxide 22 (22-30) mmol/L BUN 12 (9-20) mg/dL Creatinine 0.69 (0.66-1.25) mg/dL Glucose 121 H (74-99) mg/dL Calcium 9.8 (8.4-10.2) mg/dL AST 26 (17-59) U/L ALT 8 (4-49) U/L Alkaline Phosphatase 60 (38-126) U/L Total Protein 8.0 (6.3-8.2) g/dL Albumin 4.8 (3.5-5.0) g/dL Current Medications Generic Name Dose Route Start Last Admin Trade Name Freq PRN Reason Stop Dose Admin Amlodipine Besylate 5 mg 09/22/20 21:00 Amlodipine 5 Mg Tab PO BID [facility] Aspirin 81 mg 09/23/20 09:00 Aspirin 81 Mg PO DAILY [facility] Atorvastatin Calcium 80 mg 09/22/20 21:00 Atorvastatin 80 Mg Tab PO HS [facility] Carvedilol 12.5 mg 09/22/20 17:30 Carvedilol 12.5 Mg Tab PO AC-BID [facility] Clonidine 0.1 mg 09/22/20 21:00 Clonidine Hcl 0.1 Mg Tab PO BID [facility] Dicyclomine HCl 10 mg 09/22/20 10:35 Dicyclomine 10 Mg Cap PO QID PRN IBS Ezetimibe 10 mg 09/23/20 09:00 Ezetimibe 10 Mg Tab PO DAILY [facility] Fluticasone Propionate 1 spray 09/22/20 10:35 Fluticasone 50mcg/[place] Nasal 16gm EA NOSTRIL BID PRN Allergy Symptoms Sodium Chloride 1,000 mls @ 100 mls/hr 09/22/20 08:40 09/22/20 09:05 Saline 0.9% IV 09/22/20 18:39 100 mls/hr .Q10H STA Administration Lisinopril 40 mg 09/23/20 09:00 Lisinopril 20 Mg Tab PO DAILY [facility] Morphine Sulfate 30 mg 09/22/20 12:00 Morphine Sulfate Er 30 Mg Tablet PO Q8HR [facility] Nitroglycerin 0.4 mg 09/22/20 10:35 Nitroglycerin Sl Tabs 0.4 Mg Tab SUBLINGUAL Q5M PRN Chest Pain Oxycodone/Acetaminophen 1 each 09/22/20 10:35 Oxycodone-Apap 10-325mg 1 Each Tab PO Q8H PRN Pain Pantoprazole Sodium 40 mg 09/23/20 09:00 Pantoprazole 40 Mg Tablet PO DAILY [facility] Polyethylene Glycol 17 gm 09/23/20 09:00 Polyethylene Glycol 3350 17 Gm Powd.Pack PO DAILY [facility] Prasugrel 10 mg 09/23/20 09:00 Prasugrel 10 Mg Tab PO DAILY [facility] Sucralfate 1 gm 09/22/20 12:30 Sucralfate 1 Gm Tab PO AC-TID [facility] Tizanidine HCl 4 mg 09/22/20 10:35 Tizanidine 4 Mg Tab PO TID PRN Muscle Spasm Intake and Output 09/21/20 09/22/20 09/22/20 22:59 06:59 14:59 Other: Weight 83.915 kg Patient Weight 09/23/20 05:59 Weight 83.915 kg 09/22/20 08:57 09/22/20 08:57
[2020-09-22] MEDS: PROMETHAZINE 25 MG TAB PO PRN ×2 (14:37→21:21)
[2020-09-22] MEDS ORDERED: NALOXONE 0.4 MG/ML 1 ML VIAL IV PRN (14:38)
[2020-09-22] MEDS ORDERED: ACETAMINOPHEN TAB 325 MG TAB PO PRN (14:38)
--- NOTE | 2020-09-22 14:40 | P.HPIM ---
History of Present Illness H&P Date: 09/22/20 Patient is a 64-year-old male with a PMH of coronary artery disease status post CABG and multiple stents, hypertension, hyperlipidemia, history of DVT, COPD, and chronic lower back pain who presented to the ED with chest pain. Patient reports chest pain that started at 4:30 AM. He described the chest pain as pressure-like radiating to the left jaw and left arm. Pain is 9 out of 10 in severity. Patient requested 1 dose of Dilaudid during this encounter. Pain is constant which prompted patient to come to the ED. Patient also has complaints of abdominal pain with nausea and vomiting. He denies any headache, lower extremity edema, fever or chills, cough, shortness of breath, palpitations, changes in urination or bowel habits. No changes in appetite or weight. He denies any dizziness, numbness/weakness/tingling of the extremities. In the ED, his vital signs are stable except for pulse of 113. CBC was unremarkable. INR was 1.1. CMP was unremarkable except for glucose of 121. BNP was negative. Troponin was less than 0.0122, EKG showing sinus tachycardia with inverted T waves. Lipase was negative. Chest x-ray was negative. Patient is a bit of her chest pain, rule out acute coronary syndrome along with abdominal discomfort with nausea and vomiting. Review of Systems Pertinent positives and negatives as discussed in HPI, a complete review of systems was performed and all other systems are negative. Past Medical History Past Medical History: Coronary Artery Disease (CAD), Chest Pain / Angina, COPD, Deep Vein Thrombosis (DVT), GERD/Reflux, Hyperlipidemia, Hypertension, Osteoarthritis (OA), Thyroid Disorder Additional Past Medical History / Comment(s): Occasional palpitations, gastritis, small hiatal hernia, diverticular dx, pt states years ago he had PUD, chronic low back pain, chronic pain syndrome, migraines, DVT L arm, numbness/tingling bilateral lower legs, bilateral past R hand fracture, arthritis multiple joints, hyperthyroid, sinus problems. History of Any Multi-Drug Resistant Organisms: None Reported Past Surgical History: Back Surgery, Cholecystectomy, Heart Catheterization With Stent, Orthopedic Surgery Additional Past Surgical History / Comment(s): EGDs/colonoscopies, multiple low back surgeries, bilateral arm and bilateral thigh surgeries for brown recluse spider bites with infection, morphine pain pump insertion and removal due to infection, PCI with stents, L rotator cuff repair, L knee arthroscopy, cervical fusion/cage, R cataract removal. Past Anesthesia/Blood Transfusion Reactions: No Reported Reaction Additional Past Anesthesia/Blood Transfusion Reaction / Comment(s): Pt states a fter cervical fusion he "" in the recovery room but does not know cause- he was"gone for 8 minutes" and states he was resusitated. Pt received blood after back surgery and tolerated it well. Date of Last Stent Placement:: 10/12/17 Past Psychological History: No Psychological Hx Reported Additional Psychological History / Comment(s): Pt resides with his spouse. He uses a walker and cane to ambulate. He does not drive, neither does his spouse, they us the bus. Smoking Status: Never smoker Past Alcohol Use History: None Reported Additional Past Alcohol Use History / Comment(s): Pt started smoking in 1973 and quit in 1984 Past Drug Use History: None Reported - Past Family History Father Family Medical History: No Reported History Additional Family Medical History / Comment(s): Father had back problems. He lived to be 82 yrs old. Mother History Unknown: Yes Family Medical History: Hypertension, Myocardial Infarction ([place]) Additional Family Medical History / Comment(s): Mother of a [place] at the age of 55yrs. Brother(s) Family Medical History: Cancer, COPD Additional Family Medical History / Comment(s): Leukemia Medications and Allergies Home Medications Medication Instructions Recorded Confirmed Type Fluticasone Nasal [place] [Flonase 1 spray EA NOSTRIL BID PRN 04/20/17 09/22/20 History Nasal [place]] Morphine Sulfate ER [Ms Contin] 30 mg PO Q8H 10/10/17 09/22/20 History Atorvastatin [Lipitor] 80 mg PO HS #30 tab 10/12/17 09/22/20 Rx tiZANidine [Zanaflex] 4 mg PO TID PRN 02/26/18 09/22/20 History cloNIDine HCL [Catapres] 0.1 mg PO BID #60 tab 02/08/19 09/22/20 Rx Ezetimibe [Zetia] 10 mg PO DAILY #30 tab 05/24/19 09/22/20 Rx amLODIPine [Norvasc] 5 mg PO BID #60 tab 05/24/19 09/22/20 Rx Nitroglycerin Sl Tabs [Nitrostat] 0.4 mg SUBLINGUAL Q5M PRN #20 tab 07/02/19 09/22/20 Rx Aspirin EC [Ecotrin Low Dose] 81 mg PO DAILY 01/02/20 09/22/20 History carvediloL [Coreg*] 12.5 mg PO AC-BID 01/02/20 09/22/20 History oxyCODONE-APAP 10-325MG [Percocet 1 tab PO Q8H PRN 01/02/20 09/22/20 History 10-325 mg] Prasugrel [Effient] 10 mg PO DAILY 08/06/20 09/22/20 History lisinopriL 40 mg PO DAILY 08/06/20 09/22/20 History Dicyclomine [Bentyl] 10 mg PO QID PRN #90 cap 08/12/20 09/22/20 Rx Pantoprazole Sodium [Protonix] 40 mg PO DAILY #30 tab 08/12/20 09/22/20 Rx Sucralfate [Carafate] 1 gm PO AC-TID #90 tab 08/12/20 09/22/20 Rx polyethylene glycoL 3350 [Miralax] 17 gm PO DAILY powd.pack 08/12/20 09/22/20 Rx Allergies Allergy/AdvReac Type Severity Reaction Status Date / Time ibuprofen [From Motrin] Allergy Rash/Hives Verified 09/22/20 09:22 ketorolac tromethamine Allergy Rash/Hives Verified 09/22/20 09:22 [From Toradol] Physical Exam Vitals: Vital Signs Temp Pulse Pulse Resp BP BP Pulse Ox 09/22/20 11:45 97.3 F L 84 18 135/97 100 09/22/20 10:20 92 16 149/91 99 09/22/20 09:36 86 16 133/90 99 09/22/20 08:31 97.4 F L 113 H 19 122/82 98 Intake and Output 09/21/20 09/22/20 09/22/20 22:59 06:59 14:59 Other: # Voids 1 Weight 83.915 kg General: [non toxic], [no distress], [appears at stated age] Derm: [warm], [dry] Head: [atraumatic], [normocephalic], [symmetric] Eyes: [EOMI], [no lid lag], [anicteric sclera] Mouth: [no lip lesion], [mucus membranes moist] Cardiovascular: [S1S2 reg], [no murmur], [positive posterior tibial pulse bilateral], Lungs: [CTA bilateral], [no rhonchi, no rales] , [no accessory muscle use] Abdominal: [soft], [ nontender to palpation], [no guarding], [no appreciable organomegaly] Ext: [no gross muscle atrophy], [no edema], [no contractures] Neuro: [ CN II-XI grossly intact], [no focal neuro deficits] Psych: [Alert], [oriented], [appropriate affect] Results CBC & Chem 7: 09/22/20 08:57 09/22/20 08:57 Labs: Abnormal Lab Results - Last 24 Hours (Table) 09/22/20 Range/Units 08:57 Glucose 121 H (74-99) mg/dL Thrombosis Risk Factor Assmnt - Choose All That Apply Any of the Below Risk Factors Present?: Yes Each Factor Represents 1 point: Age 41-60 years Other Risk Factors: No Thrombosis Risk Factor Assessment Total Risk Factor Score: 1 Thrombosis Risk Factor Assessment Level: Low Risk Assessment and Plan Assessment: Chest pain with history of CAD and stent placement Nausea and vomiting with history of gastritis and duodenitis Chronic conditions: Hypertension, chronic opiate dependency due to lower back pain, COPD, DVT, dyslipidemia, hypothyroidism Patient has typical chest pain. He is high risk given history of multiple stents. Troponin has been less than 0.0122 with EKG showing sinus tachycardia with T-wave inversions. Plans: Trend troponin/EKG to rule out ACS. Continue aspirin and Lipitor. Continue beta jerald. Telemetry monitoring. Heart healthy diet. Follow cardiology consultation. Patient had EGD during his previous admission which showed gastritis and duodenitis. Plans: Continue Phenergan. Continue Bentyl. Continue Protonix by mouth. Continue Carafate. DVT prophylaxis: [SCD boots] Discussed with: [Patient and nursing] Anticipated discharge: [1-2 days] Anticipated discharge place: [Home] A total of [35] minutes was spent on the care of this complex patient more than 50% of the time was spent in counseling and care coordination. Patient names his Siva decision maker if he can't make decisions for himself. Patient would like to be full code.
[2020-09-22] MEDS: carvediloL 12.5 MG TAB PO SCH (17:31)
[2020-09-22] MEDS ORDERED: HYDROmorphone 1 MG/ML 1 ML SYRINGE IVP ONE (19:00)
[2020-09-22] MEDS ORDERED: ATORVASTATIN 80 MG TAB PO SCH (21:00)
[2020-09-22] MEDS: amLODIPine 5 MG TAB PO SCH (21:22)
[2020-09-22] MEDS: cloNIDine HCL 0.1 MG TAB PO SCH (21:22)
[2020-09-23] MEDS ORDERED: HYDROmorphone 1 MG/ML 1 ML SYRINGE IVP STA (04:13)
[2020-09-23 05:30] LABS: Cholesterol 181 mg/dL (<200); HDL Cholesterol 57 mg/dL (40-60); LDL Cholesterol,Calculated 102 mg/dL (0-99); Triglycerides 109 mg/dL (<150)
[2020-09-23] MEDS: carvediloL 12.5 MG TAB PO SCH (06:36)
[2020-09-23] MEDS: SUCRALFATE 1 GM TAB PO SCH (06:36)
--- NOTE | 2020-09-23 07:50 | P.PN ---
Subjective Progress Note Date: 09/23/20 This is a 64-year-old -[place] male patient of Dr. BASILIA Go with past medical history significant for coronary artery disease status post PCI, gastritis, hypertension and dyslipidemia. He has undergone PCI of the LAD and diagonal branch, most recent catheterization in April 2019 revealed no evidence of significant progression of disease. Echocardiogram from April 2020 revealed preserved LV systolic function with ejection fraction 55-60%, normal diastolic filling pattern, mild TR and mild pulmonary hypertension with an RVSP of 36 mmHg. Patient gives history of sudden onset of left upper/mid chest pain with radiation down his left arm and numbness of his fingers 1 through 3. Patient was sleeping at the time. He complains of shortness of breath with activity as well as sweats cough and nausea and lightheaded. All symptoms except chest pain started yesterday. Chest pain started this morning. He states he has occasional lower extremity edema. He denies any known exposure to COVID-19 p ositive people. CBC and electrolytes and renal function unremarkable. Blood sugar was 121. Troponin negative on one drop. Liver function tests within normal limits. Chest x-ray shows no acute cardiopulmonary process. EKG was a sinus rhythm with no acute ST changes. 09/23: Patient continues to have chest pain which he rates as a #8. He also is having epigastric pain and nausea. He is tender in the epigastric region. Troponins were negative on 3 draws. PHYSICAL EXAMINATION CONSTITUTIONAL: This is a 64-year-old F [place] male, resting in bed and appears to be comfortable and in no acute distress. HEENT: Head is normocephalic. Pupils are equal, round. Sclerae anicteric. Mucous membranes of the mouth are moist. No JVD. No carotid bruit. CHEST EXAMINATION: Lungs are clear to auscultation. No chest wall tenderness is noted on palpation or with deep breathing. HEART EXAMINATION: Regular rate and rhythm. S1, S2 heard. No murmurs, gallops or rub. ABDOMEN: Soft, epigastric tenderness. Positive bowel sounds. EXTREMITIES: 2+ peripheral pulses, bilateraly lower extremity edema around the ankle non-pitting and no calf tenderness. NEUROLOGIC EXAMINATION: Patient is awake, alert and oriented x3. ASSESSMENT Chest pain. Atypical for angina. Epigastric [ain Coronary artery disease status post PCI of the LAD and diagonal branch in 2017 Hypertension Dyslipidemia Chronic pain Noncompliance PLAN No need to repeat echocardiogram as this was done in April Continue amlodipine 5 mg twice daily, Lipitor 80 mg at bedtime, Coreg 12.5 mg twice daily, Catapres 0.1 mg twice daily, lisinopril 40 mg daily, Effient 10 mg daily Follow up with Dr. Go in the office upon discharge. Patient is cleared for discharge from cardiology. Thank you kindly for this consultation. Nurse Practitioner note has been reviewed, I agree with a documented findings and plan of care. Patient was seen and examined. Objective - Vital Signs Vital signs: Vital Signs Temp 97.2 F L 09/23/20 03:00 Pulse 82 09/23/20 03:27 Resp 18 09/23/20 03:27 BP 151/105 09/23/20 03:00 Pulse Ox 99 09/23/20 03:00 Intake & Output 09/22/20 09/23/20 09/23/20 19:59 06:59 18:59 Weight Other: Voiding Method # Voids - Labs CBC & Chem 7: 09/22/20 08:57 09/22/20 08:57 Labs: Abnormal Lab Results - Last 24 Hours (Table) 09/22/20 09/22/20 Range/Units 08:57 08:57 Glucose 121 H (74-99) mg/dL LDL Cholesterol, Calc 102 H (0-99) mg/dL
[2020-09-23] MEDS: MORPHINE SULFATE ER 30 MG TABLET PO SCH ×2 (07:52→08:12)
[2020-09-23 08:05] VITALS: BP 173/103; PULSE 90; RESP 16; TEMP 97.7
[2020-09-23] MEDS: oxyCODONE-APAP 10-325MG 1 EACH TAB PO PRN (08:12)
[2020-09-23] MEDS: amLODIPine 5 MG TAB PO SCH (08:13)
[2020-09-23] MEDS: cloNIDine HCL 0.1 MG TAB PO SCH (08:13)
[2020-09-23] MEDS ORDERED: ASPIRIN 81 MG PO SCH (09:00)
[2020-09-23] MEDS ORDERED: ASPIRIN 325 MG TAB PO SCH (09:00)
[2020-09-23] MEDS ORDERED: PRASUGREL 10 MG TAB PO SCH (09:00)
[2020-09-23] MEDS ORDERED: EZETIMIBE 10 MG TAB PO SCH (09:00)
[2020-09-23] MEDS ORDERED: polyethylene glycoL 3350 17 GM POWD.PACK PO SCH (09:00)
[2020-09-23] MEDS ORDERED: PANTOPRAZOLE 40 MG TABLET PO SCH (09:00)
[2020-09-23] MEDS ORDERED: lisinopriL 20 MG TAB PO SCH (09:00)
[2020-09-23] MEDS: PROMETHAZINE 25 MG TAB PO PRN (09:25)
--- NOTE | 2020-09-23 11:11 | P.DS ---
Providers Date of admission: 09/22/20 11:02 Expected date of discharge: 09/23/20 Attending physician: Ginny Morgan DO Consults: 09/22/20 11:05 Consult Physician Urgent Consulting Provider: Manuel Razo Consult Reason/Comments: chest pain Do you want consulting provider notified?: Yes Primary care physician: Stated None Hospital Course: Discharge Diagnosis: [Chest pain with history of CAD and stent placement Chronic Nausea and vomiting with history of gastritis and duodenitis Chronic conditions: Hypertension, chronic opiate dependency due to lower back pain, COPD, DVT, dyslipidemia, hypothyroidism] Hospital Course: [Patient is a 64-year-old male with a PMH of coronary artery disease status post CABG and multiple stents, hypertension, hyperlipidemia, history of DVT, COPD, and chronic lower back pain who presented to the ED with chest pain. Patient was admitted for ACS rule out. His troponins are negative 3. Patient was seen by cardiology who deemed him stable for discharge. Patient has chronic nausea and vomiting and he has a history of gastritis and duodenitis. Patient has had multiple admissions for nausea and vomiting. He is well-known to our service. Patient instructed to follow-up with GI as previously instructed. At the time of discharge patient states that he has an appointment with pain management tomorrow and he is out of his pain meds so is requesting to stay later in the evening so that he could get his pain medication. Patient also admitted that he had been taking his pain medicine more frequently than prescribed. I told patient that this is likely a violation of his pain contract and he needs to discuss this with the pain management physician. Patient was clearly told that we cannot keep him here so that he can receive his pain medicine that he ran out of. 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 Patient Condition at Discharge: Stable Plan - Discharge Summary New Discharge Prescriptions: New Promethazine [Phenergan] 25 mg PO Q6HR PRN tab PRN Reason: Nausea Continue Fluticasone Nasal [place] [Flonase Nasal [place]] 1 spray EA NOSTRIL BID PRN PRN Reason: Allergy Symptoms Morphine Sulfate ER [Ms Contin] 30 mg PO Q8H Atorvastatin [Lipitor] 80 mg PO HS #30 tab tiZANidine [Zanaflex] 4 mg PO TID PRN PRN Reason: Muscle Spasm cloNIDine HCL [Catapres] 0.1 mg PO BID #60 tab amLODIPine [Norvasc] 5 mg PO BID #60 tab Ezetimibe [Zetia] 10 mg PO DAILY #30 tab Nitroglycerin Sl Tabs [Nitrostat] 0.4 mg SUBLINGUAL Q5M PRN #20 tab PRN Reason: Chest Pain oxyCODONE-APAP 10-325MG [Percocet 10-325 mg] 1 tab PO Q8H PRN PRN Reason: Pain Aspirin EC [Ecotrin Low Dose] 81 mg PO DAILY carvediloL [Coreg*] 12.5 mg PO AC-BID lisinopriL 40 mg PO DAILY Prasugrel [Effient] 10 mg PO DAILY Sucralfate [Carafate] 1 gm PO AC-TID #90 tab polyethylene glycoL 3350 [Miralax] 17 gm PO DAILY powd.pack Pantoprazole Sodium [Protonix] 40 mg PO DAILY #30 tab Dicyclomine [Bentyl] 10 mg PO QID PRN #90 cap PRN Reason: IBS Discharge Medication List Fluticasone Nasal [place] [Flonase Nasal [place]] 1 spray EA NOSTRIL BID PRN 04/20/17 [History] Morphine Sulfate ER [Ms Contin] 30 mg PO Q8H 10/10/17 [History] Atorvastatin [Lipitor] 80 mg PO HS #30 tab 10/12/17 [Rx] tiZANidine [Zanaflex] 4 mg PO TID PRN 02/26/18 [History] cloNIDine HCL [Catapres] 0.1 mg PO BID #60 tab 02/08/19 [Rx] Ezetimibe [Zetia] 10 mg PO DAILY #30 tab 05/24/19 [Rx] amLODIPine [Norvasc] 5 mg PO BID #60 tab 05/24/19 [Rx] Nitroglycerin Sl Tabs [Nitrostat] 0.4 mg SUBLINGUAL Q5M PRN #20 tab 07/02/19 [Rx] Aspirin EC [Ecotrin Low Dose] 81 mg PO DAILY 01/02/20 [History] carvediloL [Coreg*] 12.5 mg PO AC-BID 01/02/20 [History] oxyCODONE-APAP 10-325MG [Percocet 10-325 mg] 1 tab PO Q8H PRN 01/02/20 [History] Prasugrel [Effient] 10 mg PO DAILY 08/06/20 [History] lisinopriL 40 mg PO DAILY 08/06/20 [History] Pantoprazole Sodium [Protonix] 40 mg PO DAILY #30 tab 08/12/20 [Rx] Sucralfate [Carafate] 1 gm PO AC-TID #90 tab 08/12/20 [Rx] polyethylene glycoL 3350 [Miralax] 17 gm PO DAILY powd.pack 08/12/20 [Rx] Dicyclomine [Bentyl] 10 mg PO QID PRN #90 cap 09/23/20 [Rx] Promethazine [Phenergan] 25 mg PO Q6HR PRN tab 09/23/20 [Rx] Follow up Appointment(s)/Referral(s): None,Stated [Primary Care Provider] - 1-2 days
== END 2020-09-23 11:50 | disposition home or self-care (01) ==
LOC: EC 08:28 → 3NCARDOBS 11:02
PROVIDERS: ADMIT Internal Medicine; ATTEND Internal Medicine
DX: R07.9 Chest pain, unspecified (principal); R11.2 Nausea with vomiting, unspecified; I10 Essential (primary) hypertension; I25.10 Atherosclerotic heart disease of native coronary artery without angina pectoris; F11.20 Opioid dependence, uncomplicated; M54.5 Low back pain; J44.9 Chronic obstructive pulmonary disease, unspecified; Z86.718 Personal history of other venous thrombosis and embolism; E78.5 Hyperlipidemia, unspecified; E03.9 Hypothyroidism, unspecified; I25.2 Old myocardial infarction; Z91.19 Patient's noncompliance with other medical treatment and regimen; R00.0 Tachycardia, unspecified; M19.90 Unspecified osteoarthritis, unspecified site; K44.9 Diaphragmatic hernia without obstruction or gangrene; Z87.11 Personal history of peptic ulcer disease; G89.4 Chronic pain syndrome; G43.909 Migraine, unspecified, not intractable, without status migrainosus; R20.0 Anesthesia of skin; R20.2 Paresthesia of skin; Z90.49 Acquired absence of other specified parts of digestive tract; Z95.5 Presence of coronary angioplasty implant and graft; Z98.1 Arthrodesis status; Z98.890 Other specified postprocedural states; Z82.49 Family history of ischemic heart disease and other diseases of the circulatory system; Z82.5 Family history of asthma and other chronic lower respiratory diseases; Z80.6 Family history of leukemia; Z98.41 Cataract extraction status, right eye; Z95.1 Presence of aortocoronary bypass graft; Z87.891 Personal history of nicotine dependence; Z79.02 Long term (current) use of antithrombotics/antiplatelets; Z79.82 Long term (current) use of aspirin; Z79.899 Other long term (current) drug therapy; Z88.6 Allergy status to analgesic agent
CPT/HCPCS: 93005 ×2; 96375 ×2; 96376; 96361; 96374; 99285; 36415; 83880; 80061; 80053; 82150; 83690; 83735; 84484; 85025; 85610; 85730; 71046; G0378 ×2; J2405; J1170 ×2; C9113

== ENCOUNTER → 2020-10-09 | Outpatient (CLI) | payer MEDICARE ==
--- NOTE | 2020-10-09 17:47 | MR ---
EXAMINATION TYPE: MR shoulder LT wo con DATE OF EXAM: 10/09/2020 COMPARISON: None HISTORY: Lt shoulder pain TECHNIQUE: Multiplanar, multisequence imaging of the left shoulder is performed without contrast. FINDINGS: Rotator Cuff: There is thickening of the rotator cuff, abnormal increased intrinsic signal is present . No valerie rotator cuff tear, partial thickness tear may be present of the infraspinatus tendon near its insertion, sagittal image #8. Acromioclavicular Joint: Some hypertrophic changes present. There is a distal acromial spur. Glenohumeral Joint: Intact. Some spurring is present at the humeral head. Subchondral increased signa l on T2-weighted sequences within the inferior labrum may represent reactive marrow signal change Labrum: Along the anterior labrum, axial image #10 there is an oval focus of increased signal on T2-w eighted sequences measuring 17 mm x 20 mm deep to the subscapularis musculotendinous junction. Diffic ult to exclude an underlying labral tear, para labral cyst, similar findings seen on the same axial s ection the posterior labrum. Biceps Tendon: The long head of biceps is in normal location within bicipital groove, fluid signal is present along the tendon. Bone marrow signal: Probable pseudocysts present within the humeral head anteriorly and posterior lat erally Other: No additional significant abnormality is appreciated. IMPRESSION: Probable tendinosis involving the rotator cuff, partial thickness tear suspected. Possible ganglion o r para labral cyst, difficult to exclude labral tear. Correlate for impingement, there is a distal ac romial spur. Additional findings above.
--- NOTE | 2020-10-09 18:18 | MR ---
EXAMINATION TYPE: MR shoulder RT wo con DATE OF EXAM: 10/09/2020 COMPARISON: None HISTORY: Rt shoulder pain TECHNIQUE: Multiplanar, multisequence imaging of the right shoulder is performed without contrast. FINDINGS: Rotator Cuff: There is abnormal thickening and increased signal within the rotator cuff, at the poste rior aspect of the rotator cuff tendon insertion there is abnormal increased signal, coronal image #2 0, partial thickness tear may be present. Acromioclavicular Joint: Some hypertrophic change causes mild mass effect on the musculotendinous amanda ction of supraspinatus, there is a distal acromial spur Glenohumeral Joint: Osteoarthritic changes present, there is remodeling of the humeral head. Probable subchondral geode formation within the bony glenoid. Abnormal signal is present inferior bony labrum which shows somewhat irregular appearance, remodeling. Labrum: Along the anterior labrum due to the musculotendinous junction of subscapularis there is a lo bular focus of increased signal in T2-weighted sequences which could possibly represent a para labral cyst, but a anterior labrum appears somewhat irregular at this level, possible degenerative tear. In ferior labrum and also is not well-defined. Biceps Tendon: Fluid signal is present along the long head of biceps tendon Bone marrow signal: Pseudocysts are present within the humeral head. Some reactive marrow signal chino ges are also suspected. Other: Some fluid signal is present in the subacromial subdeltoid bursa region. IMPRESSION: Osteoarthritis. Tendinosis of the rotator cuff, difficult to exclude a small partial thickness tear. Correlate for impingement. There may be degenerative tear of the glenoid labrum. Possible para labral cyst.
== END | disposition home or self-care (01) ==
LOC: RADMRIMAIN 14:39
PROVIDERS: ATTEND Orthopaedic Surgery
DX: M19.011 Primary osteoarthritis, right shoulder (principal); M75.21 Bicipital tendinitis, right shoulder; M25.512 Pain in left shoulder; G89.29 Other chronic pain

== ENCOUNTER 2020-10-20 15:10 | Observation (INO) | payer MEDICARE ==
[2020-10-20] MEDS ORDERED: MORPHINE SULFATE 4 MG/ML SYRINGE IV STA (15:21)
[2020-10-20] MEDS ORDERED: ASPIRIN 325 MG TAB PO STA (15:30)
--- NOTE | 2020-10-20 15:32 | ED ---
General Adult HPI - General Chief complaint: Chest Pain Stated complaint: Chest Pain Time Seen by Provider: 10/20/20 15:21 Source: patient, RN notes reviewed, old records reviewed Mode of arrival: ambulatory Limitations: no limitations - History of Present Illness Initial comments: 64-year-old male with known CAD presenting for evaluation of chest pain which began at approximately 1 PM this afternoon while at rest. He is presenting at approximately 3:30 PM. Patient reports a nonexertional central chest pain radiating to his left jaw. He states he did have some nausea without vomiting. He additionally complains of some epigastric abdominal pain. He has been compliant with his medications which include Effient. He does note some mild increased lower extremity swelling over the past several days. No significant dyspnea. Mild cough. No fever. - Related Data Home Medications Medication Instructions Recorded Confirmed Fluticasone Nasal [place] [Flonase 1 spray EA NOSTRIL BID PRN 04/20/17 09/22/20 Nasal [place]] Morphine Sulfate ER [Ms Contin] 30 mg PO Q8H 10/10/17 09/22/20 tiZANidine [Zanaflex] 4 mg PO TID PRN 02/26/18 09/22/20 Aspirin EC [Ecotrin Low Dose] 81 mg PO DAILY 01/02/20 09/22/20 carvediloL [Coreg*] 12.5 mg PO AC-BID 01/02/20 09/22/20 oxyCODONE-APAP 10-325MG [Percocet 1 tab PO Q8H PRN 01/02/20 09/22/20 10-325 mg] Prasugrel [Effient] 10 mg PO DAILY 08/06/20 09/22/20 lisinopriL 40 mg PO DAILY 08/06/20 09/22/20 Previous Rx's Medication Instructions Recorded Atorvastatin [Lipitor] 80 mg PO HS #30 tab 10/12/17 cloNIDine HCL [Catapres] 0.1 mg PO BID #60 tab 02/08/19 Ezetimibe [Zetia] 10 mg PO DAILY #30 tab 05/24/19 amLODIPine [Norvasc] 5 mg PO BID #60 tab 05/24/19 Nitroglycerin Sl Tabs [Nitrostat] 0.4 mg SUBLINGUAL Q5M PRN #20 tab 07/02/19 Pantoprazole Sodium [Protonix] 40 mg PO DAILY #30 tab 08/12/20 Sucralfate [Carafate] 1 gm PO AC-TID #90 tab 08/12/20 polyethylene glycoL 3350 [Miralax] 17 gm PO DAILY powd.pack 08/12/20 Dicyclomine [Bentyl] 10 mg PO QID PRN #90 cap 09/23/20 Promethazine [Phenergan] 25 mg PO Q6HR PRN tab 09/23/20 Allergies Allergy/AdvReac Type Severity Reaction Status Date / Time ibuprofen [From Motrin] Allergy Rash/Hives Verified 10/20/20 15:14 ketorolac tromethamine Allergy Rash/Hives Verified 10/20/20 15:14 [From Toradol] Review of Systems ROS Statement: Those systems with pertinent positive or pertinent negative responses have been documented in the HPI. ROS Other: All systems not noted in ROS Statement are negative. Past Medical History Past Medical History: Coronary Artery Disease (CAD), Chest Pain / Angina, COPD, Deep Vein Thrombosis (DVT), GERD/Reflux, Hyperlipidemia, Hypertension, Osteoarthritis (OA), Thyroid Disorder Additional Past Medical History / Comment(s): Occasional palpitations, gastritis, small hiatal hernia, diverticular dx, pt states years ago he had PUD, chronic low back pain, chronic pain syndrome, migraines, DVT L arm, numbness/tingling bilateral lower legs, bilateral past R hand fracture, arthritis multiple joints, hyperthyroid, sinus problems. History of Any Multi-Drug Resistant Organisms: None Reported Past Surgical History: Back Surgery, Cholecystectomy, Heart Catheterization With Stent, Orthopedic Surgery Additional Past Surgical History / Comment(s): EGDs/colonoscopies, multiple low back surgeries, bilateral arm and bilateral thigh surgeries for brown recluse spider bites with infection, morphine pain pump insertion and removal due to infection, PCI with stents, L rotator cuff repair, L knee arthroscopy, cervical fusion/cage, R cataract removal. Past Anesthesia/Blood Transfusion Reactions: No Reported Reaction Additional Past Anesthesia/Blood Transfusion Reaction / Comment(s): Pt states after cervical fusion he "" in the recovery room but does not know cause- he was"gone for 8 minutes" and states he was resusitated. Pt received blood after back surgery and tolerated it well. Date of Last Stent Placement:: 10/12/17 Past Psychological History: No Psychological Hx Reported Smoking Status: Never smoker Past Alcohol Use History: None Reported Past Drug Use History: None Reported - Past Family History Father Family Medical History: No Reported History Additional Family Medical History / Comment(s): Father had back problems. He lived to be 82 yrs old. Mother History Unknown: Yes Family Medical History: Hypertension, Myocardial Infarction (CA) Additional Family Medical History / Comment(s): Mother of a CA at the age of 55yrs. Brother(s) Family Medical History: Cancer, COPD Additional Family Medical History / Comment(s): Leukemia General Exam Limitations: no limitations General appearance: alert, in no apparent distress Head exam: Present: atraumatic, normocephalic Eye exam: Present: normal appearance, PERRL ENT exam: Present: normal exam Neck exam: Present: normal inspection. Absent: tenderness, meningismus Respiratory exam: Present: normal lung sounds bilaterally. Absent: respiratory distress, wheezes Cardiovascular Exam: Present: normal rhythm, tachycardia GI/Abdominal exam: Present: soft, tenderness (Mild epigastric tenderness). Absent: distended, guarding, rebound Extremities exam: Present: pedal edema Neurological exam: Present: alert Psychiatric exam: Present: normal affect, normal mood Skin exam: Present: warm, dry, intact. Absent: cyanosis, diaphoretic Course Vital Signs 10/20/20 15:14 Temperature 98.8 F Pulse Rate 109 H Respiratory 18 Rate Blood Pressure 197/98 O2 Sat by Pulse 99 Oximetry EKG Findings - EKG Comments: EKG Findings:: EKG: Sinus rhythm possible left atrial enlargement, left ventricular hypertrophy, no ST segment elevation rate of 83, FL interval 146, QRS duration 90, QTC 452 Medical Decision Making - Medical Decision Making 64-year-old male presenting for evaluation of chest pain. History of CAD. Recent admission at outside hospital where according to the patient there was pl an for heart cath. 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 Go. He began having chest pain this afternoon. This is substernal, radiating to the left jaw. EKG appears similar compared to prior, sinus rhythm without ST segment elevation. Patient has a normal CBC, normal CMP, negative initial troponin. He will be kept in observation for serial troponin, telemetry, cardiology consultation. Case discussed with the admitting physician Dr. Morgan. - Lab Data Result diagrams: 10/20/20 15:51 10/20/20 15:51 Lab Results 10/20/20 10/20/20 10/20/20 Range/Units 15:51 15:51 15:51 WBC 4.6 (3.8-10.6) k/uL RBC 4.76 (4.30-5.90) m/uL Hgb 13.7 (13.0-17.5) gm/dL Hct 42.8 (39.0-53.0) % MCV 90.0 (80.0-100.0) fL MCH 28.8 (25.0-35.0) pg MCHC 32.0 (31.0-37.0) g/dL RDW 14.8 (11.5-15.5) % Plt Count 312 (150-450) k/uL MPV 6.5 Neutrophils % 80 % Lymphocytes % 13 % Monocytes % 5 % Eosinophils % 0 % Basophils % 1 % Neutrophils # 3.7 (1.3-7.7) k/uL Lymphocytes # 0.6 L (1.0-4.8) k/uL Monocytes # 0.2 (0-1.0) k/uL Eosinophils # 0.0 (0-0.7) k/uL Basophils # 0.0 (0-0.2) k/uL PT 10.9 (9.0-12.0) sec INR 1.1 (<1.2) APTT 24.2 (22.0-30.0) sec Sodium 140 (137-145) mmol/L Potassium 3.7 (3.5-5.1) mmol/L Chloride 107 (98-107) mmol/L Carbon Dioxide 25 (22-30) mmol/L Anion Gap 8 mmol/L BUN 11 (9-20) mg/dL Creatinine 0.69 (0.66-1.25) mg/dL Est GFR (CKD-EPI)AfAm >90 (>60 ml/min/1.73 sqM) Est GFR (CKD-EPI)NonAf >90 (>60 ml/min/1.73 sqM) Glucose 132 H (74-99) mg/dL Calcium 9.8 (8.4-10.2) mg/dL Magnesium 1.8 (1.6-2.3) mg/dL Total Bilirubin 0.8 (0.2-1.3) mg/dL AST 18 (17-59) U/L ALT 10 (4-49) U/L Alkaline Phosphatase 66 (38-126) U/L Troponin I (0.000-0.034) ng/mL Total Protein 7.9 (6.3-8.2) g/dL Albumin 4.7 (3.5-5.0) g/dL Lipase 130 (23-300) U/L 10/20/20 Range/Units 15:51 WBC (3.8-10.6) k/uL RBC (4.30-5.90) m/uL Hgb (13.0-17.5) gm/dL Hct (39.0-53.0) % MCV (80.0-100.0) fL MCH (25.0-35.0) pg MCHC (31.0-37.0) g/dL RDW (11.5-15.5) % Plt Count (150-450) k/uL MPV Neutrophils % % Lymphocytes % % Monocytes % % Eosinophils % % Basophils % % Neutrophils # (1.3-7.7) k/uL Lymphocytes # (1.0-4.8) k/uL Monocytes # (0-1.0) k/uL Eosinophils # (0-0.7) k/uL Basophils # (0-0.2) k/uL PT (9.0-12.0) sec INR (<1.2) APTT (22.0-30.0) sec Sodium (137-145) mmol/L Potassium (3.5-5.1) mmol/L Chloride (98-107) mmol/L Carbon Dioxide (22-30) mmol/L Anion Gap mmol/L BUN (9-20) mg/dL Creatinine (0.66-1.25) mg/dL Est GFR (CKD-EPI)AfAm (>60 ml/min/1.73 sqM) Est GFR (CKD-EPI)NonAf (>60 ml/min/1.73 sqM) Glucose (74-99) mg/dL Calcium (8.4-10.2) mg/dL Magnesium (1.6-2.3) mg/dL Total Bilirubin (0.2-1.3) mg/dL AST (17-59) U/L ALT (4-49) U/L Alkaline Phosphatase (38-126) U/L Troponin I <0.012 (0.000-0.034) ng/mL Total Protein (6.3-8.2) g/dL Albumin (3.5-5.0) g/dL Lipase (23-300) U/L Disposition Clinical Impression: Chest pain Disposition: ADMITTED IP TO THIS [facility] Condition: Stable Is patient prescribed a controlled substance at d/c from ED?: No Referrals: None,Stated [Primary Care Provider] - 1-2 days Decision to Admit Reason: Admit from EC Decision Date: 10/20/20 Decision Time: 16:54
[2020-10-20] MEDS ORDERED: ONDANSETRON 4 MG/2 ML VIAL IVP STA (15:49)
[2020-10-20 15:57] LABS: Basophils % (A) 1 %; Eosinophils % (A) 0 %; HCT 42.8 % (39.0-53.0); HGB 13.7 gm/dL (13.0-17.5); Lymphocytes # (A) 0.6 k/uL (1.0-4.8); Lymphocytes % (A) 13 %; MCH 28.8 pg (25.0-35.0); Mean Platelet Volume 6.5; Monocytes # (A) 0.2 k/uL (0-1.0); Monocytes % (A) 5 %; Neutrophils # (A) 3.7 k/uL (1.3-7.7); Neutrophils % (A) 80 %; Platelet Count 312 k/uL (150-450); RBC 4.76 m/uL (4.30-5.90); RDW 14.8 % (11.5-15.5); WBC 4.6 k/uL (3.8-10.6)
[2020-10-20 16:07] LABS: INR 1.1 (<1.2); Partial Thromboplastin Time 24.2 sec (22.0-30.0); Prothrombin Time 10.9 sec (9.0-12.0)
--- NOTE | 2020-10-20 16:07 | XR ---
EXAMINATION TYPE: XR chest 2V DATE OF EXAM: 10/20/2020 COMPARISON: 09/22/2020 HISTORY: Chest pain TECHNIQUE: FINDINGS: There is no heart failure nor confluent pneumonic infiltrate. Heart size is normal. Costoph renic angles are fairly clear. There are chest leads. Bony thorax is intact. IMPRESSION: No active cardiopulmonary disease. No change.
[2020-10-20 16:12] LABS: Potassium 3.7 mmol/L (3.5-5.1)
[2020-10-20 16:13] LABS: ALT 10 U/L (4-49); AST 18 U/L (17-59); African American GFR (CKD) >90 (>60 ml/min/1.73 sqM); Albumin 4.7 g/dL (3.5-5.0); Alkaline Phosphatase 66 U/L (38-126); Anion Gap 8 mmol/L; Blood Urea Nitrogen 11 mg/dL (9-20); Calcium 9.8 mg/dL (8.4-10.2); Carbon Dioxide 25 mmol/L (22-30); Chloride 107 mmol/L (98-107); Glucose 132 mg/dL (74-99); Lipase 130 U/L (23-300); Magnesium 1.8 mg/dL (1.6-2.3); Non-African American GFR(CKD) >90 (>60 ml/min/1.73 sqM); Sodium 140 mmol/L (137-145); Total Bilirubin 0.8 mg/dL (0.2-1.3); Total Protein 7.9 g/dL (6.3-8.2)
[2020-10-20] MEDS ORDERED: MORPHINE SULFATE 4 MG/ML SYRINGE IVP STA ×2 (16:51)
[2020-10-20] MEDS ORDERED: MORPHINE SULFATE 4 MG/ML SYRINGE IVP PRN (16:51)
[2020-10-20] MEDS ORDERED: NALOXONE 0.4 MG/ML 1 ML VIAL IV PRN (16:58)
[2020-10-20] MEDS ORDERED: NITROGLYCERIN SL TABS 0.4 MG TAB SUBLINGUAL PRN (16:59)
--- NOTE | 2020-10-20 17:20 | P.HPIM ---
History of Present Illness H&P Date: 10/20/20 Chief Complaint: chest pain This is a 64 years old male who reported to the hospital because of chest pain. Patient states that he has been having intermittent chest pain and was admitted at [facility] but he signed AGAINST MEDICAL ADVICE on . He states that they recommended cardiac catheterization at that time. He continued to have intermittent substernal chest pain, which fluctuates in severity, he describes it as sharp radiating to his left arm and jaw. At the most it was 7/10 in severity. He also reports intermittent shortness of breath, dry cough, subjective fever with chills and diaphoresis. He also reports intermittent watery diarrhea. He denies nausea or vomiting, no hematuria dysuria hematemesis or hematochezia. At the time of examination, patient does not appear to be in distress. Review of Systems 10 systems reviewed, pertinent positive and negative findings as in HPI, chest pain, shortness of breath, no vomiting. Past Medical History Past Medical History: Coronary Artery Disease (CAD), Chest Pain / Angina, COPD, Deep Vein Thrombosis (DVT), GERD/Reflux, Hyperlipidemia, Hypertension, Osteoarthritis (OA), Thyroid Disorder Additional Past Medical History / Comment(s): Occasional palpitations, gastritis, small hiatal hernia, diverticular dx, pt states years ago he had PUD, chronic low back pain, chronic pain syndrome, migraines, DVT L arm, numbness/tingling bilateral lower legs, bilateral past R hand fracture, arthritis multiple joints, hyperthyroid, sinus problems. History of Any Multi-Drug Resistant Organisms: None Reported Past Surgical History: Back Surgery, Cholecystectomy, Heart Catheterization With Stent, Orthopedic Surgery Additional Past Surgical History / Comment(s): EGDs/colonoscopies, multiple low back surgeries, bilateral arm and bilateral thigh surgeries for brown recluse spider bites with infection, morphine pain pump insertion and removal due to infection, PCI with stents, L rotator cuff repair, L knee arthroscopy, cervical fusion/cage, R cataract removal. Past Anesthesia/Blood Transfusion Reactions: No Reported Reaction Additional Past Anesthesia/Blood Transfusion Reaction / Comment(s): Pt states after cervical fusion he "" in the recovery room but does not know cause- he was"gone for 8 minutes" and states he was resusitated. Pt received blood after back surgery and tolerated it well. Date of Last Stent Placement:: 10/12/17 Past Psychological History: No Psychological Hx Reported Smoking Status: Never smoker Past Alcohol Use History: None Reported Past Drug Use History: None Reported - Past Family History Father Family Medical History: No Reported History Additional Family Medical History / Comment(s): Father had back problems. He lived to be 82 yrs old. Mother History Unknown: Yes Family Medical History: Hypertension, Myocardial Infarction ([place]) Additional Family Medical History / Comment(s): Mother of a [place] at the age of 55yrs. Brother(s) Family Medical History: Cancer, COPD Additional Family Medical History / Comment(s): Leukemia Medications and Allergies Home Medications Medication Instructions Recorded Confirmed Type Fluticasone Nasal [place] [Flonase 1 spray EA NOSTRIL BID PRN 04/20/17 09/22/20 History Nasal [place]] Morphine Sulfate ER [Ms Contin] 30 mg PO Q8H 10/10/17 09/22/20 History Atorvastatin [Lipitor] 80 mg PO HS #30 tab 10/12/17 09/22/20 Rx tiZANidine [Zanaflex] 4 mg PO TID PRN 02/26/18 09/22/20 History cloNIDine HCL [Catapres] 0.1 mg PO BID #60 tab 02/08/19 09/22/20 Rx Ezetimibe [Zetia] 10 mg PO DAILY #30 tab 05/24/19 09/22/20 Rx amLODIPine [Norvasc] 5 mg PO BID #60 tab 05/24/19 09/22/20 Rx Nitroglycerin Sl Tabs [Nitrostat] 0.4 mg SUBLINGUAL Q5M PRN #20 tab 07/02/19 09/22/20 Rx Aspirin EC [Ecotrin Low Dose] 81 mg PO DAILY 01/02/20 09/22/20 History carvediloL [Coreg*] 12.5 mg PO AC-BID 01/02/20 09/22/20 History oxyCODONE-APAP 10-325MG [Percocet 1 tab PO Q8H PRN 01/02/20 09/22/20 History 10-325 mg] Prasugrel [Effient] 10 mg PO DAILY 08/06/20 09/22/20 History lisinopriL 40 mg PO DAILY 08/06/20 09/22/20 History Pantoprazole Sodium [Protonix] 40 mg PO DAILY #30 tab 08/12/20 09/22/20 Rx Sucralfate [Carafate] 1 gm PO AC-TID #90 tab 08/12/20 09/22/20 Rx polyethylene glycoL 3350 [Miralax] 17 gm PO DAILY powd.pack 08/12/20 09/22/20 Rx Dicyclomine [Bentyl] 10 mg PO QID PRN #90 cap 09/23/20 Rx Promethazine [Phenergan] 25 mg PO Q6HR PRN tab 09/23/20 Rx Allergies Allergy/AdvReac Type Severity Reaction Status Date / Time ibuprofen [From Motrin] Allergy Rash/Hives Verified 10/20/20 15:14 ketorolac tromethamine Allergy Rash/Hives Verified 10/20/20 15:14 [From Toradol] Physical Exam Vitals: Vital Signs Temp Pulse Resp BP Pulse Ox 10/20/20 15:14 98.8 F 109 H 18 197/98 99 Intake and Output 10/20/20 10/20/20 10/20/20 06:59 14:59 22:59 Other: Weight 79.379 kg Constitutional: No acute distress, conversant, pleasant Eyes: Anicteric sclerae, moist conjunctiva, no lid-lag, PERRLA ENMT: NC/AT Neck:Supple, FROM, no masses, or JVD, No carotid bruits; No thyromegaly Lungs: Clear to auscultation, Clear to percussion, Normal respiratory effort, no accessory muscle use Cardiovascular: Heart regular in rate and rhythm, No murmurs, gallops, or rubs no peripheral edema Abdominal: Soft Nontender, nom distended, no guarding, no rebound or rigidity, Normoactive bowel sounds No hepatomegaly, No splenomegaly, No palpable mass No abdominal wall hernia noted Skin: Normal temperature, tone, texture, turgor, No induration No subcutaneous nodules, No rash, lesions, No ulcers Extremities: No clubbing, cyanosis or edema Psychiatric: Alert and oriented to person, place and time, Appropriate affect Intact judgement Neuro: Muscles Strength 5/5 in all 4 extremities, Sensation to light touch grossly present throughout, Cranial nerves II-XII grossly intact. No focal sensory deficits Results CBC & Chem 7: 10/20/20 15:51 10/20/20 15:51 Labs: Abnormal Lab Results - Last 24 Hours (Table) 10/20/20 10/20/20 Range/Units 15:51 15:51 Lymphocytes # 0.6 L (1.0-4.8) k/uL Glucose 132 H (74-99) mg/dL Assessment and Plan Plan: 1. Intermittent chest pain unspecified etiology: Place on telemetry, continue to check cardiac enzymes, check d-dimer, cardiology consultation. 2. COPD without exacerbation: Oxygen and bronchodilators as indicated 3. History of DVT: Not on anticoagulation 4. Essential hypertension: Continue clonidine, Norvasc, lisinopril and Coreg. 5. Coronary artery disease: Continue outpatient medications. Continue to check cardiac enzymes 6. GERD without esophagitis: Continue PPI and Carafate 7. Hyperlipidemia: Continue Zetia Observation DVT prophylaxis: SCDs Disposition: Pending clinical progression, likely home in 1-2 days
[2020-10-20] MEDS ORDERED: FLUTICASONE 50MCG/SPRAY NASAL 16GM EA NOSTRIL PRN (17:21)
[2020-10-20] MEDS ORDERED: tiZANidine 4 MG TAB PO PRN (17:21)
[2020-10-20] MEDS ORDERED: DICYCLOMINE 10 MG CAP PO PRN (17:21)
[2020-10-20 17:48] LABS: Basophils % (A) 0 %; Eosinophils # (A) 0.1 k/uL (0-0.7); Eosinophils % (A) 1 %; HGB 13.5 gm/dL (13.0-17.5); Lymphocytes # (A) 0.8 k/uL (1.0-4.8); Lymphocytes % (A) 16 %; MCH 29.5 pg (25.0-35.0); MCHC 32.8 g/dL (31.0-37.0); MCV 89.9 fL (80.0-100.0); Mean Platelet Volume 6.3; Monocytes # (A) 0.3 k/uL (0-1.0); Monocytes % (A) 5 %; Neutrophils # (A) 3.8 k/uL (1.3-7.7); Neutrophils % (A) 76 %; Platelet Count 306 k/uL (150-450); RBC 4.57 m/uL (4.30-5.90); RDW 14.8 % (11.5-15.5)
[2020-10-20 17:58] LABS: ALT 8 U/L (4-49); AST 17 U/L (17-59); African American GFR (CKD) >90 (>60 ml/min/1.73 sqM); Albumin 4.5 g/dL (3.5-5.0); Alkaline Phosphatase 67 U/L (38-126); Anion Gap 10 mmol/L; Blood Urea Nitrogen 11 mg/dL (9-20); Calcium 9.7 mg/dL (8.4-10.2); Carbon Dioxide 24 mmol/L (22-30); Chloride 105 mmol/L (98-107); Glucose 111 mg/dL (74-99); Non-African American GFR(CKD) >90 (>60 ml/min/1.73 sqM); Sodium 139 mmol/L (137-145); Total Bilirubin 0.8 mg/dL (0.2-1.3); Total Protein 7.7 g/dL (6.3-8.2)
[2020-10-20] MEDS: ONDANSETRON 4 MG/2 ML VIAL IVP PRN (20:53)
[2020-10-20] MEDS: SUCRALFATE 1 GM TAB PO SCH (21:10)
[2020-10-20] MEDS: cloNIDine HCL 0.1 MG TAB PO SCH (21:10)
[2020-10-20] MEDS: amLODIPine 5 MG TAB PO SCH (21:10)
[2020-10-20] MEDS: carvediloL 12.5 MG TAB PO SCH (21:10)
[2020-10-20] MEDS: ATORVASTATIN 80 MG TAB PO SCH (21:10)
[2020-10-20] MEDS: HYDROmorphone 0.5 MG/0.5 ML SYRINGE IVP PRN (21:10)
[2020-10-20] MEDS ORDERED: cloNIDine HCL 0.1 MG TAB PO ONE (22:15)
[2020-10-21] MEDS ORDERED: NITROGLYCERIN-D5W PMX 50 MG in DEXTROSE/WATER 1 250ML.BAG IV SCH (00:15)
[2020-10-21] MEDS: LABETALOL 5 MG/ML VIAL MDV IVP SCH ×12 (00:37→15:05)
[2020-10-21] MEDS: HYDROmorphone 0.5 MG/0.5 ML SYRINGE IVP PRN ×6 (01:52→22:13)
[2020-10-21] MEDS: ONDANSETRON 4 MG/2 ML VIAL IVP PRN ×3 (05:57→22:15)
[2020-10-21] MEDS: carvediloL 12.5 MG TAB PO SCH ×2 (06:24→17:27)
[2020-10-21] MEDS: SUCRALFATE 1 GM TAB PO SCH ×3 (06:24→17:27)
[2020-10-21] MEDS: PANTOPRAZOLE 40 MG TABLET PO SCH (06:24)
[2020-10-21] MEDS: amLODIPine 5 MG TAB PO SCH ×2 (06:45→21:06)
[2020-10-21] MEDS: lisinopriL 20 MG TAB PO SCH (06:45)
[2020-10-21] MEDS: cloNIDine HCL 0.1 MG TAB PO SCH (06:45)
[2020-10-21] MEDS: ASPIRIN 81 MG PO SCH (09:12)
[2020-10-21] MEDS: PRASUGREL 10 MG TAB PO SCH (09:12)
[2020-10-21] MEDS: ISOSORBIDE MONONITRATE ER 30 MG TAB.ER.24H PO SCH (09:12)
[2020-10-21] MEDS: EZETIMIBE 10 MG TAB PO SCH (09:13)
--- NOTE | 2020-10-21 12:36 | P.PN ---
Subjective Progress Note Date: 10/21/20 Principal diagnosis: CC: chest pain Patient is complaining of left-sided chest pain. His troponins are negative 3. His d-dimer is also within normal limits. I discussed with cardiology who said that they will order a stress test for him. Patient is very well known to both our medical and cardiology service Objective - Vital Signs Vital signs: Vital Signs Temp 98.1 F 10/21/20 11:20 Pulse 92 10/21/20 11:20 Resp 18 10/21/20 11:20 BP 126/93 10/21/20 11:20 Pulse Ox 96 10/21/20 11:20 Intake & Output 10/20/20 10/21/20 10/21/20 18:59 06:59 18:59 Weight 79.379 kg 79.379 kg Other: # Voids 0 1 - Exam General examination - Alert and Oriented 3 in NAD Heart - + S1S2 no murmurs Lungs - Clear to auscultation Abdomen soft NT ND +ve BS Extremities - No edema ENGRAVER PANTOGRAPH - Moving all 4 extremities spontaneously Psych - Calm and cooperative - Labs CBC & Chem 7: 10/20/20 17:37 10/20/20 17:37 Labs: Abnormal Lab Results - Last 24 Hours (Table) 10/20/20 10/20/20 10/20/20 Range/Units 15:51 15:51 17:37 Lymphocytes # 0.6 L (1.0-4.8) k/uL Creatinine 0.61 L (0.66-1.25) mg/dL Glucose 132 H 111 H (74-99) mg/dL 10/20/20 Range/Units 17:37 Lymphocytes # 0.8 L (1.0-4.8) k/uL Creatinine (0.66-1.25) mg/dL Glucose (74-99) mg/dL Assessment and Plan Assessment: 1. Intermittent chest pain unspecified etiology: Troponin negative 3, d-dimer negative, I discussed with cardiology who said they will order a stress test. 2. COPD without exacerbation: Oxygen and bronchodilators as indicated 3. History of DVT: Not on anticoagulation 4. Essential hypertension: Continue clonidine, Norvasc, lisinopril and Coreg. 5. Coronary artery disease: Continue outpatient medications. 6. GERD without esophagitis: Continue PPI and Carafate 7. Hyperlipidemia: Continue Zetia Observation DVT prophylaxis: SCDs Disposition: Discharge tomorrow if cleared by cardiology
--- NOTE | 2020-10-21 13:14 | P.CRDCN ---
History of Present Illness Consult date: 10/21/20 History of present illness: CHIEF COMPLAINT: Chest pain HISTORY OF PRESENT ILLNESS: This is a 64 -year old male with a past medical history significant for coronary artery disease, COPD, hypertension, and hyperlipidemia. Patient follows in the office with Dr. Go. We have been asked to see the patient in consultation for chest pain. Patient examined this point the bedside. He states he went to [facility] on for chest pain but left AMA. He reports he began having chest pain again yesterday. The macario ent continues to report intermittent chest pain. He states the pain goes into his jaw and down his left arm. He reports mild shortness of breath. The patient has a history of PCI to the LAD and diagonal branch in 2016. He underwent a cardiac catheterization in 2018 which did not show any progression of his coronary artery disease. The patient also had a dobutamine stress test performed in April 2020 which was negative for reversible ischemia. Echocardiogram completed in April revealed EF 55-60% DIAGNOSTICS: EKG reveals sinus rhythm Chest xray no active cardio pulmonary disease Laboratory data: WBC 5.0. Hemoglobin 13.5. Platelet count 306. Sodium 139. Potassium 4.0. BUN 11. Creatinine 0.61. Troponin negative 3. Current home cardiac medications include lisinopril 40 mg daily, Catapres 0.1 mg twice a day, Coreg 12.5 mg twice a day, Norvasc 5 mg twice a day, Effient 10 mg daily, Lipitor 80 mg daily, and aspirin 81 mg daily REVIEW OF SYSTEMS: At the time of my exam: CONSTITUTIONAL: Denies fever or chills. HEENT: Denies blurred vision, vision changes, or eye pain. Denies hemoptysis CARDIOVASCULAR: Reports mild chest discomfort. Denies orthopnea, PND or palpitations RESPIRATORY: No shortness of breath. GASTROINTESTINAL: Denies abdominal pain. Denies nausea or vomiting. HEMATOLOGIC: Denies bleeding disorders. GENITOURINARY: Denies any blood in urine. SKIN: Denies pruitis. Denies rash. PHYSICAL EXAM: VITAL SIGNS: Reviewed. GENERAL: Well-developed in no acute distress. HEENT: Head is normocephalic. Pupils are equal, round. Sclerae anicteric. Mucous membranes of the mouth are moist. Neck supple. No JVD or thyromegaly LUNGS: Respirations even and unlabored. Lungs essentially clear to auscultation bilaterally. HEART: Regular rate and rhythm. S1 and S2 heard. ABDOMEN: Soft. Nondistended. Nontender. EXTREMITIES: Normal range of motion. No clubbing or cyanosis. Peripheral pulses intact. No lower extremity edema NEUROLOGIC: Awake and alert. Oriented x 3. ASSESSMENT: Chest pain Coronary artery disease with previous PCI to LAD and diagonal Hypertension Hyperlipidemia COPD PLAN: An acute coronary event has been ruled out Add Imdur 30 mg daily Increase Catapres to 0.2 mg twice a day Obtain 2-D echo to assess cardiac structure and function Patient to undergo dobutamine stress test tomorrow Nurse practitioner note has been reviewed by physician. Signing provider agrees with the documented findings, assessment, and plan of care. Past Medical History Past Medical History: Coronary Artery Disease (CAD), Chest Pain / Angina, COPD, Deep Vein Thrombosis (DVT), GERD/Reflux, Hyperlipidemia, Hypertension, Osteoarthritis (OA), Thyroid Disorder Additional Past Medical History / Comment(s): Occasional palpitations, gastritis, small hiatal hernia, diverticular dx, pt states years ago he had PUD, chronic low back pain, chronic pain syndrome, migraines, DVT L arm, numbness/tingling bilateral lower legs, bilateral past R hand fracture, arthritis multiple joints, hyperthyroid, sinus problems. History of Any Multi-Drug Resistant Organisms: None Reported Past Surgical History: Back Surgery, Cholecystectomy, Heart Catheterization With Stent, Orthopedic Surgery Additional Past Surgical History / Comment(s): EGDs/colonoscopies, multiple low back surgeries, bilateral arm and bilateral thigh surgeries for brown recluse spider bites with infection, morphine pain pump insertion and removal due to infection, PCI with stents, L rotator cuff repair, L knee arthroscopy, cervical fusion/cage, R cataract removal. Past Anesthesia/Blood Transfusion Reactions: No Reported Reaction Additional Past Anesthesia/Blood Transfusion Reaction / Comment(s): Pt states after cervical fusion he "" in the recovery room but does not know cause- he was"gone for 8 minutes" and states he was resusitated. Pt received blood after back surgery and tolerated it well. Date of Last Stent Placement:: 10/12/17 Past Psychological History: No Psychological Hx Reported Additional Psychological History / Comment(s): Pt resides with his spouse. He uses a walker and cane to ambulate. He does not drive, neither does his spouse, they us the bus. Smoking Status: Never smoker Past Alcohol Use History: None Reported Additional Past Alcohol Use History / Comment(s): Pt started smoking in 1973 and quit in 1984 Past Drug Use History: None Reported - Past Family History Father Family Medical History: No Reported History Additional Family Medical History / Comment(s): Father had back problems. He lived to be 82 yrs old. Mother History Unknown: Yes Family Medical History: Hypertension, Myocardial Infarction ([place]) Additional Family Medical History / Comment(s): Mother of a [place] at the age of 55yrs. Brother(s) Family Medical History: Cancer, COPD Additional Family Medical History / Comment(s): Leukemia Medications and Allergies Home Medications Medication Instructions Recorded Confirmed Type Fluticasone Nasal [place] [Flonase 1 spray EA NOSTRIL BID 04/20/17 10/20/20 History Nasal [place]] Morphine Sulfate ER [Ms Contin] 30 mg PO Q8H 10/10/17 10/20/20 History Atorvastatin [Lipitor] 80 mg PO HS #30 tab 10/12/17 10/20/20 Rx tiZANidine [Zanaflex] 4 mg PO TID PRN 02/26/18 10/20/20 History cloNIDine HCL [Catapres] 0.1 mg PO BID #60 tab 02/08/19 10/20/20 Rx Ezetimibe [Zetia] 10 mg PO DAILY #30 tab 05/24/19 10/20/20 Rx amLODIPine [Norvasc] 5 mg PO BID #60 tab 05/24/19 10/20/20 Rx Nitroglycerin Sl Tabs [Nitrostat] 0.4 mg SUBLINGUAL Q5M PRN #20 tab 07/02/19 10/20/20 Rx Aspirin EC [Ecotrin Low Dose] 81 mg PO DAILY 01/02/20 10/20/20 History carvediloL [Coreg*] 12.5 mg PO AC-BID 01/02/20 10/20/20 History oxyCODONE-APAP 10-325MG [Percocet 1 tab PO Q8H PRN 01/02/20 10/20/20 History 10-325 mg] Prasugrel [Effient] 10 mg PO DAILY 08/06/20 10/20/20 History lisinopriL 40 mg PO DAILY 08/06/20 10/20/20 History Pantoprazole Sodium [Protonix] 40 mg PO DAILY #30 tab 08/12/20 10/20/20 Rx Sucralfate [Carafate] 1 gm PO AC-TID #90 tab 08/12/20 10/20/20 Rx Dicyclomine [Bentyl] 10 mg PO QID 10/20/20 10/20/20 History polyethylene glycoL 3350 [Miralax] 17 gm PO DAILY PRN 10/20/20 10/20/20 History Allergies Allergy/AdvReac Type Severity Reaction Status Date / Time ibuprofen [From Motrin] Allergy Rash/Hives Verified 10/20/20 17:56 ketorolac tromethamine Allergy Rash/Hives Verified 10/20/20 17:56 [From Toradol] Physical Exam Vitals: Vital Signs Temp Pulse Pulse Resp BP BP Pulse Ox 10/21/20 11:20 98.1 F 92 18 126/93 96 10/21/20 09:00 97.2 F L 90 18 194/100 96 10/21/20 06:28 97.1 F L 89 17 175/115 99 10/21/20 05:56 78 16 169/105 96 10/21/20 02:29 78 18 155/105 98 10/21/20 02:07 188/114 98 10/21/20 01:48 159/140 10/21/20 01:41 144/102 10/21/20 01:35 169/105 10/21/20 01:24 157/106 10/21/20 01:06 187/112 10/21/20 00:57 171/113 10/21/20 00:43 168/110 10/21/20 00:30 191/112 10/21/20 00:00 178/127 10/20/20 23:00 174/120 10/20/20 15:14 98.8 F 109 H 18 197/98 99 Intake and Output 10/20/20 10/21/20 10/21/20 22:59 06:59 14:59 Other: # Voids 0 1 Weight 79.379 kg Results 10/20/20 17:37 10/20/20 17:37 Cardiac Enzymes 10/20/20 10/20/20 10/20/20 Range/Units 15:51 15:51 17:37 AST 18 (17-59) U/L Troponin I <0.012 <0.012 (0.000-0.034) ng/mL 10/20/20 10/20/20 Range/Units 17:37 21:42 AST 17 (17-59) U/L Troponin I <0.012 (0.000-0.034) ng/mL Coagulation 10/20/20 Range/Units 15:51 PT 10.9 (9.0-12.0) sec APTT 24.2 (22.0-30.0) sec CBC 10/20/20 10/20/20 Range/Units 15:51 17:37 WBC 4.6 5.0 (3.8-10.6) k/uL RBC 4.76 4.57 (4.30-5.90) m/uL Hgb 13.7 13.5 (13.0-17.5) gm/dL Hct 42.8 41.0 (39.0-53.0) % Plt Count 312 306 (150-450) k/uL Comprehensive Metabolic Panel 10/20/20 10/20/20 Range/Units 15:51 17:37 Sodium 140 139 (137-145) mmol/L Potassium 3.7 4.0 (3.5-5.1) mmol/L Chloride 107 105 (98-107) mmol/L Carbon Dioxide 25 24 (22-30) mmol/L BUN 11 11 (9-20) mg/dL Creatinine 0.69 0.61 L (0.66-1.25) mg/dL Glucose 132 H 111 H (74-99) mg/dL Calcium 9.8 9.7 (8.4-10.2) mg/dL AST 18 17 (17-59) U/L ALT 10 8 (4-49) U/L Alkaline Phosphatase 66 67 (38-126) U/L Total Protein 7.9 7.7 (6.3-8.2) g/dL Albumin 4.7 4.5 (3.5-5.0) g/dL Current Medications Generic Name Dose Route Start Last Admin Trade Name Freq PRN Reason Stop Dose Admin Amlodipine Besylate 5 mg 10/20/20 21:00 10/21/20 06:45 Amlodipine 5 Mg Tab PO 5 mg BID YESICA Administration Aspirin 81 mg 10/21/20 09:00 10/21/20 09:12 Aspirin 81 Mg PO 81 mg DAILY YESICA Administration Atorvastatin Calcium 80 mg 10/20/20 21:00 10/20/20 21:10 Atorvastatin 80 Mg Tab PO 80 mg HS YESICA Administration Carvedilol 12.5 mg 10/20/20 19:00 10/21/20 06:24 Carvedilol 12.5 Mg Tab PO 12.5 mg AC-BID YESICA Administration Clonidine 0.2 mg 10/21/20 21:00 Clonidine Hcl 0.2 Mg Tab PO BID YESICA Dicyclomine HCl 10 mg 10/20/20 17:21 Dicyclomine 10 Mg Cap PO QID PRN IBS Ezetimibe 10 mg 10/21/20 09:00 10/21/20 09:13 Ezetimibe 10 Mg Tab PO 10 mg DAILY YESICA Administration Fluticasone Propionate 1 spray 10/20/20 17:21 Fluticasone 50mcg/[place] Nasal 16gm EA NOSTRIL BID PRN Allergy Symptoms Hydromorphone HCl 0.5 mg 10/20/20 17:21 10/21/20 09:52 Hydromorphone 0.5 Mg/0.5 Ml Syringe IVP 0.5 mg Q4HR PRN Administration Pain Dobutamine HCl/Dextrose 500 mg 250 mls @ 23.814 mls/hr 10/21/20 13:07 / IV Solution IV 10/21/20 23:36 .[id number] ONE Protocol 10 MCG/KG/MIN Isosorbide Mononitrate 30 mg 10/21/20 09:00 10/21/20 09:12 Isosorbide Mononitrate Er 30 Mg Tab.Er.24h PO 30 mg DAILY YESICA Administration Lisinopril 40 mg 10/21/20 09:00 10/21/20 06:45 Lisinopril 20 Mg Tab PO 40 mg DAILY YESICA Administration Morphine Sulfate 4 mg 10/20/20 16:51 Morphine Sulfate 4 Mg/Ml Syringe IVP Q4HR PRN Pain Naloxone HCl 0.2 mg 10/20/20 16:58 Naloxone 0.4 Mg/Ml 1 Ml Vial IV Q2M PRN Opioid Reversal Nitroglycerin 0.4 mg 10/20/20 16:59 10/20/20 22:14 Nitroglycerin Sl Tabs 0.4 Mg Tab SUBLINGUAL 0.4 mg Q5M PRN Administration Chest Pain Ondansetron HCl 4 mg 10/20/20 16:58 10/21/20 05:57 Ondansetron 4 Mg/2 Ml Vial IVP 4 mg Q8HR PRN Administration Nausea And Vomiting Pantoprazole Sodium 40 mg 10/21/20 07:30 10/21/20 06:24 Pantoprazole 40 Mg Tablet PO 40 mg [id number] YESICA Administration Prasugrel 10 mg 10/21/20 09:00 10/21/20 09:12 Prasugrel 10 Mg Tab PO 10 mg DAILY YESICA Administration Sucralfate 1 gm 10/20/20 19:00 10/21/20 12:47 Sucralfate 1 Gm Tab PO 1 gm AC-TID YESICA Administration Tizanidine HCl 4 mg 10/20/20 17:21 Tizanidine 4 Mg Tab PO TID PRN Muscle Spasm Intake and Output 10/20/20 10/21/20 10/21/20 22:59 06:59 14:59 Other: # Voids 0 1 Weight 79.379 kg 10/20/20 17:37 10/20/20 17:37
[2020-10-21] MEDS: cloNIDine HCL 0.2 MG TAB PO SCH (21:06)
[2020-10-21] MEDS: ATORVASTATIN 80 MG TAB PO SCH (21:06)
[2020-10-22] MEDS: HYDROmorphone 0.5 MG/0.5 ML SYRINGE IVP PRN ×4 (02:18→15:56)
[2020-10-22] MEDS ORDERED: hydrALAZINE HCL 20 MG/ML 1 ML VIAL IVP STA (03:46)
[2020-10-22 05:15] VITALS: TEMP 98.7
[2020-10-22 08:24] VITALS: RESP 16
[2020-10-22] MEDS ORDERED: DOBUTamine DRIP for NUC MED 500 MG in DEXTROSE/WATER 1 250ML.BAG IV ONE ×2 (09:00→11:00)
[2020-10-22 10:11] LABS: Basophils % (A) 0 %; Eosinophils # (A) 0.1 k/uL (0-0.7); Eosinophils % (A) 1 %; HCT 43.4 % (39.0-53.0); HGB 14.1 gm/dL (13.0-17.5); Lymphocytes # (A) 0.8 k/uL (1.0-4.8); Lymphocytes % (A) 14 %; MCH 29.2 pg (25.0-35.0); MCHC 32.5 g/dL (31.0-37.0); Mean Platelet Volume 6.4; Monocytes # (A) 0.3 k/uL (0-1.0); Monocytes % (A) 6 %; Neutrophils # (A) 4.2 k/uL (1.3-7.7); Neutrophils % (A) 77 %; Platelet Count 295 k/uL (150-450); RBC 4.83 m/uL (4.30-5.90); RDW 14.6 % (11.5-15.5); WBC 5.5 k/uL (3.8-10.6)
[2020-10-22 10:32] LABS: ALT 8 U/L (4-49); AST 18 U/L (17-59); African American GFR (CKD) >90 (>60 ml/min/1.73 sqM); Albumin 4.5 g/dL (3.5-5.0); Alkaline Phosphatase 58 U/L (38-126); Anion Gap 9 mmol/L; Blood Urea Nitrogen 10 mg/dL (9-20); Calcium 9.5 mg/dL (8.4-10.2); Carbon Dioxide 24 mmol/L (22-30); Chloride 104 mmol/L (98-107); Glucose 120 mg/dL (74-99); Non-African American GFR(CKD) >90 (>60 ml/min/1.73 sqM); Potassium 3.8 mmol/L (3.5-5.1); Sodium 137 mmol/L (137-145); Total Bilirubin 1.1 mg/dL (0.2-1.3); Total Protein 7.6 g/dL (6.3-8.2)
--- NOTE | 2020-10-22 10:54 | P.PN ---
Subjective Progress Note Date: 10/22/20 This is a pleasant 64-year-old gentleman with documented history of coronary artery disease, hypertension, hyperlipidemia, COPD, follows with Dr. Holden Go in the office. Presented to the hospital with symptoms of chest discomfort. He was seen in consultation by Dr. Felipe and recommended today to undergo dobutamine echocardiographic study. His blood pressure this morning was 178/90 with a heart rate in the 90s low 100s, 97% on room air. White blood cell count 5.5, hemoglobin 14.1, platelet count 295. Sodium 137, potassium 3.8, BUN 10, creatinine 0.6. Objective - Vital Signs Vital signs: Vital Signs Temp 98.7 F 10/22/20 04:00 Pulse 102 H 10/22/20 08:00 Resp 16 10/22/20 09:00 BP 179/99 10/22/20 08:00 Pulse Ox 97 10/22/20 08:00 Intake & Output 10/21/20 10/22/20 10/22/20 18:59 06:59 18:59 Intake Total 10 120 Balance 10 120 Weight 70.9 kg Intake: IV 10 0.9 10 Oral 120 Other: # Voids 2 2 - Exam PHYSICAL EXAMINATION: GENERAL: She 4-year-old gentleman in no acute distress at the time of my examination HEENT: Head is atraumatic, normocephalic. Pupils equal, round. Sclera anicteric. Conjunctiva are clear. Mucous membranes of the mouth are moist. Neck is supple. There is no elevated jugular venous pressure. No carotid bruit is heard. HEART EXAMINATION: Heart S1, S2 normal. No murmur or gallop heard. CHEST EXAMINATION: Lungs are clear to auscultation and precussion. No chest wall tenderness is noted on palpation or with deep breathing. ABDOMEN: Soft, nontender. Bowel sounds are heard. No organomegaly noted. EXTREMITIES: 2+ peripheral pulses with no evidence of peripheral edema and no calf tenderness noted. NEUROLOGIC [patient is awake, alert and oriented 3 . - Labs CBC & Chem 7: 10/22/20 09:43 10/22/20 09:43 Labs: Abnormal Lab Results - Last 24 Hours (Table) 10/22/20 10/22/20 Range/Units 09:43 09:43 Lymphocytes # 0.8 L (1.0-4.8) k/uL Creatinine 0.60 L (0.66-1.25) mg/dL Glucose 120 H (74-99) mg/dL Assessment and Plan Plan: Assessment and plan #1 chest pain, atypical in nature, opponents negative 3. EKG shows a normal sinus rhythm with nonspecific ST-T wave changes #2 coronary artery disease with prior LAD and diagonal stenting #3 hypertension #4 hyperlipidemia #5 COPD Plan Patient is scheduled today to undergo dobutamine echocardiographic study. We will increase the dose of Coreg to 25 mg one tablet by mouth twice a day. Further recommendations to follow. DNP note has been reviewed, I agree with a documented findings and plan of care. Patient was seen and examined.
--- NOTE | 2020-10-22 11:39 | P.PN ---
Subjective Progress Note Date: 10/22/20 Principal diagnosis: CC: chest pain Patient says that he still has left-sided chest pain. He states it is not associated with deep breathing or exertion. Patient is scheduled for a stress test today. 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 Intermittent chest pain unspecified etiology: Troponin negative 3, d-dimer negative, stress test pending. Cardiology added Imdur 2. COPD without exacerbation: Oxygen and bronchodilators as indicated 3. History of DVT: Not on anticoagulation 4. Essential hypertension: Continue clonidine, Norvasc, lisinopril and Coreg. 5. Coronary artery disease: Continue outpatient medications. 6. GERD without esophagitis: Continue PPI and Carafate 7. Hyperlipidemia: Continue Zetia Observation DVT prophylaxis: SCDs Disposition: Awaiting for stress test results
[2020-10-22] MEDS: ASPIRIN 81 MG PO SCH (11:51)
[2020-10-22] MEDS: EZETIMIBE 10 MG TAB PO SCH (11:52)
[2020-10-22] MEDS: PRASUGREL 10 MG TAB PO SCH (11:52)
[2020-10-22] MEDS: cloNIDine HCL 0.2 MG TAB PO SCH (11:52)
[2020-10-22] MEDS: SUCRALFATE 1 GM TAB PO SCH (11:52)
[2020-10-22] MEDS: PANTOPRAZOLE 40 MG TABLET PO SCH (11:52)
[2020-10-22] MEDS: lisinopriL 20 MG TAB PO SCH (11:52)
[2020-10-22] MEDS: ONDANSETRON 4 MG/2 ML VIAL IVP PRN (11:52)
[2020-10-22] MEDS: ISOSORBIDE MONONITRATE ER 30 MG TAB.ER.24H PO SCH (11:52)
[2020-10-22] MEDS: amLODIPine 5 MG TAB PO SCH (11:52)
--- NOTE | 2020-10-22 13:08 | ECHOS ---
STRESS ECHOCARDIOGRAM LUMASON: N/A Vial INDICATIONS: Chest pain MEDICATIONS: BASELINE HEART RATE: 92 BASELINE BLOOD PRESSURE: 137/90 MAXIMUM HEART RATE: 136 MAXIMUM BLOOD PRESSURE: 207/142 85% MPHR: 133 100% MPHR: 157 METS: N/A MAXIMUM STAGE REACHED: 3 TOTAL EXERCISE TIME: 7:00 CLINICAL INFORMATION: Baseline rhythm is sinus mechanism rate of 92, normal intervals, baseline blood pressure 137/90 mmHg. Patient received infusion of dobutamine per protocol, peak rate 136 beats per minute which is equal to 86% maximum predicted heart rate. Peak blood pressure 207/42 mmHg. Electrocardiograph monitoring revealed no evidence of diagnostic ischemic ST deviation. FINDINGS: Baseline echocardiogram revealed normal wall motion. At peak infusion, there was normal wall motion augmentation with no hypokinesis or dyskinesis. CONCLUSION: 1. Normal echocardiograph response to dobutamine infusion. 2. Normal stress echocardiogram with no evidence of stress-induced ischemia. MMODL / IJN: [id number] /
[2020-10-22 14:07] VITALS: BP 170/104; PULSE 118
--- NOTE | 2020-10-22 15:35 | P.DS ---
Providers Date of admission: 10/20/20 16:58 Expected date of discharge: 10/22/20 Attending physician: Ginny Morgan DO Consults: 10/20/20 16:58 Consult Physician Routine Consulting Provider: Fannie Go Consult Reason/Comments: CP Do you want consulting provider notified?: Yes Primary care physician: Stated None Hospital Course: Discharge Diagnosis 1. Intermittent chest pain unspecified etiology: 2. COPD without exacerbation: 3. History of DVT: 4. Essential hypertension: 5. Coronary artery disease: 6. GERD without esophagitis: 7. Hyperlipidemia: Hospital Course Patient is a 64 yo M who was attmitted for evaluation of atypical chest pain. His troponins were negative x3 and stress test was also negative. Patient was seen and cleared by cardiology for discharge. Cardiology started patient on Imdur and increased his clonidine to 0.2mg BID. Physical exam General examination - Alert and Oriented 3 in NAD Heart - + S1S2 no murmurs Lungs - diminished breath sounds bilaterally Abdomen soft NT ND +ve BS Extremities - No edema CHIEF OF PLANNING - Moving all 4 extremities spontaneously Psych - Calm and cooperative Patient Condition at Discharge: Stable Plan - Discharge Summary New Discharge Prescriptions: New Dicyclomine [Bentyl] 10 mg PO QID PRN cap PRN Reason: IBS cloNIDine HCL [Catapres] 0.2 mg PO BID #60 tab Isosorbide Mononitrate ER [Imdur] 30 mg PO DAILY #30 tab.er.24h Continue Fluticasone Nasal [place] [Flonase Nasal [place]] 1 spray EA NOSTRIL BID Morphine Sulfate ER [Ms Contin] 30 mg PO Q8H Atorvastatin [Lipitor] 80 mg PO HS #30 tab tiZANidine [Zanaflex] 4 mg PO TID PRN PRN Reason: Muscle Spasm cloNIDine HCL [Catapres] 0.1 mg PO BID #60 tab amLODIPine [Norvasc] 5 mg PO BID #60 tab Ezetimibe [Zetia] 10 mg PO DAILY #30 tab Nitroglycerin Sl Tabs [Nitrostat] 0.4 mg SUBLINGUAL Q5M PRN #20 tab PRN Reason: Chest Pain oxyCODONE-APAP 10-325MG [Percocet 10-325 mg] 1 tab PO Q8H PRN PRN Reason: Pain Aspirin EC [Ecotrin Low Dose] 81 mg PO DAILY carvediloL [Coreg*] 12.5 mg PO AC-BID lisinopriL 40 mg PO DAILY Prasugrel [Effient] 10 mg PO DAILY Sucralfate [Carafate] 1 gm PO AC-TID #90 tab Pantoprazole Sodium [Protonix] 40 mg PO DAILY #30 tab polyethylene glycoL 3350 [Miralax] 17 gm PO DAILY PRN PRN Reason: Constipation Discontinued Dicyclomine [Bentyl] 10 mg PO QID Discharge Medication List Fluticasone Nasal [place] [Flonase Nasal [place]] 1 spray EA NOSTRIL BID 04/20/17 [History] Morphine Sulfate ER [Ms Contin] 30 mg PO Q8H 10/10/17 [History] Atorvastatin [Lipitor] 80 mg PO HS #30 tab 10/12/17 [Rx] tiZANidine [Zanaflex] 4 mg PO TID PRN 02/26/18 [History] cloNIDine HCL [Catapres] 0.1 mg PO BID #60 tab 02/08/19 [Rx] Ezetimibe [Zetia] 10 mg PO DAILY #30 tab 05/24/19 [Rx] amLODIPine [Norvasc] 5 mg PO BID #60 tab 05/24/19 [Rx] Nitroglycerin Sl Tabs [Nitrostat] 0.4 mg SUBLINGUAL Q5M PRN #20 tab 07/02/19 [Rx] Aspirin EC [Ecotrin Low Dose] 81 mg PO DAILY 01/02/20 [History] carvediloL [Coreg*] 12.5 mg PO AC-BID 01/02/20 [History] oxyCODONE-APAP 10-325MG [Percocet 10-325 mg] 1 tab PO Q8H PRN 01/02/20 [History] Prasugrel [Effient] 10 mg PO DAILY 08/06/20 [History] lisinopriL 40 mg PO DAILY 08/06/20 [History] Pantoprazole Sodium [Protonix] 40 mg PO DAILY #30 tab 08/12/20 [Rx] Sucralfate [Carafate] 1 gm PO AC-TID #90 tab 08/12/20 [Rx] polyethylene glycoL 3350 [Miralax] 17 gm PO DAILY PRN 10/20/20 [History] Dicyclomine [Bentyl] 10 mg PO QID PRN cap 10/22/20 [Rx] Isosorbide Mononitrate ER [Imdur] 30 mg PO DAILY #30 tab.er.24h 10/22/20 [Rx] cloNIDine HCL [Catapres] 0.2 mg PO BID #60 tab 10/22/20 [Rx] Follow up Appointment(s)/Referral(s): None,Stated [Primary Care Provider] - 1-2 days
[2020-10-22] MEDS ORDERED: carvediloL 12.5 MG TAB PO SCH (17:30)
== END 2020-10-22 18:15 | disposition home or self-care (01) ==
LOC: EC 15:10 → OBSVTOIN 16:58 → INTOOBSV 16:58 → 1SOBS 16:58 → 3SCARD 10-21 02:52 → UNDODISIN 10-22 18:15
PROVIDERS: ADMIT Internal Medicine; ATTEND Internal Medicine
DX: R07.9 Chest pain, unspecified (principal); I25.10 Atherosclerotic heart disease of native coronary artery without angina pectoris; J44.9 Chronic obstructive pulmonary disease, unspecified; K21.9 Gastro-esophageal reflux disease without esophagitis; E78.5 Hyperlipidemia, unspecified; I10 Essential (primary) hypertension; M19.90 Unspecified osteoarthritis, unspecified site; K44.9 Diaphragmatic hernia without obstruction or gangrene; G89.4 Chronic pain syndrome; G43.909 Migraine, unspecified, not intractable, without status migrainosus; E05.90 Thyrotoxicosis, unspecified without thyrotoxic crisis or storm; R00.2 Palpitations; Z90.49 Acquired absence of other specified parts of digestive tract; Z95.5 Presence of coronary angioplasty implant and graft; Z98.1 Arthrodesis status; Z98.41 Cataract extraction status, right eye; Z86.718 Personal history of other venous thrombosis and embolism; Z98.890 Other specified postprocedural states; Z87.19 Personal history of other diseases of the digestive system; Z87.11 Personal history of peptic ulcer disease; Z82.49 Family history of ischemic heart disease and other diseases of the circulatory system; Z82.5 Family history of asthma and other chronic lower respiratory diseases; Z80.6 Family history of leukemia; Z79.82 Long term (current) use of aspirin; Z79.891 Long term (current) use of opiate analgesic; Z79.899 Other long term (current) drug therapy; Z88.6 Allergy status to analgesic agent
CPT/HCPCS: 96376 ×4; 96375 ×3; 96374; 99285; 36415; 93005; 93351; 85379; 83880; 80053 ×2; 83690; 83735; 84484; 85025 ×2; 85610; 85730; 71046; G0378 ×4; J1250; J2270; J0360; J2405 ×3; J1170 ×3

== ENCOUNTER 2020-12-12 08:36 | Emergency (ER) | payer MEDICARE, OTHER ==
[2020-12-12 08:51] VITALS: BP 136/86; PULSE 121; RESP 16; TEMP 97.8
[2020-12-12] MEDS ORDERED: oxyCODONE-APAP 10-325MG 1 EACH TAB PO STA (08:51)
[2020-12-12] MEDS ORDERED: ONDANSETRON ODT 4 MG TAB PO STA (08:59)
[2020-12-12] MEDS ORDERED: HYDROmorphone 0.5 MG/0.5 ML SYRINGE IM STA (09:00)
[2020-12-12] MEDS ORDERED: cloNIDine 0.1 MG/24HR PATCH TRANSDERM SCH (09:00)
--- NOTE | 2020-12-12 09:09 | ED ---
Nausea/Vomiting/Diarrhea HPI - General Chief complaint: Nausea/Vomiting/Diarrhea Stated complaint: Withdrawl Time Seen by Provider: 12/12/20 08:44 Source: patient Mode of arrival: ambulatory Limitations: no limitations - History of Present Illness Initial comments: 65yo male presenting for cc of opioid withdrawal. pt states that he has been withdrawaling, with nausea, occasional vomiting since he ran out of his percocets and morphine. pt states he was taking more than prescribed because of his shoulder. He states he is scheduled for rotator cuff surgery on the 27 of december and will get more pain medications at that time. pt admits to insomnia, body aches. He has occasional diarrhea. he states he is tolerating oral intake. denies fevers. States he has a cough on ROS, states not new. He states I dont feel sick scik but like i am withdrawing. pt states he has no additional complaints. Jade chest discomfort or dyspnea, denies leg swelling. patient appears in no distress, HR elevated. EKG obtained at that time. - Related Data Home Medications Medication Instructions Recorded Confirmed Fluticasone Nasal [place] [Flonase 1 spray EA NOSTRIL BID 04/20/17 10/20/20 Nasal [place]] Morphine Sulfate ER [Ms Contin] 30 mg PO Q8H 10/10/17 10/20/20 tiZANidine [Zanaflex] 4 mg PO TID PRN 02/26/18 10/20/20 Aspirin EC [Ecotrin Low Dose] 81 mg PO DAILY 01/02/20 10/20/20 carvediloL [Coreg*] 12.5 mg PO AC-BID 01/02/20 10/20/20 oxyCODONE-APAP 10-325MG [Percocet 1 tab PO Q8H PRN 01/02/20 10/20/20 10-325 mg] Prasugrel [Effient] 10 mg PO DAILY 08/06/20 10/20/20 lisinopriL 40 mg PO DAILY 08/06/20 10/20/20 polyethylene glycoL 3350 [Miralax] 17 gm PO DAILY PRN 10/20/20 10/20/20 Previous Rx's Medication Instructions Recorded Atorvastatin [Lipitor] 80 mg PO HS #30 tab 10/12/17 cloNIDine HCL [Catapres] 0.1 mg PO BID #60 tab 02/08/19 Ezetimibe [Zetia] 10 mg PO DAILY #30 tab 05/24/19 amLODIPine [Norvasc] 5 mg PO BID #60 tab 05/24/19 Nitroglycerin Sl Tabs [Nitrostat] 0.4 mg SUBLINGUAL Q5M PRN #20 tab 07/02/19 Pantoprazole Sodium [Protonix] 40 mg PO DAILY #30 tab 08/12/20 Sucralfate [Carafate] 1 gm PO AC-TID #90 tab 08/12/20 Dicyclomine [Bentyl] 10 mg PO QID PRN cap 10/22/20 Isosorbide Mononitrate ER [Imdur] 30 mg PO DAILY #30 tab.er.24h 10/22/20 cloNIDine HCL [Catapres] 0.2 mg PO BID #60 tab 10/22/20 Ondansetron Odt [Zofran Odt] 4 mg PO Q8HR PRN 7 Days #21 tab 12/12/20 Allergies Allergy/AdvReac Type Severity Reaction Status Date / Time ibuprofen [From Motrin] Allergy Rash/Hives Verified 12/12/20 08:48 ketorolac tromethamine Allergy Rash/Hives Verified 12/12/20 08:48 [From Toradol] Review of Systems ROS Statement: Those systems with pertinent positive or pertinent negative responses have been documented in the HPI. ROS Other: All systems not noted in ROS Statement are negative. Past Medical History Past Medical History: Coronary Artery Disease (CAD), Chest Pain / Angina, COPD, Deep Vein Thrombosis (DVT), GERD/Reflux, Hyperlipidemia, Hypertension, Osteoarthritis (OA), Thyroid Disorder Additional Past Medical History / Comment(s): Occasional palpitations, gastritis, small hiatal hernia, diverticular dx, pt states years ago he had PUD, chronic low back pain, chronic pain syndrome, migraines, DVT L arm, numbness/tingling bilateral lower legs, bilateral past R hand fracture, arthritis multiple joints, hyperthyroid, sinus problems. History of Any Multi-Drug Resistant Organisms: None Reported Past Surgical History: Back Surgery, Cholecystectomy, Heart Catheterization With Stent, Orthopedic Surgery Additional Past Surgical History / Comment(s): EGDs/colonoscopies, multiple low back surgeries, bilateral arm and bilateral thigh surgeries for brown recluse spider bites with infection, morphine pain pump insertion and removal due to infection, PCI with stents, L rotator cuff repair, L knee arthroscopy, cervical fusion/cage, R cataract removal. Past Anesthesia/Blood Transfusion Reactions: No Reported Reaction Additional Past Anesthesia/Blood Transfusion Reaction / Comment(s): Pt states after cervical fusion he "" in the recovery room but does not know cause- he was"gone for 8 minutes" and states he was resusitated. Pt received blood after back surgery and tolerated it well. Date of Last Stent Placement:: 10/12/17 Past Psychological History: No Psychological Hx Reported Smoking Status: Never smoker Past Alcohol Use History: None Reported Past Drug Use History: None Reported - Past Family History Father Family Medical History: No Reported History Additional Family Medical History / Comment(s): Father had back problems. He lived to be 82 yrs old. Mother History Unknown: Yes Family Medical History: Hypertension, Myocardial Infarction (DE) Additional Family Medical History / Comment(s): Mother of a DE at the age of 55yrs. Brother(s) Family Medical History: Cancer, COPD Additional Family Medical History / Comment(s): Leukemia General Exam - General Exam Comments Initial Comments: General: The patient is awake and alert, in no distress Eye: +3 mm pupils are equal, round and reactive to light, extra-ocular movements are intact. No nystagmus. There is normal conjunctiva bilaterally. No signs of icterus. Ears, nose, mouth and throat: There are moist mucous membranes and no oral lesions. Neck: The neck is supple, there is no tenderness or JVD. Cardiovascular: There is a regular rate and rhythm. No murmur, rub or gallop is appreciated. Respiratory: Lungs are clear to auscultation, respirations are non-labored, breath sounds are equal. No wheezes, stridor, rales, or rhonchi. Gastrointestinal: Soft, non-distended, non-tender abdomen without masses or organomegaly noted. There is no rebound or guarding present. Musculoskeletal: Normal ROM, no tenderness. Strength 5/5. Sensation intact. Radial pulses equal bilaterally 2+. Neurological: A&O x 3. CN II-XII intact grossly, There are no obvious motor or sensory deficits. Coordination appears grossly intact. Speech is normal. Skin: Skin is warm and dry and no rashes or lesions are noted. Psychiatric: Cooperative, appropriate mood & affect, normal judgment. Limitations: no limitations Course Vital Signs 12/12/20 08:48 Temperature 97.8 F Pulse Rate 121 H Respiratory 16 Rate Blood Pressure 136/86 O2 Sat by Pulse 99 Oximetry Medical Decision Making - Medical Decision Making Pt appears well no distress. hx of opioid dependance and abuse-taking more than instructed. pt frequently comes for pain management in the ER. I discussed the dangers of taking more than prescribed and risk of dependence. pt is not vomiting in ER, he passed PO challenge. EKG sinus tachycardia. pt will be discharged with PCP f/u, recommend pain management f/u. pt discharged appearing well agreeable to care plan. attending agreeable to this care plan and discharge. Ventricular rate of 113 beats were minute, MD interval 146 months seconds, QRS ratio 92 ms, QT/QTC 3:30/452. This is sinus tachycardia no ST elevation or depression is appreciated. Disposition Clinical Impression: Opioid withdrawal Disposition: HOME SELF-CARE Condition: Good Instructions (If sedation given, give patient instructions): Opioid Withdrawal (ED) Additional Instructions: Please use medication as discussed. Please follow-up with family doctor in the next 2 days, for further management of chronic pain and opioid withdrawal. Take zofran for nausea every 8 hours in order to increase your oral intake. Please return to emergency room if the symptoms increase or worsen or for any other concerns. Prescriptions: Ondansetron Odt [Zofran Odt] 4 mg PO Q8HR PRN 7 Days #21 tab PRN Reason: Nausea Is patient prescribed a controlled substance at d/c from ED?: No Referrals: None,Stated [Primary Care Provider] - 1-2 days Time of Disposition: 09:09
== END 2020-12-12 09:28 | disposition home or self-care (01) ==
LOC: EC 08:36
DX: F11.23 Opioid dependence with withdrawal (principal); R19.7 Diarrhea, unspecified; I25.119 Atherosclerotic heart disease of native coronary artery with unspecified angina pectoris; J44.9 Chronic obstructive pulmonary disease, unspecified; K21.9 Gastro-esophageal reflux disease without esophagitis; I10 Essential (primary) hypertension; M19.90 Unspecified osteoarthritis, unspecified site; G89.29 Other chronic pain; M54.5 Low back pain; G43.909 Migraine, unspecified, not intractable, without status migrainosus; Z79.899 Other long term (current) drug therapy; Z79.82 Long term (current) use of aspirin; Z95.5 Presence of coronary angioplasty implant and graft; Z88.6 Allergy status to analgesic agent
CPT/HCPCS: 96372 ×2; 99285 ×2; 93005; J1170

== ENCOUNTER 2021-01-01 07:42 | Emergency (ER) | payer MEDICARE, OTHER ==
[2021-01-01 07:57] VITALS: BP 134/81; PULSE 101; RESP 18; TEMP 98
[2021-01-01] MEDS ORDERED: FUROSEMIDE 10 MG/ML 4 ML VIAL IV STA (08:16)
[2021-01-01] MEDS ORDERED: MORPHINE SULFATE 4 MG/ML SYRINGE IVP STA (08:16)
[2021-01-01] MEDS ORDERED: MORPHINE SULFATE 4 MG/ML SYRINGE IM STA (08:25)
[2021-01-01] MEDS ORDERED: FUROSEMIDE 40 MG TAB PO STA (08:25)
--- NOTE | 2021-01-01 09:16 | ED ---
Extremity Problem HPI - General Chief complaint: Extremity Problem,Nontraumatic Stated complaint: feet swelling Time Seen by Provider: 01/01/21 07:55 Source: patient, RN notes reviewed Mode of arrival: wheelchair Limitations: no limitations - History of Present Illness Initial comments: This is a 65-year-old male presents emergency Department chief complaint of lower [place] swelling. Patient states has been on and off issue. Patient denies any recent dietary changes. No medication changes. Denies chest pain shortness of breath. Patient states his legs are achy. Patient has had multiple prior echocardiograms with no evidence of CHF. Patient denies any fevers or chills no open lesions or sores. - Related Data Home Medications Medication Instructions Recorded Confirmed Fluticasone Nasal [place] [Flonase 1 spray EA NOSTRIL BID 04/20/17 01/01/21 Nasal [place]] Morphine Sulfate ER [Ms Contin] 30 mg PO Q8H 10/10/17 01/01/21 tiZANidine [Zanaflex] 4 mg PO TID PRN 02/26/18 01/01/21 Aspirin EC [Ecotrin Low Dose] 81 mg PO DAILY 01/02/20 01/01/21 carvediloL [Coreg*] 12.5 mg PO AC-BID 01/02/20 01/01/21 oxyCODONE-APAP 10-325MG [Percocet 1 tab PO Q8H PRN 01/02/20 01/01/21 10-325 mg] Prasugrel [Effient] 10 mg PO DAILY 08/06/20 01/01/21 lisinopriL 40 mg PO DAILY 08/06/20 01/01/21 polyethylene glycoL 3350 [Miralax] 17 gm PO DAILY PRN 10/20/20 01/01/21 oxyCODONE HCL [OxyCONTIN] 20 mg PO QID PRN 01/01/21 01/01/21 Previous Rx's Medication Instructions Recorded Atorvastatin [Lipitor] 80 mg PO HS #30 tab 10/12/17 Ezetimibe [Zetia] 10 mg PO DAILY #30 tab 05/24/19 amLODIPine [Norvasc] 5 mg PO BID #60 tab 05/24/19 Nitroglycerin Sl Tabs [Nitrostat] 0.4 mg SUBLINGUAL Q5M PRN #20 tab 07/02/19 Pantoprazole Sodium [Protonix] 40 mg PO DAILY #30 tab 08/12/20 Sucralfate [Carafate] 1 gm PO AC-TID #90 tab 08/12/20 Dicyclomine [Bentyl] 10 mg PO QID PRN cap 10/22/20 Isosorbide Mononitrate ER [Imdur] 30 mg PO DAILY #30 tab.er.24h 10/22/20 cloNIDine HCL [Catapres] 0.2 mg PO BID #60 tab 10/22/20 Furosemide [Lasix] 40 mg PO DAILY #4 tablet 01/01/21 Allergies Allergy/AdvReac Type Severity Reaction Status Date / Time ibuprofen [From Motrin] Allergy Rash/Hives Verified 01/01/21 09:10 ketorolac tromethamine Allergy Rash/Hives Verified 01/01/21 09:10 [From Toradol] Review of Systems ROS Statement: Those systems with pertinent positive or pertinent negative responses have been documented in the HPI. ROS Other: All systems not noted in ROS Statement are negative. Past Medical History Past Medical History: Coronary Artery Disease (CAD), Chest Pain / Angina, COPD, Deep Vein Thrombosis (DVT), GERD/Reflux, Hyperlipidemia, Hypertension, Osteoarthritis (OA), Thyroid Disorder Additional Past Medical History / Comment(s): Occasional palpitations, gastritis, small hiatal hernia, diverticular dx, pt states years ago he had PUD, chronic low back pain, chronic pain syndrome, migraines, DVT L arm, numbness/tingling bilateral lower legs, bilateral past R hand fracture, arthritis multiple joints, hyperthyroid, sinus problems. History of Any Multi-Drug Resistant Organisms: None Reported Past Surgical History: Back Surgery, Cholecystectomy, Heart Catheterization With Stent, Orthopedic Surgery Additional Past Surgical History / Comment(s): EGDs/colonoscopies, multiple low back surgeries, bilateral arm and bilateral thigh surgeries for brown recluse spider bites with infection, morphine pain pump insertion and removal due to infection, PCI with stents, L rotator cuff repair, L knee arthroscopy, cervical fusion/cage, R cataract removal. Past Anesthesia/Blood Transfusion Reactions: No Reported Reaction Additional Past Anesthesia/Blood Transfusion Reaction / Comment(s): Pt states after cervical fusion he "" in the recovery room but does not know cause- he was"gone for 8 minutes" and states he was resusitated. Pt received blood after back surgery and tolerated it well. Date of Last Stent Placement:: 10/12/17 Past Psychological History: No Psychological Hx Reported Smoking Status: Never smoker Past Alcohol Use History: None Reported Past Drug Use History: None Reported - Past Family History Father Family Medical History: No Reported History Additional Family Medical History / Comment(s): Father had back problems. He lived to be 82 yrs old. Mother History Unknown: Yes Family Medical History: Hypertension, Myocardial Infarction (ND) Additional Family Medical History / Comment(s): Mother of a ND at the age of 55yrs. Brother(s) Family Medical History: Cancer, COPD Additional Family Medical History / Comment(s): Leukemia General Exam Limitations: no limitations General appearance: alert, in no apparent distress Head exam: Present: atraumatic, normocephalic, normal inspection Eye exam: Present: normal appearance, PERRL, EOMI. Absent: scleral icterus, conjunctival injection, periorbital swelling Neck exam: Present: normal inspection, full ROM. Absent: tenderness, meningismus, lymphadenopathy Respiratory exam: Present: normal lung sounds bilaterally. Absent: respiratory distress, wheezes, rales, rhonchi, stridor Cardiovascular Exam: Present: regular rate, normal rhythm, normal heart sounds. Absent: systolic murmur, diastolic murmur, rubs, gallop, clicks GI/Abdominal exam: Present: soft, normal bowel sounds. Absent: distended, tenderness, guarding, rebound, rigid Extremities exam: Present: normal inspection, full ROM, normal capillary refill, pedal edema (2+). Absent: calf tenderness Neurological exam: Present: alert, oriented X3, CN II-XII intact, reflexes normal. Absent: motor sensory deficit Skin exam: Present: warm, dry, intact, normal color. Absent: rash Course Vital Signs 01/01/21 07:55 Temperature 98.0 F Pulse Rate 101 H Respiratory 18 Rate Blood Pressure 134/81 O2 Sat by Pulse 98 Oximetry Medical Decision Making - Medical Decision Making 65-year-old presented for leg swelling this is a chronic ongoing issue patient echocardiogram was reviewed there is no significant abnormality or signs of CHF. BNP is minimal is no respiratory issues. Patient provided a few days of Lasix advised follow-up with PCP and cardiology and return for any worsening change in symptoms. - Lab Data Result diagrams: 01/01/21 08:37 01/01/21 08:37 Lab Results 01/01/21 01/01/21 01/01/21 Range/Units 08:37 08:37 08:37 WBC 2.1 L (3.8-10.6) k/uL RBC 4.16 L (4.30-5.90) m/uL Hgb 12.3 L (13.0-17.5) gm/dL Hct 37.8 L (39.0-53.0) % MCV 91.0 (80.0-100.0) fL MCH 29.6 (25.0-35.0) pg MCHC 32.5 (31.0-37.0) g/dL RDW 15.0 (11.5-15.5) % Plt Count 345 (150-450) k/uL MPV 6.1 Neutrophils % 55 % Lymphocytes % 31 % Monocytes % 8 % Eosinophils % 2 % Basophils % 1 % Neutrophils # 1.1 L (1.3-7.7) k/uL Lymphocytes # 0.6 L (1.0-4.8) k/uL Monocytes # 0.2 (0-1.0) k/uL Eosinophils # 0.0 (0-0.7) k/uL Basophils # 0.0 (0-0.2) k/uL Sodium 135 L (137-145) mmol/L Potassium 4.4 (3.5-5.1) mmol/L Chloride 102 (98-107) mmol/L Carbon Dioxide 23 (22-30) mmol/L Anion Gap 10 mmol/L BUN 16 (9-20) mg/dL Creatinine 0.56 L (0.66-1.25) mg/dL Est GFR (CKD-EPI)AfAm >90 (>60 ml/min/1.73 sqM) Est GFR (CKD-EPI)NonAf >90 (>60 ml/min/1.73 sqM) Glucose 118 H (74-99) mg/dL Calcium 9.7 (8.4-10.2) mg/dL Total Bilirubin 0.3 (0.2-1.3) mg/dL AST 20 (17-59) U/L ALT 11 (4-49) U/L Alkaline Phosphatase 64 (38-126) U/L NT-Pro-B Natriuret Pep 19 pg/mL Total Protein 7.4 (6.3-8.2) g/dL Albumin 4.5 (3.5-5.0) g/dL - EKG Data -: EKG Interpreted by Me EKG Comments: EKG performed at 8:04 normal sinus rhythm rate of 85 NV 154 QRS 88 QT/QTC 370/440 Disposition Clinical Impression: Leg edema Disposition: HOME SELF-CARE Condition: Stable Instructions (If sedation given, give patient instructions): Leg Edema (ED) Additional Instructions: Please return to the Emergency Department if symptoms worsen or any other concerns. Prescriptions: Furosemide [Lasix] 40 mg PO DAILY #4 tablet Is patient prescribed a controlled substance at d/c from ED?: No Referrals: None,Stated [Primary Care Provider] - 1-2 days Time of Disposition: 09:56
[2021-01-01 09:20] LABS: ALT 11 U/L (4-49); AST 20 U/L (17-59); African American GFR (CKD) >90 (>60 ml/min/1.73 sqM); Albumin 4.5 g/dL (3.5-5.0); Alkaline Phosphatase 64 U/L (38-126); Anion Gap 10 mmol/L; Basophils % (A) 1 %; Blood Urea Nitrogen 16 mg/dL (9-20); Calcium 9.7 mg/dL (8.4-10.2); Carbon Dioxide 23 mmol/L (22-30); Chloride 102 mmol/L (98-107); Eosinophils % (A) 2 %; Glucose 118 mg/dL (74-99); HCT 37.8 % (39.0-53.0); HGB 12.3 gm/dL (13.0-17.5); Lymphocytes # (A) 0.6 k/uL (1.0-4.8); Lymphocytes % (A) 31 %; MCH 29.6 pg (25.0-35.0); MCHC 32.5 g/dL (31.0-37.0); Mean Platelet Volume 6.1; Monocytes # (A) 0.2 k/uL (0-1.0); Monocytes % (A) 8 %; Neutrophils # (A) 1.1 k/uL (1.3-7.7); Neutrophils % (A) 55 %; Non-African American GFR(CKD) >90 (>60 ml/min/1.73 sqM); Platelet Count 345 k/uL (150-450); Potassium 4.4 mmol/L (3.5-5.1); RBC 4.16 m/uL (4.30-5.90); Sodium 135 mmol/L (137-145); Total Bilirubin 0.3 mg/dL (0.2-1.3); Total Protein 7.4 g/dL (6.3-8.2); WBC 2.1 k/uL (3.8-10.6)
== END 2021-01-01 10:03 | disposition home or self-care (01) ==
LOC: EC 07:42
DX: R60.0 Localized edema (principal); I25.119 Atherosclerotic heart disease of native coronary artery with unspecified angina pectoris; I10 Essential (primary) hypertension; M19.90 Unspecified osteoarthritis, unspecified site; Z79.82 Long term (current) use of aspirin; Z79.899 Other long term (current) drug therapy; Z88.6 Allergy status to analgesic agent; Z86.69 Personal history of other diseases of the nervous system and sense organs; Z90.49 Acquired absence of other specified parts of digestive tract; Z95.5 Presence of coronary angioplasty implant and graft; Z98.1 Arthrodesis status; Z98.41 Cataract extraction status, right eye
CPT/HCPCS: 36415; 93005; 83880; 80053; 85025; 99283; 96372; J2270

== ENCOUNTER → 2021-01-01 | Outpatient (CLI) | payer MEDICARE, OTHER | END | disposition home or self-care (01) | LOC: RADMRIMAIN 07:32 | PROVIDERS: ATTEND Orthopaedic Surgery | DX: Z53.9 Procedure and treatment not carried out, unspecified reason (principal) ==

== ENCOUNTER 2021-02-13 05:35 | Observation (INO) | payer MEDICARE, OTHER ==
[2021-02-13] MEDS ORDERED: MECLIZINE 12.5 MG TAB PO STA (06:08)
[2021-02-13] MEDS ORDERED: SODIUM CHLORIDE 0.9% 1,000 ML IV STA (06:08)
[2021-02-13 06:34] LABS: Basophils % (A) 1 %; Eosinophils % (A) 1 %; HCT 34.4 % (39.0-53.0); Lymphocytes # (A) 1.4 k/uL (1.0-4.8); Lymphocytes % (A) 36 %; MCH 28.8 pg (25.0-35.0); MCHC 31.8 g/dL (31.0-37.0); MCV 90.5 fL (80.0-100.0); Mean Platelet Volume 6.3; Monocytes # (A) 0.4 k/uL (0-1.0); Monocytes % (A) 9 %; Neutrophils % (A) 51 %; Platelet Count 413 k/uL (150-450); WBC 3.9 k/uL (3.8-10.6)
--- NOTE | 2021-02-13 06:43 | ED ---
General Adult HPI - General Chief complaint: Dizziness Stated complaint: dizziness Time Seen by Provider: 02/13/21 06:08 Source: patient, EMS, RN notes reviewed Mode of arrival: EMS Limitations: no limitations - History of Present Illness Initial comments: This a 65-year-old male presents emergency Department chief complaint of feeling lightheaded. Patient states his started around 2 AM when his up. He states he took his blood pressure medication around 5 and proceeded to call EMS. Patient denies any chest pain shortness breath. Patient states that he just had surgery last Thursday on his right shoulder. Patient states he's had some cramping in his abdomen no localized pain no dysuria no hematuria denies any medication changes. Patient does take chronic pain meds. - Related Data Home Medications Medication Instructions Recorded Confirmed Fluticasone Nasal [place] [Flonase 1 spray EA NOSTRIL BID 04/20/17 01/01/21 Nasal [place]] Morphine Sulfate ER [Ms Contin] 30 mg PO Q8H 10/10/17 01/01/21 tiZANidine [Zanaflex] 4 mg PO TID PRN 02/26/18 01/01/21 Aspirin EC [Ecotrin Low Dose] 81 mg PO DAILY 01/02/20 01/01/21 carvediloL [Coreg*] 12.5 mg PO AC-BID 01/02/20 01/01/21 oxyCODONE-APAP 10-325MG [Percocet 1 tab PO Q8H PRN 01/02/20 01/01/21 10-325 mg] Prasugrel [Effient] 10 mg PO DAILY 08/06/20 01/01/21 lisinopriL 40 mg PO DAILY 08/06/20 01/01/21 polyethylene glycoL 3350 [Miralax] 17 gm PO DAILY PRN 10/20/20 01/01/21 oxyCODONE HCL [OxyCONTIN] 20 mg PO QID PRN 01/01/21 01/01/21 Previous Rx's Medication Instructions Recorded Atorvastatin [Lipitor] 80 mg PO HS #30 tab 10/12/17 Ezetimibe [Zetia] 10 mg PO DAILY #30 tab 05/24/19 amLODIPine [Norvasc] 5 mg PO BID #60 tab 05/24/19 Nitroglycerin Sl Tabs [Nitrostat] 0.4 mg SUBLINGUAL Q5M PRN #20 tab 07/02/19 Pantoprazole Sodium [Protonix] 40 mg PO DAILY #30 tab 08/12/20 Sucralfate [Carafate] 1 gm PO AC-TID #90 tab 08/12/20 Dicyclomine [Bentyl] 10 mg PO QID PRN cap 10/22/20 Isosorbide Mononitrate ER [Imdur] 30 mg PO DAILY #30 tab.er.24h 10/22/20 cloNIDine HCL [Catapres] 0.2 mg PO BID #60 tab 10/22/20 Dicyclomine [Bentyl] 20 mg PO TID #12 tablet 01/01/21 Furosemide [Lasix] 40 mg PO DAILY #4 tablet 01/01/21 Allergies Allergy/AdvReac Type Severity Reaction Status Date / Time ibuprofen [From Motrin] Allergy Rash/Hives Verified 02/13/21 05:41 ketorolac tromethamine Allergy Rash/Hives Verified 02/13/21 05:41 [From Toradol] Review of Systems ROS Statement: Those systems with pertinent positive or pertinent negative responses have been documented in the HPI. ROS Other: All systems not noted in ROS Statement are negative. Past Medical History Past Medical History: Coronary Artery Disease (CAD), Chest Pain / Angina, COPD, Deep Vein Thrombosis (DVT), GERD/Reflux, Hyperlipidemia, Hypertension, Osteoarthritis (OA), Thyroid Disorder Additional Past Medical History / Comment(s): Occasional palpitations, gastritis, small hiatal hernia, diverticular dx, pt states years ago he had PUD, chronic low back pain, chronic pain syndrome, migraines, DVT L arm, numbness/tingling bilateral lower legs, bilateral past R hand fracture, arthritis multiple joints, hyperthyroid, sinus problems. History of Any Multi-Drug Resistant Organisms: None Reported Past Surgical History: Back Surgery, Cholecystectomy, Heart Catheterization With Stent, Orthopedic Surgery Additional Past Surgical History / Comment(s): EGDs/colonoscopies, multiple low back surgeries, bilateral arm and bilateral thigh surgeries for brown recluse spider bites with infection, morphine pain pump insertion and removal due to infection, PCI with stents, L rotator cuff repair, L knee arthroscopy, cervical fusion/cage, R cataract removal. Past Anesthesia/Blood Transfusion Reactions: No Reported Reaction Additional Past Anesthesia/Blood Transfusion Reaction / Comment(s): Pt states after cervical fusion he "" in the recovery room but does not know cause- he was"gone for 8 minutes" and states he was resusitated. Pt received blood after back surgery and tolerated it well. Date of Last Stent Placement:: 10/12/17 Past Psychological History: No Psychological Hx Reported Smoking Status: Never smoker Past Alcohol Use History: None Reported Past Drug Use History: None Reported - Past Family History Father Family Medical History: No Reported History Additional Family Medical History / Comment(s): Father had back problems. He lived to be 82 yrs old. Mother History Unknown: Yes Family Medical History: Hypertension, Myocardial Infarction ([place]) Additional Family Medical History / Comment(s): Mother of a MA at the age of 55yrs. Brother(s) Family Medical History: Cancer, COPD Additional Family Medical History / Comment(s): Leukemia General Exam Limitations: no limitations General appearance: alert, in no apparent distress Head exam: Present: atraumatic, normocephalic, normal inspection Eye exam: Present: normal appearance, PERRL, EOMI. Absent: scleral icterus, conjunctival injection, periorbital swelling ENT exam: Present: normal exam, mucous membranes moist Neck exam: Present: normal inspection, full ROM. Absent: tenderness, meningismus, lymphadenopathy Respiratory exam: Present: normal lung sounds bilaterally. Absent: respiratory distress, wheezes, rales, rhonchi, stridor Cardiovascular Exam: Present: regular rate, normal rhythm, normal heart sounds. Absent: systolic murmur, diastolic murmur, rubs, gallop, clicks GI/Abdominal exam: Present: soft, tenderness (Minimal), normal bowel sounds. Absent: distended, guarding, rebound, rigid Back exam: Absent: CVA tenderness (R), CVA tenderness (L) Neurological exam: Present: alert, oriented X3 Skin exam: Present: warm, dry, intact, normal color. Absent: rash Course Vital Signs 02/13/21 02/13/21 05:36 06:45 Temperature 98.7 F Pulse Rate 90 82 Respiratory 20 20 Rate Blood Pressure 94/59 102/62 O2 Sat by Pulse 97 97 Oximetry EKG Findings - EKG Comments: EKG Findings:: EKG performed at 540 normal sinus rhythm rate of 88 HI 162. Sites 2 QT / QTC 374/452 Medical Decision Making - Medical Decision Making 65-year-old presented for feeling lightheaded. Patient workup reveals acute renal failure. There is no clear cause at this time. Bladder scan was performed there is no post kidney obstruction. Patient was given fluid bolus. Patient will be admitted for nephrology evaluation will have kidney ultrasound. - Lab Data Result diagrams: 02/13/21 06:18 02/13/21 06:18 Lab Results 02/13/21 02/13/21 02/13/21 Range/Units 06:18 06:18 06:18 WBC 3.9 (3.8-10.6) k/uL RBC 3.80 L (4.30-5.90) m/uL Hgb 11.0 L (13.0-17.5) gm/dL Hct 34.4 L (39.0-53.0) % MCV 90.5 (80.0-100.0) fL MCH 28.8 (25.0-35.0) pg MCHC 31.8 (31.0-37.0) g/dL RDW 15.0 (11.5-15.5) % Plt Count 413 (150-450) k/uL MPV 6.3 Neutrophils % 51 % Lymphocytes % 36 % Monocytes % 9 % Eosinophils % 1 % Basophils % 1 % Neutrophils # 2.0 (1.3-7.7) k/uL Lymphocytes # 1.4 (1.0-4.8) k/uL Monocytes # 0.4 (0-1.0) k/uL Eosinophils # 0.0 (0-0.7) k/uL Basophils # 0.0 (0-0.2) k/uL Sodium 133 L (137-145) mmol/L Potassium 4.2 (3.5-5.1) mmol/L Chloride 102 (98-107) mmol/L Carbon Dioxide 19 L (22-30) mmol/L Anion Gap 12 mmol/L BUN 25 H (9-20) mg/dL Creatinine 3.66 H (0.66-1.25) mg/dL Est GFR (CKD-EPI)AfAm 19 (>60 ml/min/1.73 sqM) Est GFR (CKD-EPI)NonAf 17 (>60 ml/min/1.73 sqM) Glucose 116 H (74-99) mg/dL Calcium 8.0 L (8.4-10.2) mg/dL Total Bilirubin 0.2 (0.2-1.3) mg/dL AST 19 (17-59) U/L ALT 8 (4-49) U/L Alkaline Phosphatase 67 (38-126) U/L Troponin I <0.012 (0.000-0.034) ng/mL Total Protein 6.3 (6.3-8.2) g/dL Albumin 3.8 (3.5-5.0) g/dL Disposition Clinical Impression: Acute renal failure, Lightheadedness Disposition: ADMITTED IP TO THIS HOSP Condition: Fair Referrals: None,Stated [Primary Care Provider] - 1-2 days
[2021-02-13 06:45] LABS: Albumin 3.8 g/dL (3.5-5.0); Potassium 4.2 mmol/L (3.5-5.1); Total Bilirubin 0.2 mg/dL (0.2-1.3); Total Protein 6.3 g/dL (6.3-8.2)
[2021-02-13] MEDS ORDERED: NALOXONE 0.4 MG/ML 1 ML VIAL IV PRN (07:47)
[2021-02-13] MEDS ORDERED: ONDANSETRON 4 MG/2 ML VIAL IVP PRN ×2 (07:47→08:31)
[2021-02-13] MEDS ORDERED: MORPHINE SULFATE 2 MG/ML SYRINGE IVP PRN (08:31)
[2021-02-13] MEDS ORDERED: ACETAMINOPHEN TAB 325 MG TAB PO PRN (08:31)
[2021-02-13] MEDS ORDERED: DICYCLOMINE 10 MG CAP PO PRN (08:34)
[2021-02-13] MEDS ORDERED: SODIUM CHLORIDE 0.9% (DEHP FRE 500 ML IV ONE (08:35)
--- NOTE | 2021-02-13 08:42 | P.HPIM ---
History of Present Illness H&P Date: 02/13/21 Chief Complaint: Abdominal pain and nausea This is a 65-year-old male with complex past medical history noted below significant for coronary artery disease and chronic low back pain following with the pain clinic at [facility] who presented to the emergency room with abdominal pain. Patient said that his pain started yesterday and is been getting progressively worse. He is rating his pain as 8 out of 10 in severity. Pain is mostly in the periumbilical area. There is no radiation. Pain is associated with nausea, poor by mouth intake, but no vomiting. Patient reported that he had a bowel movement yesterday that he described as diarrhea. He otherwise denies any fevers or chills. Patient presented to the emergency room this morning and was found to have acute kidney failure with a creatinine of 1.8. Normally his creatinine is normal. Patient denies any recent medication change. Patient said that his blood pressure has been running low at home. He denies taking any NSAIDs. No alcohol use. Patient was evaluated in the emergency room and will be admitted to the hospital for further management of his medical problems noted below. Review of Systems Review of system: 14 points review of systems were obtained and were negative except to what were mentioned in the HPI. Past Medical History Past Medical History: Coronary Artery Disease (CAD), Chest Pain / Angina, COPD, Deep Vein Thrombosis (DVT), GERD/Reflux, Hyperlipidemia, Hypertension, Osteoarthritis (OA), Thyroid Disorder Additional Past Medical History / Comment(s): Occasional palpitations, ga stritis, small hiatal hernia, diverticular dx, pt states years ago he had PUD, chronic low back pain, chronic pain syndrome, migraines, DVT L arm, numbness/tingling bilateral lower legs, bilateral past R hand fracture, arthritis multiple joints, hyperthyroid, sinus problems. History of Any Multi-Drug Resistant Organisms: None Reported Past Surgical History: Back Surgery, Cholecystectomy, Heart Catheterization With Stent, Orthopedic Surgery Additional Past Surgical History / Comment(s): EGDs/colonoscopies, multiple low back surgeries, bilateral arm and bilateral thigh surgeries for brown recluse spider bites with infection, morphine pain pump insertion and removal due to infection, PCI with stents, L rotator cuff repair, L knee arthroscopy, cervical fusion/cage, R cataract removal. Past Anesthesia/Blood Transfusion Reactions: No Reported Reaction Additional Past Anesthesia/Blood Transfusion Reaction / Comment(s): Pt states after cervical fusion he "" in the recovery room but does not know cause- he was"gone for 8 minutes" and states he was resusitated. Pt received blood after back surgery and tolerated it well. Date of Last Stent Placement:: 10/12/17 Past Psychological History: No Psychological Hx Reported Smoking Status: Never smoker Past Alcohol Use History: None Reported Past Drug Use History: None Reported - Past Family History Father Family Medical History: No Reported History Additional Family Medical History / Comment(s): Father had back problems. He lived to be 82 yrs old. Mother History Unknown: Yes Family Medical History: Hypertension, Myocardial Infarction ([place]) Additional Family Medical History / Comment(s): Mother of a [place] at the age of 55yrs. Brother(s) Family Medical History: Cancer, COPD Additional Family Medical History / Comment(s): Leukemia Medications and Allergies Home Medications Medication Instructions Recorded Confirmed Type Fluticasone Nasal [place] [Flonase 1 spray EA NOSTRIL BID 04/20/17 02/13/21 History Nasal [place]] Morphine Sulfate ER [Ms Contin] 30 mg PO Q8H 10/10/17 02/13/21 History Atorvastatin [Lipitor] 80 mg PO HS #30 tab 10/12/17 02/13/21 Rx tiZANidine [Zanaflex] 4 mg PO TID PRN 02/26/18 02/13/21 History Ezetimibe [Zetia] 10 mg PO DAILY #30 tab 05/24/19 02/13/21 Rx amLODIPine [Norvasc] 5 mg PO BID #60 tab 05/24/19 02/13/21 Rx Nitroglycerin Sl Tabs [Nitrostat] 0.4 mg SUBLINGUAL Q5M PRN #20 tab 07/02/19 02/13/21 Rx Aspirin EC [Ecotrin Low Dose] 81 mg PO DAILY 01/02/20 02/13/21 History carvediloL [Coreg*] 12.5 mg PO AC-BID 01/02/20 02/13/21 History oxyCODONE-APAP 10-325MG [Percocet 1 tab PO Q8H PRN 01/02/20 02/13/21 History 10-325 mg] Prasugrel [Effient] 10 mg PO DAILY 08/06/20 02/13/21 History lisinopriL 40 mg PO DAILY 08/06/20 02/13/21 History oxyCODONE HCL [OxyCONTIN] 20 mg PO QID PRN 01/01/21 02/13/21 History Dicyclomine [Bentyl] 10 mg PO TID PRN 02/13/21 02/13/21 History Allergies Allergy/AdvReac Type Severity Reaction Status Date / Time ibuprofen [From Motrin] Allergy Rash/Hives Verified 02/13/21 08:11 ketorolac tromethamine Allergy Rash/Hives Verified 02/13/21 08:11 [From Toradol] Physical Exam Vitals: Vital Signs Temp Pulse Resp BP Pulse Ox 02/13/21 06:45 82 20 102/62 97 02/13/21 05:36 98.7 F 90 20 94/59 97 Intake and Output 02/12/21 02/13/21 02/13/21 22:59 06:59 14:59 Other: Weight 78.018 kg General: The patient is awake and alert, in no distress Eye: there is normal conjunctiva bilaterally. Neck: The neck is supple, there is no JVD. Cardiovascular: Normal S1-S2, no S3-S4, no murmurs. Respiratory: Lungs clear to auscultation bilaterally Gastrointestinal: Abdomen is soft, there is moderate to severe tenderness in the periumbilical area. Musculoskeletal: There is no pedal edema. Neurological:. Speech is normal. Skin: Skin is warm and dry Results CBC & Chem 7: 02/13/21 06:18 02/13/21 06:18 Labs: Abnormal Lab Results - Last 24 Hours (Table) 02/13/21 02/13/21 Range/Units 06:18 06:18 RBC 3.80 L (4.30-5.90) m/uL Hgb 11.0 L (13.0-17.5) gm/dL Hct 34.4 L (39.0-53.0) % Sodium 133 L (137-145) mmol/L Carbon Dioxide 19 L (22-30) mmol/L BUN 25 H (9-20) mg/dL Creatinine 3.66 H (0.66-1.25) mg/dL Glucose 116 H (74-99) mg/dL Calcium 8.0 L (8.4-10.2) mg/dL Assessment and Plan Assessment: This is a 65-year-old male with past medical history noted below who presented to the emergency room with worsening abdominal pain and nausea. Patient was evaluated in the ER and will be admitted to the hospital for further management of his medical problems noted below. 1. Acute kidney injury, most likely secondary to dehydration, poor by mouth intake, and low blood pressure. Patient received 1 L IV fluid bolus of normal saline in the ER. Continue IV fluid with normal saline at 75 mL per hour. Check bladder scan to assess postvoid residual. Nephrology consulted for further evaluation. Hold nephrotoxic. 2. Abdominal pain, exact etiology unclear. I would obtain a noncontrast CT of the abdomen and pelvis for further evaluation. Check lipase. This appears to be a recurrent problem for this patient. On previous admission he had the early ileus on CT that resolved. He also underwent multiple upper endoscopies most recently in July 2020 showing evidence of erosive gastritis and mild duodenitis. 3. Essential hypertension: Blood pressure on the lower side. I would hold all of his blood pressure medications at this time and continue to monitor closely. 4. Chronic medical problems: Coronary artery disease, history of DVT not on anticoagulation, underlying COPD, chronic low back pain following with the pain clinic at [facility], hyperlipidemia 5. DVT prophylaxis with subcu heparin
[2021-02-13] MEDS ORDERED: PANTOPRAZOLE 40 MG/10 ML VIAL IVP SCH (09:00)
--- NOTE | 2021-02-13 09:05 | US ---
EXAMINATION TYPE: US kidneys/renal and bladder DATE OF EXAM: 02/13/2021 COMPARISON: CT 2019 CLINICAL HISTORY: renal failure. EXAM MEASUREMENTS: Right Kidney: 12.0 x 4.7 x 5.6 cm Left Kidney: 11.5 x 5.6 x 5.6 cm Right Kidney: No hydronephrosis or nephrolithiasis or masses seen Left Kidney: No hydronephrosis, nephrolithiasis or masses seen Bladder: wnl Bilateral Jets seen: Yes There is no evidence for hydronephrosis at this point in time. No nephrolithiasis is seen. No francisco s are identified. The urinary bladder is anechoic. Bilateral ureteral jets are seen. IMPRESSION:
--- NOTE | 2021-02-13 09:35 | CT ---
EXAMINATION TYPE: CT abdomen pelvis wo con DATE OF EXAM: 02/13/2021 COMPARISON: 08/06/2020 HISTORY: Abdominal pain and rule out hydronephrosis CT DLP: 640.1 mGycm Automated exposure control for dose reduction was used. TECHNIQUE: Helical acquisition of images was performed from the lung bases through the pelvis. FINDINGS: LUNG BASES: No significant abnormality is appreciated. LIVER/GB: Surgical clips in the gallbladder fossa noted.. PANCREAS: No significant abnormality is seen. SPLEEN: No significant abnormality is seen. ADRENALS: No significant abnormality is seen. KIDNEYS: Minimal prominence the right collecting system with no evidence of nephrolithiasis or eviden ce of ureteral calculus.. ADENOPATHY: None visualized. OSSEOUS STRUCTURES: Postsurgical changes are seen involving the vertebral column. BOWEL: No significant abnormality is seen. OTHER: Small fat-containing periumbilical hernia. Aorta demonstrates atherosclerotic change with no e vidence of aneurysm. The bladder is distended. IMPRESSION: 1. No evidence of nephrolithiasis. There is very mild prominence of the right collecting system witho ut evidence of stranding calcification.
[2021-02-13] MEDS: HEPARIN SODIUM,PORCINE 5,000 UNIT/ML 1 ML VIAL SQ SCH ×2 (10:22→20:08)
[2021-02-13] MEDS: ASPIRIN 81 MG PO SCH (10:22)
[2021-02-13] MEDS: SODIUM CHLORIDE 0.9% 1,000 ML IV SCH ×2 (10:22→21:44)
[2021-02-13] MEDS: HYDROmorphone 0.5 MG/0.5 ML SYRINGE IVP PRN ×3 (10:23→20:08)
[2021-02-13 10:54] LABS: Appearance,Urine Clear (Clear); Bilirubin,Urine Negative (Negative); Blood,Urine Trace (Negative); Color,Urine Yellow; Glucose,Urine (UA) Negative (Negative); Hyaline Casts,Urine 7 /lpf (0-2); Ketones,Urine Negative (Negative); Leukocyte Esterase,Urine Negative (Negative); Mucus,Urine Rare /hpf; Nitrite,Urine Negative (Negative); PH, Urine 5.5 (5.0-8.0); Protein,Urine Trace (Negative); Specific Gravity,Urine 1.015 (1.001-1.035); Urobilinogen,Urine <2.0 mg/dL (<2.0); WBC,Urine <1 /hpf (0-5)
[2021-02-13] MEDS: MORPHINE SULFATE ER 30 MG TABLET PO SCH ×2 (11:13→17:44)
[2021-02-13] MEDS: EZETIMIBE 10 MG TAB PO SCH (11:13)
[2021-02-13] MEDS: PRASUGREL 10 MG TAB PO SCH (11:14)
--- NOTE | 2021-02-13 12:10 | CONS ---
CONSULTATION REASON FOR CONSULT: Renal failure. HISTORY OF PRESENT ILLNESS: The patient is a 65-year-old male who was admitted to the hospital with complaints of abdominal pain. He was found to have a creatinine of 3.6, and we have a previous creatinine of 0.5 on 01/01/2021. Patient did admit to some nausea and vomiting. His blood pressure is on the lower side with systolic 94 mmHg when he came in. He denies any significant urinary symptoms. No history of kidney diseases. No prostatic issues. No history of use of NSAIDs recently. Patient was maintained on FRANCOISE inhibitors, lisinopril 40 mg daily prior to admission. Currently maintained on IV fluids. PAST MEDICAL HISTORY: Hypertension, coronary artery disease, COPD, history of DVT, gastroesophageal reflux disease, osteoarthritis, hypothyroidism, hiatal hernia, diverticular disease, chronic pain syndrome, neuropathy. PAST SURGICAL HISTORY: Cholecystectomy, cardiac catheterization, coronary stent placement, back surgery, EGDs, colonoscopies, thigh surgery after insect bite with I and D, left rotator cuff, left knee arthroscopy, cervical fusion, right cataract removal. SOCIAL HISTORY: Negative for smoking, drug abuse or alcohol abuse. MEDICATIONS: Medications prior to admission included Bentyl, lisinopril, Effient, Coreg, aspirin, amlodipine, Zetia, Zanaflex, Lipitor, nasal spray, morphine. ALLERGIES: Allergies include IBUPROFEN, KETORALAC causes rash and hives. REVIEW OF SYSTEMS: As per HPI. Other systems negative. PHYSICAL EXAMINATION: The patient is comfortable, awake, not in any acute distress. Alert, oriented x3. Blood pressure is 127/82, heart rate 88 per minute. He is afebrile. EXAMINATION OF THE HEART: S1, S2. EXAMINATION OF THE LUNGS: Bilateral breath sounds are heard. Abdomen is soft, with tenderness noted in the mid abdomen. Examination of lower extremities shows no evidence of edema. REDEVELOPMENT MANAGER exam grossly intact. LABS: Labs show sodium 133, potassium 4.2, chloride 102, CO2 is 19, BUN 25, creatinine 3.6, hemoglobin 11.0. UA shows trace protein, trace blood, WBCs less than 1. ASSESSMENT: 1. Acute kidney injury associated with hypotension and volume depletion currently with good urine output. Repeat labs tomorrow. Continue with IV fluids. Hold off on FRANCOISE inhibitors. Continue to avoid nephrotoxic agents. 2. Abdominal pain. No evidence of significant abnormality noted on CT of the abdomen. The patient has history of diverticular disease currently maintained on symptomatic treatment. 3. History of gastroesophageal reflux disease. 4. History of coronary artery disease, status post coronary stents. PLAN: Continue IV fluids. Continue off of FRANCOISE inhibitors. Repeat labs in a.m. Thank you for this consultation. We will continue to follow the patient with you during his hospitalization. MMODL / BRANDANN: [id number] /
[2021-02-13] MEDS ORDERED: HYDROmorphone 0.5 MG/0.5 ML SYRINGE IVP PRN (20:26)
[2021-02-13] MEDS ORDERED: ATORVASTATIN 80 MG TAB PO SCH (21:00)
[2021-02-13] MEDS ORDERED: HYDROmorphone 0.5 MG/0.5 ML SYRINGE IVP STA (21:09)
[2021-02-13] MEDS ORDERED: PANTOPRAZOLE 40 MG/10 ML VIAL IVP ONE (21:13)
--- NOTE | 2021-02-13 21:51 | XR ---
EXAM: Abdomen radiograph. HISTORY: Concern for pneumoperitoneum. TECHNIQUE: Supine and upright AP views of the abdomen with PA chest. COMPARISON: 10/12/2020. FINDINGS: There are nondilated bowel loops with a nonobstructive pattern. Gastric bubble noted. No free air. Th ere are no pathologic calcifications. No acute osseous abnormality seen. There is moderate stool prisca en. Lumbar and cervical spine fusion seen. Cholecystectomy clips are also seen. The lungs are clear. The cardiomediastinal silhouette and central pulmonary vascularity is normal. No pleural effusion or pneumothorax. IMPRESSION: No acute process or pneumoperitoneum.
--- NOTE | 2021-02-13 22:01 | P.EN ---
called by RN to evaluate patient with increased abd pain and distention patient lying in bed complaining of sharp diffused abd pain 8/10 , no nausea or vomiting, no gi bleeding , patient claims he urinated OK, and tolerating PO intake on exam vital signs stable awake , alert, orientedX3 lungs clear to auscultation heart normal s1 s2 regular abd , mild mod distentio n, epigastric hernia , diffuse tenderness to gentle palpation , voluntary guarding to deep palpation , bowel sounds positive and frequent leg no tenderness bilaterally , no swelling over calf muscles CT was done on admission , no acute pathology acute abd series done , and reviewed, no evidence of pneumoperitoneum labs reviewed patient has history of duodenitis and gastritis , denies any history of GI bleeding plan supportive care increase pain medications (patient chronically on 30 of morphine 3 times a day , and oxycodone 20 four times a day ) increase dilaudid to 1 mg q3 PRN for pain AAS reviewed one time dose of protonix 80 mg IV P protonix 40 mg BID NPO continue with normal saline IVF hydration increase to 125 cc/ hour monitor urine output monitor vital signs
[2021-02-14] MEDS: MORPHINE SULFATE ER 30 MG TABLET PO SCH ×2 (00:42→08:33)
[2021-02-14] MEDS: HYDROmorphone 1 MG/ML 1 ML SYRINGE IVP PRN ×4 (00:43→11:59)
[2021-02-14] MEDS ORDERED: cloNIDine HCL 0.2 MG TAB PO PRN (02:33)
[2021-02-14] MEDS ORDERED: PANTOPRAZOLE 40 MG TABLET PO SCH (07:30)
[2021-02-14] MEDS: ASPIRIN 81 MG PO SCH (08:33)
[2021-02-14] MEDS: HEPARIN SODIUM,PORCINE 5,000 UNIT/ML 1 ML VIAL SQ SCH (08:33)
[2021-02-14] MEDS: EZETIMIBE 10 MG TAB PO SCH (08:33)
[2021-02-14] MEDS: SODIUM CHLORIDE 0.9% 1,000 ML IV SCH (08:34)
[2021-02-14 08:51] LABS: Basophils % (A) 1 %; Eosinophils # (A) 0.1 k/uL (0-0.7); Eosinophils % (A) 4 %; HGB 11.3 gm/dL (13.0-17.5); Lymphocytes # (A) 0.8 k/uL (1.0-4.8); Lymphocytes % (A) 29 %; MCH 30.5 pg (25.0-35.0); MCHC 34.3 g/dL (31.0-37.0); Mean Platelet Volume 6.3; Monocytes # (A) 0.2 k/uL (0-1.0); Monocytes % (A) 8 %; Neutrophils # (A) 1.7 k/uL (1.3-7.7); Neutrophils % (A) 58 %; Platelet Count 330 k/uL (150-450); RBC 3.71 m/uL (4.30-5.90); RDW 14.8 % (11.5-15.5); WBC 2.9 k/uL (3.8-10.6)
[2021-02-14 08:55] LABS: African American GFR (CKD) >90 (>60 ml/min/1.73 sqM); Anion Gap 5 mmol/L; Blood Urea Nitrogen 9 mg/dL (9-20); Calcium 8.3 mg/dL (8.4-10.2); Carbon Dioxide 19 mmol/L (22-30); Chloride 110 mmol/L (98-107); Glucose 109 mg/dL (74-99); Lipase 27 U/L (23-300); Non-African American GFR(CKD) >90 (>60 ml/min/1.73 sqM); Potassium 4.6 mmol/L (3.5-5.1); Sodium 134 mmol/L (137-145)
[2021-02-14] MEDS: PRASUGREL 10 MG TAB PO SCH (08:58)
[2021-02-14 14:09] VITALS: BP 148/80; PULSE 86; RESP 16; TEMP 97.3
--- NOTE | 2021-02-14 14:19 | P.DS ---
Providers Date of admission: 02/13/21 08:10 Expected date of discharge: 02/14/21 Attending physician: Viviane Chang Consults: 02/13/21 07:47 Consult Physician Urgent Consulting Provider: Sparkle Moraes Consult Reason/Comments: Acute renal failure Do you want consulting provider notified?: Yes 02/14/21 08:45 Consult Physician Routine Consulting Provider: Laura Simmons Consult Reason/Comments: Abdominal pain Do you want consulting provider notified?: Yes Primary care physician: Stated None Hospital Course: This is a 65-year-old male with past medical history noted below who presented to the emergency room with worsening abdominal pain and nausea. Patient was evaluated in the ER and will be admitted to the hospital for further management of his medical problems noted below. 1. Acute kidney injury, most likely secondary to dehydration, poor by mouth intake, and low blood pressure. Resolved with IV fluid hydration. Creatinine back to normal. Bladder scan showed no significant residuals. Ultrasound with no hydronephrosis. Patient was seen and evaluated by nephrology. 2. Abdominal pain, exact etiology unclear. This appears to be a recurrent problem for this patient. Computed tomography scan of the abdomen and pelvis with no acute findings. On previous admission he had the early ileus on CT that resolved. He also underwent multiple upper endoscopies most recently in July 2020 showing evidence of erosive gastritis and mild duodenitis. He was seen and evaluated by GI during this admission and no plan for repeat endoscopy at this time. 3. Essential hypertension: Blood pressure On the lower side on presentation. Amlodipine dose changed to 5 mg once daily. 4. Chronic medical problems: Coronary artery disease, history of DVT not on anticoagulation, underlying COPD, chronic low back pain following with the pain clinic at [facility], hyperlipidemia unfortunately, patient is showing sign of pain medication seeking behavior. There is no explanation for his constant abdominal pain. When I told him that he is being discharged he asked me to get his IV pain medication shot one last time prior to discharge. Patient Condition at Discharge: Fair Plan - Discharge Summary Discharge Rx Participant: No New Discharge Prescriptions: Continue Fluticasone Nasal [place] [Flonase Nasal [place]] 1 spray EA NOSTRIL BID Morphine Sulfate ER [Ms Contin] 30 mg PO Q8H Atorvastatin [Lipitor] 80 mg PO HS #30 tab tiZANidine [Zanaflex] 4 mg PO TID PRN PRN Reason: Muscle Spasm Ezetimibe [Zetia] 10 mg PO DAILY #30 tab Nitroglycerin Sl Tabs [Nitrostat] 0.4 mg SUBLINGUAL Q5M PRN #20 tab PRN Reason: Chest Pain oxyCODONE-APAP 10-325MG [Percocet 10-325 mg] 1 tab PO Q8H PRN PRN Reason: Pain Aspirin EC [Ecotrin Low Dose] 81 mg PO DAILY carvediloL [Coreg*] 12.5 mg PO AC-BID lisinopriL 40 mg PO DAILY Prasugrel [Effient] 10 mg PO DAILY Dicyclomine [Bentyl] 10 mg PO TID PRN PRN Reason: IBS Changed amLODIPine [Norvasc] 5 mg PO DAILY #60 tab Discontinued oxyCODONE HCL [OxyCONTIN] 20 mg PO QID PRN PRN Reason: Pain Discharge Medication List Fluticasone Nasal [place] [Flonase Nasal [place]] 1 spray EA NOSTRIL BID 04/20/17 [History] Morphine Sulfate ER [Ms Contin] 30 mg PO Q8H 10/10/17 [History] Atorvastatin [Lipitor] 80 mg PO HS #30 tab 10/12/17 [Rx] tiZANidine [Zanaflex] 4 mg PO TID PRN 02/26/18 [History] Ezetimibe [Zetia] 10 mg PO DAILY #30 tab 05/24/19 [Rx] Nitroglycerin Sl Tabs [Nitrostat] 0.4 mg SUBLINGUAL Q5M PRN #20 tab 07/02/19 [Rx] Aspirin EC [Ecotrin Low Dose] 81 mg PO DAILY 01/02/20 [History] carvediloL [Coreg*] 12.5 mg PO AC-BID 01/02/20 [History] oxyCODONE-APAP 10-325MG [Percocet 10-325 mg] 1 tab PO Q8H PRN 01/02/20 [History] Prasugrel [Effient] 10 mg PO DAILY 08/06/20 [History] lisinopriL 40 mg PO DAILY 08/06/20 [History] Dicyclomine [Bentyl] 10 mg PO TID PRN 02/13/21 [History] amLODIPine [Norvasc] 5 mg PO DAILY #60 tab 02/14/21 [Rx] Follow up Appointment(s)/Referral(s): None,Stated [Primary Care Provider] - 1-2 days Discharge Disposition: HOME SELF-CARE
--- NOTE | 2021-02-14 15:48 | PN ---
PROGRESS NOTE Patient is seen for followup for acute kidney injury, which appears to be mostly prerenal. Patient was started on IV fluids. His creatinine has improved from 3.6 to 0.58 today. The patient is still complaining of abdominal pain. He denies any nausea or vomiting. No significant diarrhea. PHYSICAL EXAMINATION: Blood pressure was 148/80, heart rate 86 per minute. He is afebrile. EXAMINATION OF THE HEART: S1 and S2. EXAMINATION OF LUNGS: Bilateral breath sounds are heard. ABDOMEN: Soft. Tenderness noted. Examination of lower extremities shows no evidence of edema. TECHNICAL INFORMATION SPECIALIST exam is grossly intact. LABS: Sodium 134, potassium 4.6, chloride 110. CO2 is 19, BUN 9, creatinine 0.58, hemoglobin 11.3 g/dL. UA shows trace protein, trace blood. ASSESSMENT: 1. Acute kidney injury, prerenal, currently significantly improved with IV fluids. Continue IV fluids for now, as patient is not eating much. 2. Abdominal pain, somewhat improved. CT scan did not reveal any acute findings. 3. History of hypertension. 4. Dyslipidemia. PLAN: Continue IV fluids. Continue to hold off on FRANCOISE inhibitors for now. Avoid NSAIDs. MMODL / IJN: [id number] /
== END 2021-02-14 14:55 | disposition home or self-care (01) ==
LOC: EC 05:35 → 5NMEDONC 08:10 → INTOOBSV 08:10 → 5NMEDONC 18:40 → 1SOBS 21:40 → UNDODISIN 02-14 14:55
PROVIDERS: ADMIT Internal Medicine; ATTEND Internal Medicine
DX: N17.9 Acute kidney failure, unspecified (principal); I95.9 Hypotension, unspecified; Z86.74 Personal history of sudden cardiac arrest; E03.9 Hypothyroidism, unspecified; J44.9 Chronic obstructive pulmonary disease, unspecified; Z20.822 Contact with and (suspected) exposure to COVID-19; E86.0 Dehydration; R10.9 Unspecified abdominal pain; G89.4 Chronic pain syndrome; M54.5 Low back pain; G62.9 Polyneuropathy, unspecified; G43.909 Migraine, unspecified, not intractable, without status migrainosus; K43.9 Ventral hernia without obstruction or gangrene; K42.9 Umbilical hernia without obstruction or gangrene; K58.9 Irritable bowel syndrome, unspecified; R11.2 Nausea with vomiting, unspecified; Z76.5 Malingerer [conscious simulation]; I25.10 Atherosclerotic heart disease of native coronary artery without angina pectoris; K21.9 Gastro-esophageal reflux disease without esophagitis; E78.5 Hyperlipidemia, unspecified; I10 Essential (primary) hypertension; M19.90 Unspecified osteoarthritis, unspecified site; K44.9 Diaphragmatic hernia without obstruction or gangrene; Z79.82 Long term (current) use of aspirin; Z79.51 Long term (current) use of inhaled steroids; Z79.02 Long term (current) use of antithrombotics/antiplatelets; Z79.891 Long term (current) use of opiate analgesic; Z79.899 Other long term (current) drug therapy; Z86.718 Personal history of other venous thrombosis and embolism; Z90.49 Acquired absence of other specified parts of digestive tract; Z87.19 Personal history of other diseases of the digestive system; Z87.11 Personal history of peptic ulcer disease; Z87.81 Personal history of (healed) traumatic fracture; Z95.5 Presence of coronary angioplasty implant and graft; Z87.39 Personal history of other diseases of the musculoskeletal system and connective tissue; Z98.1 Arthrodesis status; Z98.41 Cataract extraction status, right eye; Z86.19 Personal history of other infectious and parasitic diseases; Z98.890 Other specified postprocedural states; Z88.6 Allergy status to analgesic agent; Z88.8 Allergy status to other drugs, medicaments and biological substances; Z82.49 Family history of ischemic heart disease and other diseases of the circulatory system; Z82.5 Family history of asthma and other chronic lower respiratory diseases; Z80.6 Family history of leukemia
CPT/HCPCS: 96376 ×2; 96361 ×2; 96372 ×2; 96374; 96375; 99285; 51798; 36415; 93005; 80053; 80048; 83690 ×2; 84484; 85025 ×2; 81001; 87635; 74022; 76770; 74176; G0378 ×3; J1644 ×2; J1170 ×2; C9113; 96360

== ENCOUNTER 2021-02-22 10:21 | Emergency (ER) | payer MEDICARE, OTHER ==
[2021-02-22 10:26] VITALS: TEMP 98.2
--- NOTE | 2021-02-22 10:45 | ED ---
General Adult HPI - General Chief complaint: Extremity Injury, Upper Stated complaint: Swollen extremity Time Seen by Provider: 02/22/21 10:30 Source: patient Mode of arrival: ambulatory Limitations: no limitations - History of Present Illness Initial comments: 65-year-old male with complex medical history presents emergency Department with chief complaint of swelling on his left hand. Patient reports increased swelling in his left hand that is moving proximally. He denies any recent injuries to the hand. He reports some mild shortness of breath on exertion but states that is his baseline. Denies significant chest pain. Denies any diaphoretic episodes. However, he felt lightheaded earlier but not dizzy. 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 Patient states he was hospitalized with the last month for acute renal failure. He denies any nausea vomiting diarrhea at this time. Denies any one-sided weakness or paresthesias. Denies any abdominal or back pain. - Related Data Home Medications Medication Instructions Recorded Confirmed Fluticasone Nasal [place] [Flonase 1 spray EA NOSTRIL BID 04/20/17 02/22/21 Nasal [place]] Morphine Sulfate ER [Ms Contin] 30 mg PO Q8H 10/10/17 02/22/21 tiZANidine [Zanaflex] 4 mg PO TID PRN 02/26/18 02/22/21 Aspirin EC [Ecotrin Low Dose] 81 mg PO DAILY 01/02/20 02/22/21 carvediloL [Coreg*] 12.5 mg PO AC-BID 01/02/20 02/22/21 oxyCODONE-APAP 10-325MG [Percocet 1 tab PO Q8H PRN 01/02/20 02/22/21 10-325 mg] Prasugrel [Effient] 10 mg PO DAILY 08/06/20 02/22/21 lisinopriL 40 mg PO DAILY 08/06/20 02/22/21 Dicyclomine [Bentyl] 10 mg PO TID PRN 02/13/21 02/22/21 Pregabalin 100 mg PO BID 02/22/21 02/22/21 oxyCODONE HCL [Roxicodone] 15 mg PO TID PRN 02/22/21 02/22/21 Previous Rx's Medication Instructions Recorded Atorvastatin [Lipitor] 80 mg PO HS #30 tab 10/12/17 Ezetimibe [Zetia] 10 mg PO DAILY #30 tab 05/24/19 Nitroglycerin Sl Tabs [Nitrostat] 0.4 mg SUBLINGUAL Q5M PRN #20 tab 07/02/19 amLODIPine [Norvasc] 5 mg PO DAILY #60 tab 02/14/21 Allergies Allergy/AdvReac Type Severity Reaction Status Date / Time ibuprofen [From Motrin] Allergy Rash/Hives Verified 02/22/21 12:09 ketorolac tromethamine Allergy Rash/Hives Verified 02/22/21 12:09 [From Toradol] Review of Systems ROS Statement: Those systems with pertinent positive or pertinent negative responses have been documented in the HPI. ROS Other: All systems not noted in ROS Statement are negative. Past Medical History Past Medical History: Coronary Artery Disease (CAD), Chest Pain / Angina, COPD, Deep Vein Thrombosis (DVT), GERD/Reflux, Hyperlipidemia, Hypertension, Osteoarthritis (OA), Thyroid Disorder Additional Past Medical History / Comment(s): Occasional palpitations, gastritis, small hiatal hernia, diverticular dx, pt states years ago he had PUD, chronic low back pain, chronic pain syndrome, migraines, DVT L arm, numbness/tingling bilateral lower legs, bilateral past R hand fracture, arthritis multiple joints, hyperthyroid, sinus problems. History of Any Multi-Drug Resistant Organisms: None Reported Past Surgical History: Back Surgery, Cholecystectomy, Heart Catheterization With Stent, Orthopedic Surgery Additional Past Surgical History / Comment(s): EGDs/colonoscopies, multiple low back surgeries, bilateral arm and bilateral thigh surgeries for brown recluse spider bites with infection, morphine pain pump insertion and removal due to infection, PCI with stents, L rotator cuff repair, L knee arthroscopy, cervical fusion/cage, R cataract removal. 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 He lived to be 82 yrs old. Mother History Unknown: Yes Family Medical History: Hypertension, Myocardial Infarction (HI) Additional Family Medical History / Comment(s): Mother of a HI at the age of 55yrs. Brother(s) Family Medical History: Cancer, COPD Additional Family Medical History / Comment(s): Leukemia General Exam Limitations: no limitations General appearance: alert, in no apparent distress Head exam: Present: atraumatic, normocephalic, normal inspection Eye exam: Present: normal appearance, PERRL, EOMI Pupils: Present: normal accommodation ENT exam: Present: normal exam, normal oropharynx, mucous membranes moist Neck exam: Present: normal inspection, full ROM. Absent: tenderness, lymphadenopathy Respiratory exam: Present: normal lung sounds bilaterally. Absent: respiratory distress, wheezes, rales, rhonchi, stridor, chest wall tenderness, accessory muscle use Cardiovascular Exam: Present: regular rate, normal rhythm, normal heart sounds. Absent: systolic murmur GI/Abdominal exam: Present: soft. Absent: distended, tenderness, guarding, rebound Extremities exam: Present: normal inspection (Mild edema noted in the left hand. No signs of injury.), full ROM, normal capillary refill, other (Palpable DP and PT bilaterally. Palpable ulnar and radial pulses bilaterally.). Absent: tenderness, pedal edema, joint swelling, calf tenderness Back exam: Present: normal inspection, full ROM. Absent: tenderness, CVA te nderness (R), CVA tenderness (L) Neurological exam: Present: alert, oriented X3, normal gait Psychiatric exam: Present: normal affect, normal mood Skin exam: Present: warm, dry, intact, normal color Course Vital Signs 02/22/21 02/22/21 02/22/21 10:22 12:30 13:30 Temperature 98.2 F Pulse Rate 79 74 72 Respiratory 18 20 18 Rate Blood Pressure 203/107 197/116 180/112 O2 Sat by Pulse 96 96 99 Oximetry 02/22/21 14:27 Temperature Pulse Rate 74 Respiratory 20 Rate Blood Pressure 196/123 O2 Sat by Pulse 99 Oximetry EKG Findings - EKG Comments: EKG Findings:: Sinus rhythm, inverted T-wave in lead 3. Ventricular rate 73, VA 162, QRS 90, QTc 429. Medical Decision Making - Medical Decision Making 65-year-old male with complex medical history presents emergency Department with chief complaint of swelling on his left hand . On physical examination, patient does not appear to have reproducible chest pain. he is not in any discomfort. There is swelling noted on the left hand, mild. No signs of erythema injury or warmth at the time. CBC reveals mild anemia, however this appears to be his baseline. Coags within normal limits. BNP 74. Initial troponins are negative. EKG showing no acute findings. Ultrasound of the left upper extremity reveals no signs of a DVT. Chest x-ray showing scattered areas of atelectasis but there is no acute processes. Patient was given sublingual nitro. This appears to be slightly hypertensive but states that is somewhat his baseline as well. He was advised to use medication at home. Patient is well-known to the emergency department for his frequent visits. Strict return parameters were thoroughly discussed the patient was assisting agreeable. Dr. Polanco also examined the patient and is in agreement with the treatment plan. - Lab Data Result diagrams: 02/22/21 12:54 02/22/21 12:54 Lab Results 02/22/21 02/22/21 02/22/21 Range/Units 12:54 12:54 12:54 WBC 3.8 (3.8-10.6) k/uL RBC 4.09 L (4.30-5.90) m/uL Hgb 12.2 L (13.0-17.5) gm/dL Hct 37.1 L (39.0-53.0) % MCV 90.7 (80.0-100.0) fL MCH 29.7 (25.0-35.0) pg MCHC 32.8 (31.0-37.0) g/dL RDW 15.0 (11.5-15.5) % Plt Count 330 (150-450) k/uL MPV 6.3 Neutrophils % 70 % Lymphocytes % 21 % Monocytes % 6 % Eosinophils % 1 % Basophils % 0 % Neutrophils # 2.7 (1.3-7.7) k/uL Lymphocytes # 0.8 L (1.0-4.8) k/uL Monocytes # 0.2 (0-1.0) k/uL Eosinophils # 0.0 (0-0.7) k/uL Basophils # 0.0 (0-0.2) k/uL PT 10.3 (9.0-12.0) sec INR 1.0 (<1.2) APTT 25.1 (22.0-30.0) sec Sodium 135 L (137-145) mmol/L Potassium 4.5 (3.5-5.1) mmol/L Chloride 101 (98-107) mmol/L Carbon Dioxide 27 (22-30) mmol/L Anion Gap 7 mmol/L BUN 7 L (9-20) mg/dL Creatinine 0.54 L (0.66-1.25) mg/dL Est GFR (CKD-EPI)AfAm >90 (>60 ml/min/1.73 sqM) Est GFR (CKD-EPI)NonAf >90 (>60 ml/min/1.73 sqM) Glucose 134 H (74-99) mg/dL Calcium 9.5 (8.4-10.2) mg/dL Magnesium 2.0 (1.6-2.3) mg/dL Total Bilirubin 0.7 (0.2-1.3) mg/dL AST 20 (17-59) U/L ALT 7 (4-49) U/L Alkaline Phosphatase 82 (38-126) U/L Troponin I (0.000-0.034) ng/mL NT-Pro-B Natriuret Pep pg/mL Total Protein 7.3 (6.3-8.2) g/dL Albumin 4.4 (3.5-5.0) g/dL 02/22/21 02/22/21 Range/Units 12:54 12:54 WBC (3.8-10.6) k/uL RBC (4.30-5.90) m/uL Hgb (13.0-17.5) gm/dL Hct (39.0-53.0) % MCV (80.0-100.0) fL MCH (25.0-35.0) pg MCHC (31.0-37.0) g/dL RDW (11.5-15.5) % Plt Count (150-450) k/uL MPV Neutrophils % % Lymphocytes % % Monocytes % % Eosinophils % % Basophils % % Neutrophils # (1.3-7.7) k/uL Lymphocytes # (1.0-4.8) k/uL Monocytes # (0-1.0) k/uL Eosinophils # (0-0.7) k/uL Basophils # (0-0.2) k/uL PT (9.0-12.0) sec INR (<1.2) APTT (22.0-30.0) sec Sodium (137-145) mmol/L Potassium (3.5-5.1) mmol/L Chloride (98-107) mmol/L Carbon Dioxide (22-30) mmol/L Anion Gap mmol/L BUN (9-20) mg/dL Creatinine (0.66-1.25) mg/dL Est GFR (CKD-EPI)AfAm (>60 ml/min/1.73 sqM) Est GFR (CKD-EPI)NonAf (>60 ml/min/1.73 sqM) Glucose (74-99) mg/dL Calcium (8.4-10.2) mg/dL Magnesium (1.6-2.3) mg/dL Total Bilirubin (0.2-1.3) mg/dL AST (17-59) U/L ALT (4-49) U/L Alkaline Phosphatase (38-126) U/L Troponin I <0.012 (0.000-0.034) ng/mL NT-Pro-B Natriuret Pep 72 pg/mL Total Protein (6.3-8.2) g/dL Albumin (3.5-5.0) g/dL Disposition Clinical Impression: Swelling of joint, hand, left Disposition: HOME SELF-CARE Condition: Stable Additional Instructions: 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 Return to emergency department if symptoms worsen. Is patient prescribed a controlled substance at d/c from ED?: No Referrals: None,Stated [Primary Care Provider] - 1-2 days Time of Disposition: 15:02
[2021-02-22] MEDS ORDERED: NITROGLYCERIN SL TABS 0.4 MG TAB SUBLINGUAL PRN (10:55)
--- NOTE | 2021-02-22 12:56 | XR ---
EXAMINATION TYPE: XR chest 2V DATE OF EXAM: 02/22/2021 COMPARISON: 10/20/2020 HISTORY: 65-year-old male with chest pain TECHNIQUE: AP and lateral views FINDINGS: ACDF hardware. Heart normal size. Mild tortuosity/ectasia of the thoracic aorta. Some scattered stran dy areas of atelectasis. Hazy peripheral midlung opacities likely related to overlying soft tissue. N o valerie consolidation or pleural effusion. IMPRESSION: Some scattered strandy areas of atelectasis. No definite acute process.
[2021-02-22] MEDS ORDERED: HYDROmorphone 1 MG/ML 1 ML SYRINGE IVP STA ×2 (12:57→16:17)
[2021-02-22 13:06] LABS: Basophils % (A) 0 %; Eosinophils % (A) 1 %; HCT 37.1 % (39.0-53.0); HGB 12.2 gm/dL (13.0-17.5); Lymphocytes # (A) 0.8 k/uL (1.0-4.8); Lymphocytes % (A) 21 %; MCH 29.7 pg (25.0-35.0); MCHC 32.8 g/dL (31.0-37.0); MCV 90.7 fL (80.0-100.0); Mean Platelet Volume 6.3; Monocytes # (A) 0.2 k/uL (0-1.0); Monocytes % (A) 6 %; Neutrophils # (A) 2.7 k/uL (1.3-7.7); Neutrophils % (A) 70 %; Platelet Count 330 k/uL (150-450); RBC 4.09 m/uL (4.30-5.90); WBC 3.8 k/uL (3.8-10.6)
[2021-02-22 13:25] LABS: Partial Thromboplastin Time 25.1 sec (22.0-30.0); Prothrombin Time 10.3 sec (9.0-12.0)
[2021-02-22 13:35] LABS: ALT 7 U/L (4-49); AST 20 U/L (17-59); African American GFR (CKD) >90 (>60 ml/min/1.73 sqM); Albumin 4.4 g/dL (3.5-5.0); Alkaline Phosphatase 82 U/L (38-126); Anion Gap 7 mmol/L; Blood Urea Nitrogen 7 mg/dL (9-20); Calcium 9.5 mg/dL (8.4-10.2); Carbon Dioxide 27 mmol/L (22-30); Chloride 101 mmol/L (98-107); Glucose 134 mg/dL (74-99); Non-African American GFR(CKD) >90 (>60 ml/min/1.73 sqM); Potassium 4.5 mmol/L (3.5-5.1); Sodium 135 mmol/L (137-145); Total Bilirubin 0.7 mg/dL (0.2-1.3); Total Protein 7.3 g/dL (6.3-8.2)
[2021-02-22 14:28] VITALS: RESP 20
--- NOTE | 2021-02-22 14:35 | US ---
EXAMINATION TYPE: US venous doppler duplex UE LT DATE OF EXAM: 02/22/2021 COMPARISON: NONE CLINICAL HISTORY: Rule out DVT. Left hand swelling x 4 days with left forearm pain; patient had right rotator cuff recently in past month. Patient denies trauma to left arm. SIDE PERFORMED: left Left Arm: Negative for DVT. Negative for SVT as able to visualize. Left posterior hand edema channels are seen. IMPRESSION: 1. Left upper extremity ultrasound negative for deep venous thrombosis. 2. No superficial venous thrombosis identified during the exam. 3. Soft tissue swelling over the dorsal left hand.
[2021-02-22 16:50] VITALS: BP 178/100; PULSE 90
== END 2021-02-22 16:45 | disposition home or self-care (01) ==
LOC: EC 10:21
DX: M79.89 Other specified soft tissue disorders (principal); R06.02 Shortness of breath; I25.10 Atherosclerotic heart disease of native coronary artery without angina pectoris; J44.9 Chronic obstructive pulmonary disease, unspecified; K21.9 Gastro-esophageal reflux disease without esophagitis; E78.5 Hyperlipidemia, unspecified; I10 Essential (primary) hypertension; M19.90 Unspecified osteoarthritis, unspecified site; Z86.718 Personal history of other venous thrombosis and embolism; Z87.891 Personal history of nicotine dependence; Z79.82 Long term (current) use of aspirin; Z79.899 Other long term (current) drug therapy
CPT/HCPCS: 36415; 93005; 83880; 80053; 83735; 84484; 85025; 85610; 85730; 71046; 93971; 99284; 96374; 96376; J1170

== ENCOUNTER 2021-03-04 08:20 | Emergency (ER) | payer MEDICARE, OTHER ==
[2021-03-04 08:29] VITALS: BP 148/98; PULSE 100; RESP 18; TEMP 97.9
[2021-03-04] MEDS ORDERED: HYDROmorphone 1 MG/ML 1 ML SYRINGE IM STA (08:53)
[2021-03-04] MEDS ORDERED: ONDANSETRON ODT 4 MG TAB PO STA (08:53)
[2021-03-04] MEDS ORDERED: ACET/COD 300 MG/30 MG STARTER PACK 6 TAB BTL PO STA (09:58)
--- NOTE | 2021-03-04 10:01 | ED ---
Headache HPI - General Chief Complaint: Headache Stated Complaint: migraine/vomiting Time Seen by Provider: 03/04/21 08:30 Mode of arrival: ambulatory Limitations: no limitations - History of Present Illness Initial Comments: Patient is a 65-year-old male has history of coronary artery disease, COPD, DVT, chronic headaches and presents to the emergency room with reported migraines. Patient reports that he has a history of chronic migraines with vomiting and will be unable to hold on his home medications. Patient is on chronic narcotics and in a pain contract. He denies any visual changes. No neck pain or chills. Denies any unilateral numbness or weakness. Denies any changes from his chronic headache. No other alleviating, press hand modifying factors - Related Data Home Medications Medication Instructions Recorded Confirmed Fluticasone Nasal [place] [Flonase 1 spray EA NOSTRIL BID 04/20/17 02/22/21 Nasal [place]] Morphine Sulfate ER [Ms Contin] 30 mg PO Q8H 10/10/17 02/22/21 tiZANidine [Zanaflex] 4 mg PO TID PRN 02/26/18 02/22/21 Aspirin EC [Ecotrin Low Dose] 81 mg PO DAILY 01/02/20 02/22/21 carvediloL [Coreg*] 12.5 mg PO AC-BID 01/02/20 02/22/21 oxyCODONE-APAP 10-325MG [Percocet 1 tab PO Q8H PRN 01/02/20 02/22/21 10-325 mg] Prasugrel [Effient] 10 mg PO DAILY 08/06/20 02/22/21 lisinopriL 40 mg PO DAILY 08/06/20 02/22/21 Dicyclomine [Bentyl] 10 mg PO TID PRN 02/13/21 02/22/21 Pregabalin 100 mg PO BID 02/22/21 02/22/21 oxyCODONE HCL [Roxicodone] 15 mg PO TID PRN 02/22/21 02/22/21 Previous Rx's Medication Instructions Recorded Atorvastatin [Lipitor] 80 mg PO HS #30 tab 10/12/17 Ezetimibe [Zetia] 10 mg PO DAILY #30 tab 05/24/19 Nitroglycerin Sl Tabs [Nitrostat] 0.4 mg SUBLINGUAL Q5M PRN #20 tab 07/02/19 amLODIPine [Norvasc] 5 mg PO DAILY #60 tab 02/14/21 Dicyclomine [Bentyl] 10 mg PO TID PRN #15 capsule 03/04/21 Prochlorperazine [Compazine] 10 mg PO Q6H PRN #12 tab 03/04/21 Allergies Allergy/AdvReac Type Severity Reaction Status Date / Time ibuprofen [From Motrin] Allergy Rash/Hives Verified 03/04/21 08:27 ketorolac tromethamine Allergy Rash/Hives Verified 03/04/21 08:27 [From Toradol] Review of Systems ROS Statement: Those systems with pertinent positive or pertinent negative responses have been documented in the HPI. ROS Other: All systems not noted in ROS Statement are negative. Past Medical History Past Medical History: Coronary Artery Disease (CAD), Chest Pain / Angina, COPD, Deep Vein Thrombosis (DVT), GERD/Reflux, Hyperlipidemia, Hypertension, Osteoarthritis (OA), Thyroid Disorder Additional Past Medical History / Comment(s): Occasional palpitations, gastritis, small hiatal hernia, diverticular dx, pt states years ago he had PUD, chronic low back pain, chronic pain syndrome, migraines, DVT L arm, numbness/tingling bilateral lower legs, bilateral past R hand fracture, arthritis multiple joints, hyperthyroid, sinus problems. History of Any Multi-Drug Resistant Organisms: None Reported Past Surgical History: Back Surgery, Cholecystectomy, Heart Catheterization With Stent, Orthopedic Surgery Additional Past Surgical History / Comment(s): EGDs/colonoscopies, multiple low back surgeries, bilateral arm and bilateral thigh surgeries for brown recluse spider bites with infection, morphine pain pump insertion and removal due to infection, PCI with stents, L rotator cuff repair, L knee arthroscopy, cervical fusion/cage, R cataract removal. 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 He lived to be 82 yrs old. Mother History Unknown: Yes Family Medical History: Hypertension, Myocardial Infarction (CA) Additional Family Medical History / Comment(s): Mother of a CA at the age of 55yrs. Brother(s) Family Medical History: Cancer, COPD Additional Family Medical History / Comment(s): Leukemia General Exam Limitations: no limitations Course Vital Signs 03/04/21 08:27 Temperature 97.9 F Pulse Rate 100 Respiratory 18 Rate Blood Pressure 148/98 O2 Sat by Pulse 99 Oximetry Medical Decision Making - Medical Decision Making The patient was placed into room 8. Thorough history and physical exam was performed. Patient was given 1 mg IM Dilaudid and a dose of Zofran. She is r eevaluated and feels much improved. Patient will be discharged home at this time to take his home medications. Requesting antiemetic which is sent to the pharmacy. Patient is also requesting a refill of his Bentyl which she is chronically on. Both these medications are sent pharmacy. He is instructed to follow up with his primary care doctor. Recommend follow-up with neurology for his chronic headaches. Return to the emergency department for any worsening symptoms. Patient was discharged home in stable condition Disposition Clinical Impression: Headache Disposition: HOME SELF-CARE Condition: Stable Instructions (If sedation given, give patient instructions): Acute Headache (ED) Additional Instructions: Please follow-up with your primary care doctor in 2-4 days. Return to the emergency room for any new or worsening symptoms Prescriptions: Dicyclomine [Bentyl] 10 mg PO TID PRN #15 capsule PRN Reason: Diarrhea Prochlorperazine [Compazine] 10 mg PO Q6H PRN #12 tab PRN Reason: Nausea Is patient prescribed a controlled substance at d/c from ED?: No Referrals: None,Stated [Primary Care Provider] - 1-2 days Time of Disposition: 10:01
== END 2021-03-04 10:08 | disposition home or self-care (01) ==
LOC: EC 08:20
DX: R51.9 Headache, unspecified (principal); I25.119 Atherosclerotic heart disease of native coronary artery with unspecified angina pectoris; J44.9 Chronic obstructive pulmonary disease, unspecified; I10 Essential (primary) hypertension; E78.5 Hyperlipidemia, unspecified; K21.9 Gastro-esophageal reflux disease without esophagitis; Z79.51 Long term (current) use of inhaled steroids; Z79.02 Long term (current) use of antithrombotics/antiplatelets; Z79.899 Other long term (current) drug therapy; Z79.82 Long term (current) use of aspirin; Z88.5 Allergy status to narcotic agent; Z88.6 Allergy status to analgesic agent; Z86.718 Personal history of other venous thrombosis and embolism; Z87.891 Personal history of nicotine dependence; Z95.5 Presence of coronary angioplasty implant and graft
CPT/HCPCS: 99283; 96372; J1170

== ENCOUNTER 2021-03-09 01:49 | Emergency (ER) | payer MEDICARE, OTHER ==
[2021-03-09 01:57] VITALS: RESP 18; TEMP 97.5
--- NOTE | 2021-03-09 02:06 | ED ---
General Adult HPI - General Chief complaint: Nausea/Vomiting/Diarrhea Stated complaint: Chest pain, left sided pain Time Seen by Provider: 03/09/21 01:59 Source: patient Mode of arrival: wheelchair Limitations: no limitations - History of Present Illness Initial comments: 65-year-old male presents emergency Department with chief complaint of nausea or vomiting. States this occurred around 7 PM yesterday. He does report nausea with multiple episodes of nonbloody is nonbloody vomiting. He does have Phenergan at home but was not able to tolerated due to the vomiting. He also reports a left sided chest pain with no associated shortness of breath. He also reports some epigastric abdominal pain. He does report history of a ventral hernia that has not been repaired. He denies any diaphoretic episodes, lightheadedness, dizziness, headache, gait instability, blurry vision, one-sided weakness or paresthesias. - Related Data Home Medications Medication Instructions Recorded Confirmed Fluticasone Nasal [place] [Flonase 1 spray EA NOSTRIL BID 04/20/17 02/22/21 Nasal [place]] Morphine Sulfate ER [Ms Contin] 30 mg PO Q8H 10/10/17 02/22/21 tiZANidine [Zanaflex] 4 mg PO TID PRN 02/26/18 02/22/21 Aspirin EC [Ecotrin Low Dose] 81 mg PO DAILY 01/02/20 02/22/21 carvediloL [Coreg*] 12.5 mg PO AC-BID 01/02/20 02/22/21 oxyCODONE-APAP 10-325MG [Percocet 1 tab PO Q8H PRN 01/02/20 02/22/21 10-325 mg] Prasugrel [Effient] 10 mg PO DAILY 08/06/20 02/22/21 lisinopriL 40 mg PO DAILY 08/06/20 02/22/21 Dicyclomine [Bentyl] 10 mg PO TID PRN 02/13/21 02/22/21 Pregabalin 100 mg PO BID 02/22/21 02/22/21 oxyCODONE HCL [Roxicodone] 15 mg PO TID PRN 02/22/21 02/22/21 Previous Rx's Medication Instructions Recorded Atorvastatin [Lipitor] 80 mg PO HS #30 tab 10/12/17 Ezetimibe [Zetia] 10 mg PO DAILY #30 tab 05/24/19 Nitroglycerin Sl Tabs [Nitrostat] 0.4 mg SUBLINGUAL Q5M PRN #20 tab 07/02/19 amLODIPine [Norvasc] 5 mg PO DAILY #60 tab 02/14/21 Dicyclomine [Bentyl] 10 mg PO TID PRN #15 capsule 03/04/21 Prochlorperazine [Compazine] 10 mg PO Q6H PRN #12 tab 03/04/21 Allergies Allergy/AdvReac Type Severity Reaction Status Date / Time ibuprofen [From Motrin] Allergy Rash/Hives Verified 03/04/21 08:27 ketorolac tromethamine Allergy Rash/Hives Verified 03/04/21 08:27 [From Toradol] Review of Systems ROS Statement: Those systems with pertinent positive or pertinent negative responses have been documented in the HPI. ROS Other: All systems not noted in ROS Statement are negative. Past Medical History Past Medical History: Coronary Artery Disease (CAD), Chest Pain / Angina, COPD, Deep Vein Thrombosis (DVT), GERD/Reflux, Hyperlipidemia, Hypertension, Osteoarthritis (OA), Thyroid Disorder Additional Past Medical History / Comment(s): Occasional palpitations, gastritis, small hiatal hernia, diverticular dx, pt states years ago he had PUD, chronic low back pain, chronic pain syndrome, migraines, DVT L arm, numbness/tingling bilateral lower legs, bilateral past R hand fracture, arthritis multiple joints, hyperthyroid, sinus problems. History of Any Multi-Drug Resistant Organisms: None Reported Past Surgical History: Back Surgery, Cholecystectomy, Heart Catheterization With Stent, Orthopedic Surgery Additional Past Surgical History / Comment(s): EGDs/colonoscopies, multiple low back surgeries, bilateral arm and bilateral thigh surgeries for brown recluse spider bites with infection, morphine pain pump insertion and removal due to infection, PCI with stents, L rotator cuff repair, L knee arthroscopy, cervical fusion/cage, R cataract removal. 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 He lived to be 82 yrs old. Mother History Unknown: Yes Family Medical History: Hypertension, Myocardial Infarction ([place]) Additional Family Medical History / Comment(s): Mother of a [place] at the age of 55yrs. Brother(s) Family Medical History: Cancer, COPD Additional Family Medical History / Comment(s): Leukemia General Exam Limitations: no limitations General appearance: alert, in no apparent distress Head exam: Present: atraumatic, normocephalic, normal inspection Eye exam: Present: normal appearance, PERRL, EOMI Pupils: Present: normal accommodation ENT exam: Present: normal exam, normal oropharynx, mucous membranes moist, TM's normal bilaterally, normal external ear exam Neck exam: Present: normal inspection, full ROM. Absent: tenderness Respiratory exam: Present: normal lung sounds bilaterally. Absent: respiratory distress, wheezes, rales, rhonchi, stridor, chest wall tenderness Cardiovascular Exam: Present: regular rate, normal rhythm, normal heart sounds GI/Abdominal exam: Present: soft, tenderness (Reducible ventral hernia), normal bowel sounds. Absent: distended, guarding, rebound, rigid Extremities exam: Present: normal inspection, full ROM, normal capillary refill. Absent: tenderness, pedal edema, joint swelling Back exam: Present: normal inspection, full ROM. Absent: tenderness, CVA tenderness (R), CVA tenderness (L) Neurological exam: Present: alert, oriented X3, normal gait Psychiatric exam: Present: normal affect, normal mood Skin exam: Present: warm, dry, intact, normal color Course Vital Signs 03/09/21 03/09/21 01:55 02:50 Temperature 97.5 F L Pulse Rate 94 90 Respiratory 18 18 Rate Blood Pressure 175/104 148/93 O2 Sat by Pulse 100 95 Oximetry EKG Findings - EKG Comments: EKG Findings:: Sinus rhythm with no ST or T-wave changes. Ventricular rate 85, para 166, QRS 90, QTc 428. Medical Decision Making - Medical Decision Making 65-year-old male presents to emergency department with a chief complaint of nausea vomiting. On physical examination, patient does appear to have a reducible ventral hernia. Patient did request Phenergan. I did consult with pharmacy who recommended Compazine instead because Phenergan is not available as IM. EKG shows sinus rhythm and no ST or T-wave changes. Patient was also requesting Dilaudid for pain. Patient is well-known to the emergency department for his frequent visits. Patient was offered laboratory workup, however he reports difficulty obtaining IV access. States he would prefer no IV access and would like intramuscular medication administration only. On reevaluation, patient reports improvement in symptoms and would like to be discharged. Case discussed with . Disposition Clinical Impression: Nausea & vomiting Disposition: HOME SELF-CARE Condition: Stable Instructions (If sedation given, give patient instructions): Acute Nausea and Vomiting (ED) Additional Instructions: Please return to the Emergency Department if symptoms worsen or any other concerns. Is patient prescribed a controlled substance at d/c from ED?: No Referrals: None,Stated [Primary Care Provider] - 1-2 days Time of Disposition: 02:28
[2021-03-09] MEDS ORDERED: PROCHLORPERAZINE INJ 10 MG/2 ML VIAL IM STA (02:19)
[2021-03-09] MEDS ORDERED: HYDROmorphone 1 MG/ML 1 ML SYRINGE IM STA (02:19)
[2021-03-09 02:51] VITALS: BP 148/93; PULSE 90
== END 2021-03-09 02:51 | disposition home or self-care (01) ==
LOC: EC 01:49
DX: K43.9 Ventral hernia without obstruction or gangrene (principal); R07.89 Other chest pain; R19.7 Diarrhea, unspecified; E78.5 Hyperlipidemia, unspecified; I25.10 Atherosclerotic heart disease of native coronary artery without angina pectoris; J44.9 Chronic obstructive pulmonary disease, unspecified; K21.9 Gastro-esophageal reflux disease without esophagitis; I10 Essential (primary) hypertension; G43.909 Migraine, unspecified, not intractable, without status migrainosus; M19.90 Unspecified osteoarthritis, unspecified site; G89.4 Chronic pain syndrome; Z86.718 Personal history of other venous thrombosis and embolism; Z87.11 Personal history of peptic ulcer disease; Z87.19 Personal history of other diseases of the digestive system; Z79.82 Long term (current) use of aspirin
CPT/HCPCS: 93005; 99284; 96372 ×2; J0780; J1170

== ENCOUNTER 2021-03-31 03:41 | Emergency (ER) | payer MEDICARE, OTHER ==
[2021-03-31 03:46] VITALS: TEMP 98.3
[2021-03-31] MEDS ORDERED: SODIUM CHLORIDE 0.9% 1,000 ML IV STA ×2 (04:12)
[2021-03-31] MEDS ORDERED: diphenhydrAMINE 50 MG/ML 1 ML VIAL IVP STA (04:13)
[2021-03-31] MEDS ORDERED: diphenhydrAMINE 50 MG/ML 1 ML VIAL IVP PRN (04:13)
[2021-03-31] MEDS ORDERED: HYDROmorphone 1 MG/ML 1 ML SYRINGE IVP PRN (04:13)
[2021-03-31] MEDS ORDERED: HYDROmorphone 1 MG/ML 1 ML SYRINGE IVP STA ×2 (04:13→05:38)
--- NOTE | 2021-03-31 04:13 | ED ---
Chest Pain HPI - General Chief Complaint: Chest Pain Stated Complaint: Chest Pain Time Seen by Provider: 03/31/21 03:45 Source: patient, RN notes reviewed, old records reviewed Mode of arrival: wheelchair Limitations: no limitations - History of Present Illness Initial Comments: This is a 65-year-old male DF for evaluation. Patient does have history of heart disease and stents as well as multiple ER visits for different pain issues. Patient coming in for some chest pain today. He did have a hospital admission month and a half ago. Patient denying fever shortness of breath cough congestion or swelling MD Complaint: chest pain -: days(s) Onset: during rest, during exertion Pain Location: substernal Pain Radiation: LUE Severity: moderate Severity scale (1-10): 7 Quality: tightness Consistency: constant Worsens With: nothing Context: recent illness Anginal Symptoms: nausea Other Symptoms: cough Treatments Prior to Arrival: none - Related Data Home Medications Medication Instructions Recorded Confirmed Fluticasone Nasal [place] [Flonase 1 spray EA NOSTRIL BID 04/20/17 02/22/21 Nasal [place]] Morphine Sulfate ER [Ms Contin] 30 mg PO Q8H 10/10/17 02/22/21 tiZANidine [Zanaflex] 4 mg PO TID PRN 02/26/18 02/22/21 Aspirin EC [Ecotrin Low Dose] 81 mg PO DAILY 01/02/20 02/22/21 carvediloL [Coreg*] 12.5 mg PO AC-BID 01/02/20 02/22/21 oxyCODONE-APAP 10-325MG [Percocet 1 tab PO Q8H PRN 01/02/20 02/22/21 10-325 mg] Prasugrel [Effient] 10 mg PO DAILY 08/06/20 02/22/21 lisinopriL 40 mg PO DAILY 08/06/20 02/22/21 Dicyclomine [Bentyl] 10 mg PO TID PRN 02/13/21 02/22/21 Pregabalin 100 mg PO BID 02/22/21 02/22/21 oxyCODONE HCL [Roxicodone] 15 mg PO TID PRN 02/22/21 02/22/21 Previous Rx's Medication Instructions Recorded Atorvastatin [Lipitor] 80 mg PO HS #30 tab 11/20/17 Ezetimibe [Zetia] 10 mg PO DAILY #30 tab 05/24/19 Nitroglycerin Sl Tabs [Nitrostat] 0.4 mg SUBLINGUAL Q5M PRN #20 tab 07/02/19 amLODIPine [Norvasc] 5 mg PO DAILY #60 tab 02/14/21 Dicyclomine [Bentyl] 10 mg PO TID PRN #15 capsule 03/04/21 Prochlorperazine [Compazine] 10 mg PO Q6H PRN #12 tab 03/04/21 Allergies Allergy/AdvReac Type Severity Reaction Status Date / Time ibuprofen [From Motrin] Allergy Rash/Hives Verified 03/31/21 03:46 ketorolac tromethamine Allergy Rash/Hives Verified 03/31/21 03:46 [From Toradol] Review of Systems ROS Statement: Those systems with pertinent positive or pertinent negative responses have been documented in the HPI. ROS Other: All systems not noted in ROS Statement are negative. EKG Findings - EKG Comments: EKG Findings:: EKG shows sinus rhythm 87, CA 132 QRS 92 QTC 459 Past Medical History Past Medical History: Coronary Artery Disease (CAD), Chest Pain / Angina, COPD, Deep Vein Thrombosis (DVT), GERD/Reflux, Hyperlipidemia, Hypertension, Osteoarthritis (OA), Thyroid Disorder Additional Past Medical History / Comment(s): Occasional palpitations, gastritis, small hiatal hernia, diverticular dx, pt states years ago he had PUD, chronic low back pain, chronic pain syndrome, migraines, DVT L arm, numbness/tingling bilateral lower legs, bilateral past R hand fracture, arthritis multiple joints, hyperthyroid, sinus problems. History of Any Multi-Drug Resistant Organisms: None Reported Past Surgical History: Back Surgery, Cholecystectomy, Heart Catheterization With Stent, Orthopedic Surgery Additional Past Surgical History / Comment(s): EGDs/colonoscopies, multiple low back surgeries, bilateral arm and bilateral thigh surgeries for brown recluse spider bites with infection, morphine pain pump insertion and removal due to infection, PCI with stents, L rotator cuff repair, L knee arthroscopy, cervical fusion/cage, R cataract removal. 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 He lived to be 82 yrs old. Mother History Unknown: Yes Family Medical History: Hypertension, Myocardial Infarction ([place]) Additional Family Medical History / Comment(s): Mother of a [place] at the age of 55yrs. Brother(s) Family Medical History: Cancer, COPD Additional Family Medical History / Comment(s): Leukemia General Exam Limitations: no limitations General appearance: alert, in no apparent distress Head exam: Present: atraumatic, normocephalic, normal inspection Eye exam: Present: normal appearance, PERRL, EOMI. Absent: scleral icterus, conjunctival injection, periorbital swelling ENT exam: Present: normal exam, mucous membranes moist Neck exam: Present: normal inspection. Absent: tenderness, meningismus, lymphadenopathy Respiratory exam: Present: normal lung sounds bilaterally. Absent: respiratory distress, wheezes, rales, rhonchi, stridor Cardiovascular Exam: Present: regular rate, normal rhythm, normal heart sounds. Absent: systolic murmur, diastolic murmur, rubs, gallop, clicks GI/Abdominal exam: Present: soft, normal bowel sounds. Absent: distended, tenderness, guarding, rebound, rigid Extremities exam: Present: normal inspection, full ROM, normal capillary refill. Absent: tenderness, pedal edema, joint swelling, calf tenderness Back exam: Present: normal inspection Neurological exam: Present: alert, oriented X3, CN II-XII intact Psychiatric exam: Present: normal affect, normal mood Skin exam: Present: warm, dry, intact, normal color. Absent: rash Course Vital Signs 03/31/21 03:42 Temperature 98.3 F Pulse Rate 102 H Respiratory 22 Rate Blood Pressure 141/89 O2 Sat by Pulse 100 Oximetry - Reevaluation(s) Reevaluation #1: 03/31/21 06:37 Medical record is reviewed Reevaluation #2: 03/31/21 06:37 Prior cath report is reviewed Reevaluation #3: 03/31/21 06:37 Patient's chest pain is improved here in the ER Chest Pain MDM - MDM 65 male well-known to this emergency department. Patient coming in for chest pain just like his chronic angina type pain. No significant swelling feels well otherwise no shortness of breath or sweating. Patient does feel better here in the ER and can be discharged home Disposition Clinical Impression: Chest pain Disposition: HOME SELF-CARE Condition: Good Instructions (If sedation given, give patient instructions): Chest Pain (ED) Is patient prescribed a controlled substance at d/c from ED?: No Referrals: None,Stated [Primary Care Provider] - 1-2 days
[2021-03-31 05:05] LABS: Basophils % (A) 0 %; Eosinophils # (A) 0.1 k/uL (0-0.7); Eosinophils % (A) 1 %; HCT 45.7 % (39.0-53.0); HGB 14.5 gm/dL (13.0-17.5); Lymphocytes # (A) 1.6 k/uL (1.0-4.8); Lymphocytes % (A) 34 %; MCH 28.8 pg (25.0-35.0); MCHC 31.7 g/dL (31.0-37.0); MCV 90.8 fL (80.0-100.0); Mean Platelet Volume 6.9; Monocytes # (A) 0.3 k/uL (0-1.0); Monocytes % (A) 6 %; Neutrophils # (A) 2.7 k/uL (1.3-7.7); Neutrophils % (A) 57 %; Platelet Count 377 k/uL (150-450); RBC 5.03 m/uL (4.30-5.90); RDW 14.7 % (11.5-15.5); WBC 4.8 k/uL (3.8-10.6)
--- NOTE | 2021-03-31 05:28 | XR ---
EXAM: XR Chest, 2 Views CLINICAL HISTORY: ITS.REASON XR Reason: Chest Pain TECHNIQUE: Frontal and lateral views of the chest. COMPARISON: CXR February 22, 2021. FINDINGS/IMPRESSION: No focal infiltrate, pleural effusion, or pneumothorax. Mild cardiomegaly. Tortuous aorta. ACDF.
[2021-03-31 05:41] LABS: INR 1.1 (<1.2); Prothrombin Time 11.3 sec (9.0-12.0)
[2021-03-31] MEDS ORDERED: ACET/COD 300 MG/30 MG STARTER PACK 6 TAB BTL PO STA (05:41)
[2021-03-31 06:51] VITALS: BP 154/110; PULSE 89; RESP 16
== END 2021-03-31 06:50 | disposition home or self-care (01) ==
LOC: EC 03:41
DX: R07.89 Other chest pain (principal); E78.5 Hyperlipidemia, unspecified; I10 Essential (primary) hypertension; I25.10 Atherosclerotic heart disease of native coronary artery without angina pectoris; J44.9 Chronic obstructive pulmonary disease, unspecified; M19.90 Unspecified osteoarthritis, unspecified site; E07.9 Disorder of thyroid, unspecified; K21.9 Gastro-esophageal reflux disease without esophagitis; Z79.82 Long term (current) use of aspirin; Z86.718 Personal history of other venous thrombosis and embolism; Z87.11 Personal history of peptic ulcer disease; Z87.891 Personal history of nicotine dependence; Z95.5 Presence of coronary angioplasty implant and graft; Z90.49 Acquired absence of other specified parts of digestive tract
CPT/HCPCS: 36415; 93005; 83880; 85025; 85610; 85730; 87635; 71046; 99285; 96361 ×2; 96374; 96375; 96376; J1200; J1170

== ENCOUNTER 2021-04-03 08:29 | Emergency (ER) | payer MEDICARE, OTHER ==
[2021-04-03 08:31] VITALS: RESP 18
--- NOTE | 2021-04-03 08:52 | ED ---
General Adult HPI - General Chief complaint: Headache Stated complaint: migraine Time Seen by Provider: 04/03/21 08:34 Source: patient, RN notes reviewed Mode of arrival: ambulatory Limitations: no limitations - History of Present Illness Initial comments: Patient is a pleasant 65-year-old male presenting to the emergency department with complaints of headache. Patient states he has chronic migraines, frequently. Patient has been evaluated for this multiple times and had previous scans on his brain. Patient states symptoms are exactly same as his previous headache. Onset was a few hours ago. Discomfort is frontal. Patient does have some photophobia. Patient did take his blood pressure medicine however states that his blood pressure always runs high like this, Julianne with headaches. No weakness or confusion. Patient requests a shot of Dilaudid and a starter pack to go. - Related Data Home Medications Medication Instructions Recorded Confirmed Fluticasone Nasal [place] [Flonase 1 spray EA NOSTRIL BID 04/20/17 02/22/21 Nasal [place]] Morphine Sulfate ER [Ms Contin] 30 mg PO Q8H 10/10/17 02/22/21 tiZANidine [Zanaflex] 4 mg PO TID PRN 02/26/18 02/22/21 Aspirin EC [Ecotrin Low Dose] 81 mg PO DAILY 01/02/20 02/22/21 carvediloL [Coreg*] 12.5 mg PO AC-BID 01/02/20 02/22/21 oxyCODONE-APAP 10-325MG [Percocet 1 tab PO Q8H PRN 01/02/20 02/22/21 10-325 mg] Prasugrel [Effient] 10 mg PO DAILY 08/06/20 02/22/21 lisinopriL 40 mg PO DAILY 08/06/20 02/22/21 Dicyclomine [Bentyl] 10 mg PO TID PRN 02/13/21 02/22/21 Pregabalin 100 mg PO BID 02/22/21 02/22/21 oxyCODONE HCL [Roxicodone] 15 mg PO TID PRN 02/22/21 02/22/21 Previous Rx's Medication Instructions Recorded Atorvastatin [Lipitor] 80 mg PO HS #30 tab 10/12/17 Ezetimibe [Zetia] 10 mg PO DAILY #30 tab 05/24/19 Nitroglycerin Sl Tabs [Nitrostat] 0.4 mg SUBLINGUAL Q5M PRN #20 tab 07/02/19 amLODIPine [Norvasc] 5 mg PO DAILY #60 tab 02/14/21 Dicyclomine [Bentyl] 10 mg PO TID PRN #15 capsule 03/04/21 Prochlorperazine [Compazine] 10 mg PO Q6H PRN #12 tab 03/04/21 Allergies Allergy/AdvReac Type Severity Reaction Status Date / Time ibuprofen [From Motrin] Allergy Rash/Hives Verified 04/03/21 08:32 ketorolac tromethamine Allergy Rash/Hives Verified 04/03/21 08:32 [From Toradol] Review of Systems ROS Statement: Those systems with pertinent positive or pertinent negative responses have been documented in the HPI. ROS Other: All systems not noted in ROS Statement are negative. Constitutional: Denies: fever Eyes: Denies: eye pain ENT: Denies: ear pain Respiratory: Denies: cough Cardiovascular: Denies: chest pain Endocrine: Denies: fatigue Gastrointestinal: Reports: nausea. Denies: abdominal pain Genitourinary: Denies: dysuria Musculoskeletal: Denies: back pain Skin: Denies: rash Neurological: Reports: as per HPI, headache. Denies: weakness, confusion Past Medical History Past Medical History: Coronary Artery Disease (CAD), Chest Pain / Angina, COPD, Deep Vein Thrombosis (DVT), GERD/Reflux, Hyperlipidemia, Hypertension, Osteoarthritis (OA), Thyroid Disorder Additional Past Medical History / Comment(s): Occasional palpitations, gastritis, small hiatal hernia, diverticular dx, pt states years ago he had PUD, chronic low back pain, chronic pain syndrome, migraines, DVT L arm, numbness/tingling bilateral lower legs, bilateral past R hand fracture, arthritis multiple joints, hyperthyroid, sinus problems. History of Any Multi-Drug Resistant Organisms: None Reported Past Surgical History: Back Surgery, Cholecystectomy, Heart Catheterization With Stent, Orthopedic Surgery Additional Past Surgical History / Comment(s): EGDs/colonoscopies, multiple low back surgeries, bilateral arm and bilateral thigh surgeries for brown recluse sp ider bites with infection, morphine pain pump insertion and removal due to infection, PCI with stents, L rotator cuff repair, L knee arthroscopy, cervical fusion/cage, R cataract removal. 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 He lived to be 82 yrs old. Mother History Unknown: Yes Family Medical History: Hypertension, Myocardial Infarction ([place]) Additional Family Medical History / Comment(s): Mother of a [place] at the age of 55yrs. Brother(s) Family Medical History: Cancer, COPD Additional Family Medical History / Comment(s): Leukemia General Exam Limitations: no limitations General appearance: alert, in no apparent distress Head exam: Present: atraumatic Eye exam: Present: normal appearance, PERRL, EOMI. Absent: nystagmus ENT exam: Present: normal oropharynx Neck exam: Present: normal inspection Respiratory exam: Present: normal lung sounds bilaterally Cardiovascular Exam: Present: regular rate, normal rhythm GI/Abdominal exam: Present: soft. Absent: tenderness Extremities exam: Present: normal inspection Neurological exam: Present: alert, CN II-XII intact. Absent: motor sensory deficit Expanded Neurological exam: Present: protecting the airway Speech: Present: fluid speech Cranial nerves: EOM's Intact: Normal Motor strength exam: RUE: 5, LUE: 5, RLE: 5, LLE: 5 Eye Response: (4) open spontaneously Motor Response: (6) obeys commands Verbal Response: (5) oriented Psychiatric exam: Present: normal affect, normal mood Skin exam: Present: normal color Course Vital Signs 04/03/21 04/03/21 08:30 08:51 Temperature 97.4 F L Pulse Rate 84 Respiratory 18 Rate Blood Pressure 185/108 180/99 O2 Sat by Pulse 97 Oximetry Disposition Clinical Impression: Chronic headache Disposition: HOME SELF-CARE Condition: Stable Instructions (If sedation given, give patient instructions): General Headache (ED), Chronic Pain (ED) Additional Instructions: Please do follow-up to primary care physician in the next day or 2 for recheck. Return for uncontrolled blood pressure, weakness or confusion or fevers, worsening or changing symptoms or other concerns. Please have your primary care physician recheck blood pressure. Is patient prescribed a controlled substance at d/c from ED?: No Referrals: Brian Mina [STAFF PHYSICIAN] - 1-2 days Time of Disposition: 08:59
[2021-04-03] MEDS ORDERED: HYDROmorphone 0.5 MG/0.5 ML SYRINGE IM STA (08:56)
[2021-04-03] MEDS ORDERED: METOCLOPRAMIDE 5 MG/ML 2 ML VIAL IM STA (08:56)
[2021-04-03 09:15] VITALS: BP 154/94; PULSE 87; TEMP 98
== END 2021-04-03 09:14 | disposition home or self-care (01) ==
LOC: EC 08:29
DX: G43.909 Migraine, unspecified, not intractable, without status migrainosus (principal); I25.10 Atherosclerotic heart disease of native coronary artery without angina pectoris; J44.9 Chronic obstructive pulmonary disease, unspecified; E78.5 Hyperlipidemia, unspecified; I10 Essential (primary) hypertension; M19.90 Unspecified osteoarthritis, unspecified site; K21.9 Gastro-esophageal reflux disease without esophagitis; Z86.718 Personal history of other venous thrombosis and embolism; Z90.49 Acquired absence of other specified parts of digestive tract; Z95.5 Presence of coronary angioplasty implant and graft; Z87.891 Personal history of nicotine dependence
CPT/HCPCS: 99284; 96372 ×2; J2765; J1170

== ENCOUNTER 2021-04-06 20:51 | Emergency (ER) | payer MEDICARE, OTHER ==
[2021-04-06 21:05] VITALS: RESP 18; TEMP 98.1
[2021-04-06] MEDS ORDERED: HYDROmorphone 1 MG/ML 1 ML SYRINGE IM STA (21:23)
[2021-04-06] MEDS ORDERED: ONDANSETRON ODT 4 MG TAB PO STA (21:24)
[2021-04-06] MEDS ORDERED: HYDROmorphone 0.5 MG/0.5 ML SYRINGE IM STA ×2 (22:09→23:37)
--- NOTE | 2021-04-06 22:26 | ED ---
Headache HPI - General Chief Complaint: Headache Stated Complaint: Headache Time Seen by Provider: 04/06/21 21:19 Mode of arrival: ambulatory Limitations: no limitations - History of Present Illness Initial Comments: 65-year-old male well known to the emergency department who presents for headache. Patient states he has chronic headaches he states he's been stressed with his in the hospital today and has a migraine he states he gets sensitive to light and has some nausea associated with it. He denies any weakness sensation deficits vision loss he denies any vomiting neck stiffness or fevers. Patient states it feels like his typical headaches but his pain medications at home arent working pt denies additional complaints. - Related Data Home Medications Medication Instructions Recorded Confirmed Fluticasone Nasal [place] [Flonase 1 spray EA NOSTRIL BID 04/20/17 02/22/21 Nasal [place]] Morphine Sulfate ER [Ms Contin] 30 mg PO Q8H 10/10/17 02/22/21 tiZANidine [Zanaflex] 4 mg PO TID PRN 02/26/18 02/22/21 Aspirin EC [Ecotrin Low Dose] 81 mg PO DAILY 01/02/20 02/22/21 carvediloL [Coreg*] 12.5 mg PO AC-BID 01/02/20 02/22/21 oxyCODONE-APAP 10-325MG [Percocet 1 tab PO Q8H PRN 01/02/20 02/22/21 10-325 mg] Prasugrel [Effient] 10 mg PO DAILY 08/06/20 02/22/21 lisinopriL 40 mg PO DAILY 08/06/20 02/22/21 Dicyclomine [Bentyl] 10 mg PO TID PRN 02/13/21 02/22/21 Pregabalin 100 mg PO BID 02/22/21 02/22/21 oxyCODONE HCL [Roxicodone] 15 mg PO TID PRN 02/22/21 02/22/21 Previous Rx's Medication Instructions Recorded Atorvastatin [Lipitor] 80 mg PO HS #30 tab 10/12/17 Ezetimibe [Zetia] 10 mg PO DAILY #30 tab 05/24/19 Nitroglycerin Sl Tabs [Nitrostat] 0.4 mg SUBLINGUAL Q5M PRN #20 tab 07/02/19 amLODIPine [Norvasc] 5 mg PO DAILY #60 tab 02/14/21 Dicyclomine [Bentyl] 10 mg PO TID PRN #15 capsule 03/04/21 Prochlorperazine [Compazine] 10 mg PO Q6H PRN #12 tab 03/04/21 Allergies Allergy/AdvReac Type Severity Reaction Status Date / Time ibuprofen [From Motrin] Allergy Rash/Hives Verified 04/06/21 21:02 ketorolac tromethamine Allergy Rash/Hives Verified 04/06/21 21:02 [From Toradol] Review of Systems ROS Statement: Those systems with pertinent positive or pertinent negative responses have been documented in the HPI. ROS Other: All systems not noted in ROS Statement are negative. Past Medical History Past Medical History: Coronary Artery Disease (CAD), Chest Pain / Angina, COPD, Deep Vein Thrombosis (DVT), GERD/Reflux, Hyperlipidemia, Hypertension, Osteoarthritis (OA), Thyroid Disorder Additional Past Medical History / Comment(s): Occasional palpitations, gastritis, small hiatal hernia, diverticular dx, pt states years ago he had PUD, chronic low back pain, chronic pain syndrome, migraines, DVT L arm, numbness/tingling bilateral lower legs, bilateral past R hand fracture, arthritis multiple joints, hyperthyroid, sinus problems. History of Any Multi-Drug Resistant Organisms: None Reported Past Surgical History: Back Surgery, Cholecystectomy, Heart Catheterization With Stent, Orthopedic Surgery Additional Past Surgical History / Comment(s): EGDs/colonoscopies, multiple low back surgeries, bilateral arm and bilateral thigh surgeries for brown recluse spider bites with infection, morphine pain pump insertion and removal due to infection, PCI with stents, L rotator cuff repair, L knee arthroscopy, cervical fusion/cage, R cataract removal. 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 He lived to be 82 yrs old. Mother History Unknown: Yes Family Medical History: Hypertension, Myocardial Infarction ([place]) Additional Family Medical History / Comment(s): Mother of a [place] at the age of 55yrs. Brother(s) Family Medical History: Cancer, COPD Additional Family Medical History / Comment(s): Leukemia General Exam - General Exam Comments Initial Comments: General: The patient is awake and alert, in no distress, and does not appear acutely ill. Eye: +3 mm pupils are equal, round and reactive to light, extra-ocular movements are intact. No nystagmus. There is normal conjunctiva bilaterally. No signs of icterus. Ears, nose, mouth and throat: There are moist mucous membranes and no oral lesions. Neck: The neck is supple, there is no tenderness or JVD. Cardiovascular: There is a regular rate and rhythm. No murmur, rub or gallop is appreciated. Respiratory: Lungs are clear to auscultation, respirations are non-labored, breath sounds are equal. No wheezes, stridor, rales, or rhonchi. Gastrointestinal: Soft, non-distended, non-tender abdomen without masses or organomegaly noted. There is no rebound or guarding present. Musculoskeletal: Normal ROM, no tenderness. Strength 5/5. Sensation intact. Pulses equal bilaterally 2+. Neurological: A&O x 3. CN II-XII intact, There are no obvious motor or sensory deficits. Coordination appears grossly intact. Speech is normal. Skin: Skin is warm and dry and no rashes or lesions are noted. Psychiatric: Cooperative, appropriate mood & affect, normal judgment. Limitations: no limitations Course Vital Signs 04/06/21 04/06/21 04/06/21 21:02 21:38 22:09 Temperature 98.1 F Pulse Rate 97 80 85 Respiratory 18 18 18 Rate Blood Pressure 188/115 153/117 175/116 O2 Sat by Pulse 97 100 100 Oximetry 04/06/21 04/06/21 04/07/21 22:53 23:51 00:15 Temperature 98.1 F Pulse Rate 82 81 81 Respiratory 18 18 18 Rate Blood Pressure 169/116 157/120 139/96 O2 Sat by Pulse 98 98 99 Oximetry Medical Decision Making - Medical Decision Making 65yo presenting for headaches, frequently visits for this complaints. states similar to previous but was here with his . treated symptomatically. BP treated. pt discharged appearing well, without focal neurological deficits. pt denied this being worst [place] of life, or sudden onset. Disposition Clinical Impression: Elevated blood pressure reading, Headache Disposition: HOME SELF-CARE Condition: Good Instructions (If sedation given, give patient instructions): Acute Headache (ED) Additional Instructions: Please use medication as discussed. Please follow-up with family doctor in the next 2 days. Please return to emergency room if the symptoms increase or worsen or for any other concerns. Is patient prescribed a controlled substance at d/c from ED?: No Referrals: None,Stated [Primary Care Provider] - 1-2 days Time of Disposition: 00:16
[2021-04-06] MEDS ORDERED: cloNIDine HCL 0.2 MG TAB PO STA (23:03)
[2021-04-06] MEDS ORDERED: amLODIPine 5 MG TAB PO STA (23:37)
[2021-04-06] MEDS ORDERED: LORazepam 1 MG TAB PO STA (23:43)
[2021-04-06 23:55] VITALS: PULSE 81
[2021-04-07 00:17] VITALS: BP 139/96
== END 2021-04-07 00:23 | disposition home or self-care (01) ==
LOC: EC 20:51
DX: G43.909 Migraine, unspecified, not intractable, without status migrainosus (principal); I10 Essential (primary) hypertension; I25.10 Atherosclerotic heart disease of native coronary artery without angina pectoris; J44.9 Chronic obstructive pulmonary disease, unspecified; E78.5 Hyperlipidemia, unspecified; K21.9 Gastro-esophageal reflux disease without esophagitis; M19.90 Unspecified osteoarthritis, unspecified site; G89.4 Chronic pain syndrome; Z86.718 Personal history of other venous thrombosis and embolism; Z87.11 Personal history of peptic ulcer disease; Z87.19 Personal history of other diseases of the digestive system; Z87.891 Personal history of nicotine dependence; Z79.82 Long term (current) use of aspirin; Z88.6 Allergy status to analgesic agent
CPT/HCPCS: 99283; 96372 ×3; J1170 ×2

== ENCOUNTER 2021-04-21 04:44 | Emergency (ER) | payer MEDICARE, OTHER ==
--- NOTE | 2021-04-21 04:53 | ED ---
Chest Pain HPI - General Chief Complaint: Chest Pain Stated Complaint: Chest Pain Time Seen by Provider: 04/21/21 04:53 Source: patient, EMS Mode of arrival: EMS - Related Data Home Medications Medication Instructions Recorded Confirmed Fluticasone Nasal [place] [Flonase 1 spray EA NOSTRIL BID 04/20/17 02/22/21 Nasal [place]] Morphine Sulfate ER [Ms Contin] 30 mg PO Q8H 10/10/17 02/22/21 tiZANidine [Zanaflex] 4 mg PO TID PRN 02/26/18 02/22/21 Aspirin EC [Ecotrin Low Dose] 81 mg PO DAILY 01/02/20 02/22/21 carvediloL [Coreg*] 12.5 mg PO AC-BID 01/02/20 02/22/21 oxyCODONE-APAP 10-325MG [Percocet 1 tab PO Q8H PRN 01/02/20 02/22/21 10-325 mg] Prasugrel [Effient] 10 mg PO DAILY 08/06/20 02/22/21 lisinopriL 40 mg PO DAILY 08/06/20 02/22/21 Dicyclomine [Bentyl] 10 mg PO TID PRN 02/13/21 02/22/21 Pregabalin 100 mg PO BID 02/22/21 02/22/21 oxyCODONE HCL [Roxicodone] 15 mg PO TID PRN 02/22/21 02/22/21 Previous Rx's Medication Instructions Recorded Atorvastatin [Lipitor] 80 mg PO HS #30 tab 10/12/17 Ezetimibe [Zetia] 10 mg PO DAILY #30 tab 05/24/19 Nitroglycerin Sl Tabs [Nitrostat] 0.4 mg SUBLINGUAL Q5M PRN #20 tab 07/02/19 amLODIPine [Norvasc] 5 mg PO DAILY #60 tab 02/14/21 Dicyclomine [Bentyl] 10 mg PO TID PRN #15 capsule 03/04/21 Prochlorperazine [Compazine] 10 mg PO Q6H PRN #12 tab 03/04/21 Allergies Allergy/AdvReac Type Severity Reaction Status Date / Time ibuprofen [From Motrin] Allergy Rash/Hives Verified 04/21/21 04:51 ketorolac tromethamine Allergy Rash/Hives Verified 04/21/21 04:51 [From Toradol] Review of Systems ROS Statement: Those systems with pertinent positive or pertinent negative responses have been documented in the HPI. ROS Other: All systems not noted in ROS Statement are negative. EKG Findings - EKG Comments: EKG Findings:: EKG is sinus rhythm 79, [place] 156 QRS 86 QTc 421 Past Medical History Past Medical History: Coronary Artery Disease (CAD), Chest Pain / Angina, COPD, Deep Vein Thrombosis (DVT), GERD/Reflux, Hyperlipidemia, Hypertension, Osteoarthritis (OA), Thyroid Disorder Additional Past Medical History / Comment(s): Occasional palpitations, gastritis, small hiatal hernia, diverticular dx, pt states years ago he had PUD, chronic low back pain, chronic pain syndrome, migraines, DVT L arm, numbness/tingling bilateral lower legs, bilateral past R hand fracture, arthritis multiple joints, hyperthyroid, sinus problems. History of Any Multi-Drug Resistant Organisms: None Reported Past Surgical History: Back Surgery, Cholecystectomy, Heart Catheterization With Stent, Orthopedic Surgery Additional Past Surgical History / Comment(s): EGDs/colonoscopies, multiple low back surgeries, bilateral arm and bilateral thigh surgeries for brown recluse spider bites with infection, morphine pain pump insertion and removal due to infection, PCI with stents, L rotator cuff repair, L knee arthroscopy, cervical fusion/cage, R cataract removal. 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 He lived to be 82 yrs old. Mother History Unknown: Yes Family Medical History: Hypertension, Myocardial Infarction ([place]) Additional Family Medical History / Comment(s): Mother of a [place] at the age of 55yrs. Brother(s) Family Medical History: Cancer, COPD Additional Family Medical History / Comment(s): Leukemia Course Vital Signs 04/21/21 05:30 Pulse Rate 74 Respiratory 18 Rate Blood Pressure 166/100 Disposition Clinical Impression: Chest pain Disposition: HOME SELF-CARE Condition: Good Instructions (If sedation given, give patient instructions): Chest Pain (ED) Is patient prescribed a controlled substance at d/c from ED?: No Referrals: None,Stated [Primary Care Provider] - 1-2 days
[2021-04-21] MEDS ORDERED: HYDROmorphone 1 MG/ML 1 ML SYRINGE IM STA (05:28)
[2021-04-21 05:31] VITALS: RESP 18
[2021-04-21] MEDS ORDERED: HYDROmorphone 2 MG TAB PO STA (06:37)
[2021-04-21 06:50] VITALS: BP 169/106; PULSE 80
[2021-04-21] MEDS ORDERED: cloNIDine 0.3 MG/24HR PATCH TRANSDERM SCH (07:00)
--- NOTE | 2021-04-21 07:36 | XR ---
EXAM: XR Chest, 2 Views CLINICAL HISTORY: cp TECHNIQUE: Frontal and lateral views of the chest. COMPARISON: 03/31/2021 FINDINGS: Lungs: Mild right basilar atelectasis and/or infiltrates. Pleural space: Unremarkable. No pneumothorax. Heart: Unremarkable. No cardiomegaly. Mediastinum: Unremarkable. Bones/joints: Unremarkable. IMPRESSION: Mild right basilar atelectasis and/or infiltrates.
== END 2021-04-21 07:06 | disposition home or self-care (01) ==
LOC: EC 04:44
DX: R07.9 Chest pain, unspecified (principal); I25.10 Atherosclerotic heart disease of native coronary artery without angina pectoris; J44.9 Chronic obstructive pulmonary disease, unspecified; I10 Essential (primary) hypertension; I82.622 Acute embolism and thrombosis of deep veins of left upper extremity; M19.90 Unspecified osteoarthritis, unspecified site; E78.5 Hyperlipidemia, unspecified; K21.9 Gastro-esophageal reflux disease without esophagitis; Z87.891 Personal history of nicotine dependence; Z79.899 Other long term (current) drug therapy
CPT/HCPCS: 93005; 71046; 99285; 96372; J1170

== ENCOUNTER 2021-05-04 16:35 | Observation (INO) | payer MEDICARE, OTHER ==
[2021-05-04] MEDS ORDERED: ONDANSETRON 4 MG/2 ML VIAL IVP STA (17:13)
[2021-05-04] MEDS ORDERED: NITROGLYCERIN OINT 1 INCH/GM PACKET TOPICAL STA (17:13)
[2021-05-04] MEDS ORDERED: HYDROmorphone 1 MG/ML 1 ML SYRINGE IVP STA (17:13)
--- NOTE | 2021-05-04 17:24 | ED ---
Chest Pain HPI - General Chief Complaint: Chest Pain Stated Complaint: Chest Pain Time Seen by Provider: 05/04/21 16:40 Source: patient, RN notes reviewed, old records reviewed Mode of arrival: wheelchair Limitations: no limitations - History of Present Illness Initial Comments: This is a 65-year-old male history of cardiac disease with 3 stents who states he had the onset around 12:30 today of retrosternal sharp chest pain with radiation to his jaw and neck as well as left arm. He took 3 nitroglycerin with minimal relief. He states was 7/10 severity on his arrival here. He is feeling nauseated. No overt shortness of breath. No other modifying factors at this time MD Complaint: chest pain - Related Data Home Medications Medication Instructions Recorded Confirmed Fluticasone Nasal [place] [Flonase 1 spray EA NOSTRIL BID 04/20/17 05/04/21 Nasal [place]] Morphine Sulfate ER [Ms Contin] 30 mg PO Q8H 10/10/17 05/04/21 tiZANidine [Zanaflex] 4 mg PO TID PRN 02/26/18 05/04/21 Aspirin EC [Ecotrin Low Dose] 81 mg PO DAILY 01/02/20 05/04/21 carvediloL [Coreg*] 12.5 mg PO AC-BID 01/02/20 05/04/21 oxyCODONE-APAP 10-325MG [Percocet 1 tab PO Q8H PRN 01/02/20 05/04/21 10-325 mg] Prasugrel [Effient] 10 mg PO DAILY 08/06/20 05/04/21 lisinopriL 40 mg PO DAILY 08/06/20 05/04/21 Dicyclomine [Bentyl] 10 mg PO TID PRN 02/13/21 05/04/21 Pregabalin 100 mg PO BID 02/22/21 05/04/21 amLODIPine [Norvasc] 5 mg PO BID 05/04/21 05/04/21 Previous Rx's Medication Instructions Recorded Atorvastatin [Lipitor] 80 mg PO HS #30 tab 10/12/17 Ezetimibe [Zetia] 10 mg PO DAILY #30 tab 05/24/19 Nitroglycerin Sl Tabs [Nitrostat] 0.4 mg SUBLINGUAL Q5M PRN #20 tab 08/10/19 Prochlorperazine [Compazine] 10 mg PO Q6H PRN #12 tab 03/04/21 Allergies Allergy/AdvReac Type Severity Reaction Status Date / Time ibuprofen [From Motrin] Allergy Rash/Hives Verified 05/04/21 17:24 ketorolac tromethamine Allergy Rash/Hives Verified 05/04/21 17:24 [From Toradol] Review of Systems ROS Statement: Those systems with pertinent positive or pertinent negative responses have been documented in the HPI. ROS Other: All systems not noted in ROS Statement are negative. EKG Findings - EKG Results: EKG: interpreted by ERMD, sinus rhythm (Sinus rhythm of 86 [place] interval 160 QRS 92 QT since QTC 376/449 possible left atrial enlargement this is compared to an EKG dated 04/21/21) Past Medical History Past Medical History: Coronary Artery Disease (CAD), Chest Pain / Angina, COPD, Deep Vein Thrombosis (DVT), GERD/Reflux, Hyperlipidemia, Hypertension, Osteoarthritis (OA), Thyroid Disorder Additional Past Medical History / Comment(s): Occasional palpitations, gastritis, small hiatal hernia, diverticular dx, pt states years ago he had PUD, chronic low back pain, chronic pain syndrome, migraines, DVT L arm, numbnes s/tingling bilateral lower legs, bilateral past R hand fracture, arthritis multiple joints, hyperthyroid, sinus problems. History of Any Multi-Drug Resistant Organisms: None Reported Past Surgical History: Back Surgery, Cholecystectomy, Heart Catheterization With Stent, Orthopedic Surgery Additional Past Surgical History / Comment(s): EGDs/colonoscopies, multiple low back surgeries, bilateral arm and bilateral thigh surgeries for brown recluse spider bites with infection, morphine pain pump insertion and removal due to infection, PCI with stents, L rotator cuff repair, L knee arthroscopy, cervical fusion/cage, R cataract removal. 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 He lived to be 82 yrs old. Mother History Unknown: Yes Family Medical History: Hypertension, Myocardial Infarction ([place]) Additional Family Medical History / Comment(s): Mother of a [place] at the age of 55yrs. Brother(s) Family Medical History: Cancer, COPD Additional Family Medical History / Comment(s): Leukemia General Exam - General Exam Comments Initial Comments: This is a well-developed well-nourished awake alert oriented 3 male Limitations: no limitations General appearance: alert, anxious Head exam: Present: atraumatic, normocephalic, normal inspection Eye exam: Present: normal appearance, PERRL, EOMI. Absent: scleral icterus, conjunctival injection, periorbital swelling ENT exam: Present: normal exam, mucous membranes moist Neck exam: Present: normal inspection, full ROM. Absent: tenderness, meningismus, lymphadenopathy Respiratory exam: Present: normal lung sounds bilaterally. Absent: respiratory distress, wheezes, rales, rhonchi, stridor, chest wall tenderness Cardiovascular Exam: Present: regular rate, normal rhythm, normal heart sounds. Absent: systolic murmur, diastolic murmur, rubs, gallop, clicks GI/Abdominal exam: Present: soft, normal bowel sounds. Absent: distended, tenderness, guarding, rebound, rigid Extremities exam: Present: normal inspection, full ROM, normal capillary refill. Absent: tenderness, pedal edema, joint swelling, calf tenderness Back exam: Present: normal inspection Neurological exam: Present: alert, oriented X3, CN II-XII intact Psychiatric exam: Present: normal affect, normal mood Skin exam: Present: warm, dry, intact, normal color. Absent: rash Course Vital Signs 05/04/21 16:38 Temperature 98.2 F Pulse Rate 97 Respiratory 18 Rate Blood Pressure 174/95 O2 Sat by Pulse 100 Oximetry Chest Pain MDM - MDM Imaging reviewed no acute findings. I did discuss the case with Dr. Bailey. Patient will be admitted for evaluation of chest pain Disposition Clinical Impression: Chest pain, Unstable angina pectoris Disposition: ADMITTED IP TO THIS [facility] Condition: Fair Referrals: None,Stated [Primary Care Provider] - 1-2 days
--- NOTE | 2021-05-04 18:08 | XR ---
EXAMINATION TYPE: XR chest 2V DATE OF EXAM: 05/04/2021 COMPARISON: 04/21/2021 HISTORY: Chest pain TECHNIQUE: FINDINGS: There is no heart failure nor confluent pneumonic infiltrate. Costophrenic angles are clear . There are chest leads. Bony thorax is intact. There is cervical spine fusion surgery. There is some osteopenia. IMPRESSION: No active cardiopulmonary disease. No change.
[2021-05-04 18:35] LABS: Potassium 4.1 mmol/L (3.5-5.1)
[2021-05-04 18:36] LABS: ALT 11 U/L (4-49); AST 22 U/L (17-59); African American GFR (CKD) >90 (>60 ml/min/1.73 sqM); Albumin 4.2 g/dL (3.5-5.0); Alkaline Phosphatase 69 U/L (38-126); Anion Gap 7 mmol/L; Blood Urea Nitrogen 6 mg/dL (9-20); Calcium 9.6 mg/dL (8.4-10.2); Carbon Dioxide 26 mmol/L (22-30); Chloride 108 mmol/L (98-107); Creatine Kinase 86 U/L (55-170); Glucose 116 mg/dL (74-99); Lipase 61 U/L (23-300); Magnesium 1.9 mg/dL (1.6-2.3); Non-African American GFR(CKD) >90 (>60 ml/min/1.73 sqM); Sodium 141 mmol/L (137-145); Total Bilirubin 0.6 mg/dL (0.2-1.3); Total Protein 6.9 g/dL (6.3-8.2)
[2021-05-04] MEDS ORDERED: HEPARIN SODIUM 1,000 UN/ML (10ML VL) IV ONE (18:38)
[2021-05-04] MEDS ORDERED: NITROGLYCERIN SL TABS 0.4 MG TAB SUBLINGUAL PRN (18:38)
--- NOTE | 2021-05-04 18:38 | ED ---
Medical Decision Making - Medical Decision Making IV access was limited a rate external jugular #20-gauge was placed - Lab Data Result diagrams: 05/04/21 16:58 Lab Results 05/04/21 Range/Units 16:58 Potassium 4.1 (3.5-5.1) mmol/L Disposition Clinical Impression: Chest pain, Unstable angina pectoris Disposition: ADMITTED IP TO THIS HOSP Condition: Fair Referrals: None,Stated [Primary Care Provider] - 1-2 days
[2021-05-04 18:40] LABS: D-Dimer 0.4 mg/L FEU (<0.60); Prothrombin Time 10.3 sec (9.0-12.0)
[2021-05-04 18:41] LABS: Partial Thromboplastin Time 24.2 sec (22.0-30.0)
[2021-05-04] MEDS ORDERED: PROCHLORPERAZINE 10 MG TAB PO PRN (18:43)
[2021-05-04] MEDS ORDERED: HEPARIN SOD,PORK IN 0.45% NACL 25,000 UNIT in 0.45% NACL 1 250ML.BAG IV SCH (18:45)
[2021-05-04 18:56] LABS: Basophils % (A) 1 %; Eosinophils % (A) 0 %; HCT 40.5 % (39.0-53.0); HGB 12.5 gm/dL (13.0-17.5); Lymphocytes % (A) 21 %; MCH 27.6 pg (25.0-35.0); MCHC 30.8 g/dL (31.0-37.0); MCV 89.6 fL (80.0-100.0); Mean Platelet Volume 6.2; Monocytes # (A) 0.3 k/uL (0-1.0); Monocytes % (A) 5 %; Neutrophils # (A) 3.4 k/uL (1.3-7.7); Neutrophils % (A) 71 %; Platelet Count 343 k/uL (150-450); RBC 4.52 m/uL (4.30-5.90); RDW 14.6 % (11.5-15.5); WBC 4.8 k/uL (3.8-10.6)
[2021-05-04] MEDS ORDERED: cloNIDine HCL 0.2 MG TAB PO PRN (19:28)
[2021-05-04] MEDS: SODIUM CHLORIDE 0.9% 1,000 ML IV SCH (19:52)
[2021-05-04] MEDS ORDERED: MORPHINE SULFATE 4 MG/ML SYRINGE IVP STA (20:06)
[2021-05-04] MEDS: carvediloL 12.5 MG TAB PO SCH (21:06)
[2021-05-04] MEDS: amLODIPine 5 MG TAB PO SCH (21:06)
[2021-05-04] MEDS: PREGABALIN 100 MG CAP PO SCH (21:06)
[2021-05-04] MEDS: ATORVASTATIN 80 MG TAB PO SCH (21:07)
[2021-05-04] MEDS: FLUTICASONE 50MCG/SPRAY NASAL 16GM EA NOSTRIL SCH (21:07)
--- NOTE | 2021-05-04 23:12 | P.HPIM ---
History of Present Illness H&P Date: 05/04/21 Chief Complaint: Recurrent atypical chest pain 65-year-old male with COPD, hypertension, history of CAD status post stents Patient comes in for what he is describing as atypical chest pain he was sitting down doing nothing when suddenly felt chest pressure retrosternal 7 out of 10 in severity then started becoming radiating to the neck to the jaw and the left arm for which she grew concerned this was associated with diaphoresis nausea and shortness of breath and feeling lightheaded for which she decided come the hospital for evaluation patient has frequent hospitalization for same complaints. Most recent stress test was back in September 2020 and was negative Patient was presented to the hospital back in January of this year for similar problem he was having abdominal pain and epigastric and some chest pain GI evaluated the patient and recommended no further intervention he is known to have gastritis and no tinnitus EGD was done July 2020. Currently patient still reporting some chest discomfort is requesting pain medications, patient also takes pain medications at home he is with pain clinic he takes morphine pills and Percocet for chronic back pain due to history of multiple surgeries. Otherwise patient denies any GI bleeding denies any fevers or chills denies any coughing denies any changes in his bowel habits Workup in the ED EKG showed normal sinus rhythm chest x-ray was negative for any acute pathology Hemoglobin was mild anemia at 12.5 Review of Systems Pertinent positives as noted in HPI. All other systems were reviewed and are negative Past Medical History Past Medical History: Coronary Artery Disease (CAD), Chest Pain / Angina, COPD, Deep Vein Thrombosis (DVT), GERD/Reflux, Hyperlipidemia, Hypertension, Osteoarthritis (OA), Thyroid Disorder Additional Past Medical History / Comment(s): Occasional palpitations, gastritis, small hiatal hernia, diverticular dx, pt states years ago he had PUD, chronic low back pain, chronic pain syndrome, migraines, DVT L arm, numbness/tingling bilateral lower legs, bilateral past R hand fracture, arthritis multiple joints, hyperthyroid, sinus problems. History of Any Multi-Drug Resistant Organisms: None Reported Past Surgical History: Back Surgery, Cholecystectomy, Heart Catheterization With Stent, Orthopedic Surgery Additional Past Surgical History / Comment(s): EGDs/colonoscopies, multiple low back surgeries, bilateral arm and bilateral thigh surgeries for brown recluse spider bites with infection, morphine pain pump insertion and removal due to infection, PCI with stents, L rotator cuff repair, L knee arthroscopy, cervical fusion/cage, R cataract removal. 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 states he was "down for 8 minutes" Date of Last Stent Placement:: 10/12/17 Past Psychological History: No Psychological Hx Reported Additional Psychological History / Comment(s): Pt resides with his spouse. He uses a walker and cane to ambulate. He does not drive, neither does his spouse, they us the bus. Smoking Status: Former smoker Past Alcohol Use History: None Reported Additional Past Alcohol Use History / Comment(s): Pt started smoking in 1973 and quit in 1984 Past Drug Use History: None Reported - Past Family History Father Family Medical History: No Reported History Additional Family Medical History / Comment(s): Father had back problems. He lived to be 82 yrs old. Mother History Unknown: Yes Family Medical History: Hypertension, Myocardial Infarction ([place]) Additional Family Medical History / Comment(s): Mother of a [place] at the age of 55yrs. Brother(s) Family Medical History: Cancer, COPD Additional Family Medical History / Comment(s): Leukemia Medications and Allergies Home Medications Medication Instructions Recorded Confirmed Type Fluticasone Nasal [place] [Flonase 1 spray EA NOSTRIL BID 04/20/17 05/04/21 History Nasal [place]] Morphine Sulfate ER [Ms Contin] 30 mg PO Q8H 10/10/17 05/04/21 History Atorvastatin [Lipitor] 80 mg PO HS #30 tab 10/12/17 05/04/21 Rx tiZANidine [Zanaflex] 4 mg PO TID PRN 02/26/18 05/04/21 History Ezetimibe [Zetia] 10 mg PO DAILY #30 tab 05/24/19 05/04/21 Rx Nitroglycerin Sl Tabs [Nitrostat] 0.4 mg SUBLINGUAL Q5M PRN #20 tab 07/02/19 05/04/21 Rx Aspirin EC [Ecotrin Low Dose] 81 mg PO DAILY 01/02/20 05/04/21 History carvediloL [Coreg*] 12.5 mg PO AC-BID 01/02/20 05/04/21 History oxyCODONE-APAP 10-325MG [Percocet 1 tab PO Q8H PRN 01/02/20 05/04/21 History 10-325 mg] Prasugrel [Effient] 10 mg PO DAILY 08/06/20 05/04/21 History lisinopriL 40 mg PO DAILY 08/06/20 05/04/21 History Dicyclomine [Bentyl] 10 mg PO TID PRN 02/13/21 05/04/21 History Pregabalin 100 mg PO BID 02/22/21 05/04/21 History Prochlorperazine [Compazine] 10 mg PO Q6H PRN #12 tab 03/04/21 05/04/21 Rx amLODIPine [Norvasc] 5 mg PO BID 05/04/21 05/04/21 History Allergies Allergy/AdvReac Type Severity Reaction Status Date / Time ibuprofen [From Motrin] Allergy Rash/Hives Verified 05/04/21 17:24 ketorolac tromethamine Allergy Rash/Hives Verified 05/04/21 17:24 [From Toradol] Physical Exam Vitals: Vital Signs Temp Pulse Pulse Resp BP BP Pulse Ox 05/04/21 20:30 97.7 F 81 18 164/93 95 05/04/21 20:00 18 05/04/21 19:52 78 18 163/102 96 05/04/21 19:00 79 18 181/112 98 05/04/21 18:00 82 18 180/109 94 L 05/04/21 17:30 85 18 169/107 05/04/21 17:00 98 18 05/04/21 16:51 86 16 05/04/21 16:38 98.2 F 97 18 174/95 100 Intake and Output 05/04/21 05/04/21 05/05/21 14:59 22:59 06:59 Other: Voiding Method Toilet # Voids 1 Weight 79.379 kg Constitutional: No acute distress, conversant, pleasant Eyes: Anicteric sclerae, moist conjunctiva, Pupils equal round reactive to light ENMT: NC/AT Oropharynx clear, no erythema, or exudates Neck: Supple, FROM, no masses, or JVD No carotid bruits No thyromegaly Lungs: Clear to auscultation Clear to percussion Normal respiratory effort, no accessory muscle use Cardiovascular: Heart regular in rate and rhythm, No murmurs, gallops, or rubs No peripheral edema Abdominal: Soft, epigastric discomfort to deep palpation Voluntary guarding, no rebound or rigidity Abdomen moving with respiration Normoactive bowel sounds No hepatomegaly, No splenomegaly No palpable mass No abdominal wall hernia noted Skin: Normal temperature, tone, texture, turgor No induration No subcutaneous nodules No rash, lesions No ulcers Extremities: No digital cyanosis No clubbing Pedal pulses intact and symmetrical Radial pulses intact and symmetrical No calf tenderness Psychiatric: Alert and oriented to person, place and time Appropriate affect fair judgement Neuro Muscles Strength 5/5 in all 4 extremities Sensation to light touch grossly present throughout Cranial nerves II-XII grossly intact No focal sensory deficits Lymphatics: no palpable cervical or supraclavicular , or inguinal lymph nodes Results CBC & Chem 7: 05/04/21 16:58 05/04/21 16:58 Labs: Abnormal Lab Results - Last 24 Hours (Table) 05/04/21 05/04/21 Range/Units 16:58 16:58 Hgb 12.5 L (13.0-17.5) gm/dL MCHC 30.8 L (31.0-37.0) g/dL Chloride 108 H (98-107) mmol/L BUN 6 L (9-20) mg/dL Glucose 116 H (74-99) mg/dL Thrombosis Risk Factor Assmnt - Choose All That Apply Any of the Below Risk Factors Present?: Yes Each Factor Represents 1 point: Abnormal pulmonary function (COPD) Other Risk Factors: Yes Each Risk Factor Represents 2 Points: Age 61-74 years Each Risk Factor Represents 3 Points: History of DVT/PE Other congenital or acquired thrombophilia - If yes, enter type in comment: No Thrombosis Risk Factor Assessment Total Risk Factor Score: 6 Thrombosis Risk Factor Assessment Level: High Risk Assessment and Plan Assessment: Atypical chest pain rule out ACS Trend troponins 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 EKG normal sinus rhythm Aspirin, statin Nitro for chest pain Opiates for breakthrough chest pain uncontrolled with nitro Patient started on heparin drip in the ED Malignant hypertension, this could be contributing to his episodes of chest pain Patient claims that he is compliant with his meds Add clonidine when necessary for systolic above 180 or diastolic above 110 Resume home blood pressure meds Chronic conditions COPD currently compensated Duodenitis continue with PPI Chronic back pain continue with opiates Follow-up labs and cardiology recommendations Preformed a thorough record review from recent hospitalization recurrent presentation for same complaint of atypical chest pain CODE STATUS: Full code DVT prophylaxis: Heparin drip for possible ACS Discussed with: Patient, ER, RN Anticipated length of stay less than [address]: Home A total of 65 minutes was spent on the care of this complex patient more than 50% of the time was spent in counseling and care coordination.
[2021-05-04] MEDS: PANTOPRAZOLE 40 MG TABLET PO SCH (23:24)
[2021-05-04] MEDS: HYDROmorphone 1 MG/ML 1 ML SYRINGE IVP PRN (23:24)
[2021-05-05] MEDS: tiZANidine 4 MG TAB PO PRN ×2 (00:07→21:05)
[2021-05-05] MEDS: NITROGLYCERIN OINT 1 INCH/GM PACKET TOPICAL SCH ×5 (01:20→22:51)
[2021-05-05] MEDS: MORPHINE SULFATE ER 30 MG TABLET PO SCH ×4 (02:39→20:51)
[2021-05-05] MEDS: oxyCODONE-APAP 10-325MG 1 EACH TAB PO PRN ×2 (03:30→20:50)
[2021-05-05] MEDS: HYDROmorphone 1 MG/ML 1 ML SYRINGE IVP PRN ×4 (05:46→23:13)
[2021-05-05] MEDS ORDERED: PROMETHAZINE 25 MG TAB PO STA (06:44)
[2021-05-05 07:20] LABS: Basophils % (A) 1 %; Eosinophils # (A) 0.1 k/uL (0-0.7); Eosinophils % (A) 2 %; HCT 37.2 % (39.0-53.0); HGB 12.5 gm/dL (13.0-17.5); Lymphocytes # (A) 1.2 k/uL (1.0-4.8); Lymphocytes % (A) 34 %; MCH 29.8 pg (25.0-35.0); MCHC 33.5 g/dL (31.0-37.0); MCV 88.9 fL (80.0-100.0); Mean Platelet Volume 6.5; Monocytes # (A) 0.3 k/uL (0-1.0); Monocytes % (A) 9 %; Neutrophils # (A) 1.9 k/uL (1.3-7.7); Neutrophils % (A) 54 %; Platelet Count 303 k/uL (150-450); RBC 4.18 m/uL (4.30-5.90); RDW 14.4 % (11.5-15.5); WBC 3.5 k/uL (3.8-10.6)
[2021-05-05 07:21] LABS: African American GFR (CKD) >90 (>60 ml/min/1.73 sqM); Anion Gap 5 mmol/L; Blood Urea Nitrogen 9 mg/dL (9-20); Calcium 8.8 mg/dL (8.4-10.2); Carbon Dioxide 25 mmol/L (22-30); Chloride 107 mmol/L (98-107); Glucose 117 mg/dL (74-99); Non-African American GFR(CKD) >90 (>60 ml/min/1.73 sqM); Potassium 4.5 mmol/L (3.5-5.1); Sodium 137 mmol/L (137-145)
--- NOTE | 2021-05-05 08:35 | P.CRDCN ---
History of Present Illness Consult date: 05/05/21 Chief complaint: Chest pain History of present illness: This is a very pleasant 65-year-old gentleman who sees Dr. Go in the office regularly with a past medical history significant for coronary artery disease and prior stenting of the LAD as well as hypertension and dyslipidemia and also chronic pain presented to the emergency department complaining of chest discomfort. He was in his usual state of health until yesterday when he was si tting at home watching a TV and started experiencing discomfort in the middle of the chest was some radiation to the left arm as well as to the neck. The chest discomfort was not associated with sweating or dizziness or lightheadedness or syncope or syncope. He decided to come to the emergency department. The EKG revealed sinus rhythm without any significant ST or T-wave abnormalities. The cardiac enzymes were checked and came in to be unremarkable with a chest x-ray showed no acute abnormalities. He underwent a heart catheterization in 2019 and that revealed patent stent in the LAD was mild to moderate disease involving the diagonal branch which was treated medically. Currently the patient is chest pain free Past Medical History Past Medical History: Coronary Artery Disease (CAD), Chest Pain / Angina, COPD, Deep Vein Thrombosis (DVT), GERD/Reflux, Hyperlipidemia, Hypertension, Osteoarthritis (OA), Thyroid Disorder Additional Past Medical History / Comment(s): Occasional palpitations, gastritis, small hiatal hernia, diverticular dx, pt states years ago he had PUD, chronic low back pain, chronic pain syndrome, migraines, DVT L arm, numbness/tingling bilateral lower legs, bilateral past R hand fracture, arthrit is multiple joints, hyperthyroid, sinus problems. History of Any Multi-Drug Resistant Organisms: None Reported Past Surgical History: Back Surgery, Cholecystectomy, Heart Catheterization With Stent, Orthopedic Surgery Additional Past Surgical History / Comment(s): EGDs/colonoscopies, multiple low back surgeries, bilateral arm and bilateral thigh surgeries for brown recluse spider bites with infection, morphine pain pump insertion and removal due to infection, PCI with stents, L rotator cuff repair, L knee arthroscopy, cervical fusion/cage, R cataract removal. 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 states he was "down for 8 minutes" Date of Last Stent Placement:: 10/12/17 Past Psychological History: No Psychological Hx Reported Additional Psychological History / Comment(s): Pt resides with his spouse. He uses a walker and cane to ambulate. He does not drive, neither does his spouse, they us the bus. Smoking Status: Former smoker Past Alcohol Use History: None Reported Additional Past Alcohol Use History / Comment(s): Pt started smoking in 1973 and quit in 1984 Past Drug Use History: None Reported - Past Family History Father Family Medical History: No Reported History Additional Family Medical History / Comment(s): Father had back problems. He lived to be 82 yrs old. Mother History Unknown: Yes Family Medical History: Hypertension, Myocardial Infarction ([place]) Additional Family Medical History / Comment(s): Mother of a [place] at the age of 55yrs. Brother(s) Family Medical History: Cancer, COPD Additional Family Medical History / Comment(s): Leukemia Medications and Allergies Home Medications Medication Instructions Recorded Confirmed Type Fluticasone Nasal [place] [Flonase 1 spray EA NOSTRIL BID 04/20/17 05/04/21 History Nasal [place]] Morphine Sulfate ER [Ms Contin] 30 mg PO Q8H 10/10/17 05/04/21 History Atorvastatin [Lipitor] 80 mg PO HS #30 tab 10/12/17 05/04/21 Rx tiZANidine [Zanaflex] 4 mg PO TID PRN 02/26/18 05/04/21 History Ezetimibe [Zetia] 10 mg PO DAILY #30 tab 05/24/19 05/04/21 Rx Nitroglycerin Sl Tabs [Nitrostat] 0.4 mg SUBLINGUAL Q5M PRN #20 tab 07/02/19 05/04/21 Rx Aspirin EC [Ecotrin Low Dose] 81 mg PO DAILY 01/02/20 05/04/21 History carvediloL [Coreg*] 12.5 mg PO AC-BID 01/02/20 05/04/21 History oxyCODONE-APAP 10-325MG [Percocet 1 tab PO Q8H PRN 01/02/20 05/04/21 History 10-325 mg] Prasugrel [Effient] 10 mg PO DAILY 08/06/20 05/04/21 History lisinopriL 40 mg PO DAILY 08/06/20 05/04/21 History Dicyclomine [Bentyl] 10 mg PO TID PRN 02/13/21 05/04/21 History Pregabalin 100 mg PO BID 02/22/21 05/04/21 History Prochlorperazine [Compazine] 10 mg PO Q6H PRN #12 tab 03/04/21 05/04/21 Rx amLODIPine [Norvasc] 5 mg PO BID 05/04/21 05/04/21 History Allergies Allergy/AdvReac Type Severity Reaction Status Date / Time ibuprofen [From Motrin] Allergy Rash/Hives Verified 05/04/21 17:24 ketorolac tromethamine Allergy Rash/Hives Verified 05/04/21 17:24 [From Toradol] Physical Exam Vitals: Vital Signs Temp Pulse Pulse Resp BP BP Pulse Ox 05/05/21 07:00 97.6 F 86 16 147/100 98 05/05/21 02:00 18 05/05/21 01:50 98.0 F 77 18 115/75 97 05/04/21 20:30 97.7 F 81 18 164/93 95 05/04/21 20:00 18 05/04/21 19:52 78 18 163/102 96 05/04/21 19:00 79 18 181/112 98 05/04/21 18:00 82 18 180/109 94 L 05/04/21 17:30 85 18 169/107 05/04/21 17:00 98 18 05/04/21 16:51 86 16 05/04/21 16:38 98.2 F 97 18 174/95 100 Intake and Output 05/04/21 05/05/21 05/05/21 22:59 06:59 14:59 Intake Total 52.388 Balance 52.388 Intake: Intake, IV Titration 52.388 Amount Heparin Sod,Pork in 0.45% 52.388 NaCl 25,000 unit In 0.45 % NaCl 1 250ml.bag @ 12 UNITS/KG/HR 9.525 mls/hr IV .Q24H [facility] Rx#: [id number] Other: Voiding Method Toilet Toilet Toilet # Voids 1 0 Weight 79.379 kg - Constitutional General appearance: no acute distress - Respiratory Respiratory: bilateral: CTA - Cardiovascular Rhythm: regular Heart sounds: normal: S1, S2 Abnormal Heart Sounds: systolic murmur Results 05/05/21 06:03 05/05/21 06:03 Cardiac Enzymes 05/04/21 05/04/21 05/04/21 Range/Units 16:58 16:58 20:42 AST 22 (17-59) U/L Troponin I <0.012 <0.012 (0.000-0.034) ng/mL 05/05/21 Range/Units 00:05 AST (17-59) U/L Troponin I <0.012 (0.000-0.034) ng/mL Coagulation 05/04/21 05/05/21 05/05/21 Range/Units 16:58 00:05 06:03 PT 10.3 (9.0-12.0) sec APTT 24.2 44.3 H 35.0 H (22.0-30.0) sec Lipids 05/05/21 Range/Units 06:03 Triglycerides Cancelled Cholesterol Cancelled HDL Cholesterol Cancelled Cholesterol/HDL Ratio Cancelled CBC 05/04/21 05/05/21 Range/Units 16:58 06:03 WBC 4.8 3.5 L (3.8-10.6) k/uL RBC 4.52 4.18 L (4.30-5.90) m/uL Hgb 12.5 L 12.5 L (13.0-17.5) gm/dL Hct 40.5 37.2 L (39.0-53.0) % Plt Count 343 303 (150-450) k/uL Comprehensive Metabolic Panel 05/04/21 05/05/21 Range/Units 16:58 06:03 Sodium 141 137 (137-145) mmol/L Potassium 4.1 4.5 (3.5-5.1) mmol/L Chloride 108 H 107 (98-107) mmol/L Carbon Dioxide 26 25 (22-30) mmol/L BUN 6 L 9 (9-20) mg/dL Creatinine 0.67 0.65 L (0.66-1.25) mg/dL Glucose 116 H 117 H (74-99) mg/dL Calcium 9.6 8.8 (8.4-10.2) mg/dL AST 22 (17-59) U/L ALT 11 (4-49) U/L Alkaline Phosphatase 69 (38-126) U/L Total Protein 6.9 (6.3-8.2) g/dL Albumin 4.2 (3.5-5.0) g/dL Current Medications Generic Name Dose Route Start Last Admin Trade Name Freq PRN Reason Stop Dose Admin Aminophylline 100 mg 05/06/21 06:00 Aminophylline 500 Mg/20 Ml Vial IV 05/06/21 12:00 ONCE PRN Patient Response Amlodipine Besylate 5 mg 05/04/21 21:00 05/04/21 21:06 Amlodipine 5 Mg Tab PO 5 mg BID [facility] Administration Atorvastatin Calcium 80 mg 05/04/21 21:00 05/04/21 21:07 Atorvastatin 80 Mg Tab PO 80 mg HS YES[facility] Administration Caffeine Citrate 60 mg 05/06/21 06:00 Caffeine Citrate 60 Mg/3 Ml Vial IV 05/06/21 12:00 ONCE PRN Patient Response Carvedilol 12.5 mg 05/04/21 19:30 05/04/21 21:06 Carvedilol 12.5 Mg Tab PO 12.5 mg AC-BID [facility] Administration Clonidine 0.2 mg 05/04/21 19:28 Clonidine Hcl 0.2 Mg Tab PO QID PRN Blood Pressure - High Ezetimibe 10 mg 05/05/21 09:00 Ezetimibe 10 Mg Tab PO DAILY [facility] Fluticasone Propionate 1 spray 05/04/21 21:00 05/04/21 21:07 Fluticasone 50mcg/[place] Nasal 16gm EA NOSTRIL 1 spray BID [facility] Administration Hydromorphone HCl 1 mg 05/04/21 23:00 05/05/21 05:46 Hydromorphone 1 Mg/Ml 1 Ml Syringe IVP 1 mg Q6HR PRN Administration Pain Sodium Chloride 1,000 mls @ 20 mls/hr 05/04/21 18:45 05/04/21 19:52 Saline 0.9% IV 20 mls/hr .Q24H [facility] Administration Lisinopril 40 mg 05/05/21 09:00 Lisinopril 20 Mg Tab PO DAILY [facility] Morphine Sulfate 30 mg 05/04/21 20:00 05/05/21 02:39 Morphine Sulfate Er 30 Mg Tablet PO 30 mg TID [facility] Administration Protocol Nitroglycerin 0.4 mg 05/04/21 18:38 Nitroglycerin Sl Tabs 0.4 Mg Tab SUBLINGUAL Q5M PRN Chest Pain Nitroglycerin 1 inch 05/05/21 00:00 05/05/21 04:27 Nitroglycerin Oint 1 Inch/Gm Packet TOPICAL Not Given Q6HR [facility] Oxycodone/Acetaminophen 1 each 05/04/21 18:43 05/05/21 03:30 Oxycodone-Apap 10-325mg 1 Each Tab PO 1 each Q8H PRN Administration Pain Pantoprazole Sodium 40 mg 05/04/21 23:30 05/04/21 23:24 Pantoprazole 40 Mg Tablet PO 40 mg AC-BID [facility] Administration Prasugrel 10 mg 05/05/21 09:00 Prasugrel 10 Mg Tab PO DAILY [facility] Pregabalin 100 mg 05/04/21 21:00 05/04/21 21:06 Pregabalin 100 Mg Cap PO 100 mg BID [facility] Administration Prochlorperazine Maleate 10 mg 05/04/21 18:43 Prochlorperazine 10 Mg Tab PO Q6H PRN Nausea Regadenoson 0.4 mg 05/06/21 06:00 Regadenoson 0.4 Mg/5 Ml Syringe IV 05/06/21 12:00 ONCE PRN Per Protocol Tizanidine HCl 4 mg 05/04/21 18:43 05/05/21 00:07 Tizanidine 4 Mg Tab PO 4 mg TID PRN Administration Muscle Spasm Intake and Output 05/04/21 05/05/21 05/05/21 22:59 06:59 14:59 Intake Total 52.388 Balance 52.388 Intake: Intake, IV Titration 52.388 Amount Heparin Sod,Pork in 0.45% 52.388 NaCl 25,000 unit In 0.45 % NaCl 1 250ml.bag @ 12 UNITS/KG/HR 9.525 mls/hr IV .Q24H [facility] Rx#: [id number] Other: Voiding Method Toilet Toilet Toilet # Voids 1 0 Weight 79.379 kg 05/05/21 06:03 05/05/21 06:03 Assessment and Plan Assessment: Assessment #1 chest discomfort which has resolved #2 known CAD and prior stenting of the LAD #3 hypertension #4 dyslipidemia Plan #1 acute coronary event was ruled out #2 I will do rule out progression in the severity of CAD. I will obtain a stress test #3 further recommendation to follow Thank you for allowing us participate in his care
[2021-05-05] MEDS: amLODIPine 5 MG TAB PO SCH ×2 (09:06→20:50)
[2021-05-05] MEDS: carvediloL 12.5 MG TAB PO SCH ×2 (09:06→17:31)
[2021-05-05] MEDS: PREGABALIN 100 MG CAP PO SCH ×2 (09:06→20:51)
[2021-05-05] MEDS: lisinopriL 20 MG TAB PO SCH (09:06)
[2021-05-05] MEDS: PANTOPRAZOLE 40 MG TABLET PO SCH ×2 (09:06→17:31)
[2021-05-05] MEDS: EZETIMIBE 10 MG TAB PO SCH (09:08)
[2021-05-05] MEDS: FLUTICASONE 50MCG/SPRAY NASAL 16GM EA NOSTRIL SCH ×2 (09:08→21:00)
[2021-05-05] MEDS: PRASUGREL 10 MG TAB PO SCH (10:26)
[2021-05-05 12:42] LABS: Chol/HDL Ratio 3.89
--- NOTE | 2021-05-05 14:14 | P.PN ---
Subjective Progress Note Date: 05/05/21 (Delayed charting seen at 12:30) Principal diagnosis: Chest pain Patient is a 65 yo M with COPD, HTN, HX of CAD s/p stents who presented with recurrent chest pain. Plan as a stress test in a.m. Patient seen and examined at bedside. He complains of pain all over, asking for more pain meds. We discussed that he is on optimal pain medication regimen with his current IV Dilaudid and his home [place] Contin, Percocet, tizanidine, and Lyrica. General: non toxic, no distress, appears at stated age Derm: Multiple areas of scarring warm, dry Head: atraumatic, normocephalic, symmetric Eyes: EOMI, no lid lag, anicteric sclera Mouth: no lip lesion, mucus membranes moist Cardiovascular: S1S2 reg, no murmur, positive posterior tibial pulse bilateral, Lungs: CTA bilateral, no rhonchi, no rales , no accessory muscle use Abdominal: soft, nontender to palpation, no guarding, no appreciable organomegaly Ext: no gross muscle atrophy, no edema, no contractures Neuro: CN II-XI grossly intact, no focal neuro deficits Psych: Alert, oriented, appropriate affect Chest pain -Troponins negative -Cardiology recommendations: Stress test in a.m. -Aspirin, statin, beta jerald Chronic pain syndrome -Continue home pain medication regimen with MS Contin, Percocet, Lyrica, tizanidine -Dilaudid for breakthrough pain, would avoid increasing and left there is an acute pain concern as patient probably has hyperesthesia from chronic opiate use. Hypertension, controlled -Continue with Coreg, Norvasc Dyslipidemia -Suboptimal control -Continue Lipitor and Zetia Chronic: COPD Left arm DVT Neuropathy Gastritis, hiatal hernia DVT prophylaxis: SCDs Discussed with: Patient, nursing Anticipated discharge: In a.m. Anticipated discharge place: Home A total of 200minutes was spent on the care of this complex patient more than 50% of the time was spent in counseling and care coordination. Objective - Vital Signs Vital signs: Vital Signs Temp 97.7 F 05/05/21 13:50 Pulse 83 05/05/21 13:50 Resp 16 05/05/21 13:50 BP 159/99 05/05/21 13:50 Pulse Ox 99 05/05/21 13:50 Intake & Output 05/04/21 05/05/21 05/05/21 18:59 06:59 18:59 Intake Total 52.388 520 Balance 52.388 520 Weight 79.379 kg 79.379 kg Intake: Intake, IV Titration 52.388 Amount Heparin Sod,Pork in 0.45% 52.388 NaCl 25,000 unit In 0.45 % NaCl 1 250ml.bag @ 12 UNITS/KG/HR 9.525 mls/hr IV .Q24H [facility] Rx#: [id number] Oral 520 Other: Voiding Method Toilet Toilet # Voids 0 2 - Labs CBC & Chem 7: 05/05/21 06:03 05/05/21 06:03 Labs: Abnormal Lab Results - Last 24 Hours (Table) 05/04/21 05/04/21 05/04/21 Range/Units 16:58 16:58 16:58 WBC (3.8-10.6) k/uL RBC (4.30-5.90) m/uL Hgb 12.5 L (13.0-17.5) gm/dL Hct (39.0-53.0) % MCHC 30.8 L (31.0-37.0) g/dL APTT (22.0-30.0) sec Chloride 108 H (98-107) mmol/L BUN 6 L (9-20) mg/dL Creatinine (0.66-1.25) mg/dL Glucose 116 H (74-99) mg/dL Cholesterol 241 H (0-200) mg/dL LDL Cholesterol, Calc 157.0 H (0.0-131.0) mg/dL HDL Cholesterol 62.0 H (40.0-60.0) mg/dL 05/05/21 05/05/21 05/05/21 Range/Units 00:05 06:03 06:03 WBC 3.5 L (3.8-10.6) k/uL RBC 4.18 L (4.30-5.90) m/uL Hgb 12.5 L (13.0-17.5) gm/dL Hct 37.2 L (39.0-53.0) % MCHC (31.0-37.0) g/dL APTT 44.3 H (22.0-30.0) sec Chloride (98-107) mmol/L BUN (9-20) mg/dL Creatinine 0.65 L (0.66-1.25) mg/dL Glucose 117 H (74-99) mg/dL Cholesterol (0-200) mg/dL LDL Cholesterol, Calc (0.0-131.0) mg/dL HDL Cholesterol (40.0-60.0) mg/dL 05/05/21 Range/Units 06:03 WBC (3.8-10.6) k/uL RBC (4.30-5.90) m/uL Hgb (13.0-17.5) gm/dL Hct (39.0-53.0) % MCHC (31.0-37.0) g/dL APTT 35.0 H (22.0-30.0) sec Chloride (98-107) mmol/L BUN (9-20) mg/dL Creatinine (0.66-1.25) mg/dL Glucose (74-99) mg/dL Cholesterol (0-200) mg/dL LDL Cholesterol, Calc (0.0-131.0) mg/dL HDL Cholesterol (40.0-60.0) mg/dL
[2021-05-05] MEDS: ATORVASTATIN 80 MG TAB PO SCH (20:50)
[2021-05-05] MEDS: SODIUM CHLORIDE 0.9% 1,000 ML IV SCH (20:52)
[2021-05-06] MEDS ORDERED: ACETAMINOPHEN TAB 325 MG TAB PO PRN (01:32)
[2021-05-06] MEDS ORDERED: SUMAtriptan succinate 50 MG TAB PO STA (01:34)
[2021-05-06] MEDS: HYDROmorphone 1 MG/ML 1 ML SYRINGE IVP PRN ×2 (04:37→11:18)
[2021-05-06] MEDS: NITROGLYCERIN OINT 1 INCH/GM PACKET TOPICAL SCH (04:42)
[2021-05-06] MEDS: oxyCODONE-APAP 10-325MG 1 EACH TAB PO PRN ×2 (05:56→14:15)
[2021-05-06] MEDS: MORPHINE SULFATE ER 30 MG TABLET PO PRN ×2 (05:56→14:14)
[2021-05-06] MEDS ORDERED: AMINOPHYLLINE 500 MG/20 ML VIAL IV PRN (06:00)
[2021-05-06] MEDS ORDERED: REGADENOSON 0.4 MG/5 ML SYRINGE IV PRN (06:00)
[2021-05-06] MEDS ORDERED: CAFFEINE CITRATE 60 MG/3 ML VIAL IV PRN (06:00)
[2021-05-06 07:13] VITALS: TEMP 98
[2021-05-06] MEDS: PREGABALIN 100 MG CAP PO SCH (09:09)
[2021-05-06] MEDS: EZETIMIBE 10 MG TAB PO SCH (09:09)
[2021-05-06] MEDS: PANTOPRAZOLE 40 MG TABLET PO SCH (09:09)
[2021-05-06] MEDS: lisinopriL 20 MG TAB PO SCH (09:10)
[2021-05-06] MEDS: amLODIPine 5 MG TAB PO SCH (09:10)
[2021-05-06] MEDS: PRASUGREL 10 MG TAB PO SCH (09:10)
[2021-05-06] MEDS: FLUTICASONE 50MCG/SPRAY NASAL 16GM EA NOSTRIL SCH (09:10)
--- NOTE | 2021-05-06 09:53 | P.PN ---
Subjective Progress Note Date: 05/06/21 HISTORY OF PRESENT ILLNESS: This is a very pleasant 65-year-old gentleman who sees Dr. Go in the office regularly with a past medical history significant for coronary artery disease and prior stenting of the LAD as well as hypertension and dyslipidemia and also chronic pain presented to the emergency department complaining of chest discomfort. He was in his usual state of health until yesterday when he was sitting at home watching a TV and started experiencing discomfort in the middle of the chest was some radiation to the left arm as well as to the neck. The chest discomfort was not associated with sweating or dizziness or lightheadedness or syncope or syncope. He decided to come to the emergency department. The EKG revealed sinus rhythm without any significant ST or T-wave abnormalities. The cardiac enzymes were checked and came in to be unremarkable with a chest x-ray showed no acute abnormalities. He underwent a heart catheterization in 2018 and that revealed patent stent in the LAD was mild to moderate disease involving the diagonal branch which was treated medically. Currently the patient is chest pain free 05/06/2021 Patient examined this morning at the bedside. Patient reports having a decent night. He reports intermittent chest discomfort. Patient had an echocardiogram performed in April 2020 revealing ejection fraction 55-60%. Patient also underwent dobutamine stress test in September 2020 revealing no evidence of stress-induced ischemia. Patient has a history of PCI to LAD and diagonal branch in 2016 Telemetry reveals sinus mechanism. Blood pressure this morning 144/106. Heart rate in the 90s. He is on room air with oxygen saturations greater than 92%. PHYSICAL EXAM: VITAL SIGNS: Reviewed. GENERAL: Well-developed in no acute distress. NECK: Supple. No JVD or thyromegaly LUNGS: Respirations even and unlabored. Lungs essentially clear to auscultation bilaterally. HEART: Regular rate and rhythm. S1 and S2 heard. EXTREMITIES: Normal range of motion. No clubbing or cyanosis. Peripheral pul ses intact. No lower extremity edema ASSESSMENT: Chest pain Coronary artery disease with previous PCI to the LAD Hypertension Hyperlipidemia PLAN: Add aspirin 81mg due to history of CAD Continue Norvasc, carvedilol, lisinopril, Zetia, atorvastatin, and effient Patient to undergo Aidee scan stress test today If negative, he may be discharged home today and follow up with Dr. Go Further recommendations pending patient course Nurse practitioner note has been reviewed by physician. Signing provider agrees with the documented findings, assessment, and plan of care. Objective - Vital Signs Vital signs: Vital Signs Temp 98.0 F 05/06/21 07:00 Pulse 90 05/06/21 07:00 Resp 14 05/06/21 07:00 BP 144/106 05/06/21 07:00 Pulse Ox 98 05/06/21 07:00 Intake & Output 05/05/21 05/06/21 05/06/21 18:59 06:59 18:59 Intake Total 520 Output Total 800 Balance 520 -800 Intake: Oral 520 Output: Urine 800 Other: Voiding Method Toilet Toilet # Voids 2 3 - Labs CBC & Chem 7: 05/05/21 06:03 05/05/21 06:03 Labs: Abnormal Lab Results - Last 24 Hours (Table) 05/04/21 Range/Units 16:58 Cholesterol 241 H (0-200) mg/dL LDL Cholesterol, Calc 157.0 H (0.0-131.0) mg/dL HDL Cholesterol 62.0 H (40.0-60.0) mg/dL
[2021-05-06] MEDS ORDERED: ASPIRIN 81 MG PO SCH (10:00)
[2021-05-06] MEDS: carvediloL 12.5 MG TAB PO SCH (11:18)
--- NOTE | 2021-05-06 12:08 | NM ---
EXAMINATION TYPE: NM stress lexiscan cardiolite DATE OF EXAM: 05/06/2021 COMPARISON: Nuclear medicine Cardiolite Lexiscan November 17, 2017 HISTORY: Chest pain and difficulty breathing along with palpitations. History of hypertension and hyp ercholesterolemia along with angioplasty 3 vessel. TECHNIQUE: After the intravenous administration of 9.3 mCi Tc 99m Sestamibi - Cardiolite resting SPE CT images acquired 45 minutes post injection. The patient received 0.4mg Lexiscan, 24.8 mCi Tc 99m Sestamibi - Stress images obtained [address] injection FINDINGS: Review of stress and rest SPECT images demonstrates no distinct perfusion abnormality. Gated analysi s shows normal wall motion with an estimated left ventricular ejection fraction of 61 %. IMPRESSION: No scintigraphic evidence for reversible ischemia on today's study.
--- NOTE | 2021-05-06 13:32 | EST ---
EXERCISE STRESS DATE OF SERVICE: .05/06/21 CLINICAL INFORMATION: AGE: 65 SEX: M HT: 5'11" WT: 175 lbs PROTOCOL: Lexiscan STAGE: N/A DURATION OF EXERCISE: 5 minutes HEART RATE REST: 84 BLOOD PRESSURE REST: 145/89 MAXIMUM HEART RATE ACHIEVED: 91 MAXIMUM BLOOD PRESSURE: 145/89 85% MPHR: 133 100% MPHR: 156 METS: N/A RESULTS: Baseline rhythm is a sinus mechanism, rate of 64, normal axis and intervals. Normal echocardiogram. Baseline blood pressure 145/89 mmHg. Patient received injection of Lexiscan. Electrocardiograph monitoring revealed no evidence of diagnostic ischemic ST deviation. Cardiolite was injected per protocol. CONCLUSION: 1. Nondiagnostic electrocardiograph stress testing. 2. Nuclear images will be reported separately. MMODL / IJN: [id number] /
--- NOTE | 2021-05-06 13:51 | P.DS ---
Providers Date of admission: 05/04/21 18:38 Expected date of discharge: 05/06/21 Attending physician: Lucia Bailey MD Consults: 05/04/21 18:38 Consult Physician Urgent Consulting Provider: Yogesh Simmons Consult Reason/Comments: Chest pain Do you want consulting provider notified?: Yes Primary care physician: Stated None Hospital Course: Patient is a 65 yo M with COPD, HTN, HX of CAD s/p stents who presented with recurrent chest pain. Patient was placed on observation and was seen and evaluated by cardiology. ACS ruled out. Patient underwent a flexible sigmoidoscopy scan stress test that was negative. He was cleared by cardiology for discharge. He will follow-up in the office as directed. Patient Condition at Discharge: Fair Plan - Discharge Summary Discharge Rx Participant: No New Discharge Prescriptions: Continue Fluticasone Nasal [place] [Flonase Nasal [place]] 1 spray EA NOSTRIL BID Morphine Sulfate ER [Ms Contin] 30 mg PO Q8H Atorvastatin [Lipitor] 80 mg PO HS #30 tab tiZANidine [Zanaflex] 4 mg PO TID PRN PRN Reason: Muscle Spasm Ezetimibe [Zetia] 10 mg PO DAILY #30 tab Nitroglycerin Sl Tabs [Nitrostat] 0.4 mg SUBLINGUAL Q5M PRN #20 tab PRN Reason: Chest Pain oxyCODONE-APAP 10-325MG [Percocet 10-325 mg] 1 tab PO Q8H PRN PRN Reason: Pain Aspirin EC [Ecotrin Low Dose] 81 mg PO DAILY carvediloL [Coreg*] 12.5 mg PO AC-BID lisinopriL 40 mg PO DAILY Prasugrel [Effient] 10 mg PO DAILY Prochlorperazine [Compazine] 10 mg PO Q6H PRN #12 tab PRN Reason: Nausea amLODIPine [Norvasc] 5 mg PO BID Dicyclomine [Bentyl] 10 mg PO TID PRN PRN Reason: IBS Pregabalin 100 mg PO BID Discharge Medication List Fluticasone Nasal [place] [Flonase Nasal [place]] 1 spray EA NOSTRIL BID 04/20/17 [History] Morphine Sulfate ER [Ms Contin] 30 mg PO Q8H 10/10/17 [History] Atorvastatin [Lipitor] 80 mg PO HS #30 tab 11/20/17 [Rx] tiZANidine [Zanaflex] 4 mg PO TID PRN 02/26/18 [History] Ezetimibe [Zetia] 10 mg PO DAILY #30 tab 05/24/19 [Rx] Nitroglycerin Sl Tabs [Nitrostat] 0.4 mg SUBLINGUAL Q5M PRN #20 tab 07/02/19 [Rx] Aspirin EC [Ecotrin Low Dose] 81 mg PO DAILY 01/02/20 [History] carvediloL [Coreg*] 12.5 mg PO AC-BID 01/02/20 [History] oxyCODONE-APAP 10-325MG [Percocet 10-325 mg] 1 tab PO Q8H PRN 01/02/20 [History] Prasugrel [Effient] 10 mg PO DAILY 08/06/20 [History] lisinopriL 40 mg PO DAILY 08/06/20 [History] Dicyclomine [Bentyl] 10 mg PO TID PRN 02/13/21 [History] Pregabalin 100 mg PO BID 02/22/21 [History] Prochlorperazine [Compazine] 10 mg PO Q6H PRN #12 tab 03/04/21 [Rx] amLODIPine [Norvasc] 5 mg PO BID 05/04/21 [History] Follow up Appointment(s)/Referral(s): Fannie Go MD [STAFF PHYSICIAN] - 1 Week None,Stated [Primary Care Provider] - 1-2 days Discharge Disposition: HOME SELF-CARE
[2021-05-06 14:04] VITALS: BP 147/95; PULSE 87; RESP 16
== END 2021-05-06 15:38 | disposition home or self-care (01) ==
LOC: EC 16:35 → 6NMEDSUR 18:38
PROVIDERS: ADMIT Internal Medicine; ATTEND Internal Medicine
DX: R07.89 Other chest pain (principal); I10 Essential (primary) hypertension; I25.10 Atherosclerotic heart disease of native coronary artery without angina pectoris; Z20.822 Contact with and (suspected) exposure to COVID-19; J44.9 Chronic obstructive pulmonary disease, unspecified; K29.80 Duodenitis without bleeding; G89.4 Chronic pain syndrome; M54.9 Dorsalgia, unspecified; E78.5 Hyperlipidemia, unspecified; K29.70 Gastritis, unspecified, without bleeding; K44.9 Diaphragmatic hernia without obstruction or gangrene; I82.622 Acute embolism and thrombosis of deep veins of left upper extremity; G62.9 Polyneuropathy, unspecified; D64.9 Anemia, unspecified; K21.9 Gastro-esophageal reflux disease without esophagitis; M54.5 Low back pain; E05.90 Thyrotoxicosis, unspecified without thyrotoxic crisis or storm; M19.90 Unspecified osteoarthritis, unspecified site; Z79.02 Long term (current) use of antithrombotics/antiplatelets; Z79.891 Long term (current) use of opiate analgesic; Z79.82 Long term (current) use of aspirin; Z79.899 Other long term (current) drug therapy; Z88.6 Allergy status to analgesic agent; Z87.11 Personal history of peptic ulcer disease; Z87.891 Personal history of nicotine dependence; Z98.41 Cataract extraction status, right eye; Z90.49 Acquired absence of other specified parts of digestive tract; Z87.81 Personal history of (healed) traumatic fracture; Z95.5 Presence of coronary angioplasty implant and graft; Z96.89 Presence of other specified functional implants; Z82.5 Family history of asthma and other chronic lower respiratory diseases; Z80.6 Family history of leukemia; Z82.49 Family history of ischemic heart disease and other diseases of the circulatory system
CPT/HCPCS: 96376 ×3; 96366 ×2; 93005 ×2; 96365; 96375; 99285; 36415; 93017; 85379; 83880; 80061; 80053; 80048; 82550; 83690; 83735; 84484 ×2; 85025 ×2; 85610; 85730 ×2; 87635; 71046; 78452; G0378 ×3; A9500; S0183; J2270; J2405; J1644 ×2; J1170 ×3

== ENCOUNTER 2021-05-10 01:48 | Emergency (ER) | payer MEDICARE, OTHER ==
[2021-05-10 01:57] VITALS: BP 126/84; PULSE 97; RESP 20; TEMP 97.5
[2021-05-10] MEDS ORDERED: ETODOLAC 400 MG TAB PO STA (02:41)
[2021-05-10] MEDS ORDERED: PROCHLORPERAZINE 5 MG TAB PO STA (02:41)
[2021-05-10] MEDS ORDERED: HYDROmorphone 1 MG/ML 1 ML SYRINGE IM STA (02:41)
[2021-05-10] MEDS ORDERED: diphenhydrAMINE 50 MG CAP PO STA (02:41)
--- NOTE | 2021-05-10 02:47 | ED ---
Headache HPI - General Chief Complaint: Headache Stated Complaint: Migraine Time Seen by Provider: 05/10/21 01:55 Source: RN notes reviewed, old records reviewed Mode of arrival: ambulatory Limitations: no limitations - History of Present Illness Initial Comments: This is a 65-year-old male DF for evaluation. Patient's well-known to this emergency prior. Patient is here for headache has history of headaches. Patient has no trauma. Headache is lasting now for about 7 hours. Patient has no other complaints MD Complaint: headache, "migraine" (History of) -: hour(s) Onset Description: gradual Location: right, left, frontal Severity: moderate Severity scale (1-10): 6 Quality: aching, throbbing Consistency: constant Improves With: nothing Worsens With: none Associated Symptoms: nausea, photophobia, sensitivity to sound Other Symptoms: eye pain/redness Treatments Prior to Arrival: none - Related Data Home Medications Medication Instructions Recorded Confirmed Fluticasone Nasal [place] [Flonase 1 spray EA NOSTRIL BID 04/20/17 05/04/21 Nasal [place]] Morphine Sulfate ER [Ms Contin] 30 mg PO Q8H 10/10/17 05/04/21 tiZANidine [Zanaflex] 4 mg PO TID PRN 02/26/18 05/04/21 Aspirin EC [Ecotrin Low Dose] 81 mg PO DAILY 01/02/20 05/04/21 carvediloL [Coreg*] 12.5 mg PO AC-BID 01/02/20 05/04/21 oxyCODONE-APAP 10-325MG [Percocet 1 tab PO Q8H PRN 01/02/20 05/04/21 10-325 mg] Prasugrel [Effient] 10 mg PO DAILY 08/06/20 05/04/21 lisinopriL 40 mg PO DAILY 08/06/20 05/04/21 Dicyclomine [Bentyl] 10 mg PO TID PRN 02/13/21 05/04/21 Pregabalin 100 mg PO BID 02/22/21 05/04/21 amLODIPine [Norvasc] 5 mg PO BID 05/04/21 05/04/21 Previous Rx's Medication Instructions Recorded Atorvastatin [Lipitor] 80 mg PO HS #30 tab 10/12/17 Ezetimibe [Zetia] 10 mg PO DAILY #30 tab 05/24/19 Nitroglycerin Sl Tabs [Nitrostat] 0.4 mg SUBLINGUAL Q5M PRN #20 tab 07/02/19 Prochlorperazine [Compazine] 10 mg PO Q6H PRN #12 tab 03/04/21 Allergies Allergy/AdvReac Type Severity Reaction Status Date / Time ibuprofen [From Motrin] Allergy Rash/Hives Verified 05/10/21 01:57 ketorolac tromethamine Allergy Rash/Hives Verified 05/10/21 01:57 [From Toradol] Review of Systems ROS Statement: Those systems with pertinent positive or pertinent negative responses have been documented in the HPI. ROS Other: All systems not noted in ROS Statement are negative. Past Medical History Past Medical History: Coronary Artery Disease (CAD), Chest Pain / Angina, COPD, Deep Vein Thrombosis (DVT), GERD/Reflux, Hyperlipidemia, Hypertension, Osteoarthritis (OA), Thyroid Disorder Additional Past Medical History / Comment(s): Occasional palpitations, gastritis, small hiatal hernia, diverticular dx, pt states years ago he had PUD, chronic low back pain, chronic pain syndrome, migraines, DVT L arm, numbness/tingling bilateral lower legs, bilateral past R hand fracture, arthritis multiple joints, hyperthyroid, sinus problems. History of Any Multi-Drug Resistant Organisms: None Reported Past Surgical History: Back Surgery, Cholecystectomy, Heart Catheterization With Stent, Orthopedic Surgery Additional Past Surgical History / Comment(s): EGDs/colonoscopies, multiple low back surgeries, bilateral arm and bilateral thigh surgeries for brown recluse spider bites with infection, morphine pain pump insertion and removal due to infection, PCI with stents, L rotator cuff repair, L knee arthroscopy, cervical fusion/cage, R cataract removal. 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 He lived to be 82 yrs old. Mother History Unknown: Yes Family Medical History: Hypertension, Myocardial Infarction (ND) Additional Family Medical History / Comment(s): Mother of a ND at the age of 55yrs. Brother(s) Family Medical History: Cancer, COPD Additional Family Medical History / Comment(s): Leukemia General Exam Limitations: no limitations General appearance: alert, in no apparent distress Head exam: Present: atraumatic, normocephalic, normal inspection Eye exam: Present: normal appearance, PERRL, EOMI. Absent: scleral icterus, conjunctival injection, periorbital swelling ENT exam: Present: normal exam, mucous membranes moist Neck exam: Present: normal inspection. Absent: tenderness, meningismus, lymphadenopathy Respiratory exam: Present: normal lung sounds bilaterally. Absent: respiratory distress, wheezes, rales, rhonchi, stridor Cardiovascular Exam: Present: regular rate, normal rhythm, normal heart sounds. Absent: systolic murmur, diastolic murmur, rubs, gallop, clicks GI/Abdominal exam: Present: soft, normal bowel sounds. Absent: distended, tenderness, guarding, rebound, rigid Extremities exam: Present: normal inspection, full ROM, normal capillary refill. Absent: tenderness, pedal edema, joint swelling, calf tenderness Back exam: Present: normal inspection Neurological exam: Present: alert, oriented X3, CN II-XII intact Psychiatric exam: Present: normal affect, normal mood Skin exam: Present: warm, dry, intact, normal color. Absent: rash Course Vital Signs 05/10/21 01:53 Temperature 97.5 F L Pulse Rate 97 Respiratory 20 Rate Blood Pressure 126/84 O2 Sat by Pulse 98 Oximetry - Reevaluation(s) Reevaluation #1: 05/10/21 02:46 Medical record is reviewed Reevaluation #2: 05/10/21 02:46 Headache is resolved Medical Decision Making - Medical Decision Making 55 male DF for evaluation of migraine headache. Patient has migraine headache resolved here in the ER and can be discharged home Disposition Clinical Impression: Intractable headache, Migraine Disposition: HOME SELF-CARE Condition: Good Instructions (If sedation given, give patient instructions): Acute Headache (ED) Is patient prescribed a controlled substance at d/c from ED?: No Referrals: None,Stated [Primary Care Provider] - 1-2 days
== END 2021-05-10 03:48 | disposition home or self-care (01) ==
LOC: EC 01:48
DX: G43.919 Migraine, unspecified, intractable, without status migrainosus (principal); E78.5 Hyperlipidemia, unspecified; I10 Essential (primary) hypertension; I25.10 Atherosclerotic heart disease of native coronary artery without angina pectoris; J44.9 Chronic obstructive pulmonary disease, unspecified; M19.90 Unspecified osteoarthritis, unspecified site; K21.9 Gastro-esophageal reflux disease without esophagitis; Z79.82 Long term (current) use of aspirin; Z86.718 Personal history of other venous thrombosis and embolism; Z87.891 Personal history of nicotine dependence; Z90.49 Acquired absence of other specified parts of digestive tract; Z95.5 Presence of coronary angioplasty implant and graft
CPT/HCPCS: 99284; 96372; S0183; J1170

== ENCOUNTER 2021-05-15 14:18 | Inpatient (IN) | payer MEDICARE, OTHER ==
[2021-05-15] MEDS ORDERED: hydrALAZINE HCL 20 MG/ML 1 ML VIAL IVP STA (16:04)
[2021-05-15] MEDS ORDERED: MORPHINE SULFATE 4 MG/ML SYRINGE IV STA (16:04)
[2021-05-15] MEDS ORDERED: ASPIRIN 81 MG PO STA (16:04)
--- NOTE | 2021-05-15 16:38 | ED ---
Recheck HPI - General Chief Complaint: Recheck/Abnormal Lab/Rx Stated Complaint: High BP Time Seen by Provider: 05/15/21 15:47 Source: patient Mode of arrival: wheelchair Limitations: no limitations - History of Present Illness Initial Comments: Patient is a 65-year-old male with past medical history remarkable for COPD, chronic chest pain, hypertension, MIs with multiple stents, chronic pain, who presents to the emergency department with chief complaint of hypertension with associated chest pain. Patient's Chest pain sharp sensation and radiates suárez bsternally the left chest and left arm and is also complaining of a headache. He describes headache instability sensation tied around his head. This is typical for a normal headache for the patient. He states that he has found this way since earlier today at about 11:30. It is currently 4:00pm. He currently denies any abdominal pain, nausea, vomiting. Denies any fevers, chills, cough. Denies any difficulty breathing. His primary complaints of a headache as well as chest pain has hypertension. He states he has taken all of his antihypertensive medications today. Has not missed any doses. He denies any drug use. He is on morphine as well as Vicodin chronically for his chronic pain. He denies any sick symptoms. He has no known sick contacts. Patient presents with a concern for his hypertension as well as headache and chest pain. Patient has frequently presented to the emergency department for chest pain the past. His baseline blood pressure does appear to be with systolics in the 160s. - Related Data Home Medications Medication Instructions Recorded Confirmed Fluticasone Nasal [place] [Flonase 1 spray EA NOSTRIL BID 04/20/17 05/15/21 Nasal [place]] Morphine Sulfate ER [Ms Contin] 30 mg PO Q8H 10/10/17 05/15/21 tiZANidine [Zanaflex] 4 mg PO BID 02/26/18 05/15/21 Aspirin EC [Ecotrin Low Dose] 81 mg PO DAILY 01/02/20 05/15/21 carvediloL [Coreg*] 12.5 mg PO AC-BID 01/02/20 05/15/21 oxyCODONE-APAP 10-325MG [Percocet 1 tab PO Q8H 01/02/20 05/15/21 10-325 mg] Prasugrel [Effient] 10 mg PO DAILY 08/06/20 05/15/21 lisinopriL 40 mg PO DAILY 08/06/20 05/15/21 Dicyclomine [Bentyl] 10 mg PO TID PRN 02/13/21 05/15/21 Pregabalin 100 mg PO BID 02/22/21 05/15/21 amLODIPine [Norvasc] 5 mg PO BID 05/04/21 05/15/21 Previous Rx's Medication Instructions Recorded Atorvastatin [Lipitor] 80 mg PO HS #30 tab 10/12/17 Ezetimibe [Zetia] 10 mg PO DAILY #30 tab 05/24/19 Nitroglycerin Sl Tabs [Nitrostat] 0.4 mg SUBLINGUAL Q5M PRN #20 tab 07/02/19 Prochlorperazine [Compazine] 10 mg PO Q6H PRN #12 tab 03/04/21 Allergies Allergy/AdvReac Type Severity Reaction Status Date / Time ibuprofen [From Motrin] Allergy Rash/Hives Verified 05/15/21 15:23 ketorolac tromethamine Allergy Rash/Hives Verified 05/15/21 15:23 [From Toradol] Review of Systems ROS Statement: Those systems with pertinent positive or pertinent negative responses have been documented in the HPI. Review of Systems: CONST: Denies fever EYES: Denies blurry vision ENT: Denies nasal congestion C/V: Endorses chest pain RESP: Denies shortness of breath GI: Denies abdominal pain : Denies dysuria SKIN: Denies rash. MSK: Denies joint pain. NEURO: Endorses headache ROS Other: All systems not noted in ROS Statement are negative. Past Medical History Past Medical History: Coronary Artery Disease (CAD), Chest Pain / Angina, COPD, Deep Vein Thrombosis (DVT), GERD/Reflux, Hyperlipidemia, Hypertension, Osteoarthritis (OA), Thyroid Disorder Additional Past Medical History / Comment(s): Occasional palpitations, gastritis , small hiatal hernia, diverticular dx, pt states years ago he had PUD, chronic low back pain, chronic pain syndrome, migraines, DVT L arm, numbness/tingling bilateral lower legs, bilateral past R hand fracture, arthritis multiple joints, hyperthyroid, sinus problems. History of Any Multi-Drug Resistant Organisms: None Reported Past Surgical History: Back Surgery, Cholecystectomy, Heart Catheterization With Stent, Orthopedic Surgery Additional Past Surgical History / Comment(s): EGDs/colonoscopies, multiple low back surgeries, bilateral arm and bilateral thigh surgeries for brown recluse spider bites with infection, morphine pain pump insertion and removal due to infection, PCI with stents, L rotator cuff repair, L knee arthroscopy, cervical fusion/cage, R cataract removal. 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 He lived to be 82 yrs old. Mother History Unknown: Yes Family Medical History: Hypertension, Myocardial Infarction (AL) Additional Family Medical History / Comment(s): Mother of a AL at the age of 55yrs. Brother(s) Family Medical History: Cancer, COPD Additional Family Medical History / Comment(s): Leukemia General Exam - General Exam Comments Initial Comments: Constitutional: Blood pressure was 212/106, pulse was 74, respirations were 20, pulse oximetry was 98% on room air, temperature was is 97.9. General: Appears in mild distress secondary to headache HEAD: Normal with no signs of head trauma. EYES: PERRLA, EOMI, conjunctiva normal, no discharge. ENT: Hearing grossly intact, normal oropharynx. RESPIRATORY: Clear breath sounds bilaterally. No wheezes, rales, or rhonchi. C/V: Patient slightly bradycardic with heart rate into the mid 60s. Regular rhythm. S1 and S2 auscultated. Minimal peripheral edema. Peripheral pulses are 2+ and intact throughout. They are symmetrical. ABD: Abd is soft, nontender, nondistended EXT: Normal range of motion, no obvious deformity SKIN: No rashes or lesions observed on exposed skin. NEURO: Alert and oriented 4. Cranial nerves II through XII are intact. No focal sensory strength deficits. Patient's cerebellar function is intact as evident by intact finger to nose testing. Patient is able to ambulate. Limitations: no limitations Course Vital Signs 05/15/21 05/15/21 05/15/21 15:21 17:18 17:55 Temperature 97.9 F 98.2 F Pulse Rate 74 75 80 Respiratory 20 15 16 Rate Blood Pressure 212/106 202/121 158/99 O2 Sat by Pulse 98 98 Oximetry 05/15/21 05/15/21 05/15/21 18:00 19:00 19:15 Temperature Pulse Rate 76 78 80 Respiratory 16 11 L 10 L Rate Blood Pressure 158/99 171/123 171/104 O2 Sat by Pulse Oximetry 05/15/21 05/15/21 05/15/21 19:30 19:45 20:00 Temperature Pulse Rate 87 79 Respiratory 18 11 L Rate Blood Pressure 169/104 172/108 172/108 O2 Sat by Pulse Oximetry 05/15/21 05/15/21 05/15/21 20:15 20:19 20:30 Temperature Pulse Rate 80 83 112 H Respiratory 10 L 16 12 Rate Blood Pressure 178/105 178/105 175/107 O2 Sat by Pulse 96 97 Oximetry Medical Decision Making - Medical Decision Making This and the patient's presentation and physical exam, I am concerned for cardiac etiology for his current symptoms. S appears to be in hypertensive emergency, as he is symptomatic with chest pain as well as a headache. Blood pressure is significantly above his baseline despite taking his normal antihypertensives today. He has mildly bradycardic into the 60s. Therefore we will obtain a cardiac workup and troponins, basic laboratory studies, EKG, chest x-ray. We will treat the patient's hypertension with a nicardipine drip, as the patient likely will not tolerate labetalol pushes at this time secondary to his relative bradycardia. Patient will be connected to continuous cardiac monitoring while is here in the emergency department. He will be given an aspirin as well as morphine for pain management. Patient was in agreement with this plan. Heart score is high. Nursing staff was unable to place an IV and therefore ultrasound IV was placed by myself. The patient's EKG revealed isolated T-wave inversion in lead III, however otherwise no signs of acute ischemia. Chest x-ray showed no acute cardiopulmonary process. Patient's laboratory studies were remarkable for normal troponin. Remainder of his laboratory studies are unremarkable. COVID- 19 swab is negative. Reevaluation patient's blood pressure is improved on 2.5 mg an hour of Cardizem. Systolics are now 170 which is goal. Patient's headache and chest pain are improving. I spoke with the patient regarding his laboratory studies, imaging, symptoms Medical and like her admitted to the hospital. He was in agreement this plan. The patient has no PCP and therefore will be admitted; common and spoke the physician who accepted the patient. The patient will require ICU as he is on a Cardizem drip and therefore I contacted the iCU attending, Dr. Velazquez who accepted the patient. Also contacted cardiology optical fabrication technician Dr. Go, requested that we obtain CTA of the thorax to rule out aortic dissection. He also requested we start the patient on Norvasc 5 mg and metoprolol 12.5 mg. These orders were placed. CTA revealed no evidence of aortic dissection. 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 The patient was therefore admitted to the hospital in serous condition to the medical ICU for hypertensive emergency. - Lab Data Result diagrams: 05/15/21 17:11 05/15/21 17:11 Lab Results 05/15/21 05/15/21 05/15/21 Range/Units 17:11 17:11 17:11 WBC 3.3 L (3.8-10.6) k/uL RBC 4.41 (4.30-5.90) m/uL Hgb 12.5 L (13.0-17.5) gm/dL Hct 39.5 (39.0-53.0) % MCV 89.7 (80.0-100.0) fL MCH 28.4 (25.0-35.0) pg MCHC 31.7 (31.0-37.0) g/dL RDW 14.6 (11.5-15.5) % Plt Count 339 (150-450) k/uL MPV 6.2 Neutrophils % 58 % Lymphocytes % 32 % Monocytes % 7 % Eosinophils % 1 % Basophils % 1 % Neutrophils # 1.9 (1.3-7.7) k/uL Lymphocytes # 1.1 (1.0-4.8) k/uL Monocytes # 0.2 (0-1.0) k/uL Eosinophils # 0.0 (0-0.7) k/uL Basophils # 0.0 (0-0.2) k/uL PT 10.2 (9.0-12.0) sec INR 0.9 (<1.2) APTT 24.7 (22.0-30.0) sec Sodium 138 (137-145) mmol/L Potassium 4.4 (3.5-5.1) mmol/L Chloride 103 (98-107) mmol/L Carbon Dioxide 27 (22-30) mmol/L Anion Gap 8 mmol/L BUN 9 (9-20) mg/dL Creatinine 0.63 L (0.66-1.25) mg/dL Est GFR (CKD-EPI)AfAm >90 (>60 ml/min/1.73 sqM) Est GFR (CKD-EPI)NonAf >90 (>60 ml/min/1.73 sqM) Glucose 115 H (74-99) mg/dL Calcium 9.9 (8.4-10.2) mg/dL Magnesium 1.7 (1.6-2.3) mg/dL Total Bilirubin 0.4 (0.2-1.3) mg/dL AST 19 (17-59) U/L ALT 7 (4-49) U/L Alkaline Phosphatase 72 (38-126) U/L Troponin I (0.000-0.034) ng/mL Total Protein 7.0 (6.3-8.2) g/dL Albumin 4.4 (3.5-5.0) g/dL 05/15/21 Range/Units 17:11 WBC (3.8-10.6) k/uL RBC (4.30-5.90) m/uL Hgb (13.0-17.5) gm/dL Hct (39.0-53.0) % MCV (80.0-100.0) fL MCH (25.0-35.0) pg MCHC (31.0-37.0) g/dL RDW (11.5-15.5) % Plt Count (150-450) k/uL MPV Neutrophils % % Lymphocytes % % Monocytes % % Eosinophils % % Basophils % % Neutrophils # (1.3-7.7) k/uL Lymphocytes # (1.0-4.8) k/uL Monocytes # (0-1.0) k/uL Eosinophils # (0-0.7) k/uL Basophils # (0-0.2) k/uL PT (9.0-12.0) sec INR (<1.2) APTT (22.0-30.0) sec Sodium (137-145) mmol/L Potassium (3.5-5.1) mmol/L Chloride (98-107) mmol/L Carbon Dioxide (22-30) mmol/L Anion Gap mmol/L BUN (9-20) mg/dL Creatinine (0.66-1.25) mg/dL Est GFR (CKD-EPI)AfAm (>60 ml/min/1.73 sqM) Est GFR (CKD-EPI)NonAf (>60 ml/min/1.73 sqM) Glucose (74-99) mg/dL Calcium (8.4-10.2) mg/dL Magnesium (1.6-2.3) mg/dL Total Bilirubin (0.2-1.3) mg/dL AST (17-59) U/L ALT (4-49) U/L Alkaline Phosphatase (38-126) U/L Troponin I <0.012 (0.000-0.034) ng/mL Total Protein (6.3-8.2) g/dL Albumin (3.5-5.0) g/dL - EKG Data -: EKG Interpreted by Me EKG Comments: 12-lead Electrocardiogram Interpretation Note EKG was reviewed and interpreted by myself. 12-lead ECG performed at 1541 is interpreted by me as revealing normal sinus rhythm at a rate of 64 beats per mi nute. [place] is normal. UT interval is 166 seconds, QRS duration is 90 ms, QTC is 398 ms.. Patient does have an isolated T-wave inversion in lead III.. R wave progression across the precordium was satisfactory. By my interpretation this EKG is non-diagnostic for acute ischemia, with an isolated T-wave inversion in lead III.. Disposition Clinical Impression: Hypertensive emergency, Chest pain, Headache, Uncontrolled hypertension Disposition: ADMITTED IP TO THIS [facility] Condition: Serious
[2021-05-15] MEDS: niCARdipine 20 MG in SODIUM CHLORIDE 0.9% 192 ML IV SCH ×2 (17:12→22:41)
--- NOTE | 2021-05-15 17:33 | XR ---
EXAMINATION TYPE: XR chest 2V DATE OF EXAM: 05/15/2021 COMPARISON: 05/04/2021 HISTORY: Chest pain TECHNIQUE: FINDINGS: There is no heart failure nor confluent pneumonic infiltrate. Costophrenic angles are clear . There are no hilar masses. There are chest leads. Bony thorax is intact. IMPRESSION: No active cardiopulmonary disease. Normal heart. No change
[2021-05-15 17:34] LABS: Basophils % (A) 1 %; Eosinophils % (A) 1 %; HCT 39.5 % (39.0-53.0); HGB 12.5 gm/dL (13.0-17.5); Lymphocytes # (A) 1.1 k/uL (1.0-4.8); Lymphocytes % (A) 32 %; MCH 28.4 pg (25.0-35.0); MCHC 31.7 g/dL (31.0-37.0); MCV 89.7 fL (80.0-100.0); Mean Platelet Volume 6.2; Monocytes # (A) 0.2 k/uL (0-1.0); Monocytes % (A) 7 %; Neutrophils # (A) 1.9 k/uL (1.3-7.7); Neutrophils % (A) 58 %; Platelet Count 339 k/uL (150-450); RBC 4.41 m/uL (4.30-5.90); RDW 14.6 % (11.5-15.5); WBC 3.3 k/uL (3.8-10.6)
[2021-05-15 17:41] LABS: ALT 7 U/L (4-49); AST 19 U/L (17-59); African American GFR (CKD) >90 (>60 ml/min/1.73 sqM); Albumin 4.4 g/dL (3.5-5.0); Alkaline Phosphatase 72 U/L (38-126); Anion Gap 8 mmol/L; Blood Urea Nitrogen 9 mg/dL (9-20); Calcium 9.9 mg/dL (8.4-10.2); Carbon Dioxide 27 mmol/L (22-30); Chloride 103 mmol/L (98-107); Glucose 115 mg/dL (74-99); Magnesium 1.7 mg/dL (1.6-2.3); Non-African American GFR(CKD) >90 (>60 ml/min/1.73 sqM); Potassium 4.4 mmol/L (3.5-5.1); Sodium 138 mmol/L (137-145); Total Bilirubin 0.4 mg/dL (0.2-1.3)
[2021-05-15 17:52] LABS: INR 0.9 (<1.2); Partial Thromboplastin Time 24.7 sec (22.0-30.0); Prothrombin Time 10.2 sec (9.0-12.0)
[2021-05-15] MEDS ORDERED: MORPHINE SULFATE 4 MG/ML SYRINGE IVP STA (18:14)
[2021-05-15] MEDS ORDERED: METOPROLOL SUCCINATE (ER) 25 MG TAB.ER.24H PO STA (18:36)
[2021-05-15] MEDS ORDERED: amLODIPine 5 MG TAB PO STA (18:36)
[2021-05-15] MEDS ORDERED: NALOXONE 0.4 MG/ML 1 ML VIAL IV PRN (18:40)
[2021-05-15] MEDS ORDERED: ACETAMINOPHEN TAB 325 MG TAB PO PRN (18:40)
[2021-05-15] MEDS ORDERED: amLODIPine 5 MG TAB PO SCH (21:00)
[2021-05-15 21:03] LABS: Glucose,Whole Blood 101 mg/dL (75-99)
--- NOTE | 2021-05-15 21:06 | CT ---
EXAMINATION TYPE: CT angio thor/abd pel aorta DATE OF EXAM: 05/15/2021 COMPARISON: Chest CT scan 03/11/2020 HISTORY: Hypertension, chest pain. CT DLP: 903.2 mGycm Automated exposure control for dose reduction was used. CONTRAST: Performed with IV Contrast, patient injected with 100 mL of Isovue 370. Images obtained of the chest without contrast. Images obtained from the thoracic inlet to the floor t he pelvis with IV contrast and 3-D post processed images. There is normal branching pattern of the great vessels on the aortic arch. Thoracic aorta is atheroma tous. Ascending thoracic aorta measures 4 cm The arch. There is no dissection. There is no evidence of filling defect in the pulmonary arteries. T here is mild pleural thickening at the lung bases. There is some patchy atelectasis at the lung bases . Upper lung mian are clear. There is no pulmonary mass. There are no hilar masses. There is no media stinal adenopathy. There is no pericardial effusion. Heart size is fairly normal. Liver spleen stomach pancreas appear intact. The bile ducts are not dilated. There are clips from cho lecystectomy. There is no adrenal mass. Kidneys show satisfactory contrast opacification. There is no hydronephrosi s. There is multilevel laminectomy in the lower lumbar spine from L3 to S1. There is metal artifact w hich obscures the detail. The bladder distends smoothly. There is no inguinal hernia. There is no sonia e fluid in the pelvis. Appendix is posterior and appears normal. There is no mesenteric edema. There is no ascites or free air. There is no bowel obstruction. There is normal contrast opacification of the abdominal aorta. There is arterial flow in the celiac a rtery and superior mesenteric artery. There is arterial flow in both renal arteries. There is arteria l flow in the iliac and femoral arteries. There is mild plaque formation. No hemodynamic stenosis. No evidence of abdominal or pelvic arterial aneurysm or dissection. The thoracic vertebra have normal alignment. Lumbar vertebra have normal alignment. There is no compr ession fracture seen. Sternum is intact. The bony pelvis appears intact. IMPRESSION: No evidence of arterial dissection. 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 No evidence of pulmonary embolism. Mild pleural thickening and atelectasis at the lung bases not sign ificantly different than old exam.
[2021-05-15] MEDS: ATORVASTATIN 80 MG TAB PO SCH (21:56)
[2021-05-15] MEDS: MORPHINE SULFATE 4 MG/ML SYRINGE IV PRN (21:56)
[2021-05-15] MEDS: ONDANSETRON 4 MG/2 ML VIAL IVP PRN (21:56)
[2021-05-16] MEDS: HEPARIN SODIUM,PORCINE/PF 5,000 UNIT/0.5 ML SYRINGE SQ SCH ×4 (00:23→22:56)
--- NOTE | 2021-05-16 00:44 | P.HPIM ---
History of Present Illness H&P Date: 05/16/21 The patient is a 65-year-old male with a PMH of coronary artery disease, COPD, hypertension, hyperlipidemia, hypothyroidism who presented to the emergency room with complaints of shortness of breath and chest discomfort. The patient reports that he woke up at his usual time of 5 AM this morning and took his daily antihypertensives. He then began feeling dizzy at around 11 AM at which time he checked his blood pressure and found her to be systolic greater than 200. He continue to monitor his blood pressure which remained high and a few hours later, he developed left sided sharp chest discomfort, 8 out of 10, with radiation down to the left arm with associated nausea, diaphoresis, palpitati ons, shortness of breath. The patient reports that he became alarmed and subsequently came to the emergency room. She reported at time of interview that his pain had improved significantly, currently at a 2 out of 10. He denied experiencing headaches, weakness, numbness, tingling, visual disturbances. Denied cough, fever, chills, abdominal pain, diarrhea. 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 EKG revealed normal sinus rhythm at 64 bpm with T-wave inversions in leads 3, and V1 with poor R-wave progression. Laboratory evaluation was reviewed. Review of systems: Pertinent positives and negatives as discussed in HPI, a complete review of systems was performed and all other systems are negative. Physical examination: General: non toxic, no distress, appears at stated age, normal weight Derm: no unusual rashes/lesions no unusual ecchymoses, warm, dry Head: atraumatic, normocephalic, symmetric Eyes: EOMI, no lid lag, anicteric sclera, pupils equal round reactive to light ENT: Nose and ears atraumatic, no thrush, no pharyngeal erythema Neck: No thyromegaly, no cervical lymphadenopathy, trachea midline, supple Mouth: no lip lesion, mucus membranes moist Cardiovascular: S1S2 reg, no murmur, positive posterior tibial pulse bilateral, no edema, capillary refill less than 2 seconds Lungs: CTA bilateral, no rhonchi, no rales , no accessory muscle use Abdominal: soft, nontender to palpation, no guarding, no appreciable organomegaly, normal bowel sounds Ext: no gross muscle atrophy, muscle strength 3+ out of 5 in shay LEs, strength 5/5 in shay UEs, no contractures, Neuro: CN II-XI grossly intact, light touch intact all 4 extremities, finger to nose within normal limits, Psych: Alert, oriented, appropriate affect Assessment/plan Hypertensive emergency in setting of chest pain -Continue with nicardipine infusion -Nib Adjuster consulted -Continue with aspirin -Antiemetics LE weakness -Patient notes that it is chronic and unchanged. Notes that he uses a walker at home. Chronic conditions: COPD, hyperlipidemia, hypothyroidism -Continue home meds DVT prophylaxis -Heparin subq The patient is admitted with an anticipated greater than 2 midnight stay for evaluation of HTN emergency CODE STATUS: Full Code Discussed with: Patient Anticipated discharge date: 2-[address]: Home A total of 35 minutes was spent on the care of this complex patient more than 50% of the time was spent in counseling and care coordination. Past Medical History Past Medical History: Coronary Artery Disease (CAD), Chest Pain / Angina, COPD, Deep Vein Thrombosis (DVT), GERD/Reflux, Hyperlipidemia, Hypertension, Osteoarthritis (OA), Thyroid Disorder Additional Past Medical History / Comment(s): Occasional palpitations, gastritis, small hiatal hernia, diverticular dx, pt states years ago he had PUD, chronic low back pain, chronic pain syndrome, migraines, DVT L arm, numbness/tingling bilateral lower legs, bilateral past R hand fracture, arthritis multiple joints, hyperthyroid, sinus problems. History of Any Multi-Drug Resistant Organisms: None Reported Past Surgical History: Back Surgery, Cholecystectomy, Heart Catheterization With Stent, Orthopedic Surgery Additional Past Surgical History / Comment(s): EGDs/colonoscopies, multiple low back surgeries, bilateral arm and bilateral thigh surgeries for brown recluse spider bites with infection, morphine pain pump insertion and removal due to infection, PCI with stents, L rotator cuff repair, L knee arthroscopy, cervical fusion/cage, R cataract removal. 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 states he was "down for 8 minutes" Date of Last Stent Placement:: 10/12/17 Past Psychological History: No Psychological Hx Reported Additional Psychological History / Comment(s): Pt resides with his spouse. He uses a walker and cane to ambulate. He does not drive, neither does his spouse, they us the bus. Smoking Status: Former smoker Past Alcohol Use History: None Reported Additional Past Alcohol Use History / Comment(s): Pt started smoking in 1973 and quit in 1984 Past Drug Use History: None Reported - Past Family History Father Family Medical History: No Reported History Additional Family Medical History / Comment(s): Father had back problems. He lived to be 82 yrs old. Mother History Unknown: Yes Family Medical History: Hypertension, Myocardial Infarction ([place]) Additional Family Medical History / Comment(s): Mother of a [place] at the age of 55yrs. Brother(s) Family Medical History: Cancer, COPD Additional Family Medical History / Comment(s): Leukemia Medications and Allergies Home Medications Medication Instructions Recorded Confirmed Type Fluticasone Nasal [place] [Flonase 1 spray EA NOSTRIL BID 04/20/17 05/15/21 History Nasal [place]] Morphine Sulfate ER [Ms Contin] 30 mg PO Q8H 10/10/17 05/15/21 History Atorvastatin [Lipitor] 80 mg PO HS #30 tab 10/12/17 05/15/21 Rx tiZANidine [Zanaflex] 4 mg PO BID 02/26/18 05/15/21 History Ezetimibe [Zetia] 10 mg PO DAILY #30 tab 05/24/19 05/15/21 Rx Nitroglycerin Sl Tabs [Nitrostat] 0.4 mg SUBLINGUAL Q5M PRN #20 tab 07/02/19 05/15/21 Rx Aspirin EC [Ecotrin Low Dose] 81 mg PO DAILY 01/02/20 05/15/21 History carvediloL [Coreg*] 12.5 mg PO AC-BID 01/02/20 05/15/21 History oxyCODONE-APAP 10-325MG [Percocet 1 tab PO Q8H 01/02/20 05/15/21 History 10-325 mg] Prasugrel [Effient] 10 mg PO DAILY 08/06/20 05/15/21 History lisinopriL 40 mg PO DAILY 08/06/20 05/15/21 History Dicyclomine [Bentyl] 10 mg PO TID PRN 02/13/21 05/15/21 History Pregabalin 100 mg PO BID 02/22/21 05/15/21 History Prochlorperazine [Compazine] 10 mg PO Q6H PRN #12 tab 03/04/21 05/15/21 Rx amLODIPine [Norvasc] 5 mg PO BID 05/04/21 05/15/21 History Allergies Allergy/AdvReac Type Severity Reaction Status Date / Time ibuprofen [From Motrin] Allergy Rash/Hives Verified 05/15/21 15:23 ketorolac tromethamine Allergy Rash/Hives Verified 05/15/21 15:23 [From Toradol] Physical Exam Vitals: Vital Signs Temp Pulse Resp BP Pulse Ox 05/15/21 23:00 80 4 L 154/96 95 05/15/21 22:45 84 12 155/99 96 05/15/21 22:30 116 H 22 166/100 95 05/15/21 22:15 94 16 153/103 94 L 05/15/21 22:00 98.2 F 85 17 160/99 96 05/15/21 21:45 90 12 160/95 97 05/15/21 21:30 79 12 155/90 95 05/15/21 21:15 98.3 F 80 18 163/98 95 05/15/21 21:00 85 16 167/109 05/15/21 20:53 15 167/109 05/15/21 20:45 165/107 05/15/21 20:30 112 H 12 175/107 05/15/21 20:19 83 16 178/105 97 05/15/21 20:15 80 10 L 178/105 96 05/15/21 20:00 172/108 05/15/21 19:45 79 11 L 172/108 05/15/21 19:30 87 18 169/104 05/15/21 19:15 80 10 L 171/104 05/15/21 19:00 78 11 L 171/123 05/15/21 18:00 76 16 158/99 05/15/21 17:55 80 16 158/99 05/15/21 17:18 98.2 F 75 15 202/121 98 05/15/21 15:21 97.9 F 74 20 212/106 98 Intake and Output 05/15/21 05/15/21 05/16/21 14:59 22:59 06:59 Intake Total 237.917 Output Total 1100 Balance -862.083 Intake: IV 40 0.9 @ 20 40 Intake, IV Titration 197.917 Amount niCARdipine 20 mg In 197.917 Sodium Chloride 0.9% 192 ml @ 5 MG/HR 50 mls/hr IV .Q4H [facility] Rx#:[id number] Output: Urine 1100 Other: Weight 81.1 kg Results CBC & Chem 7: 05/15/21 17:11 05/15/21 17:11 Labs: Abnormal Lab Results - Last 24 Hours (Table) 05/15/21 05/15/21 05/15/21 Range/Units 17:11 17:11 20:52 WBC 3.3 L (3.8-10.6) k/uL Hgb 12.5 L (13.0-17.5) gm/dL Creatinine 0.63 L (0.66-1.25) mg/dL Glucose 115 H (74-99) mg/dL POC Glucose (mg/dL) 101 H (75-99) mg/dL Thrombosis Risk Factor Assmnt - Choose All That Apply Each Factor Represents 1 point: Abnormal pulmonary function (COPD) Other Risk Factors: Yes Each Risk Factor Represents 2 Points: Age 61-74 years Each Risk Factor Represents 3 Points: History of DVT/PE Thrombosis Risk Factor Assessment Total Risk Factor Score: 6 Thrombosis Risk Factor Assessment Level: High Risk
[2021-05-16] MEDS: MORPHINE SULFATE 4 MG/ML SYRINGE IV PRN ×6 (02:04→23:01)
[2021-05-16] MEDS: niCARdipine 20 MG in SODIUM CHLORIDE 0.9% 192 ML IV SCH ×3 (03:00→08:29)
[2021-05-16] MEDS: ONDANSETRON 4 MG/2 ML VIAL IVP PRN ×3 (04:15→20:00)
[2021-05-16 05:05] LABS: Basophils % (A) 0 %; Eosinophils # (A) 0.1 k/uL (0-0.7); Eosinophils % (A) 2 %; HCT 43.4 % (39.0-53.0); HGB 13.9 gm/dL (13.0-17.5); Lymphocytes # (A) 0.8 k/uL (1.0-4.8); Lymphocytes % (A) 18 %; MCH 28.5 pg (25.0-35.0); MCHC 32.1 g/dL (31.0-37.0); MCV 88.8 fL (80.0-100.0); Mean Platelet Volume 6.1; Monocytes # (A) 0.2 k/uL (0-1.0); Monocytes % (A) 5 %; Neutrophils # (A) 3.5 k/uL (1.3-7.7); Neutrophils % (A) 74 %; Platelet Count 383 k/uL (150-450); RBC 4.88 m/uL (4.30-5.90); RDW 14.4 % (11.5-15.5); WBC 4.7 k/uL (3.8-10.6)
[2021-05-16 05:13] LABS: ALT 9 U/L (4-49); AST 20 U/L (17-59); African American GFR (CKD) >90 (>60 ml/min/1.73 sqM); Albumin 4.8 g/dL (3.5-5.0); Alkaline Phosphatase 80 U/L (38-126); Anion Gap 10 mmol/L; Blood Urea Nitrogen 8 mg/dL (9-20); Carbon Dioxide 25 mmol/L (22-30); Chloride 99 mmol/L (98-107); Glucose 119 mg/dL (74-99); Magnesium 1.6 mg/dL (1.6-2.3); Non-African American GFR(CKD) >90 (>60 ml/min/1.73 sqM); Potassium 4.1 mmol/L (3.5-5.1); Sodium 134 mmol/L (137-145); Total Bilirubin 0.5 mg/dL (0.2-1.3); Total Protein 7.7 g/dL (6.3-8.2)
[2021-05-16] MEDS ORDERED: Magnesium Replacement Protocol 1 EACH MISC MISCELLANE PRN (05:16)
[2021-05-16] MEDS: MAGNESIUM SULFATE-D5W PMX 1 GM in DEXTROSE/WATER 1 100ML.BAG IVPB SCH ×2 (05:33→06:50)
[2021-05-16] MEDS: METOPROLOL TARTRATE 50 MG TAB PO SCH ×2 (06:56→20:00)
[2021-05-16] MEDS ORDERED: carvediloL 12.5 MG TAB PO SCH (07:30)
[2021-05-16] MEDS: amLODIPine 5 MG TAB PO SCH ×2 (08:31→20:00)
[2021-05-16] MEDS: lisinopriL 20 MG TAB PO SCH (08:31)
[2021-05-16] MEDS: ASPIRIN 81 MG PO SCH (08:31)
[2021-05-16] MEDS: PREGABALIN 100 MG CAP PO SCH ×2 (08:31→20:00)
[2021-05-16] MEDS: CLOPIDOGREL 75 MG TAB PO SCH (08:31)
[2021-05-16] MEDS ORDERED: PRASUGREL 10 MG TAB PO SCH (09:00)
--- NOTE | 2021-05-16 10:31 | P.PN ---
Subjective Progress Note Date: 05/16/21 Pt c/o abd pain, no flatus or BM, one episode of emesis. BPs are improved. Objective - Vital Signs Vital signs: Vital Signs Temp 97.8 F 05/16/21 04:00 Pulse 85 05/16/21 07:00 Resp 7 L 05/16/21 07:00 BP 160/100 05/16/21 07:00 Pulse Ox 94 L 05/16/21 07:00 Intake & Output 05/15/21 05/16/21 05/16/21 18:59 06:59 18:59 Intake Total 36.667 577.917 20 Output Total 1800 0 Balance 36.667 -1222.083 20 Weight 79.379 kg 81.1 kg Intake: IV 200 20 0.9 @ 20 200 20 Intake, IV Titration 36.667 377.917 Amount niCARdipine 20 mg In 36.667 377.917 Sodium Chloride 0.9% 192 ml @ 5 MG/HR 50 mls/hr IV .Q4H [facility] Rx#:[id number] Output: Urine 1800 0 - Exam Gen: awake, alert HEENT: normocephalic, atraumatic, good hearing acuity, moist mucous membranes Resp: good air exchange, breathing comfortably with no accessory muscle use, CTAB CVS: good distal perfusion x 4, RRR, no murmurs GI: bloated, TTP in epigastrum : no SPT, no CVAT, hobbs catheter not present MSK: no pitting edema, no clubbing Neuro: non-focal, moving all extremities Psych: cooperative, anxious mood - Labs CBC & Chem 7: 05/16/21 04:41 05/16/21 04:41 Labs: Abnormal Lab Results - Last 24 Hours (Table) 05/15/21 05/15/21 05/15/21 Range/Units 17:11 17:11 20:52 WBC 3.3 L (3.8-10.6) k/uL Hgb 12.5 L (13.0-17.5) gm/dL Lymphocytes # (1.0-4.8) k/uL Sodium (137-145) mmol/L BUN (9-20) mg/dL Creatinine 0.63 L (0.66-1.25) mg/dL Glucose 115 H (74-99) mg/dL POC Glucose (mg/dL) 101 H (75-99) mg/dL 05/16/21 05/16/21 Range/Units 04:41 04:41 WBC (3.8-10.6) k/uL Hgb (13.0-17.5) gm/dL Lymphocytes # 0.8 L (1.0-4.8) k/uL Sodium 134 L (137-145) mmol/L BUN 8 L (9-20) mg/dL Creatinine 0.47 L (0.66-1.25) mg/dL Glucose 119 H (74-99) mg/dL POC Glucose (mg/dL) (75-99) mg/dL Assessment and Plan Assessment: Hypertensive Emergency -Nicardipine offtitrated, can transfer patient to floor -Sales Representatives consulted -Continue with aspirin -Pts home meds restarted: amlodipine, lisinopril; titrate to target BP accordingly -Cardiology replaced patients coreg with metoprolol -Cardiology and Pulmonary following Abdominal Pain, Emesis -Abd XR to r/o SBO vs Ileus -nausea control -morphine PRN for pain control LE weakness -Patient notes that it is chronic and unchanged. Notes that he uses a walker at home. -Lyrica Chronic conditions: COPD, hyperlipidemia, hypothyroidism -Continue home meds DVT prophylaxis -Heparin subq CODE STATUS: Full Code Discussed with: Patient Anticipated discharge date: 2-[address]: Home
--- NOTE | 2021-05-16 12:16 | P.CNPUL ---
History of Present Illness Consult date: 05/16/21 Requesting physician: Viviane Chang Reason for consult: other (Hypertensive emergency and chest pain) Chief complaint: Shortness of breath and chest discomfort History of present illness: This is a 65-year-old white male with history of coronary artery disease, COPD, hypertension, hypothyroidism, patient presented to the ER yesterday with sudden onset of shortness of breath and chest discomfort. Patient woke up at 5 AM in the morning, and he took his usual blood pressure medications. Around 11 AM patient felt dizzy and he checked her blood pressure was over 200 systolic. Then the patient developed left-sided sharp chest discomfort 07/02. Pain was radiating to the left arm associated with nausea and diaphoresis and palpitations and shortness of breath. Arrived to the ER, and his blood pressure was still elevated in the 200 range. Patient was placed on a Cardene, he was also given hydralazine while in the ER, and admitted to the ICU on the Cardizem. Drip. His symptoms have significantly improved, I saw him this morning, patient is back on oral medications, and he is off nicardipine drip. CT angiogram showed no evidence of aortic dissection. 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 There was also no evidence of pulmonary embolism. EKG showed T-wave inversion in a few leads, poor R-wave progression. Patient was already seen by cardiology, and no plans at this point at least to consider cardiac catheterization. Labs today showed relatively normal CBC, normal electrolytes. And normal troponin. Chest x-ray showed no evidence of active disease. Review of Systems Constitutional: Negative HEENT: Negative Cardiac: As noted in HPI. Pulmonary: As noted in HPI. GI: Negative Genitourinary: Negative Muscular skeletal: Negative Skin: Negative Urologic: Negative Psychiatric: Negative Hematologic: Negative Past Medical History Past Medical History: Coronary Artery Disease (CAD), Chest Pain / Angina, COPD, Deep Vein Thrombosis (DVT), GERD/Reflux, Hyperlipidemia, Hypertension, Osteoarthritis (OA), Thyroid Disorder Additional Past Medical History / Comment(s): Occasional palpitations, gastritis, small hiatal hernia, diverticular dx, pt states years ago he had PUD, chronic low back pain, chronic pain syndrome, migraines, DVT L arm, numbness/tingling bilateral lower legs, bilateral past R hand fracture, arthritis multiple joints, hyperthyroid, sinus problems. History of Any Multi-Drug Resistant Organisms: None Reported Past Surgical History: Back Surgery, Cholecystectomy, Heart Catheterization With Stent, Orthopedic Surgery Additional Past Surgical History / Comment(s): EGDs/colonoscopies, multiple low back surgeries, bilateral arm and bilateral thigh surgeries for brown recluse spider bites with infection, morphine pain pump insertion and removal due to infection, PCI with stents, L rotator cuff repair, L knee arthroscopy, cervical fusion/cage, R cataract removal. 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 states he was "down for 8 minutes" Date of Last Stent Placement:: 10/12/17 Past Psychological History: No Psychological Hx Reported Additional Psychological History / Comment(s): Pt resides with his spouse. He uses a walker and cane to ambulate. He does not drive, neither does his spouse, they us the bus. Smoking Status: Former smoker Past Alcohol Use History: None Reported Additional Past Alcohol Use History / Comment(s): Pt started smoking in 1973 and quit in 1984 Past Drug Use History: None Reported - Past Family History Father Family Medical History: No Reported History Additional Family Medical History / Comment(s): Father had back problems. He lived to be 82 yrs old. Mother History Unknown: Yes Family Medical History: Hypertension, Myocardial Infarction ([place]) Additional Family Medical History / Comment(s): Mother of a [place] at the age of 55yrs. Brother(s) Family Medical History: Cancer, COPD Additional Family Medical History / Comment(s): Leukemia Medications and Allergies Home Medications Medication Instructions Recorded Confirmed Type Fluticasone Nasal [place] [Flonase 1 spray EA NOSTRIL BID 04/20/17 05/15/21 History Nasal [place]] Morphine Sulfate ER [Ms Contin] 30 mg PO Q8H 10/10/17 05/15/21 History Atorvastatin [Lipitor] 80 mg PO HS #30 tab 10/12/17 05/15/21 Rx tiZANidine [Zanaflex] 4 mg PO BID 02/26/18 05/15/21 History Ezetimibe [Zetia] 10 mg PO DAILY #30 tab 05/24/19 05/15/21 Rx Nitroglycerin Sl Tabs [Nitrostat] 0.4 mg SUBLINGUAL Q5M PRN #20 tab 07/02/19 05/15/21 Rx Aspirin EC [Ecotrin Low Dose] 81 mg PO DAILY 01/02/20 05/15/21 History carvediloL [Coreg*] 12.5 mg PO AC-BID 01/02/20 05/15/21 History oxyCODONE-APAP 10-325MG [Percocet 1 tab PO Q8H 01/02/20 05/15/21 History 10-325 mg] Prasugrel [Effient] 10 mg PO DAILY 08/06/20 05/15/21 History lisinopriL 40 mg PO DAILY 08/06/20 05/15/21 History Dicyclomine [Bentyl] 10 mg PO TID PRN 02/13/21 05/15/21 History Pregabalin 100 mg PO BID 02/22/21 05/15/21 History Prochlorperazine [Compazine] 10 mg PO Q6H PRN #12 tab 03/04/21 05/15/21 Rx amLODIPine [Norvasc] 5 mg PO BID 05/04/21 05/15/21 History Allergies Allergy/AdvReac Type Severity Reaction Status Date / Time ibuprofen [From Motrin] Allergy Rash/Hives Verified 05/15/21 15:23 ketorolac tromethamine Allergy Rash/Hives Verified 05/15/21 15:23 [From Toradol] Physical Exam Vitals: Vital Signs Temp Pulse Resp BP Pulse Ox 05/16/21 10:00 80 15 148/104 96 05/16/21 09:00 82 11 L 140/96 97 05/16/21 08:00 98.5 F 84 15 148/97 96 05/16/21 07:00 85 7 L 160/100 94 L 05/16/21 06:45 92 10 L 140/99 93 L 05/16/21 06:30 84 12 144/98 92 L 05/16/21 06:15 81 8 L 156/99 05/16/21 06:00 88 7 L 149/98 94 L 05/16/21 05:45 86 10 L 144/97 95 05/16/21 05:30 85 12 152/97 95 05/16/21 05:15 89 13 149/99 94 L 05/16/21 05:00 89 12 131/91 95 05/16/21 04:45 88 12 143/98 95 05/16/21 04:30 89 7 L 139/90 94 L 05/16/21 04:15 86 8 L 137/90 94 L 05/16/21 04:00 97.8 F 86 10 L 140/89 94 L 05/16/21 03:45 87 14 141/90 95 05/16/21 03:30 81 4 L 144/86 94 L 05/16/21 03:15 83 9 L 137/91 93 L 05/16/21 03:00 93 11 L 143/91 95 05/16/21 02:45 84 7 L 146/89 94 L 05/16/21 02:30 89 14 160/109 95 05/16/21 02:15 115 H 20 144/99 95 05/16/21 02:00 89 7 L 137/91 94 L 05/16/21 01:45 84 7 L 142/86 94 L 05/16/21 01:30 86 11 L 135/85 95 05/16/21 01:15 87 10 L 142/88 93 L 05/16/21 01:00 85 14 138/90 94 L 05/16/21 00:45 88 19 140/91 95 05/16/21 00:30 87 23 142/89 94 L 05/16/21 00:15 82 11 L 139/85 94 L 05/16/21 00:00 97.8 F 84 9 L 143/85 95 05/15/21 23:45 84 11 L 143/85 94 L 05/15/21 23:30 81 8 L 143/87 95 05/15/21 23:15 80 8 L 147/90 94 L 05/15/21 23:05 78 8 L 147/90 94 L 05/15/21 23:00 80 4 L 154/96 95 05/15/21 22:45 84 12 155/99 96 05/15/21 22:30 116 H 22 166/100 95 05/15/21 22:15 94 16 153/103 94 L 05/15/21 22:00 98.2 F 85 17 160/99 96 05/15/21 21:45 90 12 160/95 97 05/15/21 21:30 79 12 155/90 95 05/15/21 21:15 98.3 F 80 18 163/98 95 05/15/21 21:00 85 16 167/109 05/15/21 20:53 15 167/109 05/15/21 20:45 165/107 05/15/21 20:30 112 H 12 175/107 05/15/21 20:19 83 16 178/105 97 05/15/21 20:15 80 10 L 178/105 96 05/15/21 20:00 172/108 05/15/21 19:45 79 11 L 172/108 05/15/21 19:30 87 18 169/104 05/15/21 19:15 80 10 L 171/104 05/15/21 19:00 78 11 L 171/123 05/15/21 18:00 76 16 158/99 05/15/21 17:55 80 16 158/99 05/15/21 17:18 98.2 F 75 15 202/121 98 05/15/21 15:21 97.9 F 74 20 212/106 98 Intake and Output 05/15/21 05/16/21 05/16/21 22:59 06:59 14:59 Intake Total 237.917 376.667 260 Output Total 1100 700 0 Balance -862.083 -323.333 260 Intake: IV 40 160 60 0.9 @ 20 40 160 60 Intake, IV Titration 197.917 216.667 100 Amount Magnesium Sulfate-D5w Pmx 100 1 gm In Dextrose/Water 1 100ml.bag @ 100 mls/hr IVPB Q1H [facility] Rx#: [id number] niCARdipine 20 mg In 197.917 216.667 Sodium Chloride 0.9% 192 ml @ 5 MG/HR 50 mls/hr IV .Q4H [facility] Rx#:[id number] Oral 100 Output: Urine 1100 700 0 Other: Weight 81.1 kg 81.1 kg General: Revealed a 65-year-old white male in no distress. Derm: No evidence of any skin rashes. Head: Atraumatic, normocephalic. Eyes: EOMI, Jessica, nonicteric. Normal mucous membranes. ENT: Unremarkable. Neck: No neck masses no JVD no stridor Mouth: No evidence of mucositis no rashes and no thrush Cardiovascular: Distant S1 and S2, no gallops. No murmur. Lungs: Clear bilaterally no crackles or rhonchi or wheezes Abdominal: soft, nontender , no megaly no rebound no guarding. Ext: No clubbing edema or cyanosis, good pulses bilaterally. Neuro: Alert and oriented 3 focal deficit Psych: Normal mood affect and normal mental status examination. Results - Laboratory Findings CBC and BMP: 05/16/21 04:41 05/16/21 04:41 PT/INR, D-dimer PT 10.2 sec (9.0-12.0) 05/15/21 17:11 INR 0.9 (<1.2) 05/15/21 17:11 Abnormal lab findings: Abnormal Labs 05/15/21 05/15/21 05/15/21 17:11 17:11 20:52 WBC 3.3 L Hgb 12.5 L Lymphocytes # Sodium BUN Creatinine 0.63 L Glucose 115 H POC Glucose (mg/dL) 101 H 05/16/21 05/16/21 04:41 04:41 WBC Hgb Lymphocytes # 0.8 L Sodium 134 L BUN 8 L Creatinine 0.47 L Glucose 119 H POC Glucose (mg/dL) - Diagnostic Findings CT scan - chest: image reviewed (As noted in HPI.) Assessment and Plan Assessment: Impression: Hypertensive emergency in setting of chest pain/anginal symptoms. History of underlying COPD presently inactive. History of hypothyroidism. History of dyslipidemia. History of deep vein thrombosis. History of degenerative joint disease. History of coronary artery disease and previous stent placement. Patient normally sees Dr. BASILIA Go. Accommodation: Agree with the present treatment plan. Reviewed and discussed with the patient is present medications and his blood pressure seems to be fairly well controlled at present with his present medications is off nicardipine drip. Will transfer the patient to a cardiac floor. Cardiology to evaluate and decide whether the patient needs any further cardiac workup. We will continue to follow. Time with Patient: Greater than 30
[2021-05-16 12:45] VITALS: BMI 24.9
--- NOTE | 2021-05-16 19:37 | CONS ---
CONSULTATION This a 65-year-old gentleman with chronic back pain who is on pain medications and sees a pain clinic doctor. He has CAD with previous LAD diagonal stenting performed in 2017, which was patent in 2019. He also has history of hypertension. He came into the hospital, complains of having some headache and his blood pressure on arrival was quite high. A CT angio was performed, which did not reveal any significant aneurysm or dissection. His blood pressure has been controlled with a nicardipine drip. This morning he is asymptomatic, complains of some left arm pain which has resolved. His initial troponin is unremarkable. His blood pressure control has improved. He is resting comfortably without symptoms. PAST MEDICAL HISTORY: 1. CAD with prior stenting of LAD diagonal in September. 2. Hypertension. 3. Chronic back pain, on pain medications in the at a pain clinic in [place]. 4. Gastroesophageal reflux disease. 5. History of DVT in the past. 6. Status post cholecystectomy and back surgery. MEDICATIONS: Medications at home include Lipitor, amlodipine, Effient 10 mg daily, lisinopril 40 mg daily, Coreg 12.5 mg b.i.d., aspirin 81 mg daily, and he also takes oxycodone. ALLERGIES: He is allergic to TORADOL AND MOTRIN. PHYSICAL EXAMINATION: On examination, his blood pressure is 146/94, pulse rate is 90 per minute, regular. HEENT unremarkable. Fundus was not examined by me. Neck is supple. No JVD. I do not hear a carotid bruit. Heart exam reveals S1, S2 heard normally. No significant murmurs are detected. Lungs revealed decent air entry. Abdomen is soft. Lower extremities reveal diminished pulses. No edema. Central nervous system grossly within normal limits. EKG revealed sinus mechanism, no acute changes. LABORATORY DATA: His two sets of troponins are normal. Renal function is good. Hemoglobin is normal. IMPRESSION: 1. Accelerated hypertension, now under better control. 2. Coronary artery disease but no evidence to suggest any active ongoing myocardial ischemia. 3. Chronic back pain. RECOMMENDATIONS: I am recommending that we place him on a combination of Lopressor 50 mg b.i.d. and amlodipine 5 mg b.i.d., continue the Lipitor and also Plavix instead of Effient, increase activity and move him to telemetry unit. I discussed my thoughts with the patient. Advised that he should be compliant with medications. We will follow him closely. He has not kept appointments in the office, but promises to do so now. Thank you very much for the consultation. TATYANA / DEN: [phone] /
[2021-05-16] MEDS: ATORVASTATIN 80 MG TAB PO SCH (20:00)
[2021-05-16] MEDS ORDERED: METOCLOPRAMIDE 5 MG/ML 2 ML VIAL IVP PRN (22:02)
[2021-05-17 00:10] VITALS: TEMP 98.3
--- NOTE | 2021-05-17 00:34 | XR ---
EXAMINATION TYPE: XR abdomen acute w cxr DATE OF EXAM: 05/16/2021 COMPARISON: 02/13/2021 HISTORY: Bowel obstruction. Abdominal pain TECHNIQUE: 4 views FINDINGS: There is no heart failure nor confluent pneumonic infiltrate. There are chest leads. There is cervical spine fusion surgery. Costophrenic angles are clear. There is multilevel lumbar laminecto my and posterior fusion surgery. There is no sign of intestinal obstruction or pneumoperitoneum. Feca l pattern is fairly normal. There are chest leads. Bony pelvis is intact. There are no pathologic dorian cifications over the kidneys. There are clips from cholecystectomy. IMPRESSION: No active cardiopulmonary disease. Nonacute abdomen. No adverse change compared to old ex am.
[2021-05-17] MEDS: MORPHINE SULFATE 4 MG/ML SYRINGE IV PRN (03:02)
[2021-05-17] MEDS: METOPROLOL TARTRATE 50 MG TAB PO SCH (09:28)
[2021-05-17] MEDS: PREGABALIN 100 MG CAP PO SCH (09:28)
[2021-05-17] MEDS: ONDANSETRON 4 MG/2 ML VIAL IVP PRN (09:28)
[2021-05-17] MEDS: CLOPIDOGREL 75 MG TAB PO SCH (09:28)
[2021-05-17] MEDS: ASPIRIN 81 MG PO SCH (09:28)
[2021-05-17] MEDS: amLODIPine 5 MG TAB PO SCH (09:28)
[2021-05-17] MEDS: HEPARIN SODIUM,PORCINE/PF 5,000 UNIT/0.5 ML SYRINGE SQ SCH (09:28)
[2021-05-17 09:34] VITALS: RESP 16
[2021-05-17] MEDS ORDERED: MORPHINE SULFATE 2 MG/ML SYRINGE IVP STA (09:58)
[2021-05-17] MEDS ORDERED: MORPHINE SULFATE ER 30 MG TABLET PO SCH (10:00)
[2021-05-17] MEDS: lisinopriL 20 MG TAB PO SCH (10:08)
[2021-05-17 12:33] VITALS: BP 151/90; PULSE 85
--- NOTE | 2021-05-17 13:50 | P.DS ---
Providers Date of admission: 05/15/21 18:40 Expected date of discharge: 05/17/21 Attending physician: Viviane Chang Consults: 05/15/21 18:40 Consult Physician Stat Consulting Provider: Juliet Velazquez Consult Reason/Comments: Hypertensive emergency Do you want consulting provider notified?: Already Contacted Consult Physician Stat Consulting Provider: Fannie Go Consult Reason/Comments: Hypertensive emergency Do you want consulting provider notified?: Already Contacted Primary care physician: Stated None Hospital Course: The patient is a 65-year-old male with a PMH of coronary artery disease, COPD, hypertension, hyperlipidemia, hypothyroidism who presented to the emergency room with complaints of shortness of breath and chest discomfort. The patient reports that he woke up at his usual time of 5 AM this morning and took his daily antihypertensives. He then began feeling dizzy at around 11 AM at which time he checked his blood pressure and found her to be systolic greater than 200. He continue to monitor his blood pressure which remained high and a few hours later, he developed left sided sharp chest discomfort, 8 out of 10, with radiation down to the left arm with associated nausea, diaphoresis, palpitations, shortness of breath. The patient reports that he became alarmed and subsequently came to the emergency room. She reported at time of interview that his pain had improved significantly, currently at a 2 out of 10. He denied experiencing headaches, weakness, numbness, tingling, visual disturbances. Denied cough, fever, chills, abdominal pain, diarrhea. 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 EKG revealed normal sinus rhythm at 64 bpm with T-wave inversions in leads 3, and V1 with poor R-wave progression. Laboratory evaluation was reviewed. Hypertensive Emergency Patient was started on nicardipine drip, his home with pressure medications of amlodipine and lisinopril restarted. He was observed for several hours in the ICU, then stepdown after no longer requiring nicardipine. Cardiology consult on the patient and replace his home carvedilol with metoprolol. Patient's blood pressure ultimately improved to 129/77 by the day of discharge. Patient continued to report his chronic complaints of abdominal pain, nausea, but was able tolerate a diet. Patient was therefore discharged home with PCP follow-up. His new medication of metoprolol was sent to the pharmacy Abdominal Pain, Emesis As a consequence of patient's abdominal pain, on Abd XR to r/o SBO vs Ileus was obtained and was negative. Patient was provided with nausea and pain control. Overall, I have suspicion that his symptoms are secondary to either opiate withdrawal or dependence. Therefore, I recommended the patient discussed with this pain clinic regarding off titrating his opiate medications long-term. He was discharged with Zofran when necessary for nausea control. He was also returned to his home dosing of MS Contin LE weakness -Patient notes that it is chronic and unchanged. Notes that he uses a walker at home. -Lyrica continued while in the hospital -No changes to his home medications Chronic conditions: COPD, hyperlipidemia, hypothyroidism -No changes to his home medications except as above. I Spent 35 minutes coordinating this complex discharge. Assessment: Gen: awake, alert HEENT: normocephalic, atraumatic, good hearing acuity, moist mucous membranes Resp: good air exchange, breathing comfortably with no accessory muscle use, CTAB CVS: good distal perfusion x 4, RRR, no murmurs GI: bloated, TTP in epigastrum : no SPT, no CVAT, hobbs catheter not present MSK: no pitting edema, no clubbing Neuro: non-focal, moving all extremities Psych: cooperative, anxious mood Patient Condition at Discharge: Good Plan - Discharge Summary Discharge Rx Participant: No New Discharge Prescriptions: New Metoprolol Tartrate [Lopressor] 50 mg PO BID #60 tab Acetaminophen Tab [Tylenol] 650 mg PO Q4HR PRN tab PRN Reason: Fever And/Or Mild Pain Ondansetron HCl [Zofran] 4 mg PO Q8H PRN #30 tab PRN Reason: Nausea And Vomiting Continue Fluticasone Nasal [place] [Flonase Nasal [place]] 1 spray EA NOSTRIL BID Morphine Sulfate ER [Ms Contin] 30 mg PO Q8H Atorvastatin [Lipitor] 80 mg PO HS #30 tab tiZANidine [Zanaflex] 4 mg PO BID Ezetimibe [Zetia] 10 mg PO DAILY #30 tab Nitroglycerin Sl Tabs [Nitrostat] 0.4 mg SUBLINGUAL Q5M PRN #20 tab PRN Reason: Chest Pain oxyCODONE-APAP 10-325MG [Percocet 10-325 mg] 1 tab PO Q8H Aspirin EC [Ecotrin Low Dose] 81 mg PO DAILY lisinopriL 40 mg PO DAILY Prasugrel [Effient] 10 mg PO DAILY Prochlorperazine [Compazine] 10 mg PO Q6H PRN #12 tab PRN Reason: Nausea amLODIPine [Norvasc] 5 mg PO BID Dicyclomine [Bentyl] 10 mg PO TID PRN PRN Reason: IBS Pregabalin 100 mg PO BID Discontinued carvediloL [Coreg*] 12.5 mg PO AC-BID Discharge Medication List Fluticasone Nasal [place] [Flonase Nasal [place]] 1 spray EA NOSTRIL BID 04/20/17 [History] Morphine Sulfate ER [Ms Contin] 30 mg PO Q8H 10/10/17 [History] Atorvastatin [Lipitor] 80 mg PO HS #30 tab 10/12/17 [Rx] tiZANidine [Zanaflex] 4 mg PO BID 02/26/18 [History] Ezetimibe [Zetia] 10 mg PO DAILY #30 tab 05/24/19 [Rx] Nitroglycerin Sl Tabs [Nitrostat] 0.4 mg SUBLINGUAL Q5M PRN #20 tab 07/02/19 [Rx] Aspirin EC [Ecotrin Low Dose] 81 mg PO DAILY 01/02/20 [History] oxyCODONE-APAP 10-325MG [Percocet 10-325 mg] 1 tab PO Q8H 01/02/20 [History] Prasugrel [Effient] 10 mg PO DAILY 08/06/20 [History] lisinopriL 40 mg PO DAILY 08/06/20 [History] Dicyclomine [Bentyl] 10 mg PO TID PRN 02/13/21 [History] Pregabalin 100 mg PO BID 02/22/21 [History] Prochlorperazine [Compazine] 10 mg PO Q6H PRN #12 tab 03/04/21 [Rx] amLODIPine [Norvasc] 5 mg PO BID 05/04/21 [History] Acetaminophen Tab [Tylenol] 650 mg PO Q4HR PRN tab 05/17/21 [Rx] Metoprolol Tartrate [Lopressor] 50 mg PO BID #60 tab 05/17/21 [Rx] Ondansetron HCl [Zofran] 4 mg PO Q8H PRN #30 tab 05/17/21 [Rx] Follow up Appointment(s)/Referral(s): Fannie Go MD [Family Provider] - 2 Weeks (office will call you with appt. time) None,Stated [Primary Care Provider] - 1-2 days Patient Instructions/Handouts: Chest Pain (DC), Hypertension (DC) Discharge Disposition: HOME SELF-CARE
--- NOTE | 2021-05-18 08:52 | PN ---
PROGRESS NOTE Mr. Johnson is a gentleman with CAD, prior bifurcation stenting, hypertension hyperlipidemia. Came in with with accelerated hypertension. Also complained of back pain. Has some nausea today. He is feeling better. No chest pain. Troponins negative. Vitals are stable. Blood pressure control has improved. No JVD. S1-S2 heard normally. Lungs are clear. Abdominal, lower extremity exam unchanged. MMODL / IJN: [id number] /
== END 2021-05-17 13:50 | disposition home or self-care (01) | DRG 305 ==
LOC: EC 14:18 → 2SICU 18:40 → 3SCARD 05-16 20:54
PROVIDERS: ADMIT Internal Medicine; ATTEND Internal Medicine
DX: I16.1 Hypertensive emergency (principal); E03.9 Hypothyroidism, unspecified; E78.5 Hyperlipidemia, unspecified; I10 Essential (primary) hypertension; I25.10 Atherosclerotic heart disease of native coronary artery without angina pectoris; J44.9 Chronic obstructive pulmonary disease, unspecified; G43.909 Migraine, unspecified, not intractable, without status migrainosus; K29.70 Gastritis, unspecified, without bleeding; K44.9 Diaphragmatic hernia without obstruction or gangrene; R07.89 Other chest pain; Z20.822 Contact with and (suspected) exposure to COVID-19; R00.2 Palpitations; R11.2 Nausea with vomiting, unspecified; R61 Generalized hyperhidrosis; E05.90 Thyrotoxicosis, unspecified without thyrotoxic crisis or storm; K57.90 Diverticulosis of intestine, part unspecified, without perforation or abscess without bleeding; R53.1 Weakness; K21.9 Gastro-esophageal reflux disease without esophagitis; I71.2 Thoracic aortic aneurysm, without rupture; G89.4 Chronic pain syndrome; M54.5 Low back pain; R20.0 Anesthesia of skin; Z95.5 Presence of coronary angioplasty implant and graft; Z86.718 Personal history of other venous thrombosis and embolism; Z87.11 Personal history of peptic ulcer disease; Z87.891 Personal history of nicotine dependence; Z79.899 Other long term (current) drug therapy; Z79.82 Long term (current) use of aspirin; Z79.02 Long term (current) use of antithrombotics/antiplatelets; Z88.6 Allergy status to analgesic agent; Z88.5 Allergy status to narcotic agent; Z88.8 Allergy status to other drugs, medicaments and biological substances; Z90.49 Acquired absence of other specified parts of digestive tract; Z98.41 Cataract extraction status, right eye; Z98.1 Arthrodesis status; Z87.19 Personal history of other diseases of the digestive system; Z96.1 Presence of intraocular lens
CPT/HCPCS: 36415; 71046; 71275; 74022; 74174; 80053; 83735; 84484; 85025; 85610; 85730; 87635; 93005; 96374; 96376; 99285

== ENCOUNTER 2021-06-11 15:39 | Observation (INO) | payer MEDICARE, OTHER ==
[2021-06-11] MEDS ORDERED: ONDANSETRON 4 MG/2 ML VIAL IVP STA (16:18)
[2021-06-11] MEDS ORDERED: MORPHINE SULFATE 2 MG/ML SYRINGE IVP STA ×3 (16:18→20:28)
[2021-06-11] MEDS ORDERED: NITROGLYCERIN OINT 1 INCH/GM PACKET TOPICAL STA (16:18)
[2021-06-11] MEDS ORDERED: LABETALOL 5 MG/ML VIAL MDV IVP STA ×2 (16:19→19:31)
--- NOTE | 2021-06-11 16:25 | ED ---
Chest Pain HPI - General Chief Complaint: Chest Pain Stated Complaint: hypertension Time Seen by Provider: 06/11/21 16:12 Source: patient Mode of arrival: EMS Limitations: no limitations - History of Present Illness Initial Comments: This 65-year-old male presents with a complaint of chest pain and high blood pressure. He states that his blood pressure has been high today. He has a slight headache. His systolic was over 200. He describes a bilateral chest pain described as though somebody was standing on his chest. He has occasional shortness of breath as well as some mild nausea. He does have a history of previous cardiac disease and currently has 3 stents. His last stent was 3 years ago. His last stress test was likely within the past year. He follows up with Dr. Go from cardiology regularly. He did not miss any of his medication. There is no leg pain or swelling. No other complaints or modifying factors. He states that he does not currently have a family physician. - Related Data Home Medications Medication Instructions Recorded Confirmed Fluticasone Nasal [place] [Flonase 1 spray EA NOSTRIL BID 04/20/17 06/11/21 Nasal [place]] Morphine Sulfate ER [Ms Contin] 30 mg PO Q8H 10/10/17 06/11/21 tiZANidine [Zanaflex] 4 mg PO BID 02/26/18 06/11/21 Aspirin EC [Ecotrin Low Dose] 81 mg PO DAILY 01/02/20 06/11/21 oxyCODONE-APAP 10-325MG [Percocet 1 tab PO Q8H 01/02/20 06/11/21 10-325 mg] Prasugrel [Effient] 10 mg PO DAILY 08/06/20 06/11/21 lisinopriL 40 mg PO DAILY 08/06/20 06/11/21 Dicyclomine [Bentyl] 10 mg PO TID PRN 02/13/21 06/11/21 Pregabalin 100 mg PO BID 02/22/21 06/11/21 amLODIPine [Norvasc] 5 mg PO BID 05/04/21 06/11/21 Previous Rx's Medication Instructions Recorded Ezetimibe [Zetia] 10 mg PO DAILY #30 tab 05/24/19 Nitroglycerin Sl Tabs [Nitrostat] 0.4 mg SUBLINGUAL Q5M PRN #20 tab 07/02/19 Prochlorperazine [Compazine] 10 mg PO Q6H PRN #12 tab 03/04/21 Acetaminophen Tab [Tylenol] 650 mg PO Q4HR PRN tab 05/17/21 Metoprolol Tartrate [Lopressor] 50 mg PO BID #60 tab 05/17/21 Ondansetron HCl [Zofran] 4 mg PO Q8H PRN #30 tab 05/17/21 Allergies Allergy/AdvReac Type Severity Reaction Status Date / Time ibuprofen [From Motrin] Allergy Rash/Hives Verified 06/11/21 19:04 ketorolac tromethamine Allergy Rash/Hives Verified 06/11/21 19:04 [From Toradol] Review of Systems ROS Statement: Those systems with pertinent positive or pertinent negative responses have been documented in the HPI. ROS Other: All systems not noted in ROS Statement are negative. Past Medical History Past Medical History: Coronary Artery Disease (CAD), Chest Pain / Angina, COPD, Deep Vein Thrombosis (DVT), GERD/Reflux, Hyperlipidemia, Hypertension, Osteoarthritis (OA), Thyroid Disorder Additional Past Medical History / Comment(s): Occasional palpitations, gastritis, small hiatal hernia, diverticular dx, pt states years ago he had PUD, chronic low back pain, chronic pain syndrome, migraines, DVT L arm, numbness/tingling bilateral lower legs, bilateral past R hand fracture, arthritis multiple joints, hyperthyroid, sinus problems. History of Any Multi-Drug Resistant Organisms: None Reported Past Surgical History: Back Surgery, Cholecystectomy, Heart Catheterization With Stent, Orthopedic Surgery Additional Past Surgical History / Comment(s): EGDs/colonoscopies, multiple low back surgeries, bilateral arm and bilateral thigh surgeries for brown recluse spider bites with infection, morphine pain pump insertion and removal due to infection, PCI with stents, L rotator cuff repair, L knee arthroscopy, cervical fusion/cage, R cataract removal. 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 He lived to be 82 yrs old. Mother History Unknown: Yes Family Medical History: Hypertension, Myocardial Infarction (RI) Additional Family Medical History / Comment(s): Mother of a RI at the age of 55yrs. Brother(s) Family Medical History: Cancer, COPD Additional Family Medical History / Comment(s): Leukemia General Exam - General Exam Comments Initial Comments: GENERAL: The patient is well nourished and well hydrated. VITAL SIGNS: Heart rate, blood pressure, respiratory rate reviewed as recorded in nurse's notes. EYES: Pupils are round and reactive. Extraocular movements are intact. No conjunctival / lid redness or swelling. ENT: No external evidence of injury, swelling, or ecchymosis. Airway is patent. Throat is clear. NECK: Nontender. No swelling or evidence of injury. No subcutaneous emphysema. Trachea is midline. No thyroid mass. HEART: Regular rate and rhythm. Good peripheral pulses. LUNGS/CHEST: Breath sounds clear and equal bilaterally. No rales, rhonchi, or wheezes. No ecchymosis, subcutaneous emphysema, or tenderness. ABDOMEN: Abdomen soft without tenderness. No palpable masses or organomegaly. No peritoneal signs. No abdominal wall swelling or ecchymosis. EXTREMITIES: No extremity tenderness. Normal muscle tone and function. No thoracolumbar tenderness. NEUROLOGIC: Sensation is grossly intact. Cranial nerve exam reveals face is symmetrical, tongue is midline, speech is clear. SKIN: No abrasions or ecchymosis is noted. No induration or masses noted. PSYCHIATRIC: Alert and oriented. Appropriate behavior and judgment. Limitations: no limitations Course Vital Signs 06/11/21 06/11/21 06/11/21 15:48 16:10 17:16 Temperature 98.0 F Pulse Rate 69 66 Respiratory 20 20 Rate Blood Pressure 193/112 181/107 191/101 O2 Sat by Pulse 97 98 Oximetry 06/11/21 06/11/21 06/11/21 17:40 19:25 20:07 Temperature Pulse Rate 68 68 71 Respiratory 20 20 18 Rate Blood Pressure 172/96 149/123 185/122 O2 Sat by Pulse 94 L 96 97 Oximetry Chest Pain MDM - MDM The patient was seen and examined. All diagnostics were reviewed. There is some delay of IV administration has patient is very difficult to obtain IV. EKG shows normal sinus rhythm at a rate of 71. There is no acute ST-T wave changes identified. The TN interval is 170, QRS duration is 92, and the QTC intervals 434. Clonidine is ordered at 0.2 mg in the interim. Nitropaste is also ordered. Morphine was ordered intravenously. Aspirin is also ordered orally. There is some delay in obtaining remainder of labs as the blood apparently clotted and patient is a difficult blood draw. Thus far, troponin is negative and CBC does not show any acute abnormalities. The chest x-ray does not show any acute abnormalities. The patient continues to be hypertensive in complaint of headache and chest pain. He receives additional labetalol and morphine. He later receives additional dose of hydralazine intravenously and morphine intravenously. It is felt as though he would require admission to the hospital for further treatment. Case will be discussed with internal medicine in the near future. Disposition Clinical Impression: Chest pain, Headache, Nausea, Hypertensive crisis, Unstable angina Disposition: ADMITTED IP TO THIS [facility] Condition: Fair Is patient prescribed a controlled substance at d/c from ED?: No Referrals: None,Stated [Primary Care Provider] - 1-2 days Time of Disposition: 20:53 Decision Date: 06/11/21 Decision Time: 20:53
[2021-06-11] MEDS: cloNIDine HCL 0.1 MG TAB PO STA ×2 (16:52→17:09)
--- NOTE | 2021-06-11 17:39 | XR ---
EXAMINATION TYPE: XR chest 2V DATE OF EXAM: 06/11/2021 COMPARISON: 05/15/2021 HISTORY: Chest pain TECHNIQUE: FINDINGS: Heart and mediastinum are normal. Lungs are clear of infiltrate. There are chest leads. The re are no hilar masses. There is cervical spine fusion surgery. IMPRESSION: No active cardiopulmonary disease. Normal heart. No change.
[2021-06-11 18:40] LABS: Partial Thromboplastin Time 20.4 sec (22.0-30.0); Prothrombin Time 10.4 sec (9.0-12.0)
[2021-06-11 19:26] LABS: Basophils % (A) 1 %; Eosinophils # (A) 0.1 k/uL (0-0.7); Eosinophils % (A) 2 %; HCT 39.9 % (39.0-53.0); HGB 12.9 gm/dL (13.0-17.5); Lymphocytes # (A) 1.4 k/uL (1.0-4.8); Lymphocytes % (A) 28 %; MCH 29.9 pg (25.0-35.0); MCHC 32.3 g/dL (31.0-37.0); MCV 92.6 fL (80.0-100.0); Mean Platelet Volume 6.1; Monocytes # (A) 0.4 k/uL (0-1.0); Monocytes % (A) 7 %; Neutrophils # (A) 2.9 k/uL (1.3-7.7); Neutrophils % (A) 59 %; Platelet Count 392 k/uL (150-450); RBC 4.32 m/uL (4.30-5.90); RDW 15.4 % (11.5-15.5)
[2021-06-11 19:37] LABS: ALT 12 U/L (4-49); AST 30 U/L (17-59); African American GFR (CKD) >90 (>60 ml/min/1.73 sqM); Albumin 4.6 g/dL (3.5-5.0); Alkaline Phosphatase 67 U/L (38-126); Anion Gap 9 mmol/L; Blood Urea Nitrogen 10 mg/dL (9-20); Calcium 10.1 mg/dL (8.4-10.2); Carbon Dioxide 22 mmol/L (22-30); Chloride 107 mmol/L (98-107); Glucose 111 mg/dL (74-99); Lipase 24 U/L (23-300); Magnesium 1.9 mg/dL (1.6-2.3); Non-African American GFR(CKD) >90 (>60 ml/min/1.73 sqM); Sodium 138 mmol/L (137-145); Total Bilirubin 0.7 mg/dL (0.2-1.3); Total Protein 7.5 g/dL (6.3-8.2)
[2021-06-11] MEDS ORDERED: hydrALAZINE HCL 20 MG/ML 1 ML VIAL IVP STA (20:29)
[2021-06-11 20:33] LABS: Potassium 4.9 mmol/L (3.5-5.1)
[2021-06-11] MEDS ORDERED: ONDANSETRON 4 MG TAB PO PRN (20:56)
[2021-06-11] MEDS ORDERED: NITROGLYCERIN SL TABS 0.4 MG TAB SUBLINGUAL PRN (21:00)
[2021-06-11] MEDS ORDERED: DICYCLOMINE 10 MG CAP PO PRN (21:30)
[2021-06-11] MEDS ORDERED: METOCLOPRAMIDE 5 MG/ML 2 ML VIAL IVP STA (21:54)
[2021-06-11] MEDS ORDERED: PROCHLORPERAZINE 10 MG TAB PO PRN (22:00)
[2021-06-11] MEDS ORDERED: ACETAMINOPHEN TAB 325 MG TAB PO PRN (22:00)
--- NOTE | 2021-06-11 23:34 | P.HPIM ---
History of Present Illness H&P Date: 06/11/21 Chief Complaint: Chest pain 65-year-old male with coronary artery disease status post stents, COPD, hypertension, hyperlipidemia, hypothyroid Patient comes into the emergency department due to sudden onset chest pain he describes that he was saying doing nothing specific and suddenly started feeling left-sided chest pain radiating to his left arm and forearm pain was severe 8-10 out of 10 in severity sharp in nature associated with difficulty breathing and having headaches feeling anxious nauseated. He didn't wait long he checked his blood pressure and found it elevated in the 200 for which she decided to come to the hospital for evaluation he has been recently discharged from the hospital for similar problem and was supposed to follow up with cardiology as an ou tpatient. He otherwise denies any recent travel, denies any sick contacts coughing fevers or chills denies any GI bleeding. Blood work in the ED was unremarkable Chest x-ray showed no acute pathology EKG no acute ST changes Troponins were initially negative Review of Systems Pertinent positives as noted in HPI. All other systems were reviewed and are negative Past Medical History Past Medical History: Coronary Artery Disease (CAD), Chest Pain / Angina, COPD, Deep Vein Thrombosis (DVT), GERD/Reflux, Hyperlipidemia, Hypertension, Osteoarthritis (OA), Thyroid Disorder Additional Past Medical History / Comment(s): Occasional palpitations, gastritis, small hiatal hernia, diverticular dx, pt states years ago he had PUD, chronic low back pain, chronic pain syndrome, migraines, DVT L arm, numbness/t ingling bilateral lower legs, bilateral past R hand fracture, arthritis multiple joints, hyperthyroid, sinus problems. History of Any Multi-Drug Resistant Organisms: None Reported Past Surgical History: Back Surgery, Cholecystectomy, Heart Catheterization With Stent, Orthopedic Surgery Additional Past Surgical History / Comment(s): EGDs/colonoscopies, multiple low back surgeries, bilateral arm and bilateral thigh surgeries for brown recluse spider bites with infection, morphine pain pump insertion and removal due to inf ection, PCI with stents, L rotator cuff repair, L knee arthroscopy, cervical fusion/cage, R cataract removal. 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 He lived to be 82 yrs old. Mother History Unknown: Yes Family Medical History: Hypertension, Myocardial Infarction (CT) Additional Family Medical History / Comment(s): Mother of a CT at the age of 55yrs. Brother(s) Family Medical History: Cancer, COPD Additional Family Medical History / Comment(s): Leukemia Medications and Allergies Home Medications Medication Instructions Recorded Confirmed Type Fluticasone Nasal [place] [Flonase 1 spray EA NOSTRIL BID 04/20/17 06/11/21 H istory Nasal [place]] Morphine Sulfate ER [Ms Contin] 30 mg PO Q8H 10/10/17 06/11/21 History tiZANidine [Zanaflex] 4 mg PO BID 02/26/18 06/11/21 History Ezetimibe [Zetia] 10 mg PO DAILY #30 tab 05/24/19 06/11/21 Rx Nitroglycerin Sl Tabs [Nitrostat] 0.4 mg SUBLINGUAL Q5M PRN #20 tab 07/02/19 06/11/21 Rx Aspirin EC [Ecotrin Low Dose] 81 mg PO DAILY 01/02/20 06/11/21 History oxyCODONE-APAP 10-325MG [Percocet 1 tab PO Q8H 01/02/20 06/11/21 History 10-325 mg] Prasugrel [Effient] 10 mg PO DAILY 08/06/20 06/11/21 History lisinopriL 40 mg PO DAILY 08/06/20 06/11/21 History Dicyclomine [Bentyl] 10 mg PO TID PRN 02/13/21 06/11/21 History Pregabalin 100 mg PO BID 02/22/21 06/11/21 History Prochlorperazine [Compazine] 10 mg PO Q6H PRN #12 tab 03/04/21 06/11/21 Rx amLODIPine [Norvasc] 5 mg PO BID 05/04/21 06/11/21 History Acetaminophen Tab [Tylenol] 650 mg PO Q4HR PRN tab 05/17/21 06/11/21 Rx Metoprolol Tartrate [Lopressor] 50 mg PO BID #60 tab 05/17/21 06/11/21 Rx Ondansetron HCl [Zofran] 4 mg PO Q8H PRN #30 tab 05/17/21 06/11/21 Rx Allergies Allergy/AdvReac Type Severity Reaction Status Date / Time ibuprofen [From Motrin] Allergy Rash/Hives Verified 06/11/21 19:04 ketorolac tromethamine Allergy Rash/Hives Verified 06/11/21 19:04 [From Toradol] Physical Exam Vitals: Vital Signs Temp Pulse Resp BP Pulse Ox 06/11/21 22:20 78 20 173/102 98 06/11/21 21:51 93 20 175/113 98 06/11/21 21:20 80 20 118/114 97 06/11/21 21:10 78 20 205/117 97 06/11/21 20:07 71 18 185/122 97 06/11/21 19:25 68 20 149/123 96 06/11/21 17:40 68 20 172/96 94 L 06/11/21 17:16 66 20 191/101 98 06/11/21 16:10 181/107 06/11/21 15:48 98.0 F 69 20 193/112 97 Intake and Output 06/11/21 06/11/21 06/12/21 14:59 22:59 06:59 Other: Weight 79.379 kg Constitutional: No acute distress, conversant, pleasant Eyes: Anicteric sclerae, moist conjunctiva, Pupils equal round reactive to light ENMT: NC/AT Oropharynx clear, no erythema, or exudates Neck: Supple, FROM, no masses, or JVD No carotid bruits No thyromegaly Lungs: Clear to auscultation Clear to percussion Normal respiratory effort, no accessory muscle use Cardiovascular: Heart regular in rate and rhythm, No murmurs, gallops, or rubs No peripheral edema Abdominal: Soft Nontender, no guarding, rebound or rigidity Abdomen moving with respiration Normoactive bowel sounds No hepatomegaly, No splenomegaly No palpable mass No abdominal wall hernia noted Skin: Normal temperature, tone, texture, turgor No induration No subcutaneous nodules No rash, lesions No ulcers Extremities: No digital cyanosis No clubbing Pedal pulses intact and symmetrical Radial pulses intact and symmetrical No calf tenderness Psychiatric: Alert and oriented to person, place and time Appropriate affect fair judgement Neuro Muscles Strength 5/5 in all 4 extremities Sensation to light touch grossly present throughout Cranial nerves II-XII grossly intact No focal sensory deficits Lymphatics: no palpable cervical or supraclavicular , or inguinal lymph nodes Results CBC & Chem 7: 06/11/21 19:14 06/11/21 19:14 Labs: Abnormal Lab Results - Last 24 Hours (Table) 06/11/21 06/11/21 06/11/21 Range/Units 18:09 19:14 19:14 Hgb 12.9 L (13.0-17.5) gm/dL APTT 20.4 L (22.0-30.0) sec Creatinine 0.62 L (0.66-1.25) mg/dL Glucose 111 H (74-99) mg/dL Assessment and Plan Assessment: Atypical chest pain Hypertensive emergency Plan Resume blood pressure medications Add clonidine when necessary for systolic above 180 Trend troponins Cardiac monitoring Aspirin and statin Nitro for chest pain Cardiology consult EKG showed no acute ST changes Chronic conditions COPD Resume home medications Hypothyroidism levothyroxine Patient is full code Heparin subcu 3 times a day for DVT prophylaxis Anticipated length of stay less than 2 midnights Anticipated discharge to home
[2021-06-11] MEDS ORDERED: cloNIDine HCL 0.2 MG TAB PO PRN (23:35)
[2021-06-12] MEDS: PANTOPRAZOLE 40 MG TABLET PO SCH ×3 (00:59→17:24)
[2021-06-12] MEDS: PREGABALIN 100 MG CAP PO SCH ×2 (00:59→17:03)
[2021-06-12] MEDS: FLUTICASONE 50MCG/SPRAY NASAL 16GM EA NOSTRIL SCH ×2 (01:00→17:02)
[2021-06-12] MEDS: HYDROmorphone 0.5 MG/0.5 ML SYRINGE IVP PRN ×4 (01:00→21:40)
[2021-06-12] MEDS: amLODIPine 5 MG TAB PO SCH ×2 (01:00→17:02)
[2021-06-12] MEDS: METOPROLOL TARTRATE 50 MG TAB PO SCH ×2 (01:00→17:03)
[2021-06-12] MEDS: tiZANidine 4 MG TAB PO SCH ×2 (01:00→17:03)
[2021-06-12] MEDS: oxyCODONE-APAP 10-325MG 1 EACH TAB PO SCH ×3 (01:05→17:03)
[2021-06-12] MEDS: MORPHINE SULFATE ER 30 MG TABLET PO SCH ×3 (01:05→17:04)
[2021-06-12] MEDS: NITROGLYCERIN OINT 1 INCH/GM PACKET TOPICAL SCH ×2 (01:05→06:05)
[2021-06-12 05:10] VITALS: RESP 16
[2021-06-12] MEDS: ONDANSETRON 4 MG/2 ML VIAL IVP PRN ×3 (05:12→21:41)
[2021-06-12] MEDS ORDERED: ASPIRIN 325 MG TAB PO SCH (09:00)
[2021-06-12] MEDS ORDERED: PROCHLORPERAZINE INJ 10 MG/2 ML VIAL IVP PRN (09:28)
[2021-06-12] MEDS: METOCLOPRAMIDE 5 MG/ML 2 ML VIAL IVP SCH ×2 (09:49→17:39)
[2021-06-12] MEDS: ENOXAPARIN 40 MG/0.4 ML SYRINGE SQ SCH (09:50)
--- NOTE | 2021-06-12 10:23 | P.CRDCN ---
History of Present Illness History of present illness: HISTORY OF PRESENTING ILLNESS This is a pleasant 65-year-old -Domin[place] male past medical history significant for coronary artery disease status post PCI of the LAD 2016, history of DVT, COPD, hypertension, dyslipidemia and chronic pain. He follows in the office with Dr. Go. We have been asked to see in consultation for chest pain and hypertension. He presented to the hospital secondary to nausea, chest pain and elevated blood pressure. Blood pressure on arrival is 193/112 with a heart rate of 69. He states his chest feels like a pressure like someone is standing on it. He is nauseated and somewhat short of breath. He states he is compliant with his medications. He has been to the hospital multiple times with similar complaints. Most recently in mid April he was here and had a Lexiscan stress test that was negative for reversibility. Most recent cardiac catheterization 2018 revealed patent stents in the previously stented LAD, left main free of significant disease, RCA free of significant disease and circumflex artery free of significant disease. Most recent echocardiogram obtained April 2020 revealed preserved LV systolic function with ejection fraction 55-60%, trace mitral regurgitation and mild tricuspid regurgitation. DIAGNOSTICS EKG reveals sinus mechanism heart rate of [address] or T wave abnormalities noted. Telemetry tracings indicate sinus mechanism with no acute arrhythmia or significant pauses. Chest xray negative for an acute cardiopulmonary process. Laboratory reviewed, WBC 5, hemoglobin 12.9, platelets 392, sodium 138, pot assium 4.9, creatinine 0.62, magnesium 1.9, cardiac enzymes negative 3, and T proBNP 102. Current cardiac medications include aspirin 81 mg daily, Zetia 10 mg daily, Lopressor 50 mg twice a day, Effient 10 mg daily, amlodipine 5 mg twice a day and lisinopril 40 mg daily. REVIEW OF SYSTEMS At the time of my exam: CONSTITUTIONAL: Denies fever or chills. CARDIOVASCULAR: Denies chest pain, shortness of breath, orthopnea, PND or palpitations. RESPIRATORY: Denies cough. GASTROINTESTINAL: Denies abdominal pain, diarrhea, constipation, nausea or vomiting. MUSCULOSKELETAL: Denies myalgias. NEUROLOGIC: Denies numbness, tingling, headacbe or weakness. ENDOCRINE: Denies fatigue, weight change, polydipsia or polyurina. GENITOURINARY: Denies burning, hematuria or urgency with micturation. HEMATOLOGIC: Denies history of anemia or bleeding. PHYSICAL EXAMINATION Blood pressure 169/94 heart rate 89 afebrile and maintaining oxygen saturation on room air. CONSTITUTIONAL: No apparent distress. HEENT: Head is normocephalic. Pupils are equal, round. Sclerae anicteric. Mucous membranes of the mouth are moist. No JVD. No carotid bruit. CHEST EXAMINATION: Lungs are clear to auscultation. No chest wall tenderness is noted on palpation or with deep breathing. HEART EXAMINATION: Regular rate and rhythm. S1, S2 heard. No murmurs, gallops or rub. ABDOMEN: Soft, nontender. Positive bowel sounds. EXTREMITIES: 2+ peripheral pulses, no lower extremity edema and no calf tenderness. NEUROLOGIC EXAMINATION: Patient is awake, alert and oriented x3. ASSESSMENT Hypertensive urgency Chest pain, atypical Coronary artery disease status post PCI to the LAD 2017 Dyslipidemia COPD History of DVT PLAN An acute coronary event has been ruled out. Add hydralazine 50 mg 3 times a day to his regimen for optimal blood pressure control. Recent stress testing reviewed with the patient. Obtain 2-D echocardiogram and Doppler study to assess cardiac structure and function. Follow-up with Dr. Go as previously established on June 19. Thank you kindly for this consultation. Nurse Practitioner note has been reviewed, I agree with a documented findings and plan of care. Patient was seen and examined. Past Medical History Past Medical History: Coronary Artery Disease (CAD), Chest Pain / Angina, COPD, Deep Vein Thrombosis (DVT), GERD/Reflux, Hyperlipidemia, Hypertension, Osteoarthritis (OA), Thyroid Disorder Additional Past Medical History / Comment(s): Occasional palpitations, gastritis, small hiatal hernia, diverticular dx, pt states years ago he had PUD, chronic low back pain, chronic pain syndrome, migraines, DVT L arm, numbnes s/tingling bilateral lower legs, bilateral past R hand fracture, arthritis multiple joints, hyperthyroid, sinus problems. History of Any Multi-Drug Resistant Organisms: None Reported Past Surgical History: Back Surgery, Cholecystectomy, Heart Catheterization With Stent, Orthopedic Surgery Additional Past Surgical History / Comment(s): EGDs/colonoscopies, multiple low back surgeries, bilateral arm and bilateral thigh surgeries for brown recluse spider bites with infection, morphine pain pump insertion and removal due to infection, PCI with stents, L rotator cuff repair, L knee arthroscopy, cervical fusion/cage, R cataract removal. 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 He lived to be 82 yrs old. Mother History Unknown: Yes Family Medical History: Hypertension, Myocardial Infarction (MT) Additional Family Medical History / Comment(s): Mother of a MT at the age of 55yrs. Brother(s) Family Medical History: Cancer, COPD Additional Family Medical History / Comment(s): Leukemia Medications and Allergies Home Medications Medication Instructions Recorded Confirmed Type Fluticasone Nasal [place] [Flonase 1 spray EA NOSTRIL BID 04/20/17 06/11/21 History Nasal [place]] Morphine Sulfate ER [Ms Contin] 30 mg PO Q8H 10/10/17 06/11/21 History tiZANidine [Zanaflex] 4 mg PO BID 02/26/18 06/11/21 History Ezetimibe [Zetia] 10 mg PO DAILY #30 tab 05/24/19 06/11/21 Rx Nitroglycerin Sl Tabs [Nitrostat] 0.4 mg SUBLINGUAL Q5M PRN #20 tab 07/02/19 06/11/21 Rx Aspirin EC [Ecotrin Low Dose] 81 mg PO DAILY 01/02/20 06/11/21 History oxyCODONE-APAP 10-325MG [Percocet 1 tab PO Q8H 01/02/20 06/11/21 History 10-325 mg] Prasugrel [Effient] 10 mg PO DAILY 08/06/20 06/11/21 History lisinopriL 40 mg PO DAILY 08/06/20 06/11/21 History Dicyclomine [Bentyl] 10 mg PO TID PRN 02/13/21 06/11/21 History Pregabalin 100 mg PO BID 02/22/21 06/11/21 History Prochlorperazine [Compazine] 10 mg PO Q6H PRN #12 tab 03/04/21 06/11/21 Rx amLODIPine [Norvasc] 5 mg PO BID 05/04/21 06/11/21 History Acetaminophen Tab [Tylenol] 650 mg PO Q4HR PRN tab 05/17/21 06/11/21 Rx Metoprolol Tartrate [Lopressor] 50 mg PO BID #60 tab 05/17/21 06/11/21 Rx Ondansetron HCl [Zofran] 4 mg PO Q8H PRN #30 tab 05/17/21 06/11/21 Rx Allergies Allergy/AdvReac Type Severity Reaction Status Date / Time ibuprofen [From Motrin] Allergy Rash/Hives Verified 06/11/21 19:04 ketorolac tromethamine Allergy Rash/Hives Verified 06/11/21 19:04 [From Toradol] Physical Exam Vitals: Vital Signs Temp Pulse Pulse Resp BP BP BP 06/12/21 07:00 98.3 F 89 16 169/94 06/12/21 05:09 81 16 177/86 06/12/21 00:00 97.5 F L 75 20 184/101 06/11/21 22:20 78 20 173/102 06/11/21 21:51 93 20 175/113 06/11/21 21:20 80 20 118/114 06/11/21 21:10 78 20 205/117 06/11/21 20:07 71 18 185/122 06/11/21 19:25 68 20 149/123 06/11/21 17:40 68 20 172/96 06/11/21 17:16 66 20 191/101 06/11/21 16:10 181/107 06/11/21 15:48 98.0 F 69 20 193/112 Pulse Ox 06/12/21 07:00 97 06/12/21 05:09 97 06/12/21 00:00 99 06/11/21 22:20 98 06/11/21 21:51 98 06/11/21 21:20 97 06/11/21 21:10 97 06/11/21 20:07 97 06/11/21 19:25 96 06/11/21 17:40 94 L 06/11/21 17:16 98 06/11/21 16:10 06/11/21 15:48 97 Intake and Output 06/11/21 06/12/2106/12/21 22:59 06:59 14:59 Output Total 600 300 Balance -600 -300 Output: Urine 600 300 Other: # Voids 0 1 Weight 79.379 kg 79.379 kg Results 06/11/21 19:14 06/11/21 19:14 Cardiac Enzymes 06/11/21 06/11/21 06/11/21 Range/Units 18:09 19:14 20:21 AST 30 (17-59) U/L Troponin I <0.012 <0.012 (0.000-0.034) ng/mL 06/12/21 Range/Units 00:21 AST (17-59) U/L Troponin I <0.012 (0.000-0.034) ng/mL Coagulation 06/11/21 Range/Units 18:09 PT 10.4 (9.0-12.0) sec APTT 20.4 L (22.0-30.0) sec CBC 06/11/21 Range/Units 19:14 WBC 5.0 (3.8-10.6) k/uL RBC 4.32 (4.30-5.90) m/uL Hgb 12.9 L (13.0-17.5) gm/dL Hct 39.9 (39.0-53.0) % Plt Count 392 (150-450) k/uL Comprehensive Metabolic Panel 06/11/21 Range/Units 19:14 Sodium 138 (137-145) mmol/L Potassium 4.9 (3.5-5.1) mmol/L Chloride 107 (98-107) mmol/L Carbon Dioxide 22 (22-30) mmol/L BUN 10 (9-20) mg/dL Creatinine 0.62 L (0.66-1.25) mg/dL Glucose 111 H (74-99) mg/dL Calcium 10.1 (8.4-10.2) mg/dL AST 30 (17-59) U/L ALT 12 (4-49) U/L Alkaline Phosphatase 67 (38-126) U/L Total Protein 7.5 (6.3-8.2) g/dL Albumin 4.6 (3.5-5.0) g/dL Current Medications Generic Name Dose Route Start Last Admin Trade Name Freq PRN Reason Stop Dose Admin Acetaminophen 650 mg 06/11/21 22:00 Acetaminophen Tab 325 Mg Tab PO Q4HR PRN Fever and/or Mild Pain Amlodipine Besylate 5 mg 06/11/21 21:30 06/12/21 01:00 Amlodipine 5 Mg Tab PO 5 mg BID YESICA Administration Aspirin 325 mg 06/12/21 09:00 Aspirin 325 Mg Tab PO DAILY YESICA Clonidine 0.2 mg 06/11/21 23:35 Clonidine Hcl 0.2 Mg Tab PO QID PRN Blood Pressure - High Dicyclomine HCl 10 mg 06/11/21 21:30 Dicyclomine 10 Mg Cap PO TID PRN IBS Ezetimibe 10 mg 06/12/21 09:00 Ezetimibe 10 Mg Tab PO DAILY [facility] Enoxaparin Sodium 40 mg 06/12/21 09:00 06/12/21 09:50 Enoxaparin 40 Mg/0.4 Ml Syringe SQ 40 mg DAILY [facility] Administration Fluticasone Propionate 1 spray 06/11/21 22:00 06/12/21 01:00 Fluticasone 50mcg/[place] Nasal 16gm EA NOSTRIL 1 spray BID [facility] Administration Hydralazine HCl 50 mg 06/12/21 09:00 Hydralazine Hcl 50 Mg Tab PO TID [facility] Hydromorphone HCl 0.5 mg 06/11/21 23:37 06/12/21 07:29 Hydromorphone 0.5 Mg/0.5 Ml Syringe IVP 0.5 mg Q6HR PRN Administration Pain Lisinopril 40 mg 06/12/21 09:00 Lisinopril 20 Mg Tab PO DAILY [facility] Metoclopramide HCl 10 mg 06/12/21 12:00 06/12/21 09:49 Metoclopramide 5 Mg/Ml 2 Ml Vial IVP 10 mg Q6HR YESICA Administration Metoprolol Tartrate 50 mg 06/11/21 21:30 06/12/21 01:00 Metoprolol Tartrate 50 Mg Tab PO 50 mg BID [facility] Administration Morphine Sulfate 30 mg 06/11/21 22:00 06/12/21 06:05 Morphine Sulfate Er 30 Mg Tablet PO Not Given Q8H [facility] Protocol Nitroglycerin 0.4 mg 06/11/21 21:00 Nitroglycerin Sl Tabs 0.4 Mg Tab SUBLINGUAL Q5M PRN Chest Pain Nitroglycerin 1 inch 06/12/21 00:00 06/12/21 06:05 Nitroglycerin Oint 1 Inch/Gm Packet TOPICAL Not Given Q6HR YESICA Ondansetron HCl 4 mg 06/11/21 20:56 Ondansetron 4 Mg Tab PO Q8H PRN Nausea And Vomiting Ondansetron HCl 4 mg 06/11/21 23:53 06/12/21 05:12 Ondansetron 4 Mg/2 Ml Vial IVP 4 mg Q6HR PRN Administration Nausea And Vomiting Oxycodone/Acetaminophen 1 each 06/11/21 21:30 06/12/21 05:45 Oxycodone-Apap 10-325mg 1 Each Tab PO Not Given Q8H YESICA Pantoprazole Sodium 40 mg 06/11/21 23:45 06/12/21 07:32 Pantoprazole 40 Mg Tablet PO 40 mg AC-BID YESICA Administration Prasugrel 10 mg 06/12/21 09:00 Prasugrel 10 Mg Tab PO DAILY YESICA Pregabalin 100 mg 06/11/21 21:00 06/12/21 00:59 Pregabalin 100 Mg Cap PO 100 mg BID YESICA Administration Prochlorperazine Maleate 10 mg 06/11/21 22:00 06/12/21 08:33 Prochlorperazine 10 Mg Tab PO 10 mg Q6H PRN Administration Nausea Tizanidine HCl 4 mg 06/11/21 21:30 06/12/21 01:00 Tizanidine 4 Mg Tab PO 4 mg BID YESICA Administration Intake and Output 06/11/21 06/12/21 06/12/21 22:59 06:59 14:59 Output Total 600 300 Balance -600 -300 Output: Urine 600 300 Other: # Voids 0 1 Weight 79.379 kg 79.379 kg 06/11/21 19:14 06/11/21 19:14
[2021-06-12 12:09] LABS: Chol/HDL Ratio 3.68; LDL Cholesterol,Calculated 144.2 mg/dL (0.0-131.0); VLDL Calculation 21.8 mg/dL (5.00-40.00)
--- NOTE | 2021-06-12 13:01 | ECHOF ---
Referral Reason:cp MEASUREMENTS -------- HEIGHT: 180.3 cm WEIGHT: 79.4 kg BP: 169/94 RVIDd: 4.3 cm (< 3.3) IVSd: 1.7 cm (0.6 - 1.1) LVIDd: 3.9 cm (3.9 - 5.3) LVPWd: 1.3 cm (0.6 - 1.1) IVSs: 2.1 cm LVIDs: 1.8 cm LVPWs: 2.6 cm LAESV Index (A-L): 34.81 ml/m Ao Diam: 3.3 cm (2.0 - 3.7) AV Cusp: 2.0 cm (1.5 - 2.6) LA Diam: 4.1 cm (2.7 - 3.8) MV E Héctor: 0.55 m/s MV DecT: 170 ms MV A Héctor: 0.80 m/s MV E/A Ratio: 0.69 RAP: 5.00 mmHg RVSP: 28.66 mmHg FINDINGS -------- Sinus rhythm. This was a technically adequate study. The left ventricular size is normal. There is moderate concentric left ventricular hypertrophy. O verall left ventricular systolic function is normal with, an EF between 55 - 60 %. The diastolic fi lling pattern is normal for the age of the patient 6.74. The right ventricle is moderately enlarged. LA is moderately dilated 34-39 ml/m2 The right atrium is mildly enlarged. Interatrial and interventricular septum intact. There is no evidence of aortic regurgitation. There is no evidence of aortic stenosis. Mild mitral regurgitation is present. Mild tricuspid regurgitation present. There is no evidence of pulmonary hypertension. The right v entricular systolic pressure, as measured by Doppler, is 28.66mmHg. There is no pulmonic regurgitation present. The aortic root size is normal. IVC Not well visulized. There is no pericardial effusion. CONCLUSIONS -------- 1. The left ventricular size is normal. 2. There is moderate concentric left ventricular hypertrophy. 3. Overall left ventricular systolic function is normal with, an EF between 55 - 60 %. 4. The right ventricle is moderately enlarged. 5. LA is moderately dilated 34-39 ml/m2 6. The right atrium is mildly enlarged. 7. Mild mitral regurgitation is present. 8. Mild tricuspid regurgitation present. CAN FILLING MACHINE OPERATOR: Clarissa Car RDCS
--- NOTE | 2021-06-12 13:32 | P.PN ---
Subjective Progress Note Date: 06/12/21 Hospital course: Patient is a 65-year-old male with a past medical history of CAD with stents on Effient and aspirin, hypertension, hyperlipidemia, COPD not on home oxygen dependent, and GERD who presented to the ER with a chief complaint of chest pain on 06/11/21. This pain to his left anterior chest was reported to come on suddenly at rest and radiating into left shoulder and down the left arm. Chest x-ray completed negative for acute cardiopulmonary process. EKG showing normal sinus rhythm at 71 bpm with no noted T-wave or ST abnormalities. Troponins trended 3 negative at less than 0.012. CBC and BMP otherwise unremarkable. Patient is admitted under our services consult to cardiology. Echocardiogram pending results. Physical exam: Patient seen and fully evaluated at the bedside this morning. Patient reports continued persistent nausea and vomiting despite being given antibiotics Zofran and Compazine. Additional antiemetic ordered at this time Reglan. Lipid profile also resulted elevated with a total cholesterol 228 and elevated LDL of 144.2 patient started on atorvastatin 80 mg nightly. Patient currently reports resolution of chest pain stating he only remains nauseous. Patient had 2 e pisodes of emesis this morning. Patient denies headache, lightheadedness, dizziness, palpitations, shortness of breath, or experiencing any numbness/tingling/weakness in his extremities. Vital signs reviewed and stable. General: Nontoxic, no distress and appears stated age. Derm: Skin warm and dry, normal coloration for ethnicity. Head: Atraumatic, normocephalic and symmetric. Eyes: EOMs intact, no lid lag, and anicteric sclera Mouth: no lip lesions, mucus membranes moist Cardiovascular: regular rate and rhythm with normal S1S2, no murmur, positive posterior tibial pulses bilaterally, and cap refill < 2 seconds. Lungs: Respirations even, regular, and unlabored on room air. Lungs CTA bilaterally, no rhonchi, no rales, no wheezing, and no accessory muscle usage. Abdominal: soft, nontender to palpation, no guarding, no appreciable organomegaly Ext: ROM intact. No gross muscle atrophy, no edema, no contractures Neuro: Speech clear, face symmetrical and CN II-XII grossly intact with no noted focal neuro deficits Psych: Alert and oriented to person, place, time, and situation. Appropriate and pleasant affect. Assessment and Plan of Care: Atypical chest pain with history of CAD with stents, acute coronary event ruled out - EKG showing normal sinus rhythm at 71 bpm with no noted T-wave or ST abnormalities. -Troponins trended 3 negative at less than 0.012. -Echocardiogram pending results -Cardiology following -Telemetry monitoring -Daily aspirin, Norvasc, lisinopril, metoprolol, atorvastatin, and zetia. -Lipid profile revealing an elevated total cholesterol of 228 and elevated LDL of 144.2. Patient started on atorvastatin 80 mg nightly. -Heart healthy diet Hypertensive urgency -Patient presented with blood pressure as high as 205/117. -Patient started on hydralazine 50 mg 3 times daily in addition to lisinopril and metoprolol. -Monitor vital signs closely. Hyperlipidemia -Lipid profile revealing an elevated total cholesterol 228 and elevated LDL of 144.2. Patient started on atorvastatin 80 mg nightly. -Heart healthy diet. GERD -GI prophylaxis with Protonix 40 mg twice daily with meals CODE STATUS: Full code DVT prophylaxis: Lovenox Discussed with: Patient and RN Anticipated discharge date: 1-[address]: Home A total of 45 minutes was spent on the care of this complex patient more than 50% of the time was spent in counseling and care coordination. Objective - Vital Signs Vital signs: Vital Signs Temp 98.3 F 06/12/21 07:00 Pulse 89 06/12/21 07:00 Resp 16 06/12/21 07:00 BP 169/94 06/12/21 07:00 Pulse Ox 97 06/12/21 07:00 Intake & Output 06/11/21 06/12/21 06/12/21 18:59 06:59 18:59 Output Total 600 300 Balance -600 -300 Weight 79.379 kg 79.379 kg Output: Urine 600 300 Other: # Voids 0 1 - Labs CBC & Chem 7: 06/11/21 19:14 06/11/21 19:14 Labs: Abnormal Lab Results - Last 24 Hours (Table) 06/11/21 06/11/21 06/11/21 Range/Units 18:09 19:14 19:14 Hgb 12.9 L (13.0-17.5) gm/dL APTT 20.4 L (22.0-30.0) sec Creatinine 0.62 L (0.66-1.25) mg/dL Glucose 111 H (74-99) mg/dL Cholesterol (0-200) mg/dL LDL Cholesterol, Calc (0.0-131.0) mg/dL HDL Cholesterol (40.0-60.0) mg/dL 06/12/21 Range/Units 05:26 Hgb (13.0-17.5) gm/dL APTT (22.0-30.0) sec Creatinine (0.66-1.25) mg/dL Glucose (74-99) mg/dL Cholesterol 228 H (0-200) mg/dL LDL Cholesterol, Calc 144.2 H (0.0-131.0) mg/dL HDL Cholesterol 62.0 H (40.0-60.0) mg/dL
[2021-06-12] MEDS: EZETIMIBE 10 MG TAB PO SCH (17:02)
[2021-06-12] MEDS: lisinopriL 20 MG TAB PO SCH (17:03)
[2021-06-12] MEDS: hydrALAZINE HCL 50 MG TAB PO SCH ×2 (17:03→17:04)
[2021-06-12] MEDS: PRASUGREL 10 MG TAB PO SCH (17:03)
[2021-06-12] MEDS ORDERED: ATORVASTATIN 80 MG TAB PO SCH (21:00)
[2021-06-13] MEDS: hydrALAZINE HCL 50 MG TAB PO SCH ×2 (00:54→07:05)
[2021-06-13] MEDS: METOCLOPRAMIDE 5 MG/ML 2 ML VIAL IVP SCH ×3 (00:54→07:12)
[2021-06-13] MEDS: METOPROLOL TARTRATE 50 MG TAB PO SCH ×2 (03:42→07:04)
[2021-06-13] MEDS: amLODIPine 5 MG TAB PO SCH ×2 (03:42→07:03)
[2021-06-13] MEDS: PREGABALIN 100 MG CAP PO SCH ×2 (03:42→07:03)
[2021-06-13] MEDS: FLUTICASONE 50MCG/SPRAY NASAL 16GM EA NOSTRIL SCH ×2 (03:42→07:05)
[2021-06-13] MEDS: tiZANidine 4 MG TAB PO SCH ×2 (03:42→07:12)
[2021-06-13] MEDS: MORPHINE SULFATE ER 30 MG TABLET PO SCH ×2 (03:43→05:48)
[2021-06-13] MEDS: oxyCODONE-APAP 10-325MG 1 EACH TAB PO SCH ×3 (03:43→08:53)
[2021-06-13] MEDS: NITROGLYCERIN OINT 1 INCH/GM PACKET TOPICAL SCH (03:45)
[2021-06-13] MEDS: lisinopriL 20 MG TAB PO SCH (07:03)
[2021-06-13] MEDS: PANTOPRAZOLE 40 MG TABLET PO SCH (07:04)
[2021-06-13] MEDS: ENOXAPARIN 40 MG/0.4 ML SYRINGE SQ SCH (07:05)
[2021-06-13] MEDS: EZETIMIBE 10 MG TAB PO SCH (07:05)
[2021-06-13] MEDS: PRASUGREL 10 MG TAB PO SCH (07:06)
[2021-06-13] MEDS: HYDROmorphone 0.5 MG/0.5 ML SYRINGE IVP PRN (07:09)
[2021-06-13 07:50] VITALS: BP 162/87; PULSE 99; TEMP 98.1
--- NOTE | 2021-06-13 08:31 | P.DS ---
Providers Date of admission: 06/11/21 21:28 Expected date of discharge: 06/13/21 Attending physician: Leticia Darby MD Consults: 06/11/21 20:54 Consult Physician Urgent Consulting Provider: Klaus Felipe Consult Reason/Comments: cp, htn Do you want consulting provider notified?: Yes Primary care physician: Stated None Hospital Course: Discharge Diagnosis: Atypical chest pain with history of CAD with stents, acute coronary event ruled out Hypertensive urgency Hyperlipidemia GERD Chronic pain Hospital Course: Patient is a 65-year-old male with a past medical history of CAD with stents on Effient and aspirin, hypertension, hyperlipidemia, COPD not on home oxygen dependent, and GERD who presented to the ER with a chief complaint of chest pain on 06/11/21 and was also found to be in a hypertensive urgency with blood pressure as high as 205/117.. Patient reported pain to his left anterior chest was reported to come on suddenly at rest and radiating into left shoulder and down the left arm. Chest x-ray completed negative for acute cardiopulmonary process. EKG showing normal sinus rhythm at 71 bpm with no noted T-wave or ST abnormalities. Troponins trended 3 were negative at less than 0.012. CBC and BMP otherwise unremarkable.Echocardiogram revealing a normal ejection fraction between 55-60% with mild mitral and tricuspid regurgitation. Acute coronary event was ruled out. Lipid profile revealed an elevated total cholesterol of 228 and an elevated LDL of 144.2. Patient was started on atorvastatin. Due to presenting hypertensive emergency pt was also started on hydralazine 50 mg 3 times daily in addition to his daily antihypertensive medication regimen including lisinopril, amlodipine, and metoprolol. Patient's condition improved, vital signs stable. Patient cleared from cardiac standpoint and medically stable for discharge home. Patient to follow-up with PCP in 1-2 days and cardiology in 1 week. Strongly encouraged to take medications as directed without missing any doses. Physical exam: Patient seen and fully evaluated at the bedside this morning. Patient denies headache, lightheadedness, dizziness, chest pain, palpitations, shortness of breath, abdominal pain, nausea, vomiting, or experiencing any numbness/tingling/weakness in his extremities. Vital signs reviewed and stable. General: Nontoxic, no distress and appears stated age. Derm: Skin warm and dry, normal coloration for ethnicity. Head: Atraumatic, normocephalic and symmetric. Eyes: EOMs intact, no lid lag, and anicteric sclera Mouth: no lip lesions, mucus membranes moist Cardiovascular: regular rate and rhythm with normal S1S2, no murmur, positive posterior tibial pulses bilaterally, and cap refill < 2 seconds. Lungs: Respirations even, regular, and unlabored on room air. Lungs CTA bilaterally, no rhonchi, no rales, no wheezing, and no accessory muscle usage. Abdominal: soft, nontender to palpation, no guarding, no appreciable organomegaly Ext: ROM intact. No gross muscle atrophy, no edema, no contractures Neuro: Speech clear, face symmetrical and CN II-XII grossly intact with no noted focal neuro deficits Psych: Alert and oriented to person, place, time, and situation. Appropriate and pleasant affect. A total of 45 minutes of time were spent preparing this complex discharge summary. Patient Condition at Discharge: Stable Plan - Discharge Summary Discharge Rx Participant: No New Discharge Prescriptions: New hydrALAZINE HCL [Apresoline] 50 mg PO TID 30 Days #90 tab Atorvastatin [Lipitor] 80 mg PO HS 30 Days #30 tab Continue Fluticasone Nasal [place] [Flonase Nasal [place]] 1 spray EA NOSTRIL BID Morphine Sulfate ER [Ms Contin] 30 mg PO Q8H tiZANidine [Zanaflex] 4 mg PO BID Ezetimibe [Zetia] 10 mg PO DAILY #30 tab Nitroglycerin Sl Tabs [Nitrostat] 0.4 mg SUBLINGUAL Q5M PRN #20 tab PRN Reason: Chest Pain oxyCODONE-APAP 10-325MG [Percocet 10-325 mg] 1 tab PO Q8H Aspirin EC [Ecotrin Low Dose] 81 mg PO DAILY lisinopriL 40 mg PO DAILY Prasugrel [Effient] 10 mg PO DAILY Prochlorperazine [Compazine] 10 mg PO Q6H PRN #12 tab PRN Reason: Nausea amLODIPine [Norvasc] 5 mg PO BID Metoprolol Tartrate [Lopressor] 50 mg PO BID #60 tab Dicyclomine [Bentyl] 10 mg PO TID PRN PRN Reason: IBS Pregabalin 100 mg PO BID Acetaminophen Tab [Tylenol] 650 mg PO Q4HR PRN tab PRN Reason: Fever And/Or Mild Pain Ondansetron HCl [Zofran] 4 mg PO Q8H PRN #30 tab PRN Reason: Nausea And Vomiting Discharge Medication List Fluticasone Nasal [place] [Flonase Nasal [place]] 1 spray EA NOSTRIL BID 04/20/17 [History] Morphine Sulfate ER [Ms Contin] 30 mg PO Q8H 10/10/17 [History] tiZANidine [Zanaflex] 4 mg PO BID 02/26/18 [History] Ezetimibe [Zetia] 10 mg PO DAILY #30 tab 05/24/19 [Rx] Nitroglycerin Sl Tabs [Nitrostat] 0.4 mg SUBLINGUAL Q5M PRN #20 tab 07/02/19 [Rx] Aspirin EC [Ecotrin Low Dose] 81 mg PO DAILY 01/02/20 [History] oxyCODONE-APAP 10-325MG [Percocet 10-325 mg] 1 tab PO Q8H 01/02/20 [History] Prasugrel [Effient] 10 mg PO DAILY 08/06/20 [History] lisinopriL 40 mg PO DAILY 08/06/20 [History] Dicyclomine [Bentyl] 10 mg PO TID PRN 02/13/21 [History] Pregabalin 100 mg PO BID 02/22/21 [History] Prochlorperazine [Compazine] 10 mg PO Q6H PRN #12 tab 03/04/21 [Rx] amLODIPine [Norvasc] 5 mg PO BID 05/04/21 [History] Acetaminophen Tab [Tylenol] 650 mg PO Q4HR PRN tab 05/17/21 [Rx] Metoprolol Tartrate [Lopressor] 50 mg PO BID #60 tab 05/17/21 [Rx] Ondansetron HCl [Zofran] 4 mg PO Q8H PRN #30 tab 05/17/21 [Rx] Atorvastatin [Lipitor] 80 mg PO HS 30 Days #30 tab 06/13/21 [Rx] hydrALAZINE HCL [Apresoline] 50 mg PO TID 30 Days #90 tab 06/13/21 [Rx] Follow up Appointment(s)/Referral(s): Fannie Go MD [STAFF PHYSICIAN] - 06/26/21 3:15 pm None,Stated [Primary Care Provider] - 1-2 Days Patient Instructions/Handouts: Heart Healthy Diet (DC), Hypertension (DC) Activity/Diet/Wound Care/Special Instructions: Activity: As tolerated. Take breaks as needed. Diet: Heart healthy and carb consistent diet. Avoid salt, or foods with hidden salts. Extra salt makes your heart work harder and traps the fluid in your body for longer. Special Instructions: Take all of your medications as directed. NEVER skip a dose. And remember to keep all of your doctor's appointments and follow-up as needed. Discharge Disposition: HOME SELF-CARE
[2021-06-13] MEDS ORDERED: ASPIRIN 81 MG PO SCH (09:00)
== END 2021-06-13 09:33 | disposition home or self-care (01) ==
LOC: EC 15:39 → 6NMEDSUR 21:28
PROVIDERS: ADMIT Internal Medicine; ATTEND Internal Medicine
DX: R07.89 Other chest pain (principal); I16.1 Hypertensive emergency; I10 Essential (primary) hypertension; E03.9 Hypothyroidism, unspecified; K21.9 Gastro-esophageal reflux disease without esophagitis; E78.5 Hyperlipidemia, unspecified; I25.10 Atherosclerotic heart disease of native coronary artery without angina pectoris; J44.9 Chronic obstructive pulmonary disease, unspecified; M19.90 Unspecified osteoarthritis, unspecified site; G89.4 Chronic pain syndrome; M54.5 Low back pain; R51.9 Headache, unspecified; E05.90 Thyrotoxicosis, unspecified without thyrotoxic crisis or storm; K44.9 Diaphragmatic hernia without obstruction or gangrene; R20.2 Paresthesia of skin; R20.0 Anesthesia of skin; Z98.41 Cataract extraction status, right eye; Z79.02 Long term (current) use of antithrombotics/antiplatelets; Z79.82 Long term (current) use of aspirin; Z79.899 Other long term (current) drug therapy; Z88.6 Allergy status to analgesic agent; Z87.891 Personal history of nicotine dependence; Z95.5 Presence of coronary angioplasty implant and graft; Z90.49 Acquired absence of other specified parts of digestive tract; Z86.718 Personal history of other venous thrombosis and embolism; Z86.69 Personal history of other diseases of the nervous system and sense organs; Z87.11 Personal history of peptic ulcer disease; Z87.81 Personal history of (healed) traumatic fracture; Z98.1 Arthrodesis status; Z80.6 Family history of leukemia; Z82.5 Family history of asthma and other chronic lower respiratory diseases; Z82.49 Family history of ischemic heart disease and other diseases of the circulatory system; Z83.6 Family history of other diseases of the respiratory system
CPT/HCPCS: 96376 ×3; 96372 ×2; 96375 ×2; 96374; 99285; 36415; 93005; 93306; 83880; 80061; 80053; 83690; 83735; 84484 ×2; 85025; 85610; 85730; 71046; G0378 ×3; S0183; J0360; J2765 ×3; J2405 ×2; J1650 ×2; J2270; J1170 ×2

== ENCOUNTER 2021-06-17 16:36 | Emergency (ER) | payer MEDICARE, OTHER ==
[2021-06-17 16:56] VITALS: RESP 18; TEMP 98.6
[2021-06-17] MEDS ORDERED: ONDANSETRON 4 MG ODT STARTER PACK 2 TAB BTL PO STA (17:27)
--- NOTE | 2021-06-17 17:40 | ED ---
Recheck HPI - General Chief Complaint: Recheck/Abnormal Lab/Rx Stated Complaint: High BP Time Seen by Provider: 06/17/21 16:55 Source: patient, EMS Mode of arrival: EMS Limitations: no limitations - History of Present Illness Initial Comments: Salomon is a 65-year-old gentleman with extensive past medical history recent admission for hypertensive emergency during which admission he had his antihypertensive change. Patient states he's on to oral antihypertensives which he takes 3 times daily what is twice daily. He states he took his morning and afternoon doses of medications today. He states he checked his blood pressure was greater than 200 systolic so he called the ambulance. Patient denies any chest pain palpitations shortness of breath. He denies any headache. He does state he has chronic nausea is bothering him today. No other acute complaints. - Related Data Home Medications Medication Instructions Recorded Confirmed Fluticasone Nasal [place] [Flonase 1 spray EA NOSTRIL BID 04/20/17 06/11/21 Nasal [place]] Morphine Sulfate ER [Ms Contin] 30 mg PO Q8H 10/10/17 06/11/21 tiZANidine [Zanaflex] 4 mg PO BID 02/26/18 06/11/21 Aspirin EC [Ecotrin Low Dose] 81 mg PO DAILY 01/02/20 06/11/21 oxyCODONE-APAP 10-325MG [Percocet 1 tab PO Q8H 01/02/20 06/11/21 10-325 mg] Prasugrel [Effient] 10 mg PO DAILY 08/06/20 06/11/21 lisinopriL 40 mg PO DAILY 08/06/20 06/11/21 Dicyclomine [Bentyl] 10 mg PO TID PRN 02/13/21 06/11/21 Pregabalin 100 mg PO BID 02/22/21 06/11/21 amLODIPine [Norvasc] 5 mg PO BID 05/04/21 06/11/21 Previous Rx's Medication Instructions Recorded Ezetimibe [Zetia] 10 mg PO DAILY #30 tab 05/24/19 Nitroglycerin Sl Tabs [Nitrostat] 0.4 mg SUBLINGUAL Q5M PRN #20 tab 07/02/19 Prochlorperazine [Compazine] 10 mg PO Q6H PRN #12 tab 03/04/21 Acetaminophen Tab [Tylenol] 650 mg PO Q4HR PRN tab 05/17/21 Metoprolol Tartrate [Lopressor] 50 mg PO BID #60 tab 05/17/21 Ondansetron HCl [Zofran] 4 mg PO Q8H PRN #30 tab 05/17/21 Atorvastatin [Lipitor] 80 mg PO HS 30 Days #30 tab 06/13/21 hydrALAZINE HCL [Apresoline] 50 mg PO TID 30 Days #90 tab 06/13/21 Allergies Allergy/AdvReac Type Severity Reaction Status Date / Time ibuprofen [From Motrin] Allergy Rash/Hives Verified 06/17/21 16:56 ketorolac tromethamine Allergy Rash/Hives Verified 06/17/21 16:56 [From Toradol] Review of Systems ROS Statement: Those systems with pertinent positive or pertinent negative responses have been documented in the HPI. ROS Other: All systems not noted in ROS Statement are negative. Past Medical History Past Medical History: Coronary Artery Disease (CAD), Chest Pain / Angina, COPD, Deep Vein Thrombosis (DVT), GERD/Reflux, Hyperlipidemia, Hypertension, Osteoarthritis (OA), Thyroid Disorder Additional Past Medical History / Comment(s): Occasional palpitations, gastritis, small hiatal hernia, diverticular dx, pt states years ago he had PUD, chronic low back pain, chronic pain syndrome, migraines, DVT L arm, numbness/tingling bilateral lower legs, bilateral past R hand fracture, arthritis multiple joints, hyperthyroid, sinus problems. History of Any Multi-Drug Resistant Organisms: None Reported Past Surgical History: Back Surgery, Cholecystectomy, Heart Catheterization With Stent, Orthopedic Surgery Additional Past Surgical History / Comment(s): EGDs/colonoscopies, multiple low back surgeries, bilateral arm and bilateral thigh surgeries for brown recluse spider bites with infection, morphine pain pump insertion and removal due to infection, PCI with stents, L rotator cuff repair, L knee arthroscopy, cervical fusion/cage, R cataract removal. 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 He lived to be 82 yrs old. Mother History Unknown: Yes Family Medical History: Hypertension, Myocardial Infarction ([place]) Additional Family Medical History / Comment(s): Mother of a [place] at the age of 55yrs. Brother(s) Family Medical History: Cancer, COPD Additional Family Medical History / Comment(s): Leukemia General Exam - General Exam Comments Initial Comments: Physical Exam GENERAL: Patient is well-developed and well-nourished. Patient is nontoxic and well-hydrated and is in no distress. HENT: Normocephalic, Atraumatic. EYES: PERRL, EOMI PULMONARY: Unlabored respirations. 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 Blood pressure from EMS was elevated but stable. Blood pressure here again elevated but nodded alarming rate nothing compared to his previous hospitalizations for hypertensive emergency. I attempted to recycled the blood pressure cuff and noted that the patient was flexing his muscle. I then left the room. I did give the patient Zofran for his chronic nausea. Patient's blood pressure remained in a minimally elevated patient was discharged home in stable condition. Disposition Clinical Impression: Hypertension Disposition: HOME SELF-CARE Condition: Stable Additional Instructions: Continue to take your BP medications as prescribed and follow up with Cardiology. Return to the ER for any chest pain, shortness of breath, increased blood pressure that does not improve with blood pressure medications or development of any new or concerning symptoms. Is patient prescribed a controlled substance at d/c from ED?: No Referrals: None,Stated [Primary Care Provider] - 1-2 days
[2021-06-17 17:44] VITALS: PULSE 101
[2021-06-17 17:46] VITALS: BP 152/97
== END 2021-06-17 17:50 | disposition home or self-care (01) ==
LOC: EC 16:36
DX: I10 Essential (primary) hypertension (principal); I25.10 Atherosclerotic heart disease of native coronary artery without angina pectoris; J44.9 Chronic obstructive pulmonary disease, unspecified; E78.5 Hyperlipidemia, unspecified; K21.9 Gastro-esophageal reflux disease without esophagitis; M19.90 Unspecified osteoarthritis, unspecified site; E05.90 Thyrotoxicosis, unspecified without thyrotoxic crisis or storm; Z79.82 Long term (current) use of aspirin; Z79.899 Other long term (current) drug therapy; Z82.49 Family history of ischemic heart disease and other diseases of the circulatory system; Z86.718 Personal history of other venous thrombosis and embolism; Z87.891 Personal history of nicotine dependence; Z88.6 Allergy status to analgesic agent; Z95.5 Presence of coronary angioplasty implant and graft; Z87.19 Personal history of other diseases of the digestive system
CPT/HCPCS: 93005; 99284; S0119

== ENCOUNTER 2021-07-12 19:16 | Observation (INO) | payer MEDICARE, OTHER ==
--- NOTE | 2021-07-12 21:55 | ED ---
Recheck HPI - General Chief Complaint: Recheck/Abnormal Lab/Rx Stated Complaint: High BP, hand & ankle swelling Time Seen by Provider: 07/12/21 21:22 Source: patient, RN notes reviewed, old records reviewed Mode of arrival: wheelchair Limitations: no limitations - History of Present Illness Initial Comments: This is a 65-year-old male to the ER for evaluation today. Today patient presents for evaluation in regards to significantly elevated blood pressure. Occasional headaches and patient is noted swelling of both his legs and hands. He has had this issue before relation to elevated blood pressure. Patient states she's been drinking and eating without difficulty. Main concern today his blood pressure and swelling noted in both hands and legs MD Complaint: other (Elevated blood pressure and swelling of hands and legs) -: unknown Returns Today for: persistent/worsening pain related to initial visit, other (Hands and feet swelling) Symptoms Since Prior Visit: worsening swelling Associated Symptoms: none Treatments Prior to Arrival: other (Patient states she's been taking blood pressure medications as directed) - Related Data Home Medications Medication Instructions Recorded Confirmed Fluticasone Nasal [place] [Flonase 1 spray EA NOSTRIL BID 04/20/17 06/11/21 Nasal [place]] Morphine Sulfate ER [Ms Contin] 30 mg PO Q8H 10/10/17 06/11/21 tiZANidine [Zanaflex] 4 mg PO BID 02/26/18 06/11/21 Aspirin EC [Ecotrin Low Dose] 81 mg PO DAILY 01/02/20 06/11/21 oxyCODONE-APAP 10-325MG [Percocet 1 tab PO Q8H 01/02/20 06/11/21 10-325 mg] Prasugrel [Effient] 10 mg PO DAILY 08/06/20 06/11/21 lisinopriL 40 mg PO DAILY 08/06/20 06/11/21 Dicyclomine [Bentyl] 10 mg PO TID PRN 02/13/21 06/11/21 Pregabalin 100 mg PO BID 02/22/21 06/11/21 amLODIPine [Norvasc] 5 mg PO BID 05/04/21 06/11/21 Previous Rx's Medication Instructions Recorded Ezetimibe [Zetia] 10 mg PO DAILY #30 tab 05/24/19 Nitroglycerin Sl Tabs [Nitrostat] 0.4 mg SUBLINGUAL Q5M PRN #20 tab 07/02/19 Prochlorperazine [Compazine] 10 mg PO Q6H PRN #12 tab 03/04/21 Acetaminophen Tab [Tylenol] 650 mg PO Q4HR PRN tab 05/17/21 Metoprolol Tartrate [Lopressor] 50 mg PO BID #60 tab 05/17/21 Ondansetron HCl [Zofran] 4 mg PO Q8H PRN #30 tab 05/17/21 Atorvastatin [Lipitor] 80 mg PO HS 30 Days #30 tab 06/13/21 hydrALAZINE HCL [Apresoline] 50 mg PO TID 30 Days #90 tab 06/13/21 Furosemide [Lasix] 40 mg PO BID #6 tablet 07/12/21 Allergies Allergy/AdvReac Type Severity Reaction Status Date / Time ibuprofen [From Motrin] Allergy Rash/Hives Verified 07/12/21 19:56 ketorolac tromethamine Allergy Rash/Hives Verified 07/12/21 19:56 [From Toradol] Review of Systems ROS Statement: Those systems with pertinent positive or pertinent negative responses have been documented in the HPI. ROS Other: All systems not noted in ROS Statement are negative. Past Medical History Past Medical History: Coronary Artery Disease (CAD), Chest Pain / Angina, COPD, Deep Vein Thrombosis (DVT), GERD/Reflux, Hyperlipidemia, Hypertension, Osteoarthritis (OA), Thyroid Disorder Additional Past Medical History / Comment(s): Occasional palpitations, gastritis, small hiatal hernia, diverticular dx, pt states years ago he had PUD, chronic low back pain, chronic pain syndrome, migraines, DVT L arm, numbness/tingling bilateral lower legs, bilateral past R hand fracture, arthr itis multiple joints, hyperthyroid, sinus problems. History of Any Multi-Drug Resistant Organisms: None Reported Past Surgical History: Back Surgery, Cholecystectomy, Heart Catheterization With Stent, Orthopedic Surgery Additional Past Surgical History / Comment(s): EGDs/colonoscopies, multiple low back surgeries, bilateral arm and bilateral thigh surgeries for brown recluse spider bites with infection, morphine pain pump insertion and removal due to infection, PCI with stents, L rotator cuff repair, L knee arthroscopy, cervical fusion/cage, R cataract removal. 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 He lived to be 82 yrs old. Mother History Unknown: Yes Family Medical History: Hypertension, Myocardial Infarction ([place]) Additional Family Medical History / Comment(s): Mother of a [place] at the age of 55yrs. Brother(s) Family Medical History: Cancer, COPD Additional Family Medical History / Comment(s): Leukemia General Exam - General Exam Comments Initial Comments: Patient does have bilateral hand and leg swelling General appearance: alert, in no apparent distress Head exam: Present: atraumatic, normocephalic, normal inspection Eye exam: Present: normal appearance, PERRL, EOMI. Absent: scleral icterus, conjunctival injection, periorbital swelling ENT exam: Present: normal exam, mucous membranes moist Neck exam: Present: normal inspection. Absent: tenderness, meningismus, lymphadenopathy Respiratory exam: Present: normal lung sounds bilaterally. Absent: respiratory distress, wheezes, rales, rhonchi, stridor Cardiovascular Exam: Present: regular rate, normal rhythm, normal heart sounds. Absent: systolic murmur, diastolic murmur, rubs, gallop, clicks GI/Abdominal exam: Present: soft, normal bowel sounds. Absent: distended, tenderness, guarding, rebound, rigid Extremities exam: Present: normal inspection, full ROM, normal capillary refill. Absent: tenderness, pedal edema, joint swelling, calf tenderness Back exam: Present: normal inspection Neurological exam: Present: alert, oriented X3, CN II-XII intact Psychiatric exam: Present: normal affect, normal mood Skin exam: Present: warm, dry, intact, normal color. Absent: rash Course Vital Signs 07/12/21 19:51 Temperature 97.9 F Pulse Rate 71 Respiratory 18 Rate Blood Pressure 189/98 O2 Sat by Pulse 96 Oximetry - Reevaluation(s) Reevaluation #1: 07/13/21 00:07 Medical record is reviewed Reevaluation #2: 07/13/21 00:07 Blood pressures improved here in the emergency department Reevaluation #3: 07/13/21 00:07 Patient informed of results and questions answered Reevaluation #4: 07/13/21 00:07 Patient to return if swelling does not dissipate in 1-2 days Medical Decision Making - Medical Decision Making 65 male DF for evaluation of abnormally and significantly elevated blood pressure chronic, patient also has upper extremity and lower extremity edema which is worse than normal. At this time patient symptoms are improved blood pressures improved patient feels comfortable with discharge Disposition Clinical Impression: HTN (hypertension), Extremity edema, Bilateral leg edema Disposition: HOME SELF-CARE Condition: Good Instructions (If sedation given, give patient instructions): Hypertension (ED), Edema (ED) Prescriptions: Furosemide [Lasix] 40 mg PO BID #6 tablet Is patient prescribed a controlled substance at d/c from ED?: No Referrals: None,Stated [Primary Care Provider] - 1-2 days
[2021-07-12] MEDS ORDERED: HYDROmorphone 1 MG/ML 1 ML SYRINGE IM STA (22:14)
[2021-07-12] MEDS ORDERED: METOPROLOL TARTRATE 50 MG TAB PO STA (22:14)
[2021-07-12] MEDS ORDERED: FUROSEMIDE 20 MG TAB PO STA ×2 (22:16→23:37)
[2021-07-12] MEDS ORDERED: cloNIDine 0.3 MG/24HR PATCH TRANSDERM ONE (22:30)
[2021-07-12] MEDS ORDERED: hydrALAZINE HCL 50 MG TAB PO STA (23:36)
[2021-07-13] MEDS ORDERED: FUROSEMIDE 10 MG/ML 10 ML VIAL IV STA (01:47)
[2021-07-13] MEDS ORDERED: hydrALAZINE HCL 20 MG/ML 1 ML VIAL IVP STA (01:47)
[2021-07-13] MEDS ORDERED: diphenhydrAMINE 50 MG/ML 1 ML VIAL IVP STA (01:47)
[2021-07-13] MEDS ORDERED: HYDROmorphone 1 MG/ML 1 ML SYRINGE IVP STA ×2 (01:47→06:07)
[2021-07-13 06:07] LABS: Basophils % (A) 0 %; Eosinophils # (A) 0.1 k/uL (0-0.7); Eosinophils % (A) 1 %; HCT 41.2 % (39.0-53.0); HGB 13.3 gm/dL (13.0-17.5); Lymphocytes # (A) 0.8 k/uL (1.0-4.8); Lymphocytes % (A) 10 %; MCH 29.5 pg (25.0-35.0); MCHC 32.2 g/dL (31.0-37.0); MCV 91.6 fL (80.0-100.0); Mean Platelet Volume 6.7; Monocytes # (A) 0.5 k/uL (0-1.0); Monocytes % (A) 6 %; Neutrophils # (A) 6.5 k/uL (1.3-7.7); Neutrophils % (A) 81 %; Platelet Count 366 k/uL (150-450); RDW 14.7 % (11.5-15.5)
[2021-07-13] MEDS ORDERED: LABETALOL 5 MG/ML VIAL MDV IVP STA (06:23)
[2021-07-13 06:31] LABS: African American GFR (CKD) >90 (>60 ml/min/1.73 sqM); Anion Gap 12 mmol/L; Blood Urea Nitrogen 10 mg/dL (9-20); Carbon Dioxide 26 mmol/L (22-30); Chloride 98 mmol/L (98-107); Glucose 140 mg/dL (74-99); Non-African American GFR(CKD) >90 (>60 ml/min/1.73 sqM); Potassium 3.9 mmol/L (3.5-5.1); Sodium 136 mmol/L (137-145)
[2021-07-13] MEDS ORDERED: ONDANSETRON 4 MG/2 ML VIAL IVP PRN (06:43)
[2021-07-13] MEDS ORDERED: NALOXONE 0.4 MG/ML 1 ML VIAL IV PRN (06:43)
--- NOTE | 2021-07-13 06:47 | ED ---
Medical Decision Making - Medical Decision Making 65 male with intractable hypertension, severely elevated blood pressure requiring multiple medications, patient will be admitted for hypertensive urgency - Lab Data Result diagrams: 07/13/21 05:27 07/13/21 05:27 Lab Results 07/13/21 07/13/21 07/13/21 Range/Units 05:27 05:27 05:27 WBC 8.0 (3.8-10.6) k/uL RBC 4.50 (4.30-5.90) m/uL Hgb 13.3 (13.0-17.5) gm/dL Hct 41.2 (39.0-53.0) % MCV 91.6 (80.0-100.0) fL MCH 29.5 (25.0-35.0) pg MCHC 32.2 (31.0-37.0) g/dL RDW 14.7 (11.5-15.5) % Plt Count 366 (150-450) k/uL MPV 6.7 Neutrophils % 81 % Lymphocytes % 10 % Monocytes % 6 % Eosinophils % 1 % Basophils % 0 % Neutrophils # 6.5 (1.3-7.7) k/uL Lymphocytes # 0.8 L (1.0-4.8) k/uL Monocytes # 0.5 (0-1.0) k/uL Eosinophils # 0.1 (0-0.7) k/uL Basophils # 0.0 (0-0.2) k/uL Sodium 136 L (137-145) mmol/L Potassium 3.9 (3.5-5.1) mmol/L Chloride 98 (98-107) mmol/L Carbon Dioxide 26 (22-30) mmol/L Anion Gap 12 mmol/L BUN 10 (9-20) mg/dL Creatinine 0.58 L (0.66-1.25) mg/dL Est GFR (CKD-EPI)AfAm >90 (>60 ml/min/1.73 sqM) Est GFR (CKD-EPI)NonAf >90 (>60 ml/min/1.73 sqM) Glucose 140 H (74-99) mg/dL Calcium 10.0 (8.4-10.2) mg/dL Troponin I <0.012 (0.000-0.034) ng/mL Disposition Clinical Impression: HTN (hypertension), Extremity edema, Bilateral leg edema, Accelerated hypertension, Uncontrolled hypertension, Intractable nausea and vomiting Disposition: ADMITTED IP TO THIS HOSP Condition: Good Instructions (If sedation given, give patient instructions): Hypertension (ED), Edema (ED) Prescriptions: Furosemide [Lasix] 40 mg PO BID #6 tablet Is patient prescribed a controlled substance at d/c from ED?: No Referrals: None,Stated [Primary Care Provider] - 1-2 days
[2021-07-13] MEDS: MORPHINE SULFATE 4 MG/ML SYRINGE IV PRN ×2 (12:04→15:59)
[2021-07-13] MEDS ORDERED: amLODIPine 5 MG TAB PO STA (16:52)
[2021-07-13] MEDS ORDERED: METOPROLOL TARTRATE 50 MG TAB PO STA (16:53)
[2021-07-13] MEDS ORDERED: hydrALAZINE HCL 50 MG TAB PO STA (16:54)
[2021-07-13] MEDS ORDERED: ACETAMINOPHEN TAB 325 MG TAB PO PRN (16:59)
[2021-07-13] MEDS ORDERED: NITROGLYCERIN SL TABS 0.4 MG TAB SUBLINGUAL PRN (20:14)
[2021-07-13] MEDS ORDERED: PROCHLORPERAZINE 10 MG TAB PO PRN (20:14)
[2021-07-13] MEDS ORDERED: DICYCLOMINE 10 MG CAP PO PRN (20:14)
[2021-07-13] MEDS ORDERED: MORPHINE SULFATE ER 30 MG TABLET PO SCH (20:15)
[2021-07-13] MEDS: PREGABALIN 100 MG CAP PO SCH (21:09)
[2021-07-13] MEDS: METOPROLOL TARTRATE 50 MG TAB PO SCH (21:09)
[2021-07-13] MEDS: ATORVASTATIN 80 MG TAB PO SCH (21:09)
[2021-07-13] MEDS: hydrALAZINE HCL 50 MG TAB PO SCH (21:09)
[2021-07-13] MEDS: FLUTICASONE 50MCG/SPRAY NASAL 16GM EA NOSTRIL SCH (21:09)
[2021-07-13] MEDS: amLODIPine 5 MG TAB PO SCH (21:10)
[2021-07-13] MEDS: oxyCODONE-APAP 10-325MG 1 EACH TAB PO PRN (21:42)
--- NOTE | 2021-07-13 23:10 | P.HPIM ---
History of Present Illness H&P Date: 07/13/21 Chief Complaint: Elevated BP is a 65-year-old male with the past medical history of CAD, COPD, DVT, GERD, hypertension, hyperlipidemia, thyroid disorder, chronic pain syndrome, migraines, multiple joint osteoarthritis, gastritis coming to the hospital with a chief complaint of elevated blood pressure. Patient states that he has occasional headaches, that has been slightly worse for the past 1 day. Patient was also complaining of increased swelling of his both upper and lower extremities. Patient denied having any chest pain or difficulty in breathing. He states at times he feels dizzy especially when changing positions. Patient denied having any cough or difficulty in breathing. No abdominal pain nausea vomiting or diarrhea. No dysuria or hematuria. Patient denies having any fevers chills or rigors. He denies having any recent travels or sick contacts. In the ED at the time of admission patient's blood pressure was as high as 220/131. He was given hydralazine metoprolol and as his blood pressure did not budge, he was admitted for further evaluation. In the ER patient had EKG done showing normal sinus rhythm and he had labs done showing white count of 8, hemoglobin of 13.3, platelets of 366. Sodium 136, potassium 3.9, chloride 98, bicarb 26, BUN 10, creatinine 0.58 troponin less than 0.012. Review of Systems REVIEW OF SYSTEMS: CONSTITUTIONAL: No fever, no malaise, no fatigue. HEENT: No headache, no neck stiffness, no blurring of vision CARDIOVASCULAR: No chest pain, no palpitations PULMONARY: No cough or difficulty in breathing GASTROINTESTINAL: No Abdominal pain nausea vomiting or diarrhea NEUROLOGICAL: No weakness of extremities HEMATOLOGICAL: Denies any bleeding or petechiae. GENITOURINARY: Denies any burning micturition, frequency, or urgency. MUSCULOSKELETAL/RHEUMATOLOGICAL: Denies any joint pain, swelling, or any muscle pain. ENDOCRINE: Denies polyuria polydipsia or heat or cold intolerance The rest of the 14-point review of systems is negative. Past Medical History Past Medical History: Coronary Artery Disease (CAD), Chest Pain / Angina, COPD, Deep Vein Thrombosis (DVT), GERD/Reflux, Hyperlipidemia, Hypertension, Osteoarthritis (OA), Thyroid Disorder Additional Past Medical History / Comment(s): Occasional palpitations, gastritis, small hiatal hernia, diverticular dx, pt states years ago he had PUD, chronic low back pain, chronic pain syndrome, migraines, DVT L arm, numbness/tingling bilateral lower legs, bilateral past R hand fracture, arthritis multiple joints, hyperthyroid, sinus problems. History of Any Multi-Drug Resistant Organisms: None Reported Past Surgical History: Back Surgery, Cholecystectomy, Heart Catheterization With Stent, Orthopedic Surgery Additional Past Surgical History / Comment(s): EGDs/colonoscopies, multiple low back surgeries, bilateral arm and bilateral thigh surgeries for brown recluse spider bites with infection, morphine pain pump insertion and removal due to infection, PCI with stents, L rotator cuff repair, L knee arthroscopy, cervical fusion/cage, R cataract removal. 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 He lived to be 82 yrs old. Mother History Unknown: Yes Family Medical History: Hypertension, Myocardial Infarction ([facility]) Additional Family Medical History / Comment(s): Mother of a [facility] at the age of 55yrs. Brother(s) Family Medical History: Cancer, COPD Additional Family Medical History / Comment(s): Leukemia Medications and Allergies Home Medications Medication Instructions Recorded Confirmed Type Fluticasone Nasal [place] [Flonase 1 spr EA NOSTRIL BID 04/20/17 07/13/21 History Nasal [place]] Morphine Sulfate ER [Ms Contin] 30 mg PO Q8H 10/10/17 07/13/21 History tiZANidine [Zanaflex] 4 mg PO BID 02/26/18 07/13/21 History Ezetimibe [Zetia] 10 mg PO DAILY #30 tab 05/24/19 07/13/21 Rx Aspirin EC [Ecotrin Low Dose] 81 mg PO DAILY 01/02/20 07/13/21 History oxyCODONE-APAP 10-325MG [Percocet 1 tab PO Q8H 01/02/20 07/13/21 History 10-325 mg] Prasugrel [Effient] 10 mg PO DAILY 08/06/20 07/13/21 History lisinopriL 40 mg PO DAILY 08/06/20 07/13/21 History Dicyclomine [Bentyl] 10 mg PO TID PRN 02/13/21 07/13/21 History Pregabalin 100 mg PO BID 02/22/21 07/13/21 History Prochlorperazine [Compazine] 10 mg PO Q6H PRN #12 tab 03/04/21 07/13/21 Rx amLODIPine [Norvasc] 5 mg PO BID 05/04/21 07/13/21 History Metoprolol Tartrate [Lopressor] 50 mg PO BID #60 tab 05/17/21 07/13/21 Rx Ondansetron HCl [Zofran] 4 mg PO Q8H PRN #30 tab 05/17/21 07/13/21 Rx Atorvastatin [Lipitor] 80 mg PO HS 30 Days #30 tab 06/13/21 07/13/21 Rx hydrALAZINE HCL [Apresoline] 50 mg PO TID 30 Days #90 tab 06/13/21 07/13/21 Rx Furosemide [Lasix] 40 mg PO BID #6 tablet 07/12/21 Rx Acetaminophen Tab [Tylenol] 650 mg PO Q4H PRN 07/13/21 07/13/21 History Nitroglycerin Sl Tabs [Nitrostat] 0.4 mg SL Q5M PRN 07/13/21 07/13/21 History Allergies Allergy/AdvReac Type Severity Reaction Status Date / Time ibuprofen [From Motrin] Allergy Rash/Hives Verified 07/13/21 09:30 ketorolac tromethamine Allergy Rash/Hives Verified 07/13/21 09:30 [From Toradol] Physical Exam Vitals: Vital Signs Temp Pulse Resp BP Pulse Ox 07/13/21 17:07 91 18 125/89 96 07/13/21 14:29 98.2 F 74 15 154/99 96 07/13/21 11:30 98.8 F 74 16 150/97 96 07/13/21 07:34 98.8 F 70 16 157/90 98 07/13/21 06:30 89 18 162/104 94 L 07/13/21 02:52 195/116 08/21/21 01:37 220/131 07/12/21 23:21 85 20 194/119 97 07/12/21 19:51 97.9 F 71 18 189/98 96 PHYSICAL EXAMINATION: GENERAL: Comfortably lying up in the bed appears to be no acute distress. HEENT: Pupils are round and equally reacting to light. EOMI. No scleral icterus. No conjunctival pallor. CARDIOVASCULAR: S1 and S2 present. No murmurs, rubs, or gallops. PULMONARY: Bilateral breath sounds positive. No wheeze or crackles.. ABDOMEN: Soft,non -tender, normal bowel sounds. No guarding or rigidity. MUSCULOSKELETAL: No joint swelling or deformity. EXTREMITIES: No edema NEUROLOGICAL: Gross neurological examination did not reveal any focal deficits. SKIN:No rash Results CBC & Chem 7: 07/13/21 05:27 07/13/21 05:27 Labs: Abnormal Lab Results - Last 24 Hours (Table) 07/13/21 07/13/21 Range/Units 05:27 05:27 Lymphocytes # 0.8 L (1.0-4.8) k/uL Sodium 136 L (137-145) mmol/L Creatinine 0.58 L (0.66-1.25) mg/dL Glucose 140 H (74-99) mg/dL Assessment and Plan Assessment: ASSESSMENT Accelerated hypertension COPD Hypertension Hyperlipidemia Multiple joint osteoarthritis Gastritis History of diverticular disease History of migraine headaches History of right hand fracture Hypothyroidism History of sinus issues History of DVT in the left arm PLAN : Patient received hydralazine, metoprolol, Lasix, labetalol in the emergency department and his blood pressure has been trending down. Will order an echocardiogram. Patient will be restarted on home medications. Will repeat a.m. labs. Further recommendations to follow depending on the progress of the patient.
[2021-07-14 05:46] LABS: Basophils % (A) 1 %; Eosinophils # (A) 0.1 k/uL (0-0.7); Eosinophils % (A) 2 %; HCT 39.1 % (39.0-53.0); HGB 12.5 gm/dL (13.0-17.5); Lymphocytes # (A) 1.6 k/uL (1.0-4.8); Lymphocytes % (A) 36 %; MCH 29.1 pg (25.0-35.0); MCHC 32.1 g/dL (31.0-37.0); MCV 90.8 fL (80.0-100.0); Mean Platelet Volume 6.3; Monocytes # (A) 0.5 k/uL (0-1.0); Monocytes % (A) 10 %; Neutrophils # (A) 2.1 k/uL (1.3-7.7); Neutrophils % (A) 48 %; Platelet Count 299 k/uL (150-450); RBC 4.31 m/uL (4.30-5.90); RDW 15.2 % (11.5-15.5); WBC 4.4 k/uL (3.8-10.6)
[2021-07-14] MEDS: PREGABALIN 100 MG CAP PO SCH ×2 (07:50→22:06)
[2021-07-14] MEDS: PRASUGREL 10 MG TAB PO SCH (07:50)
[2021-07-14] MEDS: EZETIMIBE 10 MG TAB PO SCH (07:50)
[2021-07-14] MEDS: ASPIRIN 81 MG PO SCH (07:50)
[2021-07-14] MEDS: FLUTICASONE 50MCG/SPRAY NASAL 16GM EA NOSTRIL SCH ×2 (07:51→22:06)
[2021-07-14] MEDS: hydrALAZINE HCL 50 MG TAB PO SCH ×3 (09:58→20:53)
[2021-07-14] MEDS: amLODIPine 5 MG TAB PO SCH ×2 (09:58→20:53)
[2021-07-14] MEDS: lisinopriL 20 MG TAB PO SCH (09:58)
[2021-07-14] MEDS: METOPROLOL TARTRATE 50 MG TAB PO SCH ×2 (09:58→20:53)
[2021-07-14 12:41] LABS: African American GFR (CKD) 56.2 (60.0-200.0); BUN/Creat Ratio 12.67 Ratio (12.00-20.00); Calcium 9.2 mg/dL (8.7-10.3); Non-African American GFR(CKD) 48.5 (60.0-200.0); Potassium 4.1 mmol/L (3.5-5.5)
[2021-07-14] MEDS: oxyCODONE-APAP 10-325MG 1 EACH TAB PO PRN ×2 (14:54→22:06)
--- NOTE | 2021-07-14 19:11 | P.PN ---
Subjective Progress Note Date: 07/14/21 Principal diagnosis: HTN urgency is a 65-year-old male with the past medical history of CAD, COPD, DVT, GERD, hypertension, hyperlipidemia, thyroid disorder, chronic pain syndrome, migraines, multiple joint osteoarthritis, gastritis coming to the hospital with a chief complaint of elevated blood pressure. Patient states that he has occasional headaches, that has been slightly worse for the past 1 day. Patient was also complaining of increased swelling of his both upper and lower extremities. Patient denied having any chest pain or difficulty in breathing. He states at times he feels dizzy especially when changing positions. Patient denied having any cough or difficulty in breathing. No abdominal pain nausea vomiting or diarrhea. No dysuria or hematuria. Patient denies having any fevers chills or rigors. He denies having any recent travels or sick contacts. In the ED at the time of admission patient's blood pressure was as high as 220/131. He was given hydralazine metoprolol and as his blood pressure did not budge, he was admitted for further evaluation. In the ER patient had EKG done showing normal sinus rhythm and he had labs done showing white count of 8, hemoglobin of 13.3, platelets of 366. Sodium 136, potassium 3.9, chloride 98, bicarb 26, BUN 10, creatinine 0.58 troponin less than 0.012. On 07/14/2021 - patient is seen and examined at the bedside. As per discussion with nursing staff patient's blood pressure has been low since last night. He is comfortably lying in bed appears to be no acute distress. Patient complains of some tingling sensation in bilateral upper extremities at the tip of his fingers that is chronic in nature. He denies having any weakness of his extremities, no neck pain or headaches. The patient denies having chest pain or palpitations. No cough or difficulty in breathing. No abdominal pain nausea vomiting or diarrhea. He denies having any swelling of his lower extremities. On reviewing his vitals blood pressure low at 86 x 50, heart rate 80, respiratory 16, temperature 97.6, saturating at 97% on room air. On reviewing the labs from this morning white count of 4.4, hemoglobin 12.5, platelets 299. Sodium 137, potassium 4.1, chloride 100, bicarbonate 22, BUN 19, creatinine 1.5. Patient's medications have been reviewed Objective - Vital Signs Vital signs: Vital Signs Temp 97.6 F 07/14/21 07:00 Pulse 72 07/14/21 11:24 Resp 16 07/14/21 07:00 BP 92/53 07/14/21 11:24 Pulse Ox 96 07/14/21 11:24 Intake & Output 07/13/21 07/14/21 07/14/21 18:59 06:59 18:59 Intake Total 100 Balance 100 Weight 79.379 kg Intake: Oral 100 Other: Voiding Method Toilet # Voids 3 - Exam PHYSICAL EXAMINATION: GENERAL: Comfortably lying up in the bed appears to be no acute distress. HEENT: Pupils are round and equally reacting to light. EOMI. No scleral icterus. No conjunctival pallor. CARDIOVASCULAR: S1 and S2 present. No murmurs, rubs, or gallops. PULMONARY: Bilateral breath sounds positive. No wheeze or crackles.. ABDOMEN: Soft,non -tender, normal bowel sounds. No guarding or rigidity. MUSCULOSKELETAL: No joint swelling or deformity. EXTREMITIES: No edema NEUROLOGICAL: Gross neurological examination did not reveal any focal deficits. SKIN:No rash - Labs CBC & Chem 7: 07/14/21 05:03 07/14/21 05:03 Labs: Abnormal Lab Results - Last 24 Hours (Table) 07/14/21 Range/Units 05:03 Hgb 12.5 L (13.0-17.5) gm/dL Assessment and Plan Assessment: ASSESSMENT Hypotension Acute kidney injury COPD Hypertension Hyperlipidemia Multiple joint osteoarthritis Gastritis History of diverticular disease History of migraine headaches History of right hand fracture Hypothyroidism History of sinus issues History of DVT in the left arm PLAN : Patient received hydralazine, metoprolol, Lasix, labetalol in the emergency department and his blood pressure has been trending down. Patient's blood pressure on the lower side since last night. And creatinine is 1.5 this morning. Could be due to fluctuation in his blood pressure. Patient will be started on IV fluids normal saline at 1 30 mL/h. Echocardiogram pending. We will hold off on all blood pressure medications for now. Further recommendations depending on the progress of the patient.
[2021-07-14] MEDS: SODIUM CHLORIDE 0.9% 1,000 ML IV SCH (19:57)
[2021-07-14] MEDS: ATORVASTATIN 80 MG TAB PO SCH (22:06)
[2021-07-15] MEDS: SODIUM CHLORIDE 0.9% 1,000 ML IV SCH (04:01)
[2021-07-15] MEDS: ASPIRIN 81 MG PO SCH (09:03)
[2021-07-15] MEDS: EZETIMIBE 10 MG TAB PO SCH (09:03)
[2021-07-15] MEDS: PRASUGREL 10 MG TAB PO SCH (09:04)
[2021-07-15] MEDS: PREGABALIN 100 MG CAP PO SCH (09:04)
[2021-07-15] MEDS: oxyCODONE-APAP 10-325MG 1 EACH TAB PO PRN (09:04)
[2021-07-15] MEDS: FLUTICASONE 50MCG/SPRAY NASAL 16GM EA NOSTRIL SCH (09:06)
[2021-07-15 09:17] LABS: Basophils # (A) 0.02 X 10*3/uL (0.00-0.10); Basophils % (A) 0.6 %; Eosinophils # (A) 0.04 X 10*3/uL (0.04-0.35); Eosinophils % (A) 1.1 %; HCT 35.3 % (39.6-50.0); HGB 11.1 g/dL (13.0-17.0); Lymphocytes # (A) 1.28 X 10*3/uL (0.90-5.00); MCH 28.4 pg (27.0-32.0); MCHC 31.4 g/dL (32.0-37.0); MCV 90.3 fL (80.0-97.0); Mean Platelet Volume 8.8 fL (9.5-12.2); Monocytes # (A) 0.39 X 10*3/uL (0.20-1.00); Neutrophils # (A) 1.82 X 10*3/uL (1.80-7.70); Platelet Count 272 X 10*3/uL (140-440); RBC 3.91 X 10*6/uL (4.40-5.60); RDW 15.6 % (11.5-14.5); WBC 3.56 X 10*3/uL (4.50-10.00)
--- NOTE | 2021-07-15 10:49 | ECHOF ---
Referral Reason:HTN MEASUREMENTS -------- HEIGHT: 177.8 cm WEIGHT: 79.4 kg BP: IVSd: 1.4 cm (0.6 - 1.1) LVIDd: 3.7 cm (3.9 - 5.3) LVPWd: 1.6 cm (0.6 - 1.1) IVSs: 2.3 cm LVIDs: 1.7 cm LVPWs: 1.8 cm FINDINGS -------- This was a technically good study. Limited Study The left ventricular size is normal. There is moderate concentric left ventricular hypertrophy. O verall left ventricular systolic function is normal with, an EF between 55 - 60 %. There is a trivial pericardial effusion present. CONCLUSIONS -------- 1. The left ventricular size is normal. 2. There is moderate concentric left ventricular hypertrophy. 3. Overall left ventricular systolic function is normal with, an EF between 55 - 60 %. 4. There is a trivial pericardial effusion present. PRINCIPAL DATA ARCHITECT: Mitzy Alcantar RDCS
[2021-07-15] MEDS: METOPROLOL TARTRATE 50 MG TAB PO SCH (11:02)
[2021-07-15] MEDS: lisinopriL 20 MG TAB PO SCH (11:02)
[2021-07-15] MEDS: amLODIPine 5 MG TAB PO SCH (11:02)
[2021-07-15] MEDS: hydrALAZINE HCL 50 MG TAB PO SCH (11:02)
[2021-07-15 12:32] LABS: African American GFR (CKD) 66.8 (60.0-200.0); Anion Gap 14.2 mmol/L (4.00-12.00); Calcium 8.6 mg/dL (8.7-10.3); Carbon Dioxide 19.8 mmol/L (21.6-31.8); Non-African American GFR(CKD) 57.7 (60.0-200.0); Potassium 4.2 mmol/L (3.5-5.5)
[2021-07-15 14:42] VITALS: BP 119/75; PULSE 72; RESP 16; TEMP 97.8
--- NOTE | 2021-07-17 02:01 | P.DS ---
Providers Date of admission: 07/13/21 06:43 Expected date of discharge: 07/15/21 Attending physician: Joselito Ng Primary care physician: Stated None Hospital Course: is a 65-year-old male with the past medical history of CAD, COPD, DVT, GERD, hypertension, hyperlipidemia, thyroid disorder, chronic pain syndrome, migraines, multiple joint osteoarthritis, gastritis coming to the hospital with a chief complaint of elevated blood pressure. Patient states that he has occasional headaches, that has been slightly worse for the past 1 day. Patient was also complaining of increased swelling of his both upper and lower e xtremities. Patient denied having any chest pain or difficulty in breathing. He states at times he feels dizzy especially when changing positions. Patient denied having any cough or difficulty in breathing. No abdominal pain nausea vomiting or diarrhea. No dysuria or hematuria. Patient denies having any fevers chills or rigors. He denies having any recent travels or sick contacts. In the ED at the time of admission patient's blood pressure was as high as 220/131. He was given hydralazine metoprolol and as his blood pressure did not budge, he was admitted for further evaluation. In the ER patient had EKG done showing normal sinus rhythm and he had labs done showing white count of 8, hemoglobin of 13.3, platelets of 366. Sodium 136, potassium 3.9, chloride 98, bicarb 26, BUN 10, creatinine 0.58 troponin less than 0.012. On 07/14/2021 - patient is seen and examined at the bedside. As per discussion with nursing staff patient's blood pressure has been low since last night. He is comfortably lying in bed appears to be no acute distress. Patient complains of some tingling sensation in bilateral upper extremities at the tip of his fingers that is chronic in nature. He denies having any weakness of his extremities, no neck pain or headaches. The patient denies having chest pain or palpitations. No cough or difficulty in breathing. No abdominal pain nausea vomiting or diarrhea. He denies having any swelling of his lower extremities. On reviewing his vitals blood pressure low at 86 x 50, heart rate 80, respiratory 16, temperature 97.6, saturating at 97% on room air. On reviewing the labs from this morning white count of 4.4, hemoglobin 12.5, platelets 299. Sodium 137, potassium 4.1, chloride 100, bicarbonate 22, BUN 19, creatinine 1.5. On 07/15/2021- Patient's blood pressure was still on the lower side, he has been continue with IV fluids. Echocardiogram done showed ejection fraction of 55 to 60% with trivial pericardial effusion. Later in the evening, Nurse Notified patient left AGAINST MEDICAL ADVICE. DISCHARGE DIAGNOSIS Hypotension Acute kidney injury COPD Hypertension Hyperlipidemia Multiple joint osteoarthritis Gastritis History of diverticular disease History of migraine headaches History of right hand fracture Hypothyroidism History of sinus issues History of DVT in the left arm Patient Condition at Discharge: Good Plan - Discharge Summary Discharge Rx Participant: Yes New Discharge Prescriptions: New Furosemide [Lasix] 40 mg PO BID #6 tablet No Action Fluticasone Nasal [place] [Flonase Nasal [place]] 1 spr EA NOSTRIL BID Morphine Sulfate ER [Ms Contin] 30 mg PO Q8H tiZANidine [Zanaflex] 4 mg PO BID Ezetimibe [Zetia] 10 mg PO DAILY #30 tab oxyCODONE-APAP 10-325MG [Percocet 10-325 mg] 1 tab PO Q8H Aspirin EC [Ecotrin Low Dose] 81 mg PO DAILY lisinopriL 40 mg PO DAILY Prasugrel [Effient] 10 mg PO DAILY Prochlorperazine [Compazine] 10 mg PO Q6H PRN #12 tab PRN Reason: Nausea amLODIPine [Norvasc] 5 mg PO BID Metoprolol Tartrate [Lopressor] 50 mg PO BID #60 tab hydrALAZINE HCL [Apresoline] 50 mg PO TID 30 Days #90 tab Atorvastatin [Lipitor] 80 mg PO HS 30 Days #30 tab Nitroglycerin Sl Tabs [Nitrostat] 0.4 mg SL Q5M PRN PRN Reason: Chest Pain Acetaminophen Tab [Tylenol] 650 mg PO Q4H PRN PRN Reason: Fever And/Or Mild Pain Dicyclomine [Bentyl] 10 mg PO TID PRN PRN Reason: IBS Pregabalin 100 mg PO BID Ondansetron HCl [Zofran] 4 mg PO Q8H PRN #30 tab PRN Reason: Nausea And Vomiting Discharge Medication List Fluticasone Nasal [place] [Flonase Nasal [place]] 1 spr EA NOSTRIL BID 04/20/17 [History] Morphine Sulfate ER [Ms Contin] 30 mg PO Q8H 10/10/17 [History] tiZANidine [Zanaflex] 4 mg PO BID 02/26/18 [History] Ezetimibe [Zetia] 10 mg PO DAILY #30 tab 05/24/19 [Rx] Aspirin EC [Ecotrin Low Dose] 81 mg PO DAILY 01/02/20 [History] oxyCODONE-APAP 10-325MG [Percocet 10-325 mg] 1 tab PO Q8H 01/02/20 [History] Prasugrel [Effient] 10 mg PO DAILY 08/06/20 [History] lisinopriL 40 mg PO DAILY 08/06/20 [History] Dicyclomine [Bentyl] 10 mg PO TID PRN 02/13/21 [History] Pregabalin 100 mg PO BID 02/22/21 [History] Prochlorperazine [Compazine] 10 mg PO Q6H PRN #12 tab 03/04/21 [Rx] amLODIPine [Norvasc] 5 mg PO BID 05/04/21 [History] Metoprolol Tartrate [Lopressor] 50 mg PO BID #60 tab 05/17/21 [Rx] Ondansetron HCl [Zofran] 4 mg PO Q8H PRN #30 tab 05/17/21 [Rx] Atorvastatin [Lipitor] 80 mg PO HS 30 Days #30 tab 06/13/21 [Rx] hydrALAZINE HCL [Apresoline] 50 mg PO TID 30 Days #90 tab 06/13/21 [Rx] Furosemide [Lasix] 40 mg PO BID #6 tablet 07/12/21 [Rx] Acetaminophen Tab [Tylenol] 650 mg PO Q4H PRN 07/13/21 [History] Nitroglycerin Sl Tabs [Nitrostat] 0.4 mg SL Q5M PRN 07/13/21 [History] Follow up Appointment(s)/Referral(s): None,Stated [Primary Care Provider] - 1-2 days Patient Instructions/Handouts: Hypertension (ED), Edema (ED) Discharge Disposition: Left Against Medical Advice
== END 2021-07-15 17:45 | disposition left against medical advice (07) ==
LOC: EC 19:16 → 6NMEDSUR 07-13 06:43
PROVIDERS: ADMIT Hospitalist; ATTEND Hospitalist
DX: I10 Essential (primary) hypertension (principal); N17.9 Acute kidney failure, unspecified; I95.9 Hypotension, unspecified; I16.0 Hypertensive urgency; J44.9 Chronic obstructive pulmonary disease, unspecified; I25.10 Atherosclerotic heart disease of native coronary artery without angina pectoris; K21.9 Gastro-esophageal reflux disease without esophagitis; E03.9 Hypothyroidism, unspecified; K57.90 Diverticulosis of intestine, part unspecified, without perforation or abscess without bleeding; G43.909 Migraine, unspecified, not intractable, without status migrainosus; G89.4 Chronic pain syndrome; M54.5 Low back pain; K44.9 Diaphragmatic hernia without obstruction or gangrene; E78.5 Hyperlipidemia, unspecified; M13.0 Polyarthritis, unspecified; K29.70 Gastritis, unspecified, without bleeding; Z53.29 Procedure and treatment not carried out because of patient's decision for other reasons; Z79.82 Long term (current) use of aspirin; Z79.02 Long term (current) use of antithrombotics/antiplatelets; Z79.899 Other long term (current) drug therapy; Z88.5 Allergy status to narcotic agent; Z88.6 Allergy status to analgesic agent; Z87.891 Personal history of nicotine dependence; Z86.74 Personal history of sudden cardiac arrest; Z86.718 Personal history of other venous thrombosis and embolism; Z87.11 Personal history of peptic ulcer disease; Z87.81 Personal history of (healed) traumatic fracture; Z90.49 Acquired absence of other specified parts of digestive tract; Z87.09 Personal history of other diseases of the respiratory system; Z95.5 Presence of coronary angioplasty implant and graft; Z98.1 Arthrodesis status; Z98.41 Cataract extraction status, right eye; Z98.890 Other specified postprocedural states; Z82.49 Family history of ischemic heart disease and other diseases of the circulatory system; Z80.6 Family history of leukemia; Z82.5 Family history of asthma and other chronic lower respiratory diseases
CPT/HCPCS: 96376; 96374; 96375; 96372; 99285; 36415; 93005; 93308; 80048 ×3; 84484; 85025 ×3; G0378 ×3; J2270; J0360; J1200; J1940; J1170 ×2

== ENCOUNTER 2021-07-20 13:51 | Emergency (ER) | payer MEDICARE, OTHER ==
[2021-07-20 13:57] VITALS: RESP 18
--- NOTE | 2021-07-20 15:19 | ED ---
General Adult HPI - General Chief complaint: Recheck/Abnormal Lab/Rx Stated complaint: Hypertension Time Seen by Provider: 07/20/21 13:55 Source: patient, EMS, RN notes reviewed Limitations: no limitations - History of Present Illness Initial comments: Patient is a pleasant [age]-year-old male presenting to the emergency department with concerns for high blood pressure. Patient does check his blood pressure regularly and was high today. Patient states it does normally run somewhat high. No recent changes in medication. No recent illness. No physical complaints. No chest pain or headache or weakness. - Related Data Home Medications Medication Instructions Recorded Confirmed Fluticasone Nasal [place] [Flonase 1 spr EA NOSTRIL BID 04/20/17 07/20/21 Nasal [place]] Morphine Sulfate ER [Ms Contin] 30 mg PO Q8H 10/10/17 07/20/21 tiZANidine [Zanaflex] 4 mg PO BID 02/26/18 07/20/21 Aspirin EC [Ecotrin Low Dose] 81 mg PO DAILY 01/02/20 07/20/21 oxyCODONE-APAP 10-325MG [Percocet 1 tab PO Q8H 01/02/20 07/20/21 10-325 mg] Prasugrel [Effient] 10 mg PO DAILY 08/06/20 07/20/21 lisinopriL 40 mg PO DAILY 08/06/20 07/20/21 Dicyclomine [Bentyl] 10 mg PO TID PRN 02/13/21 07/20/21 Pregabalin 100 mg PO BID 02/22/21 07/20/21 amLODIPine [Norvasc] 5 mg PO BID 05/04/21 07/20/21 Acetaminophen Tab [Tylenol] 650 mg PO Q4H PRN 07/13/21 07/20/21 Nitroglycerin Sl Tabs [Nitrostat] 0.4 mg SL Q5M PRN 07/13/21 07/20/21 Carvedilol [Coreg] 12.5 mg PO BID 07/20/21 07/20/21 Previous Rx's Medication Instructions Recorded Ezetimibe [Zetia] 10 mg PO DAILY #30 tab 05/24/19 Prochlorperazine [Compazine] 10 mg PO Q6H PRN #12 tab 03/04/21 Metoprolol Tartrate [Lopressor] 50 mg PO BID #60 tab 05/17/21 Ondansetron HCl [Zofran] 4 mg PO Q8H PRN #30 tab 05/17/21 Atorvastatin [Lipitor] 80 mg PO HS 30 Days #30 tab 06/13/21 hydrALAZINE HCL [Apresoline] 50 mg PO TID 30 Days #90 tab 06/13/21 Furosemide [Lasix] 40 mg PO BID #6 tablet 07/12/21 amLODIPine [Norvasc] 5 mg PO DAILY #5 tab 07/20/21 hydrALAZINE HCL [Apresoline] 50 mg PO TID #15 tab 07/20/21 Allergies Allergy/AdvReac Type Severity Reaction Status Date / Time ibuprofen [From Motrin] Allergy Rash/Hives Verified 07/20/21 15:08 ketorolac tromethamine Allergy Rash/Hives Verified 07/20/21 15:08 [From Toradol] Review of Systems ROS Statement: Those systems with pertinent positive or pertinent negative responses have been documented in the HPI. ROS Other: All systems not noted in ROS Statement are negative. Constitutional: Denies: fever Eyes: Denies: eye pain ENT: Denies: ear pain Respiratory: Denies: cough Cardiovascular: Denies: chest pain Endocrine: Denies: fatigue Gastrointestinal: Denies: abdominal pain Genitourinary: Denies: dysuria Musculoskeletal: Denies: arthralgia Skin: Denies: rash Neurological: Denies: headache, weakness Past Medical History Past Medical History: Coronary Artery Disease (CAD), Chest Pain / Angina, COPD, Deep Vein Thrombosis (DVT), GERD/Reflux, Hyperlipidemia, Hypertension, Osteoarthritis (OA), Thyroid Disorder Additional Past Medical History / Comment(s): Occasional palpitations, gastritis, small hiatal hernia, diverticular dx, pt states years ago he had PUD, chronic low back pain, chronic pain syndrome, migraines, DVT L arm, numbness/tingling bilateral lower legs, bilateral past R hand fracture, arthritis multiple joints, hyperthyroid, sinus problems. History of Any Multi-Drug Resistant Organisms: None Reported Past Surgical History: Back Surgery, Cholecystectomy, Heart Catheterization With Stent, Orthopedic Surgery Additional Past Surgical History / Comment(s): EGDs/colonoscopies, multiple low back surgeries, bilateral arm and bilateral thigh surgeries for brown recluse spider bites with infection, morphine pain pump insertion and removal due to infection, PCI with stents, L rotator cuff repair, L knee arthroscopy, cervical fusion/cage, R cataract removal. 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 He lived to be 82 yrs old. Mother History Unknown: Yes Family Medical History: Hypertension, Myocardial Infarction ([place]) Additional Family Medical History / Comment(s): Mother of a [place] at the age of 55yrs. Brother(s) Family Medical History: Cancer, COPD Additional Family Medical History / Comment(s): Leukemia General Exam Limitations: no limitations General appearance: alert, in no apparent distress Head exam: Present: normocephalic Eye exam: Present: normal appearance, PERRL Neck exam: Present: normal inspection Respiratory exam: Present: normal lung sounds bilaterally Cardiovascular Exam: Present: regular rate, normal rhythm GI/Abdominal exam: Present: soft. Absent: tenderness Extremities exam: Present: normal inspection Neurological exam: Present: alert, oriented X3, CN II-XII intact. Absent: motor sensory deficit Expanded Motor strength exam: RUE: 5, LUE: 5, RLE: 5, LLE: 5 Eye Response: (4) open spontaneously Motor Response: (6) obeys commands Verbal Response: (5) oriented Psychiatric exam: Present: normal affect, normal mood Skin exam: Present: normal color Course Vital Signs 07/20/21 07/20/21 07/20/21 13:53 13:55 13:57 Temperature 98.6 F Pulse Rate 69 88 88 Respiratory 18 18 Rate Blood Pressure 194/107 187/110 O2 Sat by Pulse 99 98 Oximetry 07/20/21 07/20/21 07/20/21 14:00 14:30 14:57 Temperature Pulse Rate 88 87 87 Respiratory 18 Rate Blood Pressure 194/107 185/107 188/101 O2 Sat by Pulse 98 97 Oximetry 08/07/20/21 07/20/21 15:00 15:30 15:57 Temperature Pulse Rate 85 87 Respiratory 18 Rate Blood Pressure 181/110 181/110 188/107 O2 Sat by Pulse 97 97 97 Oximetry 07/20/21 16:00 Temperature Pulse Rate Respiratory Rate Blood Pressure 181/103 O2 Sat by Pulse 97 Oximetry Medical Decision Making - Medical Decision Making Patient reevaluated and resting in bed, symptom-free. Patient states he had she did not take his Norvasc or Apresoline today and requests prescription for both of those until he can get it from his [place] supervisor. Disposition Clinical Impression: Hypertension Disposition: HOME SELF-CARE Condition: Stable Instructions (If sedation given, give patient instructions): Hypertension (ED) Additional Instructions: Prescription has been sent to pharmacy. Please follow-up with primary care physician in the next couple days for recheck. Return for uncontrolled blood pressure, worsening symptoms or other concerns. Prescriptions: hydrALAZINE HCL [Apresoline] 50 mg PO TID #15 tab amLODIPine [Norvasc] 5 mg PO DAILY #5 tab Is patient prescribed a controlled substance at d/c from ED?: No Referrals: Fannie Go MD [STAFF PHYSICIAN] - 1-2 days Armando Mascorro MD [REFERRING] - 1-2 days Time of Disposition: 17:05
[2021-07-20] MEDS: amLODIPine 5 MG TAB PO STA ×2 (15:27→17:44)
[2021-07-20] MEDS: hydrALAZINE HCL 50 MG TAB PO STA (15:27)
[2021-07-20 18:02] VITALS: BP 174/105; PULSE 70; TEMP 98
[2021-07-20] MEDS ORDERED: amLODIPine 5 MG TAB PO STA (18:20)
[2021-07-20] MEDS ORDERED: hydrALAZINE HCL 50 MG TAB PO STA (18:20)
== END 2021-07-20 18:15 | disposition home or self-care (01) ==
LOC: EC 13:51
DX: I10 Essential (primary) hypertension (principal); E78.5 Hyperlipidemia, unspecified; J44.9 Chronic obstructive pulmonary disease, unspecified; K21.9 Gastro-esophageal reflux disease without esophagitis; I25.10 Atherosclerotic heart disease of native coronary artery without angina pectoris; G43.909 Migraine, unspecified, not intractable, without status migrainosus; G89.4 Chronic pain syndrome; Z79.82 Long term (current) use of aspirin; Z79.899 Other long term (current) drug therapy; Z86.718 Personal history of other venous thrombosis and embolism; Z87.11 Personal history of peptic ulcer disease; Z87.19 Personal history of other diseases of the digestive system; Z87.891 Personal history of nicotine dependence; Z88.6 Allergy status to analgesic agent; Z90.49 Acquired absence of other specified parts of digestive tract; Z95.5 Presence of coronary angioplasty implant and graft
CPT/HCPCS: 99283

== ENCOUNTER 2021-07-30 22:00 | Emergency (ER) | payer MEDICARE, OTHER ==
[2021-07-30 22:08] VITALS: BP 160/85; PULSE 94; RESP 18; TEMP 97.7
[2021-07-30] MEDS ORDERED: METOCLOPRAMIDE 5 MG/ML 2 ML VIAL IM STA (22:50)
[2021-07-30] MEDS ORDERED: HYDROmorphone 1 MG/ML 1 ML SYRINGE IM STA (22:50)
--- NOTE | 2021-07-30 22:51 | ED ---
Headache HPI - General Chief Complaint: Headache Stated Complaint: Headache Time Seen by Provider: 07/30/21 22:44 Source: RN notes reviewed Mode of arrival: ambulatory Limitations: no limitations - History of Present Illness Initial Comments: 65-year-old presents emergency room chief complaint of a headache. Patient states is a migraine headache and which states are chronic in nature. Patient states is not different than usual for his normal headaches. Patient states that he seen spots which is normal denies any neck pain, neck stiffness, fevers or chills patient has slight nausea no vomiting no other complaints. - Related Data Home Medications Medication Instructions Recorded Confirmed Fluticasone Nasal [place] [Flonase 1 spr EA NOSTRIL BID 04/20/17 07/20/21 Nasal [place]] Morphine Sulfate ER [Ms Contin] 30 mg PO Q8H 10/10/17 07/20/21 tiZANidine [Zanaflex] 4 mg PO BID 02/26/18 07/20/21 Aspirin EC [Ecotrin Low Dose] 81 mg PO DAILY 01/02/20 07/20/21 oxyCODONE-APAP 10-325MG [Percocet 1 tab PO Q8H 01/02/20 07/20/21 10-325 mg] Prasugrel [Effient] 10 mg PO DAILY 08/06/20 07/20/21 lisinopriL 40 mg PO DAILY 08/06/20 07/20/21 Dicyclomine [Bentyl] 10 mg PO TID PRN 02/13/21 07/20/21 Pregabalin 100 mg PO BID 02/22/21 07/20/21 amLODIPine [Norvasc] 5 mg PO BID 05/04/21 07/20/21 Acetaminophen Tab [Tylenol] 650 mg PO Q4H PRN 07/13/21 07/20/21 Nitroglycerin Sl Tabs [Nitrostat] 0.4 mg SL Q5M PRN 07/13/21 07/20/21 Carvedilol [Coreg] 12.5 mg PO BID 07/20/21 07/20/21 Previous Rx's Medication Instructions Recorded Ezetimibe [Zetia] 10 mg PO DAILY #30 tab 05/24/19 Prochlorperazine [Compazine] 10 mg PO Q6H PRN #12 tab 03/04/21 Metoprolol Tartrate [Lopressor] 50 mg PO BID #60 tab 05/17/21 Ondansetron HCl [Zofran] 4 mg PO Q8H PRN #30 tab 05/17/21 Atorvastatin [Lipitor] 80 mg PO HS 30 Days #30 tab 06/13/21 hydrALAZINE HCL [Apresoline] 50 mg PO TID 30 Days #90 tab 06/13/21 Furosemide [Lasix] 40 mg PO BID #6 tablet 07/12/21 amLODIPine [Norvasc] 5 mg PO DAILY #5 tab 07/20/21 hydrALAZINE HCL [Apresoline] 50 mg PO TID #15 tab 07/20/21 Allergies Allergy/AdvReac Type Severity Reaction Status Date / Time ibuprofen [From Motrin] Allergy Rash/Hives Verified 07/30/21 22:08 ketorolac tromethamine Allergy Rash/Hives Verified 07/30/21 22:08 [From Toradol] Review of Systems ROS Statement: Those systems with pertinent positive or pertinent negative responses have been documented in the HPI. ROS Other: All systems not noted in ROS Statement are negative. Past Medical History Past Medical History: Coronary Artery Disease (CAD), Chest Pain / Angina, COPD, Deep Vein Thrombosis (DVT), GERD/Reflux, Hyperlipidemia, Hypertension, Osteoarthritis (OA), Thyroid Disorder Additional Past Medical History / Comment(s): Occasional palpitations, gastritis, small hiatal hernia, diverticular dx, pt states years ago he had PUD, chronic low back pain, chronic pain syndrome, migraines, DVT L arm, numbness/tingling bilateral lower legs, bilateral past R hand fracture, arthritis multiple joints, hyperthyroid, sinus problems. History of Any Multi-Drug Resistant Organisms: None Reported Past Surgical History: Back Surgery, Cholecystectomy, Heart Catheterization With Stent, Orthopedic Surgery Additional Past Surgical History / Comment(s): EGDs/colonoscopies, multiple low back surgeries, bilateral arm and bilateral thigh surgeries for brown recluse spider bites with infection, morphine pain pump insertion and removal due to infection, PCI with stents, L rotator cuff repair, L knee arthroscopy, cervical fusion/cage, R cataract removal. 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 He lived to be 82 yrs old. Mother History Unknown: Yes Family Medical History: Hypertension, Myocardial Infarction ([place]) Additional Family Medical History / Comment(s): Mother of a [place] at the age of 55yrs. Brother(s) Family Medical History: Cancer, COPD Additional Family Medical History / Comment(s): Leukemia General Exam Limitations: no limitations General appearance: alert, in no apparent distress Head exam: Present: atraumatic, normocephalic, normal inspection Eye exam: Present: normal appearance, PERRL, EOMI. Absent: scleral icterus, conjunctival injection, periorbital swelling ENT exam: Present: normal exam, normal oropharynx, mucous membranes moist Neck exam: Present: normal inspection, full ROM. Absent: tenderness, meningismus, lymphadenopathy Respiratory exam: Present: normal lung sounds bilaterally. Absent: respiratory distress, wheezes, rales, rhonchi, stridor Cardiovascular Exam: Present: regular rate, normal rhythm, normal heart sounds. Absent: systolic murmur, diastolic murmur, rubs, gallop, clicks Neurological exam: Present: alert, oriented X3, CN II-XII intact, reflexes normal. Absent: motor sensory deficit Course Vital Signs 07/30/21 22:04 Temperature 97.7 F Pulse Rate 94 Respiratory 18 Rate Blood Pressure 160/85 O2 Sat by Pulse 98 Oximetry Medical Decision Making - Medical Decision Making Patient was treated for migraine which are chronic in nature is not out of the usual for this patient patient was discharged in stable condition return parameters were discussed. Disposition Clinical Impression: Migraine headache Disposition: HOME SELF-CARE Condition: Stable Instructions (If sedation given, give patient instructions): Acute Headache (ED) Additional Instructions: Please return to the Emergency Department if symptoms worsen or any other concerns. Is patient prescribed a controlled substance at d/c from ED?: No Referrals: None,Stated [Primary Care Provider] - 1-2 days Time of Disposition: 22:51
== END 2021-07-30 23:15 | disposition home or self-care (01) ==
LOC: EC 22:00
DX: G43.909 Migraine, unspecified, not intractable, without status migrainosus (principal); I10 Essential (primary) hypertension; E78.5 Hyperlipidemia, unspecified; J44.9 Chronic obstructive pulmonary disease, unspecified; I25.10 Atherosclerotic heart disease of native coronary artery without angina pectoris; M19.90 Unspecified osteoarthritis, unspecified site; K21.9 Gastro-esophageal reflux disease without esophagitis; Z79.82 Long term (current) use of aspirin; Z79.899 Other long term (current) drug therapy; Z87.891 Personal history of nicotine dependence; Z82.49 Family history of ischemic heart disease and other diseases of the circulatory system
CPT/HCPCS: 96372 ×2; 99283; J2765; J1170

== ENCOUNTER 2021-08-28 19:02 | Observation (INO) | payer MEDICARE, OTHER ==
[2021-08-28] MEDS ORDERED: MORPHINE SULFATE 4 MG/ML SYRINGE IVP STA ×2 (19:44→21:44)
--- NOTE | 2021-08-28 19:51 | ED ---
General Adult HPI - General Chief complaint: Chest Pain Stated complaint: Chest Pain Time Seen by Provider: 08/28/21 19:32 Source: patient, RN notes reviewed, old records reviewed Mode of arrival: ambulatory Limitations: no limitations - History of Present Illness Initial comments: 65-year-old male presenting with chief complaint left-sided chest pain which began about 4 hours prior to arrival. This began at rest. He describes this as a sharp pain radiating to his left arm. He reports associated nausea. There is been no vomiting. No fever. Minimal cough without dyspnea. - Related Data Home Medications Medication Instructions Recorded Confirmed Morphine Sulfate ER [Ms Contin] 30 mg PO Q8H 10/10/17 08/28/21 tiZANidine [Zanaflex] 4 mg PO TID 02/26/18 08/28/21 oxyCODONE-APAP 10-325MG [Percocet 1 tab PO Q8H 01/02/20 08/28/21 10-325 mg] Prasugrel [Effient] 10 mg PO DAILY 08/06/20 08/28/21 Acetaminophen Tab [Tylenol] 650 mg PO Q4H PRN 07/13/21 08/28/21 Nitroglycerin Sl Tabs [Nitrostat] 0.4 mg SL Q5M PRN 07/13/21 08/28/21 Previous Rx's Medication Instructions Recorded Ezetimibe [Zetia] 10 mg PO DAILY #30 tab 05/24/19 Metoprolol Tartrate [Lopressor] 50 mg PO BID #60 tab 05/17/21 Atorvastatin [Lipitor] 80 mg PO HS 30 Days #30 tab 06/13/21 hydrALAZINE HCL [Apresoline] 50 mg PO TID 30 Days #90 tab 06/13/21 Allergies Allergy/AdvReac Type Severity Reaction Status Date / Time ibuprofen [From Motrin] Allergy Rash/Hives Verified 08/28/21 22:14 ketorolac tromethamine Allergy Rash/Hives Verified 08/28/21 22:14 [From Toradol] Review of Systems ROS Statement: Those systems with pertinent positive or pertinent negative responses have been documented in the HPI. ROS Other: All systems not noted in ROS Statement are negative. Past Medical History Past Medical History: Coronary Artery Disease (CAD), Chest Pain / Angina, COPD, Deep Vein Thrombosis (DVT), GERD/Reflux, Hyperlipidemia, Hypertension, Osteoarthritis (OA), Thyroid Disorder Additional Past Medical History / Comment(s): Occasional palpitations, gastritis, small hiatal hernia, diverticular dx, pt states years ago he had PUD, chronic low back pain, chronic pain syndrome, migraines, DVT L arm, numbness/tingling bilateral lower legs, bilateral past R hand fracture, arthritis multiple joints, hyperthyroid, sinus problems. History of Any Multi-Drug Resistant Organisms: None Reported Past Surgical History: Back Surgery, Cholecystectomy, Heart Catheterization With Stent, Orthopedic Surgery Additional Past Surgical History / Comment(s): EGDs/colonoscopies, multiple low back surgeries, bilateral arm and bilateral thigh surgeries for brown recluse spider bites with infection, morphine pain pump insertion and removal due to infection, PCI with stents, L rotator cuff repair, L knee arthroscopy, cervical fusion/cage, R cataract removal. 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 He lived to be 82 yrs old. Mother History Unknown: Yes Family Medical History: Hypertension, Myocardial Infarction ([place]) Additional Family Medical History / Comment(s): Mother of a [place] at the age of 55yrs. Brother(s) Family Medical History: Cancer, COPD Additional Family Medical History / Comment(s): Leukemia General Exam Limitations: no limitations General appearance: alert, in no apparent distress Head exam: Present: atraumatic, normocephalic Eye exam: Present: normal appearance, PERRL ENT exam: Present: normal exam Neck exam: Present: normal inspection. Absent: tenderness, meningismus Respiratory exam: Present: normal lung sounds bilaterally. Absent: respiratory distress, wheezes Cardiovascular Exam: Present: regular rate, normal rhythm GI/Abdominal exam: Present: soft. Absent: distended, tenderness, guarding, rebound Extremities exam: Present: normal inspection, normal capillary refill. Absent: pedal edema Neurological exam: Present: alert, oriented X3, CN II-XII intact. Absent: motor sensory deficit Psychiatric exam: Present: normal affect, normal mood Skin exam: Present: warm, dry, intact. Absent: cyanosis, diaphoretic Course Vital Signs 08/28/21 08/28/21 08/28/21 19:17 21:10 22:06 Temperature 97.6 F Pulse Rate 118 H 89 98 Respiratory 18 20 20 Rate Blood Pressure 123/75 157/102 146/115 O2 Sat by Pulse 98 99 98 Oximetry EKG Findings - EKG Comments: EKG Findings:: EKG: Sinus tachycardia, rate of 106, HI interval 152, QRS duration 88, QTC [address] segment elevation. Medical Decision Making - Medical Decision Making 65-year-old male presenting for evaluation chest pain, history of CAD. EKG sinus tachycardia without ST segment elevation, chest x-ray negative for acute cardio pulmonary findings, stable CBC, normal CMP, negative d-dimer, negative troponin. Patient states that he was told by cardiology that he may need a heart catheterization. He will be kept in observation for serial cardiac enzymes, telemetry, cardiology consultation. Case discussed with Dr. Chase - Lab Data Result diagrams: 08/28/21 19:32 08/28/21 19:32 Lab Results 08/28/21 08/28/21 08/28/21 Range/Units 19:32 19:32 19:32 WBC 5.9 (3.8-10.6) k/uL RBC 4.34 (4.30-5.90) m/uL Hgb 12.9 L (13.0-17.5) gm/dL Hct 39.8 (39.0-53.0) % MCV 91.7 (80.0-100.0) fL MCH 29.7 (25.0-35.0) pg MCHC 32.3 (31.0-37.0) g/dL RDW 14.0 (11.5-15.5) % Plt Count 352 (150-450) k/uL MPV 6.5 Neutrophils % 79 % Lymphocytes % 14 % Monocytes % 6 % Eosinophils % 1 % Basophils % 0 % Neutrophils # 4.7 (1.3-7.7) k/uL Lymphocytes # 0.8 L (1.0-4.8) k/uL Monocytes # 0.4 (0-1.0) k/uL Eosinophils # 0.0 (0-0.7) k/uL Basophils # 0.0 (0-0.2) k/uL PT 10.3 (9.0-12.0) sec INR 1.0 (<1.2) APTT 23.5 (22.0-30.0) sec D-Dimer 0.49 (<0.60) mg/L FEU Sodium 137 (137-145) mmol/L Potassium 4.1 (3.5-5.1) mmol/L Chloride 104 (98-107) mmol/L Carbon Dioxide 23 (22-30) mmol/L Anion Gap 10 mmol/L BUN 9 (9-20) mg/dL Creatinine 0.61 L (0.66-1.25) mg/dL Est GFR (CKD-EPI)AfAm >90 (>60 ml/min/1.73 sqM) Est GFR (CKD-EPI)NonAf >90 (>60 ml/min/1.73 sqM) Glucose 124 H (74-99) mg/dL Calcium 9.8 (8.4-10.2) mg/dL Magnesium 1.8 (1.6-2.3) mg/dL Total Bilirubin 0.6 (0.2-1.3) mg/dL AST 22 (17-59) U/L ALT 10 (4-49) U/L Alkaline Phosphatase 73 (38-126) U/L Troponin I (0.000-0.034) ng/mL Total Protein 7.6 (6.3-8.2) g/dL Albumin 4.7 (3.5-5.0) g/dL Lipase 52 (23-300) U/L 08/28/21 08/28/21 Range/Units 19:32 22:03 WBC (3.8-10.6) k/uL RBC (4.30-5.90) m/uL Hgb (13.0-17.5) gm/dL Hct (39.0-53.0) % MCV (80.0-100.0) fL MCH (25.0-35.0) pg MCHC (31.0-37.0) g/dL RDW (11.5-15.5) % Plt Count (150-450) k/uL MPV Neutrophils % % Lymphocytes % % Monocytes % % Eosinophils % % Basophils % % Neutrophils # (1.3-7.7) k/uL Lymphocytes # (1.0-4.8) k/uL Monocytes # (0-1.0) k/uL Eosinophils # (0-0.7) k/uL Basophils # (0-0.2) k/uL PT (9.0-12.0) sec INR (<1.2) APTT (22.0-30.0) sec D-Dimer (<0.60) mg/L FEU Sodium (137-145) mmol/L Potassium (3.5-5.1) mmol/L Chloride (98-107) mmol/L Carbon Dioxide (22-30) mmol/L Anion Gap mmol/L BUN (9-20) mg/dL Creatinine (0.66-1.25) mg/dL Est GFR (CKD-EPI)AfAm (>60 ml/min/1.73 sqM) Est GFR (CKD-EPI)NonAf (>60 ml/min/1.73 sqM) Glucose (74-99) mg/dL Calcium (8.4-10.2) mg/dL Magnesium (1.6-2.3) mg/dL Total Bilirubin (0.2-1.3) mg/dL AST (17-59) U/L ALT (4-49) U/L Alkaline Phosphatase (38-126) U/L Troponin I <0.012 <0.012 (0.000-0.034) ng/mL Total Protein (6.3-8.2) g/dL Albumin (3.5-5.0) g/dL Lipase (23-300) U/L Disposition Clinical Impression: Chest pain Disposition: ADMITTED IP TO THIS [facility] Condition: Stable Is patient prescribed a controlled substance at d/c from ED?: No Referrals: None,Stated [Primary Care Provider] - 1-2 days Brian Mina [STAFF PHYSICIAN] - 1-2 days Decision to Admit Reason: Admit from EC Decision Date: 08/28/21 Decision Time: 22:58
[2021-08-28 21:02] LABS: Basophils % (A) 0 %; Eosinophils % (A) 1 %; HCT 39.8 % (39.0-53.0); HGB 12.9 gm/dL (13.0-17.5); Lymphocytes # (A) 0.8 k/uL (1.0-4.8); Lymphocytes % (A) 14 %; MCH 29.7 pg (25.0-35.0); MCHC 32.3 g/dL (31.0-37.0); MCV 91.7 fL (80.0-100.0); Mean Platelet Volume 6.5; Monocytes # (A) 0.4 k/uL (0-1.0); Monocytes % (A) 6 %; Neutrophils # (A) 4.7 k/uL (1.3-7.7); Neutrophils % (A) 79 %; Platelet Count 352 k/uL (150-450); RBC 4.34 m/uL (4.30-5.90); WBC 5.9 k/uL (3.8-10.6)
--- NOTE | 2021-08-28 21:02 | XR ---
EXAMINATION TYPE: XR chest 2V DATE OF EXAM: 08/28/2021 COMPARISON: 06/11/2021 HISTORY: 65 years Male. STUDY INDICATION GIVEN: Chest Pain . TECHNIQUE: Frontal lateral chest radiographs IMPRESSION: Minimal bibasilar subsegmental atelectasis. No focal airspace disease, pneumothorax or pleural effusi on. The heart and mediastinum are normal in silhouette. No acute osseous abnormality. Partially seen fusion hardware in the cervical spine. Overall no significant change in appearance of chest radiograp h compared to prior.
[2021-08-28 21:11] LABS: ALT 10 U/L (4-49); AST 22 U/L (17-59); African American GFR (CKD) >90 (>60 ml/min/1.73 sqM); Albumin 4.7 g/dL (3.5-5.0); Alkaline Phosphatase 73 U/L (38-126); Anion Gap 10 mmol/L; Blood Urea Nitrogen 9 mg/dL (9-20); Calcium 9.8 mg/dL (8.4-10.2); Carbon Dioxide 23 mmol/L (22-30); Chloride 104 mmol/L (98-107); Glucose 124 mg/dL (74-99); Lipase 52 U/L (23-300); Magnesium 1.8 mg/dL (1.6-2.3); Non-African American GFR(CKD) >90 (>60 ml/min/1.73 sqM); Potassium 4.1 mmol/L (3.5-5.1); Sodium 137 mmol/L (137-145); Total Bilirubin 0.6 mg/dL (0.2-1.3); Total Protein 7.6 g/dL (6.3-8.2)
[2021-08-28 21:17] LABS: Partial Thromboplastin Time 23.5 sec (22.0-30.0); Prothrombin Time 10.3 sec (9.0-12.0)
[2021-08-28] MEDS ORDERED: ASPIRIN 325 MG TAB PO STA (22:52)
[2021-08-28] MEDS ORDERED: ACETAMINOPHEN TAB 325 MG TAB PO PRN (22:52)
[2021-08-28] MEDS ORDERED: NALOXONE 0.4 MG/ML 1 ML VIAL IV PRN (22:52)
[2021-08-29 00:24] VITALS: RESP 18
--- NOTE | 2021-08-29 00:57 | P.HPIM ---
History of Present Illness H&P Date: 08/29/21 The patient is a 65-year-old male with a PMH of hypertension, hyperlipidemia, and coronary artery disease who presented to the emergency room with multiple complaints. The patient reports that since 4:30 PM today, he has had a sharp and pressure-like left-sided and substernal chest discomfort. Reports the pain is nonexertional, radiating to the left arm., 8 out of 10 on maximal intensity with no alleviating or exacerbating features. He reports some associated nausea without vomiting. Denied fever, chills, cough. Denied lower extremity swelling or pain. In the emergency room, EKG revealed sinus tachycardia [address]/T-wave changes noted as reviewed by me. Chest x-ray was unremarkable. Laboratory evaluation revealed a troponin of less than 0.0122. Review of systems: Pertinent positives and negatives as discussed in HPI, a complete review of systems was performed and all other systems are negative. Physical examination: General: non toxic, no distress, appears at stated age, normal weight Derm: no unusual rashes/lesions no unusual ecchymoses, warm, dry Head: atraumatic, normocephalic, symmetric Eyes: EOMI, no lid lag, anicteric sclera, pupils equal round reactive to light ENT: Nose and ears atraumatic, no thrush, no pharyngeal erythema Neck: No thyromegaly, no cervical lymphadenopathy, trachea midline, supple Mouth: no lip lesion, mucus membranes moist Cardiovascular: S1S2 reg, no murmur, positive posterior tibial pulse bilateral, no edema, capillary refill less than 2 seconds Lungs: CTA bilateral, no rhonchi, no rales , no accessory muscle use Abdominal: soft, nontender to palpation, no guarding, no appreciable organomegaly, normal bowel sounds Ext: no gross muscle atrophy, muscle strength 5 out of 5 in all 4 extremities grossly, no contractures, Neuro: CN II-XI grossly intact, light touch intact all 4 extremities, finger to nose within normal limits, Psych: Alert, oriented, appropriate affect Assessment/plan Chest pain, rule out ACS -Cardiology consult -Cardiac monitoring -Trend troponin -Continue with aspirin Chronic conditions: Hypertension, hyperlipidemia -Continue with home meds DVT prophylaxis -Heparin subq The patient is admitted with an anticipated less than 2 midnight stay for evaluation of chest pain CODE STATUS: Full Code Discussed with: Patient Anticipated discharge date: in am Anticipated discharge place: Home Past Medical History Past Medical History: Coronary Artery Disease (CAD), Chest Pain / Angina, COPD, Deep Vein Thrombosis (DVT), GERD/Reflux, Hyperlipidemia, Hypertension, Osteoarthritis (OA), Thyroid Disorder Additional Past Medical History / Comment(s): Occasional palpitations, gastritis, small hiatal hernia, diverticular dx, pt states years ago he had PUD, chronic low back pain, chronic pain syndrome, migraines, DVT L arm, numbnes s/tingling bilateral lower legs, bilateral past R hand fracture, arthritis multiple joints, hyperthyroid, sinus problems. History of Any Multi-Drug Resistant Organisms: None Reported Past Surgical History: Back Surgery, Cholecystectomy, Heart Catheterization With Stent, Orthopedic Surgery Additional Past Surgical History / Comment(s): EGDs/colonoscopies, multiple low back surgeries, bilateral arm and bilateral thigh surgeries for brown recluse spider bites with infection, morphine pain pump insertion and removal due to infection, PCI with stents, L rotator cuff repair, L knee arthroscopy, cervical fusion/cage, R cataract removal. 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 states he was "down for 8 minutes" Date of Last Stent Placement:: 10/12/17 Past Psychological History: No Psychological Hx Reported Additional Psychological History / Comment(s): Pt resides with his spouse. He uses a walker and cane to ambulate. He does not drive, neither does his spouse, they us the bus. Smoking Status: Former smoker Past Alcohol Use History: None Reported Additional Past Alcohol Use History / Comment(s): Pt states he quit smoking when he 19 and smoked 1ppd. Past Drug Use History: None Reported - Past Family History Father Family Medical History: No Reported History Additional Family Medical History / Comment(s): Father had back problems. He lived to be 82 yrs old. Mother History Unknown: Yes Family Medical History: Hypertension, Myocardial Infarction ([place]) Additional Family Medical History / Comment(s): Mother of a [place] at the age of 55yrs. Brother(s) Family Medical History: Cancer, COPD Additional Family Medical History / Comment(s): Leukemia Medications and Allergies Home Medications Medication Instructions Recorded Confirmed Type Morphine Sulfate ER [Ms Contin] 30 mg PO Q8H 10/10/17 08/28/21 History tiZANidine [Zanaflex] 4 mg PO TID 02/26/18 08/28/21 History Ezetimibe [Zetia] 10 mg PO DAILY #30 tab 05/24/19 08/28/21 Rx oxyCODONE-APAP 10-325MG [Percocet 1 tab PO Q8H 01/02/20 08/28/21 History 10-325 mg] Prasugrel [Effient] 10 mg PO DAILY 08/06/20 08/28/21 History Metoprolol Tartrate [Lopressor] 50 mg PO BID #60 tab 05/17/21 08/28/21 Rx Atorvastatin [Lipitor] 80 mg PO HS 30 Days #30 tab 06/13/21 08/28/21 Rx hydrALAZINE HCL [Apresoline] 50 mg PO TID 30 Days #90 tab 06/13/21 08/28/21 Rx Acetaminophen Tab [Tylenol] 650 mg PO Q4H PRN 07/13/21 08/28/21 History Nitroglycerin Sl Tabs [Nitrostat] 0.4 mg SL Q5M PRN 07/13/21 08/28/21 History Allergies Allergy/AdvReac Type Severity Reaction Status Date / Time ibuprofen [From Motrin] Allergy Rash/Hives Verified 08/28/21 22:14 ketorolac tromethamine Allergy Rash/Hives Verified 08/28/21 22:14 [From Toradol] Physical Exam Vitals: Vital Signs Temp Pulse Pulse Pulse Resp BP BP 08/29/21 00:23 97.7 F 92 18 149/91 08/29/21 00:08 98.7 F 91 20 156/96 08/28/21 23:27 98.7 F 92 16 148/94 08/28/21 22:06 98 20 146/115 08/28/21 21:10 89 20 157/102 08/28/21 19:40 96 08/28/21 19:17 97.6 F 118 H 18 123/75 Pulse Ox 08/29/21 00:23 100 08/29/21 00:08 98 08/28/21 23:27 96 08/28/21 22:06 98 08/28/21 21:10 99 08/28/21 19:40 08/28/21 19:17 98 Intake and Output 08/28/21 08/28/21 08/29/21 14:59 22:59 06:59 Other: Weight 79.379 kg 79.379 kg Results CBC & Chem 7: 08/28/21 19:32 08/28/21 19:32 Labs: Abnormal Lab Results - Last 24 Hours (Table) 08/28/21 08/28/21 Range/Units 19:32 19:32 Hgb 12.9 L (13.0-17.5) gm/dL Lymphocytes # 0.8 L (1.0-4.8) k/uL Creatinine 0.61 L (0.66-1.25) mg/dL Glucose 124 H (74-99) mg/dL Thrombosis Risk Factor Assmnt - Choose All That Apply Each Factor Represents 1 point: Abnormal pulmonary function (COPD) Each Risk Factor Represents 2 Points: Age 61-74 years Each Risk Factor Represents 3 Points: History of DVT/PE Thrombosis Risk Factor Assessment Total Risk Factor Score: 6 Thrombosis Risk Factor Assessment Level: High Risk
[2021-08-29] MEDS: oxyCODONE-APAP 10-325MG 1 EACH TAB PO SCH ×2 (01:37→08:15)
[2021-08-29] MEDS ORDERED: HEPARIN SODIUM,PORCINE/PF 5,000 UNIT/0.5 ML SYRINGE SQ SCH (08:00)
[2021-08-29 08:09] VITALS: BP 141/82; PULSE 88; TEMP 97.9
[2021-08-29] MEDS ORDERED: hydrALAZINE HCL 50 MG TAB PO SCH (09:00)
[2021-08-29] MEDS ORDERED: PRASUGREL 10 MG TAB PO SCH (09:00)
[2021-08-29] MEDS ORDERED: tiZANidine 4 MG TAB PO SCH (09:00)
[2021-08-29] MEDS ORDERED: METOPROLOL TARTRATE 50 MG TAB PO SCH (09:00)
[2021-08-29] MEDS ORDERED: EZETIMIBE 10 MG TAB PO SCH (09:00)
[2021-08-29] MEDS ORDERED: MORPHINE SULFATE ER 30 MG TABLET PO SCH (09:45)
--- NOTE | 2021-08-29 10:12 | P.CRDCN ---
History of Present Illness History of present illness: HISTORY OF PRESENTING ILLNESS This is a pleasant 65-year-old male past medical history significant for coronary artery disease s/p PCI of the LAD 2017, DVT, COPD, hypertension, dyslipidemia and chronic pain. He follows in the office with Dr. Go. We have been asked to see in consultation for chest pain. He states yesterday at 1630 in the afternoon he started having pain in the left precordial region that radiated to the left shoulder and neck. Associated with shortness of breath. He also felt discomfort in the left axilla and torso. In April of this year he underwent a Lexiscan stress test that was negative for reversible cardiac ischemia. EKG on arrival reveals sinus tachycardia heart rate of [address] or T wave abnormalities noted. He was here in June and had an echocardiogram revealing preserved LV systolic function with ejection fraction 55-60%. Chest x-ray reveals minimal bibasilar atelectasis with no acute cardiopulmonary process noted. Laboratory data reviewed, WBC 5.9, hemoglobin 12.9, platelets 352, d- dimer 0.49, sodium 137, potassium 4.1, creatinine 0.61, magnesium 1.8 and troponin negative 4. Current daily cardiac medications include Effient 10 mg daily, Lopressor 50 mg twice a day, hydralazine 50 mg 3 times a day, Zetia 10 mg daily and atorvastatin 80 mg daily. Most recent cardiac catheterization performed in 2018 revealed patent stents in the previously stented LAD, left main free of significant disease, RCA free of significant disease and circumflex free of significant disease. REVIEW OF SYSTEMS At the time of my exam: CONSTITUTIONAL: Denies fever or chills. CARDIOVASCULAR: Complains of chest pain. Denies shortness of breath, orthopnea, PND or palpitations. RESPIRATORY: Denies cough. GASTROINTESTINAL: Denies abdominal pain, diarrhea, constipation, nausea or vomiting. MUSCULOSKELETAL: Denies myalgias. NEUROLOGIC: Denies numbness, tingling, headache or weakness. ENDOCRINE: Denies fatigue, weight change, polydipsia or polyurina. GENITOURINARY: Denies burning, hematuria or urgency with micturation. HEMATOLOGIC: Denies history of anemia or bleeding. PHYSICAL EXAMINATION Blood pressure 141/82 heart rate 88 afebrile and maintaining oxygen saturation on room air. CONSTITUTIONAL: No apparent distress. HEENT: Head is normocephalic. Pupils are equal, round. Sclerae anicteric. Mucous membranes of the mouth are moist. No JVD. No carotid bruit. CHEST EXAMINATION: Lungs are clear to auscultation. No chest wall tenderness is noted on palpation or with deep breathing. HEART EXAMINATION: Regular rate and rhythm. S1, S2 heard. No murmurs, gallops or rub. ABDOMEN: Soft, nontender. EXTREMITIES: 2+ peripheral pulses, no lower extremity edema and no calf tenderness. NEUROLOGIC EXAMINATION: Patient is awake, alert and oriented x3. ASSESSMENT Chest pain Coronary artery disease status post PCI of the LAD 2017 COPD Hypertension Dyslipidemia Chronic pain PLAN An acute coronary event has been ruled out. Recent stress test reviewed. No further cardiac work-up at this time. Follow up with Dr. Go upon discharge. Thank you kindly for this consultation. Nurse Practitioner note has been reviewed, I agree with a documented findings and plan of care. Patient was seen and examined. Past Medical History Past Medical History: Coronary Artery Disease (CAD), Chest Pain / Angina, COPD, Deep Vein Thrombosis (DVT), GERD/Reflux, Hyperlipidemia, Hypertension, Osteoarthritis (OA), Thyroid Disorder Additional Past Medical History / Comment(s): Occasional palpitations, gastritis, small hiatal hernia, diverticular dx, pt states years ago he had PUD, chronic low back pain, chronic pain syndrome, migraines, DVT L arm, numbness/tingling bilateral lower legs, bilateral past R hand fracture, arthritis multiple joints, hyperthyroid, sinus problems. History of Any Multi-Drug Resistant Organisms: None Reported Past Surgical History: Back Surgery, Cholecystectomy, Heart Catheterization With Stent, Orthopedic Surgery Additional Past Surgical History / Comment(s): EGDs/colonoscopies, multiple low back surgeries, bilateral arm and bilateral thigh surgeries for brown recluse spider bites with infection, morphine pain pump insertion and removal due to infection, PCI with stents, L rotator cuff repair, L knee arthroscopy, cervical fusion/cage, R cataract removal. 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 states he was "down for 8 minutes" Date of Last Stent Placement:: 10/12/17 Past Psychological History: No Psychological Hx Reported Additional Psychological History / Comment(s): Pt resides with his spouse. He uses a walker and cane to ambulate. He does not drive, neither does his spouse, they us the bus. Smoking Status: Former smoker Past Alcohol Use History: None Reported Additional Past Alcohol Use History / Comment(s): Pt states he quit smoking when he 19 and smoked 1ppd. Past Drug Use History: None Reported - Past Family History Father Family Medical History: No Reported History Additional Family Medical History / Comment(s): Father had back problems. He lived to be 82 yrs old. Mother History Unknown: Yes Family Medical History: Hypertension, Myocardial Infarction ([place]) Additional Family Medical History / Comment(s): Mother of a [place] at the age of 55yrs. Brother(s) Family Medical History: Cancer, COPD Additional Family Medical History / Comment(s): Leukemia Medications and Allergies Home Medications Medication Instructions Recorded Confirmed Type Morphine Sulfate ER [Ms Contin] 30 mg PO Q8H 10/10/17 08/28/21 History tiZANidine [Zanaflex] 4 mg PO TID 02/26/18 08/28/21 History Ezetimibe [Zetia] 10 mg PO DAILY #30 tab 05/24/19 08/28/21 Rx oxyCODONE-APAP 10-325MG [Percocet 1 tab PO Q8H 01/02/20 08/28/21 History 10-325 mg] Prasugrel [Effient] 10 mg PO DAILY 08/06/20 08/28/21 History Metoprolol Tartrate [Lopressor] 50 mg PO BID #60 tab 05/17/21 08/28/21 Rx Atorvastatin [Lipitor] 80 mg PO HS 30 Days #30 tab 06/13/21 08/28/21 Rx hydrALAZINE HCL [Apresoline] 50 mg PO TID 30 Days #90 tab 06/13/21 08/28/21 Rx Acetaminophen Tab [Tylenol] 650 mg PO Q4H PRN 07/13/21 08/28/21 History Nitroglycerin Sl Tabs [Nitrostat] 0.4 mg SL Q5M PRN 07/13/21 08/28/21 History Allergies Allergy/AdvReac Type Severity Reaction Status Date / Time ibuprofen [From Motrin] Allergy Rash/Hives Verified 08/28/21 22:14 ketorolac tromethamine Allergy Rash/Hives Verified 08/28/21 22:14 [From Toradol] Physical Exam Vitals: Vital Signs Temp Pulse Pulse Pulse Resp BP BP 08/29/21 07:00 97.9 F 88 18 141/82 08/29/21 02:00 92 18 08/29/21 00:30 91 18 08/29/21 00:23 97.7 F 92 18 149/91 08/29/21 00:08 98.7 F 91 20 156/96 08/28/21 23:27 98.7 F 92 16 148/94 08/28/21 22:06 98 20 146/115 08/28/21 21:10 89 20 157/102 08/28/21 19:40 96 08/28/21 19:17 97.6 F 118 H 18 123/75 Pulse Ox 08/29/21 07:00 97 08/29/21 02:00 08/29/21 00:30 08/29/21 00:23 100 08/29/21 00:08 98 08/28/21 23:27 96 08/28/21 22:06 98 08/28/21 21:10 99 08/28/21 19:40 08/28/21 19:17 98 Intake and Output 08/28/21 08/29/21 08/29/21 22:59 06:59 14:59 Other: Voiding Method Toilet Toilet # Voids 1 Weight 79.379 kg 79.379 kg Results 08/28/21 19:32 08/28/21 19:32 Cardiac Enzymes 08/28/21 08/28/21 08/28/21 Range/Units 19:32 19:32 22:03 AST 22 (17-59) U/L Troponin I <0.012 <0.012 (0.000-0.034) ng/mL 08/29/21 08/29/21 Range/Units 00:07 03:46 AST (17-59) U/L Troponin I <0.012 <0.012 (0.000-0.034) ng/mL Coagulation 08/28/21 Range/Units 19:32 PT 10.3 (9.0-12.0) sec APTT 23.5 (22.0-30.0) sec CBC 08/28/21 Range/Units 19:32 WBC 5.9 (3.8-10.6) k/uL RBC 4.34 (4.30-5.90) m/uL Hgb 12.9 L (13.0-17.5) gm/dL Hct 39.8 (39.0-53.0) % Plt Count 352 (150-450) k/uL Comprehensive Metabolic Panel 08/28/21 Range/Units 19:32 Sodium 137 (137-145) mmol/L Potassium 4.1 (3.5-5.1) mmol/L Chloride 104 (98-107) mmol/L Carbon Dioxide 23 (22-30) mmol/L BUN 9 (9-20) mg/dL Creatinine 0.61 L (0.66-1.25) mg/dL Glucose 124 H (74-99) mg/dL Calcium 9.8 (8.4-10.2) mg/dL AST 22 (17-59) U/L ALT 10 (4-49) U/L Alkaline Phosphatase 73 (38-126) U/L Total Protein 7.6 (6.3-8.2) g/dL Albumin 4.7 (3.5-5.0) g/dL Current Medications Generic Name Dose Route Start Last Admin Trade Name Freq PRN Reason Stop Dose Admin Acetaminophen 650 mg 08/28/21 22:52 Acetaminophen Tab 325 Mg Tab PO Q6HR PRN Mild Pain or Fever > 100.5 Atorvastatin Calcium 80 mg 08/29/21 21:00 Atorvastatin 80 Mg Tab PO HS YESICA Ezetimibe 10 mg 08/29/21 09:00 08/29/21 08:15 Ezetimibe 10 Mg Tab PO 10 mg DAILY YESICA Administration Heparin Sodium (Porcine) 5,000 unit 08/29/21 08:00 08/29/21 08:15 Heparin Sodium,Porcine/Pf 5,000 Unit/0.5 Ml Syringe SQ 5,000 unit Q8HR YESICA Administration Hydralazine HCl 50 mg 08/29/21 09:00 08/29/21 08:15 Hydralazine Hcl 50 Mg Tab PO 50 mg TID YESICA Administration Metoprolol Tartrate 50 mg 08/29/21 09:00 08/29/21 08:15 Metoprolol Tartrate 50 Mg Tab PO 50 mg BID YESICA Administration Naloxone HCl 0.2 mg 08/28/21 22:52 Naloxone 0.4 Mg/Ml 1 Ml Vial IV Q2M PRN Opioid Reversal Oxycodone/Acetaminophen 1 each 10/07/21 01:00 08/29/21 08:15 Oxycodone-Apap 10-325mg 1 Each Tab PO 1 each Q8H YESICA Administration Prasugrel 10 mg 08/29/21 09:00 08/29/21 08:15 Prasugrel 10 Mg Tab PO 10 mg DAILY YESICA Administration Tizanidine HCl 4 mg 08/29/21 09:00 08/29/21 08:15 Tizanidine 4 Mg Tab PO 4 mg TID YESICA Administration Intake and Output 08/28/21 08/29/21 08/29/21 22:59 06:59 14:59 Other: Voiding Method Toilet Toilet # Voids 1 Weight 79.379 kg 79.379 kg 08/28/21 19:32 08/28/21 19:32
--- NOTE | 2021-08-29 13:57 | P.DS ---
Providers Date of admission: 08/28/21 22:52 Expected date of discharge: 08/29/21 Attending physician: Willi Chase MD Consults: 08/28/21 22:53 Consult Physician Routine Consulting Provider: Fannie Go Consult Reason/Comments: cp Do you want consulting provider notified?: Yes Primary care physician: Stated None Hospital Course: Chest pain, rule out ACS Narcotic Dependence HTN HLD Patient who is well known to this hospital and to cardiology presented for episode of chest pain. His troponins were negative x 4, and he had recent workup with echo and stress test, which were negative for reversible ischemia. Pt cleared by cardiology for discharge home with follow up with Dr. Go in clinic. Notably, patient has narcotic prescriptions for which he is supposed to be following with pain clinic. His pain improves when restarted on his ms contin and norco. I did mention to him that these medications likely contribute to his presentation and feelings of pain, and that long-term the goal is to reduce and eliminate the use of these medications. Pt stable for discharge with PCP and cardiology follow up. Assessment: Gen: awake, alert HEENT: normocephalic, atraumatic, good hearing acuity, moist mucous membranes Resp: good air exchange, breathing comfortably with no accessory muscle use, clear to auscultation bilaterally CVS: good distal perfusion x 4, regular rate and rhythm without murmurs GI: soft, NTTP, ND : no SPT, no CVAT, hobbs catheter not present MSK: no pitting edema, no clubbing Neuro: non-focal, moving all extremities Psych: cooperative, euthymic mood Patient Condition at Discharge: Good Plan - Discharge Summary New Discharge Prescriptions: Continue Morphine Sulfate ER [Ms Contin] 30 mg PO Q8H tiZANidine [Zanaflex] 4 mg PO TID Ezetimibe [Zetia] 10 mg PO DAILY #30 tab oxyCODONE-APAP 10-325MG [Percocet 10-325 mg] 1 tab PO Q8H Prasugrel [Effient] 10 mg PO DAILY Metoprolol Tartrate [Lopressor] 50 mg PO BID #60 tab hydrALAZINE HCL [Apresoline] 50 mg PO TID 30 Days #90 tab Atorvastatin [Lipitor] 80 mg PO HS 30 Days #30 tab Nitroglycerin Sl Tabs [Nitrostat] 0.4 mg SL Q5M PRN PRN Reason: Chest Pain Acetaminophen Tab [Tylenol] 650 mg PO Q4H PRN PRN Reason: Fever And/Or Mild Pain Discharge Medication List Morphine Sulfate ER [Ms Contin] 30 mg PO Q8H 10/10/17 [History] tiZANidine [Zanaflex] 4 mg PO TID 02/26/18 [History] Ezetimibe [Zetia] 10 mg PO DAILY #30 tab 05/24/19 [Rx] oxyCODONE-APAP 10-325MG [Percocet 10-325 mg] 1 tab PO Q8H 01/02/20 [History] Prasugrel [Effient] 10 mg PO DAILY 08/06/20 [History] Metoprolol Tartrate [Lopressor] 50 mg PO BID #60 tab 05/17/21 [Rx] Atorvastatin [Lipitor] 80 mg PO HS 30 Days #30 tab 06/13/21 [Rx] hydrALAZINE HCL [Apresoline] 50 mg PO TID 30 Days #90 tab 06/13/21 [Rx] Acetaminophen Tab [Tylenol] 650 mg PO Q4H PRN 07/13/21 [History] Nitroglycerin Sl Tabs [Nitrostat] 0.4 mg SL Q5M PRN 07/13/21 [History] Follow up Appointment(s)/Referral(s): None,Stated [Primary Care Provider] - 1-2 days Brian Mina [STAFF PHYSICIAN] - 1-2 days Patient Instructions/Handouts: Chest Pain (DC) Discharge Disposition: HOME SELF-CARE
[2021-08-29] MEDS ORDERED: ATORVASTATIN 80 MG TAB PO SCH (21:00)
== END 2021-08-29 13:54 | disposition home or self-care (01) ==
LOC: EC 19:02 → 6NMEDSUR 22:52
PROVIDERS: ADMIT Internal Medicine; ATTEND Internal Medicine
DX: R07.89 Other chest pain (principal); R07.2 Precordial pain; F11.20 Opioid dependence, uncomplicated; I10 Essential (primary) hypertension; E78.5 Hyperlipidemia, unspecified; I25.10 Atherosclerotic heart disease of native coronary artery without angina pectoris; R11.0 Nausea; R00.0 Tachycardia, unspecified; M79.622 Pain in left upper arm; J44.9 Chronic obstructive pulmonary disease, unspecified; K21.9 Gastro-esophageal reflux disease without esophagitis; M19.90 Unspecified osteoarthritis, unspecified site; R00.2 Palpitations; K44.9 Diaphragmatic hernia without obstruction or gangrene; G89.4 Chronic pain syndrome; M54.5 Low back pain; G43.909 Migraine, unspecified, not intractable, without status migrainosus; R20.0 Anesthesia of skin; R20.2 Paresthesia of skin; E05.90 Thyrotoxicosis, unspecified without thyrotoxic crisis or storm; Z20.822 Contact with and (suspected) exposure to COVID-19; Z90.49 Acquired absence of other specified parts of digestive tract; Z95.5 Presence of coronary angioplasty implant and graft; Z86.718 Personal history of other venous thrombosis and embolism; Z87.11 Personal history of peptic ulcer disease; Z86.19 Personal history of other infectious and parasitic diseases; Z87.891 Personal history of nicotine dependence; Z86.711 Personal history of pulmonary embolism; Z79.899 Other long term (current) drug therapy; Z79.02 Long term (current) use of antithrombotics/antiplatelets; Z88.8 Allergy status to other drugs, medicaments and biological substances; Z82.49 Family history of ischemic heart disease and other diseases of the circulatory system; Z82.5 Family history of asthma and other chronic lower respiratory diseases; Z80.6 Family history of leukemia
CPT/HCPCS: 96372; 96376; 96374; 99285; 36415; 93005; 85379; 80053; 83690; 83735; 84484 ×2; 85025; 85610; 85730; 87635; 71046; G0378 ×2; J2270; J1644

== ENCOUNTER 2021-09-01 22:47 | Emergency (ER) | payer MEDICARE, OTHER ==
[2021-09-01] MEDS ORDERED: HYDROmorphone 1 MG/ML 1 ML SYRINGE IM STA (23:25)
[2021-09-01] MEDS ORDERED: PROCHLORPERAZINE 5 MG TAB PO STA (23:25)
--- NOTE | 2021-09-01 23:26 | ED ---
Headache HPI - General Chief Complaint: Headache Stated Complaint: Migraine Time Seen by Provider: 09/01/21 23:25 Source: RN notes reviewed, old records reviewed Mode of arrival: ambulatory Limitations: no limitations - History of Present Illness Initial Comments: This is a 65-year-old male to the ER for evaluation. Patient presents originally with was in the ER for unknown complication. Patient did check an has patient for headache that it is does admit to develop. Emergency. Patient is of recent hospital admission for chest pain. No chest pain currently. No other complaints. Patient states his headache is typical migraine. No recent trauma or fever MD Complaint: headache, "migraine" -: hour(s) Onset Description: gradual Location: right, left, frontal Severity: moderate Severity scale (1-10): 4 Quality: aching, throbbing Consistency: intermittent Improves With: nothing Worsens With: none Associated Symptoms: nausea Other Symptoms: chest pain (Patient does always does suffer from chest pain) Treatments Prior to Arrival: none - Related Data Home Medications Medication Instructions Recorded Confirmed Morphine Sulfate ER [Ms Contin] 30 mg PO Q8H 10/10/17 08/28/21 tiZANidine [Zanaflex] 4 mg PO TID 02/26/18 08/28/21 oxyCODONE-APAP 10-325MG [Percocet 1 tab PO Q8H 01/02/20 08/28/21 10-325 mg] Prasugrel [Effient] 10 mg PO DAILY 08/06/20 08/28/21 Acetaminophen Tab [Tylenol] 650 mg PO Q4H PRN 07/13/21 08/28/21 Nitroglycerin Sl Tabs [Nitrostat] 0.4 mg SL Q5M PRN 07/13/21 08/28/21 Previous Rx's Medication Instructions Recorded Ezetimibe [Zetia] 10 mg PO DAILY #30 tab 05/24/19 Metoprolol Tartrate [Lopressor] 50 mg PO BID #60 tab 05/17/21 Atorvastatin [Lipitor] 80 mg PO HS 30 Days #30 tab 06/13/21 hydrALAZINE HCL [Apresoline] 50 mg PO TID 30 Days #90 tab 06/13/21 Allergies Allergy/AdvReac Type Severity Reaction Status Date / Time ibuprofen [From Motrin] Allergy Rash/Hives Verified 09/01/21 23:07 ketorolac tromethamine Allergy Rash/Hives Verified 09/01/21 23:07 [From Toradol] Review of Systems ROS Statement: Those systems with pertinent positive or pertinent negative responses have been documented in the HPI. ROS Other: All systems not noted in ROS Statement are negative. Past Medical History Past Medical History: Coronary Artery Disease (CAD), Chest Pain / Angina, COPD, Deep Vein Thrombosis (DVT), GERD/Reflux, Hyperlipidemia, Hypertension, Ost eoarthritis (OA), Thyroid Disorder Additional Past Medical History / Comment(s): Occasional palpitations, gastritis, small hiatal hernia, diverticular dx, pt states years ago he had PUD, chronic low back pain, chronic pain syndrome, migraines, DVT L arm, numbness/tingling bilateral lower legs, bilateral past R hand fracture, arthritis multiple joints, hyperthyroid, sinus problems. History of Any Multi-Drug Resistant Organisms: None Reported Past Surgical History: Back Surgery, Cholecystectomy, Heart Catheterization With Stent, Orthopedic Surgery Additional Past Surgical History / Comment(s): EGDs/colonoscopies, multiple low back surgeries, bilateral arm and bilateral thigh surgeries for brown recluse spider bites with infection, morphine pain pump insertion and removal due to infection, PCI with stents, L rotator cuff repair, L knee arthroscopy, cervical fusion/cage, R cataract removal. 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 He lived to be 82 yrs old. Mother History Unknown: Yes Family Medical History: Hypertension, Myocardial Infarction ([place]) Additional Family Medical History / Comment(s): Mother of a [place] at the age of 55yrs. Brother(s) Family Medical History: Cancer, COPD Additional Family Medical History / Comment(s): Leukemia Course Vital Signs 09/01/21 23:05 Temperature 98.1 F Pulse Rate 108 H Respiratory 17 Rate Blood Pressure 141/87 O2 Sat by Pulse 98 Oximetry - Reevaluation(s) Reevaluation #1: 09/01/21 23:26 Medical records reviewed Reevaluation #2: 09/02/21 00:31 Patient symptoms are improved Medical Decision Making - Medical Decision Making 65 male department for evaluation of headache acute on chronic migraine headache symptoms improving he can be discharged home Disposition Clinical Impression: Headache, Migraine headache Disposition: HOME SELF-CARE Condition: Good Instructions (If sedation given, give patient instructions): Acute Headache (ED) Is patient prescribed a controlled substance at d/c from ED?: No Referrals: None,Stated [Primary Care Provider] - 1-2 days
[2021-09-02] MEDS: diphenhydrAMINE 50 MG CAP PO STA (00:25)
[2021-09-02 01:11] VITALS: BP 155/87; PULSE 89; RESP 18; TEMP 98
== END 2021-09-02 01:10 | disposition home or self-care (01) ==
LOC: EC 22:47
DX: G43.909 Migraine, unspecified, not intractable, without status migrainosus (principal); I10 Essential (primary) hypertension; I25.10 Atherosclerotic heart disease of native coronary artery without angina pectoris; E78.5 Hyperlipidemia, unspecified; J44.9 Chronic obstructive pulmonary disease, unspecified; K21.9 Gastro-esophageal reflux disease without esophagitis; M19.90 Unspecified osteoarthritis, unspecified site; Z87.891 Personal history of nicotine dependence; Z79.899 Other long term (current) drug therapy; Z88.6 Allergy status to analgesic agent; Z95.5 Presence of coronary angioplasty implant and graft; Z90.49 Acquired absence of other specified parts of digestive tract; Z86.718 Personal history of other venous thrombosis and embolism; Z82.49 Family history of ischemic heart disease and other diseases of the circulatory system
CPT/HCPCS: 99283; 96372; S0183; J1170

== ENCOUNTER 2021-09-03 00:40 | Emergency (ER) | payer MEDICARE, OTHER ==
[2021-09-03 00:45] VITALS: BP 161/99; PULSE 110; RESP 22; TEMP 97.9
[2021-09-03] MEDS ORDERED: METOCLOPRAMIDE 10 MG TAB PO STA (01:27)
[2021-09-03] MEDS ORDERED: HYDROmorphone 1 MG/ML 1 ML SYRINGE IM STA (01:27)
[2021-09-03] MEDS ORDERED: diphenhydrAMINE 50 MG CAP PO STA (01:28)
--- NOTE | 2021-09-03 01:49 | ED ---
Headache HPI - General Chief Complaint: Headache Stated Complaint: Migraine Time Seen by Provider: 09/03/21 01:18 Source: patient, RN notes reviewed, old records reviewed Mode of arrival: ambulatory Limitations: no limitations - History of Present Illness Initial Comments: Patient is a 65-year-old male presenting to emergency Department with complaints of a headache going on for the past 1-2 days. He states he was here yesterday for similar complaint. He did feel improvement and over the past few hours his headache has returned. He does have a history of migraines and states this feels similar. He does have history of chronic pain, takes Percocets and morphine at home. He states he has been currently staying in the hospital with his 's is not been home and one to 2 days, and he has not been taking his medications. Denies any blurry vision, no dizziness. No fevers or chills, no neck pain. He has no further complaints. - Related Data Home Medications Medication Instructions Recorded Confirmed Morphine Sulfate ER [Ms Contin] 30 mg PO Q8H 10/10/17 08/28/21 tiZANidine [Zanaflex] 4 mg PO TID 02/26/18 08/28/21 oxyCODONE-APAP 10-325MG [Percocet 1 tab PO Q8H 01/02/20 08/28/21 10-325 mg] Prasugrel [Effient] 10 mg PO DAILY 08/06/20 08/28/21 Acetaminophen Tab [Tylenol] 650 mg PO Q4H PRN 07/13/21 08/28/21 Nitroglycerin Sl Tabs [Nitrostat] 0.4 mg SL Q5M PRN 07/13/21 08/28/21 Previous Rx's Medication Instructions Recorded Ezetimibe [Zetia] 10 mg PO DAILY #30 tab 05/24/19 Metoprolol Tartrate [Lopressor] 50 mg PO BID #60 tab 05/17/21 Atorvastatin [Lipitor] 80 mg PO HS 30 Days #30 tab 06/13/21 hydrALAZINE HCL [Apresoline] 50 mg PO TID 30 Days #90 tab 06/13/21 Allergies Allergy/AdvReac Type Severity Reaction Status Date / Time ibuprofen [From Motrin] Allergy Rash/Hives Verified 09/03/21 00:44 ketorolac tromethamine Allergy Rash/Hives Verified 09/03/21 00:44 [From Toradol] Review of Systems ROS Statement: Those systems with pertinent positive or pertinent negative responses have been documented in the HPI. ROS Other: All systems not noted in ROS Statement are negative. Past Medical History Past Medical History: Coronary Artery Disease (CAD), Chest Pain / Angina, COPD, Deep Vein Thrombosis (DVT), GERD/Reflux, Hyperlipidemia, Hypertension, Osteoarthritis (OA), Thyroid Disorder Additional Past Medical History / Comment(s): Occasional palpitations, gastritis, small hiatal hernia, diverticular dx, pt states years ago he had PUD, chronic low back pain, chronic pain syndrome, migraines, DVT L arm, numbness/tingling bilateral lower legs, bilateral past R hand fracture, arthritis multiple joints, hyperthyroid, sinus problems. History of Any Multi-Drug Resistant Organisms: None Reported Past Surgical History: Back Surgery, Cholecystectomy, Heart Catheterization With Stent, Orthopedic Surgery Additional Past Surgical History / Comment(s): EGDs/colonoscopies, multiple low back surgeries, bilateral arm and bilateral thigh surgeries for brown recluse spider bites with infection, morphine pain pump insertion and removal due to infection, PCI with stents, L rotator cuff repair, L knee arthroscopy, cervical fusion/cage, R cataract removal. 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 He lived to be 82 yrs old. Mother History Unknown: Yes Family Medical History: Hypertension, Myocardial Infarction ([place]) Additional Family Medical History / Comment(s): Mother of a [place] at the age of 55yrs. Brother(s) Family Medical History: Cancer, COPD Additional Family Medical History / Comment(s): Leukemia General Exam - General Exam Comments Initial Comments: GENERAL: Patient is well-developed and well-nourished. Patient is nontoxic and in no acute distress. HEAD: Atraumatic, normocephalic. EYES: Pupils equal round and reactive to light, extraocular movements intact, sclera anicteric, conjunctiva are normal. Eyelids were unremarkable. ENT: Nares patent, oropharynx clear without exudates. Moist mucous membranes. NECK: Normal range of motion, supple without lymphadenopathy or JVD. LUNGS: Unlabored respirations. Breath sounds clear to auscultation bilaterally and equal. No wheezes rales or rhonchi. HEART: Regular rate and rhythm without murmurs, rubs or gallops. ABDOMEN: Soft, nontender, normoactive bowel sounds. No guarding, no rebound. No masses appreciated. : Deferred MUSCULOSKELETAL: Normal extremities with adequate strength and normal range of motion, no pitting or edema. No clubbing or cyanosis. NEUROLOGICAL: Patient is alert and oriented x 3. Motor and sensory are also intact. Cranial nerves II through XII grossly intact. Symmetrical smile. Normal speech, normal gait. SKIN: Warm, Dry, normal turgor, no rashes or lesions noted. Limitations: no limitations Course Vital Signs 09/03/21 00:41 Temperature 97.9 F Pulse Rate 110 H Respiratory 22 Rate Blood Pressure 161/99 O2 Sat by Pulse 100 Oximetry Medical Decision Making - Medical Decision Making Patient is 65-year-old male here with history of migraines presenting with a headache over the past 1-2 days. He was here for yesterday for similar complaint. Vitals are stable, exam reveals no acute neuro deficits. Patient was given pain medicine, Reglan and Benadryl. Reports improvement in symptoms. He is stable for discharge. He was a follow-up with his primary care physician for further management of his migraines. Disposition Clinical Impression: Headache Disposition: HOME SELF-CARE Condition: Stable Instructions (If sedation given, give patient instructions): Acute Headache (ED) Additional Instructions: Please return to the Emergency Department if symptoms worsen or any other concerns. Follow-up with your primary care. Is patient prescribed a controlled substance at d/c from ED?: No Referrals: None,Stated [Primary Care Provider] - 1-2 days Time of Disposition: 01:47
== END 2021-09-03 02:16 | disposition home or self-care (01) ==
LOC: EC 00:40
DX: R51.9 Headache, unspecified (principal); I10 Essential (primary) hypertension; E78.5 Hyperlipidemia, unspecified; K21.9 Gastro-esophageal reflux disease without esophagitis; I25.10 Atherosclerotic heart disease of native coronary artery without angina pectoris; M19.90 Unspecified osteoarthritis, unspecified site; Z87.891 Personal history of nicotine dependence; Z79.899 Other long term (current) drug therapy
CPT/HCPCS: 96372; 99283; J1170

== ENCOUNTER 2021-09-11 15:12 | Observation (INO) | payer MEDICARE, OTHER ==
--- NOTE | 2021-09-11 16:02 | XR ---
EXAMINATION TYPE: XR chest 2V DATE OF EXAM: 09/11/2021 COMPARISON: Chest x-ray 08/28/2021, CT chest 08/21/2019 HISTORY: Chest pain TECHNIQUE: Frontal and lateral views of the chest are obtained. FINDINGS: Exam is expiratory. There is no focal air space opacity, pleural effusion, or pneumothorax seen. The cardiac silhouette size is within normal limits. The aorta is dense. There are coronary ar ana maria calcifications and possibly stent. The osseous structures are intact. Postop changes are noted as on previous exam at the level of the lower cervical spine. IMPRESSION: No acute cardiopulmonary process.
[2021-09-11] MEDS ORDERED: ASPIRIN 81 MG PO STA (16:56)
[2021-09-11] MEDS ORDERED: NITROGLYCERIN OINT 1 INCH/GM PACKET TOPICAL STA (16:57)
--- NOTE | 2021-09-11 17:09 | ED ---
General Adult HPI - General Chief complaint: Chest Pain Stated complaint: Chest Pain,Swelling of bilateral legs Time Seen by Provider: 09/11/21 15:20 Source: patient, family, RN notes reviewed, old records reviewed Mode of arrival: ambulatory - History of Present Illness Initial comments: This a 65-year-old male with a past medical history significant for coronary artery disease and multiple stents. Patient comes in today because he states he started having chest pain at about noon today and it radiates down his left arm. Patient states she has mild shortness of breath. Patient denies any recent fever chills or cough per patient states he did not get COVID acting. Patient denied any diaphoretic episodes. Patient denies any abdominal pain. Patient's nausea vomiting diarrhea. Patient states he noticed swelling in his legs increasing over the last few days. Patient states he does not have history of congestive heart attack. - Related Data Home Medications Medication Instructions Recorded Confirmed Morphine Sulfate ER [Ms Contin] 30 mg PO Q8H 10/10/17 09/11/21 tiZANidine [Zanaflex] 4 mg PO TID 02/26/18 09/11/21 oxyCODONE-APAP 10-325MG [Percocet 1 tab PO Q8H 01/02/20 09/11/21 10-325 mg] Prasugrel [Effient] 10 mg PO DAILY 08/06/20 09/11/21 Acetaminophen Tab [Tylenol] 650 mg PO Q4H PRN 07/13/21 09/11/21 Nitroglycerin Sl Tabs [Nitrostat] 0.4 mg SL Q5M PRN 07/13/21 09/11/21 Pregabalin [Lyrica] 100 mg PO BID 09/11/21 09/11/21 Previous Rx's Medication Instructions Recorded Ezetimibe [Zetia] 10 mg PO DAILY #30 tab 05/24/19 Metoprolol Tartrate [Lopressor] 50 mg PO BID #60 tab 05/17/21 Atorvastatin [Lipitor] 80 mg PO HS 30 Days #30 tab 06/13/21 hydrALAZINE HCL [Apresoline] 50 mg PO TID 30 Days #90 tab 06/13/21 Allergies Allergy/AdvReac Type Severity Reaction Status Date / Time ibuprofen [From Motrin] Allergy Rash/Hives Verified 09/11/21 18:10 ketorolac tromethamine Allergy Rash/Hives Verified 09/11/21 18:10 [From Toradol] Review of Systems ROS Statement: Those systems with pertinent positive or pertinent negative responses have been documented in the HPI. ROS Other: All systems not noted in ROS Statement are negative. Past Medical History Past Medical History: Coronary Artery Disease (CAD), Chest Pain / Angina, COPD, Deep Vein Thrombosis (DVT), GERD/Reflux, Hyperlipidemia, Hypertension, Osteoarthritis (OA), Thyroid Disorder Additional Past Medical History / Comment(s): Occasional palpitations, gastritis, small hiatal hernia, diverticular dx, pt states years ago he had PUD, chronic low back pain, chronic pain syndrome, migraines, DVT L arm, numbness/tingling bilateral lower legs, bilateral past R hand fracture, arthritis multiple joints, hyperthyroid, sinus problems. History of Any Multi-Drug Resistant Organisms: None Reported Past Surgical History: Back Surgery, Cholecystectomy, Heart Catheterization With Stent, Orthopedic Surgery Additional Past Surgical History / Comment(s): EGDs/colonoscopies, multiple low back surgeries, bilateral arm and bilateral thigh surgeries for brown recluse spider bites with infection, morphine pain pump insertion and removal due to infection, PCI with stents, L rotator cuff repair, L knee arthroscopy, cervical fusion/cage, R cataract removal. 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 He lived to be 82 yrs old. Mother History Unknown: Yes Family Medical History: Hypertension, Myocardial Infarction ([place]) Additional Family Medical History / Comment(s): Mother of a [place] at the age of 55yrs. Brother(s) Family Medical History: Cancer, COPD Additional Family Medical History / Comment(s): Leukemia General Exam - General Exam Comments Initial Comments: GENERAL: Patient is well-developed and well-nourished. Patient is nontoxic and well- hydrated and is in no acute distress. ENT: Neck is soft and supple. No significant lymphadenopathy is noted. Oropharynx is clear. Moist mucous membranes. Neck has full range of motion without eliciting any pain. EYES: The sclera were anicteric and conjunctiva were pink and moist. Extraocular movements were intact and pupils were equal round and reactive to light. Eyelids were unremarkable. PULMONARY: Unlabored respirations. Good breath sounds bilaterally. No audible rales rhonchi or wheezing was noted. CARDIOVASCULAR: There is a regular rate and rhythm without any murmurs gallops or rubs. ABDOMEN: Soft and nontender with normal bowel sounds. SKIN: Skin is clear with no lesions or rashes and otherwise unremarkable. NEUROLOGIC: Patient is alert and oriented x3. Cranial nerves II through XII are grossly intact. Motor and sensory are also intact. Normal speech, volume and content. Symmetrical smile. MUSCULOSKELETAL: Normal extremities with adequate strength and full range of motion. 2+ edema bilaterally LYMPHATICS: No significant lymphadenopathy is noted PSYCHIATRIC: Normal psychiatric evaluation. Course Vital Signs 09/11/21 09/11/21 15:17 19:41 Temperature 97.6 F Pulse Rate 100 85 Respiratory 19 16 Rate Blood Pressure 158/85 134/90 O2 Sat by Pulse 97 97 Oximetry Medical Decision Making - Medical Decision Making EKG shows normal sinus rhythm at 87 bpm OR interval 166 QRS is 92 QT interval 370 QTC is 445 per patient's EKG shows no ST segment elevation or depression. Chest x-ray shows no acute abnormality. I spoke with Dr. Coe agreed to admit the patient admitted the patient I wrote admitting orders. - Lab Data Result diagrams: 09/11/21 17:27 09/11/21 17:27 Lab Results 09/11/21 09/11/21 09/11/21 Range/Units 17:27 17:27 17:27 WBC 2.9 L (3.8-10.6) k/uL RBC 4.42 (4.30-5.90) m/uL Hgb 12.7 L (13.0-17.5) gm/dL Hct 41.8 (39.0-53.0) % MCV 94.5 (80.0-100.0) fL MCH 28.8 (25.0-35.0) pg MCHC 30.4 L (31.0-37.0) g/dL RDW 14.0 (11.5-15.5) % Plt Count 308 (150-450) k/uL MPV 6.5 Neutrophils % 46 % Lymphocytes % 36 % Monocytes % 10 % Eosinophils % 3 % Basophils % 2 % Neutrophils # 1.3 (1.3-7.7) k/uL Lymphocytes # 1.0 (1.0-4.8) k/uL Monocytes # 0.3 (0-1.0) k/uL Eosinophils # 0.1 (0-0.7) k/uL Basophils # 0.1 (0-0.2) k/uL PT 11.1 (9.0-12.0) sec INR 1.1 (<1.2) APTT 20.8 L (22.0-30.0) sec Sodium 135 L (137-145) mmol/L Potassium 5.2 H (3.5-5.1) mmol/L Chloride 101 (98-107) mmol/L Carbon Dioxide 24 (22-30) mmol/L Anion Gap 10 mmol/L BUN 6 L (9-20) mg/dL Creatinine 0.59 L (0.66-1.25) mg/dL Est GFR (CKD-EPI)AfAm >90 (>60 ml/min/1.73 sqM) Est GFR (CKD-EPI)NonAf >90 (>60 ml/min/1.73 sqM) Glucose 109 H (74-99) mg/dL Calcium 9.5 (8.4-10.2) mg/dL Magnesium 2.0 (1.6-2.3) mg/dL Total Bilirubin 0.5 (0.2-1.3) mg/dL AST 31 (17-59) U/L ALT 11 (4-49) U/L Alkaline Phosphatase 66 (38-126) U/L Troponin I (0.000-0.034) ng/mL Total Protein 8.3 H (6.3-8.2) g/dL Albumin 5.0 (3.5-5.0) g/dL 09/11/21 Range/Units 17:27 WBC (3.8-10.6) k/uL RBC (4.30-5.90) m/uL Hgb (13.0-17.5) gm/dL Hct (39.0-53.0) % MCV (80.0-100.0) fL MCH (25.0-35.0) pg MCHC (31.0-37.0) g/dL RDW (11.5-15.5) % Plt Count (150-450) k/uL MPV Neutrophils % % Lymphocytes % % Monocytes % % Eosinophils % % Basophils % % Neutrophils # (1.3-7.7) k/uL Lymphocytes # (1.0-4.8) k/uL Monocytes # (0-1.0) k/uL Eosinophils # (0-0.7) k/uL Basophils # (0-0.2) k/uL PT (9.0-12.0) sec INR (<1.2) APTT (22.0-30.0) sec Sodium (137-145) mmol/L Potassium (3.5-5.1) mmol/L Chloride (98-107) mmol/L Carbon Dioxide (22-30) mmol/L Anion Gap mmol/L BUN (9-20) mg/dL Creatinine (0.66-1.25) mg/dL Est GFR (CKD-EPI)AfAm (>60 ml/min/1.73 sqM) Est GFR (CKD-EPI)NonAf (>60 ml/min/1.73 sqM) Glucose (74-99) mg/dL Calcium (8.4-10.2) mg/dL Magnesium (1.6-2.3) mg/dL Total Bilirubin (0.2-1.3) mg/dL AST (17-59) U/L ALT (4-49) U/L Alkaline Phosphatase (38-126) U/L Troponin I <0.012 (0.000-0.034) ng/mL Total Protein (6.3-8.2) g/dL Albumin (3.5-5.0) g/dL Disposition Clinical Impression: Chest pain Disposition: ADMITTED IP TO THIS HOSP Referrals: None,Stated [Primary Care Provider] - 1-2 days Time of Disposition: 19:46
[2021-09-11 17:44] LABS: Basophils # (A) 0.1 k/uL (0-0.2); Basophils % (A) 2 %; Eosinophils # (A) 0.1 k/uL (0-0.7); Eosinophils % (A) 3 %; HCT 41.8 % (39.0-53.0); HGB 12.7 gm/dL (13.0-17.5); Lymphocytes % (A) 36 %; MCH 28.8 pg (25.0-35.0); MCHC 30.4 g/dL (31.0-37.0); MCV 94.5 fL (80.0-100.0); Mean Platelet Volume 6.5; Monocytes # (A) 0.3 k/uL (0-1.0); Monocytes % (A) 10 %; Neutrophils # (A) 1.3 k/uL (1.3-7.7); Neutrophils % (A) 46 %; Platelet Count 308 k/uL (150-450); RBC 4.42 m/uL (4.30-5.90); WBC 2.9 k/uL (3.8-10.6)
[2021-09-11 17:56] LABS: ALT 11 U/L (4-49); AST 31 U/L (17-59); African American GFR (CKD) >90 (>60 ml/min/1.73 sqM); Alkaline Phosphatase 66 U/L (38-126); Anion Gap 10 mmol/L; Blood Urea Nitrogen 6 mg/dL (9-20); Calcium 9.5 mg/dL (8.4-10.2); Carbon Dioxide 24 mmol/L (22-30); Chloride 101 mmol/L (98-107); Glucose 109 mg/dL (74-99); Non-African American GFR(CKD) >90 (>60 ml/min/1.73 sqM); Sodium 135 mmol/L (137-145); Total Bilirubin 0.5 mg/dL (0.2-1.3); Total Protein 8.3 g/dL (6.3-8.2)
[2021-09-11 18:01] LABS: Potassium 5.2 mmol/L (3.5-5.1)
[2021-09-11 18:26] LABS: INR 1.1 (<1.2); Partial Thromboplastin Time 20.8 sec (22.0-30.0); Prothrombin Time 11.1 sec (9.0-12.0)
[2021-09-11] MEDS ORDERED: NITROGLYCERIN SL TABS 0.4 MG TAB SUBLINGUAL PRN ×2 (19:46→20:42)
[2021-09-11] MEDS ORDERED: MORPHINE SULFATE 2 MG/ML SYRINGE IVP STA (20:27)
[2021-09-11] MEDS ORDERED: ACETAMINOPHEN TAB 325 MG TAB PO PRN (20:42)
[2021-09-11] MEDS ORDERED: ATORVASTATIN 80 MG TAB PO SCH (21:00)
[2021-09-11] MEDS: PREGABALIN 100 MG CAP PO SCH (22:13)
[2021-09-11] MEDS: METOPROLOL TARTRATE 50 MG TAB PO SCH (22:13)
[2021-09-11] MEDS: tiZANidine 4 MG TAB PO SCH (22:13)
[2021-09-11] MEDS: MORPHINE SULFATE ER 30 MG TABLET PO SCH (22:14)
[2021-09-11] MEDS: hydrALAZINE HCL 50 MG TAB PO SCH (22:15)
[2021-09-11] MEDS: NITROGLYCERIN OINT 1 INCH/GM PACKET TOPICAL SCH (23:31)
[2021-09-12] MEDS: oxyCODONE-APAP 10-325MG 1 EACH TAB PO SCH ×2 (02:00→09:44)
[2021-09-12] MEDS: MORPHINE SULFATE ER 30 MG TABLET PO SCH ×2 (05:27→14:37)
[2021-09-12] MEDS: NITROGLYCERIN OINT 1 INCH/GM PACKET TOPICAL SCH ×2 (05:28→11:06)
[2021-09-12 08:14] VITALS: RESP 17
[2021-09-12] MEDS ORDERED: PRASUGREL 10 MG TAB PO SCH (09:00)
[2021-09-12] MEDS ORDERED: ASPIRIN 325 MG TAB PO SCH (09:00)
[2021-09-12] MEDS ORDERED: EZETIMIBE 10 MG TAB PO SCH (09:00)
--- NOTE | 2021-09-12 09:37 | P.CRDCN ---
History of Present Illness History of present illness: HISTORY OF PRESENTING ILLNESS This is a pleasant 65-year-old male past medical history significant for coronary artery disease s/p PCI of the LAD 2017, DVT, COPD, hypertension, dyslipidemia and chronic pain, history of back surgery. He follows in the office with Dr. Go. We have been asked to see in consultation for chest pain. Patient presents to emergency department with left-sided chest pain. He describes it as a pressure/sharp. It radiates to his left arm, left neck and jaw. He states he's been having this pain for 34 days. He also has associated numbness and tingling to his left arm and left hand fingers. His pain is nonexertional. He states he even has the pain when he is resting. He also has associated shortness of breath. He denies any associated palpitations, nausea, diaphoresis, lightheadedness, dizziness, syncope or presyncope. He denies any symptoms of orthopnea or PND. Recently admitted early this month, having pain in the left precordial region that radiated to the left shoulder and neck and shortness of breath. His EKG had no evidence of ischemia, he had 4 negative troponins. He recently saw Dr. Go in the office in June, he was having recurrent accelerated hypertension and he recommended to rule out renal artery stenosis. DIAGNOSTICS: -In April 2021 he underwent a Lexiscan stress test that was negative for reversible cardiac ischemia. -EKG on arrival reveals sinus rhythm heart rate 87, with no acute ST or T wave abnormalities noted. -June 2021- echocardiogram revealing preserved LV systolic function with ejection fraction 55-60%. Chest x-ray reveals no acute cardiopulmonary process noted. Laboratory data reviewed, troponin negative 3, sodium 135, potassium 5.2, BUN 6, serum creatinine 0.5, COVID-19 PCR negative, WBC 2.9, hemoglobin 12.7, platelets 308 Current daily cardiac medications include Effient 10 mg daily, Lopressor 50 mg twice a day, hydralazine 50 mg 3 times a day, Zetia 10 mg daily and atorvastatin 80 mg daily. Most recent cardiac catheterization performed in 2018 revealed patent stents in the previously stented LAD, left main free of significant disease, RCA free of significant disease and circumflex free of significant disease. REVIEW OF SYSTEMS At the time of my exam: CONSTITUTIONAL: Denies fever or chills. CARDIOVASCULAR: Complains of chest pain, shortness of breath. Denies orthopnea, PND or palpitations. RESPIRATORY: Denies cough. GASTROINTESTINAL: Denies abdominal pain, diarrhea, constipation, nausea or vomiting. MUSCULOSKELETAL: Denies myalgias. NEUROLOGIC: Numbness and tingling to left arm and hand Denies headache or weakness. ENDOCRINE: Denies fatigue, weight change, polydipsia or polyurina. GENITOURINARY: Denies burning, hematuria or urgency with micturation. HEMATOLOGIC: Denies history of anemia or bleeding. PHYSICAL EXAMINATION Blood pressure 107/75 heart rate 72, afebrile, maintaining saturations on room air. CONSTITUTIONAL: No apparent distress. HEENT: Head is normocephalic. Pupils are equal, round. Sclerae anicteric. Mucous membranes of the mouth are moist. No JVD. No carotid bruit. CHEST EXAMINATION: Lungs are clear to auscultation. No chest wall tenderness is noted on palpation or with deep breathing. HEART EXAMINATION: Regular rate and rhythm. S1, S2 heard. No murmurs, gallops or rub. ABDOMEN: Soft, nontender. EXTREMITIES: 2+ peripheral pulses, no lower extremity edema and no calf tenderness. NEUROLOGIC EXAMINATION: Patient is awake, alert and oriented x3. ASSESSMENT Chest pain, atypical, acute coronary syndrome has ruled out. Coronary artery disease status post PCI of the LAD 2017 COPD Hypertension Dyslipidemia Chronic pain PLAN An acute coronary event has been ruled out. Recent stress test reviewed. We will obtain Ultrasound of renal arteries to rule out renal artery stenosis No further medications at this time. No repeat echocardiogram or stress test at this time. Follow up with Dr. Go upon discharge. Thank you kindly for this consultation. Nurse Practitioner note has been reviewed, I agree with a documented findings and plan of care. Patient was seen and examined. Past Medical History Past Medical History: Coronary Artery Disease (CAD), Chest Pain / Angina, COPD, Deep Vein Thrombosis (DVT), GERD/Reflux, Hyperlipidemia, Hypertension, Osteoarthritis (OA), Thyroid Disorder Additional Past Medical History / Comment(s): Occasional palpitations, g astritis, small hiatal hernia, diverticular dx, pt states years ago he had PUD, chronic low back pain, chronic pain syndrome, migraines, DVT L arm, numbness/tingling bilateral lower legs, bilateral past R hand fracture, arthritis multiple joints, hyperthyroid, sinus problems. History of Any Multi-Drug Resistant Organisms: None Reported Past Surgical History: Back Surgery, Cholecystectomy, Heart Catheterization With Stent, Orthopedic Surgery Additional Past Surgical History / Comment(s): EGDs/colonoscopies, multiple low back surgeries, bilateral arm and bilateral thigh surgeries for brown recluse spider bites with infection, morphine pain pump insertion and removal due to infection, PCI with stents, L rotator cuff repair, L knee arthroscopy, cervical fusion/cage, R cataract removal. 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 states he was "down for 8 minutes" Date of Last Stent Placement:: 10/12/17 Past Psychological History: No Psychological Hx Reported Additional Psychological History / Comment(s): Pt resides with his spouse. He uses a walker and cane to ambulate. He does not drive, neither does his spouse, they us the bus. Smoking Status: Former smoker Past Alcohol Use History: None Reported Additional Past Alcohol Use History / Comment(s): Pt states he quit smoking when he 19 and smoked 1ppd. Past Drug Use History: None Reported - Past Family History Father Family Medical History: No Reported History Additional Family Medical History / Comment(s): Father had back problems. He lived to be 82 yrs old. Mother History Unknown: Yes Family Medical History: Hypertension, Myocardial Infarction ([place]) Additional Family Medical History / Comment(s): Mother of a [place] at the age of 55yrs. Brother(s) Family Medical History: Cancer, COPD Additional Family Medical History / Comment(s): Leukemia Medications and Allergies Home Medications Medication Instructions Recorded Confirmed Type Morphine Sulfate ER [Ms Contin] 30 mg PO Q8H 10/10/17 09/11/21 History tiZANidine [Zanaflex] 4 mg PO TID 02/26/18 09/11/21 History Ezetimibe [Zetia] 10 mg PO DAILY #30 tab 05/24/19 09/11/21 Rx oxyCODONE-APAP 10-325MG [Percocet 1 tab PO Q8H 01/02/20 09/11/21 History 10-325 mg] Prasugrel [Effient] 10 mg PO DAILY 08/06/20 09/11/21 History Metoprolol Tartrate [Lopressor] 50 mg PO BID #60 tab 05/17/21 09/11/21 Rx Atorvastatin [Lipitor] 80 mg PO HS 30 Days #30 tab 06/13/21 09/11/21 Rx hydrALAZINE HCL [Apresoline] 50 mg PO TID 30 Days #90 tab 06/13/21 09/11/21 Rx Acetaminophen Tab [Tylenol] 650 mg PO Q4H PRN 07/13/21 09/11/21 History Nitroglycerin Sl Tabs [Nitrostat] 0.4 mg SL Q5M PRN 07/13/21 09/11/21 History Pregabalin [Lyrica] 100 mg PO BID 09/11/21 09/11/21 History Allergies Allergy/AdvReac Type Severity Reaction Status Date / Time ibuprofen [From Motrin] Allergy Rash/Hives Verified 09/11/21 18:10 ketorolac tromethamine Allergy Rash/Hives Verified 09/11/21 18:10 [From Toradol] Physical Exam Vitals: Vital Signs Temp Pulse Pulse Resp BP BP Pulse Ox 09/12/21 03:19 97.9 F 70 16 110/76 98 09/11/21 23:38 97.4 F L 81 18 166/99 98 09/11/21 22:30 81 17 157/88 98 09/11/21 19:41 85 16 134/90 97 09/11/21 15:17 97.6 F 100 19 158/85 97 Intake and Output 09/11/21 09/11/21 09/12/21 14:59 22:59 06:59 Other: Voiding Method Toilet # Voids 1 2 Weight 79.379 kg Results 09/11/21 17:27 09/11/21 17:27 Cardiac Enzymes 09/11/21 09/11/21 09/11/21 Range/Units 17:27 17:27 20:36 AST 31 (17-59) U/L Troponin I <0.012 <0.012 (0.000-0.034) ng/mL 09/11/21 Range/Units 23:39 AST (17-59) U/L Troponin I <0.012 (0.000-0.034) ng/mL Coagulation 09/11/21 Range/Units 17:27 PT 11.1 (9.0-12.0) sec APTT 20.8 L (22.0-30.0) sec CBC 09/11/21 Range/Units 17:27 WBC 2.9 L (3.8-10.6) k/uL RBC 4.42 (4.30-5.90) m/uL Hgb 12.7 L (13.0-17.5) gm/dL Hct 41.8 (39.0-53.0) % Plt Count 308 (150-450) k/uL Comprehensive Metabolic Panel 09/11/21 Range/Units 17:27 Sodium 135 L (137-145) mmol/L Potassium 5.2 H (3.5-5.1) mmol/L Chloride 101 (98-107) mmol/L Carbon Dioxide 24 (22-30) mmol/L BUN 6 L (9-20) mg/dL Creatinine 0.59 L (0.66-1.25) mg/dL Glucose 109 H (74-99) mg/dL Calcium 9.5 (8.4-10.2) mg/dL AST 31 (17-59) U/L ALT 11 (4-49) U/L Alkaline Phosphatase 66 (38-126) U/L Total Protein 8.3 H (6.3-8.2) g/dL Albumin 5.0 (3.5-5.0) g/dL Current Medications Generic Name Dose Route Start Last Admin Trade Name Freq PRN Reason Stop Dose Admin Acetaminophen 650 mg 09/11/21 20:42 09/11/21 23:29 Acetaminophen Tab 325 Mg Tab PO 650 mg Q4H PRN Administration Fever and/or Mild Pain Aspirin 325 mg 09/12/21 09:00 Aspirin 325 Mg Tab PO DAILY [facility] Atorvastatin Calcium 80 mg 09/11/21 21:00 09/11/21 22:15 Atorvastatin 80 Mg Tab PO 80 mg HS YESICA Administration Ezetimibe 10 mg 09/12/21 09:00 Ezetimibe 10 Mg Tab PO DAILY YESICA Hydralazine HCl 50 mg 09/11/21 22:00 09/11/21 22:15 Hydralazine Hcl 50 Mg Tab PO 50 mg TID YESICA Administration Metoprolol Tartrate 50 mg 09/11/21 21:00 09/11/21 22:13 Metoprolol Tartrate 50 Mg Tab PO 50 mg BID YESICA Administration Morphine Sulfate 30 mg 09/11/21 22:00 09/12/21 05:27 Morphine Sulfate Er 30 Mg Tablet PO 30 mg Q8H YESICA Administration Protocol Nitroglycerin 1 inch 09/12/21 00:00 09/12/21 05:28 Nitroglycerin Oint 1 Inch/Gm Packet TOPICAL Not Given Q6HR [facility] Nitroglycerin 0.4 mg 09/11/21 20:42 Nitroglycerin Sl Tabs 0.4 Mg Tab SUBLINGUAL Q5M PRN Chest Pain Oxycodone/Acetaminophen 1 each 09/12/21 02:00 09/12/21 02:00 Oxycodone-Apap 10-325mg 1 Each Tab PO 1 each Q8H YESICA Administration Prasugrel 10 mg 09/12/21 09:00 Prasugrel 10 Mg Tab PO DAILY [facility] Pregabalin 100 mg 09/11/21 21:00 09/11/21 22:13 Pregabalin 100 Mg Cap PO 100 mg BID YESICA Administration Tizanidine HCl 4 mg 09/11/21 22:00 09/11/21 22:13 Tizanidine 4 Mg Tab PO 4 mg TID YESICA Administration Intake and Output 09/11/21 09/11/21 09/12/21 14:59 22:59 06:59 Other: Voiding Method Toilet # Voids 1 2 Weight 79.379 kg Patient Weight 09/12/21 06:59 Weight 79.379 kg 09/11/21 17:27 09/11/21 17:27
[2021-09-12] MEDS: hydrALAZINE HCL 50 MG TAB PO SCH (09:43)
[2021-09-12] MEDS: PREGABALIN 100 MG CAP PO SCH (09:44)
[2021-09-12] MEDS: tiZANidine 4 MG TAB PO SCH (09:44)
[2021-09-12] MEDS: METOPROLOL TARTRATE 50 MG TAB PO SCH (09:44)
--- NOTE | 2021-09-12 10:46 | US ---
EXAMINATION TYPE: US renal artery duplex complet DATE OF EXAM: 09/12/2021 COMPARISON: CT thoracic/abdominal/pelvis/aorta dated 05/15/2021 CLINICAL HISTORY: Hypertension, rule out renal artery stenosis. Inpatient for Chest pain; blood press ure is controlled today; decreased renal function MEASUREMENTS: RENAL SIZE: Rt Kidney: 10.2 x 5.4 x 4.2cm Lt Kidney: 10.0 x 5.7 x 5.0cm RESISTANCE INDEX Right: 0.6 Left: 0.6 RA/AO RATIO (< 3.5 ) Right: 1.7 Left: 1.5 RA VELOCITY ( < 180 cm/s) Right: 114.9cm/s mid Left: 103.0cm/s prox ABdominal Aorta: prominent aorta noted proximally = 2.7cm A/P x 2.6cm W. Kidneys: no hydronephrosis or masses seen. No evidence of renal artery stenosis by US. Grayscale, color Doppler, spectral Doppler imaging performed of the aorta and renal arteries. Wavefor m analysis shows brisk upstroke, low resistance diastolic flow within the renal, segmental and arcuat e arteries IMPRESSION: No evident renal artery stenosis.
[2021-09-12 12:32] LABS: African American GFR (CKD) >90 (>60 ml/min/1.73 sqM); Anion Gap 7 mmol/L; Blood Urea Nitrogen 7 mg/dL (9-20); Calcium 8.7 mg/dL (8.4-10.2); Carbon Dioxide 24 mmol/L (22-30); Chloride 102 mmol/L (98-107); Glucose 134 mg/dL (74-99); Non-African American GFR(CKD) >90 (>60 ml/min/1.73 sqM); Potassium 4.3 mmol/L (3.5-5.1); Sodium 133 mmol/L (137-145)
[2021-09-12 15:51] LABS: Chol/HDL Ratio 2.94 Ratio; HDL Cholesterol 65.9 mg/dL (40.00-60.00); LDL Cholesterol,Calculated 96.3 mg/dL (0.0-131.0); VLDL Calculation 31.8 mg/dL (5.00-40.00)
[2021-09-12 16:33] VITALS: BP 115/79; PULSE 71; TEMP 98.2
--- NOTE | 2021-09-12 19:55 | P.HPIM ---
History of Present Illness H&P Date: 09/12/21 Chief Complaint: Chest pain This is a 65-year-old patient who follows with grocery clerk checking Dr. BASILIA Go. He does not have a family doctor. He's had multiple presentations to the hospital the course of the year. Patient does have chronic pain syndrome and does follow with the pain specialist. Had a pain clinic. Patient now presents that yesterday he felt as if something was sitting on his chest. It went down to the left arm. Whole days pain was present off and on for 20 minutes also some perspiration. I decided to come in. Review of systems: GEN.: None EYES: None HEENT: None NECK: None RESPIRATORY: As above CARDIOVASCULAR: As above GASTROINTESTINAL: None GENITOURINARY: None MUSCULOSKELETAL: Chronic pain in multiple joints LYMPHATICS: None HEMATOLOGICAL: None PSYCHIATRY: None NEUROLOGICAL: None Past medical history to include: CAD with stent and being in 2017, COPD, DVT, GERD, hypertension, hyperlipidemia, osteoarthritis, gastritis, diverticulosis, peptic ulcer disease, chronic low back pain, chronic pain syndrome, migraines, DVT of the left arm, numbness and tingling in the arms and legs, sinus trouble, multiple low back surgeries, morphine pain pump inserted and removed due to infection, left rotator cuff repair, cervical fusion cage Social history: . Does use a walker and a cane to get about. Does not smoke. Denies alcohol or recreational drugs. Family history: Reviewed, noncontributory to presentation Physical examination: VITAL SIGNS: 97.6, 100, 19, 150/85, 97% room air GENERAL: Average build, laying in bed, awake, comfortable EYES: Pupils equal. Conjunctiva normal. HEENT: External appearance of nose and ears normal, oral cavity grossly normal. NECK: JVD not raised; masses not palpable. HEART: First and second heart sounds are normal; no edema. LUNGS: Respiratory rate normal; clear to auscultation. ABDOMEN: Soft, nontender, liver spleen not palpable, no masses palpable. PSYCH: Alert and oriented x3; mood and affect normal. NEUROLOGICAL: Cranial nerves grossly intact; no facial asymmetry, power and se nsation grossly intact. LYMPHATICS: No lymph nodes palpable in the axilla and neck INVESTIGATIONS, reviewed in the clinical context: Peak potassium today 4.3 WBC 2.9 hemoglobin 12.7 platelets 308 sodium 135 potassium 5.2 creatinine 0.59 Troponin I 3 negative LDL 96 Coronavirus [PCR]: Not detected EKG tracing personally reviewed by me-normal sinus rhythm. Rate 87 Chest x-ray film personally reviewed by me-no obvious infiltrates. Assessment and plan: -Anterior chest wall pain. The patient with known CAD. Possible unstable angina. Negative troponins. EKG unremarkable. -CAD with history of stent, 2016 Aspirin 81 mg. Beta jerald. Lipitor. -GERD Tums when necessary -Hyperlipidemia Lipitor 80 mg daily at bedtime -Essential hypertension Lopressor 50 mg twice a day hydralazine 50 mg 3 times a day -Chronic pain syndrome patient does follow at the pain clinic with a pain specialist MS Contin 30 mg every 8 medical 100 mg twice a day Percocet 10 every 8 Home medications resumed. Telemetry. Cardiology consulted. Care was discussed with the patient. Past Medical History Past Medical History: Coronary Artery Disease (CAD), Chest Pain / Angina, COPD, Deep Vein Thrombosis (DVT), GERD/Reflux, Hyperlipidemia, Hypertension, Osteoarthritis (OA), Thyroid Disorder Additional Past Medical History / Comment(s): Occasional palpitations, gastritis, small hiatal hernia, diverticular dx, pt states years ago he had PUD, chronic low back pain, chronic pain syndrome, migraines, DVT L arm, numbness/tingling bilateral lower legs, bilateral past R hand fracture, arthritis multiple joints, hyperthyroid, sinus problems. History of Any Multi-Drug Resistant Organisms: None Reported Past Surgical History: Back Surgery, Cholecystectomy, Heart Catheterization With Stent, Orthopedic Surgery Additional Past Surgical History / Comment(s): EGDs/colonoscopies, multiple low back surgeries, bilateral arm and bilateral thigh surgeries for brown recluse s pider bites with infection, morphine pain pump insertion and removal due to infection, PCI with stents, L rotator cuff repair, L knee arthroscopy, cervical fusion/cage, R cataract removal. 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 states he was "down for 8 minutes" Date of Last Stent Placement:: 10/12/17 Past Psychological History: No Psychological Hx Reported Additional Psychological History / Comment(s): Pt resides with his spouse. He uses a walker and cane to ambulate. He does not drive, neither does his spouse, they us the bus. Smoking Status: Former smoker Past Alcohol Use History: None Reported Additional Past Alcohol Use History / Comment(s): Pt states he quit smoking when he 19 and smoked 1ppd. Past Drug Use History: None Reported - Past Family History Father Family Medical History: No Reported History Additional Family Medical History / Comment(s): Father had back problems. He lived to be 82 yrs old. Mother History Unknown: Yes Family Medical History: Hypertension, Myocardial Infarction ([place]) Additional Family Medical History / Comment(s): Mother of a [place] at the age of 55yrs. Brother(s) Family Medical History: Cancer, COPD Additional Family Medical History / Comment(s): Leukemia Medications and Allergies Home Medications Medication Instructions Recorded Confirmed Type Morphine Sulfate ER [Ms Contin] 30 mg PO Q8H 10/10/17 09/11/21 History tiZANidine [Zanaflex] 4 mg PO TID 02/26/18 09/11/21 History Ezetimibe [Zetia] 10 mg PO DAILY #30 tab 05/24/19 09/11/21 Rx oxyCODONE-APAP 10-325MG [Percocet 1 tab PO Q8H 01/02/20 09/11/21 History 10-325 mg] Prasugrel [Effient] 10 mg PO DAILY 08/06/20 09/11/21 History Metoprolol Tartrate [Lopressor] 50 mg PO BID #60 tab 05/17/21 09/11/21 Rx Atorvastatin [Lipitor] 80 mg PO HS 30 Days #30 tab 06/13/21 09/11/21 Rx hydrALAZINE HCL [Apresoline] 50 mg PO TID 30 Days #90 tab 06/13/21 09/11/21 Rx Acetaminophen Tab [Tylenol] 650 mg PO Q4H PRN 07/13/21 09/11/21 History Nitroglycerin Sl Tabs [Nitrostat] 0.4 mg SL Q5M PRN 07/13/21 09/11/21 History Pregabalin [Lyrica] 100 mg PO BID 09/11/21 09/11/21 History Aspirin 81 mg PO DAILY #30 tab 09/12/21 Rx Allergies Allergy/AdvReac Type Severity Reaction Status Date / Time ibuprofen [From Motrin] Allergy Rash/Hives Verified 09/11/21 18:10 ketorolac tromethamine Allergy Rash/Hives Verified 09/11/21 18:10 [From Toradol] Physical Exam Vitals: Vital Signs Temp Pulse Pulse Resp BP BP Pulse Ox 09/12/21 08:00 97.9 F 72 17 107/75 96 09/12/21 03:19 97.9 F 70 16 110/76 98 09/11/21 23:38 97.4 F L 81 18 166/99 98 09/11/21 22:30 81 17 157/88 98 09/11/21 19:41 85 16 134/90 97 09/11/21 15:17 97.6 F 100 19 158/85 97 Intake and Output 09/11/21 09/12/21 09/12/21 22:59 06:59 14:59 Other: Voiding Method Toilet # Voids 1 2 Weight 79.379 kg 83.3 kg Results CBC & Chem 7: 09/11/21 17:27 09/12/21 11:50 Labs: Abnormal Lab Results - Last 24 Hours (Table) 09/11/21 09/11/21 09/11/21 Range/Units 17:27 17:27 17:27 WBC 2.9 L (3.8-10.6) k/uL Hgb 12.7 L (13.0-17.5) gm/dL MCHC 30.4 L (31.0-37.0) g/dL APTT 20.8 L (22.0-30.0) sec Sodium 135 L (137-145) mmol/L Potassium 5.2 H (3.5-5.1) mmol/L BUN 6 L (9-20) mg/dL Creatinine 0.59 L (0.66-1.25) mg/dL Glucose 109 H (74-99) mg/dL Total Protein 8.3 H (6.3-8.2) g/dL Thrombosis Risk Factor Assmnt - Choose All That Apply Each Factor Represents 1 point: Swollen legs (current) Each Risk Factor Represents 2 Points: Age 61-74 years Thrombosis Risk Factor Assessment Total Risk Factor Score: 3 Thrombosis Risk Factor Assessment Level: Moderate Risk
--- NOTE | 2021-09-12 19:58 | P.DS ---
Providers Date of admission: 09/11/21 20:01 Expected date of discharge: 09/12/21 Attending physician: Tom Coe Consults: 09/11/21 19:46 Consult Physician Urgent Consulting Provider: [facility] Consult Reason/Comments: Chest pain Do you want consulting provider notified?: Yes Primary care physician: Stated None Hospital Course: Chief Complaint: Chest pain This is a 65-year-old patient who follows with qa consultant Dr. BASILIA Go. He does not have a family doctor. He's had multiple presentations to the hospital the course of the year. Patient does have chronic pain syndrome and does follow with the pain specialist. Had a pain clinic. Patient now presents that yesterday he felt as if something was sitting on his chest. It went down to the left arm. Whole days pain was present off and on for 20 minutes also some perspiration. decided to come in. Patient's EKG was unremarkable. Troponins were negative. Patient is seen by currently. Cleared for discharge. Questions were answered. Consultation: Dr. Moran from cardiology Past medical history to include: CAD with stent and being in 2017, COPD, DVT, GERD, hypertension, hyperlipidemia, osteoarthritis, gastritis, diverticulosis, peptic ulcer disease, chronic low back pain, chronic pain syndrome, migraines, DVT of the left arm, numbness and tingling in the arms and legs, sinus trouble, multiple low back surgeries, morphine pain pump inserted and removed due to infection, left rotator cuff repair, cervical fusion cage Social history: . Does use a walker and a cane to get about. Does not smoke. Denies alcohol or recreational drugs. Family history: Reviewed, noncontributory to presentation Physical examination: VITAL SIGNS: 98.2, 71, 17, 115/79, 96% room air GENERAL: Average build, laying in bed, awake, comfortable EYES: Pupils equal. Conjunctiva normal. HEENT: External appearance of nose and ears normal, oral cavity grossly normal. NECK: JVD not raised; masses not palpable. HEART: First and second heart sounds are normal; no edema. LUNGS: Respiratory rate normal; clear to auscultation. ABDOMEN: Soft, nontender, liver spleen not palpable, no masses palpable. PSYCH: Alert and oriented x3; mood and affect normal. INVESTIGATIONS, reviewed in the clinical context: Ultrasound renal artery duplex: Negative for stenosis potassium today 4.3 WBC 2.9 hemoglobin 12.7 platelets 308 sodium 135 potassium 5.2 creatinine 0.59 Troponin I 3 negative LDL 96 Coronavirus [PCR]: Not detected EKG tracing personally reviewed by me-normal sinus rhythm. Rate 87 Chest x-ray film personally reviewed by me-no obvious infiltrates. Assessment and plan: -Anterior chest wall pain. The patient with known CAD. Could be musculoskeletal Negative troponins. EKG unremarkable. -CAD with history of stent, 2016 Aspirin 81 mg. Beta jerald. Lipitor. -GERD Tums when necessary -Hyperlipidemia Lipitor 80 mg daily at bedtime -Essential hypertension Lopressor 50 mg twice a day hydralazine 50 mg 3 times a day -Chronic pain syndrome patient does follow at the pain clinic with a pain specialist MS Contin 30 mg every 8 medical 100 mg twice a day Percocet 10 every 8 Disposition: Home Plan - Discharge Summary Discharge Rx Participant: Yes New Discharge Prescriptions: New Aspirin 81 mg PO DAILY #30 tab Continue Morphine Sulfate ER [Ms Contin] 30 mg PO Q8H tiZANidine [Zanaflex] 4 mg PO TID Ezetimibe [Zetia] 10 mg PO DAILY #30 tab oxyCODONE-APAP 10-325MG [Percocet 10-325 mg] 1 tab PO Q8H Prasugrel [Effient] 10 mg PO DAILY Metoprolol Tartrate [Lopressor] 50 mg PO BID #60 tab hydrALAZINE HCL [Apresoline] 50 mg PO TID 30 Days #90 tab Atorvastatin [Lipitor] 80 mg PO HS 30 Days #30 tab Nitroglycerin Sl Tabs [Nitrostat] 0.4 mg SL Q5M PRN PRN Reason: Chest Pain Acetaminophen Tab [Tylenol] 650 mg PO Q4H PRN PRN Reason: Fever And/Or Mild Pain Pregabalin [Lyrica] 100 mg PO BID Discharge Medication List Morphine Sulfate ER [Ms Contin] 30 mg PO Q8H 10/10/17 [History] tiZANidine [Zanaflex] 4 mg PO TID 02/26/18 [History] Ezetimibe [Zetia] 10 mg PO DAILY #30 tab 05/24/19 [Rx] oxyCODONE-APAP 10-325MG [Percocet 10-325 mg] 1 tab PO Q8H 01/02/20 [History] Prasugrel [Effient] 10 mg PO DAILY 08/06/20 [History] Metoprolol Tartrate [Lopressor] 50 mg PO BID #60 tab 05/17/21 [Rx] Atorvastatin [Lipitor] 80 mg PO HS 30 Days #30 tab 06/13/21 [Rx] hydrALAZINE HCL [Apresoline] 50 mg PO TID 30 Days #90 tab 06/13/21 [Rx] Acetaminophen Tab [Tylenol] 650 mg PO Q4H PRN 07/13/21 [History] Nitroglycerin Sl Tabs [Nitrostat] 0.4 mg SL Q5M PRN 07/13/21 [History] Pregabalin [Lyrica] 100 mg PO BID 09/11/21 [History] Aspirin 81 mg PO DAILY #30 tab 09/12/21 [Rx] Follow up Appointment(s)/Referral(s): Fannie Go MD [STAFF PHYSICIAN] - 2 Weeks (September 25 9:00) Nelson Almonte MD [STAFF PHYSICIAN] - 3 Days Patient Instructions/Handouts: Chest Pain (DC) Discharge Disposition: HOME SELF-CARE
== END 2021-09-12 17:00 | disposition home or self-care (01) ==
LOC: EC 15:12 → 6NMEDSUR 20:01 → 3SCARD 20:42
PROVIDERS: ADMIT Hospitalist; ATTEND Hospitalist
DX: R07.89 Other chest pain (principal); R20.2 Paresthesia of skin; R20.0 Anesthesia of skin; M79.89 Other specified soft tissue disorders; I25.10 Atherosclerotic heart disease of native coronary artery without angina pectoris; J44.9 Chronic obstructive pulmonary disease, unspecified; K21.9 Gastro-esophageal reflux disease without esophagitis; E78.5 Hyperlipidemia, unspecified; I10 Essential (primary) hypertension; G89.4 Chronic pain syndrome; M19.90 Unspecified osteoarthritis, unspecified site; E05.90 Thyrotoxicosis, unspecified without thyrotoxic crisis or storm; K44.9 Diaphragmatic hernia without obstruction or gangrene; R00.2 Palpitations; G43.909 Migraine, unspecified, not intractable, without status migrainosus; K29.70 Gastritis, unspecified, without bleeding; Z20.822 Contact with and (suspected) exposure to COVID-19; Z95.5 Presence of coronary angioplasty implant and graft; Z86.718 Personal history of other venous thrombosis and embolism; Z87.11 Personal history of peptic ulcer disease; Z87.891 Personal history of nicotine dependence; M54.50 Low back pain, unspecified; Z86.19 Personal history of other infectious and parasitic diseases; Z90.49 Acquired absence of other specified parts of digestive tract; Z98.1 Arthrodesis status; Z79.899 Other long term (current) drug therapy; Z79.891 Long term (current) use of opiate analgesic; Z79.02 Long term (current) use of antithrombotics/antiplatelets; Z79.82 Long term (current) use of aspirin; Z88.8 Allergy status to other drugs, medicaments and biological substances; Z82.49 Family history of ischemic heart disease and other diseases of the circulatory system; Z82.5 Family history of asthma and other chronic lower respiratory diseases; Z80.6 Family history of leukemia; Z84.89 Family history of other specified conditions
CPT/HCPCS: 96374; 99285; 36415; 93005; 80061; 80053; 80048; 83735; 84484; 85025; 85610; 85730; 87635; 71046; 93975; G0378 ×3; J2270

== ENCOUNTER 2021-09-26 18:18 | Emergency (ER) | payer MEDICARE, OTHER ==
[2021-09-26 19:41] VITALS: BP 150/78; RESP 18
[2021-09-26] MEDS ORDERED: ONDANSETRON ODT 4 MG TAB PO STA (22:23)
[2021-09-26] MEDS ORDERED: diphenhydrAMINE 50 MG CAP PO STA (22:23)
[2021-09-26] MEDS ORDERED: HYDROmorphone 1 MG/ML 1 ML SYRINGE IM STA (22:23)
--- NOTE | 2021-09-26 22:40 | ED ---
Headache HPI - General Chief Complaint: Headache Stated Complaint: Abd pain Time Seen by Provider: 09/26/21 22:01 Mode of arrival: ambulatory Limitations: no limitations - Related Data Home Medications Medication Instructions Recorded Confirmed Morphine Sulfate ER [Ms Contin] 30 mg PO Q8H 10/10/17 09/26/21 tiZANidine [Zanaflex] 4 mg PO TID 02/26/18 09/26/21 oxyCODONE-APAP 10-325MG [Percocet 1 tab PO Q8H 01/02/20 09/26/21 10-325 mg] Prasugrel [Effient] 10 mg PO DAILY 08/06/20 09/26/21 Acetaminophen Tab [Tylenol] 650 mg PO Q4H PRN 07/13/21 09/26/21 Nitroglycerin Sl Tabs [Nitrostat] 0.4 mg SL Q5M PRN 07/13/21 09/26/21 Pregabalin [Lyrica] 100 mg PO BID 09/11/21 09/26/21 Previous Rx's Medication Instructions Recorded Ezetimibe [Zetia] 10 mg PO DAILY #30 tab 05/24/19 Metoprolol Tartrate [Lopressor] 50 mg PO BID #60 tab 05/17/21 Atorvastatin [Lipitor] 80 mg PO HS 30 Days #30 tab 06/13/21 hydrALAZINE HCL [Apresoline] 50 mg PO TID 30 Days #90 tab 06/13/21 Aspirin 81 mg PO DAILY #30 tab 09/12/21 Allergies Allergy/AdvReac Type Severity Reaction Status Date / Time ibuprofen [From Motrin] Allergy Rash/Hives Verified 09/26/21 22:19 ketorolac tromethamine Allergy Rash/Hives Verified 09/26/21 22:19 [From Toradol] Review of Systems ROS Statement: Those systems with pertinent positive or pertinent negative responses have been documented in the HPI. ROS Other: All systems not noted in ROS Statement are negative. Past Medical History Past Medical History: Coronary Artery Disease (CAD), Chest Pain / Angina, COPD, Deep Vein Thrombosis (DVT), GERD/Reflux, Hyperlipidemia, Hypertension, Osteoarthritis (OA), Thyroid Disorder Additional Past Medical History / Comment(s): Occasional palpitations, gastritis, small hiatal hernia, diverticular dx, pt states years ago he had PUD, chronic low back pain, chronic pain syndrome, migraines, DVT L arm, numbness/tingling bilateral lower legs, bilateral past R hand fracture, arthritis multiple joints, hyperthyroid, sinus problems. History of Any Multi-Drug Resistant Organisms: None Reported Past Surgical History: Back Surgery, Cholecystectomy, Heart Catheterization With Stent, Orthopedic Surgery Additional Past Surgical History / Comment(s): EGDs/colonoscopies, multiple low back surgeries, bilateral arm and bilateral thigh surgeries for brown recluse spider bites with infection, morphine pain pump insertion and removal due to infection, PCI with stents, L rotator cuff repair, L knee arthroscopy, cervical fusion/cage, R cataract removal. 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 He lived to be 82 yrs old. Mother History Unknown: Yes Family Medical History: Hypertension, Myocardial Infarction ([place]) Additional Family Medical History / Comment(s): Mother of a [place] at the age of 55yrs. Brother(s) Family Medical History: Cancer, COPD Additional Family Medical History / Comment(s): Leukemia General Exam Limitations: no limitations Course Vital Signs 09/26/21 09/26/21 19:38 23:34 Temperature 100.3 F H 98.1 F Pulse Rate 125 H 72 Respiratory 18 18 Rate Blood Pressure 150/78 O2 Sat by Pulse 99 99 Oximetry Medical Decision Making - Lab Data Lab Results 09/26/21 Range/Units 19:44 Coronavirus (PCR) Not Detected (Not Detectd) - EKG Data -: EKG Interpreted by Me (EKG sinus tachycardia 106 [place] 146 QRS 88 QTc 441) Disposition Clinical Impression: Headache, Migraine headache Disposition: HOME SELF-CARE Condition: Good Instructions (If sedation given, give patient instructions): Acute Headache (ED) Is patient prescribed a controlled substance at d/c from ED?: No Referrals: None,Stated [Primary Care Provider] - 1-2 days
--- NOTE | 2021-09-26 22:47 | XR ---
EXAMINATION TYPE: XR chest 1V portable DATE OF EXAM: 09/26/2021 COMPARISON: 09/11/2021 HISTORY: Chest pain TECHNIQUE: Single view FINDINGS: Heart is normal. Lungs are clear of consolidation. There are no hilar masses. There is cerv ical spine fusion surgery. Diaphragm is normal. The bony thorax is intact. IMPRESSION: No active cardiopulmonary disease. Normal heart. No change.
[2021-09-26 23:35] VITALS: PULSE 72; TEMP 98.1
[2021-09-27] MEDS ORDERED: Acetaminophen-Codeine 300-30mg TAB PO STA (00:51)
[2021-09-27] MEDS ORDERED: PROCHLORPERAZINE 5 MG TAB PO STA (00:51)
[2021-09-27] MEDS ORDERED: ACET/COD 300 MG/30 MG STARTER PACK 6 TAB BTL PO STA (00:51)
[2021-09-27] MEDS ORDERED: ONDANSETRON 4 MG ODT STARTER PACK 2 TAB BTL PO STA (00:51)
[2021-09-27] MEDS ORDERED: diazePAM 5 MG TAB PO STA (00:51)
== END 2021-09-27 01:35 | disposition home or self-care (01) ==
LOC: EC 18:18
DX: G43.909 Migraine, unspecified, not intractable, without status migrainosus (principal); I25.10 Atherosclerotic heart disease of native coronary artery without angina pectoris; J44.9 Chronic obstructive pulmonary disease, unspecified; K21.9 Gastro-esophageal reflux disease without esophagitis; E78.5 Hyperlipidemia, unspecified; I10 Essential (primary) hypertension; M19.90 Unspecified osteoarthritis, unspecified site; E07.9 Disorder of thyroid, unspecified; Z79.82 Long term (current) use of aspirin; Z88.6 Allergy status to analgesic agent; Z88.1 Allergy status to other antibiotic agents; Z86.718 Personal history of other venous thrombosis and embolism; Z90.49 Acquired absence of other specified parts of digestive tract; Z95.5 Presence of coronary angioplasty implant and graft; Z87.891 Personal history of nicotine dependence; Z20.822 Contact with and (suspected) exposure to COVID-19
CPT/HCPCS: 99284; 96372; 93005; 87635; 71045; S0183; J1170; S0119

== ENCOUNTER 2021-10-23 01:51 | Emergency (ER) | payer MEDICARE, OTHER ==
[2021-10-23 01:59] VITALS: BP 142/86; PULSE 82; RESP 20; TEMP 97.9
[2021-10-23] MEDS ORDERED: diphenhydrAMINE 50 MG/ML 1 ML VIAL IM STA (02:26)
[2021-10-23] MEDS ORDERED: METOCLOPRAMIDE 5 MG/ML 2 ML VIAL IM STA (02:26)
[2021-10-23] MEDS ORDERED: HYDROmorphone 1 MG/ML 1 ML SYRINGE IM STA (02:40)
--- NOTE | 2021-10-23 02:41 | ED ---
Headache HPI - General Chief Complaint: Headache Stated Complaint: headache, nausea Time Seen by Provider: 10/23/21 02:22 Mode of arrival: ambulatory Limitations: no limitations - Related Data Home Medications Medication Instructions Recorded Confirmed Morphine Sulfate ER [Ms Contin] 30 mg PO Q8H 10/10/17 09/26/21 tiZANidine [Zanaflex] 4 mg PO TID 02/26/18 09/26/21 oxyCODONE-APAP 10-325MG [Percocet 1 tab PO Q8H 01/02/20 09/26/21 10-325 mg] Prasugrel [Effient] 10 mg PO DAILY 08/06/20 09/26/21 Acetaminophen Tab [Tylenol] 650 mg PO Q4H PRN 07/13/21 09/26/21 Nitroglycerin Sl Tabs [Nitrostat] 0.4 mg SL Q5M PRN 07/13/21 09/26/21 Pregabalin [Lyrica] 100 mg PO BID 09/11/21 09/26/21 Previous Rx's Medication Instructions Recorded Ezetimibe [Zetia] 10 mg PO DAILY #30 tab 05/24/19 Metoprolol Tartrate [Lopressor] 50 mg PO BID #60 tab 05/17/21 Atorvastatin [Lipitor] 80 mg PO HS 30 Days #30 tab 06/13/21 hydrALAZINE HCL [Apresoline] 50 mg PO TID 30 Days #90 tab 06/13/21 Aspirin 81 mg PO DAILY #30 tab 09/12/21 Allergies Allergy/AdvReac Type Severity Reaction Status Date / Time ibuprofen [From Motrin] Allergy Rash/Hives Verified 10/23/21 02:00 ketorolac tromethamine Allergy Rash/Hives Verified 10/23/21 02:00 [From Toradol] Review of Systems ROS Statement: Those systems with pertinent positive or pertinent negative responses have been documented in the HPI. ROS Other: All systems not noted in ROS Statement are negative. Past Medical History Past Medical History: Coronary Artery Disease (CAD), Chest Pain / Angina, COPD, Deep Vein Thrombosis (DVT), GERD/Reflux, Hyperlipidemia, Hypertension, Osteoarthritis (OA), Thyroid Disorder Additional Past Medical History / Comment(s): Occasional palpitations, gastritis, small hiatal hernia, diverticular dx, pt states years ago he had PUD, chronic low back pain, chronic pain syndrome, migraines, DVT L arm, numbness/tingling bilateral lower legs, bilateral past R hand fracture, arthritis multiple joints, hyperthyroid, sinus problems. History of Any Multi-Drug Resistant Organisms: None Reported Past Surgical History: Back Surgery, Cholecystectomy, Heart Catheterization With Stent, Orthopedic Surgery Additional Past Surgical History / Comment(s): EGDs/colonoscopies, multiple low back surgeries, bilateral arm and bilateral thigh surgeries for brown recluse spider bites with infection, morphine pain pump insertion and removal due to infection, PCI with stents, L rotator cuff repair, L knee arthroscopy, cervical fusion/cage, R cataract removal. 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 He lived to be 82 yrs old. Mother History Unknown: Yes Family Medical History: Hypertension, Myocardial Infarction ([place]) Additional Family Medical History / Comment(s): Mother of a [place] at the age of 55yrs. Brother(s) Family Medical History: Cancer, COPD Additional Family Medical History / Comment(s): Leukemia General Exam Limitations: no limitations Course Vital Signs 10/23/21 01:58 Temperature 97.9 F Pulse Rate 82 Respiratory 20 Rate Blood Pressure 142/86 O2 Sat by Pulse 99 Oximetry Disposition Clinical Impression: Headache Disposition: HOME SELF-CARE Condition: Good Instructions (If sedation given, give patient instructions): Acute Headache (ED) Is patient prescribed a controlled substance at d/c from ED?: No Referrals: None,Stated [Primary Care Provider] - 1-2 days
== END 2021-10-23 03:22 | disposition home or self-care (01) ==
LOC: EC 01:51
DX: R51.9 Headache, unspecified (principal); I25.10 Atherosclerotic heart disease of native coronary artery without angina pectoris; J44.9 Chronic obstructive pulmonary disease, unspecified; E78.5 Hyperlipidemia, unspecified; I10 Essential (primary) hypertension; M19.90 Unspecified osteoarthritis, unspecified site; E05.90 Thyrotoxicosis, unspecified without thyrotoxic crisis or storm; Z87.891 Personal history of nicotine dependence; Z79.82 Long term (current) use of aspirin; Z79.899 Other long term (current) drug therapy; Z86.718 Personal history of other venous thrombosis and embolism
CPT/HCPCS: 99283; 96372 ×3; J1200; J2765; J1170

== ENCOUNTER 2021-11-20 17:38 | Emergency (ER) | payer MEDICARE, OTHER ==
[2021-11-20 18:59] VITALS: TEMP 97.1
[2021-11-20] MEDS ORDERED: diphenhydrAMINE 50 MG/ML 1 ML VIAL IVP STA (22:00)
[2021-11-20] MEDS ORDERED: METOCLOPRAMIDE 5 MG/ML 2 ML VIAL IVP STA (22:00)
[2021-11-20] MEDS ORDERED: DEXAMETHASONE SOD PHOSPHATE 10 MG/ML 1 ML VIAL IVP STA (22:00)
[2021-11-20] MEDS ORDERED: HYDROmorphone 1 MG/ML 1 ML SYRINGE IVP STA ×2 (22:00→22:56)
[2021-11-20 22:09] VITALS: RESP 18
[2021-11-20 22:22] LABS: Basophils % (A) 0 %; Eosinophils # (A) 0.1 k/uL (0-0.7); Eosinophils % (A) 1 %; HCT 44.5 % (39.0-53.0); HGB 14.1 gm/dL (13.0-17.5); Lymphocytes % (A) 13 %; MCH 28.9 pg (25.0-35.0); MCHC 31.7 g/dL (31.0-37.0); MCV 91.1 fL (80.0-100.0); Mean Platelet Volume 6.6; Monocytes # (A) 0.4 k/uL (0-1.0); Monocytes % (A) 6 %; Neutrophils # (A) 6.1 k/uL (1.3-7.7); Neutrophils % (A) 80 %; Platelet Count 531 k/uL (150-450); RBC 4.88 m/uL (4.30-5.90); RDW 14.3 % (11.5-15.5); WBC 7.6 k/uL (3.8-10.6)
[2021-11-20 22:31] LABS: ALT 12 U/L (4-49); AST 22 U/L (17-59); African American GFR (CKD) >90 (>60 ml/min/1.73 sqM); Albumin 5.3 g/dL (3.5-5.0); Alkaline Phosphatase 87 U/L (38-126); Anion Gap 17 mmol/L; Blood Urea Nitrogen 13 mg/dL (9-20); Calcium 10.5 mg/dL (8.4-10.2); Carbon Dioxide 20 mmol/L (22-30); Chloride 101 mmol/L (98-107); Glucose 137 mg/dL (74-99); Lipase 56 U/L (23-300); Non-African American GFR(CKD) >90 (>60 ml/min/1.73 sqM); Sodium 138 mmol/L (137-145); Total Bilirubin 0.8 mg/dL (0.2-1.3)
[2021-11-20 22:47] LABS: Potassium 4.4 mmol/L (3.5-5.1)
--- NOTE | 2021-11-20 22:55 | ED ---
Abdominal Pain HPI - General Chief Complaint: Abdominal Pain Stated Complaint: headache & vomiting Time Seen by Provider: 11/20/21 21:46 Source: patient Mode of arrival: ambulatory Limitations: no limitations - History of Present Illness Initial Comments: 66 year-old male patient presents for evaluation of headache, abdominal pain, and vomiting. Symptoms started yesterday. He has not taken anything at home due to the vomiting. States he is having light sensitivity. Denies any blurred or double vision. Denies dizziness. Denies numbness, tingling, or weakness to the lower extremities. Denies fever or chills. Denies any head injury. Denies hematochezia, melena, or hematemesis. Patient denies any recent rash, cough, shortness of breath, chest pain, constipation, back pain, numbness, tingling, dizziness, weakness, hematuria, dysuria, urinary urgency, urinary frequency, or any other complaints. - Related Data Home Medications Medication Instructions Recorded Confirmed Morphine Sulfate ER [Ms Contin] 30 mg PO Q8H 10/10/17 09/26/21 tiZANidine [Zanaflex] 4 mg PO TID 02/26/18 09/26/21 oxyCODONE-APAP 10-325MG [Percocet 1 tab PO Q8H 01/02/20 09/26/21 10-325 mg] Prasugrel [Effient] 10 mg PO DAILY 08/06/20 09/26/21 Acetaminophen Tab [Tylenol] 650 mg PO Q4H PRN 07/13/21 09/26/21 Nitroglycerin Sl Tabs [Nitrostat] 0.4 mg SL Q5M PRN 07/13/21 09/26/21 Pregabalin [Lyrica] 100 mg PO BID 09/11/21 09/26/21 Previous Rx's Medication Instructions Recorded Ezetimibe [Zetia] 10 mg PO DAILY #30 tab 05/24/19 Metoprolol Tartrate [Lopressor] 50 mg PO BID #60 tab 05/17/21 Atorvastatin [Lipitor] 80 mg PO HS 30 Days #30 tab 06/13/21 hydrALAZINE HCL [Apresoline] 50 mg PO TID 30 Days #90 tab 06/13/21 Aspirin 81 mg PO DAILY #30 tab 09/12/21 Allergies Allergy/AdvReac Type Severity Reaction Status Date / Time ibuprofen [From Motrin] Allergy Rash/Hives Verified 11/20/21 18:56 ketorolac tromethamine Allergy Rash/Hives Verified 11/20/21 18:56 [From Toradol] Review of Systems ROS Statement: Those systems with pertinent positive or pertinent negative responses have been documented in the HPI. ROS Other: All systems not noted in ROS Statement are negative. Past Medical History Past Medical History: Coronary Artery Disease (CAD), Chest Pain / Angina, COPD, Deep Vein Thrombosis (DVT), GERD/Reflux, Hyperlipidemia, Hypertension, Osteoarthritis (OA), Thyroid Disorder Additional Past Medical History / Comment(s): Occasional palpitations, gastritis, small hiatal hernia, diverticular dx, pt states years ago he had PUD, chronic low back pain, chronic pain syndrome, migraines, DVT L arm, numbness/tingling bilateral lower legs, bilateral past R hand fracture, arthritis multiple joints, hyperthyroid, sinus problems. History of Any Multi-Drug Resistant Organisms: None Reported Past Surgical History: Back Surgery, Cholecystectomy, Heart Catheterization With Stent, Orthopedic Surgery Additional Past Surgical History / Comment(s): EGDs/colonoscopies, multiple low back surgeries, bilateral arm and bilateral thigh surgeries for brown recluse spider bites with infection, morphine pain pump insertion and removal due to infection, PCI with stents, L rotator cuff repair, L knee arthroscopy, cervical fusion/cage, R cataract removal. 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 He lived to be 82 yrs old. Mother History Unknown: Yes Family Medical History: Hypertension, Myocardial Infarction ([place]) Additional Family Medical History / Comment(s): Mother of a [place] at the age of 55yrs. Brother(s) Family Medical History: Cancer, COPD Additional Family Medical History / Comment(s): Leukemia General Exam Limitations: no limitations General appearance: alert, in no apparent distress, other (This is a well- developed, well-nourished adult male patient in no acute distress.) Eye exam: Present: normal appearance, PERRL, EOMI. Absent: scleral icterus, conjunctival injection, periorbital swelling ENT exam: Present: normal exam, normal oropharynx, mucous membranes moist Respiratory exam: Present: normal lung sounds bilaterally. Absent: respiratory distress, wheezes, rales, rhonchi, stridor Cardiovascular Exam: Present: normal rhythm, tachycardia, normal heart sounds. Absent: systolic murmur, diastolic murmur, rubs, gallop, clicks GI/Abdominal exam: Present: soft, normal bowel sounds. Absent: distended, tenderness, guarding, rebound, rigid Neurological exam: Present: alert, oriented X3, CN II-XII intact Expanded Speech: Present: fluid speech Motor strength exam: RUE: 5, LUE: 5, RLE: 5, LLE: 5 Psychiatric exam: Present: normal affect, normal mood Skin exam: Present: warm, dry, intact, normal color. Absent: rash Course Vital Signs 11/20/21 11/20/21 11/20/21 18:56 22:08 23:11 Temperature 97.1 F L Pulse Rate 109 H 115 H 95 Respiratory 20 18 18 Rate Blood Pressure 107/83 139/89 143/98 O2 Sat by Pulse 99 99 98 Oximetry Medical Decision Making - Medical Decision Making 66-year-old male patient presents to the emergency department today for evaluation of headache, abdominal pain, vomiting. Physical examination did reveal midepigastric tenderness. He is neurologically intact with no focal deficits. He is given IV fluids and medication for headache. Labs reviewed and are unremarkable. Discharged follow up with his primary care physician for recheck in 1-2 days. Return parameters were discussed in detail. He verbalizes understanding and agrees with this plan. My attending is Dr. Arellano. - Lab Data Result diagrams: 11/20/21 22:07 11/20/21 22:07 Lab Results 11/20/21 11/20/21 11/20/21 Range/Units 22:07 22:07 22:07 WBC 7.6 (3.8-10.6) k/uL RBC 4.88 (4.30-5.90) m/uL Hgb 14.1 (13.0-17.5) gm/dL Hct 44.5 (39.0-53.0) % MCV 91.1 (80.0-100.0) fL MCH 28.9 (25.0-35.0) pg MCHC 31.7 (31.0-37.0) g/dL RDW 14.3 (11.5-15.5) % Plt Count 531 H (150-450) k/uL MPV 6.6 Neutrophils % 80 % Lymphocytes % 13 % Monocytes % 6 % Eosinophils % 1 % Basophils % 0 % Neutrophils # 6.1 (1.3-7.7) k/uL Lymphocytes # 1.0 (1.0-4.8) k/uL Monocytes # 0.4 (0-1.0) k/uL Eosinophils # 0.1 (0-0.7) k/uL Basophils # 0.0 (0-0.2) k/uL Sodium 138 (137-145) mmol/L Potassium 4.4 (3.5-5.1) mmol/L Chloride 101 (98-107) mmol/L Carbon Dioxide 20 L (22-30) mmol/L Anion Gap 17 mmol/L BUN 13 (9-20) mg/dL Creatinine 0.63 L (0.66-1.25) mg/dL Est GFR (CKD-EPI)AfAm >90 (>60 ml/min/1.73 sqM) Est GFR (CKD-EPI)NonAf >90 (>60 ml/min/1.73 sqM) Glucose 137 H (74-99) mg/dL Calcium 10.5 H (8.4-10.2) mg/dL Total Bilirubin 0.8 (0.2-1.3) mg/dL AST 22 (17-59) U/L ALT 12 (4-49) U/L Alkaline Phosphatase 87 (38-126) U/L Troponin I <0.012 (0.000-0.034) ng/mL Total Protein 9.0 H (6.3-8.2) g/dL Albumin 5.3 H (3.5-5.0) g/dL Lipase 56 (23-300) U/L Coronavirus (PCR) (Not Detectd) 11/20/21 Range/Units 22:07 WBC (3.8-10.6) k/uL RBC (4.30-5.90) m/uL Hgb (13.0-17.5) gm/dL Hct (39.0-53.0) % MCV (80.0-100.0) fL MCH (25.0-35.0) pg MCHC (31.0-37.0) g/dL RDW (11.5-15.5) % Plt Count (150-450) k/uL MPV Neutrophils % % Lymphocytes % % Monocytes % % Eosinophils % % Basophils % % Neutrophils # (1.3-7.7) k/uL Lymphocytes # (1.0-4.8) k/uL Monocytes # (0-1.0) k/uL Eosinophils # (0-0.7) k/uL Basophils # (0-0.2) k/uL Sodium (137-145) mmol/L Potassium (3.5-5.1) mmol/L Chloride (98-107) mmol/L Carbon Dioxide (22-30) mmol/L Anion Gap mmol/L BUN (9-20) mg/dL Creatinine (0.66-1.25) mg/dL Est GFR (CKD-EPI)AfAm (>60 ml/min/1.73 sqM) Est GFR (CKD-EPI)NonAf (>60 ml/min/1.73 sqM) Glucose (74-99) mg/dL Calcium (8.4-10.2) mg/dL Total Bilirubin (0.2-1.3) mg/dL AST (17-59) U/L ALT (4-49) U/L Alkaline Phosphatase (38-126) U/L Troponin I (0.000-0.034) ng/mL Total Protein (6.3-8.2) g/dL Albumin (3.5-5.0) g/dL Lipase (23-300) U/L Coronavirus (PCR) Not Detected (Not Detectd) - EKG Data -: EKG Interpreted by Me EKG Comments: EKG obtained at 2313 shows normal sinus rhythm with a ventricular rate of 95, [place] interval 148, QRS duration 86, QT 350, QTC 439. No evidence of ST elevation or depression. Disposition Clinical Impression: Migraine headache Disposition: HOME SELF-CARE Condition: Good Instructions (If sedation given, give patient instructions): Migraine Headache (ED) Additional Instructions: Follow up with your primary care physician for recheck in 1-2 days. Return for any new, worsening, or concerning symptoms. Is patient prescribed a controlled substance at d/c from ED?: No Referrals: None,Stated [Primary Care Provider] - 1-2 days Time of Disposition: 22:55
[2021-11-20 23:12] VITALS: BP 143/98; PULSE 95
== END 2021-11-20 23:39 | disposition home or self-care (01) ==
LOC: EC 17:38
DX: G43.909 Migraine, unspecified, not intractable, without status migrainosus (principal); I25.10 Atherosclerotic heart disease of native coronary artery without angina pectoris; J44.9 Chronic obstructive pulmonary disease, unspecified; Z86.718 Personal history of other venous thrombosis and embolism; E78.5 Hyperlipidemia, unspecified; I10 Essential (primary) hypertension; M19.90 Unspecified osteoarthritis, unspecified site; Z79.82 Long term (current) use of aspirin; Z79.899 Other long term (current) drug therapy
CPT/HCPCS: 36415; 93005; 80053; 83690; 84484; 85025; 87635; 99284; 96374; 96375 ×3; 96376; J1200; J1100; J2765; J1170

== ENCOUNTER 2021-11-21 18:35 | Emergency (ER) | payer MEDICARE, OTHER ==
[2021-11-22] MEDS ORDERED: SCOPOLAMINE 1.5MG/72HR PATCH TRANSDERM STA (00:11)
[2021-11-22] MEDS ORDERED: HYDROmorphone 1 MG/ML 1 ML SYRINGE IM STA (00:11)
[2021-11-22] MEDS ORDERED: HALOPERIDOL LACTATE 5 MG/ML 1 ML VIAL IM STA (00:11)
--- NOTE | 2021-11-22 00:11 | ED ---
Headache HPI - General Chief Complaint: Headache Stated Complaint: Migraine, abd pain, vomiting Time Seen by Provider: 11/21/21 23:41 Source: RN notes reviewed, old records reviewed Mode of arrival: ambulatory Limitations: no limitations - History of Present Illness Initial Comments: This is a 66-year-old male to the emergency room today. Patient is placed today for evaluation regards to headache recurrent migraine headaches for this patient with history of the same. Patient is well-known to our ER today. Patient was here yesterday. He was here for same complaints states he does not feel much well when he went home. Patient is persistent headache and vomiting MD Complaint: headache, "migraine" -: days(s) Onset Description: gradual Location: right, left, frontal Severity: severe Severity scale (1-10): 8 Quality: aching, throbbing, pulsatile, intermittent, similar to previous headaches Consistency: intermittent Improves With: nothing Worsens With: none Associated Symptoms: nausea, vomiting Other Symptoms: malaise Treatments Prior to Arrival: none - Related Data Home Medications Medication Instructions Recorded Confirmed Morphine Sulfate ER [Ms Contin] 30 mg PO Q8H 10/10/17 09/26/21 tiZANidine [Zanaflex] 4 mg PO TID 02/26/18 09/26/21 oxyCODONE-APAP 10-325MG [Percocet 1 tab PO Q8H 01/02/20 09/26/21 10-325 mg] Prasugrel [Effient] 10 mg PO DAILY 08/06/20 09/26/21 Acetaminophen Tab [Tylenol] 650 mg PO Q4H PRN 07/13/21 09/26/21 Nitroglycerin Sl Tabs [Nitrostat] 0.4 mg SL Q5M PRN 07/13/21 09/26/21 Pregabalin [Lyrica] 100 mg PO BID 09/11/21 09/26/21 Previous Rx's Medication Instructions Recorded Ezetimibe [Zetia] 10 mg PO DAILY #30 tab 05/24/19 Metoprolol Tartrate [Lopressor] 50 mg PO BID #60 tab 05/17/21 Atorvastatin [Lipitor] 80 mg PO HS 30 Days #30 tab 06/13/21 hydrALAZINE HCL [Apresoline] 50 mg PO TID 30 Days #90 tab 06/13/21 Aspirin 81 mg PO DAILY #30 tab 09/12/21 Allergies Allergy/AdvReac Type Severity Reaction Status Date / Time ibuprofen [From Motrin] Allergy Rash/Hives Verified 11/21/21 20:27 ketorolac tromethamine Allergy Rash/Hives Verified 11/21/21 20:27 [From Toradol] Review of Systems ROS Statement: Those systems with pertinent positive or pertinent negative responses have been documented in the HPI. ROS Other: All systems not noted in ROS Statement are negative. Past Medical History Past Medical History: Coronary Artery Disease (CAD), Chest Pain / Angina, COPD, Deep Vein Thrombosis (DVT), GERD/Reflux, Hyperlipidemia, Hypertension, Osteoarthritis (OA), Thyroid Disorder Additional Past Medical History / Comment(s): Occasional palpitations, gastritis, small hiatal hernia, diverticular dx, pt states years ago he had PUD, chronic low back pain, chronic pain syndrome, migraines, DVT L arm, numbness/ti ngling bilateral lower legs, bilateral past R hand fracture, arthritis multiple joints, hyperthyroid, sinus problems. History of Any Multi-Drug Resistant Organisms: None Reported Past Surgical History: Back Surgery, Cholecystectomy, Heart Catheterization With Stent, Orthopedic Surgery Additional Past Surgical History / Comment(s): EGDs/colonoscopies, multiple low back surgeries, bilateral arm and bilateral thigh surgeries for brown recluse spider bites with infection, morphine pain pump insertion and removal due to infection, PCI with stents, L rotator cuff repair, L knee arthroscopy, cervical fusion/cage, R cataract removal. 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 He lived to be 82 yrs old. Mother History Unknown: Yes Family Medical History: Hypertension, Myocardial Infarction ([place]) Additional Family Medical History / Comment(s): Mother of a [place] at the age of 55yrs. Brother(s) Family Medical History: Cancer, COPD Additional Family Medical History / Comment(s): Leukemia General Exam Limitations: no limitations General appearance: alert, in no apparent distress Head exam: Present: atraumatic, normocephalic, normal inspection Eye exam: Present: normal appearance, PERRL, EOMI. Absent: scleral icterus, conjunctival injection, periorbital swelling ENT exam: Present: normal exam, mucous membranes moist Neck exam: Present: normal inspection. Absent: tenderness, meningismus, lymphadenopathy Respiratory exam: Present: normal lung sounds bilaterally. Absent: respiratory distress, wheezes, rales, rhonchi, stridor Cardiovascular Exam: Present: regular rate, normal rhythm, normal heart sounds. Absent: systolic murmur, diastolic murmur, rubs, gallop, clicks GI/Abdominal exam: Present: soft, normal bowel sounds. Absent: distended, tenderness, guarding, rebound, rigid Extremities exam: Present: normal inspection, full ROM, normal capillary refill. Absent: tenderness, pedal edema, joint swelling, calf tenderness Back exam: Present: normal inspection Neurological exam: Present: alert, oriented X3, CN II-XII intact Psychiatric exam: Present: normal affect, normal mood Skin exam: Present: warm, dry, intact, normal color. Absent: rash Course Vital Signs 11/21/21 20:27 Temperature 97.9 F Pulse Rate 121 H Respiratory 18 Rate Blood Pressure 141/86 O2 Sat by Pulse 98 Oximetry - Reevaluation(s) Reevaluation #1: 11/22/21 00:54 Medical record is reviewed Reevaluation #2: 11/22/21 01:01 Patient symptoms are currently improved Reevaluation #3: 11/22/21 01:01 Patient informed results questions answered feels good for discharge Medical Decision Making - Medical Decision Making 66 male to the ER today for evaluation. Patient's plain today for evaluation of acute on chronic migraine headache. Headache is well-controlled currently and patient can be discharged home Disposition Clinical Impression: Intractable headache, Vomiting, Migraine headache Disposition: HOME SELF-CARE Condition: Fair Instructions (If sedation given, give patient instructions): Acute Headache (ED) Is patient prescribed a controlled substance at d/c from ED?: No Referrals: None,Stated [Primary Care Provider] - 1-2 days
[2021-11-22 01:38] VITALS: BP 142/76; PULSE 102; RESP 16; TEMP 98.3
== END 2021-11-22 01:37 | disposition home or self-care (01) ==
LOC: EC 18:35
DX: G43.919 Migraine, unspecified, intractable, without status migrainosus (principal); I10 Essential (primary) hypertension; I25.10 Atherosclerotic heart disease of native coronary artery without angina pectoris; J44.9 Chronic obstructive pulmonary disease, unspecified; K21.9 Gastro-esophageal reflux disease without esophagitis; E78.5 Hyperlipidemia, unspecified; M19.90 Unspecified osteoarthritis, unspecified site; Z87.891 Personal history of nicotine dependence; Z79.82 Long term (current) use of aspirin; Z79.899 Other long term (current) drug therapy
CPT/HCPCS: 96372 ×2; 99283; J1630; J1170

== ENCOUNTER 2021-12-24 14:55 | Emergency (ER) | payer MEDICARE, OTHER ==
[2021-12-24 15:13] VITALS: BP 130/74; PULSE 90; RESP 20; TEMP 97.6
[2021-12-24] MEDS ORDERED: HYDROmorphone 1 MG/ML 1 ML SYRINGE IM STA (16:19)
[2021-12-24] MEDS ORDERED: ONDANSETRON ODT 4 MG TAB PO STA (16:19)
--- NOTE | 2021-12-24 17:01 | ED ---
Headache HPI - General Chief Complaint: Headache Stated Complaint: Migraine Time Seen by Provider: 12/24/21 16:16 Mode of arrival: ambulatory Limitations: no limitations - History of Present Illness Initial Comments: 66-year-old male past medical history of migraines comes in with a migraine headache. States that it started yesterday. Patient has been seen in our emergency room several times for same complaint. He reports that his symptoms are similar is always. Denies any new symptoms. States he has some blurred vision which is common for him. He did not take anything at home for his pain. He does follow with a neurologist in a pain management doctor for chronic pain. He denies any head injuries. No fevers, chills or neck stiffness. Patient reports to worsening visual changes in his left eye over his right eye. States that he does have an appointment with an refrigeration engine operator at the end of this month. His vision changes have been progressive over the past 6 months. He denies any difficulties with ambulation. No numbness, tingling or weakness in his extremities. No other alleviating, precipitating or modifying factors - Related Data Home Medications Medication Instructions Recorded Confirmed Morphine Sulfate ER [Ms Contin] 30 mg PO Q8H 10/10/17 09/26/21 tiZANidine [Zanaflex] 4 mg PO TID 02/26/18 09/26/21 oxyCODONE-APAP 10-325MG [Percocet 1 tab PO Q8H 01/02/20 09/26/21 10-325 mg] Prasugrel [Effient] 10 mg PO DAILY 08/06/20 09/26/21 Acetaminophen Tab [Tylenol] 650 mg PO Q4H PRN 07/13/21 09/26/21 Nitroglycerin Sl Tabs [Nitrostat] 0.4 mg SL Q5M PRN 07/13/21 09/26/21 Pregabalin [Lyrica] 100 mg PO BID 09/11/21 09/26/21 Previous Rx's Medication Instructions Recorded Ezetimibe [Zetia] 10 mg PO DAILY #30 tab 05/24/19 Metoprolol Tartrate [Lopressor] 50 mg PO BID #60 tab 05/17/21 Atorvastatin [Lipitor] 80 mg PO HS 30 Days #30 tab 06/13/21 hydrALAZINE HCL [Apresoline] 50 mg PO TID 30 Days #90 tab 06/13/21 Aspirin 81 mg PO DAILY #30 tab 09/12/21 Allergies Allergy/AdvReac Type Severity Reaction Status Date / Time ibuprofen [From Motrin] Allergy Rash/Hives Verified 12/24/21 15:11 ketorolac tromethamine Allergy Rash/Hives Verified 12/24/21 15:11 [From Toradol] Review of Systems ROS Statement: Those systems with pertinent positive or pertinent negative responses have been documented in the HPI. ROS Other: All systems not noted in ROS Statement are negative. Past Medical History Past Medical History: Coronary Artery Disease (CAD), Chest Pain / Angina, COPD, Deep Vein Thrombosis (DVT), GERD/Reflux, Hyperlipidemia, Hypertension, Osteoarthritis (OA), Thyroid Disorder Additional Past Medical History / Comment(s): Occasional palpitations, gastritis, small hiatal hernia, diverticular dx, pt states years ago he had PUD, chronic low back pain, chronic pain syndrome, migraines, DVT L arm, numbness/tingling bilateral lower legs, bilateral past R hand fracture, arthri tis multiple joints, hyperthyroid, sinus problems. History of Any Multi-Drug Resistant Organisms: None Reported Past Surgical History: Back Surgery, Cholecystectomy, Heart Catheterization With Stent, Orthopedic Surgery Additional Past Surgical History / Comment(s): EGDs/colonoscopies, multiple low back surgeries, bilateral arm and bilateral thigh surgeries for brown recluse spider bites with infection, morphine pain pump insertion and removal due to infection, PCI with stents, L rotator cuff repair, L knee arthroscopy, cervical fusion/cage, R cataract removal. 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 He lived to be 82 yrs old. Mother History Unknown: Yes Family Medical History: Hypertension, Myocardial Infarction ([place]) Additional Family Medical History / Comment(s): Mother of a [place] at the age of 55yrs. Brother(s) Family Medical History: Cancer, COPD Additional Family Medical History / Comment(s): Leukemia General Exam Limitations: no limitations Course Vital Signs 12/24/21 15:11 Temperature 97.6 F Pulse Rate 90 Respiratory 20 Rate Blood Pressure 130/74 O2 Sat by Pulse 99 Oximetry Medical Decision Making - Medical Decision Making Upon arrival patient is placed into a hallway bed 10. A thorough history and physical exam was performed. Patient was given 1 mg of IM Dilaudid. Additionally given 4 mg of Zofran ODT. Patient is reevaluated and reports improvement in his symptoms. Will be discharged home at this time to follow-up with his neurologist. Return to the emergency room for any worsening symptoms. Patient was discharged in stable condition Disposition Clinical Impression: Headache Disposition: HOME SELF-CARE Condition: Stable Instructions (If sedation given, give patient instructions): Acute Headache (ED) Additional Instructions: Please speak with your pain management doctor about further medications for her headache to include Fioricet, Fiorinal or Imitrex. Return for any new or worsening symptoms Is patient prescribed a controlled substance at d/c from ED?: No Referrals: None,Stated [Primary Care Provider] - 1-2 days Time of Disposition: 16:52
== END 2021-12-24 17:13 | disposition home or self-care (01) ==
LOC: EC 14:55
DX: R51.9 Headache, unspecified (principal); I25.10 Atherosclerotic heart disease of native coronary artery without angina pectoris; J44.9 Chronic obstructive pulmonary disease, unspecified; E78.5 Hyperlipidemia, unspecified; I10 Essential (primary) hypertension; M19.90 Unspecified osteoarthritis, unspecified site; E05.90 Thyrotoxicosis, unspecified without thyrotoxic crisis or storm; Z86.718 Personal history of other venous thrombosis and embolism; Z87.891 Personal history of nicotine dependence; Z79.82 Long term (current) use of aspirin; Z79.899 Other long term (current) drug therapy
CPT/HCPCS: 96372; 99283

== ENCOUNTER 2022-01-03 18:50 | Observation (INO) | payer MEDICARE, OTHER ==
--- NOTE | 2022-01-03 23:13 | XR ---
EXAMINATION TYPE: XR chest 1V portable DATE OF EXAM: 01/03/2022 COMPARISON: 09/26/2021 HISTORY: Headache. Nausea TECHNIQUE: Single view FINDINGS: Heart is normal. Lungs are clear of infiltrate. There is no heart failure. There is cervica l spine fusion surgery. There is no pleural effusion. IMPRESSION: No active cardiopulmonary disease. No change.
--- NOTE | 2022-01-03 23:15 | ED ---
General Adult HPI - General Chief complaint: Extremity Problem,Nontraumatic Stated complaint: feet swelling Time Seen by Provider: 01/03/22 22:51 Source: patient Mode of arrival: ambulatory Limitations: no limitations - History of Present Illness Initial comments: Dictation was produced using [employer] dictation software. please excuse any grammatical, word or spelling errors. Chief Complaint: 66-year-old male presents to the emergency department for leg swelling and chest pain History of Present Illness: 66-year-old male presents emergency department for leg swelling and chest pain. Patient states that his symptoms have been ongoing for the last several days. He states he does take Lasix at home but at a low dose. He does not know exactly what his dosage is. He tried taking some however has not improved the swelling his legs. Patient also complains of some mild dull ache to his left anterior chest and radius of the left upper extremity. Patient has a cough. No fever. He states that sometimes she short of breath with exertion. Patient has history of coronary artery disease. 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 Go. The ROS documented in this emergency department record has been reviewed and confirmed by me. Those systems with pertinent positive or negative responses have been documented in the HPI. All other systems are other negative and/or noncontributory. PHYSICAL EXAM: General Impression: Alert and oriented x3, not in acute distress HEENT: Normocephalic atraumatic, extra-ocular movements intact, pupils equal and reactive to light bilaterally, mucous membranes moist. Cardiovascular: Heart regular rate and rhythm Chest: Able to complete full sentences, no retractions, no tachypnea, lungs clear to auscultation bilaterally Abdomen: abdomen soft, non-tender, non-distended, no organomegaly Musculoskeletal: Pulses present and equal in all extremities, 2+ pitting edema to bilateral lower extremities Motor: no focal deficits noted Neurological: CN II-XII grossly intact, no focal motor or sensory deficits noted Skin: Intact with no visualized rashes Psych: Normal affect and mood ED course: 66-year-old male presents emergency department for leg swelling and chest pain. His chest pain is atypical with typical features. He does have pitting edema however has clear lung sounds bilaterally. He does have reported exertional dyspnea. Vital signs upon arrival are within acceptable limits. Laboratory evaluation obtained. CBC coag panel is unremarkable. Potassium 57 with hemolysis. Rest metabolic panel is unremarkable. Troponin is 0.014. Patient generally has a negative troponin and looking back at previous labs per chest x-ray is nonacute. Given patient's medical history and history of present illness of chest pain patient be admitted to observation for cardiac monitoring, serial troponins and cardiology consultation. Patient will be admitted to [facility] emergency department physician group. EKG interpretation: Ventricular rate 69, sinus rhythm, AR interval 186, QRS 92, QTc 416. No AR prolongation, no QTC prolongation, no ST or T-wave changes noted. EKG compared to 11/20/2021 showing no changes. Overall, this EKG is unremarkable - Related Data Home Medications Medication Instructions Recorded Confirmed Morphine Sulfate ER [Ms Contin] 30 mg PO Q8H 10/10/17 09/26/21 tiZANidine [Zanaflex] 4 mg PO TID 02/26/18 09/26/21 oxyCODONE-APAP 10-325MG [Percocet 1 tab PO Q8H 01/02/20 09/26/21 10-325 mg] Prasugrel [Effient] 10 mg PO DAILY 08/06/20 09/26/21 Acetaminophen Tab [Tylenol] 650 mg PO Q4H PRN 07/13/21 09/26/21 Nitroglycerin Sl Tabs [Nitrostat] 0.4 mg SL Q5M PRN 07/13/21 09/26/21 Pregabalin [Lyrica] 100 mg PO BID 09/11/21 09/26/21 Previous Rx's Medication Instructions Recorded Ezetimibe [Zetia] 10 mg PO DAILY #30 tab 05/24/19 Metoprolol Tartrate [Lopressor] 50 mg PO BID #60 tab 05/17/21 Atorvastatin [Lipitor] 80 mg PO HS 30 Days #30 tab 06/13/21 hydrALAZINE HCL [Apresoline] 50 mg PO TID 30 Days #90 tab 06/13/21 Aspirin 81 mg PO DAILY #30 tab 09/12/21 Allergies Allergy/AdvReac Type Severity Reaction Status Date / Time ibuprofen [From Motrin] Allergy Rash/Hives Verified 01/03/22 19:35 ketorolac tromethamine Allergy Rash/Hives Verified 01/03/22 19:35 [From Toradol] Review of Systems ROS Statement: Those systems with pertinent positive or pertinent negative responses have been documented in the HPI. ROS Other: All systems not noted in ROS Statement are negative. Past Medical History Past Medical History: Coronary Artery Disease (CAD), Chest Pain / Angina, COPD, Deep Vein Thrombosis (DVT), GERD/Reflux, Hyperlipidemia, Hypertension, Osteoarthritis (OA), Thyroid Disorder Additional Past Medical History / Comment(s): Occasional palpitations, gastritis, small hiatal hernia, diverticular dx, pt states years ago he had PUD, chronic low back pain, chronic pain syndrome, migraines, DVT L arm, nu mbness/tingling bilateral lower legs, bilateral past R hand fracture, arthritis multiple joints, hyperthyroid, sinus problems. History of Any Multi-Drug Resistant Organisms: None Reported Past Surgical History: Back Surgery, Cholecystectomy, Heart Catheterization With Stent, Orthopedic Surgery Additional Past Surgical History / Comment(s): EGDs/colonoscopies, multiple low back surgeries, bilateral arm and bilateral thigh surgeries for brown recluse spider bites with infection, morphine pain pump insertion and removal due to infection, PCI with stents, L rotator cuff repair, L knee arthroscopy, cervical fusion/cage, R cataract removal. 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 He lived to be 82 yrs old. Mother History Unknown: Yes Family Medical History: Hypertension, Myocardial Infarction ([place]) Additional Family Medical History / Comment(s): Mother of a [place] at the age of 55yrs. Brother(s) Family Medical History: Cancer, COPD Additional Family Medical History / Comment(s): Leukemia General Exam Limitations: no limitations Course Vital Signs 01/03/22 19:36 Temperature 98.2 F Pulse Rate 92 Respiratory 20 Rate Blood Pressure 153/86 O2 Sat by Pulse 98 Oximetry Medical Decision Making - Lab Data Result diagrams: 01/04/22 00:30 01/04/22 00:30 Lab Results 01/04/22 01/04/22 01/04/22 Range/Units 00:30 00:30 00:30 WBC 5.8 (3.8-10.6) k/uL RBC 4.44 (4.30-5.90) m/uL Hgb 13.0 (13.0-17.5) gm/dL Hct 41.8 (39.0-53.0) % MCV 94.2 (80.0-100.0) fL MCH 29.3 (25.0-35.0) pg MCHC 31.1 (31.0-37.0) g/dL RDW 15.1 (11.5-15.5) % Plt Count 275 (150-450) k/uL MPV 6.6 Neutrophils % 84 % Lymphocytes % 9 % Monocytes % 3 % Eosinophils % 2 % Basophils % 1 % Neutrophils # 4.9 (1.3-7.7) k/uL Lymphocytes # 0.5 L (1.0-4.8) k/uL Monocytes # 0.2 (0-1.0) k/uL Eosinophils # 0.1 (0-0.7) k/uL Basophils # 0.0 (0-0.2) k/uL Hypochromasia Slight PT 9.9 (9.0-12.0) sec INR 0.9 (<1.2) APTT 21.2 L (22.0-30.0) sec Sodium 138 (137-145) mmol/L Potassium 5.7 H (3.5-5.1) mmol/L Chloride 102 (98-107) mmol/L Carbon Dioxide 22 (22-30) mmol/L Anion Gap 14 mmol/L BUN 7 L (9-20) mg/dL Creatinine 0.59 L (0.66-1.25) mg/dL Est GFR (CKD-EPI)AfAm >90 (>60 ml/min/1.73 sqM) Est GFR (CKD-EPI)NonAf >90 (>60 ml/min/1.73 sqM) Glucose 117 H (74-99) mg/dL Calcium 9.6 (8.4-10.2) mg/dL Magnesium 2.0 (1.6-2.3) mg/dL Troponin I (0.000-0.034) ng/mL NT-Pro-B Natriuret Pep pg/mL 01/04/22 01/04/22 Range/Units 00:30 00:30 WBC (3.8-10.6) k/uL RBC (4.30-5.90) m/uL Hgb (13.0-17.5) gm/dL Hct (39.0-53.0) % MCV (80.0-100.0) fL MCH (25.0-35.0) pg MCHC (31.0-37.0) g/dL RDW (11.5-15.5) % Plt Count (150-450) k/uL MPV Neutrophils % % Lymphocytes % % Monocytes % % Eosinophils % % Basophils % % Neutrophils # (1.3-7.7) k/uL Lymphocytes # (1.0-4.8) k/uL Monocytes # (0-1.0) k/uL Eosinophils # (0-0.7) k/uL Basophils # (0-0.2) k/uL Hypochromasia PT (9.0-12.0) sec INR (<1.2) APTT (22.0-30.0) sec Sodium (137-145) mmol/L Potassium (3.5-5.1) mmol/L Chloride (98-107) mmol/L Carbon Dioxide (22-30) mmol/L Anion Gap mmol/L BUN (9-20) mg/dL Creatinine (0.66-1.25) mg/dL Est GFR (CKD-EPI)AfAm (>60 ml/min/1.73 sqM) Est GFR (CKD-EPI)NonAf (>60 ml/min/1.73 sqM) Glucose (74-99) mg/dL Calcium (8.4-10.2) mg/dL Magnesium (1.6-2.3) mg/dL Troponin I 0.014 (0.000-0.034) ng/mL NT-Pro-B Natriuret Pep 50 pg/mL Disposition Clinical Impression: Chest pain Disposition: ADMITTED IP TO THIS HOSP Condition: Fair Referrals: None,Stated [Primary Care Provider] - 1-2 days
[2022-01-04 00:48] LABS: Basophils % (A) 1 %; Eosinophils # (A) 0.1 k/uL (0-0.7); Eosinophils % (A) 2 %; HCT 41.8 % (39.0-53.0); Hypochromasia Slight; Lymphocytes # (A) 0.5 k/uL (1.0-4.8); Lymphocytes % (A) 9 %; MCH 29.3 pg (25.0-35.0); MCHC 31.1 g/dL (31.0-37.0); MCV 94.2 fL (80.0-100.0); Mean Platelet Volume 6.6; Monocytes # (A) 0.2 k/uL (0-1.0); Monocytes % (A) 3 %; Neutrophils # (A) 4.9 k/uL (1.3-7.7); Neutrophils % (A) 84 %; Platelet Count 275 k/uL (150-450); RBC 4.44 m/uL (4.30-5.90); RDW 15.1 % (11.5-15.5); WBC 5.8 k/uL (3.8-10.6)
[2022-01-04 01:07] LABS: INR 0.9 (<1.2); Partial Thromboplastin Time 21.2 sec (22.0-30.0); Prothrombin Time 9.9 sec (9.0-12.0)
[2022-01-04] MEDS ORDERED: MORPHINE SULFATE 4 MG/ML SYRINGE IV STA ×2 (01:14→04:39)
[2022-01-04 01:32] LABS: African American GFR (CKD) >90 (>60 ml/min/1.73 sqM); Anion Gap 14 mmol/L; Blood Urea Nitrogen 7 mg/dL (9-20); Calcium 9.6 mg/dL (8.4-10.2); Carbon Dioxide 22 mmol/L (22-30); Chloride 102 mmol/L (98-107); Glucose 117 mg/dL (74-99); Non-African American GFR(CKD) >90 (>60 ml/min/1.73 sqM); Sodium 138 mmol/L (137-145)
[2022-01-04 01:37] LABS: Potassium 5.7 mmol/L (3.5-5.1)
[2022-01-04] MEDS ORDERED: ASPIRIN 81 MG PO STA (02:23)
[2022-01-04] MEDS ORDERED: NITROGLYCERIN SL TABS 0.4 MG TAB SUBLINGUAL PRN (02:23)
--- NOTE | 2022-01-04 03:35 | P.HPIM ---
History of Present Illness H&P Date: 01/04/22 Patient is a 66-year-old male with extensive PMH including hypertension, hyperlipidemia, coronary artery disease status post stent, and chronic debility (ambulates with walker) who presents to the emergency room with complaints of chest discomfort and lower extremity edema. Patient reports that his symptoms started roughly 3 days ago with intermittent left-sided pressure and sharp chest discomfort, nonradiating, nonpleuritic, lasting for 15-20 minutes at a time, occurring 4-5 times daily, and nonexertional, with no alleviating or exacerbating features, 10 out of 10 on maximal intensity. Reports associated nausea, vomiting, lightheadedness, shortness of breath. He also reports developing lower extremity bilateral edema to his knees during this time but denied leg pains. Further denied cough, fever, chills, abdominal pain, diarrhea. EKG in the emergency room reveals sinus rhythm at 69 bpm with T-wave inversion in lead III but otherwise no ST/T-wave changes noted. Laboratory evaluation revealed a troponin of 0.014, proBNP 50. Chest x-ray was unremarkable. Review of systems: Pertinent positives and negatives as discussed in HPI, a complete review of systems was performed and all other systems are negative. Physical examination: General: non toxic, no distress, appears at stated age, normal weight Derm: no unusual rashes/lesions no unusual ecchymoses, warm, dry Head: atraumatic, normocephalic, symmetric Eyes: EOMI, no lid lag, anicteric sclera, pupils equal round reactive to light ENT: Nose and ears atraumatic, no thrush, no pharyngeal erythema Neck: No thyromegaly, no cervical lymphadenopathy, trachea midline, supple Mouth: no lip lesion, mucus membranes moist Cardiovascular: S1S2 reg, no murmur, positive posterior tibial pulse bilateral, 2+ bilateral lower extremity pitting edema to knees, no calf, capillary refill less than 2 seconds Lungs: CTA bilateral, no rhonchi, no rales , no accessory muscle use Abdominal: soft, nontender to palpation, no guarding, no appreciable organomegaly, normal bowel sounds Ext: no gross muscle atrophy, muscle strength 4 out of 5 in all 4 extremities grossly, no contractures, Neuro: CN II-XI grossly intact, light touch intact all 4 extremities, finger to nose within normal limits, Psych: Alert, oriented, appropriate affect Assessment/plan Chest pain, rule out ACS -Cardiology consult -Trend troponin -Cardiac monitoring -Continue with aspirin LE edema -Obtain Echocardiogram and LE duplex Chronic conditions: Hypertension, hyperlipidemia -Continue with home meds DVT prophylaxis -Heparin subq The patient is admitted with an anticipated less than 2 midnight stay for evaluation of chest pain CODE STATUS: Full Code Discussed with: Patient Anticipated discharge date: in am Anticipated discharge place: Home Past Medical History Past Medical History: Coronary Artery Disease (CAD), Chest Pain / Angina, COPD, Deep Vein Thrombosis (DVT), GERD/Reflux, Hyperlipidemia, Hypertension, Osteoarthritis (OA), Thyroid Disorder Additional Past Medical History / Comment(s): Occasional palpitations, gastritis, small hiatal hernia, diverticular dx, pt states years ago he had PUD, chronic low back pain, chronic pain syndrome, migraines, DVT L arm, numbness /tingling bilateral lower legs, bilateral past R hand fracture, arthritis multiple joints, hyperthyroid, sinus problems. History of Any Multi-Drug Resistant Organisms: None Reported Past Surgical History: Back Surgery, Cholecystectomy, Heart Catheterization With Stent, Orthopedic Surgery Additional Past Surgical History / Comment(s): EGDs/colonoscopies, multiple low back surgeries, bilateral arm and bilateral thigh surgeries for brown recluse spider bites with infection, morphine pain pump insertion and removal due to i nfection, PCI with stents, L rotator cuff repair, L knee arthroscopy, cervical fusion/cage, R cataract removal. 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 He lived to be 82 yrs old. Mother History Unknown: Yes Family Medical History: Hypertension, Myocardial Infarction ([place]) Additional Family Medical History / Comment(s): Mother of a [place] at the age of 55yrs. Brother(s) Family Medical History: Cancer, COPD Additional Family Medical History / Comment(s): Leukemia Medications and Allergies Home Medications Medication Instructions Recorded Confirmed Type Morphine Sulfate ER [Ms Contin] 30 mg PO Q8H 10/10/17 09/26/21 History tiZANidine [Zanaflex] 4 mg PO TID 02/26/18 09/26/21 History Ezetimibe [Zetia] 10 mg PO DAILY #30 tab 05/24/19 09/26/21 Rx oxyCODONE-APAP 10-325MG [Percocet 1 tab PO Q8H 01/02/20 09/26/21 History 10-325 mg] Prasugrel [Effient] 10 mg PO DAILY 08/06/20 09/26/21 History Metoprolol Tartrate [Lopressor] 50 mg PO BID #60 tab 05/17/21 09/26/21 Rx Atorvastatin [Lipitor] 80 mg PO HS 30 Days #30 tab 06/13/21 09/26/21 Rx hydrALAZINE HCL [Apresoline] 50 mg PO TID 30 Days #90 tab 06/13/21 09/26/21 Rx Acetaminophen Tab [Tylenol] 650 mg PO Q4H PRN 07/13/21 09/26/21 History Nitroglycerin Sl Tabs [Nitrostat] 0.4 mg SL Q5M PRN 07/13/21 09/26/21 History Pregabalin [Lyrica] 100 mg PO BID 09/11/21 09/26/21 History Aspirin 81 mg PO DAILY #30 tab 09/12/21 09/26/21 Rx Allergies Allergy/AdvReac Type Severity Reaction Status Date / Time ibuprofen [From Motrin] Allergy Rash/Hives Verified 01/03/22 19:35 ketorolac tromethamine Allergy Rash/Hives Verified 01/03/22 19:35 [From Toradol] Physical Exam Vitals: Vital Signs Temp Pulse Resp BP Pulse Ox 01/04/22 03:22 77 15 144/90 99 01/03/22 19:36 98.2 F 92 20 153/86 98 Intake and Output 01/03/22 01/03/22 01/04/22 14:59 22:59 06:59 Other: Weight 79.379 kg Results CBC & Chem 7: 01/04/22 00:30 01/04/22 00:30 Labs: Abnormal Lab Results - Last 24 Hours (Table) 01/04/22 01/04/22 01/04/22 Range/Units 00:30 00:30 00:30 Lymphocytes # 0.5 L (1.0-4.8) k/uL APTT 21.2 L (22.0-30.0) sec Potassium 5.7 H (3.5-5.1) mmol/L BUN 7 L (9-20) mg/dL Creatinine 0.59 L (0.66-1.25) mg/dL Glucose 117 H (74-99) mg/dL
--- NOTE | 2022-01-04 09:01 | US ---
EXAMINATION TYPE: US venous doppler duplex LE BI DATE OF EXAM: 01/04/2022 4:20 AM COMPARISON: US CLINICAL HISTORY: LE edema. Bilat feet swelling SIDE PERFORMED: Bilateral TECHNIQUE: The lower extremity deep venous system is examined utilizing real time linear array sonog soren with graded compression, doppler sonography and color-flow sonography. VESSELS IMAGED: Common Femoral Vein Deep Femoral Vein Greater Saphenous Vein * Femoral Vein Popliteal Vein Small Saphenous Vein * Proximal Calf Veins (* superficial vessels) Right Leg: Negative for DVT Left Leg: Negative for DVT Grayscale, color doppler, spectral doppler imaging performed of the deep veins of the lower extremiti es. There is normal flow, compressibility, vascular waveforms. IMPRESSION: No evidence of deep vein thrombosis of either lower extremity.
--- NOTE | 2022-01-04 09:43 | P.CRDCN ---
History of Present Illness History of present illness: HISTORY OF PRESENTING ILLNESS This is a pleasant 65-year-old male past medical history significant for coronary artery disease s/p PCI of the LAD 2017, DVT, COPD, hypertension, dyslipidemia and chronic pain. He follows in the office with Dr. Go. Patient states that her last 2 days he has been having episodes of chest pressure not associated with any exertion and additional mild shortness of breath with some lower extremity swelling. He denies anything similar in the past. He states that the chest pressure feels somewhat similar to prior to his stents however not exactly. He denies any diaphoresis. He states is not associated with any exertion. He had workup with troponin normal 2 as well as a lower extremity ultrasound which was negative for DVT and a normal proBNP. In April 2021 he underwent a Lexiscan stress test that was negative for reversible cardiac ischemia. June 2021 had an echocardiogram revealing preserved LV systolic function with ejection fraction 55-60%. Most recent cardiac catheterization performed in 2018 revealed patent stents in the previously stented LAD, left main free of significant disease, RCA free of significant disease and circumflex free of significant disease. REVIEW OF SYSTEMS At the time of my exam: CONSTITUTIONAL: Denies fever or chills. CARDIOVASCULAR: +chest pain, +shortness of breath, no orthopnea, PND or palpitations. + Edema RESPIRATORY: Denies cough. GASTROINTESTINAL: Denies abdominal pain, diarrhea, constipation, nausea or vomiting. MUSCULOSKELETAL: Denies myalgias. NEUROLOGIC: Denies numbness, tingling or weakness. ENDOCRINE: Denies fatigue, weight change, polydipsia or polyurina. GENITOURINARY: Denies burning, hematuria or urgency with micturation. HEMATOLOGIC: Denies history of anemia or bleeding. PHYSICAL EXAMINATION Vital signs reviewed. CONSTITUTIONAL: No apparent distress. HEENT: Head is normocephalic. Pupils are equal, round. Sclerae anicteric. Mucous membranes of the mouth are moist. No JVD. No carotid bruit. CHEST EXAMINATION: Lungs are clear to auscultation. No chest wall tenderness is noted on palpation or with deep breathing. HEART EXAMINATION: Regular rate and rhythm. S1, S2 heard. No murmurs, gallops or rub. ABDOMEN: Soft, nontender. Positive bowel sounds. EXTREMITIES: 2+ peripheral pulses, +2+ lower extremity edema and no calf tenderness. NEUROLOGIC EXAMINATION: Patient is awake, alert and oriented x3. ASSESSMENT 1. Precordial chest pain, acute coronary syndrome ruled out 2. Shortness breath, does not appear related to heart failure with normal proBNP 3. Lower extremity edema, new in the last 3 days per patient. May be related to venous insufficiency versus other renal disorder such as nephrotic syndrome versus more proximal occlusion. Reports from a ultrasound negative for DVT 4. Coronary artery disease with history of prior PCI 5. Hypertension 6. Hyperlipidemia 7. History of DVT PLAN Chest pain overall is fairly atypical and prior stress test April 2021 with no inducible ischemia. He is however having increased lower extremity edema with chest pain and shortness breath and therefore consideration of thromboembolism. We will check d-dimer and if abnormal we will check a CT PE protocol as there is a consideration of more proximal venous disease. Otherwise check 2-D echo and if unrevealing patient would be cleared for discharge home from a cardiology standpoint. Recommend trial of diuretics and compression stockings. Past Medical History Past Medical History: Coronary Artery Disease (CAD), Chest Pain / Angina, COPD, Deep Vein Thrombosis (DVT), GERD/Reflux, Hyperlipidemia, Hypertension, Osteoarth ritis (OA), Thyroid Disorder Additional Past Medical History / Comment(s): Occasional palpitations, gastritis, small hiatal hernia, diverticular dx, pt states years ago he had PUD, chronic low back pain, chronic pain syndrome, migraines, DVT L arm, numbness/tingling bilateral lower legs, bilateral past R hand fracture, arthritis multiple joints, hyperthyroid, sinus problems. History of Any Multi-Drug Resistant Organisms: None Reported Past Surgical History: Back Surgery, Cholecystectomy, Heart Catheterization With Stent, Orthopedic Surgery Additional Past Surgical History / Comment(s): EGDs/colonoscopies, multiple low back surgeries, bilateral arm and bilateral thigh surgeries for brown recluse spider bites with infection, morphine pain pump insertion and removal due to infection, PCI with stents, L rotator cuff repair, L knee arthroscopy, cervical fusion/cage, R cataract removal. 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 He lived to be 82 yrs old. Mother History Unknown: Yes Family Medical History: Hypertension, Myocardial Infarction ([place]) Additional Family Medical History / Comment(s): Mother of a [place] at the age of 55yrs. Brother(s) Family Medical History: Cancer, COPD Additional Family Medical History / Comment(s): Leukemia Medications and Allergies Home Medications Medication Instructions Recorded Confirmed Type Morphine Sulfate ER [Ms Contin] 30 mg PO Q8H 10/10/17 09/26/21 History tiZANidine [Zanaflex] 4 mg PO TID 02/26/18 09/26/21 History Ezetimibe [Zetia] 10 mg PO DAILY #30 tab 05/24/19 09/26/21 Rx oxyCODONE-APAP 10-325MG [Percocet 1 tab PO Q8H 01/02/20 09/26/21 History 10-325 mg] Prasugrel [Effient] 10 mg PO DAILY 08/06/20 09/26/21 History Metoprolol Tartrate [Lopressor] 50 mg PO BID #60 tab 05/17/21 09/26/21 Rx Atorvastatin [Lipitor] 80 mg PO HS 30 Days #30 tab 06/13/21 09/26/21 Rx hydrALAZINE HCL [Apresoline] 50 mg PO TID 30 Days #90 tab 06/13/21 09/26/21 Rx Acetaminophen Tab [Tylenol] 650 mg PO Q4H PRN 07/13/21 09/26/21 History Nitroglycerin Sl Tabs [Nitrostat] 0.4 mg SL Q5M PRN 07/13/21 09/26/21 History Pregabalin [Lyrica] 100 mg PO BID 09/11/21 09/26/21 History Aspirin 81 mg PO DAILY #30 tab 09/12/21 09/26/21 Rx Allergies Allergy/AdvReac Type Severity Reaction Status Date / Time ibuprofen [From Motrin] Allergy Rash/Hives Verified 01/03/22 19:35 ketorolac tromethamine Allergy Rash/Hives Verified 01/03/22 19:35 [From Toradol] Physical Exam Vitals: Vital Signs Temp Pulse Pulse Resp BP BP Pulse Ox 01/04/22 08:00 97.3 F L 71 16 123/86 98 01/04/22 06:45 97.2 F L 77 15 111/85 99 01/04/22 03:22 77 15 144/90 99 01/03/22 19:36 98.2 F 92 20 153/86 98 Intake and Output 01/03/22 01/04/22 01/04/22 22:59 06:59 14:59 Other: Weight 79.379 kg Results 01/04/22 00:30 01/04/22 00:30 Cardiac Enzymes 01/04/22 01/04/22 Range/Units 00:30 04:30 Troponin I 0.014 <0.012 (0.000-0.034) ng/mL Coagulation 01/04/22 Range/Units 00:30 PT 9.9 (9.0-12.0) sec APTT 21.2 L (22.0-30.0) sec CBC 01/04/22 Range/Units 00:30 WBC 5.8 (3.8-10.6) k/uL RBC 4.44 (4.30-5.90) m/uL Hgb 13.0 (13.0-17.5) gm/dL Hct 41.8 (39.0-53.0) % Plt Count 275 (150-450) k/uL Comprehensive Metabolic Panel 01/04/22 Range/Units 00:30 Sodium 138 (137-145) mmol/L Potassium 5.7 H (3.5-5.1) mmol/L Chloride 102 (98-107) mmol/L Carbon Dioxide 22 (22-30) mmol/L BUN 7 L (9-20) mg/dL Creatinine 0.59 L (0.66-1.25) mg/dL Glucose 117 H (74-99) mg/dL Calcium 9.6 (8.4-10.2) mg/dL Current Medications Generic Name Dose Route Start Last Admin Trade Name Freq PRN Reason Stop Dose Admin Aspirin 325 mg 01/05/22 09:00 Aspirin 325 Mg Tab PO DAILY [facility] Heparin Sodium (Porcine) 5,000 unit 01/04/22 08:00 Heparin Sodium,Porcine/Pf 5,000 Unit/0.5 Ml Syringe SQ Q8HR [facility] Nitroglycerin 0.4 mg 01/04/22 02:23 Nitroglycerin Sl Tabs 0.4 Mg Tab SUBLINGUAL Q5M PRN Chest Pain Intake and Output 01/03/22 01/04/22 01/04/22 22:59 06:59 14:59 Other: Weight 79.379 kg 01/04/22 00:30 01/04/22 00:30
[2022-01-04] MEDS ORDERED: SUMAtriptan succinate 25 MG TAB PO PRN (11:50)
[2022-01-04] MEDS: FUROSEMIDE 20 MG TAB PO SCH (11:51)
[2022-01-04] MEDS: HEPARIN SODIUM,PORCINE/PF 5,000 UNIT/0.5 ML SYRINGE SQ SCH ×2 (11:51→17:38)
[2022-01-04] MEDS: oxyCODONE-APAP 10-325MG 1 EACH TAB PO SCH ×2 (12:43→20:07)
[2022-01-04] MEDS: hydrALAZINE HCL 50 MG TAB PO SCH ×2 (13:43→17:38)
[2022-01-04] MEDS: MORPHINE SULFATE ER 30 MG TABLET PO SCH (15:54)
[2022-01-04] MEDS: tiZANidine 4 MG TAB PO PRN (15:55)
[2022-01-04] MEDS: PREGABALIN 100 MG CAP PO SCH (20:08)
[2022-01-04] MEDS: amLODIPine 5 MG TAB PO SCH (20:08)
[2022-01-04] MEDS: METOPROLOL TARTRATE 50 MG TAB PO SCH (20:08)
[2022-01-04] MEDS: ATORVASTATIN 80 MG TAB PO SCH (20:08)
[2022-01-05] MEDS: MORPHINE SULFATE ER 30 MG TABLET PO SCH ×3 (00:09→17:40)
[2022-01-05] MEDS: HEPARIN SODIUM,PORCINE/PF 5,000 UNIT/0.5 ML SYRINGE SQ SCH ×3 (00:10→17:40)
[2022-01-05] MEDS: oxyCODONE-APAP 10-325MG 1 EACH TAB PO SCH ×3 (04:22→20:08)
[2022-01-05 08:29] VITALS: RESP 16
[2022-01-05] MEDS: tiZANidine 4 MG TAB PO PRN ×2 (08:32→20:10)
[2022-01-05] MEDS: FUROSEMIDE 20 MG TAB PO SCH (08:32)
[2022-01-05] MEDS: hydrALAZINE HCL 50 MG TAB PO SCH ×3 (08:32→20:08)
[2022-01-05] MEDS: PREGABALIN 100 MG CAP PO SCH ×2 (08:32→20:09)
[2022-01-05] MEDS: METOPROLOL TARTRATE 50 MG TAB PO SCH ×2 (08:32→20:09)
[2022-01-05] MEDS: lisinopriL 20 MG TAB PO SCH (08:32)
[2022-01-05] MEDS: amLODIPine 5 MG TAB PO SCH ×2 (08:33→20:09)
[2022-01-05] MEDS: CLOPIDOGREL 75 MG TAB PO SCH (08:33)
[2022-01-05] MEDS: ASPIRIN 325 MG TAB PO SCH (08:34)
--- NOTE | 2022-01-05 08:38 | ECHOF ---
Referral Reason:LE edema MEASUREMENTS -------- HEIGHT: 180.3 cm WEIGHT: 79.4 kg BP: 111/85 RVIDd: 3.6 cm (< 3.3) IVSd: 1.4 cm (0.6 - 1.1) LVIDd: 4.0 cm (3.9 - 5.3) LVPWd: 1.4 cm (0.6 - 1.1) IVSs: 2.1 cm LVIDs: 2.3 cm LVPWs: 1.7 cm LA Diam: 3.2 cm (2.7 - 3.8) LAESV Index (A-L): 41.61 ml/m Ao Diam: 3.7 cm (2.0 - 3.7) AV Cusp: 2.4 cm (1.5 - 2.6) MV EXCURSION: 9.024 mm (> 18.000) MV EF SLOPE: 27 mm/s (70 - 150) EPSS: 1.1 cm MV E Héctor: 0.98 m/s MV DecT: 246 ms MV A Héctor: 0.82 m/s MV E/A Ratio: 1.20 AV maxP.50 mmHg AV meanP.02 mmHg RAP: 5.00 mmHg RVSP: 23.43 mmHg FINDINGS -------- Sinus rhythm. This was a technically adequate study. The left ventricular size is normal. There is moderate concentric left ventricular hypertrophy. O verall left ventricular systolic function is normal with, an EF between 60 - 65 %. The right ventricle is mildly enlarged. LA is severely dilated >40 ml/m2 The right atrium is normal in size. Interatrial and interventricular septum intact. The aortic valve is bicuspid. There is mild aortic valve sclerosis. Trace amount of aortic regurg itation. There is mild aortic stenosis present. Peak/mean gradient across the Aortic Valve is 15 .50mmHg / 7.02mmHg. The mitral valve is normal. Mild tricuspid regurgitation present. Right ventricular systolic pressure is normal at < 35 mmHg. Trace/mild (physiologic) pulmonic regurgitation. The aortic root size is normal. Normal inferior vena cava with normal inspiratory collapse consistent with estimated right atrial pre ssure of 5 mmHg. There is no pericardial effusion. CONCLUSIONS -------- 1. The left ventricular size is normal. 2. There is moderate concentric left ventricular hypertrophy. 3. Overall left ventricular systolic function is normal with, an EF between 60 - 65 %. 4. The right ventricle is mildly enlarged. 5. LA is severely dilated >40 ml/m2 6. The aortic valve is bicuspid. 7. There is mild aortic valve sclerosis. 8. Trace amount of aortic regurgitation. 9. There is mild aortic stenosis present. 10. Peak/mean gradient across the Aortic Valve is 15.50mmHg / 7.02mmHg. 11. Mild tricuspid regurgitation present. 12. Trace/mild (physiologic) pulmonic regurgitation. 13. There is no pericardial effusion. TRANSIT BUS OPERATOR: Brittney Brunson RDCS
--- NOTE | 2022-01-05 09:01 | P.PN ---
Subjective This is a pleasant 65-year-old male past medical history significant for coronary artery disease s/p PCI of the LAD 2017, DVT, COPD, hypertension, d yslipidemia and chronic pain. He follows in the office with Dr. Go. Patient states that her last 2 days he has been having episodes of chest pressure not associated with any exertion and additional mild shortness of breath with some lower extremity swelling. He denies anything similar in the past. He states that the chest pressure feels somewhat similar to prior to his stents however not exactly. He denies any diaphoresis. He states is not associated with any exertion. He had workup with troponin normal 2 as well as a lower extremity ultrasound which was negative for DVT and a normal proBNP. In April 2021 he underwent a Lexiscan stress test that was negative for reversible cardiac ischemia. June 2021 had an echocardiogram revealing preserved LV systolic function with ejection fraction 55-60%. Most recent cardiac catheterization performed in 2018 revealed patent stents in the previously stented LAD, left main free of significant disease, RCA free of significant disease and circumflex free of significant disease. 01/05 Patient seen and examined. Patient had brief episode of chest pain again this morning not associated with anything. No associated shortness breath or di aphoresis. It has since resolved. D-dimer was noted to be elevated PHYSICAL EXAMINATION Vital signs reviewed. CONSTITUTIONAL: No apparent distress. HEENT: Head is normocephalic. Pupils are equal, round. Sclerae anicteric. Mucous membranes of the mouth are moist. No JVD. No carotid bruit. CHEST EXAMINATION: Lungs are clear to auscultation. No chest wall tenderness is noted on palpation or with deep breathing. HEART EXAMINATION: Regular rate and rhythm. S1, S2 heard. No murmurs, gallops or rub. ABDOMEN: Soft, nontender. Positive bowel sounds. EXTREMITIES: 2+ peripheral pulses, +2+ lower extremity edema and no calf tenderness. NEUROLOGIC EXAMINATION: Patient is awake, alert and oriented x3. ASSESSMENT 1. Precordial chest pain, acute coronary syndrome ruled out 2. Shortness breath, does not appear related to heart failure with normal proBNP 3. Lower extremity edema, new in the last 3 days per patient. May be related to venous insufficiency versus other renal disorder such as nephrotic syndrome versus more proximal occlusion. Reports from a ultrasound negative for DVT 4. Coronary artery disease with history of prior PCI 5. Hypertension 6. Hyperlipidemia 7. History of DVT 8. Elevated d-dimer. PLAN Chest pain overall is fairly atypical and prior stress test April 2021 with no inducible ischemia. Check a CT PE protocol as there is a consideration of more proximal venous disease with LE swelling. 2-D echo shows normal left ventricular function without significant valvular disease. If CTP protocol is normal, patient may be discharged home from a cardiology standpoint. Objective - Vital Signs Vital signs: Vital Signs Temp 97.8 F 01/05/22 07:00 Pulse 69 01/05/22 07:00 Resp 16 01/05/22 07:00 BP 115/70 01/05/22 07:00 Pulse Ox 99 01/05/22 07:00 Intake & Output 01/04/22 01/05/22 01/05/22 18:59 06:59 18:59 Weight 79.379 kg Other: Voiding Method Toilet # Voids 4 2 - Labs CBC & Chem 7: 01/04/22 00:30 01/04/22 00:30 Labs: Abnormal Lab Results - Last 24 Hours (Table) 01/04/22 Range/Units 09:45 D-Dimer 0.63 H (<0.60) mg/L FEU
--- NOTE | 2022-01-05 11:00 | CT ---
CT CHEST FOR PULMONARY EMBOLISM. EXAMINATION TYPE: CT chest angio for PE DATE OF EXAM: 01/05/2022 INDICATION: Chest pain CT DLP: 263.9 mGycm, Automated exposure control for dose reduction was used. CONTRAST: Patient injected with 85 mL of Isovue 370. COMPARISON: 03/11/2020 TECHNIQUE: CT of the chest is performed on a spiral scan at 2 mm thick sections. Study is performed with intravenous contrast timed for evaluation for pulmonary embolism. This will limit additional po rtions of the evaluation. 3-D MIP images reconstructed by the technologist are reviewed on the compu ter in the coronal and sagittal planes. Contrast timing is suboptimal. This may prevent visualization of smaller peripheral pulmonary emboli. FINDINGS: No persistent filling defects are evident to suggest an acute central pulmonary embolism. No mediastinal or hilar adenopathy enlarged by CT criteria is evident. The ascending aorta diameter at the level of the main pulmonary artery is 3.4 cm. The main pulmonary artery diameter at the bifur cation is 3.1 cm. Very minimal right pleural effusion may be present. Lung mina otherwise appear clear. Limited CT section through the upper abdomen are unremarkable. IMPRESSIONS: 1. No acute pulmonary embolism. Contrast is somewhat limiting and smaller peripheral pulmonary emboli may not be visualized. 2. Minimal right pleural effusion
[2022-01-05 12:16] LABS: Chol/HDL Ratio 4.18 Ratio; LDL Cholesterol,Calculated 123.2 mg/dL (0.0-131.0)
[2022-01-05] MEDS ORDERED: ALBUTEROL NEB (CONC) 2.5 MG/0.5 ML INHALATION ONE (15:44)
[2022-01-05] MEDS ORDERED: INSULIN REGULAR 100 UNIT/ML VIAL (IV) IV ONE (15:44)
--- NOTE | 2022-01-05 15:51 | P.PN ---
Subjective Patient was examined at bedside today not complaining of any active chest pain, shortness of breath or palpitations. Objective - Vital Signs Vital signs: Vital Signs Temp 97.4 F L 01/05/22 15:00 Pulse 75 01/05/22 15:00 Resp 16 01/05/22 15:00 BP 135/80 01/05/22 15:00 Pulse Ox 99 01/05/22 15:00 Intake & Output 01/04/22 01/05/22 01/05/22 18:59 06:59 18:59 Intake Total 720 Balance 720 Weight 79.379 kg Intake: Oral 720 Other: Voiding Method Toilet Toilet # Voids 4 2 3 - Exam General: non toxic, no distress, appears at stated age, normal weight Derm: no unusual rashes/lesions no unusual ecchymoses, warm, dry Head: atraumatic, normocephalic, symmetric Eyes: EOMI, no lid lag, anicteric sclera, pupils equal round reactive to light ENT: Nose and ears atraumatic, no thrush, no pharyngeal erythema Neck: No thyromegaly, no cervical lymphadenopathy, trachea midline, supple Mouth: no lip lesion, mucus membranes moist Cardiovascular: S1S2 reg, no murmur, positive posterior tibial pulse bilateral, 2+ bilateral lower extremity pitting edema to knees, no calf, capillary refill less than 2 seconds Lungs: CTA bilateral, no rhonchi, no rales , no accessory muscle use Abdominal: soft, nontender to palpation, no guarding, no appreciable organomegaly, normal bowel sounds Ext: no gross muscle atrophy, muscle strength 4 out of 5 in all 4 extremities grossly, no contractures, Neuro: CN II-XI grossly intact, light touch intact all 4 extremities, finger to nose within normal limits, Psych: Alert, oriented, appropriate affect - Labs CBC & Chem 7: 01/04/22 00:30 01/05/22 14:44 Labs: Abnormal Lab Results - Last 24 Hours (Table) 01/04/22 01/05/22 Range/Units 00:30 14:44 Potassium 6.0 H (3.5-5.1) mmol/L Triglycerides 232.00 H (0.00-149.00) mg/dL Cholesterol 223.00 H (0.00-200.00) mg/dL VLDL Cholesterol, Calc 46.40 H (5.00-40.00) mg/dL Assessment and Plan Plan: Assessment/plan: Chest pain, rule out ACS -Cardiology consult -Trend troponin -Cardiac monitoring -Continue with aspirin -CTA was ordered by cardiology LALY for PE. LE edema -Obtain Echocardiogram and LE duplex negative Hyperkalemia -Repeat potassium 6.0 -We'll obtain EKG and administer IV insulin and glucose repeat potassium at 10 PM today Chronic conditions: Hypertension, hyperlipidemia -Continue with home meds DVT prophylaxis -Heparin subq The patient is admitted with an anticipated less than 2 midnight stay for evaluation of chest pain CODE STATUS: Full Code
[2022-01-05] MEDS: ATORVASTATIN 80 MG TAB PO SCH (20:09)
[2022-01-06] MEDS: DEXTROSE 50% SYRINGE 50 ML IVP ONE ×2 (00:29→01:39)
[2022-01-06] MEDS: HEPARIN SODIUM,PORCINE/PF 5,000 UNIT/0.5 ML SYRINGE SQ SCH ×2 (00:30→09:56)
[2022-01-06] MEDS: MORPHINE SULFATE ER 30 MG TABLET PO SCH ×2 (00:30→09:54)
[2022-01-06] MEDS ORDERED: DEXTROSE 50% SYRINGE 50 ML IVP ONE (01:36)
[2022-01-06 01:39] LABS: Glucose,Whole Blood 39 mg/dL (75-99)
[2022-01-06 01:39] LABS: Glucose,Whole Blood 42 mg/dL (75-99)
[2022-01-06 01:54] LABS: Glucose,Whole Blood 158 mg/dL (75-99)
[2022-01-06] MEDS: oxyCODONE-APAP 10-325MG 1 EACH TAB PO SCH (04:06)
[2022-01-06 08:33] VITALS: BP 171/92; PULSE 72; TEMP 97.6
[2022-01-06] MEDS: CLOPIDOGREL 75 MG TAB PO SCH (09:55)
[2022-01-06] MEDS: amLODIPine 5 MG TAB PO SCH (09:55)
[2022-01-06] MEDS: ASPIRIN 325 MG TAB PO SCH (09:55)
[2022-01-06] MEDS: hydrALAZINE HCL 50 MG TAB PO SCH (09:56)
[2022-01-06] MEDS: FUROSEMIDE 20 MG TAB PO SCH (09:57)
[2022-01-06] MEDS: PREGABALIN 100 MG CAP PO SCH (09:57)
[2022-01-06] MEDS ORDERED: METOPROLOL TARTRATE 50 MG TAB PO SCH ×2 (10:00→21:00)
--- NOTE | 2022-01-06 10:08 | P.PN ---
Subjective Progress Note Date: 01/06/22 HISTORY OF PRESENT ILLNESS: This is a pleasant 65-year-old male past medical history significant for coronary artery disease s/p PCI of the LAD 2017, DVT, COPD, hypertension, dyslip idemia and chronic pain. He follows in the office with Dr. Go. Patient states that her last 2 days he has been having episodes of chest pressure not associated with any exertion and additional mild shortness of breath with some lower extremity swelling. He denies anything similar in the past. He states that the chest pressure feels somewhat similar to prior to his stents however not exactly. He denies any diaphoresis. He states is not associated with any exertion. He had workup with troponin normal 2 as well as a lower extremity ultrasound which was negative for DVT and a normal proBNP. In April 2021 he underwent a Lexiscan stress test that was negative for reversible cardiac ischemia. June 2021 had an echocardiogram revealing preserved LV systolic function with ejection fraction 55-60%. Most recent cardiac catheterization performed in 2018 revealed patent stents in the prev iously stented LAD, left main free of significant disease, RCA free of significant disease and circumflex free of significant disease. 01/05 Patient seen and examined. Patient had brief episode of chest pain again this morning not associated with anything. No associated shortness breath or diaphor esis. It has since resolved. D-dimer was noted to be elevated 01/06/2022 Patient examined this morning at the bedside. Patient states he feels "so-so". He denies any chest pain this morning. He reports mild SOB. He reports he is having nausea this morning. No vomiting. CTA chest negative for PE. PHYSICAL EXAM: VITAL SIGNS: Reviewed. GENERAL: Well-developed in no acute distress. NECK: Supple. No JVD or thyromegaly LUNGS: Respirations even and unlabored. Lungs essentially clear to auscultation bilaterally. HEART: Regular rate and rhythm. S1 and S2 heard. EXTREMITIES: Normal range of motion. No clubbing or cyanosis. Peripheral pulses intact. 1+ bilateral lower extremity edema ASSESSMENT: 1. Precordial chest pain, acute coronary syndrome ruled out 2. Shortness breath, does not appear related to heart failure with normal [facility] [facility] 3. Lower extremity edema, new in the last 3 days per patient. May be related to venous insufficiency versus other renal disorder such as nephrotic syndrome versus more proximal occlusion. Reports from a ultrasound negative for DVT 4. Coronary artery disease with history of prior PCI 5. Hypertension 6. Hyperlipidemia 7. History of DVT 8. Elevated d-dimer, CTA negative for PE PLAN: Continue current cardiac medications No further inpatient recommendations from a cardiac standpoint We will sign off. Please reconsult if needed. Patient to follow up outpatient with Dr. Go Nurse practitioner note has been reviewed by physician. Signing provider agrees with the documented findings, assessment, and plan of care. Objective - Vital Signs Vital signs: Vital Signs Temp 97.6 F 01/06/22 07:10 Pulse 72 01/06/22 07:10 Resp 16 01/06/22 07:10 BP 171/92 01/06/22 07:10 Pulse Ox 98 01/06/22 07:10 Intake & Output 01/05/22 01/06/22 01/06/22 18:59 06:59 18:59 Intake Total 838 Balance 838 Intake: Oral 838 Other: Voiding Method Toilet Toilet # Voids 3 2 - Labs CBC & Chem 7: 01/04/22 00:30 01/06/22 04:56 Labs: Abnormal Lab Results - Last 24 Hours (Table) 01/04/22 01/05/22 01/06/22 Range/Units 00:30 14:44 01:35 Potassium 6.0 H (3.5-5.1) mmol/L POC Glucose (mg/dL) 42 L (75-99) mg/dL Triglycerides 232.00 H (0.00-149.00) mg/dL Cholesterol 223.00 H (0.00-200.00) mg/dL VLDL Cholesterol, Calc 46.40 H (5.00-40.00) mg/dL 01/06/22 01/06/22 Range/Units 01:37 01:52 Potassium (3.5-5.1) mmol/L POC Glucose (mg/dL) 39 L 158 H (75-99) mg/dL Triglycerides (0.00-149.00) mg/dL Cholesterol (0.00-200.00) mg/dL VLDL Cholesterol, Calc (5.00-40.00) mg/dL
[2022-01-06] MEDS: lisinopriL 20 MG TAB PO SCH (10:42)
[2022-01-06] MEDS: METOPROLOL TARTRATE 50 MG TAB PO SCH (10:42)
--- NOTE | 2022-01-06 11:08 | P.DS ---
<Zaki oPlk - Last Filed: 01/06/22 17:24> Providers Expected date of discharge: 01/06/22 Hospital Course: Discharge Diagnosis: Chest pain, acute coronary event ruled out Bilateral lower extremity edema, improved, continue Lasix 20 mg daily and follow -up with BMP and magnesium levels in 3 days post discharge Elevated d-dimer, CTA negative for pulmonary embolism and bilateral lower extremity Dopplers negative for DVT Hypertension, lisinopril discontinued secondary to hyperkalemia and metoprolol dose increased. Hyperlipidemia, continue atorvastatin 80 mg nightly. Hypertriglyceridemia, prescribed fenofibrate 50 mg daily. Hyperkalemia, resolved, lisinopril discontinued Hospital Course: Patient is a very pleasant 66-year-old male with a past medical history of CAD with stents on Plavix, hypertension, hyperlipidemia, chronic debility resulting in ambulation with a walker, neuropathy, and chronic pain. He presented to the hospital on 01/03/22 with a chief complaint of chest pain and lower extremity swelling. He underwent cardiac workup. Troponins trended 0.014, < 0.012, and < 0.012. He was found to have hyperkalemia with potassium of 6.0 resulting in hyperkalemia cocktail administration. Hyperkalemia resolved 4.6. Patient was found to have an elevated d-dimer and underwent a CTA of his chest which was negative for pulmonary embolism. Bilateral lower extremity Dopplers also comple leah negative for DVT. Echocardiogram was completed revealing an EF between 60 and 65%. Cardiology clearing patient of acute coronary event and recommending patient to follow up outpatient with Dr. Go. Patient was taking lisinopril and this was discontinued at this time secondary to episode of hyperkalemia and metoprolol increased for control of hypertension. Patient being discharged at this time and to follow up with PCP and cardiology as recommended. Patient to have repeat labs BMP and magnesium to monitor renal function and electrolytes as he was started on oral Lasix this hospitalization. Physical examination: Patient seen and examined at bedside. He was resting comfortably and appeared to be doing well. Patient updated on plan for discharge and all questions answered at this time. Patient denied having any current complaints or concerns. Vital signs reviewed and stable. General: Nontoxic, no distress and appears stated age. Derm: Skin warm and dry, normal coloration for ethnicity. Head: Atraumatic, normocephalic and symmetric. Eyes: EOMs intact, no lid lag, and anicteric sclera Mouth: no lip lesions, mucus membranes moist Cardiovascular: regular rate and rhythm with normal S1S2, no murmur, positive posterior tibial pulses bilaterally, and cap refill < 2 seconds. Lungs: Respirations even, regular, and unlabored on room air. Lungs CTA bilaterally, no rhonchi, no rales, no wheezing, and no accessory muscle usage. Abdominal: soft, nontender to palpation, no guarding, no appreciable organomegaly Ext: ROM intact. No gross muscle atrophy, no edema, no contractures Neuro: Speech clear, face symmetrical and CN II-XII grossly intact with no noted focal neuro deficits Psych: Alert and oriented to person, place, time, and situation. Appropriate and pleasant affect. A total of 45 minutes of time were spent preparing this complex discharge summary. Patient Condition at Discharge: Stable Plan - Discharge Summary New Discharge Prescriptions: New Furosemide [Lasix] 20 mg PO DAILY 30 Days #30 tab Metoprolol Succinate [Toprol XL] 150 mg PO DAILY 30 Days #45 tab Fenofibrate 50 mg PO DAILY #30 capsule Continue Morphine Sulfate ER [Ms Contin] 30 mg PO Q8H tiZANidine [Zanaflex] 4 mg PO Q8H PRN PRN Reason: Muscle Spasm oxyCODONE-APAP 10-325MG [Percocet 10-325 mg] 1 tab PO Q8H Atorvastatin [Lipitor] 80 mg PO HS 30 Days #30 tab Nitroglycerin Sl Tabs [Nitrostat] 0.4 mg SL Q5M PRN PRN Reason: Chest Pain amLODIPine [Norvasc] 5 mg PO BID Clopidogrel [Plavix] 75 mg PO DAILY SUMAtriptan succinate [Imitrex] 25 mg PO DAILY PRN PRN Reason: Migraine Headache Pregabalin [Lyrica] 100 mg PO BID hydrALAZINE HCL [Apresoline] 50 mg PO TID-W/MEALS Discontinued Metoprolol Tartrate [Lopressor] 50 mg PO BID #60 tab lisinopriL 40 mg PO DAILY Discharge Medication List Morphine Sulfate ER [Ms Contin] 30 mg PO Q8H 10/10/17 [History] tiZANidine [Zanaflex] 4 mg PO Q8H PRN 02/26/18 [History] oxyCODONE-APAP 10-325MG [Percocet 10-325 mg] 1 tab PO Q8H 01/02/20 [History] Atorvastatin [Lipitor] 80 mg PO HS 30 Days #30 tab 06/13/21 [Rx] Nitroglycerin Sl Tabs [Nitrostat] 0.4 mg SL Q5M PRN 07/13/21 [History] Pregabalin [Lyrica] 100 mg PO BID 09/11/21 [History] Clopidogrel [Plavix] 75 mg PO DAILY 01/04/22 [History] SUMAtriptan succinate [Imitrex] 25 mg PO DAILY PRN 01/04/22 [History] amLODIPine [Norvasc] 5 mg PO BID 01/04/22 [History] hydrALAZINE HCL [Apresoline] 50 mg PO TID-W/MEALS 01/04/22 [History] Fenofibrate 50 mg PO DAILY #30 capsule 01/06/22 [Rx] Furosemide [Lasix] 20 mg PO DAILY 30 Days #30 tab 01/06/22 [Rx] Metoprolol Succinate [Toprol XL] 150 mg PO DAILY 30 Days #45 tab 01/06/22 [Rx] Follow up Appointment(s)/Referral(s): Fannie Go MD [STAFF PHYSICIAN] - 01/20/22 1:45 pm Brian Mina [STAFF PHYSICIAN] - 1 Week Ambulatory/Diagnostic Orders: Basic Metabolic Panel [LAB.AMB] Time Frame: 3 Days, Location: None Selected Magnesium [LAB.AMB] Location: None Selected Activity/Diet/Wound Care/Special Instructions: Activity: As tolerated. Take breaks as needed. Diet: Heart healthy and carb consistent diet. Avoid salts, or foods with hidden salts such as canned or boxed foods and frozen dinners. Extra salt makes your heart work harder and traps the fluid in your body for longer. Special Instructions: Take all of your medications as directed and remember to keep all of your doctor's appointments and follow-up as needed. Please pay close attention to your discharge med rec as medication changes were made. Thank you for allowing us to participate in your care, it was truly a pleasure having you for our patient!!! Discharge Disposition: HOME SELF-CARE <Ginny Morgan - Last Filed: 01/06/22 18:04> Providers Date of admission: 01/04/22 02:23 Attending physician: Willi Chase MD Primary care physician: Stated None Hospital Course: Zaki Polk NP rendered care for this patient independently, reviewed the findings and plan as documented in the note above. I did not physically speak with or examine the patient on this date.
== END 2022-01-06 12:45 | disposition home or self-care (01) ==
LOC: EC 18:50 → 6NMEDSUR 01-04 02:23
PROVIDERS: ADMIT Internal Medicine; ATTEND Internal Medicine
DX: R07.89 Other chest pain (principal); R22.43 Localized swelling, mass and lump, lower limb, bilateral; R79.89 Other specified abnormal findings of blood chemistry; I10 Essential (primary) hypertension; I25.10 Atherosclerotic heart disease of native coronary artery without angina pectoris; E78.5 Hyperlipidemia, unspecified; E78.1 Pure hyperglyceridemia; E87.5 Hyperkalemia; J44.9 Chronic obstructive pulmonary disease, unspecified; E05.90 Thyrotoxicosis, unspecified without thyrotoxic crisis or storm; Z86.69 Personal history of other diseases of the nervous system and sense organs; K21.9 Gastro-esophageal reflux disease without esophagitis; K44.9 Diaphragmatic hernia without obstruction or gangrene; M19.90 Unspecified osteoarthritis, unspecified site; G89.4 Chronic pain syndrome; M54.50 Low back pain, unspecified; R00.2 Palpitations; G62.9 Polyneuropathy, unspecified; R11.2 Nausea with vomiting, unspecified; R42 Dizziness and giddiness; Z79.02 Long term (current) use of antithrombotics/antiplatelets; Z79.82 Long term (current) use of aspirin; Z79.899 Other long term (current) drug therapy; Z87.11 Personal history of peptic ulcer disease; Z86.718 Personal history of other venous thrombosis and embolism; Z87.891 Personal history of nicotine dependence; Z95.5 Presence of coronary angioplasty implant and graft; Z98.41 Cataract extraction status, right eye; Z82.5 Family history of asthma and other chronic lower respiratory diseases; Z82.49 Family history of ischemic heart disease and other diseases of the circulatory system; Z80.6 Family history of leukemia
CPT/HCPCS: 99285; 96376 ×2; 96372 ×3; 96375; 96374; 36415; 94640; 93005 ×2; 93306; 85379; 83880; 80061; 80048; 83735; 84132 ×2; 84484; 85025; 85610; 85730; 87635; 71045; 93970; 71275; G0378 ×3; J2270; Q9967; J1644 ×3

== ENCOUNTER 2022-01-15 14:03 | Observation (INO) | payer MEDICARE, OTHER ==
[2022-01-15] MEDS ORDERED: MORPHINE SULFATE 4 MG/ML SYRINGE IV STA (16:56)
[2022-01-15] MEDS ORDERED: ONDANSETRON 4 MG/2 ML VIAL IVP STA (16:56)
--- NOTE | 2022-01-15 16:58 | ED ---
General Adult HPI - General Chief complaint: Abdominal Pain Stated complaint: nausea, abd pain Time Seen by Provider: 01/15/22 16:29 Source: patient, EMS Mode of arrival: EMS Limitations: no limitations - History of Present Illness Initial comments: This 66-year-old male presents emergency Department with abdominal pain 2 days. She states yesterday afternoon he began to have abdominal pain, nausea and vomiting. Patient states he try to take Bentyl which did not relieve any of his symptoms. Patient states he did have an episode of diarrhea this morning. Patient states his abdominal pain is 9/10. Patient denies any hematochezia, hemoptysis, fever. Patient states he has been trying to drink water, however he is unable to keep it down. Patient is unable to state one location of abdominal pain, states it is everywhere in abdomen. Patient denies any chest pain, shortness of breath, change in bladder, headache, dizziness, lightheadedness, weakness, change in vision. - Related Data Home Medications Medication Instructions Recorded Confirmed Morphine Sulfate ER [Ms Contin] 30 mg PO Q8H 10/10/17 01/15/22 tiZANidine [Zanaflex] 4 mg PO Q8H PRN 02/26/18 01/15/22 oxyCODONE-APAP 10-325MG [Percocet 1 tab PO Q8H 01/02/20 01/15/22 10-325 mg] Nitroglycerin Sl Tabs [Nitrostat] 0.4 mg SL Q5M PRN 07/13/21 01/15/22 Pregabalin [Lyrica] 100 mg PO BID 09/11/21 01/15/22 Clopidogrel [Plavix] 75 mg PO DAILY 01/04/22 01/15/22 SUMAtriptan succinate [Imitrex] 25 mg PO DAILY PRN 01/04/22 01/15/22 amLODIPine [Norvasc] 5 mg PO BID 01/04/22 01/15/22 hydrALAZINE HCL [Apresoline] 50 mg PO TID-W/MEALS 01/04/22 01/15/22 lisinopriL [Zestril] 40 mg PO DAILY 01/15/22 01/15/22 Previous Rx's Medication Instructions Recorded Atorvastatin [Lipitor] 80 mg PO HS 30 Days #30 tab 06/13/21 Fenofibrate 50 mg PO DAILY #30 capsule 01/06/22 Furosemide [Lasix] 20 mg PO DAILY 30 Days #30 tab 01/06/22 Metoprolol Succinate [Toprol XL] 150 mg PO DAILY 30 Days #45 tab 01/06/22 Allergies Allergy/AdvReac Type Severity Reaction Status Date / Time ibuprofen [From Motrin] Allergy Rash/Hives Verified 01/15/22 22:06 ketorolac tromethamine Allergy Rash/Hives Verified 01/15/22 22:06 [From Toradol] Review of Systems ROS Statement: Those systems with pertinent positive or pertinent negative responses have been documented in the HPI. ROS Other: All systems not noted in ROS Statement are negative. Past Medical History Past Medical History: Coronary Artery Disease (CAD), Chest Pain / Angina, COPD, Deep Vein Thrombosis (DVT), GERD/Reflux, Hyperlipidemia, Hypertension, Osteoarthritis (OA), Thyroid Disorder Additional Past Medical History / Comment(s): Occasional palpitations, gastritis, small hiatal hernia, diverticular dx, pt states years ago he had PUD, chronic low back pain, chronic pain syndrome, migraines, DVT L arm, numbness/tingling bilateral lower legs, bilateral past R hand fracture, a rthritis multiple joints, hyperthyroid, sinus problems. History of Any Multi-Drug Resistant Organisms: None Reported Past Surgical History: Back Surgery, Cholecystectomy, Heart Catheterization With Stent, Orthopedic Surgery Additional Past Surgical History / Comment(s): EGDs/colonoscopies, multiple low back surgeries, bilateral arm and bilateral thigh surgeries for brown recluse spider bites with infection, morphine pain pump insertion and removal due to infection, PCI with stents, L rotator cuff repair, L knee arthroscopy, cervical fusion/cage, R cataract removal. 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 He lived to be 82 yrs old. Mother History Unknown: Yes Family Medical History: Hypertension, Myocardial Infarction (CO) Additional Family Medical History / Comment(s): Mother of a CO at the age of 55yrs. Brother(s) Family Medical History: Cancer, COPD Additional Family Medical History / Comment(s): Leukemia General Exam Limitations: no limitations General appearance: alert Head exam: Present: atraumatic, normocephalic Eye exam: Present: normal appearance, PERRL, EOMI Pupils: Present: normal accommodation ENT exam: Present: mucous membranes moist Neck exam: Present: full ROM. Absent: tenderness, meningismus Respiratory exam: Present: normal lung sounds bilaterally. Absent: respiratory distress, wheezes, rales, rhonchi, stridor Cardiovascular Exam: Present: regular rate, normal rhythm, normal heart sounds. Absent: systolic murmur, diastolic murmur, rubs, gallop, clicks GI/Abdominal exam: Present: soft, tenderness (Tender to palpation in all quadrants, worse above umbilicus. Scar on abdomen, states that its from a pump for morphine for his chronic back pain that has since been removed. Patient with bruising to his left lower quadrant which she states it is from injecting anticoagulants when he was here last.), normal bowel sounds, other (Tenderness to palpation in all quadrants, worse on the umbilicus). Absent: distended, guarding, rebound, rigid Extremities exam: Present: full ROM, normal capillary refill. Absent: pedal edema, joint swelling, calf tenderness Back exam: Present: normal inspection. Absent: tenderness, CVA tenderness (R), CVA tenderness (L), paraspinal tenderness, vertebral tenderness Neurological exam: Present: alert, oriented X3, CN II-XII intact Psychiatric exam: Present: normal affect, normal mood Skin exam: Present: warm, dry, intact, normal color. Absent: rash Course Vital Signs 01/15/22 01/15/22 01/15/22 14:13 17:47 22:00 Temperature 97.7 F 97.7 F Pulse Rate 106 H 113 H 106 H Respiratory 20 20 24 Rate Blood Pressure 129/78 141/104 162/97 O2 Sat by Pulse 100 100 99 Oximetry EKG Findings - EKG Comments: EKG Findings:: EKG impression: Sinus tachycardia. Ventricular rate 112 bpm. FL interval 120. Advent 85. QT/QTc 321/387. Nonspecific ST changes lead II Medical Decision Making - Medical Decision Making This 66-year-old male presents emergency department with intractable nausea vomiting and abdominal pain. Labs with slightly leukocytosis of 10.9. Coagulation unremarkable. Chemistry with plasma lactic acid of 4.5. Troponin negative. CT with no acute abnormalities,3 mm low attenuating left hepatic focus compatible with cyst of liver/GB, cholecystectomy and hepatic steatosis. Due to intractable nausea vomiting, abdominal pain, dehydration and lactic acid patient will be admitted to the hospital for further workup. I did speak to who accepted patient to his services. Due to only slightly elevated white blood cells, no fever or focal pain indicating infection, patient was not placed on antibiotics- blood culture is pending. Reviewed case with my attending, . - Lab Data Result diagrams: 01/15/22 18:35 01/15/22 18:39 Lab Results 01/15/22 01/15/22 01/15/22 Range/Units 18:13 18:35 18:35 WBC 10.9 H (3.8-10.6) k/uL RBC 4.92 (4.30-5.90) m/uL Hgb 14.5 (13.0-17.5) gm/dL Hct 45.5 (39.0-53.0) % MCV 92.5 (80.0-100.0) fL MCH 29.5 (25.0-35.0) pg MCHC 31.9 (31.0-37.0) g/dL RDW 14.9 (11.5-15.5) % Plt Count 598 H D (150-450) k/uL MPV 6.5 Neutrophils % 91 % Lymphocytes % 6 % Monocytes % 2 % Eosinophils % 1 % Basophils % 0 % Neutrophils # 9.9 H (1.3-7.7) k/uL Lymphocytes # 0.6 L (1.0-4.8) k/uL Monocytes # 0.2 (0-1.0) k/uL Eosinophils # 0.1 (0-0.7) k/uL Basophils # 0.0 (0-0.2) k/uL PT (9.0-12.0) sec INR (<1.2) APTT (22.0-30.0) sec Sodium (137-145) mmol/L Potassium (3.5-5.1) mmol/L Chloride (98-107) mmol/L Carbon Dioxide (22-30) mmol/L Anion Gap mmol/L BUN (9-20) mg/dL Creatinine (0.66-1.25) mg/dL Est GFR (CKD-EPI)AfAm (>60 ml/min/1.73 sqM) Est GFR (CKD-EPI)NonAf (>60 ml/min/1.73 sqM) Glucose (74-99) mg/dL Lactic Ac Sepsis Rflx Plasma Lactic Acid Rosales 4.5 H* (0.7-2.0) mmol/L Calcium (8.4-10.2) mg/dL Total Bilirubin (0.2-1.3) mg/dL AST (17-59) U/L ALT (4-49) U/L Alkaline Phosphatase (38-126) U/L Troponin I (0.000-0.034) ng/mL Total Protein (6.3-8.2) g/dL Albumin (3.5-5.0) g/dL Lipase (23-300) U/L Coronavirus (PCR) Not Detected (Not Detectd) 01/15/22 01/15/22 01/15/22 Range/Units 18:35 18:39 18:39 WBC (3.8-10.6) k/uL RBC (4.30-5.90) m/uL Hgb (13.0-17.5) gm/dL Hct (39.0-53.0) % MCV (80.0-100.0) fL MCH (25.0-35.0) pg MCHC (31.0-37.0) g/dL RDW (11.5-15.5) % Plt Count (150-450) k/uL MPV Neutrophils % % Lymphocytes % % Monocytes % % Eosinophils % % Basophils % % Neutrophils # (1.3-7.7) k/uL Lymphocytes # (1.0-4.8) k/uL Monocytes # (0-1.0) k/uL Eosinophils # (0-0.7) k/uL Basophils # (0-0.2) k/uL PT 11.0 (9.0-12.0) sec INR 1.0 (<1.2) APTT 22.2 (22.0-30.0) sec Sodium 140 (137-145) mmol/L Potassium 4.6 (3.5-5.1) mmol/L Chloride 106 (98-107) mmol/L Carbon Dioxide 15 L (22-30) mmol/L Anion Gap 19 mmol/L BUN 18 (9-20) mg/dL Creatinine 0.81 (0.66-1.25) mg/dL Est GFR (CKD-EPI)AfAm >90 (>60 ml/min/1.73 sqM) Est GFR (CKD-EPI)NonAf >90 (>60 ml/min/1.73 sqM) Glucose 237 H (74-99) mg/dL Lactic Ac Sepsis Rflx Plasma Lactic Acid Rosales (0.7-2.0) mmol/L Calcium 10.9 H (8.4-10.2) mg/dL Total Bilirubin 0.8 (0.2-1.3) mg/dL AST 26 (17-59) U/L ALT 23 (4-49) U/L Alkaline Phosphatase 97 (38-126) U/L Troponin I <0.012 (0.000-0.034) ng/mL Total Protein 9.1 H (6.3-8.2) g/dL Albumin 5.3 H (3.5-5.0) g/dL Lipase 42 (23-300) U/L Coronavirus (PCR) (Not Detectd) 01/15/22 01/15/22 Range/Units 19:14 21:50 WBC (3.8-10.6) k/uL RBC (4.30-5.90) m/uL Hgb (13.0-17.5) gm/dL Hct (39.0-53.0) % MCV (80.0-100.0) fL MCH (25.0-35.0) pg MCHC (31.0-37.0) g/dL RDW (11.5-15.5) % Plt Count (150-450) k/uL MPV Neutrophils % % Lymphocytes % % Monocytes % % Eosinophils % % Basophils % % Neutrophils # (1.3-7.7) k/uL Lymphocytes # (1.0-4.8) k/uL Monocytes # (0-1.0) k/uL Eosinophils # (0-0.7) k/uL Basophils # (0-0.2) k/uL PT (9.0-12.0) sec INR (<1.2) APTT (22.0-30.0) sec Sodium (137-145) mmol/L Potassium (3.5-5.1) mmol/L Chloride (98-107) mmol/L Carbon Dioxide (22-30) mmol/L Anion Gap mmol/L BUN (9-20) mg/dL Creatinine (0.66-1.25) mg/dL Est GFR (CKD-EPI)AfAm (>60 ml/min/1.73 sqM) Est GFR (CKD-EPI)NonAf (>60 ml/min/1.73 sqM) Glucose (74-99) mg/dL Lactic Ac Sepsis Rflx Y Plasma Lactic Acid Rosales 3.2 H* (0.7-2.0) mmol/L Calcium (8.4-10.2) mg/dL Total Bilirubin (0.2-1.3) mg/dL AST (17-59) U/L ALT (4-49) U/L Alkaline Phosphatase (38-126) U/L Troponin I (0.000-0.034) ng/mL Total Protein (6.3-8.2) g/dL Albumin (3.5-5.0) g/dL Lipase (23-300) U/L Coronavirus (PCR) (Not Detectd) Disposition Clinical Impression: Intractable nausea and vomiting, Abdominal pain, Dehydration Disposition: ADMITTED IP TO THIS [facility] Condition: Serious Is patient prescribed a controlled substance at d/c from ED?: No Referrals: None,Stated [Primary Care Provider] - 1-2 days Time of Disposition: 22:35
[2022-01-15] MEDS ORDERED: MORPHINE SULFATE 4 MG/ML SYRINGE IM STA (17:33)
[2022-01-15] MEDS ORDERED: ONDANSETRON ODT 4 MG TAB PO STA (17:42)
[2022-01-15] MEDS: SODIUM CHLORIDE 0.9% 1,000 ML IV STA ×2 (17:46→19:30)
[2022-01-15 19:03] LABS: Partial Thromboplastin Time 22.2 sec (22.0-30.0)
[2022-01-15 19:07] LABS: Basophils % (A) 0 %; Eosinophils # (A) 0.1 k/uL (0-0.7); Eosinophils % (A) 1 %; HCT 45.5 % (39.0-53.0); HGB 14.5 gm/dL (13.0-17.5); Lymphocytes # (A) 0.6 k/uL (1.0-4.8); Lymphocytes % (A) 6 %; MCH 29.5 pg (25.0-35.0); MCHC 31.9 g/dL (31.0-37.0); MCV 92.5 fL (80.0-100.0); Mean Platelet Volume 6.5; Monocytes # (A) 0.2 k/uL (0-1.0); Monocytes % (A) 2 %; Neutrophils # (A) 9.9 k/uL (1.3-7.7); Neutrophils % (A) 91 %; RBC 4.92 m/uL (4.30-5.90); RDW 14.9 % (11.5-15.5); WBC 10.9 k/uL (3.8-10.6)
[2022-01-15 19:08] LABS: AST 26 U/L (17-59); African American GFR (CKD) >90 (>60 ml/min/1.73 sqM); Albumin 5.3 g/dL (3.5-5.0); Alkaline Phosphatase 97 U/L (38-126); Anion Gap 19 mmol/L; Blood Urea Nitrogen 18 mg/dL (9-20); Calcium 10.9 mg/dL (8.4-10.2); Carbon Dioxide 15 mmol/L (22-30); Chloride 106 mmol/L (98-107); Glucose 237 mg/dL (74-99); Lipase 42 U/L (23-300); Non-African American GFR(CKD) >90 (>60 ml/min/1.73 sqM); Potassium 4.6 mmol/L (3.5-5.1); Sodium 140 mmol/L (137-145); Total Bilirubin 0.8 mg/dL (0.2-1.3); Total Protein 9.1 g/dL (6.3-8.2)
[2022-01-15 19:08] LABS: Platelet Count 598 k/uL (150-450)
[2022-01-15 19:15] LABS: ALT 23 U/L (4-49)
[2022-01-15] MEDS ORDERED: HYDROmorphone 0.5 MG/0.5 ML SYRINGE IVP STA (19:47)
--- NOTE | 2022-01-15 22:00 | CT ---
EXAMINATION TYPE: CT abdomen pelvis w con DATE OF EXAM: 01/15/2022 COMPARISON: None available HISTORY: vomiting and pain CT DLP: 917.8 mGycm Automated exposure control for dose reduction was used. TECHNIQUE: Helical acquisition of images was performed from the lung bases through the pelvis. CONTRAST: Performed without Oral Contrast and with IV Contrast, patient injected with 100 mL of Isovue 300. FINDINGS: LUNG BASES: No significant abnormality is appreciated. LIVER/GB: No acute abnormality is appreciated. 3 mm low attenuating left hepatic focus compatible wit h cyst. Cholecystectomy and hepatic steatosis. PANCREAS: No significant abnormality is seen. SPLEEN: No significant abnormality is seen. ADRENALS: No significant abnormality is seen. KIDNEYS: No significant abnormality is seen. FREE AIR: No free air is visualized. RETROPERITONEAL ADENOPATHY: None visualized REPRODUCTIVE ORGANS: No significant abnormality is seen URINARY BLADDER: No significant abnormality is seen. PELVIC ADENOPATHY: None visualized. OSSEOUS STRUCTURES: No acute abnormality is seen. L3-S1 fusion. BOWEL: No significant abnormality is seen. OTHER: None IMPRESSION: NO ACUTE ABNORMALITY. CHRONIC AND INCIDENTAL FINDINGS ABOVE.
[2022-01-15] MEDS ORDERED: NALOXONE 0.4 MG/ML 1 ML VIAL IV PRN (22:38)
[2022-01-15] MEDS: PANTOPRAZOLE 40 MG/10 ML VIAL IV SCH (23:21)
[2022-01-15] MEDS: HYDROmorphone 0.5 MG/0.5 ML SYRINGE IVP PRN (23:21)
[2022-01-15] MEDS: ONDANSETRON 4 MG/2 ML VIAL IVP PRN (23:23)
[2022-01-15] MEDS: SODIUM CHLORIDE 0.9% 1,000 ML IV SCH (23:23)
[2022-01-16 01:08] LABS: Appearance,Urine Clear (Clear); Bilirubin,Urine Negative (Negative); Blood,Urine Negative (Negative); Color,Urine Yellow; Glucose,Urine (UA) Negative (Negative); Ketones,Urine 1+ (Negative); Leukocyte Esterase,Urine Negative (Negative); Nitrite,Urine Negative (Negative); Protein,Urine Trace (Negative); Specific Gravity,Urine >1.050 (1.001-1.035); Urobilinogen,Urine <2.0 mg/dL (<2.0)
[2022-01-16] MEDS: HYDROmorphone 0.5 MG/0.5 ML SYRINGE IVP PRN ×4 (01:30→10:01)
[2022-01-16 02:28] VITALS: RESP 18
[2022-01-16 06:21] LABS: Basophils % (A) 0 %; Eosinophils # (A) 0.1 k/uL (0-0.7); Eosinophils % (A) 1 %; HCT 42.5 % (39.0-53.0); HGB 13.8 gm/dL (13.0-17.5); Lymphocytes # (A) 0.8 k/uL (1.0-4.8); Lymphocytes % (A) 7 %; MCH 29.3 pg (25.0-35.0); MCHC 32.5 g/dL (31.0-37.0); MCV 90.3 fL (80.0-100.0); Mean Platelet Volume 6.8; Monocytes # (A) 0.8 k/uL (0-1.0); Monocytes % (A) 7 %; Neutrophils # (A) 10.1 k/uL (1.3-7.7); Neutrophils % (A) 85 %; Platelet Count 370 k/uL (150-450); RBC 4.71 m/uL (4.30-5.90); RDW 14.7 % (11.5-15.5); WBC 11.9 k/uL (3.8-10.6)
[2022-01-16] MEDS: ONDANSETRON 4 MG/2 ML VIAL IVP PRN (06:55)
[2022-01-16] MEDS: PANTOPRAZOLE 40 MG/10 ML VIAL IV SCH (08:39)
[2022-01-16] MEDS: SODIUM CHLORIDE 0.9% 1,000 ML IV SCH (08:40)
[2022-01-16] MEDS ORDERED: tiZANidine 4 MG TAB PO PRN (10:58)
[2022-01-16] MEDS ORDERED: SUMAtriptan succinate 25 MG TAB PO PRN (10:58)
[2022-01-16] MEDS ORDERED: NITROGLYCERIN SL TABS 0.4 MG TAB SUBLINGUAL PRN (10:58)
[2022-01-16 11:00] VITALS: BP 164/83; PULSE 89; TEMP 97.8
[2022-01-16] MEDS ORDERED: MORPHINE SULFATE ER 30 MG TABLET PO SCH (12:00)
--- NOTE | 2022-01-16 12:10 | P.DS ---
Providers Date of admission: 01/15/22 22:56 Attending physician: Joselito Ng Primary care physician: Stated None Hospital Course: Refer to my history of present illness for further details Patient Condition at Discharge: Serious Plan - Discharge Summary New Discharge Prescriptions: New Pantoprazole Sodium [Protonix] 40 mg PO AC-BRKFST #14 tab No Action Morphine Sulfate ER [Ms Contin] 30 mg PO Q8H tiZANidine [Zanaflex] 4 mg PO Q8H PRN PRN Reason: Muscle Spasm oxyCODONE-APAP 10-325MG [Percocet 10-325 mg] 1 tab PO Q8H Atorvastatin [Lipitor] 80 mg PO HS 30 Days #30 tab Nitroglycerin Sl Tabs [Nitrostat] 0.4 mg SL Q5M PRN PRN Reason: Chest Pain amLODIPine [Norvasc] 5 mg PO BID Clopidogrel [Plavix] 75 mg PO DAILY SUMAtriptan succinate [Imitrex] 25 mg PO DAILY PRN PRN Reason: Migraine Headache lisinopriL [Zestril] 40 mg PO DAILY Pregabalin [Lyrica] 100 mg PO BID hydrALAZINE HCL [Apresoline] 50 mg PO TID-W/MEALS Furosemide [Lasix] 20 mg PO DAILY 30 Days #30 tab Metoprolol Succinate [Toprol XL] 150 mg PO DAILY 30 Days #45 tab Fenofibrate 50 mg PO DAILY #30 capsule Discharge Medication List Morphine Sulfate ER [Ms Contin] 30 mg PO Q8H 10/10/17 [History] tiZANidine [Zanaflex] 4 mg PO Q8H PRN 02/26/18 [History] oxyCODONE-APAP 10-325MG [Percocet 10-325 mg] 1 tab PO Q8H 01/02/20 [History] Atorvastatin [Lipitor] 80 mg PO HS 30 Days #30 tab 06/13/21 [Rx] Nitroglycerin Sl Tabs [Nitrostat] 0.4 mg SL Q5M PRN 07/13/21 [History] Pregabalin [Lyrica] 100 mg PO BID 09/11/21 [History] Clopidogrel [Plavix] 75 mg PO DAILY 01/04/22 [History] SUMAtriptan succinate [Imitrex] 25 mg PO DAILY PRN 01/04/22 [History] amLODIPine [Norvasc] 5 mg PO BID 01/04/22 [History] hydrALAZINE HCL [Apresoline] 50 mg PO TID-W/MEALS 01/04/22 [History] Fenofibrate 50 mg PO DAILY #30 capsule 01/06/22 [Rx] Furosemide [Lasix] 20 mg PO DAILY 30 Days #30 tab 01/06/22 [Rx] Metoprolol Succinate [Toprol XL] 150 mg PO DAILY 30 Days #45 tab 01/06/22 [Rx] lisinopriL [Zestril] 40 mg PO DAILY 01/15/22 [History] Pantoprazole Sodium [Protonix] 40 mg PO AC-BRKFST #14 tab 01/16/22 [Rx] Follow up Appointment(s)/Referral(s): Cory Post DO [STAFF PHYSICIAN] - 1 Week Discharge Disposition: HOME SELF-CARE
--- NOTE | 2022-01-16 12:10 | P.HPIM ---
History of Present Illness Patient is [id number] male came in with abdominal pain nausea vomiting patient's abdominal pain is in the epigastric area, severe as per the patient sharp in nature. Patient had multiple hospitalizations in the past for similar complaints in the past. Patient had a CT of the abdomen which did not show any significant abnormality patient is able to tolerate a regular diet last night. Patient nausea vomiting improved. Patient had lactic acidosis on admission which resolved at this time. Lipase is within normal limits. REVIEW OF SYSTEMS: CONSTITUTIONAL: No fever, no malaise, no fatigue. HEENT: No recent visual problems or hearing problems. Denied any sore throat. CARDIOVASCULAR: No chest pain, orthopnea, PND, no palpitations, no syncope. PULMONARY: No shortness of breath, no cough, no hemoptysis. GASTROINTESTINAL: No diarrhea. NEUROLOGICAL: No headaches, no weakness, no numbness. HEMATOLOGICAL: Denies any bleeding or petechiae. GENITOURINARY: Denies any burning micturition, frequency, or urgency. MUSCULOSKELETAL/RHEUMATOLOGICAL: Denies any joint pain, swelling, or any muscle pain. ENDOCRINE: Denies any polyuria or polydipsia. The rest of the 14-point review of systems is negative. PHYSICAL EXAMINATION: GENERAL: The patient is alert and oriented x3, not in any acute distress. Well developed, well nourished. HEENT: Pupils are round and equally reacting to light. EOMI. No scleral icterus. No conjunctival pallor. Normocephalic, atraumatic. No pharyngeal erythema. No thyromegaly. CARDIOVASCULAR: S1 and S2 present. No murmurs, rubs, or gallops. PULMONARY: Chest is clear to auscultation, no wheezing or crackles. ABDOMEN: Soft, subjective epigastric abdominal tenderness nondistended, normoactive bowel sounds. No palpable organomegaly. MUSCULOSKELETAL: No joint swelling or deformity. EXTREMITIES: No cyanosis, clubbing, or pedal edema. NEUROLOGICAL: Gross neurological examination did not reveal any focal deficits. SKIN: No rashes. Assessment and plan -Epigastric abdominal pain along with nausea vomiting probably secondary to gastritis or peptic ulcer disease patient was given Protonix patient the was able to tolerate diet. Patient will be given 1 more diet and if he is able to tolerate patient will be discharged today patient was given Protonix. Patient will be discharged on Protonix for 14 days -Anion gap metabolic acidosis: Secondary to lactic acidosis from dehydration from nausea vomiting which improved at this time -Hypercalcemia secondary to dehydration -Elevated blood sugars: Hemoglobin A1c was ordered, results to be followed in PCPs office. His last hemoglobin A1c was in 2014. -Coronary artery disease -COPD without any acute exacerbation of time -DVT in the past presently not on any anticoagulation -Gastroesophageal reflux disease -Hyperlipidemia -Hypertension -Hypothyroidism Patient will be discharged today. Past Medical History Past Medical History: Coronary Artery Disease (CAD), Chest Pain / Angina, COPD, Deep Vein Thrombosis (DVT), GERD/Reflux, Hyperlipidemia, Hypertension, Osteoarthritis (OA), Thyroid Disorder Additional Past Medical History / Comment(s): Occasional palpitations, gastritis, small hiatal hernia, diverticular dx, pt states years ago he had PUD, chronic low back pain, chronic pain syndrome, migraines, DVT L arm, numbness/tingling bilateral lower legs, bilateral past R hand fracture, arthritis multiple joints, hyperthyroid, sinus problems. History of Any Multi-Drug Resistant Organisms: None Reported Past Surgical History: Back Surgery, Cholecystectomy, Heart Catheterization With Stent, Orthopedic Surgery Additional Past Surgical History / Comment(s): EGDs/colonoscopies, multiple low back surgeries, bilateral arm and bilateral thigh surgeries for brown recluse spider bites with infection, morphine pain pump insertion and removal due to infection, PCI with stents, L rotator cuff repair, L knee arthroscopy, cervical fusion/cage, R cataract removal. 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 states he was "down for 8 minutes" Date of Last Stent Placement:: 10/12/17 Past Psychological History: No Psychological Hx Reported Additional Psychological History / Comment(s): Pt resides with his spouse. He uses a walker and cane to ambulate. He does not drive, neither does his spouse, they us the bus. Smoking Status: Former smoker Past Alcohol Use History: None Reported Additional Past Alcohol Use History / Comment(s): Pt states he quit smoking when he 19 and smoked 1ppd. Past Drug Use History: None Reported - Past Family History Father Family Medical History: No Reported History Additional Family Medical History / Comment(s): Father had back problems. He lived to be 82 yrs old. Mother History Unknown: Yes Family Medical History: Hypertension, Myocardial Infarction ([place]) Additional Family Medical History / Comment(s): Mother of a [place] at the age of 55yrs. Brother(s) Family Medical History: Cancer, COPD Additional Family Medical History / Comment(s): Leukemia Medications and Allergies Home Medications Medication Instructions Recorded Confirmed Type Morphine Sulfate ER [Ms Contin] 30 mg PO Q8H 10/10/17 01/15/22 History tiZANidine [Zanaflex] 4 mg PO Q8H PRN 02/26/18 01/15/22 History oxyCODONE-APAP 10-325MG [Percocet 1 tab PO Q8H 01/02/20 01/15/22 History 10-325 mg] Atorvastatin [Lipitor] 80 mg PO HS 30 Days #30 tab 06/13/21 01/15/22 Rx Nitroglycerin Sl Tabs [Nitrostat] 0.4 mg SL Q5M PRN 07/13/21 01/15/22 History Pregabalin [Lyrica] 100 mg PO BID 09/11/21 01/15/22 History Clopidogrel [Plavix] 75 mg PO DAILY 01/04/22 01/15/22 History SUMAtriptan succinate [Imitrex] 25 mg PO DAILY PRN 01/04/22 01/15/22 History amLODIPine [Norvasc] 5 mg PO BID 01/04/22 01/15/22 History hydrALAZINE HCL [Apresoline] 50 mg PO TID-W/MEALS 01/04/22 01/15/22 History Fenofibrate 50 mg PO DAILY #30 capsule 01/06/22 01/15/22 Rx Furosemide [Lasix] 20 mg PO DAILY 30 Days #30 tab 01/06/22 01/15/22 Rx Metoprolol Succinate [Toprol XL] 150 mg PO DAILY 30 Days #45 tab 01/06/22 01/15/22 Rx lisinopriL [Zestril] 40 mg PO DAILY 01/15/22 01/15/22 History Pantoprazole Sodium [Protonix] 40 mg PO AC-BRKFST #14 tab 01/16/22 Rx Allergies Allergy/AdvReac Type Severity Reaction Status Date / Time ibuprofen [From Motrin] Allergy Rash/Hives Verified 01/15/22 22:06 ketorolac tromethamine Allergy Rash/Hives Verified 01/15/22 22:06 [From Toradol] Physical Exam Vitals: Vital Signs Temp Pulse Pulse Resp BP BP Pulse Ox 01/16/22 07:00 97.8 F 89 18 164/83 97 01/16/22 06:06 87 18 169/98 95 01/16/22 02:28 88 18 154/98 98 01/16/22 02:16 82 18 01/16/22 00:00 104 H 24 165/78 97 01/15/22 22:00 97.7 F 106 H 24 162/97 99 01/15/22 17:47 113 H 20 141/104 100 01/15/22 14:13 97.7 F 106 H 20 129/78 100 Intake and Output 01/15/22 01/16/22 01/16/22 22:59 06:59 14:59 Other: # Voids 1 Weight 79.379 kg Results CBC & Chem 7: 01/16/22 05:29 01/15/22 18:39 Labs: Abnormal Lab Results - Last 24 Hours (Table) 01/15/22 01/15/22 01/15/22 Range/Units 18:35 18:35 18:39 WBC 10.9 H (3.8-10.6) k/uL Plt Count 598 H D (150-450) k/uL Neutrophils # 9.9 H (1.3-7.7) k/uL Lymphocytes # 0.6 L (1.0-4.8) k/uL Carbon Dioxide 15 L (22-30) mmol/L Glucose 237 H (74-99) mg/dL Plasma Lactic Acid [place] 4.5 H* (0.7-2.0) mmol/L Calcium 10.9 H (8.4-10.2) mg/dL Total Protein 9.1 H (6.3-8.2) g/dL Albumin 5.3 H (3.5-5.0) g/dL Ur Specific [place] (1.001-1.035) Urine Protein (Negative) Urine Ketones (Negative) 01/15/22 01/16/22 01/16/22 Range/Units 21:50 00:51 05:29 WBC 11.9 H (3.8-10.6) k/uL Plt Count (150-450) k/uL Neutrophils # 10.1 H (1.3-7.7) k/uL Lymphocytes # 0.8 L (1.0-4.8) k/uL Carbon Dioxide (22-30) mmol/L Glucose (74-99) mg/dL Plasma Lactic Acid [place] 3.2 H* (0.7-2.0) mmol/L Calcium (8.4-10.2) mg/dL Total Protein (6.3-8.2) g/dL Albumin (3.5-5.0) g/dL Ur Specific [place] >1.050 H (1.001-1.035) Urine Protein Trace H (Negative) Urine Ketones 1+ H (Negative) Thrombosis Risk Factor Assmnt - Choose All That Apply Any of the Below Risk Factors Present?: No Other Risk Factors: No Other congenital or acquired thrombophilia - If yes, enter type in comment: No Thrombosis Risk Factor Assessment Level: Very Low Risk
[2022-01-16] MEDS ORDERED: hydrALAZINE HCL 50 MG TAB PO SCH (12:30)
[2022-01-16 13:55] LABS: African American GFR (CKD) 100.1 (60.0-200.0); Albumin 4.9 g/dL (3.8-4.9); Albumin/Globulin Ratio 1.88 (1.60-3.17); BUN/Creat Ratio 22.92 Ratio (12.00-20.00); Blood Urea Nitrogen 21.2 mg/dL (9.0-27.0); Carbon Dioxide 13.7 mmol/L (20.0-27.5); Globulin 2.6 g/dL (1.6-3.3); Non-African American GFR(CKD) 86.4 (60.0-200.0); Potassium 4.8 mmol/L (3.5-5.5); Total Bilirubin 0.3 mg/dL (0.30-1.20); Total Protein 7.5 g/dL (6.2-8.2)
[2022-01-16] MEDS ORDERED: oxyCODONE-APAP 10-325MG 1 EACH TAB PO SCH (16:00)
[2022-01-16] MEDS ORDERED: ATORVASTATIN 80 MG TAB PO SCH (21:00)
[2022-01-16] MEDS ORDERED: PREGABALIN 100 MG CAP PO SCH (21:00)
[2022-01-16] MEDS ORDERED: PANTOPRAZOLE 40 MG/10 ML VIAL IV SCH (21:00)
[2022-01-16] MEDS ORDERED: amLODIPine 5 MG TAB PO SCH (21:00)
[2022-01-17] MEDS ORDERED: lisinopriL 20 MG TAB PO SCH (09:00)
[2022-01-17] MEDS ORDERED: METOPROLOL SUCCINATE (ER) 50 MG TAB.ER.24H PO SCH (09:00)
[2022-01-17] MEDS ORDERED: FENOFIBRATE 54 MG TAB PO SCH (09:00)
[2022-01-17] MEDS ORDERED: CLOPIDOGREL 75 MG TAB PO SCH (09:00)
[2022-01-17 10:43] LABS: Estimated Average Glucose UNC
== END 2022-01-16 14:36 | disposition home or self-care (01) ==
LOC: EC 14:03 → 1SOBS 22:56 → 6NMEDSUR 01-16 04:59
PROVIDERS: ADMIT Hospitalist; ATTEND Hospitalist
DX: R10.13 Epigastric pain (principal); R11.2 Nausea with vomiting, unspecified; Z20.822 Contact with and (suspected) exposure to COVID-19; Z90.49 Acquired absence of other specified parts of digestive tract; D72.829 Elevated white blood cell count, unspecified; K27.9 Peptic ulcer, site unspecified, unspecified as acute or chronic, without hemorrhage or perforation; R19.7 Diarrhea, unspecified; E87.2 Acidosis; E03.9 Hypothyroidism, unspecified; E78.5 Hyperlipidemia, unspecified; E83.52 Hypercalcemia; E86.0 Dehydration; I10 Essential (primary) hypertension; G89.4 Chronic pain syndrome; K76.0 Fatty (change of) liver, not elsewhere classified; E05.90 Thyrotoxicosis, unspecified without thyrotoxic crisis or storm; K44.9 Diaphragmatic hernia without obstruction or gangrene; M19.90 Unspecified osteoarthritis, unspecified site; M54.50 Low back pain, unspecified; R20.2 Paresthesia of skin; R20.0 Anesthesia of skin; I25.10 Atherosclerotic heart disease of native coronary artery without angina pectoris; J44.9 Chronic obstructive pulmonary disease, unspecified; R93.89 Abnormal findings on diagnostic imaging of other specified body structures; K21.9 Gastro-esophageal reflux disease without esophagitis; Z79.02 Long term (current) use of antithrombotics/antiplatelets; Z79.899 Other long term (current) drug therapy; Z86.718 Personal history of other venous thrombosis and embolism; Z87.11 Personal history of peptic ulcer disease; Z87.891 Personal history of nicotine dependence; Z98.41 Cataract extraction status, right eye; Z95.5 Presence of coronary angioplasty implant and graft; Z86.69 Personal history of other diseases of the nervous system and sense organs; Z82.5 Family history of asthma and other chronic lower respiratory diseases; Z82.49 Family history of ischemic heart disease and other diseases of the circulatory system; Z80.6 Family history of leukemia; Z96.1 Presence of intraocular lens
CPT/HCPCS: 99285; 96374; 96376 ×2; 96361; 96372; 96375; 36415; 93005; 80053 ×2; 83605 ×2; 83690; 84484; 85025 ×2; 85610; 85730; 81003; 87635; 74177; G0378 ×2; J2270; J2405 ×2; C9113 ×2; J1170 ×2; Q9967; 83036

== ENCOUNTER 2022-01-23 01:20 | Emergency (ER) | payer MEDICARE, OTHER ==
[2022-01-23] MEDS ORDERED: NITROGLYCERIN OINT 1 INCH/GM PACKET TOPICAL STA (01:35)
[2022-01-23] MEDS ORDERED: NITROGLYCERIN SL TABS 0.4 MG TAB SUBLINGUAL STA ×2 (01:35→02:32)
[2022-01-23] MEDS ORDERED: ASPIRIN 81 MG PO STA ×2 (01:35→02:01)
[2022-01-23 01:38] VITALS: RESP 18; TEMP 98.2
--- NOTE | 2022-01-23 02:03 | XR ---
EXAMINATION TYPE: XR chest 1V portable DATE OF EXAM: 01/23/2022 COMPARISON: 01/03/2022 HISTORY: Chest pain TECHNIQUE: Single view FINDINGS: There is no heart failure nor confluent pneumonic infiltrate. Costophrenic angles are clear . There are chest leads. Thoracic aorta is atheromatous. Bony thorax appears intact. IMPRESSION: No active cardiopulmonary disease. No change.
--- NOTE | 2022-01-23 02:04 | ED ---
Chest Pain HPI - General Source: patient, RN notes reviewed Mode of arrival: EMS Limitations: physical limitation - History of Present Illness Complaint: chest pain <Marcelino Almanza - Last Filed: 01/23/22 03:00> <Wilman Gordillo - Last Filed: 01/23/22 05:29> - General Chief Complaint: Chest Pain Stated Complaint: Chest Pain Time Seen by Provider: 01/23/22 01:22 - History of Present Illness Initial Comments: This is a 66-year-old male presents complaining of chest pressure that started about 11 PM. Patient states that pressure is been constant since it started. No alleviating or exacerbating factors. Located in the left chest. No radiation. Patient has a history of hypertension. Patient is a nonsmoker. Denies alcohol or drug abuse. Patient has a history of recurrent chest pain and was seen here twice in December and admitted both times. Patient had cardiology consultation. Patient had a clear cardiac stress test in April 2021. Patient denies any diaphoresis or nausea. No shortness of breath. She does have a history of chronic peripheral edema. No headache, no fever or chills, no changes in vision or hearing, no sore throat or difficulty with speech, no neck pain, no shortness of breath, no abdominal pain, no nausea or vomiting, no changes in urination or bowel movements, no numbness or tingling, no extremity pain, no skin rashes or lesions. (Marcelino Almanza) - Related Data Home Medications Medication Instructions Recorded Confirmed Morphine Sulfate ER [Ms Contin] 30 mg PO Q8H 10/10/17 01/15/22 tiZANidine [Zanaflex] 4 mg PO Q8H PRN 02/26/18 01/15/22 oxyCODONE-APAP 10-325MG [Percocet 1 tab PO Q8H 01/02/20 01/15/22 10-325 mg] Nitroglycerin Sl Tabs [Nitrostat] 0.4 mg SL Q5M PRN 07/13/21 01/15/22 Pregabalin [Lyrica] 100 mg PO BID 09/11/21 01/15/22 Clopidogrel [Plavix] 75 mg PO DAILY 01/04/22 01/15/22 SUMAtriptan succinate [Imitrex] 25 mg PO DAILY PRN 01/04/22 01/15/22 amLODIPine [Norvasc] 5 mg PO BID 01/04/22 01/15/22 hydrALAZINE HCL [Apresoline] 50 mg PO TID-W/MEALS 01/04/22 01/15/22 lisinopriL [Zestril] 40 mg PO DAILY 01/15/22 01/15/22 Previous Rx's Medication Instructions Recorded Atorvastatin [Lipitor] 80 mg PO HS 30 Days #30 tab 06/13/21 Fenofibrate 50 mg PO DAILY #30 capsule 01/06/22 Furosemide [Lasix] 20 mg PO DAILY 30 Days #30 tab 01/06/22 Metoprolol Succinate [Toprol XL] 150 mg PO DAILY 30 Days #45 tab 01/06/22 Pantoprazole Sodium [Protonix] 40 mg PO AC-BRKFST #14 tab 01/16/22 Allergies Allergy/AdvReac Type Severity Reaction Status Date / Time ibuprofen [From Motrin] Allergy Rash/Hives Verified 01/23/22 01:38 ketorolac tromethamine Allergy Rash/Hives Verified 01/23/22 01:38 [From Toradol] Review of Systems ROS Other: All systems not noted in ROS Statement are negative. <Marcelino Almanza - Last Filed: 01/23/22 03:00> ROS Other: All systems not noted in ROS Statement are negative. <Wilman Gordillo - Last Filed: 01/23/22 05:29> ROS Statement: Those systems with pertinent positive or pertinent negative responses have been documented in the HPI. EKG Findings - EKG Comments: EKG Findings:: EKG done at 1:30 AM and read by the ED attending physician reveals a ventricular rate of 106. Sinus tachycardia, left atrial enlargement, normal axis, normal QRS morphology, no evidence of ST elevation. Minor changes when compared to the previous study of undetermined significance. <Marcelino Almanza - Last Filed: 01/23/22 03:00> Past Medical History Past Medical History: Coronary Artery Disease (CAD), Chest Pain / Angina, COPD, Deep Vein Thrombosis (DVT), GERD/Reflux, Hyperlipidemia, Hypertension, Osteoarthritis (OA), Thyroid Disorder Additional Past Medical History / Comment(s): Occasional palpitations, gastritis, small hiatal hernia, diverticular dx, pt states years ago he had PUD, chronic low back pain, chronic pain syndrome, migraines, DVT L arm, numb ness/tingling bilateral lower legs, bilateral past R hand fracture, arthritis multiple joints, hyperthyroid, sinus problems. History of Any Multi-Drug Resistant Organisms: None Reported Past Surgical History: Back Surgery, Cholecystectomy, Heart Catheterization With Stent, Orthopedic Surgery Additional Past Surgical History / Comment(s): EGDs/colonoscopies, multiple low back surgeries, bilateral arm and bilateral thigh surgeries for brown recluse spider bites with infection, morphine pain pump insertion and removal due to infection, PCI with stents, L rotator cuff repair, L knee arthroscopy, cervical fusion/cage, R cataract removal. 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 He lived to be 82 yrs old. Mother History Unknown: Yes Family Medical History: Hypertension, Myocardial Infarction ([place]) Additional Family Medical History / Comment(s): Mother of a [place] at the age of 55yrs. Brother(s) Family Medical History: Cancer, COPD Additional Family Medical History / Comment(s): Leukemia <Marcelino Almanza - Last Filed: 01/23/22 03:00> General Exam Limitations: physical limitation General appearance: alert, in no apparent distress Head exam: Present: atraumatic, normocephalic, normal inspection Eye exam: Present: normal appearance, PERRL, EOMI. Absent: scleral icterus, conjunctival injection, periorbital swelling ENT exam: Present: normal exam, mucous membranes moist Neck exam: Present: normal inspection. Absent: tenderness, meningismus, lymphadenopathy Respiratory exam: Present: normal lung sounds bilaterally. Absent: respiratory distress, wheezes, rales, rhonchi, stridor Cardiovascular Exam: Present: regular rate, normal rhythm, normal heart sounds. Absent: systolic murmur, diastolic murmur, rubs, gallop, clicks GI/Abdominal exam: Present: soft, normal bowel sounds. Absent: distended, tenderness, guarding, rebound, rigid Extremities exam: Present: normal inspection, full ROM, normal capillary refill. Absent: tenderness, pedal edema, joint swelling, calf tenderness Back exam: Present: normal inspection Neurological exam: Present: alert, oriented X3, CN II-XII intact Psychiatric exam: Present: normal affect, normal mood Skin exam: Present: warm, dry, intact, normal color. Absent: rash <Marcelino Almanza - Last Filed: 01/23/22 03:00> - General Exam Comments Initial Comments: Patient does not appear to be in any significant distress. (Marcelino Almanza) Course <Marcelino Almanza - Last Filed: 01/23/22 03:00> Vital Signs 01/23/22 01/23/22 01/23/22 01:34 01:39 03:44 Temperature 98.2 F Pulse Rate 102 H 98 Pulse Rate [ 101 H [employer] ] Respiratory 18 18 Rate Blood Pressure 141/83 119/83 O2 Sat by Pulse 97 98 Oximetry 01/23/22 04:00 Temperature Pulse Rate 98 Pulse Rate [ [employer] ] Respiratory 18 Rate Blood Pressure 144/65 O2 Sat by Pulse 98 Oximetry - Reevaluation(s) Reevaluation #1: 01/23/22 03:00 Medical record is reviewed Symptoms are unchanged, no relief with nitroglycerin, 1 dose of morphine ordered. Patient is informed of results and questions answered Patient in no distress (Marcelino Almanza) Chest Pain MDM <Marcelino Almanza - Last Filed: 01/23/22 03:00> - MDM This patient is presenting with left sided chest pressure, noted be tachycardic, patient's age 66. Patient had 2 recent admissions with cardiology consultation. Differential diagnosis includes chest wall pain, cardiac ischemia, pulmonary embolism. It is less likely infectious process as the patient's presentation does not appear to be consistent with this. Pneumothorax unlikely as patient is not tachypneic. Patient did not sustain any trauma. PERC = 2 Patient will be endorsed to the ED attending physician for further evaluation and disposition--0300 (Marcelino Almanza) Disposition <Marcelino Almanza - Last Filed: 01/23/22 03:00> Is patient prescribed a controlled substance at d/c from ED?: No <Wilman Gordillo - Last Filed: 01/23/22 05:29> Clinical Impression: Chest pain Disposition: HOME SELF-CARE Condition: Good Instructions (If sedation given, give patient instructions): Chest Pain (ED) Referrals: None,Stated [Primary Care Provider] - 1-2 days
[2022-01-23 02:28] LABS: Basophils % (A) 0 %; Eosinophils % (A) 1 %; HCT 37.4 % (39.0-53.0); HGB 12.4 gm/dL (13.0-17.5); Lymphocytes # (A) 0.9 k/uL (1.0-4.8); Lymphocytes % (A) 16 %; MCHC 33.2 g/dL (31.0-37.0); MCV 90.2 fL (80.0-100.0); Mean Platelet Volume 6.7; Monocytes # (A) 0.4 k/uL (0-1.0); Monocytes % (A) 8 %; Neutrophils # (A) 3.9 k/uL (1.3-7.7); Neutrophils % (A) 73 %; Platelet Count 326 k/uL (150-450); RBC 4.14 m/uL (4.30-5.90); RDW 14.3 % (11.5-15.5); WBC 5.4 k/uL (3.8-10.6)
[2022-01-23] MEDS ORDERED: ONDANSETRON 4 MG/2 ML VIAL IVP STA (02:50)
[2022-01-23] MEDS ORDERED: MORPHINE SULFATE 4 MG/ML SYRINGE IV STA (02:50)
[2022-01-23 03:10] LABS: Amphetamine Screen,Urine Not Detected (NotDetected); Benzodiazepines Screen,Urine Not Detected (NotDetected); Cocaine Screen,Urine Not Detected (NotDetected); Opiate Screen,Urine Detected (NotDetected); Phencyclidine Screen,Urine Not Detected (NotDetected)
[2022-01-23 03:11] LABS: Barbiturate Screen,Urine Not Detected (NotDetected); Methadone Screen, Urine Detected (NotDetected); Oxycodone Screen, Urine Detected (NotDetected); Tricyclic Antidepressant,Urine Not Detected (NotDetected); Urn Cannabinoid Scrn Not Detected (NotDetected)
[2022-01-23 03:13] LABS: Albumin 4.8 g/dL (3.5-5.0); Calcium 8.9 mg/dL (8.4-10.2); Magnesium 1.9 mg/dL (1.6-2.3); Potassium 3.3 mmol/L (3.5-5.1); Total Bilirubin 0.9 mg/dL (0.2-1.3); Total Protein 7.6 g/dL (6.3-8.2)
[2022-01-23 03:46] VITALS: PULSE 98
[2022-01-23 05:47] VITALS: BP 135/86
== END 2022-01-23 05:47 | disposition home or self-care (01) ==
LOC: EC 01:20
DX: R07.89 Other chest pain (principal); I25.10 Atherosclerotic heart disease of native coronary artery without angina pectoris; J44.9 Chronic obstructive pulmonary disease, unspecified; K21.9 Gastro-esophageal reflux disease without esophagitis; E78.5 Hyperlipidemia, unspecified; I10 Essential (primary) hypertension; M19.90 Unspecified osteoarthritis, unspecified site; E07.9 Disorder of thyroid, unspecified; Z79.02 Long term (current) use of antithrombotics/antiplatelets; Z88.6 Allergy status to analgesic agent; Z88.1 Allergy status to other antibiotic agents; Z86.718 Personal history of other venous thrombosis and embolism; Z90.49 Acquired absence of other specified parts of digestive tract; Z87.891 Personal history of nicotine dependence
CPT/HCPCS: 36415; 71045; 80053; 80306; 83735; 83880; 84484; 85025; 85379; 93005; 96374; 96375; 99285

== ENCOUNTER 2022-01-28 13:03 | Emergency (ER) | payer MEDICARE, OTHER ==
[2022-01-28 13:16] VITALS: BP 142/84; PULSE 88; RESP 20; TEMP 98.2
--- NOTE | 2022-01-28 15:29 | ED ---
General Adult HPI - General Chief complaint: Extremity Problem,Nontraumatic Stated complaint: Swollen hands & feet Time Seen by Provider: 01/28/22 14:59 Source: patient Mode of arrival: ambulatory Limitations: no limitations - History of Present Illness Initial comments: Dictation was produced using [employer] dictation software. please excuse any gram matical, word or spelling errors. Chief Complaint: 66-year-old male presents to the emergency department for bilateral lower extremity swelling and hand swelling. History of Present Illness: 66-year-old male who is well-known to emergency department for multiple visitations for myriad of complaints. Patient states here today for 2 days of lower extremity swelling and hand swelling. Patient has had swelling of his extremities in the past. Patient is prescribed Lasix. Most recently last month patient was prescribed 30 day course of 20 mg by mouth daily Lasix tablet. Patient has any chest pain or shortness of breath. Patient has any fever. No chest pain. Patient denies any polyuria. The ROS documented in this emergency department record has been reviewed and confirmed by me. Those systems with pertinent positive or negative responses have been documented in the HPI. All other systems are other negative and/or noncontributory. PHYSICAL EXAM: General Impression: Alert and oriented x3, not in acute distress HEENT: Normocephalic atraumatic, extra-ocular movements intact, pupils equal and reactive to light bilaterally, mucous membranes moist. Cardiovascular: Heart regular rate and rhythm Chest: Able to complete full sentences, no retractions, no tachypnea, lungs clear to auscultation bilaterally. Abdomen: abdomen soft, non-tender, non-distended, no organomegaly Musculoskeletal: Pulses present and equal in all extremities, 1+ pitting edema to the bilateral lower extremities, there is noticeable swelling in his hands. Motor: no focal deficits noted Neurological: CN II-XII grossly intact, no focal motor or sensory deficits noted Skin: Intact with no visualized rashes Psych: Normal affect and mood ED course: 66-year-old male presents emergency department for extremity swelling. He does have mild pitting edema. He does not have any features of heart failure. His lungs are clear to auscultation and has no respiratory symptoms. Vital signs upon arrival are within acceptable limits. Patient's well-appearing at the bedside. There is suspicion that patient had run out of his Lasix medication because his 30 day course of Lasix was prescribed on January 06. He was given a 30 day supply at the time. Patient has no respiratory symptoms. Laboratory evaluation obtained found to be in stable medical condition. Patient given 40 mg of oral Lasix. Patient will be discharged. He has normal renal markers. No signs of nephrotic syndrome. - Related Data Home Medications Medication Instructions Recorded Confirmed Morphine Sulfate ER [Ms Contin] 30 mg PO Q8H 10/10/17 01/15/22 tiZANidine [Zanaflex] 4 mg PO Q8H PRN 02/26/18 01/15/22 oxyCODONE-APAP 10-325MG [Percocet 1 tab PO Q8H 01/02/20 01/15/22 10-325 mg] Nitroglycerin Sl Tabs [Nitrostat] 0.4 mg SL Q5M PRN 07/13/21 01/15/22 Pregabalin [Lyrica] 100 mg PO BID 09/11/21 01/15/22 Clopidogrel [Plavix] 75 mg PO DAILY 01/04/22 01/15/22 SUMAtriptan succinate [Imitrex] 25 mg PO DAILY PRN 01/04/22 01/15/22 amLODIPine [Norvasc] 5 mg PO BID 01/04/22 01/15/22 hydrALAZINE HCL [Apresoline] 50 mg PO TID-W/MEALS 01/04/22 01/15/22 lisinopriL [Zestril] 40 mg PO DAILY 01/15/22 01/15/22 Previous Rx's Medication Instructions Recorded Atorvastatin [Lipitor] 80 mg PO HS 30 Days #30 tab 06/13/21 Fenofibrate 50 mg PO DAILY #30 capsule 01/06/22 Furosemide [Lasix] 20 mg PO DAILY 30 Days #30 tab 01/06/22 Metoprolol Succinate [Toprol XL] 150 mg PO DAILY 30 Days #45 tab 01/06/22 Pantoprazole Sodium [Protonix] 40 mg PO AC-BRKFST #14 tab 01/16/22 Allergies Allergy/AdvReac Type Severity Reaction Status Date / Time ibuprofen [From Motrin] Allergy Rash/Hives Verified 01/28/22 13:16 ketorolac tromethamine Allergy Rash/Hives Verified 01/28/22 13:16 [From Toradol] Review of Systems ROS Statement: Those systems with pertinent positive or pertinent negative responses have been documented in the HPI. ROS Other: All systems not noted in ROS Statement are negative. Past Medical History Past Medical History: Coronary Artery Disease (CAD), Chest Pain / Angina, COPD, Deep Vein Thrombosis (DVT), GERD/Reflux, Hyperlipidemia, Hypertension, Osteo arthritis (OA), Thyroid Disorder Additional Past Medical History / Comment(s): Occasional palpitations, gastritis, small hiatal hernia, diverticular dx, pt states years ago he had PUD, chronic low back pain, chronic pain syndrome, migraines, DVT L arm, numbness/tingling bilateral lower legs, bilateral past R hand fracture, arthritis multiple joints, hyperthyroid, sinus problems. History of Any Multi-Drug Resistant Organisms: None Reported Past Surgical History: Back Surgery, Cholecystectomy, Heart Catheterization With Stent, Orthopedic Surgery Additional Past Surgical History / Comment(s): EGDs/colonoscopies, multiple low back surgeries, bilateral arm and bilateral thigh surgeries for brown recluse spider bites with infection, morphine pain pump insertion and removal due to infection, PCI with stents, L rotator cuff repair, L knee arthroscopy, cervical fusion/cage, R cataract removal. 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 He lived to be 82 yrs old. Mother History Unknown: Yes Family Medical History: Hypertension, Myocardial Infarction ([place]) Additional Family Medical History / Comment(s): Mother of a [place] at the age of 55yrs. Brother(s) Family Medical History: Cancer, COPD Additional Family Medical History / Comment(s): Leukemia General Exam Limitations: no limitations Course Vital Signs 01/28/22 13:10 Temperature 98.2 F Pulse Rate 88 Respiratory 20 Rate Blood Pressure 142/84 O2 Sat by Pulse 98 Oximetry Medical Decision Making - Lab Data Result diagrams: 01/28/22 16:55 01/28/22 16:55 Lab Results 01/28/22 01/28/22 01/28/22 Range/Units 15:54 16:55 16:55 WBC 5.9 (3.8-10.6) k/uL RBC 3.86 L (4.30-5.90) m/uL Hgb 11.4 L (13.0-17.5) gm/dL Hct 36.3 L (39.0-53.0) % MCV 94.0 (80.0-100.0) fL MCH 29.5 (25.0-35.0) pg MCHC 31.4 (31.0-37.0) g/dL RDW 15.1 (11.5-15.5) % Plt Count 366 (150-450) k/uL MPV 7.1 Neutrophils % (Manual) 80 % Lymphocytes % 14 % Lymphocytes % (Manual) 13 % Monocytes % 6 % Monocytes % (Manual) 6 % Eosinophils % 1 % Eosinophils % (Manual) 2 % Basophils % 1 % Neutrophils # 4.6 (1.3-7.7) k/uL Neutrophils # (Manual) 4.72 (1.3-7.7) k/uL Lymphocytes # 0.8 L (1.0-4.8) k/uL Lymphocytes # (Manual) 0.77 L (1.0-4.8) k/uL Monocytes # 0.3 (0-1.0) k/uL Monocytes # (Manual) 0.35 (0-1.0) k/uL Eosinophils # 0.1 (0-0.7) k/uL Eosinophils # (Manual) 0.12 (0-0.7) k/uL Basophils # 0.0 (0-0.2) k/uL Nucleated RBCs 0 (0-0) /100 WBC Manual Slide Review Performed Sodium 140 (137-145) mmol/L Potassium 4.3 (3.5-5.1) mmol/L Chloride 111 H (98-107) mmol/L Carbon Dioxide 19 L (22-30) mmol/L Anion Gap 10 mmol/L BUN 8 L (9-20) mg/dL Creatinine 0.49 L (0.66-1.25) mg/dL Est GFR (CKD-EPI)AfAm >90 (>60 ml/min/1.73 sqM) Est GFR (CKD-EPI)NonAf >90 (>60 ml/min/1.73 sqM) Glucose 135 H (74-99) mg/dL Calcium 8.8 (8.4-10.2) mg/dL NT-Pro-B Natriuret Pep pg/mL Urine Color Light Yellow Urine Appearance Clear (Clear) Urine pH 5.5 (5.0-8.0) Ur Specific [place] 1.008 (1.001-1.035) Urine Protein Negative (Negative) Urine Glucose (UA) Negative (Negative) Urine Ketones Negative (Negative) Urine Blood Negative (Negative) Urine Nitrite Negative (Negative) Urine Bilirubin Negative (Negative) Urine Urobilinogen <2.0 (<2.0) mg/dL Ur Leukocyte Esterase Negative (Negative) 01/28/22 Range/Units 16:55 WBC (3.8-10.6) k/uL RBC (4.30-5.90) m/uL Hgb (13.0-17.5) gm/dL Hct (39.0-53.0) % MCV (80.0-100.0) fL MCH (25.0-35.0) pg MCHC (31.0-37.0) g/dL RDW (11.5-15.5) % Plt Count (150-450) k/uL MPV Neutrophils % (Manual) % Lymphocytes % % Lymphocytes % (Manual) % Monocytes % % Monocytes % (Manual) % Eosinophils % % Eosinophils % (Manual) % Basophils % % Neutrophils # (1.3-7.7) k/uL Neutrophils # (Manual) (1.3-7.7) k/uL Lymphocytes # (1.0-4.8) k/uL Lymphocytes # (Manual) (1.0-4.8) k/uL Monocytes # (0-1.0) k/uL Monocytes # (Manual) (0-1.0) k/uL Eosinophils # (0-0.7) k/uL Eosinophils # (Manual) (0-0.7) k/uL Basophils # (0-0.2) k/uL Nucleated RBCs (0-0) /100 WBC Manual Slide Review Sodium (137-145) mmol/L Potassium (3.5-5.1) mmol/L Chloride (98-107) mmol/L Carbon Dioxide (22-30) mmol/L Anion Gap mmol/L BUN (9-20) mg/dL Creatinine (0.66-1.25) mg/dL Est GFR (CKD-EPI)AfAm (>60 ml/min/1.73 sqM) Est GFR (CKD-EPI)NonAf (>60 ml/min/1.73 sqM) Glucose (74-99) mg/dL Calcium (8.4-10.2) mg/dL NT-Pro-B Natriuret Pep 759 pg/mL Urine Color Urine Appearance (Clear) Urine pH (5.0-8.0) Ur Specific [place] (1.001-1.035) Urine Protein (Negative) Urine Glucose (UA) (Negative) Urine Ketones (Negative) Urine Blood (Negative) Urine Nitrite (Negative) Urine Bilirubin (Negative) Urine Urobilinogen (<2.0) mg/dL Ur Leukocyte Esterase (Negative) Disposition Clinical Impression: Extremity edema Disposition: HOME SELF-CARE Condition: Good Instructions (If sedation given, give patient instructions): Leg Edema (ED) Is patient prescribed a controlled substance at d/c from ED?: No Referrals: None,Stated [Primary Care Provider] - 1-2 days
[2022-01-28 16:25] LABS: Appearance,Urine Clear (Clear); Bilirubin,Urine Negative (Negative); Blood,Urine Negative (Negative); Color,Urine Light Yellow; Glucose,Urine (UA) Negative (Negative); Ketones,Urine Negative (Negative); Leukocyte Esterase,Urine Negative (Negative); Nitrite,Urine Negative (Negative); PH, Urine 5.5 (5.0-8.0); Protein,Urine Negative (Negative); Specific Gravity,Urine 1.008 (1.001-1.035); Urobilinogen,Urine <2.0 mg/dL (<2.0)
[2022-01-28] MEDS ORDERED: HYDROmorphone 0.5 MG/0.5 ML SYRINGE IM STA (17:11)
[2022-01-28 17:16] LABS: African American GFR (CKD) >90 (>60 ml/min/1.73 sqM); Anion Gap 10 mmol/L; Blood Urea Nitrogen 8 mg/dL (9-20); Calcium 8.8 mg/dL (8.4-10.2); Carbon Dioxide 19 mmol/L (22-30); Chloride 111 mmol/L (98-107); Glucose 135 mg/dL (74-99); Non-African American GFR(CKD) >90 (>60 ml/min/1.73 sqM); Sodium 140 mmol/L (137-145)
[2022-01-28 17:20] LABS: Basophils % (A) 1 %; Eosinophils # (A) 0.1 k/uL (0-0.7); Eosinophils % (A) 1 %; HCT 36.3 % (39.0-53.0); HGB 11.4 gm/dL (13.0-17.5); Lymphocytes # (A) 0.8 k/uL (1.0-4.8); Lymphocytes % (A) 14 %; MCH 29.5 pg (25.0-35.0); MCHC 31.4 g/dL (31.0-37.0); Mean Platelet Volume 7.1; Monocytes # (A) 0.3 k/uL (0-1.0); Monocytes % (A) 6 %; Neutrophils # (A) 4.6 k/uL (1.3-7.7); Platelet Count 366 k/uL (150-450); RBC 3.86 m/uL (4.30-5.90); RDW 15.1 % (11.5-15.5); WBC 5.9 k/uL (3.8-10.6)
[2022-01-28 17:35] LABS: Neutrophils % (M) 80 %; Nucleated Red Blood Cells 0 /100 WBC (0-0); Total Cells Counted 200
[2022-01-28 17:39] LABS: Eosinophils # (M) 0.12 k/uL (0-0.7); Lymphocytes # (M) 0.77 k/uL (1.0-4.8); Monocytes # (M) 0.35 k/uL (0-1.0); Neutrophils # (M) 4.72 k/uL (1.3-7.7)
[2022-01-28 17:47] LABS: Potassium 4.3 mmol/L (3.5-5.1)
== END 2022-01-28 18:08 | disposition home or self-care (01) ==
LOC: EC 13:03
DX: R60.0 Localized edema (principal); I25.10 Atherosclerotic heart disease of native coronary artery without angina pectoris; J44.9 Chronic obstructive pulmonary disease, unspecified; K21.9 Gastro-esophageal reflux disease without esophagitis; E78.5 Hyperlipidemia, unspecified; I10 Essential (primary) hypertension; M19.90 Unspecified osteoarthritis, unspecified site; E07.9 Disorder of thyroid, unspecified; Z79.02 Long term (current) use of antithrombotics/antiplatelets; Z88.1 Allergy status to other antibiotic agents; Z88.6 Allergy status to analgesic agent; Z86.718 Personal history of other venous thrombosis and embolism; Z90.49 Acquired absence of other specified parts of digestive tract; Z87.891 Personal history of nicotine dependence
CPT/HCPCS: 99283; 96372; 36415; 83880; 80048; 85025; 81003; J1170

== ENCOUNTER 2022-02-01 18:51 | Emergency (ER) | payer MEDICARE, OTHER ==
[2022-02-01 19:01] VITALS: BP 155/92; PULSE 74; RESP 20; TEMP 97.2
[2022-02-01] MEDS ORDERED: predniSONE 20 MG TAB PO STA (20:28)
--- NOTE | 2022-02-01 20:54 | ED ---
General Adult HPI - General Chief complaint: Shortness of Breath Stated complaint: Legs/hands swelling Time Seen by Provider: 02/01/22 20:10 Source: patient, RN notes reviewed Mode of arrival: ambulatory Limitations: no limitations - History of Present Illness Initial comments: This is a 66-year-old male who is well-known to emergency department. He pr esents to the emergency department again today complaining of painful joints with mild swelling. Patient states he has aching in both knees as well as both ankles. He also states he has some aching in her left hand and wrist. Patient has no history of inflammatory arthritis. No history of rheumatoid arthritis. Patient denies any recent infectious process. No headache, no fever or chills, no changes in vision or hearing, no sore throat or difficulty with speech, no neck pain, no chest pain or shortness of breath, no abdominal pain, no nausea or vomiting, no changes in urination or bowel movements, no numbness or tingling, no skin rashes or lesions. Patient is complaining of some chronic pain otherwise but states this is not out of the ordinary for him. Patient has chronic and intermittent daily chest wall pains which she states is actually unchanged. Patient's visit today was for the arthralgia. - Related Data Home Medications Medication Instructions Recorded Confirmed Morphine Sulfate ER [Ms Contin] 30 mg PO Q8H 10/10/17 01/15/22 tiZANidine [Zanaflex] 4 mg PO Q8H PRN 02/26/18 01/15/22 oxyCODONE-APAP 10-325MG [Percocet 1 tab PO Q8H 01/02/20 01/15/22 10-325 mg] Nitroglycerin Sl Tabs [Nitrostat] 0.4 mg SL Q5M PRN 07/13/21 01/15/22 Pregabalin [Lyrica] 100 mg PO BID 09/11/21 01/15/22 Clopidogrel [Plavix] 75 mg PO DAILY 01/04/22 01/15/22 SUMAtriptan succinate [Imitrex] 25 mg PO DAILY PRN 01/04/22 01/15/22 amLODIPine [Norvasc] 5 mg PO BID 01/04/22 01/15/22 hydrALAZINE HCL [Apresoline] 50 mg PO TID-W/MEALS 01/04/22 01/15/22 lisinopriL [Zestril] 40 mg PO DAILY 01/15/22 01/15/22 Previous Rx's Medication Instructions Recorded Atorvastatin [Lipitor] 80 mg PO HS 30 Days #30 tab 06/13/21 Fenofibrate 50 mg PO DAILY #30 capsule 01/06/22 Furosemide [Lasix] 20 mg PO DAILY 30 Days #30 tab 01/06/22 Metoprolol Succinate [Toprol XL] 150 mg PO DAILY 30 Days #45 tab 01/06/22 Pantoprazole Sodium [Protonix] 40 mg PO AC-BRKFST #14 tab 01/16/22 predniSONE 50 mg PO DAILY #5 tab 02/01/22 Allergies Allergy/AdvReac Type Severity Reaction Status Date / Time ibuprofen [From Motrin] Allergy Rash/Hives Verified 02/01/22 19:01 ketorolac tromethamine Allergy Rash/Hives Verified 02/01/22 19:01 [From Toradol] Review of Systems ROS Statement: Those systems with pertinent positive or pertinent negative responses have been documented in the HPI. ROS Other: All systems not noted in ROS Statement are negative. Past Medical History Past Medical History: Coronary Artery Disease (CAD), Chest Pain / Angina, COPD, Deep Vein Thrombosis (DVT), GERD/Reflux, Hyperlipidemia, Hypertension, Osteoarthritis (OA), Thyroid Disorder Additional Past Medical History / Comment(s): Occasional palpitations, gastritis, small hiatal hernia, diverticular dx, pt states years ago he had PUD, chronic low back pain, chronic pain syndrome, migraines, DVT L arm, numbness/tingling bilateral lower legs, bilateral past R hand fracture, arthritis multiple joints, hyperthyroid, sinus problems. History of Any Multi-Drug Resistant Organisms: None Reported Past Surgical History: Back Surgery, Cholecystectomy, Heart Catheterization With Stent, Orthopedic Surgery Additional Past Surgical History / Comment(s): EGDs/colonoscopies, multiple low back surgeries, bilateral arm and bilateral thigh surgeries for brown recluse spider bites with infection, morphine pain pump insertion and removal due to infection, PCI with stents, L rotator cuff repair, L knee arthroscopy, cervical fusion/cage, R cataract removal. 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 He lived to be 82 yrs old. Mother History Unknown: Yes Family Medical History: Hypertension, Myocardial Infarction ([place]) Additional Family Medical History / Comment(s): Mother of a [place] at the age of 55yrs. Brother(s) Family Medical History: Cancer, COPD Additional Family Medical History / Comment(s): Leukemia General Exam - General Exam Comments Initial Comments: Healthy-appearing 66-year-old male in no distress. Vital signs stable, patient afebrile. No evidence of systemic illness Limitations: no limitations General appearance: alert, in no apparent distress Head exam: Present: atraumatic, normocephalic, normal inspection Eye exam: Present: normal appearance, PERRL, EOMI. Absent: scleral icterus, conjunctival injection, periorbital swelling ENT exam: Present: normal exam, mucous membranes moist Neck exam: Present: normal inspection. Absent: tenderness, meningismus, lymphadenopathy Respiratory exam: Present: normal lung sounds bilaterally. Absent: respiratory distress, wheezes, rales, rhonchi, stridor Cardiovascular Exam: Present: regular rate, normal rhythm, normal heart sounds. Absent: systolic murmur, diastolic murmur, rubs, gallop, clicks GI/Abdominal exam: Present: soft, normal bowel sounds. Absent: distended, tenderness, guarding, rebound, rigid Extremities exam: Present: normal inspection, full ROM, normal capillary refill, joint swelling (Mild joint swelling in the bilateral knees, bilateral ankles, left wrist. No erythema. Does not appear to be infectious as the patient is afebrile.), other (Patient may have minimal edema to bilateral knees as well as ankles., No erythema. No evidence of significant effusion. Minimal soft tissue tenderness. Also involves left wrist.). Absent: tenderness, pedal edema, calf tenderness Back exam: Present: normal inspection Neurological exam: Present: alert, oriented X3, CN II-XII intact Psychiatric exam: Present: normal affect, normal mood Skin exam: Present: warm, dry, intact, normal color. Absent: rash Course Vital Signs 02/01/22 18:57 Temperature 97.2 F L Pulse Rate 74 Respiratory 20 Rate Blood Pressure 155/92 O2 Sat by Pulse 99 Oximetry Medical Decision Making - Medical Decision Making Patient presents with polyarthralgia. Patient looks well otherwise. Does not appear to be ill or toxic. Patient is refusing blood work. Patient states that he does not want to get poked. Patient requesting medications only. Return to treat the patient with corticosteroids and for prednisone. At that the patient is lucid, alert and oriented 4, able make his own medical decisions. I did discuss risks of misdiagnosis or worsening condition. Patient fully aware of the risk factors and elects to follow-up as an outpatient. Patient's presentation is not consistent with infectious process. Patient was told to return to the ER for any signs or symptoms worsen. Told to return immediately if any other problems arise. All questions answered. Treatment plan discussed. Patient in agreement Every effort has been made to ensure accuracy of this dictation. However, due to the limitations of electronic medical records and dictation devices, errors in charting still occur. Disposition Clinical Impression: Arthralgia Narrative: Arthralgia of the bilateral knees, ankles, and wrists. Disposition: HOME SELF-CARE Condition: Good Instructions (If sedation given, give patient instructions): Arthralgia (ED) Additional Instructions: Make an appointment with the cello teacher as discussed. Follow-up with your regular physician as directed. Return to the ER immediately if any symptoms worsen, new symptoms arise, or any other problems develop. Take the prednisone as directed. Prescriptions: predniSONE 50 mg PO DAILY #5 tab Is patient prescribed a controlled substance at d/c from ED?: No Referrals: Елена Fernandes MD [STAFF PHYSICIAN] - 02/03/22 Time of Disposition: 20:53
== END 2022-02-01 21:12 | disposition home or self-care (01) ==
LOC: EC 18:51
DX: M25.562 Pain in left knee (principal); M25.561 Pain in right knee; M25.532 Pain in left wrist; M25.531 Pain in right wrist; J44.9 Chronic obstructive pulmonary disease, unspecified; I10 Essential (primary) hypertension; E78.5 Hyperlipidemia, unspecified; K21.9 Gastro-esophageal reflux disease without esophagitis; I25.10 Atherosclerotic heart disease of native coronary artery without angina pectoris; M19.90 Unspecified osteoarthritis, unspecified site; Z87.891 Personal history of nicotine dependence; Z88.6 Allergy status to analgesic agent; Z79.899 Other long term (current) drug therapy; Z79.02 Long term (current) use of antithrombotics/antiplatelets
CPT/HCPCS: 99282; J7512

== ENCOUNTER 2022-02-18 10:35 | Emergency (ER) | payer MEDICARE, OTHER ==
[2022-02-18 10:38] VITALS: RESP 18
[2022-02-18] MEDS ORDERED: HYDROmorphone 1 MG/ML 1 ML SYRINGE IM STA (11:11)
[2022-02-18] MEDS ORDERED: ONDANSETRON 4 MG/2 ML VIAL IM STA (11:11)
--- NOTE | 2022-02-18 11:13 | ED ---
Headache HPI - General Chief Complaint: Headache Stated Complaint: headache Time Seen by Provider: 02/18/22 10:43 Source: patient, RN notes reviewed Mode of arrival: ambulatory Limitations: no limitations - History of Present Illness Initial Comments: 66-year-old male presents emergency Department chief complaint of migraine headache. This this is normal Headache. Patient states he does have nausea vomiting. Patient denies any trauma denies fevers chills no neck pain or neck stiffness. Patient states it's more of a diffuse type headache. Patient offers no other associated complaints. - Related Data Home Medications Medication Instructions Recorded Confirmed Morphine Sulfate ER [Ms Contin] 30 mg PO Q8H 10/10/17 01/15/22 tiZANidine [Zanaflex] 4 mg PO Q8H PRN 02/26/18 01/15/22 oxyCODONE-APAP 10-325MG [Percocet 1 tab PO Q8H 01/02/20 01/15/22 10-325 mg] Nitroglycerin Sl Tabs [Nitrostat] 0.4 mg SL Q5M PRN 07/13/21 01/15/22 Pregabalin [Lyrica] 100 mg PO BID 09/11/21 01/15/22 Clopidogrel [Plavix] 75 mg PO DAILY 01/04/22 01/15/22 SUMAtriptan succinate [Imitrex] 25 mg PO DAILY PRN 01/04/22 01/15/22 amLODIPine [Norvasc] 5 mg PO BID 01/04/22 01/15/22 hydrALAZINE HCL [Apresoline] 50 mg PO TID-W/MEALS 01/04/22 01/15/22 lisinopriL [Zestril] 40 mg PO DAILY 01/15/22 01/15/22 Previous Rx's Medication Instructions Recorded Atorvastatin [Lipitor] 80 mg PO HS 30 Days #30 tab 06/13/21 Fenofibrate 50 mg PO DAILY #30 capsule 01/06/22 Furosemide [Lasix] 20 mg PO DAILY 30 Days #30 tab 01/06/22 Metoprolol Succinate [Toprol XL] 150 mg PO DAILY 30 Days #45 tab 01/06/22 Pantoprazole Sodium [Protonix] 40 mg PO AC-BRKFST #14 tab 01/16/22 predniSONE 50 mg PO DAILY #5 tab 02/01/22 Allergies Allergy/AdvReac Type Severity Reaction Status Date / Time ibuprofen [From Motrin] Allergy Rash/Hives Verified 02/18/22 10:38 ketorolac tromethamine Allergy Rash/Hives Verified 02/18/22 10:38 [From Toradol] Review of Systems ROS Statement: Those systems with pertinent positive or pertinent negative responses have been documented in the HPI. ROS Other: All systems not noted in ROS Statement are negative. Past Medical History Past Medical History: Coronary Artery Disease (CAD), Chest Pain / Angina, COPD, Deep Vein Thrombosis (DVT), GERD/Reflux, Hyperlipidemia, Hypertension, Osteoarthritis (OA), Thyroid Disorder Additional Past Medical History / Comment(s): Occasional palpitations, gastritis, small hiatal hernia, diverticular dx, pt states years ago he had PUD, chronic low back pain, chronic pain syndrome, migraines, DVT L arm, numbness/tingling bilateral lower legs, bilateral past R hand fracture, arthritis multiple joints, hyperthyroid, sinus problems. History of Any Multi-Drug Resistant Organisms: None Reported Past Surgical History: Back Surgery, Cholecystectomy, Heart Catheterization With Stent, Orthopedic Surgery Additional Past Surgical History / Comment(s): EGDs/colonoscopies, multiple low back surgeries, bilateral arm and bilateral thigh surgeries for brown recluse spider bites with infection, morphine pain pump insertion and removal due to infection, PCI with stents, L rotator cuff repair, L knee arthroscopy, cervical fusion/cage, R cataract removal. 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 He lived to be 82 yrs old. Mother History Unknown: Yes Family Medical History: Hypertension, Myocardial Infarction ([place]) Additional Family Medical History / Comment(s): Mother of a [place] at the age of 55yrs. Brother(s) Family Medical History: Cancer, COPD Additional Family Medical History / Comment(s): Leukemia General Exam Limitations: no limitations General appearance: alert, in no apparent distress Head exam: Present: atraumatic, normocephalic, normal inspection Eye exam: Present: normal appearance, PERRL, EOMI. Absent: scleral icterus, co njunctival injection, periorbital swelling ENT exam: Present: normal exam, mucous membranes moist Neck exam: Present: normal inspection, full ROM. Absent: tenderness, meningismus, lymphadenopathy Respiratory exam: Present: normal lung sounds bilaterally. Absent: respiratory distress, wheezes, rales, rhonchi, stridor Cardiovascular Exam: Present: regular rate, normal rhythm, normal heart sounds. Absent: systolic murmur, diastolic murmur, rubs, gallop, clicks Neurological exam: Present: alert, oriented X3, CN II-XII intact, reflexes normal. Absent: motor sensory deficit Course Vital Signs 02/18/22 10:36 Temperature 97.2 F L Pulse Rate 105 H Respiratory 18 Rate Blood Pressure 170/90 O2 Sat by Pulse 98 Oximetry Medical Decision Making - Medical Decision Making Patient was treated for his normal migraine headache. Has no red flag symptoms has no neurological deficits. Patient agrees with plan patient was discharged in stable condition. Disposition Clinical Impression: Migraine headache Disposition: HOME SELF-CARE Condition: Stable Instructions (If sedation given, give patient instructions): Acute Headache (ED) Additional Instructions: Please return to the Emergency Department if symptoms worsen or any other concerns. Is patient prescribed a controlled substance at d/c from ED?: No Referrals: None,Stated [Primary Care Provider] - 1-2 days Time of Disposition: 11:13
[2022-02-18 11:52] VITALS: BP 156/90; PULSE 96; TEMP 98.2
== END 2022-02-18 11:52 | disposition home or self-care (01) ==
LOC: EC 10:35
DX: G43.909 Migraine, unspecified, not intractable, without status migrainosus (principal); I10 Essential (primary) hypertension; J44.9 Chronic obstructive pulmonary disease, unspecified; I25.10 Atherosclerotic heart disease of native coronary artery without angina pectoris; K21.9 Gastro-esophageal reflux disease without esophagitis; E78.5 Hyperlipidemia, unspecified; M19.90 Unspecified osteoarthritis, unspecified site; Z86.718 Personal history of other venous thrombosis and embolism; Z87.891 Personal history of nicotine dependence; Z79.02 Long term (current) use of antithrombotics/antiplatelets; Z79.899 Other long term (current) drug therapy
CPT/HCPCS: 99283; 96372 ×2; J2405; J1170

== ENCOUNTER 2022-02-26 03:57 | Observation (INO) | payer MEDICARE, OTHER ==
[2022-02-26] MEDS ORDERED: ACETAMINOPHEN TAB 500 MG TAB PO STA (04:06)
--- NOTE | 2022-02-26 04:06 | ED ---
Extremity Problem HPI - General Chief complaint: Extremity Problem,Nontraumatic Stated complaint: Leg Swelling Time Seen by Provider: 02/26/22 03:59 Source: EMS Mode of arrival: EMS Limitations: no limitations - History of Present Illness MD Complaint: extremity pain, extremity swelling, joint swelling -: days(s) Location: left, right, bilateral lower extremity Radiation: proximal Severity scale (1-10): 8 Quality: aching Consistency: constant Improves with: nothing Worsens with: nothing Associated Symptoms: denies other symptoms - Related Data Home Medications Medication Instructions Recorded Confirmed Morphine Sulfate ER [Ms Contin] 30 mg PO Q8H 10/10/17 01/15/22 tiZANidine [Zanaflex] 4 mg PO Q8H PRN 02/26/18 01/15/22 oxyCODONE-APAP 10-325MG [Percocet 1 tab PO Q8H 01/02/20 01/15/22 10-325 mg] Nitroglycerin Sl Tabs [Nitrostat] 0.4 mg SL Q5M PRN 07/13/21 01/15/22 Pregabalin [Lyrica] 100 mg PO BID 09/11/21 01/15/22 Clopidogrel [Plavix] 75 mg PO DAILY 01/04/22 01/15/22 SUMAtriptan succinate [Imitrex] 25 mg PO DAILY PRN 01/04/22 01/15/22 amLODIPine [Norvasc] 5 mg PO BID 01/04/22 01/15/22 hydrALAZINE HCL [Apresoline] 50 mg PO TID-W/MEALS 01/04/22 01/15/22 lisinopriL [Zestril] 40 mg PO DAILY 01/15/22 01/15/22 Previous Rx's Medication Instructions Recorded Atorvastatin [Lipitor] 80 mg PO HS 30 Days #30 tab 06/13/21 Fenofibrate 50 mg PO DAILY #30 capsule 01/06/22 Furosemide [Lasix] 20 mg PO DAILY 30 Days #30 tab 01/06/22 Metoprolol Succinate [Toprol XL] 150 mg PO DAILY 30 Days #45 tab 01/06/22 Pantoprazole Sodium [Protonix] 40 mg PO AC-BRKFST #14 tab 01/16/22 predniSONE 50 mg PO DAILY #5 tab 02/01/22 Ondansetron Odt [Zofran Odt] 4 mg PO Q8HR PRN #10 tab 02/18/22 Allergies Allergy/AdvReac Type Severity Reaction Status Date / Time ibuprofen [From Motrin] Allergy Rash/Hives Verified 02/26/22 04:04 ketorolac tromethamine Allergy Rash/Hives Verified 02/26/22 04:04 [From Toradol] Review of Systems ROS Statement: Those systems with pertinent positive or pertinent negative responses have been documented in the HPI. ROS Other: All systems not noted in ROS Statement are negative. Past Medical History Past Medical History: Coronary Artery Disease (CAD), Chest Pain / Angina, COPD, Deep Vein Thrombosis (DVT), GERD/Reflux, Hyperlipidemia, Hypertension, O steoarthritis (OA), Thyroid Disorder Additional Past Medical History / Comment(s): Occasional palpitations, gastritis, small hiatal hernia, diverticular dx, pt states years ago he had PUD, chronic low back pain, chronic pain syndrome, migraines, DVT L arm, numbness/tingling bilateral lower legs, bilateral past R hand fracture, arthritis multiple joints, hyperthyroid, sinus problems. History of Any Multi-Drug Resistant Organisms: None Reported Past Surgical History: Back Surgery, Cholecystectomy, Heart Catheterization With Stent, Orthopedic Surgery Additional Past Surgical History / Comment(s): EGDs/colonoscopies, multiple low back surgeries, bilateral arm and bilateral thigh surgeries for brown recluse spider bites with infection, morphine pain pump insertion and removal due to infection, PCI with stents, L rotator cuff repair, L knee arthroscopy, cervical fusion/cage, R cataract removal. 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 He lived to be 82 yrs old. Mother History Unknown: Yes Family Medical History: Hypertension, Myocardial Infarction ([place]) Additional Family Medical History / Comment(s): Mother of a [place] at the age of 55yrs. Brother(s) Family Medical History: Cancer, COPD Additional Family Medical History / Comment(s): Leukemia General Exam Limitations: no limitations Course Vital Signs 02/26/22 04:01 Temperature 100 F H Pulse Rate 103 H Respiratory 20 Rate Blood Pressure 140/84 O2 Sat by Pulse 96 Oximetry - Reevaluation(s) Reevaluation #1: 02/26/22 05:33 Medical record is reviewed Reevaluation #2: 02/26/22 05:33 Patient has no change in symptoms here in the ER Reevaluation #3: 02/26/22 05:33 Patient informed results and questions answered - Consultations Consultation #1: Spoke with [facility] physicians who agree with admit this patient Medical Decision Making - Lab Data Result diagrams: 02/26/22 04:37 02/26/22 04:37 Lab Results 02/26/22 02/26/22 02/26/22 Range/Units 04:37 04:37 04:37 WBC 3.4 L (3.8-10.6) k/uL RBC 3.97 L (4.30-5.90) m/uL Hgb 11.7 L (13.0-17.5) gm/dL Hct 37.2 L (39.0-53.0) % MCV 93.8 (80.0-100.0) fL MCH 29.5 (25.0-35.0) pg MCHC 31.4 (31.0-37.0) g/dL RDW 15.1 (11.5-15.5) % Plt Count 323 (150-450) k/uL MPV 6.5 Neutrophils % 53 % Lymphocytes % 32 % Monocytes % 9 % Eosinophils % 1 % Basophils % 1 % Neutrophils # 1.8 (1.3-7.7) k/uL Lymphocytes # 1.1 (1.0-4.8) k/uL Monocytes # 0.3 (0-1.0) k/uL Eosinophils # 0.0 (0-0.7) k/uL Basophils # 0.0 (0-0.2) k/uL Hypochromasia Slight PT 9.9 (9.0-12.0) sec INR 0.9 (<1.2) APTT 24.5 (22.0-30.0) sec Sodium (137-145) mmol/L Potassium (3.5-5.1) mmol/L Chloride (98-107) mmol/L Carbon Dioxide (22-30) mmol/L Anion Gap mmol/L BUN (9-20) mg/dL Creatinine (0.66-1.25) mg/dL Est GFR (CKD-EPI)AfAm (>60 ml/min/1.73 sqM) Est GFR (CKD-EPI)NonAf (>60 ml/min/1.73 sqM) Glucose (74-99) mg/dL Calcium (8.4-10.2) mg/dL Phosphorus (2.5-4.5) mg/dL Magnesium (1.6-2.3) mg/dL Total Bilirubin (0.2-1.3) mg/dL AST (17-59) U/L ALT (4-49) U/L Alkaline Phosphatase (38-126) U/L Total Protein (6.3-8.2) g/dL Albumin (3.5-5.0) g/dL Urine Color Yellow Urine Appearance Clear (Clear) Urine pH 5.5 (5.0-8.0) Ur Specific [place] 1.017 (1.001-1.035) Urine Protein Negative (Negative) Urine Glucose (UA) Negative (Negative) Urine Ketones Negative (Negative) Urine Blood Negative (Negative) Urine Nitrite Negative (Negative) Urine Bilirubin Negative (Negative) Urine Urobilinogen <2.0 (<2.0) mg/dL Ur Leukocyte Esterase Negative (Negative) 02/26/22 Range/Units 04:37 WBC (3.8-10.6) k/uL RBC (4.30-5.90) m/uL Hgb (13.0-17.5) gm/dL Hct (39.0-53.0) % MCV (80.0-100.0) fL MCH (25.0-35.0) pg MCHC (31.0-37.0) g/dL RDW (11.5-15.5) % Plt Count (150-450) k/uL MPV Neutrophils % % Lymphocytes % % Monocytes % % Eosinophils % % Basophils % % Neutrophils # (1.3-7.7) k/uL Lymphocytes # (1.0-4.8) k/uL Monocytes # (0-1.0) k/uL Eosinophils # (0-0.7) k/uL Basophils # (0-0.2) k/uL Hypochromasia PT (9.0-12.0) sec INR (<1.2) APTT (22.0-30.0) sec Sodium 136 L (137-145) mmol/L Potassium 4.4 (3.5-5.1) mmol/L Chloride 104 (98-107) mmol/L Carbon Dioxide 23 (22-30) mmol/L Anion Gap 9 mmol/L BUN 13 (9-20) mg/dL Creatinine 0.78 (0.66-1.25) mg/dL Est GFR (CKD-EPI)AfAm >90 (>60 ml/min/1.73 sqM) Est GFR (CKD-EPI)NonAf >90 (>60 ml/min/1.73 sqM) Glucose 115 H (74-99) mg/dL Calcium 8.8 (8.4-10.2) mg/dL Phosphorus 3.6 (2.5-4.5) mg/dL Magnesium 1.8 (1.6-2.3) mg/dL Total Bilirubin 0.4 (0.2-1.3) mg/dL AST 21 (17-59) U/L ALT 9 (4-49) U/L Alkaline Phosphatase 65 (38-126) U/L Total Protein 7.2 (6.3-8.2) g/dL Albumin 4.4 (3.5-5.0) g/dL Urine Color Urine Appearance (Clear) Urine pH (5.0-8.0) Ur Specific [place] (1.001-1.035) Urine Protein (Negative) Urine Glucose (UA) (Negative) Urine Ketones (Negative) Urine Blood (Negative) Urine Nitrite (Negative) Urine Bilirubin (Negative) Urine Urobilinogen (<2.0) mg/dL Ur Leukocyte Esterase (Negative) - EKG Data -: EKG Interpreted by Me (EKG is sinus rhythm 83 MO 132 QRS 90 QTC 411) Disposition Clinical Impression: Bilateral lower extremity edema Disposition: ADMITTED IP TO THIS [facility] Condition: Good Is patient prescribed a controlled substance at d/c from ED?: No Referrals: None,Stated [Primary Care Provider] - 1-2 days
[2022-02-26] MEDS ORDERED: diphenhydrAMINE 50 MG/ML 1 ML VIAL IVP STA (04:41)
[2022-02-26] MEDS ORDERED: HYDROmorphone 1 MG/ML 1 ML SYRINGE IVP STA ×2 (04:41→06:17)
--- NOTE | 2022-02-26 05:02 | XR ---
EXAMINATION TYPE: XR chest 1V portable DATE OF EXAM: 02/26/2022 COMPARISON: 01/23/2022 HISTORY: Chest pain TECHNIQUE: FINDINGS: Heart and mediastinum are normal. Lungs are clear. Diaphragm is normal. Bony thorax appears normal. There are few small calcified granulomata at the pulmonary sameera. IMPRESSION: No active cardiopulmonary disease. No change.
[2022-02-26 05:09] LABS: Appearance,Urine Clear (Clear); Bilirubin,Urine Negative (Negative); Blood,Urine Negative (Negative); Color,Urine Yellow; Glucose,Urine (UA) Negative (Negative); Ketones,Urine Negative (Negative); Leukocyte Esterase,Urine Negative (Negative); Nitrite,Urine Negative (Negative); PH, Urine 5.5 (5.0-8.0); Protein,Urine Negative (Negative); Specific Gravity,Urine 1.017 (1.001-1.035); Urobilinogen,Urine <2.0 mg/dL (<2.0)
[2022-02-26 05:11] LABS: Basophils % (A) 1 %; Eosinophils % (A) 1 %; HCT 37.2 % (39.0-53.0); HGB 11.7 gm/dL (13.0-17.5); Hypochromasia Slight; Lymphocytes # (A) 1.1 k/uL (1.0-4.8); Lymphocytes % (A) 32 %; MCH 29.5 pg (25.0-35.0); MCHC 31.4 g/dL (31.0-37.0); MCV 93.8 fL (80.0-100.0); Mean Platelet Volume 6.5; Monocytes # (A) 0.3 k/uL (0-1.0); Monocytes % (A) 9 %; Neutrophils # (A) 1.8 k/uL (1.3-7.7); Neutrophils % (A) 53 %; Platelet Count 323 k/uL (150-450); RBC 3.97 m/uL (4.30-5.90); RDW 15.1 % (11.5-15.5); WBC 3.4 k/uL (3.8-10.6)
[2022-02-26 05:17] LABS: INR 0.9 (<1.2); Partial Thromboplastin Time 24.5 sec (22.0-30.0); Prothrombin Time 9.9 sec (9.0-12.0)
[2022-02-26 05:23] LABS: ALT 9 U/L (4-49); AST 21 U/L (17-59); African American GFR (CKD) >90 (>60 ml/min/1.73 sqM); Albumin 4.4 g/dL (3.5-5.0); Alkaline Phosphatase 65 U/L (38-126); Anion Gap 9 mmol/L; Blood Urea Nitrogen 13 mg/dL (9-20); Calcium 8.8 mg/dL (8.4-10.2); Carbon Dioxide 23 mmol/L (22-30); Chloride 104 mmol/L (98-107); Glucose 115 mg/dL (74-99); Magnesium 1.8 mg/dL (1.6-2.3); Non-African American GFR(CKD) >90 (>60 ml/min/1.73 sqM); Phosphorus 3.6 mg/dL (2.5-4.5); Potassium 4.4 mmol/L (3.5-5.1); Sodium 136 mmol/L (137-145); Total Bilirubin 0.4 mg/dL (0.2-1.3); Total Protein 7.2 g/dL (6.3-8.2)
[2022-02-26] MEDS ORDERED: FUROSEMIDE 10 MG/ML 10 ML VIAL IV STA (05:32)
[2022-02-26] MEDS ORDERED: FUROSEMIDE 10 MG/ML 4 ML VIAL IV SCH (05:45)
[2022-02-26 06:13] VITALS: RESP 18
[2022-02-26] MEDS ORDERED: diphenhydrAMINE 50 MG/ML 1 ML VIAL IVP PRN (06:17)
[2022-02-26] MEDS ORDERED: HYDROmorphone 1 MG/ML 1 ML SYRINGE IVP PRN (06:17)
[2022-02-26] MEDS ORDERED: tiZANidine 4 MG TAB PO PRN (08:08)
[2022-02-26] MEDS: PREGABALIN 100 MG CAP PO SCH ×2 (08:40→08:42)
[2022-02-26] MEDS ORDERED: amLODIPine 5 MG TAB PO SCH (09:00)
[2022-02-26] MEDS ORDERED: FENOFIBRATE 54 MG TAB PO SCH (09:00)
[2022-02-26] MEDS ORDERED: CLOPIDOGREL 75 MG TAB PO SCH (09:00)
[2022-02-26] MEDS ORDERED: METOPROLOL SUCCINATE (ER) 50 MG TAB.ER.24H PO SCH (09:00)
[2022-02-26] MEDS ORDERED: lisinopriL 20 MG TAB PO SCH (09:00)
--- NOTE | 2022-02-26 11:32 | P.HPIM ---
History of Present Illness H&P Date: 02/26/22 History of Presenting Illness: Patient is a pleasant 66-year-old male with a past medical history of CAD status post stents, hypertension, hyperlipidemia, history of DVT not on anticoagulant, chronic pain syndrome, and chronic debility ambulates with walker. He presented to the emergency department with a chief complaint of bilateral lower extremity pain and swelling. Patient reports this is been going on for the past couple months, he reports that he has not been taking his Lasix and hydralazine as previously prescribed because he has been out of these medications. 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 Go) to reorder these medications the next time he saw him because he no longer has a PCP. Patient reports the only physician he has been following is his pain management doctor, Dr. Davis Thakkar. Patient reports he has tried elevating his legs at home with no improvement in the swelling and denies having any other complaints including headache, lightheadedness, dizziness, chest pain, palpitations, shortness of breath, or dyspnea with exertion. Patient states he decided to come to the ER today because of uncontrolled pain in his legs secondary to the swelling. Patient recently underwent an echocardiogram on 01/04/22 which revealed an EF of 60-65% and also underwent bilateral lower extremity Dopplers on 01/04/22 which were also negative for DVTs.. In the emergency department patient underwent full evaluation. CBC revealed leukopenia with WBCs of 3.4 (chronic in nature) and normocytic normochromic anemia with hemoglobin of 11.7. Troponin negative at less than 0.012 and pro-BMP normal findings at 43. Urinalysis negative for infection. Chest x-ray negative for acute cardiopulmonary process. EKG revealed normal sinus rhythm and 93 bpm with no noted T-wave or ST abnormalities. Patient was admitted under observation to our services to undergo diuresis. Review of systems: Pertinent positives and negatives as discussed in HPI, a complete review of systems was performed and all other systems are negative. Physical exam: Vital signs reviewed and stable. General: Nontoxic, no distress and appears stated age. Derm: Skin warm and dry, normal coloration for ethnicity. Head: Atraumatic, normocephalic and symmetric. Eyes: EOMs intact, no lid lag, and anicteric sclera Mouth: no lip lesions, mucus membranes moist Cardiovascular: regular rate and rhythm with normal S1S2, no murmur, positive posterior tibial pulses bilaterally, and cap refill < 2 seconds. Lungs: Respirations even, regular, and unlabored on room air. Lungs CTA bilaterally, no rhonchi, no rales, no wheezing, and no accessory muscle usage. Abdominal: soft, nontender to palpation, no guarding, no appreciable organomegaly Ext: ROM intact. No gross muscle atrophy, no edema, no contractures Neuro: Speech clear, face symmetrical and CN II-XII grossly intact with no noted focal neuro deficits Psych: Alert and oriented to person, place, time, and situation. Appropriate and pleasant affect. Assessment and Plan of Care: Bilateral lower extremity edema -Likely chronic in nature as patient reports he has not been taking Lasix and hydralazine as previously prescribed as he states he has been out of these medications at home. -Patient given IV diuretics, Lasix -Patient educated on importance of elevation of legs when not in use -JOHNNY lott -Symptomatic care and pain management History of CAD status post stents Hypertension Hyperlipidemia -Resume daily medication regimen with Lasix, hydralazine, Plavix, Norvasc, fenofibrate, hydralazine, lisinopril, and metoprolol. History of DVT not on anticoagulant -Bilateral lower extremity Dopplers completed 01/04/22 negative for DVTs, swelling unchanged and chronic in nature. Chronic pain syndrome and chronic debility -Fall precautions and assistance to be provided as needed with ambulation as patient typically ambulates with walker. -Patient to continue daily medication regimen as confirmed by pharmacist MS Contin 30 mg every 8 hours and Percocet 10/325 every 8 hours. The patient is admitted with an anticipated less than 2 midnight stay for evaluation of bilateral lower extremity leg pain and swelling. CODE STATUS: Full code DVT prophylaxis: JOHNNY lott Discussed with: Patient and RN Anticipated discharge date: Likely later this afternoon versus tomorrow morning pending clinical course Anticipated discharge place: Home A total of 40 minutes was spent on the care of this complex patient more than 50% of the time was spent in counseling and care coordination. Past Medical History Past Medical History: Coronary Artery Disease (CAD), Chest Pain / Angina, COPD, Deep Vein Thrombosis (DVT), GERD/Reflux, Hyperlipidemia, Hypertension, Osteoarthritis (OA), Thyroid Disorder Additional Past Medical History / Comment(s): Occasional palpitations, gastritis, small hiatal hernia, diverticular dx, pt states years ago he had PUD, chronic low back pain, chronic pain syndrome, migraines, DVT L arm, numbness/tingling bilateral lower legs, bilateral past R hand fracture, arthritis multiple joints, hyperthyroid, sinus problems. History of Any Multi-Drug Resistant Organisms: None Reported Past Surgical History: Back Surgery, Cholecystectomy, Heart Catheterization With Stent, Orthopedic Surgery Additional Past Surgical History / Comment(s): EGDs/colonoscopies, multiple low back surgeries, bilateral arm and bilateral thigh surgeries for brown recluse spider bites with infection, morphine pain pump insertion and removal due to infection, PCI with stents, L rotator cuff repair, L knee arthroscopy, cervical fusion/cage, R cataract removal. 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 He lived to be 82 yrs old. Mother History Unknown: Yes Family Medical History: Hypertension, Myocardial Infarction ([place]) Additional Family Medical History / Comment(s): Mother of a [place] at the age of 55yrs. Brother(s) Family Medical History: Cancer, COPD Additional Family Medical History / Comment(s): Leukemia Medications and Allergies Home Medications Medication Instructions Recorded Confirmed Type Morphine Sulfate ER [Ms Contin] 30 mg PO Q8H 10/10/17 02/26/22 History tiZANidine [Zanaflex] 4 mg PO Q8H PRN 02/26/18 02/26/22 History oxyCODONE-APAP 10-325MG [Percocet 1 tab PO Q8H 01/02/20 02/26/22 History 10-325 mg] Nitroglycerin Sl Tabs [Nitrostat] 0.4 mg SL Q5M PRN 07/13/21 02/26/22 History Pregabalin [Lyrica] 100 mg PO BID 09/11/21 02/26/22 History Clopidogrel [Plavix] 75 mg PO DAILY 01/04/22 02/26/22 History SUMAtriptan succinate [Imitrex] 25 mg PO DAILY PRN 01/04/22 02/26/22 History amLODIPine [Norvasc] 5 mg PO BID 01/04/22 02/26/22 History hydrALAZINE HCL [Apresoline] 50 mg PO TID-W/MEALS 01/04/22 02/26/22 History Fenofibrate 50 mg PO DAILY #30 capsule 01/06/22 02/26/22 Rx Furosemide [Lasix] 20 mg PO DAILY 30 Days #30 tab 01/06/22 02/26/22 Rx Metoprolol Succinate [Toprol XL] 150 mg PO DAILY 30 Days #45 tab 01/06/22 02/26/22 Rx lisinopriL [Zestril] 40 mg PO DAILY 01/15/22 02/26/22 History Pantoprazole Sodium [Protonix] 40 mg PO AC-BRKFST #14 tab 01/16/22 02/26/22 Rx Ondansetron Odt [Zofran Odt] 4 mg PO Q8HR PRN #10 tab 02/18/22 02/26/22 Rx Allergies Allergy/AdvReac Type Severity Reaction Status Date / Time ibuprofen [From Motrin] Allergy Rash/Hives Verified 02/26/22 07:02 ketorolac tromethamine Allergy Rash/Hives Verified 02/26/22 07:02 [From Toradol] Physical Exam Vitals: Vital Signs Temp Pulse Resp BP Pulse Ox 02/26/22 06:12 98.7 F 97 18 144/88 97 02/26/22 04:01 100 F H 103 H 20 140/84 96 Intake and Output 02/25/22 02/26/22 02/26/22 22:59 06:59 14:59 Other: Weight 79.379 kg Results CBC & Chem 7: 02/26/22 04:37 02/26/22 04:37 Labs: Abnormal Lab Results - Last 24 Hours (Table) 02/26/22 02/26/22 Range/Units 04:37 04:37 WBC 3.4 L (3.8-10.6) k/uL RBC 3.97 L (4.30-5.90) m/uL Hgb 11.7 L (13.0-17.5) gm/dL Hct 37.2 L (39.0-53.0) % Sodium 136 L (137-145) mmol/L Glucose 115 H (74-99) mg/dL
[2022-02-26 13:57] VITALS: BP 156/88; PULSE 102; TEMP 98.1
[2022-02-26] MEDS ORDERED: ACETAMINOPHEN TAB 325 MG TAB PO PRN (14:13)
--- NOTE | 2022-02-26 15:56 | P.DS ---
Providers Date of admission: 02/26/22 05:32 Expected date of discharge: 02/26/22 Attending physician: Leticia Darby MD Consults: Discharge Diagnosis: Bilateral lower extremity edema, chronic venous stasis -Likely chronic in nature as patient reports he has not been taking Lasix and hydralazine as previously prescribed as he states he has been out of these medications at home. -Patient given IV diuretics, Lasix -Patient educated on importance of elevation of legs when not in use -JOHNNY hose -Symptomatic care and pain management History of CAD status post stents Hypertension Hyperlipidemia -Resume daily medication regimen with Lasix, hydralazine, Plavix, Norvasc, fenofibrate, hydralazine, lisinopril, and metoprolol. History of DVT not on anticoagulant -Bilateral lower extremity Dopplers completed 01/04/22 negative for DVTs, swelling unchanged and chronic in nature. Chronic pain syndrome and chronic debility -Fall precautions and assistance to be provided as needed with ambulation as patient typically ambulates with walker. -Patient to continue daily medication regimen as confirmed by pharmacist MS Contin 30 mg every 8 hours and Percocet 10/325 every 8 hours. Hospital Course: Patient is a pleasant 66-year-old male with a past medical history of CAD status post stents, hypertension, hyperlipidemia, history of DVT not on anticoagulant, chronic pain syndrome, and chronic debility ambulates with walker. He presented to the emergency department with a chief complaint of bilateral lower extremity pain and swelling. Patient reports this is been going on for the past couple months, he reports that he has not been taking his Lasix and hydralazine as previously prescribed because he has been out of these medications. Patient reports he was planning on asking his project manager retail (Dr. Go) to reorder these medications the next time he saw him because he no longer has a PCP. Patient reports the only physician he has been following is his pain management doctor, Dr. Davis Thakkar. Patient reports he has tried elevating his legs at home with no improvement in the swelling and denies having any other complaints including headache, lightheadedness, dizziness, chest pain, palpitations, shortness of breath, or dyspnea with exertion. Patient states he decided to come to the ER today because of uncontrolled pain in his legs secondary to the swelling. Patient recently underwent an echocardiogram on 01/04/22 which revealed an EF of 60-65% and also underwent bilateral lower extremity Dopplers on 01/04/22 which were also negative for DVTs.. In the emergency department patient underwent full evaluation. CBC revealed leukopenia with WBCs of 3.4 (chronic in nature) and normocytic normochromic anemia with hemoglobin of 11.7. Troponin negative at less than 0.012 and pro-BMP normal findings at 43. Urinalysis negative for infection. Chest x-ray negative for acute cardiopulmonary process. EKG revealed normal sinus rhythm and 93 bpm with no noted T-wave or ST abnormalities. Patient was admitted under observation to our services to undergo diuresis. Patient had 2100 mL of output followed by approximately another 1 L that patient emptied prior to accurately measuring. JOHNNY hose placed on patient and he was educated on the importance of wearing JOHNNY hose during waking hours and removing at night. Patient was also educated on the importance of elevating his legs when not in use. Patient continues to deny having any chest pain, palpitations, shortness of breath, dizziness, lightheadedness, or any other complaints. Patient reports pain in his feet secondary to swelling as only complaint. Patient has had improvement of pain since arrival to our facility. He is medically stable for discharge and was provided with one month supply of all of his prescriptions for his cardiac medications including Plavix, Norvasc, fenofibrate, hydralazine, lisinopril, and metoprolol. Would not prescribe morphine or Percocet as patient will need to continue to follow with his pain management physician for these medications. Patient was educated on the importance of following up outpatient with the PCP, he stated he did not like his PCP and is looking for a new one, contact information was given for new PCP, Dr. Cruz. Patient also instructed to follow up with cardiology in 1 week. Patient medically stable for discharge at this time and to continue home medication regimen as prescribed. Physical exam: Vital signs reviewed and stable. General: Nontoxic, no distress and appears stated age. Derm: Skin warm and dry, normal coloration for ethnicity. Head: Atraumatic, normocephalic and symmetric. Eyes: EOMs intact, no lid lag, and anicteric sclera Mouth: no lip lesions, mucus membranes moist Cardiovascular: regular rate and rhythm with normal S1S2, no murmur, positive posterior tibial pulses bilaterally, and cap refill < 2 seconds. Lungs: Respirations even, regular, and unlabored on room air. Lungs CTA bilaterally, no rhonchi, no rales, no wheezing, and no accessory muscle usage. Abdominal: soft, nontender to palpation, no guarding, no appreciable organomegaly Ext: ROM intact. No gross muscle atrophy, 2+ pitting bilateral lower extremity edema of ankles and feet, no contractures Neuro: Speech clear, face symmetrical and CN II-XII grossly intact with no noted focal neuro deficits Psych: Alert and oriented to person, place, time, and situation. Appropriate and pleasant affect. A total of 39 minutes of time were spent preparing this complex discharge summary. Primary care physician: Stated None Hospital Course: Discharge Diagnosis: Bilateral lower extremity edema, chronic venous stasis. Continue to wear compression stockings and elevate legs as we discussed. You may continue Lasix and hydralazine as previously prescribed History of CAD status post stents Hypertension Hyperlipidemia History of DVT not on anticoagulant -Bilateral lower extremity Dopplers completed 01/04/22 negative for DVTs, swelling unchanged and chronic in nature. Chronic pain syndrome and chronic debility Hospital Course: Patient is a pleasant 66-year-old male with a past medical history of CAD status post stents, hypertension, hyperlipidemia, history of DVT not on anticoagulant, chronic pain syndrome, and chronic debility ambulates with walker. He presented to the emergency department with a chief complaint of bilateral lower extremity pain and swelling. Patient reports this is been going on for the past couple months, he reports that he has not been taking his Lasix and hydralazine as previously prescribed because he has been out of these medications. Patient reports he was planning on asking his project manager retail (Dr. Go) to reorder these medications the next time he saw him because he no longer has a PCP. Patient reports the only physician he has been following is his pain management doctor, Dr. Davis Thakkar. Patient reports he has tried elevating his legs at home with no improvement in the swelling and denies having any other complaints including headache, lightheadedness, dizziness, chest pain, palpitations, shortness of breath, or dyspnea with exertion. Patient states he decided to come to the ER today because of uncontrolled pain in his legs secondary to the swelling. Patient recently underwent an echocardiogram on 01/04/22 which revealed an EF of 60-65% and also underwent bilateral lower extremity Dopplers on 01/04/22 which were also negative for DVTs.. In the emergency department patient underwent full evaluation. CBC revealed leukopenia with WBCs of 3.4 (chronic in nature) and normocytic normochromic anemia with hemoglobin of 11.7. Troponin negative at less than 0.012 and pro-BMP normal findings at 43. Urinalysis negative for infection. Chest x-ray negative for acute cardiopulmonary process. EKG revealed normal sinus rhythm and 93 bpm with no noted T-wave or ST abnormalities. Patient was admitted under observation to our services to undergo diuresis. Patient had 2100 mL of output followed by approximately another 1 L that patient emptied prior to accurately measuring. JOHNNY hose placed on patient and he was educated on the importance of wearing JOHNNY hose during waking hours and removing at night. Patient was also educated on the importance of elevating his legs when not in use. Patient continues to deny having any chest pain, palpitations, shortness of breath, dizziness, lightheadedness, or any other complaints. Patient reports pain in his feet secondary to swelling as only complaint. Patient has had improvement of pain since arrival to our facility. He is medically stable for discharge and was provided with one month supply of all of his prescriptions for his cardiac medications including Plavix, Norvasc, fenofibrate, hydralazine, lisinopril, and metoprolol. Would not prescribe morphine or Percocet as patient will need to continue to follow with his pain management physician for these medications. Patient was educated on the importance of following up outpatient with the PCP, he stated he did not like his PCP and is looking for a new one, contact information was given for new PCP, Dr. Cruz. Patient also instructed to follow up with cardiology in 1 week. Patient medically stable for discharge at this time and to continue home medication regimen as prescribed. Physical exam: Vital signs reviewed and stable. General: Nontoxic, no distress and appears stated age. Derm: Skin warm and dry, normal coloration for ethnicity. Head: Atraumatic, normocephalic and symmetric. Eyes: EOMs intact, no lid lag, and anicteric sclera Mouth: no lip lesions, mucus membranes moist Cardiovascular: regular rate and rhythm with normal S1S2, no murmur, positive posterior tibial pulses bilaterally, and cap refill < 2 seconds. Lungs: Respirations even, regular, and unlabored on room air. Lungs CTA bilaterally, no rhonchi, no rales, no wheezing, and no accessory muscle usage. Abdominal: soft, nontender to palpation, no guarding, no appreciable organomegaly Ext: ROM intact. No gross muscle atrophy, 2+ pitting bilateral lower extremity edema of ankles and feet, no contractures Neuro: Speech clear, face symmetrical and CN II-XII grossly intact with no noted focal neuro deficits Psych: Alert and oriented to person, place, time, and situation. Appropriate and pleasant affect. A total of 39 minutes of time were spent preparing this complex discharge summary. Patient Condition at Discharge: Stable Plan - Discharge Summary Discharge Rx Participant: No New Discharge Prescriptions: Continue Morphine Sulfate ER [Ms Contin] 30 mg PO Q8H tiZANidine [Zanaflex] 4 mg PO Q8H PRN PRN Reason: Muscle Spasm oxyCODONE-APAP 10-325MG [Percocet 10-325 mg] 1 tab PO Q8H Nitroglycerin Sl Tabs [Nitrostat] 0.4 mg SL Q5M PRN PRN Reason: Chest Pain SUMAtriptan succinate [Imitrex] 25 mg PO DAILY PRN PRN Reason: Migraine Headache Pantoprazole Sodium [Protonix] 40 mg PO AC-BRKFST #14 tab Ondansetron Odt [Zofran ODT] 4 mg PO Q8HR PRN #10 tab PRN Reason: Nausea hydrALAZINE HCL [Apresoline] 50 mg PO TID-W/MEALS 30 Days #90 tab Clopidogrel [Plavix] 75 mg PO DAILY 30 Days #30 tab lisinopriL [Zestril] 40 mg PO DAILY 30 Days #30 tab Pregabalin [Lyrica] 100 mg PO BID Furosemide [Lasix] 20 mg PO DAILY 30 Days #30 tab Fenofibrate 50 mg PO DAILY 30 Days #30 capsule amLODIPine [Norvasc] 5 mg PO BID 30 Days #60 tab Metoprolol Succinate [Toprol XL] 150 mg PO DAILY 30 Days #45 tab Discharge Medication List Morphine Sulfate ER [Ms Contin] 30 mg PO Q8H 10/10/17 [History] tiZANidine [Zanaflex] 4 mg PO Q8H PRN 02/26/18 [History] oxyCODONE-APAP 10-325MG [Percocet 10-325 mg] 1 tab PO Q8H 02/10/20 [History] Nitroglycerin Sl Tabs [Nitrostat] 0.4 mg SL Q5M PRN 07/13/21 [History] Pregabalin [Lyrica] 100 mg PO BID 09/11/21 [History] SUMAtriptan succinate [Imitrex] 25 mg PO DAILY PRN 01/04/22 [History] Furosemide [Lasix] 20 mg PO DAILY 30 Days #30 tab 01/06/22 [Rx] Pantoprazole Sodium [Protonix] 40 mg PO AC-BRKFST #14 tab 01/16/22 [Rx] Ondansetron Odt [Zofran ODT] 4 mg PO Q8HR PRN #10 tab 02/18/22 [Rx] Clopidogrel [Plavix] 75 mg PO DAILY 30 Days #30 tab 02/26/22 [Rx] Fenofibrate 50 mg PO DAILY 30 Days #30 capsule 02/26/22 [Rx] Metoprolol Succinate [Toprol XL] 150 mg PO DAILY 30 Days #45 tab 02/26/22 [Rx] amLODIPine [Norvasc] 5 mg PO BID 30 Days #60 tab 02/26/22 [Rx] hydrALAZINE HCL [Apresoline] 50 mg PO TID-W/MEALS 30 Days #90 tab 02/26/22 [Rx] lisinopriL [Zestril] 40 mg PO DAILY 30 Days #30 tab 02/26/22 [Rx] Follow up Appointment(s)/Referral(s): Fannie Go MD [STAFF PHYSICIAN] - 1 Week Justin Cruz MD [REFERRING] - 1-2 Days Activity/Diet/Wound Care/Special Instructions: Activity: As tolerated. Take breaks as needed. Diet: Heart healthy and carb consistent diet. Avoid salts, or foods with hidden salts such as canned or boxed foods and frozen dinners. Extra salt makes your heart work harder and traps the fluid in your body for longer. Special Instructions: Weigh yourself every morning after you urinate. If you gain 3 pounds overnight or more than 5 pounds in one week, call your primary physician and project manager retail for guidance on your medications or they may want to see you in their office. Keep a daily log of your weights and be sure to bring with you at follow up visits with your PCP and project manager retail. Take all of your medications as directed, especially your water pills. NEVER skip a dose. And remember to keep all of your doctor's appointments and follow- up as needed. Swelling in your lower extremities is likely secondary to chronic venous stasis, it is important to elevate her legs when not in use and were your compression stockings as we discussed. If you continue to have swelling despite all of these treatments, may consider outpatient evaluation by vascular surgery, Dr. Gill. Your PCP can place referral if necessary. Elevate your legs when you are not up moving around to help with circulation and prevent swelling. Compression stockings are also a great way to improve lower extremity circulation and prevent/improve lower extremity edema. Thank you for allowing us to participate in your care, it was truly a pleasure having you for our patient!!! Discharge Disposition: HOME SELF-CARE
[2022-02-26] MEDS ORDERED: MORPHINE SULFATE ER 30 MG TABLET PO SCH (16:00)
[2022-02-26] MEDS ORDERED: hydrALAZINE HCL 50 MG TAB PO SCH (17:30)
[2022-02-26] MEDS ORDERED: oxyCODONE-APAP 10-325MG 1 EACH TAB PO SCH (20:00)
[2022-02-27] MEDS ORDERED: PANTOPRAZOLE 40 MG TABLET PO SCH (07:30)
== END 2022-02-26 16:10 | disposition home or self-care (01) ==
LOC: EC 03:57 → 6NMEDSUR 05:32
PROVIDERS: ADMIT Internal Medicine; ATTEND Internal Medicine
DX: I87.8 Other specified disorders of veins (principal); M79.89 Other specified soft tissue disorders; M79.605 Pain in left leg; M79.604 Pain in right leg; R60.0 Localized edema; T50.1X6A Underdosing of loop [high-ceiling] diuretics, initial encounter; T46.5X6A Underdosing of other antihypertensive drugs, initial encounter; Z91.14 Patient's other noncompliance with medication regimen; Z91.128 Patient's intentional underdosing of medication regimen for other reason; Z71.9 Counseling, unspecified; I25.10 Atherosclerotic heart disease of native coronary artery without angina pectoris; I10 Essential (primary) hypertension; E78.5 Hyperlipidemia, unspecified; G89.4 Chronic pain syndrome; R53.81 Other malaise; D64.9 Anemia, unspecified; D72.819 Decreased white blood cell count, unspecified; J44.9 Chronic obstructive pulmonary disease, unspecified; K21.9 Gastro-esophageal reflux disease without esophagitis; M19.90 Unspecified osteoarthritis, unspecified site; E05.90 Thyrotoxicosis, unspecified without thyrotoxic crisis or storm; G43.909 Migraine, unspecified, not intractable, without status migrainosus; K44.9 Diaphragmatic hernia without obstruction or gangrene; M54.50 Low back pain, unspecified; R00.2 Palpitations; K29.70 Gastritis, unspecified, without bleeding; R20.0 Anesthesia of skin; R20.2 Paresthesia of skin; Z87.11 Personal history of peptic ulcer disease; Z95.5 Presence of coronary angioplasty implant and graft; Z86.718 Personal history of other venous thrombosis and embolism; Z87.891 Personal history of nicotine dependence; Z90.49 Acquired absence of other specified parts of digestive tract; Z79.899 Other long term (current) drug therapy; Z79.02 Long term (current) use of antithrombotics/antiplatelets; Z79.891 Long term (current) use of opiate analgesic; Z88.8 Allergy status to other drugs, medicaments and biological substances; Z82.49 Family history of ischemic heart disease and other diseases of the circulatory system; Z80.6 Family history of leukemia; Z82.5 Family history of asthma and other chronic lower respiratory diseases
CPT/HCPCS: 96376; 96374; 96375; 99284; 36415; 93005; 83880; 80053; 83735; 84100; 84484; 85025; 85610; 85730; 81003; 71045; G0378; J1200; J1940; J1170

== ENCOUNTER 2022-03-05 01:55 | Emergency (ER) | payer MEDICARE, OTHER ==
--- NOTE | 2022-03-05 03:03 | XR ---
EXAMINATION TYPE: XR chest 2V DATE OF EXAM: 03/05/2022 COMPARISON: 02/26/2022 HISTORY: Chest pain TECHNIQUE: FINDINGS: There is some mild subsegmental atelectasis left lower lobe. There is minimal atelectasis r ight midlung. Heart is normal. No heart failure seen. There are no hilar masses. Costophrenic angles are clear. IMPRESSION: There are bilateral patches of subsegmental atelectasis which appear new compared to last exam. Normal heart.
[2022-03-05 03:05] VITALS: TEMP 98
--- NOTE | 2022-03-05 03:36 | ED ---
General Adult HPI - General Chief complaint: Chest Pain Stated complaint: Chest Pain Time Seen by Provider: 03/05/22 03:19 Source: patient Mode of arrival: wheelchair - History of Present Illness Initial comments: This patient is a 66-year-old man who presents to be evaluated for bilateral ankle and foot swelling. Patient states this been going on for days getting progressively worse. Patient did have recent visit to emergency Department worsening complaints. The patient called EMS tonight about this and then also had describes chest pain. He had an episode of left-sided chest pain, redness and no associated symptoms. He states the pain is gone now. -: days(s) Location: left, right, lower extremity Quality: dull Consistency: constant Improves with: none Worsens with: none Associated Symptoms: chest pain Treatments Prior to Arrival: none - Related Data Home Medications Medication Instructions Recorded Confirmed Morphine Sulfate ER [Ms Contin] 30 mg PO Q8H 10/10/17 02/26/22 tiZANidine [Zanaflex] 4 mg PO Q8H PRN 02/26/18 02/26/22 oxyCODONE-APAP 10-325MG [Percocet 1 tab PO Q8H 01/02/20 02/26/22 10-325 mg] Nitroglycerin Sl Tabs [Nitrostat] 0.4 mg SL Q5M PRN 07/13/21 02/26/22 Pregabalin [Lyrica] 100 mg PO BID 09/11/21 02/26/22 SUMAtriptan succinate [Imitrex] 25 mg PO DAILY PRN 01/04/22 02/26/22 Previous Rx's Medication Instructions Recorded Furosemide [Lasix] 20 mg PO DAILY 30 Days #30 tab 01/06/22 Pantoprazole Sodium [Protonix] 40 mg PO AC-BRKFST #14 tab 01/16/22 Ondansetron Odt [Zofran ODT] 4 mg PO Q8HR PRN #10 tab 02/18/22 Clopidogrel [Plavix] 75 mg PO DAILY 30 Days #30 tab 02/26/22 Fenofibrate 50 mg PO DAILY 30 Days #30 capsule 02/26/22 Metoprolol Succinate [Toprol XL] 150 mg PO DAILY 30 Days #45 tab 02/26/22 amLODIPine [Norvasc] 5 mg PO BID 30 Days #60 tab 02/26/22 hydrALAZINE HCL [Apresoline] 50 mg PO TID-W/MEALS 30 Days #90 02/26/22 tab lisinopriL [Zestril] 40 mg PO DAILY 30 Days #30 tab 02/26/22 Allergies Allergy/AdvReac Type Severity Reaction Status Date / Time ibuprofen [From Motrin] Allergy Rash/Hives Verified 03/05/22 03:05 ketorolac tromethamine Allergy Rash/Hives Verified 03/05/22 03:05 [From Toradol] Review of Systems ROS Statement: Those systems with pertinent positive or pertinent negative responses have been documented in the HPI. ROS Other: All systems not noted in ROS Statement are negative. Constitutional: Denies: fever, chills, weakness Respiratory: Denies: cough, dyspnea Cardiovascular: Reports: chest pain, edema. Denies: palpitations, orthopnea, syncope Gastrointestinal: Denies: abdominal pain, nausea, vomiting, diarrhea Genitourinary: Denies: dysuria, hematuria Musculoskeletal: Denies: back pain Skin: Denies: rash Neurological: Denies: headache Past Medical History Past Medical History: Coronary Artery Disease (CAD), Chest Pain / Angina, COPD, Deep Vein Thrombosis (DVT), GERD/Reflux, Hyperlipidemia, Hypertension, Osteoarthritis (OA), Thyroid Disorder Additional Past Medical History / Comment(s): Occasional palpitations, gastritis, small hiatal hernia, diverticular dx, pt states years ago he had PUD, chronic low back pain, chronic pain syndrome, migraines, DVT L arm, numbness/tingling bilateral lower legs, bilateral past R hand fracture, arthritis multiple joints, hyperthyroid, sinus problems. History of Any Multi-Drug Resistant Organisms: None Reported Past Surgical History: Back Surgery, Cholecystectomy, Heart Catheterization With Stent, Orthopedic Surgery Additional Past Surgical History / Comment(s): EGDs/colonoscopies, multiple low back surgeries, bilateral arm and bilateral thigh surgeries for brown recluse spider bites with infection, morphine pain pump insertion and removal due to infection, PCI with stents, L rotator cuff repair, L knee arthroscopy, cervical fusion/cage, R cataract removal. 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 He li leroy to be 82 yrs old. Mother History Unknown: Yes Family Medical History: Hypertension, Myocardial Infarction ([place]) Additional Family Medical History / Comment(s): Mother of a [place] at the age of 55yrs. Brother(s) Family Medical History: Cancer, COPD Additional Family Medical History / Comment(s): Leukemia General Exam General appearance: alert, in no apparent distress Head exam: Present: atraumatic, normocephalic Eye exam: Present: normal appearance. Absent: scleral icterus, conjunctival injection Neck exam: Present: normal inspection Respiratory exam: Present: normal lung sounds bilaterally. Absent: respiratory distress, wheezes, rales, rhonchi, stridor Cardiovascular Exam: Present: regular rate, normal rhythm, normal heart sounds. Absent: systolic murmur, diastolic murmur, rubs, gallop GI/Abdominal exam: Present: soft. Absent: distended, tenderness, guarding, rebound, rigid, mass Extremities exam: Present: normal inspection, normal capillary refill, pedal edema. Absent: calf tenderness Neurological exam: Present: alert Skin exam: Present: warm, dry, intact, normal color. Absent: rash Course Vital Signs 03/05/22 03/05/22 03:03 03:56 Temperature 98 F Pulse Rate 99 91 Respiratory 18 133 H Rate Blood Pressure 161/80 133/75 O2 Sat by Pulse 98 98 Oximetry Medical Decision Making - Lab Data Result diagrams: 03/05/22 03:39 03/05/22 03:39 Lab Results 03/05/22 03/05/22 03/05/22 Range/Units 03:39 03:39 03:39 WBC 7.4 (3.8-10.6) k/uL RBC 4.19 L (4.30-5.90) m/uL Hgb 11.9 L (13.0-17.5) gm/dL Hct 38.5 L (39.0-53.0) % MCV 91.9 (80.0-100.0) fL MCH 28.4 (25.0-35.0) pg MCHC 31.0 (31.0-37.0) g/dL RDW 14.4 (11.5-15.5) % Plt Count 354 (150-450) k/uL MPV 6.6 Neutrophils % 83 % Lymphocytes % 9 % Monocytes % 4 % Eosinophils % 2 % Basophils % 0 % Neutrophils # 6.2 (1.3-7.7) k/uL Lymphocytes # 0.7 L (1.0-4.8) k/uL Monocytes # 0.3 (0-1.0) k/uL Eosinophils # 0.1 (0-0.7) k/uL Basophils # 0.0 (0-0.2) k/uL PT 9.8 (9.0-12.0) sec INR 0.9 (<1.2) APTT 22.6 (22.0-30.0) sec D-Dimer 0.97 H (<0.60) mg/L FEU Sodium 136 L (137-145) mmol/L Potassium 5.1 (3.5-5.1) mmol/L Chloride 103 (98-107) mmol/L Carbon Dioxide 24 (22-30) mmol/L Anion Gap 9 mmol/L BUN 7 L (9-20) mg/dL Creatinine 0.62 L (0.66-1.25) mg/dL Est GFR (CKD-EPI)AfAm >90 (>60 ml/min/1.73 sqM) Est GFR (CKD-EPI)NonAf >90 (>60 ml/min/1.73 sqM) Glucose 105 H (74-99) mg/dL Calcium 9.1 (8.4-10.2) mg/dL Magnesium 1.7 (1.6-2.3) mg/dL Total Bilirubin 0.6 (0.2-1.3) mg/dL AST 35 (17-59) U/L ALT 19 (4-49) U/L Alkaline Phosphatase 81 (38-126) U/L Troponin I (0.000-0.034) ng/mL NT-Pro-B Natriuret Pep pg/mL Total Protein 8.0 (6.3-8.2) g/dL Albumin 4.6 (3.5-5.0) g/dL 03/05/22 03/05/22 Range/Units 03:39 03:39 WBC (3.8-10.6) k/uL RBC (4.30-5.90) m/uL Hgb (13.0-17.5) gm/dL Hct (39.0-53.0) % MCV (80.0-100.0) fL MCH (25.0-35.0) pg MCHC (31.0-37.0) g/dL RDW (11.5-15.5) % Plt Count (150-450) k/uL MPV Neutrophils % % Lymphocytes % % Monocytes % % Eosinophils % % Basophils % % Neutrophils # (1.3-7.7) k/uL Lymphocytes # (1.0-4.8) k/uL Monocytes # (0-1.0) k/uL Eosinophils # (0-0.7) k/uL Basophils # (0-0.2) k/uL PT (9.0-12.0) sec INR (<1.2) APTT (22.0-30.0) sec D-Dimer (<0.60) mg/L FEU Sodium (137-145) mmol/L Potassium (3.5-5.1) mmol/L Chloride (98-107) mmol/L Carbon Dioxide (22-30) mmol/L Anion Gap mmol/L BUN (9-20) mg/dL Creatinine (0.66-1.25) mg/dL Est GFR (CKD-EPI)AfAm (>60 ml/min/1.73 sqM) Est GFR (CKD-EPI)NonAf (>60 ml/min/1.73 sqM) Glucose (74-99) mg/dL Calcium (8.4-10.2) mg/dL Magnesium (1.6-2.3) mg/dL Total Bilirubin (0.2-1.3) mg/dL AST (17-59) U/L ALT (4-49) U/L Alkaline Phosphatase (38-126) U/L Troponin I <0.012 (0.000-0.034) ng/mL NT-Pro-B Natriuret Pep 75 pg/mL Total Protein (6.3-8.2) g/dL Albumin (3.5-5.0) g/dL Disposition Clinical Impression: Extremity edema Disposition: HOME SELF-CARE Condition: Good Instructions (If sedation given, give patient instructions): Leg Edema (ED) Is patient prescribed a controlled substance at d/c from ED?: No Referrals: None,Stated [Primary Care Provider] - 1-2 days
[2022-03-05 03:46] LABS: Basophils % (A) 0 %; Eosinophils # (A) 0.1 k/uL (0-0.7); Eosinophils % (A) 2 %; HCT 38.5 % (39.0-53.0); HGB 11.9 gm/dL (13.0-17.5); Lymphocytes # (A) 0.7 k/uL (1.0-4.8); Lymphocytes % (A) 9 %; MCH 28.4 pg (25.0-35.0); MCV 91.9 fL (80.0-100.0); Mean Platelet Volume 6.6; Monocytes # (A) 0.3 k/uL (0-1.0); Monocytes % (A) 4 %; Neutrophils # (A) 6.2 k/uL (1.3-7.7); Neutrophils % (A) 83 %; Platelet Count 354 k/uL (150-450); RBC 4.19 m/uL (4.30-5.90); RDW 14.4 % (11.5-15.5); WBC 7.4 k/uL (3.8-10.6)
[2022-03-05 03:56] LABS: ALT 19 U/L (4-49); AST 35 U/L (17-59); African American GFR (CKD) >90 (>60 ml/min/1.73 sqM); Albumin 4.6 g/dL (3.5-5.0); Alkaline Phosphatase 81 U/L (38-126); Anion Gap 9 mmol/L; Blood Urea Nitrogen 7 mg/dL (9-20); Calcium 9.1 mg/dL (8.4-10.2); Carbon Dioxide 24 mmol/L (22-30); Chloride 103 mmol/L (98-107); Glucose 105 mg/dL (74-99); Magnesium 1.7 mg/dL (1.6-2.3); Non-African American GFR(CKD) >90 (>60 ml/min/1.73 sqM); Sodium 136 mmol/L (137-145); Total Bilirubin 0.6 mg/dL (0.2-1.3)
[2022-03-05 03:57] LABS: Potassium 5.1 mmol/L (3.5-5.1)
[2022-03-05 04:05] LABS: INR 0.9 (<1.2); Partial Thromboplastin Time 22.6 sec (22.0-30.0); Prothrombin Time 9.8 sec (9.0-12.0)
[2022-03-05] MEDS ORDERED: oxyCODONE-APAP 10-325MG 1 EACH TAB PO STA (04:13)
[2022-03-05] MEDS ORDERED: FUROSEMIDE 40 MG TAB PO STA (04:43)
[2022-03-05 04:57] VITALS: BP 154/81; PULSE 90; RESP 18
== END 2022-03-05 05:36 | disposition home or self-care (01) ==
LOC: EC 01:55
DX: R60.0 Localized edema (principal); I10 Essential (primary) hypertension; I25.10 Atherosclerotic heart disease of native coronary artery without angina pectoris; J44.9 Chronic obstructive pulmonary disease, unspecified; K21.9 Gastro-esophageal reflux disease without esophagitis; E78.5 Hyperlipidemia, unspecified; M19.90 Unspecified osteoarthritis, unspecified site; Z87.891 Personal history of nicotine dependence; Z79.02 Long term (current) use of antithrombotics/antiplatelets; Z79.899 Other long term (current) drug therapy
CPT/HCPCS: 36415; 71046; 80053; 83735; 83880; 84484; 85025; 85379; 85610; 85730; 93005; 99285

== ENCOUNTER 2022-04-08 00:44 | Emergency (ER) | payer MEDICARE, OTHER ==
[2022-04-08 01:05] VITALS: TEMP 97.2
[2022-04-08] MEDS ORDERED: ONDANSETRON ODT 4 MG TAB PO STA (06:20)
[2022-04-08] MEDS ORDERED: HYDROmorphone 1 MG/ML 1 ML SYRINGE IM STA (06:20)
--- NOTE | 2022-04-08 06:22 | ED ---
Headache HPI - General Chief Complaint: Headache Stated Complaint: Migraine Time Seen by Provider: 04/08/22 06:20 Source: patient, RN notes reviewed Mode of arrival: ambulatory Limitations: no limitations - History of Present Illness Initial Comments: This a 66-year-old male presents emergency Department chief complaint of migraine headache. This chronic issue in nature. Patient states is typical headache. Patient does have nausea. Patient states that it's diffuse nature no neck pain no fevers or chills. Patient offers no other complaints. - Related Data Home Medications Medication Instructions Recorded Confirmed Morphine Sulfate ER [Ms Contin] 30 mg PO Q8H 10/10/17 02/26/22 tiZANidine [Zanaflex] 4 mg PO Q8H PRN 02/26/18 02/26/22 oxyCODONE-APAP 10-325MG [Percocet 1 tab PO Q8H 01/02/20 02/26/22 10-325 mg] Nitroglycerin Sl Tabs [Nitrostat] 0.4 mg SL Q5M PRN 07/13/21 02/26/22 Pregabalin [Lyrica] 100 mg PO BID 09/11/21 02/26/22 SUMAtriptan succinate [Imitrex] 25 mg PO DAILY PRN 01/04/22 02/26/22 Previous Rx's Medication Instructions Recorded Furosemide [Lasix] 20 mg PO DAILY 30 Days #30 tab 01/06/22 Pantoprazole Sodium [Protonix] 40 mg PO AC-BRKFST #14 tab 01/16/22 Ondansetron Odt [Zofran ODT] 4 mg PO Q8HR PRN #10 tab 02/18/22 Clopidogrel [Plavix] 75 mg PO DAILY 30 Days #30 tab 02/26/22 Fenofibrate 50 mg PO DAILY 30 Days #30 capsule 02/26/22 Metoprolol Succinate [Toprol XL] 150 mg PO DAILY 30 Days #45 tab 02/26/22 amLODIPine [Norvasc] 5 mg PO BID 30 Days #60 tab 02/26/22 hydrALAZINE HCL [Apresoline] 50 mg PO TID-W/MEALS 30 Days #90 02/26/22 tab lisinopriL [Zestril] 40 mg PO DAILY 30 Days #30 tab 02/26/22 Allergies Allergy/AdvReac Type Severity Reaction Status Date / Time ibuprofen [From Motrin] Allergy Rash/Hives Verified 04/08/22 01:04 ketorolac tromethamine Allergy Rash/Hives Verified 04/08/22 01:04 [From Toradol] Review of Systems ROS Statement: Those systems with pertinent positive or pertinent negative responses have been documented in the HPI. ROS Other: All systems not noted in ROS Statement are negative. Past Medical History Past Medical History: Coronary Artery Disease (CAD), Chest Pain / Angina, COPD, Deep Vein Thrombosis (DVT), GERD/Reflux, Hyperlipidemia, Hypertension, Osteoarthritis (OA), Thyroid Disorder Additional Past Medical History / Comment(s): Occasional palpitations, gastritis, small hiatal hernia, diverticular dx, pt states years ago he had PUD, chronic low back pain, chronic pain syndrome, migraines, DVT L arm, numbness/tingling bilateral lower legs, bilateral past R hand fracture, arthritis multiple joints, hyperthyroid, sinus problems. History of Any Multi-Drug Resistant Organisms: None Reported Past Surgical History: Back Surgery, Cholecystectomy, Heart Catheterization With Stent, Orthopedic Surgery Additional Past Surgical History / Comment(s): EGDs/colonoscopies, multiple low back surgeries, bilateral arm and bilateral thigh surgeries for brown recluse spider bites with infection, morphine pain pump insertion and removal due to infection, PCI with stents, L rotator cuff repair, L knee arthroscopy, cervical fusion/cage, R cataract removal. 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 He lived to be 82 yrs old. Mother History Unknown: Yes Family Medical History: Hypertension, Myocardial Infarction ([place]) Additional Family Medical History / Comment(s): Mother of a [place] at the age of 55yrs. Brother(s) Family Medical History: Cancer, COPD Additional Family Medical History / Comment(s): Leukemia General Exam General appearance: alert, in no apparent distress Head exam: Present: atraumatic, normocephalic, normal inspection Eye exam: Present: normal appearance, PERRL, EOMI. Absent: scleral icterus, conjunctival injection, periorbital swelling ENT exam: Present: normal exam, normal oropharynx, mucous membranes moist Neck exam: Present: normal inspection, full ROM. Absent: tenderness, meningismus, lymphadenopathy Respiratory exam: Present: normal lung sounds bilaterally. Absent: respiratory distress, wheezes, rales, rhonchi, stridor Cardiovascular Exam: Present: regular rate, normal rhythm, normal heart sounds. Absent: systolic murmur, diastolic murmur, rubs, gallop, clicks Neurological exam: Present: alert, oriented X3, CN II-XII intact, reflexes normal. Absent: motor sensory deficit Skin exam: Present: warm, dry, intact, normal color. Absent: rash Course Vital Signs 04/08/22 01:01 Temperature 97.2 F L Pulse Rate 74 Respiratory 16 Rate Blood Pressure 157/86 O2 Sat by Pulse 99 Oximetry Medical Decision Making - Medical Decision Making Patient is stable for discharge. Patient was given migraine cocktail. Patient presents plan of discharge patient has no neurological deficits. Disposition Clinical Impression: Migraine Disposition: HOME SELF-CARE Condition: Stable Instructions (If sedation given, give patient instructions): Acute Headache (ED) Additional Instructions: Please return to the Emergency Department if symptoms worsen or any other concer ns. Is patient prescribed a controlled substance at d/c from ED?: No Referrals: None,Stated [Primary Care Provider] - 1-2 days Time of Disposition: 06:22
[2022-04-08 06:42] VITALS: BP 150/84; PULSE 98; RESP 18
== END 2022-04-08 06:48 | disposition home or self-care (01) ==
LOC: EC 00:44
DX: G43.909 Migraine, unspecified, not intractable, without status migrainosus (principal); I10 Essential (primary) hypertension; I25.10 Atherosclerotic heart disease of native coronary artery without angina pectoris; J44.9 Chronic obstructive pulmonary disease, unspecified; K21.9 Gastro-esophageal reflux disease without esophagitis; E78.5 Hyperlipidemia, unspecified; Z79.02 Long term (current) use of antithrombotics/antiplatelets; Z79.899 Other long term (current) drug therapy; Z86.718 Personal history of other venous thrombosis and embolism; Z87.891 Personal history of nicotine dependence; Z88.6 Allergy status to analgesic agent; Z95.5 Presence of coronary angioplasty implant and graft
CPT/HCPCS: 99283; 96372; J1170

== ENCOUNTER → 2022-05-15 | Outpatient (CLI) | payer MEDICARE, OTHER ==
--- NOTE | 2022-05-16 08:11 | XR ---
Left hip HISTORY: Pain for one year 2 views the left hip There is concentric joint space loss. Bone mineralization is maintained. No fracture or dislocation. Alignment is maintained. Minimal marginal spurring. IMPRESSION: Findings suggest mild osteoarthritis, hip MRI may be of benefit
== END | disposition home or self-care (01) ==
LOC: RADXRMAIN 17:41
PROVIDERS: ATTEND Physician Assistant Medical
DX: M25.552 Pain in left hip (principal)
CPT/HCPCS: 73502

== ENCOUNTER 2022-05-22 04:03 | Emergency (ER) | payer MEDICARE, OTHER ==
[2022-05-22 04:09] VITALS: BP 142/82; PULSE 81; RESP 18; TEMP 98.1
[2022-05-22] MEDS ORDERED: HYDROmorphone 1 MG/ML 1 ML SYRINGE IM STA (04:29)
[2022-05-22] MEDS ORDERED: FUROSEMIDE 80 MG TAB PO STA (04:29)
--- NOTE | 2022-05-22 04:31 | ED ---
Extremity Problem HPI - General Chief complaint: Extremity Problem,Nontraumatic Stated complaint: Feet Swelling Time Seen by Provider: 05/22/22 04:28 Source: patient, RN notes reviewed, old records reviewed Mode of arrival: ambulatory Limitations: no limitations - History of Present Illness Initial comments: This is a 66-year-old male well-known area for evaluation. Patient is safe for evaluation of significant looks repainted swelling and edema. History of similar in the past. Patient has history of lung disease and heart disease does occasionally get fluid on his legs. Increased. Patient is not currently on diuresis. Patient is no shortness of breath or chest pain MD Complaint: extremity pain, extremity swelling -: days(s) Location: bilateral lower extremity History of Same: Yes Radiation: proximal, distal Severity scale (1-10): 7 Quality: aching Consistency: constant Improves with: nothing Worsens with: nothing Associated Symptoms: denies other symptoms - Related Data Home Medications Medication Instructions Recorded Confirmed Morphine Sulfate ER [Ms Contin] 30 mg PO Q8H 10/10/17 02/26/22 tiZANidine [Zanaflex] 4 mg PO Q8H PRN 02/26/18 02/26/22 oxyCODONE-APAP 10-325MG [Percocet 1 tab PO Q8H 01/02/20 02/26/22 10-325 mg] Nitroglycerin Sl Tabs [Nitrostat] 0.4 mg SL Q5M PRN 07/13/21 02/26/22 Pregabalin [Lyrica] 100 mg PO BID 09/11/21 02/26/22 SUMAtriptan succinate [Imitrex] 25 mg PO DAILY PRN 01/04/22 02/26/22 Previous Rx's Medication Instructions Recorded Furosemide [Lasix] 20 mg PO DAILY 30 Days #30 tab 01/06/22 Pantoprazole Sodium [Protonix] 40 mg PO AC-BRKFST #14 tab 01/16/22 Ondansetron Odt [Zofran ODT] 4 mg PO Q8HR PRN #10 tab 02/18/22 Clopidogrel [Plavix] 75 mg PO DAILY 30 Days #30 tab 02/26/22 Fenofibrate 50 mg PO DAILY 30 Days #30 capsule 02/26/22 Metoprolol Succinate [Toprol XL] 150 mg PO DAILY 30 Days #45 tab 02/26/22 amLODIPine [Norvasc] 5 mg PO BID 30 Days #60 tab 02/26/22 hydrALAZINE HCL [Apresoline] 50 mg PO TID-W/MEALS 30 Days #90 02/26/22 tab lisinopriL [Zestril] 40 mg PO DAILY 30 Days #30 tab 02/26/22 Furosemide [Lasix] 40 mg PO BID #10 tablet 05/22/22 metOLazone [Zaroxolyn] 5 mg PO DAILY #5 tablet 05/27/22 Allergies Allergy/AdvReac Type Severity Reaction Status Date / Time ibuprofen [From Motrin] Allergy Rash/Hives Verified 05/27/22 03:02 ketorolac tromethamine Allergy Rash/Hives Verified 05/27/22 03:02 [From Toradol] Review of Systems ROS Statement: Those systems with pertinent positive or pertinent negative responses have been documented in the HPI. ROS Other: All systems not noted in ROS Statement are negative. Past Medical History Past Medical History: Coronary Artery Disease (CAD), Chest Pain / Angina, COPD, Deep Vein Thrombosis (DVT), GERD/Reflux, Hyperlipidemia, Hypertension, Osteoarthritis (OA), Thyroid Disorder Additional Past Medical History / Comment(s): Occasional palpitations, gastritis, small hiatal hernia, diverticular dx, pt states years ago he had PUD, chronic low back pain, chronic pain syndrome, migraines, DVT L arm, numbness/tingling bilateral lower legs, bilateral past R hand fracture, arthritis multiple joints, hyperthyroid, sinus problems. History of Any Multi-Drug Resistant Organisms: None Reported Past Surgical History: Back Surgery, Cholecystectomy, Heart Catheterization With Stent, Orthopedic Surgery Additional Past Surgical History / Comment(s): EGDs/colonoscopies, multiple low back surgeries, bilateral arm and bilateral thigh surgeries for brown recluse spider bites with infection, morphine pain pump insertion and removal due to infection, PCI with stents, L rotator cuff repair, L knee arthroscopy, cervical fusion/cage, R cataract removal. 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 He lived to be 82 yrs old. Mother History Unknown: Yes Family Medical History: Hypertension, Myocardial Infarction ([place]) Additional Family Medical History / Comment(s): Mother of a [place] at the age of 55yrs. Brother(s) Family Medical History: Cancer, COPD Additional Family Medical History / Comment(s): Leukemia General Exam Limitations: no limitations General appearance: alert, in no apparent distress Head exam: Present: atraumatic, normocephalic, normal inspection Eye exam: Present: normal appearance, PERRL, EOMI. Absent: scleral icterus, conjunctival injection, periorbital swelling ENT exam: Present: normal exam, mucous membranes moist Neck exam: Present: normal inspection. Absent: tenderness, meningismus, lymphadenopathy Respiratory exam: Present: normal lung sounds bilaterally. Absent: respiratory distress, wheezes, rales, rhonchi, stridor Cardiovascular Exam: Present: regular rate, normal rhythm, normal heart sounds. Absent: systolic murmur, diastolic murmur, rubs, gallop, clicks GI/Abdominal exam: Present: soft, normal bowel sounds. Absent: distended, tenderness, guarding, rebound, rigid Extremities exam: Present: normal inspection, full ROM, tenderness, normal capillary refill, pedal edema, other (Significant bilateral leg edema). Absent: joint swelling, calf tenderness Back exam: Present: normal inspection Neurological exam: Present: alert, oriented X3, CN II-XII intact Psychiatric exam: Present: normal affect, normal mood Skin exam: Present: warm, dry, intact, normal color. Absent: rash Course Vital Signs 05/22/22 04:05 Temperature 98.1 F Pulse Rate 81 Respiratory 18 Rate Blood Pressure 142/82 O2 Sat by Pulse 96 Oximetry - Reevaluation(s) Reevaluation #1: 05/22/22 Medical record is reviewed Reevaluation #2: 05/22/22 Patient informed results and questions are answered Reevaluation #3: 05/22/22 Patient feels good and can be discharged home Medical Decision Making - Medical Decision Making 66 male well-known to our ER coming in for lower extremity edema patient given pain control, diuresis and he can be discharged home Disposition Clinical Impression: Bilateral leg edema Disposition: HOME SELF-CARE Condition: Good Instructions (If sedation given, give patient instructions): Leg Edema (ED) Prescriptions: Furosemide [Lasix] 40 mg PO BID #10 tablet Is patient prescribed a controlled substance at d/c from ED?: No Referrals: None,Stated [Primary Care Provider] - 1-2 days Time of Disposition: 04:45
== END 2022-05-22 04:51 | disposition home or self-care (01) ==
LOC: EC 04:03
DX: R60.0 Localized edema (principal); J44.9 Chronic obstructive pulmonary disease, unspecified; E78.5 Hyperlipidemia, unspecified; I10 Essential (primary) hypertension; K21.9 Gastro-esophageal reflux disease without esophagitis; Z79.83 Long term (current) use of bisphosphonates; Z87.891 Personal history of nicotine dependence; Z88.6 Allergy status to analgesic agent
CPT/HCPCS: 99283; 96372; J1170

== ENCOUNTER 2022-05-27 02:53 | Emergency (ER) | payer MEDICARE, OTHER ==
[2022-05-27 03:03] VITALS: PULSE 85; TEMP 98.9
[2022-05-27] MEDS ORDERED: metOLazone 5 MG TAB PO STA (05:14)
[2022-05-27] MEDS ORDERED: HYDROmorphone 1 MG/ML 1 ML SYRINGE IM STA (05:14)
[2022-05-27] MEDS ORDERED: diphenhydrAMINE 50 MG CAP PO STA (05:14)
[2022-05-27] MEDS ORDERED: ACET/COD 300 MG/30 MG STARTER PACK 6 TAB BTL PO STA (05:17)
--- NOTE | 2022-05-27 05:17 | ED ---
Extremity Problem HPI - General Chief complaint: Extremity Problem,Nontraumatic Stated complaint: Feet Swelling Time Seen by Provider: 05/27/22 04:49 Source: patient, RN notes reviewed, old records reviewed Mode of arrival: ambulatory Limitations: no limitations - History of Present Illness Initial comments: This is a 66-year-old male to the emergency department for evaluation patient presents today for evaluation regards to leg pain bilaterally pain bilateral leg edema. No traumas no travel history history of leg edema. No chest pain or shortness of breath. Patient states he needs pain medication. Patient is well- known to our facility MD Complaint: extremity pain, extremity swelling -: days(s) Location: left, right, bilateral lower extremity History of Same: Yes -: Yes myalgia, Yes arthralgia Radiation: proximal Severity scale (1-10): 6 Quality: aching Consistency: constant Improves with: nothing Worsens with: weight bearing, walking Associated Symptoms: denies other symptoms - Related Data Home Medications Medication Instructions Recorded Confirmed Morphine Sulfate ER [Ms Contin] 30 mg PO Q8H 10/10/17 02/26/22 tiZANidine [Zanaflex] 4 mg PO Q8H PRN 02/26/18 02/26/22 oxyCODONE-APAP 10-325MG [Percocet 1 tab PO Q8H 01/02/20 02/26/22 10-325 mg] Nitroglycerin Sl Tabs [Nitrostat] 0.4 mg SL Q5M PRN 07/13/21 02/26/22 Pregabalin [Lyrica] 100 mg PO BID 09/11/21 02/26/22 SUMAtriptan succinate [Imitrex] 25 mg PO DAILY PRN 01/04/22 02/26/22 Previous Rx's Medication Instructions Recorded Furosemide [Lasix] 20 mg PO DAILY 30 Days #30 tab 01/06/22 Pantoprazole Sodium [Protonix] 40 mg PO AC-BRKFST #14 tab 01/16/22 Ondansetron Odt [Zofran ODT] 4 mg PO Q8HR PRN #10 tab 02/18/22 Clopidogrel [Plavix] 75 mg PO DAILY 30 Days #30 tab 02/26/22 Fenofibrate 50 mg PO DAILY 30 Days #30 capsule 02/26/22 Metoprolol Succinate [Toprol XL] 150 mg PO DAILY 30 Days #45 tab 02/26/22 amLODIPine [Norvasc] 5 mg PO BID 30 Days #60 tab 02/26/22 hydrALAZINE HCL [Apresoline] 50 mg PO TID-W/MEALS 30 Days #90 02/26/22 tab lisinopriL [Zestril] 40 mg PO DAILY 30 Days #30 tab 02/26/22 Furosemide [Lasix] 40 mg PO BID #10 tablet 05/22/22 metOLazone [Zaroxolyn] 5 mg PO DAILY #5 tablet 05/27/22 Allergies Allergy/AdvReac Type Severity Reaction Status Date / Time ibuprofen [From Motrin] Allergy Rash/Hives Verified 05/27/22 03:02 ketorolac tromethamine Allergy Rash/Hives Verified 05/27/22 03:02 [From Toradol] Review of Systems ROS Statement: Those systems with pertinent positive or pertinent negative responses have been documented in the HPI. ROS Other: All systems not noted in ROS Statement are negative. Past Medical History Past Medical History: Coronary Artery Disease (CAD), Chest Pain / Angina, COPD, Deep Vein Thrombosis (DVT), GERD/Reflux, Hyperlipidemia, Hypertension, Osteoarthritis (OA), Thyroid Disorder Additional Past Medical History / Comment(s): Occasional palpitations, gastritis, small hiatal hernia, diverticular dx, pt states years ago he had PUD, chronic low back pain, chronic pain syndrome, migraines, DVT L arm, numbness/tingling bilateral lower legs, bilateral past R hand fracture, arthritis multiple joints, hyperthyroid, sinus problems. History of Any Multi-Drug Resistant Organisms: None Reported Past Surgical History: Back Surgery, Cholecystectomy, Heart Catheterization With Stent, Orthopedic Surgery Additional Past Surgical History / Comment(s): EGDs/colonoscopies, multiple low back surgeries, bilateral arm and bilateral thigh surgeries for brown recluse spider bites with infection, morphine pain pump insertion and removal due to infection, PCI with stents, L rotator cuff repair, L knee arthroscopy, cervical fusion/cage, R cataract removal. 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 He lived to be 82 yrs old. Mother History Unknown: Yes Family Medical History: Hypertension, Myocardial Infarction ([place]) Additional Family Medical History / Comment(s): Mother of a [place] at the age of 55yrs. Brother(s) Family Medical History: Cancer, COPD Additional Family Medical History / Comment(s): Leukemia General Exam Limitations: no limitations General appearance: alert, in no apparent distress Head exam: Present: atraumatic, normocephalic, normal inspection Eye exam: Present: normal appearance, PERRL, EOMI. Absent: scleral icterus, conjunctival injection, periorbital swelling ENT exam: Present: normal exam, mucous membranes moist Neck exam: Present: normal inspection. Absent: tenderness, meningismus, lymphadenopathy Respiratory exam: Present: normal lung sounds bilaterally. Absent: respiratory distress, wheezes, rales, rhonchi, stridor Cardiovascular Exam: Present: regular rate, normal rhythm, normal heart sounds. Absent: systolic murmur, diastolic murmur, rubs, gallop, clicks GI/Abdominal exam: Present: soft, normal bowel sounds. Absent: distended, tenderness, guarding, rebound, rigid Extremities exam: Present: normal inspection, full ROM, normal capillary refill, pedal edema, joint swelling. Absent: tenderness, calf tenderness Back exam: Present: normal inspection Neurological exam: Present: alert, oriented X3, CN II-XII intact Psychiatric exam: Present: normal affect, normal mood Skin exam: Present: warm, dry, intact, normal color. Absent: rash Course Vital Signs 05/27/22 05/27/22 03:00 05:43 Temperature 98.9 F Pulse Rate 85 85 Respiratory 22 18 Rate Blood Pressure 146/59 161/73 O2 Sat by Pulse 98 97 Oximetry - Reevaluation(s) Reevaluation #1: 05/27/22 Medical records reviewed Reevaluation #2: 05/27/22 Patient informed results and questions answered Reevaluation #3: 05/27/22 Patient does currently feel improved Medical Decision Making - Medical Decision Making 66 male to the emergency department for evaluation of bilateral lower family pain and edema. History of bilateral leg edema. Patient will do attempt Diuresis medication and can be discharged home Disposition Clinical Impression: Bilateral leg edema Disposition: HOME SELF-CARE Condition: Good Instructions (If sedation given, give patient instructions): Leg Edema (ED) Prescriptions: metOLazone [Zaroxolyn] 5 mg PO DAILY #5 tablet Is patient prescribed a controlled substance at d/c from ED?: No Referrals: None,Stated [Primary Care Provider] - 1-2 days Time of Disposition: 05:30
[2022-05-27 05:45] VITALS: BP 161/73; RESP 18
== END 2022-05-27 05:45 | disposition home or self-care (01) ==
LOC: EC 02:53
DX: R22.43 Localized swelling, mass and lump, lower limb, bilateral (principal); J44.9 Chronic obstructive pulmonary disease, unspecified; E78.5 Hyperlipidemia, unspecified; I10 Essential (primary) hypertension; Z88.6 Allergy status to analgesic agent; Z87.891 Personal history of nicotine dependence
CPT/HCPCS: 99283; 96372; J1170

== ENCOUNTER 2022-06-11 01:10 | Emergency (ER) | payer MEDICARE, OTHER ==
[2022-06-11 01:18] VITALS: TEMP 97.6
[2022-06-11] MEDS ORDERED: GABAPENTIN 100 MG CAP PO STA (02:18)
[2022-06-11] MEDS ORDERED: diphenhydrAMINE 50 MG CAP PO STA (02:18)
[2022-06-11] MEDS ORDERED: FUROSEMIDE 20 MG TAB PO STA (02:18)
[2022-06-11] MEDS ORDERED: HYDROmorphone 1 MG/ML 1 ML SYRINGE IM STA (02:18)
--- NOTE | 2022-06-11 02:21 | ED ---
Extremity Problem HPI - General Chief complaint: Extremity Problem,Nontraumatic Stated complaint: swelling feet Time Seen by Provider: 06/11/22 01:20 Source: patient, RN notes reviewed, old records reviewed Mode of arrival: wheelchair Limitations: no limitations - History of Present Illness Initial comments: This is a 66-year-old male the ER today. Patient presents today to the emergency department for evaluation of bilateral lower extremity pain and swelling no chest pain or shortness of breath. Patient is well-known to emergency department for similar complaints. Sensation states the swelling is improving just can't seem to resolve. Multiple recent ER visits for the same. No shortness of breath no chest pain no other complaints MD Complaint: extremity pain, extremity swelling -: week(s) Location: bilateral lower extremity History of Same: Yes Radiation: none Severity scale (1-10): 5 Quality: aching Consistency: constant Worsens with: walking Associated Symptoms: denies other symptoms - Related Data Home Medications Medication Instructions Recorded Confirmed Morphine Sulfate ER [Ms Contin] 30 mg PO Q8H 10/10/17 02/26/22 tiZANidine [Zanaflex] 4 mg PO Q8H PRN 02/26/18 02/26/22 oxyCODONE-APAP 10-325MG [Percocet 1 tab PO Q8H 01/02/20 02/26/22 10-325 mg] Nitroglycerin Sl Tabs [Nitrostat] 0.4 mg SL Q5M PRN 07/13/21 02/26/22 Pregabalin [Lyrica] 100 mg PO BID 09/11/21 02/26/22 SUMAtriptan succinate [Imitrex] 25 mg PO DAILY PRN 01/04/22 02/26/22 Previous Rx's Medication Instructions Recorded Furosemide [Lasix] 20 mg PO DAILY 30 Days #30 tab 01/06/22 Pantoprazole Sodium [Protonix] 40 mg PO AC-BRKFST #14 tab 01/16/22 Ondansetron Odt [Zofran ODT] 4 mg PO Q8HR PRN #10 tab 02/18/22 Clopidogrel [Plavix] 75 mg PO DAILY 30 Days #30 tab 02/26/22 Fenofibrate 50 mg PO DAILY 30 Days #30 capsule 02/26/22 Metoprolol Succinate [Toprol XL] 150 mg PO DAILY 30 Days #45 tab 02/26/22 amLODIPine [Norvasc] 5 mg PO BID 30 Days #60 tab 02/26/22 hydrALAZINE HCL [Apresoline] 50 mg PO TID-W/MEALS 30 Days #90 02/26/22 tab lisinopriL [Zestril] 40 mg PO DAILY 30 Days #30 tab 02/26/22 Furosemide [Lasix] 40 mg PO BID #10 tablet 05/22/22 metOLazone [Zaroxolyn] 5 mg PO DAILY #5 tablet 05/27/22 Allergies Allergy/AdvReac Type Severity Reaction Status Date / Time ibuprofen [From Motrin] Allergy Rash/Hives Verified 06/11/22 09:23 ketorolac tromethamine Allergy Rash/Hives Verified 06/11/22 09:23 [From Toradol] Review of Systems ROS Statement: Those systems with pertinent positive or pertinent negative responses have been documented in the HPI. ROS Other: All systems not noted in ROS Statement are negative. Past Medical History Past Medical History: Coronary Artery Disease (CAD), Chest Pain / Angina, COPD, Deep Vein Thrombosis (DVT), GERD/Reflux, Hyperlipidemia, Hypertension, Osteoarthritis (OA), Thyroid Disorder Additional Past Medical History / Comment(s): Occasional palpitations, gastritis, small hiatal hernia, diverticular dx, pt states years ago he had PUD, chronic low back pain, chronic pain syndrome, migraines, DVT L arm, numbness/tingling bilateral lower legs, bilateral past R hand fracture, arthritis multiple joints, hyperthyroid, sinus problems. History of Any Multi-Drug Resistant Organisms: None Reported Past Surgical History: Back Surgery, Cholecystectomy, Heart Catheterization With Stent, Orthopedic Surgery Additional Past Surgical History / Comment(s): EGDs/colonoscopies, multiple low back surgeries, bilateral arm and bilateral thigh surgeries for brown recluse spider bites with infection, morphine pain pump insertion and removal due to infection, PCI with stents, L rotator cuff repair, L knee arthroscopy, cervical fusion/cage, R cataract removal. 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 He lived to be 82 yrs old. Mother History Unknown: Yes Family Medical History: Hypertension, Myocardial Infarction ([place]) Additional Family Medical History / Comment(s): Mother of a [place] at the age of 55yrs. Brother(s) Family Medical History: Cancer, COPD Additional Family Medical History / Comment(s): Leukemia General Exam Limitations: no limitations General appearance: alert, in no apparent distress Head exam: Present: atraumatic, normocephalic, normal inspection Eye exam: Present: normal appearance, PERRL, EOMI. Absent: scleral icterus, conjunctival injection, periorbital swelling ENT exam: Present: normal exam, mucous membranes moist Neck exam: Present: normal inspection. Absent: tenderness, meningismus, lymphadenopathy Respiratory exam: Present: normal lung sounds bilaterally. Absent: respiratory distress, wheezes, rales, rhonchi, stridor Cardiovascular Exam: Present: regular rate, normal rhythm, normal heart sounds. Absent: systolic murmur, diastolic murmur, rubs, gallop, clicks GI/Abdominal exam: Present: soft, normal bowel sounds. Absent: distended, tenderness, guarding, rebound, rigid Extremities exam: Present: normal inspection, full ROM, normal capillary refill. Absent: tenderness, pedal edema, joint swelling, calf tenderness Back exam: Present: normal inspection Neurological exam: Present: alert, oriented X3, CN II-XII intact Psychiatric exam: Present: normal affect, normal mood Skin exam: Present: warm, dry, intact, normal color. Absent: rash Course Vital Signs 06/11/22 06/11/22 01:14 02:41 Temperature 97.6 F 97.6 F Pulse Rate 84 87 Respiratory 16 18 Rate Blood Pressure 149/81 113/83 O2 Sat by Pulse 98 98 Oximetry - Reevaluation(s) Reevaluation #1: 06/11/22 Medical record is reviewed Reevaluation #2: 06/11/22 Patient symptoms are improved here in the ER Reevaluation #3: 06/11/22 Patient informed of results and questions answered Medical Decision Making - Medical Decision Making 66 male well-known to our emergency department. At this point patient given treatment plan, swelling is been much improved resides in prior but swelling. Patient controlled can be discharged home Disposition Clinical Impression: Bilateral leg edema Disposition: HOME SELF-CARE Condition: Good Instructions (If sedation given, give patient instructions): Leg Edema (ED) Is patient prescribed a controlled substance at d/c from ED?: No Referrals: None,Stated [Primary Care Provider] - 1-2 days Time of Disposition: 02:30
[2022-06-11 02:42] VITALS: BP 113/83; PULSE 87; RESP 18
== END 2022-06-11 02:43 | disposition home or self-care (01) ==
LOC: EC 01:10
DX: R22.43 Localized swelling, mass and lump, lower limb, bilateral (principal); I25.10 Atherosclerotic heart disease of native coronary artery without angina pectoris; K21.9 Gastro-esophageal reflux disease without esophagitis; E78.5 Hyperlipidemia, unspecified; I10 Essential (primary) hypertension; M19.90 Unspecified osteoarthritis, unspecified site; E07.9 Disorder of thyroid, unspecified; Z87.891 Personal history of nicotine dependence; Z88.6 Allergy status to analgesic agent; Z79.890 Hormone replacement therapy; Z79.899 Other long term (current) drug therapy
CPT/HCPCS: 99283; 96372; J1170

== ENCOUNTER 2022-06-11 09:14 | Emergency (ER) | payer MEDICARE, OTHER ==
[2022-06-11 09:23] VITALS: TEMP 97.4
[2022-06-11] MEDS ORDERED: FUROSEMIDE 20 MG TAB PO STA (09:53)
[2022-06-11] MEDS ORDERED: MORPHINE SULFATE 4 MG/ML SYRINGE IM STA (09:53)
--- NOTE | 2022-06-11 09:56 | ED ---
General Adult HPI - General Chief complaint: Extremity Problem,Nontraumatic Stated complaint: swollen feet Time Seen by Provider: 06/11/22 09:27 Source: patient, RN notes reviewed, old records reviewed Mode of arrival: ambulatory Limitations: no limitations - History of Present Illness Initial comments: Patient is a 66-year-old male with past medical history remarkable for chronic pain, cardiac disease, chronic lower extremity edema presents emergency Department complaining of pain in his feet. His presented multiple times for similar complaints for the last few days. Follow up with his pain doctor tomorrow. States he is low on his pain medications at home. He is complaining of right ankle pain. Nontraumatic. Attributed to increased swelling in his feet and ankles. He has chronic swelling of his feet and ankles secondary to cardiac disease. Has been taking less of his Lasix at home, as he is prescribed 40 in the morning and 20 at night. Has only been taking 20 and 20. Has presented with similar complaints over the last week or so, and he has been without his pain meds. He is well known to our staff here. - Related Data Home Medications Medication Instructions Recorded Confirmed Morphine Sulfate ER [Ms Contin] 30 mg PO Q8H 10/10/17 02/26/22 tiZANidine [Zanaflex] 4 mg PO Q8H PRN 02/26/18 02/26/22 oxyCODONE-APAP 10-325MG [Percocet 1 tab PO Q8H 01/02/20 02/26/22 10-325 mg] Nitroglycerin Sl Tabs [Nitrostat] 0.4 mg SL Q5M PRN 07/13/21 02/26/22 Pregabalin [Lyrica] 100 mg PO BID 09/11/21 02/26/22 SUMAtriptan succinate [Imitrex] 25 mg PO DAILY PRN 01/04/22 02/26/22 Previous Rx's Medication Instructions Recorded Furosemide [Lasix] 20 mg PO DAILY 30 Days #30 tab 01/06/22 Pantoprazole Sodium [Protonix] 40 mg PO AC-BRKFST #14 tab 01/16/22 Ondansetron Odt [Zofran ODT] 4 mg PO Q8HR PRN #10 tab 02/18/22 Clopidogrel [Plavix] 75 mg PO DAILY 30 Days #30 tab 02/26/22 Fenofibrate 50 mg PO DAILY 30 Days #30 capsule 02/26/22 Metoprolol Succinate [Toprol XL] 150 mg PO DAILY 30 Days #45 tab 02/26/22 amLODIPine [Norvasc] 5 mg PO BID 30 Days #60 tab 02/26/22 hydrALAZINE HCL [Apresoline] 50 mg PO TID-W/MEALS 30 Days #90 02/26/22 tab lisinopriL [Zestril] 40 mg PO DAILY 30 Days #30 tab 02/26/22 Furosemide [Lasix] 40 mg PO BID #10 tablet 05/22/22 metOLazone [Zaroxolyn] 5 mg PO DAILY #5 tablet 05/27/22 Allergies Allergy/AdvReac Type Severity Reaction Status Date / Time ibuprofen [From Motrin] Allergy Rash/Hives Verified 06/11/22 09:23 ketorolac tromethamine Allergy Rash/Hives Verified 06/11/22 09:23 [From Toradol] Review of Systems ROS Statement: Those systems with pertinent positive or pertinent negative responses have been documented in the HPI. Review of Systems: CONST: Denies fever EYES: Denies blurry vision ENT: Denies nasal congestion C/V: Denies Chest pain RESP: Denies shortness of breath GI: Denies abdominal pain : Denies dysuria SKIN: Denies rash. MSK: Endorses ankle pain NEURO: Denies headache ROS Other: All systems not noted in ROS Statement are negative. Past Medical History Past Medical History: Coronary Artery Disease (CAD), Chest Pain / Angina, COPD, Deep Vein Thrombosis (DVT), GERD/Reflux, Hyperlipidemia, Hypertension, Osteoarthritis (OA), Thyroid Disorder Additional Past Medical History / Comment(s): Occasional palpitations, gastritis, small hiatal hernia, diverticular dx, pt states years ago he had PUD, chronic low back pain, chronic pain syndrome, migraines, DVT L arm, numbness/tingling bilateral lower legs, bilateral past R hand fracture, arthritis multiple joints, hyperthyroid, sinus problems. History of Any Multi-Drug Resistant Organisms: None Reported Past Surgical History: Back Surgery, Cholecystectomy, Heart Catheterization With Stent, Orthopedic Surgery Additional Past Surgical History / Comment(s): EGDs/colonoscopies, multiple low back surgeries, bilateral arm and bilateral thigh surgeries for brown recluse spider bites with infection, morphine pain pump insertion and removal due to infection, PCI with stents, L rotator cuff repair, L knee arthroscopy, cervical fusion/cage, R cataract removal. 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 He lived to be 82 yrs old. Mother History Unknown: Yes Family Medical History: Hypertension, Myocardial Infarction ([place]) Additional Family Medical History / Comment(s): Mother of a [place] at the age of 55yrs. Brother(s) Family Medical History: Cancer, COPD Additional Family Medical History / Comment(s): Leukemia General Exam - General Exam Comments Initial Comments: General: Appears in no acute distress. HEAD: Normal with no signs of head trauma. EYES: PERRLA, EOMI, conjunctiva normal, no discharge. ENT: Hearing grossly intact, normal oropharynx. RESPIRATORY: Clear breath sounds bilaterally. No wheezes, rales, or rhonchi. C/V: Regular rate and rhythm. S1 and S2 auscultated, minimal pitting edema of the bilateral lower extremities that is symmetrical in the feet and ankles., peripheral pulses 2+ and intact throughout ABD: Abd is soft, nontender, nondistended EXT: Normal range of motion, no obvious deformity. Minimal tenderness to palpation over the lateral aspect of the right foot. Atraumatic. SKIN: No rashes or lesions observed on exposed skin. NEURO: Alert and oriented 4. No focal sensory strength deficits. Limitations: no limitations Course Vital Signs 06/11/22 06/11/22 09:20 10:20 Temperature 97.4 F L Pulse Rate 108 H 78 Respiratory 22 16 Rate Blood Pressure 147/76 127/68 O2 Sat by Pulse 98 99 Oximetry Medical Decision Making - Medical Decision Making Based the patient's presentation and physical exam, do believe he is expressing his chronic pain with chronic lower extremity edema. I did offer obtaining laboratory studies and possible ultrasounds as this is his fourth visit recently. He declines. He is asking for pain medications. I can provide him with a one-time dose of morphine as well as Lasix. Recommended he take his Lasix as prescribed and follow up with his pain doctor as well as cardiology. He was in agreement this plan. He has no other acute complaints at this time. I do believe it is safer to be discharged home. I instructed the patient to follow up with their PCP in the next 1-3 days. I explained that the patient should return to the emergency department if they experience any worsening symptoms. Strict return precautions were discussed with the patient. The patient expressed understanding of these instructions. I answered all questions that the patient had. The patient was discharged home in good condition with their prescriptions and follow up information. Disposition Clinical Impression: Chronic pain, Chronic edema Disposition: HOME SELF-CARE Condition: Good Additional Instructions: Take normally presribed lasix dosing to help with the edema. Follow up with PCP, cardiology, and pain doctor. Is patient prescribed a controlled substance at d/c from ED?: No Referrals: None,Stated [Primary Care Provider] - 1-2 days Nelson Almonte MD [STAFF PHYSICIAN] - 1-2 days Time of Disposition: 09:56
[2022-06-11 10:21] VITALS: BP 127/68; PULSE 78; RESP 16
== END 2022-06-11 10:20 | disposition home or self-care (01) ==
LOC: EC 09:14
DX: G89.29 Other chronic pain (principal); M25.571 Pain in right ankle and joints of right foot; R60.0 Localized edema; I25.10 Atherosclerotic heart disease of native coronary artery without angina pectoris; J44.9 Chronic obstructive pulmonary disease, unspecified; E78.5 Hyperlipidemia, unspecified; Z86.718 Personal history of other venous thrombosis and embolism; Z87.891 Personal history of nicotine dependence; Z88.6 Allergy status to analgesic agent
CPT/HCPCS: 99283; 96372; J2270

== ENCOUNTER 2022-06-23 02:36 | Emergency (ER) | payer MEDICARE, OTHER ==
--- NOTE | 2022-06-23 02:39 | ED ---
Recheck HPI - General Stated Complaint: Bilateral Feet Swelling Time Seen by Provider: 06/23/22 02:38 - Related Data Home Medications Medication Instructions Recorded Confirmed Morphine Sulfate ER [Ms Contin] 30 mg PO Q8H 10/10/17 02/26/22 tiZANidine [Zanaflex] 4 mg PO Q8H PRN 02/26/18 02/26/22 oxyCODONE-APAP 10-325MG [Percocet 1 tab PO Q8H 01/02/20 02/26/22 10-325 mg] Nitroglycerin Sl Tabs [Nitrostat] 0.4 mg SL Q5M PRN 07/13/21 02/26/22 Pregabalin [Lyrica] 100 mg PO BID 09/11/21 02/26/22 SUMAtriptan succinate [Imitrex] 25 mg PO DAILY PRN 01/04/22 02/26/22 Previous Rx's Medication Instructions Recorded Furosemide [Lasix] 20 mg PO DAILY 30 Days #30 tab 01/06/22 Pantoprazole Sodium [Protonix] 40 mg PO AC-BRKFST #14 tab 01/16/22 Ondansetron Odt [Zofran ODT] 4 mg PO Q8HR PRN #10 tab 02/18/22 Clopidogrel [Plavix] 75 mg PO DAILY 30 Days #30 tab 02/26/22 Fenofibrate 50 mg PO DAILY 30 Days #30 capsule 02/26/22 Metoprolol Succinate [Toprol XL] 150 mg PO DAILY 30 Days #45 tab 02/26/22 amLODIPine [Norvasc] 5 mg PO BID 30 Days #60 tab 02/26/22 hydrALAZINE HCL [Apresoline] 50 mg PO TID-W/MEALS 30 Days #90 02/26/22 tab lisinopriL [Zestril] 40 mg PO DAILY 30 Days #30 tab 02/26/22 Furosemide [Lasix] 40 mg PO BID #10 tablet 05/22/22 metOLazone [Zaroxolyn] 5 mg PO DAILY #5 tablet 05/27/22 Furosemide [Lasix] 40 mg PO BID #10 tablet 06/23/22 Allergies Allergy/AdvReac Type Severity Reaction Status Date / Time ibuprofen [From Motrin] Allergy Rash/Hives Verified 06/23/22 02:40 ketorolac tromethamine Allergy Rash/Hives Verified 06/23/22 02:40 [From Toradol] Review of Systems ROS Statement: Those systems with pertinent positive or pertinent negative responses have been documented in the HPI. ROS Other: All systems not noted in ROS Statement are negative. Past Medical History Past Medical History: Coronary Artery Disease (CAD), Chest Pain / Angina, COPD, Deep Vein Thrombosis (DVT), GERD/Reflux, Hyperlipidemia, Hypertension, Osteoarthritis (OA), Thyroid Disorder Additional Past Medical History / Comment(s): Occasional palpitations, gastritis, small hiatal hernia, diverticular dx, pt states years ago he had PUD, chronic low back pain, chronic pain syndrome, migraines, DVT L arm, numbness/tingling bilateral lower legs, bilateral past R hand fracture, arthritis multiple joints, hyperthyroid, sinus problems. History of Any Multi-Drug Resistant Organisms: None Reported Past Surgical History: Back Surgery, Cholecystectomy, Heart Catheterization With Stent, Orthopedic Surgery Additional Past Surgical History / Comment(s): EGDs/colonoscopies, multiple low back surgeries, bilateral arm and bilateral thigh surgeries for brown recluse spider bites with infection, morphine pain pump insertion and removal due to infection, PCI with stents, L rotator cuff repair, L knee arthroscopy, cervical fusion/cage, R cataract removal. 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 He lived to be 82 yrs old. Mother History Unknown: Yes Family Medical History: Hypertension, Myocardial Infarction ([place]) Additional Family Medical History / Comment(s): Mother of a [place] at the age of 55yrs. Brother(s) Family Medical History: Cancer, COPD Additional Family Medical History / Comment(s): Leukemia Course Vital Signs 06/23/22 02:37 Temperature 97.9 F Pulse Rate 77 Respiratory 22 Rate Blood Pressure 127/66 O2 Sat by Pulse 96 Oximetry Disposition Clinical Impression: Bilateral leg edema Disposition: HOME SELF-CARE Condition: Fair Instructions (If sedation given, give patient instructions): Leg Edema (ED) Prescriptions: Furosemide [Lasix] 40 mg PO BID #10 tablet Is patient prescribed a controlled substance at d/c from ED?: No Referrals: None,Stated [Primary Care Provider] - 1-2 days
[2022-06-23 02:40] VITALS: BP 127/66; PULSE 77; RESP 22; TEMP 97.9
[2022-06-23] MEDS ORDERED: metOLazone 5 MG TAB PO STA (02:59)
[2022-06-23] MEDS ORDERED: FUROSEMIDE 20 MG TAB PO STA (02:59)
[2022-06-23] MEDS ORDERED: diphenhydrAMINE 50 MG CAP PO STA (03:01)
[2022-06-23] MEDS ORDERED: HYDROmorphone 1 MG/ML 1 ML SYRINGE IM STA (03:01)
== END 2022-06-23 03:24 | disposition home or self-care (01) ==
LOC: EC 02:36
DX: R60.0 Localized edema (principal); I25.10 Atherosclerotic heart disease of native coronary artery without angina pectoris; J44.9 Chronic obstructive pulmonary disease, unspecified; E78.5 Hyperlipidemia, unspecified; I10 Essential (primary) hypertension; M19.90 Unspecified osteoarthritis, unspecified site; E05.90 Thyrotoxicosis, unspecified without thyrotoxic crisis or storm; Z86.718 Personal history of other venous thrombosis and embolism; Z87.891 Personal history of nicotine dependence; Z88.6 Allergy status to analgesic agent
CPT/HCPCS: 99283; 96372; J1170

== ENCOUNTER → 2022-06-26 | Outpatient (CLI) | payer MEDICARE, OTHER ==
[2022-06-27 01:15] LABS: African American GFR (CKD) 105.9 (60.0-200.0); Anion Gap 14.7 mmol/L (10.00-18.00); BUN/Creat Ratio 15.98 Ratio (12.00-20.00); Blood Urea Nitrogen 13.6 mg/dL (9.0-27.0); Calcium 9.5 mg/dL (8.7-10.3); Carbon Dioxide 19.3 mmol/L (20.0-27.5); Non-African American GFR(CKD) 91.4 (60.0-200.0); Potassium 4.3 mmol/L (3.5-5.5)
== END | disposition home or self-care (01) ==
LOC: LABWHC1 15:25
PROVIDERS: ATTEND Internal Medicine Interventional Cardiology
DX: I25.10 Atherosclerotic heart disease of native coronary artery without angina pectoris (principal)
CPT/HCPCS: 36415; 80048; 83880

== ENCOUNTER 2022-07-07 01:50 | Emergency (ER) | payer MEDICARE, OTHER ==
[2022-07-07 02:21] VITALS: RESP 18; TEMP 98
[2022-07-07 05:18] VITALS: BP 136/91; PULSE 73
== END 2022-07-07 05:52 | disposition left against medical advice (07) ==
LOC: EC 01:50
DX: Z53.21 Procedure and treatment not carried out due to patient leaving prior to being seen by health care provider (principal)
CPT/HCPCS: 99499

== ENCOUNTER 2022-07-08 11:17 | Emergency (ER) | payer MEDICARE, OTHER ==
[2022-07-08 11:26] VITALS: RESP 18; TEMP 97.8
[2022-07-08] MEDS ORDERED: DEXAMETHASONE SOD PHOSPHATE 10 MG/ML 1 ML VIAL IM STA (12:28)
[2022-07-08] MEDS ORDERED: ONDANSETRON 4 MG TAB PO STA (12:29)
[2022-07-08] MEDS ORDERED: diphenhydrAMINE 50 MG/ML 1 ML VIAL IM STA (12:29)
[2022-07-08] MEDS ORDERED: HYDROmorphone 0.5 MG/0.5 ML SYRINGE IM STA (13:44)
--- NOTE | 2022-07-08 14:31 | ED ---
General Adult HPI - General Chief complaint: Headache Stated complaint: headache Time Seen by Provider: 07/08/22 12:00 Source: patient Mode of arrival: ambulatory - History of Present Illness Initial comments: Patient is a 66-year-old male with past medical history of migraines who presents to the emergency department with a chief complaint of migraine. Patient states it started yesterday. States that the migraine feels typical of his previous migraines. Admits to nausea and one episode of vomiting. Took abortive medication without relief. Has appointment with his pain specialist on for steroid injection for his migraines. Denies fever, chills, neck pain, visual symptoms,shortness of breath, chest pain, and other concerns. - Related Data Home Medications Medication Instructions Recorded Confirmed Morphine Sulfate ER [Ms Contin] 30 mg PO Q8H 10/10/17 02/26/22 tiZANidine [Zanaflex] 4 mg PO Q8H PRN 02/26/18 02/26/22 oxyCODONE-APAP 10-325MG [Percocet 1 tab PO Q8H 01/02/20 02/26/22 10-325 mg] Nitroglycerin Sl Tabs [Nitrostat] 0.4 mg SL Q5M PRN 07/13/21 02/26/22 Pregabalin [Lyrica] 100 mg PO BID 09/11/21 02/26/22 SUMAtriptan succinate [Imitrex] 25 mg PO DAILY PRN 01/04/22 02/26/22 Previous Rx's Medication Instructions Recorded Furosemide [Lasix] 20 mg PO DAILY 30 Days #30 tab 01/06/22 Pantoprazole Sodium [Protonix] 40 mg PO AC-BRKFST #14 tab 01/16/22 Ondansetron Odt [Zofran ODT] 4 mg PO Q8HR PRN #10 tab 02/18/22 Clopidogrel [Plavix] 75 mg PO DAILY 30 Days #30 tab 02/26/22 Fenofibrate 50 mg PO DAILY 30 Days #30 capsule 02/26/22 Metoprolol Succinate [Toprol XL] 150 mg PO DAILY 30 Days #45 tab 02/26/22 amLODIPine [Norvasc] 5 mg PO BID 30 Days #60 tab 02/26/22 hydrALAZINE HCL [Apresoline] 50 mg PO TID-W/MEALS 30 Days #90 04/06/22 tab lisinopriL [Zestril] 40 mg PO DAILY 30 Days #30 tab 02/26/22 Furosemide [Lasix] 40 mg PO BID #10 tablet 05/22/22 metOLazone [Zaroxolyn] 5 mg PO DAILY #5 tablet 05/27/22 Furosemide [Lasix] 40 mg PO BID #10 tablet 06/23/22 Allergies Allergy/AdvReac Type Severity Reaction Status Date / Time ibuprofen [From Motrin] Allergy Rash/Hives Verified 07/08/22 11:26 ketorolac tromethamine Allergy Rash/Hives Verified 07/08/22 11:26 [From Toradol] Review of Systems ROS Statement: Those systems with pertinent positive or pertinent negative responses have been documented in the HPI. ROS Other: All systems not noted in ROS Statement are negative. Past Medical History Past Medical History: Coronary Artery Disease (CAD), Chest Pain / Angina, COPD, Deep Vein Thrombosis (DVT), GERD/Reflux, Hyperlipidemia, Hypertension, Osteoarthritis (OA), Thyroid Disorder Additional Past Medical History / Comment(s): Occasional palpitations, ga stritis, small hiatal hernia, diverticular dx, pt states years ago he had PUD, chronic low back pain, chronic pain syndrome, migraines, DVT L arm, numbness/tingling bilateral lower legs, bilateral past R hand fracture, arthritis multiple joints, hyperthyroid, sinus problems. History of Any Multi-Drug Resistant Organisms: None Reported Past Surgical History: Back Surgery, Cholecystectomy, Heart Catheterization With Stent, Orthopedic Surgery Additional Past Surgical History / Comment(s): EGDs/colonoscopies, multiple low back surgeries, bilateral arm and bilateral thigh surgeries for brown recluse spider bites with infection, morphine pain pump insertion and removal due to infection, PCI with stents, L rotator cuff repair, L knee arthroscopy, cervical fusion/cage, R cataract removal. 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 He lived to be 82 yrs old. Mother History Unknown: Yes Family Medical History: Hypertension, Myocardial Infarction ([place]) Additional Family Medical History / Comment(s): Mother of a [place] at the age of 55yrs. Brother(s) Family Medical History: Cancer, COPD Additional Family Medical History / Comment(s): Leukemia General Exam General appearance: alert, in no apparent distress Head exam: Present: atraumatic, normocephalic, normal inspection Eye exam: Present: normal appearance, PERRL, EOMI. Absent: scleral icterus, conjunctival injection, periorbital swelling Neck exam: Present: normal inspection, full ROM. Absent: tenderness, meningismus Respiratory exam: Present: normal lung sounds bilaterally. Absent: respiratory distress, wheezes, rales, rhonchi, stridor Cardiovascular Exam: Present: regular rate, normal rhythm, normal heart sounds. Absent: systolic murmur, diastolic murmur, rubs, gallop, clicks Neurological exam: Present: alert, oriented X3, CN II-XII intact Psychiatric exam: Present: normal affect, normal mood Skin exam: Present: warm, dry, intact, normal color. Absent: rash Course Vital Signs 07/08/22 07/08/22 11:23 14:39 Temperature 97.8 F Pulse Rate 79 75 Respiratory 18 18 Rate Blood Pressure 136/74 127/78 O2 Sat by Pulse 100 99 Oximetry Medical Decision Making - Medical Decision Making This is a 66-year-old male who presents with migraine. Thorough history and examination were performed. Vitals stable. Patient given migraine cocktail with no relief. He then requested Dilaudid as he states it works well for his migraines. He was given 1 dose of Dilaudid with improvement of symptoms. He is instructed to follow-up with his pain specialist as scheduled. Dr. Shah is my attending. Disposition Clinical Impression: Migraine Disposition: HOME SELF-CARE Condition: Good Instructions (If sedation given, give patient instructions): Migraine Headache (ED) Additional Instructions: Follow-up with your pain specialist at appointment this week as scheduled. Return to the emergency department if you experience new, concerning, or worsening symptoms. Is patient prescribed a controlled substance at d/c from ED?: No Referrals: None,Stated [Primary Care Provider] - 1-2 days Time of Disposition: 14:31
[2022-07-08 14:40] VITALS: BP 127/78; PULSE 75
== END 2022-07-08 14:40 | disposition home or self-care (01) ==
LOC: EC 11:17
DX: G43.909 Migraine, unspecified, not intractable, without status migrainosus (principal); J44.9 Chronic obstructive pulmonary disease, unspecified; E78.5 Hyperlipidemia, unspecified; I10 Essential (primary) hypertension; Z87.891 Personal history of nicotine dependence; Z82.49 Family history of ischemic heart disease and other diseases of the circulatory system; Z88.8 Allergy status to other drugs, medicaments and biological substances; Z88.6 Allergy status to analgesic agent
CPT/HCPCS: 99283; 96372; J1200; J1100; J1170

== ENCOUNTER 2022-07-24 02:08 | Emergency (ER) | payer MEDICARE, OTHER ==
[2022-07-24 02:16] VITALS: PULSE 95; RESP 18; TEMP 98
[2022-07-24 02:17] VITALS: BP 128/89
[2022-07-24] MEDS ORDERED: diphenhydrAMINE 50 MG CAP PO STA (02:38)
[2022-07-24] MEDS ORDERED: HYDROmorphone 1 MG/ML 1 ML SYRINGE IM STA (02:38)
[2022-07-24] MEDS ORDERED: PROCHLORPERAZINE 10 MG TAB PO ONE (02:45)
--- NOTE | 2022-07-24 03:12 | ED ---
Headache HPI - General Chief Complaint: Headache Stated Complaint: Migraine Time Seen by Provider: 07/24/22 02:17 Source: RN notes reviewed, old records reviewed Mode of arrival: ambulatory Limitations: no limitations - History of Present Illness Initial Comments: This is a 66-year-old male to the emergency department for evaluation. Patient presents today for evaluation regards to headache. Patient is known to have chronic migraines. Patient states this feels like his normal chronic migraine. Multiple episodes of nausea vomiting tonight. No trauma no fevers no other complaints. MD Complaint: headache, "migraine" -: hour(s) Onset Description: gradual Location: right, left, temporal Severity: severe Severity scale (1-10): 10 Quality: aching, throbbing, pulsatile Consistency: constant Improves With: nothing Worsens With: none Context: occurred at rest Associated Symptoms: nausea, vomiting Other Symptoms: other (0) Treatments Prior to Arrival: none - Related Data Home Medications Medication Instructions Recorded Confirmed Morphine Sulfate ER [Ms Contin] 30 mg PO Q8H 10/10/17 02/26/22 tiZANidine [Zanaflex] 4 mg PO Q8H PRN 02/26/18 02/26/22 oxyCODONE-APAP 10-325MG [Percocet 1 tab PO Q8H 01/02/20 02/26/22 10-325 mg] Nitroglycerin Sl Tabs [Nitrostat] 0.4 mg SL Q5M PRN 07/13/21 02/26/22 Pregabalin [Lyrica] 100 mg PO BID 09/11/21 02/26/22 SUMAtriptan succinate [Imitrex] 25 mg PO DAILY PRN 01/04/22 02/26/22 Previous Rx's Medication Instructions Recorded Furosemide [Lasix] 20 mg PO DAILY 30 Days #30 tab 01/06/22 Pantoprazole Sodium [Protonix] 40 mg PO AC-BRKFST #14 tab 01/16/22 Ondansetron Odt [Zofran ODT] 4 mg PO Q8HR PRN #10 tab 02/18/22 Clopidogrel [Plavix] 75 mg PO DAILY 30 Days #30 tab 02/26/22 Fenofibrate 50 mg PO DAILY 30 Days #30 capsule 02/26/22 Metoprolol Succinate [Toprol XL] 150 mg PO DAILY 30 Days #45 tab 02/26/22 amLODIPine [Norvasc] 5 mg PO BID 30 Days #60 tab 02/26/22 hydrALAZINE HCL [Apresoline] 50 mg PO TID-W/MEALS 30 Days #90 02/26/22 tab lisinopriL [Zestril] 40 mg PO DAILY 30 Days #30 tab 02/26/22 Furosemide [Lasix] 40 mg PO BID #10 tablet 05/22/22 metOLazone [Zaroxolyn] 5 mg PO DAILY #5 tablet 05/27/22 Furosemide [Lasix] 40 mg PO BID #10 tablet 06/23/22 Allergies Allergy/AdvReac Type Severity Reaction Status Date / Time ibuprofen [From Motrin] Allergy Rash/Hives Verified 07/24/22 02:13 ketorolac tromethamine Allergy Rash/Hives Verified 07/24/22 02:13 [From Toradol] Review of Systems ROS Statement: Those systems with pertinent positive or pertinent negative responses have been documented in the HPI. ROS Other: All systems not noted in ROS Statement are negative. Past Medical History Past Medical History: Coronary Artery Disease (CAD), Chest Pain / Angina, COPD, Deep Vein Thrombosis (DVT), GERD/Reflux, Hyperlipidemia, Hypertension, Osteoarthritis (OA), Thyroid Disorder Additional Past Medical History / Comment(s): Occasional palpitations, gastritis, small hiatal hernia, diverticular dx, pt states years ago he had PUD, chronic low back pain, chronic pain syndrome, migraines, DVT L arm, numbness/tingling bilateral lower legs, bilateral past R hand fracture, arthritis multiple joints, hyperthyroid, sinus problems. History of Any Multi-Drug Resistant Organisms: None Reported Past Surgical History: Back Surgery, Cholecystectomy, Heart Catheterization With Stent, Orthopedic Surgery Additional Past Surgical History / Comment(s): EGDs/colonoscopies, multiple low back surgeries, bilateral arm and bilateral thigh surgeries for brown recluse spider bites with infection, morphine pain pump insertion and removal due to infection, PCI with stents, L rotator cuff repair, L knee arthroscopy, cervical fusion/cage, R cataract removal. 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 states he was "down for 8 minutes" Date of Last Stent Placement:: 11/20/17 Past Psychological History: No Psychological Hx Reported Smoking Status: Former smoker Past Alcohol Use History: None Reported Past Drug Use History: None Reported - Past Family History Father Family Medical History: No Reported History Additional Family Medical History / Comment(s): Father had back problems. He lived to be 82 yrs old. Mother History Unknown: Yes Family Medical History: Hypertension, Myocardial Infarction ([place]) Additional Family Medical History / Comment(s): Mother of a [place] at the age of 55yrs. Brother(s) Family Medical History: Cancer, COPD Additional Family Medical History / Comment(s): Leukemia General Exam Limitations: no limitations General appearance: alert, in no apparent distress Head exam: Present: atraumatic, normocephalic, normal inspection Eye exam: Present: normal appearance, PERRL, EOMI. Absent: scleral icterus, conjunctival injection, periorbital swelling ENT exam: Present: normal exam, mucous membranes moist Neck exam: Present: normal inspection. Absent: tenderness, meningismus, lymphadenopathy Respiratory exam: Present: normal lung sounds bilaterally. Absent: respiratory distress, wheezes, rales, rhonchi, stridor Cardiovascular Exam: Present: regular rate, normal rhythm, normal heart sounds. Absent: systolic murmur, diastolic murmur, rubs, gallop, clicks GI/Abdominal exam: Present: soft, normal bowel sounds. Absent: distended, tenderness, guarding, rebound, rigid Extremities exam: Present: normal inspection, full ROM, normal capillary refill. Absent: tenderness, pedal edema, joint swelling, calf tenderness Back exam: Present: normal inspection Neurological exam: Present: alert, oriented X3, CN II-XII intact Psychiatric exam: Present: normal affect, normal mood Skin exam: Present: warm, dry, intact, normal color. Absent: rash Course Vital Signs 07/24/22 02:13 Temperature 98 F Pulse Rate 95 Respiratory 18 Rate Blood Pressure 128/89 O2 Sat by Pulse 98 Oximetry - Reevaluation(s) Reevaluation #1: 07/24/22 03:11 Medical record is reviewed Reevaluation #2: 07/24/22 03:11 Patient symptoms are improved here in the ER Reevaluation #3: 07/24/22 03:11 Patient informed results and questions answered Medical Decision Making - Medical Decision Making 66 male presents today for evaluation of headache migraine headache similar to prior migraines. Headache resolved here in the ER patient can be discharged home Disposition Clinical Impression: Intractable headache, Migraine Disposition: HOME SELF-CARE Condition: Good Instructions (If sedation given, give patient instructions): Acute Headache (ED) Is patient prescribed a controlled substance at d/c from ED?: No Referrals: None,Stated [Primary Care Provider] - 1-2 days Time of Disposition: 03:10
== END 2022-07-24 04:21 | disposition home or self-care (01) ==
LOC: EC 02:08
DX: G43.919 Migraine, unspecified, intractable, without status migrainosus (principal); I25.10 Atherosclerotic heart disease of native coronary artery without angina pectoris; J44.9 Chronic obstructive pulmonary disease, unspecified; E78.5 Hyperlipidemia, unspecified; I10 Essential (primary) hypertension; M19.90 Unspecified osteoarthritis, unspecified site; E05.90 Thyrotoxicosis, unspecified without thyrotoxic crisis or storm; Z86.718 Personal history of other venous thrombosis and embolism; Z87.891 Personal history of nicotine dependence; Z88.6 Allergy status to analgesic agent
CPT/HCPCS: 99283; 96372; S0183; J1170

== ENCOUNTER 2022-09-21 23:22 | Emergency (ER) | payer MEDICARE, OTHER ==
[2022-09-21 23:26] VITALS: TEMP 98.2
[2022-09-22] MEDS ORDERED: ONDANSETRON ODT 4 MG TAB PO STA (00:32)
[2022-09-22] MEDS ORDERED: HYDROmorphone 1 MG/ML 1 ML SYRINGE IM STA (00:32)
--- NOTE | 2022-09-22 00:34 | ED ---
General Adult HPI - General Chief complaint: Headache Stated complaint: Migraine Time Seen by Provider: 09/22/22 00:22 Source: patient, RN notes reviewed Mode of arrival: ambulatory Limitations: no limitations - History of Present Illness Initial comments: 66-year-old male presents to the emergency department for evaluation of migraine headache. Patient reports history of chronic migraines and states this is consistent with his typical presentation. Patient states the pain began around 6:00 this evening and has continued despite attempts to minimize triggers. States headache is accompanied by sensitivity to light and sound, as well as nausea but no vomiting. Denies fever, chills, dizziness, blurry vision, chest, shortness of breath, abdominal pain, or weakness in extremities. - Related Data Home Medications Medication Instructions Recorded Confirmed Morphine Sulfate ER [Ms Contin] 30 mg PO Q8H 10/10/17 02/26/22 tiZANidine [Zanaflex] 4 mg PO Q8H PRN 02/26/18 02/26/22 oxyCODONE-APAP 10-325MG [Percocet 1 tab PO Q8H 01/02/20 02/26/22 10-325 mg] Nitroglycerin Sl Tabs [Nitrostat] 0.4 mg SL Q5M PRN 07/13/21 02/26/22 Pregabalin [Lyrica] 100 mg PO BID 09/11/21 02/26/22 SUMAtriptan succinate [Imitrex] 25 mg PO DAILY PRN 01/04/22 02/26/22 Previous Rx's Medication Instructions Recorded Furosemide [Lasix] 20 mg PO DAILY 30 Days #30 tab 01/06/22 Pantoprazole Sodium [Protonix] 40 mg PO AC-BRKFST #14 tab 01/16/22 Ondansetron Odt [Zofran ODT] 4 mg PO Q8HR PRN #10 tab 02/18/22 Clopidogrel [Plavix] 75 mg PO DAILY 30 Days #30 tab 02/26/22 Fenofibrate 50 mg PO DAILY 30 Days #30 capsule 02/26/22 Metoprolol Succinate [Toprol XL] 150 mg PO DAILY 30 Days #45 tab 02/26/22 amLODIPine [Norvasc] 5 mg PO BID 30 Days #60 tab 02/26/22 hydrALAZINE HCL [Apresoline] 50 mg PO TID-W/MEALS 30 Days #90 02/26/22 tab lisinopriL [Zestril] 40 mg PO DAILY 30 Days #30 tab 02/26/22 Furosemide [Lasix] 40 mg PO BID #10 tablet 05/22/22 metOLazone [Zaroxolyn] 5 mg PO DAILY #5 tablet 05/27/22 Furosemide [Lasix] 40 mg PO BID #10 tablet 06/23/22 Allergies Allergy/AdvReac Type Severity Reaction Status Date / Time ibuprofen [From Motrin] Allergy Rash/Hives Verified 09/21/22 23:26 ketorolac tromethamine Allergy Rash/Hives Verified 09/21/22 23:26 [From Toradol] Review of Systems ROS Statement: Those systems with pertinent positive or pertinent negative responses have been documented in the HPI. ROS Other: All systems not noted in ROS Statement are negative. Past Medical History Past Medical History: Coronary Artery Disease (CAD), Chest Pain / Angina, COPD, Deep Vein Thrombosis (DVT), GERD/Reflux, Hyperlipidemia, Hypertension, Osteoarthritis (OA), Thyroid Disorder Additional Past Medical History / Comment(s): Occasional palpitations, gastritis, small hiatal hernia, diverticular dx, pt states years ago he had PUD, chronic low back pain, chronic pain syndrome, migraines, DVT L arm, numbness/tingling bilateral lower legs, bilateral past R hand fracture, arthritis multiple joints, hyperthyroid, sinus problems. History of Any Multi-Drug Resistant Organisms: None Reported Past Surgical History: Back Surgery, Cholecystectomy, Heart Catheterization With Stent, Orthopedic Surgery Additional Past Surgical History / Comment(s): EGDs/colonoscopies, multiple low back surgeries, bilateral arm and bilateral thigh surgeries for brown recluse spider bites with infection, morphine pain pump insertion and removal due to infection, PCI with stents, L rotator cuff repair, L knee arthroscopy, cervical fusion/cage, R cataract removal. 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 He lived to be 82 yrs old. Mother History Unknown: Yes Family Medical History: Hypertension, Myocardial Infarction ([place]) Additional Family Medical History / Comment(s): Mother of a [place] at the age of 55yrs. Brother(s) Family Medical History: Cancer, COPD Additional Family Medical History / Comment(s): Leukemia General Exam Limitations: no limitations General appearance: alert, in no apparent distress (Well-developed, well- nourished male in no acute distress, but does appear moderately uncomfortable. Initial temperature 98.2, pulse 88, respirations 20, blood pressure 142/91, pulse ox 98% on room air.) Head exam: Present: atraumatic, normocephalic, normal inspection Eye exam: Present: normal appearance, PERRL, EOMI. Absent: scleral icterus, conjunctival injection, periorbital swelling Respiratory exam: Present: normal lung sounds bilaterally. Absent: respiratory distress, wheezes, rales, rhonchi, stridor Cardiovascular Exam: Present: regular rate, normal rhythm, normal heart sounds. Absent: systolic murmur, diastolic murmur, rubs, gallop, clicks GI/Abdominal exam: Present: soft, normal bowel sounds. Absent: distended, tenderness, guarding, rebound, rigid Neurological exam: Present: alert, oriented X3, CN II-XII intact, normal gait Expanded Patient oriented to: Present: person, place, time Cranial nerves: EOM's Intact: Normal, Nystagmus: Normal Cerebellar function: [place]: Normal Eye Response: (4) open spontaneously Motor Response: (6) obeys commands Verbal Response: (5) oriented [place] Total: 15 Psychiatric exam: Present: flat affect Course Vital Signs 09/21/22 23:24 Temperature 98.2 F Pulse Rate 88 Respiratory 20 Rate Blood Pressure 142/91 O2 Sat by Pulse 98 Oximetry - Reevaluation(s) Reevaluation #1: 09/22/22 00:52 Medical record reviewed. Course of treatment discussed with patient. States he has previously received the migraine cocktail and this does not work for him. He specifically requests Dilaudid for pain. Medical Decision Making - Medical Decision Making 66-year-old male with a past medical history of CAD, COPD, hypertension, and chronic migraines presents to the emergency department for treatment of migraine headache, onset this evening. Upon exam, patient appears moderately uncomfortable but in no acute distress. He is neurologically intact no focal deficit. Headache discomfort is consistent with chronic migraines. No red flag symptoms. Patient was given Dilaudid for pain and Zofran for nausea. Reports improvement. He'll be discharged home to follow up with his PCP for R recheck as needed. Return parameters were discussed in detail. Patient verbalizes understanding and agrees with this plan. Attending: Eileen. Disposition Clinical Impression: Headache, chronic migraine without aura Disposition: HOME SELF-CARE Condition: Stable Instructions (If sedation given, give patient instructions): Acute Headache (ED) Additional Instructions: Minimize exposures to headache triggers. Increase fluids. Follow-up with your PCP for a recheck as needed. Return to the emergency department with any new, worsening, or concerning symptoms. Is patient prescribed a controlled substance at d/c from ED?: No Referrals: None,Stated [Primary Care Provider] - 1-2 days Time of Disposition: 01:16
[2022-09-22 01:30] VITALS: BP 140/80; PULSE 80; RESP 18
== END 2022-09-22 01:29 | disposition home or self-care (01) ==
LOC: EC 23:22
DX: G43.709 Chronic migraine without aura, not intractable, without status migrainosus (principal); I10 Essential (primary) hypertension; I25.10 Atherosclerotic heart disease of native coronary artery without angina pectoris; J44.9 Chronic obstructive pulmonary disease, unspecified; I82.409 Acute embolism and thrombosis of unspecified deep veins of unspecified lower extremity; E78.5 Hyperlipidemia, unspecified; M19.90 Unspecified osteoarthritis, unspecified site; E03.9 Hypothyroidism, unspecified; Z87.891 Personal history of nicotine dependence; Z79.811 Long term (current) use of aromatase inhibitors; Z79.899 Other long term (current) drug therapy; Z88.6 Allergy status to analgesic agent
CPT/HCPCS: 99283; 96372; J1170

== ENCOUNTER 2022-10-26 05:33 | Emergency (ER) | payer MEDICARE, OTHER ==
[2022-10-26 06:25] VITALS: BP 138/77; PULSE 101; RESP 20; TEMP 97.8
[2022-10-26] MEDS ORDERED: HYDROmorphone 1 MG/ML 1 ML SYRINGE IM STA (06:28)
[2022-10-26] MEDS ORDERED: ONDANSETRON 4 MG/2 ML VIAL IM STA (06:28)
--- NOTE | 2022-10-26 06:29 | ED ---
Headache HPI - General Chief Complaint: Headache Stated Complaint: Migraine Time Seen by Provider: 10/26/22 06:27 Source: patient, RN notes reviewed Mode of arrival: ambulatory Limitations: no limitations - History of Present Illness Initial Comments: This a 66-year-old male presents emergency Department chief complaint of a headache. Patient is well-known emergency department has chronic pain, chronic headaches. Patient presents stating that started 2 days ago. Patient does not slight nausea without vomiting patient denies fevers chills no cough or symptoms no neck pain or trauma no other complaints. - Related Data Home Medications Medication Instructions Recorded Confirmed Morphine Sulfate ER [Ms Contin] 30 mg PO Q8H 10/10/17 02/26/22 tiZANidine [Zanaflex] 4 mg PO Q8H PRN 02/26/18 02/26/22 oxyCODONE-APAP 10-325MG [Percocet 1 tab PO Q8H 01/02/20 02/26/22 10-325 mg] Nitroglycerin Sl Tabs [Nitrostat] 0.4 mg SL Q5M PRN 07/13/21 02/26/22 Pregabalin [Lyrica] 100 mg PO BID 09/11/21 02/26/22 SUMAtriptan succinate [Imitrex] 25 mg PO DAILY PRN 01/04/22 02/26/22 Previous Rx's Medication Instructions Recorded Furosemide [Lasix] 20 mg PO DAILY 30 Days #30 tab 01/06/22 Pantoprazole Sodium [Protonix] 40 mg PO AC-BRKFST #14 tab 01/16/22 Ondansetron Odt [Zofran ODT] 4 mg PO Q8HR PRN #10 tab 02/18/22 Clopidogrel [Plavix] 75 mg PO DAILY 30 Days #30 tab 02/26/22 Fenofibrate 50 mg PO DAILY 30 Days #30 capsule 02/26/22 Metoprolol Succinate [Toprol XL] 150 mg PO DAILY 30 Days #45 tab 02/26/22 amLODIPine [Norvasc] 5 mg PO BID 30 Days #60 tab 02/26/22 hydrALAZINE HCL [Apresoline] 50 mg PO TID-W/MEALS 30 Days #90 02/26/22 tab lisinopriL [Zestril] 40 mg PO DAILY 30 Days #30 tab 02/26/22 Furosemide [Lasix] 40 mg PO BID #10 tablet 05/22/22 metOLazone [Zaroxolyn] 5 mg PO DAILY #5 tablet 05/27/22 Furosemide [Lasix] 40 mg PO BID #10 tablet 06/23/22 Allergies Allergy/AdvReac Type Severity Reaction Status Date / Time ibuprofen [From Motrin] Allergy Rash/Hives Verified 10/26/22 06:25 ketorolac tromethamine Allergy Rash/Hives Verified 10/26/22 06:25 [From Toradol] Review of Systems ROS Statement: Those systems with pertinent positive or pertinent negative responses have been documented in the HPI. ROS Other: All systems not noted in ROS Statement are negative. Past Medical History Past Medical History: Coronary Artery Disease (CAD), Chest Pain / Angina, COPD, Deep Vein Thrombosis (DVT), GERD/Reflux, Hyperlipidemia, Hypertension, Osteoarthritis (OA), Thyroid Disorder Additional Past Medical History / Comment(s): Occasional palpitations, gastritis, small hiatal hernia, diverticular dx, pt states years ago he had PUD, chronic low back pain, chronic pain syndrome, migraines, DVT L arm, numbness/tingling bilateral lower legs, bilateral past R hand fracture, arthritis multiple joints, hyperthyroid, sinus problems. History of Any Multi-Drug Resistant Organisms: None Reported Past Surgical History: Back Surgery, Cholecystectomy, Heart Catheterization With Stent, Orthopedic Surgery Additional Past Surgical History / Comment(s): EGDs/colonoscopies, multiple low back surgeries, bilateral arm and bilateral thigh surgeries for brown recluse spider bites with infection, morphine pain pump insertion and removal due to infection, PCI with stents, L rotator cuff repair, L knee arthroscopy, cervical fusion/cage, R cataract removal. 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 He lived to be 82 yrs old. Mother History Unknown: Yes Family Medical History: Hypertension, Myocardial Infarction ([place]) Additional Family Medical History / Comment(s): Mother of a [place] at the age of 55yrs. Brother(s) Family Medical History: Cancer, COPD Additional Family Medical History / Comment(s): Leukemia General Exam Limitations: no limitations General appearance: alert, in no apparent distress Head exam: Present: atraumatic, normocephalic, normal inspection Eye exam: Present: normal appearance, PERRL, EOMI. Absent: scleral icterus, conjunctival injection, periorbital swelling ENT exam: Present: normal exam, mucous membranes moist Neck exam: Present: normal inspection, full ROM. Absent: tenderness, me ningismus, lymphadenopathy Respiratory exam: Present: normal lung sounds bilaterally. Absent: respiratory distress, wheezes, rales, rhonchi, stridor Cardiovascular Exam: Present: regular rate, normal rhythm, normal heart sounds. Absent: systolic murmur, diastolic murmur, rubs, gallop, clicks GI/Abdominal exam: Present: soft, normal bowel sounds. Absent: distended, tenderness, guarding, rebound, rigid Neurological exam: Present: alert, oriented X3, CN II-XII intact, reflexes normal. Absent: motor sensory deficit Course Vital Signs 10/26/22 06:24 Temperature 97.8 F Pulse Rate 101 H Respiratory 20 Rate Blood Pressure 138/77 O2 Sat by Pulse 99 Oximetry Medical Decision Making - Medical Decision Making 66-year-old present for headache. Patient symmetrically intact this is a chronic complaint nature. Patient will be discharged in stable condition return parameters were discussed. Disposition Clinical Impression: Headache Disposition: HOME SELF-CARE Condition: Stable Instructions (If sedation given, give patient instructions): Acute Headache (ED) Additional Instructions: Please return to the Emergency Department if symptoms worsen or any other concerns. Is patient prescribed a controlled substance at d/c from ED?: No Referrals: None,Stated [Primary Care Provider] - 1-2 days Time of Disposition: 06:29
== END 2022-10-26 06:59 | disposition home or self-care (01) ==
LOC: EC 05:33
DX: G43.909 Migraine, unspecified, not intractable, without status migrainosus (principal); I25.10 Atherosclerotic heart disease of native coronary artery without angina pectoris; J44.9 Chronic obstructive pulmonary disease, unspecified; Z86.718 Personal history of other venous thrombosis and embolism; M19.90 Unspecified osteoarthritis, unspecified site; Z87.891 Personal history of nicotine dependence; Z88.6 Allergy status to analgesic agent; Z79.899 Other long term (current) drug therapy
CPT/HCPCS: 99283; 96372 ×2; J2405; J1170

== ENCOUNTER 2022-11-05 00:13 | Emergency (ER) | payer MEDICARE, OTHER ==
[2022-11-05] MEDS ORDERED: ONDANSETRON 4 MG/2 ML VIAL IVP STA (00:16)
[2022-11-05] MEDS ORDERED: SODIUM CHLORIDE 0.9% 1,000 ML IV STA (00:16)
--- NOTE | 2022-11-05 00:25 | ED ---
General Adult HPI - General Stated complaint: Nausea, Vomiting Time Seen by Provider: 11/05/22 00:14 - History of Present Illness Initial comments: Dictation was produced using [employer] dictation software. please excuse any grammatical, word or spelling errors. Chief Complaint: 66-year-old male well-known to emergency department for chronic abdominal pain and opioid dependence presents here for abdominal pain History of Present Illness: 66-year-old male who has past medical history of chronic abdominal pain. Patient is a poor historian states that he has severe abdominal pain to his abdomen. Patient is brought in by EMS. EMS reports that they were called for abdominal pain. Patient has any fever. Denies any constitutional symptoms. Denies any diarrhea. He does feel significantly nauseated. The ROS documented in this emergency department record has been reviewed and confirmed by me. Those systems with pertinent positive or negative responses have been documented in the HPI. All other systems are other negative and/or noncontributory. PHYSICAL EXAM: General Impression: Alert and oriented x3, not in acute distress HEENT: Normocephalic atraumatic, extra-ocular movements intact, pupils equal and reactive to light bilaterally, mucous membranes moist. Cardiovascular: Heart regular rate and rhythm Chest: Able to complete full sentences, no retractions, no tachypnea Abdomen: abdomen soft, diffuse abdominal tenderness with voluntary guarding, non-distended, no organomegaly Musculoskeletal: Pulses present and equal in all extremities, no peripheral edema Motor: no focal deficits noted Neurological: CN II-XII grossly intact, no focal motor or sensory deficits noted Skin: Intact with no visualized rashes Psych: Normal affect and mood ED course: 66-year-old male well-known to emergency department for chronic abdominal pain and opiate dependence presents to the emergency department again for abdominal pain. Nursing notes and chart review was performed Abdominal x-rays unremarkable. Laboratory evaluation obtained. CBC, metabolic panel is unremarkable. Lipase levels are normal. Rest of abdominal labs are negative. Suspect that patient's symptoms are secondary to opiate withdrawal. Patient observed in emergency department for 2 hours and 15 minutes following the stable medical condition upon reevaluation at 3:00 AM. Patient be discharged. - Related Data Home Medications Medication Instructions Recorded Confirmed Morphine Sulfate ER [Ms Contin] 30 mg PO Q8H 10/10/17 02/26/22 tiZANidine [Zanaflex] 4 mg PO Q8H PRN 02/26/18 02/26/22 oxyCODONE-APAP 10-325MG [Percocet 1 tab PO Q8H 01/02/20 02/26/22 10-325 mg] Nitroglycerin Sl Tabs [Nitrostat] 0.4 mg SL Q5M PRN 07/13/21 02/26/22 Pregabalin [Lyrica] 100 mg PO BID 09/11/21 02/26/22 SUMAtriptan succinate [Imitrex] 25 mg PO DAILY PRN 01/04/22 02/26/22 Previous Rx's Medication Instructions Recorded Furosemide [Lasix] 20 mg PO DAILY 30 Days #30 tab 01/06/22 Pantoprazole Sodium [Protonix] 40 mg PO AC-BRKFST #14 tab 01/16/22 Ondansetron Odt [Zofran ODT] 4 mg PO Q8HR PRN #10 tab 02/18/22 Clopidogrel [Plavix] 75 mg PO DAILY 30 Days #30 tab 02/26/22 Fenofibrate 50 mg PO DAILY 30 Days #30 capsule 02/26/22 Metoprolol Succinate [Toprol XL] 150 mg PO DAILY 30 Days #45 tab 02/26/22 amLODIPine [Norvasc] 5 mg PO BID 30 Days #60 tab 02/26/22 hydrALAZINE HCL [Apresoline] 50 mg PO TID-W/MEALS 30 Days #90 02/26/22 tab lisinopriL [Zestril] 40 mg PO DAILY 30 Days #30 tab 02/26/22 Furosemide [Lasix] 40 mg PO BID #10 tablet 05/22/22 metOLazone [Zaroxolyn] 5 mg PO DAILY #5 tablet 05/27/22 Furosemide [Lasix] 40 mg PO BID #10 tablet 06/23/22 Allergies Allergy/AdvReac Type Severity Reaction Status Date / Time ibuprofen [From Motrin] Allergy Rash/Hives Verified 11/05/22 00:34 ketorolac tromethamine Allergy Rash/Hives Verified 11/05/22 00:34 [From Toradol] Review of Systems ROS Statement: Those systems with pertinent positive or pertinent negative responses have been documented in the HPI. ROS Other: All systems not noted in ROS Statement are negative. Past Medical History Past Medical History: Coronary Artery Disease (CAD), Chest Pain / Angina, COPD, Deep Vein Thrombosis (DVT), GERD/Reflux, Hyperlipidemia, Hypertension, Osteoarthritis (OA), Thyroid Disorder Additional Past Medical History / Comment(s): Occasional palpitations, gastr itis, small hiatal hernia, diverticular dx, pt states years ago he had PUD, chronic low back pain, chronic pain syndrome, migraines, DVT L arm, numbness/tingling bilateral lower legs, bilateral past R hand fracture, arthritis multiple joints, hyperthyroid, sinus problems. History of Any Multi-Drug Resistant Organisms: None Reported Past Surgical History: Back Surgery, Cholecystectomy, Heart Catheterization With Stent, Orthopedic Surgery Additional Past Surgical History / Comment(s): EGDs/colonoscopies, multiple low back surgeries, bilateral arm and bilateral thigh surgeries for brown recluse spider bites with infection, morphine pain pump insertion and removal due to infection, PCI with stents, L rotator cuff repair, L knee arthroscopy, cervical fusion/cage, R cataract removal. 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 He lived to be 82 yrs old. Mother History Unknown: Yes Family Medical History: Hypertension, Myocardial Infarction ([place]) Additional Family Medical History / Comment(s): Mother of a [place] at the age of 55yrs. Brother(s) Family Medical History: Cancer, COPD Additional Family Medical History / Comment(s): Leukemia Course Vital Signs 11/05/22 00:32 Temperature 98.8 F Pulse Rate 81 Respiratory 15 Rate Blood Pressure 151/74 O2 Sat by Pulse 99 Oximetry Medical Decision Making - Lab Data Result diagrams: 11/05/22 01:32 11/05/22 01:32 Lab Results 11/05/22 11/05/22 Range/Units 01:32 01:32 WBC 10.6 (3.8-10.6) k/uL RBC 5.29 (4.30-5.90) m/uL Hgb 15.5 (13.0-17.5) gm/dL Hct 46.9 (39.0-53.0) % MCV 88.7 (80.0-100.0) fL MCH 29.3 (25.0-35.0) pg MCHC 33.0 (31.0-37.0) g/dL RDW 14.3 (11.5-15.5) % Plt Count 644 H (150-450) k/uL MPV 7.1 Neutrophils % 90 % Lymphocytes % 6 % Monocytes % 4 % Eosinophils % 0 % Basophils % 0 % Neutrophils # 9.5 H (1.3-7.7) k/uL Lymphocytes # 0.6 L (1.0-4.8) k/uL Monocytes # 0.4 (0-1.0) k/uL Eosinophils # 0.0 (0-0.7) k/uL Basophils # 0.0 (0-0.2) k/uL Sodium 144 (137-145) mmol/L Potassium 3.7 (3.5-5.1) mmol/L Chloride 106 (98-107) mmol/L Carbon Dioxide 19 L (22-30) mmol/L Anion Gap 19 mmol/L BUN 18 (9-20) mg/dL Creatinine 0.77 (0.66-1.25) mg/dL Est GFR (CKD-EPI)AfAm >90 (>60 ml/min/1.73 sqM) Est GFR (CKD-EPI)NonAf >90 (>60 ml/min/1.73 sqM) Glucose 189 H (74-99) mg/dL Calcium 10.7 H (8.4-10.2) mg/dL Total Bilirubin 1.0 (0.2-1.3) mg/dL AST 22 (17-59) U/L ALT 17 (4-49) U/L Alkaline Phosphatase 87 (38-126) U/L Total Protein 8.8 H (6.3-8.2) g/dL Albumin 5.5 H (3.5-5.0) g/dL Lipase 54 (23-300) U/L Disposition Clinical Impression: Abdominal pain Disposition: HOME SELF-CARE Condition: Good Instructions (If sedation given, give patient instructions): Abdominal Pain (ED), Acute Nausea and Vomiting (ED) Is patient prescribed a controlled substance at d/c from ED?: No Referrals: None,Stated [Primary Care Provider] - 1-2 days Time of Disposition: 03:04
[2022-11-05 00:34] VITALS: RESP 15; TEMP 98.8
[2022-11-05 02:05] LABS: Basophils % (A) 0 %; Eosinophils % (A) 0 %; HCT 46.9 % (39.0-53.0); HGB 15.5 gm/dL (13.0-17.5); Lymphocytes # (A) 0.6 k/uL (1.0-4.8); Lymphocytes % (A) 6 %; MCH 29.3 pg (25.0-35.0); MCV 88.7 fL (80.0-100.0); Mean Platelet Volume 7.1; Monocytes # (A) 0.4 k/uL (0-1.0); Monocytes % (A) 4 %; Neutrophils # (A) 9.5 k/uL (1.3-7.7); Neutrophils % (A) 90 %; Platelet Count 644 k/uL (150-450); RBC 5.29 m/uL (4.30-5.90); RDW 14.3 % (11.5-15.5); WBC 10.6 k/uL (3.8-10.6)
[2022-11-05 02:16] LABS: ALT 17 U/L (4-49); AST 22 U/L (17-59); African American GFR (CKD) >90 (>60 ml/min/1.73 sqM); Albumin 5.5 g/dL (3.5-5.0); Alkaline Phosphatase 87 U/L (38-126); Anion Gap 19 mmol/L; Blood Urea Nitrogen 18 mg/dL (9-20); Calcium 10.7 mg/dL (8.4-10.2); Carbon Dioxide 19 mmol/L (22-30); Chloride 106 mmol/L (98-107); Glucose 189 mg/dL (74-99); Lipase 54 U/L (23-300); Non-African American GFR(CKD) >90 (>60 ml/min/1.73 sqM); Potassium 3.7 mmol/L (3.5-5.1); Sodium 144 mmol/L (137-145); Total Protein 8.8 g/dL (6.3-8.2)
[2022-11-05] MEDS ORDERED: ACETAMINOPHEN TAB 500 MG TAB PO STA (02:54)
--- NOTE | 2022-11-05 02:57 | XR ---
EXAMINATION TYPE: XR abdomen 1V DATE OF EXAM: 11/05/2022 COMPARISON: NONE HISTORY: Nausea and vomiting TECHNIQUE: Single view FINDINGS: There is no sign of intestinal obstruction or pneumoperitoneum. Fecal pattern is normal. No evidence of a mass. There are rods and screws fusing posteriorly the lumbar spine. There is multilev el laminectomy. No evidence of abdominal mass. No pathologic calcifications over the kidneys. There a re clips from cholecystectomy. Lung bases are clear. IMPRESSION: Nonacute abdomen. No adverse change.
[2022-11-05 03:42] VITALS: BP 138/77; PULSE 74
[2022-11-05] MEDS ORDERED: ONDANSETRON 4 MG ODT STARTER PACK 2 TAB BTL PO STA (03:52)
[2022-11-05] MEDS ORDERED: MAG HYDROX/AL HYDROX/SIMETH 30 ML, HYOSCYAMINE ELIXIR 10 ML, LIDOCAINE VISCOUS 2% 10 ML PO STA ×3 (03:54)
== END 2022-11-05 04:33 | disposition home or self-care (01) ==
LOC: EC 00:13
DX: R10.9 Unspecified abdominal pain (principal); I25.10 Atherosclerotic heart disease of native coronary artery without angina pectoris; J44.9 Chronic obstructive pulmonary disease, unspecified; I10 Essential (primary) hypertension; M19.90 Unspecified osteoarthritis, unspecified site; Z87.891 Personal history of nicotine dependence; Z88.6 Allergy status to analgesic agent; Z79.899 Other long term (current) drug therapy
CPT/HCPCS: 36415; 93005; 80053; 83690; 85025; 74018; 99285; 96374; 96361 ×2; J2405; S0119

== ENCOUNTER 2022-11-11 08:40 | Emergency (ER) | payer MEDICARE, OTHER ==
[2022-11-11] MEDS ORDERED: SUMAtriptan succinate 6 MG/0.5 ML VIAL SQ STA (08:59)
[2022-11-11] MEDS ORDERED: ACETAMINOPHEN TAB 500 MG TAB PO STA (09:00)
[2022-11-11] MEDS ORDERED: dexAMETHasone 4 MG TAB PO STA (09:00)
--- NOTE | 2022-11-11 09:02 | ED ---
General Adult HPI - General Chief complaint: Headache Stated complaint: headache Time Seen by Provider: 11/11/22 08:42 Source: patient Mode of arrival: ambulatory Limitations: no limitations - History of Present Illness Initial comments: Dictation was produced using [employer] dictation software. please excuse any grammatical, word or spelling errors. Chief Complaint: 67-year-old male presents emergency department for headache History of Present Illness: She is 67-year-old male well-known to emergency department for opiate dependence and opiate seeking behavior. Patient presents to the emergency department for migraine headaches since yesterday. States the holo cranial and retro-orbital. Patient has had headaches in the past. Patient reports that his symptoms are insidious in nature. Not thunderclap. Of numbness and paresthesias. No vision changes. The ROS documented in this emergency department record has been reviewed and confirmed by me. Those systems with pertinent positive or negative responses have been documented in the HPI. All other systems are other negative and/or noncontributory. PHYSICAL EXAM: General Impression: Alert and oriented x3, not in acute distress HEENT: Normocephalic atraumatic, extra-ocular movements intact, pupils equal and reactive to light bilaterally, mucous membranes moist. Cardiovascular: Heart regular rate and rhythm Chest: Able to complete full sentences, no retractions, no tachypnea Abdomen: abdomen soft, non-tender, non-distended, no organomegaly Musculoskeletal: Pulses present and equal in all extremities, no peripheral edema Motor: no focal deficits noted Neurological: CN II-XII grossly intact, no focal motor or sensory deficits noted Skin: Intact with no visualized rashes Psych: Normal affect and mood ED course: 67-year-old male with known opiate seeking behavior presents to the ER for acute headache. Symptoms have been since yesterday. Patient showing benign features. Vital signs upon arrival are within acceptable limits. Nursing notes and chart review was performed Computed tomography scan of the brain is unremarkable. Patient given headache analgesics. Patient observed in emergency department for 1 hour 30 minutes. Reevaluated bedside 10:15 AM. Patient discharged. - Related Data Home Medications Medication Instructions Recorded Confirmed Morphine Sulfate ER [Ms Contin] 30 mg PO Q8H 10/10/17 02/26/22 tiZANidine [Zanaflex] 4 mg PO Q8H PRN 02/26/18 02/26/22 oxyCODONE-APAP 10-325MG [Percocet 1 tab PO Q8H 01/02/20 02/26/22 10-325 mg] Nitroglycerin Sl Tabs [Nitrostat] 0.4 mg SL Q5M PRN 07/13/21 02/26/22 Pregabalin [Lyrica] 100 mg PO BID 09/11/21 02/26/22 SUMAtriptan succinate [Imitrex] 25 mg PO DAILY PRN 01/04/22 02/26/22 Previous Rx's Medication Instructions Recorded Furosemide [Lasix] 20 mg PO DAILY 30 Days #30 tab 01/06/22 Pantoprazole Sodium [Protonix] 40 mg PO AC-BRKFST #14 tab 01/16/22 Ondansetron Odt [Zofran ODT] 4 mg PO Q8HR PRN #10 tab 02/18/22 Clopidogrel [Plavix] 75 mg PO DAILY 30 Days #30 tab 02/26/22 Fenofibrate 50 mg PO DAILY 30 Days #30 capsule 02/26/22 Metoprolol Succinate [Toprol XL] 150 mg PO DAILY 30 Days #45 tab 02/26/22 amLODIPine [Norvasc] 5 mg PO BID 30 Days #60 tab 02/26/22 hydrALAZINE HCL [Apresoline] 50 mg PO TID-W/MEALS 30 Days #90 02/26/22 tab lisinopriL [Zestril] 40 mg PO DAILY 30 Days #30 tab 02/26/22 Furosemide [Lasix] 40 mg PO BID #10 tablet 05/22/22 metOLazone [Zaroxolyn] 5 mg PO DAILY #5 tablet 05/27/22 Furosemide [Lasix] 40 mg PO BID #10 tablet 06/23/22 Allergies Allergy/AdvReac Type Severity Reaction Status Date / Time ibuprofen [From Motrin] Allergy Rash/Hives Verified 11/11/22 08:46 ketorolac tromethamine Allergy Rash/Hives Verified 11/11/22 08:46 [From Toradol] Review of Systems ROS Statement: Those systems with pertinent positive or pertinent negative responses have been documented in the HPI. ROS Other: All systems not noted in ROS Statement are negative. Past Medical History Past Medical History: Coronary Artery Disease (CAD), Chest Pain / Angina, COPD, Deep Vein Thrombosis (DVT), GERD/Reflux, Hyperlipidemia, Hypertension, Osteoarthritis (OA), Thyroid Disorder Additional Past Medical History / Comment(s): Occasional palpitations, gastritis, small hiatal hernia, diverticular dx, pt states years ago he had PUD, chronic low back pain, chronic pain syndrome, migraines, DVT L arm, numbness/tingling bilateral lower legs, bilateral past R hand fracture, arthri tis multiple joints, hyperthyroid, sinus problems. History of Any Multi-Drug Resistant Organisms: None Reported Past Surgical History: Back Surgery, Cholecystectomy, Heart Catheterization With Stent, Orthopedic Surgery Additional Past Surgical History / Comment(s): EGDs/colonoscopies, multiple low back surgeries, bilateral arm and bilateral thigh surgeries for brown recluse spider bites with infection, morphine pain pump insertion and removal due to infection, PCI with stents, L rotator cuff repair, L knee arthroscopy, cervical fusion/cage, R cataract removal. 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 He lived to be 82 yrs old. Mother History Unknown: Yes Family Medical History: Hypertension, Myocardial Infarction ([place]) Additional Family Medical History / Comment(s): Mother of a [place] at the age of 55yrs. Brother(s) Family Medical History: Cancer, COPD Additional Family Medical History / Comment(s): Leukemia General Exam Limitations: no limitations Course Vital Signs 11/11/22 08:44 Temperature 98.6 F Pulse Rate 115 H Respiratory 20 Rate Blood Pressure 145/80 O2 Sat by Pulse 97 Oximetry Disposition Clinical Impression: Headache Disposition: HOME SELF-CARE Condition: Good Instructions (If sedation given, give patient instructions): Acute Headache (ED) Is patient prescribed a controlled substance at d/c from ED?: No Referrals: Nonstaff,Physician [Primary Care Provider] - 1-2 days Time of Disposition: 10:14
--- NOTE | 2022-11-11 10:07 | CT ---
EXAMINATION TYPE: CT brain wo con DATE OF EXAM: 11/11/2022 COMPARISON: 02/01/2019 HISTORY: Headache CT DLP: [address] of the brain was performed. The ventricles, basal cisterns and sulci overlying the cerebral convexities demonstrate mild enlargem ent. There is no evidence for intracranial hemorrhage or sulcal effacement. There is decreased attenuation about the periventricular white matter and deep white matter of both c erebral hemispheres, compatible with chronic small vessel ischemia. Differential diagnosis does inclu de demyelination. No mass effects are seen.No midline shift. Osseous calvarium is intact. If symptoms persist consider MRI. IMPRESSION: 1. Age related atrophic and chronic small vessel ischemic change without acute intracranial process s een at this time.
[2022-11-11 10:23] VITALS: BP 147/82; PULSE 78; RESP 18; TEMP 97.1
== END 2022-11-11 10:23 | disposition home or self-care (01) ==
LOC: EC 08:40
DX: R51.9 Headache, unspecified (principal); I67.82 Cerebral ischemia; I25.10 Atherosclerotic heart disease of native coronary artery without angina pectoris; J44.9 Chronic obstructive pulmonary disease, unspecified; I10 Essential (primary) hypertension; F11.20 Opioid dependence, uncomplicated; Z87.891 Personal history of nicotine dependence; Z88.6 Allergy status to analgesic agent
CPT/HCPCS: 70450; 99284; 96372; J8540; J3030

== ENCOUNTER 2022-11-14 00:16 | Emergency (ER) | payer MEDICARE, OTHER ==
[2022-11-14 00:22] VITALS: TEMP 98
--- NOTE | 2022-11-14 03:37 | ED ---
Headache HPI - General Chief Complaint: Headache Stated Complaint: Headache Time Seen by Provider: 11/14/22 03:34 Source: RN notes reviewed, old records reviewed Mode of arrival: ambulatory Limitations: no limitations - History of Present Illness Initial Comments: This is a 67-year-old male DF for evaluation again is well-known to our ER for evaluation of things from headache to chest pain or shortness of breath abdominal pain back pain and leg pain. Today patient has headache. Worsening migraine headache. Patient is given medication can be discharged home MD Complaint: headache, "migraine" -: hour(s) Onset Description: gradual Location: frontal Severity: moderate Severity scale (1-10): 7 Quality: throbbing Consistency: constant Improves With: nothing Worsens With: none Context: other Associated Symptoms: nausea Other Symptoms: other (0) Treatments Prior to Arrival: other (0) - Related Data Home Medications Medication Instructions Recorded Confirmed Morphine Sulfate ER [Ms Contin] 30 mg PO Q8H 10/10/17 02/26/22 tiZANidine [Zanaflex] 4 mg PO Q8H PRN 02/26/18 02/26/22 oxyCODONE-APAP 10-325MG [Percocet 1 tab PO Q8H 01/02/20 02/26/22 10-325 mg] Nitroglycerin Sl Tabs [Nitrostat] 0.4 mg SL Q5M PRN 07/13/21 02/26/22 Pregabalin [Lyrica] 100 mg PO BID 09/11/21 02/26/22 SUMAtriptan succinate [Imitrex] 25 mg PO DAILY PRN 01/04/22 02/26/22 Previous Rx's Medication Instructions Recorded Furosemide [Lasix] 20 mg PO DAILY 30 Days #30 tab 01/06/22 Pantoprazole Sodium [Protonix] 40 mg PO AC-BRKFST #14 tab 01/16/22 Ondansetron Odt [Zofran ODT] 4 mg PO Q8HR PRN #10 tab 02/18/22 Clopidogrel [Plavix] 75 mg PO DAILY 30 Days #30 tab 02/26/22 Fenofibrate 50 mg PO DAILY 30 Days #30 capsule 02/26/22 Metoprolol Succinate [Toprol XL] 150 mg PO DAILY 30 Days #45 tab 02/26/22 amLODIPine [Norvasc] 5 mg PO BID 30 Days #60 tab 02/26/22 hydrALAZINE HCL [Apresoline] 50 mg PO TID-W/MEALS 30 Days #90 02/26/22 tab lisinopriL [Zestril] 40 mg PO DAILY 30 Days #30 tab 02/26/22 Furosemide [Lasix] 40 mg PO BID #10 tablet 05/22/22 metOLazone [Zaroxolyn] 5 mg PO DAILY #5 tablet 05/27/22 Furosemide [Lasix] 40 mg PO BID #10 tablet 06/23/22 Allergies Allergy/AdvReac Type Severity Reaction Status Date / Time ibuprofen [From Motrin] Allergy Rash/Hives Verified 11/14/22 00:22 ketorolac tromethamine Allergy Rash/Hives Verified 11/14/22 00:22 [From Toradol] Review of Systems ROS Statement: Those systems with pertinent positive or pertinent negative responses have been documented in the HPI. ROS Other: All systems not noted in ROS Statement are negative. Past Medical History Past Medical History: Coronary Artery Disease (CAD), Chest Pain / Angina, COPD, Deep Vein Thrombosis (DVT), GERD/Reflux, Hyperlipidemia, Hypertension, Osteoarthritis (OA), Thyroid Disorder Additional Past Medical History / Comment(s): Occasional palpitations, gastritis, small hiatal hernia, diverticular dx, pt states years ago he had PUD, chronic low back pain, chronic pain syndrome, migraines, DVT L arm, numbness/tingling bilateral lower legs, bilateral past R hand fracture, arthritis multiple joints, hyperthyroid, sinus problems. History of Any Multi-Drug Resistant Organisms: None Reported Past Surgical History: Back Surgery, Cholecystectomy, Heart Catheterization With Stent, Orthopedic Surgery Additional Past Surgical History / Comment(s): EGDs/colonoscopies, multiple low back surgeries, bilateral arm and bilateral thigh surgeries for brown recluse spider bites with infection, morphine pain pump insertion and removal due to infection, PCI with stents, L rotator cuff repair, L knee arthroscopy, cervical fusion/cage, R cataract removal. 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 He lived to be 82 yrs old. Mother History Unknown: Yes Family Medical History: Hypertension, Myocardial Infarction ([place]) Additional Family Medical History / Comment(s): Mother of a [place] at the age of 55yrs. Brother(s) Family Medical History: Cancer, COPD Additional Family Medical History / Comment(s): Leukemia General Exam Limitations: no limitations General appearance: alert, in no apparent distress Head exam: Present: atraumatic, normocephalic, normal inspection Eye exam: Present: normal appearance, PERRL, EOMI. Absent: scleral icterus, conjunctival injection, periorbital swelling ENT exam: Present: normal exam, mucous membranes moist Neck exam: Present: normal inspection. Absent: tenderness, meningismus, lymphadenopathy Respiratory exam: Present: normal lung sounds bilaterally. Absent: respiratory distress, wheezes, rales, rhonchi, stridor Cardiovascular Exam: Present: regular rate, normal rhythm, normal heart sounds. Absent: systolic murmur, diastolic murmur, rubs, gallop, clicks GI/Abdominal exam: Present: soft, normal bowel sounds. Absent: distended, tenderness, guarding, rebound, rigid Extremities exam: Present: normal inspection, full ROM, normal capillary refill. Absent: tenderness, pedal edema, joint swelling, calf tenderness Back exam: Present: normal inspection Neurological exam: Present: alert, oriented X3, CN II-XII intact Psychiatric exam: Present: normal affect, normal mood Skin exam: Present: warm, dry, intact, normal color. Absent: rash Course Vital Signs 11/14/22 00:20 Temperature 98 F Pulse Rate 105 H Respiratory 20 Rate Blood Pressure 139/74 O2 Sat by Pulse 98 Oximetry - Reevaluation(s) Reevaluation #1: 11/14/22 03:36 medical record is reviewed Reevaluation #2: 11/14/22 03:36 Patient symptoms are improved Medical Decision Making - Medical Decision Making 67 male to the emergency department for evaluation of headache, chronic he adache. The ER feels improved and can be discharged home Disposition Clinical Impression: Headache Disposition: HOME SELF-CARE Condition: Good Instructions (If sedation given, give patient instructions): Acute Headache (ED) Is patient prescribed a controlled substance at d/c from ED?: No Referrals: Nonstaff,Physician [Primary Care Provider] - 1-2 days Time of Disposition: 03:45
[2022-11-14] MEDS ORDERED: HYDROmorphone 1 MG/ML 1 ML SYRINGE IM STA (03:44)
[2022-11-14] MEDS ORDERED: PROCHLORPERAZINE 10 MG TAB PO ONE (04:00)
[2022-11-14 04:12] VITALS: BP 141/72; PULSE 101; RESP 18
== END 2022-11-14 04:12 | disposition home or self-care (01) ==
LOC: EC 00:16
DX: G43.909 Migraine, unspecified, not intractable, without status migrainosus (principal); I25.10 Atherosclerotic heart disease of native coronary artery without angina pectoris; J44.9 Chronic obstructive pulmonary disease, unspecified; Z86.718 Personal history of other venous thrombosis and embolism; I10 Essential (primary) hypertension; M19.90 Unspecified osteoarthritis, unspecified site; Z87.891 Personal history of nicotine dependence; Z88.6 Allergy status to analgesic agent
CPT/HCPCS: 99283; 96372; S0183; J1170

== ENCOUNTER 2022-11-15 05:43 | Emergency (ER) | payer MEDICARE, OTHER ==
[2022-11-15 05:55] VITALS: BP 166/100; PULSE 98; RESP 16; TEMP 97.5
[2022-11-15] MEDS ORDERED: PROCHLORPERAZINE INJ 10 MG/2 ML VIAL IM STA (06:13)
[2022-11-15] MEDS ORDERED: HYDROmorphone 1 MG/ML 1 ML SYRINGE IM STA (06:13)
--- NOTE | 2022-11-15 06:20 | ED ---
Headache HPI - General Chief Complaint: Headache Stated Complaint: Headache Time Seen by Provider: 11/15/22 06:08 Source: patient, RN notes reviewed, old records reviewed Mode of arrival: ambulatory Limitations: no limitations - History of Present Illness Initial Comments: Patient is a 67-year-old -[place] male presenting to the emergency room from home with complaints of return of chronic migraine. He states that he was here yesterday and received medication which helped with his symptoms however his headache returned early this morning. He reports having a headache similar to his current headache. He denies any neurological deficits. He denies any other complaints or concerns including any chest pain, shortness of breath, weakness, nausea, vomiting, fevers or chills. Is a past medical history significant for COPD, CAD, DVT, hypertension, hyperlipidemia, GERD, hypothyroidism and chronic pain syndrome. - Related Data Home Medications Medication Instructions Recorded Confirmed Morphine Sulfate ER [Ms Contin] 30 mg PO Q8H 10/10/17 02/26/22 tiZANidine [Zanaflex] 4 mg PO Q8H PRN 02/26/18 02/26/22 oxyCODONE-APAP 10-325MG [Percocet 1 tab PO Q8H 01/02/20 02/26/22 10-325 mg] Nitroglycerin Sl Tabs [Nitrostat] 0.4 mg SL Q5M PRN 07/13/21 02/26/22 Pregabalin [Lyrica] 100 mg PO BID 09/11/21 02/26/22 SUMAtriptan succinate [Imitrex] 25 mg PO DAILY PRN 01/04/22 02/26/22 Previous Rx's Medication Instructions Recorded Furosemide [Lasix] 20 mg PO DAILY 30 Days #30 tab 01/06/22 Pantoprazole Sodium [Protonix] 40 mg PO AC-BRKFST #14 tab 01/16/22 Ondansetron Odt [Zofran ODT] 4 mg PO Q8HR PRN #10 tab 02/18/22 Clopidogrel [Plavix] 75 mg PO DAILY 30 Days #30 tab 02/26/22 Fenofibrate 50 mg PO DAILY 30 Days #30 capsule 02/26/22 Metoprolol Succinate [Toprol XL] 150 mg PO DAILY 30 Days #45 tab 02/26/22 amLODIPine [Norvasc] 5 mg PO BID 30 Days #60 tab 02/26/22 hydrALAZINE HCL [Apresoline] 50 mg PO TID-W/MEALS 30 Days #90 02/26/22 tab lisinopriL [Zestril] 40 mg PO DAILY 30 Days #30 tab 02/26/22 Furosemide [Lasix] 40 mg PO BID #10 tablet 05/22/22 metOLazone [Zaroxolyn] 5 mg PO DAILY #5 tablet 05/27/22 Furosemide [Lasix] 40 mg PO BID #10 tablet 06/23/22 Allergies Allergy/AdvReac Type Severity Reaction Status Date / Time ibuprofen [From Motrin] Allergy Rash/Hives Verified 11/15/22 05:53 ketorolac tromethamine Allergy Rash/Hives Verified 11/15/22 05:53 [From Toradol] Review of Systems ROS Statement: Those systems with pertinent positive or pertinent negative responses have been documented in the HPI. ROS Other: All systems not noted in ROS Statement are negative. Past Medical History Past Medical History: Coronary Artery Disease (CAD), Chest Pain / Angina, COPD, Deep Vein Thrombosis (DVT), GERD/Reflux, Hyperlipidemia, Hypertension, Osteoarthritis (OA), Thyroid Disorder Additional Past Medical History / Comment(s): Occasional palpitations, gas tritis, small hiatal hernia, diverticular dx, pt states years ago he had PUD, chronic low back pain, chronic pain syndrome, migraines, DVT L arm, numbness/tingling bilateral lower legs, bilateral past R hand fracture, arthritis multiple joints, hyperthyroid, sinus problems. History of Any Multi-Drug Resistant Organisms: None Reported Past Surgical History: Back Surgery, Cholecystectomy, Heart Catheterization With Stent, Orthopedic Surgery Additional Past Surgical History / Comment(s): EGDs/colonoscopies, multiple low back surgeries, bilateral arm and bilateral thigh surgeries for brown recluse spider bites with infection, morphine pain pump insertion and removal due to infection, PCI with stents, L rotator cuff repair, L knee arthroscopy, cervical fusion/cage, R cataract removal. 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 He lived to be 82 yrs old. Mother History Unknown: Yes Family Medical History: Hypertension, Myocardial Infarction ([place]) Additional Family Medical History / Comment(s): Mother of a [place] at the age of 55yrs. Brother(s) Family Medical History: Cancer, COPD Additional Family Medical History / Comment(s): Leukemia General Exam Limitations: no limitations General appearance: alert, in no apparent distress Head exam: Present: atraumatic, normocephalic, normal inspection Eye exam: Present: normal appearance, PERRL, EOMI. Absent: scleral icterus, conjunctival injection, periorbital swelling ENT exam: Present: normal exam, mucous membranes moist Neck exam: Present: normal inspection, full ROM Respiratory exam: Present: normal lung sounds bilaterally. Absent: respiratory distress, wheezes, rales, rhonchi, stridor Cardiovascular Exam: Present: regular rate, normal rhythm, normal heart sounds. Absent: systolic murmur, diastolic murmur, rubs, gallop, clicks GI/Abdominal exam: Present: soft, normal bowel sounds. Absent: distended, tenderness, guarding, rebound, rigid Extremities exam: Present: normal inspection. Absent: pedal edema, joint swelling Back exam: Present: normal inspection Neurological exam: Present: alert, oriented X3, CN II-XII intact Psychiatric exam: Present: normal affect, normal mood Skin exam: Present: warm, dry, intact, normal color. Absent: rash Course Vital Signs 11/15/22 05:53 Temperature 97.5 F L Pulse Rate 98 Respiratory 16 Rate Blood Pressure 166/100 O2 Sat by Pulse 98 Oximetry Medical Decision Making - Medical Decision Making 67-year-old -[place] male presenting to the emergency room from home with complaints of return of chronic migraine with increased intensity without any focal neurological deficits or change in headache characteristics. Responded well to medication in the emergency room yesterday. No indication for laboratory studies or diagnostic imaging in the absence of new symptoms. Will repeat course of medications of IM Compazine and Dilaudid and monitor response. Pain improved with IM medication. Patient feeling better and stable for discharge. Will discharge home in stable condition with follow-up with his primary care provider. Return parameters to the emergency room reviewed. Case discussed with Dr. Arellano. Disposition Clinical Impression: Migraine headache Disposition: HOME SELF-CARE Condition: Stable Instructions (If sedation given, give patient instructions): Migraine Headache (ED) Additional Instructions: Please follow-up with your primary care provider. Please continue your home medications including your previously prescribed migraine treatment medications. Please return to the Emergency Department if symptoms worsen or any other concerns. Is patient prescribed a controlled substance at d/c from ED?: No Referrals: None,Stated [Primary Care Provider] - 1-2 days Time of Disposition: 06:47
== END 2022-11-15 06:50 | disposition home or self-care (01) ==
LOC: EC 05:43
DX: G43.909 Migraine, unspecified, not intractable, without status migrainosus (principal); I25.10 Atherosclerotic heart disease of native coronary artery without angina pectoris; J44.9 Chronic obstructive pulmonary disease, unspecified; Z86.718 Personal history of other venous thrombosis and embolism; I10 Essential (primary) hypertension; M19.90 Unspecified osteoarthritis, unspecified site; E03.9 Hypothyroidism, unspecified; Z87.891 Personal history of nicotine dependence; Z88.6 Allergy status to analgesic agent; Z79.899 Other long term (current) drug therapy
CPT/HCPCS: 99283; 96372 ×2; J0780; J1170

== ENCOUNTER 2022-12-09 19:52 | Emergency (ER) | payer MEDICARE, OTHER ==
[2022-12-09 20:15] VITALS: BP 149/93; PULSE 92; RESP 16; TEMP 98.6
--- NOTE | 2022-12-09 20:16 | ED ---
General Adult HPI - General Stated complaint: migraine Source: RN notes reviewed - History of Present Illness Initial comments: This note is for advanced triage purposes: 67 year old male presents to the emergency department with a chief complaint of headache x 2 days. He reports accompanying symptoms of nausea and vomiting. Advanced triage note reviewed: 67-year-old -[place] male presents the emergency department with a chief complaint of headache 2 days. He describes his headache as a "tight band" that wraps around his head. He notes symptoms of nausea and vomiting, and photophobia. He denies vision loss, vision changes, dizziness, lightheadedness, chest pain, palpitations, shortness of breath. He states "everytime I come here they give me Dilaudid and zofran and then I can go." - Related Data Home Medications Medication Instructions Recorded Confirmed Morphine Sulfate ER [Ms Contin] 30 mg PO Q8H 10/10/17 02/26/22 tiZANidine [Zanaflex] 4 mg PO Q8H PRN 02/26/18 02/26/22 oxyCODONE-APAP 10-325MG [Percocet 1 tab PO Q8H 01/02/20 02/26/22 10-325 mg] Nitroglycerin Sl Tabs [Nitrostat] 0.4 mg SL Q5M PRN 07/13/21 02/26/22 Pregabalin [Lyrica] 100 mg PO BID 09/11/21 02/26/22 SUMAtriptan succinate [Imitrex] 25 mg PO DAILY PRN 01/04/22 02/26/22 Previous Rx's Medication Instructions Recorded Furosemide [Lasix] 20 mg PO DAILY 30 Days #30 tab 01/06/22 Pantoprazole Sodium [Protonix] 40 mg PO AC-BRKFST #14 tab 01/16/22 Ondansetron Odt [Zofran ODT] 4 mg PO Q8HR PRN #10 tab 02/18/22 Clopidogrel [Plavix] 75 mg PO DAILY 30 Days #30 tab 02/26/22 Fenofibrate 50 mg PO DAILY 30 Days #30 capsule 02/26/22 Metoprolol Succinate [Toprol XL] 150 mg PO DAILY 30 Days #45 tab 02/26/22 amLODIPine [Norvasc] 5 mg PO BID 30 Days #60 tab 02/26/22 hydrALAZINE HCL [Apresoline] 50 mg PO TID-W/MEALS 30 Days #90 02/26/22 tab lisinopriL [Zestril] 40 mg PO DAILY 30 Days #30 tab 02/26/22 Furosemide [Lasix] 40 mg PO BID #10 tablet 05/22/22 metOLazone [Zaroxolyn] 5 mg PO DAILY #5 tablet 05/27/22 Furosemide [Lasix] 40 mg PO BID #10 tablet 06/23/22 Allergies Allergy/AdvReac Type Severity Reaction Status Date / Time ibuprofen [From Motrin] Allergy Rash/Hives Verified 12/09/22 20:14 ketorolac tromethamine Allergy Rash/Hives Verified 12/09/22 20:14 [From Toradol] Review of Systems ROS Statement: Those systems with pertinent positive or pertinent negative responses have been documented in the HPI. ROS Other: All systems not noted in ROS Statement are negative. Past Medical History Past Medical History: Coronary Artery Disease (CAD), Chest Pain / Angina, COPD, Deep Vein Thrombosis (DVT), GERD/Reflux, Hyperlipidemia, Hypertension, Osteoarthritis (OA), Thyroid Disorder Additional Past Medical History / Comment(s): Occasional palpitations, gastrit is, small hiatal hernia, diverticular dx, pt states years ago he had PUD, chronic low back pain, chronic pain syndrome, migraines, DVT L arm, numbness/tingling bilateral lower legs, bilateral past R hand fracture, arthritis multiple joints, hyperthyroid, sinus problems. History of Any Multi-Drug Resistant Organisms: None Reported Past Surgical History: Back Surgery, Cholecystectomy, Heart Catheterization With Stent, Orthopedic Surgery Additional Past Surgical History / Comment(s): EGDs/colonoscopies, multiple low back surgeries, bilateral arm and bilateral thigh surgeries for brown recluse spider bites with infection, morphine pain pump insertion and removal due to infection, PCI with stents, L rotator cuff repair, L knee arthroscopy, cervical fusion/cage, R cataract removal. 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 He lived to be 82 yrs old. Mother History Unknown: Yes Family Medical History: Hypertension, Myocardial Infarction ([place]) Additional Family Medical History / Comment(s): Mother of a [place] at the age of 55yrs. Brother(s) Family Medical History: Cancer, COPD Additional Family Medical History / Comment(s): Leukemia General Exam General appearance: alert, in no apparent distress Head exam: Present: atraumatic, normocephalic, normal inspection Eye exam: Present: normal appearance, PERRL, EOMI. Absent: scleral icterus, conjunctival injection, periorbital swelling ENT exam: Present: normal exam, mucous membranes moist Neck exam: Present: normal inspection. Absent: tenderness, meningismus, lymphadenopathy Respiratory exam: Present: normal lung sounds bilaterally. Absent: respiratory distress, wheezes, rales, rhonchi, stridor Cardiovascular Exam: Present: regular rate, normal rhythm, normal heart sounds. Absent: systolic murmur, diastolic murmur, rubs, gallop, clicks GI/Abdominal exam: Present: soft, normal bowel sounds. Absent: distended, tenderness, guarding, rebound, rigid Extremities exam: Present: normal inspection, full ROM, normal capillary refill. Absent: tenderness, pedal edema, joint swelling, calf tenderness Back exam: Present: normal inspection Neurological exam: Present: alert, oriented X3, CN II-XII intact Psychiatric exam: Present: normal affect, normal mood Skin exam: Present: warm, dry, intact, normal color. Absent: rash Course Vital Signs 12/09/22 20:12 Temperature 98.6 F Pulse Rate 92 Respiratory 16 Rate Blood Pressure 149/93 O2 Sat by Pulse 98 Oximetry - Reevaluation(s) Reevaluation #1: 12/09/22 21:15 Pt re-evaluated. Notified by RN that patient is refusing IV or blood work. Patient continues to request Dilaudid. Medical Decision Making - Medical Decision Making Was pt. sent in by a medical professional or institution (, PA, [employer], urgent care, hospital, or senior care...) When possible be specific @ -[No] Did you speak to anyone other than the patient for history (EMS, parent, family, police, friend...)? What history was obtained from this source @ -[No] Did you review nursing and triage notes (agree or disagree)? Why? @ -[I reviewed and agree with nursing and triage notes] Were old charts reviewed (outside hosp., previous admission, EMS record, old EKG, old radiological studies, urgent care reports/EKG's, senior care records)? Report findings @ -[No old charts were reviewed] Differential Diagnosis (chest pain, altered mental status, abdominal pain women, abdominal pain men, vaginal bleeding, weakness, fever, dyspnea, syncope, headache, dizziness, GI bleed, back pain, seizure, CVA, palpatations, mental health)? @ -[not applicable] EKG interpreted by me (3pts min.). @ -[As above] X-rays interpreted by me (1pt min.). @ -[None done] CT interpreted by me (1pt min.). @ -[None done] U/S interpreted by me (1pt. min.). @ -[None done] What testing was considered but not performed or refused? (CT, X-rays, U/S, labs)? Why? @ -[None] What meds were considered but not given or refused? Why? @ -[None] Did you discuss the management of the patient with other professionals (professionals i.e. , PA, [employer], lab, RT, psych nurse, social service worker, ice hockey coach, teacher, alumni relations officer, case briefer)? Give summary @ -[No] Was smoking cessation discussed for >3mins.? @ -[No] Was critical care preformed (if so, how long)? @ -[No] Were there social determinants of health that impacted care today? How? (Homelessness, low income, unemployed, alcoholism, drug addiction, transportation, low edu. Level, literacy, decrease access to med. care, snf, rehab)? @ -[No] Was there de-escalation of care discussed even if they declined (Discuss DNR or withdrawal of care, Hospice)? DNR status @ -[No] What co-morbidities impacted this encounter? (DM, HTN, Smoking, COPD, CAD, Cancer, CVA, ARF, Chemo, Hep., AIDS, mental health diagnosis, sleep apnea, morbid obesity)? @ -[None] Was patient admitted / discharged? Hospital course, mention meds given and route, prescriptions, significant lab abnormalities, going to OR and other pertinent info. @ -67-year-old -[place] male presents to the emergency department with a chief complaint of headache. Physical exam is essentially unremarkable. During the stay the patient is demanding Dilaudid and was refusing tylenol or toradol. Patient was given dilaudid and zofran with symptomatic relief in the emergency department. He was encouraged to follow up with his PCP in 1-2 days. Return precautions were discussed. The patient was discharged in stable condition. I discussed the case with Dr. Mckeon, [facility] who agrees with plan of care. Undiagnosed new problem with uncertain prognosis? @ -[No] Drug Therapy requiring intensive monitoring for toxicity (Heparin, Nitro, Insulin, Cardizem)? @ -[No] Were any procedures done? @ -[No] Diagnosis/symptom? @ -tension headache Acute, or Chronic, or Acute on Chronic? @ -acute Uncomplicated (without systemic symptoms) or Complicated (systemic symptoms)? @ -[default] Side effects of treatment? @ -[No] Exacerbation, Progression, or Severe Exacerbation? @ -[No] Poses a threat to life or bodily function? How? (Chest pain, [place], [place], pneumonia, PE, COPD, DKA, ARF, appy, cholecystitis, CVA, Diverticulitis, Homicidal, Suicidal, threat to staff... and all critical care pts) @ -[No] - Lab Data Lab Results 12/09/22 Range/Units 20:57 Influenza Type A (PCR) Not Detected (Not Detectd) Influenza Type B (PCR) Not Detected (Not Detectd) RSV (PCR) Not Detected (Not Detectd) SARS-CoV-2 (PCR) Not Detected (Not Detectd) Disposition Clinical Impression: Tension headache, Intractable headache Disposition: HOME SELF-CARE Condition: Stable Instructions (If sedation given, give patient instructions): Acute Headache (ED) Additional Instructions: Please return to the nearest emergency department if symptoms worsen or persist. Is patient prescribed a controlled substance at d/c from ED?: No Referrals: None,Stated [Primary Care Provider] - 1-2 days Time of Disposition: 21:05
[2022-12-09] MEDS ORDERED: PROCHLORPERAZINE INJ 10 MG/2 ML VIAL IVP STA (20:23)
[2022-12-09] MEDS ORDERED: SODIUM CHLORIDE 0.9% 1,000 ML IV ONE (20:23)
[2022-12-09] MEDS ORDERED: diphenhydrAMINE 50 MG/ML 1 ML VIAL IVP STA (20:24)
[2022-12-09] MEDS ORDERED: ONDANSETRON 4 MG/2 ML VIAL IVP STA (20:24)
[2022-12-09] MEDS ORDERED: ACETAMINOPHEN TAB 325 MG TAB PO STA (20:26)
[2022-12-09] MEDS ORDERED: ONDANSETRON ODT 4 MG TAB PO STA (21:04)
[2022-12-09] MEDS ORDERED: HYDROmorphone 0.5 MG/0.5 ML SYRINGE IM STA (21:04)
== END 2022-12-09 21:14 | disposition home or self-care (01) ==
LOC: EC 19:52
DX: G44.201 Tension-type headache, unspecified, intractable (principal); I25.10 Atherosclerotic heart disease of native coronary artery without angina pectoris; J44.9 Chronic obstructive pulmonary disease, unspecified; I10 Essential (primary) hypertension; M19.90 Unspecified osteoarthritis, unspecified site; Z87.891 Personal history of nicotine dependence; Z20.822 Contact with and (suspected) exposure to COVID-19; Z88.6 Allergy status to analgesic agent
CPT/HCPCS: 87636; 99283; 96372; J1170

== ENCOUNTER 2022-12-24 01:45 | Emergency (ER) | payer MEDICARE, OTHER ==
[2022-12-24 01:49] VITALS: BP 201/105; PULSE 90; RESP 18; TEMP 97.7
[2022-12-24] MEDS ORDERED: HYDROmorphone 1 MG/ML 1 ML SYRINGE IM STA (01:49)
[2022-12-24] MEDS ORDERED: PROCHLORPERAZINE 10 MG TAB PO STA (01:49)
[2022-12-24] MEDS ORDERED: diphenhydrAMINE 50 MG CAP PO STA (01:49)
--- NOTE | 2022-12-24 01:50 | ED ---
Headache HPI - General Chief Complaint: Headache Stated Complaint: migrane Time Seen by Provider: 12/24/22 01:49 Source: RN notes reviewed, old records reviewed Mode of arrival: ambulatory Limitations: no limitations - History of Present Illness Initial Comments: This is a 67 male to the ER today. Presents today for evaluation of headache headache is reviewed on chronic. History of migraine migraine headache currently. Patient has no trauma no fevers. No other complaints MD Complaint: headache, "migraine" -: days(s) Onset Description: gradual Location: right, left, frontal Severity: moderate Severity scale (1-10): 4 Quality: aching, throbbing Consistency: intermittent Improves With: nothing Worsens With: none Context: occurred at rest Associated Symptoms: nausea Treatments Prior to Arrival: other (0) - Related Data Home Medications Medication Instructions Recorded Confirmed Morphine Sulfate ER [Ms Contin] 30 mg PO Q8H 10/10/17 02/26/22 tiZANidine [Zanaflex] 4 mg PO Q8H PRN 02/26/18 02/26/22 oxyCODONE-APAP 10-325MG [Percocet 1 tab PO Q8H 01/02/20 02/26/22 10-325 mg] Nitroglycerin Sl Tabs [Nitrostat] 0.4 mg SL Q5M PRN 07/13/21 02/26/22 Pregabalin [Lyrica] 100 mg PO BID 09/11/21 02/26/22 SUMAtriptan succinate [Imitrex] 25 mg PO DAILY PRN 01/04/22 02/26/22 Previous Rx's Medication Instructions Recorded Furosemide [Lasix] 20 mg PO DAILY 30 Days #30 tab 01/06/22 Pantoprazole Sodium [Protonix] 40 mg PO AC-BRKFST #14 tab 01/16/22 Ondansetron Odt [Zofran ODT] 4 mg PO Q8HR PRN #10 tab 02/18/22 Clopidogrel [Plavix] 75 mg PO DAILY 30 Days #30 tab 02/26/22 Fenofibrate 50 mg PO DAILY 30 Days #30 capsule 02/26/22 Metoprolol Succinate [Toprol XL] 150 mg PO DAILY 30 Days #45 tab 02/26/22 amLODIPine [Norvasc] 5 mg PO BID 30 Days #60 tab 02/26/22 hydrALAZINE HCL [Apresoline] 50 mg PO TID-W/MEALS 30 Days #90 02/26/22 tab lisinopriL [Zestril] 40 mg PO DAILY 30 Days #30 tab 02/26/22 Furosemide [Lasix] 40 mg PO BID #10 tablet 05/22/22 metOLazone [Zaroxolyn] 5 mg PO DAILY #5 tablet 05/27/22 Furosemide [Lasix] 40 mg PO BID #10 tablet 06/23/22 Allergies Allergy/AdvReac Type Severity Reaction Status Date / Time ibuprofen [From Motrin] Allergy Rash/Hives Verified 12/24/22 01:46 ketorolac tromethamine Allergy Rash/Hives Verified 12/24/22 01:46 [From Toradol] Review of Systems ROS Statement: Those systems with pertinent positive or pertinent negative responses have been documented in the HPI. ROS Other: All systems not noted in ROS Statement are negative. Past Medical History Past Medical History: Coronary Artery Disease (CAD), Chest Pain / Angina, COPD, Deep Vein Thrombosis (DVT), GERD/Reflux, Hyperlipidemia, Hypertension, Osteoarthritis (OA), Thyroid Disorder Additional Past Medical History / Comment(s): Occasional palpitations, gastritis, small hiatal hernia, diverticular dx, pt states years ago he had PUD, chronic low back pain, chronic pain syndrome, migraines, DVT L arm, numbness/tingling bilateral lower legs, bilateral past R hand fracture, arthritis multiple joints, hyperthyroid, sinus problems. History of Any Multi-Drug Resistant Organisms: None Reported Past Surgical History: Back Surgery, Cholecystectomy, Heart Catheterization With Stent, Orthopedic Surgery Additional Past Surgical History / Comment(s): EGDs/colonoscopies, multiple low back surgeries, bilateral arm and bilateral thigh surgeries for brown recluse spider bites with infection, morphine pain pump insertion and removal due to infection, PCI with stents, L rotator cuff repair, L knee arthroscopy, cervical fusion/cage, R cataract removal. 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 He lived to be 82 yrs old. Mother History Unknown: Yes Family Medical History: Hypertension, Myocardial Infarction (NH) Additional Family Medical History / Comment(s): Mother of a NH at the age of 55yrs. Brother(s) Family Medical History: Cancer, COPD Additional Family Medical History / Comment(s): Leukemia General Exam Limitations: no limitations General appearance: alert, in no apparent distress Head exam: Present: atraumatic, normocephalic, normal inspection Eye exam: Present: normal appearance, PERRL, EOMI. Absent: scleral icterus, conjunctival injection, periorbital swelling ENT exam: Present: normal exam, mucous membranes moist Neck exam: Present: normal inspection. Absent: tenderness, meningismus, lymphadenopathy Respiratory exam: Present: normal lung sounds bilaterally. Absent: respiratory distress, wheezes, rales, rhonchi, stridor Cardiovascular Exam: Present: regular rate, normal rhythm, normal heart sounds. Absent: systolic murmur, diastolic murmur, rubs, gallop, clicks GI/Abdominal exam: Present: soft, normal bowel sounds. Absent: distended, tenderness, guarding, rebound, rigid Extremities exam: Present: normal inspection, full ROM, normal capillary refill. Absent: tenderness, pedal edema, joint swelling, calf tenderness Back exam: Present: normal inspection Neurological exam: Present: alert, oriented X3, CN II-XII intact Psychiatric exam: Present: normal affect, normal mood Skin exam: Present: warm, dry, intact, normal color. Absent: rash Course Vital Signs 12/24/22 01:46 Temperature 97.7 F Pulse Rate 90 Respiratory 18 Rate Blood Pressure 201/105 O2 Sat by Pulse 97 Oximetry - Reevaluation(s) Reevaluation #1: 12/24/22 01:52 Records reviewed Reevaluation #2: 12/24/22 01:52 Patient informed results questions answered Reevaluation #3: 12/24/22 01:52 Patient symptoms improved here in the ER Reevaluation #4: 12/24/22 01:52 Differential Headache: Migraine, tension, cluster, carbon monoxide, central venous thrombosis, pension karma temporal arteritis, acute closure glaucoma, intercranial hemorrhage, mastoiditis, sinusitis, head injury, this is not meant to be an all-inclusive list. Reevaluation #5: 12/24/22 01:52 Was pt. sent in by a medical professional or institution? @ -no Did you speak to anyone other than the patient for history? @ -no Did you review nursing and triage notes? @ -agree Were old charts reviewed? @ -yes Differential Diagnosis? @ -prior EKG interpreted by me (3pts min.)? @ -[none] X-rays interpreted by me (1pt min.)? @ -[none] CT interpreted by me (1pt min.)? @ -[none] U/S interpreted by me (1pt. min.)? @ -[none] What testing was considered but not performed? (CT, X-rays, U/S, labs)? Why? @ -no What meds were considered but not given? Why? @ --no Did you discuss the management of the patient with other professionals? @ -no Did you reconcile home meds? @ -[none] Was smoking cessation discussed for >3mins.? @ -[none] Was critical care preformed (if so, how long)? @ -[none] Were there social determinants of health that impacted care today? How? (Homelessness, low income, unemployed, alcoholism, drug addiction, transportation, low edu. Level, literacy, decrease access to med. care, residential, rehab)? @ -no Was there de-escalation of care discussed even if they declined? (Discuss DNR or withdrawal of care, Hospice)? @ -no What co-morbidities impacted this encounter? (DM, HTN, Smoking, COPD, CAD, Cancer, CVA, Hep., AIDS, mental health diagnosis, sleep apnea, morbid obesity)? @ -no Was patient admitted / discharged? @ -dc Undiagnosed new problem with uncertain prognosis? @ -[none] Drug Therapy requiring intensive monitoring for toxicity (Heparin, Nitro, Insulin, Cardizem)? @ -[none] Were any procedures done? @ -[none] Diagnosis/symptom? @ -[default] Acute, or Chronic, or Acute on Chronic? @ -[default] Uncomplicated (without systemic symptoms) or Complicated (systemic symptoms)? @ -[default] Side effects of treatment? @ -[none] Exacerbation, Progression, or Severe Exacerbation] @ -[no] Poses a threat to life or bodily function? @ -[no] Medical Decision Making - Medical Decision Making 67 male to the emergency department for evaluation acute on chronic migraine. Patient given headache treatment here in the ER feels that he can be discharged home Disposition Clinical Impression: Vomiting Disposition: HOME SELF-CARE Condition: Good Instructions (If sedation given, give patient instructions): Acute Headache (ED) Is patient prescribed a controlled substance at d/c from ED?: No Referrals: None,Stated [Primary Care Provider] - 1-2 days Time of Disposition: 02:10
== END 2022-12-24 02:12 | disposition home or self-care (01) ==
LOC: EC 01:45
DX: R11.10 Vomiting, unspecified (principal); I10 Essential (primary) hypertension; I25.10 Atherosclerotic heart disease of native coronary artery without angina pectoris; J44.9 Chronic obstructive pulmonary disease, unspecified; Z87.891 Personal history of nicotine dependence; Z88.6 Allergy status to analgesic agent; Z88.8 Allergy status to other drugs, medicaments and biological substances
CPT/HCPCS: 99283; 96372; S0183; J1170; 99282

== ENCOUNTER 2023-02-11 23:05 | Emergency (ER) | payer MEDICARE, OTHER ==
[2023-02-11 23:11] VITALS: BP 177/89; PULSE 112; RESP 20; TEMP 98.1
[2023-02-12] MEDS ORDERED: ORPHENADRINE 30 MG/ML 2 ML VIAL IVP STA (00:30)
[2023-02-12] MEDS ORDERED: METOCLOPRAMIDE 5 MG/ML 2 ML VIAL IVP STA (00:30)
[2023-02-12] MEDS ORDERED: SODIUM CHLORIDE 0.9% 1,000 ML IV ONE (00:30)
[2023-02-12] MEDS ORDERED: DEXAMETHASONE SOD PHOSPHATE 10 MG/ML 1 ML VIAL IVP STA (00:30)
[2023-02-12] MEDS ORDERED: ORPHENADRINE 30 MG/ML 2 ML VIAL IM STA (00:44)
[2023-02-12] MEDS ORDERED: METOCLOPRAMIDE 5 MG/ML 2 ML VIAL IM PRN (00:44)
[2023-02-12] MEDS ORDERED: DEXAMETHASONE SOD PHOSPHATE 10 MG/ML 1 ML VIAL IM STA (00:44)
[2023-02-12] MEDS ORDERED: MORPHINE SULFATE 4 MG/ML SYRINGE IM STA (01:39)
--- NOTE | 2023-02-12 02:44 | ED ---
Headache HPI - General Chief Complaint: Headache Stated Complaint: Migraine Time Seen by Provider: 02/12/23 00:26 Mode of arrival: ambulatory Limitations: no limitations - History of Present Illness Initial Comments: Patient is a 67-year-old male presenting with chief complaint of headache. Patient states that he has a migraine and this pain feels consistent with his history of migraines. It is located primarily in the frontal region with some pain at the base of the skull and neck. He admits to photophobia, nausea, and vomiting. He has taken Excedrin at home. No dizziness, loss of consciousness, seizure, head injury, chest pain, difficulty breathing, numbness, tingling, weakness. - Related Data Home Medications Medication Instructions Recorded Confirmed Morphine Sulfate ER [Ms Contin] 30 mg PO Q8H 10/10/17 02/26/22 tiZANidine [Zanaflex] 4 mg PO Q8H PRN 02/26/18 02/26/22 oxyCODONE-APAP 10-325MG [Percocet 1 tab PO Q8H 01/02/20 02/26/22 10-325 mg] Nitroglycerin Sl Tabs [Nitrostat] 0.4 mg SL Q5M PRN 07/13/21 02/26/22 Pregabalin [Lyrica] 100 mg PO BID 09/11/21 02/26/22 SUMAtriptan succinate [Imitrex] 25 mg PO DAILY PRN 01/04/22 02/26/22 Previous Rx's Medication Instructions Recorded Furosemide [Lasix] 20 mg PO DAILY 30 Days #30 tab 01/06/22 Pantoprazole Sodium [Protonix] 40 mg PO AC-BRKFST #14 tab 01/16/22 Ondansetron Odt [Zofran ODT] 4 mg PO Q8HR PRN #10 tab 02/18/22 Clopidogrel [Plavix] 75 mg PO DAILY 30 Days #30 tab 02/26/22 Fenofibrate 50 mg PO DAILY 30 Days #30 capsule 02/26/22 Metoprolol Succinate [Toprol XL] 150 mg PO DAILY 30 Days #45 tab 02/26/22 amLODIPine [Norvasc] 5 mg PO BID 30 Days #60 tab 02/26/22 hydrALAZINE HCL [Apresoline] 50 mg PO TID-W/MEALS 30 Days #90 02/26/22 tab lisinopriL [Zestril] 40 mg PO DAILY 30 Days #30 tab 02/26/22 Furosemide [Lasix] 40 mg PO BID #10 tablet 05/22/22 metOLazone [Zaroxolyn] 5 mg PO DAILY #5 tablet 05/27/22 Furosemide [Lasix] 40 mg PO BID #10 tablet 06/23/22 Allergies Allergy/AdvReac Type Severity Reaction Status Date / Time ibuprofen [From Motrin] Allergy Rash/Hives Verified 02/11/23 23:10 ketorolac tromethamine Allergy Rash/Hives Verified 02/11/23 23:10 [From Toradol] Review of Systems ROS Statement: Those systems with pertinent positive or pertinent negative responses have been documented in the HPI. ROS Other: All systems not noted in ROS Statement are negative. Past Medical History Past Medical History: Coronary Artery Disease (CAD), Chest Pain / Angina, COPD, Deep Vein Thrombosis (DVT), GERD/Reflux, Hyperlipidemia, Hypertension, Osteoarthritis (OA), Thyroid Disorder Additional Past Medical History / Comment(s): Occasional palpitations, gastritis, small hiatal hernia, diverticular dx, pt states years ago he had PUD, chronic low back pain, chronic pain syndrome, migraines, DVT L arm, numbness/tingling bilateral lower legs, bilateral past R hand fracture, arthritis multiple joints, hyperthyroid, sinus problems. History of Any Multi-Drug Resistant Organisms: None Reported Past Surgical History: Back Surgery, Cholecystectomy, Heart Catheterization With Stent, Orthopedic Surgery Additional Past Surgical History / Comment(s): EGDs/colonoscopies, multiple low back surgeries, bilateral arm and bilateral thigh surgeries for brown recluse spider bites with infection, morphine pain pump insertion and removal due to infection, PCI with stents, L rotator cuff repair, L knee arthroscopy, cervical fusion/cage, R cataract removal. 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 He lived to be 82 yrs old. Mother History Unknown: Yes Family Medical History: Hypertension, Myocardial Infarction (ND) Additional Family Medical History / Comment(s): Mother of a ND at the age of 55yrs. Brother(s) Family Medical History: Cancer, COPD Additional Family Medical History / Comment(s): Leukemia General Exam Limitations: no limitations General appearance: alert, in no apparent distress Head exam: Present: atraumatic, normocephalic, normal inspection Eye exam: Present: normal appearance, EOMI. Absent: periorbital swelling, periorbital tenderness Neck exam: Present: normal inspection, full ROM. Absent: tenderness Respiratory exam: Present: normal lung sounds bilaterally. Absent: respiratory distress, wheezes, rales, rhonchi, stridor Cardiovascular Exam: Present: regular rate, normal rhythm, normal heart sounds. Absent: systolic murmur, diastolic murmur, rubs, gallop, clicks Neurological exam: Present: alert, oriented X3, CN II-XII intact Expanded Patient oriented to: Present: person, place, time Speech: Present: fluid speech Cranial nerves: EOM's Intact: Normal Eye Response: (4) open spontaneously Motor Response: (6) obeys commands Verbal Response: (5) oriented [place] Total: 15 Psychiatric exam: Present: normal affect, normal mood Skin exam: Present: warm, dry, intact, normal color. Absent: rash Course Vital Signs 02/11/23 23:09 Temperature 98.1 F Pulse Rate 112 H Respiratory 20 Rate Blood Pressure 177/89 O2 Sat by Pulse 99 Oximetry Medical Decision Making - Medical Decision Making Was pt. sent in by a medical professional or institution (, PA, AREA OPERATIONS MANAGER, urgent care, hospital, or [place] [facility] facility...) When possible be specific @ -No Did you speak to anyone other than the patient for history (EMS, parent, family, police, friend...)? What history was obtained from this source @ -No Did you review nursing and triage notes (agree or disagree)? Why? @ -I reviewed and agree with nursing and triage notes Were old charts reviewed (outside hosp., previous admission, EMS record, old EKG, old radiological studies, urgent care reports/EKG's, [place] [facility] facility records)? Report findings @ -No old charts were reviewed Differential Diagnosis (chest pain, altered mental status, abdominal pain women, abdominal pain men, vaginal bleeding, weakness, fever, dyspnea, syncope, headache, dizziness, GI bleed, back pain, seizure, CVA, palpatations, mental health, musculoskeletal)? @ -MDM Differential Headache: Migraine, tension, cluster, carbon monoxide, central venous thrombosis, pension karma temporal arteritis, acute closure glaucoma, intercranial hemorrhage, mastoiditis, sinusitis, head injury this is not meant to be an all-inclusive list. EKG interpreted by me (3pts min.). @ -As above X-rays interpreted by me (1pt min.). @ -None done CT interpreted by me (1pt min.). @ -None done U/S interpreted by me (1pt. min.). @ -None done What testing was considered but not performed or refused? (CT, X-rays, U/S, labs)? Why? @ -None What meds were considered but not given or refused? Why? @ -None Did you discuss the management of the patient with other professionals (professionals i.e. , PA, AREA OPERATIONS MANAGER, lab, RT, psych nurse, social studies department chair, certified prosthetist vice president, teacher, tax compliance officer, case finisher)? Give summary @ -No Was smoking cessation discussed for >3mins.? @ -No Was critical care preformed (if so, how long)? @ -No Were there social determinants of health that impacted care today? How? (Homelessness, low income, unemployed, alcoholism, drug addiction, transportation, low edu. Level, literacy, decrease access to med. care, long-term, rehab)? @ -No Was there de-escalation of care discussed even if they declined (Discuss DNR or withdrawal of care, Hospice)? DNR status @ -No What co-morbidities impacted this encounter? (DM, HTN, Smoking, COPD, CAD, Cancer, CVA, ARF, Chemo, Hep., AIDS, mental health diagnosis, sleep apnea, morbid obesity)? @ -None Was patient admitted / discharged? Hospital course, mention meds given and route, prescriptions, significant lab abnormalities, going to OR and other pertinent info. @ -Patient is a 67-year-old male with history of migraines presenting with chief complaint of headache. No focal neurological deficits on examination and patient states this pain is consistent with his regular migraines. Patient is given Reglan, Decadron, Norflex, and morphine. He appears stable for discharge home on reassessment and is agreeable with plan. Follow-up with PCP. Report back to ER with any new or worsening symptoms. Discussed return parameters and answered all questions. Patient conveyed verbal understanding and agreed to the plan. I discussed this case in detail with my attending Dr. Mckeon Undiagnosed new problem with uncertain prognosis? @ -No Drug Therapy requiring intensive monitoring for toxicity (Heparin, Nitro, Insulin, Cardizem)? @ -No Were any procedures done? @ -No Diagnosis/symptom? @ -Migraine headache Acute, or Chronic, or Acute on Chronic? @ -Acute on chronic Uncomplicated (without systemic symptoms) or Complicated (systemic symptoms)? @ -Uncomplicated Side effects of treatment? @ -No Exacerbation, Progression, or Severe Exacerbation? @ -No Poses a threat to life or bodily function? How? (Chest pain, [place], [place], pneumonia, PE, COPD, DKA, ARF, appy, cholecystitis, CVA, Diverticulitis, Homicidal, Suicidal, threat to staff... and all critical care pts) @ -No Disposition Clinical Impression: Migraine headache Disposition: HOME SELF-CARE Condition: Good Instructions (If sedation given, give patient instructions): Acute Headache (ED) Additional Instructions: Follow-up with PCP. Report back to ER with any new or worsening symptoms. Take Tylenol as needed for pain control. Is patient prescribed a controlled substance at d/c from ED?: No Referrals: None,Stated [Primary Care Provider] - 1-2 days Time of Disposition: 02:44
== END 2023-02-12 03:14 | disposition home or self-care (01) ==
LOC: EC 23:05
DX: G43.909 Migraine, unspecified, not intractable, without status migrainosus (principal); I25.10 Atherosclerotic heart disease of native coronary artery without angina pectoris; J44.9 Chronic obstructive pulmonary disease, unspecified; I10 Essential (primary) hypertension; M19.90 Unspecified osteoarthritis, unspecified site; Z79.899 Other long term (current) drug therapy; Z88.6 Allergy status to analgesic agent; Z87.891 Personal history of nicotine dependence; Z79.1 Long term (current) use of non-steroidal anti-inflammatories (NSAID)
CPT/HCPCS: 99283; 96372 ×4; J2270; J1100; J2360; J2765

== ENCOUNTER 2023-02-12 12:53 | Emergency (ER) | payer MEDICARE, OTHER ==
[2023-02-12 12:59] VITALS: TEMP 97.4
--- NOTE | 2023-02-12 13:40 | ED ---
General Adult HPI - General Chief complaint: Headache Stated complaint: headache, lt sided facial pain/back pain Time Seen by Provider: 02/12/23 13:30 Source: patient, RN notes reviewed Mode of arrival: ambulatory Limitations: no limitations - History of Present Illness Initial comments: Patient is a pleasant 67-year-old male presenting to the emergency department with concern for headache. Patient states headache has been bothering him for the past day or more. Patient does have chronic headaches and frequently gets these a few times per month. Headache today is similar to his previous ones. This does radiate down towards his back and arms. This is also similar to previous. Patient also has history of chronic back pain. Patient did lose his approximate one month ago and has increased anxiety regarding this. Patient states he has been taking his medication as directed. Patient requests a shot of Dilaudid and something for nausea and discharge. - Related Data Home Medications Medication Instructions Recorded Confirmed Morphine Sulfate ER [Ms Contin] 30 mg PO Q8H 10/10/17 02/26/22 tiZANidine [Zanaflex] 4 mg PO Q8H PRN 02/26/18 02/26/22 oxyCODONE-APAP 10-325MG [Percocet 1 tab PO Q8H 01/02/20 02/26/22 10-325 mg] Nitroglycerin Sl Tabs [Nitrostat] 0.4 mg SL Q5M PRN 07/13/21 02/26/22 Pregabalin [Lyrica] 100 mg PO BID 09/11/21 02/26/22 SUMAtriptan succinate [Imitrex] 25 mg PO DAILY PRN 01/04/22 02/26/22 Previous Rx's Medication Instructions Recorded Furosemide [Lasix] 20 mg PO DAILY 30 Days #30 tab 01/06/22 Pantoprazole Sodium [Protonix] 40 mg PO AC-BRKFST #14 tab 01/16/22 Ondansetron Odt [Zofran ODT] 4 mg PO Q8HR PRN #10 tab 02/18/22 Clopidogrel [Plavix] 75 mg PO DAILY 30 Days #30 tab 02/26/22 Fenofibrate 50 mg PO DAILY 30 Days #30 capsule 02/26/22 Metoprolol Succinate [Toprol XL] 150 mg PO DAILY 30 Days #45 tab 02/26/22 amLODIPine [Norvasc] 5 mg PO BID 30 Days #60 tab 02/26/22 hydrALAZINE HCL [Apresoline] 50 mg PO TID-W/MEALS 30 Days #90 02/26/22 tab lisinopriL [Zestril] 40 mg PO DAILY 30 Days #30 tab 02/26/22 Furosemide [Lasix] 40 mg PO BID #10 tablet 05/22/22 metOLazone [Zaroxolyn] 5 mg PO DAILY #5 tablet 05/27/22 Furosemide [Lasix] 40 mg PO BID #10 tablet 06/23/22 Allergies Allergy/AdvReac Type Severity Reaction Status Date / Time ibuprofen [From Motrin] Allergy Rash/Hives Verified 02/11/23 23:10 ketorolac tromethamine Allergy Rash/Hives Verified 02/11/23 23:10 [From Toradol] Review of Systems ROS Statement: Those systems with pertinent positive or pertinent negative responses have been documented in the HPI. ROS Other: All systems not noted in ROS Statement are negative. Constitutional: Denies: fever Eyes: Denies: eye pain ENT: Denies: ear pain Respiratory: Denies: cough Cardiovascular: Denies: chest pain Endocrine: Denies: fatigue Gastrointestinal: Reports: nausea. Denies: abdominal pain, vomiting Genitourinary: Denies: dysuria Musculoskeletal: Reports: as per HPI Skin: Denies: rash Neurological: Reports: as per HPI. Denies: weakness, confusion Psychiatric: Reports: anxiety Past Medical History Past Medical History: Coronary Artery Disease (CAD), Chest Pain / Angina, COPD, Deep Vein Thrombosis (DVT), GERD/Reflux, Hyperlipidemia, Hypertension, Osteoarthritis (OA), Thyroid Disorder Additional Past Medical History / Comment(s): Occasional palpitations, gastritis, small hiatal hernia, diverticular dx, pt states years ago he had PUD, chronic low back pain, chronic pain syndrome, migraines, DVT L arm, numbness/tingling bilateral lower legs, bilateral past R hand fracture, arthritis multiple joints, hyperthyroid, sinus problems. History of Any Multi-Drug Resistant Organisms: None Reported Past Surgical History: Back Surgery, Cholecystectomy, Heart Catheterization With Stent, Orthopedic Surgery Additional Past Surgical History / Comment(s): EGDs/colonoscopies, multiple low back surgeries, bilateral arm and bilateral thigh surgeries for brown recluse spider bites with infection, morphine pain pump insertion and removal due to infection, PCI with stents, L rotator cuff repair, L knee arthroscopy, cervical fusion/cage, R cataract removal. 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 He lived to be 82 yrs old. Mother History Unknown: Yes Family Medical History: Hypertension, Myocardial Infarction ([place]) Additional Family Medical History / Comment(s): Mother of a [place] at the age of 55yrs. Brother(s) Family Medical History: Cancer, COPD Additional Family Medical History / Comment(s): Leukemia General Exam Limitations: no limitations General appearance: alert, in no apparent distress Head exam: Present: normocephalic Eye exam: Present: normal appearance Neck exam: Present: normal inspection Respiratory exam: Present: normal lung sounds bilaterally Cardiovascular Exam: Present: tachycardia GI/Abdominal exam: Present: soft. Absent: tenderness Extremities exam: Present: normal inspection. Absent: pedal edema, calf tenderness Neurological exam: Present: alert, oriented X3, CN II-XII intact. Absent: motor sensory deficit Expanded Neurological exam: Present: protecting the airway Speech: Present: fluid speech Cranial nerves: EOM's Intact: Normal Sensory exam: Upper Extremity Light Touch: Normal, Lower Extremity Light Touch: Normal Motor strength exam: RUE: 5, LUE: 5, RLE: 5, LLE: 5 Eye Response: (4) open spontaneously Motor Response: (6) obeys commands Verbal Response: (5) oriented Psychiatric exam: Present: normal affect, normal mood Skin exam: Present: normal color Course Vital Signs 02/12/23 02/12/23 02/12/23 12:55 14:49 15:29 Temperature 97.4 F L Pulse Rate 120 H 109 H 87 Respiratory 20 20 19 Rate Blood Pressure 170/115 191/130 208/105 O2 Sat by Pulse 98 98 98 Oximetry 02/12/23 16:21 Temperature Pulse Rate 112 H Respiratory 18 Rate Blood Pressure 186/110 O2 Sat by Pulse 98 Oximetry - Reevaluation(s) Reevaluation #1: 02/12/23 14:26 Patient specifically asking for Dilaudid to multiple providers and caretakers over multiple occasions Medical Decision Making - Medical Decision Making Was pt. sent in by a medical professional or institution (, FAITH, WIRE CHARGER, urgent care, hospital, or skilled nursing...) When possible be specific @ -No Did you speak to anyone other than the patient for history (EMS, parent, family, police, friend...)? What history was obtained from this source @ -No Did you review nursing and triage notes (agree or disagree)? Why? @ -I reviewed and agree with nursing and triage notes Were old charts reviewed (outside hosp., previous admission, EMS record, old EKG, old radiological studies, urgent care reports/EKG's, skilled nursing records)? Report findings @ -Multiple previous documentations reviewed including previous Differential Diagnosis (chest pain, altered mental status, abdominal pain women, abdominal pain men, vaginal bleeding, weakness, fever, dyspnea, syncope, headache, dizziness, GI bleed, back pain, seizure, CVA, palpatations, mental health)? @ -not applicable EKG interpreted by me (3pts min.). @ -As above X-rays interpreted by me (1pt min.). @ -None done CT interpreted by me (1pt min.). @ -None done U/S interpreted by me (1pt. min.). @ -None done What testing was considered but not performed or refused? (CT, X-rays, U/S, labs)? Why? @ -Consider repeat CT however patient states this is chronic and unchanged problem What meds were considered but not given or refused? Why? @ -None Did you discuss the management of the patient with other professionals (professionals i.e. FAITH Burns, WIRE CHARGER, lab, RT, psych nurse, director social, railroader, teacher, booking officer, test case developer)? Give summary @ -No Was smoking cessation discussed for >3mins.? @ -No Was critical care preformed (if so, how long)? @ -No Were there social determinants of health that impacted care today? How? (Homelessness, low income, unemployed, alcoholism, drug addiction, transportation, low edu. Level, literacy, decrease access to med. care, detention, rehab)? @ -No Was there de-escalation of care discussed even if they declined (Discuss DNR or withdrawal of care, Hospice)? DNR status @ -No What co-morbidities impacted this encounter? (DM, HTN, Smoking, COPD, CAD, Cancer, CVA, ARF, Chemo, Hep., AIDS, mental health diagnosis, sleep apnea, morbid obesity)? @ -None Was patient admitted / discharged? Hospital course, mention meds given and route, prescriptions, significant lab abnormalities, going to OR and other pertinent info. @ -Patient was given medications for blood pressure and headache. Nursing staff did have difficulty with IV and IV did "blow". Patient was requesting narcotic medications multiple times to multiple providers and multiple staff. Patient specifically requesting Dilaudid. Patient has eloped Undiagnosed new problem with uncertain prognosis? @ -No Drug Therapy requiring intensive monitoring for toxicity (Heparin, Nitro, Insulin, Cardizem)? @ -No Were any procedures done? @ -No Diagnosis/symptom? @ -Hypertension, headache Acute, or Chronic, or Acute on Chronic? @ -Acute on chronic, acute on chronic Uncomplicated (without systemic symptoms) or Complicated (systemic symptoms)? @ -default Side effects of treatment? @ -No Exacerbation, Progression, or Severe Exacerbation? @ -No Poses a threat to life or bodily function? How? (Chest pain, [place], [place], pneumonia, PE, COPD, DKA, ARF, appy, cholecystitis, CVA, Diverticulitis, Homicidal, Suicidal, threat to staff... and all critical care pts) @ -No - Lab Data Result diagrams: 02/12/23 15:28 Lab Results 02/12/23 Range/Units 15:28 Sodium 138 (137-145) mmol/L Potassium 4.5 (3.5-5.1) mmol/L Chloride 106 (98-107) mmol/L Carbon Dioxide 19 L (22-30) mmol/L Anion Gap 13 mmol/L BUN 9 (9-20) mg/dL Creatinine 0.59 L (0.66-1.25) mg/dL Est GFR (CKD-EPI)AfAm >90 (>60 ml/min/1.73 sqM) Est GFR (CKD-EPI)NonAf >90 (>60 ml/min/1.73 sqM) Glucose 109 H (74-99) mg/dL Calcium 10.0 (8.4-10.2) mg/dL Total Bilirubin 0.6 (0.2-1.3) mg/dL AST 18 (17-59) U/L ALT 10 (4-49) U/L Alkaline Phosphatase 62 (38-126) U/L Total Protein 8.2 (6.3-8.2) g/dL Albumin 5.0 (3.5-5.0) g/dL Disposition Clinical Impression: Chronic pain, HTN (hypertension) Disposition: Left Against Medical Advice Is patient prescribed a controlled substance at d/c from ED?: No Referrals: None,Stated [Primary Care Provider] - 1-2 days Time of Disposition: 18:03
[2023-02-12] MEDS ORDERED: ONDANSETRON ODT 4 MG TAB PO STA (13:43)
[2023-02-12] MEDS ORDERED: LORazepam 1 MG TAB PO STA (13:45)
[2023-02-12] MEDS ORDERED: hydrALAZINE HCL 50 MG TAB PO STA (14:02)
[2023-02-12] MEDS ORDERED: amLODIPine 5 MG TAB PO STA (14:56)
[2023-02-12] MEDS ORDERED: FUROSEMIDE 40 MG TAB PO STA (14:56)
[2023-02-12] MEDS ORDERED: diphenhydrAMINE 50 MG/ML 1 ML VIAL IM STA (15:44)
[2023-02-12 16:02] LABS: ALT 10 U/L (4-49); AST 18 U/L (17-59); African American GFR (CKD) >90 (>60 ml/min/1.73 sqM); Alkaline Phosphatase 62 U/L (38-126); Anion Gap 13 mmol/L; Blood Urea Nitrogen 9 mg/dL (9-20); Carbon Dioxide 19 mmol/L (22-30); Chloride 106 mmol/L (98-107); Glucose 109 mg/dL (74-99); Non-African American GFR(CKD) >90 (>60 ml/min/1.73 sqM); Potassium 4.5 mmol/L (3.5-5.1); Sodium 138 mmol/L (137-145); Total Bilirubin 0.6 mg/dL (0.2-1.3); Total Protein 8.2 g/dL (6.3-8.2)
[2023-02-12 16:22] VITALS: BP 186/110; PULSE 112; RESP 18
[2023-02-12] MEDS ORDERED: hydrALAZINE HCL 20 MG/ML 1 ML VIAL IM STA (16:28)
== END 2023-02-12 18:47 | disposition left against medical advice (07) ==
LOC: EC 12:53
DX: R51.9 Headache, unspecified (principal); G89.29 Other chronic pain; I10 Essential (primary) hypertension; I25.10 Atherosclerotic heart disease of native coronary artery without angina pectoris; J44.9 Chronic obstructive pulmonary disease, unspecified; M19.90 Unspecified osteoarthritis, unspecified site; Z87.891 Personal history of nicotine dependence; Z88.6 Allergy status to analgesic agent; Z79.899 Other long term (current) drug therapy; Z79.1 Long term (current) use of non-steroidal anti-inflammatories (NSAID)
CPT/HCPCS: 99284 ×2; 96372 ×3; 36415; 80053; J0360; J1200

== ENCOUNTER 2023-03-11 10:35 | Emergency (ER) | payer MEDICARE, OTHER ==
[2023-03-11] MEDS ORDERED: METOCLOPRAMIDE 5 MG/ML 2 ML VIAL IM STA (11:29)
[2023-03-11] MEDS ORDERED: diphenhydrAMINE 50 MG/ML 1 ML VIAL IM STA (11:29)
--- NOTE | 2023-03-11 11:30 | ED ---
General Adult HPI - General Chief complaint: Headache Stated complaint: Headache Time Seen by Provider: 03/11/23 10:59 Source: patient, RN notes reviewed Mode of arrival: ambulatory Limitations: no limitations - History of Present Illness Initial comments: 67-year-old male presents to the emergency department with chief complaint of migraine. Patient states that he he has had a migraine for 2 days. States it is in the the frontal portion of his head. He states that he has had migraines for years and this is similar in character to PREVIOUS migraines. He states that he did not take his Percocet today. He states that he gets injections in his neck for the migraines. Denies fever, chills, neck stiffness. Denies dizziness. - Related Data Home Medications Medication Instructions Recorded Confirmed Morphine Sulfate ER [Ms Contin] 30 mg PO Q8H 10/10/17 02/26/22 tiZANidine [Zanaflex] 4 mg PO Q8H PRN 02/26/18 02/26/22 oxyCODONE-APAP 10-325MG [Percocet 1 tab PO Q8H 01/02/20 02/26/22 10-325 mg] Nitroglycerin Sl Tabs [Nitrostat] 0.4 mg SL Q5M PRN 07/13/21 02/26/22 Pregabalin [Lyrica] 100 mg PO BID 09/11/21 02/26/22 SUMAtriptan succinate [Imitrex] 25 mg PO DAILY PRN 01/04/22 02/26/22 Previous Rx's Medication Instructions Recorded Furosemide [Lasix] 20 mg PO DAILY 30 Days #30 tab 01/06/22 Pantoprazole Sodium [Protonix] 40 mg PO AC-BRKFST #14 tab 01/16/22 Ondansetron Odt [Zofran ODT] 4 mg PO Q8HR PRN #10 tab 02/18/22 Clopidogrel [Plavix] 75 mg PO DAILY 30 Days #30 tab 02/26/22 Fenofibrate 50 mg PO DAILY 30 Days #30 capsule 02/26/22 Metoprolol Succinate [Toprol XL] 150 mg PO DAILY 30 Days #45 tab 02/26/22 amLODIPine [Norvasc] 5 mg PO BID 30 Days #60 tab 02/26/22 hydrALAZINE HCL [Apresoline] 50 mg PO TID-W/MEALS 30 Days #90 02/26/22 tab lisinopriL [Zestril] 40 mg PO DAILY 30 Days #30 tab 02/26/22 Furosemide [Lasix] 40 mg PO BID #10 tablet 05/22/22 metOLazone [Zaroxolyn] 5 mg PO DAILY #5 tablet 05/27/22 Furosemide [Lasix] 40 mg PO BID #10 tablet 06/23/22 Allergies Allergy/AdvReac Type Severity Reaction Status Date / Time ibuprofen [From Motrin] Allergy Rash/Hives Verified 03/11/23 10:49 ketorolac tromethamine Allergy Rash/Hives Verified 03/11/23 10:49 [From Toradol] Review of Systems ROS Statement: Those systems with pertinent positive or pertinent negative responses have been documented in the HPI. ROS Other: All systems not noted in ROS Statement are negative. Past Medical History Past Medical History: Coronary Artery Disease (CAD), Chest Pain / Angina, COPD, Deep Vein Thrombosis (DVT), GERD/Reflux, Hyperlipidemia, Hypertension, Osteoarthritis (OA), Thyroid Disorder Additional Past Medical History / Comment(s): Occasional palpitations, gastritis, small hiatal hernia, diverticular dx, pt states years ago he had PUD, chronic low back pain, chronic pain syndrome, migraines, DVT L arm, numbness/tingling bilateral lower legs, bilateral past R hand fracture, arthritis multiple joints, hyperthyroid, sinus problems. History of Any Multi-Drug Resistant Organisms: None Reported Past Surgical History: Back Surgery, Cholecystectomy, Heart Catheterization With Stent, Orthopedic Surgery Additional Past Surgical History / Comment(s): EGDs/colonoscopies, multiple low back surgeries, bilateral arm and bilateral thigh surgeries for brown recluse spider bites with infection, morphine pain pump insertion and removal due to infection, PCI with stents, L rotator cuff repair, L knee arthroscopy, cervical fusion/cage, R cataract removal. 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 He lived to be 82 yrs old. Mother History Unknown: Yes Family Medical History: Hypertension, Myocardial Infarction ([place]) Additional Family Medical History / Comment(s): Mother of a [place] at the age of 55yrs. Brother(s) Family Medical History: Cancer, COPD Additional Family Medical History / Comment(s): Leukemia General Exam Limitations: no limitations General appearance: alert, in no apparent distress Head exam: Present: atraumatic, normocephalic, normal inspection Eye exam: Present: normal appearance, PERRL, EOMI. Absent: scleral icterus, conjunctival injection, periorbital swelling ENT exam: Present: normal exam, mucous membranes moist Neck exam: Present: normal inspection. Absent: tenderness, meningismus, lymphadenopathy Respiratory exam: Present: normal lung sounds bilaterally. Absent: respiratory distress, wheezes, rales, rhonchi, stridor Cardiovascular Exam: Present: regular rate, normal rhythm, normal heart sounds. Absent: systolic murmur, diastolic murmur, rubs, gallop, clicks GI/Abdominal exam: Present: soft, normal bowel sounds. Absent: distended, tenderness, guarding, rebound, rigid Extremities exam: Present: normal inspection, full ROM, normal capillary refill. Absent: tenderness, pedal edema, joint swelling, calf tenderness Back exam: Present: normal inspection Neurological exam: Present: alert, oriented X3, CN II-XII intact Psychiatric exam: Present: normal affect, normal mood Skin exam: Present: warm, dry, intact, normal color. Absent: rash Course Vital Signs 03/11/23 03/11/23 10:46 12:14 Temperature 98.1 F 97.9 F Pulse Rate 109 H 82 Respiratory 20 14 Rate Blood Pressure 167/97 132/82 O2 Sat by Pulse 99 99 Oximetry Medical Decision Making - Medical Decision Making Was pt. sent in by a medical professional or institution (, PA, TIP BANDING MACHINE OPERATOR, urgent care, hospital, or snf...) When possible be specific @ -[No] Did you speak to anyone other than the patient for history (EMS, parent, family, police, friend...)? What history was obtained from this source @ -[No] Did you review nursing and triage notes (agree or disagree)? Why? @ -[I reviewed and agree with nursing and triage notes] Were old charts reviewed (outside hosp., previous admission, EMS record, old EKG, old radiological studies, urgent care reports/EKG's, snf records)? Report findings @ -[No old charts were reviewed] Differential Diagnosis (chest pain, altered mental status, abdominal pain women, abdominal pain men, vaginal bleeding, weakness, fever, dyspnea, syncope, h eadache, dizziness, GI bleed, back pain, seizure, CVA, palpatations, mental health, musculoskeletal)? @ -[Differential Headache: Migraine, tension, cluster, carbon monoxide, central venous thrombosis, pension karma temporal arteritis, acute closure glaucoma, intercranial hemorrhage, mastoiditis, sinusitis, head injury, this is not meant to be an all-inclusive list.] EKG interpreted by me (3pts min.). @ -[None] X-rays interpreted by me (1pt min.). @ -[None done] CT interpreted by me (1pt min.). @ -[None done] U/S interpreted by me (1pt. min.). @ -[None done] What testing was considered but not performed or refused? (CT, X-rays, U/S, labs)? Why? @ -[None] What meds were considered but not given or refused? Why? @ -[None] Did you discuss the management of the patient with other professionals (professionals i.e. , PA, TIP BANDING MACHINE OPERATOR, lab, RT, psych nurse, administrator social welfare, learning and development director, teacher, state highway police officer, test case developer)? Give summary @ -[No] Was smoking cessation discussed for >3mins.? @ -[No] Was critical care preformed (if so, how long)? @ -[No] Were there social determinants of health that impacted care today? How? (Homelessness, low income, unemployed, alcoholism, drug addiction, transportation, low edu. Level, literacy, decrease access to med. care, long term, rehab)? @ -[No] Was there de-escalation of care discussed even if they declined (Discuss DNR or withdrawal of care, Hospice)? DNR status @ -[No] What co-morbidities impacted this encounter? (DM, HTN, Smoking, COPD, CAD, Cancer, CVA, ARF, Chemo, Hep., AIDS, mental health diagnosis, sleep apnea, morbid obesity)? @ -[None] Was patient admitted / discharged? Hospital course, mention meds given and route, prescriptions, significant lab abnormalities, going to OR and other pertinent info. @ -[Discharge. Patient presented to emergency department with chief complaint of migraine 2 days which is comparable to previous migraines. Patient has no neurological deficits at this time. Patient administered diphenhydramine and Reglan. Patient discharged in stable condition. Case discussed with Dr. Almeida] Undiagnosed new problem with uncertain prognosis? @ -[No] Drug Therapy requiring intensive monitoring for toxicity (Heparin, Nitro, Insulin, Cardizem)? @ -[No] Were any procedures done? @ -[No] Diagnosis/symptom? @ -[Migraine] Acute, or Chronic, or Acute on Chronic? @ -[Chronic] Uncomplicated (without systemic symptoms) or Complicated (systemic symptoms)? @ -[Uncomplicated] Side effects of treatment? @ -[No] Exacerbation, Progression, or Severe Exacerbation? @ -[No] Poses a threat to life or bodily function? How? (Chest pain, [place], [place], pneumonia, PE, COPD, DKA, ARF, appy, cholecystitis, CVA, Diverticulitis, Homicidal, Suicidal, threat to staff... and all critical care pts) @ -[No] Disposition Clinical Impression: Migraine Disposition: HOME SELF-CARE Condition: Stable Instructions (If sedation given, give patient instructions): Acute Headache (ED) Additional Instructions: Please return to the Emergency Department if symptoms worsen or any other concerns. Is patient prescribed a controlled substance at d/c from ED?: No Referrals: None,Stated [Primary Care Provider] - 1-2 days Time of Disposition: 11:30
[2023-03-11 12:16] VITALS: BP 132/82; PULSE 82; RESP 14; TEMP 97.9
== END 2023-03-11 12:16 | disposition home or self-care (01) ==
LOC: EC 10:35
DX: G43.909 Migraine, unspecified, not intractable, without status migrainosus (principal); I25.10 Atherosclerotic heart disease of native coronary artery without angina pectoris; J44.9 Chronic obstructive pulmonary disease, unspecified; I10 Essential (primary) hypertension; E78.5 Hyperlipidemia, unspecified; Z86.718 Personal history of other venous thrombosis and embolism; M19.90 Unspecified osteoarthritis, unspecified site; Z87.891 Personal history of nicotine dependence; Z88.6 Allergy status to analgesic agent; Z88.8 Allergy status to other drugs, medicaments and biological substances; Z79.899 Other long term (current) drug therapy
CPT/HCPCS: 99283; 96372 ×2; J1200; J2765

== ENCOUNTER 2023-04-23 04:31 | Observation (INO) | payer MEDICARE, OTHER ==
[2023-04-23] MEDS ORDERED: FUROSEMIDE 10 MG/ML 4 ML VIAL IV STA (04:41)
[2023-04-23] MEDS ORDERED: MORPHINE SULFATE 4 MG/ML SYRINGE IVP STA (04:42)
[2023-04-23 05:49] LABS: ALT 23 U/L (4-49); AST 28 U/L (17-59); African American GFR (CKD) >90 (>60 ml/min/1.73 sqM); Alkaline Phosphatase 69 U/L (38-126); Anion Gap 10 mmol/L; Blood Urea Nitrogen 2 mg/dL (9-20); Carbon Dioxide 23 mmol/L (22-30); Chloride 106 mmol/L (98-107); Glucose 107 mg/dL (74-99); Lipase 25 U/L (23-300); Magnesium 1.7 mg/dL (1.6-2.3); Non-African American GFR(CKD) >90 (>60 ml/min/1.73 sqM); Potassium 3.8 mmol/L (3.5-5.1); Sodium 139 mmol/L (137-145); Total Bilirubin 0.2 mg/dL (0.2-1.3); Total Protein 6.7 g/dL (6.3-8.2)
[2023-04-23 05:59] LABS: INR 0.9 (<1.2); Partial Thromboplastin Time 23.9 sec (22.0-30.0); Prothrombin Time 9.6 sec (9.0-12.0)
[2023-04-23 06:05] LABS: Basophils % (A) 1 %; Eosinophils # (A) 0.1 k/uL (0-0.7); Eosinophils % (A) 4 %; HCT 38.7 % (39.0-53.0); HGB 12.5 gm/dL (13.0-17.5); Lymphocytes # (A) 0.9 k/uL (1.0-4.8); Lymphocytes % (A) 38 %; MCH 29.9 pg (25.0-35.0); MCHC 32.4 g/dL (31.0-37.0); MCV 92.4 fL (80.0-100.0); Mean Platelet Volume 6.5; Monocytes # (A) 0.3 k/uL (0-1.0); Monocytes % (A) 11 %; Neutrophils % (A) 43 %; Platelet Count 288 k/uL (150-450); RBC 4.19 m/uL (4.30-5.90); RDW 14.1 % (11.5-15.5); WBC 2.3 k/uL (3.8-10.6)
--- NOTE | 2023-04-23 06:06 | ED ---
General Adult HPI - General Chief complaint: Chest Pain Stated complaint: Chest Pain Time Seen by Provider: 04/23/23 04:34 Source: patient, EMS Mode of arrival: EMS Limitations: no limitations - History of Present Illness Initial comments: This is a 67-year-old male with a past medical history including hypertension, diabetes presents emergency department via EMS for chest pain. The patient stated that he had left-sided chest pain that had pain to the left jaw and left arm that was present since 2 PM earlier in the day. The patient also noted increasing swelling in the bilateral lower extremities as well as the bilateral hands to the been present and worsening over the last 3 days. The patient is well-known to the emergency department and has been known to be medically noncompliant. The patient on my evaluation did state that he had been taking his medications as previously prescribed. The patient denied any lightheadedness or dizziness. The patient was however resting in bed comfortably. - Related Data Home Medications Medication Instructions Recorded Confirmed Morphine Sulfate ER [Ms Contin] 30 mg PO Q8H 10/10/17 02/26/22 tiZANidine [Zanaflex] 4 mg PO Q8H PRN 02/26/18 02/26/22 oxyCODONE-APAP 10-325MG [Percocet 1 tab PO Q8H 01/02/20 02/26/22 10-325 mg] Nitroglycerin Sl Tabs [Nitrostat] 0.4 mg SL Q5M PRN 07/13/21 02/26/22 Pregabalin [Lyrica] 100 mg PO BID 09/11/21 02/26/22 SUMAtriptan succinate [Imitrex] 25 mg PO DAILY PRN 01/04/22 02/26/22 Previous Rx's Medication Instructions Recorded Furosemide [Lasix] 20 mg PO DAILY 30 Days #30 tab 01/06/22 Pantoprazole Sodium [Protonix] 40 mg PO AC-BRKFST #14 tab 01/16/22 Ondansetron Odt [Zofran ODT] 4 mg PO Q8HR PRN #10 tab 02/18/22 Clopidogrel [Plavix] 75 mg PO DAILY 30 Days #30 tab 02/26/22 Fenofibrate 50 mg PO DAILY 30 Days #30 capsule 02/26/22 Metoprolol Succinate [Toprol XL] 150 mg PO DAILY 30 Days #45 tab 02/26/22 amLODIPine [Norvasc] 5 mg PO BID 30 Days #60 tab 02/26/22 hydrALAZINE HCL [Apresoline] 50 mg PO TID-W/MEALS 30 Days #90 02/26/22 tab lisinopriL [Zestril] 40 mg PO DAILY 30 Days #30 tab 02/26/22 Furosemide [Lasix] 40 mg PO BID #10 tablet 05/22/22 metOLazone [Zaroxolyn] 5 mg PO DAILY #5 tablet 05/27/22 Furosemide [Lasix] 40 mg PO BID #10 tablet 06/23/22 Allergies Allergy/AdvReac Type Severity Reaction Status Date / Time ibuprofen [From Motrin] Allergy Rash/Hives Verified 03/11/23 10:49 ketorolac tromethamine Allergy Rash/Hives Verified 03/11/23 10:49 [From Toradol] Review of Systems ROS Statement: Those systems with pertinent positive or pertinent negative responses have been documented in the HPI. ROS Other: All systems not noted in ROS Statement are negative. Past Medical History Past Medical History: Coronary Artery Disease (CAD), Chest Pain / Angina, COPD, Deep Vein Thrombosis (DVT), GERD/Reflux, Hyperlipidemia, Hypertension, Osteoarthritis (OA), Thyroid Disorder Additional Past Medical History / Comment(s): Occasional palpitations, gastritis, small hiatal hernia, diverticular dx, pt states years ago he had PUD, chronic low back pain, chronic pain syndrome, migraines, DVT L arm, numbness/tingling bilateral lower legs, bilateral past R hand fracture, arthritis multiple joints, hyperthyroid, sinus problems. History of Any Multi-Drug Resistant Organisms: None Reported Past Surgical History: Back Surgery, Cholecystectomy, Heart Catheterization With Stent, Orthopedic Surgery Additional Past Surgical History / Comment(s): EGDs/colonoscopies, multiple low back surgeries, bilateral arm and bilateral thigh surgeries for brown recluse spider bites with infection, morphine pain pump insertion and removal due to infection, PCI with stents, L rotator cuff repair, L knee arthroscopy, cervical fusion/cage, R cataract removal. 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 He lived to be 82 yrs old. Mother History Unknown: Yes Family Medical History: Hypertension, Myocardial Infarction ([place]) Additional Family Medical History / Comment(s): Mother of a [place] at the age of 55yrs. Brother(s) Family Medical History: Cancer, COPD Additional Family Medical History / Comment(s): Leukemia General Exam Limitations: no limitations General appearance: alert, in no apparent distress Head exam: Present: atraumatic, normocephalic, normal inspection Eye exam: Present: normal appearance, PERRL Pupils: Present: normal accommodation ENT exam: Present: normal exam, normal oropharynx, mucous membranes moist Neck exam: Present: normal inspection, full ROM Respiratory exam: Present: normal lung sounds bilaterally Cardiovascular Exam: Present: normal rhythm, tachycardia GI/Abdominal exam: Present: soft, normal bowel sounds Extremities exam: Present: normal inspection, full ROM, pedal edema (Edema noted in all extremities) Back exam: Present: normal inspection, full ROM Neurological exam: Present: alert, oriented X3, CN II-XII intact Psychiatric exam: Present: normal affect, normal mood Skin exam: Present: warm, dry Course Vital Signs 04/23/23 04/23/23 04:35 06:02 Temperature 98.7 F Pulse Rate 128 H 112 H Respiratory 20 22 Rate Blood Pressure 184/132 168/132 O2 Sat by Pulse 98 96 Oximetry EKG Findings - EKG Comments: EKG Findings:: An EKG was obtained and was interpreted by myself showing a rate of 126, DE interval 161, QRS duration of 101 and QTC of 389. This EKG showed a sinus tachycardia with no ST segment elevation or depression noted. Medical Decision Making - Medical Decision Making Was pt. sent in by a medical professional or institution (, FAITH, CRM SPECIALIST, urgent care, hospital, or [place] health care facility...) When possible be specific @ -No Did you speak to anyone other than the patient for history (EMS, parent, family, police, friend...)? What history was obtained from this source @ -No Did you review nursing and triage notes (agree or disagree)? Why? @ -I reviewed and agree with nursing and triage notes Were old charts reviewed (outside hosp., previous admission, EMS record, old EKG, old radiological studies, urgent care reports/EKG's, [place] health care facility records)? Report findings @ -No old charts were reviewed Differential Diagnosis (chest pain, altered mental status, abdominal pain women, abdominal pain men, vaginal bleeding, weakness, fever, dyspnea, syncope, headache, dizziness, GI bleed, back pain, seizure, CVA, palpatations, mental health)? @ -ACS, congestive heart failure exacerbation, pneumonia EKG interpreted by me (3pts min.). @ -As above X-rays interpreted by me (1pt min.). @ -Chest x-ray was obtained and was interpreted by myself showing no acute process. CT interpreted by me (1pt min.). @ -None done U/S interpreted by me (1pt. min.). @ -None done What testing was considered but not performed or refused? (CT, X-rays, U/S, labs)? Why? @ -None What meds were considered but not given or refused? Why? @ -None Did you discuss the management of the patient with other professionals (professionals i.e. , PA, CRM SPECIALIST, lab, RT, psych nurse, director social service, cigar brander, teacher, bomb squad officer, case assistant)? Give summary @ -Yes, admitting team was contacted guarding patient admission. Was smoking cessation discussed for >3mins.? @ -No Was critical care preformed (if so, how long)? @ -No Were there social determinants of health that impacted care today? How? (Homelessness, low income, unemployed, alcoholism, drug addiction, transportation, low edu. Level, literacy, decrease access to med. care, penitentiary, rehab)? @ -No Was there de-escalation of care discussed even if they declined (Discuss DNR or withdrawal of care, Hospice)? DNR status @ -No What co-morbidities impacted this encounter? (DM, HTN, Smoking, COPD, CAD, Cancer, CVA, ARF, Chemo, Hep., AIDS, mental health diagnosis, sleep apnea, morbid obesity)? @ -Hypertension, history of medical noncompliance Was patient admitted / discharged? Hospital course, mention meds given and route, prescriptions, significant lab abnormalities, going to OR and other pertinent info. @ -The patient was seen and evaluated in the [facility] department. Physical exam, the patient was resting in bed without any acute distress. Vital signs adm ission did show tachycardia and hypertension. Due to the nature the patient's complaints, laboratory workup and chest x-ray and EKG were obtained. All workup was negative. The patient did continue to remain stable and was given a dose of Lasix as well as morphine for pain. D-dimer was mildly elevated however this was consistent with his previous elevations. Due to the patient's symptoms of chest pain in the setting of previous hernia extent and hypertension, the patient will be placed in observation to be evaluated by cardiology. The patient was agreeable to this plan and all his questions were answered appropriate. The patient was placed observation in stable condition. Undiagnosed new problem with uncertain prognosis? @ -No Drug Therapy requiring intensive monitoring for toxicity (Heparin, Nitro, Insulin, Cardizem)? @ -No Were any procedures done? @ -No Diagnosis/symptom? @ -Chest pain, rule out ACS, possible new onset CHF Acute, or Chronic, or Acute on Chronic? @ -Acute Uncomplicated (without systemic symptoms) or Complicated (systemic symptoms)? @ -Complicated Side effects of treatment? @ -No Exacerbation, Progression, or Severe Exacerbation? @ -No Poses a threat to life or bodily function? How? (Chest pain, [place], [place], pneumonia, PE, COPD, DKA, ARF, appy, cholecystitis, CVA, Diverticulitis, Homicidal, Suicidal, threat to staff... and all critical care pts) @ -Yes, continued ACS can lead to permanent damage and possible . - Lab Data Result diagrams: 04/23/23 05:04 04/23/23 05:04 Lab Results 04/23/23 04/23/23 04/23/23 Range/Units 05:04 05:04 05:04 WBC 2.3 L (3.8-10.6) k/uL RBC 4.19 L (4.30-5.90) m/uL Hgb 12.5 L (13.0-17.5) gm/dL Hct 38.7 L (39.0-53.0) % MCV 92.4 (80.0-100.0) fL MCH 29.9 (25.0-35.0) pg MCHC 32.4 (31.0-37.0) g/dL RDW 14.1 (11.5-15.5) % Plt Count 288 (150-450) k/uL MPV 6.5 Neutrophils % 43 % Lymphocytes % 38 % Monocytes % 11 % Eosinophils % 4 % Basophils % 1 % Neutrophils # 1.0 L (1.3-7.7) k/uL Lymphocytes # 0.9 L (1.0-4.8) k/uL Monocytes # 0.3 (0-1.0) k/uL Eosinophils # 0.1 (0-0.7) k/uL Basophils # 0.0 (0-0.2) k/uL PT 9.6 (9.0-12.0) sec INR 0.9 (<1.2) APTT 23.9 (22.0-30.0) sec D-Dimer 0.79 H (<0.60) mg/L FEU Sodium 139 (137-145) mmol/L Potassium 3.8 (3.5-5.1) mmol/L Chloride 106 (98-107) mmol/L Carbon Dioxide 23 (22-30) mmol/L Anion Gap 10 mmol/L BUN 2 L (9-20) mg/dL Creatinine 0.60 L (0.66-1.25) mg/dL Est GFR (CKD-EPI)AfAm >90 (>60 ml/min/1.73 sqM) Est GFR (CKD-EPI)NonAf >90 (>60 ml/min/1.73 sqM) Glucose 107 H (74-99) mg/dL Calcium 9.0 (8.4-10.2) mg/dL Magnesium 1.7 (1.6-2.3) mg/dL Total Bilirubin 0.2 (0.2-1.3) mg/dL AST 28 (17-59) U/L ALT 23 (4-49) U/L Alkaline Phosphatase 69 (38-126) U/L Troponin I (0.000-0.034) ng/mL Total Protein 6.7 (6.3-8.2) g/dL Albumin 4.0 (3.5-5.0) g/dL Lipase 25 (23-300) U/L 04/23/23 Range/Units 05:04 WBC (3.8-10.6) k/uL RBC (4.30-5.90) m/uL Hgb (13.0-17.5) gm/dL Hct (39.0-53.0) % MCV (80.0-100.0) fL MCH (25.0-35.0) pg MCHC (31.0-37.0) g/dL RDW (11.5-15.5) % Plt Count (150-450) k/uL MPV Neutrophils % % Lymphocytes % % Monocytes % % Eosinophils % % Basophils % % Neutrophils # (1.3-7.7) k/uL Lymphocytes # (1.0-4.8) k/uL Monocytes # (0-1.0) k/uL Eosinophils # (0-0.7) k/uL Basophils # (0-0.2) k/uL PT (9.0-12.0) sec INR (<1.2) APTT (22.0-30.0) sec D-Dimer (<0.60) mg/L FEU Sodium (137-145) mmol/L Potassium (3.5-5.1) mmol/L Chloride (98-107) mmol/L Carbon Dioxide (22-30) mmol/L Anion Gap mmol/L BUN (9-20) mg/dL Creatinine (0.66-1.25) mg/dL Est GFR (CKD-EPI)AfAm (>60 ml/min/1.73 sqM) Est GFR (CKD-EPI)NonAf (>60 ml/min/1.73 sqM) Glucose (74-99) mg/dL Calcium (8.4-10.2) mg/dL Magnesium (1.6-2.3) mg/dL Total Bilirubin (0.2-1.3) mg/dL AST (17-59) U/L ALT (4-49) U/L Alkaline Phosphatase (38-126) U/L Troponin I <0.012 (0.000-0.034) ng/mL Total Protein (6.3-8.2) g/dL Albumin (3.5-5.0) g/dL Lipase (23-300) U/L Disposition Clinical Impression: Chest pain, CHF (congestive heart failure) Disposition: ADMITTED IP TO THIS HOSP Condition: Stable Is patient prescribed a controlled substance at d/c from ED?: No Referrals: None,Stated [Primary Care Provider] - 1-2 days Time of Disposition: 06:20 Decision to Admit Reason: Admit from EC Decision Date: 04/23/23 Decision Time: 06:20
--- NOTE | 2023-04-23 06:14 | XR ---
EXAM: XR Chest, 2 Views CLINICAL HISTORY: ITS.REASON XR Reason: CP TECHNIQUE: Frontal and lateral views of the chest. COMPARISON: 2 views of the chest January 12, 2023 IMPRESSION: 1. No acute cardiopulmonary abnormality.
[2023-04-23] MEDS ORDERED: NALOXONE 0.4 MG/ML 1 ML VIAL IV PRN (06:29)
[2023-04-23] MEDS ORDERED: LABETALOL 5 MG/ML VIAL MDV IVP STA (06:38)
--- NOTE | 2023-04-23 10:14 | P.HPIM ---
History of Present Illness This is a pleasant 67 years old male with multiple medical problems including Coronary Artery Disease status post stent, COPD, Deep Vein Thrombosis (DVT), GERD/Reflux, Hyperlipidemia, Hypertension, Osteoarthritis hypothyroidism, PUD, chronic low back pain, c numbness/tingling bilateral lower legs, bilateral past R hand fracture, arthritis multiple joints, hyperthyroid, sinus problems. 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 Evans and [place], he says he does not have PCP here in [place] and he follow-up with a pain doctor at [place] as well. He has chronic back pain and he had back surgery and chronic left-sided weakness as he states. He comes today because of that side chest pain radiating to the left arm and left jaw since yesterday about 8/10 in severity, nonspecific with no relieving or precipitating factors, no exertional dyspnea and he has bilateral leg swelling. He denies any GI urinary or neurological symptoms other than above. He denies smoking alcohol all orifices drugs. Patient has stable vitals, blood pressure is slightly elevated 170/113 Wbc are 2.3, hemoglobin 12.5. INR 0.9 BMP and liver enzymes are unremarkable EKG showing sinus tachycardia at [address]-T changes Chest x-ray: No acute process. Patient was given labetalol 1 maps was checked , he is on Percocet 10 mg on 120 tablets for 30 day felt on 04/16/2023. Also was given 666 day of oral Dilaudid on 04/10/23 Review of Systems Review of systems CONSTITUTIONAL: No fever, no malaise, no fatigue. HEENT: No recent visual problems or hearing problems. Denied any sore throat. CARDIOVASCULAR: No orthopnea, PND, no palpitations, no syncope. PULMONARY: No shortness of breath, no cough, no hemoptysis. GASTROINTESTINAL: No diarrhea, no nausea, no vomiting, no abdominal pain. Normoactive bowel sounds. NEUROLOGICAL: No headaches, no weakness, no numbness. HEMATOLOGICAL: Denies any bleeding or petechiae. GENITOURINARY: Denies any burning micturition, frequency, or urgency. MUSCULOSKELETAL/RHEUMATOLOGICAL: Denies any joint pain, swelling, or any muscle pain. ENDOCRINE: Denies any polyuria or polydipsia. Past Medical History Past Medical History: Coronary Artery Disease (CAD), Chest Pain / Angina, COPD, Deep Vein Thrombosis (DVT), GERD/Reflux, Hyperlipidemia, Hypertension, Osteoarthritis (OA), Thyroid Disorder Additional Past Medical History / Comment(s): Occasional palpitations, gastritis, small hiatal hernia, diverticular dx, pt states years ago he had PUD, chronic low back pain, chronic pain syndrome, migraines, DVT L arm, numbness/tingling bilateral lower legs, bilateral past R hand fracture, arthritis multiple joints, hyperthyroid, sinus problems. History of Any Multi-Drug Resistant Organisms: None Reported Past Surgical History: Back Surgery, Cholecystectomy, Heart Catheterization With Stent, Orthopedic Surgery Additional Past Surgical History / Comment(s): EGDs/colonoscopies, multiple low back surgeries, bilateral arm and bilateral thigh surgeries for brown recluse spider bites with infection, morphine pain pump insertion and removal due to infection, PCI with stents, L rotator cuff repair, L knee arthroscopy, cervical fusion/cage, R cataract removal. 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 He lived to be 82 yrs old. Mother History Unknown: Yes Family Medical History: Hypertension, Myocardial Infarction ([place]) Additional Family Medical History / Comment(s): Mother of a [place] at the age of 55yrs. Brother(s) Family Medical History: Cancer, COPD Additional Family Medical History / Comment(s): Leukemia Medications and Allergies Home Medications Medication Instructions Recorded Confirmed Type tiZANidine [Zanaflex] 4 mg PO HS 02/26/18 04/23/23 History oxyCODONE-APAP 10-325MG [Percocet 1 tab PO Q6H 01/02/20 04/23/23 History 10-325 mg] Aspirin EC [Ecotrin Low Dose] 81 mg PO DAILY 04/23/23 04/23/23 History Escitalopram [Lexapro] 10 mg PO DAILY 04/23/23 04/23/23 History Folic Acid 1 mg PO DAILY 04/23/23 04/23/23 History Isosorbide Mononitrate ER [Imdur] 30 mg PO DAILY 04/23/23 04/23/23 History Pantoprazole Sodium [Protonix] 40 mg PO DAILY 04/23/23 04/23/23 History amLODIPine [Norvasc] 5 mg PO DAILY 04/23/23 04/23/23 History Allergies Allergy/AdvReac Type Severity Reaction Status Date / Time ibuprofen [From Motrin] Allergy Rash/Hives Verified 04/23/23 07:17 ketorolac tromethamine Allergy Rash/Hives Verified 04/23/23 07:17 [From Toradol] Physical Exam Vitals: Vital Signs Temp Pulse Resp BP Pulse Ox 04/23/23 08:45 98.2 F 100 20 174/113 100 04/23/23 07:15 93 20 173/119 100 04/23/23 06:46 104 H 20 144/98 96 04/23/23 06:02 112 H 22 168/132 96 04/23/23 04:35 98.7 F 128 H 20 184/132 98 Intake and Output 04/22/23 04/23/23 04/23/23 22:59 06:59 14:59 Other: Weight 79.379 kg GENERAL: The patient is alert and oriented x3, not in any acute distress. Well developed, well nourished. HEENT: Pupils are round and equally reacting to light. EOMI. No scleral icterus. No conjunctival pallor. Normocephalic, atraumatic. No pharyngeal erythema. No thyromegaly. CARDIOVASCULAR: S1 and S2 present. No murmurs, rubs, or gallops. PULMONARY: Chest is clear to auscultation, no wheezing or crackles. ABDOMEN: Soft, nontender, nondistended, normoactive bowel sounds. No palpable organomegaly. MUSCULOSKELETAL: No joint swelling or deformity. -EXTREMITIES: No cyanosis, clubbing, , bilateral pitting leg edema. NEUROLOGICAL: Gross neurological examination did not reveal any focal deficits. SKIN: No rashes. no petechiae. Results CBC & Chem 7: 04/23/23 05:04 04/23/23 05:04 Labs: Abnormal Lab Results - Last 24 Hours (Table) 04/23/23 04/23/23 04/23/23 Range/Units 05:04 05:04 05:04 WBC 2.3 L (3.8-10.6) k/uL RBC 4.19 L (4.30-5.90) m/uL Hgb 12.5 L (13.0-17.5) gm/dL Hct 38.7 L (39.0-53.0) % Neutrophils # 1.0 L (1.3-7.7) k/uL Lymphocytes # 0.9 L (1.0-4.8) k/uL D-Dimer 0.79 H (<0.60) mg/L FEU BUN 2 L (9-20) mg/dL Creatinine 0.60 L (0.66-1.25) mg/dL Glucose 107 H (74-99) mg/dL Assessment and Plan Assessment: Chest pain rule out cardiac causes bilateral leg swelling most likely related to CHF, unknown ejection fraction History of coronary artery disease status post stenting Chronic back pain with chronic left-sided weakness as patient states. Patient along with pain clinic Hypertension, uncontrolled on admission Hyperlipidemia Diabetes mellitus History of GERD Hypothyroidism History of osteoarthritis Plan: Serial troponin Cardiology consult Patient received Lasix 1 in year Continue with his Percocet for pain management Check leg ultrasound Patient states he takes aspirin and Plavix at home, are going to verify with pharmacy, discussed with staff and bedside nurse. Labs and medication were reviewed.. Continue same treatment. Continue with symptomatic treatment. Resume home medication. Monitor labs and vitals. DVT and GI prophylaxis. Further recommendations as per clinical course of the patient DVT prophylaxis: Subcutaneous heparin GI Prophylaxis: Ppi Prognosis is guarded
[2023-04-23] MEDS: HEPARIN SODIUM,PORCINE/PF 5,000 UNIT/0.5 ML SYRINGE SQ SCH ×2 (10:39→20:53)
[2023-04-23] MEDS: oxyCODONE-APAP 10-325MG 1 EACH TAB PO SCH ×3 (10:40→21:24)
[2023-04-23] MEDS: ASPIRIN 81 MG PO SCH (10:40)
--- NOTE | 2023-04-23 11:52 | P.CRDCN ---
History of Present Illness History of present illness: HISTORY OF PRESENT ILLNESS: This is a 67-year-old male with a past medical history significant for coronary artery disease with previous stenting, hyperlipidemia, hypertension, chronic pain, former nicotine dependence, and medication noncompliance of the past. Patient previously followed in the office with Dr. Go but now sees a fluid designer at [facility]. We have been asked to see the patient in consultation for chest pain. Patient examined at the bedside. Patient presented to the hospital with a chief complaint of chest pain. The patient states he has been having chest pain for the past 2 days. He states the pain comes and goes. He states it is nonexertional and tenderness occur when he is watching TV. He reports the pain will go into his jaw on his left arm. He states the pain lasts for couple minutes and then it goes away on its own. He states he did not take any nitro at home because he doesn't have any and in the past this has given him a bad headache. The patient states that he has not seen his fluid designer at [place] in a long time. He states that he has not had any recent testing or procedures completed by his primary fluid designer either. Patient was found to have extreme elevated blood pressure on admission with systolics in the 180s and diastolics in the 130s. The patient states he checks his blood pressure at home and it tends to run on the higher side as well. He reports lower extremity edema for the past 2 days as well. * EKG reveals sinus tachycardia with no signs of acute ischemia * Chest xray negative for acute process * Laboratory data: WBC 2.3. Hemoglobin 12.5. Platelet count 288. D-dimer 0.79. Sodium 139. Potassium 3.8. BUN 2. Creatinine 0.60. Magnesium 1.7. Troponin negative 1. ProBNP 66. * Current home cardiac medications include Imdur 30 mg daily, Norvasc 5 mg daily, and aspirin 81 mg daily * Most recent echocardiogram obtained in December 2021 revealed ejection fraction 60-65%, trace aortic regurgitation, bicuspid aortic valve, mild aortic stenosis, mild tricuspid regurgitation * Patient underwent Lexiscan stress test in April 2021 which was negative for ischemia * Cardiac catheterization history: April 2019 revealing widely patent LAD at the site of stenting no more than 30-40% diagonal narrowing at the bifurcation stenting site, no significant disease in RCA or circumflex, normal filling pressures, no gradient. REVIEW OF SYSTEMS: At the time of my exam: CONSTITUTIONAL: Denies fever or chills. HEENT: Denies blurred vision, vision changes, or eye pain. Denies hemoptysis CARDIOVASCULAR: Denies chest pain. Denies orthopnea. Denies PND. Denies palpitations RESPIRATORY: Denies shortness of breath. GASTROINTESTINAL: Denies abdominal pain. Denies nausea or vomiting. HEMATOLOGIC: Denies bleeding disorders. GENITOURINARY: Denies any blood in urine. SKIN: Denies pruitis. Denies rash. PHYSICAL EXAM: VITAL SIGNS: Reviewed. GENERAL: Well-developed in no acute distress. HEENT: Head is normocephalic. Pupils are equal, round. Sclerae anicteric. Mucous membranes of the mouth are moist. Neck supple. No JVD or thyromegaly LUNGS: Respirations even and unlabored. Lungs essentially clear to auscultation bilaterally. HEART: Regular rate and rhythm. S1 and S2 heard. ABDOMEN: Soft. Nondistended. Nontender. EXTREMITIES: Normal range of motion. No clubbing or cyanosis. Peripheral pulses intact. Trace lower extremity edema NEUROLOGIC: Awake and alert. Oriented x 3. ASSESSMENT: Chest pain, troponins negative 1 Hypertension, uncontrolled Lower extremity edema, may be secondary to venous insufficiency, BNP normal and chest x-ray negative for fluid overload Coronary artery disease with previous stenting of the LAD Bicuspid aortic valve Hyperlipidemia Chronic pain History of medication noncompliance Former nicotine dependence PLAN: Trend troponins Obtain 2-D echo to assess cardiac structure and function Resume home cardiac medications Continue amlodipine 5 mg daily Patient has been started on metoprolol per primary medicine Add Lipitor 20 mg at night. Check lipid panel Discontinue IV lasix Add HCTZ 25mg daily and Losartan 50mg daily Further recommendations pending patient's course Nurse practitioner note has been reviewed by physician. Signing provider agrees with the documented findings, assessment, and plan of care. Past Medical History Past Medical History: Coronary Artery Disease (CAD), Chest Pain / Angina, COPD, Deep Vein Thrombosis (DVT), GERD/Reflux, Hyperlipidemia, Hypertension, Osteoarthritis (OA), Thyroid Disorder Additional Past Medical History / Comment(s): Occasional palpitations, gastritis, small hiatal hernia, diverticular dx, pt states years ago he had PUD, chronic low back pain, chronic pain syndrome, migraines, DVT L arm, numbness/tingling bilateral lower legs, bilateral past R hand fracture, arthritis multiple joints, hyperthyroid, sinus problems. History of Any Multi-Drug Resistant Organisms: None Reported Past Surgical History: Back Surgery, Cholecystectomy, Heart Catheterization With Stent, Orthopedic Surgery Additional Past Surgical History / Comment(s): EGDs/colonoscopies, multiple low back surgeries, bilateral arm and bilateral thigh surgeries for brown recluse spider bites with infection, morphine pain pump insertion and removal due to infection, PCI with stents, L rotator cuff repair, L knee arthroscopy, cervical fusion/cage, R cataract removal. 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 He lived to be 82 yrs old. Mother History Unknown: Yes Family Medical History: Hypertension, Myocardial Infarction (MD) Additional Family Medical History / Comment(s): Mother of a MD at the age of 55yrs. Brother(s) Family Medical History: Cancer, COPD Additional Family Medical History / Comment(s): Leukemia Medications and Allergies Home Medications Medication Instructions Recorded Confirmed Type tiZANidine [Zanaflex] 4 mg PO HS 02/26/18 04/23/23 History oxyCODONE-APAP 10-325MG [Percocet 1 tab PO Q6H 01/02/20 04/23/23 History 10-325 mg] Aspirin EC [Ecotrin Low Dose] 81 mg PO DAILY 04/23/23 04/23/23 History Escitalopram [Lexapro] 10 mg PO DAILY 04/23/23 04/23/23 History Folic Acid 1 mg PO DAILY 04/23/23 04/23/23 History Isosorbide Mononitrate ER [Imdur] 30 mg PO DAILY 04/23/23 04/23/23 History Pantoprazole Sodium [Protonix] 40 mg PO DAILY 04/23/23 04/23/23 History amLODIPine [Norvasc] 5 mg PO DAILY 04/23/23 04/23/23 History Allergies Allergy/AdvReac Type Severity Reaction Status Date / Time ibuprofen [From Motrin] Allergy Rash/Hives Verified 04/23/23 07:17 ketorolac tromethamine Allergy Rash/Hives Verified 04/23/23 07:17 [From Toradol] Physical Exam Vitals: Vital Signs Temp Pulse Resp BP Pulse Ox 04/23/23 10:46 98.4 F 97 18 179/94 100 04/23/23 08:45 98.2 F 100 20 174/113 100 04/23/23 07:15 93 20 173/119 100 04/23/23 06:46 104 H 20 144/98 96 04/23/23 06:02 112 H 22 168/132 96 04/23/23 04:35 98.7 F 128 H 20 184/132 98 Intake and Output 04/22/23 04/23/23 04/23/23 22:59 06:59 14:59 Other: Weight 79.379 kg Results 04/23/23 05:04 04/23/23 05:04 Cardiac Enzymes 04/23/23 04/23/23 Range/Units 05:04 05:04 AST 28 (17-59) U/L Troponin I <0.012 (0.000-0.034) ng/mL Coagulation 04/23/23 Range/Units 05:04 PT 9.6 (9.0-12.0) sec APTT 23.9 (22.0-30.0) sec CBC 04/23/23 Range/Units 05:04 WBC 2.3 L (3.8-10.6) k/uL RBC 4.19 L (4.30-5.90) m/uL Hgb 12.5 L (13.0-17.5) gm/dL Hct 38.7 L (39.0-53.0) % Plt Count 288 (150-450) k/uL Comprehensive Metabolic Panel 04/23/23 Range/Units 05:04 Sodium 139 (137-145) mmol/L Potassium 3.8 (3.5-5.1) mmol/L Chloride 106 (98-107) mmol/L Carbon Dioxide 23 (22-30) mmol/L BUN 2 L (9-20) mg/dL Creatinine 0.60 L (0.66-1.25) mg/dL Glucose 107 H (74-99) mg/dL Calcium 9.0 (8.4-10.2) mg/dL AST 28 (17-59) U/L ALT 23 (4-49) U/L Alkaline Phosphatase 69 (38-126) U/L Total Protein 6.7 (6.3-8.2) g/dL Albumin 4.0 (3.5-5.0) g/dL Current Medications Generic Name Dose Route Start Last Admin Trade Name Freq PRN Reason Stop Dose Admin Amlodipine Besylate 5 mg 04/24/23 09:00 Amlodipine 5 Mg Tab PO DAILY [facility] Aspirin 81 mg 04/23/23 10:30 04/23/23 10:40 Aspirin 81 Mg PO 81 mg DAILY [facility] Administration Escitalopram Oxalate 10 mg 04/24/23 09:00 Escitalopram 10 Mg Tab PO DAILY [facility] Folic Acid 1 mg 04/24/23 09:00 Folic Acid 1 Mg Tab PO DAILY [facility] Furosemide 40 mg 04/23/23 21:00 Furosemide 10 Mg/Ml 4 Ml Vial IV Q12HR [facility] Heparin Sodium (Porcine) 5,000 unit 04/23/23 10:15 04/23/23 10:39 Heparin Sodium,Porcine/Pf 5,000 Unit/0.5 Ml Syringe SQ 5,000 unit Q12HR [facility] Administration Isosorbide Mononitrate 30 mg 04/24/23 09:00 Isosorbide Mononitrate Er 30 Mg Tab.Er.24h PO DAILY [facility] Metoprolol Tartrate 25 mg 04/23/23 11:15 Metoprolol Tartrate 25 Mg Tab PO BID [facility] Naloxone HCl 0.2 mg 04/23/23 06:29 Naloxone 0.4 Mg/Ml 1 Ml Vial IV Q2M PRN Opioid Reversal Oxycodone/Acetaminophen 1 each 04/23/23 10:00 04/23/23 10:40 Oxycodone-Apap 10-325mg 1 Each Tab PO 1 each Q6H [facility] Administration Pantoprazole Sodium 40 mg 04/24/23 07:30 Pantoprazole 40 Mg Tablet PO AC-BRKFST [facility] Intake and Output 04/22/23 04/23/23 04/23/23 22:59 06:59 14:59 Other: Weight 79.379 kg 04/23/23 05:04 04/23/23 05:04
[2023-04-23] MEDS: LOSARTAN 50 MG TAB PO SCH (12:22)
[2023-04-23] MEDS: hydroCHLOROthiazide 25 MG TAB PO SCH (12:22)
[2023-04-23] MEDS: METOPROLOL TARTRATE 25 MG TAB PO SCH ×2 (12:22→20:53)
--- NOTE | 2023-04-23 13:25 | US ---
EXAMINATION TYPE: US venous doppler duplex LE DATE OF EXAM: 04/23/2023 12:46 PM COMPARISON: NONE CLINICAL INDICATION: Male, 67 years old with history of leg swelling; swelling in legs, CHF, no h/o d vt SIDE PERFORMED: Bilateral TECHNIQUE: The lower extremity deep venous system is examined utilizing real time linear array sonog soren with graded compression, doppler sonography and color-flow sonography. VESSELS IMAGED: Common Femoral Vein Deep Femoral Vein Greater Saphenous Vein * Femoral Vein Popliteal Vein Small Saphenous Vein * Proximal Calf Veins (* superficial vessels) Right Leg: Negative for DVT Left Leg: Negative for DVT IMPRESSION: Grayscale, color doppler, spectral doppler imaging performed of the deep veins of the lo wer extremities. There is normal flow, compressibility, vascular waveforms.
[2023-04-23 16:09] LABS: Chol/HDL Ratio 3.18 Ratio; LDL Cholesterol,Calculated 101.3 mg/dL (0.0-131.0)
--- NOTE | 2023-04-23 17:39 | CA ---
Transthoracic Echo Report Name: Salomon Johnson Age: 67 Gender: M : 1955 Exam Date: 04/23/2023 13:03 Exam Location: [place] [facility] Ht (in): 71 Wt (lb): 175 Ordering Physician: Rowan Rosenberg Attending/Referring Phys: [id number], Chet Utility Mechanic Augustin Talley Procedure CPT: Indications: LV function Cardiac Hx: Technical Quality: Fair Contrast 1: Total Dose (mL): Contrast 2: Total Dose (mL): MEASUREMENTS (Male / Female) Normal Values 2D ECHO LV Diastolic Diameter PLAX 2.8 cm 4.2 - 5.9 / 3.9 - 5.3 cm LV Systolic Diameter PLAX 2.0 cm IVS Diastolic Thickness 1.4 cm 0.6 - 1.0 / 0.6 - 0.9 cm LVPW Diastolic Thickness 1.3 cm 0.6 - 1.0 / 0.6 - 0.9 cm LV Relative Wall Thickness 1.0 RV Internal Dim ED PLAX 2.2 cm LVOT Diameter 2.3 cm Aortic Root Diameter 3.4 cm LA Systolic Diameter LX 2.9 cm 3.0 - 4.0 / 2.7 - 3.8 cm LV Diastolic Volume MOD BP 52.2 cm??? 67 - 155 / 56 - 104 cm??? LV Systolic Volume MOD BP 18.2 cm??? 22 - 58 / 19 - 49 cm??? LV Ejection Fraction MOD BP 65.1 % >= 55 % LV Diastolic Volume MOD 4C 42.5 cm??? LV Systolic Volume MOD 4C 15.4 cm??? LV Ejection Fraction MOD 4C 63.6 % LV Diastolic Length 4C 7.1 cm LV Systolic Length 4C 6.7 cm LV Diastolic Volume MOD 2C 62.0 cm??? LV Systolic Volume MOD 2C 19.5 cm??? LV Ejection Fraction MOD 2C 68.6 % LV Diastolic Length 2C 7.5 cm LV Systolic Length 2C 6.0 cm LA Volume 38.5 cm??? 18 - 58 / 22 - 52 cm??? Ascending Aorta Diameter 3.1 cm DOPPLER AV Peak Velocity 193.1 cm/s AV Peak Gradient 14.9 mmHg MV Peak Velocity 107.3 cm/s MV Peak Gradient 4.6 mmHg MV Mean Velocity 55.3 cm/s MV Mean Gradient 1.5 mmHg MV Velocity Time Integral 26.8 cm Mitral E Point Velocity 73.7 cm/s Mitral A Point Velocity 99.7 cm/s Mitral E to A Ratio 0.7 MV Deceleration Time 198.9 ms MV E' Velocity 6.5 cm/s Mitral E to MV E' Ratio 11.4 TR Peak Velocity 140.2 cm/s TR Peak Gradient 7.9 mmHg Right Ventricular Systolic Press 13.0 mmHg PV Peak Velocity 212.5 cm/s PV Peak Gradient 18.1 mmHg FINDINGS Left Ventricle Left ventricular ejection fraction is estimated at 60-65 %. Right Ventricle Normal right ventricular size. Right Atrium Normal right atrial size. Left Atrium Normal left atrial size. Mitral Valve Grossly normal MV. No mitral regurgitation. Aortic Valve AV Thickening. No aortic valve stenosis or regurgitation. Tricuspid Valve Structurally normal tricuspid valve. Trace TR. Pulmonic Valve Pulmonic valve not well visualized. Mild to moderate PI. Pericardium Normal pericardium. Aorta Normal size aortic root and proximal ascending aorta. CONCLUSIONS Normal LV systolic function Previewed by: Dr. Yogesh Simmons MD (Electronically Signed) Final Date: 23 April 2023 17:38
[2023-04-23] MEDS: ATORVASTATIN 20 MG TAB PO SCH (20:53)
[2023-04-23] MEDS ORDERED: FUROSEMIDE 10 MG/ML 4 ML VIAL IV SCH (21:00)
[2023-04-23] MEDS ORDERED: amLODIPine 5 MG TAB PO SCH (21:00)
--- NOTE | 2023-04-23 21:40 | CT ---
EXAMINATION TYPE: CT chest angio for PE CT DLP: 348.5 mGycm, Automated exposure control for dose reduction was used. DATE OF EXAM: 04/23/2023 9:15 PM COMPARISON: CTA chest 01/05/2022 CLINICAL INDICATION:Male, 67 years old with history of chest pain , high ddimer; chest pain, elevated d dimer TECHNIQUE/CONTRAST: CTA scan of the thorax is performed with IV Contrast, patient injected with 70ml mL of Isovue 370, pu lmonary embolism protocol. MIP images are created and reviewed. FINDINGS: Pulmonary Artery: There is no evidence for a filling defect within the pulmonary vasculature to sugge st acute pulmonary embolism. The pulmonary artery is of normal size. Lungs/Pleura: No evidence of focal consolidation, pleural effusion or pneumothorax. Linear scarring a telectasis within the superior segments of both lower lobes and inferior aspect of the right lower lo be. No suspicious pulmonary nodule or mass. Airway: Large airways are patent. Heart: Heart is within normal limits for size.. No pericardial effusion. Vasculature: No evidence of aortic aneurysm. Mediastinum: No gross evidence of adenopathy. Musculoskeletal: No acute osseous abnormalities. 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 Soft Tissues: Unremarkable. Lower neck: No significant findings. Upper Abdomen: Stable cyst within the left hepatic lobe. Postcholecystectomy changes. IMPRESSION: No evidence of pulmonary embolism or acute thoracic process.
[2023-04-23] MEDS ORDERED: amLODIPine 5 MG TAB PO STA (23:25)
[2023-04-23] MEDS ORDERED: oxyCODONE-APAP 10-325MG 1 EACH TAB PO ONE (23:45)
[2023-04-24] MEDS: oxyCODONE-APAP 10-325MG 1 EACH TAB PO SCH ×4 (03:46→21:08)
[2023-04-24] MEDS: PANTOPRAZOLE 40 MG TABLET PO SCH (06:30)
[2023-04-24] MEDS: ISOSORBIDE MONONITRATE ER 30 MG TAB.ER.24H PO SCH (08:24)
[2023-04-24] MEDS: amLODIPine 10 MG TAB PO SCH (08:24)
[2023-04-24] MEDS: LOSARTAN 50 MG TAB PO SCH (08:24)
[2023-04-24] MEDS: hydroCHLOROthiazide 25 MG TAB PO SCH (08:24)
[2023-04-24] MEDS: ASPIRIN 81 MG PO SCH (08:24)
[2023-04-24] MEDS: HEPARIN SODIUM,PORCINE/PF 5,000 UNIT/0.5 ML SYRINGE SQ SCH ×2 (08:24→21:09)
[2023-04-24] MEDS: FOLIC ACID 1 MG TAB PO SCH (08:24)
[2023-04-24] MEDS: ESCITALOPRAM 10 MG TAB PO SCH (08:24)
[2023-04-24] MEDS: METOPROLOL TARTRATE 25 MG TAB PO SCH (08:24)
[2023-04-24] MEDS ORDERED: amLODIPine 5 MG TAB PO SCH ×2 (09:00)
[2023-04-24 09:20] LABS: African American GFR (CKD) >90 (>60 ml/min/1.73 sqM); Anion Gap 11 mmol/L; Blood Urea Nitrogen 6 mg/dL (9-20); Calcium 9.2 mg/dL (8.4-10.2); Carbon Dioxide 23 mmol/L (22-30); Chloride 104 mmol/L (98-107); Glucose 135 mg/dL (74-99); Non-African American GFR(CKD) >90 (>60 ml/min/1.73 sqM); Sodium 138 mmol/L (137-145)
[2023-04-24 09:23] LABS: Potassium 4.1 mmol/L (3.5-5.1)
[2023-04-24] MEDS ORDERED: LOSARTAN 50 MG TAB PO STA (09:27)
[2023-04-24] MEDS ORDERED: METOPROLOL TARTRATE 25 MG TAB PO STA (09:27)
--- NOTE | 2023-04-24 10:45 | P.PN ---
Subjective HISTORY OF PRESENT ILLNESS: This is a 67-year-old male with a past medical history significant for coronary artery disease with previous stenting, hyperlipidemia, hypertension, chronic pain, former nicotine dependence, and medication noncompliance of the past. Patient previously followed in the office with Dr. Go but now sees a crusher assembler at [facility]. We have been asked to see the patient in consultation for chest pain. Patient examined at the bedside. Patient presented to the hospital with a chief complaint of chest pain. The patient states he has been having chest pain for the past 2 days. He states the pain comes and goes. He states it is nonexertional and tenderness occur when he is watching TV. He reports the pain will go into his jaw on his left arm. He states the pain lasts for couple minutes and then it goes away on its own. He states he did not take any nitro at home because he doesn't have any and in the past this has given him a bad headache. The patient states that he has not seen his crusher assembler at [place] in a long time. He states that he has not had any recent testing or procedures completed by his primary crusher assembler either. Patient was found to have extreme elevated blood pressure on admission with systolics in the 180s and diastolics in the 130s. The patient states he checks his blood pressure at home and it tends to run on the higher side as well. He reports lower extremity edema for the past 2 days as well. * EKG reveals sinus tachycardia with no signs of acute ischemia * Chest xray negative for acute process * Laboratory data: WBC 2.3. Hemoglobin 12.5. Platelet count 288. D-dimer 0.79. Sodium 139. Potassium 3.8. BUN 2. Creatinine 0.60. Magnesium 1.7. Troponin negative 1. ProBNP 66. * Current home cardiac medications include Imdur 30 mg daily, Norvasc 5 mg daily, and aspirin 81 mg daily * Most recent echocardiogram obtained in December 2021 revealed ejection fraction 60-65%, trace aortic regurgitation, bicuspid aortic valve, mild aortic stenosis, mild tricuspid regurgitation * Patient underwent Lexiscan stress test in April 2021 which was negative for ischemia * Cardiac catheterization history: April 2019 revealing widely patent LAD at the site of stenting no more than 30-40% diagonal narrowing at the bifurcation stenting site, no significant disease in RCA or circumflex, normal filling pressures, no gradient. 04/24/2023 Patient examined this morning at the bedside. Patient currently denies shortness of breath. He reports chest pressure this morning that radiates to his jaw on his left arm. EKG was completed which did not reveal evidence of acute ischemia. Repeat troponin is currently pending. Patient's blood pressures remain significantly elevated with a systolic in the 190s. Telemetry reveals sinus tachycardia with a heart rate in the 120s. Echocardiogram completed revealing ejection fraction 60-65%. PHYSICAL EXAM: VITAL SIGNS: Reviewed. GENERAL: Well-developed in no acute distress. HEENT: Head is normocephalic. Pupils are equal, round. Sclerae anicteric. Mucous membranes of the mouth are moist. Neck supple. No JVD or thyromegaly LUNGS: Respirations even and unlabored. Lungs essentially clear to auscultation bilaterally. HEART: Regular rate and rhythm. S1 and S2 heard. ABDOMEN: Soft. Nondistended. Nontender. EXTREMITIES: Normal range of motion. No clubbing or cyanosis. Peripheral pulses intact. Trace lower extremity edema NEUROLOGIC: Awake and alert. Oriented x 3. ASSESSMENT: Chest pain, troponins negative 3 Hypertension, uncontrolled Lower extremity edema, may be secondary to venous insufficiency, BNP normal and chest x-ray negative for fluid overload Coronary artery disease with previous stenting of the LAD Bicuspid aortic valve Hyperlipidemia Chronic pain History of medication noncompliance Former nicotine dependence PLAN: Continue current cardiac medications Increase losartan to 100 mg daily Increase metoprolol tartrate to 50 mg twice a day Await repeat troponin Recommend outpatient stress testing when blood pressure has stabilized Further recommendations pending patient's course Nurse practitioner note has been reviewed by physician. Signing provider agrees with the documented findings, assessment, and plan of care. Objective - Vital Signs Vital signs: Vital Signs Temp 98.3 F 04/24/23 04:00 Pulse 123 H 04/24/23 08:00 Resp 18 04/24/23 08:00 BP 195/97 04/24/23 08:00 Pulse Ox 96 04/24/23 08:00 FiO2 Intake & Output 04/23/23 04/24/23 04/24/23 18:59 06:59 18:59 Intake Total 10 20 550 Balance 10 20 550 Weight 79.379 kg Intake: IV 10 20 10 Invasive Line 1 10 20 10 Oral 540 Other: Voiding Method Toilet Toilet - Labs CBC & Chem 7: 04/23/23 05:04 04/24/23 08:15 Labs: Abnormal Lab Results - Last 24 Hours (Table) 04/23/23 04/24/23 Range/Units 12:07 08:15 D-Dimer 0.85 H (<0.60) mg/L FEU BUN 6 L (9-20) mg/dL Creatinine 0.57 L (0.66-1.25) mg/dL Glucose 135 H (74-99) mg/dL
[2023-04-24] MEDS ORDERED: ONDANSETRON 4 MG/2 ML VIAL IVP PRN (12:08)
--- NOTE | 2023-04-24 14:56 | P.PN ---
Subjective This is a pleasant 67 years old male with multiple medical problems including Coronary Artery Disease status post stent, COPD, Deep Vein Thrombosis (DVT), GERD/Reflux, Hyperlipidemia, Hypertension, Osteoarthritis hypothyroidism, PUD, chronic low back pain, c numbness/tingling bilateral lower legs, bilateral past R hand fracture, arthritis multiple joints, hyperthyroid, sinus problems. Patient follow up with fire alarm inspector Dr. Evans and Howie floyd, he says he does not have PCP here in [place] and he follow-up with a pain doctor at [place] as well. He has chronic back pain and he had back surgery and chronic left-sided weakness as he states. He comes today because of that side chest pain radiating to the left arm and left jaw since yesterday about 8/10 in severity, nonspecific with no relieving or precipitating factors, no exertional dyspnea and he has bilateral leg swelling. He denies any GI urinary or neurological symptoms other than above. He denies smoking alcohol all orifices drugs. Patient has stable vitals, blood pressure is slightly elevated 170/113 Wbc are 2.3, hemoglobin 12.5. INR 0.9 BMP and liver enzymes are unremarkable EKG showing sinus tachycardia at [address]-T changes Chest x-ray: No acute process. Patient was given labetalol 1 maps was checked , he is on Percocet 10 mg on 120 tablets for 30 day felt on 04/16/2023. Also was given 666 day of oral Dilaudid on 04/10/23 04/24/2023 Patient keep complaining of from chest pain which is most likely musculoskeletal in nature. Research Microbiologist on the case and the recommended outpatient stress test. CTA of the chest is negative for PE. Patient was asked was discontinued yesterday, his leg swelling is significantly improved. However his blood pressure still significantly elevated 191/93 and heart rate still elevated 120. His blood pressure medications were increased today Norvasc up to 10 mg, losartan 100 mg and metoprolol up to 50 mg Case was discussed with fire alarm inspector team we will keep monitoring him for now. We'll consult nephrology for uncontrolled blood pressure Objective - Vital Signs Vital signs: Vital Signs Temp 98.3 F 04/24/23 04:00 Pulse 121 H 04/24/23 12:00 Resp 16 04/24/23 12:00 BP 191/93 04/24/23 12:00 Pulse Ox 97 04/24/23 12:00 FiO2 Intake & Output 04/23/23 04/24/23 04/24/23 18:59 06:59 18:59 Intake Total 10 20 550 Balance 10 20 550 Weight 79.379 kg Intake: IV 10 20 10 Invasive Line 1 10 20 10 Oral 540 Other: Voiding Method Toilet Toilet - Exam GENERAL: The patient is alert and oriented x3, not in any acute distress. Well developed, well nourished. HEENT: Pupils are round and equally reacting to light. EOMI. No scleral icterus. No conjunctival pallor. Normocephalic, atraumatic. No pharyngeal erythema. No thyromegaly. CARDIOVASCULAR: S1 and S2 present. No murmurs, rubs, or gallops. PULMONARY: Chest is clear to auscultation, no wheezing or crackles. ABDOMEN: Soft, nontender, nondistended, normoactive bowel sounds. No palpable organomegaly. MUSCULOSKELETAL: No joint swelling or deformity. EXTREMITIES: No cyanosis, clubbing, or pedal edema. NEUROLOGICAL: Gross neurological examination did not reveal any focal deficits. SKIN: No rashes. no petechiae. - Labs CBC & Chem 7: 04/23/23 05:04 04/24/23 08:15 Labs: Abnormal Lab Results - Last 24 Hours (Table) 04/23/23 04/24/23 Range/Units 12:07 08:15 D-Dimer 0.85 H (<0.60) mg/L FEU BUN 6 L (9-20) mg/dL Creatinine 0.57 L (0.66-1.25) mg/dL Glucose 135 H (74-99) mg/dL Assessment and Plan Assessment: Refractory hypertension Chest pain cardiac and pulmonary causes ruled out. Most likely musculoskeletal versus other bilateral leg swelling most likely related to venous stasis, resolved significa ntly History of coronary artery disease status post stenting Chronic back pain with chronic left-sided weakness as patient states. Patient along with pain clinic Hypertension, uncontrolled on admission Hyperlipidemia Diabetes mellitus History of GERD Hypothyroidism History of osteoarthritis Plan: Patient states that he has no PCP, he was counseled to call health insurance provider and trying to nearby PCP to call within 1 week after discharge Cardiology consult on the case Continue with losartan 100 mg, metoprolol 50 mg and Norvasc 10 mg. Consult nephrology service. Patient states he takes aspirin and Plavix at home, are going to verify with pharmacy, discussed with staff and bedside nurse. Labs and medication were reviewed.. Continue same treatment. Continue with symptomatic treatment. Resume home medication. Monitor labs and vitals. DVT and GI prophylaxis. Further recommendations as per clinical course of the patient DVT prophylaxis: Subcutaneous heparin GI Prophylaxis: Ppi Prognosis is guarded Discussed the case with cardiology team and bedside nurse
[2023-04-24] MEDS ORDERED: hydrALAZINE HCL 20 MG/ML 1 ML VIAL IVP PRN (15:06)
[2023-04-24] MEDS ORDERED: LIDOCAINE 4% CREAM 5 GM TUBE TOPICAL SCH (21:00)
[2023-04-24] MEDS: METOPROLOL TARTRATE 50 MG TAB PO SCH (21:08)
[2023-04-24] MEDS: ATORVASTATIN 20 MG TAB PO SCH (21:09)
[2023-04-24] MEDS ORDERED: Acetaminophen-Codeine 300-30mg TAB PO STA (22:03)
[2023-04-25] MEDS: oxyCODONE-APAP 10-325MG 1 EACH TAB PO SCH ×4 (04:10→21:27)
[2023-04-25] MEDS: PANTOPRAZOLE 40 MG TABLET PO SCH (06:54)
[2023-04-25 07:40] LABS: African American GFR (CKD) >90 (>60 ml/min/1.73 sqM); Anion Gap 8 mmol/L; Blood Urea Nitrogen 10 mg/dL (9-20); Calcium 9.1 mg/dL (8.4-10.2); Carbon Dioxide 25 mmol/L (22-30); Chloride 103 mmol/L (98-107); Glucose 125 mg/dL (74-99); Non-African American GFR(CKD) >90 (>60 ml/min/1.73 sqM); Sodium 136 mmol/L (137-145)
[2023-04-25 08:03] LABS: Potassium 4.2 mmol/L (3.5-5.1)
[2023-04-25] MEDS: HEPARIN SODIUM,PORCINE/PF 5,000 UNIT/0.5 ML SYRINGE SQ SCH ×2 (09:08→21:29)
[2023-04-25] MEDS: ASPIRIN 81 MG PO SCH (09:09)
[2023-04-25] MEDS: ISOSORBIDE MONONITRATE ER 30 MG TAB.ER.24H PO SCH (09:10)
[2023-04-25] MEDS: ESCITALOPRAM 10 MG TAB PO SCH (09:10)
[2023-04-25] MEDS: LOSARTAN 50 MG TAB PO SCH (09:10)
[2023-04-25] MEDS: amLODIPine 10 MG TAB PO SCH (09:10)
[2023-04-25] MEDS: hydroCHLOROthiazide 25 MG TAB PO SCH (09:10)
[2023-04-25] MEDS: FOLIC ACID 1 MG TAB PO SCH (09:10)
[2023-04-25] MEDS: METOPROLOL TARTRATE 50 MG TAB PO SCH ×2 (09:10→21:29)
[2023-04-25] MEDS ORDERED: MORPHINE SULFATE 2 MG/ML SYRINGE IVP STA (12:57)
--- NOTE | 2023-04-25 14:36 | P.NPCON ---
History of Present Illness - Reason for Consult Consult date: 04/25/23 accelerated hypertension - Chief Complaint Left-sided chest and jaw pain. - History of Present Illness More than 10 years history of hypertension and diabetes. Admits taking antihypertensive medications, but always has elevated blood pressures. Denies any nausea vomiting or diarrhea. Episodes of sweats with palpitations. Normal LV function. CT chest with contrast no PE or dissection. On admission her pressure and 180/130 systolic improved, with labile blood pressures. He currently takes multiple antihypertensive medications. He still complains of left arm and jaw pain and wants pain medications. Denies any NSAID use. Review of Systems Constitutional: Reports as per HPI Past Medical History Past Medical History: Coronary Artery Disease (CAD), Chest Pain / Angina, COPD, Deep Vein Thrombosis (DVT), GERD/Reflux, Hyperlipidemia, Hypertension, Osteoarthritis (OA), Thyroid Disorder Additional Past Medical History / Comment(s): Occasional palpitations, gastritis, small hiatal hernia, diverticular dx, pt states years ago he had PUD, chronic low back pain, chronic pain syndrome, migraines, DVT L arm, numbness/tingling bilateral lower legs, bilateral past R hand fracture, art hritis multiple joints, hyperthyroid, sinus problems. History of Any Multi-Drug Resistant Organisms: None Reported Past Surgical History: Back Surgery, Cholecystectomy, Heart Catheterization With Stent, Orthopedic Surgery Additional Past Surgical History / Comment(s): EGDs/colonoscopies, multiple low back surgeries, bilateral arm and bilateral thigh surgeries for brown recluse spider bites with infection, morphine pain pump insertion and removal due to infection, PCI with stents, L rotator cuff repair, L knee arthroscopy, cervical fusion/cage, R cataract removal. 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 states he was "down for 8 minutes" Date of Last Stent Placement:: 10/12/17 Past Psychological History: No Psychological Hx Reported Additional Psychological History / Comment(s): Pt resides with his spouse. He uses a walker and cane to ambulate. He does not drive, neither does his spouse, they use the bus or rides thru their insurance company Smoking Status: Former smoker Past Alcohol Use History: None Reported Additional Past Alcohol Use History / Comment(s): Pt started amoking in 1973 and quit in 1985 Past Drug Use History: None Reported - Past Family History Father Family Medical History: No Reported History Additional Family Medical History / Comment(s): Father had back problems. He lived to be 82 yrs old. Mother History Unknown: Yes Family Medical History: Hypertension, Myocardial Infarction (AR) Additional Family Medical History / Comment(s): Mother of a AR at the age of 55yrs. Brother(s) Family Medical History: Cancer, COPD Additional Family Medical History / Comment(s): Leukemia Medications and Allergies Home Medications Medication Instructions Recorded Confirmed Type tiZANidine [Zanaflex] 4 mg PO HS 02/26/18 04/23/23 History oxyCODONE-APAP 10-325MG [Percocet 1 tab PO Q6H 01/02/20 04/23/23 History 10-325 mg] Aspirin EC [Ecotrin Low Dose] 81 mg PO DAILY 04/23/23 04/23/23 History Escitalopram [Lexapro] 10 mg PO DAILY 04/23/23 04/23/23 History Folic Acid 1 mg PO DAILY 04/23/23 04/23/23 History Isosorbide Mononitrate ER [Imdur] 30 mg PO DAILY 04/23/23 04/23/23 History Pantoprazole Sodium [Protonix] 40 mg PO DAILY 04/23/23 04/23/23 History amLODIPine [Norvasc] 5 mg PO DAILY 04/23/23 04/23/23 History Allergies Allergy/AdvReac Type Severity Reaction Status Date / Time codeine Allergy Itching Verified 04/24/23 22:18 ibuprofen [From Motrin] Allergy Rash/Hives Verified 04/23/23 07:17 ketorolac tromethamine Allergy Rash/Hives Verified 04/23/23 07:17 [From Toradol] Physical Exam Vitals: Vital Signs Temp Pulse Resp BP Pulse Ox 04/25/23 12:00 118 H 16 146/106 04/25/23 08:00 98.1 F 118 H 16 168/100 04/25/23 04:11 108 H 17 119/68 97 04/25/23 01:34 118 H 16 04/24/23 23:42 143/107 04/24/23 23:41 118 H 16 140/111 97 04/24/23 20:00 97.8 F 113 H 16 137/93 97 04/24/23 16:00 97.9 F 124 H 18 153/88 97 Intake and Output 04/24/23 04/25/23 04/25/23 22:59 06:59 14:59 Intake Total 490 10 20 Balance 490 10 20 Intake: IV 10 10 20 Invasive Line 1 10 10 20 Oral 480 Other: Voiding Method Toilet Toilet Toilet No acute distress S1-S2 heard Lungs clear No edema Results - Lab Results Most recent lab results Calcium 9.1 mg/dL (8.4-10.2) 04/25/23 06:59 Magnesium 1.7 mg/dL (1.6-2.3) 04/23/23 05:04 04/23/23 05:04 04/25/23 06:59 Assessment and Plan Assessment: #1 hypertensive urgency. #2 chronic uncontrolled blood pressure. #3 normal renal function Plan: #1 continue with current antihypertensive medications #2 check renin aldosterone, metanephrine levels. #3 avoid nephrotoxic agents and hypotensive episodes
--- NOTE | 2023-04-25 15:40 | P.PN ---
Subjective Progress Note Date: 04/25/23 67 years old male with multiple medical problems including Coronary Artery Disease status post stent, COPD, Deep Vein Thrombosis (DVT), GERD/Reflux, Hyperlipidemia, Hypertension, Osteoarthritis hypothyroidism, PUD, chronic low back pain, c numbness/tingling bilateral lower legs, bilateral past R hand frac ture, arthritis multiple joints, hyperthyroid, sinus problems. Patient follow up with functional tester typewriters Dr. Evans and Howie floyd, he says he does not have PCP here in [place] and he follow-up with a pain doctor at [place] as well. He has chronic back pain and he had back surgery and chronic left-sided weakness as he states. He comes today because of that side chest pain radiating to the left arm and left jaw since yesterday about 8/10 in severity, nonspecific with no relieving or precipitating factors, no exertional dyspnea and he has bilateral leg swelling. He denies any GI urinary or neurological symptoms other than above. He denies smoking alcohol all orifices drugs. Patient has stable vitals, blood pressure is slightly elevated 170/113 Wbc are 2.3, hemoglobin 12.5. INR 0.9 BMP and liver enzymes are unremarkable EKG showing sinus tachycardia at [address]-T changes Chest x-ray: No acute process. Patient was given labetalol 1 maps was checked , he is on Percocet 10 mg on 120 tablets for 30 day felt on 04/16/2023. Also was given 666 day of oral Dilaudid on 04/10/23 04/24/2023 Patient keep complaining of from chest pain which is most likely musculoskeletal in nature. Revenue Liaison on the case and the recommended outpatient stress test. CTA of the chest is negative for PE. Patient was asked was discontinued yesterday, his leg swelling is significantly improved. However his blood pressure still significantly elevated 191/93 and heart rate still elevated 120. His blood pressure medications were increased today Norvasc up to 10 mg, losartan 100 mg and metoprolol up to 50 mg Case was discussed with functional tester typewriters team we will keep monitoring him for now. We'll consult nephrology for uncontrolled blood pressure 04/25 Blood pressure eleavted, c/o pain Generalized Objective - Vital Signs Vital signs: Vital Signs Temp 98.1 F 04/25/23 08:00 Pulse 118 H 04/25/23 12:00 Resp 16 04/25/23 12:00 BP 146/106 04/25/23 12:00 Pulse Ox 97 04/25/23 04:11 FiO2 Intake & Output 04/24/23 04/25/23 04/25/23 18:59 06:59 18:59 Intake Total 1700 20 20 Balance 1700 20 20 Intake: IV 20 20 20 Invasive Line 1 20 20 20 Oral 1680 Other: Voiding Method Toilet Toilet - Exam GENERAL: The patient is alert and oriented x3, not in any acute distress. Well developed, well nourished. HEENT: Pupils are round and equally reacting to light. EOMI. No scleral icterus. No conjunctival pallor. Normocephalic, atraumatic. No pharyngeal erythema. No thyromegaly. CARDIOVASCULAR: S1 and S2 present. No murmurs, rubs, or gallops. PULMONARY: Chest is clear to auscultation, no wheezing or crackles. ABDOMEN: Soft, nontender, nondistended, normoactive bowel sounds. No palpable organomegaly. MUSCULOSKELETAL: No joint swelling or deformity. EXTREMITIES: No cyanosis, clubbing, or pedal edema. NEUROLOGICAL: Gross neurological examination did not reveal any focal deficits. SKIN: No rashes. no petechiae. - Labs CBC & Chem 7: 04/23/23 05:04 04/25/23 06:59 Labs: Abnormal Lab Results - Last 24 Hours (Table) 04/25/23 Range/Units 06:59 Sodium 136 L (137-145) mmol/L Creatinine 0.64 L (0.66-1.25) mg/dL Glucose 125 H (74-99) mg/dL Assessment and Plan Assessment: Assessment: * Refractory hypertension * musculoskeletal pain * bilateral leg swelling most likely related to venous stasis, resolved significantly * History of coronary artery disease status post stenting * Chronic back pain with chronic left-sided weakness as patient states. Patient along with pain clinic * Hypertension, uncontrolled on admission * Hyperlipidemia * Diabetes mellitus * History of GERD * Hypothyroidism * History of osteoarthritis Plan: Patient states that he has no PCP, he was counseled to call health insurance provider and trying to nearby PCP to call within 1 week after discharge Cardiology consulted Continue with losartan 100 mg, metoprolol 50 mg and Norvasc 10 mg. Consulted nephrology Labs and medication were reviewed. DVT prophylaxis: Subcutaneous heparin
--- NOTE | 2023-04-25 16:38 | P.PN ---
Subjective Progress Note Date: 04/25/23 This is a 67-year-old male with a past medical history significant for coronary artery disease with previous stenting, hyperlipidemia, hypertension, chronic pain, former nicotine dependence, and medication noncompliance of the past. Patient previously followed in the office with Dr. Go but now sees a tipple tender at [facility]. We have been asked to see the patient in consultation for chest pain. Patient examined at the bedside. Patient presented to the hospital with a chief complaint of chest pain. The patient states he has been having chest pain for the past 2 days. He states the pain comes and goes. He states it is nonexertional and tenderness occur when he is watching TV. He reports the pain will go into his jaw on his left arm. He states the pain lasts for couple minutes and then it goes away on its own. He states he did not take any nitro at home because he doesn't have any and in the past this has given him a bad headache. The patient states that he has not seen his tipple tender at [place] in a long time. He states that he has not had any recent testing or p rocedures completed by his primary tipple tender either. Patient was found to have extreme elevated blood pressure on admission with systolics in the 180s and diastolics in the 130s. The patient states he checks his blood pressure at home and it tends to run on the higher side as well. He reports lower extremity edema for the past 2 days as well. * EKG reveals sinus tachycardia with no signs of acute ischemia * Chest xray negative for acute process * Laboratory data: WBC 2.3. Hemoglobin 12.5. Platelet count 288. D-dimer 0.79. Sodium 139. Potassium 3.8. BUN 2. Creatinine 0.60. Magnesium 1.7. Troponin negative 1. ProBNP 66. * Echocardiogram revealed ejection fraction of 60-65% * Patient underwent Lexiscan stress test in April 2021 which was negative for ischemia * Cardiac catheterization history: April 2019 revealing widely patent LAD at the site of stenting no more than 30-40% diagonal narrowing at the bifurcation stenting site, no significant disease in RCA or circumflex, normal filling pressures, no gradient. 04/25/2023 Patient seen and examined resting in bed after ambulating in the hallway. He continues to complain of constant chest discomfort with no variation. His rey thing is relatively stable but he continues to have some dyspnea on exertion. He remained somewhat tachycardic but better. Blood pressure remains elevated but has improved. Objective - Vital Signs Vital signs: Vital Signs Temp 98.1 F 04/25/23 08:00 Pulse 114 H 04/25/23 16:00 Resp 16 04/25/23 16:00 BP 151/81 04/25/23 16:00 Pulse Ox 97 04/25/23 04:11 FiO2 Intake & Output 04/24/23 04/25/23 04/25/23 18:59 06:59 18:59 Intake Total 1700 20 20 Balance 1700 20 20 Intake: IV 20 20 20 Invasive Line 1 20 20 20 Oral 1680 Other: Voiding Method Toilet Toilet - Exam VITAL SIGNS: Reviewed. GENERAL: Well-developed in no acute distress. HEENT: Head is normocephalic. Pupils are equal, round. Sclerae anicteric. Mucous membranes of the mouth are moist. Neck supple. No JVD or thyromegaly LUNGS: Respirations even and unlabored. Lungs essentially clear to auscultation bilaterally. HEART: Regular rate and rhythm. S1 and S2 heard. ABDOMEN: Soft. Nondistended. Nontender. EXTREMITIES: Normal range of motion. No clubbing or cyanosis. Peripheral pulses intact. Trace lower extremity edema NEUROLOGIC: Awake and alert. Oriented x 3. - Labs CBC & Chem 7: 04/23/23 05:04 04/25/23 06:59 Labs: Abnormal Lab Results - Last 24 Hours (Table) 04/25/23 Range/Units 06:59 Sodium 136 L (137-145) mmol/L Creatinine 0.64 L (0.66-1.25) mg/dL Glucose 125 H (74-99) mg/dL Assessment and Plan Assessment: Chest pain, troponins negative 3 Hypertension, uncontrolled, improving Lower extremity edema, may be secondary to venous insufficiency, BNP normal and chest x-ray negative for fluid overload Coronary artery disease with previous stenting of the LAD Bicuspid aortic valve Hyperlipidemia Chronic pain History of medication noncompliance Former nicotine dependence Plan: From cardiology's perspective medications were reviewed and we will continue the same. Further adjustments to his antihypertensives can be done as an outpatient. Patient advised to set up an appointment soon with his primary tipple tender. Would recommend outpatient stress testing 1 blood pressure has stabilized. From our standpoint patient may be discharged home when okay by primary. RETAIL KEY HOLDER note has been reviewed, I agree with a documented findings and plan of care. Patient was seen and examined.
[2023-04-25] MEDS: LIDOCAINE 5% PATCH TOPICAL SCH ×2 (17:07→17:08)
[2023-04-25] MEDS ORDERED: tiZANidine 4 MG TAB PO SCH (21:00)
[2023-04-25] MEDS: ATORVASTATIN 20 MG TAB PO SCH (21:29)
[2023-04-26] MEDS: oxyCODONE-APAP 10-325MG 1 EACH TAB PO SCH ×2 (03:23→09:46)
[2023-04-26 06:54] LABS: African American GFR (CKD) >90 (>60 ml/min/1.73 sqM); Anion Gap 8 mmol/L; Blood Urea Nitrogen 11 mg/dL (9-20); Calcium 8.9 mg/dL (8.4-10.2); Carbon Dioxide 25 mmol/L (22-30); Chloride 101 mmol/L (98-107); Glucose 117 mg/dL (74-99); Non-African American GFR(CKD) >90 (>60 ml/min/1.73 sqM); Potassium 4.2 mmol/L (3.5-5.1); Sodium 134 mmol/L (137-145)
[2023-04-26 08:16] LABS: HCT 37.8 % (39.0-53.0); HGB 11.9 gm/dL (13.0-17.5); MCH 28.6 pg (25.0-35.0); MCHC 31.6 g/dL (31.0-37.0); MCV 90.7 fL (80.0-100.0); Mean Platelet Volume 7.5; Platelet Count 316 k/uL (150-450); RBC 4.17 m/uL (4.30-5.90); RDW 14.3 % (11.5-15.5); WBC 2.8 k/uL (3.8-10.6)
[2023-04-26 08:45] VITALS: RESP 18; TEMP 97.6
[2023-04-26] MEDS: HEPARIN SODIUM,PORCINE/PF 5,000 UNIT/0.5 ML SYRINGE SQ SCH (09:45)
[2023-04-26] MEDS: FOLIC ACID 1 MG TAB PO SCH (09:45)
[2023-04-26] MEDS: ISOSORBIDE MONONITRATE ER 30 MG TAB.ER.24H PO SCH (09:46)
[2023-04-26] MEDS: hydroCHLOROthiazide 25 MG TAB PO SCH (09:47)
[2023-04-26] MEDS: amLODIPine 10 MG TAB PO SCH (09:47)
[2023-04-26] MEDS: METOPROLOL TARTRATE 50 MG TAB PO SCH (09:47)
[2023-04-26] MEDS: PANTOPRAZOLE 40 MG TABLET PO SCH (09:48)
[2023-04-26] MEDS: LOSARTAN 50 MG TAB PO SCH (09:48)
[2023-04-26] MEDS: LIDOCAINE 5% PATCH TOPICAL SCH (09:56)
[2023-04-26] MEDS: ESCITALOPRAM 10 MG TAB PO SCH (10:51)
--- NOTE | 2023-04-26 12:30 | P.PN ---
Subjective Progress Note Date: 04/26/23 This is a 67-year-old male with a past medical history significant for coronary artery disease with previous stenting, hyperlipidemia, hypertension, chronic pain, former nicotine dependence, and medication noncompliance of the past. Patient previously followed in the office with Dr. Go but now sees a stretcher and drier at [facility]. We have been asked to see the patient in consultation for chest pain. Patient examined at the bedside. Patient presented to the hospital with a chief complaint of chest pain. The patient states he has been having chest pain for the past 2 days. He states the pain comes and goes. He states it is nonexertional and tenderness occur when he is watching TV. He reports the pain will go into his jaw on his left arm. He states the pain lasts for couple minutes and then it goes away on its own. He states he did not take any nitro at home because he doesn't have any and in the past this has given him a bad headache. The patient states that he has not seen his stretcher and drier at [place] in a long time. He states that he has not had any recent testing or p rocedures completed by his primary stretcher and drier either. Patient was found to have extreme elevated blood pressure on admission with systolics in the 180s and diastolics in the 130s. The patient states he checks his blood pressure at home and it tends to run on the higher side as well. He reports lower extremity edema for the past 2 days as well. * EKG reveals sinus tachycardia with no signs of acute ischemia * Chest xray negative for acute process * Laboratory data: WBC 2.3. Hemoglobin 12.5. Platelet count 288. D-dimer 0.79. Sodium 139. Potassium 3.8. BUN 2. Creatinine 0.60. Magnesium 1.7. Troponin negative 1. ProBNP 66. * Echocardiogram revealed ejection fraction of 60-65% * Patient underwent Lexiscan stress test in April 2021 which was negative for ischemia * Cardiac catheterization history: April 2019 revealing widely patent LAD at the site of stenting no more than 30-40% diagonal narrowing at the bifurcation stenting site, no significant disease in RCA or circumflex, normal filling pressures, no gradient. 04/25/2023 Patient seen and examined resting in bed after ambulating in the hallway. He continues to complain of constant chest discomfort with no variation. His rey thing is relatively stable but he continues to have some dyspnea on exertion. He remained somewhat tachycardic but better. Blood pressure remains elevated but has improved. 04/26/2023 Patient was seen and examined resting in bed. His blood pressure is reasonably well controlled at this time on current regimen. He continues to complain of constant chest discomfort, somewhat worse this morning, no aggravating or relieving factors. Breathing is stable. Objective - Vital Signs Vital signs: Vital Signs Temp 97.6 F 04/26/23 07:40 Pulse 98 04/26/23 07:40 Resp 18 04/26/23 07:40 BP 137/86 04/26/23 07:40 Pulse Ox 97 04/26/23 07:40 FiO2 Intake & Output 04/25/23 04/26/23 04/26/23 18:59 06:59 18:59 Intake Total 200 500 Balance 200 500 Intake: IV 20 Invasive Line 1 20 Oral 180 500 Other: Voiding Method Toilet Toilet # Voids 2 2 # Bowel Movements 2 - Exam VITAL SIGNS: Reviewed. GENERAL: Well-developed in no acute distress. HEENT: Head is normocephalic. Pupils are equal, round. Sclerae anicteric. Mucous membranes of the mouth are moist. Neck supple. No JVD or thyromegaly LUNGS: Respirations even and unlabored. Lungs essentially clear to auscultation bilaterally. HEART: Regular rate and rhythm. S1 and S2 heard. ABDOMEN: Soft. Nondistended. Nontender. EXTREMITIES: Normal range of motion. No clubbing or cyanosis. Peripheral pulses intact. Trace lower extremity edema NEUROLOGIC: Awake and alert. Oriented x 3. - Labs CBC & Chem 7: 04/26/23 07:48 04/26/23 06:21 Labs: Abnormal Lab Results - Last 24 Hours (Table) 04/26/23 04/26/23 Range/Units 06:21 07:48 WBC 2.8 L (3.8-10.6) k/uL RBC 4.17 L (4.30-5.90) m/uL Hgb 11.9 L (13.0-17.5) gm/dL Hct 37.8 L (39.0-53.0) % Sodium 134 L (137-145) mmol/L Creatinine 0.60 L (0.66-1.25) mg/dL Glucose 117 H (74-99) mg/dL Assessment and Plan Assessment: Chest pain, troponins negative 3 Hypertension, uncontrolled, improving Lower extremity edema, may be secondary to venous insufficiency, BNP normal and chest x-ray negative for fluid overload Coronary artery disease with previous stenting of the LAD Bicuspid aortic valve Hyperlipidemia Chronic pain History of medication noncompliance Former nicotine dependence Plan: From cardiology's perspective medications were reviewed and we will continue the same. Further adjustments to his antihypertensives can be done as an outpatient. Patient advised to set up an appointment soon with his primary stretcher and drier. Would recommend outpatient stress testing once blood pressure has stabilized. PUBLIC HEALTH TEACHER note has been reviewed, I agree with a documented findings and plan of care. Patient was seen and examined.
--- NOTE | 2023-04-26 12:48 | P.DS ---
Providers Date of admission: 04/23/23 06:29 Expected date of discharge: 04/26/23 Attending physician: Joselito Ng Consults: 04/23/23 06:29 Consult Physician Routine Consulting Provider: [facility] Consult Reason/Comments: CP r/o ACS, possible new onset CHF Do you want consulting provider notified?: Yes, Notify in am 04/24/23 14:49 Consult Physician Urgent Consulting Provider: Rolando Silva Consult Reason/Comments: refrractory hypertension Do you want consulting provider notified?: Yes Primary care physician: Stated None Hospital Course: 67 years old male with multiple medical problems including Coronary Artery Disease status post stent, COPD, Deep Vein Thrombosis (DVT), GERD/Reflux, Hyperlipidemia, Hypertension, Osteoarthritis hypothyroidism, PUD, chronic low back pain, c numbness/tingling bilateral lower legs, bilateral past R hand fracture, arthritis multiple joints, hyperthyroid, sinus problems. Patient follow up with scientific aide Dr. Evans and Howie troy, he says he does not have PCP here in [place] and he follow-up with a pain doctor at [place] as well. He has chronic back pain and he had back surgery and chronic left-sided weakness as he states. He comes today because of that side chest pain radiating to the left arm and left jaw since yesterday about 8/10 in severity, nonspecific with no relieving or precipitating factors, no exertional dyspnea and he has bilateral leg swelling. He denies any GI urinary or neurological symptoms other than above. He denies smoking alcohol all orifices drugs. Patient has stable vitals, blood pressure is slightly elevated 170/113 Wbc are 2.3, hemoglobin 12.5. INR 0.9 BMP and liver enzymes are unremarkable EKG showing sinus tachycardia at [address]-T changes Chest x-ray: No acute process. Patient was given labetalol 1 maps was checked , he is on Percocet 10 mg on 120 tablets for 30 day felt on 04/16/2023. Also was given 666 day of oral Dilaudid on 04/10/23 04/24/2023 Patient keep complaining of from chest pain which is most likely musculoskeletal in nature. 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 CTA of the chest is negative for PE. Patient was asked was discontinued yesterday, his leg swelling is significantly improved. However his blood pressure still significantly elevated 191/93 and heart rate still elevated 120. His blood pressure medications were increased today Norvasc up to 10 mg, losartan 100 mg and metoprolol up to 50 mg Case was discussed with scientific aide team we will keep monitoring him for now. We'll consult nephrology for uncontrolled blood pressure 04/25 Blood pressure eleavted, c/o pain Generalized 04/26 Blood pressure better controlled, Requesting IV pain meds, Counselled Okay to DC by cardiology Follow up with Nephrology GENERAL: The patient is alert and oriented x3, not in any acute distress. Well developed, well nourished. HEENT: Pupils are round and equally reacting to light. EOMI. No scleral icterus. No conjunctival pallor. Normocephalic, atraumatic. No pharyngeal erythema. No thyromegaly. CARDIOVASCULAR: S1 and S2 present. No murmurs, rubs, or gallops. PULMONARY: Chest is clear to auscultation, no wheezing or crackles. ABDOMEN: Soft, nontender, nondistended, normoactive bowel sounds. No palpable organomegaly. MUSCULOSKELETAL: No joint swelling or deformity. EXTREMITIES: No cyanosis, clubbing, or pedal edema. NEUROLOGICAL: Gross neurological examination did not reveal any focal deficits. SKIN: No rashes. no petechiae. Assessment: * Refractory hypertension * musculoskeletal pain * bilateral leg swelling most likely related to venous stasis, resolved significantly * History of coronary artery disease status post stenting * Chronic back pain with chronic left-sided weakness as patient states. Patient along with pain clinic * Hypertension, uncontrolled on admission * Hyperlipidemia * Diabetes mellitus * History of GERD * Hypothyroidism * History of osteoarthritis Plan: he was counseled to call health insurance provider and trying to nearby PCP to call within 1 week after discharge, follow up pain clinic Follow up with Nephrology Cardiology consulted Continue with losartan 100 mg, metoprolol 50 mg and Norvasc 10 mg. Consulted nephrology , work up for Pheochromocytoma ordered Labs and medication were reviewed. Patient Condition at Discharge: Stable Plan - Discharge Summary Discharge Rx Participant: No New Discharge Prescriptions: New Losartan [Cozaar] 100 mg PO DAILY #30 tab hydroCHLOROthiazide [Hydrodiuril] 25 mg PO DAILY #30 tab Atorvastatin [Lipitor] 20 mg PO HS #30 tab Metoprolol Tartrate [Lopressor] 50 mg PO BID #30 tab amLODIPine [Norvasc] 10 mg PO DAILY #30 tab Continue tiZANidine [Zanaflex] 4 mg PO HS oxyCODONE-APAP 10-325MG [Percocet 10-325 mg] 1 tab PO Q6H Folic Acid 1 mg PO DAILY Isosorbide Mononitrate ER [Imdur] 30 mg PO DAILY Pantoprazole Sodium [Protonix] 40 mg PO DAILY Escitalopram [Lexapro] 10 mg PO DAILY Aspirin EC [Ecotrin Low Dose] 81 mg PO DAILY Discontinued amLODIPine [Norvasc] 5 mg PO DAILY Discharge Medication List tiZANidine [Zanaflex] 4 mg PO HS 02/26/18 [History] oxyCODONE-APAP 10-325MG [Percocet 10-325 mg] 1 tab PO Q6H 01/02/20 [History] Aspirin EC [Ecotrin Low Dose] 81 mg PO DAILY 04/23/23 [History] Escitalopram [Lexapro] 10 mg PO DAILY 04/23/23 [History] Folic Acid 1 mg PO DAILY 04/23/23 [History] Isosorbide Mononitrate ER [Imdur] 30 mg PO DAILY 04/23/23 [History] Pantoprazole Sodium [Protonix] 40 mg PO DAILY 04/23/23 [History] Atorvastatin [Lipitor] 20 mg PO HS #30 tab 04/26/23 [Rx] Losartan [Cozaar] 100 mg PO DAILY #30 tab 04/26/23 [Rx] Metoprolol Tartrate [Lopressor] 50 mg PO BID #30 tab 04/26/23 [Rx] amLODIPine [Norvasc] 10 mg PO DAILY #30 tab 04/26/23 [Rx] hydroCHLOROthiazide [Hydrodiuril] 25 mg PO DAILY #30 tab 04/26/23 [Rx] Follow up Appointment(s)/Referral(s): None,Stated [Primary Care Provider] - 1-2 days Rolando Silva DO [STAFF PHYSICIAN] - 1 Week Discharge Disposition: HOME SELF-CARE
[2023-04-26 14:16] VITALS: BP 162/94; PULSE 101
== END 2023-04-26 13:54 | disposition home or self-care (01) ==
LOC: EC 04:31 → 3SCARD 06:29 → 5NMEDONC 04-25 23:13
PROVIDERS: ADMIT Hospitalist; ATTEND Hospitalist
DX: I10 Essential (primary) hypertension (principal); M79.89 Other specified soft tissue disorders; I25.10 Atherosclerotic heart disease of native coronary artery without angina pectoris; R68.84 Jaw pain; R79.1 Abnormal coagulation profile; Z95.5 Presence of coronary angioplasty implant and graft; Q23.1 Congenital insufficiency of aortic valve; G89.4 Chronic pain syndrome; E78.5 Hyperlipidemia, unspecified; E11.9 Type 2 diabetes mellitus without complications; E03.9 Hypothyroidism, unspecified; M19.90 Unspecified osteoarthritis, unspecified site; Z87.891 Personal history of nicotine dependence; J44.9 Chronic obstructive pulmonary disease, unspecified; Z86.718 Personal history of other venous thrombosis and embolism; K21.9 Gastro-esophageal reflux disease without esophagitis; K44.9 Diaphragmatic hernia without obstruction or gangrene; Z90.49 Acquired absence of other specified parts of digestive tract; Z98.890 Other specified postprocedural states; Z98.41 Cataract extraction status, right eye; Z82.49 Family history of ischemic heart disease and other diseases of the circulatory system; Z80.6 Family history of leukemia; Z83.6 Family history of other diseases of the respiratory system; Z79.82 Long term (current) use of aspirin; Z79.891 Long term (current) use of opiate analgesic; Z79.899 Other long term (current) drug therapy; Z88.6 Allergy status to analgesic agent; Z88.5 Allergy status to narcotic agent
CPT/HCPCS: 96376; 96372 ×5; 96375 ×2; 96374; 99285; 36415; 93005; 93306; 85379; 83880; 80061; 80053; 80048 ×3; 82088; 83690; 83735; 84484 ×2; 85025; 85027; 85610; 85730; 71046; 93970; 71275; G0378 ×5; J2270 ×2; J1940; J2405; Q9967; J1644 ×4

== ENCOUNTER 2023-04-29 11:40 | Emergency (ER) | payer MEDICARE, OTHER ==
[2023-04-29 11:58] VITALS: BP 189/131; PULSE 122; RESP 22; TEMP 98
[2023-04-29] MEDS ORDERED: ONDANSETRON ODT 4 MG TAB PO STA (12:01)
[2023-04-29] MEDS ORDERED: HYDROmorphone 0.5 MG/0.5 ML SYRINGE IM STA (12:01)
[2023-04-29] MEDS ORDERED: diphenhydrAMINE 50 MG/ML 1 ML VIAL IM STA (12:01)
--- NOTE | 2023-04-29 12:02 | ED ---
Headache HPI - General Chief Complaint: Headache Stated Complaint: migraine Time Seen by Provider: 04/29/23 12:00 Source: patient, RN notes reviewed Mode of arrival: ambulatory Limitations: no limitations - History of Present Illness Initial Comments: 67-year-old male presents emergency Department with chief complaint of a headache. This is an ongoing chronic issue. Patient states worse today. Denies any new symptoms denies fevers or chills he has not taken anything prior arrival he doesn't to some nausea. - Related Data Home Medications Medication Instructions Recorded Confirmed tiZANidine [Zanaflex] 4 mg PO HS 02/26/18 04/23/23 oxyCODONE-APAP 10-325MG [Percocet 1 tab PO Q6H 01/02/20 04/23/23 10-325 mg] Aspirin EC [Ecotrin Low Dose] 81 mg PO DAILY 04/23/23 04/23/23 Escitalopram [Lexapro] 10 mg PO DAILY 04/23/23 04/23/23 Folic Acid 1 mg PO DAILY 04/23/23 04/23/23 Isosorbide Mononitrate ER [Imdur] 30 mg PO DAILY 04/23/23 04/23/23 Pantoprazole Sodium [Protonix] 40 mg PO DAILY 04/23/23 04/23/23 Previous Rx's Medication Instructions Recorded Atorvastatin [Lipitor] 20 mg PO HS #30 tab 04/26/23 Losartan [Cozaar] 100 mg PO DAILY #30 tab 04/26/23 Metoprolol Tartrate [Lopressor] 50 mg PO BID #30 tab 04/26/23 amLODIPine [Norvasc] 10 mg PO DAILY #30 tab 04/26/23 hydroCHLOROthiazide [Hydrodiuril] 25 mg PO DAILY #30 tab 04/26/23 Allergies Allergy/AdvReac Type Severity Reaction Status Date / Time codeine Allergy Itching Verified 04/29/23 11:57 ibuprofen [From Motrin] Allergy Rash/Hives Verified 04/29/23 11:57 ketorolac tromethamine Allergy Rash/Hives Verified 04/29/23 11:57 [From Toradol] Review of Systems ROS Statement: Those systems with pertinent positive or pertinent negative responses have been documented in the HPI. ROS Other: All systems not noted in ROS Statement are negative. Past Medical History Past Medical History: Coronary Artery Disease (CAD), Chest Pain / Angina, COPD, Deep Vein Thrombosis (DVT), GERD/Reflux, Hyperlipidemia, Hypertension, Osteoarthritis (OA), Thyroid Disorder Additional Past Medical History / Comment(s): Occasional palpitations, gastritis, small hiatal hernia, diverticular dx, pt states years ago he had PUD, chronic low back pain, chronic pain syndrome, migraines, DVT L arm, numbness/tingling bilateral lower legs, bilateral past R hand fracture, arthritis multiple joints, hyperthyroid, sinus problems. History of Any Multi-Drug Resistant Organisms: None Reported Past Surgical History: Back Surgery, Cholecystectomy, Heart Catheterization With Stent, Orthopedic Surgery Additional Past Surgical History / Comment(s): EGDs/colonoscopies, multiple low back surgeries, bilateral arm and bilateral thigh surgeries for brown recluse spider bites with infection, morphine pain pump insertion and removal due to infection, PCI with stents, L rotator cuff repair, L knee arthroscopy, cervical fusion/cage, R cataract removal. 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 He lived to be 82 yrs old. Mother History Unknown: Yes Family Medical History: Hypertension, Myocardial Infarction (HI) Additional Family Medical History / Comment(s): Mother of a HI at the age of 55yrs. Brother(s) Family Medical History: Cancer, COPD Additional Family Medical History / Comment(s): Leukemia General Exam Limitations: no limitations General appearance: alert, in no apparent distress Head exam: Present: atraumatic, normocephalic, normal inspection Eye exam: Present: normal appearance, PERRL, EOMI. Absent: scleral icterus, conjunctival injection, periorbital swelling ENT exam: Present: normal exam, normal oropharynx, mucous membranes moist Neck exam: Present: normal inspection, full ROM. Absent: tenderness, meningismus, lymphadenopathy Respiratory exam: Present: normal lung sounds bilaterally. Absent: respiratory distress, wheezes, rales, rhonchi, stridor Cardiovascular Exam: Present: regular rate, normal rhythm, normal heart sounds. Absent: systolic murmur, diastolic murmur, rubs, gallop, clicks Neurological exam: Present: alert, oriented X3, CN II-XII intact, reflexes normal. Absent: motor sensory deficit Course Vital Signs 04/29/23 11:56 Temperature 98 F Pulse Rate 122 H Respiratory 22 Rate Blood Pressure 189/131 O2 Sat by Pulse 99 Oximetry Medical Decision Making - Medical Decision Making Was pt. sent in by a medical professional or institution (, PA, DISPLAY TRIMMER, urgent care, hospital, or intermediate...) When possible be specific @ -No Did you speak to anyone other than the patient for history (EMS, parent, family, police, friend...)? What history was obtained from this source @ -No Did you review nursing and triage notes (agree or disagree)? Why? @ -I reviewed and agree with nursing and triage notes Were old charts reviewed (outside hosp., previous admission, EMS record, old EKG, old radiological studies, urgent care reports/EKG's, intermediate records)? Report findings @ -Reviewed prior laboratory studies and imaging Differential Diagnosis (chest pain, altered mental status, abdominal pain women, abdominal pain men, vaginal bleeding, weakness, fever, dyspnea, syncope, headache, dizziness, GI bleed, back pain, seizure, CVA, palpatations, mental health, musculoskeletal)? @ -Differential Headache: Migraine, tension, cluster, carbon monoxide, central venous thrombosis, pension karma temporal arteritis, acute closure glaucoma, intercranial hemorrhage, mastoiditis, sinusitis, head injury, this is not meant to be an all-inclusive list.le EKG interpreted by me (3pts min.). @ -None X-rays interpreted by me (1pt min.). @ -None done CT interpreted by me (1pt min.). @ -None done U/S interpreted by me (1pt. min.). @ -None done What testing was considered but not performed or refused? (CT, X-rays, U/S, labs)? Why? @ -None What meds were considered but not given or refused? Why? @ -None Did you discuss the management of the patient with other professionals (professionals i.e. , FAITH, DISPLAY TRIMMER, lab, RT, psych nurse, clinical social work aide, manager of learning, teacher, accounting officer, director of casework services)? Give summary @ -No Was smoking cessation discussed for >3mins.? @ -No Was critical care preformed (if so, how long)? @ -No Were there social determinants of health that impacted care today? How? (Homelessness, low income, unemployed, alcoholism, drug addiction, transportation, low edu. Level, literacy, decrease access to med. care, detention, rehab)? @ -No Was there de-escalation of care discussed even if they declined (Discuss DNR or withdrawal of care, Hospice)? DNR status @ -No What co-morbidities impacted this encounter? (DM, HTN, Smoking, COPD, CAD, Cancer, CVA, ARF, Chemo, Hep., AIDS, mental health diagnosis, sleep apnea, morbid obesity)? @ -Chronic pain, hypertension Was patient admitted / discharged? Hospital course, mention meds given and route, prescriptions, significant lab abnormalities, going to OR and other pertinent info. @ -Discharge patient provided pain relief patient had typical headache for himself. No neurological symptoms patient discharged in stable condition. Undiagnosed new problem with uncertain prognosis? @ -No Drug Therapy requiring intensive monitoring for toxicity (Heparin, Nitro, Insulin, Cardizem)? @ -No Were any procedures done? @ -No Diagnosis/symptom? @ -Headache Acute, or Chronic, or Acute on Chronic? @ -Acute on chronic Uncomplicated (without systemic symptoms) or Complicated (systemic symptoms)? @ -Uncomplicated Side effects of treatment? @ -No Exacerbation, Progression, or Severe Exacerbation? @ -No Poses a threat to life or bodily function? How? (Chest pain, USA, HI, pneumonia, PE, COPD, DKA, ARF, appy, cholecystitis, CVA, Diverticulitis, Homicidal, Suicidal, threat to staff... and all critical care pts) @ -No Disposition Clinical Impression: Headache Disposition: HOME SELF-CARE Condition: Stable Instructions (If sedation given, give patient instructions): Acute Headache (ED) Additional Instructions: Please return to the Emergency Department if symptoms worsen or any other concerns. Is patient prescribed a controlled substance at d/c from ED?: No Referrals: None,Stated [Primary Care Provider] - 1-2 days Time of Disposition: 12:02
== END 2023-04-29 12:25 | disposition home or self-care (01) ==
LOC: EC 11:40
DX: R51.9 Headache, unspecified (principal); I25.10 Atherosclerotic heart disease of native coronary artery without angina pectoris; I10 Essential (primary) hypertension; J44.9 Chronic obstructive pulmonary disease, unspecified; E78.5 Hyperlipidemia, unspecified; K21.9 Gastro-esophageal reflux disease without esophagitis; Z86.718 Personal history of other venous thrombosis and embolism; Z87.891 Personal history of nicotine dependence; Z88.5 Allergy status to narcotic agent; Z88.6 Allergy status to analgesic agent; Z88.8 Allergy status to other drugs, medicaments and biological substances; Z79.82 Long term (current) use of aspirin; Z79.899 Other long term (current) drug therapy
CPT/HCPCS: 99284; 96372 ×2; J1200; J1170

== ENCOUNTER 2023-05-13 11:08 | Emergency (ER) | payer MEDICARE, OTHER ==
--- NOTE | 2023-05-13 12:37 | ED ---
Headache HPI - General Source: patient, RN notes reviewed Mode of arrival: ambulatory Limitations: no limitations - History of Present Illness MD Complaint: headache Onset/Timin -: days(s) <Airam Romo - Last Filed: 05/18/23 19:22> - History of Present Illness Onset Description: gradual Location: frontal, temporal Severity: severe Severity scale (1-10): 8 Quality: aching, throbbing Consistency: constant Improves With: nothing Worsens With: none Context: occurred at rest, occurred with exertion/activity, recent URI, other (History of migraine headache) Associated Symptoms: nausea Other Symptoms: malaise Treatments Prior to Arrival: none <Haresh Arellano - Last Filed: 05/20/23 20:45> - General Chief Complaint: Headache Stated Complaint: headache Time Seen by Provider: 05/13/23 12:35 - History of Present Illness Initial Comments: This is a 67-year-old male who presents to the emergency department for a headache. Reports associated frontal head pressure and nasal drainage. Pain started 3 days ago. He is taking Tylenol with no relief in symptoms. He has a history of chronic headaches. Would not describe this as the worst headache of his life. (Airam Romo) This is a 67-year-old male to the emergency department for evaluation patient presents today for evaluation regards to headache nasal drainage had pressure migraine headache since for 3 days worsening. Patient's life is complicated with recent passing of his causing him increased stress denying any drug abuse denying any homicidal or suicidal thoughts. (Haresh Arellano) - Related Data Home Medications Medication Instructions Recorded Confirmed tiZANidine [Zanaflex] 4 mg PO HS 02/26/18 04/23/23 oxyCODONE-APAP 10-325MG [Percocet 1 tab PO Q6H 01/02/20 04/23/23 10-325 mg] Aspirin EC [Ecotrin Low Dose] 81 mg PO DAILY 04/23/23 04/23/23 Escitalopram [Lexapro] 10 mg PO DAILY 04/23/23 04/23/23 Folic Acid 1 mg PO DAILY 04/23/23 04/23/23 Isosorbide Mononitrate ER [Imdur] 30 mg PO DAILY 04/23/23 04/23/23 Pantoprazole Sodium [Protonix] 40 mg PO DAILY 04/23/23 04/23/23 Previous Rx's Medication Instructions Recorded Atorvastatin [Lipitor] 20 mg PO HS #30 tab 04/26/23 Losartan [Cozaar] 100 mg PO DAILY #30 tab 04/26/23 Metoprolol Tartrate [Lopressor] 50 mg PO BID #30 tab 04/26/23 amLODIPine [Norvasc] 10 mg PO DAILY #30 tab 04/26/23 hydroCHLOROthiazide [Hydrodiuril] 25 mg PO DAILY #30 tab 04/26/23 Allergies Allergy/AdvReac Type Severity Reaction Status Date / Time codeine Allergy Itching Verified 05/20/23 11:46 ibuprofen [From Motrin] Allergy Rash/Hives Verified 05/20/23 11:46 ketorolac tromethamine Allergy Rash/Hives Verified 05/20/23 11:46 [From Toradol] Review of Systems ROS Other: All systems not noted in ROS Statement are negative. <Airam Romo - Last Filed: 05/18/23 19:22> ROS Other: All systems not noted in ROS Statement are negative. <Haresh Arellano - Last Filed: 05/20/23 20:45> ROS Statement: Those systems with pertinent positive or pertinent negative responses have been documented in the HPI. Past Medical History Past Medical History: Coronary Artery Disease (CAD), Chest Pain / Angina, COPD, Deep Vein Thrombosis (DVT), GERD/Reflux, Hyperlipidemia, Hypertension, Osteoarthritis (OA), Thyroid Disorder Additional Past Medical History / Comment(s): Occasional palpitations, gastritis, small hiatal hernia, diverticular dx, pt states years ago he had PUD, chronic low back pain, chronic pain syndrome, migraines, DVT L arm, numbness/tingling bilateral lower legs, bilateral past R hand fracture, arthritis multiple joints, hyperthyroid, sinus problems. History of Any Multi-Drug Resistant Organisms: None Reported Past Surgical History: Back Surgery, Cholecystectomy, Heart Catheterization With Stent, Orthopedic Surgery Additional Past Surgical History / Comment(s): EGDs/colonoscopies, multiple low back surgeries, bilateral arm and bilateral thigh surgeries for brown recluse spider bites with infection, morphine pain pump insertion and removal due to infection, PCI with stents, L rotator cuff repair, L knee arthroscopy, cervical fusion/cage, R cataract removal. 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 He lived to be 82 yrs old. Mother History Unknown: Yes Family Medical History: Hypertension, Myocardial Infarction ([place]) Additional Family Medical History / Comment(s): Mother of a [place] at the age of 55yrs. Brother(s) Family Medical History: Cancer, COPD Additional Family Medical History / Comment(s): Leukemia <Airam Romo - Last Filed: 05/18/23 19:22> General Exam Limitations: no limitations <Airam Romo - Last Filed: 05/18/23 19:22> General appearance: alert, in no apparent distress, anxious Head exam: Present: atraumatic, normocephalic, normal inspection Eye exam: Present: normal appearance, PERRL, EOMI. Absent: scleral icterus, conjunctival injection, periorbital swelling ENT exam: Present: normal exam, mucous membranes moist Neck exam: Present: normal inspection. Absent: tenderness, meningismus, lymphadenopathy Respiratory exam: Present: normal lung sounds bilaterally. Absent: respiratory distress, wheezes, rales, rhonchi, stridor Cardiovascular Exam: Present: regular rate, normal rhythm, normal heart sounds. Absent: systolic murmur, diastolic murmur, rubs, gallop, clicks GI/Abdominal exam: Present: soft, normal bowel sounds. Absent: distended, tenderness, guarding, rebound, rigid Extremities exam: Present: normal inspection, full ROM, normal capillary refill. Absent: tenderness, pedal edema, joint swelling, calf tenderness Back exam: Present: normal inspection Neurological exam: Present: alert, oriented X3, CN II-XII intact Psychiatric exam: Present: normal affect, normal mood Skin exam: Present: warm, dry, intact, normal color. Absent: rash <Haresh Arellano - Last Filed: 05/20/23 20:45> - General Exam Comments Initial Comments: Visual Physical Exam Vital signs reviewed General: Well-appearing, nontoxic, no acute distress. Head: Normocephalic, atraumatic Eyes: PERRLA, EOMI ENT: Airway patent Chest: Nonlabored breathing Skin: No visual rash, normal skin tone Neuro: Alert and oriented 3 Musculoskeletal: No gross abnormalities (Airam Romo) Course <Haresh Arellano - Last Filed: 05/20/23 20:45> Vital Signs 05/13/23 05/13/23 11:25 14:01 Temperature 98 F 98.1 F Pulse Rate 100 89 Respiratory 20 18 Rate Blood Pressure 179/88 172/88 O2 Sat by Pulse 97 98 Oximetry - Reevaluation(s) Reevaluation #1: 05/13/23 13:50 Medical record is reviewed (Haresh Arellano) Reevaluation #2: 05/13/23 13:50 Patient symptoms are improved (Haresh Arellano) Reevaluation #3: 05/13/23 13:50 Patient informed of results and questions answered (Haresh Arellano) Reevaluation #4: 05/13/23 13:50 Was pt. sent in by a medical professional or institution? @ -no Did you speak to anyone other than the patient for history? @ -no Did you review nursing and triage notes? @ -agree Were old charts reviewed? @ -no Differential Diagnosis? @ -prior EKG interpreted by me (3pts min.)? @ -no X-rays interpreted by me (1pt min.)? @ -no CT interpreted by me (1pt min.)? @ -no U/S interpreted by me (1pt. min.)? @ -no What testing was considered but not performed? (CT, X-rays, U/S, labs)? Why? @ -no What meds were considered but not given? Why? @ -no Did you discuss the management of the patient with other professionals? @ -no Did you reconcile home meds? @ -no Was smoking cessation discussed for >3mins.? @ -no Was critical care preformed (if so, how long)? @ -no Were there social determinants of health that impacted care today? How? (Homelessness, low income, unemployed, alcoholism, drug addiction, transportation, low edu. Level, literacy, decrease access to med. care, senior care, rehab)? @ -no Was there de-escalation of care discussed even if they declined? (Discuss DNR or withdrawal of care, Hospice)? @ -no What co-morbidities impacted this encounter? (DM, HTN, Smoking, COPD, CAD, Cancer, CVA, Hep., AIDS, mental health diagnosis, sleep apnea, morbid obesity)? @ -none Was patient admitted / discharged? @ - Undiagnosed new problem with uncertain prognosis? @ -no Drug Therapy requiring intensive monitoring for toxicity (Heparin, Nitro, Insulin, Cardizem)? @ -no Were any procedures done? @ -no Diagnosis/symptom? @ -67 male with acute on chronic headache headache resolved here in the ER patient feels improved. Patient feels good for discharge home, we'll continue to follow-up with counselor regarding grief and loss Discharge Acute, or Chronic, or Acute on Chronic? @ -no Uncomplicated (without systemic symptoms) or Complicated (systemic symptoms)? @ -uncomplicated Side effects of treatment? @ -no Exacerbation, Progression, or Severe Exacerbation] @ -no Poses a threat to life or bodily function? @ -no (Haresh Arellano) Reevaluation #5: 05/13/23 13:51 Differential Headache: Migraine, tension, cluster, carbon monoxide, central venous thrombosis, pension karma temporal arteritis, acute closure glaucoma, intercranial hemorrhage, mastoiditis, sinusitis, head injury, this is not meant to be an all-inclusive list. (Haresh Arellano) Medical Decision Making <Haresh Arellano - Last Filed: 05/20/23 20:45> - Medical Decision Making 67 male with acute on chronic headache headache resolved here in the ER patient feels improved. Patient feels good for discharge home, we'll continue to follow-up with counselor regarding grief and loss (Haresh Arellano) - Lab Data Lab Results 05/13/23 Range/Units 12:34 Influenza Type A (PCR) Not Detected (Not Detectd) Influenza Type B (PCR) Not Detected (Not Detectd) RSV (PCR) Not Detected (Not Detectd) SARS-CoV-2 (PCR) Not Detected (Not Detectd) Disposition Is patient prescribed a controlled substance at d/c from ED?: No <Airam Romo - Last Filed: 05/18/23 19:22> Time of Disposition: 13:50 <Haresh Arellano - Last Filed: 05/20/23 20:45> Clinical Impression: Intractable headache, Vomiting, Nausea, Migraine Disposition: HOME SELF-CARE Condition: Fair Instructions (If sedation given, give patient instructions): Acute Headache (ED) Referrals: None,Stated [Primary Care Provider] - 1-2 days
[2023-05-13] MEDS ORDERED: HYDROmorphone 1 MG/ML 1 ML SYRINGE IM STA (13:37)
[2023-05-13] MEDS ORDERED: diphenhydrAMINE 50 MG CAP PO STA (13:37)
[2023-05-13] MEDS ORDERED: PROCHLORPERAZINE 10 MG TAB PO STA (13:37)
[2023-05-13 14:06] VITALS: BP 172/88; PULSE 89; RESP 18; TEMP 98.1
== END 2023-05-13 14:01 | disposition home or self-care (01) ==
LOC: EC 11:08
DX: G43.909 Migraine, unspecified, not intractable, without status migrainosus (principal); R11.2 Nausea with vomiting, unspecified; I25.10 Atherosclerotic heart disease of native coronary artery without angina pectoris; J44.9 Chronic obstructive pulmonary disease, unspecified; I10 Essential (primary) hypertension; K21.9 Gastro-esophageal reflux disease without esophagitis; M19.90 Unspecified osteoarthritis, unspecified site; Z79.82 Long term (current) use of aspirin; Z79.899 Other long term (current) drug therapy; Z79.1 Long term (current) use of non-steroidal anti-inflammatories (NSAID); Z87.891 Personal history of nicotine dependence; Z88.5 Allergy status to narcotic agent; Z88.6 Allergy status to analgesic agent; Z88.8 Allergy status to other drugs, medicaments and biological substances; Z20.822 Contact with and (suspected) exposure to COVID-19
CPT/HCPCS: 87636; 99284; 96372; S0183; J1170

== ENCOUNTER 2023-05-20 11:38 | Emergency (ER) | payer MEDICARE, OTHER ==
[2023-05-20] MEDS ORDERED: HYDROmorphone 1 MG/ML 1 ML SYRINGE IM STA (12:16)
--- NOTE | 2023-05-20 12:25 | ED ---
General Adult HPI - General Chief complaint: Extremity Problem,Nontraumatic Stated complaint: L Knee Pain Time Seen by Provider: 05/20/23 12:08 Source: patient, RN notes reviewed, old records reviewed Mode of arrival: ambulatory Limitations: no limitations - History of Present Illness Initial comments: 67-year-old male presenting with chronic knee pain. Patient is followed with orthopedics and he is scheduled for knee replacement in early June. He is currently taking Percocet for chronic pain. He denies any recent injury. Denies fever. States the pain is chronic and unchanged in nature. - Related Data Home Medications Medication Instructions Recorded Confirmed tiZANidine [Zanaflex] 4 mg PO HS 02/26/18 04/23/23 oxyCODONE-APAP 10-325MG [Percocet 1 tab PO Q6H 01/02/20 04/23/23 10-325 mg] Aspirin EC [Ecotrin Low Dose] 81 mg PO DAILY 04/23/23 04/23/23 Escitalopram [Lexapro] 10 mg PO DAILY 04/23/23 04/23/23 Folic Acid 1 mg PO DAILY 04/23/23 04/23/23 Isosorbide Mononitrate ER [Imdur] 30 mg PO DAILY 04/23/23 04/23/23 Pantoprazole Sodium [Protonix] 40 mg PO DAILY 04/23/23 04/23/23 Previous Rx's Medication Instructions Recorded Atorvastatin [Lipitor] 20 mg PO HS #30 tab 04/26/23 Losartan [Cozaar] 100 mg PO DAILY #30 tab 04/26/23 Metoprolol Tartrate [Lopressor] 50 mg PO BID #30 tab 04/26/23 amLODIPine [Norvasc] 10 mg PO DAILY #30 tab 04/26/23 hydroCHLOROthiazide [Hydrodiuril] 25 mg PO DAILY #30 tab 04/26/23 Allergies Allergy/AdvReac Type Severity Reaction Status Date / Time codeine Allergy Itching Verified 05/21/23 14:28 ibuprofen [From Motrin] Allergy Rash/Hives Verified 05/21/23 14:28 ketorolac tromethamine Allergy Rash/Hives Verified 05/21/23 14:28 [From Toradol] Review of Systems ROS Statement: Those systems with pertinent positive or pertinent negative responses have been documented in the HPI. ROS Other: All systems not noted in ROS Statement are negative. Past Medical History Past Medical History: Coronary Artery Disease (CAD), Chest Pain / Angina, COPD, Deep Vein Thrombosis (DVT), GERD/Reflux, Hyperlipidemia, Hypertension, Osteoarthritis (OA), Thyroid Disorder Additional Past Medical History / Comment(s): Occasional palpitations, gastritis, small hiatal hernia, diverticular dx, pt states years ago he had PUD, chronic low back pain, chronic pain syndrome, migraines, DVT L arm, numbness/tingling bilateral lower legs, bilateral past R hand fracture, arthritis multiple joints, hyperthyroid, sinus problems. History of Any Multi-Drug Resistant Organisms: None Reported Past Surgical History: Back Surgery, Cholecystectomy, Heart Catheterization With Stent, Orthopedic Surgery Additional Past Surgical History / Comment(s): EGDs/colonoscopies, multiple low back surgeries, bilateral arm and bilateral thigh surgeries for brown recluse spider bites with infection, morphine pain pump insertion and removal due to infection, PCI with stents, L rotator cuff repair, L knee arthroscopy, cervical fusion/cage, R cataract removal. 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 He lived to be 82 yrs old. Mother History Unknown: Yes Family Medical History: Hypertension, Myocardial Infarction ([place]) Additional Family Medical History / Comment(s): Mother of a [place] at the age of 55yrs. Brother(s) Family Medical History: Cancer, COPD Additional Family Medical History / Comment(s): Leukemia General Exam Limitations: no limitations General appearance: alert, in no apparent distress Head exam: Present: atraumatic, normocephalic Eye exam: Present: normal appearance, PERRL ENT exam: Present: normal exam Neck exam: Present: normal inspection. Absent: tenderness, meningismus Respiratory exam: Present: normal lung sounds bilaterally. Absent: respiratory distress, wheezes Cardiovascular Exam: Present: regular rate, normal rhythm GI/Abdominal exam: Present: soft. Absent: distended, tenderness, guarding Extremities exam: Present: other (Pain with ambulation). Absent: joint swelling Neurological exam: Present: alert, oriented X3 Psychiatric exam: Present: normal affect, normal mood Skin exam: Present: warm, dry, intact. Absent: cyanosis, diaphoretic Course Vital Signs 05/20/23 05/20/23 11:43 12:30 Temperature 97.6 F 98.7 F Pulse Rate 109 H 67 Respiratory 18 16 Rate Blood Pressure 178/100 124/70 O2 Sat by Pulse 97 99 Oximetry Medical Decision Making - Medical Decision Making Was pt. sent in by a medical professional or institution (, PA, ADDICTION MEDICINE PHYSICIAN, urgent care, hospital, or fpc...) When possible be specific @ -No Did you speak to anyone other than the patient for history (EMS, parent, family, police, friend...)? What history was obtained from this source @ -No Did you review nursing and triage notes (agree or disagree)? Why? @ -I reviewed and agree with nursing and triage notes Were old charts reviewed (outside hosp., previous admission, EMS record, old EKG, old radiological studies, urgent care reports/EKG's, fpc records)? Report findings @ -No old charts were reviewed Differential Diagnosis (chest pain, altered mental status, abdominal pain women, abdominal pain men, vaginal bleeding, weakness, fever, dyspnea, syncope, headache, dizziness, GI bleed, back pain, seizure, CVA, palpatations, mental health, musculoskeletal)? @ -Differential Musculoskeletal Muscular strain, contusion, ligament sprain, fracture, arthritis, septic arthritis, bursitis, cellulitis, muscle spasm, nerve compression, DVT, arterial occlusion, herpes zoster, electrolyte abnormality, tumor.... This is not meant to be in all inclusive list EKG interpreted by me (3pts min.). @ -As above X-rays interpreted by me (1pt min.). @ -None done CT interpreted by me (1pt min.). @ -None done U/S interpreted by me (1pt. min.). @ -None done What testing was considered but not performed or refused? (CT, X-rays, U/S, labs)? Why? @ -None What meds were considered but not given or refused? Why? @ -None Did you discuss the management of the patient with other professionals (professionals i.e. , PA, ADDICTION MEDICINE PHYSICIAN, lab, RT, psych nurse, social work case manager, yard warehouse worker, teacher, credit officer, telehealth case manager)? Give summary @ -No Was smoking cessation discussed for >3mins.? @ -No Was critical care preformed (if so, how long)? @ -No Were there social determinants of health that impacted care today? How? (Homelessness, low income, unemployed, alcoholism, drug addiction, transportation, low edu. Level, literacy, decrease access to med. care, assisted, rehab)? @ -No Was there de-escalation of care discussed even if they declined (Discuss DNR or withdrawal of care, Hospice)? DNR status @ -No What co-morbidities impacted this encounter? (DM, HTN, Smoking, COPD, CAD, Cance r, CVA, ARF, Chemo, Hep., AIDS, mental health diagnosis, sleep apnea, morbid obesity)? @ -[CAD, hypertension, osteoarthritis and left knee Was patient admitted / discharged? Hospital course, mention meds given and route, prescriptions, significant lab abnormalities, going to OR and other pertinent info. @67-year-old male with chronic knee pain scheduled for knee replacement requesting pain management. No fever. No significant knee swelling. No new injury. Patient's pain is treated in the emergency department and he will continue outpatient follow-up. Undiagnosed new problem with uncertain prognosis? @ -No Drug Therapy requiring intensive monitoring for toxicity (Heparin, Nitro, Insulin, Cardizem)? @ -No Were any procedures done? @ -No Diagnosis/symptom? @ Chronic knee pain Acute, or Chronic, or Acute on Chronic? @ Chronic Uncomplicated (without systemic symptoms) or Complicated (systemic symptoms)? @ -default Side effects of treatment? @ -No Exacerbation, Progression, or Severe Exacerbation? @ -No Poses a threat to life or bodily function? How? (Chest pain, [place], [place], pneumonia, PE, COPD, DKA, ARF, appy, cholecystitis, CVA, Diverticulitis, Homicidal, Suicidal, threat to staff... and all critical care pts) @ -[Low-risk Disposition Clinical Impression: Knee pain, chronic Disposition: HOME SELF-CARE Condition: Fair Instructions (If sedation given, give patient instructions): Knee Pain (ED) Is patient prescribed a controlled substance at d/c from ED?: No Referrals: None,Stated [Primary Care Provider] - 1-2 days Nelson Vance MD [STAFF PHYSICIAN] - 1-2 days Time of Disposition: 12:22
[2023-05-20 12:30] VITALS: BP 124/70; PULSE 67; RESP 16; TEMP 98.7
== END 2023-05-20 12:38 | disposition home or self-care (01) ==
LOC: EC 11:38
DX: G89.4 Chronic pain syndrome (principal); M25.562 Pain in left knee; I25.10 Atherosclerotic heart disease of native coronary artery without angina pectoris; J44.9 Chronic obstructive pulmonary disease, unspecified; I10 Essential (primary) hypertension; K21.9 Gastro-esophageal reflux disease without esophagitis; M19.90 Unspecified osteoarthritis, unspecified site; E07.9 Disorder of thyroid, unspecified; Z86.718 Personal history of other venous thrombosis and embolism; Z87.891 Personal history of nicotine dependence; Z88.6 Allergy status to analgesic agent; Z88.8 Allergy status to other drugs, medicaments and biological substances; Z79.891 Long term (current) use of opiate analgesic; Z79.82 Long term (current) use of aspirin; Z79.899 Other long term (current) drug therapy
CPT/HCPCS: 99283; 96372; J1170

== ENCOUNTER 2023-05-21 14:10 | Emergency (ER) | payer MEDICARE, OTHER ==
[2023-05-21] MEDS ORDERED: HYDROmorphone 1 MG/ML 1 ML SYRINGE IVP STA (14:49)
[2023-05-21] MEDS ORDERED: HYDROmorphone 1 MG/ML 1 ML SYRINGE IM STA (14:49)
--- NOTE | 2023-05-21 15:06 | XR ---
EXAMINATION TYPE: XR knee complete LT DATE OF EXAM: 05/21/2023 COMPARISON: NONE HISTORY: Pain TECHNIQUE: 3 views of the left knee are submitted for evaluation. FINDINGS: There is no evidence for fracture or dislocation. Mild medial tibiofemoral joint without sc lerosis or spurring. No joint effusion. Prepatellar soft tissue edema. Minimal vascular sclerosis. IMPRESSION: 1. No evidence for acute fracture. 2. Mild prepatellar soft tissue edema.
--- NOTE | 2023-05-21 15:54 | US ---
EXAMINATION TYPE: US venous doppler duplex LE LT DATE OF EXAM: 05/21/2023 3:42 PM COMPARISON: 04/23/2023 CLINICAL INDICATION: Male, 67 years old with history of swelling; intermittent left leg swelling SIDE PERFORMED: Left TECHNIQUE: The lower extremity deep venous system is examined utilizing real time linear array sonog soren with graded compression, doppler sonography and color-flow sonography. VESSELS IMAGED: Common Femoral Vein Deep Femoral Vein Greater Saphenous Vein * Femoral Vein Popliteal Vein Proximal Calf Veins (* superficial vessels) Left Leg: Negative for DVT IMPRESSION: Grayscale, color doppler, spectral doppler imaging performed of the deep veins of the lo wer extremities. There is normal flow, compressibility, vascular waveforms.
--- NOTE | 2023-05-21 16:18 | ED ---
General Adult HPI - General Chief complaint: Extremity Injury, Lower Stated complaint: left knee pain Time Seen by Provider: 05/21/23 14:31 Source: patient, RN notes reviewed, old records reviewed Mode of arrival: ambulatory Limitations: no limitations - History of Present Illness Initial comments: 67-year-old male presents for reevaluation of left knee pain. Patient is scheduled for knee replacement in early June. He was seen in the emergency department yesterday by myself for worsening pain. He does have a she with chronic pain. No new injury. No fever. Patient is following with pain management next week. - Related Data Home Medications Medication Instructions Recorded Confirmed tiZANidine [Zanaflex] 4 mg PO HS 02/26/18 04/23/23 oxyCODONE-APAP 10-325MG [Percocet 1 tab PO Q6H 01/02/20 04/23/23 10-325 mg] Aspirin EC [Ecotrin Low Dose] 81 mg PO DAILY 04/23/23 04/23/23 Escitalopram [Lexapro] 10 mg PO DAILY 04/23/23 04/23/23 Folic Acid 1 mg PO DAILY 04/23/23 04/23/23 Isosorbide Mononitrate ER [Imdur] 30 mg PO DAILY 04/23/23 04/23/23 Pantoprazole Sodium [Protonix] 40 mg PO DAILY 04/23/23 04/23/23 Previous Rx's Medication Instructions Recorded Atorvastatin [Lipitor] 20 mg PO HS #30 tab 04/26/23 Losartan [Cozaar] 100 mg PO DAILY #30 tab 04/26/23 Metoprolol Tartrate [Lopressor] 50 mg PO BID #30 tab 04/26/23 amLODIPine [Norvasc] 10 mg PO DAILY #30 tab 04/26/23 hydroCHLOROthiazide [Hydrodiuril] 25 mg PO DAILY #30 tab 04/26/23 Allergies Allergy/AdvReac Type Severity Reaction Status Date / Time codeine Allergy Itching Verified 05/21/23 14:28 ibuprofen [From Motrin] Allergy Rash/Hives Verified 05/21/23 14:28 ketorolac tromethamine Allergy Rash/Hives Verified 05/21/23 14:28 [From Toradol] Review of Systems ROS Statement: Those systems with pertinent positive or pertinent negative responses have been documented in the HPI. ROS Other: All systems not noted in ROS Statement are negative. Past Medical History Past Medical History: Coronary Artery Disease (CAD), Chest Pain / Angina, COPD, Deep Vein Thrombosis (DVT), GERD/Reflux, Hyperlipidemia, Hypertension, Osteoarthritis (OA), Thyroid Disorder Additional Past Medical History / Comment(s): Occasional palpitations, gastritis, small hiatal hernia, diverticular dx, pt states years ago he had PUD, chronic low back pain, chronic pain syndrome, migraines, DVT L arm, numbness/tingling bilateral lower legs, bilateral past R hand fracture, arthritis multiple joints, hyperthyroid, sinus problems. History of Any Multi-Drug Resistant Organisms: None Reported Past Surgical History: Back Surgery, Cholecystectomy, Heart Catheterization With Stent, Orthopedic Surgery Additional Past Surgical History / Comment(s): EGDs/colonoscopies, multiple low back surgeries, bilateral arm and bilateral thigh surgeries for brown recluse spider bites with infection, morphine pain pump insertion and removal due to infection, PCI with stents, L rotator cuff repair, L knee arthroscopy, cervical fusion/cage, R cataract removal. 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 He lived to be 82 yrs old. Mother History Unknown: Yes Family Medical History: Hypertension, Myocardial Infarction (HI) Additional Family Medical History / Comment(s): Mother of a HI at the age of 55yrs. Brother(s) Family Medical History: Cancer, COPD Additional Family Medical History / Comment(s): Leukemia General Exam Limitations: no limitations General appearance: alert, in no apparent distress Head exam: Present: atraumatic, normocephalic Eye exam: Present: normal appearance, PERRL ENT exam: Present: normal exam Neck exam: Present: normal inspection. Absent: tenderness, meningismus Respiratory exam: Present: normal lung sounds bilaterally. Absent: respiratory distress, wheezes Cardiovascular Exam: Present: normal rhythm, tachycardia GI/Abdominal exam: Present: soft. Absent: distended, tenderness Extremities exam: Absent: pedal edema, joint swelling, calf tenderness Neurological exam: Present: alert, oriented X3, CN II-XII intact. Absent: motor sensory deficit Psychiatric exam: Present: normal affect, normal mood Skin exam: Present: warm, dry, intact. Absent: cyanosis, diaphoretic Course Vital Signs 05/21/23 14:26 Temperature 98.3 F Pulse Rate 117 H Respiratory 16 Rate Blood Pressure 166/108 O2 Sat by Pulse 99 Oximetry Medical Decision Making - Medical Decision Making Was pt. sent in by a medical professional or institution (, PA, CHILDREN'S AUTHOR, urgent care, hospital, or long-term...) When possible be specific @ -No Did you speak to anyone other than the patient for history (EMS, parent, family, police, friend...)? What history was obtained from this source @ -No Did you review nursing and triage notes (agree or disagree)? Why? @ -I reviewed and agree with nursing and triage notes Were old charts reviewed (outside hosp., previous admission, EMS record, old EKG, old radiological studies, urgent care reports/EKG's, long-term records)? Report findings @ -No old charts were reviewed Differential Diagnosis (chest pain, altered mental status, abdominal pain women, abdominal pain men, vaginal bleeding, weakness, fever, dyspnea, syncope, headache, dizziness, GI bleed, back pain, seizure, CVA, palpatations, mental health, musculoskeletal)? @ Differential Musculoskeletal Muscular strain, contusion, ligament sprain, fracture, arthritis, septic arthritis, bursitis, cellulitis, muscle spasm, nerve compression, DVT, arterial occlusion, herpes zoster, electrolyte abnormality, tumor.... This is not meant to be in all inclusive list EKG interpreted by me (3pts min.). @ -As above X-rays interpreted by me (1pt min.). @ -Negative for fracture/dislocation CT interpreted by me (1pt min.). @ -None done U/S interpreted by me (1pt. min.). @ Negative for DVT What testing was considered but not performed or refused? (CT, X-rays, U/S, labs)? Why? @ -None What meds were considered but not given or refused? Why? @ -None Did you discuss the management of the patient with other professionals (professionals i.e. , PA, CHILDREN'S AUTHOR, lab, RT, psych nurse, social work lecturer, trial lawyer, teacher, catapult and arresting gear officer, case advocate)? Give summary @ -No Was smoking cessation discussed for >3mins.? @ -No Was critical care preformed (if so, how long)? @ -No Were there social determinants of health that impacted care today? How? (H omelessness, low income, unemployed, alcoholism, drug addiction, transportation, low edu. Level, literacy, decrease access to med. care, snf, rehab)? @ -No Was there de-escalation of care discussed even if they declined (Discuss DNR or withdrawal of care, Hospice)? DNR status @ -No What co-morbidities impacted this encounter? (DM, HTN, Smoking, COPD, CAD, Cancer, CVA, ARF, Chemo, Hep., AIDS, mental health diagnosis, sleep apnea, morbid obesity)? @ -None Was patient admitted / discharged? Hospital course, mention meds given and route, prescriptions, significant lab abnormalities, going to OR and other pertinent info. @ -67-year-old male with chronic knee pain. Patient has follow-up with the pain clinic in one week. He has Percocet and Norflex at home is currently on steroid. Patient should continue his outpatient evaluation and treatment. Stable for discharge. Undiagnosed new problem with uncertain prognosis? @ -No Drug Therapy requiring intensive monitoring for toxicity (Heparin, Nitro, In sulin, Cardizem)? @ -No Were any procedures done? @ -No Diagnosis/symptom? @ -[Chronic pain Acute, or Chronic, or Acute on Chronic? @ -[Chronic Uncomplicated (without systemic symptoms) or Complicated (systemic symptoms)? @ -default Side effects of treatment? @ -No Exacerbation, Progression, or Severe Exacerbation? @ -No Poses a threat to life or bodily function? How? (Chest pain, USA, HI, pneumonia, PE, COPD, DKA, ARF, appy, cholecystitis, CVA, Diverticulitis, Homicidal, Suicidal, threat to staff... and all critical care pts) @ -No Disposition Clinical Impression: Knee pain, chronic Disposition: HOME SELF-CARE Condition: Fair Instructions (If sedation given, give patient instructions): Knee Pain (ED) Additional Instructions: Please follow up with your pain management physician and orthopedic surgeon. Is patient prescribed a controlled substance at d/c from ED?: No Referrals: None,Stated [Primary Care Provider] - 1-2 days Time of Disposition: 16:26
[2023-05-21 16:54] VITALS: BP 178/96; PULSE 107; RESP 18; TEMP 98.1
== END 2023-05-21 16:56 | disposition home or self-care (01) ==
LOC: EC 14:10
DX: G89.4 Chronic pain syndrome (principal); M25.562 Pain in left knee; I25.10 Atherosclerotic heart disease of native coronary artery without angina pectoris; J44.9 Chronic obstructive pulmonary disease, unspecified; E78.5 Hyperlipidemia, unspecified; I10 Essential (primary) hypertension; K21.9 Gastro-esophageal reflux disease without esophagitis; E07.9 Disorder of thyroid, unspecified; Z86.718 Personal history of other venous thrombosis and embolism; Z87.891 Personal history of nicotine dependence; Z88.6 Allergy status to analgesic agent; Z88.8 Allergy status to other drugs, medicaments and biological substances; Z79.82 Long term (current) use of aspirin; Z79.899 Other long term (current) drug therapy
CPT/HCPCS: 73562; 93971; 99284; 96372; J1170

== ENCOUNTER 2023-05-28 11:41 | Emergency (ER) | payer MEDICARE, OTHER ==
[2023-05-28] MEDS ORDERED: NITROGLYCERIN SL TABS 0.4 MG TAB SUBLINGUAL STA ×3 (12:57)
[2023-05-28] MEDS ORDERED: ASPIRIN 81 MG PO STA (12:57)
--- NOTE | 2023-05-28 13:00 | ED ---
General Adult HPI - General Chief complaint: Chest Pain Stated complaint: chest pain Time Seen by Provider: 05/28/23 12:46 Source: patient, RN notes reviewed Mode of arrival: ambulatory Limitations: no limitations - History of Present Illness Initial comments: Patient is a 67-year-old male presents emergency department with concerns with chest discomfort. Onset of symptoms was yesterday. Discomfort feels a pressure. Patient's blood pressure was high at home, as high as 156/100. Patient admits to having chest discomfort somewhat frequently, around once per week. Patient states usually correlates with high blood pressure. Patient denies any recent changes are missing medication. No associated dyspnea, nausea, or diaphoresis. - Related Data Home Medications Medication Instructions Recorded Confirmed tiZANidine [Zanaflex] 4 mg PO HS 02/26/18 05/28/23 oxyCODONE-APAP 10-325MG [Percocet 1 tab PO Q6H 01/02/20 05/28/23 10-325 mg] Aspirin EC [Ecotrin Low Dose] 81 mg PO DAILY 04/23/23 05/28/23 Escitalopram [Lexapro] 10 mg PO DAILY 04/23/23 05/28/23 Folic Acid 1 mg PO DAILY 04/23/23 05/28/23 Isosorbide Mononitrate ER [Imdur] 30 mg PO DAILY 04/23/23 05/28/23 Pantoprazole Sodium [Protonix] 40 mg PO DAILY 04/23/23 05/28/23 Diclofenac Sodium 3% Gel 1 applic TOPICAL QID PRN 05/28/23 05/28/23 Previous Rx's Medication Instructions Recorded Atorvastatin [Lipitor] 20 mg PO HS #30 tab 04/26/23 Losartan [Cozaar] 100 mg PO DAILY #30 tab 04/26/23 Metoprolol Tartrate [Lopressor] 50 mg PO BID #30 tab 04/26/23 amLODIPine [Norvasc] 10 mg PO DAILY #30 tab 04/26/23 hydroCHLOROthiazide [Hydrodiuril] 25 mg PO DAILY #30 tab 04/26/23 Allergies Allergy/AdvReac Type Severity Reaction Status Date / Time codeine Allergy Itching Verified 05/28/23 14:21 ibuprofen [From Motrin] Allergy Rash/Hives Verified 05/28/23 14:21 ketorolac tromethamine Allergy Rash/Hives Verified 05/28/23 14:21 [From Toradol] Review of Systems ROS Statement: Those systems with pertinent positive or pertinent negative responses have been documented in the HPI. ROS Other: All systems not noted in ROS Statement are negative. Constitutional: Denies: fever Eyes: Denies: eye pain ENT: Denies: ear pain Respiratory: Denies: cough, dyspnea Cardiovascular: Reports: as per HPI, chest pain Endocrine: Denies: fatigue Gastrointestinal: Denies: abdominal pain Genitourinary: Denies: dysuria Musculoskeletal: Denies: back pain Skin: Denies: rash Neurological: Denies: weakness Past Medical History Past Medical History: Coronary Artery Disease (CAD), Chest Pain / Angina, COPD, Deep Vein Thrombosis (DVT), GERD/Reflux, Hyperlipidemia, Hypertension, Osteoarthritis (OA), Thyroid Disorder Additional Past Medical History / Comment(s): Occasional palpitations, gastritis, small hiatal hernia, diverticular dx, pt states years ago he had PUD, chronic low back pain, chronic pain syndrome, migraines, DVT L arm, numbness/tingling bilateral lower legs, bilateral past R hand fracture, arthritis multiple joints, hyperthyroid, sinus problems. History of Any Multi-Drug Resistant Organisms: None Reported Past Surgical History: Back Surgery, Cholecystectomy, Heart Catheterization With Stent, Orthopedic Surgery Additional Past Surgical History / Comment(s): EGDs/colonoscopies, multiple low back surgeries, bilateral arm and bilateral thigh surgeries for brown recluse spider bites with infection, morphine pain pump insertion and removal due to infection, PCI with stents, L rotator cuff repair, L knee arthroscopy, cervical fusion/cage, R cataract removal. 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 He lived to be 82 yrs old. Mother History Unknown: Yes Family Medical History: Hypertension, Myocardial Infarction (SC) Additional Family Medical History / Comment(s): Mother of a SC at the age of 55yrs. Brother(s) Family Medical History: Cancer, COPD Additional Family Medical History / Comment(s): Leukemia General Exam Limitations: no limitations General appearance: alert, in no apparent distress Head exam: Present: normocephalic Eye exam: Present: normal appearance Neck exam: Present: normal inspection Respiratory exam: Present: normal lung sounds bilaterally. Absent: chest wall tenderness Cardiovascular Exam: Present: regular rate, normal rhythm, normal heart sounds Expanded Peripheral pulses: 2+: Radial (R), Radial (L), Posterior Tibialis (R), Posterior Tibialis (L) GI/Abdominal exam: Present: soft. Absent: distended, tenderness Extremities exam: Present: normal inspection. Absent: pedal edema, calf tenderness Neurological exam: Present: alert. Absent: motor sensory deficit Psychiatric exam: Present: normal affect, normal mood Skin exam: Present: normal color Course Vital Signs 05/28/23 05/28/23 05/28/23 12:20 13:05 13:09 Temperature 98.6 F Pulse Rate 103 H 101 H Pulse Rate [ 98 Quality Control Assistant ] Respiratory 20 18 Rate Blood Pressure 173/99 169/99 O2 Sat by Pulse 98 97 Oximetry 05/28/23 14:47 Temperature 98.4 F Pulse Rate 99 Pulse Rate [ Quality Control Assistant ] Respiratory 17 Rate Blood Pressure 183/106 O2 Sat by Pulse 98 Oximetry EKG Findings - EKG Results: EKG: interpreted by ERMD (Left axis. Nonspecific T waves.), sinus rhythm, normal QRS Medical Decision Making - Medical Decision Making Was pt. sent in by a medical professional or institution (, PA, GARDEN WORKER, urgent care, hospital, or alf...) When possible be specific @ -No Did you speak to anyone other than the patient for history (EMS, parent, family, police, friend...)? What history was obtained from this source @ -No Did you review nursing and triage notes (agree or disagree)? Why? @ -I reviewed and agree with nursing and triage notes Were old charts reviewed (outside hosp., previous admission, EMS record, old EKG, old radiological studies, urgent care reports/EKG's, alf records)? Report findings @ -Previous admission and previous chest x-ray reviewed Differential Diagnosis (chest pain, altered mental status, abdominal pain women, abdominal pain men, vaginal bleeding, weakness, fever, dyspnea, syncope, headache, dizziness, GI bleed, back pain, seizure, CVA, palpatations, mental health, musculoskeletal)? @ -Differential Chest Pain: Stable Angina, Unstable Angina, STEMI, NSTEMI Aortic Dissection, Pneumothorax, Musculoskeletal, Esophageal Spasm GERD, Cholecystitis, Pancreatitis, Zoster, this is not meant to be an all-inclusive list. EKG interpreted by me (3pts min.). @ -As above X-rays interpreted by me (1pt min.). @ -Chest x-ray shows no acute process CT interpreted by me (1pt min.). @ -None done U/S interpreted by me (1pt. min.). @ -None done What testing was considered but not performed or refused? (CT, X-rays, U/S, labs)? Why? @ -None What meds were considered but not given or refused? Why? @ -None Did you discuss the management of the patient with other professionals (professionals i.e. , PA, GARDEN WORKER, lab, RT, psych nurse, social media job titles, abrasive worker, teacher, physics technical officer, assistant case manager)? Give summary @ -No Was smoking cessation discussed for >3mins.? @ -No Was critical care preformed (if so, how long)? @ -No Were there social determinants of health that impacted care today? How? (Homelessness, low income, unemployed, alcoholism, drug addiction, hurley sportation, low edu. Level, literacy, decrease access to med. care, fci, rehab)? @ -No Was there de-escalation of care discussed even if they declined (Discuss DNR or withdrawal of care, Hospice)? DNR status @ -No What co-morbidities impacted this encounter? (DM, HTN, Smoking, COPD, CAD, Cancer, CVA, ARF, Chemo, Hep., AIDS, mental health diagnosis, sleep apnea, morbid obesity)? @ -None Was patient admitted / discharged? Hospital course, mention meds given and route, prescriptions, significant lab abnormalities, going to OR and other pertinent info. @ -Patient complaining of continued chest discomfort and continues to request narcotics. Patient refuses to stay and left AGAINST MEDICAL ADVICE. Undiagnosed new problem with uncertain prognosis? @ -No Drug Therapy requiring intensive monitoring for toxicity (Heparin, Nitro, Insulin, Cardizem)? @ -No Were any procedures done? @ -No Diagnosis/symptom? @ -Chest pain Acute, or Chronic, or Acute on Chronic? @ -Acute on chronic Uncomplicated (without systemic symptoms) or Complicated (systemic symptoms)? @ -default Side effects of treatment? @ -No Exacerbation, Progression, or Severe Exacerbation? @ -No Poses a threat to life or bodily function? How? (Chest pain, USA, SC, pneumonia, PE, COPD, DKA, ARF, appy, cholecystitis, CVA, Diverticulitis, Homicidal, Suicidal, threat to staff... and all critical care pts) @ -No - Lab Data Result diagrams: 05/28/23 13:02 05/28/23 13:02 Lab Results 05/28/23 05/28/23 05/28/23 Range/Units 13:02 13:02 13:02 WBC 2.9 L (3.8-10.6) k/uL RBC 4.27 L (4.30-5.90) m/uL Hgb 12.3 L (13.0-17.5) gm/dL Hct 38.9 L (39.0-53.0) % MCV 91.0 (80.0-100.0) fL MCH 28.8 (25.0-35.0) pg MCHC 31.6 (31.0-37.0) g/dL RDW 14.0 (11.5-15.5) % Plt Count 381 (150-450) k/uL MPV 7.1 Neutrophils % 60 % Lymphocytes % 28 % Monocytes % 7 % Eosinophils % 1 % Basophils % 0 % Neutrophils # 1.8 (1.3-7.7) k/uL Lymphocytes # 0.8 L (1.0-4.8) k/uL Monocytes # 0.2 (0-1.0) k/uL Eosinophils # 0.0 (0-0.7) k/uL Basophils # 0.0 (0-0.2) k/uL PT 10.3 (9.0-12.0) sec INR 1.0 (<1.2) APTT 24.5 (22.0-30.0) sec D-Dimer 0.41 (<0.60) mg/L FEU Sodium 137 (137-145) mmol/L Potassium 4.5 (3.5-5.1) mmol/L Chloride 107 (98-107) mmol/L Carbon Dioxide 24 (22-30) mmol/L Anion Gap 6 mmol/L BUN 8 L (9-20) mg/dL Creatinine 0.55 L (0.66-1.25) mg/dL Est GFR (CKD-EPI)AfAm >90 (>60 ml/min/1.73 sqM) Est GFR (CKD-EPI)NonAf >90 (>60 ml/min/1.73 sqM) Glucose 106 H (74-99) mg/dL Calcium 9.3 (8.4-10.2) mg/dL Magnesium 1.8 (1.6-2.3) mg/dL Total Bilirubin 0.5 (0.2-1.3) mg/dL AST 19 (17-59) U/L ALT 11 (4-49) U/L Alkaline Phosphatase 73 (38-126) U/L Troponin I (0.000-0.034) ng/mL Total Protein 6.5 (6.3-8.2) g/dL Albumin 3.9 (3.5-5.0) g/dL Lipase 35 (23-300) U/L 05/28/23 Range/Units 13:02 WBC (3.8-10.6) k/uL RBC (4.30-5.90) m/uL Hgb (13.0-17.5) gm/dL Hct (39.0-53.0) % MCV (80.0-100.0) fL MCH (25.0-35.0) pg MCHC (31.0-37.0) g/dL RDW (11.5-15.5) % Plt Count (150-450) k/uL MPV Neutrophils % % Lymphocytes % % Monocytes % % Eosinophils % % Basophils % % Neutrophils # (1.3-7.7) k/uL Lymphocytes # (1.0-4.8) k/uL Monocytes # (0-1.0) k/uL Eosinophils # (0-0.7) k/uL Basophils # (0-0.2) k/uL PT (9.0-12.0) sec INR (<1.2) APTT (22.0-30.0) sec D-Dimer (<0.60) mg/L FEU Sodium (137-145) mmol/L Potassium (3.5-5.1) mmol/L Chloride (98-107) mmol/L Carbon Dioxide (22-30) mmol/L Anion Gap mmol/L BUN (9-20) mg/dL Creatinine (0.66-1.25) mg/dL Est GFR (CKD-EPI)AfAm (>60 ml/min/1.73 sqM) Est GFR (CKD-EPI)NonAf (>60 ml/min/1.73 sqM) Glucose (74-99) mg/dL Calcium (8.4-10.2) mg/dL Magnesium (1.6-2.3) mg/dL Total Bilirubin (0.2-1.3) mg/dL AST (17-59) U/L ALT (4-49) U/L Alkaline Phosphatase (38-126) U/L Troponin I <0.012 (0.000-0.034) ng/mL Total Protein (6.3-8.2) g/dL Albumin (3.5-5.0) g/dL Lipase (23-300) U/L Disposition Clinical Impression: Chest pain, Hypertension Disposition: LEFT AGAINST MEDICAL ADVICE Instructions (If sedation given, give patient instructions): Chest Pain (ED), Hypertension (ED) Additional Instructions: Please follow-up with your primary care physician and your cork compounder in the next day or 2 for recheck. Return for change or worsening symptoms or other concerns. You're leaving AGAINST MEDICAL ADVICE. Is patient prescribed a controlled substance at d/c from ED?: No Referrals: Nelson Lucia MD [STAFF PHYSICIAN] - 1-2 days Time of Disposition: 15:31
--- NOTE | 2023-05-28 13:23 | XR ---
EXAMINATION TYPE: XR chest 2V DATE OF EXAM: 05/28/2023 1:17 PM COMPARISON: Chest radiographs from 04/23/2023, CTA chest 04/23/2023 TECHNIQUE: XR chest 2V Frontal and lateral views of the chest. CLINICAL INDICATION:Male, 67 years old with history of Chest Pain; FINDINGS: Lungs/Pleura: There is no evidence of pleural effusion, focal consolidation, or pneumothorax. Pulmonary vascularity: Unremarkable. Heart/mediastinum: Cardiomediastinal silhouette is unremarkable. Musculoskeletal: No acute osseous pathology. Partial visualization of anterior cervical fusion hardwa re. IMPRESSION: No acute cardiopulmonary disease/process.
[2023-05-28 14:06] LABS: Basophils % (A) 0 %; Eosinophils % (A) 1 %; HCT 38.9 % (39.0-53.0); HGB 12.3 gm/dL (13.0-17.5); Lymphocytes # (A) 0.8 k/uL (1.0-4.8); Lymphocytes % (A) 28 %; MCH 28.8 pg (25.0-35.0); MCHC 31.6 g/dL (31.0-37.0); Mean Platelet Volume 7.1; Monocytes # (A) 0.2 k/uL (0-1.0); Monocytes % (A) 7 %; Neutrophils # (A) 1.8 k/uL (1.3-7.7); Neutrophils % (A) 60 %; Platelet Count 381 k/uL (150-450); RBC 4.27 m/uL (4.30-5.90); WBC 2.9 k/uL (3.8-10.6)
[2023-05-28 14:11] LABS: Partial Thromboplastin Time 24.5 sec (22.0-30.0); Prothrombin Time 10.3 sec (9.0-12.0)
[2023-05-28 14:15] LABS: ALT 11 U/L (4-49); AST 19 U/L (17-59); African American GFR (CKD) >90 (>60 ml/min/1.73 sqM); Albumin 3.9 g/dL (3.5-5.0); Alkaline Phosphatase 73 U/L (38-126); Anion Gap 6 mmol/L; Blood Urea Nitrogen 8 mg/dL (9-20); Calcium 9.3 mg/dL (8.4-10.2); Carbon Dioxide 24 mmol/L (22-30); Chloride 107 mmol/L (98-107); Glucose 106 mg/dL (74-99); Lipase 35 U/L (23-300); Magnesium 1.8 mg/dL (1.6-2.3); Non-African American GFR(CKD) >90 (>60 ml/min/1.73 sqM); Potassium 4.5 mmol/L (3.5-5.1); Sodium 137 mmol/L (137-145); Total Bilirubin 0.5 mg/dL (0.2-1.3); Total Protein 6.5 g/dL (6.3-8.2)
[2023-05-28 14:48] VITALS: BP 183/106; PULSE 99; RESP 17; TEMP 98.4
[2023-05-28] MEDS ORDERED: LORazepam 2 MG/ML INJ IV STA (14:50)
[2023-05-28] MEDS ORDERED: ENALAPRILAT 1.25 MG/ML 1 ML VIAL IVP STA (15:24)
== END 2023-05-28 15:34 | disposition left against medical advice (07) ==
LOC: EC 11:41
DX: I10 Essential (primary) hypertension (principal); I25.10 Atherosclerotic heart disease of native coronary artery without angina pectoris; J44.9 Chronic obstructive pulmonary disease, unspecified; K21.9 Gastro-esophageal reflux disease without esophagitis; Z53.29 Procedure and treatment not carried out because of patient's decision for other reasons; Z79.82 Long term (current) use of aspirin; Z79.899 Other long term (current) drug therapy; Z88.5 Allergy status to narcotic agent; Z88.6 Allergy status to analgesic agent; Z87.891 Personal history of nicotine dependence; Z95.5 Presence of coronary angioplasty implant and graft
CPT/HCPCS: 36415; 71046; 80053; 83690; 83735; 84484; 85025; 85379; 85610; 85730; 93005; 99285

== ENCOUNTER 2023-06-03 12:12 | Emergency (ER) | payer MEDICARE, OTHER ==
[2023-06-03 12:18] VITALS: TEMP 98.7
[2023-06-03 12:35] VITALS: BP 178/85; PULSE 105; RESP 18
--- NOTE | 2023-06-03 13:23 | ED ---
Headache HPI - General Chief Complaint: Headache Stated Complaint: headache Time Seen by Provider: 06/03/23 13:23 Source: RN notes reviewed Mode of arrival: ambulatory Limitations: no limitations - History of Present Illness Initial Comments: Patient is a 67-year-old male who presents the emergency department for migraine and congestion that started yesterday. He has history of migraine states this feels similar. He has not taken any migraine medication. Denies chest pain and shortness of breath. No fever. - Related Data Home Medications Medication Instructions Recorded Confirmed tiZANidine [Zanaflex] 4 mg PO HS 02/26/18 05/28/23 oxyCODONE-APAP 10-325MG [Percocet 1 tab PO Q6H 01/02/20 05/28/23 10-325 mg] Aspirin EC [Ecotrin Low Dose] 81 mg PO DAILY 04/23/23 05/28/23 Escitalopram [Lexapro] 10 mg PO DAILY 04/23/23 05/28/23 Folic Acid 1 mg PO DAILY 04/23/23 05/28/23 Isosorbide Mononitrate ER [Imdur] 30 mg PO DAILY 04/23/23 05/28/23 Pantoprazole Sodium [Protonix] 40 mg PO DAILY 04/23/23 05/28/23 Diclofenac Sodium 3% Gel 1 applic TOPICAL QID PRN 05/28/23 05/28/23 Previous Rx's Medication Instructions Recorded Atorvastatin [Lipitor] 20 mg PO HS #30 tab 04/26/23 Losartan [Cozaar] 100 mg PO DAILY #30 tab 04/26/23 Metoprolol Tartrate [Lopressor] 50 mg PO BID #30 tab 04/26/23 amLODIPine [Norvasc] 10 mg PO DAILY #30 tab 04/26/23 hydroCHLOROthiazide [Hydrodiuril] 25 mg PO DAILY #30 tab 04/26/23 Allergies Allergy/AdvReac Type Severity Reaction Status Date / Time codeine Allergy Itching Verified 06/03/23 12:18 ibuprofen [From Motrin] Allergy Rash/Hives Verified 06/03/23 12:18 ketorolac tromethamine Allergy Rash/Hives Verified 06/03/23 12:18 [From Toradol] Review of Systems ROS Statement: Those systems with pertinent positive or pertinent negative responses have been documented in the HPI. ROS Other: All systems not noted in ROS Statement are negative. Past Medical History Past Medical History: Coronary Artery Disease (CAD), Chest Pain / Angina, COPD, Deep Vein Thrombosis (DVT), GERD/Reflux, Hyperlipidemia, Hypertension, Osteoarthritis (OA), Thyroid Disorder Additional Past Medical History / Comment(s): Occasional palpitations, gastritis, small hiatal hernia, diverticular dx, pt states years ago he had PUD, chronic low back pain, chronic pain syndrome, migraines, DVT L arm, numbness/tingling bilateral lower legs, bilateral past R hand fracture, arthritis multiple joints, hyperthyroid, sinus problems. History of Any Multi-Drug Resistant Organisms: None Reported Past Surgical History: Back Surgery, Cholecystectomy, Heart Catheterization With Stent, Orthopedic Surgery Additional Past Surgical History / Comment(s): EGDs/colonoscopies, multiple low back surgeries, bilateral arm and bilateral thigh surgeries for brown recluse spider bites with infection, morphine pain pump insertion and removal due to infection, PCI with stents, L rotator cuff repair, L knee arthroscopy, cervical fusion/cage, R cataract removal. 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 He lived to be 82 yrs old. Mother History Unknown: Yes Family Medical History: Hypertension, Myocardial Infarction (NM) Additional Family Medical History / Comment(s): Mother of a [place] at the age of 55yrs. Brother(s) Family Medical History: Cancer, COPD Additional Family Medical History / Comment(s): Leukemia General Exam Limitations: no limitations General appearance: alert Head exam: Present: atraumatic, normocephalic, normal inspection Eye exam: Present: normal appearance, PERRL, EOMI. Absent: scleral icterus, conjunctival injection, periorbital swelling Respiratory exam: Present: normal lung sounds bilaterally. Absent: respiratory distress, wheezes, rales, rhonchi, stridor Cardiovascular Exam: Present: regular rate, normal rhythm, normal heart sounds. Absent: systolic murmur, diastolic murmur, rubs, gallop, clicks Neurological exam: Present: alert, oriented X3, CN II-XII intact Expanded Sensory exam: Upper Extremity Light Touch: Normal, Lower Extremity Light Touch: Normal Motor strength exam: RUE: 5, LUE: 5, RLE: 5, LLE: 5 Psychiatric exam: Present: normal affect, normal mood Skin exam: Present: warm, dry, intact, normal color. Absent: rash Course Vital Signs 06/03/23 12:14 Temperature 98.7 F Pulse Rate 105 H Respiratory 18 Rate Blood Pressure 178/85 O2 Sat by Pulse 93 L Oximetry Medical Decision Making - Medical Decision Making Was pt. sent in by a medical professional or institution (FAITH Burns, COAT AGENT, urgent care, hospital, or alf...) When possible be specific @ -No Did you speak to anyone other than the patient for history (EMS, parent, family, police, friend...)? What history was obtained from this source @ -No Did you review nursing and triage notes (agree or disagree)? Why? @ -I reviewed and agree with nursing and triage notes Were old charts reviewed (outside hosp., previous admission, EMS record, old EKG, old radiological studies, urgent care reports/EKG's, alf records)? Report findings @ -No old charts were reviewed Differential Diagnosis (chest pain, altered mental status, abdominal pain women, abdominal pain men, vaginal bleeding, weakness, fever, dyspnea, syncope, headache, dizziness, GI bleed, back pain, seizure, CVA, palpatations, mental health)? @ Differential Headache: Migraine, tension, cluster, carbon monoxide, central venous thrombosis, pension karma temporal arteritis, acute closure glaucoma, intercranial hemorrhage, mastoiditis, sinusitis, head injury, this is not meant to be an all-inclusive list. EKG interpreted by me (3pts min.). @ -As above X-rays interpreted by me (1pt min.). @ -None done CT interpreted by me (1pt min.). @ -None done U/S interpreted by me (1pt. min.). @ -None done What testing was considered but not performed or refused? (CT, X-rays, U/S, labs)? Why? @ -None What meds were considered but not given or refused? Why? @ -None Did you discuss the management of the patient with other professionals (professionals i.e. , PA, COAT AGENT, lab, RT, psych nurse, medical social worker, tool maker apprentice, teacher, chief scientific officer, porter sample case)? Give summary @ -No Was smoking cessation discussed for >3mins.? @ -No Was critical care preformed (if so, how long)? @ -No Were there social determinants of health that impacted care today? How? (Homelessness, low income, unemployed, alcoholism, drug addiction, transportation, low edu. Level, literacy, decrease access to med. care, intermediate, rehab)? @ -No Was there de-escalation of care discussed even if they declined (Discuss DNR or withdrawal of care, Hospice)? DNR status @ -No What co-morbidities impacted this encounter? (DM, HTN, Smoking, COPD, CAD, Cancer, CVA, ARF, Chemo, Hep., AIDS, mental health diagnosis, sleep apnea, morbid obesity)? @ -None Was patient admitted / discharged? Hospital course, mention meds given and route, prescriptions, significant lab abnormalities, going to OR and other pertinent info. @Patient presenting for migraine. He presents often for this complaint. No neurological deficit. Upon evaluation patient asks if I'm going to give him Dilaudid again like last time. I did not give him Dilaudid last time. This was declined. Migraine cocktail was ordered patient left AMA New problem with uncertain prognosis? @ -No Drug Therapy requiring intensive monitoring for toxicity (Heparin, Nitro, Insulin, Cardizem)? @ -No Were any procedures done? @ -No Diagnosis/symptom? @ -migraine Acute, or Chronic, or Acute on Chronic? @ -Acute on chronic Uncomplicated (without systemic symptoms) or Complicated (systemic symptoms)? @Uncomplicated Side effects of treatment? @ -No Exacerbation, Progression, or Severe Exacerbation? @ -No Poses a threat to life or bodily function? How? (Chest pain, [place], NM, pneumonia, PE, COPD, DKA, ARF, appy, cholecystitis, CVA, Diverticulitis, Homicidal, Suicidal, threat to staff... and all critical care pts) @ -No Dr. Baker is my attending - Lab Data Lab Results 07/12/23 Range/Units 13:59 Influenza Type A (PCR) Not Detected (Not Detectd) Influenza Type B (PCR) Not Detected (Not Detectd) RSV (PCR) Not Detected (Not Detectd) SARS-CoV-2 (PCR) Not Detected (Not Detectd) Disposition Clinical Impression: Migraine Disposition: LEFT AGAINST MEDICAL ADVICE Referrals: None,Stated [Primary Care Provider] - 1-2 days
[2023-06-03] MEDS ORDERED: ONDANSETRON 4 MG/2 ML VIAL IVP STA (15:55)
[2023-06-03] MEDS ORDERED: DEXAMETHASONE SOD PHOSPHATE 10 MG/ML 1 ML VIAL IVP STA (15:55)
[2023-06-03] MEDS ORDERED: SODIUM CHLORIDE 0.9% 1,000 ML IV STA (15:55)
[2023-06-03] MEDS ORDERED: diphenhydrAMINE 50 MG/ML 1 ML VIAL IVP STA (15:55)
== END 2023-06-03 16:34 | disposition left against medical advice (07) ==
LOC: EC 12:12
DX: G43.909 Migraine, unspecified, not intractable, without status migrainosus (principal); I10 Essential (primary) hypertension; I25.10 Atherosclerotic heart disease of native coronary artery without angina pectoris; J44.9 Chronic obstructive pulmonary disease, unspecified; K21.9 Gastro-esophageal reflux disease without esophagitis; Z20.822 Contact with and (suspected) exposure to COVID-19; Z87.891 Personal history of nicotine dependence; Z79.82 Long term (current) use of aspirin; Z79.899 Other long term (current) drug therapy; Z88.5 Allergy status to narcotic agent; Z88.6 Allergy status to analgesic agent
CPT/HCPCS: 87636; 99283

== ENCOUNTER 2023-06-09 18:06 | Emergency (ER) | payer MEDICARE, OTHER ==
[2023-06-09 18:44] VITALS: TEMP 98.5
[2023-06-09] MEDS ORDERED: PROCHLORPERAZINE 5 MG TAB PO STA (19:17)
[2023-06-09] MEDS ORDERED: diphenhydrAMINE 50 MG CAP PO STA (19:17)
[2023-06-09] MEDS ORDERED: HYDROmorphone 1 MG/ML 1 ML SYRINGE IM STA (19:17)
--- NOTE | 2023-06-09 19:22 | ED ---
Headache HPI - General Chief Complaint: Headache Stated Complaint: Headache Time Seen by Provider: 06/09/23 18:43 Source: RN notes reviewed, old records reviewed Mode of arrival: ambulatory Limitations: no limitations - History of Present Illness Initial Comments: This is a 65-year-old male to the emergency department for evaluation, patient presents today for evaluation regards to headache migraine headache similar to prior with no trauma no fevers no other complaints. Patient denying homicidal or suicidal thoughts. Patient states he Control his headache at home. MD Complaint: headache, "migraine" -: hour(s) Onset Description: gradual Location: right, left, temporal Severity: moderate Severity scale (1-10): 7 Quality: aching, throbbing, full Consistency: constant Improves With: nothing Worsens With: none Context: recent URI Associated Symptoms: nausea Other Symptoms: chest pain Treatments Prior to Arrival: none - Related Data Home Medications Medication Instructions Recorded Confirmed tiZANidine [Zanaflex] 4 mg PO HS 02/26/18 05/28/23 oxyCODONE-APAP 10-325MG [Percocet 1 tab PO Q6H 01/02/20 05/28/23 10-325 mg] Aspirin EC [Ecotrin Low Dose] 81 mg PO DAILY 04/23/23 05/28/23 Escitalopram [Lexapro] 10 mg PO DAILY 04/23/23 05/28/23 Folic Acid 1 mg PO DAILY 04/23/23 05/28/23 Isosorbide Mononitrate ER [Imdur] 30 mg PO DAILY 04/23/23 05/28/23 Pantoprazole Sodium [Protonix] 40 mg PO DAILY 04/23/23 05/28/23 Diclofenac Sodium 3% Gel 1 applic TOPICAL QID PRN 05/28/23 05/28/23 Previous Rx's Medication Instructions Recorded Atorvastatin [Lipitor] 20 mg PO HS #30 tab 04/26/23 Losartan [Cozaar] 100 mg PO DAILY #30 tab 04/26/23 Metoprolol Tartrate [Lopressor] 50 mg PO BID #30 tab 04/26/23 amLODIPine [Norvasc] 10 mg PO DAILY #30 tab 04/26/23 hydroCHLOROthiazide [Hydrodiuril] 25 mg PO DAILY #30 tab 04/26/23 Allergies Allergy/AdvReac Type Severity Reaction Status Date / Time codeine Allergy Itching Verified 06/03/23 12:18 ibuprofen [From Motrin] Allergy Rash/Hives Verified 06/03/23 12:18 ketorolac tromethamine Allergy Rash/Hives Verified 06/03/23 12:18 [From Toradol] Review of Systems ROS Statement: Those systems with pertinent positive or pertinent negative responses have been documented in the HPI. ROS Other: All systems not noted in ROS Statement are negative. Past Medical History Past Medical History: Coronary Artery Disease (CAD), Chest Pain / Angina, COPD, Deep Vein Thrombosis (DVT), GERD/Reflux, Hyperlipidemia, Hypertension, Osteoarthritis (OA), Thyroid Disorder Additional Past Medical History / Comment(s): Occasional palpitations, gastritis, small hiatal hernia, diverticular dx, pt states years ago he had PUD, chronic low back pain, chronic pain syndrome, migraines, DVT L arm, numbness /tingling bilateral lower legs, bilateral past R hand fracture, arthritis multiple joints, hyperthyroid, sinus problems. History of Any Multi-Drug Resistant Organisms: None Reported Past Surgical History: Back Surgery, Cholecystectomy, Heart Catheterization With Stent, Orthopedic Surgery Additional Past Surgical History / Comment(s): EGDs/colonoscopies, multiple low back surgeries, bilateral arm and bilateral thigh surgeries for brown recluse spider bites with infection, morphine pain pump insertion and removal due to i nfection, PCI with stents, L rotator cuff repair, L knee arthroscopy, cervical fusion/cage, R cataract removal. 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 He lived to be 82 yrs old. Mother History Unknown: Yes Family Medical History: Hypertension, Myocardial Infarction ([place]) Additional Family Medical History / Comment(s): Mother of a [place] at the age of 55yrs. Brother(s) Family Medical History: Cancer, COPD Additional Family Medical History / Comment(s): Leukemia General Exam Limitations: no limitations General appearance: alert, in no apparent distress Head exam: Present: atraumatic, normocephalic, normal inspection Eye exam: Present: normal appearance, PERRL, EOMI. Absent: scleral icterus, conjunctival injection, periorbital swelling ENT exam: Present: normal exam, mucous membranes moist Neck exam: Present: normal inspection. Absent: tenderness, meningismus, lymphadenopathy Respiratory exam: Present: normal lung sounds bilaterally. Absent: respiratory distress, wheezes, rales, rhonchi, stridor Cardiovascular Exam: Present: regular rate, normal rhythm, normal heart sounds. Absent: systolic murmur, diastolic murmur, rubs, gallop, clicks GI/Abdominal exam: Present: soft, normal bowel sounds. Absent: distended, tenderness, guarding, rebound, rigid Extremities exam: Present: normal inspection, full ROM, normal capillary refill. Absent: tenderness, pedal edema, joint swelling, calf tenderness Back exam: Present: normal inspection Neurological exam: Present: alert, oriented X3, CN II-XII intact Psychiatric exam: Present: normal affect, normal mood Skin exam: Present: warm, dry, intact, normal color. Absent: rash Course Vital Signs 06/09/23 18:41 Temperature 98.5 F Pulse Rate 100 Respiratory 20 Rate Blood Pressure 186/90 O2 Sat by Pulse 98 Oximetry - Reevaluation(s) Reevaluation #1: 06/09/23 19:20 Medical record is reviewed Reevaluation #2: 06/09/23 19:21 Patient symptoms are improved here in the ER Reevaluation #3: 06/09/23 19:21 Patient informed results and questions answered Reevaluation #4: 06/09/23 19:21 Was pt. sent in by a medical professional or institution? @ -no Did you speak to anyone other than the patient for history? @ -no Did you review nursing and triage notes? @ -agree Were old charts reviewed? @ -yes Differential Diagnosis? @ -prior EKG interpreted by me (3pts min.)? @ -no X-rays interpreted by me (1pt min.)? @ -no CT interpreted by me (1pt min.)? @ -no U/S interpreted by me (1pt. min.)? @ -no What testing was considered but not performed? (CT, X-rays, U/S, labs)? Why? @ -no What meds were considered but not given? Why? @ -no Did you discuss the management of the patient with other professionals? @ -no Did you reconcile home meds? @ -no Was smoking cessation discussed for >3mins.? @ -no Was critical care preformed (if so, how long)? @ -no Were there social determinants of health that impacted care today? How? (Homelessness, low income, unemployed, alcoholism, drug addiction, transportation, low edu. Level, literacy, decrease access to med. care, prison, rehab)? @ -no Was there de-escalation of care discussed even if they declined? (Discuss DNR or withdrawal of care, Hospice)? @ -no What co-morbidities impacted this encounter? (DM, HTN, Smoking, COPD, CAD, Cancer, CVA, Hep., AIDS, mental health diagnosis, sleep apnea, morbid obesity)? @ -none Was patient admitted / discharged? @ -67 male to the emergency department for evaluation of headache today. Headache is resolved here in the ER he feels well and can be discharged home Discharge Undiagnosed new problem with uncertain prognosis? @ -no Drug Therapy requiring intensive monitoring for toxicity (Heparin, Nitro, Insulin, Cardizem)? @ -no Were any procedures done? @ -no Diagnosis/symptom? @ -Migraine headache Acute, or Chronic, or Acute on Chronic? @ -acute Uncomplicated (without systemic symptoms) or Complicated (systemic symptoms)? @ -complicated Side effects of treatment? @ -no Exacerbation, Progression, or Severe Exacerbation] @ -no Poses a threat to life or bodily function? @ -no Reevaluation #5: 06/09/23 19:21 Differential Headache: Migraine, tension, cluster, carbon monoxide, central venous thrombosis, pension karma temporal arteritis, acute closure glaucoma, intercranial hemorrhage, mast oiditis, sinusitis, head injury, this is not meant to be an all-inclusive list. Medical Decision Making - Medical Decision Making 67 male to the emergency department for evaluation of headache today. Headache is resolved here in the ER he feels well and can be discharged home Disposition Clinical Impression: Headache, Intractable headache, Nausea, Migraine Disposition: HOME SELF-CARE Condition: Good Instructions (If sedation given, give patient instructions): Acute Headache (ED) Is patient prescribed a controlled substance at d/c from ED?: No Referrals: None,Stated [Primary Care Provider] - 1-2 days Time of Disposition: 19:20
[2023-06-09 20:00] VITALS: BP 148/68; PULSE 68; RESP 16
== END 2023-06-09 20:00 | disposition home or self-care (01) ==
LOC: EC 18:06
DX: G43.919 Migraine, unspecified, intractable, without status migrainosus (principal); I10 Essential (primary) hypertension; J44.9 Chronic obstructive pulmonary disease, unspecified; K21.9 Gastro-esophageal reflux disease without esophagitis; I25.10 Atherosclerotic heart disease of native coronary artery without angina pectoris; Z79.82 Long term (current) use of aspirin; Z79.899 Other long term (current) drug therapy; Z87.891 Personal history of nicotine dependence; Z86.73 Personal history of transient ischemic attack (TIA), and cerebral infarction without residual deficits; Z88.6 Allergy status to analgesic agent; Z88.5 Allergy status to narcotic agent
CPT/HCPCS: 99284; 96372; S0183; J1170

== ENCOUNTER → 2023-06-24 | Outpatient (CLI) | payer MEDICARE, OTHER ==
[2023-06-24 20:21] LABS: INR <0.93 sec (0.93-1.11); Prothrombin Time 10.1 sec (9.9-11.9)
[2023-06-24 20:54] LABS: Basophils # (A) 0.02 X 10*3/uL (0.00-0.10); Basophils % (A) 0.7 %; Eosinophils # (A) 0.01 X 10*3/uL (0.04-0.35); Eosinophils % (A) 0.3 %; HCT 39.1 % (39.6-50.0); HGB 12.4 d/dL (13.0-17.0); Lymphocytes # (A) 0.85 X 10*3/uL (0.90-5.00); Lymphocytes % (A) 27.8 %; MCHC 31.7 d/dL (32.0-37.0); MCV 88.3 FL (80.0-97.0); Mean Platelet Volume 8.7 FL (9.5-12.2); Monocytes # (A) 0.29 X 10*3/uL (0.20-1.00); Monocytes % (A) 9.5 %; NRBC Per 100 WBC 0 X 10*3/uL (0.00-0.01); Neutrophils # (A) 1.88 X 10*3/uL (1.80-7.70); Neutrophils % (A) 61.4 %; Platelet Count 365 X 10*3/uL (140-440); RBC 4.43 X 10*6/uL (4.40-5.60); RDW 13.8 % (11.5-14.5); WBC 3.06 X 10*3/uL (4.50-10.00)
[2023-06-24 21:12] LABS: ALT 13 U/L (10-49); AST 17 U/L (14-35); Albumin 4.5 d/dL (3.8-4.9); Albumin/Globulin Ratio 2.14 Ratio (1.60-3.17); Alkaline Phosphatase 62 U/L (41-126); BUN/Creat Ratio 8.33 Ratio (12.00-20.00); Calcium 9.5 mg/dL (8.7-10.3); Carbon Dioxide 23.4 mmol/L (21.6-31.8); Chloride 105 mmol/L (96-109); Chol/HDL Ratio 3.72 Ratio; Globulin 2.1 d/dL (1.6-3.3); Glucose 111 mg/dL (70-110); LDL Cholesterol,Calculated 146.6 mg/dL (0.0-131.0); Potassium 4.4 mmol/L (3.5-5.5); Sodium 141 mmol/L (135-145); Total Bilirubin 0.2 mg/dL (0.3-1.2); Total Protein 6.6 d/dL (6.2-8.2)
== END | disposition home or self-care (01) ==
LOC: LABWHC1 13:52
PROVIDERS: ATTEND Orthopaedic Surgery
DX: Z01.812 Encounter for preprocedural laboratory examination (principal); Z12.5 Encounter for screening for malignant neoplasm of prostate; Z11.59 Encounter for screening for other viral diseases; M17.12 Unilateral primary osteoarthritis, left knee; I10 Essential (primary) hypertension; Z22.322 Carrier or suspected carrier of Methicillin resistant Staphylococcus aureus
CPT/HCPCS: 36415; 80053; 80061; 84153; 84439; 84443; 85025; 85610; 86803; 87070

== ENCOUNTER 2023-06-27 14:40 | Inpatient (IN) | payer MEDICARE, OTHER ==
--- NOTE | 2023-06-27 15:19 | ED ---
General Adult HPI - General Chief complaint: Chest Pain Stated complaint: Chest Pain Time Seen by Provider: 06/27/23 15:10 Source: patient Mode of arrival: ambulatory Limitations: no limitations - History of Present Illness Initial comments: Patient presents to the ED complaining of having intermittent central chest pressure radiating to the left side of his jaw and left arm for the past 11 hours or so. Patient also states that he has had a cough and mild rhinorrhea. Patient admits to also feeling nauseated and diaphoretic at times. Patient denies trauma or injury, fever or chills, headache, focal numbness/weakness/neuro deficit, back pain, pleuritic pain, hemoptysis, palpitations, dizziness, syncope, abdominal pain, vomiting/diarrhea, bloody or melanotic stool, decreased urine output, dysuria or urinary symptoms, leg or calf swelling or pain, or any other symptoms or complaints. Patient states that he has a history of coronary stents. - Related Data Home Medications Medication Instructions Recorded Confirmed tiZANidine [Zanaflex] 4 mg PO HS 02/26/18 06/27/23 oxyCODONE-APAP 10-325MG [Percocet 1 tab PO Q6H 01/02/20 06/27/23 10-325 mg] Aspirin EC [Ecotrin Low Dose] 81 mg PO DAILY 04/23/23 06/27/23 Escitalopram [Lexapro] 10 mg PO DAILY 04/23/23 06/27/23 Folic Acid 1 mg PO DAILY 04/23/23 06/27/23 Pantoprazole Sodium [Protonix] 40 mg PO DAILY 04/23/23 06/27/23 Diclofenac Sodium 3% Gel 1 applic TOPICAL QID PRN 05/28/23 06/27/23 Amitriptyline HCl [Elavil] 10 mg PO HS PRN 06/27/23 06/27/23 Amoxic-Pot Clav 875-125Mg 1 tab PO Q12HR 06/27/23 06/27/23 [Augmentin 875-125] Atorvastatin [Lipitor] 80 mg PO HS 06/27/23 06/27/23 Benzonatate [Tessalon Perle] 200 mg PO TID PRN 06/27/23 06/27/23 Dicyclomine [Bentyl] 20 mg PO TID 06/27/23 06/27/23 Ezetimibe [Zetia] 10 mg PO DAILY 06/27/23 06/27/23 Gabapentin [Neurontin] 400 mg PO TID 06/27/23 06/27/23 HYDROmorphone [Dilaudid] 4 mg PO QID PRN 06/27/23 06/27/23 carvediloL [Coreg] 12.5 mg PO BID 06/27/23 06/27/23 hydrALAZINE HCL [Apresoline] 50 mg PO BID 06/27/23 06/27/23 methylPREDNISolone [Medrol Dose See Taper PO DIRECTED 06/27/23 06/27/23 Pack] Previous Rx's Medication Instructions Recorded amLODIPine [Norvasc] 10 mg PO DAILY #30 tab 04/26/23 Allergies Allergy/AdvReac Type Severity Reaction Status Date / Time codeine Allergy Itching Verified 06/27/23 16:46 ibuprofen [From Motrin] Allergy Rash/Hives Verified 06/27/23 16:46 ketorolac tromethamine Allergy Rash/Hives Verified 06/27/23 16:46 [From Toradol] Review of Systems ROS Statement: Those systems with pertinent positive or pertinent negative responses have been documented in the HPI. ROS Other: All systems not noted in ROS Statement are negative. Past Medical History Past Medical History: Coronary Artery Disease (CAD), Chest Pain / Angina, COPD, Deep Vein Thrombosis (DVT), GERD/Reflux, Hyperlipidemia, Hypertension, Osteoarthritis (OA), Thyroid Disorder Additional Past Medical History / Comment(s): Occasional palpitations, gastritis, small hiatal hernia, diverticular dx, pt states years ago he had PUD, chronic low back pain, chronic pain syndrome, migraines, DVT L arm, numbness/tingling bilateral lower legs, bilateral past R hand fracture, arthritis multiple joints, hyperthyroid, sinus problems. History of Any Multi-Drug Resistant Organisms: None Reported Past Surgical History: Back Surgery, Cholecystectomy, Heart Catheterization With Stent, Orthopedic Surgery Additional Past Surgical History / Comment(s): EGDs/colonoscopies, multiple low back surgeries, bilateral arm and bilateral thigh surgeries for brown recluse spider bites with infection, morphine pain pump insertion and removal due to infection, PCI with stents, L rotator cuff repair, L knee arthroscopy, cervical fusion/cage, R cataract removal. 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 He lived to be 82 yrs old. Mother History Unknown: Yes Family Medical History: Hypertension, Myocardial Infarction (ME) Additional Family Medical History / Comment(s): Mother of a ME at the age of 55yrs. Brother(s) Family Medical History: Cancer, COPD Additional Family Medical History / Comment(s): Leukemia General Exam Limitations: no limitations General appearance: alert, in no apparent distress Head exam: Present: normocephalic Eye exam: Present: normal appearance ENT exam: Present: mucous membranes moist Neck exam: Present: other (Trachea is in midline) Respiratory exam: Present: normal lung sounds bilaterally. Absent: respiratory distress, wheezes, rales, rhonchi, stridor, chest wall tenderness Cardiovascular Exam: Present: regular rate, normal rhythm, normal heart sounds, other (Normal radial pulses bilaterally) GI/Abdominal exam: Present: soft. Absent: distended, tenderness, guarding Extremities exam: Present: other (Negative Homans sign bilaterally). Absent: tenderness, pedal edema, calf tenderness Neurological exam: Present: alert, oriented X3. Absent: motor sensory deficit Psychiatric exam: Present: normal affect, normal mood Skin exam: Present: warm, dry, intact, normal color Course Vital Signs 06/27/23 14:48 Temperature 96.9 F L Pulse Rate 106 H Respiratory 17 Rate Blood Pressure 186/113 O2 Sat by Pulse 99 Oximetry - Reevaluation(s) Reevaluation #1: 06/27/23 18:00 Patient denies development of any new symptoms while in the ED. Patient remains alert and breathing comfortably with a normal room air oxygen saturation. Patient is aware of his test results, and he agrees with hospital admission at this time. 06/27/23 18:26 Case, H&P, test results and ED management thus far were discussed with Dr. Rahman. She accepts hospital admission. She agrees with cardiology consultation. She has no further recommendations at this time. EKG Findings - EKG Comments: EKG Findings:: ED physician interpretation (interpreted by me): Sinus tachycardia, ventricular rate of 101 bpm, no ectopy, normal NM and QRS inter vals, normal QT interval, borderline rightward axis, no ST or T-wave abnormality Medical Decision Making - Medical Decision Making Was pt. sent in by a medical professional or institution (, FAITH, INSULATION EXTRUDER OPERATOR, urgent care, hospital, or senior care...) When possible be specific @ -No Did you speak to anyone other than the patient for history (EMS, parent, family, police, friend...)? What history was obtained from this source @ -No Did you review nursing and triage notes (agree or disagree)? Why? @ -I reviewed and agree with nursing and triage notes Were old charts reviewed (outside hosp., previous admission, EMS record, old EKG, old radiological studies, urgent care reports/EKG's, senior care records)? Report findings @ -No old charts were reviewed Differential Diagnosis (chest pain, altered mental status, abdominal pain women, abdominal pain men, vaginal bleeding, weakness, fever, dyspnea, syncope, headache, dizziness, GI bleed, back pain, seizure, CVA, palpatations, mental health, musculoskeletal)? @ -Differential Chest Pain: Stable Angina, Unstable Angina, STEMI, NSTEMI, Pneumothorax, Musculoskeletal, Esophageal Spasm, GERD, pleural effusion, chest wall pain, anxiety, bronchitis, pneumonia, URI, this is not meant to be an all-inclusive list. EKG interpreted by me (3pts min.). @ -As above X-rays interpreted by me (1pt min.). @ -Chest x-ray was reviewed myself and shows no acute abnormality. I agree with the radiologist's interpretation as above. CT interpreted by me (1pt min.). @ -None done U/S interpreted by me (1pt. min.). @ -None done What testing was considered but not performed or refused? (CT, X-rays, U/S, labs)? Why? @ -None What meds were considered but not given or refused? Why? @ -None Did you discuss the management of the patient with other professionals (professionals i.e. , FAITH, INSULATION EXTRUDER OPERATOR, lab, RT, psych nurse, socially responsible investment adviser, psychiatric technician assistant, teacher, parole or probation officer, lining caser)? Give summary @ -No Was smoking cessation discussed for >3mins.? @ -No Was critical care preformed (if so, how long)? @ -No Were there social determinants of health that impacted care today? How? (Homelessness, low income, unemployed, alcoholism, drug addiction, transportation, low edu. Level, literacy, decrease access to med. care, senior care, rehab)? @ -No Was there de-escalation of care discussed even if they declined (Discuss DNR or withdrawal of care, Hospice)? DNR status @ -No What co-morbidities impacted this encounter? (DM, HTN, Smoking, COPD, CAD, Cancer, CVA, ARF, Chemo, Hep., AIDS, mental health diagnosis, sleep apnea, morbid obesity)? @ -CAD Was patient admitted / discharged? Hospital course, mention meds given and route, prescriptions, significant lab abnormalities, going to OR and other pertinent info. @ -Patient's EKG and chest x-ray are fairly unremarkable. Patient's troponin is negative. Given the patient's cardiac history and history of stents, will admit the patient to the hospital for serial troponins, cardiology consultation and monitoring/observation. Patient agrees with this plan. Dr. Rahman has accepted hospital admission. Undiagnosed new problem with uncertain prognosis? @ -No Drug Therapy requiring intensive monitoring for toxicity (Heparin, Nitro, Insulin, Cardizem)? @ -No Were any procedures done? @ -No Diagnosis/symptom? @ -chest pain Acute, or Chronic, or Acute on Chronic? @ -Acute Uncomplicated (without systemic symptoms) or Complicated (systemic symptoms)? @ -default Side effects of treatment? @ -No Exacerbation, Progression, or Severe Exacerbation? @ -No Poses a threat to life or bodily function? How? (Chest pain, USA, ME, pneumonia, PE, COPD, DKA, ARF, appy, cholecystitis, CVA, Diverticulitis, Homicidal, Suicidal, threat to staff... and all critical care pts) @ -Possibly, if the patient's chest pain turns out to be from a cardiac or serious etiology. - Lab Data Result diagrams: 06/27/23 16:39 06/27/23 16:39 Lab Results 06/27/23 06/27/23 06/27/23 Range/Units 16:39 16:39 16:39 WBC 3.0 L (3.8-10.6) k/uL RBC 4.35 (4.30-5.90) m/uL Hgb 12.9 L (13.0-17.5) gm/dL Hct 39.3 (39.0-53.0) % MCV 90.3 (80.0-100.0) fL MCH 29.6 (25.0-35.0) pg MCHC 32.7 (31.0-37.0) g/dL RDW 13.8 (11.5-15.5) % Plt Count 317 (150-450) k/uL MPV 7.1 Neutrophils % 61 % Lymphocytes % 30 % Monocytes % 6 % Eosinophils % 2 % Basophils % 0 % Neutrophils # 1.8 (1.3-7.7) k/uL Lymphocytes # 0.9 L (1.0-4.8) k/uL Monocytes # 0.2 (0-1.0) k/uL Eosinophils # 0.1 (0-0.7) k/uL Basophils # 0.0 (0-0.2) k/uL PT 10.1 (9.0-12.0) sec INR 0.9 (<1.2) APTT 24.9 (22.0-30.0) sec Sodium 136 L (137-145) mmol/L Potassium 4.4 (3.5-5.1) mmol/L Chloride 107 (98-107) mmol/L Carbon Dioxide 22 (22-30) mmol/L Anion Gap 7 mmol/L BUN 5 L (9-20) mg/dL Creatinine 0.56 L (0.66-1.25) mg/dL Est GFR (CKD-EPI)AfAm >90 (>60 ml/min/1.73 sqM) Est GFR (CKD-EPI)NonAf >90 (>60 ml/min/1.73 sqM) Glucose 102 H (74-99) mg/dL Calcium 9.3 (8.4-10.2) mg/dL Magnesium 1.8 (1.6-2.3) mg/dL Total Bilirubin 0.5 (0.2-1.3) mg/dL AST 20 (17-59) U/L ALT 15 (4-49) U/L Alkaline Phosphatase 71 (38-126) U/L Troponin I (0.000-0.034) ng/mL NT-Pro-B Natriuret Pep 43 pg/mL Total Protein 6.9 (6.3-8.2) g/dL Albumin 4.0 (3.5-5.0) g/dL Influenza Type A (PCR) (Not Detectd) Influenza Type B (PCR) (Not Detectd) RSV (PCR) (Not Detectd) SARS-CoV-2 (PCR) (Not Detectd) 06/27/23 06/27/23 Range/Units 16:39 16:39 WBC (3.8-10.6) k/uL RBC (4.30-5.90) m/uL Hgb (13.0-17.5) gm/dL Hct (39.0-53.0) % MCV (80.0-100.0) fL MCH (25.0-35.0) pg MCHC (31.0-37.0) g/dL RDW (11.5-15.5) % Plt Count (150-450) k/uL MPV Neutrophils % % Lymphocytes % % Monocytes % % Eosinophils % % Basophils % % Neutrophils # (1.3-7.7) k/uL Lymphocytes # (1.0-4.8) k/uL Monocytes # (0-1.0) k/uL Eosinophils # (0-0.7) k/uL Basophils # (0-0.2) k/uL PT (9.0-12.0) sec INR (<1.2) APTT (22.0-30.0) sec Sodium (137-145) mmol/L Potassium (3.5-5.1) mmol/L Chloride (98-107) mmol/L Carbon Dioxide (22-30) mmol/L Anion Gap mmol/L BUN (9-20) mg/dL Creatinine (0.66-1.25) mg/dL Est GFR (CKD-EPI)AfAm (>60 ml/min/1.73 sqM) Est GFR (CKD-EPI)NonAf (>60 ml/min/1.73 sqM) Glucose (74-99) mg/dL Calcium (8.4-10.2) mg/dL Magnesium (1.6-2.3) mg/dL Total Bilirubin (0.2-1.3) mg/dL AST (17-59) U/L ALT (4-49) U/L Alkaline Phosphatase (38-126) U/L Troponin I <0.012 (0.000-0.034) ng/mL NT-Pro-B Natriuret Pep pg/mL Total Protein (6.3-8.2) g/dL Albumin (3.5-5.0) g/dL Influenza Type A (PCR) Not Detected (Not Detectd) Influenza Type B (PCR) Not Detected (Not Detectd) RSV (PCR) Not Detected (Not Detectd) SARS-CoV-2 (PCR) Not Detected (Not Detectd) - Radiology Data Chest x-ray: No acute pulmonary process. Disposition Clinical Impression: Chest pain Disposition: ADMITTED IP TO THIS HOSP Condition: Stable Is patient prescribed a controlled substance at d/c from ED?: No Referrals: None,Stated [Primary Care Provider] - 1-2 days Time of Disposition: 18:27
[2023-06-27] MEDS ORDERED: NITROGLYCERIN SL TABS 0.4 MG TAB SUBLINGUAL STA (15:50)
--- NOTE | 2023-06-27 16:36 | XR ---
EXAMINATION TYPE: XR chest 2V DATE OF EXAM: 06/27/2023 COMPARISON: 05/28/2023 INDICATION: Chest pain TECHNIQUE: Frontal and lateral views of the chest are obtained. FINDINGS: The heart size is normal. The pulmonary vasculature is normal. The lungs are clear. Postsurgical anterior cervical fusion changes are evident IMPRESSION: 1. No acute pulmonary process.
[2023-06-27 16:48] LABS: Basophils % (A) 0 %; Eosinophils # (A) 0.1 k/uL (0-0.7); Eosinophils % (A) 2 %; HCT 39.3 % (39.0-53.0); HGB 12.9 gm/dL (13.0-17.5); Lymphocytes # (A) 0.9 k/uL (1.0-4.8); Lymphocytes % (A) 30 %; MCH 29.6 pg (25.0-35.0); MCHC 32.7 g/dL (31.0-37.0); MCV 90.3 fL (80.0-100.0); Mean Platelet Volume 7.1; Monocytes # (A) 0.2 k/uL (0-1.0); Monocytes % (A) 6 %; Neutrophils # (A) 1.8 k/uL (1.3-7.7); Neutrophils % (A) 61 %; Platelet Count 317 k/uL (150-450); RBC 4.35 m/uL (4.30-5.90); RDW 13.8 % (11.5-15.5)
[2023-06-27 16:58] LABS: INR 0.9 (<1.2); Partial Thromboplastin Time 24.9 sec (22.0-30.0); Prothrombin Time 10.1 sec (9.0-12.0)
[2023-06-27] MEDS ORDERED: ASPIRIN 325 MG TAB PO STA (17:05)
[2023-06-27 17:21] LABS: ALT 15 U/L (4-49); AST 20 U/L (17-59); African American GFR (CKD) >90 (>60 ml/min/1.73 sqM); Alkaline Phosphatase 71 U/L (38-126); Anion Gap 7 mmol/L; Blood Urea Nitrogen 5 mg/dL (9-20); Calcium 9.3 mg/dL (8.4-10.2); Carbon Dioxide 22 mmol/L (22-30); Chloride 107 mmol/L (98-107); Glucose 102 mg/dL (74-99); Magnesium 1.8 mg/dL (1.6-2.3); Non-African American GFR(CKD) >90 (>60 ml/min/1.73 sqM); Potassium 4.4 mmol/L (3.5-5.1); Sodium 136 mmol/L (137-145); Total Bilirubin 0.5 mg/dL (0.2-1.3); Total Protein 6.9 g/dL (6.3-8.2)
[2023-06-27 17:30] LABS: NT-Pro-B-Type Natriuretic Pept 43 pg/mL
[2023-06-27] MEDS ORDERED: NALOXONE 0.4 MG/ML 1 ML VIAL IV PRN (18:27)
[2023-06-27] MEDS: oxyCODONE-APAP 10-325MG 1 EACH TAB PO SCH (21:20)
[2023-06-27] MEDS: HYDROmorphone 2 MG TAB PO PRN (21:21)
[2023-06-27] MEDS: DICYCLOMINE 20 MG TAB PO SCH (21:21)
[2023-06-27] MEDS: GABAPENTIN 400 MG CAP PO SCH (21:21)
[2023-06-27] MEDS: tiZANidine 4 MG TAB PO SCH (21:21)
[2023-06-27] MEDS: hydrALAZINE HCL 50 MG TAB PO SCH (21:21)
[2023-06-27] MEDS: carvediloL 12.5 MG TAB PO SCH (21:21)
[2023-06-27] MEDS: ATORVASTATIN 80 MG TAB PO SCH (21:21)
[2023-06-28] MEDS ORDERED: NITROGLYCERIN SL TABS 0.4 MG TAB SUBLINGUAL PRN ×2 (01:50→13:07)
[2023-06-28] MEDS: oxyCODONE-APAP 10-325MG 1 EACH TAB PO SCH ×4 (01:54→20:48)
[2023-06-28] MEDS: HYDROmorphone 2 MG TAB PO PRN ×4 (01:55→22:04)
[2023-06-28] MEDS ORDERED: hydrALAZINE HCL 20 MG/ML 1 ML VIAL IVP STA (02:35)
[2023-06-28] MEDS: carvediloL 12.5 MG TAB PO SCH ×2 (06:27→17:26)
[2023-06-28] MEDS: EZETIMIBE 10 MG TAB PO SCH (08:16)
[2023-06-28] MEDS: GABAPENTIN 400 MG CAP PO SCH ×3 (08:16→20:48)
[2023-06-28] MEDS: ESCITALOPRAM 10 MG TAB PO SCH (08:16)
[2023-06-28] MEDS: hydrALAZINE HCL 50 MG TAB PO SCH ×3 (08:16→20:49)
[2023-06-28] MEDS: ASPIRIN 81 MG PO SCH (08:16)
[2023-06-28] MEDS: amLODIPine 10 MG TAB PO SCH (08:16)
[2023-06-28] MEDS: FOLIC ACID 1 MG TAB PO SCH (08:16)
[2023-06-28] MEDS: DICYCLOMINE 20 MG TAB PO SCH ×3 (08:16→20:48)
[2023-06-28] MEDS: PANTOPRAZOLE 40 MG TABLET PO SCH (08:16)
[2023-06-28] MEDS ORDERED: hydrALAZINE HCL 50 MG TAB PO ONE (09:00)
[2023-06-28 09:04] LABS: Basophils # (A) 0.02 X 10*3/uL (0.00-0.10); Basophils % (A) 0.7 %; Eosinophils # (A) 0.04 X 10*3/uL (0.04-0.35); Eosinophils % (A) 1.5 %; HCT 37.8 % (39.6-50.0); HGB 12.4 d/dL (13.0-17.0); Immature Grans, Automated 0 %; Lymphocytes # (A) 1.08 X 10*3/uL (0.90-5.00); Lymphocytes % (A) 39.3 %; MCH 28.7 pg (27.0-32.0); MCHC 32.8 d/dL (32.0-37.0); MCV 87.5 FL (80.0-97.0); Mean Platelet Volume 8.4 FL (9.5-12.2); Monocytes # (A) 0.36 X 10*3/uL (0.20-1.00); Monocytes % (A) 13.1 %; NRBC Per 100 WBC 0 X 10*3/uL (0.00-0.01); Neutrophils # (A) 1.25 X 10*3/uL (1.80-7.70); Neutrophils % (A) 45.4 %; Platelet Count 325 X 10*3/uL (140-440); RBC 4.32 X 10*6/uL (4.40-5.60); RDW 13.8 % (11.5-14.5); WBC 2.75 X 10*3/uL (4.50-10.00)
[2023-06-28 10:18] LABS: ALT 12 U/L (10-49); AST 16 U/L (14-35); Albumin 4.1 d/dL (3.8-4.9); Albumin/Globulin Ratio 1.95 Ratio (1.60-3.17); Alkaline Phosphatase 61 U/L (41-126); Blood Urea Nitrogen 6.3 mg/dL (9.0-27.0); Calcium 9.7 mg/dL (8.7-10.3); Carbon Dioxide 23.3 mmol/L (21.6-31.8); Chloride 107 mmol/L (96-109); Globulin 2.1 d/dL (1.6-3.3); Glucose 99 mg/dL (70-110); Potassium 4.1 mmol/L (3.5-5.5); Sodium 140 mmol/L (135-145); Total Bilirubin 0.3 mg/dL (0.3-1.2); Total Protein 6.2 d/dL (6.2-8.2)
--- NOTE | 2023-06-28 10:49 | P.HPIM ---
History of Present Illness H&P Date: 06/27/23 Chief Complaint: Chest pain 67-year-old Patient, history of coronary artery disease, hypertension, hyperlipidemia, hypothyroidism, COPD, DVT, presents to the ED complaining of having intermittent central chest pressure radiating to the left side of his jaw and left arm for the past 11 hours or so. Patient also states that he has had a cough and mild rhinorrhea. Patient admits to also feeling nauseated and diaphoretic at times. Patient denies trauma or injury, fever or chills, headache, focal numbness/weakness/neuro deficit, back pain, pleuritic pain, hemoptysis, palpitations, dizziness, syncope, abdominal pain, vomiting/diarrhea, bloody or melanotic stool, decreased urine output, dysuria or urinary symptoms, leg or calf swelling or pain, or any other symptoms or complaints. Patient states that he has a history of coronary stents. EKG Findings: Sinus tachycardia, ventricular rate of 101 bpm, no ectopy, normal SD and QRS intervals, normal QT interval, borderline rightward axis, no ST or T- wave abnormality Chest x-ray reveals no acute abnormality Blood work reveals WBC of 3.0, hemoglobin of 12.9). Count of 3.7, sodium 136, potassium 4.4, BUN/creatinineis 0.56 Influenza A and B, RSV, COVID-19 PCR negative Patient does have a history of coronary artery disease with moderate heart score; will be admitted for further evaluation by cardiology service Review of Systems REVIEW OF SYSTEMS: CONSTITUTIONAL: No fever, no malaise, no fatigue. HEENT: No recent visual problems or hearing problems. Denied any sore throat. CARDIOVASCULAR: Complaints of chest pain, orthopnea, PND, no palpitations, no syncope. PULMONARY: No shortness of breath, no cough, no hemoptysis. GASTROINTESTINAL: No diarrhea, no nausea, no vomiting, no abdominal pain. NEUROLOGICAL: No headaches, no weakness, no numbness. HEMATOLOGICAL: Denies any bleeding or petechiae. GENITOURINARY: Denies any burning micturition, frequency, or urgency. MUSCULOSKELETAL/RHEUMATOLOGICAL: Denies any joint pain, swelling, or any muscle pain. ENDOCRINE: Denies any polyuria or polydipsia. The rest of the 14-point review of systems is negative. Past Medical History Past Medical History: Coronary Artery Disease (CAD), Chest Pain / Angina, COPD, Deep Vein Thrombosis (DVT), GERD/Reflux, Hyperlipidemia, Hypertension, Osteoarthritis (OA), Thyroid Disorder Additional Past Medical History / Comment(s): Occasional palpitations, gastritis, small hiatal hernia, diverticular dx, pt states years ago he had PUD, chronic low back pain, chronic pain syndrome, migraines, DVT L arm, numbness/tingling bilateral lower legs, bilateral past R hand fracture, arthritis multiple joints, hyperthyroid, sinus problems. History of Any Multi-Drug Resistant Organisms: None Reported Past Surgical History: Back Surgery, Cholecystectomy, Heart Catheterization With Stent, Orthopedic Surgery Additional Past Surgical History / Comment(s): EGDs/colonoscopies, multiple low back surgeries, bilateral arm and bilateral thigh surgeries for brown recluse spider bites with infection, morphine pain pump insertion and removal due to infection, PCI with stents, L rotator cuff repair, L knee arthroscopy, cervical fusion/cage, R cataract removal. 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 He lived to be 82 yrs old. Mother History Unknown: Yes Family Medical History: Hypertension, Myocardial Infarction (NE) Additional Family Medical History / Comment(s): Mother of a NE at the age of 55yrs. Brother(s) Family Medical History: Cancer, COPD Additional Family Medical History / Comment(s): Leukemia Medications and Allergies Home Medications Medication Instructions Recorded Confirmed Type tiZANidine [Zanaflex] 4 mg PO HS 02/26/18 06/27/23 History oxyCODONE-APAP 10-325MG [Percocet 1 tab PO Q6H 01/02/20 06/27/23 History 10-325 mg] Aspirin EC [Ecotrin Low Dose] 81 mg PO DAILY 04/23/23 06/27/23 History Escitalopram [Lexapro] 10 mg PO DAILY 04/23/23 06/27/23 History Folic Acid 1 mg PO DAILY 04/23/23 06/27/23 History Pantoprazole Sodium [Protonix] 40 mg PO DAILY 04/23/23 06/27/23 History amLODIPine [Norvasc] 10 mg PO DAILY #30 tab 04/26/23 06/27/23 Rx Diclofenac Sodium 3% Gel 1 applic TOPICAL QID PRN 05/28/23 06/27/23 History Amitriptyline HCl [Elavil] 10 mg PO HS PRN 06/27/23 06/27/23 History Amoxic-Pot Clav 875-125Mg 1 tab PO Q12HR 06/27/23 06/27/23 History [Augmentin 875-125] Atorvastatin [Lipitor] 80 mg PO HS 06/27/23 06/27/23 History Benzonatate [Tessalon Perle] 200 mg PO TID PRN 06/27/23 06/27/23 History Dicyclomine [Bentyl] 20 mg PO TID 06/27/23 06/27/23 History Ezetimibe [Zetia] 10 mg PO DAILY 06/27/23 06/27/23 History Gabapentin [Neurontin] 400 mg PO TID 06/27/23 06/27/23 History HYDROmorphone [Dilaudid] 4 mg PO QID PRN 06/27/23 06/27/23 History carvediloL [Coreg] 12.5 mg PO BID 06/27/23 06/27/23 History hydrALAZINE HCL [Apresoline] 50 mg PO BID 06/27/23 06/27/23 History methylPREDNISolone [Medrol Dose See Taper PO DIRECTED 06/27/23 06/27/23 History Pack] Allergies Allergy/AdvReac Type Severity Reaction Status Date / Time codeine Allergy Itching Verified 06/27/23 16:46 ibuprofen [From Motrin] Allergy Rash/Hives Verified 06/27/23 16:46 ketorolac tromethamine Allergy Rash/Hives Verified 06/27/23 16:46 [From Toradol] Physical Exam Vitals: Vital Signs Temp Pulse Resp BP Pulse Ox 06/27/23 20:13 89 20 180/105 98 06/27/23 19:29 92 20 174/117 98 06/27/23 18:32 107 H 20 168/105 98 06/27/23 14:48 96.9 F L 106 H 17 186/113 99 Intake and Output 06/27/23 06/27/23 06/27/23 06:59 14:59 22:59 Other: Weight 82.554 kg General appearance: alert, in no apparent distress Head exam: Present: normocephalic Eye exam: Present: normal appearance ENT exam: Present: mucous membranes moist Neck exam: Present: other (Trachea is in midline) Respiratory exam: Present: normal lung sounds bilaterally. Absent: respiratory distress, wheezes, rales, rhonchi, stridor, chest wall tenderness Cardiovascular Exam: Present: regular rate, normal rhythm, normal heart sounds, other (Normal radial pulses bilaterally) GI/Abdominal exam: Present: soft. Absent: distended, tenderness, guarding Extremities exam: Present: other (Negative Homans sign bilaterally). Absent: tenderness, pedal edema, calf tenderness Neurological exam: Present: alert, oriented X3. Absent: motor sensory deficit Psychiatric exam: Present: normal affect, normal mood Skin exam: Present: warm, dry, intact, normal color Results CBC & Chem 7: 06/28/23 05:45 06/28/23 05:45 Labs: Abnormal Lab Results - Last 24 Hours (Table) 06/27/23 06/27/23 Range/Units 16:39 16:39 WBC 3.0 L (3.8-10.6) k/uL Hgb 12.9 L (13.0-17.5) gm/dL Lymphocytes # 0.9 L (1.0-4.8) k/uL Sodium 136 L (137-145) mmol/L BUN 5 L (9-20) mg/dL Creatinine 0.56 L (0.66-1.25) mg/dL Glucose 102 H (74-99) mg/dL Assessment and Plan Assessment: 1. Chest pain rule out acute coronary syndrome - Patient does have history of coronary artery disease and reports history of stent placement - We will continue with home dose of aspirin, Coreg, Lipitor and Zetia - Recommend 2-D echo; cardiology is consulted 2. Hypertension; continue with home dose of amlodipine, Coreg 12.5 mg twice a day and hydralazine 100 mg 3 times a day 3. Hyperlipidemia; Lipitor 80 mg by mouth daily at bedtime along with Zetia 10 mg daily 4. Neuropathy; continue with home dose of Neurontin 400 mg 3 times a day 5. Chronic back pain; continue with home dose of oxycodone and Zanaflex 4 mg daily at bedtime 6. Depression; DVT prophylaxis; SCDs CODE STATUS; full code
[2023-06-28] MEDS ORDERED: ASPIRIN 325 MG TAB PO STA (13:07)
[2023-06-28] MEDS ORDERED: ATORVASTATIN 80 MG TAB PO STA (13:07)
[2023-06-28] MEDS ORDERED: ALPRAZolam 0.25 MG TAB PO PRN (13:07)
[2023-06-28] MEDS ORDERED: ALPRAZolam 0.5 MG TAB PO PRN (13:07)
--- NOTE | 2023-06-28 13:41 | CONS ---
CONSULTATION CHIEF COMPLAINT: Chest pain. HISTORY OF PRESENT ILLNESS: Salomon is a 67-year-old gentleman, who is well known to our practice, has history of coronary artery disease, status post prior angioplasty of the LAD, hypertension, dyslipidemia, chronic pain, and medical noncompliance. He has been in the hospital on multiple occasions within the recent past. His last cardiac catheterization was in April of 2019 that revealed a patent stent within the LAD. He had an echocardiogram in April 2023 that revealed normal LV function with mild aortic stenosis. His last stress test was in 2020 that did not reveal any ischemia. At the time of my evaluation this morning, he appears comfortable at rest and hemodynamically stable. He complains of chest pain, left arm discomfort, and jaw pain that responded to sublingual nitroglycerin. He is also receiving Dilaudid for pain. MEDICATIONS AT HOME: Include, 1. Dilaudid 4 mg p.o. q.i.d. 2. Bentyl. 3. Zanaflex. 4. Apresoline. 5. Coreg 12.5 b.i.d. 6. Protonix. 7. Neurontin. 8. Zetia. 9. Percocet. 10.Lipitor. 11.Aspirin. 12.Lexapro. 13.Norvasc. 14.Elavil. 15.Medrol Dosepak. 16.Augmentin. ALLERGIES: He is allergic to codeine, Motrin, and Toradol. FAMILY HISTORY: Negative for premature coronary artery disease. SOCIAL HISTORY: Negative for current smoking, EtOH abuse, or drug abuse. REVIEW OF SYSTEMS: review of systems has been performed. Pertinents are as documented. PHYSICAL EXAMINATION: GENERAL: Comfortable at rest. VITAL SIGNS: Blood pressure is poorly controlled at 182/107, it is 166/97 this morning. NECK: There is no jugular venous distention. Carotid upstroke is normal. There is no bruit. CHEST: Reveals good air entry bilaterally. HEART: Reveals first and second heart sounds. An S4 is heard. ABDOMEN: Soft. EXTREMITIES: Did not reveal any edema. Peripheral pulses are felt. ASSESSMENT: 1. Precordial chest pain. 2. Uncontrolled hypertension. 3. Coronary artery disease, status post prior angioplasty. PLAN: I am going to better control his blood pressure by increasing the hydralazine. I am going to ask Dr. BASILIA Go, his primary recovery collector, to perform a cardiac catheterization on him, especially given the fact that the patient is scheduled for an orthopedic surgery a week from now. MMDANA / BRANDANN: [id number] /
[2023-06-28] MEDS: ATORVASTATIN 80 MG TAB PO SCH (20:49)
[2023-06-28] MEDS: tiZANidine 4 MG TAB PO SCH (20:49)
--- NOTE | 2023-06-28 21:13 | P.PN ---
Subjective Progress Note Date: 06/28/23 Principal diagnosis: Chest pain 67-year-old Patient, history of coronary artery disease, hypertension, hyperlipidemia, hypothyroidism, COPD, DVT, presents to the ED complaining of having intermittent central chest pressure radiating to the left side of his jaw and left arm for the past 11 hours or so. Patient also states that he has had a cough and mild rhinorrhea. Patient admits to also feeling nauseated and diaphoretic at times. Patient denies trauma or injury, fever or chills, headache, focal numbness/weakness/neuro deficit, back pain, pleuritic pain, hemoptysis, palpitations, dizziness, syncope, abdominal pain, vomiting/diarrhea, bloody or melanotic stool, decreased urine output, dysuria or urinary symptoms, leg or calf swelling or pain, or any other symptoms or complaints. Patient states that he has a history of coronary stents. EKG Findings: Sinus tachycardia, ventricular rate of 101 bpm, no ectopy, normal [place] and QRS intervals, normal QT interval, borderline rightward axis, no ST or T- wave abnormality Chest x-ray reveals no acute abnormality Blood work reveals WBC of 3.0, hemoglobin of 12.9). Count of 3.7, sodium 136, potassium 4.4, BUN/creatinineis 0.56 Influenza A and B, RSV, COVID-19 PCR negative Patient does have a history of coronary artery disease with moderate heart score; will be admitted for further evaluation by cardiology service -- Patient continues to complain of anginal symptoms; patient refuses sublingual nitroglycerin; relies on IV Dilaudid -- Patient has been evaluated by cardiology with plans for possible cardiac catheterization tomorrow morning Objective - Vital Signs Vital signs: Vital Signs Temp 97.7 F 06/28/23 07:00 Pulse 87 06/28/23 07:00 Resp 16 06/28/23 07:00 BP 166/97 06/28/23 07:00 Pulse Ox 98 06/28/23 07:00 FiO2 Intake & Output 06/27/23 06/28/23 06/28/23 18:59 06:59 18:59 Weight 82.554 kg 82.554 kg Other: Voiding Method Toilet # Voids 1 - Exam General appearance: alert, in no apparent distress Head exam: Present: normocephalic Eye exam: Present: normal appearance ENT exam: Present: mucous membranes moist Neck exam: Present: other (Trachea is in midline) Respiratory exam: Present: normal lung sounds bilaterally. Absent: respiratory distress, wheezes, rales, rhonchi, stridor, chest wall tenderness Cardiovascular Exam: Present: regular rate, normal rhythm, normal heart sounds, other (Normal radial pulses bilaterally) GI/Abdominal exam: Present: soft. Absent: distended, tenderness, guarding Extremities exam: Present: other (Negative Homans sign bilaterally). Absent: tenderness, pedal edema, calf tenderness Neurological exam: Present: alert, oriented X3. Absent: motor sensory deficit Psychiatric exam: Present: normal affect, normal mood Skin exam: Present: warm, dry, intact, normal color - Labs CBC & Chem 7: 06/28/23 05:45 06/28/23 05:45 Labs: Abnormal Lab Results - Last 24 Hours (Table) 06/27/23 06/27/23 06/28/23 Range/Units 16:39 16:39 05:45 WBC 3.0 L (3.8-10.6) k/uL RBC (4.40-5.60) X 10*6/uL Hgb 12.9 L (13.0-17.5) gm/dL Hct (39.6-50.0) % MPV (9.5-12.2) FL Neutrophils # (1.80-7.70) X 10*3/uL Lymphocytes # 0.9 L (1.0-4.8) k/uL Sodium 136 L (137-145) mmol/L BUN 5 L 6.3 L (9-20) mg/dL Creatinine 0.56 L (0.66-1.25) mg/dL BUN/Creatinine Ratio 10.50 L (12.00-20.00) Ratio Glucose 102 H (74-99) mg/dL 06/28/23 Range/Units 05:45 WBC 2.75 L (3.8-10.6) k/uL RBC 4.32 L (4.40-5.60) X 10*6/uL Hgb 12.4 L (13.0-17.5) gm/dL Hct 37.8 L (39.6-50.0) % MPV 8.4 L (9.5-12.2) FL Neutrophils # 1.25 L (1.80-7.70) X 10*3/uL Lymphocytes # (1.0-4.8) k/uL Sodium (137-145) mmol/L BUN (9-20) mg/dL Creatinine (0.66-1.25) mg/dL BUN/Creatinine Ratio (12.00-20.00) Ratio Glucose (74-99) mg/dL Assessment and Plan Assessment: 1. Chest pain rule out acute coronary syndrome - Patient does have history of coronary artery disease and reports history of stent placement - We will continue with home dose of aspirin, Coreg, Lipitor and Zetia - Recommend 2-D echo; cardiology is consulted 2. Hypertension; continue with home dose of amlodipine, Coreg 12.5 mg twice a day and hydralazine 100 mg 3 times a day 3. Hyperlipidemia; Lipitor 80 mg by mouth daily at bedtime along with Zetia 10 mg daily 4. Neuropathy; continue with home dose of Neurontin 400 mg 3 times a day 5. Chronic back pain; continue with home dose of oxycodone and Zanaflex 4 mg daily at bedtime 6. Depression; DVT prophylaxis; SCDs CODE STATUS; full code
[2023-06-29 00:43] VITALS: RESP 16
[2023-06-29] MEDS: oxyCODONE-APAP 10-325MG 1 EACH TAB PO SCH ×2 (02:58→04:30)
[2023-06-29] MEDS: ASPIRIN 81 MG PO SCH (04:00)
[2023-06-29 04:24] LABS: Glucose,Whole Blood 91 mg/dL (70-110)
[2023-06-29] MEDS: EZETIMIBE 10 MG TAB PO SCH (04:25)
[2023-06-29] MEDS: GABAPENTIN 400 MG CAP PO SCH (04:25)
[2023-06-29] MEDS: carvediloL 12.5 MG TAB PO SCH (04:26)
[2023-06-29] MEDS: PANTOPRAZOLE 40 MG TABLET PO SCH (04:26)
[2023-06-29] MEDS: amLODIPine 10 MG TAB PO SCH (04:26)
[2023-06-29] MEDS: FOLIC ACID 1 MG TAB PO SCH (04:26)
[2023-06-29] MEDS: ESCITALOPRAM 10 MG TAB PO SCH (04:26)
[2023-06-29] MEDS: hydrALAZINE HCL 50 MG TAB PO SCH (04:26)
[2023-06-29] MEDS: HYDROmorphone 2 MG TAB PO PRN ×2 (04:27→09:19)
[2023-06-29] MEDS: DICYCLOMINE 20 MG TAB PO SCH (05:00)
[2023-06-29] MEDS ORDERED: ASPIRIN 325 MG TAB PO ONE (05:00)
[2023-06-29] MEDS ORDERED: ATORVASTATIN 80 MG TAB PO ONE (05:00)
[2023-06-29] MEDS ORDERED: HEPARIN SODIUM,PORCINE (1 ML) 2,500 UNIT in SODIUM CHLORIDE 0.9% 250 ML IRRIGATION PRN (07:00)
[2023-06-29] MEDS ORDERED: HEPARIN SODIUM,PORCINE 10,000 UNIT in SODIUM CHLORIDE 0.9% 1,000 ML IRRIGATION PRN (07:00)
[2023-06-29 07:42] VITALS: BP 145/101; PULSE 98; TEMP 98
[2023-06-29] MEDS ORDERED: methIMAzole 5 MG TAB PO SCH (09:00)
[2023-06-29] MEDS ORDERED: METOPROLOL TARTRATE 50 MG TAB PO SCH (09:00)
--- NOTE | 2023-06-29 10:34 | P.PN ---
Subjective Progress Note Date: 06/29/23 History of present illness: This is a 67-year-old male patient of Dr. Maksim Reddy with past medical his tory of coronary artery disease status post angioplasty of the LAD, hypertension, dyslipidemia, chronic pain, medical noncompliance. He is status post stent in the LAD in April 2019. Echocardiogram in April 2023 revealed normal LV function with mild aortic stenosis. His last stress test was in 2020 did not reveal any ischemia. Patient was arranged for cardiac catheterization scheduled for today, but he is noted to be hyperthyroid and did not start the Tapazole which was ordered for him from the cardiology office and thus the cardiac catheterization will be canceled for now. Blood pressure readings are elevated with 145/101. Heart rate in the 90s to 104. Physical examination: Gen: This is a 67-year-old male resting bed and appears to be comfortable VS: reviewed HEENT: Head is atraumatic, normocephalic. Pupils equal, round. Sclerae is anicteric. NECK: Supple. No JVD. . LUNGS: Clear to auscultation. No wheezes or rhonchi. No intercostal retractions. HEART: Regular rate and rhythm. No murmur. S4 is heard EXTREMITIES: No pedal edema. No calf tenderness. NEUROLOGICAL: Patient is awake, alert and oriented x3. Assessment: Precordial chest pain, acute coronary syndrome ruled out Uncontrolled hypertension Coronary artery disease status post prior angioplasty Plan: Continue current cardiac medications. Discontinue Coreg and start patient on metoprolol 50 mg twice daily Obtain repeat TSH and free T4 and start patient on Tapazole 5 mg 3 times daily Patient is cleared from cardiology for discharge home. Plan is for him to follow-up in the office in one week and cardiac catheterization will be discussed and planned at that appointment. Nurse practitioner note has been reviewed, I agree with documented findings and plan of care. Patient was seen and examined. Objective - Vital Signs Vital signs: Vital Signs Temp 98.0 F 06/29/23 07:00 Pulse 98 06/29/23 07:00 Resp 16 06/29/23 07:00 BP 145/101 06/29/23 07:00 Pulse Ox 98 06/29/23 07:00 FiO2 Intake & Output 06/28/23 06/29/23 06/29/23 18:59 06:59 18:59 Intake Total 900 Balance 900 Intake: Oral 900 Other: Voiding Method Toilet Toilet # Voids 1 - Labs CBC & Chem 7: 06/28/23 05:45 06/28/23 05:45 Labs: Abnormal Lab Results - Last 24 Hours (Table) 06/28/23 06/28/23 Range/Units 05:45 05:45 WBC 2.75 L (4.50-10.00) X 10*3/uL RBC 4.32 L (4.40-5.60) X 10*6/uL Hgb 12.4 L (13.0-17.0) d/dL Hct 37.8 L (39.6-50.0) % MPV 8.4 L (9.5-12.2) FL Neutrophils # 1.25 L (1.80-7.70) X 10*3/uL BUN 6.3 L (9.0-27.0) mg/dL BUN/Creatinine Ratio 10.50 L (12.00-20.00) Ratio
[2023-06-29 11:27] LABS: T4, Free (Free Thyroxine) 2.89 ng/dL (0.78-2.19)
--- NOTE | 2023-06-30 07:09 | P.DS ---
Providers Date of admission: 06/29/23 09:20 Expected date of discharge: 06/29/23 Attending physician: Soniya Rahman MD Consults: 06/27/23 18:27 Consult Physician Urgent Consulting Provider: Sanju Montano Consult Reason/Comments: chest pain Do you want consulting provider notified?: Yes Primary care physician: Stated None Hospital Course: Final diagnosis -Chest pain, ruled out acute coronary syndrome -history of coronary artery disease and reports history of stent placement -Hypertension -Hyperlipidemia -Neuropathy -Chronic back pain -history of Depression -GI prophylaxis -DVT prophylaxis -full code Discharge disposition Patient is being discharged in a stable condition with guarded prognosis to home. Patient will follow-up with Dr. Jsutin Montero in the outpatient setting upon discharge. Patient is to continue with current medications and outpatient follow-up with cardiology as scheduled. Total time taken is greater than 35 minutes. Hospital course This is a 67-year-old male who was recently admitted with chest pressure and high blood pressure being closely monitored. Patient was seen and evaluated by cardiology recommending outpatient follow-up and has been cleared. Stress the importance of medication compliance along with risk factor modifications. Patient also has outpatient testing and surgery intervention with orthopedics and will need to reschedule. Patient has been cleared by cardiology for discharge today. Please refer to cardiology note for further HPI. Currently no reports of chest pain, shortness of breath, or palpitations. Patient is afebrile. No reports of nausea or vomiting and patient is tolerating diet. Patient will be discharged home today. Guarded prognosis and high risk for readmissions given patient's continued noncompliance and multiple frequent visits to the ER for his chronic pain Physical exam: Gen: This is a 67 year old male who is awake, alert and oriented 3, thin build, well-developed HEENT: Head is atraumatic, normocephalic. Pupils equal, round. Sclerae is anicteric. NECK: Supple. No JVD. No lymphadenopathy. No thyromegaly. LUNGS: Clear to auscultation. No wheezes or rhonchi. No intercostal retractions. HEART: Regular rate and rhythm. No murmur. ABDOMEN: Soft. Bowel sounds are present. No masses. No tenderness. EXTREMITIES: No pedal edema. No calf tenderness. NEUROLOGICAL: Patient is awake, alert and oriented x3. Cranial nerves 2 through 12 are grossly intact. Please refer to medication reconciliation sheet for a list of medications. The impression and plan of care has been dictated by Blanca Aj, Nurse Practitioner as directed. Dr. Hernandez MD I have performed a history and examination and MDM of this patient, discussed the same with the dictator, and agree with the dictator's assessment and plan as written ,documented as a scribe. Based on total visit time, I have performed more than 50% of the visit. Patient Condition at Discharge: Stable Plan - Discharge Summary New Discharge Prescriptions: New methIMAzole [Tapazole] 5 mg PO TID #90 tablet Metoprolol Tartrate [Lopressor] 50 mg PO BID #60 tab hydrALAZINE HCL [Apresoline] 100 mg PO TID 30 Days #180 tab Continue tiZANidine [Zanaflex] 4 mg PO HS oxyCODONE-APAP 10-325MG [Percocet 10-325 mg] 1 tab PO Q6H Folic Acid 1 mg PO DAILY Pantoprazole Sodium [Protonix] 40 mg PO DAILY Diclofenac Sodium 3% Gel 1 applic TOPICAL QID PRN PRN Reason: Pain Gabapentin [Neurontin] 400 mg PO TID Ezetimibe [Zetia] 10 mg PO DAILY Atorvastatin [Lipitor] 80 mg PO HS Dicyclomine [Bentyl] 20 mg PO TID Escitalopram [Lexapro] 10 mg PO DAILY Aspirin EC [Ecotrin Low Dose] 81 mg PO DAILY amLODIPine [Norvasc] 10 mg PO DAILY #30 tab HYDROmorphone [Dilaudid] 4 mg PO QID PRN PRN Reason: Pain Amitriptyline HCl [Elavil] 10 mg PO HS PRN PRN Reason: SLEEP Benzonatate [Tessalon Perle] 200 mg PO TID PRN PRN Reason: Cough Discontinued methylPREDNISolone [Medrol Dose Pack] See Taper PO DIRECTED hydrALAZINE HCL [Apresoline] 50 mg PO BID carvediloL [Coreg] 12.5 mg PO BID Amoxic-Pot Clav 875-125Mg [Augmentin 875-125] 1 tab PO Q12HR Discharge Medication List tiZANidine [Zanaflex] 4 mg PO HS 02/26/18 [History] oxyCODONE-APAP 10-325MG [Percocet 10-325 mg] 1 tab PO Q6H 01/02/20 [History] Aspirin EC [Ecotrin Low Dose] 81 mg PO DAILY 04/23/23 [History] Escitalopram [Lexapro] 10 mg PO DAILY 04/23/23 [History] Folic Acid 1 mg PO DAILY 04/23/23 [History] Pantoprazole Sodium [Protonix] 40 mg PO DAILY 04/23/23 [History] amLODIPine [Norvasc] 10 mg PO DAILY #30 tab 04/26/23 [Rx] Diclofenac Sodium 3% Gel 1 applic TOPICAL QID PRN 05/28/23 [History] Amitriptyline HCl [Elavil] 10 mg PO HS PRN 06/27/23 [History] Atorvastatin [Lipitor] 80 mg PO HS 06/27/23 [History] Benzonatate [Tessalon Perle] 200 mg PO TID PRN 06/27/23 [History] Dicyclomine [Bentyl] 20 mg PO TID 06/27/23 [History] Ezetimibe [Zetia] 10 mg PO DAILY 06/27/23 [History] Gabapentin [Neurontin] 400 mg PO TID 06/27/23 [History] HYDROmorphone [Dilaudid] 4 mg PO QID PRN 06/27/23 [History] Metoprolol Tartrate [Lopressor] 50 mg PO BID #60 tab 06/29/23 [Rx] hydrALAZINE HCL [Apresoline] 100 mg PO TID 30 Days #180 tab 06/29/23 [Rx] methIMAzole [Tapazole] 5 mg PO TID #90 tablet 06/29/23 [Rx] Follow up Appointment(s)/Referral(s): Fannie Go MD [STAFF PHYSICIAN] - 07/08/23 2:00 pm None,Stated [Primary Care Provider] - 1-2 days Patient Instructions/Handouts: Angina (DC) Activity/Diet/Wound Care/Special Instructions: Activity Limited until follow-up Follow-up with primary care provider on discharge Follow-up with cardiology outpatient Discharge Disposition: HOME SELF-CARE
== END 2023-06-29 12:43 | disposition home or self-care (01) | DRG 313 ==
LOC: EC 14:40 → 6NMEDSUR 18:27 → OBSVTOIN 06-29 09:20
PROVIDERS: ADMIT Internal Medicine; ATTEND Internal Medicine
DX: R07.89 Other chest pain (principal); I47.20 Ventricular tachycardia, unspecified; R07.9 Chest pain, unspecified; E03.9 Hypothyroidism, unspecified; J44.9 Chronic obstructive pulmonary disease, unspecified; Z86.718 Personal history of other venous thrombosis and embolism; I25.10 Atherosclerotic heart disease of native coronary artery without angina pectoris; F32.A Depression, unspecified; G62.9 Polyneuropathy, unspecified; Z95.5 Presence of coronary angioplasty implant and graft; Z87.19 Personal history of other diseases of the digestive system; M54.50 Low back pain, unspecified; G43.909 Migraine, unspecified, not intractable, without status migrainosus; K29.70 Gastritis, unspecified, without bleeding; M19.90 Unspecified osteoarthritis, unspecified site; G89.4 Chronic pain syndrome; I10 Essential (primary) hypertension; K21.9 Gastro-esophageal reflux disease without esophagitis; Z20.822 Contact with and (suspected) exposure to COVID-19; Z79.82 Long term (current) use of aspirin; Z79.899 Other long term (current) drug therapy; Z87.11 Personal history of peptic ulcer disease; Z87.891 Personal history of nicotine dependence; Z91.199 Patient's noncompliance with other medical treatment and regimen due to unspecified reason; Z98.41 Cataract extraction status, right eye; Z98.1 Arthrodesis status; Z90.49 Acquired absence of other specified parts of digestive tract; Z88.6 Allergy status to analgesic agent; Z88.5 Allergy status to narcotic agent; Z88.1 Allergy status to other antibiotic agents; Z79.890 Hormone replacement therapy
CPT/HCPCS: 36415; 71046; 80053; 83735; 83880; 84439; 84443; 84484; 85025; 85610; 85730; 87636; 93005; 94760; 99285

== ENCOUNTER 2023-07-20 11:25 | Observation (INO) | payer MEDICARE, OTHER ==
[2023-07-20] MEDS ORDERED: MORPHINE SULFATE 4 MG/ML SYRINGE IV STA (11:41)
--- NOTE | 2023-07-20 11:59 | ED ---
General Adult HPI - General Chief complaint: Chest Pain Stated complaint: Chest Pain Time Seen by Provider: 07/20/23 11:41 Source: patient, RN notes reviewed, old records reviewed Mode of arrival: ambulatory Limitations: no limitations - History of Present Illness Initial comments: 67-year-old male presenting for evaluation of central chest pain. Symptoms have been present for the past 10 hours. He states it is a central pressure and states it is similar to previous cardiac issues that he's had in the past. He states that he is scheduled for cardiac catheterization in 2 days. Denies vomiting. Denies diaphoresis. - Related Data Home Medications Medication Instructions Recorded Confirmed tiZANidine [Zanaflex] 4 mg PO HS 02/26/18 07/16/23 oxyCODONE-APAP 10-325MG [Percocet 1 tab PO Q6H PRN 01/02/20 07/16/23 10-325 mg] Aspirin EC [Ecotrin Low Dose] 81 mg PO DAILY 04/23/23 07/16/23 Escitalopram [Lexapro] 10 mg PO DAILY 04/23/23 07/16/23 Folic Acid 1 mg PO DAILY 04/23/23 07/16/23 Pantoprazole Sodium [Protonix] 40 mg PO DAILY 04/23/23 07/16/23 Diclofenac Sodium 3% Gel 1 applic TOPICAL QID PRN 05/28/23 07/16/23 Amitriptyline HCl [Elavil] 10 mg PO HS PRN 06/27/23 07/16/23 Atorvastatin [Lipitor] 80 mg PO HS 06/27/23 07/16/23 Benzonatate [Tessalon Perle] 200 mg PO TID PRN 06/27/23 07/16/23 Dicyclomine [Bentyl] 20 mg PO TID 06/27/23 07/16/23 Ezetimibe [Zetia] 10 mg PO DAILY 06/27/23 07/16/23 Gabapentin [Neurontin] 400 mg PO TID 06/27/23 07/16/23 HYDROmorphone [Dilaudid] 4 mg PO QID PRN 06/27/23 07/16/23 Previous Rx's Medication Instructions Recorded amLODIPine [Norvasc] 10 mg PO DAILY #30 tab 04/26/23 Metoprolol Tartrate [Lopressor] 50 mg PO BID #60 tab 06/29/23 hydrALAZINE HCL [Apresoline] 100 mg PO TID 30 Days #180 tab 06/29/23 methIMAzole [Tapazole] 5 mg PO TID #90 tablet 06/29/23 Allergies Allergy/AdvReac Type Severity Reaction Status Date / Time codeine Allergy Itching Verified 07/20/23 11:30 ibuprofen [From Motrin] Allergy Rash/Hives Verified 07/20/23 11:30 ketorolac tromethamine Allergy Rash/Hives Verified 07/20/23 11:30 [From Toradol] Review of Systems ROS Statement: Those systems with pertinent positive or pertinent negative responses have been documented in the HPI. ROS Other: All systems not noted in ROS Statement are negative. Past Medical History Past Medical History: Coronary Artery Disease (CAD), Chest Pain / Angina, COPD, Deep Vein Thrombosis (DVT), GERD/Reflux, Hyperlipidemia, Hypertension, Osteoarthritis (OA), Thyroid Disorder Additional Past Medical History / Comment(s): Occasional palpitations, gastritis, small hiatal hernia, diverticular dx, pt states years ago he had PUD, chronic low back pain, chronic pain syndrome, migraines, DVT L arm, numbness/tingling bilateral lower legs, bilateral past R hand fracture, arthritis multiple joints, hyperthyroid, sinus problems. History of Any Multi-Drug Resistant Organisms: None Reported Past Surgical History: Back Surgery, Cholecystectomy, Heart Catheterization With Stent, Orthopedic Surgery Additional Past Surgical History / Comment(s): EGDs/colonoscopies, multiple low back surgeries, bilateral arm and bilateral thigh surgeries for brown recluse spider bites with infection, morphine pain pump insertion and removal due to infection, PCI with stents, L rotator cuff repair, L knee arthroscopy, cervical fusion/cage, R cataract removal. 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 states he was "down for 12 minutes" lower back surgery Date of Last Stent Placement:: 10/12/17 Past Psychological History: No Psychological Hx Reported Smoking Status: Former smoker Past Alcohol Use History: None Reported Past Drug Use History: None Reported - Past Family History Father Family Medical History: No Reported History Additional Family Medical History / Comment(s): Father had back problems. He lived to be 82 yrs old. Mother History Unknown: Yes Family Medical History: Hypertension, Myocardial Infarction (DC) Additional Family Medical History / Comment(s): Mother of a DC at the age of 55yrs. Brother(s) Family Medical History: Cancer, COPD Additional Family Medical History / Comment(s): Leukemia General Exam Limitations: no limitations General appearance: alert, in no apparent distress Head exam: Present: atraumatic, normocephalic Eye exam: Present: normal appearance, PERRL ENT exam: Present: normal exam Neck exam: Present: normal inspection. Absent: tenderness, meningismus Respiratory exam: Present: normal lung sounds bilaterally. Absent: respiratory distress, wheezes Cardiovascular Exam: Present: normal rhythm, tachycardia GI/Abdominal exam: Present: soft. Absent: distended, tenderness Extremities exam: Present: normal inspection, normal capillary refill Neurological exam: Present: alert, oriented X3, CN II-XII intact Psychiatric exam: Present: normal affect, normal mood Skin exam: Present: warm, dry, intact. Absent: cyanosis, diaphoretic Course Vital Signs 07/20/23 07/20/23 07/20/23 11:30 12:13 13:30 Temperature 97.8 F Pulse Rate 124 H 105 H 96 Respiratory 18 20 20 Rate Blood Pressure 191/110 177/120 214/136 O2 Sat by Pulse 98 98 98 Oximetry Medical Decision Making - Medical Decision Making Was pt. sent in by a medical professional or institution (, PA, INVENTORY CONTROL ANALYST, urgent care, hospital, or long-term...) When possible be specific @ -No Did you speak to anyone other than the patient for history (EMS, parent, family, police, friend...)? What history was obtained from this source @ -No Did you review nursing and triage notes (agree or disagree)? Why? @ -I reviewed and agree with nursing and triage notes Were old charts reviewed (outside hosp., previous admission, EMS record, old EKG, old radiological studies, urgent care reports/EKG's, long-term records)? Report findings @ -No old charts were reviewed Differential Diagnosis (chest pain, altered mental status, abdominal pain women, abdominal pain men, vaginal bleeding, weakness, fever, dyspnea, syncope, headache, dizziness, GI bleed, back pain, seizure, CVA, palpatations, mental health, musculoskeletal)? @ -[Differential Chest Pain: Stable Angina, Unstable Angina, STEMI, NSTEMI Aortic Dissection, Pneumothorax, Musculoskeletal, Esophageal Spasm GERD, Cholecystitis, Pancreatitis, Zoster, this is not meant to be an all-inclusive list. EKG interpreted by me (3pts min.). @ -Sinus tachycardia rate of 113, [place] interval 170, QRS duration 84, QTC [address] segment elevation, artifact limiting assessment. X-rays interpreted by me (1pt min.). @ -No pneumothorax, no focal pneumonia CT interpreted by me (1pt min.). @ -None done U/S interpreted by me (1pt. min.). @ -None done What testing was considered but not performed or refused? (CT, X-rays, U/S, labs)? Why? @ -None What meds were considered but not given or refused? Why? @ -None Did you discuss the management of the patient with other professionals (professionals i.e. , PA, INVENTORY CONTROL ANALYST, lab, RT, psych nurse, social work professor, director home health, teacher, personnel training officer, case filler)? Give summary @ -Dr. Chung Was smoking cessation discussed for >3mins.? @ -No Was critical care preformed (if so, how long)? @ -No Were there social determinants of health that impacted care today? How? (Homelessness, low income, unemployed, alcoholism, drug addiction, transportation, low edu. Level, literacy, decrease access to med. care, residential, rehab)? @ -No Was there de-escalation of care discussed even if they declined (Discuss DNR or withdrawal of care, Hospice)? DNR status @ -No What co-morbidities impacted this encounter? (DM, HTN, Smoking, COPD, CAD, Cancer, CVA, ARF, Chemo, Hep., AIDS, mental health diagnosis, sleep apnea, morbid obesity)? @ -[Hypertension, coronary artery disease. Was patient admitted / discharged? Hospital course, mention meds given and route, prescriptions, significant lab abnormalities, going to OR and other pertinent info. @ -[67 yo male presenting for evaluation chest pain. Stating that his been present for the past 10 hours. He is scheduled for heart catheterization in 2 days. He does have history of recurrent chest pain issues and his been seen in the emergency department any many times. His EKG is sinus tachycardia without ST segment elevation. His initial troponin is negative. He will be observed for serial cardiac enzymes, cardiology consultation. Undiagnosed new problem with uncertain prognosis? @ -No Drug Therapy requiring intensive monitoring for toxicity (Heparin, Nitro, Insulin, Cardizem)? @ -No Were any procedures done? @ -No Diagnosis/symptom? @ Chest pain rule out Acute, or Chronic, or Acute on Chronic? @ -Acute Uncomplicated (without systemic symptoms) or Complicated (systemic symptoms)? @ -default Side effects of treatment? @ -No Exacerbation, Progression, or Severe Exacerbation? @ -No Poses a threat to life or bodily function? How? (Chest pain, USA, DC, pneumonia, PE, COPD, DKA, ARF, appy, cholecystitis, CVA, Diverticulitis, Homicidal, Suicidal, threat to staff... and all critical care pts) @ -yes, chest pain - Lab Data Result diagrams: 07/20/23 12:09 07/20/23 12:09 Lab Results 07/20/23 07/20/23 07/20/23 Range/Units 12:09 12:09 12:09 WBC 2.6 L (3.8-10.6) k/uL RBC 4.42 (4.30-5.90) m/uL Hgb 12.9 L (13.0-17.5) gm/dL Hct 39.6 (39.0-53.0) % MCV 89.8 (80.0-100.0) fL MCH 29.2 (25.0-35.0) pg MCHC 32.5 (31.0-37.0) g/dL RDW 13.6 (11.5-15.5) % Plt Count 349 (150-450) k/uL MPV 6.8 Neutrophils % 54 % Lymphocytes % 34 % Monocytes % 7 % Eosinophils % 2 % Basophils % 0 % Neutrophils # 1.4 (1.3-7.7) k/uL Lymphocytes # 0.9 L (1.0-4.8) k/uL Monocytes # 0.2 (0-1.0) k/uL Eosinophils # 0.0 (0-0.7) k/uL Basophils # 0.0 (0-0.2) k/uL PT 10.1 (9.0-12.0) sec INR 0.9 (<1.2) APTT 24.3 (22.0-30.0) sec Sodium 140 (137-145) mmol/L Potassium 3.7 (3.5-5.1) mmol/L Chloride 109 H (98-107) mmol/L Carbon Dioxide 22 (22-30) mmol/L Anion Gap 9 mmol/L BUN 8 L (9-20) mg/dL Creatinine 0.60 L (0.66-1.25) mg/dL Est GFR (CKD-EPI)AfAm >90 (>60 ml/min/1.73 sqM) Est GFR (CKD-EPI)NonAf >90 (>60 ml/min/1.73 sqM) Glucose 114 H (74-99) mg/dL Calcium 9.6 (8.4-10.2) mg/dL Magnesium 1.7 (1.6-2.3) mg/dL Total Bilirubin 0.4 (0.2-1.3) mg/dL AST 17 (17-59) U/L ALT 12 (4-49) U/L Alkaline Phosphatase 66 (38-126) U/L Troponin I (0.000-0.034) ng/mL Total Protein 7.0 (6.3-8.2) g/dL Albumin 4.2 (3.5-5.0) g/dL 07/20/23 Range/Units 12:09 WBC (3.8-10.6) k/uL RBC (4.30-5.90) m/uL Hgb (13.0-17.5) gm/dL Hct (39.0-53.0) % MCV (80.0-100.0) fL MCH (25.0-35.0) pg MCHC (31.0-37.0) g/dL RDW (11.5-15.5) % Plt Count (150-450) k/uL MPV Neutrophils % % Lymphocytes % % Monocytes % % Eosinophils % % Basophils % % Neutrophils # (1.3-7.7) k/uL Lymphocytes # (1.0-4.8) k/uL Monocytes # (0-1.0) k/uL Eosinophils # (0-0.7) k/uL Basophils # (0-0.2) k/uL PT (9.0-12.0) sec INR (<1.2) APTT (22.0-30.0) sec Sodium (137-145) mmol/L Potassium (3.5-5.1) mmol/L Chloride (98-107) mmol/L Carbon Dioxide (22-30) mmol/L Anion Gap mmol/L BUN (9-20) mg/dL Creatinine (0.66-1.25) mg/dL Est GFR (CKD-EPI)AfAm (>60 ml/min/1.73 sqM) Est GFR (CKD-EPI)NonAf (>60 ml/min/1.73 sqM) Glucose (74-99) mg/dL Calcium (8.4-10.2) mg/dL Magnesium (1.6-2.3) mg/dL Total Bilirubin (0.2-1.3) mg/dL AST (17-59) U/L ALT (4-49) U/L Alkaline Phosphatase (38-126) U/L Troponin I <0.012 (0.000-0.034) ng/mL Total Protein (6.3-8.2) g/dL Albumin (3.5-5.0) g/dL Disposition Clinical Impression: Chest pain Disposition: ADMITTED IP TO THIS HOSP Condition: Stable Is patient prescribed a controlled substance at d/c from ED?: No Referrals: None,Stated [Primary Care Provider] - 1-2 days Time of Disposition: 14:34
[2023-07-20 12:29] LABS: Basophils % (A) 0 %; Eosinophils % (A) 2 %; HCT 39.6 % (39.0-53.0); HGB 12.9 gm/dL (13.0-17.5); Lymphocytes # (A) 0.9 k/uL (1.0-4.8); Lymphocytes % (A) 34 %; MCH 29.2 pg (25.0-35.0); MCHC 32.5 g/dL (31.0-37.0); MCV 89.8 fL (80.0-100.0); Mean Platelet Volume 6.8; Monocytes # (A) 0.2 k/uL (0-1.0); Monocytes % (A) 7 %; Neutrophils # (A) 1.4 k/uL (1.3-7.7); Neutrophils % (A) 54 %; Platelet Count 349 k/uL (150-450); RBC 4.42 m/uL (4.30-5.90); RDW 13.6 % (11.5-15.5); WBC 2.6 k/uL (3.8-10.6)
--- NOTE | 2023-07-20 12:43 | XR ---
EXAMINATION TYPE: XR chest 2V DATE OF EXAM: 07/20/2023 COMPARISON: 06/27/2023 TECHNIQUE: PA and lateral views submitted. HISTORY: Dizziness and chest pain FINDINGS: The lungs are clear and there is no pneumothorax, pleural effusion, or focal pneumonia. Heart size normal and no overt failure. Osseous structures demonstrate hypertrophic and degenerative changes of the spine. Mild prominence of the region of the ascending aorta is stable. Postsurgical changes relat ed to cervical spine. Mild hyperinflation. IMPRESSION: 1. No acute process. Prominence of the right hilum could be related to a thoracic aortic aneurysm sta ble from prior exam.
[2023-07-20 12:46] LABS: INR 0.9 (<1.2); Partial Thromboplastin Time 24.3 sec (22.0-30.0); Prothrombin Time 10.1 sec (9.0-12.0)
[2023-07-20 13:06] LABS: ALT 12 U/L (4-49); AST 17 U/L (17-59); African American GFR (CKD) >90 (>60 ml/min/1.73 sqM); Albumin 4.2 g/dL (3.5-5.0); Alkaline Phosphatase 66 U/L (38-126); Anion Gap 9 mmol/L; Blood Urea Nitrogen 8 mg/dL (9-20); Calcium 9.6 mg/dL (8.4-10.2); Carbon Dioxide 22 mmol/L (22-30); Chloride 109 mmol/L (98-107); Glucose 114 mg/dL (74-99); Magnesium 1.7 mg/dL (1.6-2.3); Non-African American GFR(CKD) >90 (>60 ml/min/1.73 sqM); Potassium 3.7 mmol/L (3.5-5.1); Sodium 140 mmol/L (137-145); Total Bilirubin 0.4 mg/dL (0.2-1.3)
[2023-07-20] MEDS ORDERED: NITROGLYCERIN SL TABS 0.4 MG TAB SUBLINGUAL PRN (13:19)
[2023-07-20] MEDS ORDERED: ASPIRIN 325 MG TAB PO STA (13:19)
[2023-07-20] MEDS ORDERED: MORPHINE SULFATE 4 MG/ML SYRINGE IVP STA (13:19)
[2023-07-20] MEDS ORDERED: HYDROmorphone 1 MG/ML 1 ML SYRINGE IVP STA (14:27)
[2023-07-20] MEDS ORDERED: NITROGLYCERIN OINT 1 INCH/GM PACKET TOPICAL STA (14:28)
[2023-07-20] MEDS ORDERED: ACETAMINOPHEN TAB 325 MG TAB PO PRN (14:28)
[2023-07-20] MEDS ORDERED: NALOXONE 0.4 MG/ML 1 ML VIAL IV PRN (14:28)
--- NOTE | 2023-07-20 15:23 | P.HPIM ---
History of Present Illness H&P Date: 07/20/23 History of present illness; patient is 67-year-old Patient with past medical history of coronary artery disease, hypertension, hyperlipidemia, hypothyroidism, COPD, DVT, presented to the ER because of chest pain. Patient stated that he was awakened him from sleep this morning with chest pain that was central in location, intermittent, sharp in intensity, radiating to his left shoulder and jaw. Patient chest pain was associated with shortness of breath he denies any aggravating or relieving factors associated with this chest pain. Denied nausea or vomiting. Patient has history of prior coronary disease. 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 HEENT: No recent visual problems or hearing problems. Denied any sore throat. CARDIOVASCULAR: As mentioned in HPI PULMONARY: As mentioned in HPI GASTROINTESTINAL: No diarrhea, no nausea, no vomiting, no abdominal pain. NEUROLOGICAL: No headaches, no weakness, no numbness. HEMATOLOGICAL: Denies any bleeding or petechiae. GENITOURINARY: Denies any burning micturition, frequency, or urgency. MUSCULOSKELETAL/RHEUMATOLOGICAL: Denies any joint pain, swelling, or any muscle pain. ENDOCRINE: Denies any polyuria or polydipsia. The rest of the 14-point review of systems is negative. PHYSICAL EXAMINATION: GENERAL: The patient is alert and oriented x3, not in any acute distress. Well developed, well nourished. HEENT: Pupils are round and equally reacting to light. EOMI. No scleral icterus. No conjunctival pallor. Normocephalic, atraumatic. No pharyngeal erythema. No thyromegaly. CARDIOVASCULAR: S1 and S2 present. No murmurs, rubs, or gallops. PULMONARY: Chest is clear to auscultation, no wheezing or crackles. ABDOMEN: Soft, nontender, nondistended, normoactive bowel sounds. No palpable organomegaly. MUSCULOSKELETAL: No joint swelling or deformity. EXTREMITIES: No cyanosis, clubbing, or pedal edema. NEUROLOGICAL: Gross neurological examination did not reveal any focal deficits. SKIN: No rashes. Assessment and plan Chest pain Hypertension Hyperlipidemia Neuropathy Chronic back pain Monitor vital signs Monitor CBC Monitor CMP Continue telemetry monitoring Trend troponin Ordered d-dimer Serial EKGs Consult cardiology Resume home meds Labs and medication were reviewed.. Continue same treatment. Continue with symptomatic treatment. Resume home medication. Monitor labs and vitals. DVT and GI prophylaxis. Further recommendations as per clinical course of the patient Dictation was produced using [employer] dictation software. please excuse any grammatical, word or spelling errors. Past Medical History Past Medical History: Coronary Artery Disease (CAD), Chest Pain / Angina, COPD, Deep Vein Thrombosis (DVT), GERD/Reflux, Hyperlipidemia, Hypertension, Osteoarthritis (OA), Thyroid Disorder Additional Past Medical History / Comment(s): Occasional palpitations, gastritis, small hiatal hernia, diverticular dx, pt states years ago he had PUD, chronic low back pain, chronic pain syndrome, migraines, DVT L arm, numb ness/tingling bilateral lower legs, bilateral past R hand fracture, arthritis multiple joints, hyperthyroid, sinus problems. History of Any Multi-Drug Resistant Organisms: None Reported Past Surgical History: Back Surgery, Cholecystectomy, Heart Catheterization With Stent, Orthopedic Surgery Additional Past Surgical History / Comment(s): EGDs/colonoscopies, multiple low back surgeries, bilateral arm and bilateral thigh surgeries for brown recluse spider bites with infection, morphine pain pump insertion and removal due to infection, PCI with stents, L rotator cuff repair, L knee arthroscopy, cervical fusion/cage, R cataract removal. 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 states he was "down for 12 minutes" lower back surgery Date of Last Stent Placement:: 10/12/17 Past Psychological History: No Psychological Hx Reported Smoking Status: Former smoker Past Alcohol Use History: None Reported Past Drug Use History: None Reported - Past Family History Father Family Medical History: No Reported History Additional Family Medical History / Comment(s): Father had back problems. He lived to be 82 yrs old. Mother History Unknown: Yes Family Medical History: Hypertension, Myocardial Infarction (PA) Additional Family Medical History / Comment(s): Mother of a PA at the age of 55yrs. Brother(s) Family Medical History: Cancer, COPD Additional Family Medical History / Comment(s): Leukemia Medications and Allergies Home Medications Medication Instructions Recorded Confirmed Type tiZANidine [Zanaflex] 4 mg PO HS 02/26/18 07/16/23 History oxyCODONE-APAP 10-325MG [Percocet 1 tab PO Q6H PRN 01/02/20 07/16/23 History 10-325 mg] Aspirin EC [Ecotrin Low Dose] 81 mg PO DAILY 04/23/23 07/16/23 History Escitalopram [Lexapro] 10 mg PO DAILY 04/23/23 07/16/23 History Folic Acid 1 mg PO DAILY 04/23/23 07/16/23 History Pantoprazole Sodium [Protonix] 40 mg PO DAILY 04/23/23 07/16/23 History amLODIPine [Norvasc] 10 mg PO DAILY #30 tab 04/26/23 07/16/23 Rx Diclofenac Sodium 3% Gel 1 applic TOPICAL QID PRN 05/28/23 07/16/23 History Amitriptyline HCl [Elavil] 10 mg PO HS PRN 06/27/23 07/16/23 History Atorvastatin [Lipitor] 80 mg PO HS 06/27/23 07/16/23 History Benzonatate [Tessalon Perle] 200 mg PO TID PRN 06/27/23 07/16/23 History Dicyclomine [Bentyl] 20 mg PO TID 06/27/23 07/16/23 History Ezetimibe [Zetia] 10 mg PO DAILY 06/27/23 07/16/23 History Gabapentin [Neurontin] 400 mg PO TID 06/27/23 07/16/23 History HYDROmorphone [Dilaudid] 4 mg PO QID PRN 06/27/23 07/16/23 History Metoprolol Tartrate [Lopressor] 50 mg PO BID #60 tab 06/29/23 07/16/23 Rx hydrALAZINE HCL [Apresoline] 100 mg PO TID 30 Days #180 tab 06/29/23 07/16/23 Rx methIMAzole [Tapazole] 5 mg PO TID #90 tablet 06/29/23 07/16/23 Rx Allergies Allergy/AdvReac Type Severity Reaction Status Date / Time codeine Allergy Itching Verified 07/20/23 11:30 ibuprofen [From Motrin] Allergy Rash/Hives Verified 07/20/23 11:30 ketorolac tromethamine Allergy Rash/Hives Verified 07/20/23 11:30 [From Toradol] Physical Exam Vitals: Vital Signs Temp Pulse Resp BP Pulse Ox 07/20/23 14:42 98.0 F 107 H 17 195/122 97 07/20/23 13:30 96 20 214/136 98 07/20/23 12:13 105 H 20 177/120 98 07/20/23 11:30 97.8 F 124 H 18 191/110 98 Intake and Output 07/20/23 07/20/23 07/20/23 06:59 14:59 22:59 Other: Weight 87 kg Results CBC & Chem 7: 07/20/23 12:09 07/20/23 12:09 Labs: Abnormal Lab Results - Last 24 Hours (Table) 07/20/23 07/20/23 Range/Units 12:09 12:09 WBC 2.6 L (3.8-10.6) k/uL Hgb 12.9 L (13.0-17.5) gm/dL Lymphocytes # 0.9 L (1.0-4.8) k/uL Chloride 109 H (98-107) mmol/L BUN 8 L (9-20) mg/dL Creatinine 0.60 L (0.66-1.25) mg/dL Glucose 114 H (74-99) mg/dL
[2023-07-20] MEDS: HYDROmorphone 0.5 MG/0.5 ML SYRINGE IVP PRN ×2 (18:28→21:48)
[2023-07-20] MEDS ORDERED: AMITRIPTYLINE HCL 10 MG TAB PO PRN (22:43)
[2023-07-20] MEDS ORDERED: METOPROLOL TARTRATE 50 MG TAB PO STA (22:53)
[2023-07-20] MEDS ORDERED: hydrALAZINE HCL 50 MG TAB PO STA (22:54)
[2023-07-21] MEDS: HYDROmorphone 0.5 MG/0.5 ML SYRINGE IVP PRN ×6 (01:18→21:07)
[2023-07-21] MEDS: amLODIPine 10 MG TAB PO SCH (08:23)
[2023-07-21] MEDS: hydrALAZINE HCL 50 MG TAB PO SCH ×3 (08:23→21:07)
[2023-07-21] MEDS: GABAPENTIN 400 MG CAP PO SCH ×3 (08:23→21:07)
[2023-07-21] MEDS: PANTOPRAZOLE 40 MG TABLET PO SCH (08:23)
[2023-07-21] MEDS: methIMAzole 5 MG TAB PO SCH ×3 (08:23→21:06)
[2023-07-21] MEDS ORDERED: METOPROLOL TARTRATE 50 MG TAB PO SCH (09:00)
[2023-07-21] MEDS ORDERED: ALPRAZolam 0.25 MG TAB PO PRN (09:06)
[2023-07-21] MEDS ORDERED: NITROGLYCERIN SL TABS 0.4 MG TAB SUBLINGUAL PRN (09:06)
[2023-07-21] MEDS ORDERED: ALPRAZolam 0.5 MG TAB PO PRN (09:06)
--- NOTE | 2023-07-21 10:07 | P.CRDCN ---
History of Present Illness History of present illness: HISTORY OF PRESENT ILLNESS: This is a 67-year-old male with a past medical history significant for hyperthyroidism, coronary artery disease with previous stenting, hypertension, hyperlipidemia, chronic pain, former nicotine dependence, and previous medication noncompliance. Patient follows in the office with Dr. Go. We have been asked to see the patient in consultation for chest pain. Patient examined at the bedside. Patient presented to the emergency room with a chief complaint of chest pain. He reports pressure in the middle of his chest and pain into his left arm, back, and jaw. He also reports having shortness of breath when walking. The patient was found to have extremely elevated blood pressures upon admission with a systolic around 240. Patient's blood pressure remains elevated this morning with a reading of 186/105. He continues to report mild chest pressure this morning. The patient was scheduled for cardiac catheterization tomorrow at Dr. Go on an outpatient basis. * EKG reveals sinus tachycardia with no signs of acute ischemia * Chest xray negative for acute process * Laboratory data: WBC 2.6. Hemoglobin 12.9. Platelet count 349. Sodium 140. Potassium 3.7. BUN 8. Creatinine 0.60. Magnesium 1.7. Troponin negative 3. * Current home cardiac medications include aspirin 81 mg daily, Lipitor 80 mg at night, Zetia 10 mg daily, metoprolol tartrate 50 mg twice a day, amlodipine 10 mg daily, hydralazine 100 mg 3 times a day * Most recent echocardiogram obtained in April 2023 revealing ejection fraction 60-65% with trace TR * Cardiac catheterization history: April 2019 revealing widely patent LAD at the site of stenting and no more than 30-40% narrowing within the diagonal which was a bifurcation lesion. Left dominant system. No significant disease in RCA or circumflex both of which have minor irregularities. REVIEW OF SYSTEMS: At the time of my exam: CONSTITUTIONAL: Denies fever or chills. HEENT: Denies blurred vision, vision changes, or eye pain. Denies hemoptysis CARDIOVASCULAR: Denies chest pain. Denies orthopnea. Denies PND. Denies palpitations RESPIRATORY: Denies shortness of breath. GASTROINTESTINAL: Denies abdominal pain. Denies nausea or vomiting. HEMATOLOGIC: Denies bleeding disorders. GENITOURINARY: Denies any blood in urine. SKIN: Denies pruitis. Denies rash. PHYSICAL EXAM: VITAL SIGNS: Reviewed. GENERAL: Well-developed in no acute distress. HEENT: Head is normocephalic. Pupils are equal, round. Sclerae anicteric. Mucous membranes of the mouth are moist. Neck supple. No JVD or thyromegaly LUNGS: Respirations even and unlabored. Lungs essentially clear to auscultation bilaterally. HEART: Regular rate and rhythm. S1 and S2 heard. ABDOMEN: Soft. Nondistended. Nontender. EXTREMITIES: Normal range of motion. No clubbing or cyanosis. Peripheral pulses intact. No lower extremity edema NEUROLOGIC: Awake and alert. Oriented x 3. ASSESSMENT: Hypertensive emergency Chest pain, troponins negative 3 Coronary artery disease with previous stenting Hyperthyroidism History of hypertension History of hyperlipidemia Former nicotine dependence Chronic pain History of medication noncompliance PLAN: Resume home cardiac medications Add losartan-hydrochlorothiazide 50-12.5mg daily Increase metoprolol to 100 mg twice a day Add Imdur 30mg daily Continue to monitor blood pressure Patient to undergo cardiac catheterization tomorrow with Dr. Go NPO at midnight Further recommendations pending patient's course Nurse practitioner note has been reviewed by physician. Signing provider agrees with the documented findings, assessment, and plan of care. Past Medical History Past Medical History: Coronary Artery Disease (CAD), Chest Pain / Angina, COPD, Deep Vein Thrombosis (DVT), GERD/Reflux, Hyperlipidemia, Hypertension, Osteoarthritis (OA), Thyroid Disorder Additional Past Medical History / Comment(s): Occasional palpitations, gastritis, small hiatal hernia, diverticular dx, pt states years ago he had PUD, chronic low back pain, chronic pain syndrome, migraines, DVT L arm, numbness/tingling bilateral lower legs, bilateral past R hand fracture, arthritis multiple joints, hyperthyroid, sinus problems. History of Any Multi-Drug Resistant Organisms: None Reported Past Surgical History: Back Surgery, Cholecystectomy, Heart Catheterization With Stent, Orthopedic Surgery Additional Past Surgical History / Comment(s): EGDs/colonoscopies, multiple low back surgeries, bilateral arm and bilateral thigh surgeries for brown recluse spider bites with infection, morphine pain pump insertion and removal due to infection, PCI with stents, L rotator cuff repair, L knee arthroscopy, cervical fusion/cage, R cataract removal. 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 states he was "down for 12 minutes" lower back surgery Date of Last Stent Placement:: 10/12/17 Past Psychological History: No Psychological Hx Reported Smoking Status: Former smoker Past Alcohol Use History: None Reported Past Drug Use History: None Reported - Past Family History Father Family Medical History: No Reported History Additional Family Medical History / Comment(s): Father had back problems. He lived to be 82 yrs old. Mother History Unknown: Yes Family Medical History: Hypertension, Myocardial Infarction ([place]) Additional Family Medical History / Comment(s): Mother of a [place] at the age of 55yrs. Brother(s) Family Medical History: Cancer, COPD Additional Family Medical History / Comment(s): Leukemia Medications and Allergies Home Medications Medication Instructions Recorded Confirmed Type tiZANidine [Zanaflex] 4 mg PO HS 02/26/18 07/20/23 History oxyCODONE-APAP 10-325MG [Percocet 1 tab PO Q6H PRN 01/02/20 07/20/23 History 10-325 mg] Aspirin EC [Ecotrin Low Dose] 81 mg PO DAILY 04/23/23 07/20/23 History Escitalopram [Lexapro] 10 mg PO DAILY 04/23/23 07/20/23 History Folic Acid 1 mg PO DAILY 04/23/23 07/20/23 History Pantoprazole Sodium [Protonix] 40 mg PO DAILY 04/23/23 07/20/23 History amLODIPine [Norvasc] 10 mg PO DAILY #30 tab 04/26/23 07/20/23 Rx Diclofenac Sodium 3% Gel 1 applic TOPICAL QID PRN 05/28/23 07/20/23 History Amitriptyline HCl [Elavil] 10 mg PO HS PRN 06/27/23 07/20/23 History Atorvastatin [Lipitor] 80 mg PO HS 06/27/23 07/20/23 History Benzonatate [Tessalon Perle] 200 mg PO TID PRN 06/27/23 07/20/23 History Dicyclomine [Bentyl] 20 mg PO TID 06/27/23 07/20/23 History Ezetimibe [Zetia] 10 mg PO DAILY 06/27/23 07/20/23 History Gabapentin [Neurontin] 400 mg PO TID 06/27/23 07/20/23 History Metoprolol Tartrate [Lopressor] 50 mg PO BID #60 tab 06/29/23 07/20/23 Rx hydrALAZINE HCL [Apresoline] 100 mg PO TID 30 Days #180 tab 06/29/23 07/20/23 Rx methIMAzole [Tapazole] 5 mg PO TID #90 tablet 06/29/23 07/20/23 Rx Allergies Allergy/AdvReac Type Severity Reaction Status Date / Time codeine Allergy Itching Verified 07/20/23 16:41 ibuprofen [From Motrin] Allergy Rash/Hives Verified 07/20/23 16:41 ketorolac tromethamine Allergy Rash/Hives Verified 07/20/23 16:41 [From Toradol] Physical Exam Vitals: Vital Signs Temp Pulse Resp BP Pulse Ox 07/21/23 08:25 98 18 186/105 99 07/21/23 06:00 93 16 192/115 98 07/21/23 05:00 100 16 169/141 97 07/21/23 04:00 86 139/49 96 07/21/23 03:00 90 168/142 98 07/21/23 02:00 89 193/116 96 07/21/23 01:00 101 H 189/120 96 07/21/23 00:14 99 189/120 07/21/23 00:00 101 H 176/113 98 07/20/23 23:07 113 H 16 191/120 99 07/20/23 23:00 94 203/133 98 07/20/23 22:00 249/169 98 07/20/23 21:00 103 H 16 212/120 98 07/20/23 20:00 102 H 16 197/129 99 07/20/23 19:58 105 H 18 197/129 99 07/20/23 18:20 98.0 F 92 17 167/117 99 07/20/23 16:01 105 H 17 191/121 97 07/20/23 14:42 98.0 F 107 H 17 195/122 97 07/20/23 13:30 96 20 214/136 98 07/20/23 12:13 105 H 20 177/120 98 07/20/23 11:30 97.8 F 124 H 18 191/110 98 Results 07/20/23 12:09 07/20/23 12:09 Cardiac Enzymes 07/20/23 07/20/23 07/20/23 Range/Units 12:09 12:09 14:45 AST 17 (17-59) U/L Troponin I <0.012 <0.012 (0.000-0.034) ng/mL 07/20/23 Range/Units 17:44 AST (17-59) U/L Troponin I <0.012 (0.000-0.034) ng/mL Coagulation 07/20/23 Range/Units 12:09 PT 10.1 (9.0-12.0) sec APTT 24.3 (22.0-30.0) sec CBC 07/20/23 Range/Units 12:09 WBC 2.6 L (3.8-10.6) k/uL RBC 4.42 (4.30-5.90) m/uL Hgb 12.9 L (13.0-17.5) gm/dL Hct 39.6 (39.0-53.0) % Plt Count 349 (150-450) k/uL Comprehensive Metabolic Panel 07/20/23 Range/Units 12:09 Sodium 140 (137-145) mmol/L Potassium 3.7 (3.5-5.1) mmol/L Chloride 109 H (98-107) mmol/L Carbon Dioxide 22 (22-30) mmol/L BUN 8 L (9-20) mg/dL Creatinine 0.60 L (0.66-1.25) mg/dL Glucose 114 H (74-99) mg/dL Calcium 9.6 (8.4-10.2) mg/dL AST 17 (17-59) U/L ALT 12 (4-49) U/L Alkaline Phosphatase 66 (38-126) U/L Total Protein 7.0 (6.3-8.2) g/dL Albumin 4.2 (3.5-5.0) g/dL Current Medications Generic Name Dose Route Start Last Admin Trade Name Freq PRN Reason Stop Dose Admin Acetaminophen 650 mg 07/20/23 14:28 Acetaminophen Tab 325 Mg Tab PO Q6HR PRN Mild Pain or Fever > 100.5 Alprazolam 0.25 mg 07/21/23 09:06 Alprazolam 0.25 Mg Tab PO Q6HR PRN Mild Anxiety Alprazolam 0.5 mg 07/21/23 09:06 Alprazolam 0.5 Mg Tab PO Q6HR PRN Moderate Anxiety Amitriptyline HCl 10 mg 07/20/23 22:43 Amitriptyline Hcl 10 Mg Tab PO HS PRN SLEEP Amlodipine Besylate 10 mg 07/21/23 09:00 07/21/23 08:23 Amlodipine 10 Mg Tab PO 10 mg DAILY YESICA Administration Aspirin 81 mg 07/21/23 09:00 Aspirin 81 Mg PO DAILY [facility] Aspirin 325 mg 07/22/23 05:00 Aspirin 325 Mg Tab PO 07/22/23 05:01 ONCE ONE Atorvastatin Calcium 80 mg 07/21/23 21:00 Atorvastatin 80 Mg Tab PO HS YESICA Gabapentin 400 mg 07/21/23 09:00 07/21/23 08:23 Gabapentin 400 Mg Cap PO 400 mg TID YESICA Administration HCTZ/Losartan Potassium 1 each 07/21/23 09:00 Losartan-Hctz 50-12.5 Mg 1 Each Tab PO DAILY [facility] Hydralazine HCl 100 mg 07/21/23 09:00 07/21/23 08:23 Hydralazine Hcl 50 Mg Tab PO 100 mg TID YESICA Administration Hydromorphone HCl 0.5 mg 07/20/23 14:28 07/21/23 08:51 Hydromorphone 0.5 Mg/0.5 Ml Syringe IVP 0.5 mg Q3HR PRN Administration Moderate Pain (Scale 4 to 6) Heparin Sodium (Porcine) 10, 1,001 mls @ 999 mls/hr 07/22/23 07:00 000 unit/ Sodium Chloride IRRIGATION 07/22/23 23:00 ONCE PRN INTRA-OP Heparin Sodium (Porcine) 2,500 250.5 mls @ 250 mls/hr 07/22/23 07:00 unit/ Sodium Chloride IRRIGATION 07/22/23 23:00 ONCE PRN INTRA-OP Sodium Chloride 1,000 ml/ IV 1,000 mls @ 87 mls/hr 07/21/23 23:00 Solution IV .[id number] YESICA 1 ML/KG/HR Isosorbide Mononitrate 30 mg 07/21/23 09:00 Isosorbide Mononitrate Er 30 Mg Tab.Er.24h PO DAILY [facility] Methimazole 5 mg 07/21/23 09:00 07/21/23 08:23 Methimazole 5 Mg Tab PO 5 mg TID YESICA Administration Metoprolol Tartrate 100 mg 07/21/23 09:00 Metoprolol Tartrate 50 Mg Tab PO BID YESICA Naloxone HCl 0.2 mg 07/20/23 14:28 Naloxone 0.4 Mg/Ml 1 Ml Vial IV Q2M PRN Opioid Reversal Nitroglycerin 0.4 mg 07/21/23 09:06 Nitroglycerin Sl Tabs 0.4 Mg Tab SUBLINGUAL Q5M PRN Chest Pain Oxycodone/Acetaminophen 1 each 07/20/23 22:43 Oxycodone-Apap 10-325mg 1 Each Tab PO Q6H PRN Pain Pantoprazole Sodium 40 mg 07/21/23 09:00 07/21/23 08:23 Pantoprazole 40 Mg Tablet PO 40 mg DAILY YESICA Administration 07/20/23 12:09 07/20/23 12:09
[2023-07-21] MEDS: ASPIRIN 81 MG PO SCH (10:25)
[2023-07-21] MEDS: METOPROLOL TARTRATE 50 MG TAB PO SCH ×2 (10:25→21:06)
[2023-07-21] MEDS: LOSARTAN-HCTZ 50-12.5 MG 1 EACH TAB PO SCH (10:26)
[2023-07-21] MEDS: ISOSORBIDE MONONITRATE ER 30 MG TAB.ER.24H PO SCH (10:26)
--- NOTE | 2023-07-21 14:44 | US ---
EXAMINATION TYPE: US venous doppler duplex LE BI DATE OF EXAM: 07/21/2023 2:35 PM COMPARISON: 05/21/2023 CLINICAL INDICATION: Male, 67 years old with history of ro dvt elevated ddimer; elevated d dimer SIDE PERFORMED: Bilateral TECHNIQUE: The lower extremity deep venous system is examined utilizing real time linear array sonog soren with graded compression, doppler sonography and color-flow sonography. VESSELS IMAGED: Common Femoral Vein Deep Femoral Vein Greater Saphenous Vein * Femoral Vein Popliteal Vein Small Saphenous Vein * Proximal Calf Veins (* superficial vessels) Right Leg: Negative for DVT Left Leg: Negative for DVT IMPRESSION: Grayscale, color doppler, spectral doppler imaging performed of the deep veins of the lo wer extremities. There is normal flow, compressibility, vascular waveforms.
--- NOTE | 2023-07-21 14:44 | CT ---
EXAMINATION TYPE: CT chest angio for PE CT DLP: 304.2 mGycm, Automated exposure control for dose reduction was used. DATE OF EXAM: 07/21/2023 2:20 PM COMPARISON: 04/23/2023 CLINICAL INDICATION:Male, 67 years old with history of elevated ddimer cp; Elevated d-dimer, chest pa in, cardiac hx TECHNIQUE/CONTRAST: CTA scan of the thorax is performed with IV Contrast, patient injected with 100 mL of Isovue 370, MIP images are created and reviewed these are created on a separate workstation.. FINDINGS: Pulmonary Artery: There is no evidence for a filling defect within the pulmonary vasculature to sugge st acute pulmonary embolism. The pulmonary artery is of normal size. Lungs/Pleura: No evidence of focal consolidation, pleural effusion or pneumothorax. Linear scarring a telectasis within the superior segments of both lower lobes and inferior aspect of the right lower lo be. No suspicious pulmonary nodule or mass. Airway: Large airways are patent. Heart: Heart is within normal limits for size.. No pericardial effusion. Coronary calcifications are present. Vasculature: No evidence of aortic aneurysm. Mediastinum: No gross evidence of adenopathy. Musculoskeletal: No acute osseous abnormalities. 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 Soft Tissues: Unremarkable. Lower neck: No significant findings. Upper Abdomen: Stable cyst within the left hepatic lobe. Postcholecystectomy changes. IMPRESSION: No evidence of pulmonary embolism or acute thoracic process.
--- NOTE | 2023-07-21 15:07 | P.PN ---
Subjective Progress Note Date: 07/21/23 patient is 67-year-old Patient with past medical history of coronary artery disease, hypertension, hyperlipidemia, hypothyroidism, COPD, DVT, presented to the ER because of chest pain. Patient stated that he was awakened him from sleep this morning with chest pain that was central in location, intermittent, sharp in intensity, radiating to his left shoulder and jaw. Patient chest pain was associated with shortness of breath he denies any aggravating or relieving factors associated with this chest pain. Denied nausea or vomiting. Patient has history of prior coronary disease. 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 Patient seen and examined. Still having chest pain. Denies any shortness of breath at rest but gets short of breath on exertion REVIEW OF SYSTEMS: CONSTITUTIONAL: No fever, no malaise,. CARDIOVASCULAR: As mentioned in HPI PULMONARY: As in HPI GASTROINTESTINAL: No diarrhea, no nausea, no vomiting, no abdominal pain. NEUROLOGICAL: No headaches, no weakness, PHYSICAL EXAMINATION: GENERAL: The patient is alert and oriented x3, not in any acute distress. Well developed, well nourished. HEENT: Pupils are round and equally reacting to light. EOMI. No scleral icterus. No conjunctival pallor. Normocephalic, atraumatic. No pharyngeal erythema. No thyromegaly. CARDIOVASCULAR: S1 and S2 present. No murmurs, rubs, or gallops. PULMONARY: Chest is clear to auscultation, no wheezing or crackles. ABDOMEN: Soft, nontender, nondistended, normoactive bowel sounds. No palpable organomegaly. MUSCULOSKELETAL: No joint swelling or deformity. EXTREMITIES: No cyanosis, clubbing, or pedal edema. NEUROLOGICAL: Gross neurological examination did not reveal any focal deficits. SKIN: No rashes. Assessment and plan Chest pain Hyperlipidemia Neuropathy Chronic back pain Hypertensive emergency Coronary artery disease with previous stenting Hyperthyroidism History of hypertension Former nicotine dependence Chronic pain History of medication noncompliance Monitor vital signs Monitor CBC Monitor CMP Continue telemetry monitoring Continue losartan HCTZ Continue metoprolol 100 mg twice daily Continue Imdur 30 mg daily ordered D dimer stat,which was elevated CTA chest with PE ordered and ultrasound of lower extremities to rule out DVT Cardiology recommended cardiac cath, scheduled for tomorrow Labs and medication were reviewed.. Continue same treatment. Continue with symptomatic treatment. Resume home medication. Monitor labs and vitals. DVT and GI prophylaxis. Further recommendations as per clinical course of the patient Dictation was produced using [employer] dictation software. please excuse any grammatical, word or spelling errors. Objective - Vital Signs Vital signs: Vital Signs Temp 98.0 F 07/20/23 18:20 Pulse 98 07/21/23 08:25 Resp 18 07/21/23 08:25 BP 186/105 07/21/23 08:25 Pulse Ox 99 07/21/23 08:25 FiO2 Intake & Output 07/20/23 07/21/23 07/21/23 18:59 06:59 18:59 Weight 87 kg - Labs CBC & Chem 7: 07/20/23 12:09 07/20/23 12:09 Labs: Abnormal Lab Results - Last 24 Hours (Table) 07/20/23 07/20/23 Range/Units 12:09 12:09 WBC 2.6 L (3.8-10.6) k/uL Hgb 12.9 L (13.0-17.5) gm/dL Lymphocytes # 0.9 L (1.0-4.8) k/uL Chloride 109 H (98-107) mmol/L BUN 8 L (9-20) mg/dL Creatinine 0.60 L (0.66-1.25) mg/dL Glucose 114 H (74-99) mg/dL
[2023-07-21] MEDS: ONDANSETRON 4 MG/2 ML VIAL IVP PRN (16:56)
[2023-07-21] MEDS: ATORVASTATIN 80 MG TAB PO SCH (21:07)
[2023-07-21] MEDS: SODIUM CHLORIDE 0.9% 1,000 ML in EMPTY BAG 1 BAG IV SCH (23:00)
[2023-07-22] MEDS: ONDANSETRON 4 MG/2 ML VIAL IVP PRN ×2 (00:08→05:29)
[2023-07-22] MEDS: HYDROmorphone 0.5 MG/0.5 ML SYRINGE IVP PRN ×8 (00:08→21:40)
[2023-07-22] MEDS ORDERED: ATORVASTATIN 80 MG TAB PO ONE (05:00)
[2023-07-22] MEDS ORDERED: ASPIRIN 325 MG TAB PO ONE (05:00)
[2023-07-22] MEDS ORDERED: HEPARIN SODIUM,PORCINE 10,000 UNIT in SODIUM CHLORIDE 0.9% 1,000 ML IRRIGATION PRN (07:00)
[2023-07-22] MEDS ORDERED: HEPARIN SODIUM,PORCINE (1 ML) 2,500 UNIT in SODIUM CHLORIDE 0.9% 250 ML IRRIGATION PRN (07:00)
[2023-07-22] MEDS ORDERED: IV FLUID CONTINUATION 1,000 ML IV ONE (07:10)
[2023-07-22] MEDS ORDERED: MIDAZOLAM 2 MG/2 ML VIAL IVP ONE (07:34)
[2023-07-22] MEDS ORDERED: LIDOCAINE 1% INJ 10MG/ML (5 ML VIAL-PF) SQ ONE (07:34)
[2023-07-22] MEDS ORDERED: HYDROmorphone 0.5 MG/0.5 ML SYRINGE IVP ONE (07:35)
[2023-07-22] MEDS ORDERED: HEPARIN SODIUM 1,000 UN/ML (10ML VL) IV ONE (07:39)
[2023-07-22] MEDS ORDERED: VERAPAMIL SYRINGE (5 MG/10 ML) INTRAARTER ONE (07:39)
[2023-07-22] MEDS: METOPROLOL TARTRATE 5 MG/5 ML VIAL IVP ONE ×2 (07:40→07:45)
[2023-07-22] MEDS ORDERED: IOPAMIDOL-370 100ML BTL INJ ONE (07:57)
[2023-07-22] MEDS: ASPIRIN 81 MG PO SCH (09:24)
[2023-07-22] MEDS: PANTOPRAZOLE 40 MG TABLET PO SCH (09:24)
[2023-07-22] MEDS: METOPROLOL TARTRATE 50 MG TAB PO SCH ×2 (09:24→20:50)
[2023-07-22] MEDS: amLODIPine 10 MG TAB PO SCH (09:24)
[2023-07-22] MEDS: ISOSORBIDE MONONITRATE ER 30 MG TAB.ER.24H PO SCH (09:24)
[2023-07-22] MEDS: cloNIDine HCL 0.2 MG TAB PO SCH ×2 (09:24→20:50)
[2023-07-22] MEDS: hydrALAZINE HCL 50 MG TAB PO SCH ×3 (09:24→20:50)
[2023-07-22] MEDS: LOSARTAN-HCTZ 50-12.5 MG 1 EACH TAB PO SCH (09:25)
[2023-07-22] MEDS: methIMAzole 5 MG TAB PO SCH ×3 (09:25→20:50)
[2023-07-22] MEDS: GABAPENTIN 400 MG CAP PO SCH ×4 (09:25→20:49)
[2023-07-22] MEDS: SODIUM CHLORIDE 0.9% 1,000 ML in EMPTY BAG 1 BAG IV SCH (11:25)
[2023-07-22] MEDS: SODIUM CHLORIDE 0.9% 1,000 ML IV SCH ×2 (12:27→20:50)
--- NOTE | 2023-07-22 13:28 | P.PN ---
Subjective Progress Note Date: 07/22/23 patient is 67-year-old Patient with past medical history of coronary artery disease, hypertension, hyperlipidemia, hypothyroidism, COPD, DVT, presented to the ER because of chest pain. Patient stated that he was awakened him from sleep this morning with chest pain that was central in location, intermittent, sharp in intensity, radiating to his left shoulder and jaw. Patient chest pain was associated with shortness of breath he denies any aggravating or relieving factors associated with this chest pain. Denied nausea or vomiting. Patient has history of prior coronary disease. 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 Patient seen and examined. Still having chest pain. Denies any shortness of breath at rest but gets short of breath on exertion 07/22. Patient seen and examined. CTA chest done showed no PE. Ultrasound of lower extension also negative for DVT. Currently intubated for cardiac catheter today REVIEW OF SYSTEMS: CONSTITUTIONAL: No fever, no malaise,. CARDIOVASCULAR: As mentioned in HPI PULMONARY: As in HPI GASTROINTESTINAL: No diarrhea, no nausea, no vomiting, no abdominal pain. NEUROLOGICAL: No headaches, no weakness, PHYSICAL EXAMINATION: GENERAL: The patient is alert and oriented x3, not in any acute distress. Well developed, well nourished. HEENT: Pupils are round and equally reacting to light. EOMI. No scleral icterus. No conjunctival pallor. Normocephalic, atraumatic. No pharyngeal erythema. No thyromegaly. CARDIOVASCULAR: S1 and S2 present. No murmurs, rubs, or gallops. PULMONARY: Chest is clear to auscultation, no wheezing or crackles. ABDOMEN: Soft, nontender, nondistended, normoactive bowel sounds. No palpable organomegaly. MUSCULOSKELETAL: No joint swelling or deformity. EXTREMITIES: No cyanosis, clubbing, or pedal edema. NEUROLOGICAL: Gross neurological examination did not reveal any focal deficits. SKIN: No rashes. Assessment and plan Chest pain Hyperlipidemia Neuropathy Chronic back pain Hypertensive emergency Coronary artery disease with previous stenting Hyperthyroidism History of hypertension Former nicotine dependence Chronic pain History of medication noncompliance Monitor vital signs Monitor CBC Monitor CMP Continue telemetry monitoring Continue losartan HCTZ Continue metoprolol 100 mg twice daily Continue Imdur 30 mg daily CTA chest negative for PE ultrasound of lower extremities negative for DVT Cardiology recommended cardiac cath, going for cath today Labs and medication were reviewed.. Continue same treatment. Continue with symptomatic treatment. Resume home medication. Monitor labs and vitals. DVT and GI prophylaxis. Further recommendations as per clinical course of the patient Dictation was produced using [employer] dictation software. please excuse any grammatical, word or spelling errors. Objective - Vital Signs Vital signs: Vital Signs Temp 98.1 F 07/22/23 08:09 Pulse 83 07/22/23 12:48 Resp 16 07/22/23 12:48 BP 205/103 07/22/23 12:48 Pulse Ox 94 L 07/22/23 12:48 FiO2 Intake & Output 07/21/23 07/22/23 07/22/23 18:59 06:59 18:59 Intake Total 540 100 Balance 540 100 Weight 87 kg Intake: IV 100 Oral 540 Other: # Voids 1 - Labs CBC & Chem 7: 07/20/23 12:09 07/20/23 12:09
[2023-07-22] MEDS: ATORVASTATIN 80 MG TAB PO SCH (20:49)
[2023-07-22] MEDS: oxyCODONE-APAP 10-325MG 1 EACH TAB PO PRN (20:49)
[2023-07-23] MEDS: HYDROmorphone 0.5 MG/0.5 ML SYRINGE IVP PRN ×4 (00:32→09:34)
[2023-07-23] MEDS: SODIUM CHLORIDE 0.9% 1,000 ML IV SCH (04:53)
[2023-07-23] MEDS: oxyCODONE-APAP 10-325MG 1 EACH TAB PO PRN ×2 (05:11→11:44)
--- NOTE | 2023-07-23 07:31 | CC ---
CARDIAC CATHETERIZATION REPORT PROCEDURES PERFORMED: Left heart catheterization and coronary angiography. PERFORMED BY: Dr. Valerie Go. ANESTHESIA: Moderate conscious sedation time was 25 minutes. The patient was administered Versed and Dilaudid. Oxygen saturation, hemodynamics, and EKG were monitored closely. CLINICAL INFORMATION: Mr. Salomon Johnson is a 67-year-old gentleman with a known history of CAD and had bifurcation stenting of LAD and diagonal. The last procedure was performed in September 2017 by me. At that time, I stented the ostium of the diagonal and also dilated the LAD within the stented segment. He has been into the hospital recurrently with chest pain. He was hyperthyroid. He was started on methimazole and then scheduled for elective cath today, but he comes in yesterday with chest pain. Troponins were negative. D-dimer was elevated. CT angio was negative for any aortic pathology and pulmonary embolism. He was advised cardiac cath and he was brought in for the procedure this morning after due discussion regarding risks, benefits, and options. PROCEDURE NOTE: Under local anesthesia and strict aseptic precautions, a 6-Korean introducer was placed to the right radial artery. Using JL 3.5 and JR4 catheters, I performed coronary angiography, and a pigtail catheter was used to check LV pressures. LV-gram was not performed. The sheath was taken out and TR band applied as per protocol. Saturation of the fingers of the right hand was 95%. CARDIAC CATHETERIZATION FINDINGS: The left ventricular end-diastolic pressure was 3 mmHg without any gradient across the aortic valve. CORONARY ANGIOGRAPHY FINDINGS: RIGHT CORONARY ARTERY: Dominant vessel or a codominant vessel, tortuous, minor irregularities, no more than 30%, distally, divides into 2 branches. The PDA is larger, PLV is smaller. The amount of myocardium supplied by the branches of RCA is limited, appears to be a codominant vessel. LEFT MAIN CORONARY ARTERY: Short, patent vessel, free of significant disease. Bifurcates into LAD and circumflex. LEFT ANTERIOR DESCENDING CORONARY ARTERY: Good-caliber vessel, extends along the anterior wall. Large vessel supplies a lot of myocardium, curves over the apex to supply the inferoapical portion of left ventricle. The mid LAD that was stented is widely patent with excellent flow. The diagonal is widely patent with excellent flow. There is no significant disease involving the stented areas. The residual stenosis is no more than 30% to 35% LEFT POSTERIOR CIRCUMFLEX CORONARY ARTERY: It was codominant vessel, has no significant disease, supplies a fair amount of myocardium. Gives off a large obtuse marginal and a large PDA branch distally. Minor irregularities of 30%. No significant disease. FINAL IMPRESSION: This patient has a widely patent LAD and diagonal at the site of stenting. He has a codominant system. No significant disease in RCA or circumflex. Normal filling pressures or low filling pressures. No gradient. RECOMMENDATIONS: Findings were discussed with the patient. Aggressive medical therapy with risk factor modification is advised. No intervention. There was no family to talk to and the patient will be discharged tomorrow after we optimize BP control. MMODL / IJN: [id number] /
[2023-07-23] MEDS: hydrALAZINE HCL 50 MG TAB PO SCH (08:59)
[2023-07-23] MEDS: METOPROLOL TARTRATE 50 MG TAB PO SCH (08:59)
[2023-07-23] MEDS: ISOSORBIDE MONONITRATE ER 30 MG TAB.ER.24H PO SCH (08:59)
[2023-07-23] MEDS: LOSARTAN-HCTZ 50-12.5 MG 1 EACH TAB PO SCH (08:59)
[2023-07-23] MEDS: ASPIRIN 81 MG PO SCH (08:59)
[2023-07-23] MEDS: PANTOPRAZOLE 40 MG TABLET PO SCH (09:00)
[2023-07-23] MEDS: methIMAzole 5 MG TAB PO SCH (09:00)
[2023-07-23] MEDS: GABAPENTIN 400 MG CAP PO SCH (09:00)
[2023-07-23] MEDS: amLODIPine 10 MG TAB PO SCH (09:00)
[2023-07-23] MEDS: cloNIDine HCL 0.2 MG TAB PO SCH (09:00)
[2023-07-23] MEDS ORDERED: cloNIDine HCL 0.2 MG TAB PO SCH (11:00)
--- NOTE | 2023-07-23 11:30 | P.PN ---
Subjective Progress Note Date: 07/23/23 HISTORY OF PRESENT ILLNESS: This is a 67-year-old male with a past medical history significant for hyperthyroidism, coronary artery disease with previous stenting, hypertension, hyperlipidemia, chronic pain, former nicotine dependence, and previous medication noncompliance. Patient follows in the office with Dr. Go. We have been asked to see the patient in consultation for chest pain. Patient examined at the bedside. Patient presented to the emergency room with a chief complaint of chest pain. He reports pressure in the middle of his chest and pain into his left arm, back, and jaw. He also reports having shortness of breath when walking. The patient was found to have extremely elevated blood pressures upon admission with a systolic around 240. Patient's blood pressure remains elevated this morning with a reading of 186/105. He continues to report mild chest pre ssure this morning. The patient was scheduled for cardiac catheterization tomorrow at Dr. Go on an outpatient basis. * EKG reveals sinus tachycardia with no signs of acute ischemia * Chest xray negative for acute process * Laboratory data: WBC 2.6. Hemoglobin 12.9. Platelet count 349. Sodium 140. Potassium 3.7. BUN 8. Creatinine 0.60. Magnesium 1.7. Troponin negative 3. * Current home cardiac medications include aspirin 81 mg daily, Lipitor 80 mg at night, Zetia 10 mg daily, metoprolol tartrate 50 mg twice a day, amlodipine 10 mg daily, hydralazine 100 mg 3 times a day * Most recent echocardiogram obtained in April 2023 revealing ejection fraction 60-65% with trace TR * Cardiac catheterization history: April 2019 revealing widely patent LAD at the site of stenting and no more than 30-40% narrowing within the diagonal which was a bifurcation lesion. Left dominant system. No significant disease in RCA or circumflex both of which have minor irregularities. 07/23 Yesterday, patient underwent cardiac catheterization with Dr. BASILIA Go finding widely patent LAD and diagonal at the site of stenting.Skin disease in the RCA or circumflex. Normal filling pressures. No gradient. Results have been discussed with the patient today. Blood pressure 129/72, heart rate 48-60, afebrile, pulse ox 96% on room air. PHYSICAL EXAM: VITAL SIGNS: Reviewed. GENERAL: Well-developed in no acute distress. HEENT: Head is normocephalic. Pupils are equal, round. Sclerae anicteric. Mucous membranes of the mouth are moist. Neck supple. No JVD or thyromegaly LUNGS: Respirations even and unlabored. Lungs essentially clear to auscultation bilaterally. HEART: Regular rate and rhythm. S1 and S2 heard. EXTREMITIES: Normal range of motion. No clubbing or cyanosis. Peripheral pulses intact. No lower extremity edema NEUROLOGIC: Awake and alert. Oriented x 3. ASSESSMENT: Hypertensive emergency Chest pain, troponins negative 3 Coronary artery disease with previous stenting Hyperthyroidism History of hypertension History of hyperlipidemia Former nicotine dependence Chronic pain History of medication noncompliance PLAN: Continue home cardiac medications Continue losartan-hydrochlorothiazide 50-12.5mg daily Continue increased metoprolol to 100 mg twice a day Continue Imdur 30mg daily Patient is cleared from cardiology for discharge home and may follow-up with Dr. BASILIA Go in one week. Nurse practitioner note has been reviewed by physician. Signing provider agrees with the documented findings, assessment, and plan of care. Objective - Vital Signs Vital signs: Vital Signs Temp 97.5 F L 07/23/23 03:42 Pulse 106 H 07/23/23 03:42 Resp 18 07/23/23 03:42 BP 177/95 07/23/23 03:42 Pulse Ox 94 L 07/23/23 03:42 FiO2 Intake & Output 07/22/23 07/23/23 07/23/23 18:59 06:59 18:59 Intake Total 340 118 Balance 340 118 Intake: IV 100 Oral 240 118 Other: # Voids 3 - Labs CBC & Chem 7: 07/20/23 12:09 07/20/23 12:09
[2023-07-23] MEDS ORDERED: LOSARTAN 50 MG TAB PO STA (11:35)
[2023-07-23 11:41] VITALS: PULSE 110; RESP 18; TEMP 98.2
[2023-07-23 12:41] VITALS: BP 168/83
--- NOTE | 2023-07-23 13:15 | P.DS ---
Providers Date of admission: 07/20/23 14:29 Expected date of discharge: 07/23/23 Attending physician: Joselito Ng Consults: 07/20/23 14:28 Consult Physician Routine Consulting Provider: Fannie Go Consult Reason/Comments: CP, plan for cath 07/22 Do you want consulting provider notified?: Yes Primary care physician: Stated None Hospital Course: Discharge diagnoses; Chest pain UNStable angina Hyperlipidemia Neuropathy Chronic back pain Hypertensive emergency Coronary artery disease with previous stenting Hyperthyroidism History of hypertension Former nicotine dependence Chronic pain History of medication noncompliance Hospital course; patient is 67-year-old Patient with past medical history of coronary artery disease, hypertension, hyperlipidemia, hypothyroidism, COPD, DVT, presented to the ER because of chest pain. Patient stated that he was awakened him from sleep this morning with chest pain that was central in location, intermittent, sharp in intensity, radiating to his left shoulder and jaw. Patient chest pain was associated with shortness of breath he denies any aggravating or relieving factors associated with this chest pain. Denied nausea or vomiting. Patient has history of prior coronary disease. 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 Patient seen and examined. Still having chest pain. Denies any shortness of breath at rest but gets short of breath on exertion 07/22. Patient seen and examined. CTA chest done showed no PE. Ultrasound of lower extension also negative for DVT. Currently scheduled for cardiac catheter today 07/23. Patient seen and examined. Cardiac catheter done showed widely patent LAD and diagonal at the site of stenting. No significant disease in RCA or circumflex. Normal pressure pressures or low filling pressures .cardiology cleared the patient for discharge, recommend aggressive medical management PHYSICAL EXAMINATION: GENERAL: The patient is alert and oriented x3, not in any acute distress. Well developed, well nourished. HEENT: Pupils are round and equally reacting to light. EOMI. No scleral icterus. No conjunctival pallor. Normocephalic, atraumatic. No pharyngeal erythema. No thyromegaly. CARDIOVASCULAR: S1 and S2 present. No murmurs, rubs, or gallops. PULMONARY: Chest is clear to auscultation, no wheezing or crackles. ABDOMEN: Soft, nontender, nondistended, normoactive bowel sounds. No palpable organomegaly. MUSCULOSKELETAL: No joint swelling or deformity. EXTREMITIES: No cyanosis, clubbing, or pedal edema. NEUROLOGICAL: Gross neurological examination did not reveal any focal deficits. SKIN: No rashes. Dictation was produced using [employer] dictation software. please excuse any grammatical, word or spelling errors. Patient Condition at Discharge: Stable Plan - Discharge Summary Discharge Rx Participant: No New Discharge Prescriptions: New cloNIDine HCL [Catapres] 0.2 mg PO BID #30 tab Losartan-Hctz 50-12.5 mg [Hyzaar 50-12.5] 1 each PO DAILY #30 tab Isosorbide Mononitrate ER [Imdur] 30 mg PO DAILY #30 tab Metoprolol Tartrate [Lopressor] 100 mg PO BID #30 tab Nitroglycerin Sl Tabs [Nitrostat] 0.4 mg SUBLINGUAL Q5M PRN #30 tab PRN Reason: Chest Pain Continue tiZANidine [Zanaflex] 4 mg PO HS oxyCODONE-APAP 10-325MG [Percocet 10-325 mg] 1 tab PO Q6H PRN PRN Reason: Pain Folic Acid 1 mg PO DAILY Pantoprazole Sodium [Protonix] 40 mg PO DAILY Diclofenac Sodium 3% Gel 1 applic TOPICAL QID PRN PRN Reason: Pain Gabapentin [Neurontin] 400 mg PO TID Ezetimibe [Zetia] 10 mg PO DAILY Atorvastatin [Lipitor] 80 mg PO HS Dicyclomine [Bentyl] 20 mg PO TID methIMAzole [Tapazole] 5 mg PO TID #90 tablet Escitalopram [Lexapro] 10 mg PO DAILY Aspirin EC [Ecotrin Low Dose] 81 mg PO DAILY amLODIPine [Norvasc] 10 mg PO DAILY #30 tab Amitriptyline HCl [Elavil] 10 mg PO HS PRN PRN Reason: SLEEP Benzonatate [Tessalon Perle] 200 mg PO TID PRN PRN Reason: Cough hydrALAZINE HCL [Apresoline] 100 mg PO TID 30 Days #180 tab Discontinued Metoprolol Tartrate [Lopressor] 50 mg PO BID #60 tab Discharge Medication List tiZANidine [Zanaflex] 4 mg PO HS 02/26/18 [History] oxyCODONE-APAP 10-325MG [Percocet 10-325 mg] 1 tab PO Q6H PRN 01/02/20 [History] Aspirin EC [Ecotrin Low Dose] 81 mg PO DAILY 04/23/23 [History] Escitalopram [Lexapro] 10 mg PO DAILY 04/23/23 [History] Folic Acid 1 mg PO DAILY 04/23/23 [History] Pantoprazole Sodium [Protonix] 40 mg PO DAILY 04/23/23 [History] amLODIPine [Norvasc] 10 mg PO DAILY #30 tab 04/26/23 [Rx] Diclofenac Sodium 3% Gel 1 applic TOPICAL QID PRN 05/28/23 [History] Amitriptyline HCl [Elavil] 10 mg PO HS PRN 06/27/23 [History] Atorvastatin [Lipitor] 80 mg PO HS 06/27/23 [History] Benzonatate [Tessalon Perle] 200 mg PO TID PRN 06/27/23 [History] Dicyclomine [Bentyl] 20 mg PO TID 06/27/23 [History] Ezetimibe [Zetia] 10 mg PO DAILY 06/27/23 [History] Gabapentin [Neurontin] 400 mg PO TID 06/27/23 [History] hydrALAZINE HCL [Apresoline] 100 mg PO TID 30 Days #180 tab 06/29/23 [Rx] methIMAzole [Tapazole] 5 mg PO TID #90 tablet 06/29/23 [Rx] Isosorbide Mononitrate ER [Imdur] 30 mg PO DAILY #30 tab 07/23/23 [Rx] Losartan-Hctz 50-12.5 mg [Hyzaar 50-12.5] 1 each PO DAILY #30 tab 07/23/23 [Rx] Metoprolol Tartrate [Lopressor] 100 mg PO BID #30 tab 07/23/23 [Rx] Nitroglycerin Sl Tabs [Nitrostat] 0.4 mg SUBLINGUAL Q5M PRN #30 tab 07/23/23 [Rx] cloNIDine HCL [Catapres] 0.2 mg PO BID #30 tab 07/23/23 [Rx] Follow up Appointment(s)/Referral(s): Fannie Go MD [STAFF PHYSICIAN] - 1 Week None,Stated [Primary Care Provider] - 1-2 days
[2023-07-24] MEDS ORDERED: LOSARTAN-HCTZ 50-12.5 MG 1 EACH TAB PO SCH (09:00)
== END 2023-07-23 13:40 | disposition home or self-care (01) ==
LOC: EC 11:25 → 6NMEDSUR 14:29 → 3SCARD 07-21 11:43
PROVIDERS: ADMIT Hospitalist; ATTEND Hospitalist
DX: I25.110 Atherosclerotic heart disease of native coronary artery with unstable angina pectoris (principal); I10 Essential (primary) hypertension; E78.5 Hyperlipidemia, unspecified; E03.9 Hypothyroidism, unspecified; J44.9 Chronic obstructive pulmonary disease, unspecified; I16.1 Hypertensive emergency; E05.90 Thyrotoxicosis, unspecified without thyrotoxic crisis or storm; G62.9 Polyneuropathy, unspecified; G89.4 Chronic pain syndrome; G43.909 Migraine, unspecified, not intractable, without status migrainosus; K21.9 Gastro-esophageal reflux disease without esophagitis; Z91.148 Patient's other noncompliance with medication regimen for other reason; Z87.11 Personal history of peptic ulcer disease; Z86.718 Personal history of other venous thrombosis and embolism; Z87.891 Personal history of nicotine dependence; Z95.5 Presence of coronary angioplasty implant and graft; Z98.1 Arthrodesis status; Z79.82 Long term (current) use of aspirin; Z79.899 Other long term (current) drug therapy; Z88.5 Allergy status to narcotic agent; Z88.6 Allergy status to analgesic agent
CPT/HCPCS: 96376 ×3; 96374; 96375; 99285; 36415; 93005; 93458; 36410; 76937; 85379; 80053; 83735; 84484; 85025; 85610; 85730; 71046; 93970; 71275; G0378 ×5; C1769; C1894; J2250; J2270; J2405 ×2; J2001; J1644; J1170 ×5; Q9967 ×2

== ENCOUNTER 2023-09-14 09:25 | Emergency (ER) | payer MEDICARE, OTHER ==
[2023-09-14 09:45] VITALS: BP 137/87; PULSE 107; RESP 20; TEMP 98.2
[2023-09-14] MEDS ORDERED: NAPROXEN 250 MG TAB PO STA (09:55)
--- NOTE | 2023-09-14 09:55 | ED ---
General Adult HPI - General Chief complaint: Extremity Problem,Nontraumatic Stated complaint: L knee pain Time Seen by Provider: 09/14/23 09:40 Source: patient, RN notes reviewed Mode of arrival: ambulatory Limitations: no limitations - History of Present Illness Initial comments: Patient is a pleasant 67-year-old male presenting to the emergency Department with knee pain. Patient has chronic left knee pain. Patient is planned to have knee replacement done on the Month with Dr. Melvin here. Patient does have chronic left knee pain. No increa sed swelling. No fever. No redness. Discomfort is similar to previous. Patient presents requesting pain medication. - Related Data Home Medications Medication Instructions Recorded Confirmed tiZANidine [Zanaflex] 4 mg PO HS 02/26/18 07/20/23 oxyCODONE-APAP 10-325MG [Percocet 1 tab PO Q6H PRN 01/02/20 07/20/23 10-325 mg] Aspirin EC [Ecotrin Low Dose] 81 mg PO DAILY 04/23/23 07/20/23 Escitalopram [Lexapro] 10 mg PO DAILY 04/23/23 07/20/23 Folic Acid 1 mg PO DAILY 04/23/23 07/20/23 Pantoprazole Sodium [Protonix] 40 mg PO DAILY 04/23/23 07/20/23 Diclofenac Sodium 3% Gel 1 applic TOPICAL QID PRN 05/28/23 07/20/23 Amitriptyline HCl [Elavil] 10 mg PO HS PRN 06/27/23 07/20/23 Atorvastatin [Lipitor] 80 mg PO HS 06/27/23 07/20/23 Benzonatate [Tessalon Perle] 200 mg PO TID PRN 06/27/23 07/20/23 Dicyclomine [Bentyl] 20 mg PO TID 06/27/23 07/20/23 Ezetimibe [Zetia] 10 mg PO DAILY 06/27/23 07/20/23 Gabapentin [Neurontin] 400 mg PO TID 06/27/23 07/20/23 Previous Rx's Medication Instructions Recorded amLODIPine [Norvasc] 10 mg PO DAILY #30 tab 04/26/23 hydrALAZINE HCL [Apresoline] 100 mg PO TID 30 Days #180 tab 06/29/23 methIMAzole [Tapazole] 5 mg PO TID #90 tablet 06/29/23 Isosorbide Mononitrate ER [Imdur] 30 mg PO DAILY #30 tab 07/23/23 Losartan-Hctz 50-12.5 mg [Hyzaar 1 each PO DAILY #30 tab 07/23/23 50-12.5] Metoprolol Tartrate [Lopressor] 100 mg PO BID #30 tab 07/23/23 Nitroglycerin Sl Tabs [Nitrostat] 0.4 mg SUBLINGUAL Q5M PRN #30 tab 07/23/23 cloNIDine HCL [Catapres] 0.2 mg PO BID #30 tab 07/23/23 Naproxen 250 mg PO BID #30 tablet 09/14/23 Allergies Allergy/AdvReac Type Severity Reaction Status Date / Time codeine Allergy Itching Verified 09/14/23 09:39 ibuprofen [From Motrin] Allergy Rash/Hives Verified 09/14/23 09:39 ketorolac tromethamine Allergy Rash/Hives Verified 09/14/23 09:39 [From Toradol] Review of Systems ROS Statement: Those systems with pertinent positive or pertinent negative responses have been documented in the HPI. ROS Other: All systems not noted in ROS Statement are negative. Constitutional: Denies: fever Eyes: Denies: eye pain ENT: Denies: ear pain Respiratory: Denies: dyspnea Musculoskeletal: Reports: as per HPI Skin: Denies: rash Past Medical History Past Medical History: Coronary Artery Disease (CAD), Chest Pain / Angina, COPD, Deep Vein Thrombosis (DVT), GERD/Reflux, Hyperlipidemia, Hypertension, Osteoarthritis (OA), Thyroid Disorder Additional Past Medical History / Comment(s): Occasional palpitations, gastritis, small hiatal hernia, diverticular dx, pt states years ago he had PUD, chronic low back pain, chronic pain syndrome, migraines, DVT L arm, numbness/tingling bilateral lower legs, bilateral past R hand fracture, arthritis multiple joints, hyperthyroid, sinus problems. History of Any Multi-Drug Resistant Organisms: None Reported Past Surgical History: Back Surgery, Cholecystectomy, Heart Catheterization With Stent, Orthopedic Surgery Additional Past Surgical History / Comment(s): EGDs/colonoscopies, multiple low back surgeries, bilateral arm and bilateral thigh surgeries for brown recluse spider bites with infection, morphine pain pump insertion and removal due to infection, PCI with stents, L rotator cuff repair, L knee arthroscopy, cervical fusion/cage, R cataract removal. 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 states he was "down for 12 minutes" lower back surgery Date of Last Stent Placement:: 10/12/17 Past Psychological History: No Psychological Hx Reported Smoking Status: Former smoker Past Alcohol Use History: None Reported Past Drug Use History: None Reported - Past Family History Father Family Medical History: No Reported History Additional Family Medical History / Comment(s): Father had back problems. He lived to be 82 yrs old. Mother History Unknown: Yes Family Medical History: Hypertension, Myocardial Infarction (DC) Additional Family Medical History / Comment(s): Mother of a DC at the age of 55yrs. Brother(s) Family Medical History: Cancer, COPD Additional Family Medical History / Comment(s): Leukemia General Exam Limitations: no limitations General appearance: alert, in no apparent distress Head exam: Present: normocephalic Neck exam: Present: normal inspection Respiratory exam: Present: normal lung sounds bilaterally Cardiovascular Exam: Present: regular rate, normal rhythm Extremities exam: Present: tenderness (Mild tenderness in the medial meniscus region of the left knee.). Absent: joint swelling Neurological exam: Present: alert Psychiatric exam: Present: normal affect, normal mood Skin exam: Present: normal color Course Vital Signs 09/14/23 09:37 Temperature 98.2 F Pulse Rate 107 H Respiratory 20 Rate Blood Pressure 137/87 O2 Sat by Pulse 99 Oximetry Medical Decision Making - Medical Decision Making Was pt. sent in by a medical professional or institution (Dr. PA, HORSE DOCTOR, urgent care, hospital, or usp...) When possible be specific @ -No Did you speak to anyone other than the patient for history (EMS, parent, family, police, friend...)? What history was obtained from this source @ -No Did you review nursing and triage notes (agree or disagree)? Why? @ -I reviewed and agree with nursing and triage notes Were old charts reviewed (outside hosp., previous admission, EMS record, old EKG, old radiological studies, urgent care reports/EKG's, usp records)? Report findings @ -No old charts were reviewed Differential Diagnosis (chest pain, altered mental status, abdominal pain women, abdominal pain men, vaginal bleeding, weakness, fever, dyspnea, syncope, headache, dizziness, GI bleed, back pain, seizure, CVA, palpatations, mental health, musculoskeletal)? @ -Patient does have paperwork with him. Find scheduled procedure on the . EKG interpreted by me (3pts min.). @ -As above X-rays interpreted by me (1pt min.). CT interpreted by me (1pt min.). @ -None done U/S interpreted by me (1pt. min.). @ -None done What testing was considered but not performed or refused? (CT, X-rays, U/S, labs)? Why? @ -Patient states he has had recent x-rays and does not feel he needs further once. What meds were considered but not given or refused? Why? @ -None Did you discuss the management of the patient with other professionals (professionals i.e. , PA, HORSE DOCTOR, lab, RT, psych nurse, social worker aide, examiner rating clerk, teacher, loan officer, case briefer)? Give summary @ -No Was smoking cessation discussed for >3mins.? @ -No Was critical care preformed (if so, how long)? @ -No Were there social determinants of health that impacted care today? How? (Homelessness, low income, unemployed, alcoholism, drug addiction, transportation, low edu. Level, literacy, decrease access to med. care, senior living, rehab)? @ -No Was there de-escalation of care discussed even if they declined (Discuss DNR or withdrawal of care, Hospice)? DNR status @ -No What co-morbidities impacted this encounter? (DM, HTN, Smoking, COPD, CAD, Cancer, CVA, ARF, Chemo, Hep., AIDS, mental health diagnosis, sleep apnea, morbid obesity)? @ -None Was patient admitted / discharged? Hospital course, mention meds given and route, prescriptions, significant lab abnormalities, going to OR and other per tinent info. @ -Patient presents to emergency department with concerns for chronic pain. Patient has multiple previous visits secondary to chronic pain. Patient refuses Ultram. Patient is receptive to a nonsteroidal anti-inflammatory that he has not tried previously. Undiagnosed new problem with uncertain prognosis? @ -No Drug Therapy requiring intensive monitoring for toxicity (Heparin, Nitro, Insulin, Cardizem)? @ -No Were any procedures done? @ -No Diagnosis/symptom? @ -Left knee pain Acute, or Chronic, or Acute on Chronic? @ -Acute on chronic Uncomplicated (without systemic symptoms) or Complicated (systemic symptoms)? @ -default Side effects of treatment? @ -No Exacerbation, Progression, or Severe Exacerbation? @ -No Poses a threat to life or bodily function? How? (Chest pain, [place], DC, pneumonia, PE, COPD, DKA, ARF, appy, cholecystitis, CVA, Diverticulitis, Homicidal, Suicidal, threat to staff... and all critical care pts) @ -No Disposition Clinical Impression: Left knee pain, Chronic pain Disposition: HOME SELF-CARE Condition: Stable Instructions (If sedation given, give patient instructions): Chronic Pain (ED), Knee Pain (ED) Additional Instructions: Please do follow-up with your orthopedic doctor and primary care physician in the next day or 2 for recheck. Return for increased pain, fever, swelling, redness, worsening symptoms or other concerns. Prescription sent to pharmacy. Prescriptions: Naproxen 250 mg PO BID #30 tablet Is patient prescribed a controlled substance at d/c from ED?: No Referrals: Neslon Vance MD [STAFF PHYSICIAN] - 1-2 days Nelson Lucia MD [STAFF PHYSICIAN] - 1-2 days Time of Disposition: 09:53
== END 2023-09-14 10:39 | disposition home or self-care (01) ==
LOC: EC 09:25
DX: G89.4 Chronic pain syndrome (principal); M25.562 Pain in left knee; I25.10 Atherosclerotic heart disease of native coronary artery without angina pectoris; J44.9 Chronic obstructive pulmonary disease, unspecified; I10 Essential (primary) hypertension; E78.5 Hyperlipidemia, unspecified; E07.9 Disorder of thyroid, unspecified; Z87.891 Personal history of nicotine dependence; Z88.6 Allergy status to analgesic agent; Z88.8 Allergy status to other drugs, medicaments and biological substances; Z79.82 Long term (current) use of aspirin; Z79.899 Other long term (current) drug therapy
CPT/HCPCS: 99283

== ENCOUNTER → 2023-09-28 | Outpatient (CLI) | payer MEDICARE, OTHER ==
[2023-09-28 21:41] LABS: HCT 41.2 % (39.6-50.0); HGB 13.1 d/dL (13.0-17.0); MCH 28.9 pg (27.0-32.0); MCHC 31.8 d/dL (32.0-37.0); MCV 90.7 FL (80.0-97.0); NRBC Per 100 WBC 0 X 10*3/uL (0.00-0.01); Platelet Count 376 X 10*3/uL (140-440); RBC 4.54 X 10*6/uL (4.40-5.60); RDW 14.6 % (11.5-14.5); WBC 3.78 X 10*3/uL (4.50-10.00)
[2023-09-29 02:20] LABS: BUN/Creat Ratio 10.29 Ratio (12.00-20.00); Blood Urea Nitrogen 7.2 mg/dL (9.0-27.0); Calcium 9.7 mg/dL (8.7-10.3); Chloride 108 mmol/L (96-109); Glucose 89 mg/dL (70-110); Potassium 4.5 mmol/L (3.5-5.5); Sodium 140 mmol/L (135-145); T4, Free (Free Thyroxine) 1.81 ng/dL (0.80-1.80)
== END | disposition home or self-care (01) ==
LOC: LABPAT 13:32
PROVIDERS: ATTEND Orthopaedic Surgery
DX: Z01.812 Encounter for preprocedural laboratory examination (principal); Z22.322 Carrier or suspected carrier of Methicillin resistant Staphylococcus aureus; M17.12 Unilateral primary osteoarthritis, left knee; E03.9 Hypothyroidism, unspecified
CPT/HCPCS: 80048; 84439; 84443; 84481; 85027; 87070

== ENCOUNTER → 2023-10-22 | Outpatient (CLI) | payer MEDICARE ==
[2023-10-23 03:44] LABS: T4, Free (Free Thyroxine) 1.43 ng/dL (0.80-1.80)
== END | disposition home or self-care (01) ==
LOC: LABWHC1 14:37
PROVIDERS: ATTEND Internal Medicine Endocrinology, Diabetes & Metabolism
DX: E05.00 Thyrotoxicosis with diffuse goiter without thyrotoxic crisis or storm (principal)
CPT/HCPCS: 36415; 84439; 84443; 84445; 84480

== ENCOUNTER 2023-10-27 06:28 | Observation (INO) | payer MEDICARE, OTHER ==
[2023-10-22 09:38] VITALS: BMI 25.4
--- NOTE | 2023-10-26 08:31 | P.HPOR ---
History of Present Illness H&P Date: 10/26/23 Chief Complaint: Left knee pain The patient is a 67-year-old retired male who presents with progressive left knee pain for the past several years worsening over the past year. He notes stiffness and swelling. He had a difficult time with any weightbearing activities. He is having night symptoms. He tried previous injections along with medications with only temporary partial relief. Review of Systems Negative except as in HPI Past Medical History Past Medical History: Coronary Artery Disease (CAD), Chest Pain / Angina, COPD, Deep Vein Thrombosis (DVT), GERD/Reflux, Hyperlipidemia, Hypertension, Ost eoarthritis (OA), Thyroid Disorder Additional Past Medical History / Comment(s): Occasional palpitations, gastritis, small hiatal hernia, diverticular dx, pt states years ago he had PUD, chronic low back pain, chronic pain syndrome, migraines, DVT L arm, numbness/tingling bilateral lower legs, past R hand fracture, arthritis multiple joints, hyperthyroid, sinus problems. History of Any Multi-Drug Resistant Organisms: None Reported Past Surgical History: Back Surgery, Cholecystectomy, Heart Catheterization With Stent, Orthopedic Surgery Additional Past Surgical History / Comment(s): EGDs/colonoscopies, multiple low back surgeries, bilateral arm and bilateral thigh surgeries for brown recluse spider bites with infection, morphine pain pump insertion and removal due to infection, PCI with stents, L rotator cuff repair, L knee arthroscopy, cervical fusion/cage, R cataract removal. 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 states he was "down for 12 minutes" lower back surgery Date of Last Stent Placement:: 10/12/17 Smoking Status: Former smoker - Past Family History Father Family Medical History: No Reported History Additional Family Medical History / Comment(s): Father had back problems. He lived to be 82 yrs old. Mother History Unknown: Yes Family Medical History: Hypertension, Myocardial Infarction ([place]) Additional Family Medical History / Comment(s): Mother of a [place] at the age of 55yrs. Brother(s) Family Medical History: Cancer, COPD Additional Family Medical History / Comment(s): Leukemia Medications and Allergies Home Medications Medication Instructions Recorded Confirmed Type tiZANidine [Zanaflex] 4 mg PO TID 02/26/18 10/22/23 History oxyCODONE-APAP 10-325MG [Percocet 1 tab PO Q6H PRN 01/02/20 10/22/23 History 10-325 mg] Aspirin EC [Ecotrin Low Dose] 81 mg PO DAILY 04/23/23 10/22/23 History Escitalopram [Lexapro] 10 mg PO DAILY 04/23/23 10/22/23 History Folic Acid 1 mg PO DAILY 04/23/23 10/22/23 History Pantoprazole Sodium [Protonix] 40 mg PO DAILY 04/23/23 10/22/23 History amLODIPine [Norvasc] 10 mg PO DAILY #30 tab 04/26/23 10/22/23 Rx Atorvastatin [Lipitor] 80 mg PO HS 06/27/23 10/22/23 History Benzonatate [Tessalon Perle] 200 mg PO TID PRN 06/27/23 10/22/23 History Dicyclomine [Bentyl] 20 mg PO TID 06/27/23 10/22/23 History Ezetimibe [Zetia] 10 mg PO DAILY 06/27/23 10/22/23 History Gabapentin [Neurontin] 400 mg PO TID 06/27/23 10/22/23 History hydrALAZINE HCL [Apresoline] 100 mg PO TID 30 Days #180 tab 06/29/23 10/22/23 Rx methIMAzole [Tapazole] 5 mg PO TID #90 tablet 06/29/23 10/22/23 Rx Isosorbide Mononitrate ER [Imdur] 30 mg PO DAILY #30 tab 07/23/23 10/22/23 Rx Losartan-Hctz 50-12.5 mg [Hyzaar 1 each PO DAILY #30 tab 07/23/23 10/22/23 Rx 50-12.5] Metoprolol Tartrate [Lopressor] 100 mg PO BID #30 tab 07/23/23 10/22/23 Rx Nitroglycerin Sl Tabs [Nitrostat] 0.4 mg SUBLINGUAL Q5M PRN #30 tab 07/23/23 10/22/23 Rx cloNIDine HCL [Catapres] 0.2 mg PO BID #30 tab 07/23/23 10/22/23 Rx Naproxen 250 mg PO BID #30 tablet 09/14/23 10/22/23 Rx Morphine Sulfate ER [Ms Contin] 30 mg PO Q8H 10/22/23 10/22/23 History Allergies Allergy/AdvReac Type Severity Reaction Status Date / Time codeine Allergy Itching Verified 10/22/23 09:09 ibuprofen [From Motrin] Allergy Rash/Hives Verified 10/22/23 09:09 ketorolac tromethamine Allergy Rash/Hives Verified 10/22/23 09:09 [From Toradol] Physical Examination - Knee left Appearance: effusion Effusion grade: grade 1 Valgus alignment in stance: 5 degrees Tenderness with palpation: anterior, medial Pain: throughout ROM Gait: limping ROM: extension: -15 degrees ROM: flexion: 90 degrees Crepitus with motion: Yes Strength: extension: 5/5 Strength: flexion: 5/5 Meniscal tests: medial meniscal tests: positive, medial joint line pain: positive Results The patient is a well-developed well-nourished male approximately 5 foot 11, 175 pounds of mesomorphic habits. HEENT exam is nonfocal, neck is supple. He has painless passive motion of the left hip. Straight leg raise is negative. He's tender about the medial joint line of the left knee. Collaterals are stable, Alcides was negative, Jennifer's is equivocal. His distal neurovascular appears intact in the left lower extremity. - Diagnostic results Knee x-ray: image reviewed (3 views of the left knee obtaining office show severe medial compartment osteoarthrosis with [id number] changes and subchondral sclerosis.) Assessment and Plan Assessment: Left knee severe medial compartment osteoarthrosis Plan: I talked to the patient regarding his condition along with treatment options. At this point he has significant pain and mechanical symptoms related to his left knee osteoarthrosis despite conservative measures. After a thorough discussion he opts to proceed with surgery. We'll plan to proceed with left total knee arthroplasty. Risks and benefits were discussed at length in layman's terms. We will institute DVT prophylaxis postoperatively.
[~2023-10-27 06:28] MED LIST: ACETAMINOPHEN TAB 500 MG TAB PO PRN; MELOXICAM 7.5 MG TAB PO PRN; TRANEXAMIC 1,000 MG/100ML-NACL 1,000 MG in SALINE 1 100ML.BAG IVPB PRN
[2023-10-27] MEDS: LACTATED RINGERS 1,000 ML IV SCH (11:28)
[2023-10-27] MEDS ORDERED: fentaNYL (PF) 50 MCG/ML 2 ML AMP IVP ONE (12:36)
[2023-10-27] MEDS ORDERED: MIDAZOLAM 2 MG/2 ML VIAL IVP ONE ×2 (12:36→12:47)
[2023-10-27] MEDS: DEXAMETHASONE SOD PHOSPHATE 4 MG/ML 1 ML VIAL IV ONE ×2 (12:39→18:12)
[2023-10-27] MEDS: ONDANSETRON 4 MG/2 ML VIAL IVP ONE ×2 (12:39→18:12)
[2023-10-27 12:42] LABS: INR 0.9 (<1.2); Prothrombin Time 10.5 sec (10.0-12.5)
--- NOTE | 2023-10-27 13:09 | P.ANPRN ---
Procedure Note - Anesthesia - Invasive Line Right Central Line Time Out Performed: Yes (1227) Date of Procedure: 10/27/23 Time of Procedure: 12:28 Location of Patient: PreOp Preparation: Sterile Prep, Sterile Dressing Central Line Location: Internal Jugular (right IJ JACK) Ultrasound Used: Yes Purpose - Visualization and Identification of Vasculature: Yes Needle Guage: 18g Image Stored and Saved: Yes Narrative: Central line placement per sterile protocol utilized. +local +angio +cvp +uneventful dilation and introduction right IJ JACK. Lumens bled and flushed. i
--- NOTE | 2023-10-27 13:09 | P.ANPRN ---
Procedure Note - Anesthesia - Nerve Block Performed Left Adductor Canal Infusion Time Out Performed: Yes (1246) Date of Procedure: 10/27/23 Procedure Start Time: 12:47 Procedure Stop Time: 12:55 Location of Patient: PreOp Indication: Acute Post-Operative Pain, Requested by Surgeon Specifically requested for management of pain by : Nelson Vance Sedation Type: Sedate with meaningful contact maintained Preparation: Sterile Prep, Sterile Dressing Position: Supine Catheter Depth at Skin (cm): 6 Catheter: Indwelling Needle Types: Pajunk Needle Gauge: 18 Ultrasound used to visualize needle placement: Yes Ultrasound used to observe medication spread: Yes Injectate: 0.5% Ropivacaine (see comment for volume) (15cc + 5cc nacl pf) Blood Aspirated: No Pain Paresthesia on Injection Noted: No Resistance on Injection: Normal Image Stored and Saved: Yes Events: Uneventful and Well Tolerated
--- NOTE | 2023-10-27 13:11 | P.ANPRN ---
Procedure Note - Anesthesia - Nerve Block Performed Left iPack Single Time Out Performed: Yes (1246) Date of Procedure: 10/27/23 Procedure Start Time: 12:56 Procedure Stop Time: 13:00 Location of Patient: PreOp Indication: Acute Post-Operative Pain, Requested by Surgeon Specifically requested for management of pain by DrYana: Nelson Vance Sedation Type: Sedate with meaningful contact maintained Preparation: Sterile Prep Position: Supine Catheter: None Needle Types: Pajunk Needle Gauge: 21 Ultrasound used to visualize needle placement: Yes Ultrasound used to observe medication spread: Yes Injectate: 0.5% Ropivacaine (see comment for volume) (15cc+ 5cc nacl pf) Blood Aspirated: No Pain Paresthesia on Injection Noted: No Resistance on Injection: Normal Image Stored and Saved: Yes Events: Uneventful and Well Tolerated
[2023-10-27] MEDS ORDERED: SUCCINYLCHOLINE CHLORIDE 200 MG/10 ML VIAL IV ONE (13:30)
[2023-10-27] MEDS ORDERED: fentaNYL (PF) 50 MCG/ML 2 ML AMP ONE (13:30)
[2023-10-27] MEDS ORDERED: SODIUM CHLORIDE 0.9% (PF) 10 ML VIAL ONE (13:30)
[2023-10-27] MEDS ORDERED: NEOSTIGMINE 1 MG/ML 10 ML VIAL ONE (13:30)
[2023-10-27] MEDS ORDERED: ROCURONIUM 10 MG/ML (5 ML VIAL) IV ONE (13:30)
[2023-10-27] MEDS ORDERED: GLYCOPYRROLATE 0.2 MG/ML 2 ML VIAL ONE (13:30)
[2023-10-27] MEDS ORDERED: hydrALAZINE HCL 20 MG/ML 1 ML VIAL ONE (13:30)
[2023-10-27] MEDS ORDERED: TRANEXAMIC 1,000 MG/100ML-NACL PREMIX BAG ONE (13:30)
[2023-10-27] MEDS ORDERED: ROPIVACAINE 5 MG/ML 30 ML VIAL ONE (13:30)
[2023-10-27] MEDS ORDERED: LIDOCAINE 1% INJ 10MG/ML (20 ML MDV) ONE (13:30)
[2023-10-27] MEDS ORDERED: MIDAZOLAM 2 MG/2 ML VIAL ONE (13:30)
[2023-10-27] MEDS ORDERED: ESMOLOL 100 MG/10 ML VIAL ONE (13:30)
[2023-10-27] MEDS ORDERED: KETAMINE HCL IN 0.9 % NACL 50 MG/5 ML SYRINGE ONE (13:30)
[2023-10-27] MEDS ORDERED: PROPOFOL 10 MG/ML 20 ML VIAL IV ONE (13:30)
--- NOTE | 2023-10-27 13:38 | XR ---
EXAMINATION TYPE: XR chest 1V portable DATE OF EXAM: 10/27/2023 COMPARISON: 07/20/2023 HISTORY: Central line TECHNIQUE: Single frontal view of the chest is obtained. FINDINGS: There is dilation of the ascending aorta suspicious for aneurysm. Central line with tip ov erlying SVC. Postsurgical changes in the cervical spine. Diffuse osteopenia. No overt failure. Underl elise COPD. IMPRESSION: Findings are suggestive of aortic thoracic aneurysm.
[2023-10-27] MEDS ORDERED: ceFAZolin 1,000 MG in SODIUM CHLORIDE 0.9% 1,000 ML IRRIGATION ONE (14:09)
[2023-10-27] MEDS ORDERED: MAGNESIUM HYDROXIDE 2,400 MG/30 ML CUP PO PRN (15:27)
[2023-10-27] MEDS ORDERED: ACETAMINOPHEN TAB 325 MG TAB PO PRN (15:27)
[2023-10-27] MEDS ORDERED: HYDROmorphone 0.5 MG/0.5 ML SYRINGE IVP PRN (15:27)
[2023-10-27] MEDS ORDERED: NALOXONE 0.4 MG/ML 1 ML VIAL IV PRN (15:27)
[2023-10-27] MEDS ORDERED: oxyCODONE-APAP 10-325MG 1 EACH TAB PO PRN (15:30)
[2023-10-27] MEDS ORDERED: oxyCODONE-APAP 7.5-325MG 1 EACH TAB PO PRN (15:31)
--- NOTE | 2023-10-27 15:45 | P.OP ---
Date of Procedure: 10/27/23 Preoperative Diagnosis: Left knee severe tricompartmental osteoarthrosis Postoperative Diagnosis: Same Procedure(s) Performed: Left total knee arthroplastycementedcruciate retaining Implants: Depuy Attune size 8 cemented femoral component, size 7 cemented tibial component, 9 mm articular surface, 38 mm cemented patellar component. This is a cruciate retaining implant. Anesthesia: [facility] Surgeon: Nelson Vance Tunnel Mucker #1: Robert Lomeli Estimated Blood Loss (ml): 50 Pathology: none sent Condition: stable Disposition: PACU Indications for Procedure: The patient 67-year-old male presents with progressive left knee pain secondary to osteoarthrosis despite conservative measures. A discussion of the risks and benefits of operative intervention versus continued conservative measures was made with patient. He opted to proceed with surgery. Operative risks to include infection, neurovascular injury, development of blood clots, fracture, possible component loosening/failure need for subsequent procedures was di scussed. Informed consent was obtained. Operative Findings: As below Description of Procedure: The patient was brought to the operating room, and after induction of spinal anesthesia the left lower extremity was prepped and draped in a normal fashion. The tourniquet was inflated to 270 mmHg. A longitudinal incision extending 3 finger breaths above the superior pole of the patella extending to the medial aspect the tibial tubercle was then made. The skin and subcutaneous tissues were divided sharply. Electrocautery was used for hemostasis. A medial parapatellar arthrotomy was then performed. The medial soft tissues to include the superficial and deep portions of the medial collateral ligament as well as the medial hamstring tendons were elevated subperiosteally. The proximal medial tibia osteophytes were carefully removed. The patella was everted. The knee was flexed. A portion of the retropatellar fat pad was excised sharply. The anterior cruciate ligament was sacrificed. A starting hole was made in the distal femur 1 cm anterior to the posterior cruciate origin. An intramedullary femoral guide was gently inserted planning on 5 valgus distal cut with 9 mm distal resection. The cutting block was pinned in place. The distal cut was then made. The posterior referencing sizing guide was utilized. 3 of external rotation was built into the system and verified off the trans- epicondylar axis and the posterior condyles. I felt size 8 was most appropriate. The cutting block was pinned in place. The anterior, posterior, and chamfer cuts were then made. The bone fragments were removed. A sulcus cut was then made with the appropriate guide. The trial size 8 femoral component was then placed and was fully seated. There was good anterior to posterior and medial to lateral fit. The distal peg holes were then drilled. The trial component was then removed. Attention was then paid towards preparing the proximal tibia. An extra medullary guide was utilized in line with the tibial shaft and second metatarsal distally. A 7 posterior slope was planned. I planned on 2 mm resection from the medial compartment. The cutting block was pinned in place. The proximal tibial cut was then made. The bone was removed in one fragment. The remnants of the medial and lateral menisci were excised t he capsule junction with electrocautery. The tibia sized most appropriately at size 7. The posterior osteophytes off the distal femur were carefully removed with a curved osteotome. The trial tibial and femoral components were placed along with a 9 millimeters articular surface. I was able to obtain full flexion and extension with good stability with varus and valgus stress. After several flexion and extension cycles, the tibial rotation was marked with electrocautery in line with the medial one third of the tibial tubercle. Attention was then paid towards preparing the patella. A patella reamer was utilized taking this down to 14 mm of bone stock. A good flush cut was made. The patella sized most appropriately at 38 millimeters. The peg holes were then drilled. The trial component was placed. The knee was taken through a range of motion. I had good patellofemoral tracking with no hands technique. The trial components were then removed. The tibia was prepared in the appropriate rotation with appropriate drill and keel punch. The flexion and extension gaps were checked and felt to be symmetric. The bony surfaces were prepared with pulsatile lavage and dried. The deep tibial component was then cemented in place and was fully seated. Excess cement was removed. The femoral component was cemented in place and was fully seated. Again excess cement was removed. The trial 9 millimeters surface was then inserted in the knee was put in full extension. The patella component was cemented in place. After the cement had sufficiently hardened, the knee was again taken through a range of motion. Again there was good stability in flexion and extension with varus and valgus stress. The trial articular surface was then removed. The final articular surface was placed and was impacted. Care was taken to avoid any soft tissue interposition. Pulsatile lavage was again utilized. The tourniquet was deflated with approximately 60 minutes total tourniquet time. There was minimal drainage therefore a deep drain was not placed. The medial parapatellar arthrotomy was then closed with #2 Ethibond suture. The subcutaneous tissues were reapproximated interrupted 2- 0 Vicryl sutures. The skin was reapproximated with 3-0 subarticular strata fix suture. Skin tape and adhesive was applied. A sterile dressing was applied. The patient was then awoken from sedation and transferred to recovery room in good condition. Blood loss was estimated at 50 milliliters. No complications were incurred. Sponge and needle counts were correct at the end the case. Robert CUEVAS assisted during the major components this case to include exposure, bone resection, and implantation.
[2023-10-27] MEDS: fentaNYL (PF) 50 MCG/ML 2 ML AMP IV PRN ×6 (16:03→17:14)
[2023-10-27] MEDS ORDERED: LACTATED RINGERS 1,000 ML IV ONE (17:00)
--- NOTE | 2023-10-27 17:11 | XR ---
EXAMINATION TYPE: XR knee limited LT DATE OF EXAM: 10/27/2023 4:39 PM CLINICAL INDICATION:Male, 67 years old with history of Evaluation for Postop abnormality and alignmen t; COMPARISON: None. TECHNIQUE: XR knee limited LT; examined in Frontal, lateral and oblique projections. FINDINGS: Status post total knee arthroplasty changes with hardware in appropriate alignment and in tact. No evidence of fracture. Subcutaneous lucencies and lucencies within the joint consistent with surgical changes. IMPRESSION: Status post total knee arthroplasty changes with hardware intact and appropriate alignment. No fractu res identified.
[2023-10-27] MEDS ORDERED: HYDROmorphone 1 MG/ML 1 ML SYRINGE IVP ONE (17:26)
[2023-10-27] MEDS ORDERED: LABETALOL 5 MG/ML VIAL MDV IVP ONE (17:41)
[2023-10-27] MEDS: GABAPENTIN 400 MG CAP PO SCH ×2 (18:13→21:12)
[2023-10-27] MEDS: HYDROmorphone 0.5 MG/0.5 ML SYRINGE IVP PRN ×2 (18:30→21:13)
[2023-10-27] MEDS: tiZANidine 4 MG TAB PO PRN (19:00)
[2023-10-27] MEDS: SENNOSIDES-DOCUSATE SODIUM 1 EACH TAB PO SCH (21:12)
--- NOTE | 2023-10-27 22:46 | P.CONS ---
History of Present Illness - Reason for Consult Consult date: 10/27/23 - History of Present Illness Patient is a 67-year-old male with a PMH of COPD, CAD status post stents, hypertension, history of DVT not on anticoagulation, hyperlipidemia, and chronic debility who was admitted to the hospital for an elective left knee replacement. The patient underwent the procedure earlier today and was seen postoperatively on the surgical unit. He reported ongoing 7 out of 10 left knee pain. Denied any additional complaints. Denied experiencing chest discomfort, shortness of breath, fever, chills, cough or nausea, vomiting, abdominal pain, diarrhea. Reports having passed urine and flatus since his surgery. Review of systems: Pertinent positives and negatives as discussed in HPI, a complete review of systems was performed and all other systems are negative. Physical examination: Vital signs reviewed General: non toxic, no distress, appears at stated age, normal weight Derm: no unusual rashes/lesions, warm Head: atraumatic, normocephalic, symmetric Eyes: EOMI, no lid lag, anicteric sclera, pupils equal round reactive to light ENT: Nose and ears atraumatic Neck: No cervical lymphadenopathy, trachea midline, supple Mouth: no lip lesion, mucus membranes moist Cardiovascular: S1S2 reg, no murmur, positive dorsalis pedis pulse bilateral, no edema Lungs: CTA bilateral, no rhonchi, no rales, no accessory muscle use Abdominal: soft, nontender to palpation, no guarding Ext: muscle strength 5 out of 5 in all extremities grossly except left lower extremity postoperatively, left knee Ezra bandage in place, no gross muscle atrophy, no contractures, Neuro: CN II-XI grossly intact, no gross focal neuro deficits Psych: Alert, oriented, appropriate affect Assessment: Chronic conditions: COPD, CAD, hypertension, hyperlipidemia, history of DVT Status post left total knee replacement Plan: Continue with patient's home medications Defer management of pain control and DVT prophylaxis to the primary surgery service We appreciate this opportunity to be involved in this patient's care. We will follow the patient with you. For any further questions, please not hesitate to contact the sound inpatient team. Past Medical History Past Medical History: Coronary Artery Disease (CAD), Chest Pain / Angina, COPD, Deep Vein Thrombosis (DVT), GERD/Reflux, Hyperlipidemia, Hypertension, Osteoarthritis (OA), Thyroid Disorder Additional Past Medical History / Comment(s): Occasional palpitations, gastritis, small hiatal hernia, diverticular dx, pt states years ago he had PUD, chronic low back pain, chronic pain syndrome, migraines, DVT L arm, numbness/tingling bilateral lower legs, past R hand fracture, arthritis multiple joints, hyperthyroid, sinus problems. History of Any Multi-Drug Resistant Organisms: None Reported Past Surgical History: Back Surgery, Cholecystectomy, Heart Catheterization With Stent, Orthopedic Surgery Additional Past Surgical History / Comment(s): EGDs/colonoscopies, multiple low back surgeries, bilateral arm and bilateral thigh surgeries for brown recluse spider bites with infection, morphine pain pump insertion and removal due to infection, PCI with stents, L rotator cuff repair, L knee arthroscopy, cervical fusion/cage, R cataract removal. 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 states he was "down for 12 minutes" lower back surgery Date of Last Stent Placement:: 10/12/17 Past Psychological History: No Psychological Hx Reported Additional Psychological History / Comment(s): He uses a cane to ambulate. He does not drive Smoking Status: Former smoker Past Alcohol Use History: None Reported Additional Past Alcohol Use History / Comment(s): Pt started amoking in 1973 and quit in 1985 Past Drug Use History: None Reported - Past Family History Father Family Medical History: No Reported History Additional Family Medical History / Comment(s): Father had back problems. He lived to be 82 yrs old. Mother History Unknown: Yes Family Medical History: Hypertension, Myocardial Infarction ([place]) Additional Family Medical History / Comment(s): Mother of a [place] at the age of 55yrs. Brother(s) Family Medical History: Cancer, COPD Additional Family Medical History / Comment(s): Leukemia Medications and Allergies Home Medications Medication Instructions Recorded Confirmed Type tiZANidine [Zanaflex] 4 mg PO TID 02/26/18 10/27/23 History oxyCODONE-APAP 10-325MG [Percocet 1 tab PO Q6H PRN 01/02/20 10/27/23 History 10-325 mg] Aspirin EC [Ecotrin Low Dose] 81 mg PO DAILY 04/23/23 10/27/23 History Escitalopram [Lexapro] 10 mg PO DAILY 04/23/23 10/27/23 History Folic Acid 1 mg PO DAILY 04/23/23 10/27/23 History Pantoprazole Sodium [Protonix] 40 mg PO DAILY 04/23/23 10/27/23 History amLODIPine [Norvasc] 10 mg PO DAILY #30 tab 04/26/23 10/27/23 Rx Atorvastatin [Lipitor] 80 mg PO HS 06/27/23 10/27/23 History Benzonatate [Tessalon Perle] 200 mg PO TID PRN 06/27/23 10/27/23 History Dicyclomine [Bentyl] 20 mg PO TID 06/27/23 10/27/23 History Ezetimibe [Zetia] 10 mg PO DAILY 06/27/23 10/27/23 History Gabapentin [Neurontin] 400 mg PO TID 06/27/23 10/27/23 History hydrALAZINE HCL [Apresoline] 100 mg PO TID 30 Days #180 tab 06/29/23 10/27/23 Rx methIMAzole [Tapazole] 5 mg PO TID #90 tablet 06/29/23 10/27/23 Rx Isosorbide Mononitrate ER [Imdur] 30 mg PO DAILY #30 tab 07/23/23 10/27/23 Rx Losartan-Hctz 50-12.5 mg [Hyzaar 1 each PO DAILY #30 tab 07/23/23 10/27/23 Rx 50-12.5] Metoprolol Tartrate [Lopressor] 100 mg PO BID #30 tab 07/23/23 10/27/23 Rx Nitroglycerin Sl Tabs [Nitrostat] 0.4 mg SUBLINGUAL Q5M PRN #30 tab 07/23/23 10/27/23 Rx cloNIDine HCL [Catapres] 0.2 mg PO BID #30 tab 07/23/23 10/27/23 Rx Naproxen 250 mg PO BID #30 tablet 09/14/23 10/27/23 Rx Morphine Sulfate ER [Ms Contin] 30 mg PO Q8H 10/22/23 10/27/23 History Allergies Allergy/AdvReac Type Severity Reaction Status Date / Time codeine Allergy Itching Verified 10/27/23 11:25 ibuprofen [From Motrin] Allergy Rash/Hives Verified 10/27/23 11:25 ketorolac tromethamine Allergy Rash/Hives Verified 10/27/23 11:25 [From Toradol] Physical Exam Vitals: Vital Signs Temp Pulse Pulse Resp BP BP Pulse Ox 10/27/23 19:57 98 F 101 H 20 152/88 97 10/27/23 17:30 103 H 19 144/88 97 10/27/23 17:15 122 H 19 161/98 97 10/27/23 17:00 117 H 19 174/101 98 10/27/23 16:45 102 H 18 191/101 100 10/27/23 16:30 90 18 190/97 100 10/27/23 16:15 89 18 192/97 100 10/27/23 16:00 97 18 190/98 100 10/27/23 15:47 97 F L 103 H 18 182/100 100 10/27/23 13:00 76 20 165/97 98 10/27/23 11:01 97.6 F 84 18 192/98 97 Intake and Output 10/27/23 10/27/23 10/27/23 06:59 14:59 22:59 Intake Total 951 100 Output Total 50 Balance 901 100 Intake: IV 951 100 Output: Estimated Blood Loss 50 Other: Voiding Method Urinal Weight 83.6 kg 83.6 kg
[2023-10-27] MEDS: oxyCODONE-APAP 10-325MG 1 EACH TAB PO PRN (23:18)
[2023-10-27] MEDS: hydrOXYzine pamoate 25 MG CAP PO PRN (23:18)
[2023-10-28] MEDS: HYDROmorphone 0.5 MG/0.5 ML SYRINGE IVP PRN ×3 (00:31→06:49)
[2023-10-28] MEDS: hydrOXYzine pamoate 25 MG CAP PO PRN ×3 (03:01→14:37)
[2023-10-28] MEDS: oxyCODONE-APAP 10-325MG 1 EACH TAB PO PRN ×2 (03:02→09:08)
[2023-10-28] MEDS: tiZANidine 4 MG TAB PO PRN (03:37)
[2023-10-28] MEDS: LACTATED RINGERS 1,000 ML IV SCH (06:07)
[2023-10-28] MEDS: ASPIRIN 81 MG PO SCH (09:08)
[2023-10-28] MEDS: GABAPENTIN 400 MG CAP PO SCH ×4 (09:08→22:10)
[2023-10-28] MEDS: DICYCLOMINE 20 MG TAB PO SCH ×3 (09:09→22:10)
[2023-10-28] MEDS: FOLIC ACID 1 MG TAB PO SCH (09:09)
[2023-10-28] MEDS: cloNIDine HCL 0.2 MG TAB PO SCH ×2 (09:09→22:11)
[2023-10-28] MEDS: METOPROLOL TARTRATE 50 MG TAB PO SCH ×2 (09:09→22:10)
[2023-10-28] MEDS: amLODIPine 10 MG TAB PO SCH (09:09)
[2023-10-28] MEDS: EZETIMIBE 10 MG TAB PO SCH (09:09)
[2023-10-28] MEDS: hydrALAZINE HCL 50 MG TAB PO SCH ×3 (09:09→23:17)
[2023-10-28] MEDS: ISOSORBIDE MONONITRATE ER 30 MG TAB.ER.24H PO SCH (09:09)
[2023-10-28] MEDS: RIVAROXABAN 10 MG TAB PO SCH (09:09)
[2023-10-28] MEDS: tiZANidine 4 MG TAB PO SCH ×3 (09:10→23:16)
[2023-10-28] MEDS: LOSARTAN-HCTZ 50-12.5 MG 1 EACH TAB PO SCH (09:10)
[2023-10-28] MEDS: methIMAzole 5 MG TAB PO SCH ×3 (09:11→23:16)
[2023-10-28] MEDS: ESCITALOPRAM 10 MG TAB PO SCH (09:12)
[2023-10-28] MEDS: HYDROmorphone 1 MG/ML 1 ML SYRINGE IVP PRN ×2 (10:17→14:32)
[2023-10-28 11:26] LABS: Basophils % (A) 1 %; Eosinophils # (A) 0.1 k/uL (0-0.7); Eosinophils % (A) 1 %; HCT 32.9 % (39.0-53.0); Lymphocytes # (A) 0.9 k/uL (1.0-4.8); Lymphocytes % (A) 13 %; MCH 30.5 pg (25.0-35.0); MCHC 33.3 g/dL (31.0-37.0); MCV 91.6 fL (80.0-100.0); Mean Platelet Volume 8.3; Monocytes # (A) 0.3 k/uL (0-1.0); Monocytes % (A) 4 %; Neutrophils # (A) 5.3 k/uL (1.3-7.7); Neutrophils % (A) 80 %; Platelet Count 294 k/uL (150-450); RBC 3.59 m/uL (4.30-5.90); RDW 14.1 % (11.5-15.5); WBC 6.6 k/uL (3.8-10.6)
--- NOTE | 2023-10-28 14:01 | P.PN ---
Subjective Progress Note Date: 10/28/23 Principal diagnosis: Left knee osteoarthritis Patient was seen at bedside this morning lying semirecumbent position with ice over left knee and dressing present. Patient says he has been in an extreme amount of pain surgery yesterday. Patient says after he had cervical fusion s urgery performed he did take oxy 20 mg. patient feels that Percocet 10mg/325 mg is not touching the pain in his knee. Patient says he is hoping to go to rehab upon discharge from hospital. Patient says he has urinated since surgery. Patient denies chest pain, fever, shortness breath, nausea, vomiting, change in vision, loss of bowel/bladder control. Objective - Vital Signs Vital signs: Vital Signs Temp 97.7 F 10/28/23 07:07 Pulse 104 H 10/28/23 07:07 Resp 18 10/28/23 07:07 BP 110/52 10/28/23 07:07 Pulse Ox 92 L 10/28/23 07:07 FiO2 Intake & Output 10/27/23 10/28/23 10/28/23 18:59 06:59 18:59 Intake Total 1051 Output Total 50 650 Balance 1001 -650 Weight 83.6 kg Intake: IV 1051 Output: Urine 650 Estimated Blood Loss 50 Other: Voiding Method Urinal Urinal - Exam Left knee: Incision is clean, dry, and intact. The exofin fusion tape is in good condition. There is minimal soft tissue swelling and ecchymosis surrounding the medial and lateral aspects of the incision. Calf is soft, no tenderness with palpation. Plantar flexion, dorsiflexion, EHL, FHL are intact. Sensory exam to light touch throughout the extremity is intact, dorsal pedis pulses 2+. - Labs CBC & Chem 7: 10/28/23 10:45 Labs: Abnormal Lab Results - Last 24 Hours (Table) 10/28/23 Range/Units 10:45 RBC 3.59 L (4.30-5.90) m/uL Hgb 11.0 L (13.0-17.5) gm/dL Hct 32.9 L (39.0-53.0) % Lymphocytes # 0.9 L (1.0-4.8) k/uL Assessment and Plan Assessment: 1. Left knee osteoarthritis - Postop day 1 status post left total knee arthroplasty Plan: 1. Left knee osteoarthritis - left total knee arthroplasty performed yesterday, 10/27/2023. Patient at bedside this morning in a lot of pain. Patient currently on Percocet 10 mg/325 mg every 4 hours. Oxy 20 mg q6h ordered for pain. Pain management consulted for other possible recommendations. We will continue follow patient during his stay in hospital. Plan to discharge to rehab tomorrow versus Thursday. 2. Appreciate medical and pain management 3. Pain management - Oxy 20 mg q6h 4. GI prophylaxis - senna 5. DVT prophylaxis - Xarelto 6. PT/OT - weightbearing as tolerated with walker and assistance 7. Encourage incentive spirometer use 8. Discharge planning - Plan to discharge to rehab tomorrow versus Thursday. Time with Patient: Less than 30
--- NOTE | 2023-10-28 14:12 | P.PN ---
Progress Note - Text Progress Note Date: 10/28/23 patient was seen and evaluated at bedside. Status post postoperative day 1 for left-sided total knee arthroplasty patient had adductor canal catheter for postop pain control. Patient rated pain at rest 5 out of 10 in severity. Patient describes pain is aching, throbbing type on the sides of the knee and back of the knee. Patient started walking with support. With activity patient pain levels are 8 out of 10 in severity. With the help of oral pain medications pain levels are tolerable. Patient denied any weakness/ numbness in lower extremities. patient denied any fever, pain over the catheter site. Physical exam: Patient vital signs stable Patient is alert awake oriented 3 responding to all questions appropriately Examination of the catheter site showed dressing intact, no leaking fluid around the catheter, no redness, no tenderness over the catheter insertion area. plan: status post postoperative day 1 for left side total knee arthroplasty with adductor canal catheter for pain control. Patient was discussed to continue the medication until the pump is completely empty and instructed the patient how to discontinue the catheter.
--- NOTE | 2023-10-28 15:19 | P.PN ---
Subjective Progress Note Date: 10/28/23 (delayed charting seen at 1030) Patient is a 67 M with COPD, CAD status post stents, hypertension, history of DVT not on anticoagulation, hyperlipidemia, and multiple other comorbid condi tions who was admitted to the hospital for an elective left knee replacement. Patient seen and examined at bedside. He is having significant pain in his knee. He deneis any chest pain or shortness of breath. Vital signs reviewed General: nontoxic, mild distress due to pain, appears at stated age Cardiovascular: S1S2 reg, no murmur, positive posterior tibial pulse bilateral, Lungs: CTA bilateral, no rhonchi, no rales , no accessory muscle use Psych: Alert, oriented, appropriate affect Assessment/Plan: 67-year-old male status post left total knee arthroplasty Acute blood loss anemia, anticipated outcome of surgery -No indication for transfusion at this time. -Repeat CBC in a.m. Hypertension Dyslipidemia COPD without exacerbation Hypothyroidism -Hydralazine 100 mg 3 times daily, Catapres 0.2 mg twice daily, Norvasc 10 mg daily, Lopressor 100 mg twice daily, losartan hydrochlorothiazide 50/12.5 mg daily, Imdur 30 mg daily -Zetia 10 mg daily, Lipitor 80 mg daily -Protonix 40 mg daily -Not on chronic inhalers. Add albuterol 2.5 mg inhalation every 4 hours as needed Chronic pain -Continue with gabapentin 400 mg 3 times daily -Pain management has been consulted - resume home morphine 30 mg TID - ortho has increased to Oxy IR 20 mg PO q 6 hr Imaging: None new Data Review: I reviewed from today includes CBC which is remarkable for hemoglobin of 11 DVT prophylaxis: Vicente Thank you for allowing us to participate in the care of this pleasant patient. Do not hesitate to contact us with questions. Someone can be reached from the [facility] hospitalist group all hours of the day at [phone] or via [employer]. This dictation was prepared using [employer] voice recognition software. Though every attempt is made to correct errors during dictation some may still exist. Objective - Vital Signs Vital signs: Vital Signs Temp 97.9 F 10/28/23 13:07 Pulse 84 10/28/23 13:07 Resp 18 10/28/23 13:07 BP 94/55 10/28/23 13:07 Pulse Ox 96 10/28/23 13:07 FiO2 Intake & Output 10/27/23 10/28/23 10/28/23 18:59 06:59 18:59 Intake Total 1051 Output Total 50 650 Balance 1001 -650 Weight 83.6 kg Intake: IV 1051 Output: Urine 650 Estimated Blood Loss 50 Other: Voiding Method Urinal Urinal - Labs CBC & Chem 7: 10/28/23 10:45 Labs: Abnormal Lab Results - Last 24 Hours (Table) 10/28/23 Range/Units 10:45 RBC 3.59 L (4.30-5.90) m/uL Hgb 11.0 L (13.0-17.5) gm/dL Hct 32.9 L (39.0-53.0) % Lymphocytes # 0.9 L (1.0-4.8) k/uL
[2023-10-28] MEDS: MORPHINE SULFATE ER 30 MG TABLET PO SCH ×2 (17:53→23:16)
[2023-10-28] MEDS: SENNOSIDES-DOCUSATE SODIUM 1 EACH TAB PO SCH (22:09)
[2023-10-28] MEDS: ATORVASTATIN 80 MG TAB PO SCH (22:10)
[2023-10-29] MEDS: HYDROmorphone 1 MG/ML 1 ML SYRINGE IVP PRN ×2 (02:13→05:43)
[2023-10-29] MEDS: LACTATED RINGERS 1,000 ML IV SCH (06:54)
[2023-10-29] MEDS: MORPHINE SULFATE ER 30 MG TABLET PO SCH ×3 (07:52→23:59)
[2023-10-29] MEDS: amLODIPine 10 MG TAB PO SCH (07:53)
[2023-10-29] MEDS: METOPROLOL TARTRATE 50 MG TAB PO SCH ×2 (07:53→20:25)
[2023-10-29] MEDS: DICYCLOMINE 20 MG TAB PO SCH ×3 (07:53→21:59)
[2023-10-29] MEDS: ASPIRIN 81 MG PO SCH (07:53)
[2023-10-29] MEDS: GABAPENTIN 400 MG CAP PO SCH ×3 (07:53→21:59)
[2023-10-29] MEDS: cloNIDine HCL 0.2 MG TAB PO SCH ×2 (07:53→21:27)
[2023-10-29] MEDS: hydrALAZINE HCL 50 MG TAB PO SCH ×3 (07:53→22:00)
[2023-10-29] MEDS: FOLIC ACID 1 MG TAB PO SCH (07:53)
[2023-10-29] MEDS: ISOSORBIDE MONONITRATE ER 30 MG TAB.ER.24H PO SCH (07:53)
[2023-10-29] MEDS: RIVAROXABAN 10 MG TAB PO SCH (07:53)
[2023-10-29] MEDS: EZETIMIBE 10 MG TAB PO SCH (07:53)
[2023-10-29] MEDS: tiZANidine 4 MG TAB PO SCH ×3 (07:54→21:59)
[2023-10-29] MEDS: LOSARTAN-HCTZ 50-12.5 MG 1 EACH TAB PO SCH (07:54)
[2023-10-29] MEDS: ESCITALOPRAM 10 MG TAB PO SCH (07:54)
[2023-10-29] MEDS: methIMAzole 5 MG TAB PO SCH ×3 (07:54→21:59)
[2023-10-29 08:58] LABS: HCT 30.4 % (39.0-53.0); HGB 10.1 gm/dL (13.0-17.5); MCH 30.4 pg (25.0-35.0); MCHC 33.3 g/dL (31.0-37.0); MCV 91.2 fL (80.0-100.0); Platelet Count 222 k/uL (150-450); RBC 3.33 m/uL (4.30-5.90); RDW 14.4 % (11.5-15.5); WBC 7.4 k/uL (3.8-10.6)
[2023-10-29 09:13] LABS: African American GFR (CKD) 84 (>60 ml/min/1.73 sqM); Anion Gap 10 mmol/L; Blood Urea Nitrogen 18 mg/dL (9-20); Calcium 8.8 mg/dL (8.4-10.2); Carbon Dioxide 24 mmol/L (22-30); Chloride 99 mmol/L (98-107); Glucose 156 mg/dL (74-99); Non-African American GFR(CKD) 73 (>60 ml/min/1.73 sqM); Potassium 4.1 mmol/L (3.5-5.1); Sodium 133 mmol/L (137-145)
--- NOTE | 2023-10-29 10:46 | P.PN ---
Subjective Progress Note Date: 10/29/23 Principal diagnosis: Left knee osteoarthritis Patient was seen at bedside this morning sitting up in chair with ice over his left knee. Patient says he is still in a lot of pain, however, he is doing a little bit better than he was yesterday in regards to pain. Patient says he did get up with therapy this morning and got to chair. Patient is looking forward going to rehab later today. Patient says he has been passing gas, however, patient says he has not had bowel movement yet. Patient says he has urinated daily since surgery. Patient denies any other issues at this time. Patient denies chest pain, fever, shortness of breath, nausea, vomiting, change in vision, loss of bowel/bladder control. Objective - Vital Signs Vital signs: Vital Signs Temp 98.3 F 10/29/23 07:19 Pulse 93 10/29/23 07:19 Resp 18 10/29/23 07:19 BP 138/72 10/29/23 07:19 Pulse Ox 96 10/29/23 07:19 FiO2 Intake & Output 10/28/23 10/29/23 10/29/23 18:59 06:59 18:59 Output Total 400 Balance -400 Output: Urine 400 Other: Voiding Method Urinal Urinal - Exam Left knee: Incision is clean, dry, and intact. The exofin fusion tape is in good condition. There is minimal soft tissue swelling and ecchymosis surrounding the medial and lateral aspects of the incision. Calf is soft, no tenderness with palpation. Plantar flexion, dorsiflexion, EHL, FHL are intact. Sensory exam to light touch throughout the extremity is intact, dorsal pedis pulses 2+. - Labs CBC & Chem 7: 10/29/23 08:36 10/29/23 08:36 Labs: Abnormal Lab Results - Last 24 Hours (Table) 10/28/23 10/29/23 10/29/23 Range/Units 10:45 08:36 08:36 RBC 3.59 L 3.33 L (4.30-5.90) m/uL Hgb 11.0 L 10.1 L (13.0-17.5) gm/dL Hct 32.9 L 30.4 L (39.0-53.0) % Lymphocytes # 0.9 L (1.0-4.8) k/uL Sodium 133 L (137-145) mmol/L Glucose 156 H (74-99) mg/dL Assessment and Plan Assessment: 1. Left knee osteoarthritis - Postop day 2 status post left total knee arthroplasty Plan: 1. Left knee osteoarthritis - left total knee arthroplasty performed 10/27/2023. Patient at bedside this morning sitting up in chair. Patient currently on Oxy 20 mg q6h for pain. Patient did get up to the chair with therapy today. Discharge to rehab today. 2. Appreciate medical and pain management 3. Pain management - Oxy 20 mg q6h; gabapentin 4. GI prophylaxis - senna 5. DVT prophylaxis - Xarelto; to rehab with eliquis 2.5 mg twice a day 2 weeks 6. PT/OT - weightbearing as tolerated with walker and assistance 7. Encourage incentive spirometer use 8. Discharge planning - discharge to rehab today Time with Patient: Less than 30
--- NOTE | 2023-10-29 10:57 | P.DS ---
Providers Date of admission: 10/28/23 13:21 Expected date of discharge: 10/29/23 Attending physician: Nelson Vance Consults: 10/27/23 15:34 Consult Physician Routine Consulting Provider: Lucia Bailey Consult Reason/Comments: Medical Management s/p left total knee arthroplasty Do you want consulting provider notified?: Yes Primary care physician: Stated None Hospital Course: Date of admission: 10/27/2023 Date of discharge: 10/29/2023 Admission diagnosis: Left knee osteoarthritis Discharge diagnosis: Same Attending physician: Dr. Vance Surgical procedures: Left total knee arthroplasty Brief history: Patient is a 67-year-old male with a history of progressive primary left knee osteoarthritis. At this point patient has failed conservative treatment measures and has opted to proceed with a elective left total knee arthroplasty. Hospital course: Details of patient's surgery can be found in operative report. Patient tolerated the procedure well and was subsequently transported to orthopedic floor. Patient's orthopeidc and medical care was provided daily. Patient had daily laboratory tests performed for evaluation of overall blood counts. Patient had daily physical therapy to include strengthening range of motion as well as education with walker ambulation. Patient was treated with Xarelto for their postoperative DVT prophylaxis during their inpatient stay. Patient was noted to have a relatively uneventful postoperative course. Patient reported satisfactory pain control with oral pain medications by postoperative day 2. Patient showed satisfactory progress with physical therapy. Patient moved steadily through the program and had no difficulty meeting the goals by postoperative day 2. Given patient's otherwise satisfactory course and having met physical therapy goals, plan is to discharge patient to rehab on postoperative day 2. Discharge condition/disposition: Patient will be discharged to rehab in stable condition. Discharge medications: Instructions are given on resumption of patient's normal daily medications per primary care recommendation, in addition patient will be prescribed senna; Eliquis 2.5 mg twice a day 2 weeks; Oxy 20 mg every 6 hours; gabapentin 400 mg 3 times a day Discharge instructions: 1. Wound care and infection precautions, keep incision dry and covered while showering, no lotions, creams, moisturizers. No soaking, tubs, pools, hottubs. Do not scrub over the incision. 2. Weight-bear as tolerated with walker / cane until follow-up. 3. Ice and elevate when necessary. Do not exceed 20 minutes per hour with ice pack. 4. Utilize compression sleeve until seen at first follow up appointment. 5. Visiting nursing care. 6. Home physical therapy 7. Pain meds and anticoagulants per prescription. 8. Pain medication has potential to cause constipation. Increase oral fluid and fiber intake. Contact primary care provider if you have not had a bowel movement within 48 hours after discharge 9. No anti-inflammatory medication until discussed at first post operative visit, this including Motrin, Aleve, Mobic, Diclofenac. 10. Follow up in office at 2 weeks postop with Al Anders PA-C / Robert Lomeli PA-C 11. Follow up with your primary care doctor 7-10 days after discharge. 12. Contact [facility] with any questions, . Keep incision clean, dry, intact. While showering, cover fusion tape was Saran wrap. Keep fusion tape on until follow up appointment in office at 2 weeks. Assessment: Left knee osteoarthritis Procedures: Left total knee arthroplasty Patient Condition at Discharge: Good Plan - Discharge Summary Discharge Rx Participant: Yes New Discharge Prescriptions: No Action tiZANidine [Zanaflex] 4 mg PO TID oxyCODONE-APAP 10-325MG [Percocet 10-325 mg] 1 tab PO Q6H PRN PRN Reason: Pain Folic Acid 1 mg PO DAILY Pantoprazole Sodium [Protonix] 40 mg PO DAILY Gabapentin [Neurontin] 400 mg PO TID Ezetimibe [Zetia] 10 mg PO DAILY Atorvastatin [Lipitor] 80 mg PO HS Dicyclomine [Bentyl] 20 mg PO TID methIMAzole [Tapazole] 5 mg PO TID #90 tablet cloNIDine HCL [Catapres] 0.2 mg PO BID #30 tab Losartan-Hctz 50-12.5 mg [Hyzaar 50-12.5] 1 each PO DAILY #30 tab Isosorbide Mononitrate ER [Imdur] 30 mg PO DAILY #30 tab Metoprolol Tartrate [Lopressor] 100 mg PO BID #30 tab Escitalopram [Lexapro] 10 mg PO DAILY Aspirin EC [Ecotrin Low Dose] 81 mg PO DAILY amLODIPine [Norvasc] 10 mg PO DAILY #30 tab Benzonatate [Tessalon Perle] 200 mg PO TID PRN PRN Reason: Cough hydrALAZINE HCL [Apresoline] 100 mg PO TID 30 Days #180 tab Nitroglycerin Sl Tabs [Nitrostat] 0.4 mg SUBLINGUAL Q5M PRN #30 tab PRN Reason: Chest Pain Naproxen 250 mg PO BID #30 tablet Morphine Sulfate ER [Ms Contin] 30 mg PO Q8H Discharge Medication List tiZANidine [Zanaflex] 4 mg PO TID 02/26/18 [History] oxyCODONE-APAP 10-325MG [Percocet 10-325 mg] 1 tab PO Q6H PRN 01/02/20 [History] Aspirin EC [Ecotrin Low Dose] 81 mg PO DAILY 04/23/23 [History] Escitalopram [Lexapro] 10 mg PO DAILY 04/23/23 [History] Folic Acid 1 mg PO DAILY 04/23/23 [History] Pantoprazole Sodium [Protonix] 40 mg PO DAILY 04/23/23 [History] amLODIPine [Norvasc] 10 mg PO DAILY #30 tab 04/26/23 [Rx] Atorvastatin [Lipitor] 80 mg PO HS 06/27/23 [History] Benzonatate [Tessalon Perle] 200 mg PO TID PRN 06/27/23 [History] Dicyclomine [Bentyl] 20 mg PO TID 06/27/23 [History] Ezetimibe [Zetia] 10 mg PO DAILY 06/27/23 [History] Gabapentin [Neurontin] 400 mg PO TID 06/27/23 [History] hydrALAZINE HCL [Apresoline] 100 mg PO TID 30 Days #180 tab 06/29/23 [Rx] methIMAzole [Tapazole] 5 mg PO TID #90 tablet 06/29/23 [Rx] Isosorbide Mononitrate ER [Imdur] 30 mg PO DAILY #30 tab 07/23/23 [Rx] Losartan-Hctz 50-12.5 mg [Hyzaar 50-12.5] 1 each PO DAILY #30 tab 07/23/23 [Rx] Metoprolol Tartrate [Lopressor] 100 mg PO BID #30 tab 07/23/23 [Rx] Nitroglycerin Sl Tabs [Nitrostat] 0.4 mg SUBLINGUAL Q5M PRN #30 tab 07/23/23 [Rx] cloNIDine HCL [Catapres] 0.2 mg PO BID #30 tab 07/23/23 [Rx] Naproxen 250 mg PO BID #30 tablet 09/14/23 [Rx] Morphine Sulfate ER [Ms Contin] 30 mg PO Q8H 10/22/23 [History] Follow up Appointment(s)/Referral(s): Robert Lomeli PAC [PHYSICIAN ELECTRIC FURNACE OPERATOR] - 2 Weeks [facility] [place], [NON-STAFF] - As Needed Patient Instructions/Handouts: Knee Replacement (DC), Knee Replacement (GEN) Activity/Diet/Wound Care/Special Instructions: Orthopedic Discharge Instructions: 1. Wound care and infection precautions, keep incision dry and covered while showering, no lotions, creams, moisturizers. No soaking, pools, hot tubs. Do not scrub over incision. 2. Weight-bear as tolerated with walker / cane until follow-up. 3. Ice and elevate when necessary. Do not exceed 20 minutes per hour with ice pack. 4. Utilize compression sleeve until seen at first follow up appointment. 5. Pain meds and anticoagulants per prescription. 6. Pain medication has potential to cause constipation. Increase oral fluid and fiber intake. Contact primary care provider if you have not had a bowel movement within 48 hours after discharge. 7. No anti-inflammatory medication until discussed at first post operative visit, this including Motrin, Aleve, Mobic, Diclofenac. 8. Follow up in office at 2 weeks postop with Al Anders PA-C / Robert Lomeli PA-C 9. Follow up with your primary care doctor 7-10 days after discharge. 10. Contact [facility] with any questions, . Keep incision clean, dry, intact. While showering, cover fusion tape with Saran wrap. Keep fusion tape on until follow-up appointment in office in 2 weeks. Discharge Disposition: TRANSFER TO SNF/ECF
--- NOTE | 2023-10-29 12:09 | P.PN ---
Subjective Progress Note Date: 10/29/23 No new complaints. ongoing complaints of pain control - better controlled than yesterday per patient. Gen: awake, alert HEENT: normocephalic, atraumatic, good hearing acuity, moist mucous membranes Resp: good air exchange, breathing comfortably with no accessory muscle use CVS: good distal perfusion x 4, GI: soft, NTTP, ND : no SPT, no CVAT, hobbs catheter not present MSK: no pitting edema, no clubbing Neuro: non-focal, moving all extremities Psych: cooperative, euthymic mood Hospital course: Patient is a 67 M with COPD, CAD status post stents, hypertension, history of DVT not on anticoagulation, hyperlipidemia, and multiple other comorbid conditions who was admitted to the hospital for an elective left knee replacement. Assessment/Plan: 67-year-old male status post left total knee arthroplasty Acute blood loss anemia, anticipated outcome of surgery -No indication for transfusion at this time. -Repeat CBC in a.m. Hypertension Dyslipidemia COPD without exacerbation Hypothyroidism -Hydralazine 100 mg 3 times daily, Catapres 0.2 mg twice daily, Norvasc 10 mg daily, Lopressor 100 mg twice daily, losartan hydrochlorothiazide 50/12.5 mg daily, Imdur 30 mg daily -Zetia 10 mg daily, Lipitor 80 mg daily -Protonix 40 mg daily -Not on chronic inhalers. Add albuterol 2.5 mg inhalation every 4 hours as needed Chronic pain -Continue with gabapentin 400 mg 3 times daily -Pain management has been consulted - resume home morphine 30 mg TID - ortho has increased to Oxy IR 20 mg PO q 6 hr Imaging: None new Data Review: I reviewed from today includes CBC which is remarkable for hemoglobin of 11 DVT prophylaxis: Xarelto Patient is medically cleared for discharge at this time. Objective - Vital Signs Vital signs: Vital Signs Temp 98.3 F 10/29/23 07:19 Pulse 93 10/29/23 07:19 Resp 18 10/29/23 07:19 BP 138/72 10/29/23 07:19 Pulse Ox 96 10/29/23 07:19 FiO2 Intake & Output 10/28/23 10/29/23 10/29/23 18:59 06:59 18:59 Output Total 400 Balance -400 Output: Urine 400 Other: Voiding Method Urinal Urinal - Labs CBC & Chem 7: 10/29/23 08:36 10/29/23 08:36 Labs: Abnormal Lab Results - Last 24 Hours (Table) 10/29/23 10/29/23 Range/Units 08:36 08:36 RBC 3.33 L (4.30-5.90) m/uL Hgb 10.1 L (13.0-17.5) gm/dL Hct 30.4 L (39.0-53.0) % Sodium 133 L (137-145) mmol/L Glucose 156 H (74-99) mg/dL
[2023-10-29] MEDS: ATORVASTATIN 80 MG TAB PO SCH (20:25)
[2023-10-29] MEDS: SENNOSIDES-DOCUSATE SODIUM 1 EACH TAB PO SCH (20:25)
[2023-10-30] MEDS: LACTATED RINGERS 1,000 ML IV SCH (06:08)
[2023-10-30] MEDS: ASPIRIN 81 MG PO SCH (07:57)
[2023-10-30] MEDS: tiZANidine 4 MG TAB PO SCH (07:57)
[2023-10-30] MEDS: EZETIMIBE 10 MG TAB PO SCH (07:57)
[2023-10-30] MEDS: MORPHINE SULFATE ER 30 MG TABLET PO SCH (07:58)
[2023-10-30] MEDS: DICYCLOMINE 20 MG TAB PO SCH (07:58)
[2023-10-30] MEDS: FOLIC ACID 1 MG TAB PO SCH (07:59)
[2023-10-30] MEDS: ESCITALOPRAM 10 MG TAB PO SCH (07:59)
[2023-10-30] MEDS: METOPROLOL TARTRATE 50 MG TAB PO SCH (07:59)
[2023-10-30] MEDS: methIMAzole 5 MG TAB PO SCH (07:59)
[2023-10-30] MEDS: cloNIDine HCL 0.2 MG TAB PO SCH (07:59)
[2023-10-30] MEDS: GABAPENTIN 400 MG CAP PO SCH (07:59)
[2023-10-30] MEDS: ISOSORBIDE MONONITRATE ER 30 MG TAB.ER.24H PO SCH (08:00)
[2023-10-30] MEDS: amLODIPine 10 MG TAB PO SCH (08:00)
[2023-10-30] MEDS: RIVAROXABAN 10 MG TAB PO SCH (08:00)
[2023-10-30 08:30] LABS: HCT 30.8 % (39.0-53.0); HGB 10.4 gm/dL (13.0-17.5); MCH 30.6 pg (25.0-35.0); MCHC 33.9 g/dL (31.0-37.0); MCV 90.3 fL (80.0-100.0); Platelet Count 210 k/uL (150-450); RBC 3.41 m/uL (4.30-5.90); RDW 13.8 % (11.5-15.5); WBC 7.3 k/uL (3.8-10.6)
[2023-10-30 08:31] VITALS: BP 176/93; PULSE 109; RESP 17; TEMP 99
[2023-10-30 09:54] LABS: Band Neutrophils % 1 %; Basophils # (M) 0.07 k/uL (0-0.2); Eosinophils # (M) 0.07 k/uL (0-0.7); Lymphocytes # (M) 1.02 k/uL (1.0-4.8); Monocytes # (M) 0.51 k/uL (0-1.0); Neutrophils % (M) 76 %; Nucleated Red Blood Cells 0 /100 WBC (0-0); RBC Morphology Normal; Total Cells Counted 100
[2023-10-30] MEDS: hydrALAZINE HCL 50 MG TAB PO SCH (11:59)
[2023-10-30] MEDS: LOSARTAN-HCTZ 50-12.5 MG 1 EACH TAB PO SCH (12:00)
== END 2023-10-30 13:35 ==
LOC: OR 06:28 → 4SSUR 15:18 → OR 10-28 13:21 → 4SSUR 10-28 13:21
PROVIDERS: ADMIT Orthopaedic Surgery; ATTEND Orthopaedic Surgery
DX: M17.12 Unilateral primary osteoarthritis, left knee (principal); I10 Essential (primary) hypertension; I25.10 Atherosclerotic heart disease of native coronary artery without angina pectoris; J44.9 Chronic obstructive pulmonary disease, unspecified; E78.5 Hyperlipidemia, unspecified; K21.9 Gastro-esophageal reflux disease without esophagitis; G43.909 Migraine, unspecified, not intractable, without status migrainosus; E05.90 Thyrotoxicosis, unspecified without thyrotoxic crisis or storm; K57.90 Diverticulosis of intestine, part unspecified, without perforation or abscess without bleeding; K44.9 Diaphragmatic hernia without obstruction or gangrene; G89.4 Chronic pain syndrome; M54.50 Low back pain, unspecified; Z79.82 Long term (current) use of aspirin; Z79.899 Other long term (current) drug therapy; Z88.5 Allergy status to narcotic agent; Z88.6 Allergy status to analgesic agent; Z87.11 Personal history of peptic ulcer disease; Z86.718 Personal history of other venous thrombosis and embolism; Z87.19 Personal history of other diseases of the digestive system; Z90.49 Acquired absence of other specified parts of digestive tract; Z95.5 Presence of coronary angioplasty implant and graft; Z98.1 Arthrodesis status; Z98.41 Cataract extraction status, right eye; Z86.19 Personal history of other infectious and parasitic diseases; Z87.828 Personal history of other (healed) physical injury and trauma; Z87.891 Personal history of nicotine dependence; Z86.74 Personal history of sudden cardiac arrest; Z98.890 Other specified postprocedural states; Z82.49 Family history of ischemic heart disease and other diseases of the circulatory system; Z80.6 Family history of leukemia; Z82.5 Family history of asthma and other chronic lower respiratory diseases
CPT/HCPCS: 97530 ×2; 97162; 97166; 64999; 64448; 80048; 85025 ×2; 85027; 85610; 73560; 71045; 36556; 27447; G0378 ×3; C1713 ×2; C1776; C1751; J2250; J0330; J0360; J1100; J2710; J0690 ×3; J2405; J2001; J3010; J1170 ×6; J2795; J2704; J1920; J1805

== ENCOUNTER 2023-11-18 13:30 | Emergency (ER) | payer MEDICARE, OTHER ==
--- NOTE | 2023-11-18 13:37 | ED ---
General Adult HPI - General Source: patient, RN notes reviewed Mode of arrival: ambulatory Limitations: no limitations <Shahbaz Mcdaniel - Last Filed: 11/18/23 13:36> - General Source: RN notes reviewed, old records reviewed Mode of arrival: ambulatory Limitations: no limitations - History of Present Illness -: days(s) Location: left, lower extremity Severity scale (1-10): 10 Quality: aching Consistency: constant Improves with: none Worsens with: none Associated Symptoms: denies other symptoms <Haresh Arellano - Last Filed: 11/26/23 01:58> - General Stated complaint: L Knee Pain Time Seen by Provider: 11/18/23 13:36 - History of Present Illness Initial comments: 68-year-old male presents emergency Department chief complaint left leg swelling, pain. Patient states he had knee replacement per Dr. Melvin at the beginning of October. Patient states there is pain, increasing swelling concern for a blood clot. (Shahbaz Mcdaniel) This is a 68-year-old male DF for evaluation of severe left lower extremity pain and swelling with recent left knee replacement elective (Haresh Arellano) - Related Data Home Medications Medication Instructions Recorded Confirmed tiZANidine [Zanaflex] 4 mg PO TID 02/26/18 10/27/23 oxyCODONE-APAP 10-325MG [Percocet 1 tab PO Q6H PRN 01/02/20 10/27/23 10-325 mg] Aspirin EC [Ecotrin Low Dose] 81 mg PO DAILY 04/23/23 10/27/23 Escitalopram [Lexapro] 10 mg PO DAILY 04/23/23 10/27/23 Folic Acid 1 mg PO DAILY 04/23/23 10/27/23 Pantoprazole Sodium [Protonix] 40 mg PO DAILY 04/23/23 10/27/23 Atorvastatin [Lipitor] 80 mg PO HS 06/27/23 10/27/23 Benzonatate [Tessalon Perle] 200 mg PO TID PRN 06/27/23 10/27/23 Dicyclomine [Bentyl] 20 mg PO TID 06/27/23 10/27/23 Ezetimibe [Zetia] 10 mg PO DAILY 06/27/23 10/27/23 Gabapentin [Neurontin] 400 mg PO TID 06/27/23 10/27/23 Morphine Sulfate ER [Ms Contin] 30 mg PO Q8H 10/22/23 10/27/23 Previous Rx's Medication Instructions Recorded amLODIPine [Norvasc] 10 mg PO DAILY #30 tab 04/26/23 hydrALAZINE HCL [Apresoline] 100 mg PO TID 30 Days #180 tab 06/29/23 methIMAzole [Tapazole] 5 mg PO TID #90 tablet 06/29/23 Isosorbide Mononitrate ER [Imdur] 30 mg PO DAILY #30 tab 07/23/23 Losartan-Hctz 50-12.5 mg [Hyzaar 1 each PO DAILY #30 tab 07/23/23 50-12.5] Metoprolol Tartrate [Lopressor] 100 mg PO BID #30 tab 07/23/23 Nitroglycerin Sl Tabs [Nitrostat] 0.4 mg SUBLINGUAL Q5M PRN #30 tab 07/23/23 cloNIDine HCL [Catapres] 0.2 mg PO BID #30 tab 07/23/23 Naproxen 250 mg PO BID #30 tablet 09/14/23 Apixaban [Eliquis] 2.5 mg PO BID #60 tab 10/29/23 Gabapentin [Neurontin] 400 mg PO TID #21 cap 10/29/23 Morphine Sulfate [Ms Contin] 30 mg PO Q8HR #12 tab 10/29/23 Sennosides/Docusate Sodium [Senna 1 each PO DAILY #20 capsule 10/29/23 Plus 8.6-50 mg Softgel] oxyCODONE HCL [oxyCODONE HCL (IR)] 20 mg PO Q6H #12 tab 10/29/23 Allergies Allergy/AdvReac Type Severity Reaction Status Date / Time codeine Allergy Itching Verified 11/18/23 14:57 ibuprofen [From Motrin] Allergy Rash/Hives Verified 11/18/23 14:57 ketorolac tromethamine Allergy Rash/Hives Verified 11/18/23 14:57 [From Toradol] Review of Systems ROS Other: All systems not noted in ROS Statement are negative. <Shahbaz Mcdaniel - Last Filed: 11/18/23 13:36> ROS Other: All systems not noted in ROS Statement are negative. <Haresh Arellano - Last Filed: 11/26/23 01:58> ROS Statement: Those systems with pertinent positive or pertinent negative responses have been documented in the HPI. Past Medical History Past Medical History: Coronary Artery Disease (CAD), Chest Pain / Angina, COPD, Deep Vein Thrombosis (DVT), GERD/Reflux, Hyperlipidemia, Hypertension, Osteoarthritis (OA), Thyroid Disorder Additional Past Medical History / Comment(s): Occasional palpitations, gastritis, small hiatal hernia, diverticular dx, pt states years ago he had PUD, chronic low back pain, chronic pain syndrome, migraines, DVT L arm, numbness/tingling bilateral lower legs, bilateral past R hand fracture, arthritis multiple joints, hyperthyroid, sinus problems. History of Any Multi-Drug Resistant Organisms: None Reported Past Surgical History: Back Surgery, Cholecystectomy, Heart Catheterization With Stent, Orthopedic Surgery Additional Past Surgical History / Comment(s): EGDs/colonoscopies, multiple low back surgeries, bilateral arm and bilateral thigh surgeries for brown recluse spider bites with infection, morphine pain pump insertion and removal due to infection, PCI with stents, L rotator cuff repair, L knee arthroscopy, cervical fusion/cage, R cataract removal. 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 states he was "down for 12 minutes" lower back surgery Date of Last Stent Placement:: 10/12/17 Past Psychological History: No Psychological Hx Reported Additional Psychological History / Comment(s): He uses a cane to ambulate. He does not drive Smoking Status: Former smoker Past Alcohol Use History: None Reported Additional Past Alcohol Use History / Comment(s): Pt started amoking in 1973 and quit in 1985 Past Drug Use History: None Reported - Past Family History Father Family Medical History: No Reported History Additional Family Medical History / Comment(s): Father had back problems. He lived to be 82 yrs old. Mother History Unknown: Yes Family Medical History: Hypertension, Myocardial Infarction (PA) Additional Family Medical History / Comment(s): Mother of a PA at the age of 55yrs. Brother(s) Family Medical History: Cancer, COPD Additional Family Medical History / Comment(s): Leukemia <Shahbaz Mcdaniel - Last Filed: 11/18/23 13:36> General Exam <Shahbaz Mcdaniel - Last Filed: 11/18/23 13:36> General appearance: alert, in no apparent distress Head exam: Present: atraumatic, normocephalic, normal inspection Eye exam: Present: normal appearance, PERRL, EOMI. Absent: scleral icterus, conjunctival injection, periorbital swelling ENT exam: Present: normal exam, mucous membranes moist Neck exam: Present: normal inspection. Absent: tenderness, meningismus, lymphadenopathy Respiratory exam: Present: normal lung sounds bilaterally. Absent: respiratory distress, wheezes, rales, rhonchi, stridor Cardiovascular Exam: Present: regular rate, normal rhythm, normal heart sounds. Absent: systolic murmur, diastolic murmur, rubs, gallop, clicks GI/Abdominal exam: Present: soft, normal bowel sounds. Absent: distended, tenderness, guarding, rebound, rigid Extremities exam: Present: tenderness, normal capillary refill, calf tenderness. Absent: full ROM, pedal edema, joint swelling Back exam: Present: normal inspection Neurological exam: Present: alert, oriented X3, CN II-XII intact Psychiatric exam: Present: normal affect, normal mood Skin exam: Present: warm, dry, intact, normal color. Absent: rash <Haresh Arellano - Last Filed: 11/26/23 01:58> - General Exam Comments Initial Comments: Visual Physical Exam Vital signs reviewed General: Well-appearing, nontoxic, no acute distress. Head: Normocephalic, atraumatic Eyes: PERRLA, EOMI ENT: Airway patent Chest: Nonlabored breathing Skin: No visual rash, normal skin tone Neuro: Alert and oriented 3 Musculoskeletal: No gross abnormalities (Shahbaz Mcdaniel) Course <Haresh Arellano - Last Filed: 11/26/23 01:58> Vital Signs 11/18/23 11/18/23 11/18/23 14:55 16:22 18:34 Temperature 98 F Pulse Rate 85 81 78 Respiratory 18 18 18 Rate Blood Pressure 153/96 157/88 179/91 O2 Sat by Pulse 96 95 95 Oximetry - Reevaluation(s) Reevaluation #1: Record is reviewed (Haresh Arellano) Reevaluation #2: Patient's pain is improved (Haresh Arellano) Reevaluation #3: Patient informed of results and questions answered (Haresh Arellano) Reevaluation #4: Was pt. sent in by a medical professional or institution ([facility]ITH Burns, DIRECTOR OF TEENAGE ACTIVITIES, urgent care, hospital, or penitentiary...) When possible be specific @ -no Did you speak to anyone other than the patient for history (EMS, parent, family, police, friend...)? What history was obtained from this source @ -no Did you review nursing and triage notes (agree or disagree)? Why? @ -agree Are old charts reviewed (outside hosp., previous admission, EMS record, old EKG, old radiological studies, urgent care reports/EKG's, penitentiary records)? Report findings @ -yes Differential Diagnosis (chest pain, altered mental status, abdominal pain women, abdominal pain men, vaginal bleeding, weakness, fever, dyspnea, syncope, headache, dizziness, GI bleed, back pain, seizure, CVA, palpatations, mental health, musculoskeletal)? @ -prior EKG interpreted by me (3pts min.). @ -no X-rays interpreted by me (1pt min.). @ -no CT interpreted by me (1pt min.). @ -no U/S interpreted by me (1pt. min.). @ -yes negative for DVT What testing was considered but not performed or refused? (CT, X-rays, U/S, labs)? Why? @ -none What meds were considered but not given or refused? Why? @ -none Did you discuss the management of the patient with other professionals (professionals i.e. [facility] Burns, DIRECTOR OF TEENAGE ACTIVITIES, lab, RT, psych nurse, social sciences department chair, criminal defense lawyer, teacher, staff combat information center officer, rn case management)? Give summary @ -no Was smoking cessation discussed for >3mins.? @ -no Was critical care preformed (if so, how long)? @ -no Were there social determinants of health that impacted care today? How? (Homelessness, low income, unemployed, alcoholism, drug addiction, transporta tion, low edu. Level, literacy, decrease access to med. care, correction, rehab)? @ -none Was there de-escalation of care discussed even if they declined (Discuss DNR or withdrawal of care, Hospice)? DNR status @ -no What co-morbidities impacted this encounter? (DM, HTN, Smoking, COPD, CAD, Cancer, CVA, ARF, Chemo, Hep., AIDS, mental health diagnosis, sleep apnea, morbid obesity)? @ -none Was patient admitted / discharged? Hospital course, mention meds given and route, prescriptions, significant lab abnormalities, going to OR and other pertinent info. @ - 68 male to the emergency department for evaluation of significant lower extremity edema and swelling secondary recent left knee replacement. Patient also negative for DVT and can be discharged home Discharge Undiagnosed new problem with uncertain prognosis? @ -no Drug Therapy requiring intensive monitoring for toxicity (Heparin, Nitro, Insulin, Cardizem)? @ -no Were any procedures done? @ -no Diagnosis/symptom? @ -Severe left lower extremity swelling postoperative swelling Acute, or Chronic, or Acute on Chronic? @ -Acute Uncomplicated (without systemic symptoms) or Complicated (systemic symptoms)? @ -Complicated Side effects of treatment? @ -no Exacerbation, Progression, or Severe Exacerbation? @ -exacerbation Poses a threat to life or bodily function? How? (Chest pain, USA, PA, pneumonia, PE, COPD, DKA, ARF, appy, cholecystitis, CVA, Diverticulitis, Homicidal, Suicidal, threat to staff... and all critical care pts) @ -yes with DVT leading to PE (Haresh Arellano) Medical Decision Making <Shahbaz Mcdaniel - Last Filed: 11/18/23 13:36> - Radiology Data Radiology results: report reviewed (Ultrasound left lower extremity negative for DVT), image reviewed <Haresh Arellano - Last Filed: 11/26/23 01:58> - Medical Decision Making I completed the quick note portion of this chart signed Shahbaz Mcdaniel PA-C (Shahbaz Mcdaniel) 68 male to the emergency department for evaluation of significant lower extremity edema and swelling secondary recent left knee replacement. Patient also negative for DVT and can be discharged home (Haresh Arellano) Disposition <Shahbaz Mcdaniel - Last Filed: 11/18/23 13:36> Is patient prescribed a controlled substance at d/c from ED?: No Time of Disposition: 17:10 <Haresh Arellano - Last Filed: 11/26/23 01:58> Clinical Impression: Postoperative edema, Leg edema, left, Extremity edema, Postoperative pain, Leg edema Disposition: HOME SELF-CARE Condition: Fair Instructions (If sedation given, give patient instructions): Leg Edema (ED), Knee Pain (ED), Swollen Joint (ED) Referrals: None,Stated [Primary Care Provider] - 1-2 days
[2023-11-18 15:09] VITALS: RESP 18; TEMP 98
--- NOTE | 2023-11-18 15:30 | US ---
EXAMINATION TYPE: US venous doppler duplex LE LT DATE OF EXAM: 11/18/2023 2:41 PM COMPARISON: 05/21/23 CLINICAL INDICATION: Male, 68 years old with history of pain; S/p left knee replacement; experiencing left leg pain and swelling SIDE PERFORMED: left TECHNIQUE: The lower extremity deep venous system is examined utilizing real time linear array sonog soren with graded compression, doppler sonography and color-flow sonography. VESSELS IMAGED: Common Femoral Vein Deep Femoral Vein Greater Saphenous Vein * Femoral Vein Popliteal Vein Small Saphenous Vein * Proximal Calf Veins (* superficial vessels) Left Leg: Negative for DVT IMPRESSION: Grayscale, color doppler, spectral doppler imaging performed of the deep veins of the lo wer extremities. There is normal flow, compressibility, vascular waveforms.
[2023-11-18] MEDS ORDERED: HYDROmorphone 1 MG/ML 1 ML SYRINGE IM STA (16:25)
[2023-11-18] MEDS ORDERED: diphenhydrAMINE 50 MG CAP PO STA (16:33)
[2023-11-18] MEDS ORDERED: PROCHLORPERAZINE 5 MG TAB PO STA (16:33)
[2023-11-18] MEDS ORDERED: traMADol 50 MG TAB PO STA (17:18)
[2023-11-18] MEDS ORDERED: ONDANSETRON 4 MG ODT STARTER PACK 2 TAB BTL PO STA (17:18)
[2023-11-18] MEDS ORDERED: traMADol 50 MG STARTER PACK 3 TAB BTL PO STA (17:18)
[2023-11-18 18:56] VITALS: BP 179/91; PULSE 78
== END 2023-11-18 18:45 | disposition home or self-care (01) ==
LOC: EC 13:30
DX: G89.18 Other acute postprocedural pain (principal); R60.0 Localized edema; I25.10 Atherosclerotic heart disease of native coronary artery without angina pectoris; J44.9 Chronic obstructive pulmonary disease, unspecified; I10 Essential (primary) hypertension; M19.90 Unspecified osteoarthritis, unspecified site; E78.5 Hyperlipidemia, unspecified; K21.9 Gastro-esophageal reflux disease without esophagitis; Z87.891 Personal history of nicotine dependence; Z79.82 Long term (current) use of aspirin; Z79.899 Other long term (current) drug therapy; Z79.1 Long term (current) use of non-steroidal anti-inflammatories (NSAID); Z88.6 Allergy status to analgesic agent
CPT/HCPCS: 93971; 99284; 96372; S0183; J1170; S0119

== ENCOUNTER 2023-11-21 05:06 | Emergency (ER) | payer MEDICARE, OTHER ==
[2023-11-21 05:32] VITALS: TEMP 98
[2023-11-21] MEDS ORDERED: HYDROmorphone 0.5 MG/0.5 ML SYRINGE IVP STA (06:05)
[2023-11-21] MEDS ORDERED: SODIUM CHLORIDE 0.9% 1,000 ML IV STA (06:07)
--- NOTE | 2023-11-21 06:28 | XR ---
EXAMINATION TYPE: XR knee complete LT DATE OF EXAM: 11/21/2023 5:40 AM CLINICAL INDICATION:Male, 68 years old with history of pain; [facility] COMPARISON: 10/27/2023. TECHNIQUE: XR knee complete LT; examined in Frontal, lateral and oblique projections. FINDINGS: Status post total knee arthroplasty changes with hardware in appropriate alignment and in tact. No evidence of fracture. There is a large joint effusion present. IMPRESSION: Status post total knee arthroplasty changes with hardware intact and appropriate alignment. No fractu res identified. There is a large joint effusion on today's exam correlate for signs and symptoms of infection.
--- NOTE | 2023-11-21 06:33 | ED ---
General Adult HPI - General Source: patient, RN notes reviewed, old records reviewed Mode of arrival: EMS Limitations: no limitations <Bobby Lara - Last Filed: 11/21/23 06:34> <Byron Polanco - Last Filed: 11/21/23 09:46> - General Chief complaint: Extremity Problem,Nontraumatic Stated complaint: knee pain Time Seen by Provider: 11/21/23 06:01 - History of Present Illness Initial comments: Patient is a 68-year-old male who presents emergency Department complaining of left knee pain. Recently had a total left knee done on October 27. Went to rehab and then recently went home. Asof last few days that he is having increased warmth over the left knee as well as increasing pain. Denies any systemic fevers, nausea, vomiting, chest pain, abdominal pain. Presents for further evaluation at this time. Was evaluated 3 days ago for similar complaints and his duplex is obtained at that time and was unremarkable. Presents for further evaluation. (Bobby Lara) - Related Data Home Medications Medication Instructions Recorded Confirmed tiZANidine [Zanaflex] 4 mg PO TID 02/26/18 10/27/23 oxyCODONE-APAP 10-325MG [Percocet 1 tab PO Q6H PRN 01/02/20 10/27/23 10-325 mg] Aspirin EC [Ecotrin Low Dose] 81 mg PO DAILY 04/23/23 10/27/23 Escitalopram [Lexapro] 10 mg PO DAILY 04/23/23 10/27/23 Folic Acid 1 mg PO DAILY 04/23/23 10/27/23 Pantoprazole Sodium [Protonix] 40 mg PO DAILY 04/23/23 10/27/23 Atorvastatin [Lipitor] 80 mg PO HS 06/27/23 10/27/23 Benzonatate [Tessalon Perle] 200 mg PO TID PRN 06/27/23 10/27/23 Dicyclomine [Bentyl] 20 mg PO TID 06/27/23 10/27/23 Ezetimibe [Zetia] 10 mg PO DAILY 06/27/23 10/27/23 Gabapentin [Neurontin] 400 mg PO TID 06/27/23 10/27/23 Morphine Sulfate ER [Ms Contin] 30 mg PO Q8H 10/22/23 10/27/23 Previous Rx's Medication Instructions Recorded amLODIPine [Norvasc] 10 mg PO DAILY #30 tab 04/26/23 hydrALAZINE HCL [Apresoline] 100 mg PO TID 30 Days #180 tab 06/29/23 methIMAzole [Tapazole] 5 mg PO TID #90 tablet 06/29/23 Isosorbide Mononitrate ER [Imdur] 30 mg PO DAILY #30 tab 07/23/23 Losartan-Hctz 50-12.5 mg [Hyzaar 1 each PO DAILY #30 tab 07/23/23 50-12.5] Metoprolol Tartrate [Lopressor] 100 mg PO BID #30 tab 07/23/23 Nitroglycerin Sl Tabs [Nitrostat] 0.4 mg SUBLINGUAL Q5M PRN #30 tab 07/23/23 cloNIDine HCL [Catapres] 0.2 mg PO BID #30 tab 07/23/23 Naproxen 250 mg PO BID #30 tablet 09/14/23 Apixaban [Eliquis] 2.5 mg PO BID #60 tab 10/29/23 Gabapentin [Neurontin] 400 mg PO TID #21 cap 10/29/23 Morphine Sulfate [Ms Contin] 30 mg PO Q8HR #12 tab 10/29/23 Sennosides/Docusate Sodium [Senna 1 each PO DAILY #20 capsule 10/29/23 Plus 8.6-50 mg Softgel] oxyCODONE HCL [oxyCODONE HCL (IR)] 20 mg PO Q6H #12 tab 10/29/23 Allergies Allergy/AdvReac Type Severity Reaction Status Date / Time codeine Allergy Itching Verified 11/18/23 14:57 ibuprofen [From Motrin] Allergy Rash/Hives Verified 11/18/23 14:57 ketorolac tromethamine Allergy Rash/Hives Verified 11/18/23 14:57 [From Toradol] Review of Systems ROS Other: All systems not noted in ROS Statement are negative. <Bobby Lara - Last Filed: 11/21/23 06:34> ROS Other: All systems not noted in ROS Statement are negative. <Byron Ploanco - Last Filed: 11/21/23 09:46> ROS Statement: Those systems with pertinent positive or pertinent negative responses have been documented in the HPI. Review of Systems: CONST: Denies fever EYES: Denies blurry vision ENT: Denies nasal congestion C/V: Denies Chest pain RESP: Denies shortness of breath GI: Denies abdominal pain : Denies dysuria SKIN: Denies rash. MSK: Endorses left knee pain NEURO: Denies headache (Bobby Lara) Past Medical History Past Medical History: Coronary Artery Disease (CAD), Chest Pain / Angina, COPD, Deep Vein Thrombosis (DVT), GERD/Reflux, Hyperlipidemia, Hypertension, Osteoarthritis (OA), Thyroid Disorder Additional Past Medical History / Comment(s): Occasional palpitations, g astritis, small hiatal hernia, diverticular dx, pt states years ago he had PUD, chronic low back pain, chronic pain syndrome, migraines, DVT L arm, numbness/tingling bilateral lower legs, bilateral past R hand fracture, arthritis multiple joints, hyperthyroid, sinus problems. History of Any Multi-Drug Resistant Organisms: None Reported Past Surgical History: Back Surgery, Cholecystectomy, Heart Catheterization With Stent, Orthopedic Surgery Additional Past Surgical History / Comment(s): EGDs/colonoscopies, multiple low back surgeries, bilateral arm and bilateral thigh surgeries for brown recluse spider bites with infection, morphine pain pump insertion and removal due to infection, PCI with stents, L rotator cuff repair, L knee arthroscopy, cervical fusion/cage, R cataract removal. 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 states he was "down for 12 minutes" lower back surgery Date of Last Stent Placement:: 10/12/17 Past Psychological History: No Psychological Hx Reported Smoking Status: Former smoker Past Alcohol Use History: None Reported Past Drug Use History: None Reported - Past Family History Father Family Medical History: No Reported History Additional Family Medical History / Comment(s): Father had back problems. He lived to be 82 yrs old. Mother History Unknown: Yes Family Medical History: Hypertension, Myocardial Infarction ([place]) Additional Family Medical History / Comment(s): Mother of a [place] at the age of 55yrs. Brother(s) Family Medical History: Cancer, COPD Additional Family Medical History / Comment(s): Leukemia <Bobby Lara - Last Filed: 11/21/23 06:34> General Exam Limitations: no limitations <Bobby Lara - Last Filed: 11/21/23 06:34> - General Exam Comments Initial Comments: General: Appears in moderate distress. HEAD: Normal with no signs of head trauma. EYES: PERRLA, EOMI, conjunctiva normal, no discharge. ENT: Hearing grossly intact, normal oropharynx. RESPIRATORY: Clear breath sounds bilaterally. No wheezes, rales, or rhonchi. C/V: Regular rate and rhythm. S1 and S2 auscultated, no edema, peripheral pulses 2+ and intact throughout ABD: Abd is soft, nontender, nondistended EXT: Decreased range of motion of left knee secondary to pain. Left knee is warm. No significant erythema. No obvious discharge. No crepitus palpated. No fluctuance palpated. SKIN: No rashes or lesions observed on exposed skin. NEURO: Alert and oriented x 4. No focal deficits (Bobby Lara) Course <Byron Polanco - Last Filed: 11/21/23 09:46> Vital Signs 11/21/23 05:15 Temperature 98 F Pulse Rate 111 H Respiratory 20 Rate Blood Pressure 170/107 O2 Sat by Pulse 98 Oximetry - Reevaluation(s) Reevaluation #1: 11/21/23 09:35 Patient should follow closely with his orthopedic surgeon. I have a low suspicion for acute infection given the normal white count, normal CRP. I suspect this is all postoperative changes. Patient had a DVT study done 3 days ago which was negative for DVT with the same symptoms. (Byron Polanco) Medical Decision Making <Bobby Lara - Last Filed: 11/21/23 06:34> - Lab Data Result diagrams: 11/21/23 06:34 11/21/23 06:34 <Byron Polanco - Last Filed: 11/21/23 09:46> - Medical Decision Making Was pt. sent in by a medical professional or institution ([facility], PUBLIC AREA SUPERVISOR, urgent care, hospital, or half-way...) When possible be specific @ -No Did you speak to anyone other than the patient for history (EMS, parent, family, police, friend...)? What history was obtained from this source @ -No Did you review nursing and triage notes (agree or disagree)? Why? @ -I reviewed and agree with nursing and triage notes Were old charts reviewed (outside hosp., previous admission, EMS record, old EKG, old radiological studies, urgent care reports/EKG's, half-way records)? Report findings @ -No old charts were reviewed Differential Diagnosis (chest pain, altered mental status, abdominal pain women, abdominal pain men, vaginal bleeding, weakness, fever, dyspnea, syncope, headache, dizziness, GI bleed, back pain, seizure, CVA, palpatations, mental health, musculoskeletal)? @ -Acute on chronic pain, left knee infection, postop infection, postop pain. This list is not all-inclusive. EKG interpreted by me (3pts min.). @ -As above X-rays interpreted by me (1pt min.). @ -Patient does have a large joint effusion on knee x-ray. CT interpreted by me (1pt min.). @ -Pending U/S interpreted by me (1pt. min.). @ -None done What testing was considered but not performed or refused? (CT, X-rays, U/S, labs)? Why? @ -None What meds were considered but not given or refused? Why? @ -None Did you discuss the management of the patient with other professionals (professionals i.e. , PA, PUBLIC AREA SUPERVISOR, lab, RT, psych nurse, social work associate, soda fountain clerk, teacher, campus security officer, case sealer)? Give summary @ -No Was smoking cessation discussed for >3mins.? @ -No Was critical care preformed (if so, how long)? @ -No Were there social determinants of health that impacted care today? How? (Homelessness, low income, unemployed, alcoholism, drug addiction, transportation, low edu. Level, literacy, decrease access to med. care, penitentiary, rehab)? @ -No Was there de-escalation of care discussed even if they declined (Discuss DNR or withdrawal of care, Hospice)? DNR status @ -No What co-morbidities impacted this encounter? (DM, HTN, Smoking, COPD, CAD, Cancer, CVA, ARF, Chemo, Hep., AIDS, mental health diagnosis, sleep apnea, morbid obesity)? @ -None Was patient admitted / discharged? Hospital course, mention meds given and route, prescriptions, significant lab abnormalities, going to OR and other pertinent info. @ -Based on the patient's presentation and physical exam, presents with concern for possible postop infection of the left knee. We'll obtain basic labs, as well as left knee imaging. Patient will be given IV analgesic medications and fluids. Patient and agreement with this plan. Patient's orthopedic patient's orthopedic physician is Dr. Vance. At this time, is the end of my shift. Patient signed out to Dr. Polanco. Undiagnosed new problem with uncertain prognosis? @ -No Drug Therapy requiring intensive monitoring for toxicity (Heparin, Nitro, Insulin, Cardizem)? @ -No Were any procedures done? @ -No (Bobby Lara) - Lab Data Lab Results 11/21/23 11/21/23 Range/Units 06:34 06:34 WBC 8.4 (3.8-10.6) k/uL RBC 3.97 L (4.30-5.90) m/uL Hgb 11.5 L (13.0-17.5) gm/dL Hct 36.4 L (39.0-53.0) % MCV 91.7 (80.0-100.0) fL MCH 29.1 (25.0-35.0) pg MCHC 31.7 (31.0-37.0) g/dL RDW 14.4 (11.5-15.5) % Plt Count 515 H D (150-450) k/uL MPV 7.2 Neutrophils % 84 % Lymphocytes % 9 % Monocytes % 5 % Eosinophils % 1 % Basophils % 0 % Neutrophils # 7.0 (1.3-7.7) k/uL Lymphocytes # 0.7 L (1.0-4.8) k/uL Monocytes # 0.4 (0-1.0) k/uL Eosinophils # 0.1 (0-0.7) k/uL Basophils # 0.0 (0-0.2) k/uL Hypochromasia Slight Sodium 138 (137-145) mmol/L Potassium 3.8 (3.5-5.1) mmol/L Chloride 102 (98-107) mmol/L Carbon Dioxide 23 (22-30) mmol/L Anion Gap 13 mmol/L BUN 4 L (9-20) mg/dL Creatinine 0.49 L (0.66-1.25) mg/dL Est GFR (CKD-EPI)AfAm >90 (>60 ml/min/1.73 sqM) Est GFR (CKD-EPI)NonAf >90 (>60 ml/min/1.73 sqM) Glucose 127 H (74-99) mg/dL Calcium 9.9 (8.4-10.2) mg/dL Total Bilirubin 0.7 (0.2-1.3) mg/dL AST 23 (17-59) U/L ALT 13 (4-49) U/L Alkaline Phosphatase 94 (38-126) U/L C-Reactive Protein 1.2 H (<1.0) mg/dL Total Protein 7.6 (6.3-8.2) g/dL Albumin 4.5 (3.5-5.0) g/dL Disposition <Bobby Lara - Last Filed: 11/21/23 06:34> Is patient prescribed a controlled substance at d/c from ED?: No Time of Disposition: 08:10 <Byron Polanco - Last Filed: 11/21/23 09:46> Clinical Impression: Postoperative pain Disposition: HOME SELF-CARE Condition: Fair Instructions (If sedation given, give patient instructions): Swollen Knee Joint (ED), Knee Pain (ED) Referrals: None,Stated [Primary Care Provider] - 1-2 days Nelson Vance MD [STAFF PHYSICIAN] - 1-2 days
[2023-11-21 06:42] LABS: Basophils % (A) 0 %; Eosinophils # (A) 0.1 k/uL (0-0.7); Eosinophils % (A) 1 %; HCT 36.4 % (39.0-53.0); HGB 11.5 gm/dL (13.0-17.5); Hypochromasia Slight; Lymphocytes # (A) 0.7 k/uL (1.0-4.8); Lymphocytes % (A) 9 %; MCH 29.1 pg (25.0-35.0); MCHC 31.7 g/dL (31.0-37.0); MCV 91.7 fL (80.0-100.0); Mean Platelet Volume 7.2; Monocytes # (A) 0.4 k/uL (0-1.0); Monocytes % (A) 5 %; Neutrophils % (A) 84 %; RBC 3.97 m/uL (4.30-5.90); RDW 14.4 % (11.5-15.5); WBC 8.4 k/uL (3.8-10.6)
[2023-11-21 06:46] LABS: Platelet Count 515 k/uL (150-450)
[2023-11-21 06:56] LABS: ALT 13 U/L (4-49); AST 23 U/L (17-59); African American GFR (CKD) >90 (>60 ml/min/1.73 sqM); Albumin 4.5 g/dL (3.5-5.0); Alkaline Phosphatase 94 U/L (38-126); Anion Gap 13 mmol/L; Blood Urea Nitrogen 4 mg/dL (9-20); C Reactive Protein 1.2 mg/dL (<1.0); Calcium 9.9 mg/dL (8.4-10.2); Carbon Dioxide 23 mmol/L (22-30); Chloride 102 mmol/L (98-107); Glucose 127 mg/dL (74-99); Non-African American GFR(CKD) >90 (>60 ml/min/1.73 sqM); Potassium 3.8 mmol/L (3.5-5.1); Sodium 138 mmol/L (137-145); Total Bilirubin 0.7 mg/dL (0.2-1.3); Total Protein 7.6 g/dL (6.3-8.2)
[2023-11-21] MEDS ORDERED: HYDROmorphone 1 MG/ML 1 ML SYRINGE IVP STA (07:43)
--- NOTE | 2023-11-21 08:12 | CT ---
EXAMINATION TYPE: CT knee LT w con CT DLP: 359 mGycm, Automated exposure control for dose reduction was used. DATE OF EXAM: 11/21/2023 7:50 AM COMPARISON: Knee radiographs earlier today CLINICAL INDICATION:Male, 68 years old with history of pain, warmth. concern for postop infection; PH H, Pain, warmth, concern for postop infection. Total knee on 10-27-2023 TECHNIQUE: Axial images were obtained of the left knee from the mid femur to the mid tibia . Additio nal coronal and sagittal reformatted images and soft tissue and bone window were obtained for review. 3-D reconstruction was created on a separate workstation. Contrast used:100 ml mL of Isovue 300 with IV Contrast, Oral contrast used: None FINDINGS: Left total knee arthroplasty in place, with intact appearance and normal alignment. Posterior resurfa cing changes of the patella. No evidence of perihardware lucency or acute fracture. No osseous destru ctive process or aggressive periostitis. There is a step off appearance of the proximal tibial and fi bular shafts consistent with motion artifact. Osseous mineralization may be slightly decreased. Soft tissue evaluation is somewhat limited by artifact from the prosthesis however a large knee joint effusion is present with a couple of foci of tiny radiodense material seen along its posterior aspec t. There is soft tissue swelling about the knee suggesting edema and possible cellulitis. No focal fl uid collection is otherwise seen. IMPRESSION: 1. Left total knee arthroplasty in place, with intact appearance and normal alignment. 2. No acute bony abnormality. 3. Large knee joint effusion with a couple of foci of tiny radiodense material seen along its clearing inspector ior aspect. Soft tissue swelling about the knee suggesting edema and possible cellulitis.
[2023-11-21] MEDS ORDERED: ACETAMINOPHEN TAB 325 MG TAB PO STA (11:25)
[2023-11-21 14:27] LABS: Erythrocyte Sedimentation Rate 36 mm/Hr (0-20)
[2023-11-21 19:13] VITALS: BP 163/99; PULSE 98; RESP 16
== END 2023-11-21 11:15 | disposition home or self-care (01) ==
LOC: EC 05:06
DX: G89.18 Other acute postprocedural pain (principal); I25.10 Atherosclerotic heart disease of native coronary artery without angina pectoris; J44.9 Chronic obstructive pulmonary disease, unspecified; I10 Essential (primary) hypertension; K21.9 Gastro-esophageal reflux disease without esophagitis; E78.5 Hyperlipidemia, unspecified; M19.90 Unspecified osteoarthritis, unspecified site; Z87.891 Personal history of nicotine dependence; Z79.82 Long term (current) use of aspirin; Z79.899 Other long term (current) drug therapy; Z88.5 Allergy status to narcotic agent; Z88.6 Allergy status to analgesic agent
CPT/HCPCS: 36415; 80053; 85652; 85025; 86140; 73562; 73701; 99285; 96374; 96376; 96361; J1170 ×2; Q9967

== ENCOUNTER 2023-11-27 10:37 | Emergency (ER) | payer MEDICARE, OTHER ==
[2023-11-27 11:08] VITALS: BP 138/89; PULSE 118; RESP 16; TEMP 97.8
--- NOTE | 2023-11-27 11:42 | XR ---
EXAMINATION TYPE: XR chest 2V DATE OF EXAM: 11/27/2023 11:16 AM CLINICAL INDICATION:Male, 68 years old with history of CP; PHH COMPARISON: Chest radiographs from 10/27/2023 TECHNIQUE: XR chest 2V Frontal and lateral views of the chest. FINDINGS: Lungs/Pleura: There is no evidence of pleural effusion, focal consolidation, or pneumothorax. Pulmonary vascularity: Unremarkable. Heart/mediastinum: Cardiomediastinal silhouette is unremarkable. Musculoskeletal: No acute osseous pathology. There is fixation hardware in the lower cervical spine/u pper lumbar. Other findings: None IMPRESSION: No acute cardiopulmonary disease/process.
[2023-11-27 11:56] LABS: Basophils % (A) 0 %; Eosinophils # (A) 0.1 k/uL (0-0.7); Eosinophils % (A) 1 %; HCT 39.6 % (39.0-53.0); HGB 12.7 gm/dL (13.0-17.5); Lymphocytes # (A) 1.7 k/uL (1.0-4.8); Lymphocytes % (A) 34 %; MCH 29.4 pg (25.0-35.0); MCHC 32.2 g/dL (31.0-37.0); MCV 91.4 fL (80.0-100.0); Mean Platelet Volume 6.9; Monocytes # (A) 0.4 k/uL (0-1.0); Monocytes % (A) 9 %; Neutrophils # (A) 2.7 k/uL (1.3-7.7); Neutrophils % (A) 54 %; Platelet Count 415 k/uL (150-450); RBC 4.34 m/uL (4.30-5.90); RDW 14.4 % (11.5-15.5)
[2023-11-27 12:03] LABS: Partial Thromboplastin Time 23.3 sec (22.0-30.0); Prothrombin Time 10.6 sec (10.0-12.5)
[2023-11-27 12:11] LABS: ALT 32 U/L (4-49); AST 25 U/L (17-59); African American GFR (CKD) >90 (>60 ml/min/1.73 sqM); Albumin 4.3 g/dL (3.5-5.0); Alkaline Phosphatase 79 U/L (38-126); Anion Gap 11 mmol/L; Blood Urea Nitrogen 22 mg/dL (9-20); Calcium 9.3 mg/dL (8.4-10.2); Carbon Dioxide 28 mmol/L (22-30); Chloride 101 mmol/L (98-107); Glucose 102 mg/dL (74-99); Non-African American GFR(CKD) >90 (>60 ml/min/1.73 sqM); Potassium 3.2 mmol/L (3.5-5.1); Sodium 140 mmol/L (137-145); Total Bilirubin 0.5 mg/dL (0.2-1.3); Total Protein 7.3 g/dL (6.3-8.2)
[2023-11-27] MEDS ORDERED: MORPHINE SULFATE 4 MG/ML SYRINGE IVP STA (12:19)
--- NOTE | 2023-11-27 12:26 | ED ---
General Adult HPI - General Chief complaint: Chest Pain Stated complaint: chest pain Time Seen by Provider: 11/27/23 11:06 Source: patient, RN notes reviewed, old records reviewed Mode of arrival: ambulatory Limitations: no limitations - History of Present Illness Initial comments: 68-year-old male presenting for evaluation of upper chest pain. Patient states that his thyroid is abnormal and he is supposed to follow with endocrinology. He states that this does give him palpitations. He denies difficulty breathing. He denies substernal chest pain. - Related Data Home Medications Medication Instructions Recorded Confirmed tiZANidine [Zanaflex] 4 mg PO TID 02/26/18 10/27/23 oxyCODONE-APAP 10-325MG [Percocet 1 tab PO Q6H PRN 01/02/20 10/27/23 10-325 mg] Aspirin EC [Ecotrin Low Dose] 81 mg PO DAILY 04/23/23 10/27/23 Escitalopram [Lexapro] 10 mg PO DAILY 04/23/23 10/27/23 Folic Acid 1 mg PO DAILY 04/23/23 10/27/23 Pantoprazole Sodium [Protonix] 40 mg PO DAILY 04/23/23 10/27/23 Atorvastatin [Lipitor] 80 mg PO HS 06/27/23 10/27/23 Benzonatate [Tessalon Perle] 200 mg PO TID PRN 06/27/23 10/27/23 Dicyclomine [Bentyl] 20 mg PO TID 06/27/23 10/27/23 Ezetimibe [Zetia] 10 mg PO DAILY 06/27/23 10/27/23 Gabapentin [Neurontin] 400 mg PO TID 06/27/23 10/27/23 Morphine Sulfate ER [Ms Contin] 30 mg PO Q8H 10/22/23 10/27/23 Previous Rx's Medication Instructions Recorded amLODIPine [Norvasc] 10 mg PO DAILY #30 tab 04/26/23 hydrALAZINE HCL [Apresoline] 100 mg PO TID 30 Days #180 tab 06/29/23 methIMAzole [Tapazole] 5 mg PO TID #90 tablet 06/29/23 Isosorbide Mononitrate ER [Imdur] 30 mg PO DAILY #30 tab 07/23/23 Losartan-Hctz 50-12.5 mg [Hyzaar 1 each PO DAILY #30 tab 07/23/23 50-12.5] Metoprolol Tartrate [Lopressor] 100 mg PO BID #30 tab 07/23/23 Nitroglycerin Sl Tabs [Nitrostat] 0.4 mg SUBLINGUAL Q5M PRN #30 tab 07/23/23 cloNIDine HCL [Catapres] 0.2 mg PO BID #30 tab 07/23/23 Naproxen 250 mg PO BID #30 tablet 09/14/23 Apixaban [Eliquis] 2.5 mg PO BID #60 tab 10/29/23 Gabapentin [Neurontin] 400 mg PO TID #21 cap 10/29/23 Morphine Sulfate [Ms Contin] 30 mg PO Q8HR #12 tab 10/29/23 Sennosides/Docusate Sodium [Senna 1 each PO DAILY #20 capsule 10/29/23 Plus 8.6-50 mg Softgel] oxyCODONE HCL [oxyCODONE HCL (IR)] 20 mg PO Q6H #12 tab 10/29/23 Allergies Allergy/AdvReac Type Severity Reaction Status Date / Time codeine Allergy Itching Verified 11/27/23 10:56 ibuprofen [From Motrin] Allergy Rash/Hives Verified 11/27/23 10:56 ketorolac tromethamine Allergy Rash/Hives Verified 11/27/23 10:56 [From Toradol] Review of Systems ROS Statement: Those systems with pertinent positive or pertinent negative responses have been documented in the HPI. ROS Other: All systems not noted in ROS Statement are negative. Past Medical History Past Medical History: Coronary Artery Disease (CAD), Chest Pain / Angina, COPD, Deep Vein Thrombosis (DVT), GERD/Reflux, Hyperlipidemia, Hypertension, Osteoarthritis (OA), Thyroid Disorder Additional Past Medical History / Comment(s): Occasional palpitations, gastritis, small hiatal hernia, diverticular dx, pt states years ago he had PUD, chronic low back pain, chronic pain syndrome, migraines, DVT L arm, numbness/tingling bilateral lower legs, bilateral past R hand fracture, arthritis multiple joints, hyperthyroid, sinus problems. History of Any Multi-Drug Resistant Organisms: None Reported Past Surgical History: Back Surgery, Cholecystectomy, Heart Catheterization With Stent, Orthopedic Surgery Additional Past Surgical History / Comment(s): EGDs/colonoscopies, multiple low back surgeries, bilateral arm and bilateral thigh surgeries for brown recluse spider bites with infection, morphine pain pump insertion and removal due to infection, PCI with stents, L rotator cuff repair, L knee arthroscopy, cervical fusion/cage, R cataract removal. 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 states he was "down for 12 minutes" lower back surgery Date of Last Stent Placement:: 10/12/17 Past Psychological History: No Psychological Hx Reported Smoking Status: Former smoker Past Alcohol Use History: None Reported Past Drug Use History: None Reported - Past Family History Father Family Medical History: No Reported History Additional Family Medical History / Comment(s): Father had back problems. He lived to be 82 yrs old. Mother History Unknown: Yes Family Medical History: Hypertension, Myocardial Infarction ([place]) Additional Family Medical History / Comment(s): Mother of a [place] at the age of 55yrs. Brother(s) Family Medical History: Cancer, COPD Additional Family Medical History / Comment(s): Leukemia General Exam Limitations: no limitations General appearance: alert, in no apparent distress Head exam: Present: atraumatic, normocephalic Neck exam: Present: thyromegaly Respiratory exam: Present: normal lung sounds bilaterally. Absent: respiratory distress, wheezes Cardiovascular Exam: Present: normal rhythm, tachycardia GI/Abdominal exam: Present: soft. Absent: distended, tenderness, guarding Extremities exam: Present: normal inspection, normal capillary refill Neurological exam: Present: alert, oriented X3, CN II-XII intact. Absent: motor sensory deficit Skin exam: Present: warm, dry, intact Course Vital Signs 11/27/23 10:56 Temperature 97.8 F Pulse Rate 118 H Respiratory 16 Rate Blood Pressure 138/89 O2 Sat by Pulse 98 Oximetry Medical Decision Making - Medical Decision Making Was pt. sent in by a medical professional or institution (, FAITH, WINDING INSPECTOR AND TESTER, urgent ca re, hospital, or fdc...) When possible be specific @ -No Did you speak to anyone other than the patient for history (EMS, parent, family, police, friend...)? What history was obtained from this source @ -No Did you review nursing and triage notes (agree or disagree)? Why? @ -I reviewed and agree with nursing and triage notes Were old charts reviewed (outside hosp., previous admission, EMS record, old EKG, old radiological studies, urgent care reports/EKG's, fdc records)? Report findings @ -No old charts were reviewed Differential Diagnosis (chest pain, altered mental status, abdominal pain women, abdominal pain men, vaginal bleeding, weakness, fever, dyspnea, syncope, headache, dizziness, GI bleed, back pain, seizure, CVA, palpatations, mental health, musculoskeletal)? @ -[Differential Chest Pain: Stable Angina, Unstable Angina, STEMI, NSTEMI Aortic Dissection, Pneumothorax, Musculoskeletal, Esophageal Spasm GERD, Cholecystitis, Pancreatitis, Zoster, this is not meant to be an all-inclusive list. EKG interpreted by me (3pts min.). @ -[Sinus tachycardia rate of 106, MI interval 147, QRS duration 98, QTC 413 X-rays interpreted by me (1pt min.). @Chest x-ray negative for acute cardiopulmonary findings. CT interpreted by me (1pt min.). @ -None done U/S interpreted by me (1pt. min.). @ -None done What testing was considered but not performed or refused? (CT, X-rays, U/S, labs)? Why? @ -None What meds were considered but not given or refused? Why? @ -None Did you discuss the management of the patient with other professionals (professionals i.e. , PA, WINDING INSPECTOR AND TESTER, lab, RT, psych nurse, web content & social media manager, wheel and axle inspector, teacher, alumni relations officer, adult protective caseworker)? Give summary @ -No Was smoking cessation discussed for >3mins.? @ -No Was critical care preformed (if so, how long)? @ -No Were there social determinants of health that impacted care today? How? (Homelessness, low income, unemployed, alcoholism, drug addiction, tr ansportation, low edu. Level, literacy, decrease access to med. care, group home, rehab)? @ -No Was there de-escalation of care discussed even if they declined (Discuss DNR or withdrawal of care, Hospice)? DNR status @ -No What co-morbidities impacted this encounter? (DM, HTN, Smoking, COPD, CAD, Cancer, CVA, ARF, Chemo, Hep., AIDS, mental health diagnosis, sleep apnea, morbid obesity)? @ -CAD, hyperthyroidism Was patient admitted / discharged? Hospital course, mention meds given and rou te, prescriptions, significant lab abnormalities, going to OR and other pertinent info. @ 68 -year-old male with upper chest pain and concern for his thyroid. Patient has no goiter and does follow with endocrinology. He is on methimazole. He denies fever. He reports some palpitation. No cough. Chest x-ray is clear. EKG is sinus tachycardia without ST segment changes. Patient has normal CBC, normal CMP, negative troponin, he has a nondetectable TSH but normal T4. Sylwia ent should continue to follow with endocrinology. Stable for discharge. Undiagnosed new problem with uncertain prognosis? @ -No Drug Therapy requiring intensive monitoring for toxicity (Heparin, Nitro, Insulin, Cardizem)? @ -No Were any procedures done? @ -No Diagnosis/symptom? @ -[Palpitations Acute, or Chronic, or Acute on Chronic? @ -Acute Uncomplicated (without systemic symptoms) or Complicated (systemic symptoms)? @ -default Side effects of treatment? @ -No Exacerbation, Progression, or Severe Exacerbation? @ -No Poses a threat to life or bodily function? How? (Chest pain, [place], [place], pneumonia, PE, COPD, DKA, ARF, appy, cholecystitis, CVA, Diverticulitis, Homicidal, Suicidal, threat to staff... and all critical care pts) @Moderate risk - Lab Data Result diagrams: 11/27/23 11:46 11/27/23 11:46 Lab Results 11/27/23 11/27/23 11/27/23 Range/Units 11:46 11:46 11:46 WBC 5.0 (3.8-10.6) k/uL RBC 4.34 (4.30-5.90) m/uL Hgb 12.7 L (13.0-17.5) gm/dL Hct 39.6 (39.0-53.0) % MCV 91.4 (80.0-100.0) fL MCH 29.4 (25.0-35.0) pg MCHC 32.2 (31.0-37.0) g/dL RDW 14.4 (11.5-15.5) % Plt Count 415 (150-450) k/uL MPV 6.9 Neutrophils % 54 % Lymphocytes % 34 % Monocytes % 9 % Eosinophils % 1 % Basophils % 0 % Neutrophils # 2.7 (1.3-7.7) k/uL Lymphocytes # 1.7 (1.0-4.8) k/uL Monocytes # 0.4 (0-1.0) k/uL Eosinophils # 0.1 (0-0.7) k/uL Basophils # 0.0 (0-0.2) k/uL PT 10.6 (10.0-12.5) sec INR 1.0 (<1.2) APTT 23.3 (22.0-30.0) sec Sodium 140 (137-145) mmol/L Potassium 3.2 L (3.5-5.1) mmol/L Chloride 101 (98-107) mmol/L Carbon Dioxide 28 (22-30) mmol/L Anion Gap 11 mmol/L BUN 22 H (9-20) mg/dL Creatinine 0.74 (0.66-1.25) mg/dL Est GFR (CKD-EPI)AfAm >90 (>60 ml/min/1.73 sqM) Est GFR (CKD-EPI)NonAf >90 (>60 ml/min/1.73 sqM) Glucose 102 H (74-99) mg/dL Calcium 9.3 (8.4-10.2) mg/dL Total Bilirubin 0.5 (0.2-1.3) mg/dL AST 25 (17-59) U/L ALT 32 (4-49) U/L Alkaline Phosphatase 79 (38-126) U/L Troponin I (0.000-0.034) ng/mL Total Protein 7.3 (6.3-8.2) g/dL Albumin 4.3 (3.5-5.0) g/dL TSH <0.015 L (0.465-4.680) mIU/L Free T4 1.78 (0.78-2.19) ng/dL 11/27/23 Range/Units 11:46 WBC (3.8-10.6) k/uL RBC (4.30-5.90) m/uL Hgb (13.0-17.5) gm/dL Hct (39.0-53.0) % MCV (80.0-100.0) fL MCH (25.0-35.0) pg MCHC (31.0-37.0) g/dL RDW (11.5-15.5) % Plt Count (150-450) k/uL MPV Neutrophils % % Lymphocytes % % Monocytes % % Eosinophils % % Basophils % % Neutrophils # (1.3-7.7) k/uL Lymphocytes # (1.0-4.8) k/uL Monocytes # (0-1.0) k/uL Eosinophils # (0-0.7) k/uL Basophils # (0-0.2) k/uL PT (10.0-12.5) sec INR (<1.2) APTT (22.0-30.0) sec Sodium (137-145) mmol/L Potassium (3.5-5.1) mmol/L Chloride (98-107) mmol/L Carbon Dioxide (22-30) mmol/L Anion Gap mmol/L BUN (9-20) mg/dL Creatinine (0.66-1.25) mg/dL Est GFR (CKD-EPI)AfAm (>60 ml/min/1.73 sqM) Est GFR (CKD-EPI)NonAf (>60 ml/min/1.73 sqM) Glucose (74-99) mg/dL Calcium (8.4-10.2) mg/dL Total Bilirubin (0.2-1.3) mg/dL AST (17-59) U/L ALT (4-49) U/L Alkaline Phosphatase (38-126) U/L Troponin I 0.019 (0.000-0.034) ng/mL Total Protein (6.3-8.2) g/dL Albumin (3.5-5.0) g/dL TSH (0.465-4.680) mIU/L Free T4 (0.78-2.19) ng/dL Disposition Clinical Impression: Chest pain, Palpitations Disposition: HOME SELF-CARE Condition: Fair Instructions (If sedation given, give patient instructions): Heart Palpitations (ED) Is patient prescribed a controlled substance at d/c from ED?: No Referrals: None,Stated [Primary Care Provider] - 1-2 days Gina Chung [STAFF PHYSICIAN] - 1-2 days Time of Disposition: 13:40
[2023-11-27 13:13] LABS: T4, Free (Free Thyroxine) 1.78 ng/dL (0.78-2.19)
== END 2023-11-27 14:27 | disposition home or self-care (01) ==
LOC: EC 10:37
DX: R00.2 Palpitations (principal); R07.89 Other chest pain; R00.0 Tachycardia, unspecified; E78.5 Hyperlipidemia, unspecified; I10 Essential (primary) hypertension; I25.10 Atherosclerotic heart disease of native coronary artery without angina pectoris; J44.9 Chronic obstructive pulmonary disease, unspecified; K21.9 Gastro-esophageal reflux disease without esophagitis; Z87.891 Personal history of nicotine dependence; Z79.82 Long term (current) use of aspirin; Z79.899 Other long term (current) drug therapy; Z88.5 Allergy status to narcotic agent; Z88.6 Allergy status to analgesic agent; Z88.8 Allergy status to other drugs, medicaments and biological substances
CPT/HCPCS: 36415; 93005; 84439; 80053; 84443; 84484; 85025; 85610; 85730; 71046; 99285; 96374; J2270

== ENCOUNTER 2023-12-10 10:56 | Emergency (ER) | payer MEDICARE, OTHER ==
[2023-12-10 11:25] VITALS: RESP 18; TEMP 98
[2023-12-10] MEDS ORDERED: MORPHINE SULFATE 4 MG/ML SYRINGE IM STA (12:34)
--- NOTE | 2023-12-10 12:35 | ED ---
Extremity Problem HPI - General Chief complaint: Extremity Problem,Nontraumatic Stated complaint: left knee pain/swelling Source: patient Mode of arrival: ambulatory Limitations: no limitations - History of Present Illness Initial comments: The patient is a 68-year-old gentleman is limited to the emergency room for various pain complaints and presents emergency room for pain in the left knee. Patient had a knee replacement October 27. He states he has had pain down. Patient was in rehab for several weeks and discharged about 2 weeks ago. He states that he has not been pain-free since the surgery. Patient actually saw his solution specialist Dr. Vance this morning who wrote him for new pain medication and wrote him for physical therapy. Patient states that he switched him from Percocet to oxycodone 5 mg however he is still waiting for her to be filled so came here for the pain. He denies any falls or injuries. Denies any worsening swelling, redness or development of fevers. He is able to ambulate. Denies any calf pain redness or swelling. Denies any history of DVT or PE. - Related Data Home Medications Medication Instructions Recorded Confirmed tiZANidine [Zanaflex] 4 mg PO TID 02/26/18 10/27/23 oxyCODONE-APAP 10-325MG [Percocet 1 tab PO Q6H PRN 01/02/20 10/27/23 10-325 mg] Aspirin EC [Ecotrin Low Dose] 81 mg PO DAILY 04/23/23 10/27/23 Escitalopram [Lexapro] 10 mg PO DAILY 04/23/23 10/27/23 Folic Acid 1 mg PO DAILY 04/23/23 10/27/23 Pantoprazole Sodium [Protonix] 40 mg PO DAILY 04/23/23 10/27/23 Atorvastatin [Lipitor] 80 mg PO HS 06/27/23 10/27/23 Benzonatate [Tessalon Perle] 200 mg PO TID PRN 06/27/23 10/27/23 Dicyclomine [Bentyl] 20 mg PO TID 06/27/23 10/27/23 Ezetimibe [Zetia] 10 mg PO DAILY 06/27/23 10/27/23 Gabapentin [Neurontin] 400 mg PO TID 06/27/23 10/27/23 Morphine Sulfate ER [Ms Contin] 30 mg PO Q8H 10/22/23 10/27/23 Previous Rx's Medication Instructions Recorded amLODIPine [Norvasc] 10 mg PO DAILY #30 tab 04/26/23 hydrALAZINE HCL [Apresoline] 100 mg PO TID 30 Days #180 tab 06/29/23 methIMAzole [Tapazole] 5 mg PO TID #90 tablet 06/29/23 Isosorbide Mononitrate ER [Imdur] 30 mg PO DAILY #30 tab 07/23/23 Losartan-Hctz 50-12.5 mg [Hyzaar 1 each PO DAILY #30 tab 07/23/23 50-12.5] Metoprolol Tartrate [Lopressor] 100 mg PO BID #30 tab 07/23/23 Nitroglycerin Sl Tabs [Nitrostat] 0.4 mg SUBLINGUAL Q5M PRN #30 tab 07/23/23 cloNIDine HCL [Catapres] 0.2 mg PO BID #30 tab 07/23/23 Naproxen 250 mg PO BID #30 tablet 09/14/23 Apixaban [Eliquis] 2.5 mg PO BID #60 tab 10/29/23 Gabapentin [Neurontin] 400 mg PO TID #21 cap 10/29/23 Morphine Sulfate [Ms Contin] 30 mg PO Q8HR #12 tab 10/29/23 Sennosides/Docusate Sodium [Senna 1 each PO DAILY #20 capsule 10/29/23 Plus 8.6-50 mg Softgel] oxyCODONE HCL [oxyCODONE HCL (IR)] 20 mg PO Q6H #12 tab 10/29/23 Allergies Allergy/AdvReac Type Severity Reaction Status Date / Time codeine Allergy Itching Verified 12/10/23 11:26 ibuprofen [From Motrin] Allergy Rash/Hives Verified 12/10/23 11:26 ketorolac tromethamine Allergy Rash/Hives Verified 12/10/23 11:26 [From Toradol] Review of Systems ROS Statement: Those systems with pertinent positive or pertinent negative responses have been documented in the HPI. ROS Other: All systems not noted in ROS Statement are negative. Past Medical History Past Medical History: Coronary Artery Disease (CAD), Chest Pain / Angina, COPD, Deep Vein Thrombosis (DVT), GERD/Reflux, Hyperlipidemia, Hypertension, Osteoarthritis (OA), Thyroid Disorder Additional Past Medical History / Comment(s): Occasional palpitations, gastritis, small hiatal hernia, diverticular dx, pt states years ago he had PUD, chronic low back pain, chronic pain syndrome, migraines, DVT L arm, numbness/tingling bilateral lower legs, bilateral past R hand fracture, arthritis multiple joints, hyperthyroid, sinus problems. History of Any Multi-Drug Resistant Organisms: None Reported Past Surgical History: Back Surgery, Cholecystectomy, Heart Catheterization With Stent, Orthopedic Surgery Additional Past Surgical History / Comment(s): EGDs/colonoscopies, multiple low back surgeries, bilateral arm and bilateral thigh surgeries for brown recluse spider bites with infection, morphine pain pump insertion and removal due to infection, PCI with stents, L rotator cuff repair, L knee arthroscopy, cervical fusion/cage, R cataract removal. 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 states he was "down for 12 minutes" lower back surgery Date of Last Stent Placement:: 10/12/17 Past Psychological History: No Psychological Hx Reported Smoking Status: Former smoker Past Alcohol Use History: None Reported Past Drug Use History: None Reported - Past Family History Father Family Medical History: No Reported History Additional Family Medical History / Comment(s): Father had back problems. He lived to be 82 yrs old. Mother History Unknown: Yes Family Medical History: Hypertension, Myocardial Infarction ([place]) Additional Family Medical History / Comment(s): Mother of a [place] at the age of 55yrs. Brother(s) Family Medical History: Cancer, COPD Additional Family Medical History / Comment(s): Leukemia General Exam Limitations: no limitations General appearance: alert, in no apparent distress Head exam: Present: atraumatic Neck exam: Present: full ROM Extremities exam: Present: tenderness (Pain with the left anterior knee with mild swelling. No erythema or warmth. Compartments are soft. No signs of a septic joint compartment syndrome at this time. No pain over the calf.), other. Absent: full ROM Back exam: Present: full ROM Neurological exam: Present: alert, oriented X3, CN II-XII intact Psychiatric exam: Present: normal affect, normal mood Skin exam: Present: warm, dry Course Vital Signs 12/10/23 11:24 Temperature 98 F Pulse Rate 100 Respiratory 18 Rate Blood Pressure 160/67 O2 Sat by Pulse 98 Oximetry - Reevaluation(s) Reevaluation #1: 12/10/23 14:12 Patient is given IM morphine emergency room. A Lidoderm patch placed on any. Continued to have pain. 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 Melvin today. I discussed patient's symptoms workup and disposition with attending physician Dr. Lara today. Patient had an Ezra wrap applied to help with the patient and I discussed icing the knee. He is to continue with the physical therapy that this isn't prescribed by the solution specialist as well. Medical Decision Making - Medical Decision Making Was pt. sent in by a medical professional or institution (, PA, TECHNICAL INSTRUCTOR COURSE DEVELOPER, urgent care, hospital, or senior living...) When possible be specific @ -[No] Did you speak to anyone other than the patient for history (EMS, parent, family, police, friend...)? What history was obtained from this source @ -[No] Did you review nursing and triage notes (agree or disagree)? Why? @ -[I reviewed and agree with nursing and triage notes] Were old charts reviewed (outside hosp., previous admission, EMS record, old EKG, old radiological studies, urgent care reports/EKG's, senior living records)? Report findings @ -Yes old charts reviewed. Patient is here frequently for various pain complaints. He is well known to the emergency room. Differential Diagnosis (chest pain, altered mental status, abdominal pain women, abdominal pain men, vaginal bleeding, weakness, fever, dyspnea, syncope, headache, dizziness, GI bleed, back pain, seizure, CVA, palpatations, mental health, musculoskeletal)? @ -Postsurgical pain, chronic pain, knee effusion, DVT, drug-seeking behavior EKG interpreted by me (3pts min.). @ -[As above] X-rays interpreted by me (1pt min.). @ -Xray of the left knee shows a suprapatellar effusion, no fracture or acute changes of the hardware CT interpreted by me (1pt min.). @ -[None done] U/S interpreted by me (1pt. min.). @ -Ultrasound negative for any, suprapatellar effusion seen What testing was considered but not performed or refused? (CT, X-rays, U/S, labs)? Why? @ -[None] What meds were considered but not given or refused? Why? @ -[None] Did you discuss the management of the patient with other professionals (professionals i.e. , PA, TECHNICAL INSTRUCTOR COURSE DEVELOPER, lab, RT, psych nurse, public health social worker, scientific associate, teacher, real estate officer, correctional case manager)? Give summary @ -[No] Was smoking cessation discussed for >3mins.? @ -[No] Was critical care preformed (if so, how long)? @ -[No] Were there social determinants of health that impacted care today? How? (Homelessness, low income, unemployed, alcoholism, drug addiction, transportation, low edu. Level, literacy, decrease access to med. care, residential, rehab)? @ -[No] Was there de-escalation of care discussed even if they declined (Discuss DNR or withdrawal of care, Hospice)? DNR status @ -[No] What co-morbidities impacted this encounter? (DM, HTN, Smoking, COPD, CAD, Cancer, CVA, ARF, Chemo, Hep., AIDS, mental health diagnosis, sleep apnea, morbid obesity)? @ -[None] Was patient admitted / discharged? Hospital course, mention meds given and route, prescriptions, significant lab abnormalities, going to OR and other pertinent info. @ -[Patient is stable to follow up as an outpatient with Dr. Vance. This is an ongoing issue and chronic knee pain. He may use Motrin Tylenol as needed for an outpatient and continue the prescriptions prescribed by Dr. Vance including the oxycodone Undiagnosed new problem with uncertain prognosis? @ -[No] Drug Therapy requiring intensive monitoring for toxicity (Heparin, Nitro, Insulin, Cardizem)? @ -[No] Were any procedures done? @ -[No] Diagnosis/symptom? @ -[Chronic pain, left knee pain, left knee effusion, post surgical pain, suspe cted drug seeking behavior Acute, or Chronic, or Acute on Chronic? @ -chronic Uncomplicated (without systemic symptoms) or Complicated (systemic symptoms)? @ -[default] Side effects of treatment? @ -[No] Exacerbation, Progression, or Severe Exacerbation? @ -[No] Poses a threat to life or bodily function? How? (Chest pain, [place], [place], pneumonia, PE, COPD, DKA, ARF, appy, cholecystitis, CVA, Diverticulitis, Homicidal, Suicidal, threat to staff... and all critical care pts) @ -[No] - Radiology Data Radiology results: report reviewed, image reviewed Disposition Clinical Impression: Chronic pain, Left knee pain, Knee effusion, left Disposition: HOME SELF-CARE Condition: Good Is patient prescribed a controlled substance at d/c from ED?: No If prescribed controlled substance>3 days was MAPS reviewed?: No Referrals: None,Stated [Primary Care Provider] - 1-2 days Nelson Vance MD [STAFF PHYSICIAN] - 1-2 days Time of Disposition: 14:10
--- NOTE | 2023-12-10 12:59 | XR ---
EXAMINATION TYPE: XR knee complete LT DATE OF EXAM: 12/10/2023 COMPARISON: NONE HISTORY: Pain TECHNIQUE: Three views are submitted. FINDINGS: Post knee arthroplasty seen. There is diffuse osteopenia and soft tissue edema. Large suprapatellar b ursal fluid collection.. Osseous structures are intact. No acute fracture seen. IMPRESSION: 1. No acute fracture or dislocation. There is diffuse soft tissue edema and a large suprapatellar bu rsal fluid collection.
--- NOTE | 2023-12-10 13:41 | US ---
EXAMINATION TYPE: US venous doppler duplex LE LT DATE OF EXAM: 12/10/2023 1:30 PM COMPARISON: NONE CLINICAL INDICATION: Male, 68 years old with history of pain, swelling, recent surgery; Left leg pain and swelling follow knee replacement 1 month ago SIDE PERFORMED: Left TECHNIQUE: The lower extremity deep venous system is examined utilizing real time linear array sonog soren with graded compression, doppler sonography and color-flow sonography. VESSELS IMAGED: Common Femoral Vein Deep Femoral Vein Greater Saphenous Vein * Femoral Vein Popliteal Vein Small Saphenous Vein * Proximal Calf Veins (* superficial vessels) Left Leg: Appears negative for DVT IMPRESSION: Grayscale, color doppler, spectral doppler imaging performed of the deep veins of the lo wer extremities. There is normal flow, compressibility, vascular waveforms.
[2023-12-10] MEDS ORDERED: LIDOCAINE 4% PATCH TOPICAL ONE (13:59)
[2023-12-10 14:38] VITALS: BP 149/86; PULSE 90
== END 2023-12-10 14:22 | disposition home or self-care (01) ==
LOC: EC 10:56
DX: G89.18 Other acute postprocedural pain (principal); M25.462 Effusion, left knee; I10 Essential (primary) hypertension; I25.10 Atherosclerotic heart disease of native coronary artery without angina pectoris; J44.9 Chronic obstructive pulmonary disease, unspecified; E78.5 Hyperlipidemia, unspecified; M19.90 Unspecified osteoarthritis, unspecified site; K21.9 Gastro-esophageal reflux disease without esophagitis; Z79.82 Long term (current) use of aspirin; Z79.899 Other long term (current) drug therapy; Z88.5 Allergy status to narcotic agent; Z88.6 Allergy status to analgesic agent
CPT/HCPCS: 73562; 93971; 99284; 96372; J2270

== ENCOUNTER 2023-12-15 10:15 | Emergency (ER) | payer MEDICARE, OTHER ==
[2023-12-15 10:48] VITALS: BP 114/70; PULSE 69; RESP 18; TEMP 97.6
--- NOTE | 2023-12-15 10:56 | ED ---
General Adult HPI - General Chief complaint: Recheck/Abnormal Lab/Rx Stated complaint: L knee pain Time Seen by Provider: 12/15/23 10:35 Source: patient, RN notes reviewed, old records reviewed Mode of arrival: ambulatory Limitations: no limitations - History of Present Illness Initial comments: This is a 68-year-old male who presents to the emergency department for swollen left knee. Patient has been evaluated multiple times for the effusion. Patient has had CT x-ray and ultrasound the last month. Patient states has been no new injury or no new symptoms. Patient states she just wanted to come in and get some advice as to how we might decrease the swelling. Patient states he just saw orthopedics on Thursday and is scheduled to see them in 2 weeks. Patient denies any fever or chills - Related Data Home Medications Medication Instructions Recorded Confirmed tiZANidine [Zanaflex] 4 mg PO TID 02/26/18 10/27/23 oxyCODONE-APAP 10-325MG [Percocet 1 tab PO Q6H PRN 01/02/20 10/27/23 10-325 mg] Aspirin EC [Ecotrin Low Dose] 81 mg PO DAILY 04/23/23 10/27/23 Escitalopram [Lexapro] 10 mg PO DAILY 04/23/23 10/27/23 Folic Acid 1 mg PO DAILY 04/23/23 10/27/23 Pantoprazole Sodium [Protonix] 40 mg PO DAILY 04/23/23 10/27/23 Atorvastatin [Lipitor] 80 mg PO HS 06/27/23 10/27/23 Benzonatate [Tessalon Perle] 200 mg PO TID PRN 06/27/23 10/27/23 Dicyclomine [Bentyl] 20 mg PO TID 06/27/23 10/27/23 Ezetimibe [Zetia] 10 mg PO DAILY 06/27/23 10/27/23 Gabapentin [Neurontin] 400 mg PO TID 06/27/23 10/27/23 Morphine Sulfate ER [Ms Contin] 30 mg PO Q8H 10/22/23 10/27/23 Previous Rx's Medication Instructions Recorded amLODIPine [Norvasc] 10 mg PO DAILY #30 tab 04/26/23 hydrALAZINE HCL [Apresoline] 100 mg PO TID 30 Days #180 tab 06/29/23 methIMAzole [Tapazole] 5 mg PO TID #90 tablet 06/29/23 Isosorbide Mononitrate ER [Imdur] 30 mg PO DAILY #30 tab 07/23/23 Losartan-Hctz 50-12.5 mg [Hyzaar 1 each PO DAILY #30 tab 07/23/23 50-12.5] Metoprolol Tartrate [Lopressor] 100 mg PO BID #30 tab 07/23/23 Nitroglycerin Sl Tabs [Nitrostat] 0.4 mg SUBLINGUAL Q5M PRN #30 tab 07/23/23 cloNIDine HCL [Catapres] 0.2 mg PO BID #30 tab 07/23/23 Naproxen 250 mg PO BID #30 tablet 09/14/23 Apixaban [Eliquis] 2.5 mg PO BID #60 tab 10/29/23 Gabapentin [Neurontin] 400 mg PO TID #21 cap 10/29/23 Morphine Sulfate [Ms Contin] 30 mg PO Q8HR #12 tab 10/29/23 Sennosides/Docusate Sodium [Senna 1 each PO DAILY #20 capsule 10/29/23 Plus 8.6-50 mg Softgel] oxyCODONE HCL [oxyCODONE HCL (IR)] 20 mg PO Q6H #12 tab 10/29/23 Allergies Allergy/AdvReac Type Severity Reaction Status Date / Time codeine Allergy Itching Verified 12/15/23 10:22 ibuprofen [From Motrin] Allergy Rash/Hives Verified 12/15/23 10:22 ketorolac tromethamine Allergy Rash/Hives Verified 12/15/23 10:22 [From Toradol] Review of Systems ROS Statement: Those systems with pertinent positive or pertinent negative responses have been documented in the HPI. ROS Other: All systems not noted in ROS Statement are negative. Past Medical History Past Medical History: Coronary Artery Disease (CAD), Chest Pain / Angina, COPD, Deep Vein Thrombosis (DVT), GERD/Reflux, Hyperlipidemia, Hypertension, Osteoarthritis (OA), Thyroid Disorder Additional Past Medical History / Comment(s): Occasional palpitations, g astritis, small hiatal hernia, diverticular dx, pt states years ago he had PUD, chronic low back pain, chronic pain syndrome, migraines, DVT L arm, numbness/tingling bilateral lower legs, bilateral past R hand fracture, arthritis multiple joints, hyperthyroid, sinus problems. History of Any Multi-Drug Resistant Organisms: None Reported Past Surgical History: Back Surgery, Cholecystectomy, Heart Catheterization With Stent, Orthopedic Surgery Additional Past Surgical History / Comment(s): EGDs/colonoscopies, multiple low back surgeries, bilateral arm and bilateral thigh surgeries for brown recluse spider bites with infection, morphine pain pump insertion and removal due to infection, PCI with stents, L rotator cuff repair, L knee arthroscopy, cervical fusion/cage, R cataract removal. 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 states he was "down for 12 minutes" lower back surgery Date of Last Stent Placement:: 10/12/17 Past Psychological History: No Psychological Hx Reported Smoking Status: Former smoker Past Alcohol Use History: None Reported Past Drug Use History: None Reported - Past Family History Father Family Medical History: No Reported History Additional Family Medical History / Comment(s): Father had back problems. He lived to be 82 yrs old. Mother History Unknown: Yes Family Medical History: Hypertension, Myocardial Infarction ([place]) Additional Family Medical History / Comment(s): Mother of a [place] at the age of 55yrs. Brother(s) Family Medical History: Cancer, COPD Additional Family Medical History / Comment(s): Leukemia General Exam - General Exam Comments Initial Comments: GENERAL Patient is well-developed and well-nourished. Patient is in mild distress. EYES Patient's pupils are equal and round. Extraocular motion is intact SKIN Unremarkable NEURO The patient is alert and oriented x 3 PYSCH Patient has normal interpersonal interactions. MUSCULOSKELETAL Left knee has an effusion it is mildly tender to palpate there is no erythema. Limitations: no limitations Course Vital Signs 12/15/23 10:22 Temperature 97.6 F Pulse Rate 69 Respiratory 18 Rate Blood Pressure 114/70 O2 Sat by Pulse 96 Oximetry Medical Decision Making - Medical Decision Making Was pt. sent in by a medical professional or institution (, PA, PIT CLERK, urgent care, hospital, or [place] [facility] facility...) When possible be specific @ -No Did you speak to anyone other than the patient for history (EMS, parent, family, police, friend...)? What history was obtained from this source @ -No Did you review nursing and triage notes (agree or disagree)? Why? @ -I reviewed and agree with nursing and triage notes Were old charts reviewed (outside hosp., previous admission, EMS record, old EKG, old radiological studies, urgent care reports/EKG's, [place] [facility] facility records)? Report findings @ -I reviewed old charts and old radiological studies Differential Diagnosis (chest pain, altered mental status, abdominal pain women, abdominal pain men, vaginal bleeding, weakness, fever, dyspnea, syncope, headache, dizziness, GI bleed, back pain, seizure, CVA, palpatations, mental health, musculoskeletal)? @ -Differential Musculoskeletal Muscular strain, contusion, ligament sprain, fracture, arthritis, septic arthritis, bursitis, cellulitis, muscle spasm, nerve compression, DVT, arterial occlusion, herpes zoster, electrolyte abnormality, tumor.... This is not meant to be in all inclusive list EKG interpreted by me (3pts min.). @ -As above X-rays interpreted by me (1pt min.). @ -None done CT interpreted by me (1pt min.). @ -None done U/S interpreted by me (1pt. min.). @ -None done What testing was considered but not performed or refused? (CT, X-rays, U/S, labs)? Why? @ -None What meds were considered but not given or refused? Why? @ -None Did you discuss the management of the patient with other professionals (professionals i.e. , PA, PIT CLERK, lab, RT, psych nurse, social media developer, strip winder, teacher, command center officer, casey saw operator)? Give summary @ -No Was smoking cessation discussed for >3mins.? @ -No Was critical care preformed (if so, how long)? @ -No Were there social determinants of health that impacted care today? How? (Homelessness, low income, unemployed, alcoholism, drug addiction, transportation, low edu. Level, literacy, decrease access to med. care, shelter, rehab)? @ -No Was there de-escalation of care discussed even if they declined (Discuss DNR or withdrawal of care, Hospice)? DNR status @ -No What co-morbidities impacted this encounter? (DM, HTN, Smoking, COPD, CAD, Cancer, CVA, ARF, Chemo, Hep., AIDS, mental health diagnosis, sleep apnea, morbid obesity)? @ -None Was patient admitted / discharged? Hospital course, mention meds given and route, prescriptions, significant lab abnormalities, going to OR and other pertinent info. @ -Patient was not experiencing any new symptoms. Patient just wanted some advice as to how to keep the swelling down. I told the patient that he need to continue his anti-inflammatories keep the leg elevated use ice for couple of days. Patient should also stay off it is much as possible. Undiagnosed new problem with uncertain prognosis? @ -No Drug Therapy requiring intensive monitoring for toxicity (Heparin, Nitro, Insulin, Cardizem)? @ -No Were any procedures done? @ -No Diagnosis/symptom? @ -Knee effusion Acute, or Chronic, or Acute on Chronic? @ -Acute Uncomplicated (without systemic symptoms) or Complicated (systemic symptoms)? @ -Uncomplicated Side effects of treatment? @ -No Exacerbation, Progression, or Severe Exacerbation? @ -No Poses a threat to life or bodily function? How? (Chest pain, [place], [place], pneumonia, PE, COPD, DKA, ARF, appy, cholecystitis, CVA, Diverticulitis, Homicidal, Suicidal, threat to staff... and all critical care pts) @ -No Disposition Clinical Impression: Knee effusion Disposition: HOME SELF-CARE Condition: Good Instructions (If sedation given, give patient instructions): Swollen Knee Joint (ED) Additional Instructions: Patient should limit his walking on the knee. Patient should elevate the knee above his heart. Patient should take his anti-inflammatories. Patient should use ice 20 minutes on and 20 minutes off. Is patient prescribed a controlled substance at d/c from ED?: No Referrals: None,Stated [Primary Care Provider] - 1-2 days Time of Disposition: 10:55
== END 2023-12-15 11:12 | disposition home or self-care (01) ==
LOC: EC 10:15
DX: M25.462 Effusion, left knee (principal); E78.5 Hyperlipidemia, unspecified; I25.10 Atherosclerotic heart disease of native coronary artery without angina pectoris; I10 Essential (primary) hypertension; J44.9 Chronic obstructive pulmonary disease, unspecified; K21.9 Gastro-esophageal reflux disease without esophagitis; Z87.891 Personal history of nicotine dependence; Z79.899 Other long term (current) drug therapy; Z88.5 Allergy status to narcotic agent; Z88.6 Allergy status to analgesic agent
CPT/HCPCS: 99283

== ENCOUNTER 2023-12-16 03:24 | Emergency (ER) | payer MEDICARE, OTHER ==
[2023-12-16 03:50] VITALS: RESP 18
[2023-12-16] MEDS ORDERED: MORPHINE SULFATE 4 MG/ML SYRINGE IM STA (03:51)
--- NOTE | 2023-12-16 03:51 | ED ---
Extremity Problem HPI - General Chief complaint: Extremity Problem,Nontraumatic Stated complaint: Left knee swelling Time Seen by Provider: 12/16/23 03:30 Source: patient, EMS Mode of arrival: EMS Limitations: no limitations - History of Present Illness Initial comments: 68-year-old male well-known to the emergency department who presents today reporting left knee pain. States he had a knee replacement done in November. He continues to have chronic pain and swelling. Patient is on a pain contract at home however states that his home pain medications are not working. He presents to the ER requesting a pain shot. States that he has had multiple x-rays of the extremity as well as visits to his orthopedic office. Patient denies any fevers. No redness. No other alleviating, precipitating or modifying factors - Related Data Home Medications Medication Instructions Recorded Confirmed tiZANidine [Zanaflex] 4 mg PO TID 02/26/18 10/27/23 oxyCODONE-APAP 10-325MG [Percocet 1 tab PO Q6H PRN 01/02/20 10/27/23 10-325 mg] Aspirin EC [Ecotrin Low Dose] 81 mg PO DAILY 04/23/23 10/27/23 Escitalopram [Lexapro] 10 mg PO DAILY 04/23/23 10/27/23 Folic Acid 1 mg PO DAILY 04/23/23 10/27/23 Pantoprazole Sodium [Protonix] 40 mg PO DAILY 04/23/23 10/27/23 Atorvastatin [Lipitor] 80 mg PO HS 06/27/23 10/27/23 Benzonatate [Tessalon Perle] 200 mg PO TID PRN 06/27/23 10/27/23 Dicyclomine [Bentyl] 20 mg PO TID 06/27/23 10/27/23 Ezetimibe [Zetia] 10 mg PO DAILY 06/27/23 10/27/23 Gabapentin [Neurontin] 400 mg PO TID 06/27/23 10/27/23 Morphine Sulfate ER [Ms Contin] 30 mg PO Q8H 10/22/23 10/27/23 Previous Rx's Medication Instructions Recorded amLODIPine [Norvasc] 10 mg PO DAILY #30 tab 04/26/23 hydrALAZINE HCL [Apresoline] 100 mg PO TID 30 Days #180 tab 06/29/23 methIMAzole [Tapazole] 5 mg PO TID #90 tablet 06/29/23 Isosorbide Mononitrate ER [Imdur] 30 mg PO DAILY #30 tab 07/23/23 Losartan-Hctz 50-12.5 mg [Hyzaar 1 each PO DAILY #30 tab 07/23/23 50-12.5] Metoprolol Tartrate [Lopressor] 100 mg PO BID #30 tab 07/23/23 Nitroglycerin Sl Tabs [Nitrostat] 0.4 mg SUBLINGUAL Q5M PRN #30 tab 07/23/23 cloNIDine HCL [Catapres] 0.2 mg PO BID #30 tab 07/23/23 Naproxen 250 mg PO BID #30 tablet 09/14/23 Apixaban [Eliquis] 2.5 mg PO BID #60 tab 10/29/23 Gabapentin [Neurontin] 400 mg PO TID #21 cap 10/29/23 Morphine Sulfate [Ms Contin] 30 mg PO Q8HR #12 tab 10/29/23 Sennosides/Docusate Sodium [Senna 1 each PO DAILY #20 capsule 10/29/23 Plus 8.6-50 mg Softgel] oxyCODONE HCL [oxyCODONE HCL (IR)] 20 mg PO Q6H #12 tab 10/29/23 Allergies Allergy/AdvReac Type Severity Reaction Status Date / Time codeine Allergy Itching Verified 12/16/23 03:32 ibuprofen [From Motrin] Allergy Rash/Hives Verified 12/16/23 03:32 ketorolac tromethamine Allergy Rash/Hives Verified 12/16/23 03:32 [From Toradol] Review of Systems ROS Statement: Those systems with pertinent positive or pertinent negative responses have been documented in the HPI. ROS Other: All systems not noted in ROS Statement are negative. Past Medical History Past Medical History: Coronary Artery Disease (CAD), Chest Pain / Angina, COPD, Deep Vein Thrombosis (DVT), GERD/Reflux, Hyperlipidemia, Hypertension, Osteoarthritis (OA), Thyroid Disorder Additional Past Medical History / Comment(s): Occasional palpitations, gastritis, small hiatal hernia, diverticular dx, pt states years ago he had PUD, chronic low back pain, chronic pain syndrome, migraines, DVT L arm, numbness/tingling bilateral lower legs, bilateral past R hand fracture, arthritis multiple joints, hyperthyroid, sinus problems. History of Any Multi-Drug Resistant Organisms: None Reported Past Surgical History: Back Surgery, Cholecystectomy, Heart Catheterization With Stent, Orthopedic Surgery Additional Past Surgical History / Comment(s): EGDs/colonoscopies, multiple low back surgeries, bilateral arm and bilateral thigh surgeries for brown recluse spider bites with infection, morphine pain pump insertion and removal due to infection, PCI with stents, L rotator cuff repair, L knee arthroscopy, cervical fusion/cage, R cataract removal. 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 states he was "down for 12 minutes" lower back surgery Date of Last Stent Placement:: 10/12/17 Past Psychological History: No Psychological Hx Reported Smoking Status: Former smoker Past Alcohol Use History: None Reported Past Drug Use History: None Reported - Past Family History Father Family Medical History: No Reported History Additional Family Medical History / Comment(s): Father had back problems. He lived to be 82 yrs old. Mother History Unknown: Yes Family Medical History: Hypertension, Myocardial Infarction ([place]) Additional Family Medical History / Comment(s): Mother of a [place] at the age of 55yrs. Brother(s) Family Medical History: Cancer, COPD Additional Family Medical History / Comment(s): Leukemia General Exam Limitations: no limitations General appearance: alert, in no apparent distress Head exam: Present: atraumatic, normocephalic, normal inspection Extremities exam: Present: tenderness, joint swelling (Patient does have visible swelling to the left knee. There is an anterior well-healed surgical incision. No redness appreciated. Patient does have some normal range of motion without pain in the left knee. 2+ DP and PT pulses) Course Vital Signs 12/16/23 12/16/23 03:26 04:25 Temperature 98.4 F 98.0 F Pulse Rate 78 80 Respiratory 18 18 Rate Blood Pressure 168/90 143/86 O2 Sat by Pulse 97 95 Oximetry Medical Decision Making - Medical Decision Making Was pt. sent in by a medical professional or institution (, PA, STOCKROOM KEEPER, urgent care, hospital, or detention...) When possible be specific @ -No Did you speak to anyone other than the patient for history (EMS, parent, family, police, friend...)? What history was obtained from this source @ -EMS Did you review nursing and triage notes (agree or disagree)? Why? @ -I reviewed and agree with nursing and triage notes Were old charts reviewed (outside hosp., previous admission, EMS record, old EKG, old radiological studies, urgent care reports/EKG's, detention records)? Report findings @I reviewed the patient's procedure note from October for his knee replacement Differential Diagnosis (chest pain, altered mental status, abdominal pain women, abdominal pain men, vaginal bleeding, weakness, fever, dyspnea, syncope, headache, dizziness, GI bleed, back pain, seizure, CVA, palpatations, mental health, musculoskeletal)? @ -Differential Musculoskeletal Muscular strain, contusion, ligament sprain, fracture, arthritis, septic arthritis, bursitis, cellulitis, muscle spasm, nerve compression, DVT, arterial occlusion, herpes zoster, electrolyte abnormality, tumor.... This is not meant to be in all inclusive list EKG interpreted by me (3pts min.). @ -Not done X-rays interpreted by me (1pt min.). @ -Not done CT interpreted by me (1pt min.). @ -None done U/S interpreted by me (1pt. min.). @ -None done What testing was considered but not performed or refused? (CT, X-rays, U/S, labs)? Why? @ -X-ray was considered however patient refused What meds were considered but not given or refused? Why? @ -None Did you discuss the management of the patient with other professionals (professionals i.e. , PA, STOCKROOM KEEPER, lab, RT, psych nurse, transition social worker, senior product integrity engineer, teacher, jail officer, returned case inspector)? Give summary @ -No Was smoking cessation discussed for >3mins.? @ -No Was critical care preformed (if so, how long)? @ -No Were there social determinants of health that impacted care today? How? (Homelessness, low income, unemployed, alcoholism, drug addiction, transportation, low edu. Level, literacy, decrease access to med. care, custodial, rehab)? @ -No Was there de-escalation of care discussed even if they declined (Discuss DNR or withdrawal of care, Hospice)? DNR status @ -No What co-morbidities impacted this encounter? (DM, HTN, Smoking, COPD, CAD, Cancer, CVA, ARF, Chemo, Hep., AIDS, mental health diagnosis, sleep apnea, morbid obesity)? @ -Chronic pain in a pain contract Was patient admitted / discharged? Hospital course, mention meds given and route, prescriptions, significant lab abnormalities, going to OR and other pertinent info. @ -Discharge. Upon arrival patient was seen in room 28. Thorough history and physical exam was performed. I did offer x-ray however patient states he has had several x-rays of his knee because of the same complaint. He is refusing x- ray. He is requesting a pain shot. This is provided to the patient. Instructed that he needs to take his home pain medications and follow-up with his orthopedist for any further pain management. Undiagnosed new problem with uncertain prognosis? @ -No Drug Therapy requiring intensive monitoring for toxicity (Heparin, Nitro, Insulin, Cardizem)? @ -No Were any procedures done? @ -No Diagnosis/symptom? @ -Acute exacerbation of left knee pain Acute, or Chronic, or Acute on Chronic? @ -Acute Uncomplicated (without systemic symptoms) or Complicated (systemic symptoms)? @ -Uncomplicated Side effects of treatment? @ -No Exacerbation, Progression, or Severe Exacerbation? @ -Yes Poses a threat to life or bodily function? How? (Chest pain, [place], [place], pneumonia, PE, COPD, DKA, ARF, appy, cholecystitis, CVA, Diverticulitis, Homicidal, Suicidal, threat to staff... and all critical care pts) @ -No Disposition Clinical Impression: Leg edema, Left knee pain Disposition: HOME SELF-CARE Condition: Stable Instructions (If sedation given, give patient instructions): Knee Pain (ED) Additional Instructions: Please call Dr. Vance for further management of your pain Is patient prescribed a controlled substance at d/c from ED?: No Referrals: None,Stated [Primary Care Provider] - 1-2 days Nelson Vance MD [STAFF PHYSICIAN] - 1-2 days Time of Disposition: 03:51
[2023-12-16 04:38] VITALS: BP 143/86; PULSE 80; TEMP 98
== END 2023-12-16 04:48 | disposition home or self-care (01) ==
LOC: EC 03:24
DX: M25.562 Pain in left knee (principal); I25.10 Atherosclerotic heart disease of native coronary artery without angina pectoris; J44.9 Chronic obstructive pulmonary disease, unspecified; K21.9 Gastro-esophageal reflux disease without esophagitis; E78.5 Hyperlipidemia, unspecified; I10 Essential (primary) hypertension; M19.90 Unspecified osteoarthritis, unspecified site; Z87.891 Personal history of nicotine dependence; Z79.82 Long term (current) use of aspirin; Z79.899 Other long term (current) drug therapy; Z79.1 Long term (current) use of non-steroidal anti-inflammatories (NSAID); Z88.5 Allergy status to narcotic agent; Z88.6 Allergy status to analgesic agent
CPT/HCPCS: 99284; 96372; J2270

== ENCOUNTER 2023-12-27 00:44 | Observation (INO) | payer MEDICARE, OTHER ==
[2023-12-27] MEDS ORDERED: ASPIRIN 81 MG PO STA (01:40)
[2023-12-27 02:31] LABS: ALT 9 U/L (4-49); AST 15 U/L (17-59); African American GFR (CKD) >90 (>60 ml/min/1.73 sqM); Albumin 4.5 g/dL (3.5-5.0); Alkaline Phosphatase 73 U/L (38-126); Anion Gap 10 mmol/L; Blood Urea Nitrogen 13 mg/dL (9-20); Calcium 9.4 mg/dL (8.4-10.2); Carbon Dioxide 23 mmol/L (22-30); Chloride 105 mmol/L (98-107); Glucose 107 mg/dL (74-99); Magnesium 1.8 mg/dL (1.6-2.3); Non-African American GFR(CKD) >90 (>60 ml/min/1.73 sqM); Potassium 3.5 mmol/L (3.5-5.1); Sodium 138 mmol/L (137-145); Total Bilirubin 0.5 mg/dL (0.2-1.3); Total Protein 7.3 g/dL (6.3-8.2)
[2023-12-27 02:33] LABS: Partial Thromboplastin Time 24.1 sec (22.0-30.0); Prothrombin Time 10.6 sec (10.0-12.5)
[2023-12-27 02:40] LABS: NT-Pro-B-Type Natriuretic Pept 40 pg/mL
[2023-12-27] MEDS ORDERED: ACETAMINOPHEN TAB 500 MG TAB PO STA (02:45)
[2023-12-27 02:56] LABS: Basophils % (A) 0 %; Eosinophils % (A) 1 %; HCT 32.2 % (39.0-53.0); HGB 10.3 gm/dL (13.0-17.5); Lymphocytes # (A) 1.6 k/uL (1.0-4.8); Lymphocytes % (A) 34 %; MCH 29.4 pg (25.0-35.0); MCV 91.9 fL (80.0-100.0); Mean Platelet Volume 7.5; Monocytes # (A) 0.4 k/uL (0-1.0); Monocytes % (A) 8 %; Neutrophils # (A) 2.5 k/uL (1.3-7.7); Neutrophils % (A) 53 %; Platelet Count 616 k/uL (150-450); RBC 3.51 m/uL (4.30-5.90); RDW 15.6 % (11.5-15.5); WBC 4.7 k/uL (3.8-10.6)
--- NOTE | 2023-12-27 03:24 | ED ---
Chest Pain HPI - General Chief Complaint: Chest Pain Stated Complaint: chest pain Time Seen by Provider: 12/27/23 01:04 Source: patient Mode of arrival: ambulatory Limitations: no limitations - History of Present Illness Initial Comments: 68-year-old male with a past medical history significant for hypertension, hyperlipidemia, coronary artery disease with previous stenting presenting to the ED with a chief complaint of chest pain. Patient states that around 930 today while watching basketball started to experience left-sided chest pain. Patient states pain that radiates to the left side of his jaw and to his left arm. Notes some associated shortness of breath and some nausea with this as well. Patient reports that he took 3 nitro prior to arrival which she reports did not resolve his chest pain. Now notes some headache after taking nitro. Denies abdominal pain. No other complaints at this time. - Related Data Home Medications Medication Instructions Recorded Confirmed tiZANidine [Zanaflex] 4 mg PO TID 02/26/18 10/27/23 oxyCODONE-APAP 10-325MG [Percocet 1 tab PO Q6H PRN 01/02/20 10/27/23 10-325 mg] Aspirin EC [Ecotrin Low Dose] 81 mg PO DAILY 04/23/23 10/27/23 Escitalopram [Lexapro] 10 mg PO DAILY 04/23/23 10/27/23 Folic Acid 1 mg PO DAILY 04/23/23 10/27/23 Pantoprazole Sodium [Protonix] 40 mg PO DAILY 04/23/23 10/27/23 Atorvastatin [Lipitor] 80 mg PO HS 06/27/23 10/27/23 Benzonatate [Tessalon Perle] 200 mg PO TID PRN 06/27/23 10/27/23 Dicyclomine [Bentyl] 20 mg PO TID 06/27/23 10/27/23 Ezetimibe [Zetia] 10 mg PO DAILY 06/27/23 10/27/23 Gabapentin [Neurontin] 400 mg PO TID 06/27/23 10/27/23 Morphine Sulfate ER [Ms Contin] 30 mg PO Q8H 10/22/23 10/27/23 Previous Rx's Medication Instructions Recorded amLODIPine [Norvasc] 10 mg PO DAILY #30 tab 04/26/23 hydrALAZINE HCL [Apresoline] 100 mg PO TID 30 Days #180 tab 06/29/23 methIMAzole [Tapazole] 5 mg PO TID #90 tablet 06/29/23 Isosorbide Mononitrate ER [Imdur] 30 mg PO DAILY #30 tab 07/23/23 Losartan-Hctz 50-12.5 mg [Hyzaar 1 each PO DAILY #30 tab 07/23/23 50-12.5] Metoprolol Tartrate [Lopressor] 100 mg PO BID #30 tab 07/23/23 Nitroglycerin Sl Tabs [Nitrostat] 0.4 mg SUBLINGUAL Q5M PRN #30 tab 07/23/23 cloNIDine HCL [Catapres] 0.2 mg PO BID #30 tab 07/23/23 Naproxen 250 mg PO BID #30 tablet 09/14/23 Apixaban [Eliquis] 2.5 mg PO BID #60 tab 10/29/23 Gabapentin [Neurontin] 400 mg PO TID #21 cap 10/29/23 Morphine Sulfate [Ms Contin] 30 mg PO Q8HR #12 tab 10/29/23 Sennosides/Docusate Sodium [Senna 1 each PO DAILY #20 capsule 10/29/23 Plus 8.6-50 mg Softgel] oxyCODONE HCL [oxyCODONE HCL (IR)] 20 mg PO Q6H #12 tab 10/29/23 Allergies Allergy/AdvReac Type Severity Reaction Status Date / Time codeine Allergy Itching Verified 12/27/23 00:47 ibuprofen [From Motrin] Allergy Rash/Hives Verified 12/27/23 00:47 ketorolac tromethamine Allergy Rash/Hives Verified 12/27/23 00:47 [From Toradol] Review of Systems ROS Statement: Those systems with pertinent positive or pertinent negative responses have been documented in the HPI. ROS Other: All systems not noted in ROS Statement are negative. Past Medical History Past Medical History: Coronary Artery Disease (CAD), Chest Pain / Angina, COPD, Deep Vein Thrombosis (DVT), GERD/Reflux, Hyperlipidemia, Hypertension, Osteoarthritis (OA), Thyroid Disorder Additional Past Medical History / Comment(s): Occasional palpitations, gastritis, small hiatal hernia, diverticular dx, pt states years ago he had PUD, chronic low back pain, chronic pain syndrome, migraines, DVT L arm, numbness/tingling bilateral lower legs, bilateral past R hand fracture, arthritis multiple joints, hyperthyroid, sinus problems. History of Any Multi-Drug Resistant Organisms: None Reported Past Surgical History: Back Surgery, Cholecystectomy, Heart Catheterization With Stent, Orthopedic Surgery Additional Past Surgical History / Comment(s): EGDs/colonoscopies, multiple low back surgeries, bilateral arm and bilateral thigh surgeries for brown recluse spider bites with infection, morphine pain pump insertion and removal due to infection, PCI with stents, L rotator cuff repair, L knee arthroscopy, cervical fusion/cage, R cataract removal. 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 states he was "down for 12 minutes" lower back surgery Date of Last Stent Placement:: 10/12/17 Past Psychological History: No Psychological Hx Reported Smoking Status: Former smoker Past Alcohol Use History: None Reported Past Drug Use History: None Reported - Past Family History Father Family Medical History: No Reported History Additional Family Medical History / Comment(s): Father had back problems. He lived to be 82 yrs old. Mother History Unknown: Yes Family Medical History: Hypertension, Myocardial Infarction ([place]) Additional Family Medical History / Comment(s): Mother of a [place] at the age of 55yrs. Brother(s) Family Medical History: Cancer, COPD Additional Family Medical History / Comment(s): Leukemia General Exam Limitations: no limitations General appearance: alert, in no apparent distress Eye exam: Present: normal appearance Neck exam: Present: normal inspection Respiratory exam: Present: normal lung sounds bilaterally Cardiovascular Exam: Present: tachycardia Back exam: Present: normal inspection Neurological exam: Present: alert, oriented X3 Skin exam: Present: warm, dry Course Vital Signs 12/27/23 12/27/23 12/27/23 00:46 01:24 02:17 Temperature 98.2 F Pulse Rate 122 H 104 H 107 H Respiratory 20 20 19 Rate Blood Pressure 191/92 173/95 174/107 O2 Sat by Pulse 99 99 99 Oximetry Chest Pain MDM - MDM Was pt. sent in by a medical professional or institution (, PA, RAND BUTTING MACHINE OPERATOR, urgent care, hospital, or long term...) When possible be specific @ -No Did you speak to anyone other than the patient for history (EMS, parent, family, police, friend...)? What history was obtained from this source @ -No Did you review nursing and triage notes (agree or disagree)? Why? @ -I reviewed and agree with nursing and triage notes Were old charts reviewed (outside hosp., previous admission, EMS record, old EKG, old radiological studies, urgent care reports/EKG's, long term records)? Report findings @ -No old charts were reviewed Differential Diagnosis (chest pain, altered mental status, abdominal pain women, abdominal pain men, vaginal bleeding, weakness, fever, dyspnea, syncope, headache, dizziness, GI bleed, back pain, seizure, CVA, palpatations, mental health, musculoskeletal)? @ -Differential Chest Pain: Stable Angina, Unstable Angina, STEMI, NSTEMI Aortic Dissection, Pneumothorax, Musculoskeletal, Esophageal Spasm GERD, Cholecystitis, Pancreatitis, Zoster, this is not meant to be an all-inclusive list. EKG interpreted by me (3pts min.). @ -EKG interpreted by me showing a sinus tachycardia [address] and T wave changes. OR 161, QRS 99, QT/QTc 341/408. X-rays interpreted by me (1pt min.). @ -Chest x-ray interpreted by me showing no evidence of acute finding CT interpreted by me (1pt min.). @ -CT angio of the chest interpreted by me showing no evidence of PE or other acute finding. U/S interpreted by me (1pt. min.). @ -None done What testing was considered but not performed or refused? (CT, X-rays, U/S, labs)? Why? @ -None What meds were considered but not given or refused? Why? @ -None Did you discuss the management of the patient with other professionals (professionals i.e. , PA, RAND BUTTING MACHINE OPERATOR, lab, RT, psych nurse, social services manager, butcher head, teacher, precinct commanding officer, transplant case manager)? Give summary @ -No Was smoking cessation discussed for >3mins.? @ -No Was critical care preformed (if so, how long)? @ -No Were there social determinants of health that impacted care today? How? (Homelessness, low income, unemployed, alcoholism, drug addiction, transportation, low edu. Level, literacy, decrease access to med. care, half-way, rehab)? @ -No Was there de-escalation of care discussed even if they declined (Discuss DNR or withdrawal of care, Hospice)? DNR status @ -No What co-morbidities impacted this encounter? (DM, HTN, Smoking, COPD, CAD, Cancer, CVA, ARF, Chemo, Hep., AIDS, mental health diagnosis, sleep apnea, morbid obesity)? @ -Hypertension, hyperlipidemia, coronary artery disease status post stenting Was patient admitted / discharged? Hospital course, mention meds given and route, prescriptions, significant lab abnormalities, going to OR and other pertinent info. 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 Laboratory studies reviewed. CBC shows a hemoglobin 10.3, coagulation panel significant for D-dimer 1.62, chemistry panel largely unremarkable. Initial troponin less than 0.012. BNP 40. Chest x-ray at this time revealed no evidence of acute finding. CT of the chest revealed no evidence of PE or other acute finding. At this time, patient continues to complain of pain. Patient will be admitted to observation with consult to cardiology to rule out ACS. Discussed plan of care with patient who is in agreement. Undiagnosed new problem with uncertain prognosis? @ -No Drug Therapy requiring intensive monitoring for toxicity (Heparin, Nitro, Insulin, Cardizem)? @ -No Were any procedures done? @ -No Diagnosis/symptom? @ -Chest pain Acute, or Chronic, or Acute on Chronic? @ -Acute Uncomplicated (without systemic symptoms) or Complicated (systemic symptoms)? @ -Uncomplicated Side effects of treatment? @ -No Exacerbation, Progression, or Severe Exacerbation? @ -No Poses a threat to life or bodily function? How? (Chest pain, [place], [place], pneumonia, PE, COPD, DKA, ARF, appy, cholecystitis, CVA, Diverticulitis, Homicidal, Suicidal, threat to staff... and all critical care pts) @ -Possibly, chest pain Disposition Clinical Impression: Chest pain Disposition: ADMITTED IP TO THIS [facility] Condition: Good Referrals: None,Stated [Primary Care Provider] - 1-2 days Time of Disposition: 04:01
--- NOTE | 2023-12-27 03:40 | CT ---
EXAM: CT Angiography Chest With Intravenous Contrast CLINICAL HISTORY: ITS.REASON CT Reason: r/o pe TECHNIQUE: Axial computed tomographic angiography images of the chest with intravenous contrast. CTDI is 25.6 mGy and DLP is 534.6 mGy-cm. This CT exam was performed using one or more of the following dose reduction techniques: automated exposure control, adjustment of the mA and/or kV according to patient size, and/or use of iterative reconstruction technique. MIP reconstructed images were created and reviewed. COMPARISON: 01/05/2022 FINDINGS: Pulmonary arteries: Unremarkable. No CT evidence of pulmonary embolism. Aorta: Ectasia of the proximal descending thoracic aorta measuring up to 3.6 cm without aneurysmal dilatation. Lungs: Lungs demonstrate bilateral dependent atelectasis. No mass. Pleural space: Unremarkable. No significant effusion. No pneumothorax. Heart: Unremarkable. No cardiomegaly. No significant pericardial effusion. No evidence of RV dysfunction. Bones/joints: No acute fracture. No dislocation. Soft tissues: Unremarkable. Lymph nodes: Unremarkable. No enlarged lymph nodes. Liver: Several low densities in the dome of the left lobe the liver measuring up to 0.7 cm consistent with simple cysts. Gallbladder and bile ducts: Gallbladder has been removed. IMPRESSION: No CT evidence of pulmonary embolism.
--- NOTE | 2023-12-27 03:48 | XR ---
EXAM: XR Chest, 2 Views CLINICAL HISTORY: ITS.REASON XR Reason: Chest Pain TECHNIQUE: Frontal and lateral views of the chest. COMPARISON: No relevant prior studies available. FINDINGS: Lungs: Unremarkable. No consolidation. Pleural space: Unremarkable. No pneumothorax. No pleural effusions. Heart: Unremarkable. No cardiomegaly. Mediastinum: Unremarkable. Normal mediastinal contour. Bones/joints: No acute osseous abnormalities. IMPRESSION: No acute cardiopulmonary disease.
[2023-12-27] MEDS ORDERED: ONDANSETRON 4 MG/2 ML VIAL IVP STA (03:57)
[2023-12-27] MEDS ORDERED: NALOXONE 0.4 MG/ML 1 ML VIAL IV PRN (04:01)
[2023-12-27] MEDS ORDERED: ACETAMINOPHEN TAB 325 MG TAB PO PRN (04:01)
[2023-12-27] MEDS ORDERED: ONDANSETRON 4 MG/2 ML VIAL IVP PRN (04:01)
[2023-12-27] MEDS ORDERED: SODIUM CHLORIDE 0.9% 1,000 ML IV SCH (04:15)
[2023-12-27] MEDS: MORPHINE SULFATE ER 30 MG TABLET PO SCH ×2 (04:26→11:31)
[2023-12-27] MEDS: hydrALAZINE HCL 50 MG TAB PO SCH ×3 (06:35→20:45)
[2023-12-27] MEDS: METOPROLOL TARTRATE 50 MG TAB PO SCH ×2 (06:36→20:44)
[2023-12-27] MEDS: oxyCODONE-APAP 10-325MG 1 EACH TAB PO PRN ×3 (06:36→19:57)
[2023-12-27] MEDS: amLODIPine 10 MG TAB PO SCH (13:02)
[2023-12-27] MEDS: ISOSORBIDE MONONITRATE ER 30 MG TAB.ER.24H PO SCH (13:02)
[2023-12-27] MEDS: LOSARTAN 50 MG TAB PO SCH (17:46)
--- NOTE | 2023-12-27 18:46 | P.CRDCN ---
History of Present Illness Consult date: 12/27/23 Consult reason: chest pain Chief complaint: Chest pain History of present illness: History of present illness: Patient is a pleasant 68-year-old male with significant past medical history of hypertension, hyperlipidemia, CAD with previous PCI, hyperthyroidism who presented to the emergency department with complaints of chest pain. He reports that he was watching television around 9:30 PM last night when he developed chest pain, diaphoresis, nausea, left jaw pain, and left arm pain. He did take 3 nitro at that time with no relief and got a severe headache. He does follow with Dr. Go in the office. He had a prior left heart cath 06/2023 for chest pain which showed patent LAD and diagonal stents no intervention was done. Blood pressure has been significantly elevated. He is not exactly sure what medications he is taking and reports that he is taking what ever [facility] sent him home with. He did have a recent knee surgery in October 2023. Labs reviewed: Hemoglobin 10.3, potassium 3.5, creatinine 0.76, BNP 4 0, troponin negative x 3. CTA chest was negative for PE. Left lower extremity ultrasound was negative for a DVT. He is still having constant chest pains. REVIEW OF SYSTEMS: No fever or chills. No cough or expectoration. No diaphoresis. Patient denies headache, dizziness, blurred vision, double vision. Patient denies any stomach discomfort. No nausea, vomiting. No hematochezia. No hematemesis. Denies any black stools or blood in his stools. Denies dysuria or hematuria. No muscle weakness or numbness. Reports chest pain and pressure. PHYSICAL EXAMINATION: This is a 68-year-old male in no apparent distress at the time of my examination. HEENT: Head is atraumatic, normocephalic. Pupils are equal, round. Sclerae anicteric. Conjunctivae are clear. Mucous membranes of the mouth are moist. + Neck swelling/nodules. There is no jugular venous distention. No carotid bruit is heard. CHEST EXAMINATION: Lungs are clear to auscultation. No chest wall tenderness is noted on palpation or with deep breathing. HEART EXAMINATION: Heart regular rate and rhythm. S1, S2 heard. No murmurs, gallops or rub. ABDOMEN: Soft, nontender. Bowel sounds are heard. EXTREMITIES: 2+ peripheral pulses with no evidence of peripheral edema and no calf tenderness noted. NEUROLOGIC EXAMINATION: Patient is awake, alert and oriented x3. IMPRESSION AND PLAN: CAD s/p PCI Hypertension Hyperlipidemia Hyperthyoidism Chest pain PLAN: We will check Lexiscan stress test as he had recent knee surgery and is unable to do the treadmill to rule out inducible ischemia. Resume home blood pressure medications for better blood pressure control. Continue to monitor blood pressure. DC IV fluids. Check TSH. Resume Imdur. We will follow. I am dictating on behalf of Dr. Giovanni Bush's history/physical and assessment/plan. Past Medical History Past Medical History: Coronary Artery Disease (CAD), Chest Pain / Angina, Deep Vein Thrombosis (DVT), GERD/Reflux, Hyperlipidemia, Hypertension, Osteoarthritis (OA), Thyroid Disorder Additional Past Medical History / Comment(s): Occasional palpitations, gastritis, small hiatal hernia, diverticular dx, pt states years ago he had PUD, chronic low back pain, chronic pain syndrome, migraines, DVT L arm, numbness/tingling bilateral lower legs, bilateral past R hand fracture, arthritis multiple joints, hyperthyroid, sinus problems. History of Any Multi-Drug Resistant Organisms: None Reported Past Surgical History: Back Surgery, Cholecystectomy, Heart Catheterization With Stent, Orthopedic Surgery Additional Past Surgical History / Comment(s): EGDs/colonoscopies, multiple low back surgeries, bilateral arm and bilateral thigh surgeries for brown recluse spider bites with infection, morphine pain pump insertion and removal due to infection, PCI with stents, L rotator cuff repair, L knee arthroscopy, cervical fusion/cage, R cataract removal.left knee replacement 10/27/2023 Past Anesthesia/Blood Transfusion Reactions: No Reported Reaction Additional Past Anesthesia/Blood Transfusion Reaction / Comment(s): 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 states he was "down for 12 minutes" lower back surgery Date of Last Stent Placement:: 10/12/17 Past Psychological History: Anxiety Additional Psychological History / Comment(s): He uses a cane and walker to ambulate. He does not drive Smoking Status: Former smoker Past Alcohol Use History: None Reported Additional Past Alcohol Use History / Comment(s): Pt started amoking in 1973 and quit in 1985 Past Drug Use History: None Reported - Past Family History Father Family Medical History: No Reported History Additional Family Medical History / Comment(s): Father had back problems. He lived to be 82 yrs old. Mother History Unknown: Yes Family Medical History: Hypertension, Myocardial Infarction ([place]) Additional Family Medical History / Comment(s): Mother of a [place] at the age of 55yrs. Brother(s) Family Medical History: Cancer, COPD Additional Family Medical History / Comment(s): Leukemia Medications and Allergies Home Medications Medication Instructions Recorded Confirmed Type tiZANidine [Zanaflex] 4 mg PO BID 02/26/18 12/27/23 History oxyCODONE-APAP 10-325MG [Percocet 1 tab PO BID PRN 01/02/20 12/27/23 History 10-325 mg] Aspirin EC [Ecotrin Low Dose] 81 mg PO DAILY 04/23/23 12/27/23 History Folic Acid 1 mg PO DAILY 04/23/23 12/27/23 History Gabapentin [Neurontin] 400 mg PO TID 06/27/23 12/27/23 History Nitroglycerin Sl Tabs [Nitrostat] 0.4 mg SUBLINGUAL Q5M PRN #30 tab 07/23/23 12/27/23 Rx Morphine Sulfate ER [Ms Contin] 30 mg PO DAILY 10/22/23 12/27/23 History oxyCODONE HCL [oxyCODONE HCL (IR)] 10 mg PO BID 12/27/23 12/27/23 History Allergies Allergy/AdvReac Type Severity Reaction Status Date / Time codeine Allergy Itching Verified 12/27/23 00:47 ibuprofen [From Motrin] Allergy Rash/Hives Verified 12/27/23 00:47 ketorolac tromethamine Allergy Rash/Hives Verified 12/27/23 00:47 [From Toradol] Physical Exam Vitals: Vital Signs Temp Pulse Pulse Resp BP BP BP 12/27/23 11:36 162/102 12/27/23 08:20 172/94 12/27/23 08:00 98.2 F 92 18 193/117 12/27/23 06:00 97.3 F L 90 16 177/107 12/27/23 04:29 90 16 137/90 12/27/23 02:17 107 H 19 174/107 12/27/23 01:24 104 H 20 173/95 12/27/23 00:46 98.2 F 122 H 20 191/92 Pulse Ox 12/27/23 11:36 12/27/23 08:20 12/27/23 08:00 100 12/27/23 06:00 100 12/27/23 04:29 98 12/27/23 02:17 99 12/27/23 01:24 99 12/27/23 00:46 99 Intake and Output 12/26/23 12/27/23 12/27/23 22:59 06:59 14:59 Other: # Voids 1 0 Weight 82.554 kg Results 12/27/23 01:45 12/27/23 01:45 Cardiac Enzymes 12/27/23 12/27/23 12/27/23 Range/Units 01:45 01:45 06:18 AST 15 L (17-59) U/L Troponin I <0.012 0.024 (0.000-0.034) ng/mL 12/27/23 Range/Units 08:23 AST (17-59) U/L Troponin I 0.022 (0.000-0.034) ng/mL Coagulation 12/27/23 Range/Units 01:45 PT 10.6 (10.0-12.5) sec APTT 24.1 (22.0-30.0) sec CBC 12/27/23 Range/Units 01:45 WBC 4.7 (3.8-10.6) k/uL RBC 3.51 L (4.30-5.90) m/uL Hgb 10.3 L (13.0-17.5) gm/dL Hct 32.2 L (39.0-53.0) % Plt Count 616 H (150-450) k/uL Comprehensive Metabolic Panel 12/27/23 Range/Units 01:45 Sodium 138 (137-145) mmol/L Potassium 3.5 (3.5-5.1) mmol/L Chloride 105 (98-107) mmol/L Carbon Dioxide 23 (22-30) mmol/L BUN 13 (9-20) mg/dL Creatinine 0.76 (0.66-1.25) mg/dL Glucose 107 H (74-99) mg/dL Calcium 9.4 (8.4-10.2) mg/dL AST 15 L (17-59) U/L ALT 9 (4-49) U/L Alkaline Phosphatase 73 (38-126) U/L Total Protein 7.3 (6.3-8.2) g/dL Albumin 4.5 (3.5-5.0) g/dL Current Medications Generic Name Dose Route Start Last Admin Trade Name Freq PRN Reason Stop Dose Admin Acetaminophen 650 mg 12/27/23 04:01 Acetaminophen Tab 325 Mg Tab PO Q6HR PRN Mild Pain or Fever > 100.5 Hydralazine HCl 100 mg 12/27/23 09:00 12/27/23 06:35 Hydralazine Hcl 50 Mg Tab PO 100 mg TID YESICA Administration Sodium Chloride 1,000 mls @ 100 mls/hr 12/27/23 04:15 12/27/23 04:26 Saline 0.9% IV 100 mls/hr .Q10H YESICA Administration Metoprolol Tartrate 100 mg 12/27/23 09:00 12/27/23 06:36 Metoprolol Tartrate 50 Mg Tab PO 100 mg BID YESICA Administration Morphine Sulfate 30 mg 12/27/23 04:00 12/27/23 11:31 Morphine Sulfate Er 30 Mg Tablet PO 30 mg Q8H YESICA Administration Protocol Naloxone HCl 0.2 mg 12/27/23 04:01 Naloxone 0.4 Mg/Ml 1 Ml Vial IV Q2M PRN Opioid Reversal Ondansetron HCl 4 mg 12/27/23 04:01 12/27/23 10:29 Ondansetron 4 Mg/2 Ml Vial IVP 4 mg Q8HR PRN Administration Nausea And Vomiting Oxycodone/Acetaminophen 1 each 12/27/23 03:53 12/27/23 06:36 Oxycodone-Apap 10-325mg 1 Each Tab PO 1 each Q6H PRN Administration Pain Intake and Output 12/26/23 12/27/23 12/27/23 22:59 06:59 14:59 Other: # Voids 1 0 Weight 82.554 kg 12/27/23 01:45 12/27/23 01:45
--- NOTE | 2023-12-27 19:12 | P.HPIM ---
History of Present Illness H&P Date: 12/27/23 Chief Complaint: Chest pain 68-year-old male with a past medical history significant for hypertension, hyperlipidemia, coronary artery disease with previous stenting presenting to the ED with a chief complaint of chest pain. Patient states that around 930 today while watching basketball started to experience left-sided chest pain. Patient states pain that radiates to the left side of his jaw and to his left arm. Notes some associated shortness of breath and some nausea with this as well. Patient reports that he took 3 nitro prior to arrival which she reports did not resolve his chest pain. Now notes some headache after taking nitro. Denies abdominal pain. No other complaints at this time. Review of Systems REVIEW OF SYSTEMS: CONSTITUTIONAL: No fever, no malaise, no fatigue. HEENT: No recent visual problems or hearing problems. Denied any sore throat. CARDIOVASCULAR: No chest pain, orthopnea, PND, no palpitations, no syncope. PULMONARY: No shortness of breath, no cough, no hemoptysis. GASTROINTESTINAL: No diarrhea, no nausea, no vomiting, no abdominal pain. NEUROLOGICAL: No headaches, no weakness, no numbness. HEMATOLOGICAL: Denies any bleeding or petechiae. GENITOURINARY: Denies any burning micturition, frequency, or urgency. MUSCULOSKELETAL/RHEUMATOLOGICAL: Denies any joint pain, swelling, or any muscle pain. ENDOCRINE: Denies any polyuria or polydipsia. The rest of the 14-point review of systems is negative. Past Medical History Past Medical History: Coronary Artery Disease (CAD), Chest Pain / Angina, Deep Vein Thrombosis (DVT), GERD/Reflux, Hyperlipidemia, Hypertension, Osteoarthritis (OA), Thyroid Disorder Additional Past Medical History / Comment(s): Occasional palpitations, gastritis, small hiatal hernia, diverticular dx, pt states years ago he had PUD, chronic low back pain, chronic pain syndrome, migraines, DVT L arm, n umbness/tingling bilateral lower legs, bilateral past R hand fracture, arthritis multiple joints, hyperthyroid, sinus problems. History of Any Multi-Drug Resistant Organisms: None Reported Past Surgical History: Back Surgery, Cholecystectomy, Heart Catheterization With Stent, Orthopedic Surgery Additional Past Surgical History / Comment(s): EGDs/colonoscopies, multiple low back surgeries, bilateral arm and bilateral thigh surgeries for brown recluse spider bites with infection, morphine pain pump insertion and removal due to infection, PCI with stents, L rotator cuff repair, L knee arthroscopy, cervical fusion/cage, R cataract removal.left knee replacement 10/27/2023 Past Anesthesia/Blood Transfusion Reactions: No Reported Reaction Additional Past Anesthesia/Blood Transfusion Reaction / Comment(s): 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 states he was "down for 12 minutes" lower back surgery Date of Last Stent Placement:: 10/12/17 Past Psychological History: Anxiety Additional Psychological History / Comment(s): He uses a cane and walker to ambulate. He does not drive Smoking Status: Former smoker Past Alcohol Use History: None Reported Additional Past Alcohol Use History / Comment(s): Pt started amoking in 1973 and quit in 1985 Past Drug Use History: None Reported - Past Family History Father Family Medical History: No Reported History Additional Family Medical History / Comment(s): Father had back problems. He lived to be 82 yrs old. Mother History Unknown: Yes Family Medical History: Hypertension, Myocardial Infarction (OK) Additional Family Medical History / Comment(s): Mother of a OK at the age of 55yrs. Brother(s) Family Medical History: Cancer, COPD Additional Family Medical History / Comment(s): Leukemia Medications and Allergies Home Medications Medication Instructions Recorded Confirmed Type tiZANidine [Zanaflex] 4 mg PO BID 02/26/18 12/27/23 History oxyCODONE-APAP 10-325MG [Percocet 1 tab PO BID PRN 01/02/20 12/27/23 History 10-325 mg] Aspirin EC [Ecotrin Low Dose] 81 mg PO DAILY 04/23/23 12/27/23 History Folic Acid 1 mg PO DAILY 04/23/23 12/27/23 History Gabapentin [Neurontin] 400 mg PO TID 06/27/23 12/27/23 History Nitroglycerin Sl Tabs [Nitrostat] 0.4 mg SUBLINGUAL Q5M PRN #30 tab 07/23/23 12/27/23 Rx Morphine Sulfate ER [Ms Contin] 30 mg PO DAILY 10/22/23 12/27/23 History oxyCODONE HCL [oxyCODONE HCL (IR)] 10 mg PO BID 12/27/23 12/27/23 History Allergies Allergy/AdvReac Type Severity Reaction Status Date / Time codeine Allergy Itching Verified 12/27/23 00:47 ibuprofen [From Motrin] Allergy Rash/Hives Verified 12/27/23 00:47 ketorolac tromethamine Allergy Rash/Hives Verified 12/27/23 00:47 [From Toradol] Physical Exam Vitals: Vital Signs Temp Pulse Pulse Resp BP BP BP 12/27/23 11:36 162/102 12/27/23 08:20 172/94 12/27/23 08:00 98.2 F 92 18 193/117 12/27/23 06:00 97.3 F L 90 16 177/107 12/27/23 04:29 90 16 137/90 12/27/23 02:17 107 H 19 174/107 12/27/23 01:24 104 H 20 173/95 12/27/23 00:46 98.2 F 122 H 20 191/92 Pulse Ox 12/27/23 11:36 12/27/23 08:20 12/27/23 08:00 100 12/27/23 06:00 100 12/27/23 04:29 98 12/27/23 02:17 99 12/27/23 01:24 99 12/27/23 00:46 99 Intake and Output 12/26/23 12/27/23 12/27/23 22:59 06:59 14:59 Other: # Voids 1 0 Weight 82.554 kg Limitations: no limitations General appearance: alert, in no apparent distress Eye exam: Present: normal appearance Neck exam: Present: normal inspection Respiratory exam: Present: normal lung sounds bilaterally Cardiovascular Exam: Present: tachycardia Back exam: Present: normal inspection Neurological exam: Present: alert, oriented X3 Skin exam: Present: warm, dry Results CBC & Chem 7: 12/27/23 01:45 12/27/23 01:45 Labs: Abnormal Lab Results - Last 24 Hours (Table) 12/27/23 12/27/23 12/27/23 Range/Units 01:45 01:45 01:45 RBC 3.51 L (4.30-5.90) m/uL Hgb 10.3 L (13.0-17.5) gm/dL Hct 32.2 L (39.0-53.0) % RDW 15.6 H (11.5-15.5) % Plt Count 616 H (150-450) k/uL D-Dimer 1.62 H (<0.60) mg/L FEU Glucose 107 H (74-99) mg/dL AST 15 L (17-59) U/L Thrombosis Risk Factor Assmnt - Choose All That Apply Any of the Below Risk Factors Present?: No Other Risk Factors: Yes Each Risk Factor Represents 2 Points: Age 61-74 years Each Risk Factor Represents 3 Points: History of DVT/PE Other congenital or acquired thrombophilia - If yes, enter type in comment: No Thrombosis Risk Factor Assessment Total Risk Factor Score: 5 Thrombosis Risk Factor Assessment Level: High Risk Assessment and Plan Assessment: 1. Chest pain rule out acute coronary syndrome; -- Patient has history of CAD and is status post PCI --We will admit to telemetry; monitor EKG and trend troponin -Patient has been evaluated by cardiology and is recommended Lexiscan stress test -- Patient will resume Imdur 2. Hypertension; Cozaar 50 mg daily; metoprolol 100 mg twice daily 3. Hyperlipidemia; currently not taking any statin therapy 4. Hyperthyroidism; noncompliant with medication and has not followed up with endocrinology -- TSH is ordered 5. Chronic back pain; takes oxycodone 100 mg twice daily along with MS Contin 30 mg daily and Neurontin 400 mg twice daily DVT prophylaxis; SCDs CODE STATUS; full code
[2023-12-28] MEDS ORDERED: AMINOPHYLLINE 500 MG/20 ML VIAL IV PRN (06:00)
[2023-12-28] MEDS ORDERED: REGADENOSON 0.4 MG/5 ML SYRINGE IV PRN (06:00)
[2023-12-28] MEDS ORDERED: CAFFEINE CITRATE 60 MG/3 ML VIAL IV PRN (06:00)
[2023-12-28] MEDS: ISOSORBIDE MONONITRATE ER 30 MG TAB.ER.24H PO SCH (08:16)
[2023-12-28] MEDS: hydrALAZINE HCL 50 MG TAB PO SCH ×2 (08:16→15:33)
[2023-12-28] MEDS: LOSARTAN 50 MG TAB PO SCH (08:16)
[2023-12-28] MEDS: METOPROLOL TARTRATE 50 MG TAB PO SCH (08:16)
[2023-12-28] MEDS: amLODIPine 10 MG TAB PO SCH (08:16)
[2023-12-28] MEDS ORDERED: MORPHINE SULFATE ER 30 MG TABLET PO SCH (09:00)
--- NOTE | 2023-12-28 10:39 | P.PN ---
Subjective Progress Note Date: 12/28/23 Consult reason: chest pain Chief complaint: Chest pain History of present illness: History of present illness: Patient is a pleasant 68-year-old male with significant past medical history of hypertension, hyperlipidemia, CAD with previous PCI, hyperthyroidism who presented to the emergency department with complaints of chest pain. He reports that he was watching television around 9:30 PM last night when he developed chest pain, diaphoresis, nausea, left jaw pain, and left arm pain. He did take 3 nitro at that time with no relief and got a severe headache. He does follow with Dr. Go in the office. He had a prior left heart cath 06/2023 for chest pain which showed patent LAD and diagonal stents no intervention was done. Blood pressure has been significantly elevated. He is not exactly sure what medications he is taking and reports that he is taking what ever [facility] sent him home with. He did have a recent knee surgery in October 2023. Labs reviewed: Hemoglobin 10.3, potassium 3.5, creatinine 0.76, BNP 4 0, troponin negative x 3. CTA chest was negative for PE. Left lower extremity ultrasound was negative for a DVT. He is still having constant chest pains. 2/ Patient denies having any chest pain at this time. He states he had onset of pain on Thursday. He denies having any palpitations, no nausea vomiting no abdominal pain. Patient is scheduled for Lexiscan stress test today. Blood pressure 137/88, heart rate 90, pulse ox 97% on room air. TSH came back at less than 0.005 with free T4 abnormal at 1.89. PHYSICAL EXAMINATION: This is a 68-year-old male in no apparent distress at the time of my examination. HEENT: Head is atraumatic, normocephalic. Pupils are equal, round. Sclerae anic teric. Conjunctivae are clear. Mucous membranes of the mouth are moist. + Neck swelling/nodules. There is no jugular venous distention. No carotid bruit is heard. CHEST EXAMINATION: Lungs are clear to auscultation. No chest wall tenderness is noted on palpation or with deep breathing. HEART EXAMINATION: Heart regular rate and rhythm. S1, S2 heard. No murmurs, gallops or rub. ABDOMEN: Soft, nontender. Bowel sounds are heard. EXTREMITIES: 2+ peripheral pulses with no evidence of peripheral edema and no calf tenderness noted. NEUROLOGIC EXAMINATION: Patient is awake, alert and oriented x3. IMPRESSION AND PLAN: CAD s/p PCI Hypertension Hyperlipidemia Hyperthyoidism attending to address Chest pain PLAN: Lexiscan stress test today Continue patient's home cardiac medications If stress test is unremarkable, patient is cleared for discharge from cardiology and may follow-up in the office with Dr. Go in 1 to 2 weeks. Nurse practitioner note has been reviewed, I agree with documented findings and plan of care. Patient was seen and examined. Objective - Vital Signs Vital signs: Vital Signs Temp 97.6 F 12/28/23 01:46 Pulse 110 H 12/28/23 01:46 Resp 16 12/28/23 01:46 BP 142/84 12/28/23 01:46 Pulse Ox 98 12/28/23 01:46 FiO2 Intake & Output 12/27/23 12/28/23 12/28/23 18:59 06:59 18:59 Intake Total 120 Balance 120 Intake: Oral 120 Other: Voiding Method Toilet # Voids 2 1 - Labs CBC & Chem 7: 12/27/23 01:45 12/27/23 01:45 Labs: Abnormal Lab Results - Last 24 Hours (Table) 12/27/23 Range/Units 01:45 TSH <0.005 L (0.350-5.500) UIU/ML Free (T4) Reflex I 1.89 H (0.80-1.80) ng/dL
[2023-12-28] MEDS: oxyCODONE-APAP 10-325MG 1 EACH TAB PO PRN (11:29)
[2023-12-28] MEDS ORDERED: tiZANidine 4 MG TAB PO SCH (11:45)
[2023-12-28] MEDS: GABAPENTIN 400 MG CAP PO SCH ×2 (12:03→15:33)
[2023-12-28] MEDS ORDERED: HYDROmorphone 0.5 MG/0.5 ML SYRINGE IVP STA (12:55)
[2023-12-28] MEDS ORDERED: methIMAzole 5 MG TAB PO SCH ×2 (13:00→14:00)
--- NOTE | 2023-12-28 13:45 | NM ---
EXAMINATION TYPE: NM stress lexiscan cardiolite DATE OF EXAM: 12/28/2023 COMPARISON: NONE CLINICAL INDICATION: Male, 68 years old with history of chest pain; TECHNIQUE: After the intravenous administration of 10.5 mCi Tc 99m Sestamibi - Cardiolite resting SP ECT images acquired 45 minutes post injection. The patient received 0.4mg Lexiscan, 25.4 mCi Tc 99m Sestamibi - Stress images obtained [address] injection FINDINGS: Review of stress and rest SPECT images demonstrates no distinct perfusion abnormality. Gated analysi s shows normal wall motion with an estimated left ventricular ejection fraction of 50 %. IMPRESSION: No scintigraphic evidence for reversible ischemia.
[2023-12-28 15:09] VITALS: BP 138/76; PULSE 114; RESP 12; TEMP 98.6
--- NOTE | 2023-12-29 00:24 | P.DS ---
Providers Date of admission: 12/27/23 04:03 Attending physician: Soniya Rahman MD Consults: 12/27/23 04:01 Consult Physician Urgent Consulting Provider: [facility] Consult Reason/Comments: Chest pain r/o acs Do you want consulting provider notified?: Yes Primary care physician: Stated None Hospital Course: Chest pain, cardiac causes ruled out, most likely musculoskeletal. CTA is negative for PE Hyperthyroidism, started on treatment Hypertension Hyperlipidemia Chronic back pain History of Noncompliance CAD s/p PCI Hospital course: 68-year-old male with a past medical history significant for hypertension, hyperlipidemia, coronary artery disease with previous stenting presenting to the ED with a chief complaint of chest pain. Patient has negative CTPA for pulmonary embolism His been evaluated by stack clerk, troponins were negative, no significant EKG changes. Stress test was negative. Chest pain resolved and patient was cleared by stack clerk Patient complains from generalized body aches and back pain. Patient with no radiculopathy or neurological deficit. Patient is control upon discharge Patient informed about his hyperthyroidism and 8 for treatment and follow-up with park guide. Patient knows Dr. Chung and he mentioned her to me and he showed when asked to follow-up with her upon discharge Patient denies any other complaints. He is agreeable to be discharged today Patient was cleared for discharge by stack clerk Problems and management plan were discussed with the patient and he verbalized understanding and acceptance Patient was found stable and can be discharged home in guarded prognosis however he needs follow-up as an outpatient. Patient was instructed to follow up with PCP within one week and patient agrees Patient was instructed to follow up with park guide Dr. Chung in 1 week after discharge and he agrees Patient was instructed to follow up with stack clerk Dr. Go in 1-2 weeks after discharge and he agrees Patient says he has prescription at home and he does not need anymore Physical exam Gen: patient is a AAOx3, no distress CVS: S1-S2, RRR, no murmur Lungs: B/L CTA, no wheezing Abdomen: soft, no distention, no tenderness, positive bowel sounds Extremity: no leg edema or induration Time spent more than 35 minutes Patient Condition at Discharge: Good Plan - Discharge Summary New Discharge Prescriptions: New hydrALAZINE HCL [Apresoline] 100 mg PO TID #90 tab Metoprolol Tartrate [Lopressor] 100 mg PO BID #60 tab methIMAzole [Tapazole] 5 mg PO BID #60 tab Losartan [Cozaar] 50 mg PO DAILY #30 tab Isosorbide Mononitrate ER [Imdur] 30 mg PO DAILY #30 tab amLODIPine [Norvasc] 10 mg PO DAILY #30 tab Continue tiZANidine [Zanaflex] 4 mg PO BID oxyCODONE-APAP 10-325MG [Percocet 10-325 mg] 1 tab PO BID PRN PRN Reason: Pain Folic Acid 1 mg PO DAILY Gabapentin [Neurontin] 400 mg PO TID Aspirin EC [Ecotrin Low Dose] 81 mg PO DAILY Nitroglycerin Sl Tabs [Nitrostat] 0.4 mg SUBLINGUAL Q5M PRN #30 tab PRN Reason: Chest Pain Morphine Sulfate ER [Ms Contin] 30 mg PO DAILY oxyCODONE HCL [oxyCODONE HCL (IR)] 10 mg PO BID Discharge Medication List tiZANidine [Zanaflex] 4 mg PO BID 02/26/18 [History] oxyCODONE-APAP 10-325MG [Percocet 10-325 mg] 1 tab PO BID PRN 01/02/20 [History] Aspirin EC [Ecotrin Low Dose] 81 mg PO DAILY 04/23/23 [History] Folic Acid 1 mg PO DAILY 04/23/23 [History] Gabapentin [Neurontin] 400 mg PO TID 06/27/23 [History] Nitroglycerin Sl Tabs [Nitrostat] 0.4 mg SUBLINGUAL Q5M PRN #30 tab 07/23/23 [Rx] Morphine Sulfate ER [Ms Contin] 30 mg PO DAILY 10/22/23 [History] oxyCODONE HCL [oxyCODONE HCL (IR)] 10 mg PO BID 12/27/23 [History] Isosorbide Mononitrate ER [Imdur] 30 mg PO DAILY #30 tab 12/28/23 [Rx] Losartan [Cozaar] 50 mg PO DAILY #30 tab 12/28/23 [Rx] Metoprolol Tartrate [Lopressor] 100 mg PO BID #60 tab 12/28/23 [Rx] amLODIPine [Norvasc] 10 mg PO DAILY #30 tab 12/28/23 [Rx] hydrALAZINE HCL [Apresoline] 100 mg PO TID #90 tab 12/28/23 [Rx] methIMAzole [Tapazole] 5 mg PO BID #60 tab 12/28/23 [Rx] Follow up Appointment(s)/Referral(s): Fannie Go MD [STAFF PHYSICIAN] - 01/06/24 2:45 pm None,Stated [Primary Care Provider] - 1-2 days Gina Chung [STAFF PHYSICIAN] - 1 Week (endocrniologist for your thyroid problem. Message left with 's office regarding appointment.) Activity/Diet/Wound Care/Special Instructions: heart healthy diet activity is restricted till you see your doctor Please contact your health insurance provider to find a nearby primary care doctor, and call and make appointment in 1 week please Discharge Disposition: HOME SELF-CARE
--- NOTE | 2023-12-29 07:43 | CA ---
Lexiscan Nuclear Stress Test Report Name: Salomon Johnson Exam Date: 12/28/2023 09:02 Exam Location: [facility] Ht (in): 71 Wt (lb): 182 BSA: 2.03 Ordering Phys: Agata Smith Referring Phys: YURY, Technologist: ELIAS,, Age: 68 Gender: M : 1955 Procedure CPT: Indications: Reflex order-Stress test ICD-10 Codes: Patient History: Chest pain and palpitations Medications: Meds past 24 hrs: Pretest Chest Pain: STRESS TEST Lexiscan Protocol Exercise Duration (min:sec): 01:[address] Depressions (mm): Angina Score: Naqvi Score: Resting HR (bpm): 84 Peak HR (bpm): 100 Resting BP (mmHg): 147 / 91 Peak BP (mmHg): 151 / 79 MPHR: 153 Target HR: 130 % MPHR: 65 METS: 1.0 Total Dose: Peak Dose: Atropine: Double Product: 19241 BP Response: Stress Termination: INFUSION COMPLETE Stress Symptoms: NO SYMPTOMS Stress Summary: ECG ANALYSIS Resting ECG: Sinus rhythm. Normal conduction. No arrhythmias. Normal repolarization. Stress ECG: No ECG changes from baseline with Lexiscan infusion. CONCLUSIONS No ECG evidence of ischemia with Lexiscan infusion. Nuclear test results to follow. Dr. Armando Carrizales MD (Electronically Signed) Final Date: 29 December 2023 07:42
== END 2023-12-28 16:50 | disposition home or self-care (01) ==
LOC: EC 00:44 → 6NMEDSUR 04:03
PROVIDERS: ADMIT Internal Medicine; ATTEND Internal Medicine
DX: R07.89 Other chest pain (principal); I10 Essential (primary) hypertension; E78.5 Hyperlipidemia, unspecified; I25.10 Atherosclerotic heart disease of native coronary artery without angina pectoris; J44.9 Chronic obstructive pulmonary disease, unspecified; K21.9 Gastro-esophageal reflux disease without esophagitis; E05.90 Thyrotoxicosis, unspecified without thyrotoxic crisis or storm; G89.4 Chronic pain syndrome; F41.9 Anxiety disorder, unspecified; Z87.891 Personal history of nicotine dependence; Z86.718 Personal history of other venous thrombosis and embolism; Z91.148 Patient's other noncompliance with medication regimen for other reason; Z95.5 Presence of coronary angioplasty implant and graft; Z79.01 Long term (current) use of anticoagulants; Z79.82 Long term (current) use of aspirin; Z79.899 Other long term (current) drug therapy; Z88.5 Allergy status to narcotic agent; Z88.6 Allergy status to analgesic agent
CPT/HCPCS: 96376; 96361 ×3; 96375; 96374; 99285; 36415; 93005; 93017; 85379; 84439; 83880; 80053; 84443; 83735; 84484; 85025; 85610; 85730; 71046; 71275; 78452; G0378 ×3; A9500; J2405; J2785; J1170; Q9967

== ENCOUNTER 2024-01-01 10:34 | Emergency (ER) | payer MEDICARE, OTHER ==
--- NOTE | 2024-01-01 11:03 | ED ---
General Adult HPI - General Chief complaint: Headache Stated complaint: Migraine Time Seen by Provider: 01/01/24 10:40 Source: patient, RN notes reviewed, old records reviewed Mode of arrival: ambulatory Limitations: no limitations - History of Present Illness Initial comments: This is a 68-year-old male who presents to the emergency department complaining that he has had a migraine headache since this morning. Patient states this is typical of his normal headaches. Patient denies any numbness weakness. Patient denies any photophobia. Patient Nuys any vomiting. States that he is mildly nauseated. Patient denies any chest pain difficulty breathing shortness of breath. Patient denies any recent fever chills or cough. Patient denies any abdominal pain patient is any other symptoms at this time. Patient does not want any IM or IV medications or any workup. Patient states she just would like prescription for Imitrex - Related Data Home Medications Medication Instructions Recorded Confirmed tiZANidine [Zanaflex] 4 mg PO BID 02/26/18 12/27/23 oxyCODONE-APAP 10-325MG [Percocet 1 tab PO BID PRN 01/02/20 12/27/23 10-325 mg] Aspirin EC [Ecotrin Low Dose] 81 mg PO DAILY 04/23/23 12/27/23 Folic Acid 1 mg PO DAILY 04/23/23 12/27/23 Gabapentin [Neurontin] 400 mg PO TID 06/27/23 12/27/23 Morphine Sulfate ER [Ms Contin] 30 mg PO DAILY 10/22/23 12/27/23 oxyCODONE HCL [oxyCODONE HCL (IR)] 10 mg PO BID 12/27/23 12/27/23 Previous Rx's Medication Instructions Recorded Nitroglycerin Sl Tabs [Nitrostat] 0.4 mg SUBLINGUAL Q5M PRN #30 tab 07/23/23 Isosorbide Mononitrate ER [Imdur] 30 mg PO DAILY #30 tab 12/28/23 Losartan [Cozaar] 50 mg PO DAILY #30 tab 12/28/23 Metoprolol Tartrate [Lopressor] 100 mg PO BID #60 tab 12/28/23 amLODIPine [Norvasc] 10 mg PO DAILY #30 tab 12/28/23 hydrALAZINE HCL [Apresoline] 100 mg PO TID #90 tab 12/28/23 methIMAzole [Tapazole] 5 mg PO BID #60 tab 12/28/23 SUMAtriptan succinate [Imitrex] 25 mg PO Q4H #5 tablet 01/01/24 Allergies Allergy/AdvReac Type Severity Reaction Status Date / Time codeine Allergy Itching Verified 01/01/24 10:45 ibuprofen [From Motrin] Allergy Rash/Hives Verified 01/01/24 10:45 ketorolac tromethamine Allergy Rash/Hives Verified 01/01/24 10:45 [From Toradol] Review of Systems ROS Statement: Those systems with pertinent positive or pertinent negative responses have been documented in the HPI. ROS Other: All systems not noted in ROS Statement are negative. Past Medical History Past Medical History: Coronary Artery Disease (CAD), Chest Pain / Angina, Deep Vein Thrombosis (DVT), GERD/Reflux, Hyperlipidemia, Hypertension, Osteoarthritis (OA), Thyroid Disorder Additional Past Medical History / Comment(s): Occasional palpitations, gastritis, small hiatal hernia, diverticular dx, pt states years ago he had PUD, chronic low back pain, chronic pain syndrome, migraines, DVT L arm, numbness/tingling bilateral lower legs, bilateral past R hand fracture, arthritis multiple joints, hyperthyroid, sinus problems. History of Any Multi-Drug Resistant Organisms: None Reported Past Surgical History: Back Surgery, Cholecystectomy, Heart Catheterization With Stent, Orthopedic Surgery Additional Past Surgical History / Comment(s): EGDs/colonoscopies, multiple low back surgeries, bilateral arm and bilateral thigh surgeries for brown recluse spider bites with infection, morphine pain pump insertion and removal due to infection, PCI with stents, L rotator cuff repair, L knee arthroscopy, cervical fusion/cage, R cataract removal.left knee replacement 10/27/2023 Past Anesthesia/Blood Transfusion Reactions: No Reported Reaction Additional Past Anesthesia/Blood Transfusion Reaction / Comment(s): 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 states he was "down for 12 minutes" lower back surgery Date of Last Stent Placement:: 10/12/17 Past Psychological History: Anxiety Smoking Status: Former smoker Past Alcohol Use History: None Reported Past Drug Use History: None Reported - Past Family History Father Family Medical History: No Reported History Additional Family Medical History / Comment(s): Father had back problems. He lived to be 82 yrs old. Mother History Unknown: Yes Family Medical History: Hypertension, Myocardial Infarction (PA) Additional Family Medical History / Comment(s): Mother of a PA at the age of 55yrs. Brother(s) Family Medical History: Cancer, COPD Additional Family Medical History / Comment(s): Leukemia General Exam - General Exam Comments Initial Comments: GENERAL: Patient is well-developed and well-nourished. Patient is nontoxic and well- hydrated and is in mild distress. ENT: Neck is soft and supple. No significant lymphadenopathy is noted. Oropharynx is clear. Moist mucous membranes. Neck has full range of motion without eliciting any pain. EYES: The sclera were anicteric and conjunctiva were pink and moist. Extraocular movements were intact and pupils were equal round and reactive to light. Eyelids were unremarkable. PULMONARY: Unlabored respirations. Good breath sounds bilaterally. No audible rales rhonchi or wheezing was noted. CARDIOVASCULAR: There is a regular rate and rhythm without any murmurs gallops or rubs. SKIN: Skin is clear with no lesions or rashes and otherwise unremarkable. NEUROLOGIC: Patient is alert and oriented x3. Cranial nerves II through XII are grossly intact. Motor and sensory are also intact. Normal speech, volume and content. Symmetrical smile. MUSCULOSKELETAL: Normal extremities with adequate strength and full range of motion. No lower extremity swelling or edema. No calf tenderness. LYMPHATICS: No significant lymphadenopathy is noted PSYCHIATRIC: Normal psychiatric evaluation. Limitations: no limitations Course Vital Signs 01/01/24 10:43 Temperature 98.2 F Pulse Rate 114 H Respiratory 20 Rate Blood Pressure 154/112 O2 Sat by Pulse 99 Oximetry Medical Decision Making - Medical Decision Making Was pt. sent in by a medical professional or institution (, PA, DIMENSION MILL WORKER, urgent care, hospital, or prison...) When possible be specific @ -No Did you speak to anyone other than the patient for history (EMS, parent, family, police, friend...)? What history was obtained from this source @ -No Did you review nursing and triage notes (agree or disagree)? Why? @ -I reviewed and agree with nursing and triage notes Were old charts reviewed (outside hosp., previous admission, EMS record, old EKG, old radiological studies, urgent care reports/EKG's, prison records)? Report findings @ -I did review prior charts Differential Diagnosis (chest pain, altered mental status, abdominal pain women, abdominal pain men, vaginal bleeding, weakness, fever, dyspnea, syncope, headache, dizziness, GI bleed, back pain, seizure, CVA, palpatations, mental health, musculoskeletal)? @ -Differential Headache: Migraine, tension, cluster, carbon monoxide, central venous thrombosis, pension karma temporal arteritis, acute closure glaucoma, intercranial hemorrhage, mastoiditis, sinusitis, head injury, this is not meant to be an all-inclusive list. EKG interpreted by me (3pts min.). @ -As above X-rays interpreted by me (1pt min.). @ -None done CT interpreted by me (1pt min.). @ -None done U/S interpreted by me (1pt. min.). @ -None done What testing was considered but not performed or refused? (CT, X-rays, U/S, labs)? Why? @ -None What meds were considered but not given or refused? Why? @ -None Did you discuss the management of the patient with other professionals (professionals i.e. , PA, DIMENSION MILL WORKER, lab, RT, psych nurse, aids social worker, saw setter, teacher, deck officer, director case management)? Give summary @ -No Was smoking cessation discussed for >3mins.? @ -No Was critical care preformed (if so, how long)? @ -No Were there social determinants of health that impacted care today? How? (Homeles sness, low income, unemployed, alcoholism, drug addiction, transportation, low edu. Level, literacy, decrease access to med. care, correction, rehab)? @ -No Was there de-escalation of care discussed even if they declined (Discuss DNR or withdrawal of care, Hospice)? DNR status @ -No What co-morbidities impacted this encounter? (DM, HTN, Smoking, COPD, CAD, Cancer, CVA, ARF, Chemo, Hep., AIDS, mental health diagnosis, sleep apnea, morbid obesity)? @ -None Was patient admitted / discharged? Hospital course, mention meds given and route, prescriptions, significant lab abnormalities, going to OR and other pertinent info. @ -Patient did not want any medicines or workup done in the emergency department he just asked for prescription for Imitrex Undiagnosed new problem with uncertain prognosis? @ -No Drug Therapy requiring intensive monitoring for toxicity (Heparin, Nitro, Insulin, Cardizem)? @ -No Were any procedures done? @ -No Diagnosis/symptom? @ -Headache Acute, or Chronic, or Acute on Chronic? @ -Acute Uncomplicated (without systemic symptoms) or Complicated (systemic symptoms)? @ -Uncomplicated Side effects of treatment? @ -No Exacerbation, Progression, or Severe Exacerbation? @ -No Poses a threat to life or bodily function? How? (Chest pain, USA, PA, pneumonia, PE, COPD, DKA, ARF, appy, cholecystitis, CVA, Diverticulitis, Homicidal, Suicidal, threat to staff... and all critical care pts) @ -No Disposition Clinical Impression: Migraine headache Disposition: HOME SELF-CARE Condition: Good Instructions (If sedation given, give patient instructions): Acute Headache (ED) Prescriptions: SUMAtriptan succinate [Imitrex] 25 mg PO Q4H #5 tablet Is patient prescribed a controlled substance at d/c from ED?: No Referrals: None,Stated [Primary Care Provider] - 1-2 days Time of Disposition: 10:59
[2024-01-01 11:05] VITALS: BP 154/112; PULSE 114; RESP 20; TEMP 98.2
== END 2024-01-01 11:14 | disposition home or self-care (01) ==
LOC: EC 10:34
DX: G43.909 Migraine, unspecified, not intractable, without status migrainosus (principal); E78.5 Hyperlipidemia, unspecified; I10 Essential (primary) hypertension; I25.10 Atherosclerotic heart disease of native coronary artery without angina pectoris; Z79.899 Other long term (current) drug therapy; Z87.891 Personal history of nicotine dependence; Z88.6 Allergy status to analgesic agent; Z88.8 Allergy status to other drugs, medicaments and biological substances; Z88.5 Allergy status to narcotic agent; Z90.49 Acquired absence of other specified parts of digestive tract; Z95.5 Presence of coronary angioplasty implant and graft
CPT/HCPCS: 99283

== ENCOUNTER 2024-01-20 14:45 | Emergency (ER) | payer MEDICARE, OTHER ==
--- NOTE | 2024-01-20 15:09 | ED ---
Lower Extremity Injury HPI - General Chief Complaint: Extremity Injury, Lower Stated Complaint: R leg pain Time Seen by Provider: 01/20/24 15:01 Source: patient, RN notes reviewed Mode of arrival: ambulatory Limitations: no limitations - History of Present Illness Initial Comments: 68-year-old male presents emergency department with chief complaint of leg pain this is chronic in nature he is scheduled see his orthopedic surgeon tomorrow. Patient states that pain seem to worsen when he twists 3. Denies any falls no other complaints. - Related Data Home Medications Medication Instructions Recorded Confirmed tiZANidine [Zanaflex] 4 mg PO BID 02/26/18 12/27/23 oxyCODONE-APAP 10-325MG [Percocet 1 tab PO BID PRN 01/02/20 12/27/23 10-325 mg] Aspirin EC [Ecotrin Low Dose] 81 mg PO DAILY 04/23/23 12/27/23 Folic Acid 1 mg PO DAILY 04/23/23 12/27/23 Gabapentin [Neurontin] 400 mg PO TID 06/27/23 12/27/23 Morphine Sulfate ER [Ms Contin] 30 mg PO DAILY 10/22/23 12/27/23 oxyCODONE HCL [oxyCODONE HCL (IR)] 10 mg PO BID 12/27/23 12/27/23 Previous Rx's Medication Instructions Recorded Nitroglycerin Sl Tabs [Nitrostat] 0.4 mg SUBLINGUAL Q5M PRN #30 tab 07/23/23 Isosorbide Mononitrate ER [Imdur] 30 mg PO DAILY #30 tab 12/28/23 Losartan [Cozaar] 50 mg PO DAILY #30 tab 12/28/23 Metoprolol Tartrate [Lopressor] 100 mg PO BID #60 tab 12/28/23 amLODIPine [Norvasc] 10 mg PO DAILY #30 tab 12/28/23 hydrALAZINE HCL [Apresoline] 100 mg PO TID #90 tab 12/28/23 methIMAzole [Tapazole] 5 mg PO BID #60 tab 12/28/23 SUMAtriptan succinate [Imitrex] 25 mg PO Q4H #5 tablet 01/01/24 Allergies Allergy/AdvReac Type Severity Reaction Status Date / Time codeine Allergy Itching Verified 01/20/24 15:09 ibuprofen [From Motrin] Allergy Rash/Hives Verified 01/20/24 15:09 ketorolac tromethamine Allergy Rash/Hives Verified 01/20/24 15:09 [From Toradol] Review of Systems ROS Statement: Those systems with pertinent positive or pertinent negative responses have been documented in the HPI. ROS Other: All systems not noted in ROS Statement are negative. Past Medical History Past Medical History: Coronary Artery Disease (CAD), Chest Pain / Angina, Deep Vein Thrombosis (DVT), GERD/Reflux, Hyperlipidemia, Hypertension, Osteoarthritis (OA), Thyroid Disorder Additional Past Medical History / Comment(s): Occasional palpitations, gastritis, small hiatal hernia, diverticular dx, pt states years ago he had PUD, chronic low back pain, chronic pain syndrome, migraines, DVT L arm, numbness/ti ngling bilateral lower legs, bilateral past R hand fracture, arthritis multiple joints, hyperthyroid, sinus problems. History of Any Multi-Drug Resistant Organisms: None Reported Past Surgical History: Back Surgery, Cholecystectomy, Heart Catheterization With Stent, Orthopedic Surgery Additional Past Surgical History / Comment(s): EGDs/colonoscopies, multiple low back surgeries, bilateral arm and bilateral thigh surgeries for brown recluse spider bites with infection, morphine pain pump insertion and removal due to infection, PCI with stents, L rotator cuff repair, L knee arthroscopy, cervical fusion/cage, R cataract removal.left knee replacement 10/27/2023 Past Anesthesia/Blood Transfusion Reactions: No Reported Reaction Additional Past Anesthesia/Blood Transfusion Reaction / Comment(s): 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 states he was "down for 12 minutes" lower back surgery Date of Last Stent Placement:: 10/12/17 Past Psychological History: Anxiety Smoking Status: Former smoker Past Alcohol Use History: None Reported Past Drug Use History: None Reported - Past Family History Father Family Medical History: No Reported History Additional Family Medical History / Comment(s): Father had back problems. He lived to be 82 yrs old. Mother History Unknown: Yes Family Medical History: Hypertension, Myocardial Infarction ([place]) Additional Family Medical History / Comment(s): Mother of a NE at the age of 55yrs. Brother(s) Family Medical History: Cancer, COPD Additional Family Medical History / Comment(s): Leukemia General Exam Limitations: no limitations General appearance: alert, in no apparent distress Head exam: Present: atraumatic, normocephalic, normal inspection Respiratory exam: Present: normal lung sounds bilaterally. Absent: respiratory distress, wheezes, rales, rhonchi, stridor Cardiovascular Exam: Present: regular rate, normal rhythm, normal heart sounds. Absent: systolic murmur, diastolic murmur, rubs, gallop, clicks Extremities exam: Present: other (Left leg slightly decreased range of motion from recent surgery. Neurovascular intact there is no calf tenderness no swelling no erythema right leg no acute abnormality nontender) Course Vital Signs 01/20/24 15:06 Temperature 98.6 F Pulse Rate 118 H Respiratory 18 Rate Blood Pressure 121/84 O2 Sat by Pulse 98 Oximetry Medical Decision Making - Medical Decision Making Was pt. sent in by a medical professional or institution (FAITH Burns, WAX ROOM SUPERVISOR, urgent care, hospital, or penitentiary...) When possible be specific @ -No Did you speak to anyone other than the patient for history (EMS, parent, family, police, friend...)? What history was obtained from this source @ -No Did you review nursing and triage notes (agree or disagree)? Why? @ -I reviewed and agree with nursing and triage notes Were old charts reviewed (outside hosp., previous admission, EMS record, old EKG, old radiological studies, urgent care reports/EKG's, penitentiary records)? Report findings @ -Reviewed prior charts, labs and imaging Differential Diagnosis (chest pain, altered mental status, abdominal pain women, abdominal pain men, vaginal bleeding, weakness, fever, dyspnea, syncope, headache, dizziness, GI bleed, back pain, seizure, CVA, palpatations, mental health, musculoskeletal)? @ -Chronic pain, leg pain EKG interpreted by me (3pts min.). @ -None X-rays interpreted by me (1pt min.). @ -None done CT interpreted by me (1pt min.). @ -None done U/S interpreted by me (1pt. min.). @ -None done What testing was considered but not performed or refused? (CT, X-rays, U/S, labs)? Why? @ -None What meds were considered but not given or refused? Why? @ -None Did you discuss the management of the patient with other professionals (professionals i.e. FAITH Burns, WAX ROOM SUPERVISOR, lab, RT, psych nurse, licensed master social worker, immigration lawyer, teacher, sales and service officer, vocational case manager)? Give summary @ -No Was smoking cessation discussed for >3mins.? @ -No Was critical care preformed (if so, how long)? @ -No Were there social determinants of health that impacted care today? How? (Homelessness, low income, unemployed, alcoholism, drug addiction, transportation, low edu. Level, literacy, decrease access to med. care, shelter, rehab)? @ -No Was there de-escalation of care discussed even if they declined (Discuss DNR or withdrawal of care, Hospice)? DNR status @ -No What co-morbidities impacted this encounter? (DM, HTN, Smoking, COPD, CAD, Cancer, CVA, ARF, Chemo, Hep., AIDS, mental health diagnosis, sleep apnea, morbid obesity)? @ -None Was patient admitted / discharged? Hospital course, mention meds given and route, prescriptions, significant lab abnormalities, going to OR and other pertinent info. @ -[As patient's pain is chronic in nature patient has acute exacerbation discharged in stable condition. Undiagnosed new problem with uncertain prognosis? @ -No Drug Therapy requiring intensive monitoring for toxicity (Heparin, Nitro, Insulin, Cardizem)? @ -No Were any procedures done? @ -No Diagnosis/symptom? @ -Leg pain Acute, or Chronic, or Acute on Chronic? @ -Acute on chronic Uncomplicated (without systemic symptoms) or Complicated (systemic symptoms)? @ -Uncomplicated Side effects of treatment? @ -No Exacerbation, Progression, or Severe Exacerbation? @ -No Poses a threat to life or bodily function? How? (Chest pain, [place], [place], pneumonia, PE, COPD, DKA, ARF, appy, cholecystitis, CVA, Diverticulitis, Homicidal, Suicidal, threat to staff... and all critical care pts) @ -No Disposition Clinical Impression: Leg pain Disposition: HOME SELF-CARE Condition: Stable Additional Instructions: Please return to the Emergency Department if symptoms worsen or any other concerns. Is patient prescribed a controlled substance at d/c from ED?: No Referrals: None,Stated [Primary Care Provider] - 1-2 days Time of Disposition: 15:09
[2024-01-20] MEDS: ONDANSETRON 4 MG/2 ML VIAL IM STA (15:20)
[2024-01-20] MEDS: HYDROmorphone 1 MG/ML 1 ML SYRINGE IM STA (15:20)
[2024-01-20 15:23] VITALS: BP 121/84; PULSE 118; RESP 18; TEMP 98.6
== END 2024-01-20 15:40 | disposition home or self-care (01) ==
LOC: EC 14:45
DX: M79.604 Pain in right leg (principal); I10 Essential (primary) hypertension; I25.10 Atherosclerotic heart disease of native coronary artery without angina pectoris; Z79.82 Long term (current) use of aspirin; Z79.899 Other long term (current) drug therapy; Z88.5 Allergy status to narcotic agent; Z88.6 Allergy status to analgesic agent; Z86.718 Personal history of other venous thrombosis and embolism; Z87.891 Personal history of nicotine dependence
CPT/HCPCS: 99283; 96372 ×2; J2405; J1170

== ENCOUNTER 2024-02-12 08:04 | Day surgery (SDC) | payer MEDICARE, OTHER ==
[2024-02-09 14:52] VITALS: BMI 25.4
[~2024-02-12 08:04] MED LIST changes: -ACETAMINOPHEN TAB 500 MG TAB PO PRN; +LACTATED RINGERS 1,000 ML IV SCH; -MELOXICAM 7.5 MG TAB PO PRN; +MIDAZOLAM 2 MG/2 ML VIAL IV PRN; -TRANEXAMIC 1,000 MG/100ML-NACL 1,000 MG in SALINE 1 100ML.BAG IVPB PRN
[2024-02-12] MEDS: LACTATED RINGERS 1,000 ML IV ONE (09:07)
[2024-02-12] MEDS: DEXAMETHASONE SOD PHOSPHATE 4 MG/ML 1 ML VIAL IV ONE (09:08)
[2024-02-12] MEDS: LIDOCAINE 1% (10MG/ML) FOR IV START INTRADERMA PRN (09:08)
[2024-02-12] MEDS: ONDANSETRON 4 MG/2 ML VIAL IVP ONE (09:08)
[2024-02-12] MEDS ORDERED: HYDROmorphone (PF) 1 MG/ML ONE (09:41)
[2024-02-12] MEDS ORDERED: MIDAZOLAM 2 MG/2 ML VIAL ONE (09:41)
[2024-02-12] MEDS ORDERED: PROPOFOL 10 MG/ML 20 ML VIAL IV ONE (09:41)
--- NOTE | 2024-02-12 09:55 | P.OP ---
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 He had an uncomplicated postoperative course and adequate rehabilitation with persistence of stiffness. A discussion of the risks and benefits of manipulation under anesthesia was made with patient. He opted proceed. Risks of the procedure to include fracture, recurrence of stiffness and need for subsequent procedures was discussed. Informed consent was obtained. Operative Findings: As below Description of Procedure: The patient was brought to the recovery room, and after induction of IV sedation I then gently manipulated his left knee. I was able to go from 70 of flexion to 110 of flexion. Moderate adhesions were encountered. I was able to obtain -5 full extension. The patient was monitored until fully awake. No complications were incurred. There was no blood loss.
[2024-02-12] MEDS: HYDROmorphone 0.5 MG/0.5 ML SYRINGE IVP PRN (10:29)
[2024-02-12 10:43] VITALS: TEMP 97.9
[2024-02-12] MEDS ORDERED: oxyCODONE-APAP 5-325MG 1 EACH TAB ONE (11:50)
[2024-02-12] MEDS: oxyCODONE-APAP 5-325MG 1 EACH TAB PO ONE (11:51)
[2024-02-12 12:31] VITALS: BP 138/71; PULSE 68; RESP 18
--- NOTE | 2024-02-15 14:53 | P.HPOR ---
History of Present Illness H&P Date: 02/01/24 Chief Complaint: Left knee stiffness The patient is a 68-year-old male who presents was persistent left knee stiffness after undergoing left total knee arthroplasty in October 2023. He had delayed postoperative rehabilitation. He notes stiffness and difficulty with ambulation. His postoperative course was otherwise uncomplicated. Review of Systems Negative except as in HPI Past Medical History Past Medical History: Coronary Artery Disease (CAD), Chest Pain / Angina, Deep Vein Thrombosis (DVT), GERD/Reflux, Hyperlipidemia, Hypertension, Osteoarthritis (OA), Thyroid Disorder Additional Past Medical History / Comment(s): Occasional palpitations, gastritis, small hiatal hernia, diverticular dx, pt states years ago he had PUD, chronic low back pain, chronic pain syndrome, migraines, DVT L arm, numbness/tingling bilateral lower legs, bilateral past R hand fracture, arthritis multiple joints, hyperthyroid, sinus problems. History of Any Multi-Drug Resistant Organisms: None Reported Past Surgical History: Back Surgery, Cholecystectomy, Heart Catheterization With Stent, Orthopedic Surgery Additional Past Surgical History / Comment(s): EGDs/colonoscopies, multiple low back surgeries, bilateral arm and bilateral thigh surgeries for brown recluse spider bites with infection, morphine pain pump insertion and removal due to infection, PCI with stents, L rotator cuff repair, L knee arthroscopy, cervical fusion/cage, R cataract removal.left knee replacement 10/27/2023 Past Anesthesia/Blood Transfusion Reactions: No Reported Reaction Additional Past Anesthesia/Blood Transfusion Reaction / Comment(s): 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 states he was "down for 12 minutes" lower back surgery Date of Last Stent Placement:: 10/12/17 Smoking Status: Former smoker - Past Family History Brother(s) Family Medical History: Cancer, COPD Additional Family Medical History / Comment(s): Leukemia Father Family Medical History: No Reported History Additional Family Medical History / Comment(s): Father had back problems. He lived to be 82 yrs old. Mother History Unknown: Yes Family Medical History: Hypertension, Myocardial Infarction ([place]) Additional Family Medical History / Comment(s): Mother of a [place] at the age of 55yrs. Medications and Allergies Home Medications Medication Instructions Recorded Confirmed Type tiZANidine [Zanaflex] 4 mg PO BID 02/26/18 02/09/24 History oxyCODONE-APAP 10-325MG [Percocet 1 tab PO BID PRN 01/02/20 02/09/24 History 10-325 mg] Aspirin EC [Ecotrin Low Dose] 81 mg PO DAILY 04/23/23 02/09/24 History Folic Acid 1 mg PO DAILY 04/23/23 02/09/24 History Gabapentin [Neurontin] 400 mg PO TID 06/27/23 02/09/24 History Nitroglycerin Sl Tabs [Nitrostat] 0.4 mg SUBLINGUAL Q5M PRN #30 tab 07/23/23 02/09/24 Rx Morphine Sulfate ER [Ms Contin] 30 mg PO DAILY 10/22/23 02/09/24 History oxyCODONE HCL [oxyCODONE HCL (IR)] 10 mg PO BID 12/27/23 02/09/24 History Isosorbide Mononitrate ER [Imdur] 30 mg PO DAILY #30 tab 12/28/23 02/09/24 Rx Losartan [Cozaar] 50 mg PO DAILY #30 tab 12/28/23 02/09/24 Rx Metoprolol Tartrate [Lopressor] 100 mg PO BID #60 tab 12/28/23 02/09/24 Rx amLODIPine [Norvasc] 10 mg PO DAILY #30 tab 12/28/23 02/09/24 Rx hydrALAZINE HCL [Apresoline] 100 mg PO TID #90 tab 12/28/23 02/09/24 Rx methIMAzole [Tapazole] 5 mg PO BID #60 tab 12/28/23 02/09/24 Rx SUMAtriptan succinate [Imitrex] 25 mg PO Q4H #5 tablet 01/01/24 02/09/24 Rx methylPREDNISolone Dose Pack 4 mg PO DIRECTED #21 tab 02/12/24 Rx [Medrol Dose Pack] Allergies Allergy/AdvReac Type Severity Reaction Status Date / Time codeine Allergy Itching Verified 02/09/24 14:10 ibuprofen [From Motrin] Allergy Rash/Hives Verified 02/09/24 14:10 ketorolac tromethamine Allergy Rash/Hives Verified 02/09/24 14:10 [From Toradol] Physical Examination - Knee left Appearance: previous incision (Incision is well-healed, no warmth or erythema) Pain: no pain ROM: extension: -15 degrees ROM: flexion: 80 degrees Strength: extension: 5/5 Strength: flexion: 5/5 Results The patient is a well-developed well-nourished male of mesomorphic habitus. HEENT exam is nonfocal, neck supple. On examination of his left knee, the incision is well-healed. He has no lateral joint line tenderness. Collaterals are stable, good patellofemoral tracking is noted. His distal neurovascular appears intact in the left lower extremity. - Diagnostic results Knee x-ray: image reviewed (2 views of the left knee obtaining the office show a left total knee arthroplasty in good alignment.) Assessment and Plan Assessment: Status post left total knee arthroplasty with arthrofibrosis History of narcotic dependency Plan: I talked to the patient at length regarding his condition along with treatment options. At this point he opted to proceed with manipulation of his left knee under anesthesia. Risks and benefits were discussed at length in layman's terms. We will likely perform that utilizing IV sedation.
== END 2024-02-12 12:22 | disposition home or self-care (01) ==
LOC: OR 08:04
PROVIDERS: ATTEND Orthopaedic Surgery
DX: M24.662 Ankylosis, left knee (principal); I25.10 Atherosclerotic heart disease of native coronary artery without angina pectoris; K21.9 Gastro-esophageal reflux disease without esophagitis; I10 Essential (primary) hypertension; E78.5 Hyperlipidemia, unspecified; M19.90 Unspecified osteoarthritis, unspecified site; Z90.49 Acquired absence of other specified parts of digestive tract; Z96.652 Presence of left artificial knee joint; Z87.891 Personal history of nicotine dependence; Z83.6 Family history of other diseases of the respiratory system; Z86.73 Personal history of transient ischemic attack (TIA), and cerebral infarction without residual deficits; Z82.49 Family history of ischemic heart disease and other diseases of the circulatory system; Z79.82 Long term (current) use of aspirin; Z79.899 Other long term (current) drug therapy; Z88.5 Allergy status to narcotic agent
CPT/HCPCS: 27570; J2250; J1100; J2405; J1170 ×2; J2704

== ENCOUNTER 2024-02-28 20:01 | Emergency (ER) | payer MEDICARE, OTHER ==
[2024-02-28 20:26] VITALS: RESP 18; TEMP 97.8
--- NOTE | 2024-02-28 20:38 | ED ---
Nausea/Vomiting/Diarrhea HPI - General Chief complaint: Nausea/Vomiting/Diarrhea Stated complaint: Abdominal pain, Vomiting Time Seen by Provider: 02/28/24 20:37 Source: patient, RN notes reviewed, old records reviewed Mode of arrival: ambulatory Limitations: no limitations - History of Present Illness Initial comments: This is a 68-year-old male well-known to our emergency department today. Patient presents today for evaluation regards to severe abdominal pain severe chest pain severe back pain severe headache migraine coming in for pain. Patient is well-known to our emergency department again and has no other complaints here in the ER patient states that something for pain MD complaint: nausea, vomiting, abdominal pain -: days(s) Description of Vomiting: food contents Location: diffuse Radiation: none Severity: moderate Severity scale (1-10): 7 Quality: aching Consistency: constant Improves with: none Worsens with: none Associated Symptoms: nausea/vomiting, weakness - Related Data Home Medications Medication Instructions Recorded Confirmed tiZANidine [Zanaflex] 4 mg PO BID 02/26/18 02/09/24 oxyCODONE-APAP 10-325MG [Percocet 1 tab PO BID PRN 01/02/20 02/09/24 10-325 mg] Aspirin EC [Ecotrin Low Dose] 81 mg PO DAILY 04/23/23 02/09/24 Folic Acid 1 mg PO DAILY 04/23/23 02/09/24 Gabapentin [Neurontin] 400 mg PO TID 06/27/23 02/09/24 Morphine Sulfate ER [Ms Contin] 30 mg PO DAILY 10/22/23 02/09/24 oxyCODONE HCL [oxyCODONE HCL (IR)] 10 mg PO BID 12/27/23 02/09/24 Previous Rx's Medication Instructions Recorded Nitroglycerin Sl Tabs [Nitrostat] 0.4 mg SUBLINGUAL Q5M PRN #30 tab 07/23/23 Isosorbide Mononitrate ER [Imdur] 30 mg PO DAILY #30 tab 12/28/23 Losartan [Cozaar] 50 mg PO DAILY #30 tab 12/28/23 Metoprolol Tartrate [Lopressor] 100 mg PO BID #60 tab 12/28/23 amLODIPine [Norvasc] 10 mg PO DAILY #30 tab 12/28/23 hydrALAZINE HCL [Apresoline] 100 mg PO TID #90 tab 12/28/23 methIMAzole [Tapazole] 5 mg PO BID #60 tab 12/28/23 SUMAtriptan succinate [Imitrex] 25 mg PO Q4H #5 tablet 01/01/24 methylPREDNISolone Dose Pack 4 mg PO DIRECTED #21 tab 02/12/24 [Medrol Dose Pack] Allergies Allergy/AdvReac Type Severity Reaction Status Date / Time codeine Allergy Itching Verified 02/28/24 20:10 ibuprofen [From Motrin] Allergy Rash/Hives Verified 02/28/24 20:10 ketorolac tromethamine Allergy Rash/Hives Verified 02/28/24 20:10 [From Toradol] Review of Systems ROS Statement: Those systems with pertinent positive or pertinent negative responses have been documented in the HPI. ROS Other: All systems not noted in ROS Statement are negative. Past Medical History Past Medical History: Coronary Artery Disease (CAD), Chest Pain / Angina, Deep Vein Thrombosis (DVT), GERD/Reflux, Hyperlipidemia, Hypertension, Osteoarthritis (OA), Thyroid Disorder Additional Past Medical History / Comment(s): Occasional palpitations, gastritis, small hiatal hernia, diverticular dx, pt states years ago he had PUD, chronic low back pain, chronic pain syndrome, migraines, DVT L arm, numbness/tingling bilateral lower legs, bilateral past R hand fracture, arthritis multiple joints, hyperthyroid, sinus problems. History of Any Multi-Drug Resistant Organisms: None Reported Past Surgical History: Back Surgery, Cholecystectomy, Heart Catheterization With Stent, Orthopedic Surgery Additional Past Surgical History / Comment(s): EGDs/colonoscopies, multiple low back surgeries, bilateral arm and bilateral thigh surgeries for brown recluse spider bites with infection, morphine pain pump insertion and removal due to infection, PCI with stents, L rotator cuff repair, L knee arthroscopy, cervical fusion/cage, R cataract removal.left knee replacement 10/27/2023 Past Anesthesia/Blood Transfusion Reactions: No Reported Reaction Additional Past Anesthesia/Blood Transfusion Reaction / Comment(s): 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 states he was "down for 12 minutes" lower back surgery Date of Last Stent Placement:: 10/12/17 Past Psychological History: Anxiety Smoking Status: Former smoker Past Alcohol Use History: None Reported Past Drug Use History: None Reported - Past Family History Father Family Medical History: No Reported History Additional Family Medical History / Comment(s): Father had back problems. He l ived to be 82 yrs old. Mother History Unknown: Yes Family Medical History: Hypertension, Myocardial Infarction ([place]) Additional Family Medical History / Comment(s): Mother of a [place] at the age of 55yrs. Brother(s) Family Medical History: Cancer, COPD Additional Family Medical History / Comment(s): Leukemia General Exam Limitations: no limitations General appearance: alert, in no apparent distress Head exam: Present: atraumatic, normocephalic, normal inspection Eye exam: Present: normal appearance, PERRL, EOMI. Absent: scleral icterus, conjunctival injection, periorbital swelling ENT exam: Present: normal exam, mucous membranes moist Neck exam: Present: normal inspection. Absent: tenderness, meningismus, lymphadenopathy Respiratory exam: Present: normal lung sounds bilaterally. Absent: respiratory distress, wheezes, rales, rhonchi, stridor Cardiovascular Exam: Present: regular rate, normal rhythm, normal heart sounds. Absent: systolic murmur, diastolic murmur, rubs, gallop, clicks GI/Abdominal exam: Present: soft, normal bowel sounds. Absent: distended, tenderness, guarding, rebound, rigid Extremities exam: Present: normal inspection, full ROM, normal capillary refill. Absent: tenderness, pedal edema, joint swelling, calf tenderness Back exam: Present: normal inspection Neurological exam: Present: alert, oriented X3, CN II-XII intact Psychiatric exam: Present: normal affect, normal mood Skin exam: Present: warm, dry, intact, normal color. Absent: rash Course Vital Signs 02/28/24 02/28/24 20:08 21:36 Temperature 97.8 F Pulse Rate 92 73 Respiratory 18 18 Rate Blood Pressure 176/106 147/94 O2 Sat by Pulse 99 97 Oximetry - Reevaluation(s) Reevaluation #1: 02/28/24 Medical record is reviewed Reevaluation #2: 02/28/24 Patient symptoms are improved here in the ER Reevaluation #3: 02/28/24 Patient informed of results and questions answered Reevaluation #4: Was pt. sent in by a medical professional or institution (, PA, MOVIE THEATER USHER, urgent care, hospital, or [facility]...) When possible be specific @ -no Did you speak to anyone other than the patient for history (EMS, parent, family, police, friend...)? What history was obtained from this source @ -no Did you review nursing and triage notes (agree or disagree)? Why? @ -agree Are old charts reviewed (outside hosp., previous admission, EMS record, old EKG, old radiological studies, urgent care reports/EKG's, [facility] records)? Report findings @ -yes Differential Diagnosis (chest pain, altered mental status, abdominal pain women, abdominal pain men, vaginal bleeding, weakness, fever, dyspnea, syncope, headache, dizziness, GI bleed, back pain, seizure, CVA, palpatations, mental health, musculoskeletal)? @ -prior EKG interpreted by me (3pts min.). @ -no X-rays interpreted by me (1pt min.). @ -yes negative for acute disease CT interpreted by me (1pt min.). @ -no U/S interpreted by me (1pt. min.). @ -no What testing was considered but not performed or refused? (CT, X-rays, U/S, labs)? Why? @ -none What meds were considered but not given or refused? Why? @ -none Did you discuss the management of the patient with other professionals (professionals i.e. , PA, MOVIE THEATER USHER, lab, RT, psych nurse, delinquency prevention social worker, educational recruiter, teacher, immigration officer, case therapist)? Give summary @ -no Was smoking cessation discussed for >3mins.? @ -no Was critical care preformed (if so, how long)? @ -no Were there social determinants of health that impacted care today? How? (Homelessness, low income, unemployed, alcoholism, drug addiction, transportation, low edu. Level, literacy, decrease access to med. care, long-term, rehab)? @ -none Was there de-escalation of care discussed even if they declined (Discuss DNR or withdrawal of care, Hospice)? DNR status @ -no What co-morbidities impacted this encounter? (DM, HTN, Smoking, COPD, CAD, Cancer, CVA, ARF, Chemo, Hep., AIDS, mental health diagnosis, sleep apnea, m orbid obesity)? @ -none Was patient admitted / discharged? Hospital course, mention meds given and route, prescriptions, significant lab abnormalities, going to OR and other pertinent info. @ - 68 male to ER for evaluation patient [facility] for evaluation of abdominal pain with nausea vomiting. Patient is well-controlled here in the ER. Patient feels improved and can be discharged home Discharge Undiagnosed new problem with uncertain prognosis? @ -no Drug Therapy requiring intensive monitoring for toxicity (Heparin, Nitro, Insulin, Cardizem)? @ -no Were any procedures done? @ -no Diagnosis/symptom? @ -Abdominal pain, nausea vomiting Acute, or Chronic, or Acute on Chronic? @ -Acute Uncomplicated (without systemic symptoms) or Complicated (systemic symptoms)? @ -Complicated Side effects of treatment? @ -no Exacerbation, Progression, or Severe Exacerbation? @ -exacerbation Poses a threat to life or bodily function? How? (Chest pain, [place], [place], pneumonia, PE, COPD, DKA, ARF, appy, cholecystitis, CVA, Diverticulitis, Homicidal, Suicidal, threat to staff... and all critical care pts) @ -no Reevaluation #5: Differential Abdominal Pain Men: Appendicitis, cholecystitis, diverticulosis, ischemic bowel, pancreatitis, hepatitis, UTI, gastroenteritis, AAA, incarcerated hernia, bowel obstruction, constipation, inflammatory bowel, hepatitis, peptic ulcer disease, splenic infarction, perforated viscus, testicular torsion, this is not meant to be an all-inclusive list Medical Decision Making - Medical Decision Making 68 male to ER for evaluation patient [facility] for evaluation of abdominal pain with nausea vomiting. Patient is well-controlled here in the ER. Patient feels improved and can be discharged home - Radiology Data Radiology results: report reviewed (XR KUB is negative for acute disease), image reviewed Disposition Clinical Impression: Vomiting, Abdominal pain Disposition: HOME SELF-CARE Condition: Good Instructions (If sedation given, give patient instructions): Acute Nausea and Vomiting (ED), Abdominal Pain (ED) Is patient prescribed a controlled substance at d/c from ED?: No Referrals: None,Stated [Primary Care Provider] - 1-2 days Time of Disposition: 20:37
[2024-02-28] MEDS: droPERidol 5 MG/2 ML VIAL IM ONE (20:53)
[2024-02-28] MEDS: diphenhydrAMINE 50 MG CAP PO STA (20:53)
[2024-02-28] MEDS: HYDROmorphone 1 MG/ML 1 ML SYRINGE IM STA (20:54)
--- NOTE | 2024-02-28 21:16 | XR ---
EXAMINATION TYPE: XR KUB portable DATE OF EXAM: 02/28/2024 COMPARISON: NONE HISTORY: Pain TECHNIQUE: Single supine KUB image of the abdomen is obtained FINDINGS: Small bowel demonstrates no evidence for dilatation or air fluid levels. Gas and fecal material is seen in non-distended colon. No convincing evidence for pneumoperitoneum. No unusual calcifications. The lung bases are clear. The osseous structures are intact. Postoperative changes lumbar spine. IMPRESSION: 1. Overall nonobstructive bowel gas pattern.
[2024-02-28 21:46] VITALS: BP 147/94; PULSE 73
== END 2024-02-28 21:37 | disposition home or self-care (01) ==
LOC: EC 20:01
DX: R11.2 Nausea with vomiting, unspecified (principal); R10.9 Unspecified abdominal pain; Z87.891 Personal history of nicotine dependence; Z88.6 Allergy status to analgesic agent; Z88.5 Allergy status to narcotic agent; Z90.49 Acquired absence of other specified parts of digestive tract; Z95.5 Presence of coronary angioplasty implant and graft
CPT/HCPCS: 74018; 99284; 96372 ×2; J1170; J1790

== ENCOUNTER 2024-03-16 23:12 | Observation (INO) | payer MEDICARE, OTHER ==
--- NOTE | 2024-03-17 02:23 | XR ---
EXAM: XR Chest, 2 Views CLINICAL HISTORY: ITS.REASON XR Reason: Chest Pain TECHNIQUE: Frontal and lateral views of the chest. COMPARISON: No relevant prior studies available. FINDINGS: Lungs: No consolidation or mass. Tortuous aorta. Pleural space: No effusion. Heart: No cardiomegaly. Bones/joints: No acute findings. IMPRESSION: No acute cardiopulmonary process.
[2024-03-17 02:48] LABS: Basophils % (A) 0 %; Eosinophils # (A) 0.1 k/uL (0-0.7); Eosinophils % (A) 1 %; HCT 42.8 % (39.0-53.0); HGB 13.4 gm/dL (13.0-17.5); Lymphocytes % (A) 15 %; MCHC 31.4 g/dL (31.0-37.0); MCV 92.3 fL (80.0-100.0); Mean Platelet Volume 6.8; Monocytes # (A) 0.3 k/uL (0-1.0); Monocytes % (A) 4 %; Neutrophils # (A) 5.5 k/uL (1.3-7.7); Neutrophils % (A) 79 %; Platelet Count 347 k/uL (150-450); RBC 4.64 m/uL (4.30-5.90); RDW 14.5 % (11.5-15.5)
[2024-03-17 03:01] LABS: ALT 13 U/L (4-49); AST 21 U/L (17-59); African American GFR (CKD) >90 (>60 ml/min/1.73 sqM); Albumin 4.8 g/dL (3.5-5.0); Alkaline Phosphatase 100 U/L (38-126); Anion Gap 12 mmol/L; Blood Urea Nitrogen 5 mg/dL (9-20); Calcium 9.9 mg/dL (8.4-10.2); Carbon Dioxide 21 mmol/L (22-30); Chloride 106 mmol/L (98-107); Glucose 138 mg/dL (74-99); Magnesium 1.8 mg/dL (1.6-2.3); Non-African American GFR(CKD) >90 (>60 ml/min/1.73 sqM); Partial Thromboplastin Time 25.1 sec (22.0-30.0); Prothrombin Time 10.8 sec (10.0-12.5); Sodium 139 mmol/L (137-145); Total Bilirubin 0.8 mg/dL (0.2-1.3); Total Protein 8.1 g/dL (6.3-8.2)
[2024-03-17] MEDS: ONDANSETRON 4 MG/2 ML VIAL IVP STA (04:15)
--- NOTE | 2024-03-17 04:56 | ED ---
Chest Pain HPI - General Chief Complaint: Chest Pain Stated Complaint: chest pain left arm pain Time Seen by Provider: 03/17/24 01:59 Source: patient Mode of arrival: ambulatory Limitations: no limitations - History of Present Illness Initial Comments: 68-year-old male with a past medical history significant for coronary artery disease presents to the ED with complaints of chest pain. Patient reports he was at rest when he started to feel pain on the left side of his chest radiating to the left side of his neck and his left arm. Does note some associated nausea and vomiting with this as well. No shortness of breath. No fever or chills. No other complaints at this time. - Related Data Home Medications Medication Instructions Recorded Confirmed tiZANidine [Zanaflex] 4 mg PO BID 02/26/18 02/09/24 oxyCODONE-APAP 10-325MG [Percocet 1 tab PO BID PRN 01/02/20 02/09/24 10-325 mg] Aspirin EC [Ecotrin Low Dose] 81 mg PO DAILY 04/23/23 02/09/24 Folic Acid 1 mg PO DAILY 04/23/23 02/09/24 Gabapentin [Neurontin] 400 mg PO TID 06/27/23 02/09/24 Morphine Sulfate ER [Ms Contin] 30 mg PO DAILY 10/22/23 02/09/24 oxyCODONE HCL [oxyCODONE HCL (IR)] 10 mg PO BID 12/27/23 02/09/24 Previous Rx's Medication Instructions Recorded Nitroglycerin Sl Tabs [Nitrostat] 0.4 mg SUBLINGUAL Q5M PRN #30 tab 07/23/23 Isosorbide Mononitrate ER [Imdur] 30 mg PO DAILY #30 tab 12/28/23 Losartan [Cozaar] 50 mg PO DAILY #30 tab 12/28/23 Metoprolol Tartrate [Lopressor] 100 mg PO BID #60 tab 12/28/23 amLODIPine [Norvasc] 10 mg PO DAILY #30 tab 12/28/23 hydrALAZINE HCL [Apresoline] 100 mg PO TID #90 tab 12/28/23 methIMAzole [Tapazole] 5 mg PO BID #60 tab 12/28/23 SUMAtriptan succinate [Imitrex] 25 mg PO Q4H #5 tablet 01/01/24 methylPREDNISolone Dose Pack 4 mg PO DIRECTED #21 tab 02/12/24 [Medrol Dose Pack] Allergies Allergy/AdvReac Type Severity Reaction Status Date / Time codeine Allergy Itching Verified 03/16/24 23:36 ibuprofen [From Motrin] Allergy Rash/Hives Verified 03/16/24 23:36 ketorolac tromethamine Allergy Rash/Hives Verified 03/16/24 23:36 [From Toradol] Review of Systems ROS Statement: Those systems with pertinent positive or pertinent negative responses have been documented in the HPI. ROS Other: All systems not noted in ROS Statement are negative. Past Medical History Past Medical History: Coronary Artery Disease (CAD), Chest Pain / Angina, Deep Vein Thrombosis (DVT), GERD/Reflux, Hyperlipidemia, Hypertension, Osteoarthritis (OA), Thyroid Disorder Additional Past Medical History / Comment(s): Occasional palpitations, gastritis, small hiatal hernia, diverticular dx, pt states years ago he had PUD, chronic low back pain, chronic pain syndrome, migraines, DVT L arm, numbness/tingling bilateral lower legs, bilateral past R hand fracture, arthritis multiple joints, hyperthyroid, sinus problems. History of Any Multi-Drug Resistant Organisms: None Reported Past Surgical History: Back Surgery, Cholecystectomy, Heart Catheterization With Stent, Orthopedic Surgery Additional Past Surgical History / Comment(s): EGDs/colonoscopies, multiple low back surgeries, bilateral arm and bilateral thigh surgeries for brown recluse spider bites with infection, morphine pain pump insertion and removal due to infection, PCI with stents, L rotator cuff repair, L knee arthroscopy, cervical fusion/cage, R cataract removal.left knee replacement 10/27/2023 Past Anesthesia/Blood Transfusion Reactions: No Reported Reaction Additional Past Anesthesia/Blood Transfusion Reaction / Comment(s): 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 states he was "down for 12 minutes" lower back surgery Date of Last Stent Placement:: 10/12/17 Past Psychological History: Anxiety Smoking Status: Former smoker Past Alcohol Use History: None Reported Past Drug Use History: None Reported - Past Family History Father Family Medical History: No Reported History Additional Family Medical History / Comment(s): Father had back problems. He lived to be 82 yrs old. Mother History Unknown: Yes Family Medical History: Hypertension, Myocardial Infarction ([place]) Additional Family Medical History / Comment(s): Mother of a [place] at the age of 55yrs. Brother(s) Family Medical History: Cancer, COPD Additional Family Medical History / Comment(s): Leukemia General Exam Limitations: no limitations General appearance: alert Eye exam: Present: normal appearance Neck exam: Present: normal inspection Respiratory exam: Present: normal lung sounds bilaterally Cardiovascular Exam: Present: regular rate GI/Abdominal exam: Present: soft Neurological exam: Present: alert, oriented X3 Skin exam: Present: warm, dry Course Vital Signs 03/16/24 03/17/24 03/17/24 23:36 01:56 02:39 Temperature 98.2 F 97.2 F L Pulse Rate 103 H 91 90 Respiratory 18 24 26 H Rate Blood Pressure 205/110 206/121 178/109 O2 Sat by Pulse 98 100 100 Oximetry 03/17/24 04:11 Temperature Pulse Rate 105 H Respiratory 20 Rate Blood Pressure 175/101 O2 Sat by Pulse 99 Oximetry Chest Pain MDM - MDM Was pt. sent in by a medical professional or institution (, PA, IRRIGATION TAX ASSESSOR COLLECTOR, urgent care, hospital, or [facility]...) When possible be specific @ -No Did you speak to anyone other than the patient for history (EMS, parent, family, police, friend...)? What history was obtained from this source @ -No Did you review nursing and triage notes (agree or disagree)? Why? @ -I reviewed and agree with nursing and triage notes Were old charts reviewed (outside hosp., previous admission, EMS record, old EKG, old radiological studies, urgent care reports/EKG's, [facility] records)? Report findings @ -No old charts were reviewed Differential Diagnosis (chest pain, altered mental status, abdominal pain women, abdominal pain men, vaginal bleeding, weakness, fever, dyspnea, syncope, headache, dizziness, GI bleed, back pain, seizure, CVA, palpatations, mental h ealth, musculoskeletal)? @ -Differential Chest Pain: Stable Angina, Unstable Angina, STEMI, NSTEMI Aortic Dissection, Pneumothorax, Musculoskeletal, Esophageal Spasm GERD, Cholecystitis, Pancreatitis, Zoster, this is not meant to be an all-inclusive list. EKG interpreted by me (3pts min.). @ -EKG interpreted me showing a sinus rhythm with nonspecific findings which appears similar to prior the rate of 97 bpm. [place] 147, QRS 97, 370/425. X-rays interpreted by me (1pt min.). @ -Chest x-ray interpreted me which revealed no evidence of acute finding. CT interpreted by me (1pt min.). @ -None done U/S interpreted by me (1pt. min.). @ -None done What testing was considered but not performed or refused? (CT, X-rays, U/S, labs)? Why? @ -None What meds were considered but not given or refused? Why? @ -None Did you discuss the management of the patient with other professionals (professionals i.e. DrYana, PA, IRRIGATION TAX ASSESSOR COLLECTOR, lab, RT, psych nurse, clinical social worker, nursery supervisor, teacher, chief sales officer, ed case manager)? Give summary @ -No Was smoking cessation discussed for >3mins.? @ -No Was critical care preformed (if so, how long)? @ -No Were there social determinants of health that impacted care today? How? (Homelessness, low income, unemployed, alcoholism, drug addiction, transportation, low edu. Level, literacy, decrease access to med. care, detention, rehab)? @ -No Was there de-escalation of care discussed even if they declined (Discuss DNR or withdrawal of care, Hospice)? DNR status @ -No What co-morbidities impacted this encounter? (DM, HTN, Smoking, COPD, CAD, Cancer, CVA, ARF, Chemo, Hep., AIDS, mental health diagnosis, sleep apnea, morbid obesity)? @ -Coronary artery disease Was patient admitted / discharged? Hospital course, mention meds given and route, prescriptions, significant lab abnormalities, going to OR and other pertinent info. @ -Admission 68-year-old male presents to the ED with chest pain occurring at rest on the left side of his chest seems to radiate to the left side of his neck and left arm with some associated nausea and vomiting. Laboratory studies reviewed. Labs including CBC CMP largely unremarkable. Initial troponin undetectable. Chest x-ray revealed no evidence of acute finding. EKG showed a sinus rhythm with nonspecific findings patient will be admitted to observation with consult to cardiology to rule out ACS. Discussed plan of care with patient who is in agreement. Undiagnosed new problem with uncertain prognosis? @ -No Drug Therapy requiring intensive monitoring for toxicity (Heparin, Nitro, Insulin, Cardizem)? @ -No Were any procedures done? @ -No Diagnosis/symptom? @ -Chest pain Acute, or Chronic, or Acute on Chronic? @ -Acute Uncomplicated (without systemic symptoms) or Complicated (systemic symptoms)? @ -Uncomplicated Side effects of treatment? @ -No Exacerbation, Progression, or Severe Exacerbation? @ -No Poses a threat to life or bodily function? How? (Chest pain, [place], [place], pneumonia, PE, COPD, DKA, ARF, appy, cholecystitis, CVA, Diverticulitis, Homicidal, Suicidal, threat to staff... and all critical care pts) @ -Possibly, however at this time unlikely Disposition Clinical Impression: Chest pain Disposition: ADMITTED IP TO THIS HOSP Condition: Good Referrals: None,Stated [Primary Care Provider] - 1-2 days Time of Disposition: 05:01
[2024-03-17] MEDS ORDERED: NITROGLYCERIN SL TABS 0.4 MG TAB SUBLINGUAL PRN (05:02)
[2024-03-17] MEDS ORDERED: NALOXONE 0.4 MG/ML 1 ML VIAL IV PRN (05:03)
[2024-03-17] MEDS ORDERED: HYDROmorphone 0.5 MG/0.5 ML SYRINGE IVP PRN (05:03)
[2024-03-17] MEDS ORDERED: ACETAMINOPHEN TAB 325 MG TAB PO PRN (05:03)
[2024-03-17] MEDS: METOCLOPRAMIDE 5 MG/ML 2 ML VIAL IVP STA (05:28)
[2024-03-17] MEDS: NITROGLYCERIN SL TABS 0.4 MG TAB SUBLINGUAL STA (05:28)
[2024-03-17] MEDS: SODIUM CHLORIDE 0.9% 1,000 ML IV SCH (05:29)
[2024-03-17] MEDS: hydrALAZINE HCL 20 MG/ML 1 ML VIAL IVP STA (05:29)
[2024-03-17] MEDS: HYDROmorphone 0.5 MG/0.5 ML SYRINGE IVP STA (05:29)
--- NOTE | 2024-03-17 05:37 | XR ---
EXAM: XR Left Foot Complete, Two Views CLINICAL HISTORY: Left foot swelling- patient unable to tolerate complete XR TECHNIQUE: Frontal and lateral views of the left foot. COMPARISON: No relevant prior studies available. FINDINGS: Bones/joints: Mild hallux valgus deformity of the first digit. Degenerative changes of the first digit interphalangeal joint. No bone erosion or periosteal reaction.. No acute fracture. No dislocation. Soft tissues: Generalized soft tissue swelling, greatest in the posterior and plantar aspect of the foot.. No interstitial gas. Vascular calcifications. No radiopaque foreign body. IMPRESSION: Posterior and plantar soft tissue swelling without interstitial gas consistent with edema versus cellulitis. No underlying acute osseous abnormality. Degenerative changes of the first digit.
[2024-03-17] MEDS: ACETAMINOPHEN TAB 500 MG TAB PO STA (07:14)
[2024-03-17] MEDS ORDERED: MORPHINE SULFATE ER 30 MG TABLET PO SCH (09:00)
--- NOTE | 2024-03-17 09:37 | P.CRDCN ---
History of Present Illness History of present illness: HISTORY OF PRESENT ILLNESS: This is a 68-year-old male with a past medical history significant for coronary artery disease with previous stenting, hypertension, hyperlipidemia, and chronic pain with long-term opioid use. Patient follows in the office with Dr. Go. We have been asked to see the patient in consultation for chest pain. Patient examined at the bedside. Patient states he reported to the hospital to chief complaint of abdominal pain. Patient states he has been nauseated and throwing up since yesterday. He reports significant abdominal pain this morning. He states he has not been passing flatus or having a bowel movements. He currently denies chest pain or pressure. He denies shortness of breath. Vital signs are stable. DIAGNOSTICS: - EKG reveals sinus mechanism with no signs of acute ischemia. - Chest xray negative for acute process. - Laboratory data: WBC 7.0. Hemoglobin 13.4. Platelet count 347. Sodium 139. Potassium 4.0. BUN 5. Creatinine 0.58. Magnesium 1.8. Troponin negative x 2. - Current home cardiac medications include aspirin 81 mg daily, Imdur 30 mg daily, losartan 50 mg daily, metoprolol tartrate 100 mg twice a day, amlodipine 10 mg daily, hydralazine 100 mg 3 times a day. - Most recent echocardiogram obtained in April 2023 revealed ejection fraction 60 to 65% with trace TR - Cardiac catheterization history: June 2023 revealing widely patent LAD and diagonal at the site of stenting. He has a codominant system. No significant disease in RCA or circumflex. Normal filling pressures. No gradient. Medical management was recommended. -Patient underwent Lexiscan stress test on 12/28/2023 which was negative for ischemia REVIEW OF SYSTEMS: At the time of my exam: CONSTITUTIONAL: Denies fever or chills. HEENT: Denies blurred vision, vision changes, or eye pain. Denies hemoptysis CARDIOVASCULAR: Denies chest pain. Denies orthopnea. Denies PND. Denies palpitations RESPIRATORY: Denies shortness of breath. GASTROINTESTINAL: Denies abdominal pain. Denies nausea or vomiting. HEMATOLOGIC: Denies bleeding disorders. GENITOURINARY: Denies any blood in urine. SKIN: Denies pruitis. Denies rash. PHYSICAL EXAM: VITAL SIGNS: Reviewed. GENERAL: Well-developed in no acute distress. HEENT: Head is normocephalic. Pupils are equal, round. Sclerae anicteric. Mucous membranes of the mouth are moist. Neck supple. No JVD or thyromegaly LUNGS: Respirations even and unlabored. Lungs essentially clear to auscultation bilaterally. HEART: Regular rate and rhythm. S1 and S2 heard. ABDOMEN: Soft. Diffuse tenderness with palpation EXTREMITIES: Normal range of motion. No clubbing or cyanosis. Peripheral pulses intact. No lower extremity edema NEUROLOGIC: Awake and alert. Oriented x 3. ASSESSMENT: Abdominal pain Nausea and vomiting Coronary artery disease with previous stenting Hypertension Hyperlipidemia Chronic pain with long-term opioid use PLAN: An acute coronary and has been ruled out Resume home cardiac medications Add atorvastatin 80 mg at night Patient symptoms are GI related including abdominal pain, nausea, vomiting, no bowel movement, and not passing flatus. No acute cardiac issues are present We will sign off. Please reconsult if needed. Nurse practitioner note has been reviewed by physician. Signing provider agrees with the documented findings, assessment, and plan of care documented by SIGNAL OPERATOR LINGUIST as a scribe. Past Medical History Past Medical History: Coronary Artery Disease (CAD), Chest Pain / Angina, Deep Vein Thrombosis (DVT), GERD/Reflux, Hyperlipidemia, Hypertension, Osteoarthritis (OA), Thyroid Disorder Additional Past Medical History / Comment(s): Occasional palpitations, gastritis, small hiatal hernia, diverticular dx, pt states years ago he had PUD, chronic low back pain, chronic pain syndrome, migraines, DVT L arm, numbness/tingling bilateral lower legs, bilateral past R hand fracture, arthritis multiple joints, hyperthyroid, sinus problems. History of Any Multi-Drug Resistant Organisms: None Reported Past Surgical History: Back Surgery, Cholecystectomy, Heart Catheterization With Stent, Orthopedic Surgery Additional Past Surgical History / Comment(s): EGDs/colonoscopies, multiple low back surgeries, bilateral arm and bilateral thigh surgeries for brown recluse spider bites with infection, morphine pain pump insertion and removal due to infection, PCI with stents, L rotator cuff repair, L knee arthroscopy, cervical fusion/cage, R cataract removal.left knee replacement 10/27/2023 Past Anesthesia/Blood Transfusion Reactions: No Reported Reaction Additional Past Anesthesia/Blood Transfusion Reaction / Comment(s): 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 states he was "down for 12 minutes" lower back surgery Date of Last Stent Placement:: 10/12/17 Past Psychological History: Anxiety Smoking Status: Former smoker Past Alcohol Use History: None Reported Past Drug Use History: None Reported - Past Family History Father Family Medical History: No Reported History Additional Family Medical History / Comment(s): Father had back problems. He lived to be 82 yrs old. Mother History Unknown: Yes Family Medical History: Hypertension, Myocardial Infarction ([place]) Additional Family Medical History / Comment(s): Mother of a [place] at the age of 55yrs. Brother(s) Family Medical History: Cancer, COPD Additional Family Medical History / Comment(s): Leukemia Medications and Allergies Home Medications Medication Instructions Recorded Confirmed Type tiZANidine [Zanaflex] 4 mg PO BID 02/26/18 03/17/24 History oxyCODONE-APAP 10-325MG [Percocet 1 tab PO BID PRN 01/02/20 03/17/24 History 10-325 mg] Aspirin EC [Ecotrin Low Dose] 81 mg PO DAILY 04/23/23 03/17/24 History Folic Acid 1 mg PO DAILY 04/23/23 03/17/24 History Gabapentin [Neurontin] 400 mg PO TID 06/27/23 03/17/24 History Nitroglycerin Sl Tabs [Nitrostat] 0.4 mg SUBLINGUAL Q5M PRN #30 tab 07/23/23 03/17/24 Rx Isosorbide Mononitrate ER [Imdur] 30 mg PO DAILY #30 tab 12/28/23 03/17/24 Rx Losartan [Cozaar] 50 mg PO DAILY #30 tab 12/28/23 03/17/24 Rx Metoprolol Tartrate [Lopressor] 100 mg PO BID #60 tab 12/28/23 03/17/24 Rx amLODIPine [Norvasc] 10 mg PO DAILY #30 tab 12/28/23 03/17/24 Rx hydrALAZINE HCL [Apresoline] 100 mg PO TID #90 tab 12/28/23 03/17/24 Rx methIMAzole [Tapazole] 5 mg PO BID #60 tab 12/28/23 03/17/24 Rx SUMAtriptan succinate [Imitrex] 25 mg PO Q4H #5 tablet 01/01/24 03/17/24 Rx Morphine Sulfate ER [Ms Contin] 15 mg PO Q12HR 03/17/24 03/17/24 History Allergies Allergy/AdvReac Type Severity Reaction Status Date / Time codeine Allergy Itching Verified 03/17/24 07:24 ibuprofen [From Motrin] Allergy Rash/Hives Verified 03/17/24 07:24 ketorolac tromethamine Allergy Rash/Hives Verified 03/17/24 07:24 [From Toradol] Physical Exam Vitals: Vital Signs Temp Pulse Pulse Resp BP BP Pulse Ox 03/17/24 07:15 98.4 F 116 H 18 143/82 98 03/17/24 07:00 98.2 F 113 H 16 178/88 100 03/17/24 06:39 113 H 20 152/76 99 03/17/24 05:48 96 20 182/103 99 03/17/24 04:11 105 H 20 175/101 99 03/17/24 02:39 90 26 H 178/109 100 03/17/24 01:56 97.2 F L 91 24 206/121 100 03/16/24 23:36 98.2 F 103 H 18 205/110 98 Intake and Output 03/16/24 03/17/24 03/17/24 22:59 06:59 14:59 Other: Weight 82.554 kg Results 03/17/24 02:31 03/17/24 02:31 Cardiac Enzymes 03/17/24 03/17/24 03/17/24 Range/Units 02:31 02:31 04:50 AST 21 (17-59) U/L Troponin I <0.012 <0.012 (0.000-0.034) ng/mL Coagulation 03/17/24 Range/Units 02:31 PT 10.8 (10.0-12.5) sec APTT 25.1 (22.0-30.0) sec CBC 03/17/24 Range/Units 02:31 WBC 7.0 (3.8-10.6) k/uL RBC 4.64 (4.30-5.90) m/uL Hgb 13.4 (13.0-17.5) gm/dL Hct 42.8 (39.0-53.0) % Plt Count 347 (150-450) k/uL Comprehensive Metabolic Panel 03/17/24 Range/Units 02:31 Sodium 139 (137-145) mmol/L Potassium 4.0 (3.5-5.1) mmol/L Chloride 106 (98-107) mmol/L Carbon Dioxide 21 L (22-30) mmol/L BUN 5 L (9-20) mg/dL Creatinine 0.58 L (0.66-1.25) mg/dL Glucose 138 H (74-99) mg/dL Calcium 9.9 (8.4-10.2) mg/dL AST 21 (17-59) U/L ALT 13 (4-49) U/L Alkaline Phosphatase 100 (38-126) U/L Total Protein 8.1 (6.3-8.2) g/dL Albumin 4.8 (3.5-5.0) g/dL Current Medications Generic Name Dose Route Start Last Admin Trade Name Freq PRN Reason Stop Dose Admin Acetaminophen 650 mg 03/17/24 05:03 Acetaminophen Tab 325 Mg Tab PO Q6HR PRN Mild Pain or Fever > 100.5 Amlodipine Besylate 10 mg 03/17/24 09:00 Amlodipine 10 Mg Tab PO DAILY [facility] Aspirin 81 mg 03/17/24 09:00 Aspirin 81 Mg PO DAILY [facility] Gabapentin 400 mg 03/17/24 09:00 Gabapentin 400 Mg Cap PO TID [facility] Hydralazine HCl 100 mg 03/17/24 09:00 Hydralazine Hcl 50 Mg Tab PO TID [facility] Hydromorphone HCl 0.5 mg 03/17/24 05:03 Hydromorphone 0.5 Mg/0.5 Ml Syringe IVP Q3HR PRN Moderate Pain (Scale 4 to 6) Sodium Chloride 1,000 mls @ 20 mls/hr 03/17/24 05:15 03/17/24 05:29 Saline 0.9% IV 20 mls/hr .Q24H YESICA Administration Isosorbide Mononitrate 30 mg 03/17/24 09:00 Isosorbide Mononitrate Er 30 Mg Tab.Er.24h PO DAILY [facility] Losartan Potassium 50 mg 03/17/24 09:00 Losartan 50 Mg Tab PO DAILY [facility] Metoprolol Tartrate 100 mg 03/17/24 09:00 Metoprolol Tartrate 50 Mg Tab PO BID [facility] Morphine Sulfate 15 mg 03/17/24 09:00 Morphine Sulfate Er 15 Mg Tablet PO BID [facility] Protocol Naloxone HCl 0.2 mg 03/17/24 05:03 Naloxone 0.4 Mg/Ml 1 Ml Vial IV Q2M PRN Opioid Reversal Nitroglycerin 0.4 mg 03/17/24 05:02 Nitroglycerin Sl Tabs 0.4 Mg Tab SUBLINGUAL Q5M PRN Chest Pain Ondansetron HCl 4 mg 03/17/24 05:03 Ondansetron 4 Mg/2 Ml Vial IVP Q8HR PRN Nausea And Vomiting Intake and Output 03/16/24 03/17/24 03/17/24 22:59 06:59 14:59 Other: Weight 82.554 kg 03/17/24 02:31 03/17/24 02:31
[2024-03-17] MEDS: MORPHINE SULFATE ER 15 MG TABLET PO SCH (10:10)
[2024-03-17] MEDS: METOPROLOL TARTRATE 50 MG TAB PO SCH (10:10)
[2024-03-17] MEDS: ISOSORBIDE MONONITRATE ER 30 MG TAB.ER.24H PO SCH (10:10)
[2024-03-17] MEDS: amLODIPine 10 MG TAB PO SCH (10:11)
[2024-03-17] MEDS: ONDANSETRON 4 MG/2 ML VIAL IVP PRN (10:13)
[2024-03-17] MEDS: ASPIRIN 81 MG PO SCH (10:31)
[2024-03-17] MEDS: hydrALAZINE HCL 50 MG TAB PO SCH (10:32)
[2024-03-17] MEDS: GABAPENTIN 400 MG CAP PO SCH (10:32)
[2024-03-17] MEDS: LOSARTAN 50 MG TAB PO SCH (10:32)
--- NOTE | 2024-03-17 10:37 | P.HPIM ---
History of Present Illness H&P Date: 03/17/24 History of Presenting Illness: Patient is a 68-year-old male with a past medical history of CAD with previous stents, hypertension, hyperlipidemia, hyperthyroidism, COPD, chronic pain on MS Contin, anxiety and previous provoked DVT of left upper extremity. He presented to the emergency department overnight with a chief complaint of chest pain, abdominal pain, nausea, and vomiting. Patient reports the symptoms began on the morning of 03/16/2024 and have been persistent. He reports diffuse abdominal pain throughout abdomen accompanied by indigestion, intractable nausea and vomiting, and pressure across to his chest. Patient reports last bowel movement was 03/13/2024. He denies having any fevers, chills, diaphoresis, headache, lightheadedness, dizziness, palpitations, shortness of breath, cough or congestion, or experiencing any hematemesis, hemoptysis, melena, or hematochezia. Patient denies having any difficulties with or changes in his urinary function and does report it is common for him to go a couple of days without bowel movements. Upon arrival to the hospital, patient underwent evaluation. Vital signs upon arrival showing patient to have hypertensive urgency with blood pressure 205/110, heart rate 103, respiratory rate 18, temp 98.2 F, and SpO2 of 98% on room air. EKG was completed showing normal sinus rhythm at 97 bpm. Chest x-ray completed negative for acute cardiopulmonary process. Patient also reported left foot pain and swelling and x-ray left foot was completed showing posterior and plantar soft tissue swelling without interstitial gas consistent with edema. Labs were completed and reviewed. CBC unremarkable. Coagulation profile normal findings. BMP showing hypocarbia with bicarb of 21, anion gap of 12, BUN of 5, creatinine 0.58, and blood glucose of 138. Magnesium normal findings at 1.8. Liver profile unremarkable. And troponin less than 0.012 with repeat troponin of less than 0.012. Patient was admitted under services with consultation to cardiology. Review of systems: Pertinent positives and negatives as discussed in HPI, a complete review of systems was performed and all other systems are negative. Physical exam: Vital signs reviewed and stable. General: Nontoxic, no distress and appears stated age. Derm: Skin warm and dry, normal coloration for ethnicity. Head: Atraumatic, normocephalic and symmetric. Eyes: EOMs intact, no lid lag, and anicteric sclera Mouth: no lip lesions, mucus membranes moist Cardiovascular: regular rate and rhythm with normal S1S2, no murmur, positive posterior tibial pulses bilaterally, and cap refill < 2 seconds. Lungs: Respirations even, regular, and unlabored on room air. Lungs CTA bilaterally, no rhonchi, no rales, no wheezing, and no accessory muscle usage. Abdominal: soft, diffuse tenderness throughout all quadrants upon palpation, no guarding, no appreciable organomegaly Ext: ROM intact. No gross muscle atrophy, no edema, no contractures Neuro: Speech clear, face symmetrical and CN II-XII grossly intact with no noted focal neuro deficits Psych: Alert and oriented to person, place, time, and situation. Appropriate and pleasant affect. Assessment and Plan of Care: Intractable abdominal pain, nausea, and vomiting Chest pain with history of CAD Hypertensive urgency -Cardiology evaluated clearing patient from cardiac perspective. -Continue telemetry monitoring. -Order placed for KUB -Continue with symptomatic care and pain management with MS Contin and as needed Percocet for intractable pain as well as Zofran as needed for nausea/vomiting. -Continue cardiac medication regimen with aspirin 81 mg daily, atorvastatin 80 mg nightly, amlodipine 10 mg daily, hydralazine 100 mg 3 times daily, isosorbide mononitrate 30 mg daily, losartan 50 mg daily, and metoprolol 100 mg twice daily. Left foot pain -X-ray completed showing posterior and plantar soft tissues swelling without interstitial gas consistent with edema. No signs of cellulitis. -Order placed for left lower extremity Doppler to rule out DVT, as patient does have a history of DVT. History of CAD with previous stenting Hypertension Hyperlipidemia -Continue cardiac medication regimen with aspirin 81 mg daily, atorvastatin 80 mg nightly, amlodipine 10 mg daily, hydralazine 100 mg 3 times daily, isosorbide mononitrate 30 mg daily, losartan 50 mg daily, and metoprolol 100 mg twice daily. Hyperthyroidism -Continue daily medication regimen with methimazole 5 mg twice daily. Chronic pain with opioid dependence -Continue current pain medication regimen with MS Contin 15 mg twice daily, gabapentin 400 mg 3 times daily, and Percocet 10/325 mg twice daily as needed for intractable breakthrough pain. Data and imaging reviewed: As stated above in HPI. 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 This document was prepared using [employer] dictation software. Please allow for errors in lathe hand while rare they do occur. Zaki Polk, PETROLE[employer] REFINERY WORKER rendered care for this patient independently, reviewed the findings and plan as documented in the note above. I did not physically speak with or examine the patient on this date. Past Medical History Past Medical History: Coronary Artery Disease (CAD), Chest Pain / Angina, Deep Vein Thrombosis (DVT), GERD/Reflux, Hyperlipidemia, Hypertension, Osteoarthritis (OA), Thyroid Disorder Additional Past Medical History / Comment(s): Occasional palpitations, ga stritis, small hiatal hernia, diverticular dx, pt states years ago he had PUD, chronic low back pain, chronic pain syndrome, migraines, DVT L arm, numbness/tingling bilateral lower legs, bilateral past R hand fracture, arthritis multiple joints, hyperthyroid, sinus problems. History of Any Multi-Drug Resistant Organisms: None Reported Past Surgical History: Back Surgery, Cholecystectomy, Heart Catheterization With Stent, Orthopedic Surgery Additional Past Surgical History / Comment(s): EGDs/colonoscopies, multiple low back surgeries, bilateral arm and bilateral thigh surgeries for brown recluse spider bites with infection, morphine pain pump insertion and removal due to infection, PCI with stents, L rotator cuff repair, L knee arthroscopy, cervical fusion/cage, R cataract removal.left knee replacement 10/27/2023 Past Anesthesia/Blood Transfusion Reactions: No Reported Reaction Additional Past Anesthesia/Blood Transfusion Reaction / Comment(s): 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 states he was "down for 12 minutes" lower back surgery Date of Last Stent Placement:: 10/12/17 Past Psychological History: Anxiety Smoking Status: Former smoker Past Alcohol Use History: None Reported Past Drug Use History: None Reported - Past Family History Father Family Medical History: No Reported History Additional Family Medical History / Comment(s): Father had back problems. He lived to be 82 yrs old. Mother History Unknown: Yes Family Medical History: Hypertension, Myocardial Infarction (HI) Additional Family Medical History / Comment(s): Mother of a HI at the age of 55yrs. Brother(s) Family Medical History: Cancer, COPD Additional Family Medical History / Comment(s): Leukemia Medications and Allergies Home Medications Medication Instructions Recorded Confirmed Type tiZANidine [Zanaflex] 4 mg PO BID 02/26/18 03/17/24 History oxyCODONE-APAP 10-325MG [Percocet 1 tab PO BID PRN 01/02/20 03/17/24 History 10-325 mg] Aspirin EC [Ecotrin Low Dose] 81 mg PO DAILY 04/23/23 03/17/24 History Folic Acid 1 mg PO DAILY 04/23/23 03/17/24 History Gabapentin [Neurontin] 400 mg PO TID 06/27/23 03/17/24 History Nitroglycerin Sl Tabs [Nitrostat] 0.4 mg SUBLINGUAL Q5M PRN #30 tab 07/23/23 03/17/24 Rx Isosorbide Mononitrate ER [Imdur] 30 mg PO DAILY #30 tab 12/28/23 03/17/24 Rx Losartan [Cozaar] 50 mg PO DAILY #30 tab 12/28/23 03/17/24 Rx Metoprolol Tartrate [Lopressor] 100 mg PO BID #60 tab 12/28/23 03/17/24 Rx amLODIPine [Norvasc] 10 mg PO DAILY #30 tab 12/28/23 03/17/24 Rx hydrALAZINE HCL [Apresoline] 100 mg PO TID #90 tab 12/28/23 03/17/24 Rx methIMAzole [Tapazole] 5 mg PO BID #60 tab 12/28/23 03/17/24 Rx SUMAtriptan succinate [Imitrex] 25 mg PO Q4H #5 tablet 01/01/24 03/17/24 Rx Morphine Sulfate ER [Ms Contin] 15 mg PO Q12HR 03/17/24 03/17/24 History Atorvastatin [Lipitor] 40 mg PO DAILY 30 Days #30 tablet 03/18/24 Rx Metoclopramide HCl [Reglan] 10 mg PO BID 30 Days #60 tablet 03/18/24 Rx polyethylene glycoL 3350 [Miralax] 17 gm PO DAILY 30 Days #30 packet 03/18/24 Rx Allergies Allergy/AdvReac Type Severity Reaction Status Date / Time codeine Allergy Itching Verified 03/17/24 07:24 ibuprofen [From Motrin] Allergy Rash/Hives Verified 03/17/24 07:24 ketorolac tromethamine Allergy Rash/Hives Verified 03/17/24 07:24 [From Toradol] Physical Exam Vitals: Vital Signs Temp Pulse Resp BP Pulse Ox 03/17/24 07:15 98.4 F 116 H 18 143/82 98 03/17/24 06:39 113 H 20 152/76 99 03/17/24 05:48 96 20 182/103 99 03/17/24 04:11 105 H 20 175/101 99 03/17/24 02:39 90 26 H 178/109 100 03/17/24 01:56 97.2 F L 91 24 206/121 100 03/16/24 23:36 98.2 F 103 H 18 205/110 98 Intake and Output 03/16/24 03/17/24 03/17/24 22:59 06:59 14:59 Other: Weight 82.554 kg Results CBC & Chem 7: 03/18/24 06:12 03/18/24 06:12 Labs: Abnormal Lab Results - Last 24 Hours (Table) 03/17/24 Range/Units 02:31 Carbon Dioxide 21 L (22-30) mmol/L BUN 5 L (9-20) mg/dL Creatinine 0.58 L (0.66-1.25) mg/dL Glucose 138 H (74-99) mg/dL
[2024-03-17] MEDS ORDERED: MORPHINE SULFATE ER 15 MG TABLET PO SCH (10:45)
--- NOTE | 2024-03-17 11:31 | XR ---
EXAMINATION TYPE: XR abdomen 2V DATE OF EXAM: 03/17/2024 11:24 AM CLINICAL INDICATION:Male, 68 years old with history of abd pain; [facility] COMPARISON: 02/28/2024 abdomen radiograph TECHNIQUE: Two views of the abdomen were obtained. FINDINGS: The bowel gas pattern is nonspecific without dilated loops of small or large bowel. There i s no evidence for organomegaly or pneumoperitoneum. The osseous structures are intact. No abnormal calcifications are present. Fecal material and gas are demonstrated throughout the colon and rectum. IMPRESSION: Nonspecific bowel gas pattern without radiographic evidence for acute process.
--- NOTE | 2024-03-17 11:54 | US ---
EXAMINATION TYPE: US venous doppler duplex LE LT DATE OF EXAM: 03/17/2024 10:59 AM COMPARISON: NONE CLINICAL INDICATION: Male, 68 years old with history of LLE pain and swelling hx of DVT; LLE pain and swelling, hx of DVT per order. SIDE PERFORMED: Left TECHNIQUE: The lower extremity deep venous system is examined utilizing real time linear array sonog soren with graded compression, doppler sonography and color-flow sonography. VESSELS IMAGED: Common Femoral Vein Deep Femoral Vein Greater Saphenous Vein * Femoral Vein Popliteal Vein Small Saphenous Vein * Proximal Calf Veins (* superficial vessels) Left Leg: *No evidence of DVT. Anechoic area seen left medial knee: 3.1 x 0.8 x 0.4 cm. IMPRESSION: 1. No evidence for DVT left lower extremity imaged from the groin to the upper calf. 2. An elongated fluid collection measuring 3.1 x 0.8 cm medially, suspected small Miller's cyst.
[2024-03-17] MEDS: ONDANSETRON ODT 4 MG TAB PO PRN (12:12)
[2024-03-17] MEDS: oxyCODONE-APAP 10-325MG 1 EACH TAB PO PRN (16:34)
[2024-03-17] MEDS: HEPARIN SODIUM,PORCINE 5,000 UNIT/ML 1 ML VIAL SQ SCH (16:35)
[2024-03-17] MEDS: ATORVASTATIN 80 MG TAB PO SCH (20:25)
[2024-03-17] MEDS: methIMAzole 5 MG TAB PO SCH (20:26)
[2024-03-18 10:25] LABS: HCT 38.4 % (39.6-50.0); HGB 12.4 g/dL (13.0-17.0); MCH 29.1 pg (27.0-32.0); MCHC 32.3 g/dL (32.0-37.0); MCV 90.1 FL (80.0-97.0); Mean Platelet Volume 9.2 FL (9.5-12.2); NRBC Per 100 WBC 0 X 10*3/uL (0.00-0.01); Platelet Count 299 X 10*3/uL (140-440); RBC 4.26 X 10*6/uL (4.40-5.60); RDW 14.8 % (11.5-14.5); WBC 5.83 X 10*3/uL (4.50-10.00)
[2024-03-18 11:07] LABS: BUN/Creat Ratio 11.29 Ratio (12.00-20.00); Blood Urea Nitrogen 7.9 mg/dL (9.0-27.0); Calcium 9.3 mg/dL (8.7-10.3); Carbon Dioxide 23.6 mmol/L (21.6-31.8); Chloride 104 mmol/L (96-109); Chol/HDL Ratio 4.03 Ratio; Glucose 129 mg/dL (70-110); LDL Cholesterol,Calculated 150.2 mg/dL (0.0-131.0); Magnesium 2.1 mg/dL (1.5-2.4); Potassium 3.4 mmol/L (3.5-5.5); Sodium 141 mmol/L (135-145); VLDL Calculation 18.96 mg/dL (5.00-40.00)
[2024-03-18] MEDS: MAGNESIUM CITRATE 296 ML BOTTLE PO ONE (11:45)
[2024-03-18 14:15] VITALS: BP 159/89; PULSE 95; RESP 16; TEMP 97
[2024-03-18] MEDS: POTASSIUM CHLORIDE ER 20 MEQ TAB.ER PO STA (15:29)
--- NOTE | 2024-03-18 15:30 | P.DS ---
Providers Date of admission: 03/17/24 05:36 Expected date of discharge: 03/18/24 Attending physician: Leticia Darby MD Primary care physician: Stated None Hospital Course: Discharge Diagnosis: Intractable abdominal pain, nausea, and vomiting. Likely secondary to constipation resulting from chronic opioid dependence. Patient being discharged home on MiraLAX 17 g daily along with Reglan 10 mg twice daily. Chest pain with history of CAD. Acute coronary event was ruled out. Continue cardiac medication regimen with aspirin 81 mg daily, atorvastatin 40 mg nightly, amlodipine 10 mg daily, hydralazine 100 mg 3 times daily, isosorbide mononitrate 30 mg daily, losartan 50 mg daily, and metoprolol 100 mg twice daily. Hypertensive urgency. Vital signs stable with blood pressure 159/89 and heart rate of 95 at time of discharge. Left foot pain, X-ray completed showing posterior and plantar soft tissues swelling without interstitial gas consistent with edema. No signs of cellulitis. Left lower extremity Doppler was completed, DVT ruled out showing concerns of possible small Miller's cyst. Patient ambulatory on unit and in room without assistance with a steady gait. If patient has further concerns may follow-up outpatient with urban gardening specialist. History of CAD with previous stenting. Continue cardiac medication regimen with aspirin 81 mg daily, atorvastatin 40 mg nightly, amlodipine 10 mg daily, hydralazine 100 mg 3 times daily, isosorbide mononitrate 30 mg daily, losartan 50 mg daily, and metoprolol 100 mg twice daily. Hypertension. Continue daily medication regimen with amlodipine 10 mg daily, hydralazine 100 mg 3 times daily, isosorbide mononitrate 30 mg daily, losartan 50 mg daily, and metoprolol 100 mg twice daily. Hyperlipidemia. Continue medication regimen with atorvastatin 40 mg nightly. Hyperthyroidism, Continue daily medication regimen with methimazole 5 mg twice daily. Chronic pain with opioid dependence. Continue current pain medication regimen with MS Contin 15 mg twice daily, gabapentin 400 mg 3 times daily, and Percocet 10/325 mg twice daily as needed for intractable breakthrough pain. Hospital Course: Patient is a 68-year-old male with a past medical history of CAD with previous stents, hypertension, hyperlipidemia, hyperthyroidism, COPD, chronic pain on MS Contin, anxiety and previous provoked DVT of left upper extremity. He presented to the emergency department overnight with a chief complaint of chest pain, abdominal pain, nausea, and vomiting. Patient reports the symptoms began on the morning of 03/16/2024 and have been persistent. He reports diffuse abdominal pain throughout abdomen accompanied by indigestion, intractable nausea and vomiting, and pressure across to his chest. Patient reports last bowel movement was 03/13/2024. He denies having any fevers, chills, diaphoresis, headache, lightheadedness, dizziness, palpitations, shortness of breath, cough or congestion, or experiencing any hematemesis, hemoptysis, melena, or hematochezia. Patient denies having any difficulties with or changes in his urinary function and does report it is common for him to go a couple of days without bowel movements. Upon arrival to the hospital, patient underwent evaluation. Vital signs upon arrival showing patient to have hypertensive urgency with blood pressure 205/110, heart rate 103, respiratory rate 18, temp 98.2 F, and SpO2 of 98% on room air. EKG was completed showing normal sinus rhythm at 97 bpm. Chest x-ray completed negative for acute cardiopulmonary process. Patient also reported left foot pain and swelling and x-ray left foot was completed showing posterior and plantar soft tissue swelling without interstitial gas consistent with edema. Labs were completed and reviewed. CBC unremarkable. Coagulation profile normal findings. BMP showing hypocarbia with bicarb of 21, anion gap of 12, BUN of 5, creatinine 0.58, and blood glucose of 138. Magnesium normal findings at 1.8. Liver profile unremarkable. And troponin less than 0.012 with repeat troponin of less than 0.012. Patient was admitted under services with consultation to cardiology. Physical exam: Vital signs reviewed and stable. General: Nontoxic, no distress and appears stated age. Derm: Skin warm and dry, normal coloration for ethnicity. Head: Atraumatic, normocephalic and symmetric. Eyes: EOMs intact, no lid lag, and anicteric sclera Mouth: no lip lesions, mucus membranes moist Cardiovascular: regular rate and rhythm with normal S1S2, no murmur, positive posterior tibial pulses bilaterally, and cap refill < 2 seconds. Lungs: Respirations even, regular, and unlabored on room air. Lungs CTA bilaterally, no rhonchi, no rales, no wheezing, and no accessory muscle usage. Abdominal: soft, nontender upon palpation, no guarding, no appreciable organomegaly Ext: ROM intact. No gross muscle atrophy, no edema, no contractures Neuro: Speech clear, face symmetrical and CN II-XII grossly intact with no noted focal neuro deficits Psych: Alert and oriented to person, place, time, and situation. Appropriate and pleasant affect. A total of 35 minutes of time were spent preparing this complex discharge summary. Pt was discharged on 03/18/2024 at 3:18 PM. Patient was seen independently by Nurse Practitioner. This document was prepared using [employer] dictation software. Please allow for errors in finisher special stocks while rare they do occur. Zaki Polk NP rendered care for this patient independently, reviewed the findings and plan as documented in the note above. I did not physically speak with or examine the patient on this date. Patient Condition at Discharge: Stable Plan - Discharge Summary Discharge Rx Participant: No New Discharge Prescriptions: New polyethylene glycoL 3350 [Miralax] 17 gm PO DAILY 30 Days #30 packet Metoclopramide HCl [Reglan] 10 mg PO BID 30 Days #60 tablet Atorvastatin [Lipitor] 40 mg PO DAILY 30 Days #30 tablet Continue tiZANidine [Zanaflex] 4 mg PO BID oxyCODONE-APAP 10-325MG [Percocet 10-325 mg] 1 tab PO BID PRN PRN Reason: Pain Folic Acid 1 mg PO DAILY Gabapentin [Neurontin] 400 mg PO TID hydrALAZINE HCL [Apresoline] 100 mg PO TID #90 tab Metoprolol Tartrate [Lopressor] 100 mg PO BID #60 tab methIMAzole [Tapazole] 5 mg PO BID #60 tab Aspirin EC [Ecotrin Low Dose] 81 mg PO DAILY Nitroglycerin Sl Tabs [Nitrostat] 0.4 mg SUBLINGUAL Q5M PRN #30 tab PRN Reason: Chest Pain Losartan [Cozaar] 50 mg PO DAILY #30 tab Isosorbide Mononitrate ER [Imdur] 30 mg PO DAILY #30 tab amLODIPine [Norvasc] 10 mg PO DAILY #30 tab SUMAtriptan succinate [Imitrex] 25 mg PO Q4H #5 tablet Morphine Sulfate ER [Ms Contin] 15 mg PO Q12HR Discharge Medication List tiZANidine [Zanaflex] 4 mg PO BID 02/26/18 [History] oxyCODONE-APAP 10-325MG [Percocet 10-325 mg] 1 tab PO BID PRN 01/02/20 [History] Aspirin EC [Ecotrin Low Dose] 81 mg PO DAILY 04/23/23 [History] Folic Acid 1 mg PO DAILY 04/23/23 [History] Gabapentin [Neurontin] 400 mg PO TID 06/27/23 [History] Nitroglycerin Sl Tabs [Nitrostat] 0.4 mg SUBLINGUAL Q5M PRN #30 tab 07/23/23 [Rx] Isosorbide Mononitrate ER [Imdur] 30 mg PO DAILY #30 tab 12/28/23 [Rx] Losartan [Cozaar] 50 mg PO DAILY #30 tab 12/28/23 [Rx] Metoprolol Tartrate [Lopressor] 100 mg PO BID #60 tab 12/28/23 [Rx] amLODIPine [Norvasc] 10 mg PO DAILY #30 tab 12/28/23 [Rx] hydrALAZINE HCL [Apresoline] 100 mg PO TID #90 tab 12/28/23 [Rx] methIMAzole [Tapazole] 5 mg PO BID #60 tab 12/28/23 [Rx] SUMAtriptan succinate [Imitrex] 25 mg PO Q4H #5 tablet 01/01/24 [Rx] Morphine Sulfate ER [Ms Contin] 15 mg PO Q12HR 03/17/24 [History] Atorvastatin [Lipitor] 40 mg PO DAILY 30 Days #30 tablet 03/18/24 [Rx] Metoclopramide HCl [Reglan] 10 mg PO BID 30 Days #60 tablet 03/18/24 [Rx] polyethylene glycoL 3350 [Miralax] 17 gm PO DAILY 30 Days #30 packet 03/18/24 [Rx] Follow up Appointment(s)/Referral(s): Manuel Razo MD [STAFF PHYSICIAN] - 1 Week Gerson Joe III, MD [STAFF PHYSICIAN] - 1 Week Patient Instructions/Handouts: Constipation (DC), High Fiber Diet (DC) Activity/Diet/Wound Care/Special Instructions: Activity: As tolerated. Take breaks as needed. Diet: Heart healthy and carb consistent diet. Avoid salts, or foods with hidden salts such as canned or boxed foods and frozen dinners. Extra salt makes your heart work harder and traps the fluid in your body for longer. Special Instructions: Take all of your medications as directed and remember to keep all of your doctor's appointments and follow-up as needed. Thank you for allowing us to participate in your care, it was truly a pleasure having you for our patient!!! Discharge Disposition: HOME SELF-CARE
== END 2024-03-18 18:15 | disposition home or self-care (01) ==
LOC: EC 23:12 → 6NMEDSUR 03-17 05:36
PROVIDERS: ADMIT Internal Medicine; ATTEND Internal Medicine
DX: R07.89 Other chest pain (principal); M79.602 Pain in left arm; E03.9 Hypothyroidism, unspecified; R11.2 Nausea with vomiting, unspecified; R10.9 Unspecified abdominal pain; I25.10 Atherosclerotic heart disease of native coronary artery without angina pectoris; K21.9 Gastro-esophageal reflux disease without esophagitis; K59.00 Constipation, unspecified; E78.5 Hyperlipidemia, unspecified; R22.42 Localized swelling, mass and lump, left lower limb; E05.90 Thyrotoxicosis, unspecified without thyrotoxic crisis or storm; I16.0 Hypertensive urgency; I10 Essential (primary) hypertension; F11.20 Opioid dependence, uncomplicated; G89.4 Chronic pain syndrome; F41.9 Anxiety disorder, unspecified; M79.672 Pain in left foot; Z82.49 Family history of ischemic heart disease and other diseases of the circulatory system; Z95.5 Presence of coronary angioplasty implant and graft; Z87.891 Personal history of nicotine dependence; Z79.899 Other long term (current) drug therapy; Z79.82 Long term (current) use of aspirin; Z88.5 Allergy status to narcotic agent; Z88.6 Allergy status to analgesic agent; Z88.8 Allergy status to other drugs, medicaments and biological substances; Z86.718 Personal history of other venous thrombosis and embolism; Z96.652 Presence of left artificial knee joint; Z87.11 Personal history of peptic ulcer disease
CPT/HCPCS: 96365; 96372 ×2; 96375; 96376; 99285; 36415; 93005; 80061; 80053; 80048; 83690; 83735 ×2; 84484; 85025; 85027; 85610; 85730; 73620; 71046; 74019; 93971; G0378 ×2; J0360; J1644 ×2; J2765; J2405; J1170

== ENCOUNTER 2024-03-20 19:24 | Emergency (ER) | payer MEDICARE, OTHER ==
[2024-03-20 19:58] VITALS: TEMP 98.4
--- NOTE | 2024-03-20 20:20 | ED ---
Headache HPI - General Chief Complaint: Headache Stated Complaint: Migraine Time Seen by Provider: 03/20/24 19:42 Source: RN notes reviewed, old records reviewed Mode of arrival: ambulatory - History of Present Illness Initial Comments: This is a 68-year-old male to the ER for evaluation today. Patient [place] for evaluation of severe headache history of nausea and vomiting but no current nausea vomiting patient has persistent headache and weakness patient has history of chronic migraines and this is his normal migraine MD Complaint: headache, "migraine" -: days(s) Onset Description: gradual Location: right, left, frontal, temporal Severity: moderate Severity scale (1-10): 7 Quality: sharp Consistency: constant Improves With: nothing Worsens With: none Associated Symptoms: nausea, vomiting, photophobia Treatments Prior to Arrival: none - Related Data Home Medications Medication Instructions Recorded Confirmed tiZANidine [Zanaflex] 4 mg PO BID 02/26/18 03/17/24 oxyCODONE-APAP 10-325MG [Percocet 1 tab PO BID PRN 01/02/20 03/17/24 10-325 mg] Aspirin EC [Ecotrin Low Dose] 81 mg PO DAILY 04/23/23 03/17/24 Folic Acid 1 mg PO DAILY 04/23/23 03/17/24 Gabapentin [Neurontin] 400 mg PO TID 06/27/23 03/17/24 Morphine Sulfate ER [Ms Contin] 15 mg PO Q12HR 03/17/24 03/17/24 Previous Rx's Medication Instructions Recorded Nitroglycerin Sl Tabs [Nitrostat] 0.4 mg SUBLINGUAL Q5M PRN #30 tab 07/23/23 Isosorbide Mononitrate ER [Imdur] 30 mg PO DAILY #30 tab 12/28/23 Losartan [Cozaar] 50 mg PO DAILY #30 tab 12/28/23 Metoprolol Tartrate [Lopressor] 100 mg PO BID #60 tab 12/28/23 amLODIPine [Norvasc] 10 mg PO DAILY #30 tab 12/28/23 hydrALAZINE HCL [Apresoline] 100 mg PO TID #90 tab 12/28/23 methIMAzole [Tapazole] 5 mg PO BID #60 tab 12/28/23 SUMAtriptan succinate [Imitrex] 25 mg PO Q4H #5 tablet 01/01/24 Atorvastatin [Lipitor] 40 mg PO DAILY 30 Days #30 tablet 03/18/24 Metoclopramide HCl [Reglan] 10 mg PO BID 30 Days #60 tablet 03/18/24 polyethylene glycoL 3350 [Miralax] 17 gm PO DAILY 30 Days #30 packet 03/18/24 Allergies Allergy/AdvReac Type Severity Reaction Status Date / Time codeine Allergy Itching Verified 03/17/24 07:24 ibuprofen [From Motrin] Allergy Rash/Hives Verified 03/17/24 07:24 ketorolac tromethamine Allergy Rash/Hives Verified 03/17/24 07:24 [From Toradol] Review of Systems ROS Statement: Those systems with pertinent positive or pertinent negative responses have been documented in the HPI. ROS Other: All systems not noted in ROS Statement are negative. Past Medical History Past Medical History: Coronary Artery Disease (CAD), Chest Pain / Angina, Deep Vein Thrombosis (DVT), GERD/Reflux, Hyperlipidemia, Hypertension, Osteoarthritis (OA), Thyroid Disorder Additional Past Medical History / Comment(s): Occasional palpitations, gastritis, small hiatal hernia, diverticular dx, pt states years ago he had PUD, chronic low back pain, chronic pain syndrome, migraines, DVT L arm, numbness/tingling bilateral lower legs, bilateral past R hand fracture, art hritis multiple joints, hyperthyroid, sinus problems. History of Any Multi-Drug Resistant Organisms: None Reported Past Surgical History: Back Surgery, Cholecystectomy, Heart Catheterization With Stent, Orthopedic Surgery Additional Past Surgical History / Comment(s): EGDs/colonoscopies, multiple low back surgeries, bilateral arm and bilateral thigh surgeries for brown recluse spider bites with infection, morphine pain pump insertion and removal due to infection, PCI with stents, L rotator cuff repair, L knee arthroscopy, cervical fusion/cage, R cataract removal.left knee replacement 10/27/2023 Past Anesthesia/Blood Transfusion Reactions: No Reported Reaction Additional Past Anesthesia/Blood Transfusion Reaction / Comment(s): 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 states he was "down for 12 minutes" lower back surgery Date of Last Stent Placement:: 10/12/17 Past Psychological History: Anxiety Smoking Status: Former smoker Past Alcohol Use History: None Reported Past Drug Use History: None Reported - Past Family History Father Family Medical History: No Reported History Additional Family Medical History / Comment(s): Father had back problems. He lived to be 82 yrs old. Mother History Unknown: Yes Family Medical History: Hypertension, Myocardial Infarction (NH) Additional Family Medical History / Comment(s): Mother of a NH at the age of 55yrs. Brother(s) Family Medical History: Cancer, COPD Additional Family Medical History / Comment(s): Leukemia General Exam General appearance: alert, in no apparent distress Head exam: Present: atraumatic, normocephalic, normal inspection Eye exam: Present: normal appearance, PERRL, EOMI. Absent: scleral icterus, conjunctival injection, periorbital swelling ENT exam: Present: normal exam, mucous membranes moist Neck exam: Present: normal inspection. Absent: tenderness, meningismus, lymphadenopathy Respiratory exam: Present: normal lung sounds bilaterally. Absent: respiratory distress, wheezes, rales, rhonchi, stridor Cardiovascular Exam: Present: regular rate, normal rhythm, normal heart sounds. Absent: systolic murmur, diastolic murmur, rubs, gallop, clicks GI/Abdominal exam: Present: soft, normal bowel sounds. Absent: distended, tenderness, guarding, rebound, rigid Extremities exam: Present: normal inspection, full ROM, normal capillary refill. Absent: tenderness, pedal edema, joint swelling, calf tenderness Back exam: Present: normal inspection Neurological exam: Present: alert, oriented X3, CN II-XII intact Psychiatric exam: Present: normal affect, normal mood Skin exam: Present: warm, dry, intact, normal color. Absent: rash Course Vital Signs 03/20/24 03/20/24 19:32 21:39 Temperature 98.4 F Pulse Rate 103 H 109 H Respiratory 19 20 Rate Blood Pressure 169/90 139/92 O2 Sat by Pulse 98 98 Oximetry - Reevaluation(s) Reevaluation #1: 03/20/24 21:50 Records reviewed Reevaluation #2: 03/20/24 21:50 Patient symptoms improved Reevaluation #3: 03/20/24 21:50 Patient informed of results and questions answered Reevaluation #4: Was pt. sent in by a medical professional or institution (, PA, WAIST PLEATER, urgent care, hospital, or fdc...) When possible be specific @ -no Did you speak to anyone other than the patient for history (EMS, parent, family, police, friend...)? What history was obtained from this source @ -no Did you review nursing and triage notes (agree or disagree)? Why? @ -agree Are old charts reviewed (outside hosp., previous admission, EMS record, old EKG, old radiological studies, urgent care reports/EKG's, fdc records)? Report findings @ -yes Differential Diagnosis (chest pain, altered mental status, abdominal pain women, abdominal pain men, vaginal bleeding, weakness, fever, dyspnea, syncope, headache, dizziness, GI bleed, back pain, seizure, CVA, palpatations, mental health, musculoskeletal)? @ -prior EKG interpreted by me (3pts min.). @ -no X-rays interpreted by me (1pt min.). @ -no CT interpreted by me (1pt min.). @ -no U/S interpreted by me (1pt. min.). @ -no What testing was considered but not performed or refused? (CT, X-rays, U/S, labs)? Why? @ -none What meds were considered but not given or refused? Why? @ -none Did you discuss the management of the patient with other professionals (professionals i.e. , PA, WAIST PLEATER, lab, RT, psych nurse, social science manager, back closer, teacher, conservation enforcement officer, comp field case manager)? Give summary @ -no Was smoking cessation discussed for >3mins.? @ -no Was critical care preformed (if so, how long)? @ -no Were there social determinants of health that impacted care today? How? (Homelessness, low income, unemployed, alcoholism, drug addiction, transportation, low edu. Level, literacy, decrease access to med. care, residential, rehab)? @ -none Was there de-escalation of care discussed even if they declined (Discuss DNR or withdrawal of care, Hospice)? DNR status @ -no What co-morbidities impacted this encounter? (DM, HTN, Smoking, COPD, CAD, Cancer, CVA, ARF, Chemo, Hep., AIDS, mental health diagnosis, sleep apnea, morbid obesity)? @ -none Was patient admitted / discharged? Hospital course, mention meds given and route, prescriptions, significant lab abnormalities, going to OR and other pertinent info. @ - 61-year-old male for acute on chronic migraine headache is improved here in the ER patient can be discharged home Discharge Undiagnosed new problem with uncertain prognosis? @ -no Drug Therapy requiring intensive monitoring for toxicity (Heparin, Nitro, Insulin, Cardizem)? @ -no Were any procedures done? @ -no Diagnosis/symptom? @ -Headache and chronic pain Acute, or Chronic, or Acute on Chronic? @ -Acute Uncomplicated (without systemic symptoms) or Complicated (systemic symptoms)? @ -Complicated Side effects of treatment? @ -no Exacerbation, Progression, or Severe Exacerbation? @ -exacerbation Poses a threat to life or bodily function? How? (Chest pain, USA, NH, pneumonia, PE, COPD, DKA, ARF, appy, cholecystitis, CVA, Diverticulitis, Homicidal, Suicidal, threat to staff... and all critical care pts) @ -no Reevaluation #5: Differential Headache: Migraine, tension, cluster, carbon monoxide, central venous thrombosis, pension karma temporal arteritis, acute closure glaucoma, intercranial hemorrhage, mastoiditis, sinusitis, head injury, this is not meant to be an all-inclusive list. Medical Decision Making - Medical Decision Making 7-year-old male for acute on chronic migraine headache is improved here in the ER patient can be discharged home Disposition Clinical Impression: Headache Disposition: HOME SELF-CARE Condition: Fair Instructions (If sedation given, give patient instructions): Acute Headache (ED) Is patient prescribed a controlled substance at d/c from ED?: No Referrals: None,Stated [Primary Care Provider] - 1-2 days Time of Disposition: 20:20
[2024-03-20] MEDS: diphenhydrAMINE 50 MG CAP PO STA (21:35)
[2024-03-20] MEDS: PROCHLORPERAZINE 10 MG TAB PO STA (21:35)
[2024-03-20] MEDS: HYDROmorphone 1 MG/ML 1 ML SYRINGE IM STA (21:35)
[2024-03-20 22:55] VITALS: BP 139/92; PULSE 109; RESP 20
== END 2024-03-20 21:39 | disposition home or self-care (01) ==
LOC: EC 19:24
DX: G89.29 Other chronic pain (principal); R51.9 Headache, unspecified; Z88.5 Allergy status to narcotic agent; Z88.6 Allergy status to analgesic agent; Z87.891 Personal history of nicotine dependence
CPT/HCPCS: 99283; 96372; S0183; J1170

== ENCOUNTER 2024-03-29 12:10 | Emergency (ER) | payer MEDICARE, OTHER ==
--- NOTE | 2024-03-29 12:23 | ED ---
General Adult HPI - General Chief complaint: Headache Stated complaint: Headache Time Seen by Provider: 03/29/24 12:15 Source: patient, RN notes reviewed, old records reviewed Mode of arrival: ambulatory Limitations: no limitations - History of Present Illness Initial comments: This is a 68-year-old male who presents to the emergency department complaining that he has a migraine headache since he woke up at 7:00 this morning. Patient states no different than any other migraine headache. Patient states normally comes in and get some Dilaudid and he is good to go. Patient states he is also mildly nauseated. Patient denies any numbness weakness. Patient denies any chest pain difficulty breathing shortness of breath. Patient has any abdominal pain patient denies any vomiting patient has any diarrhea. Patient specifically asked for some Dilaudid. Patient has Percocet and morphine at home - Related Data Home Medications Medication Instructions Recorded Confirmed tiZANidine [Zanaflex] 4 mg PO BID 02/26/18 03/17/24 oxyCODONE-APAP 10-325MG [Percocet 1 tab PO BID PRN 01/02/20 03/17/24 10-325 mg] Aspirin EC [Ecotrin Low Dose] 81 mg PO DAILY 04/23/23 03/17/24 Folic Acid 1 mg PO DAILY 04/23/23 03/17/24 Gabapentin [Neurontin] 400 mg PO TID 06/27/23 03/17/24 Morphine Sulfate ER [Ms Contin] 15 mg PO Q12HR 03/17/24 03/17/24 Previous Rx's Medication Instructions Recorded Nitroglycerin Sl Tabs [Nitrostat] 0.4 mg SUBLINGUAL Q5M PRN #30 tab 07/23/23 Isosorbide Mononitrate ER [Imdur] 30 mg PO DAILY #30 tab 12/28/23 Losartan [Cozaar] 50 mg PO DAILY #30 tab 12/28/23 Metoprolol Tartrate [Lopressor] 100 mg PO BID #60 tab 12/28/23 amLODIPine [Norvasc] 10 mg PO DAILY #30 tab 12/28/23 hydrALAZINE HCL [Apresoline] 100 mg PO TID #90 tab 12/28/23 methIMAzole [Tapazole] 5 mg PO BID #60 tab 12/28/23 SUMAtriptan succinate [Imitrex] 25 mg PO Q4H #5 tablet 01/01/24 Atorvastatin [Lipitor] 40 mg PO DAILY 30 Days #30 tablet 03/18/24 Metoclopramide HCl [Reglan] 10 mg PO BID 30 Days #60 tablet 03/18/24 polyethylene glycoL 3350 [Miralax] 17 gm PO DAILY 30 Days #30 packet 03/18/24 Allergies Allergy/AdvReac Type Severity Reaction Status Date / Time codeine Allergy Itching Verified 03/29/24 12:18 ibuprofen [From Motrin] Allergy Rash/Hives Verified 03/29/24 12:18 ketorolac tromethamine Allergy Rash/Hives Verified 03/29/24 12:18 [From Toradol] Review of Systems ROS Statement: Those systems with pertinent positive or pertinent negative responses have been documented in the HPI. ROS Other: All systems not noted in ROS Statement are negative. Past Medical History Past Medical History: Coronary Artery Disease (CAD), Chest Pain / Angina, Deep Vein Thrombosis (DVT), GERD/Reflux, Hyperlipidemia, Hypertension, Osteoarthritis (OA), Thyroid Disorder Additional Past Medical History / Comment(s): Occasional palpitations, gastritis, small hiatal hernia, diverticular dx, pt states years ago he had PUD, chronic low back pain, chronic pain syndrome, migraines, DVT L arm, numbness/tingling bilateral lower legs, bilateral past R hand fracture, arthritis multiple joints, hyperthyroid, sinus problems. History of Any Multi-Drug Resistant Organisms: None Reported Past Surgical History: Back Surgery, Cholecystectomy, Heart Catheterization With Stent, Orthopedic Surgery Additional Past Surgical History / Comment(s): EGDs/colonoscopies, multiple low back surgeries, bilateral arm and bilateral thigh surgeries for brown recluse spider bites with infection, morphine pain pump insertion and removal due to infection, PCI with stents, L rotator cuff repair, L knee arthroscopy, cervical fusion/cage, R cataract removal.left knee replacement 10/27/2023 Past Anesthesia/Blood Transfusion Reactions: No Reported Reaction Additional Past Anesthesia/Blood Transfusion Reaction / Comment(s): 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 states he was "down for 12 minutes" lower back surgery Date of Last Stent Placement:: 10/12/17 Past Psychological History: Anxiety Smoking Status: Former smoker Past Alcohol Use History: None Reported Past Drug Use History: None Reported - Past Family History Father Family Medical History: No Reported History Additional Family Medical History / Comment(s): Father had back problems. He lived to be 82 yrs old. Mother History Unknown: Yes Family Medical History: Hypertension, Myocardial Infarction (LA) Additional Family Medical History / Comment(s): Mother of a [place] at the age of 55yrs. Brother(s) Family Medical History: Cancer, COPD Additional Family Medical History / Comment(s): Leukemia General Exam - General Exam Comments Initial Comments: GENERAL: Patient is well-developed and well-nourished. Patient is nontoxic and well- hydrated and is in no acute distress. Patient states he has 8 out of 10 pain but he looks in no distress and is able to even joke around and laugh with me ENT: Neck is soft and supple. No significant lymphadenopathy is noted. Oropharynx is clear. Moist mucous membranes. Neck has full range of motion without eliciting any pain. EYES: The sclera were anicteric and conjunctiva were pink and moist. Extraocular movements were intact and pupils were equal round and reactive to light. Eyelids were unremarkable. PULMONARY: Unlabored respirations. Good breath sounds bilaterally. No audible rales rhonchi or wheezing was noted. CARDIOVASCULAR: There is a regular rate and rhythm without any murmurs gallops or rubs. ABDOMEN: Soft and nontender with normal bowel sounds. SKIN: Skin is clear with no lesions or rashes and otherwise unremarkable. NEUROLOGIC: Patient is alert and oriented x3. Cranial nerves II through XII are grossly intact. Motor and sensory are also intact. Normal speech, volume and content. Symmetrical smile. MUSCULOSKELETAL: Normal extremities with adequate strength and full range of motion. No lower extremity swelling or edema. No calf tenderness. LYMPHATICS: No significant lymphadenopathy is noted PSYCHIATRIC: Normal psychiatric evaluation. Limitations: no limitations Course Vital Signs 03/29/24 12:16 Temperature 98.6 F Pulse Rate 111 H Respiratory 18 Rate Blood Pressure 158/94 O2 Sat by Pulse 96 Oximetry Medical Decision Making - Medical Decision Making Was pt. sent in by a medical professional or institution (, PA, DIVISION TOLL WIRE CHIEF, urgent care, hospital, or fdc...) When possible be specific @ -No Did you speak to anyone other than the patient for history (EMS, parent, family, police, friend...)? What history was obtained from this source @ -No Did you review nursing and triage notes (agree or disagree)? Why? @ -I reviewed and agree with nursing and triage notes Were old charts reviewed (outside hosp., previous admission, EMS record, old EKG, old radiological studies, urgent care reports/EKG's, fdc records)? Report findings @ -No old charts were reviewed Differential Diagnosis (chest pain, altered mental status, abdominal pain women, abdominal pain men, vaginal bleeding, weakness, fever, dyspnea, syncope, headache, dizziness, GI bleed, back pain, seizure, CVA, palpatations, mental health, musculoskeletal)? @ -Differential Headache: Migraine, tension, cluster, carbon monoxide, central venous thrombosis, pension karma temporal arteritis, acute closure glaucoma, intercranial hemorrhage, mastoiditis, sinusitis, head injury, this is not meant to be an all-inclusive list. EKG interpreted by me (3pts min.). @ -As above X-rays interpreted by me (1pt min.). @ -None done CT interpreted by me (1pt min.). @ -None done U/S interpreted by me (1pt. min.). @ -None done What testing was considered but not performed or refused? (CT, X-rays, U/S, labs)? Why? @ -None What meds were considered but not given or refused? Why? @ -None Did you discuss the management of the patient with other professionals (professionals i.e. , PA, DIVISION TOLL WIRE CHIEF, lab, RT, psych nurse, group social worker, data center operator, teacher, lead security officer, correctional casework specialist)? Give summary @ -No Was smoking cessation discussed for >3mins.? @ -No Was critical care preformed (if so, how long)? @ -No Were there social determinants of health that impacted care today? How? (Homelessness, low income, unemployed, alcoholism, drug addiction, transportation, low edu. Level, literacy, decrease access to med. care, snf, rehab)? @ -No Was there de-escalation of care discussed even if they declined (Discuss DNR or withdrawal of care, Hospice)? DNR status @ -No What co-morbidities impacted this encounter? (DM, HTN, Smoking, COPD, CAD, Cancer, CVA, ARF, Chemo, Hep., AIDS, mental health diagnosis, sleep apnea, morbid obesity)? @ -None Was patient admitted / discharged? Hospital course, mention meds given and route, prescriptions, significant lab abnormalities, going to OR and other pertinent info. @ -ER was crowded today and there was no immediate bed so I discussed with the patient giving him some IM shots and he was happy with that and he stated he would be discharged home. Undiagnosed new problem with uncertain prognosis? @ -No Drug Therapy requiring intensive monitoring for toxicity (Heparin, Nitro, Insulin, Cardizem)? @ -No Were any procedures done? @ -No Diagnosis/symptom? @ -Migraine headache Acute, or Chronic, or Acute on Chronic? @ -Acute Uncomplicated (without systemic symptoms) or Complicated (systemic symptoms)? @ -Uncomplicated Side effects of treatment? @ -No Exacerbation, Progression, or Severe Exacerbation? @ -No Poses a threat to life or bodily function? How? (Chest pain, USA, [place], pneumonia, PE, COPD, DKA, ARF, appy, cholecystitis, CVA, Diverticulitis, Homicidal, Suicidal, threat to staff... and all critical care pts) @ -No Disposition Clinical Impression: Migraine headache Disposition: HOME SELF-CARE Condition: Good Instructions (If sedation given, give patient instructions): Migraine Headache (ED) Is patient prescribed a controlled substance at d/c from ED?: No Referrals: None,Stated [Primary Care Provider] - 1-2 days Time of Disposition: 12:23
[2024-03-29] MEDS: HYDROmorphone 0.5 MG/0.5 ML SYRINGE IM STA (12:30)
[2024-03-29] MEDS: ONDANSETRON 4 MG/2 ML VIAL IM STA (12:31)
[2024-03-29 12:55] VITALS: BP 158/94; PULSE 111; RESP 18; TEMP 98.6
== END 2024-03-29 12:37 | disposition home or self-care (01) ==
LOC: EC 12:10
DX: G43.909 Migraine, unspecified, not intractable, without status migrainosus (principal); Z88.5 Allergy status to narcotic agent; Z88.6 Allergy status to analgesic agent; Z87.891 Personal history of nicotine dependence
CPT/HCPCS: 99283; 96372 ×2; J2405; J1170

== ENCOUNTER 2024-04-15 17:23 | Emergency (ER) | payer MEDICARE, OTHER ==
--- NOTE | 2024-04-15 18:03 | ED ---
Recheck HPI - General Chief Complaint: Chest Pain Stated Complaint: chest pain Time Seen by Provider: 04/15/24 18:02 Source: patient, RN notes reviewed, old records reviewed Mode of arrival: ambulatory Limitations: no limitations - History of Present Illness Initial Comments: This is a 68-year-old male to the ER for evaluation today. Patient [facility] for evaluation regards to chest pain. Patient presents today with chest pain anterior chest wall pain that he does occasionally get. Patient also complaining of headache some nausea no vomiting no trauma no travels no sick contacts no fevers no shortness of breath no significant leg swelling MD Complaint: other (Chest pain headache) Returns Today for: persistent/worsening pain related to initial visit Symptoms Since Prior Visit: no new symptoms Associated Symptoms: none Treatments Prior to Arrival: Given Pain Meds on - Related Data Home Medications Medication Instructions Recorded Confirmed tiZANidine [Zanaflex] 4 mg PO BID 02/26/18 03/17/24 oxyCODONE-APAP 10-325MG [Percocet 1 tab PO BID PRN 01/02/20 03/17/24 10-325 mg] Aspirin EC [Ecotrin Low Dose] 81 mg PO DAILY 04/23/23 03/17/24 Folic Acid 1 mg PO DAILY 04/23/23 03/17/24 Gabapentin [Neurontin] 400 mg PO TID 06/27/23 03/17/24 Morphine Sulfate ER [Ms Contin] 15 mg PO Q12HR 03/17/24 03/17/24 Previous Rx's Medication Instructions Recorded Nitroglycerin Sl Tabs [Nitrostat] 0.4 mg SUBLINGUAL Q5M PRN #30 tab 07/23/23 Isosorbide Mononitrate ER [Imdur] 30 mg PO DAILY #30 tab 12/28/23 Losartan [Cozaar] 50 mg PO DAILY #30 tab 12/28/23 Metoprolol Tartrate [Lopressor] 100 mg PO BID #60 tab 12/28/23 amLODIPine [Norvasc] 10 mg PO DAILY #30 tab 12/28/23 hydrALAZINE HCL [Apresoline] 100 mg PO TID #90 tab 12/28/23 methIMAzole [Tapazole] 5 mg PO BID #60 tab 12/28/23 SUMAtriptan succinate [Imitrex] 25 mg PO Q4H #5 tablet 01/01/24 Atorvastatin [Lipitor] 40 mg PO DAILY 30 Days #30 tablet 03/18/24 Metoclopramide HCl [Reglan] 10 mg PO BID 30 Days #60 tablet 03/18/24 polyethylene glycoL 3350 [Miralax] 17 gm PO DAILY 30 Days #30 packet 03/18/24 Allergies Allergy/AdvReac Type Severity Reaction Status Date / Time codeine Allergy Itching Verified 04/15/24 17:37 ibuprofen [From Motrin] Allergy Rash/Hives Verified 04/15/24 17:37 ketorolac tromethamine Allergy Rash/Hives Verified 04/15/24 17:37 [From Toradol] Review of Systems ROS Statement: Those systems with pertinent positive or pertinent negative responses have been documented in the HPI. ROS Other: All systems not noted in ROS Statement are negative. Past Medical History Past Medical History: Coronary Artery Disease (CAD), Chest Pain / Angina, Deep Vein Thrombosis (DVT), GERD/Reflux, Hyperlipidemia, Hypertension, Osteoarthritis (OA), Thyroid Disorder Additional Past Medical History / Comment(s): Occasional palpitations, gastritis, small hiatal hernia, diverticular dx, pt states years ago he had PUD, chronic low back pain, chronic pain syndrome, migraines, DVT L arm, numbness/tingling bilateral lower legs, bilateral past R hand fracture, arthritis multiple joints, hyperthyroid, sinus problems. History of Any Multi-Drug Resistant Organisms: None Reported Past Surgical History: Back Surgery, Cholecystectomy, Heart Catheterization With Stent, Orthopedic Surgery Additional Past Surgical History / Comment(s): EGDs/colonoscopies, multiple low back surgeries, bilateral arm and bilateral thigh surgeries for brown recluse spider bites with infection, morphine pain pump insertion and removal due to infection, PCI with stents, L rotator cuff repair, L knee arthroscopy, cervical fusion/cage, R cataract removal.left knee replacement 10/27/2023 Past Anesthesia/Blood Transfusion Reactions: No Reported Reaction Additional Past Anesthesia/Blood Transfusion Reaction / Comment(s): 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 states he was "down for 12 minutes" lower back surgery Date of Last Stent Placement:: 10/12/17 Past Psychological History: Anxiety Smoking Status: Former smoker Past Alcohol Use History: None Reported Past Drug Use History: None Reported - Past Family History Father Family Medical History: No Reported History Additional Family Medical History / Comment(s): Father had back problems. He lived to be 82 yrs old. Mother History Unknown: Yes Family Medical History: Hypertension, Myocardial Infarction (SC) Additional Family Medical History / Comment(s): Mother of a SC at the age of 55yrs. Brother(s) Family Medical History: Cancer, COPD Additional Family Medical History / Comment(s): Leukemia General Exam Limitations: no limitations General appearance: alert, in no apparent distress Head exam: Present: atraumatic, normocephalic, normal inspection Eye exam: Present: normal appearance, PERRL, EOMI. Absent: scleral icterus, conjunctival injection, periorbital swelling ENT exam: Present: normal exam, mucous membranes moist Neck exam: Present: normal inspection. Absent: tenderness, meningismus, l ymphadenopathy Respiratory exam: Present: normal lung sounds bilaterally. Absent: respiratory distress, wheezes, rales, rhonchi, stridor Cardiovascular Exam: Present: regular rate, normal rhythm, normal heart sounds. Absent: systolic murmur, diastolic murmur, rubs, gallop, clicks GI/Abdominal exam: Present: soft, normal bowel sounds. Absent: distended, tenderness, guarding, rebound, rigid Extremities exam: Present: normal inspection, full ROM, normal capillary refill. Absent: tenderness, pedal edema, joint swelling, calf tenderness Back exam: Present: normal inspection Neurological exam: Present: alert, oriented X3, CN II-XII intact Psychiatric exam: Present: normal affect, normal mood Skin exam: Present: warm, dry, intact, normal color. Absent: rash Course Vital Signs 04/15/24 04/15/24 17:34 21:02 Temperature 98.0 F Pulse Rate 116 H 102 H Respiratory 18 20 Rate Blood Pressure 207/115 202/124 O2 Sat by Pulse 98 99 Oximetry - Reevaluation(s) Reevaluation #1: 04/15/24 19:35 Medical records reviewed Reevaluation #2: 04/15/24 19:35 Patient symptoms are improved Reevaluation #3: 04/15/24 19:35 Patient informed of results and questions answered Reevaluation #4: Was pt. sent in by a medical professional or institution (, PA, DISABILITIES SERVICES OFFICER, urgent care, hospital, or jail...) When possible be specific @ -no Did you speak to anyone other than the patient for history (EMS, parent, family, police, friend...)? What history was obtained from this source @ -no Did you review nursing and triage notes (agree or disagree)? Why? @ -agree Are old charts reviewed (outside hosp., previous admission, EMS record, old EKG, old radiological studies, urgent care reports/EKG's, jail records)? Report findings @ -yes Differential Diagnosis (chest pain, altered mental status, abdominal pain women, abdominal pain men, vaginal bleeding, weakness, fever, dyspnea, syncope, headache, dizziness, GI bleed, back pain, seizure, CVA, palpatations, mental health, musculoskeletal)? @ -prior EKG interpreted by me (3pts min.). @ -yes X-rays interpreted by me (1pt min.). @ -yes negative for acute disease CT interpreted by me (1pt min.). @ -no U/S interpreted by me (1pt. min.). @ -no What testing was considered but not performed or refused? (CT, X-rays, U/S, labs)? Why? @ -none What meds were considered but not given or refused? Why? @ -none Did you discuss the management of the patient with other professionals (professionals i.e. , PA, DISABILITIES SERVICES OFFICER, lab, RT, psych nurse, social worker aide, switchbox assembler, teacher, chief school finance officer, cyanide case hardener)? Give summary @ -no Was smoking cessation discussed for >3mins.? @ -no Was critical care preformed (if so, how long)? @ -no Were there social determinants of health that impacted care today? How? (Homelessness, low income, unemployed, alcoholism, drug addiction, transportation, low edu. Level, literacy, decrease access to med. care, fpc, rehab)? @ -none Was there de-escalation of care discussed even if they declined (Discuss DNR or withdrawal of care, Hospice)? DNR status @ -no What co-morbidities impacted this encounter? (DM, HTN, Smoking, COPD, CAD, Cancer, CVA, ARF, Chemo, Hep., AIDS, mental health diagnosis, sleep apnea, morbid obesity)? @ -none Was patient admitted / discharged? Hospital course, mention meds given and route, prescriptions, significant lab abnormalities, going to OR and other pertinent info. @ - 58 male well-known to the emergency department presents today for evaluation of chest pain no cause of chest pain found here in the ER patient can be discharged home Undiagnosed new problem with uncertain prognosis? @ -no Drug Therapy requiring intensive monitoring for toxicity (Heparin, Nitro, Insulin, Cardizem)? @ -no Were any procedures done? @ -no Diagnosis/symptom? @ -Chest pain Acute, or Chronic, or Acute on Chronic? @ -Acute Uncomplicated (without systemic symptoms) or Complicated (systemic symptoms)? @ -Complicated Side effects of treatment? @ -no Exacerbation, Progression, or Severe Exacerbation? @ -exacerbation Poses a threat to life or bodily function? How? (Chest pain, USA, SC, pneumonia, PE, COPD, DKA, ARF, appy, cholecystitis, CVA, Diverticulitis, Homicidal, Suicidal, threat to staff... and all critical care pts) @ -yes with chest pain Reevaluation #5: Differential Chest Pain: Stable Angina, Unstable Angina, STEMI, NSTEMI Aortic Dissection, Pneumothorax, Musculoskeletal, Esophageal Spasm GERD, Cholecystitis, Pancreatitis, Zoster, this is not meant to be an all-inclusive list. Medical Decision Making - Medical Decision Making 68 male well-known to the emergency department presents today for evaluation of chest pain no cause of chest pain found here in the ER patient can be discharged home - Lab Data Result diagrams: 04/15/24 18:54 Lab Results 04/15/24 04/15/24 Range/Units 18:54 18:54 Sodium 135 L (137-145) mmol/L Potassium 4.6 (3.5-5.1) mmol/L Chloride 106 (98-107) mmol/L Carbon Dioxide 18 L (22-30) mmol/L Anion Gap 11 mmol/L BUN 8 L (9-20) mg/dL Creatinine 0.65 L (0.66-1.25) mg/dL Est GFR (CKD-EPI)AfAm >90 (>60 ml/min/1.73 sqM) Est GFR (CKD-EPI)NonAf >90 (>60 ml/min/1.73 sqM) Glucose 126 H (74-99) mg/dL Calcium 9.7 (8.4-10.2) mg/dL Magnesium 1.7 (1.6-2.3) mg/dL Total Bilirubin 0.9 (0.2-1.3) mg/dL AST 29 (17-59) U/L ALT 11 (4-49) U/L Alkaline Phosphatase 80 (38-126) U/L Troponin I 0.016 (0.000-0.034) ng/mL NT-Pro-B Natriuret Pep 32 pg/mL Total Protein 8.0 (6.3-8.2) g/dL Albumin 4.8 (3.5-5.0) g/dL - EKG Data -: EKG Interpreted by Me (EKG is sinus tachycardia 115 TX 188 QRS 97 QTc 397) - Radiology Data Radiology results: report reviewed (Chest x-ray is negative for acute disease), image reviewed Disposition Clinical Impression: Chest pain Disposition: HOME SELF-CARE Condition: Good Instructions (If sedation given, give patient instructions): Chest Pain (ED) Is patient prescribed a controlled substance at d/c from ED?: No Referrals: None,Stated [Primary Care Provider] - 1-2 days Time of Disposition: 19:00
[2024-04-15 18:23] VITALS: TEMP 98
[2024-04-15] MEDS: diphenhydrAMINE 50 MG CAP PO STA ×2 (19:01→21:06)
[2024-04-15] MEDS: HYDROmorphone 1 MG/ML 1 ML SYRINGE IM STA (19:02)
[2024-04-15 19:20] LABS: ALT 11 U/L (4-49); African American GFR (CKD) >90 (>60 ml/min/1.73 sqM); Albumin 4.8 g/dL (3.5-5.0); Anion Gap 11 mmol/L; Blood Urea Nitrogen 8 mg/dL (9-20); Calcium 9.7 mg/dL (8.4-10.2); Carbon Dioxide 18 mmol/L (22-30); Chloride 106 mmol/L (98-107); Glucose 126 mg/dL (74-99); Non-African American GFR(CKD) >90 (>60 ml/min/1.73 sqM); Sodium 135 mmol/L (137-145); Total Bilirubin 0.9 mg/dL (0.2-1.3)
[2024-04-15 19:28] LABS: NT-Pro-B-Type Natriuretic Pept 32 pg/mL
[2024-04-15 19:30] LABS: AST 29 U/L (17-59); Alkaline Phosphatase 80 U/L (38-126); Magnesium 1.7 mg/dL (1.6-2.3); Potassium 4.6 mmol/L (3.5-5.1)
[2024-04-15] MEDS: PROCHLORPERAZINE 10 MG TAB PO ONE (21:06)
[2024-04-15 21:34] VITALS: BP 202/124; PULSE 102; RESP 20
--- NOTE | 2024-04-15 23:05 | XR ---
EXAM: XR chest 1V portable CLINICAL INDICATION:Male, 68 years old with history of chest pain; LOCATED WITHIN [facility] COMPARISON: 03/17/2024 TECHNIQUE: Chest single view. FINDINGS: Lines/tubes/devices: EKG leads over the chest. ACDF hardware. Cardiomediastinum: Cardiac silhouette appears stable, nonenlarged. Stable mediastinal silhouette. Aortic arch tortuous and unfolded. Vasculature: No increased pulmonary vasculature. Lungs/pleura: Mild chronic senescent changes in the lungs without evidence of acute superimposed airspace disease, pleural effusion, or pneumothorax. Bones/soft tissues: Bony thorax appears grossly intact as seen. Mild degenerative changes. Regional soft tissues appear u nremarkable. IMPRESSION: No acute cardiopulmonary findings.
== END 2024-04-15 21:17 | disposition home or self-care (01) ==
LOC: EC 17:23
DX: R07.89 Other chest pain (principal); Z87.891 Personal history of nicotine dependence; Z88.6 Allergy status to analgesic agent; Z88.8 Allergy status to other drugs, medicaments and biological substances; Z90.49 Acquired absence of other specified parts of digestive tract; Z95.5 Presence of coronary angioplasty implant and graft
CPT/HCPCS: 36415; 93005; 83880; 80053; 83735; 84484; 71045; 99285; 96372; S0183; J1170

== ENCOUNTER 2024-04-22 12:33 | Emergency (ER) | payer MEDICARE ==
--- NOTE | 2024-04-22 13:10 | ED ---
Fall HPI - General Stated Complaint: Fall-Dannie leg pain Time Seen by Provider: 04/22/24 13:09 Source: patient, RN notes reviewed Mode of arrival: ambulatory - History of Present Illness Initial Comments: 68-year-old male presenting to the ER with a chief complaint of a fall. Patient reports he was going down his stairs yesterday and accidentally missed a step and he caught himself on his left knee. He denies any head injury or loss conscious. He is reporting left knee pain and swelling with limited ROM. Denies any paresthesias. Patient had left knee replaced by Dr. Vance on October 27, 2023. Patient is also complaining of right negro pain. He is unsure if he injured it during his fall. No other complaints or injuries. - Related Data Home Medications Medication Instructions Recorded Confirmed tiZANidine [Zanaflex] 4 mg PO BID 02/26/18 03/17/24 oxyCODONE-APAP 10-325MG [Percocet 1 tab PO BID PRN 01/02/20 03/17/24 10-325 mg] Aspirin EC [Ecotrin Low Dose] 81 mg PO DAILY 04/23/23 03/17/24 Folic Acid 1 mg PO DAILY 04/23/23 03/17/24 Gabapentin [Neurontin] 400 mg PO TID 06/27/23 03/17/24 Morphine Sulfate ER [Ms Contin] 15 mg PO Q12HR 03/17/24 03/17/24 Previous Rx's Medication Instructions Recorded Nitroglycerin Sl Tabs [Nitrostat] 0.4 mg SUBLINGUAL Q5M PRN #30 tab 07/23/23 Isosorbide Mononitrate ER [Imdur] 30 mg PO DAILY #30 tab 12/28/23 Losartan [Cozaar] 50 mg PO DAILY #30 tab 12/28/23 Metoprolol Tartrate [Lopressor] 100 mg PO BID #60 tab 12/28/23 amLODIPine [Norvasc] 10 mg PO DAILY #30 tab 12/28/23 hydrALAZINE HCL [Apresoline] 100 mg PO TID #90 tab 12/28/23 methIMAzole [Tapazole] 5 mg PO BID #60 tab 12/28/23 SUMAtriptan succinate [Imitrex] 25 mg PO Q4H #5 tablet 01/01/24 Atorvastatin [Lipitor] 40 mg PO DAILY 30 Days #30 tablet 03/18/24 Metoclopramide HCl [Reglan] 10 mg PO BID 30 Days #60 tablet 03/18/24 polyethylene glycoL 3350 [Miralax] 17 gm PO DAILY 30 Days #30 packet 03/18/24 Allergies Allergy/AdvReac Type Severity Reaction Status Date / Time codeine Allergy Itching Verified 04/22/24 12:52 ibuprofen [From Motrin] Allergy Rash/Hives Verified 04/22/24 12:52 ketorolac tromethamine Allergy Rash/Hives Verified 04/22/24 12:52 [From Toradol] Review of Systems ROS Statement: Those systems with pertinent positive or pertinent negative responses have been documented in the HPI. ROS Other: All systems not noted in ROS Statement are negative. Past Medical History Past Medical History: Coronary Artery Disease (CAD), Chest Pain / Angina, Deep Vein Thrombosis (DVT), GERD/Reflux, Hyperlipidemia, Hypertension, Osteoarthritis (OA), Thyroid Disorder Additional Past Medical History / Comment(s): Occasional palpitations, gastritis, small hiatal hernia, diverticular dx, pt states years ago he had PUD, chronic low back pain, chronic pain syndrome, migraines, DVT L arm, numbness/tingling bilateral lower legs, bilateral past R hand fracture, arthritis multiple joints, hyperthyroid, sinus problems. History of Any Multi-Drug Resistant Organisms: None Reported Past Surgical History: Back Surgery, Cholecystectomy, Heart Catheterization With Stent, Orthopedic Surgery Additional Past Surgical History / Comment(s): EGDs/colonoscopies, multiple low back surgeries, bilateral arm and bilateral thigh surgeries for brown recluse spider bites with infection, morphine pain pump insertion and removal due to infection, PCI with stents, L rotator cuff repair, L knee arthroscopy, cervical fusion/cage, R cataract removal.left knee replacement 10/27/2023 Past Anesthesia/Blood Transfusion Reactions: No Reported Reaction Additional Past Anesthesia/Blood Transfusion Reaction / Comment(s): 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 states he was "down for 12 minutes" lower back surgery Date of Last Stent Placement:: 10/12/17 Past Psychological History: Anxiety Smoking Status: Former smoker Past Alcohol Use History: None Reported Past Drug Use History: None Reported - Past Family History Father Family Medical History: No Reported History Additional Family Medical History / Comment(s): Father had back problems. He lived to be 82 yrs old. Mother History Unknown: Yes Family Medical History: Hypertension, Myocardial Infarction (DE) Additional Family Medical History / Comment(s): Mother of a DE at the age of 55yrs. Brother(s) Family Medical History: Cancer, COPD Additional Family Medical History / Comment(s): Leukemia General Exam Limitations: no limitations General appearance: alert, in no apparent distress Neck exam: Present: normal inspection. Absent: tenderness, meningismus, lymphadenopathy Respiratory exam: Present: normal lung sounds bilaterally. Absent: respiratory distress, wheezes, rales, rhonchi, stridor Cardiovascular Exam: Present: regular rate, normal rhythm, normal heart sounds. Absent: systolic murmur, diastolic murmur, rubs, gallop, clicks Extremities exam: Present: joint swelling (left knee. healed surgical scar. 2+ bilateral PT pulses. sensation intact. limited left knee flexion due to swelling) Back exam: Present: normal inspection Neurological exam: Present: alert, oriented X3, CN II-XII intact Skin exam: Present: warm, dry, intact, normal color. Absent: rash Course Vital Signs 04/22/24 04/22/24 12:50 14:51 Temperature 98 F Pulse Rate 68 80 Respiratory 16 18 Rate Blood Pressure 186/103 132/78 O2 Sat by Pulse 99 98 Oximetry Medical Decision Making - Medical Decision Making Was pt. sent in by a medical professional or institution (FAITH Burns, CONTROL ROOM TECHNICIAN, urgent care, hospital, or detention...) When possible be specific @ -No Did you speak to anyone other than the patient for history (EMS, parent, family, police, friend...)? What history was obtained from this source @ -No Did you review nursing and triage notes (agree or disagree)? Why? @ -I reviewed and agree with nursing and triage notes Were old charts reviewed (outside hosp., previous admission, EMS record, old EKG, old radiological studies, urgent care reports/EKG's, detention records)? Report findings @ -No old charts were reviewed Differential Diagnosis (chest pain, altered mental status, abdominal pain women, abdominal pain men, vaginal bleeding, weakness, fever, dyspnea, syncope, headache, dizziness, GI bleed, back pain, seizure, CVA, palpatations, mental health, musculoskeletal)? @ -Differential Musculoskeletal: Muscular strain, contusion, ligament sprain, fracture, arthritis, septic arthritis, bursitis, cellulitis, muscle spasm, nerve compression, DVT, arterial occlusion, herpes zoster, electrolyte abnormality, tumor.... This is not meant to be in all inclusive list EKG interpreted by me (3pts min.). @ -None X-rays interpreted by me (1pt min.). @ -Left knee x-ray interpreted by me negative for acute fractures or dis locations. Hardware intact. mild soft tissue edema. X-ray of right tibia- fibula negative for acute fractures. There is a exostosis extending off proximal tibia and fibula. Further evaluation recommended. CT interpreted by me (1pt min.). @ -None done U/S interpreted by me (1pt. min.). @ -None done What testing was considered but not performed or refused? (CT, X-rays, U/S, labs)? Why? @ -None What meds were considered but not given or refused? Why? @ -None Did you discuss the management of the patient with other professionals (professionals i.e. , PA, CONTROL ROOM TECHNICIAN, lab, RT, psych nurse, director of social media marketing, hotel maintenance engineer, teacher, traffic division commanding officer, case advocate)? Give summary @ -No Was smoking cessation discussed for >3mins.? @ -No Was critical care preformed (if so, how long)? @ -No Were there social determinants of health that impacted care today? How? (Homelessness, low income, unemployed, alcoholism, drug addiction, transportation, low edu. Level, literacy, decrease access to med. care, long term, r ehab)? @ -No Was there de-escalation of care discussed even if they declined (Discuss DNR or withdrawal of care, Hospice)? DNR status @ -No What co-morbidities impacted this encounter? (DM, HTN, Smoking, COPD, CAD, Cancer, CVA, ARF, Chemo, Hep., AIDS, mental health diagnosis, sleep apnea, morbid obesity)? @ -None Was patient admitted / discharged? Hospital course, mention meds given and route, prescriptions, significant lab abnormalities, going to OR and other pertinent info. @ -Discharge. 68 year old male presenting to the ER with a chief complaint of left knee pain s/p fall. History and physical exam completed. Vitals stable. Patient no signs of acute distress and nontoxic-appearing. Bilateral lower extremities neurovascular intact. No focal tenderness to palpation. There was a left knee effusion noted. Well-healed surgical scar on the left knee. Mild tenderness to right lateral negro. No erythema, contusion or rash noted. X-rays of left knee and right tibia-fibula obtained negative for acute fractures. There is an abnormality on right tibia/fibular x-ray which further evaluation is recommended per radiology. Patient received by mouth Tylenol for pain control in the ER. Results discussed with patient, all questions answered. I advised close follow-up with Dr. Vance, orthopedics, for evaluation of knee effusion and tib/fib xray abnormality to rule out more aggressive lesion. Strict return parameters discussed. Patient discharged in stable condition. Patient verbally expressed understanding and agreement with care plan. Case discussed with ED attending, Dr. Almeida. Undiagnosed new problem with uncertain prognosis? @ -No Drug Therapy requiring intensive monitoring for toxicity (Heparin, Nitro, Insulin, Cardizem)? @ -No Were any procedures done? @ -No Diagnosis/symptom? @ -Knee effusion Acute, or Chronic, or Acute on Chronic? @ -Acute Uncomplicated (without systemic symptoms) or Complicated (systemic symptoms)? @ -Uncomplicated Side effects of treatment? @ -No Exacerbation, Progression, or Severe Exacerbation? @ -No Poses a threat to life or bodily function? How? (Chest pain, USA, DE, pneumonia, PE, COPD, DKA, ARF, appy, cholecystitis, CVA, Diverticulitis, Homicidal, Suicidal, threat to staff... and all critical care pts) @ -No - Radiology Data Radiology results: report reviewed, image reviewed Disposition Clinical Impression: Knee effusion, left, Leg pain Disposition: HOME SELF-CARE Condition: Stable Instructions (If sedation given, give patient instructions): Knee Pain (ED) Additional Instructions: Follow-up with Dr. Vance next week. Return to the ER for any new or worsening symptoms. Is patient prescribed a controlled substance at d/c from ED?: No Referrals: None,Stated [Primary Care Provider] - 1-2 days Nelson Vance MD [STAFF PHYSICIAN] - 1-2 days Time of Disposition: 14:43
[2024-04-22 13:20] VITALS: TEMP 98
--- NOTE | 2024-04-22 14:15 | XR ---
EXAMINATION TYPE: XR knee complete LT DATE OF EXAM: 04/22/2024 COMPARISON: 12/10/2023 HISTORY: Pain TECHNIQUE: Three views are submitted. FINDINGS: Postsurgical change compatible with knee replacement surgery. Mild generalized demineralization. Ashlee t vascular calcifications. Small amount of soft tissue edema anterior to the patella. A small amount of fluid in the suprapatellar bursa. IMPRESSION: 1. No acute fracture or dislocation. 2. Soft tissue edema anteriorly with a small amount of fluid in the suprapatellar bursa. 3. Postsurgical changes.
--- NOTE | 2024-04-22 14:19 | XR ---
EXAMINATION TYPE: XR tibia fibula RT DATE OF EXAM: 04/22/2024 COMPARISON: NONE HISTORY: Pain TECHNIQUE: Two views are submitted. FINDINGS: Mild narrowing of the medial compartment patellofemoral compartment joint space. Small suprapatellar bursal fluid collection. There is a soft tissue ossification likely heterotopic. There is a exostosis extending off the proximal tibia and fibula one larger lesion seen extending off the lateral cortex of the tibia. Possibly representing osteochondroma or prior surgery. Given the size of the lesion bon e scan is recommended to exclude any aggressive etiology. Vascular calcifications noted. IMPRESSION: 1. No acute fracture. 2. There is exostosis extending off the proximal tibia and fibula the sizable area noted involving th e tibia. This could represent an osteochondroma in the absence of a history of prior surgery. Would r ecommend bone scan to assess for more aggressive lesion.
[2024-04-22] MEDS: ACETAMINOPHEN TAB 325 MG TAB PO STA (14:47)
[2024-04-22 15:56] VITALS: BP 132/78; PULSE 80; RESP 18
== END 2024-04-22 14:52 | disposition home or self-care (01) ==
LOC: EC 12:33
DX: M25.462 Effusion, left knee (principal); Z88.5 Allergy status to narcotic agent; Z88.6 Allergy status to analgesic agent; Z87.891 Personal history of nicotine dependence; W10.9XXA Fall (on) (from) unspecified stairs and steps, initial encounter
CPT/HCPCS: 99283

== ENCOUNTER 2024-04-26 10:54 | Emergency (ER) | payer MEDICARE ==
--- NOTE | 2024-04-26 11:18 | ED ---
Headache HPI - General Chief Complaint: Headache Stated Complaint: Migraine Time Seen by Provider: 04/26/24 11:04 Source: patient, RN notes reviewed Mode of arrival: ambulatory Limitations: no limitations - History of Present Illness Initial Comments: 68-year-old male presents emergency department with chief complaint of a headache, migraine. Patient states he has chronic headaches this is typical headache for patient and alleviated with [id number] medications. He denies any fevers or chills no trauma no visual disturbance does have mild light sensitivity. No other complaints. - Related Data Home Medications Medication Instructions Recorded Confirmed tiZANidine [Zanaflex] 4 mg PO BID 02/26/18 03/17/24 oxyCODONE-APAP 10-325MG [Percocet 1 tab PO BID PRN 01/02/20 03/17/24 10-325 mg] Aspirin EC [Ecotrin Low Dose] 81 mg PO DAILY 04/23/23 03/17/24 Folic Acid 1 mg PO DAILY 04/23/23 03/17/24 Gabapentin [Neurontin] 400 mg PO TID 06/27/23 03/17/24 Morphine Sulfate ER [Ms Contin] 15 mg PO Q12HR 03/17/24 03/17/24 Previous Rx's Medication Instructions Recorded Nitroglycerin Sl Tabs [Nitrostat] 0.4 mg SUBLINGUAL Q5M PRN #30 tab 07/23/23 Isosorbide Mononitrate ER [Imdur] 30 mg PO DAILY #30 tab 12/28/23 Losartan [Cozaar] 50 mg PO DAILY #30 tab 12/28/23 Metoprolol Tartrate [Lopressor] 100 mg PO BID #60 tab 12/28/23 amLODIPine [Norvasc] 10 mg PO DAILY #30 tab 12/28/23 hydrALAZINE HCL [Apresoline] 100 mg PO TID #90 tab 12/28/23 methIMAzole [Tapazole] 5 mg PO BID #60 tab 12/28/23 SUMAtriptan succinate [Imitrex] 25 mg PO Q4H #5 tablet 01/01/24 Atorvastatin [Lipitor] 40 mg PO DAILY 30 Days #30 tablet 03/18/24 Metoclopramide HCl [Reglan] 10 mg PO BID 30 Days #60 tablet 03/18/24 polyethylene glycoL 3350 [Miralax] 17 gm PO DAILY 30 Days #30 packet 03/18/24 Allergies Allergy/AdvReac Type Severity Reaction Status Date / Time codeine Allergy Itching Verified 04/26/24 10:57 ibuprofen [From Motrin] Allergy Rash/Hives Verified 04/26/24 10:57 ketorolac tromethamine Allergy Rash/Hives Verified 04/26/24 10:57 [From Toradol] Review of Systems ROS Statement: Those systems with pertinent positive or pertinent negative responses have been documented in the HPI. ROS Other: All systems not noted in ROS Statement are negative. Past Medical History Past Medical History: Coronary Artery Disease (CAD), Chest Pain / Angina, Deep Vein Thrombosis (DVT), GERD/Reflux, Hyperlipidemia, Hypertension, Osteoarthritis (OA), Thyroid Disorder Additional Past Medical History / Comment(s): Occasional palpitations, gastritis, small hiatal hernia, diverticular dx, pt states years ago he had PUD, chronic low back pain, chronic pain syndrome, migraines, DVT L arm, numbnes s/tingling bilateral lower legs, bilateral past R hand fracture, arthritis multiple joints, hyperthyroid, sinus problems. History of Any Multi-Drug Resistant Organisms: None Reported Past Surgical History: Back Surgery, Cholecystectomy, Heart Catheterization With Stent, Orthopedic Surgery Additional Past Surgical History / Comment(s): EGDs/colonoscopies, multiple low back surgeries, bilateral arm and bilateral thigh surgeries for brown recluse spider bites with infection, morphine pain pump insertion and removal due to infection, PCI with stents, L rotator cuff repair, L knee arthroscopy, cervical fusion/cage, R cataract removal.left knee replacement 10/27/2023 Past Anesthesia/Blood Transfusion Reactions: No Reported Reaction Additional Past Anesthesia/Blood Transfusion Reaction / Comment(s): 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 states he was "down for 12 minutes" lower back surgery Date of Last Stent Placement:: 10/12/17 Past Psychological History: Anxiety Smoking Status: Former smoker Past Alcohol Use History: None Reported Past Drug Use History: None Reported - Past Family History Father Family Medical History: No Reported History Additional Family Medical History / Comment(s): Father had back problems. He lived to be 82 yrs old. Mother History Unknown: Yes Family Medical History: Hypertension, Myocardial Infarction (MO) Additional Family Medical History / Comment(s): Mother of a MO at the age of 55yrs. Brother(s) Family Medical History: Cancer, COPD Additional Family Medical History / Comment(s): Leukemia General Exam Limitations: no limitations General appearance: alert, in no apparent distress Head exam: Present: atraumatic, normocephalic, normal inspection Eye exam: Present: normal appearance, PERRL, EOMI. Absent: scleral icterus, conjunctival injection, periorbital swelling ENT exam: Present: normal exam, mucous membranes moist Neck exam: Present: normal inspection. Absent: tenderness, meningismus, lymphadenopathy Respiratory exam: Present: normal lung sounds bilaterally. Absent: respiratory distress, wheezes, rales, rhonchi, stridor Cardiovascular Exam: Present: regular rate, normal rhythm, normal heart sounds. Absent: systolic murmur, diastolic murmur, rubs, gallop, clicks Neurological exam: Present: alert, oriented X3, CN II-XII intact, reflexes normal. Absent: motor sensory deficit Course Vital Signs 04/26/24 04/26/24 10:55 12:10 Temperature 98.4 F 97.5 F L Pulse Rate 110 H 104 H Respiratory 20 16 Rate Blood Pressure 173/103 167/94 O2 Sat by Pulse 99 98 Oximetry Medical Decision Making - Medical Decision Making Was pt. sent in by a medical professional or institution (, PA, SHOVEL LOADER OPERATOR, urgent care, hospital, or group home...) When possible be specific @ -No Did you speak to anyone other than the patient for history (EMS, parent, family, police, friend...)? What history was obtained from this source @ -No Did you review nursing and triage notes (agree or disagree)? Why? @ -I reviewed and agree with nursing and triage notes Were old charts reviewed (outside hosp., previous admission, EMS record, old EKG, old radiological studies, urgent care reports/EKG's, group home records)? Report findings @ -No old charts were reviewed Differential Diagnosis (chest pain, altered mental status, abdominal pain women, abdominal pain men, vaginal bleeding, weakness, fever, dyspnea, syncope, headac he, dizziness, GI bleed, back pain, seizure, CVA, palpatations, mental health, musculoskeletal)? @ -Differential Headache: Migraine, tension, cluster, carbon monoxide, central venous thrombosis, pension karma temporal arteritis, acute closure glaucoma, intercranial hemorrhage, mastoiditis, sinusitis, head injury, this is not meant to be an all-inclusive list. EKG interpreted by me (3pts min.). @ -None X-rays interpreted by me (1pt min.). @ -None done CT interpreted by me (1pt min.). @ -None done U/S interpreted by me (1pt. min.). @ -None done What testing was considered but not performed or refused? (CT, X-rays, U/S, labs)? Why? @ -None What meds were considered but not given or refused? Why? @ -None Did you discuss the management of the patient with other professionals (professionals i.e. DrYana, PA, SHOVEL LOADER OPERATOR, lab, RT, psych nurse, social services designee, life consultant, teacher, defence force senior officer, case repairer)? Give summary @ -No Was smoking cessation discussed for >3mins.? @ -No Was critical care preformed (if so, how long)? @ -No Were there social determinants of health that impacted care today? How? (Homelessness, low income, unemployed, alcoholism, drug addiction, transportation, low edu. Level, literacy, decrease access to med. care, longterm, rehab)? @ -No Was there de-escalation of care discussed even if they declined (Discuss DNR or withdrawal of care, Hospice)? DNR status @ -No What co-morbidities impacted this encounter? (DM, HTN, Smoking, COPD, CAD, Cancer, CVA, ARF, Chemo, Hep., AIDS, mental health diagnosis, sleep apnea, morbid obesity)? @ -None Was patient admitted / discharged? Hospital course, mention meds given and route, prescriptions, significant lab abnormalities, going to OR and other pertinent info. @ -Discharge patient presented for migraine headache patient's symptoms have resolved patient is discharged in stable condition return parameters discussed. Undiagnosed new problem with uncertain prognosis? @ -No Drug Therapy requiring intensive monitoring for toxicity (Heparin, Nitro, Insulin, Cardizem)? @ -No Were any procedures done? @ -No Diagnosis/symptom? @Migraine headache Acute, or Chronic, or Acute on Chronic? @ -Acute Uncomplicated (without systemic symptoms) or Complicated (systemic symptoms)? @ -Uncomplicated Side effects of treatment? @ -No Exacerbation, Progression, or Severe Exacerbation? @ -No Poses a threat to life or bodily function? How? (Chest pain, USA, MO, pneumonia, PE, COPD, DKA, ARF, appy, cholecystitis, CVA, Diverticulitis, Homicidal, Suicidal, threat to staff... and all critical care pts) @ -No Disposition Clinical Impression: Migraine headache Disposition: HOME SELF-CARE Condition: Stable Instructions (If sedation given, give patient instructions): Acute Headache (ED) Additional Instructions: Please return to the Emergency Department if symptoms worsen or any other concerns. Is patient prescribed a controlled substance at d/c from ED?: No Referrals: None,Stated [Primary Care Provider] - 1-2 days Time of Disposition: 11:18
[2024-04-26] MEDS: ONDANSETRON 4 MG/2 ML VIAL IM STA (12:03)
[2024-04-26] MEDS: HYDROmorphone 1 MG/ML 1 ML SYRINGE IM STA (12:04)
[2024-04-26 13:35] VITALS: BP 167/94; PULSE 104; RESP 16; TEMP 97.5
== END 2024-04-26 12:10 | disposition home or self-care (01) ==
LOC: EC 10:54
DX: G43.909 Migraine, unspecified, not intractable, without status migrainosus (principal); Z87.891 Personal history of nicotine dependence; Z88.5 Allergy status to narcotic agent; Z88.6 Allergy status to analgesic agent; Z88.1 Allergy status to other antibiotic agents
CPT/HCPCS: 99283; 96372 ×2; J2405; J1170

== ENCOUNTER 2024-05-10 15:39 | Emergency (ER) | payer MEDICARE, OTHER ==
--- NOTE | 2024-05-10 16:48 | ED ---
Extremity Problem HPI - General Chief complaint: Extremity Problem,Nontraumatic Stated complaint: B foot swollen Time Seen by Provider: 05/10/24 15:52 Source: patient, RN notes reviewed Mode of arrival: ambulatory Limitations: no limitations - History of Present Illness Initial comments: This is a 68-year-old male with past medical history of chronic back pain, migraines, and coronary artery disease who presents emergency department chief complaint of bilateral lower extremity pedal edema. He states that he has had worsening bilateral lower extremity swelling over the past few days. He denies personal history of congestive heart failure, DVT, PE. He states he is not on any blood thinners. Patient denies recent travel. He denies shortness of breath, chest pain, chest pressure, palpitations, dizziness, lightheadedness. Patient is requesting pain medication at this time. - Related Data Home Medications Medication Instructions Recorded Confirmed tiZANidine [Zanaflex] 4 mg PO BID 02/26/18 03/17/24 oxyCODONE-APAP 10-325MG [Percocet 1 tab PO BID PRN 01/02/20 03/17/24 10-325 mg] Aspirin EC [Ecotrin Low Dose] 81 mg PO DAILY 04/23/23 03/17/24 Folic Acid 1 mg PO DAILY 04/23/23 03/17/24 Gabapentin [Neurontin] 400 mg PO TID 06/27/23 03/17/24 Morphine Sulfate ER [Ms Contin] 15 mg PO Q12HR 03/17/24 03/17/24 Previous Rx's Medication Instructions Recorded Nitroglycerin Sl Tabs [Nitrostat] 0.4 mg SUBLINGUAL Q5M PRN #30 tab 07/23/23 Isosorbide Mononitrate ER [Imdur] 30 mg PO DAILY #30 tab 12/28/23 Losartan [Cozaar] 50 mg PO DAILY #30 tab 12/28/23 Metoprolol Tartrate [Lopressor] 100 mg PO BID #60 tab 12/28/23 amLODIPine [Norvasc] 10 mg PO DAILY #30 tab 12/28/23 hydrALAZINE HCL [Apresoline] 100 mg PO TID #90 tab 12/28/23 methIMAzole [Tapazole] 5 mg PO BID #60 tab 12/28/23 SUMAtriptan succinate [Imitrex] 25 mg PO Q4H #5 tablet 01/01/24 Atorvastatin [Lipitor] 40 mg PO DAILY 30 Days #30 tablet 03/18/24 Metoclopramide HCl [Reglan] 10 mg PO BID 30 Days #60 tablet 03/18/24 polyethylene glycoL 3350 [Miralax] 17 gm PO DAILY 30 Days #30 packet 03/18/24 Furosemide [Lasix] 60 mg PO DAILY #5 tab 05/10/24 Allergies Allergy/AdvReac Type Severity Reaction Status Date / Time codeine Allergy Itching Verified 05/10/24 15:43 ibuprofen [From Motrin] Allergy Rash/Hives Verified 05/10/24 15:43 ketorolac tromethamine Allergy Rash/Hives Verified 05/10/24 15:43 [From Toradol] Review of Systems ROS Statement: Those systems with pertinent positive or pertinent negative responses have been documented in the HPI. ROS Other: All systems not noted in ROS Statement are negative. Past Medical History Past Medical History: Coronary Artery Disease (CAD), Chest Pain / Angina, Deep Vein Thrombosis (DVT), GERD/Reflux, Hyperlipidemia, Hypertension, Osteoarthritis (OA), Thyroid Disorder Additional Past Medical History / Comment(s): Occasional palpitations, gastritis, small hiatal hernia, diverticular dx, pt states years ago he had PUD, chronic low back pain, chronic pain syndrome, migraines, DVT L arm, numbness/tingling bilateral lower legs, bilateral past R hand fracture, arthritis multiple joints, hyperthyroid, sinus problems. History of Any Multi-Drug Resistant Organisms: None Reported Past Surgical History: Back Surgery, Cholecystectomy, Heart Catheterization With Stent, Orthopedic Surgery Additional Past Surgical History / Comment(s): EGDs/colonoscopies, multiple low back surgeries, bilateral arm and bilateral thigh surgeries for brown recluse spider bites with infection, morphine pain pump insertion and removal due to infection, PCI with stents, L rotator cuff repair, L knee arthroscopy, cervical fusion/cage, R cataract removal.left knee replacement 10/27/2023 Past Anesthesia/Blood Transfusion Reactions: No Reported Reaction Additional Past Anesthesia/Blood Transfusion Reaction / Comment(s): 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 states he was "down for 12 minutes" lower back surgery Date of Last Stent Placement:: 10/12/17 Past Psychological History: Anxiety Smoking Status: Former smoker Past Alcohol Use History: None Reported Past Drug Use History: None Reported - Past Family History Father Family Medical History: No Reported History Additional Family Medical History / Comment(s): Father had back problems. He lived to be 82 yrs old. Mother History Unknown: Yes Family Medical History: Hypertension, Myocardial Infarction (MS) Additional Family Medical History / Comment(s): Mother of a MS at the age of 55yrs. Brother(s) Family Medical History: Cancer, COPD Additional Family Medical History / Comment(s): Leukemia General Exam Limitations: no limitations General appearance: alert, in no apparent distress Head exam: Present: atraumatic, normocephalic, normal inspection Eye exam: Present: normal appearance, PERRL, EOMI. Absent: scleral icterus, conjunctival injection, periorbital swelling ENT exam: Present: normal exam, mucous membranes moist Neck exam: Present: normal inspection. Absent: tenderness, meningismus, lymphadenopathy Respiratory exam: Present: normal lung sounds bilaterally. Absent: respiratory distress, wheezes, rales, rhonchi, stridor Cardiovascular Exam: Present: regular rate, normal rhythm, tachycardia, normal heart sounds. Absent: systolic murmur, diastolic murmur, rubs, gallop, clicks GI/Abdominal exam: Present: soft, normal bowel sounds. Absent: distended, tenderness, guarding, rebound, rigid Extremities exam: Present: pedal edema (bilateral) Neurological exam: Present: alert, oriented X3, CN II-XII intact Skin exam: Present: other (Bilateral lower extremity pedal edema that sounds approximately of the calves, 2+ pitting.) Course Vital Signs 05/10/24 05/10/24 15:40 17:01 Temperature 97.6 F 98.7 F Pulse Rate 112 H 79 Respiratory 18 16 Rate Blood Pressure 159/86 145/62 O2 Sat by Pulse 97 98 Oximetry Medical Decision Making - Medical Decision Making Was pt. sent in by a medical professional or institution (, PA, FIBER TECHNICIAN, urgent care, hospital, or snf...) When possible be specific @ -No Did you speak to anyone other than the patient for history (EMS, parent, family, police, friend...)? What history was obtained from this source @ -No Did you review nursing and triage notes (agree or disagree)? Why? @ -I reviewed and agree with nursing and triage notes Were old charts reviewed (outside hosp., previous admission, EMS record, old EKG, old radiological studies, urgent care reports/EKG's, snf records)? Report findings @ -No old charts were reviewed Differential Diagnosis (chest pain, altered mental status, abdominal pain women, abdominal pain men, vaginal bleeding, weakness, fever, dyspnea, syncope, headache, dizziness, GI bleed, back pain, seizure, CVA, palpatations, mental health, musculoskeletal)? @ -Venous insufficiency, thrombophlebitis, congestive heart failure, fluid retention, electrolyte imbalance, this list is not all inclusive. EKG interpreted by me (3pts min.). @ -None X-rays interpreted by me (1pt min.). @ -None done CT interpreted by me (1pt min.). @ -None done U/S interpreted by me (1pt. min.). @ -None done What testing was considered but not performed or refused? (CT, X-rays, U/S, labs)? Why? @ -Including CBC, CMP and BNP were considered but the patient had declined. Patient states that he is a hard stick for blood draw and therefore is declining insertion of an IV and blood work. What meds were considered but not given or refused? Why? @ -None Did you discuss the management of the patient with other professionals (professionals i.e. , PA, FIBER TECHNICIAN, lab, RT, psych nurse, rn social work, labor relations representative, teacher, medical officer psychiatry, family caseworker)? Give summary @ -No Was smoking cessation discussed for >3mins.? @ -No Was critical care preformed (if so, how long)? @ -No Were there social determinants of health that impacted care today? How? (Homelessness, low income, unemployed, alcoholism, drug addiction, transportation, low edu. Level, literacy, decrease access to med. care, group home, rehab)? @ -No Was there de-escalation of care discussed even if they declined (Discuss DNR or withdrawal of care, Hospice)? DNR status @ -No What co-morbidities impacted this encounter? (DM, HTN, Smoking, COPD, CAD, Cancer, CVA, ARF, Chemo, Hep., AIDS, mental health diagnosis, sleep apnea, morbid obesity)? @ -None Was patient admitted / discharged? Hospital course, mention meds given and route, prescriptions, significant lab abnormalities, going to OR and other pertinent info. @ -Discharge. 68-year-old male with bilateral pedal edema. On examination patient noted to have 2+ bilateral pedal edema (approximately into the calves. Patient is refusing blood work stating that he has a hard draw. Discussion with patient at bedside recommend that he receives blood work but he is declining. He will be provided with pain medication, Benadryl, and a dose of Lasix in the emergency department. Recommend that patient picks up dose of Lasix over the next 5 days for further diuresis. All questions answered at bedside and strict return parameters discussed with the patient which she has verbalized understanding. Discussed with Dr. Arellano Undiagnosed new problem with uncertain prognosis? @ -No Drug Therapy requiring intensive monitoring for toxicity (Heparin, Nitro, Insulin, Cardizem)? @ -No Were any procedures done? @ -No Diagnosis/symptom? @ -bilateral lower extremity edema, venous insufficiency Acute, or Chronic, or Acute on Chronic? @ -Acute on chronic Uncomplicated (without systemic symptoms) or Complicated (systemic symptoms)? @ -uncomplicated Side effects of treatment? @ -No Exacerbation, Progression, or Severe Exacerbation? @ -No Poses a threat to life or bodily function? How? (Chest pain, [place], MS, pneumonia, PE, COPD, DKA, ARF, appy, cholecystitis, CVA, Diverticulitis, Homicidal, Suicidal, threat to staff... and all critical care pts) @ -No Disposition Clinical Impression: Pedal edema, Venous insufficiency Disposition: HOME SELF-CARE Condition: Good Instructions (If sedation given, give patient instructions): Leg Edema (ED) Additional Instructions: Return to the emergency department if symptoms worsen or improve. Complete full course of Lasix as prescribed. Prescriptions: Furosemide [Lasix] 60 mg PO DAILY #5 tab Is patient prescribed a controlled substance at d/c from ED?: No Referrals: None,Stated [Primary Care Provider] - 1-2 days Time of Disposition: 16:49
[2024-05-10] MEDS: FUROSEMIDE 20 MG TAB PO STA (16:56)
[2024-05-10] MEDS: HYDROmorphone 0.5 MG/0.5 ML SYRINGE IM STA (16:57)
[2024-05-10] MEDS: diphenhydrAMINE 50 MG CAP PO STA (16:58)
[2024-05-10 17:02] VITALS: BP 145/62; PULSE 79; RESP 16; TEMP 98.7
== END 2024-05-10 17:12 | disposition home or self-care (01) ==
LOC: EC 15:39
DX: I87.2 Venous insufficiency (chronic) (peripheral) (principal); Z88.5 Allergy status to narcotic agent; Z88.6 Allergy status to analgesic agent; Z87.891 Personal history of nicotine dependence
CPT/HCPCS: 99283; 96372; J1170

== ENCOUNTER 2024-05-14 21:03 | Emergency (ER) | payer MEDICARE, OTHER ==
--- NOTE | 2024-05-14 22:30 | ED ---
Chest Pain HPI - General Chief Complaint: Chest Pain Stated Complaint: chest pain Time Seen by Provider: 05/14/24 21:33 Source: patient, RN notes reviewed, old records reviewed Mode of arrival: ambulatory Limitations: no limitations - History of Present Illness Initial Comments: This is a 68-year-old male well-known to this ER patient presented for eval uation of chest pain no acute findings or cause of chest pain noted here in the emergency room patient has persistent chest pain on arrival well-known to this emergency department for prior episodes of chest pain and evaluations in the past. MD Complaint: chest pain -: days(s) Pain Location: substernal Pain Radiation: none Consistency: intermittent, now resolved Improves With: nothing Worsens With: nothing Treatments Prior to Arrival: none - Related Data Home Medications Medication Instructions Recorded Confirmed tiZANidine [Zanaflex] 4 mg PO BID 02/26/18 03/17/24 oxyCODONE-APAP 10-325MG [Percocet 1 tab PO BID PRN 01/02/20 03/17/24 10-325 mg] Aspirin EC [Ecotrin Low Dose] 81 mg PO DAILY 04/23/23 03/17/24 Folic Acid 1 mg PO DAILY 04/23/23 03/17/24 Gabapentin [Neurontin] 400 mg PO TID 06/27/23 03/17/24 Morphine Sulfate ER [Ms Contin] 15 mg PO Q12HR 03/17/24 03/17/24 Previous Rx's Medication Instructions Recorded Nitroglycerin Sl Tabs [Nitrostat] 0.4 mg SUBLINGUAL Q5M PRN #30 tab 07/23/23 Isosorbide Mononitrate ER [Imdur] 30 mg PO DAILY #30 tab 12/28/23 Losartan [Cozaar] 50 mg PO DAILY #30 tab 12/28/23 Metoprolol Tartrate [Lopressor] 100 mg PO BID #60 tab 12/28/23 amLODIPine [Norvasc] 10 mg PO DAILY #30 tab 12/28/23 hydrALAZINE HCL [Apresoline] 100 mg PO TID #90 tab 12/28/23 methIMAzole [Tapazole] 5 mg PO BID #60 tab 12/28/23 SUMAtriptan succinate [Imitrex] 25 mg PO Q4H #5 tablet 01/01/24 Atorvastatin [Lipitor] 40 mg PO DAILY 30 Days #30 tablet 03/18/24 Metoclopramide HCl [Reglan] 10 mg PO BID 30 Days #60 tablet 03/18/24 polyethylene glycoL 3350 [Miralax] 17 gm PO DAILY 30 Days #30 packet 03/18/24 Furosemide [Lasix] 60 mg PO DAILY #5 tab 05/10/24 Allergies Allergy/AdvReac Type Severity Reaction Status Date / Time codeine Allergy Itching Verified 05/14/24 21:07 ibuprofen [From Motrin] Allergy Rash/Hives Verified 05/14/24 21:07 ketorolac tromethamine Allergy Rash/Hives Verified 05/14/24 21:07 [From Toradol] Review of Systems ROS Statement: Those systems with pertinent positive or pertinent negative responses have been documented in the HPI. ROS Other: All systems not noted in ROS Statement are negative. EKG Findings - EKG Comments: EKG Findings:: EKG is Sinus tachycardia 113 CO 161 QRS 98 QTc 420 - EKG Results: EKG: interpreted by MICHAEL Past Medical History Past Medical History: Coronary Artery Disease (CAD), Chest Pain / Angina, Deep Vein Thrombosis (DVT), GERD/Reflux, Hyperlipidemia, Hypertension, Osteoarthritis (OA), Thyroid Disorder Additional Past Medical History / Comment(s): Occasional palpitations, gastritis, small hiatal hernia, diverticular dx, pt states years ago he had PUD, chronic low back pain, chronic pain syndrome, migraines, DVT L arm, numbness/tingling bilateral lower legs, bilateral past R hand fracture, arthritis multiple joints, hyperthyroid, sinus problems. History of Any Multi-Drug Resistant Organisms: None Reported Past Surgical History: Back Surgery, Cholecystectomy, Heart Catheterization With Stent, Orthopedic Surgery Additional Past Surgical History / Comment(s): EGDs/colonoscopies, multiple low back surgeries, bilateral arm and bilateral thigh surgeries for brown recluse spider bites with infection, morphine pain pump insertion and removal due to infection, PCI with stents, L rotator cuff repair, L knee arthroscopy, cervical fusion/cage, R cataract removal.left knee replacement 10/27/2023 Past Anesthesia/Blood Transfusion Reactions: No Reported Reaction Additional Past Anesthesia/Blood Transfusion Reaction / Comment(s): 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 states he was "down for 12 minutes" lower back surgery Date of Last Stent Placement:: 10/12/17 Past Psychological History: Anxiety Smoking Status: Former smoker Past Alcohol Use History: None Reported Past Drug Use History: None Reported - Past Family History Father Family Medical History: No Reported History Additional Family Medical History / Comment(s): Father had back problems. He lived to be 82 yrs old. Mother History Unknown: Yes Family Medical History: Hypertension, Myocardial Infarction ([place]) Additional Family Medical History / Comment(s): Mother of a [place] at the age of 55yrs. Brother(s) Family Medical History: Cancer, COPD Additional Family Medical History / Comment(s): Leukemia General Exam Limitations: no limitations General appearance: alert, in no apparent distress, anxious Head exam: Present: atraumatic, normocephalic, normal inspection Eye exam: Present: normal appearance, PERRL, EOMI. Absent: scleral icterus, conjunctival injection, periorbital swelling ENT exam: Present: normal exam, mucous membranes moist Neck exam: Present: normal inspection. Absent: tenderness, meningismus, lymphadenopathy Respiratory exam: Present: normal lung sounds bilaterally. Absent: respiratory distress, wheezes, rales, rhonchi, stridor Cardiovascular Exam: Present: regular rate, normal rhythm, normal heart sounds. Absent: systolic murmur, diastolic murmur, rubs, gallop, clicks GI/Abdominal exam: Present: soft, normal bowel sounds. Absent: distended, tenderness, guarding, rebound, rigid Extremities exam: Present: normal inspection, full ROM, normal capillary refill. Absent: tenderness, pedal edema, joint swelling, calf tenderness Back exam: Present: normal inspection Neurological exam: Present: alert, oriented X3, CN II-XII intact Psychiatric exam: Present: normal affect, normal mood Skin exam: Present: warm, dry, intact, normal color. Absent: rash Course Vital Signs 05/14/24 05/14/24 21:06 22:57 Temperature 98.3 F 98.2 F Pulse Rate 119 H 80 Respiratory 20 17 Rate Blood Pressure 160/97 169/82 O2 Sat by Pulse 99 95 Oximetry - Reevaluation(s) Reevaluation #1: Medical records reviewed Reevaluation #2: Patient symptoms improved Reevaluation #3: Patient informed of results and questions answered Reevaluation #4: Was pt. sent in by a medical professional or institution (, PA, CHIEF MINISTER, urgent care, hospital, or group home...) When possible be specific @ -no Did you speak to anyone other than the patient for history (EMS, parent, family, police, friend...)? What history was obtained from this source @ -no Did you review nursing and triage notes (agree or disagree)? Why? @ -agree Are old charts reviewed (outside hosp., previous admission, EMS record, old EKG, old radiological studies, urgent care reports/EKG's, group home records)? Report findings @ -yes Differential Diagnosis (chest pain, altered mental status, abdominal pain women, abdominal pain men, vaginal bleeding, weakness, fever, dyspnea, syncope, headache, dizziness, GI bleed, back pain, seizure, CVA, palpatations, mental health, musculoskeletal)? @ -prior EKG interpreted by me (3pts min.). @ -yes X-rays interpreted by me (1pt min.). @ -no CT interpreted by me (1pt min.). @ -no U/S interpreted by me (1pt. min.). @ -no What testing was considered but not performed or refused? (CT, X-rays, U/S, labs)? Why? @ -none What meds were considered but not given or refused? Why? @ -none Did you discuss the management of the patient with other professionals (professionals i.e. FAITH Burns, CHIEF MINISTER, lab, RT, psych nurse, licensed clinical social worker, flame gouger, teacher, code enforcement officer, hospice case manager)? Give summary @ -no Was smoking cessation discussed for >3mins.? @ -no Was critical care preformed (if so, how long)? @ -no Were there social determinants of health that impacted care today? How? (Homelessness, low income, unemployed, alcoholism, drug addiction, transportation, low edu. Level, literacy, decrease access to med. care, penitentiary, rehab)? @ -none Was there de-escalation of care discussed even if they declined (Discuss DNR or withdrawal of care, Hospice)? DNR status @ -no What co-morbidities impacted this encounter? (DM, HTN, Smoking, COPD, CAD, Cancer, CVA, ARF, Chemo, Hep., AIDS, mental health diagnosis, sleep apnea, morbid obesity)? @ -none Was patient admitted / discharged? Hospital course, mention meds given and route, prescriptions, significant lab abnormalities, going to OR and other pertinent info. @ - 68 male with chest pain, nonspecific chest pain which is improved here in the ER patient feels improved and can be discharged home Discharge Undiagnosed new problem with uncertain prognosis? @ -no Drug Therapy requiring intensive monitoring for toxicity (Heparin, Nitro, Insulin, Cardizem)? @ -no Were any procedures done? @ -no Diagnosis/symptom? @ - Acute, or Chronic, or Acute on Chronic? @ -Acute Uncomplicated (without systemic symptoms) or Complicated (systemic symptoms)? @ -Complicated Side effects of treatment? @ -no Exacerbation, Progression, or Severe Exacerbation? @ -exacerbation Poses a threat to life or bodily function? How? (Chest pain, [place], [place], pneumonia, PE, COPD, DKA, ARF, appy, cholecystitis, CVA, Diverticulitis, Homicidal, Suicidal, threat to staff... and all critical care pts) @ -yes with chest pain chest pain Reevaluation #5: Differential Chest Pain: Stable Angina, Unstable Angina, STEMI, NSTEMI Aortic Dissection, Pneumothorax, Musculoskeletal, Esophageal Spasm GERD, Cholecystitis, Pancreatitis, Zoster, this is not meant to be an all-inclusive list. Chest Pain MDM - MDM 68 male with chest pain, nonspecific chest pain which is improved here in the ER patient feels improved and can be discharged home Disposition Clinical Impression: Headache, Chest pain, Atypical chest pain Disposition: HOME SELF-CARE Condition: Fair Instructions (If sedation given, give patient instructions): Chest Pain (ED) Is patient prescribed a controlled substance at d/c from ED?: No Referrals: None,Stated [Primary Care Provider] - 1-2 days Time of Disposition: 22:55
[2024-05-14] MEDS: HYDROmorphone 1 MG/ML 1 ML SYRINGE IM STA (22:47)
[2024-05-14] MEDS: PROCHLORPERAZINE 10 MG TAB PO STA (22:51)
[2024-05-14] MEDS: diphenhydrAMINE 50 MG CAP PO STA (22:51)
[2024-05-14 23:01] VITALS: BP 169/82; PULSE 80; RESP 17; TEMP 98.2
== END 2024-05-14 23:01 | disposition home or self-care (01) ==
LOC: EC 21:03
DX: R51.9 Headache, unspecified (principal); R07.89 Other chest pain; R00.0 Tachycardia, unspecified; Z88.5 Allergy status to narcotic agent; Z88.6 Allergy status to analgesic agent; Z87.891 Personal history of nicotine dependence
CPT/HCPCS: 93005; 99284; 96372; S0183; J1170

== ENCOUNTER 2024-06-11 21:10 | Emergency (ER) | payer MEDICARE, OTHER ==
[2024-06-11 21:54] VITALS: RESP 18; TEMP 97.3
--- NOTE | 2024-06-11 22:08 | ED ---
Recheck HPI - General Chief Complaint: Abdominal Pain Stated Complaint: Abd pain Time Seen by Provider: 06/11/24 21:25 Source: patient, RN notes reviewed, old records reviewed Mode of arrival: ambulatory Limitations: no limitations - History of Present Illness Initial Comments: This is a 68-year-old male presenting to the ER today for evaluation patient presents to us for evaluation regards to abdominal pain back pain hypertension chest pain body aches and headaches. No trauma no fevers no other complaints patient admits to taking her medications as prescribed MD Complaint: medication refill request -: days(s) Returns Today for: Called Because of Abnormal Lab/Test, persistent/worsening pain related to initial visit Symptoms Since Prior Visit: worsening pain Associated Symptoms: none - Related Data Home Medications Medication Instructions Recorded Confirmed tiZANidine [Zanaflex] 4 mg PO BID 02/26/18 03/17/24 oxyCODONE-APAP 10-325MG [Percocet 1 tab PO BID PRN 01/02/20 03/17/24 10-325 mg] Aspirin EC [Ecotrin Low Dose] 81 mg PO DAILY 04/23/23 03/17/24 Folic Acid 1 mg PO DAILY 04/23/23 03/17/24 Gabapentin [Neurontin] 400 mg PO TID 06/27/23 03/17/24 Morphine Sulfate ER [Ms Contin] 15 mg PO Q12HR 03/17/24 03/17/24 Previous Rx's Medication Instructions Recorded Nitroglycerin Sl Tabs [Nitrostat] 0.4 mg SUBLINGUAL Q5M PRN #30 tab 07/23/23 Isosorbide Mononitrate ER [Imdur] 30 mg PO DAILY #30 tab 12/28/23 Losartan [Cozaar] 50 mg PO DAILY #30 tab 12/28/23 Metoprolol Tartrate [Lopressor] 100 mg PO BID #60 tab 12/28/23 amLODIPine [Norvasc] 10 mg PO DAILY #30 tab 12/28/23 hydrALAZINE HCL [Apresoline] 100 mg PO TID #90 tab 12/28/23 methIMAzole [Tapazole] 5 mg PO BID #60 tab 12/28/23 SUMAtriptan succinate [Imitrex] 25 mg PO Q4H #5 tablet 01/01/24 Atorvastatin [Lipitor] 40 mg PO DAILY 30 Days #30 tablet 03/18/24 Metoclopramide HCl [Reglan] 10 mg PO BID 30 Days #60 tablet 03/18/24 polyethylene glycoL 3350 [Miralax] 17 gm PO DAILY 30 Days #30 packet 03/18/24 Furosemide [Lasix] 60 mg PO DAILY #5 tab 05/10/24 Allergies Allergy/AdvReac Type Severity Reaction Status Date / Time codeine Allergy Itching Verified 05/14/24 21:07 ibuprofen [From Motrin] Allergy Rash/Hives Verified 05/14/24 21:07 ketorolac tromethamine Allergy Rash/Hives Verified 05/14/24 21:07 [From Toradol] Review of Systems ROS Statement: Those systems with pertinent positive or pertinent negative responses have been documented in the HPI. ROS Other: All systems not noted in ROS Statement are negative. Past Medical History Past Medical History: Coronary Artery Disease (CAD), Chest Pain / Angina, Deep Vein Thrombosis (DVT), GERD/Reflux, Hyperlipidemia, Hypertension, Osteoarthritis (OA), Thyroid Disorder Additional Past Medical History / Comment(s): Occasional palpitations, gastritis, small hiatal hernia, diverticular dx, pt states years ago he had PUD, chronic low back pain, chronic pain syndrome, migraines, DVT L arm, numbness/tingling bilateral lower legs, bilateral past R hand fracture, arthritis multiple joints, hyperthyroid, sinus problems. History of Any Multi-Drug Resistant Organisms: None Reported Past Surgical History: Back Surgery, Cholecystectomy, Heart Catheterization With Stent, Orthopedic Surgery Additional Past Surgical History / Comment(s): EGDs/colonoscopies, multiple low back surgeries, bilateral arm and bilateral thigh surgeries for brown recluse spider bites with infection, morphine pain pump insertion and removal due to infection, PCI with stents, L rotator cuff repair, L knee arthroscopy, cervical fusion/cage, R cataract removal.left knee replacement 10/27/2023 Past Anesthesia/Blood Transfusion Reactions: No Reported Reaction Additional Past Anesthesia/Blood Transfusion Reaction / Comment(s): 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 states he was "down for 12 minutes" lower back surgery Date of Last Stent Placement:: 10/12/17 Past Psychological History: Anxiety Smoking Status: Former smoker Past Alcohol Use History: None Reported Past Drug Use History: None Reported - Past Family History Father Family Medical History: No Reported History Additional Family Medical History / Comment(s): Father had back problems. He lived to be 82 yrs old. Mother History Unknown: Yes Family Medical History: Hypertension, Myocardial Infarction ([place]) Additional Family Medical History / Comment(s): Mother of a [place] at the age of 55yrs. Brother(s) Family Medical History: Cancer, COPD Additional Family Medical History / Comment(s): Leukemia General Exam Limitations: no limitations General appearance: alert, in no apparent distress Head exam: Present: atraumatic, normocephalic, normal inspection Eye exam: Present: normal appearance, PERRL, EOMI. Absent: scleral icterus, conjunctival injection, periorbital swelling ENT exam: Present: normal exam, mucous membranes moist Neck exam: Present: normal inspection. Absent: tenderness, meningismus, lymphadenopathy Respiratory exam: Present: normal lung sounds bilaterally. Absent: respiratory distress, wheezes, rales, rhonchi, stridor Cardiovascular Exam: Present: regular rate, normal rhythm, normal heart sounds. Absent: systolic murmur, diastolic murmur, rubs, gallop, clicks GI/Abdominal exam: Present: soft, normal bowel sounds. Absent: distended, tenderness, guarding, rebound, rigid Extremities exam: Present: normal inspection, full ROM, normal capillary refill. Absent: tenderness, pedal edema, joint swelling, calf tenderness Back exam: Present: normal inspection Neurological exam: Present: alert, oriented X3, CN II-XII intact Psychiatric exam: Present: normal affect, normal mood Skin exam: Present: warm, dry, intact, normal color. Absent: rash Course Vital Signs 06/11/24 06/12/24 06/12/24 21:49 00:58 01:58 Temperature 97.3 F L Pulse Rate 95 85 88 Respiratory 18 18 18 Rate Blood Pressure 216/131 200/119 194/124 O2 Sat by Pulse 98 97 97 Oximetry - Reevaluation(s) Reevaluation #1: 06/12/24 04:06 Medical records reviewed Reevaluation #2: 06/12/24 04:06 Patient symptoms improving Reevaluation #3: 06/12/24 04:06 Patient informed of results and questions answered Reevaluation #4: Was pt. sent in by a medical professional or institution (, PA, ASSOCIATE PROFESSOR OF LIBRARY SCIENCE, urgent care, hospital, or longterm...) When possible be specific @ -no Did you speak to anyone other than the patient for history (EMS, parent, family, police, friend...)? What history was obtained from this source @ -no Did you review nursing and triage notes (agree or disagree)? Why? @ -agree Are old charts reviewed (outside hosp., previous admission, EMS record, old EKG, old radiological studies, urgent care reports/EKG's, longterm records)? Report findings @ -yes Differential Diagnosis (chest pain, altered mental status, abdominal pain women, abdominal pain men, vaginal bleeding, weakness, fever, dyspnea, syncope, headache, dizziness, GI bleed, back pain, seizure, CVA, palpatations, mental health, musculoskeletal)? @ -prior EKG interpreted by me (3pts min.). @ -yes X-rays interpreted by me (1pt min.). @ -no CT interpreted by me (1pt min.). @ -yes negative for acute disease U/S interpreted by me (1pt. min.). @ -no What testing was considered but not performed or refused? (CT, X-rays, U/S, labs)? Why? @ -none What meds were considered but not given or refused? Why? @ -none Did you discuss the management of the patient with other professionals (professionals i.e. , PA, ASSOCIATE PROFESSOR OF LIBRARY SCIENCE, lab, RT, psych nurse, psychiatric social worker supervisor, solid waste collector, teacher, job placement officer, machine adjuster leader case trim)? Give summary @ -no Was smoking cessation discussed for >3mins.? @ -no Was critical care preformed (if so, how long)? @ -no Were there social determinants of health that impacted care today? How? (Homelessness, low income, unemployed, alcoholism, drug addiction, transportation, low edu. Level, literacy, decrease access to med. care, senior living, rehab)? @ -none Was there de-escalation of care discussed even if they declined (Discuss DNR or withdrawal of care, Hospice)? DNR status @ -no What co-morbidities impacted this encounter? (DM, HTN, Smoking, COPD, CAD, Cancer, CVA, ARF, Chemo, Hep., AIDS, mental health diagnosis, sleep apnea, morbid obesity)? @ -none Was patient admitted / discharged? Hospital course, mention meds given and route, prescriptions, significant lab abnormalities, going to OR and other pertinent info. @ - 68 male to ER for evaluation of abdominal pain negative CT scan blood pressure elevated now improved and generalized body aches pains and migraine here in the ER which is improved Discharge Undiagnosed new problem with uncertain prognosis? @ -no Drug Therapy requiring intensive monitoring for toxicity (Heparin, Nitro, Insulin, Cardizem)? @ -no Were any procedures done? @ -no Diagnosis/symptom? @ -Abdominal pain hypertension Acute, or Chronic, or Acute on Chronic? @ -Acute Uncomplicated (without systemic symptoms) or Complicated (systemic symptoms)? @ -Complicated Side effects of treatment? @ -no Exacerbation, Progression, or Severe Exacerbation? @ -exacerbation Poses a threat to life or bodily function? How? (Chest pain, [place], [place], pneumonia, PE, COPD, DKA, ARF, appy, cholecystitis, CVA, Diverticulitis, Homicidal, Suicidal, threat to staff... and all critical care pts) @ -yes severe hypertensive urgency Reevaluation #5: Differential Abdominal Pain Women: Appendicitis, Cholecystitis, diverticulosis, ischemic bowel, pancreatitis, hepatitis, UTI, gastroenteritis, AAA, incarcerated hernia, bowel obstruction, constipation, inflammatory bowel, hepatitis, peptic ulcer disease, splenic infarction, perforated viscus, vulvitis, ovarian torsion, PID, kidney stone, placenta abruption, this is not meant to be an all-inclusive list Medical Decision Making - Medical Decision Making 68 male to ER for evaluation of abdominal pain negative CT scan blood pressure elevated now improved and generalized body aches pains and migraine here in the ER which is improved - Radiology Data Radiology results: report reviewed (CT abdomen pelvis is negative for acute disease), image reviewed Disposition Clinical Impression: Hypertensive emergency, Abdominal pain, Intractable headache, Vomiting, Epig astric abdominal pain, Chest pain Disposition: HOME SELF-CARE Condition: Fair Instructions (If sedation given, give patient instructions): Abdominal Pain (ED) Is patient prescribed a controlled substance at d/c from ED?: No Referrals: None,Stated [Primary Care Provider] - 1-2 days Time of Disposition: 01:45
[2024-06-11] MEDS: cloNIDine 0.2 MG/24HR PATCH TRANSDERM SCH (23:46)
[2024-06-11] MEDS: HYDROmorphone 1 MG/ML 1 ML SYRINGE IM STA (23:46)
[2024-06-11] MEDS: PROCHLORPERAZINE 10 MG TAB PO STA (23:46)
[2024-06-11] MEDS: diphenhydrAMINE 50 MG CAP PO STA (23:47)
--- NOTE | 2024-06-12 00:39 | CT ---
EXAM: CT Abdomen and Pelvis Without Intravenous Contrast CLINICAL HISTORY: ITS.REASON CT Reason: pain TECHNIQUE: Axial computed tomography images of the abdomen and pelvis without intravenous contrast. CTDI is 10.5 mGy and DLP is 656.8 mGy-cm. This CT exam was performed using one or more of the following dose reduction techniques: automated exposure control, adjustment of the mA and/or kV according to patient size, and/or use of iterative reconstruction technique. COMPARISON: No relevant prior studies available. FINDINGS: Lung bases: Unremarkable. No mass. No consolidation. ABDOMEN: Liver: Unremarkable. Gallbladder and bile ducts: Unremarkable. No calcified stones. No ductal dilation. Pancreas: Unremarkable. No ductal dilation. Spleen: Unremarkable. No splenomegaly. Adrenals: Unremarkable. No mass. Kidneys and ureters: Unremarkable. No hydronephrosis, nephrolithiasis, or obstructive uropathy. Stomach and bowel: Diverticulosis, without acute diverticulitis. No small bowel obstruction. No free intraperitoneal air. PELVIS: Appendix: No findings to suggest acute appendicitis. Bladder: Unremarkable. No stones. Reproductive: Unremarkable as visualized. ABDOMEN and PELVIS: Intraperitoneal space: Unremarkable. No free air. No significant fluid collection. Bones/joints: Multilevel posterior lumbosacral fusion hardware with small corpectomy. No acute fracture. No dislocation. Soft tissues: Unremarkable. Vasculature: Unremarkable. No abdominal aortic aneurysm. Lymph nodes: Unremarkable. No enlarged lymph nodes. IMPRESSION: 1. No hydronephrosis, nephrolithiasis, or obstructive uropathy. 2. Diverticulosis, without acute diverticulitis. No small bowel obstruction. No free intraperitoneal air.
[2024-06-12 03:00] VITALS: BP 194/124; PULSE 88
== END 2024-06-12 02:05 | disposition home or self-care (01) ==
LOC: EC 21:10
DX: I16.1 Hypertensive emergency (principal); R51.9 Headache, unspecified; R11.10 Vomiting, unspecified; R10.13 Epigastric pain; R07.9 Chest pain, unspecified; I10 Essential (primary) hypertension; Z87.891 Personal history of nicotine dependence; Z88.6 Allergy status to analgesic agent; Z88.5 Allergy status to narcotic agent; Z90.49 Acquired absence of other specified parts of digestive tract; Z95.5 Presence of coronary angioplasty implant and graft
CPT/HCPCS: 74176; 99284; 96372; S0183; J1170

== ENCOUNTER 2024-06-15 18:07 | Emergency (ER) | payer MEDICARE, OTHER ==
[2024-06-15] MEDS: HYDROmorphone 1 MG/ML 1 ML SYRINGE IM STA ×2 (19:35→20:19)
[2024-06-15] MEDS: ONDANSETRON ODT 4 MG TAB PO STA (19:36)
--- NOTE | 2024-06-15 20:30 | ED ---
Headache HPI - General Chief Complaint: Headache Stated Complaint: migraine Time Seen by Provider: 06/15/24 18:34 Mode of arrival: ambulatory Limitations: no limitations - History of Present Illness Initial Comments: 68-year-old male presents emergency department reporting migraine. States he has chronic migraines. He has been seen in our emergency department several times with the same complaint. He does have chronic pain medications at home. States that he took these medications however had no relief in his headache. Headache has been going on for 2 days. He denies any trauma. No fevers. No neck stiffness. No qualities changed from his chronic migraine. No other alleviating, precipitating or modifying factors - Related Data Home Medications Medication Instructions Recorded Confirmed tiZANidine [Zanaflex] 4 mg PO BID 02/26/18 03/17/24 oxyCODONE-APAP 10-325MG [Percocet 1 tab PO BID PRN 01/02/20 03/17/24 10-325 mg] Aspirin EC [Ecotrin Low Dose] 81 mg PO DAILY 04/23/23 03/17/24 Folic Acid 1 mg PO DAILY 04/23/23 03/17/24 Gabapentin [Neurontin] 400 mg PO TID 06/27/23 03/17/24 Morphine Sulfate ER [Ms Contin] 15 mg PO Q12HR 03/17/24 03/17/24 Previous Rx's Medication Instructions Recorded Nitroglycerin Sl Tabs [Nitrostat] 0.4 mg SUBLINGUAL Q5M PRN #30 tab 07/23/23 Isosorbide Mononitrate ER [Imdur] 30 mg PO DAILY #30 tab 12/28/23 Losartan [Cozaar] 50 mg PO DAILY #30 tab 12/28/23 Metoprolol Tartrate [Lopressor] 100 mg PO BID #60 tab 12/28/23 amLODIPine [Norvasc] 10 mg PO DAILY #30 tab 12/28/23 hydrALAZINE HCL [Apresoline] 100 mg PO TID #90 tab 12/28/23 methIMAzole [Tapazole] 5 mg PO BID #60 tab 12/28/23 SUMAtriptan succinate [Imitrex] 25 mg PO Q4H #5 tablet 01/01/24 Atorvastatin [Lipitor] 40 mg PO DAILY 30 Days #30 tablet 03/18/24 Metoclopramide HCl [Reglan] 10 mg PO BID 30 Days #60 tablet 03/18/24 polyethylene glycoL 3350 [Miralax] 17 gm PO DAILY 30 Days #30 packet 03/18/24 Furosemide [Lasix] 60 mg PO DAILY #5 tab 05/10/24 Allergies Allergy/AdvReac Type Severity Reaction Status Date / Time codeine Allergy Itching Verified 05/14/24 21:07 ibuprofen [From Motrin] Allergy Rash/Hives Verified 05/14/24 21:07 ketorolac tromethamine Allergy Rash/Hives Verified 05/14/24 21:07 [From Toradol] Review of Systems ROS Statement: Those systems with pertinent positive or pertinent negative responses have been documented in the HPI. ROS Other: All systems not noted in ROS Statement are negative. Past Medical History Past Medical History: Coronary Artery Disease (CAD), Chest Pain / Angina, Deep Vein Thrombosis (DVT), GERD/Reflux, Hyperlipidemia, Hypertension, Osteoarthritis (OA), Thyroid Disorder Additional Past Medical History / Comment(s): Occasional palpitations, gastritis, small hiatal hernia, diverticular dx, pt states years ago he had PUD, chronic low back pain, chronic pain syndrome, migraines, DVT L arm, numbness/tingling bilateral lower legs, bilateral past R hand fracture, arthritis multiple joints, hyperthyroid, sinus problems. History of Any Multi-Drug Resistant Organisms: None Reported Past Surgical History: Back Surgery, Cholecystectomy, Heart Catheterization With Stent, Orthopedic Surgery Additional Past Surgical History / Comment(s): EGDs/colonoscopies, multiple low back surgeries, bilateral arm and bilateral thigh surgeries for brown recluse spider bites with infection, morphine pain pump insertion and removal due to infection, PCI with stents, L rotator cuff repair, L knee arthroscopy, cervical fusion/cage, R cataract removal.left knee replacement 10/27/2023 Past Anesthesia/Blood Transfusion Reactions: No Reported Reaction Additional Past Anesthesia/Blood Transfusion Reaction / Comment(s): 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 states he was "down for 12 minutes" lower back surgery Date of Last Stent Placement:: 10/12/17 Past Psychological History: Anxiety Smoking Status: Former smoker Past Alcohol Use History: None Reported Past Drug Use History: None Reported - Past Family History Father Family Medical History: No Reported History Additional Family Medical History / Comment(s): Father had back problems. He lived to be 82 yrs old. Mother History Unknown: Yes Family Medical History: Hypertension, Myocardial Infarction ([place]) Additional Family Medical History / Comment(s): Mother of a [place] at the age of 55yrs. Brother(s) Family Medical History: Cancer, COPD Additional Family Medical History / Comment(s): Leukemia General Exam Limitations: no limitations General appearance: alert, in no apparent distress Head exam: Present: atraumatic, normocephalic, normal inspection Eye exam: Present: normal appearance, PERRL, EOMI. Absent: scleral icterus, conjunctival injection, periorbital swelling ENT exam: Present: normal exam, mucous membranes moist Neck exam: Present: normal inspection. Absent: tenderness, meningismus, lymphadenopathy Respiratory exam: Present: normal lung sounds bilaterally. Absent: respiratory distress, wheezes, rales, rhonchi, stridor Cardiovascular Exam: Present: regular rate, normal rhythm, normal heart sounds. Absent: systolic murmur, diastolic murmur, rubs, gallop, clicks GI/Abdominal exam: Present: soft, normal bowel sounds. Absent: distended, tenderness, guarding, rebound, rigid Extremities exam: Present: normal inspection, full ROM, normal capillary refill. Absent: tenderness, pedal edema, joint swelling, calf tenderness Back exam: Present: normal inspection Neurological exam: Present: alert, oriented X3, CN II-XII intact Psychiatric exam: Present: normal affect, normal mood Skin exam: Present: warm, dry, intact, normal color. Absent: rash Course Vital Signs 06/15/24 06/15/24 18:10 20:49 Temperature 97.6 F 97.4 F L Pulse Rate 92 89 Respiratory 18 16 Rate Blood Pressure 189/112 165/110 O2 Sat by Pulse 99 97 Oximetry Medical Decision Making - Medical Decision Making Was pt. sent in by a medical professional or institution (, PA, MINES INSPECTOR, urgent care, hospital, or retirement...) When possible be specific @ -No Did you speak to anyone other than the patient for history (EMS, parent, family, police, friend...)? What history was obtained from this source @ -No Did you review nursing and triage notes (agree or disagree)? Why? @ -I reviewed and agree with nursing and triage notes Were old charts reviewed (outside hosp., previous admission, EMS record, old EKG, old radiological studies, urgent care reports/EKG's, retirement records)? Report findings @ -No old charts were reviewed Differential Diagnosis (chest pain, altered mental status, abdominal pain women, abdominal pain men, vaginal bleeding, weakness, fever, dyspnea, syncope, headache, dizziness, GI bleed, back pain, seizure, CVA, palpatations, mental health, musculoskeletal)? @ -Differential Headache: Migraine, tension, cluster, carbon monoxide, central venous thrombosis, pension karma temporal arteritis, acute closure glaucoma, intercranial hemorrhage, mastoiditis, sinusitis, head injury, this is not meant to be an all-inclusive list. EKG interpreted by me (3pts min.). @ -Not done X-rays interpreted by me (1pt min.). @ -None done CT interpreted by me (1pt min.). @ -None done U/S interpreted by me (1pt. min.). @ -None done What testing was considered but not performed or refused? (CT, X-rays, U/S, labs)? Why? @ -None What meds were considered but not given or refused? Why? @ -None Did you discuss the management of the patient with other professionals (professionals i.e. , PA, MINES INSPECTOR, lab, RT, psych nurse, social media content manager, clinical psychologist, teacher, corporate responsibility officer, case assistant)? Give summary @ -No Was smoking cessation discussed for >3mins.? @ -No Was critical care preformed (if so, how long)? @ -No Were there social determinants of health that impacted care today? How? (Homelessness, low income, unemployed, alcoholism, drug addiction, transportation, low edu. Level, literacy, decrease access to med. care, shelter, rehab)? @ -No Was there de-escalation of care discussed even if they declined (Discuss DNR or withdrawal of care, Hospice)? DNR status @ -No What co-morbidities impacted this encounter? (DM, HTN, Smoking, COPD, CAD, Cancer, CVA, ARF, Chemo, Hep., AIDS, mental health diagnosis, sleep apnea, morbid obesity)? @ -Chronic migraines Was patient admitted / discharged? Hospital course, mention meds given and route, prescriptions, significant lab abnormalities, going to OR and other per tinent info. @ -Patient seen and evaluated in hallway 19. Thorough history and physical exam was performed. Patient was administered pain medications. He does have improvement in his symptoms. He will be discharged home at this time. Instructed to follow-up with his pain management doctor and return for any new or worsening symptoms Undiagnosed new problem with uncertain prognosis? @ -No Drug Therapy requiring intensive monitoring for toxicity (Heparin, Nitro, Insulin, Cardizem)? @ -No Were any procedures done? @ -No Diagnosis/symptom? @ -Acute cephalgia Acute, or Chronic, or Acute on Chronic? @ -Acute Uncomplicated (without systemic symptoms) or Complicated (systemic symptoms)? @ -Uncomplicated Side effects of treatment? @ -No Exacerbation, Progression, or Severe Exacerbation? @ -No Poses a threat to life or bodily function? How? (Chest pain, [place], [place], pneumonia, PE, COPD, DKA, ARF, appy, cholecystitis, CVA, Diverticulitis, Homicidal, Suicidal, threat to staff... and all critical care pts) @ -No Disposition Clinical Impression: Migraine Disposition: HOME SELF-CARE Condition: Stable Instructions (If sedation given, give patient instructions): Acute Headache (ED) Additional Instructions: Follow-up with your neurologist for further management of your pain. Return for any new or worsening symptoms Is patient prescribed a controlled substance at d/c from ED?: No Referrals: None,Stated [Primary Care Provider] - 1-2 days Time of Disposition: 20:29
[2024-06-15 20:51] VITALS: BP 165/110; PULSE 89; RESP 16; TEMP 97.4
== END 2024-06-15 20:51 | disposition home or self-care (01) ==
LOC: EC 18:07
DX: G43.909 Migraine, unspecified, not intractable, without status migrainosus (principal); Z87.891 Personal history of nicotine dependence; Z88.6 Allergy status to analgesic agent; Z88.8 Allergy status to other drugs, medicaments and biological substances
CPT/HCPCS: 99283; 96372 ×2; J1170

== ENCOUNTER 2024-06-22 21:06 | Emergency (ER) | payer MEDICARE, OTHER ==
--- NOTE | 2024-06-22 21:44 | ED ---
Headache HPI - General Chief Complaint: Headache Stated Complaint: Headache Time Seen by Provider: 06/22/24 21:38 Mode of arrival: ambulatory Limitations: no limitations - History of Present Illness Initial Comments: 68-year-old male with history of migraines presenting with chief complaint of headache. States that this feels consistent with his typical migraines. Primarily frontal and behind the eyes. Admits to nausea no vomiting. No vision or hearing changes. No numbness, tingling, weakness. No neck pain. No chest pain or difficulty breathing. No dizziness. No injury or trauma. - Related Data Home Medications Medication Instructions Recorded Confirmed tiZANidine [Zanaflex] 4 mg PO BID 02/26/18 03/17/24 oxyCODONE-APAP 10-325MG [Percocet 1 tab PO BID PRN 01/02/20 03/17/24 10-325 mg] Aspirin EC [Ecotrin Low Dose] 81 mg PO DAILY 04/23/23 03/17/24 Folic Acid 1 mg PO DAILY 04/23/23 03/17/24 Gabapentin [Neurontin] 400 mg PO TID 06/27/23 03/17/24 Morphine Sulfate ER [Ms Contin] 15 mg PO Q12HR 03/17/24 03/17/24 Previous Rx's Medication Instructions Recorded Nitroglycerin Sl Tabs [Nitrostat] 0.4 mg SUBLINGUAL Q5M PRN #30 tab 07/23/23 Isosorbide Mononitrate ER [Imdur] 30 mg PO DAILY #30 tab 12/28/23 Losartan [Cozaar] 50 mg PO DAILY #30 tab 12/28/23 Metoprolol Tartrate [Lopressor] 100 mg PO BID #60 tab 12/28/23 amLODIPine [Norvasc] 10 mg PO DAILY #30 tab 12/28/23 hydrALAZINE HCL [Apresoline] 100 mg PO TID #90 tab 12/28/23 methIMAzole [Tapazole] 5 mg PO BID #60 tab 12/28/23 SUMAtriptan succinate [Imitrex] 25 mg PO Q4H #5 tablet 01/01/24 Atorvastatin [Lipitor] 40 mg PO DAILY 30 Days #30 tablet 03/18/24 Metoclopramide HCl [Reglan] 10 mg PO BID 30 Days #60 tablet 03/18/24 polyethylene glycoL 3350 [Miralax] 17 gm PO DAILY 30 Days #30 packet 03/18/24 Furosemide [Lasix] 60 mg PO DAILY #5 tab 05/10/24 Allergies Allergy/AdvReac Type Severity Reaction Status Date / Time codeine Allergy Itching Verified 06/22/24 21:08 ibuprofen [From Motrin] Allergy Rash/Hives Verified 06/22/24 21:08 ketorolac tromethamine Allergy Rash/Hives Verified 06/22/24 21:08 [From Toradol] Review of Systems ROS Statement: Those systems with pertinent positive or pertinent negative responses have been documented in the HPI. ROS Other: All systems not noted in ROS Statement are negative. Past Medical History Past Medical History: Coronary Artery Disease (CAD), Chest Pain / Angina, Deep Vein Thrombosis (DVT), GERD/Reflux, Hyperlipidemia, Hypertension, Osteoarthritis (OA), Thyroid Disorder Additional Past Medical History / Comment(s): Occasional palpitations, gastritis, small hiatal hernia, diverticular dx, pt states years ago he had PUD, chronic low back pain, chronic pain syndrome, migraines, DVT L arm, numbness/tingling bilateral lower legs, bilateral past R hand fracture, arthritis multiple joints, hyperthyroid, sinus problems. History of Any Multi-Drug Resistant Organisms: None Reported Past Surgical History: Back Surgery, Cholecystectomy, Heart Catheterization With Stent, Orthopedic Surgery Additional Past Surgical History / Comment(s): EGDs/colonoscopies, multiple low back surgeries, bilateral arm and bilateral thigh surgeries for brown recluse spider bites with infection, morphine pain pump insertion and removal due to infection, PCI with stents, L rotator cuff repair, L knee arthroscopy, cervical fusion/cage, R cataract removal.left knee replacement 10/27/2023 Past Anesthesia/Blood Transfusion Reactions: No Reported Reaction Additional Past Anesthesia/Blood Transfusion Reaction / Comment(s): 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 states he was "down for 12 minutes" lower back surgery Date of Last Stent Placement:: 10/12/17 Past Psychological History: Anxiety Smoking Status: Former smoker Past Alcohol Use History: None Reported Past Drug Use History: None Reported - Past Family History Father Family Medical History: No Reported History Additional Family Medical History / Comment(s): Father had back problems. He lived to be 82 yrs old. Mother History Unknown: Yes Family Medical History: Hypertension, Myocardial Infarction ([place]) Additional Family Medical History / Comment(s): Mother of a [place] at the age of 55yrs. Brother(s) Family Medical History: Cancer, COPD Additional Family Medical History / Comment(s): Leukemia General Exam Limitations: no limitations General appearance: alert, in no apparent distress Head exam: Present: atraumatic, normocephalic Eye exam: Present: normal appearance, PERRL, EOMI Pupils: Present: normal accommodation Neck exam: Present: normal inspection. Absent: meningismus Respiratory exam: Absent: respiratory distress Cardiovascular Exam: Present: regular rate Neurological exam: Present: alert, oriented X3 Expanded Patient oriented to: Present: person, place, time Speech: Present: fluid speech Cranial nerves: EOM's Intact: Normal Eye Response: (4) open spontaneously Motor Response: (6) obeys commands Verbal Response: (5) oriented [place] Total: 15 Psychiatric exam: Present: normal affect, normal mood Skin exam: Present: normal color Course Vital Signs 06/22/24 06/22/24 21:07 23:10 Temperature 97.8 F 98.4 F Pulse Rate 100 76 Respiratory 18 17 Rate Blood Pressure 147/91 158/96 O2 Sat by Pulse 99 99 Oximetry Medical Decision Making - Medical Decision Making Was pt. sent in by a medical professional or institution (, PA, SUPERINTENDENT MENAGERIE, urgent care, hospital, or [place] [facility] facility...) When possible be specific @ -No Did you speak to anyone other than the patient for history (EMS, parent, family, police, friend...)? What history was obtained from this source @ -No Did you review nursing and triage notes (agree or disagree)? Why? @ -I reviewed and agree with nursing and triage notes Were old charts reviewed (outside hosp., previous admission, EMS record, old EKG, old radiological studies, urgent care reports/EKG's, [place] [facility] facility records)? Report findings @ -Previous visits for the same complaint reviewed Differential Diagnosis (chest pain, altered mental status, abdominal pain women, abdominal pain men, vaginal bleeding, weakness, fever, dyspnea, syncope, headache, dizziness, GI bleed, back pain, seizure, CVA, palpatations, mental health, musculoskeletal)? @ -[facility] Differential Headache: Migraine, tension, cluster, carbon monoxide, central venous thrombosis, pension karma temporal arteritis, acute closure glaucoma, intercranial hemorrhage, mastoiditis, sinusitis, head injury this is not meant to be an all-inclusive list. EKG interpreted by me (3pts min.). @ -As above X-rays interpreted by me (1pt min.). @ -None done CT interpreted by me (1pt min.). @ -None done U/S interpreted by me (1pt. min.). @ -None done What testing was considered but not performed or refused? (CT, X-rays, U/S, labs)? Why? @ -None What meds were considered but not given or refused? Why? @ -None Did you discuss the management of the patient with other professionals (professionals i.e. , PA, SUPERINTENDENT MENAGERIE, lab, RT, psych nurse, oncology social worker, child and family services worker, teacher, police liaison officer, caser up)? Give summary @ -No Was smoking cessation discussed for >3mins.? @ -No Was critical care preformed (if so, how long)? @ -No Were there social determinants of health that impacted care today? How? (Homelessness, low income, unemployed, alcoholism, drug addiction, transportation, low edu. Level, literacy, decrease access to med. care, senior living, rehab)? @ -No Was there de-escalation of care discussed even if they declined (Discuss DNR or withdrawal of care, Hospice)? DNR status @ -No What co-morbidities impacted this encounter? (DM, HTN, Smoking, COPD, CAD, Cancer, CVA, ARF, Chemo, Hep., AIDS, mental health diagnosis, sleep apnea, morbid obesity)? @ -None Was patient admitted / discharged? Hospital course, mention meds given and route, prescriptions, significant lab abnormalities, going to OR and other pertinent info. @ -68-year-old male history of migraines presenting with chief complaint of headache. Feels consistent with his regular migraines. He is provided with pain and nausea medication. He is requesting discharge home. Follow-up with PCP. Report back to ER with any new or worsening symptoms. Discussed return parameters and answered all questions. Patient conveyed verbal understanding and agreed to the plan. I discussed this case in detail with my attending Dr. Gordillo Undiagnosed new problem with uncertain prognosis? @ -No Drug Therapy requiring intensive monitoring for toxicity (Heparin, Nitro, Insulin, Cardizem)? @ -No Were any procedures done? @ -No Diagnosis/symptom? @ -Migraine headache Acute, or Chronic, or Acute on Chronic? @ -Acute Uncomplicated (without systemic symptoms) or Complicated (systemic symptoms)? @ -Uncomplicated Side effects of treatment? @ -No Exacerbation, Progression, or Severe Exacerbation? @ -No Poses a threat to life or bodily function? How? (Chest pain, [place], [place], pneumonia, PE, COPD, DKA, ARF, appy, cholecystitis, CVA, Diverticulitis, Homicidal, Suicidal, threat to staff... and all critical care pts) @ -unlikely Disposition Clinical Impression: Migraine headache Disposition: HOME SELF-CARE Condition: Good Instructions (If sedation given, give patient instructions): Migraine Headache (ED) Additional Instructions: Follow-up with PCP. Report back to ER with any new or worsening symptoms. Take Motrin and Tylenol as needed for pain control. Is patient prescribed a controlled substance at d/c from ED?: No Referrals: None,Stated [Primary Care Provider] - 1-2 days Time of Disposition: 22:49
[2024-06-22] MEDS: HYDROmorphone 1 MG/ML 1 ML SYRINGE IM STA (22:56)
[2024-06-22] MEDS: ONDANSETRON ODT 4 MG TAB PO STA (22:57)
[2024-06-22 23:12] VITALS: BP 158/96; PULSE 76; RESP 17; TEMP 98.4
== END 2024-06-22 23:10 | disposition home or self-care (01) ==
LOC: EC 21:06
DX: G43.909 Migraine, unspecified, not intractable, without status migrainosus (principal); Z87.891 Personal history of nicotine dependence; Z88.6 Allergy status to analgesic agent; Z88.8 Allergy status to other drugs, medicaments and biological substances
CPT/HCPCS: 99283; 96372; J1170

== ENCOUNTER 2024-06-28 18:45 | Emergency (ER) | payer MEDICARE, OTHER ==
[2024-06-28] MEDS ORDERED: HYDROmorphone 1 MG/ML 1 ML SYRINGE ONE (21:35)
[2024-06-28] MEDS ORDERED: diphenhydrAMINE 25 MG CAP ONE (21:37)
[2024-06-28] MEDS ORDERED: FUROSEMIDE 20 MG TAB ONE (21:38)
[2024-06-28] MEDS ORDERED: PROCHLORPERAZINE INJ 10 MG/2 ML VIAL ONE (23:00)
== END 2024-06-28 23:00 | disposition home or self-care (01) ==
LOC: EC 18:45
CPT/HCPCS: 96372; 99283

== ENCOUNTER → 2024-06-28 | Outpatient (CLI) | payer MEDICARE, OTHER ==
--- NOTE | 2024-07-20 13:39 | MR ---
Patient: Salomon Johnson K Ordering Physician: Unknown, Unknown ID: [id number] Phone, Pager: Phone: N/A Pager: N/A : [phone] Age/Gender: 68Y, M Primary Location: N/A Procedure: MR thoracic spine wo con Study Date: 06/28/2024 4:53:00 PM EXAMINATION TYPE: MR thoracic spine wo con DATE OF EXAM: 07/13/2024 6:55 AM CLINICAL INDICATION: Mid back COMPARISON: None TECHNIQUE: Multi planar, multi sequence imaging was performed utilizing: T1-weighted, short-tau inver roxy recovery and T2-weighted of the thoracic spine. IV Contrast: cc (none if empty) FINDINGS: Alignment: Alignment is within normal limits. Vertebral bodies have preserved heights. Spinal cord: Spinal cord is within normal limits for signal. Discs: Intervertebral disc signal is maintained. No evidence of significant spinal canal or neural fo raminal stenosis. There is no evidence of extradural defects or central spinal canal narrowing at any thoracic vertebral body level Osseous structures: Mild inversion recovery signal at the adjoining T7-T8 vertebral bodies with small indentations within the inferior endplate of T7 and superior endplate of T8 possibly representing Sc hmorl's nodes. No additional abnormal bony edema on inversion recovery sequences. Multilevel osteophy te formation and facet joint arthropathy. Scattered disc space narrowing. IMPRESSION: T7-T8 adjoining endplates and mild bony reactive edema possibly a underlying acute Schmorl's nodes. A ttention on short-term follow-up imaging. No evidence for significant spinal canal or neural foramina l stenosis.
== END | disposition home or self-care (01) ==
LOC: RADMRIMAIN 16:30
PROVIDERS: ATTEND Surgery
DX: M54.6 Pain in thoracic spine (principal); G89.4 Chronic pain syndrome; R60.0 Localized edema
CPT/HCPCS: 72146

== ENCOUNTER 2024-07-08 20:37 | Emergency (ER) | payer MEDICARE, OTHER ==
[2024-07-08] MEDS ORDERED: ONDANSETRON ODT 4 MG TAB ONE (21:55)
[2024-07-08] MEDS ORDERED: HYDROmorphone 1 MG/ML 1 ML SYRINGE ONE (21:55)
[2024-07-10] MEDS ORDERED: ONDANSETRON ODT 4 MG TAB ONE (20:36)
[2024-07-10] MEDS ORDERED: HYDROmorphone 1 MG/ML 1 ML SYRINGE ONE ×2 (20:36→22:29)
[2024-07-10] MEDS ORDERED: CYCLOBENZAPRINE 10 MG TAB ONE (20:59)
== END 2024-07-08 22:15 | disposition home or self-care (01) ==
LOC: EC 20:37
DX: G43.909 Migraine, unspecified, not intractable, without status migrainosus (principal)
CPT/HCPCS: 99283

== ENCOUNTER 2024-07-09 16:10 | Emergency (ER) | payer MEDICARE, OTHER | END 2024-07-09 17:10 | disposition left against medical advice (07) | LOC: EC 16:10 | DX: I10 Essential (primary) hypertension (principal) | CPT/HCPCS: 99283 ==

== ENCOUNTER 2024-07-10 19:12 | Emergency (ER) | payer MEDICARE, OTHER | END 2024-07-10 22:43 | disposition home or self-care (01) | LOC: EC 19:12 | DX: G43.909 Migraine, unspecified, not intractable, without status migrainosus (principal) | CPT/HCPCS: 96372; 99283 ==

== ENCOUNTER 2024-08-10 01:13 | Emergency (ER) | payer MEDICARE, OTHER ==
[2024-08-10 01:19] VITALS: RESP 18
[2024-08-10] MEDS: HYDROmorphone 1 MG/ML 1 ML SYRINGE IM STA (01:53)
[2024-08-10] MEDS: ONDANSETRON ODT 4 MG TAB PO STA (01:53)
--- NOTE | 2024-08-10 02:02 | ED ---
Headache HPI - General Chief Complaint: Headache Stated Complaint: Migraine Time Seen by Provider: 08/10/24 01:59 Source: patient, RN notes reviewed Mode of arrival: ambulatory Limitations: no limitations - History of Present Illness Initial Comments: 68-year-old male presented the ER with a chief complaint of a migraine. Patient states he has a history of chronic migraines. Reports for the past 4 days he has been experiencing a 10 out of 10 achy/pressure pain that wraps around his head and down his neck. He states this is a typical description of his migraines. He does report mild visual floaters, photophobia and nausea which is common for him during migraines. He has tried taking [id number] Excedrin and Aleve without relief. Patient denies any fevers, chills, cough congestion chest pain or shortness of breath. He denies any injuries or traumas. - Related Data Home Medications Medication Instructions Recorded Confirmed tiZANidine [Zanaflex] 4 mg PO BID 02/26/18 03/17/24 oxyCODONE-APAP 10-325MG [Percocet 1 tab PO BID PRN 01/02/20 03/17/24 10-325 mg] Aspirin EC [Ecotrin Low Dose] 81 mg PO DAILY 04/23/23 03/17/24 Folic Acid 1 mg PO DAILY 04/23/23 03/17/24 Gabapentin [Neurontin] 400 mg PO TID 06/27/23 03/17/24 Morphine Sulfate ER [Ms Contin] 15 mg PO Q12HR 03/17/24 03/17/24 Previous Rx's Medication Instructions Recorded Nitroglycerin Sl Tabs [Nitrostat] 0.4 mg SUBLINGUAL Q5M PRN #30 tab 07/23/23 Isosorbide Mononitrate ER [Imdur] 30 mg PO DAILY #30 tab 12/28/23 Losartan [Cozaar] 50 mg PO DAILY #30 tab 12/28/23 Metoprolol Tartrate [Lopressor] 100 mg PO BID #60 tab 12/28/23 amLODIPine [Norvasc] 10 mg PO DAILY #30 tab 12/28/23 hydrALAZINE HCL [Apresoline] 100 mg PO TID #90 tab 12/28/23 methIMAzole [Tapazole] 5 mg PO BID #60 tab 02/05/24 SUMAtriptan succinate [Imitrex] 25 mg PO Q4H #5 tablet 01/01/24 Atorvastatin [Lipitor] 40 mg PO DAILY 30 Days #30 tablet 03/18/24 Metoclopramide HCl [Reglan] 10 mg PO BID 30 Days #60 tablet 03/18/24 polyethylene glycoL 3350 [Miralax] 17 gm PO DAILY 30 Days #30 packet 03/18/24 Furosemide [Lasix] 60 mg PO DAILY #5 tab 05/10/24 Allergies Allergy/AdvReac Type Severity Reaction Status Date / Time codeine Allergy Itching Verified 08/10/24 21:27 ibuprofen [From Motrin] Allergy Rash/Hives Verified 08/10/24 21:27 ketorolac tromethamine Allergy Rash/Hives Verified 08/10/24 21:27 [From Toradol] Review of Systems ROS Statement: Those systems with pertinent positive or pertinent negative responses have been documented in the HPI. ROS Other: All systems not noted in ROS Statement are negative. Past Medical History Past Medical History: Coronary Artery Disease (CAD), Chest Pain / Angina, Deep Vein Thrombosis (DVT), GERD/Reflux, Hyperlipidemia, Hypertension, Osteoarthritis (OA), Thyroid Disorder Additional Past Medical History / Comment(s): Occasional palpitations, gastritis, small hiatal hernia, diverticular dx, pt states years ago he had PUD, chronic low back pain, chronic pain syndrome, migraines, DVT L arm, numbness/tingling bilateral lower legs, bilateral past R hand fracture, arthr itis multiple joints, hyperthyroid, sinus problems. History of Any Multi-Drug Resistant Organisms: None Reported Past Surgical History: Back Surgery, Cholecystectomy, Heart Catheterization With Stent, Orthopedic Surgery Additional Past Surgical History / Comment(s): EGDs/colonoscopies, multiple low back surgeries, bilateral arm and bilateral thigh surgeries for brown recluse spider bites with infection, morphine pain pump insertion and removal due to infection, PCI with stents, L rotator cuff repair, L knee arthroscopy, cervical fusion/cage, R cataract removal.left knee replacement 10/27/2023 Past Anesthesia/Blood Transfusion Reactions: No Reported Reaction Additional Past Anesthesia/Blood Transfusion Reaction / Comment(s): 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 states he was "down for 12 minutes" lower back surgery Date of Last Stent Placement:: 10/12/17 Past Psychological History: Anxiety Smoking Status: Former smoker Past Alcohol Use History: None Reported Past Drug Use History: None Reported - Past Family History Father Family Medical History: No Reported History Additional Family Medical History / Comment(s): Father had back problems. He lived to be 82 yrs old. Mother History Unknown: Yes Family Medical History: Hypertension, Myocardial Infarction ([place]) Additional Family Medical History / Comment(s): Mother of a [place] at the age of 55yrs. Brother(s) Family Medical History: Cancer, COPD Additional Family Medical History / Comment(s): Leukemia General Exam Limitations: no limitations General appearance: alert, in no apparent distress Head exam: Present: atraumatic, normocephalic, normal inspection Eye exam: Present: normal appearance, PERRL, EOMI. Absent: scleral icterus, conjunctival injection, periorbital swelling Pupils: Present: normal accommodation ENT exam: Present: normal exam, normal oropharynx, mucous membranes moist, TM's normal bilaterally Neck exam: Present: normal inspection. Absent: tenderness, meningismus, lymphadenopathy Respiratory exam: Present: normal lung sounds bilaterally. Absent: respiratory distress, wheezes, rales, rhonchi, stridor Cardiovascular Exam: Present: regular rate, normal rhythm, normal heart sounds. Absent: systolic murmur, diastolic murmur, rubs, gallop, clicks Neurological exam: Present: alert, oriented X3, CN II-XII intact Skin exam: Present: warm, dry, intact, normal color. Absent: rash Course Vital Signs 08/10/24 08/10/24 01:16 02:47 Temperature 97.6 F 98.4 F Pulse Rate 113 H 85 Respiratory 18 18 Rate Blood Pressure 165/99 148/82 O2 Sat by Pulse 96 97 Oximetry Medical Decision Making - Medical Decision Making Was pt. sent in by a medical professional or institution (, PA, RIVET TESTER, urgent care, hospital, or custodial...) When possible be specific @ -No Did you speak to anyone other than the patient for history (EMS, parent, family, police, friend...)? What history was obtained from this source @ -No Did you review nursing and triage notes (agree or disagree)? Why? @ -I reviewed and agree with nursing and triage notes Were old charts reviewed (outside hosp., previous admission, EMS record, old EKG, old radiological studies, urgent care reports/EKG's, custodial records)? Report findings @ -No old charts were reviewed Differential Diagnosis (chest pain, altered mental status, abdominal pain women, abdominal pain men, vaginal bleeding, weakness, fever, dyspnea, syncope, headache, dizziness, GI bleed, back pain, seizure, CVA, palpatations, mental health, musculoskeletal)? @ -Differential Headache:Migraine, tension, cluster, carbon monoxide, central venous thrombosis, pension karma temporal arteritis, acute closure glaucoma, intercranial hemorrhage, mastoiditis, sinusitis, head injury, this is not meant to be an all-inclusive list. EKG interpreted by me (3pts min.). @ -None done X-rays interpreted by me (1pt min.). @ -None done CT interpreted by me (1pt min.). @ -None done U/S interpreted by me (1pt. min.). @ -None done What testing was considered but not performed or refused? (CT, X-rays, U/S, labs)? Why? @ -Imaging considered but not performed as patient reports this pain feels similar to prior migraines. Patient is agreeable with this. What meds were considered but not given or refused? Why? @ -None Did you discuss the management of the patient with other professionals (professionals i.e. , PA, RIVET TESTER, lab, RT, psych nurse, 7th grade social studies teacher, document examiner, teacher, conservation science officer, field case manager)? Give summary @ -No Was smoking cessation discussed for >3mins.? @ -No Was critical care preformed (if so, how long)? @ -No Were there social determinants of health that impacted care today? How? (Homelessness, low income, unemployed, alcoholism, drug addiction, transportation, low edu. Level, literacy, decrease access to med. care, nursing home, rehab)? @ -No Was there de-escalation of care discussed even if they declined (Discuss DNR or withdrawal of care, Hospice)? DNR status @ -No What co-morbidities impacted this encounter? (DM, HTN, Smoking, COPD, CAD, Cancer, CVA, ARF, Chemo, Hep., AIDS, mental health diagnosis, sleep apnea, morbid obesity)? @ -Migraines Was patient admitted / discharged? Hospital course, mention meds given and route, prescriptions, significant lab abnormalities, going to OR and other pertinent info. @ -Discharge. 68-year-old male presented to the ER with a chief complaint of a headache. History and physical exam completed. Vitals within normal limits. Patient in no signs of acute distress and nontoxic-appearing. No acute neurologic findings on exam. Symptomatic control in the ER. Patient reporting improvement upon reevaluation. Patient stable for discharge. Return parameters discussed. I advised close follow-up with PCP and pain management for further treatment. Patient discharged in stable condition. He verbally expressed understanding and agreed with care plan. Case discussed with ED attending, . Undiagnosed new problem with uncertain prognosis? @ -No Drug Therapy requiring intensive monitoring for toxicity (Heparin, Nitro, Insulin, Cardizem)? @ -No Were any procedures done? @ -No Diagnosis/symptom? @ -Migraine Acute, or Chronic, or Acute on Chronic? @ -Acute Uncomplicated (without systemic symptoms) or Complicated (systemic symptoms)? @ -Uncomplicated Side effects of treatment? @ -No Exacerbation, Progression, or Severe Exacerbation? @ -No Poses a threat to life or bodily function? How? (Chest pain, [place], [place], pneumonia, PE, COPD, DKA, ARF, appy, cholecystitis, CVA, Diverticulitis, Homicidal, [place] icidal, threat to staff... and all critical care pts) @ -No Disposition Clinical Impression: Migraine Disposition: HOME SELF-CARE Condition: Stable Instructions (If sedation given, give patient instructions): Acute Headache (ED) Additional Instructions: Follow-up with PCP and pain management for further evaluation of migraines. Return to the ER for any new or worsening symptoms. Is patient prescribed a controlled substance at d/c from ED?: No Referrals: None,Stated [Primary Care Provider] - 1-2 days Forms: Area PCPs Time of Disposition: 02:44
[2024-08-10 02:48] VITALS: BP 148/82; PULSE 85; TEMP 98.4
== END 2024-08-10 02:47 | disposition home or self-care (01) ==
LOC: EC 01:13
CPT/HCPCS: 96372; 99283

== ENCOUNTER 2024-08-10 21:23 | Emergency (ER) | payer MEDICARE, OTHER ==
--- NOTE | 2024-08-10 21:30 | ED ---
Headache HPI - General Chief Complaint: Headache Stated Complaint: vomiting Time Seen by Provider: 08/10/24 21:29 Source: RN notes reviewed, old records reviewed Mode of arrival: ambulatory Limitations: no limitations - History of Present Illness Initial Comments: This is a 68-year-old male to the ER for evaluation of acute on chronic headache migraine headache. Patient here for headache relief no new trauma no fevers MD Complaint: headache - Related Data Home Medications Medication Instructions Recorded Confirmed tiZANidine [Zanaflex] 4 mg PO BID 02/26/18 03/17/24 oxyCODONE-APAP 10-325MG [Percocet 1 tab PO BID PRN 01/02/20 03/17/24 10-325 mg] Aspirin EC [Ecotrin Low Dose] 81 mg PO DAILY 04/23/23 03/17/24 Folic Acid 1 mg PO DAILY 04/23/23 03/17/24 Gabapentin [Neurontin] 400 mg PO TID 06/27/23 03/17/24 Morphine Sulfate ER [Ms Contin] 15 mg PO Q12HR 03/17/24 03/17/24 Previous Rx's Medication Instructions Recorded Nitroglycerin Sl Tabs [Nitrostat] 0.4 mg SUBLINGUAL Q5M PRN #30 tab 07/23/23 Isosorbide Mononitrate ER [Imdur] 30 mg PO DAILY #30 tab 12/28/23 Losartan [Cozaar] 50 mg PO DAILY #30 tab 12/28/23 Metoprolol Tartrate [Lopressor] 100 mg PO BID #60 tab 12/28/23 amLODIPine [Norvasc] 10 mg PO DAILY #30 tab 12/28/23 hydrALAZINE HCL [Apresoline] 100 mg PO TID #90 tab 12/28/23 methIMAzole [Tapazole] 5 mg PO BID #60 tab 12/28/23 SUMAtriptan succinate [Imitrex] 25 mg PO Q4H #5 tablet 01/01/24 Atorvastatin [Lipitor] 40 mg PO DAILY 30 Days #30 tablet 03/18/24 Metoclopramide HCl [Reglan] 10 mg PO BID 30 Days #60 tablet 03/18/24 polyethylene glycoL 3350 [Miralax] 17 gm PO DAILY 30 Days #30 packet 03/18/24 Furosemide [Lasix] 60 mg PO DAILY #5 tab 05/10/24 Allergies Allergy/AdvReac Type Severity Reaction Status Date / Time codeine Allergy Itching Verified 08/10/24 21:27 ibuprofen [From Motrin] Allergy Rash/Hives Verified 08/10/24 21:27 ketorolac tromethamine Allergy Rash/Hives Verified 08/10/24 21:27 [From Toradol] Review of Systems ROS Statement: Those systems with pertinent positive or pertinent negative responses have been documented in the HPI. ROS Other: All systems not noted in ROS Statement are negative. Past Medical History Past Medical History: Coronary Artery Disease (CAD), Chest Pain / Angina, Deep Vein Thrombosis (DVT), GERD/Reflux, Hyperlipidemia, Hypertension, Osteoarthritis (OA), Thyroid Disorder Additional Past Medical History / Comment(s): Occasional palpitations, gastritis, small hiatal hernia, diverticular dx, pt states years ago he had PUD, chronic low back pain, chronic pain syndrome, migraines, DVT L arm, numbness/tingling bilateral lower legs, bilateral past R hand fracture, arthr itis multiple joints, hyperthyroid, sinus problems. History of Any Multi-Drug Resistant Organisms: None Reported Past Surgical History: Back Surgery, Cholecystectomy, Heart Catheterization With Stent, Orthopedic Surgery Additional Past Surgical History / Comment(s): EGDs/colonoscopies, multiple low back surgeries, bilateral arm and bilateral thigh surgeries for brown recluse spider bites with infection, morphine pain pump insertion and removal due to infection, PCI with stents, L rotator cuff repair, L knee arthroscopy, cervical fusion/cage, R cataract removal.left knee replacement 10/27/2023 Past Anesthesia/Blood Transfusion Reactions: No Reported Reaction Additional Past Anesthesia/Blood Transfusion Reaction / Comment(s): 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 states he was "down for 12 minutes" lower back surgery Date of Last Stent Placement:: 10/12/17 Past Psychological History: Anxiety Smoking Status: Former smoker Past Alcohol Use History: None Reported Past Drug Use History: None Reported - Past Family History Father Family Medical History: No Reported History Additional Family Medical History / Comment(s): Father had back problems. He lived to be 82 yrs old. Mother History Unknown: Yes Family Medical History: Hypertension, Myocardial Infarction ([place]) Additional Family Medical History / Comment(s): Mother of a [place] at the age of 55yrs. Brother(s) Family Medical History: Cancer, COPD Additional Family Medical History / Comment(s): Leukemia General Exam Limitations: no limitations General appearance: alert, in no apparent distress Head exam: Present: atraumatic, normocephalic, normal inspection Eye exam: Present: normal appearance, PERRL, EOMI. Absent: scleral icterus, conjunctival injection, periorbital swelling ENT exam: Present: normal exam, mucous membranes moist Neck exam: Present: normal inspection. Absent: tenderness, meningismus, lymphadenopathy Respiratory exam: Present: normal lung sounds bilaterally. Absent: respiratory distress, wheezes, rales, rhonchi, stridor Cardiovascular Exam: Present: regular rate, normal rhythm, normal heart sounds. Absent: systolic murmur, diastolic murmur, rubs, gallop, clicks GI/Abdominal exam: Present: soft, normal bowel sounds. Absent: distended, tenderness, guarding, rebound, rigid Extremities exam: Present: normal inspection, full ROM, normal capillary refill. Absent: tenderness, pedal edema, joint swelling, calf tenderness Back exam: Present: normal inspection Neurological exam: Present: alert, oriented X3, CN II-XII intact Psychiatric exam: Present: normal affect, normal mood Skin exam: Present: warm, dry, intact, normal color. Absent: rash Course Vital Signs 08/10/24 08/10/24 21:26 22:34 Temperature 97.2 F L 97.9 F Pulse Rate 111 H 106 H Respiratory 24 18 Rate Blood Pressure 208/111 172/115 O2 Sat by Pulse 98 98 Oximetry - Reevaluation(s) Reevaluation #1: Record is reviewed Reevaluation #2: Patient's symptoms resolved Reevaluation #3: Patient informed of results questions answered Reevaluation #4: Was pt. sent in by a medical professional or institution (, PA, INDUSTRIAL SALES MANAGER, urgent care, hospital, or prison...) When possible be specific @ -no Did you speak to anyone other than the patient for history (EMS, parent, family, police, friend...)? What history was obtained from this source @ -no Did you review nursing and triage notes (agree or disagree)? Why? @ -agree Are old charts reviewed (outside hosp., previous admission, EMS record, old EKG, old radiological studies, urgent care reports/EKG's, prison records)? Report findings @ -yes Differential Diagnosis (chest pain, altered mental status, abdominal pain women, abdominal pain men, vaginal bleeding, weakness, fever, dyspnea, syncope, headache, dizziness, GI bleed, back pain, seizure, CVA, palpatations, mental health, musculoskeletal)? @ -prior EKG interpreted by me (3pts min.). @ -no X-rays interpreted by me (1pt min.). @ -no CT interpreted by me (1pt min.). @ -no U/S interpreted by me (1pt. min.). @ -no What testing was considered but not performed or refused? (CT, X-rays, U/S, labs)? Why? @ -none What meds were considered but not given or refused? Why? @ -none Did you discuss the management of the patient with other professionals (professionals i.e. , PA, INDUSTRIAL SALES MANAGER, lab, RT, psych nurse, social work program coordinator, scientologist, teacher, resident medical officer, senior case manager)? Give summary @ -no Was smoking cessation discussed for >3mins.? @ -no Was critical care preformed (if so, how long)? @ -no Were there social determinants of health that impacted care today? How? (Homelessness, low income, unemployed, alcoholism, drug addiction, transportation, low edu. Level, literacy, decrease access to med. care, nursing home, rehab)? @ -none Was there de-escalation of care discussed even if they declined (Discuss DNR or withdrawal of care, Hospice)? DNR status @ -no What co-morbidities impacted this encounter? (DM, HTN, Smoking, COPD, CAD, Cancer, CVA, ARF, Chemo, Hep., AIDS, mental health diagnosis, sleep apnea, morbid obesity)? @ -none Was patient admitted / discharged? Hospital course, mention meds given and route, prescriptions, significant lab abnormalities, going to OR and other pertinent info. @ - 68 male to ER with be discharged home after acute on chronic headache is improved Discharged migraine headache Undiagnosed new problem with uncertain prognosis? @ -no Drug Therapy requiring intensive monitoring for toxicity (Heparin, Nitro, Insulin, Cardizem)? @ -no Were any procedures done? @ -no Diagnosis/symptom? @ - Acute, or Chronic, or Acute on Chronic? @ -Acute Uncomplicated (without systemic symptoms) or Complicated (systemic symptoms)? @ -Complicated Side effects of treatment? @ -no Exacerbation, Progression, or Severe Exacerbation? @ -exacerbation Poses a threat to life or bodily function? How? (Chest pain, [place], [place], pneumonia, PE, COPD, DKA, ARF, appy, cholecystitis, CVA, Diverticulitis, Homicidal, Suicidal, threat to staff... and all critical care pts) @ -no Reevaluation #5: Differential Headache: Migraine, tension, cluster, carbon monoxide, central venous thrombosis, pension karma temporal arteritis, acute closure glaucoma, intercranial hemorrhage, mastoiditis, sinusitis, head injury, this is not meant to be an all-inclusive list. Medical Decision Making - Medical Decision Making 68 male to ER with be discharged home after acute on chronic headache is improved Disposition Clinical Impression: Intractable headache, Headache Disposition: HOME SELF-CARE Condition: Fair Instructions (If sedation given, give patient instructions): Acute Headache (ED) Is patient prescribed a controlled substance at d/c from ED?: No Referrals: None,Stated [Primary Care Provider] - 1-2 days Time of Disposition: 21:50
[2024-08-10] MEDS: diphenhydrAMINE 50 MG CAP PO STA (22:01)
[2024-08-10] MEDS: PROCHLORPERAZINE 10 MG TAB PO STA (22:26)
[2024-08-10] MEDS: HYDROmorphone 1 MG/ML 1 ML SYRINGE IM STA (22:26)
[2024-08-10] MEDS: cloNIDine 0.3 MG/24HR PATCH TRANSDERM SCH (22:28)
[2024-08-10 22:35] VITALS: BP 172/115; PULSE 106; RESP 18; TEMP 97.9
== END 2024-08-10 22:38 | disposition home or self-care (01) ==
LOC: EC 21:23
CPT/HCPCS: 96372; 99283; 99284

== ENCOUNTER 2024-08-12 22:45 | Emergency (ER) | payer MEDICARE, OTHER ==
[2024-08-12 22:58] VITALS: BP 133/75; PULSE 111; RESP 16; TEMP 97.7
== END 2024-08-12 23:37 | disposition left against medical advice (07) ==
LOC: EC 22:45
DX: Z53.21 Procedure and treatment not carried out due to patient leaving prior to being seen by health care provider (principal)
CPT/HCPCS: 99499

== ENCOUNTER 2024-09-05 10:11 | Emergency (ER) | payer MEDICARE, OTHER ==
[2024-09-05 10:35] VITALS: BP 165/95; PULSE 114; TEMP 97.8
[2024-09-05] MEDS: HYDROmorphone 1 MG/ML 1 ML SYRINGE IM STA (10:54)
--- NOTE | 2024-09-05 10:58 | ED ---
General Adult HPI - General Chief complaint: Headache Stated complaint: migraines Time Seen by Provider: 09/05/24 10:17 Source: patient, RN notes reviewed, old records reviewed Mode of arrival: ambulatory Limitations: no limitations - History of Present Illness Initial comments: 68-year-old male presenting with frontal headache which been present for the past 3 days. This was gradual in onset. Associated with mild nausea, no vomiting, no fever, no focal numbness or weakness. Patient does have headache history this is similar to previous headaches. - Related Data Home Medications Medication Instructions Recorded Confirmed tiZANidine [Zanaflex] 4 mg PO BID 02/26/18 03/17/24 oxyCODONE-APAP 10-325MG [Percocet 1 tab PO BID PRN 01/02/20 03/17/24 10-325 mg] Aspirin EC [Ecotrin Low Dose] 81 mg PO DAILY 04/23/23 03/17/24 Folic Acid 1 mg PO DAILY 04/23/23 03/17/24 Gabapentin [Neurontin] 400 mg PO TID 06/27/23 03/17/24 Morphine Sulfate ER [Ms Contin] 15 mg PO Q12HR 03/17/24 03/17/24 Previous Rx's Medication Instructions Recorded Nitroglycerin Sl Tabs [Nitrostat] 0.4 mg SUBLINGUAL Q5M PRN #30 tab 07/23/23 Isosorbide Mononitrate ER [Imdur] 30 mg PO DAILY #30 tab 12/28/23 Losartan [Cozaar] 50 mg PO DAILY #30 tab 12/28/23 Metoprolol Tartrate [Lopressor] 100 mg PO BID #60 tab 12/28/23 amLODIPine [Norvasc] 10 mg PO DAILY #30 tab 12/28/23 hydrALAZINE HCL [Apresoline] 100 mg PO TID #90 tab 12/28/23 methIMAzole [Tapazole] 5 mg PO BID #60 tab 12/28/23 SUMAtriptan succinate [Imitrex] 25 mg PO Q4H #5 tablet 01/01/24 Atorvastatin [Lipitor] 40 mg PO DAILY 30 Days #30 tablet 03/18/24 Metoclopramide HCl [Reglan] 10 mg PO BID 30 Days #60 tablet 03/18/24 polyethylene glycoL 3350 [Miralax] 17 gm PO DAILY 30 Days #30 packet 03/18/24 Furosemide [Lasix] 60 mg PO DAILY #5 tab 05/10/24 Allergies Allergy/AdvReac Type Severity Reaction Status Date / Time codeine Allergy Itching Verified 09/05/24 10:35 ibuprofen [From Motrin] Allergy Rash/Hives Verified 09/05/24 10:35 ketorolac tromethamine Allergy Rash/Hives Verified 09/05/24 10:35 [From Toradol] Review of Systems ROS Statement: Those systems with pertinent positive or pertinent negative responses have been documented in the HPI. ROS Other: All systems not noted in ROS Statement are negative. Past Medical History Past Medical History: Coronary Artery Disease (CAD), Chest Pain / Angina, Deep Vein Thrombosis (DVT), GERD/Reflux, Hyperlipidemia, Hypertension, Osteoarthritis (OA), Thyroid Disorder Additional Past Medical History / Comment(s): Occasional palpitations, gastritis, small hiatal hernia, diverticular dx, pt states years ago he had PUD, chronic low back pain, chronic pain syndrome, migraines, DVT L arm, numbness/tingling bilateral lower legs, bilateral past R hand fracture, arthritis multiple joints, hyperthyroid, sinus problems. History of Any Multi-Drug Resistant Organisms: None Reported Past Surgical History: Back Surgery, Cholecystectomy, Heart Catheterization With Stent, Orthopedic Surgery Additional Past Surgical History / Comment(s): EGDs/colonoscopies, multiple low back surgeries, bilateral arm and bilateral thigh surgeries for brown recluse spider bites with infection, morphine pain pump insertion and removal due to infection, PCI with stents, L rotator cuff repair, L knee arthroscopy, cervical fusion/cage, R cataract removal.left knee replacement 10/27/2023 Past Anesthesia/Blood Transfusion Reactions: No Reported Reaction Additional Past Anesthesia/Blood Transfusion Reaction / Comment(s): 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 states he was "down for 12 minutes" lower back surgery Date of Last Stent Placement:: 10/12/17 Past Psychological History: Anxiety Smoking Status: Former smoker Past Alcohol Use History: None Reported Past Drug Use History: None Reported - Past Family History Father Family Medical History: No Reported History Additional Family Medical History / Comment(s): Father had back problems. He lived to be 82 yrs old. Mother History Unknown: Yes Family Medical History: Hypertension, Myocardial Infarction (MD) Additional Family Medical History / Comment(s): Mother of a MD at the age of 55yrs. Brother(s) Family Medical History: Cancer, COPD Additional Family Medical History / Comment(s): Leukemia General Exam Limitations: no limitations General appearance: alert, in no apparent distress Head exam: Present: atraumatic, normocephalic Eye exam: Present: normal appearance, PERRL ENT exam: Present: normal exam Neck exam: Present: normal inspection. Absent: tenderness, meningismus Respiratory exam: Present: normal lung sounds bilaterally. Absent: respiratory distress, wheezes Cardiovascular Exam: Present: normal rhythm, tachycardia GI/Abdominal exam: Present: soft. Absent: distended, tenderness, rebound Extremities exam: Present: normal inspection, normal capillary refill Neurological exam: Present: alert, oriented X3, CN II-XII intact, other (Ataxia). Absent: normal gait, motor sensory deficit Psychiatric exam: Present: normal affect, normal mood Skin exam: Present: warm, dry, intact. Absent: cyanosis, diaphoretic Course Vital Signs 09/05/24 10:31 Temperature 97.8 F Pulse Rate 114 H Respiratory 18 Rate Blood Pressure 165/95 O2 Sat by Pulse 98 Oximetry Medical Decision Making - Medical Decision Making Was pt. sent in by a medical professional or institution (, PA, DRY CELL ASSEMBLY MACHINE TENDER, urgent care, hospital, or residential...) When possible be specific @ -No Did you speak to anyone other than the patient for history (EMS, parent, family, police, friend...)? What history was obtained from this source @ -No Did you review nursing and triage notes (agree or disagree)? Why? @ -I reviewed and agree with nursing and triage notes Were old charts reviewed (outside hosp., previous admission, EMS record, old EKG, old radiological studies, urgent care reports/EKG's, residential records)? Report findings @ -No old charts were reviewed Differential Headache: Migraine, tension, cluster, carbon monoxide, central venous thrombosis, pension karma temporal arteritis, acute closure glaucoma, intercranial hemorrhage, mastoiditis, sinusitis, head injury, this is not meant to be an all-inclusive list. EKG interpreted by me (3pts min.). @ -As above X-rays interpreted by me (1pt min.). @ -None done CT interpreted by me (1pt min.). @ -None done U/S interpreted by me (1pt. min.). @ -None done What testing was considered but not performed or refused? (CT, X-rays, U/S, labs)? Why? @ -None What meds were considered but not given or refused? Why? @ -None Did you discuss the management of the patient with other professionals (professionals i.e. Dr., PA, DRY CELL ASSEMBLY MACHINE TENDER, lab, RT, psych nurse, social media analyst, therapy assistant, teacher, finance officer, block and case maker)? Give summary @ -No Was smoking cessation discussed for >3mins.? @ -No Was critical care preformed (if so, how long)? @ -No Were there social determinants of health that impacted care today? How? (Homelessness, low income, unemployed, alcoholism, drug addiction, transportation, low edu. Level, literacy, decrease access to med. care, [facility], rehab)? @ -No Was there de-escalation of care discussed even if they declined (Discuss DNR or withdrawal of care, Hospice)? DNR status @ -No What co-morbidities impacted this encounter? (DM, HTN, Smoking, COPD, CAD, Cancer, CVA, ARF, Chemo, Hep., AIDS, mental health diagnosis, sleep apnea, morbid obesity)? @ -None Was patient admitted / discharged? Hospital course, mention meds given and route, prescriptions, significant lab abnormalities, going to OR and other pertinent info. @ -68-year-old male with headache history presenting with 3 days of headache typical. No alarming features. Patient well-appearing. Given pain medication and nausea medication in the emergency department. Stable for discharge. Undiagnosed new problem with uncertain prognosis? @ -No Drug Therapy requiring intensive monitoring for toxicity (Heparin, Nitro, Insulin, Cardizem)? @ -No Were any procedures done? @ -No Diagnosis/symptom? @ -[Headache Acute, or Chronic, or Acute on Chronic? @Acute on chronic Uncomplicated (without systemic symptoms) or Complicated (systemic symptoms)? @ -Default Side effects of treatment? @ -No Exacerbation, Progression, or Severe Exacerbation? @ -No Poses a threat to life or bodily function? How? (Chest pain, USA, MD, pneumonia, PE, COPD, DKA, ARF, appy, cholecystitis, CVA, Diverticulitis, Homicidal, Suicidal, threat to staff... and all critical care pts) @ -No Disposition Clinical Impression: Headache Disposition: HOME SELF-CARE Condition: Fair Instructions (If sedation given, give patient instructions): Acute Headache (ED) Is patient prescribed a controlled substance at d/c from ED?: No Referrals: None,Stated [Primary Care Provider] - 1-2 days Nelson Almonte MD [STAFF PHYSICIAN] - 1-2 days Time of Disposition: 10:58
[2024-09-05] MEDS: ONDANSETRON ODT 4 MG TAB PO STA (11:19)
[2024-09-05 11:23] VITALS: RESP 16
== END 2024-09-05 11:33 | disposition home or self-care (01) ==
LOC: EC 10:11
CPT/HCPCS: 96372; 99283

== ENCOUNTER 2024-11-25 08:56 | Emergency (ER) | payer MEDICARE, OTHER ==
[2024-11-25 09:04] VITALS: TEMP 97.6
--- NOTE | 2024-11-25 09:28 | ED ---
Headache HPI - General Chief Complaint: Headache Stated Complaint: Migraine, arm pain Time Seen by Provider: 11/25/24 09:08 Source: patient, RN notes reviewed Mode of arrival: ambulatory Limitations: no limitations - History of Present Illness Initial Comments: This is a 69-year-old male who presents to the emergency department for a headache and arm pain. Patient is well-known to this emergency department for recurrent visits, particularly related to headaches. States that he feels like he is having another one of his typical migraines. Additionally, his arms have both been sore for the last 2 days. Denies any injuries. Reports a history of blood clots and wants to make sure he does not have another one of these in his arms. Denies any chest pain or shortness of breath. MD Complaint: headache - Related Data Home Medications Medication Instructions Recorded Confirmed tiZANidine [Zanaflex] 4 mg PO BID 02/26/18 03/17/24 oxyCODONE-APAP 10-325MG [Percocet 1 tab PO BID PRN 01/02/20 03/17/24 10-325 mg] Aspirin EC [Ecotrin Low Dose] 81 mg PO DAILY 04/23/23 03/17/24 Folic Acid 1 mg PO DAILY 04/23/23 03/17/24 Gabapentin [Neurontin] 400 mg PO TID 06/27/23 03/17/24 Morphine Sulfate ER [Ms Contin] 15 mg PO Q12HR 03/17/24 03/17/24 Previous Rx's Medication Instructions Recorded Nitroglycerin Sl Tabs [Nitrostat] 0.4 mg SUBLINGUAL Q5M PRN #30 tab 07/23/23 Isosorbide Mononitrate ER [Imdur] 30 mg PO DAILY #30 tab 12/28/23 Losartan [Cozaar] 50 mg PO DAILY #30 tab 12/28/23 Metoprolol Tartrate [Lopressor] 100 mg PO BID #60 tab 12/28/23 amLODIPine [Norvasc] 10 mg PO DAILY #30 tab 12/28/23 hydrALAZINE HCL [Apresoline] 100 mg PO TID #90 tab 12/28/23 methIMAzole [Tapazole] 5 mg PO BID #60 tab 12/28/23 SUMAtriptan succinate [Imitrex] 25 mg PO Q4H #5 tablet 01/01/24 Atorvastatin [Lipitor] 40 mg PO DAILY 30 Days #30 tablet 03/18/24 Metoclopramide HCl [Reglan] 10 mg PO BID 30 Days #60 tablet 03/18/24 polyethylene glycoL 3350 [Miralax] 17 gm PO DAILY 30 Days #30 packet 03/18/24 Furosemide [Lasix] 60 mg PO DAILY #5 tab 05/10/24 Allergies Allergy/AdvReac Type Severity Reaction Status Date / Time codeine Allergy Itching Verified 11/25/24 09:00 ibuprofen [From Motrin] Allergy Rash/Hives Verified 11/25/24 09:00 ketorolac tromethamine Allergy Rash/Hives Verified 11/25/24 09:00 [From Toradol] Review of Systems ROS Statement: Those systems with pertinent positive or pertinent negative responses have been documented in the HPI. ROS Other: All systems not noted in ROS Statement are negative. Past Medical History Past Medical History: Coronary Artery Disease (CAD), Chest Pain / Angina, Deep Vein Thrombosis (DVT), GERD/Reflux, Hyperlipidemia, Hypertension, Osteoarthritis (OA), Thyroid Disorder Additional Past Medical History / Comment(s): Occasional palpitations, gastritis, small hiatal hernia, diverticular dx, pt states years ago he had PUD, chronic low back pain, chronic pain syndrome, migraines, DVT L arm, numbness/tingling bilateral lower legs, bilateral past R hand fracture, arthritis multiple joints, hyperthyroid, sinus problems. History of Any Multi-Drug Resistant Organisms: None Reported Past Surgical History: Back Surgery, Cholecystectomy, Heart Catheterization With Stent, Orthopedic Surgery Additional Past Surgical History / Comment(s): EGDs/colonoscopies, multiple low back surgeries, bilateral arm and bilateral thigh surgeries for brown recluse spider bites with infection, morphine pain pump insertion and removal due to infection, PCI with stents, L rotator cuff repair, L knee arthroscopy, cervical fusion/cage, R cataract removal.left knee replacement 10/27/2023 Past Anesthesia/Blood Transfusion Reactions: No Reported Reaction Additional Past Anesthesia/Blood Transfusion Reaction / Comment(s): 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 states he was "down for 12 minutes" lower back surgery Date of Last Stent Placement:: 10/12/17 Past Psychological History: Anxiety Smoking Status: Former smoker Past Alcohol Use History: None Reported Past Drug Use History: None Reported - Past Family History Father Family Medical History: No Reported History Additional Family Medical History / Comment(s): Father had back problems. He lived to be 82 yrs old. Mother History Unknown: Yes Family Medical History: Hypertension, Myocardial Infarction (ME) Additional Family Medical History / Comment(s): Mother of a ME at the age of 55yrs. Brother(s) Family Medical History: Cancer, COPD Additional Family Medical History / Comment(s): Leukemia General Exam Limitations: no limitations General appearance: alert, in no apparent distress Head exam: Present: atraumatic, normocephalic, normal inspection Eye exam: Present: normal appearance, PERRL, EOMI. Absent: scleral icterus, conjunctival injection, periorbital swelling Respiratory exam: Present: normal lung sounds bilaterally. Absent: respiratory distress, wheezes, rales, rhonchi, stridor Cardiovascular Exam: Present: regular rate, normal rhythm, normal heart sounds. Absent: systolic murmur, diastolic murmur, rubs, gallop, clicks Extremities exam: Present: other (No swelling, erythema, or tenderness to the bilateral upper extremities. Full range of motion. 2+ radial pulses bila terally) Psychiatric exam: Present: normal affect, normal mood Skin exam: Present: warm, dry, intact, normal color. Absent: rash Course Vital Signs 11/25/24 11/25/24 09:00 11:37 Temperature 97.6 F Pulse Rate 103 H 102 H Respiratory 18 20 Rate Blood Pressure 185/87 184/84 O2 Sat by Pulse 98 97 Oximetry Medical Decision Making - Medical Decision Making This is a 69-year-old male who presents to the emergency department for a headache and arm pain. Was pt. sent in by a medical professional or institution? @ -No Did you speak to anyone other than the patient for history? @ -No Did you review nursing and triage notes? @ -Yes, and I agree, it is accurate with regards to the patient's symptoms. Were old charts reviewed? @ -No Differential Diagnosis? @ -Differential Headache: Migraine, tension, cluster, carbon monoxide, central venous thrombosis, pension karma temporal arteritis, acute closure glaucoma, intercranial hemorrhage, mastoiditis, sinusitis, head injury, this is not meant to be an all-inclusive list. EKG interpreted by me (3pts min.)? @ -EKG interpreted by me demonstrating the following: Sinus rhythm. Ventricular rate 86 bpm, [place] interval 172 ms, QRS duration 98 ms, QTc 409 ms. X-rays interpreted by me (1pt min.)? @ -Not obtained CT interpreted by me (1pt min.)? @ -Not obtained U/S interpreted by me (1pt. min.)? @ -Duplex ultrasound of the bilateral upper extremities obtained. My interpretation identifies no evidence of a DVT. What testing was considered but not performed? (CT, X-rays, U/S, labs)? Why? @ -None What meds were considered but not given? Why? @ -None Did you discuss the management of the patient with other professionals? @ -No Did you reconcile home meds? @ -No Was smoking cessation discussed for >3mins.? @ -No Was critical care preformed (if so, how long)? @ -No Were there social determinants of health that impacted care today? How? (Homelessness, low income, unemployed, alcoholism, drug addiction, transportation, low edu. Level, literacy, decrease access to med. care, longterm, rehab)? @ -No Was there de-escalation of care discussed even if they declined? (Discuss DNR or withdrawal of care, Hospice)? @ -No What co-morbidities impacted this encounter? (DM, HTN, Smoking, COPD, CAD, Cancer, CVA, Hep., AIDS, mental health diagnosis, sleep apnea, morbid obesity)? @ -CAD, HLD, HTN Was patient admitted / discharged? @ -Discharged. Duplex ultrasound of the bilateral upper extremities obtained revealing no evidence of a DVT. EKG reveals no acute ST changes. Symptoms likely musculoskeletal in nature. The migraine and arm pain were both managed in the emergency department and he was discharged home in stable condition. Case discussed with ED attending Dr. Almeida. Return precautions reviewed in depth, the patient is instructed to return to the emergency department with any new, worsening, or concerning symptoms. Patient verbalized understanding. Undiagnosed new problem with uncertain prognosis? @ -None Drug Therapy requiring intensive monitoring for toxicity (Heparin, Nitro, Insulin, Cardizem)? @ -None Were any procedures done? @ -None Diagnosis/symptom? @ -Migraine, bilateral arm pain Acute, or Chronic, or Acute on Chronic? @ -Acute Uncomplicated (without systemic symptoms) or Complicated (systemic symptoms)? @ -Uncomplicated Side effects of treatment? @ -None Exacerbation, Progression, or Severe Exacerbation] @ -Not applicable Poses a threat to life or bodily function? @ -No - Radiology Data Radiology results: report reviewed, image reviewed Disposition Clinical Impression: Migraine, Bilateral arm pain Disposition: HOME SELF-CARE Instructions (If sedation given, give patient instructions): Acute Headache (ED) Additional Instructions: Return to the emergency department with any new, worsening, or concerning symptoms. Follow up with your primary care provider in 1-2 days. Is patient prescribed a controlled substance at d/c from ED?: No Referrals: None,Stated [Primary Care Provider] - 1-2 days Time of Disposition: 11:28
[2024-11-25] MEDS: HYDROmorphone 1 MG/ML 1 ML SYRINGE IM STA ×2 (09:48→11:34)
[2024-11-25] MEDS: ACETAMINOPHEN TAB 500 MG TAB PO STA (10:02)
[2024-11-25] MEDS: ORPHENADRINE 30 MG/ML 2 ML VIAL IM STA (10:02)
[2024-11-25] MEDS: ONDANSETRON ODT 4 MG TAB PO STA (10:02)
[2024-11-25] MEDS: diphenhydrAMINE 50 MG/ML 1 ML VIAL IM STA (10:03)
--- NOTE | 2024-11-25 11:22 | US ---
EXAMINATION TYPE: US venous doppler duplex UE BI DATE OF EXAM: 11/25/2024 COMPARISON: NONE CLINICAL INDICATION: Male, 69 years old with history of Arm pain; TECHNIQUE: Grayscale, color Doppler and spectral Doppler imaging of the upper extremity. SIDE PERFORMED: Bilateral FINDINGS: Right Arm: Negative for DVT Left Arm: Negative for DVT Grayscale, color doppler, spectral doppler imaging performed of the deep veins of the upper extremiti es. IMPRESSION: 1. Bilateral upper extremity ultrasound negative for deep venous thrombosis. [facility], , 11/25/2024 11:19 AM
[2024-11-25 11:39] VITALS: BP 184/84; PULSE 102; RESP 20
== END 2024-11-25 11:39 | disposition home or self-care (01) ==
LOC: EC 08:56
DX: M79.622 Pain in left upper arm (principal); M79.621 Pain in right upper arm; G43.909 Migraine, unspecified, not intractable, without status migrainosus; I25.10 Atherosclerotic heart disease of native coronary artery without angina pectoris; I10 Essential (primary) hypertension; E78.5 Hyperlipidemia, unspecified; Z87.891 Personal history of nicotine dependence; Z88.5 Allergy status to narcotic agent; Z88.6 Allergy status to analgesic agent
CPT/HCPCS: 93005; 93970; 99284; 96372; J1200; J2360; J1171

== ENCOUNTER 2024-12-09 18:54 | Emergency (ER) | payer MEDICARE, OTHER ==
--- NOTE | 2024-12-09 19:50 | ED ---
Chest Pain HPI - General Chief Complaint: Chest Pain Stated Complaint: Chest/L arm pain Time Seen by Provider: 12/09/24 19:47 Source: patient, RN notes reviewed Mode of arrival: wheelchair Limitations: no limitations - History of Present Illness Initial Comments: 69-year-old male with history of CAD, hypertension, and hyperlipidemia presenting to the ER for chief complaint of chest pain x 3 hours. States around 4 PM this evening he was sitting watching TV when he began to feel a chest heaviness that radiates to the left jaw with associated left arm tingling. Denies shortness of breath. Denies worsening of pain with inspiration. He takes Eliquis daily. Follows with chemical recovery operator Dr. Go. Denies trauma or injury. History of provoked DVT in upper extremity. - Related Data Home Medications Medication Instructions Recorded Confirmed tiZANidine [Zanaflex] 4 mg PO BID 02/26/18 03/17/24 oxyCODONE-APAP 10-325MG [Percocet 1 tab PO BID PRN 01/02/20 03/17/24 10-325 mg] Aspirin EC [Ecotrin Low Dose] 81 mg PO DAILY 04/23/23 03/17/24 Folic Acid 1 mg PO DAILY 04/23/23 03/17/24 Gabapentin [Neurontin] 400 mg PO TID 06/27/23 03/17/24 Morphine Sulfate ER [Ms Contin] 15 mg PO Q12HR 03/17/24 03/17/24 Previous Rx's Medication Instructions Recorded Nitroglycerin Sl Tabs [Nitrostat] 0.4 mg SUBLINGUAL Q5M PRN #30 tab 07/23/23 Isosorbide Mononitrate ER [Imdur] 30 mg PO DAILY #30 tab 12/28/23 Losartan [Cozaar] 50 mg PO DAILY #30 tab 12/28/23 Metoprolol Tartrate [Lopressor] 100 mg PO BID #60 tab 12/28/23 amLODIPine [Norvasc] 10 mg PO DAILY #30 tab 12/28/23 hydrALAZINE HCL [Apresoline] 100 mg PO TID #90 tab 12/28/23 methIMAzole [Tapazole] 5 mg PO BID #60 tab 12/28/23 SUMAtriptan succinate [Imitrex] 25 mg PO Q4H #5 tablet 02/09/24 Atorvastatin [Lipitor] 40 mg PO DAILY 30 Days #30 tablet 03/18/24 Metoclopramide HCl [Reglan] 10 mg PO BID 30 Days #60 tablet 03/18/24 polyethylene glycoL 3350 [Miralax] 17 gm PO DAILY 30 Days #30 packet 03/18/24 Furosemide [Lasix] 60 mg PO DAILY #5 tab 05/10/24 Allergies Allergy/AdvReac Type Severity Reaction Status Date / Time codeine Allergy Itching Verified 12/09/24 18:59 ibuprofen [From Motrin] Allergy Rash/Hives Verified 12/09/24 18:59 ketorolac tromethamine Allergy Rash/Hives Verified 12/09/24 18:59 [From Toradol] Review of Systems ROS Statement: Those systems with pertinent positive or pertinent negative responses have been documented in the HPI. ROS Other: All systems not noted in ROS Statement are negative. EKG Findings - EKG Results: EKG: interpreted by ERMD (EKG reveals sinus tachycardia with no acute ST changes. Ventricular rate 102 bpm, KS interval 140, QRS duration 104, QT/QTc 353/412) Past Medical History Past Medical History: Coronary Artery Disease (CAD), Chest Pain / Angina, Deep Vein Thrombosis (DVT), GERD/Reflux, Hyperlipidemia, Hypertension, Osteoarthritis (OA), Thyroid Disorder Additional Past Medical History / Comment(s): Occasional palpitations, gastritis, small hiatal hernia, diverticular dx, pt states years ago he had PUD, chronic low back pain, chronic pain syndrome, migraines, DVT L arm, numbness/tingling bilateral lower legs, bilateral past R hand fracture, arthritis multiple joints, hyperthyroid, sinus problems. History of Any Multi-Drug Resistant Organisms: None Reported Past Surgical History: Back Surgery, Cholecystectomy, Heart Catheterization With Stent, Orthopedic Surgery Additional Past Surgical History / Comment(s): EGDs/colonoscopies, multiple low back surgeries, bilateral arm and bilateral thigh surgeries for brown recluse spider bites with infection, morphine pain pump insertion and removal due to infection, PCI with stents, L rotator cuff repair, L knee arthroscopy, cervical fusion/cage, R cataract removal.left knee replacement 10/27/2023 Past Anesthesia/Blood Transfusion Reactions: No Reported Reaction Additional Past Anesthesia/Blood Transfusion Reaction / Comment(s): 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 states he was "down for 12 minutes" lower back surgery Date of Last Stent Placement:: 10/12/17 Past Psychological History: Anxiety Smoking Status: Former smoker Past Alcohol Use History: None Reported Past Drug Use History: None Reported - Past Family History Father Family Medical History: No Reported History Additional Family Medical History / Comment(s): Father had back problems. He lived to be 82 yrs old. Mother History Unknown: Yes Family Medical History: Hypertension, Myocardial Infarction ([place]) Additional Family Medical History / Comment(s): Mother of a RI at the age of 55yrs. Brother(s) Family Medical History: Cancer, COPD Additional Family Medical History / Comment(s): Leukemia General Exam Limitations: no limitations General appearance: alert, in no apparent distress Head exam: Present: atraumatic, normocephalic, normal inspection Eye exam: Present: normal appearance, PERRL, EOMI. Absent: scleral icterus, conjunctival injection, periorbital swelling ENT exam: Present: normal exam, mucous membranes moist Neck exam: Present: normal inspection. Absent: tenderness, meningismus, lymphadenopathy Respiratory exam: Present: normal lung sounds bilaterally. Absent: respiratory distress, wheezes, rales, rhonchi, stridor Cardiovascular Exam: Present: regular rate, normal rhythm, normal heart sounds. Absent: systolic murmur, diastolic murmur, rubs, gallop, clicks GI/Abdominal exam: Present: soft, normal bowel sounds. Absent: distended, tenderness, guarding, rebound, rigid Neurological exam: Present: alert, oriented X3 Psychiatric exam: Present: normal affect, normal mood Skin exam: Present: warm, dry, intact, normal color. Absent: rash Course Vital Signs 12/09/24 12/09/24 12/09/24 18:56 21:01 23:00 Temperature 97.5 F L Pulse Rate 111 H 84 94 Respiratory 16 18 17 Rate Blood Pressure 149/85 188/106 185/116 O2 Sat by Pulse 98 98 98 Oximetry 12/10/24 12/10/24 01:48 02:25 Temperature 97.9 F Pulse Rate 96 93 Respiratory 22 20 Rate Blood Pressure 199/141 197/119 O2 Sat by Pulse 98 98 Oximetry Chest Pain MDM - MDM Was pt. sent in by a medical professional or institution (, PA, MEDICAL REIMBURSEMENT SPECIALIST, urgent care, hospital, or shelter...) When possible be specific @ -No Did you speak to anyone other than the patient for history (EMS, parent, family, police, friend...)? What history was obtained from this source @ -No Did you review nursing and triage notes (agree or disagree)? Why? @ -I reviewed and agree with nursing and triage notes Were old charts reviewed (outside hosp., previous admission, EMS record, old EKG, old radiological studies, urgent care reports/EKG's, shelter records)? Report findings @ -No old charts were reviewed Differential Diagnosis (chest pain, altered mental status, abdominal pain women, abdominal pain men, vaginal bleeding, weakness, fever, dyspnea, syncope, headache, dizziness, GI bleed, back pain, seizure, CVA, palpatations, mental health, musculoskeletal)? @ -Differential Chest Pain: Stable Angina, Unstable Angina, STEMI, NSTEMI Aortic Dissection, Pneumothorax, Musculoskeletal, Esophageal Spasm GERD, Cholecystitis, Pancreatitis, Zoster, this is not meant to be an all-inclusive list. EKG interpreted by me (3pts min.). @ -As above X-rays interpreted by me (1pt min.). @ -Chest x-ray reveals no acute process CT interpreted by me (1pt min.). @ -None done U/S interpreted by me (1pt. min.). @ -None done What testing was considered but not performed or refused? (CT, X-rays, U/S, labs)? Why? @ -None What meds were considered but not given or refused? Why? @ -None Did you discuss the management of the patient with other professionals (professionals i.e. , PA, MEDICAL REIMBURSEMENT SPECIALIST, lab, RT, psych nurse, social service manager, jigger machine operator, teacher, mounted police officer, family service caseworker)? Give summary @ -No Was smoking cessation discussed for >3mins.? @ -No Was critical care preformed (if so, how long)? @ -No Were there social determinants of health that impacted care today? How? (Ho melessness, low income, unemployed, alcoholism, drug addiction, transportation, low edu. Level, literacy, decrease access to med. care, snf, rehab)? @ -No Was there de-escalation of care discussed even if they declined (Discuss DNR or withdrawal of care, Hospice)? DNR status @ -No What co-morbidities impacted this encounter? (DM, HTN, Smoking, COPD, CAD, Cancer, CVA, ARF, Chemo, Hep., AIDS, mental health diagnosis, sleep apnea, morbid obesity)? @ -None Was patient admitted / discharged? Hospital course, mention meds given and route, prescriptions, significant lab abnormalities, going to OR and other pertinent info. @ -Discharge. This is a 69-year-old male well-known to ER presenting for evaluation of chest pain x 3 hours. He is on Eliquis. No exacerbating or alleviating factors. Patient is initially tachycardic, otherwise vital signs within acceptable limits. EKG reveals sinus tachycardia with no ST changes. Patient was provided with loading dose of aspirin, morphine, and nitroglycerin. Lab work including CBC, CMP, D-dimer, magnesium, troponin largely unremarkable. Chest x-ray reveals no acute process. Upon reevaluation, patient is found to be hypertensive. Patient was given home doses of hydralazine and metoprolol. Repeat troponin negative. Discussed negative results with patient. Patient reports symptom improvement. Considered admission however patient has had lexicon stress test within the last year which was negative and patient reports significant symptom improvement upon reevaluation and would like to be discharged. Advised to take all at home blood pressure medications when he gets home. Appropriate return precautions and follow-up care discussed. Case was discussed in detail with my ED attending Dr. Gordillo. Undiagnosed new problem with uncertain prognosis? @ -No Drug Therapy requiring intensive monitoring for toxicity (Heparin, Nitro, Insulin, Cardizem)? @ -No Were any procedures done? @ -No Diagnosis/symptom? @ -Chest pain Acute, or Chronic, or Acute on Chronic? @ -Acute Uncomplicated (without systemic symptoms) or Complicated (systemic symptoms)? @ -Uncomplicated Side effects of treatment? @ -No Exacerbation, Progression, or Severe Exacerbation? @ -No Poses a threat to life or bodily function? How? (Chest pain, [place], [place], pneumonia, PE, COPD, DKA, ARF, appy, cholecystitis, CVA, Diverticulitis, Homicidal, Suicidal, threat to staff... and all critical care pts) @ -Unlikely at this time Disposition Clinical Impression: Chest pain Disposition: HOME SELF-CARE Condition: Stable Instructions (If sedation given, give patient instructions): Chest Pain (ED) Additional Instructions: Please return to the Emergency Department if symptoms worsen or any other concerns. Is patient prescribed a controlled substance at d/c from ED?: No Referrals: None,Stated [Primary Care Provider] - 1-2 days Time of Disposition: 02:58
--- NOTE | 2024-12-09 20:29 | XR ---
EXAMINATION TYPE: XR chest 2V DATE OF EXAM: 12/09/2024 8:05 PM COMPARISON: Chest radiographs from 04/15/2024 CLINICAL INDICATION: Male, 69 years old with history of chest pain; TECHNIQUE: XR chest 2V Frontal and lateral views of the chest. FINDINGS: Lungs/Pleura: There is no evidence of pleural effusion, focal consolidation, or pneumothorax. Pulmonary vascularity: Unremarkable. Heart/mediastinum: Cardiomediastinal silhouette is unremarkable. Musculoskeletal: No acute osseous pathology. There is fixation hardware in the lower cervical spine. IMPRESSION: No acute cardiopulmonary disease/process. [facility], , 12/09/2024 8:27 PM
[2024-12-09] MEDS: ASPIRIN 81 MG PO STA (21:14)
[2024-12-09] MEDS: MORPHINE SULFATE 4 MG/ML SYRINGE IVP STA (22:13)
[2024-12-09] MEDS: NITROGLYCERIN SL TABS 0.4 MG TAB SUBLINGUAL PRN (22:14)
[2024-12-09 22:18] LABS: Basophils % (A) 1 %; Eosinophils % (A) 1 %; HCT 44.3 % (39.0-53.0); Lymphocytes # (A) 1.1 k/uL (1.0-4.8); Lymphocytes % (A) 26 %; MCH 29.2 pg (25.0-35.0); MCHC 31.6 g/dL (31.0-37.0); MCV 92.4 fL (80.0-100.0); Mean Platelet Volume 6.9; Monocytes # (A) 0.2 k/uL (0-1.0); Monocytes % (A) 5 %; Neutrophils % (A) 66 %; Platelet Count 395 k/uL (150-450); WBC 4.5 k/uL (3.8-10.6)
[2024-12-09 22:33] LABS: INR 0.9 (<1.2); Partial Thromboplastin Time 23.3 sec (22.0-30.0); Prothrombin Time 10.4 sec (10.0-12.5)
[2024-12-09 22:48] LABS: Anion Gap 13 mmol/L; Blood Urea Nitrogen 8 mg/dL (9-20); Carbon Dioxide 23 mmol/L (22-30); Chloride 104 mmol/L (98-107); Glucose 107 mg/dL (74-99); Potassium 4.5 mmol/L (3.5-5.1); Sodium 140 mmol/L (137-145)
[2024-12-09 22:49] LABS: ALT 18 U/L (4-49); AST 19 U/L (17-59); African American GFR (CKD) >90 (>60 ml/min/1.73 sqM); Albumin 5.2 g/dL (3.5-5.0); Alkaline Phosphatase 89 U/L (38-126); Calcium 10.2 mg/dL (8.4-10.2); Magnesium 2.2 mg/dL (1.6-2.3); Non-African American GFR(CKD) >90 (>60 ml/min/1.73 sqM); Total Bilirubin 0.5 mg/dL (0.2-1.3); Total Protein 8.7 g/dL (6.3-8.2)
[2024-12-09] MEDS: hydrALAZINE HCL 50 MG TAB PO STA (23:34)
[2024-12-09] MEDS: METOPROLOL TARTRATE 50 MG TAB PO STA (23:34)
[2024-12-10] MEDS: MORPHINE SULFATE 2 MG/ML SYRINGE IVP ONE (01:43)
[2024-12-10 01:49] VITALS: TEMP 97.9
[2024-12-10 02:26] VITALS: BP 197/119; PULSE 93; RESP 20
== END 2024-12-10 03:03 | disposition home or self-care (01) ==
LOC: EC 18:54
DX: R07.9 Chest pain, unspecified (principal); Z88.6 Allergy status to analgesic agent; Z88.8 Allergy status to other drugs, medicaments and biological substances; Z87.891 Personal history of nicotine dependence; Z95.5 Presence of coronary angioplasty implant and graft
CPT/HCPCS: 36415 ×2; 93005; 85379; 80053; 83735; 84484 ×2; 85025; 85610; 85730; 71046; 99285; 96374; 96376; J2270 ×2

== ENCOUNTER 2025-04-08 15:50 | Emergency (ER) | payer MEDICARE ==
[2025-04-08 15:52] VITALS: TEMP 97.7
--- NOTE | 2025-04-08 17:03 | ED ---
Headache HPI - General Chief Complaint: Headache Stated Complaint: migraine,abd pain Time Seen by Provider: 04/08/25 16:14 Source: RN notes reviewed, old records reviewed Mode of arrival: ambulatory Limitations: no limitations - History of Present Illness Initial Comments: This is a 69-year-old male to the ER for evaluation, patient comes in for evaluation of headache headache that started yesterday getting progressively worse overnight progressed to significant vomiting unable to take home medication. Patient states the vomiting has persisted to including some blood patient is on blood thinners. No real abdominal pain no recent dark or tarry stools. No feelings of lightheadedness dizziness or weakness. Patient is here just for severe headache MD Complaint: headache -: days(s) Onset Description: gradual Location: right, left, frontal, temporal Severity: severe Severity scale (1-10): 10 Quality: aching, throbbing, pulsatile Consistency: constant Improves With: nothing Worsens With: none Associated Symptoms: nausea, vomiting Other Symptoms: eye pain/redness Treatments Prior to Arrival: none - Related Data Home Medications Medication Instructions Recorded Confirmed tiZANidine [Zanaflex] 4 mg PO BID 02/26/18 03/17/24 oxyCODONE-APAP 10-325MG [Percocet 1 tab PO BID PRN 01/02/20 03/17/24 10-325 mg] Aspirin EC [Ecotrin Low Dose] 81 mg PO DAILY 04/23/23 03/17/24 Folic Acid 1 mg PO DAILY 04/23/23 03/17/24 Gabapentin [Neurontin] 400 mg PO TID 06/27/23 03/17/24 Morphine Sulfate ER [Ms Contin] 15 mg PO Q12HR 03/17/24 03/17/24 Previous Rx's Medication Instructions Recorded Nitroglycerin Sl Tabs [Nitrostat] 0.4 mg SUBLINGUAL Q5M PRN #30 tab 07/23/23 Isosorbide Mononitrate ER [Imdur] 30 mg PO DAILY #30 tab 12/28/23 Losartan [Cozaar] 50 mg PO DAILY #30 tab 12/28/23 Metoprolol Tartrate [Lopressor] 100 mg PO BID #60 tab 12/28/23 amLODIPine [Norvasc] 10 mg PO DAILY #30 tab 12/28/23 hydrALAZINE HCL [Apresoline] 100 mg PO TID #90 tab 12/28/23 methIMAzole [Tapazole] 5 mg PO BID #60 tab 12/28/23 SUMAtriptan succinate [Imitrex] 25 mg PO Q4H #5 tablet 01/01/24 Atorvastatin [Lipitor] 40 mg PO DAILY 30 Days #30 tablet 03/18/24 Metoclopramide HCl [Reglan] 10 mg PO BID 30 Days #60 tablet 03/18/24 polyethylene glycoL 3350 [Miralax] 17 gm PO DAILY 30 Days #30 packet 03/18/24 Furosemide [Lasix] 60 mg PO DAILY #5 tab 05/10/24 Allergies Allergy/AdvReac Type Severity Reaction Status Date / Time codeine Allergy Itching Verified 04/08/25 15:52 ibuprofen [From Motrin] Allergy Rash/Hives Verified 04/08/25 15:52 ketorolac tromethamine Allergy Rash/Hives Verified 04/08/25 15:52 [From Toradol] Review of Systems ROS Statement: Those systems with pertinent positive or pertinent negative responses have been documented in the HPI. ROS Other: All systems not noted in ROS Statement are negative. Past Medical History Past Medical History: Coronary Artery Disease (CAD), Chest Pain / Angina, Deep Vein Thrombosis (DVT), GERD/Reflux, Hyperlipidemia, Hypertension, Osteoarthritis (OA), Thyroid Disorder Additional Past Medical History / Comment(s): Occasional palpitations, gastritis, small hiatal hernia, diverticular dx, pt states years ago he had PUD, chronic low back pain, chronic pain syndrome, migraines, DVT L arm, numbness/tingling bilateral lower legs, bilateral past R hand fracture, arthritis multiple joints, hyperthyroid, sinus problems. History of Any Multi-Drug Resistant Organisms: None Reported Past Surgical History: Back Surgery, Cholecystectomy, Heart Catheterization With Stent, Orthopedic Surgery Additional Past Surgical History / Comment(s): EGDs/colonoscopies, multiple low back surgeries, bilateral arm and bilateral thigh surgeries for brown recluse spider bites with infection, morphine pain pump insertion and removal due to infection, PCI with stents, L rotator cuff repair, L knee arthroscopy, cervical fusion/cage, R cataract removal.left knee replacement 10/27/2023 Past Anesthesia/Blood Transfusion Reactions: No Reported Reaction Additional Past Anesthesia/Blood Transfusion Reaction / Comment(s): 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 states he was "down for 12 minutes" lower back surgery Date of Last Stent Placement:: 10/12/17 Past Psychological History: Anxiety Smoking Status: Former smoker Past Alcohol Use History: None Reported Past Drug Use History: None Reported - Past Family History Father Family Medical History: No Reported History Additional Family Medical History / Comment(s): Father had back problems. He lived to be 82 yrs old. Mother History Unknown: Yes Family Medical History: Hypertension, Myocardial Infarction ([place]) Additional Family Medical History / Comment(s): Mother of a IA at the age of 55yrs. Brother(s) Family Medical History: Cancer, COPD Additional Family Medical History / Comment(s): Leukemia General Exam Limitations: no limitations General appearance: alert, in no apparent distress Head exam: Present: atraumatic, normocephalic, normal inspection Eye exam: Present: normal appearance, PERRL, EOMI. Absent: scleral icterus, conjunctival injection, periorbital swelling ENT exam: Present: normal exam, mucous membranes moist Neck exam: Present: normal inspection. Absent: tenderness, meningismus, lymphadenopathy Respiratory exam: Present: normal lung sounds bilaterally. Absent: respiratory distress, wheezes, rales, rhonchi, stridor Cardiovascular Exam: Present: regular rate, normal rhythm, normal heart sounds. Absent: systolic murmur, diastolic murmur, rubs, gallop, clicks GI/Abdominal exam: Present: soft, normal bowel sounds. Absent: distended, tenderness, guarding, rebound, rigid Extremities exam: Present: normal inspection, full ROM, normal capillary refill. Absent: tenderness, pedal edema, joint swelling, calf tenderness Back exam: Present: normal inspection Neurological exam: Present: alert, oriented X3, CN II-XII intact Psychiatric exam: Present: normal affect, normal mood Skin exam: Present: warm, dry, intact, normal color. Absent: rash Course Vital Signs 04/08/25 15:50 Temperature 97.7 F - Reevaluation(s) Reevaluation #1: 04/08/25 17:06 Medical records reviewed Reevaluation #2: 04/08/25 17:06 Patient has no active vomiting of blood here in the ER Patient is declining rectal exam for fecal occult blood Reevaluation #3: 04/08/25 17:06 Patient informed of results and questions answered Reevaluation #4: Was pt. sent in by a medical professional or institution (, FAITH, WEIGHT TESTER, urgent care, hospital, or [facility]...) When possible be specific @ -no Did you speak to anyone other than the patient for history (EMS, parent, family, police, friend...)? What history was obtained from this source @ -no Did you review nursing and triage notes (agree or disagree)? Why? @ -agree Are old charts reviewed (outside hosp., previous admission, EMS record, old EKG, old radiological studies, urgent care reports/EKG's, [facility] records)? Report findings @ -yes Differential Diagnosis (chest pain, altered mental status, abdominal pain women, abdominal pain men, vaginal bleeding, weakness, fever, dyspnea, syncope, headache, dizziness, GI bleed, back pain, seizure, CVA, palpatations, mental health, musculoskeletal)? @ -prior EKG interpreted by me (3pts min.). @ -yes X-rays interpreted by me (1pt min.). @ -yes negative for acute disease CT interpreted by me (1pt min.). @ -no U/S interpreted by me (1pt. min.). @ -no What testing was considered but not performed or refused? (CT, X-rays, U/S, labs)? Why? @ -none What meds were considered but not given or refused? Why? @ -none Did you discuss the management of the patient with other professionals (professionals i.e. FAITH Burns, WEIGHT TESTER, lab, RT, psych nurse, social security benefits interviewer, asp developer, teacher, light armored reconnaissance officer, upper caser)? Give summary @ -no Was smoking cessation discussed for >3mins.? @ -no Was critical care preformed (if so, how long)? @ -no Were there social determinants of health that impacted care today? How? (Homelessness, low income, unemployed, alcoholism, drug addiction, transportation, low edu. Level, literacy, decrease access to med. care, [facility], rehab)? @ -none Was there de-escalation of care discussed even if they declined (Discuss DNR or withdrawal of care, Hospice)? DNR status @ -no What co-morbidities impacted this encounter? (DM, HTN, Smoking, COPD, CAD, Cancer, CVA, ARF, Chemo, Hep., AIDS, mental health diagnosis, sleep apnea, morbid obesity)? @ -none Was patient admitted / discharged? Hospital course, mention meds given and route, prescriptions, significant lab abnormalities, going to OR and other pertinent info. @ - Undiagnosed new problem with uncertain prognosis? @ -no Drug Therapy requiring intensive monitoring for toxicity (Heparin, Nitro, Insulin, Cardizem)? @ -no Were any procedures done? @ -no Diagnosis/symptom? @ - Acute, or Chronic, or Acute on Chronic? @ -Acute Uncomplicated (without systemic symptoms) or Complicated (systemic symptoms)? @ -Complicated Side effects of treatment? @ -no Exacerbation, Progression, or Severe Exacerbation? @ -exacerbation Poses a threat to life or bodily function? How? (Chest pain, [place], [place], pneumonia, PE, COPD, DKA, ARF, appy, cholecystitis, CVA, Diverticulitis, Homicidal, Suicidal, threat to staff... and all critical care pts) @ -yes Reevaluation #5: Differential Headache: Migraine, tension, cluster, carbon monoxide, central venous thrombosis, pension karma temporal arteritis, acute closure glaucoma, intercranial hemorrhage, mastoiditis, sinusitis, head injury, this is not meant to be an all-inclusive list. Medical Decision Making - Medical Decision Making 69 male with severe migraine headache and vomiting, likely Farhana-Victor tear due to description of vomitus. No vomiting blood here in the ER, patient has normal stable vital signs can be discharged home Disposition Clinical Impression: Vomiting, Intractable headache, Intractable nausea and vomiting Disposition: HOME SELF-CARE Condition: Fair Instructions (If sedation given, give patient instructions): Acute Headache (ED) Is patient prescribed a controlled substance at d/c from ED?: No Referrals: None,Stated [Primary Care Provider] - 1-2 days Time of Disposition: 17:00
[2025-04-08 17:07] VITALS: BP 171/94; PULSE 80; RESP 18
[2025-04-08] MEDS: HYDROmorphone 1 MG/ML 1 ML SYRINGE IM STA (17:12)
[2025-04-08] MEDS: ONDANSETRON ODT 4 MG TAB PO STA (17:12)
[2025-04-08] MEDS: diphenhydrAMINE 50 MG CAP PO STA (17:12)
[2025-04-08] MEDS: ONDANSETRON 4 MG ODT STARTER PACK 2 TAB BTL PO STA (17:24)
[2025-04-08] MEDS: traMADol 50 MG STARTER PACK 3 TAB BTL PO STA (17:24)
== END 2025-04-08 17:27 | disposition home or self-care (01) ==
LOC: EC 15:50
DX: R11.2 Nausea with vomiting, unspecified (principal); G43.909 Migraine, unspecified, not intractable, without status migrainosus; Z87.891 Personal history of nicotine dependence; Z88.6 Allergy status to analgesic agent; Z88.8 Allergy status to other drugs, medicaments and biological substances
CPT/HCPCS: 99283; 96372; J1171; S0119

== ENCOUNTER 2025-04-10 12:56 | Emergency (ER) | payer MEDICARE ==
[2025-04-10 13:35] VITALS: RESP 18
--- NOTE | 2025-04-10 14:08 | ED ---
GI Bleed HPI - General Source: patient, RN notes reviewed Mode of arrival: ambulatory Limitations: no limitations <Shahbaz Mcdaniel - Last Filed: 04/10/25 14:07> - General Source: patient, RN notes reviewed, old records reviewed Mode of arrival: ambulatory Limitations: no limitations - History of Present Illness Radiation: none Quality: cramping, burning, sharp Consistency: constant Improves with: none Worsens with: none Associated Symptoms: abdominal pain, nausea, vomiting <Haresh Arellano - Last Filed: 04/11/25 18:46> - General Chief complaint: GI Bleed Stated complaint: Blood in stool,Vomiting Time Seen by Provider: 04/10/25 13:05 - History of Present Illness Initial comments: Quick note 69-year-old male presents emergency department complaint of abdominal, blood in stool. Patient states that intermittent episodes patient denies any fevers or chills no dysuria no chest pain. (Shahbaz Mcdaniel) This is a 69-year-old male to the ER for evaluation of abdominal pain patient presents today for evaluation of abdominal pain concern for blood in the stool nausea vomiting and severe headache chest pain and abdominal pain with chronic pain (Haresh Arellano) - Related Data Home Medications Medication Instructions Recorded Confirmed tiZANidine [Zanaflex] 4 mg PO BID 02/26/18 03/17/24 oxyCODONE-APAP 10-325MG [Percocet 1 tab PO BID PRN 01/02/20 03/17/24 10-325 mg] Aspirin EC [Ecotrin Low Dose] 81 mg PO DAILY 04/23/23 03/17/24 Folic Acid 1 mg PO DAILY 04/23/23 03/17/24 Gabapentin [Neurontin] 400 mg PO TID 06/27/23 03/17/24 Morphine Sulfate ER [Ms Contin] 15 mg PO Q12HR 03/17/24 03/17/24 Previous Rx's Medication Instructions Recorded Nitroglycerin Sl Tabs [Nitrostat] 0.4 mg SUBLINGUAL Q5M PRN #30 tab 07/23/23 Isosorbide Mononitrate ER [Imdur] 30 mg PO DAILY #30 tab 12/28/23 Losartan [Cozaar] 50 mg PO DAILY #30 tab 12/28/23 Metoprolol Tartrate [Lopressor] 100 mg PO BID #60 tab 12/28/23 amLODIPine [Norvasc] 10 mg PO DAILY #30 tab 12/28/23 hydrALAZINE HCL [Apresoline] 100 mg PO TID #90 tab 12/28/23 methIMAzole [Tapazole] 5 mg PO BID #60 tab 12/28/23 SUMAtriptan succinate [Imitrex] 25 mg PO Q4H #5 tablet 01/01/24 Atorvastatin [Lipitor] 40 mg PO DAILY 30 Days #30 tablet 03/18/24 Metoclopramide HCl [Reglan] 10 mg PO BID 30 Days #60 tablet 03/18/24 polyethylene glycoL 3350 [Miralax] 17 gm PO DAILY 30 Days #30 packet 03/18/24 Furosemide [Lasix] 60 mg PO DAILY #5 tab 05/10/24 Allergies Allergy/AdvReac Type Severity Reaction Status Date / Time codeine Allergy Itching Verified 04/10/25 13:35 ibuprofen [From Motrin] Allergy Rash/Hives Verified 04/10/25 13:35 ketorolac tromethamine Allergy Rash/Hives Verified 04/10/25 13:35 [From Toradol] Review of Systems ROS Other: All systems not noted in ROS Statement are negative. <Shabhaz Mcdaniel - Last Filed: 04/10/25 14:07> ROS Other: All systems not noted in ROS Statement are negative. <Haresh Arellano - Last Filed: 04/11/25 18:46> ROS Statement: Those systems with pertinent positive or pertinent negative responses have been documented in the HPI. Past Medical History Past Medical History: Coronary Artery Disease (CAD), Chest Pain / Angina, Deep Vein Thrombosis (DVT), GERD/Reflux, Hyperlipidemia, Hypertension, Osteoarthritis (OA), Thyroid Disorder Additional Past Medical History / Comment(s): Occasional palpitations, gastritis, small hiatal hernia, diverticular dx, pt states years ago he had PUD, chronic low back pain, chronic pain syndrome, migraines, DVT L arm, numbness/tingling bilateral lower legs, bilateral past R hand fracture, arthritis multiple joints, hyperthyroid, sinus problems. History of Any Multi-Drug Resistant Organisms: None Reported Past Surgical History: Back Surgery, Cholecystectomy, Heart Catheterization With Stent, Orthopedic Surgery Additional Past Surgical History / Comment(s): EGDs/colonoscopies, multiple low back surgeries, bilateral arm and bilateral thigh surgeries for brown recluse spider bites with infection, morphine pain pump insertion and removal due to infection, PCI with stents, L rotator cuff repair, L knee arthroscopy, cervical fusion/cage, R cataract removal.left knee replacement 10/27/2023 Past Anesthesia/Blood Transfusion Reactions: No Reported Reaction Additional Past Anesthesia/Blood Transfusion Reaction / Comment(s): 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 states he was "down for 12 minutes" lower back surgery Date of Last Stent Placement:: 10/12/17 Past Psychological History: Anxiety Smoking Status: Former smoker Past Alcohol Use History: None Reported Past Drug Use History: None Reported - Past Family History Father Family Medical History: No Reported History Additional Family Medical History / Comment(s): Father had back problems. He lived to be 82 yrs old. Mother History Unknown: Yes Family Medical History: Hypertension, Myocardial Infarction (NV) Additional Family Medical History / Comment(s): Mother of a NV at the age of 55yrs. Brother(s) Family Medical History: Cancer, COPD Additional Family Medical History / Comment(s): Leukemia <Shahbaz Mcdaniel M - Last Filed: 04/10/25 14:07> General Exam Limitations: no limitations <Shahbaz Mcdaniel M - Last Filed: 04/10/25 14:07> General appearance: alert, in no apparent distress Head exam: Present: atraumatic, normocephalic, normal inspection Eye exam: Present: normal appearance, PERRL, EOMI. Absent: scleral icterus, conjunctival injection, periorbital swelling ENT exam: Present: normal exam, mucous membranes moist Neck exam: Present: normal inspection. Absent: tenderness, meningismus, lymphadenopathy Respiratory exam: Present: normal lung sounds bilaterally. Absent: respiratory distress, wheezes, rales, rhonchi, stridor Cardiovascular Exam: Present: regular rate, normal rhythm, normal heart sounds. Absent: systolic murmur, diastolic murmur, rubs, gallop, clicks GI/Abdominal exam: Present: soft, normal bowel sounds. Absent: distended, tenderness, guarding, rebound, rigid Extremities exam: Present: normal inspection, full ROM, normal capillary refill. Absent: tenderness, pedal edema, joint swelling, calf tenderness Back exam: Present: normal inspection Neurological exam: Present: alert, oriented X3, CN II-XII intact Psychiatric exam: Present: normal affect, normal mood Skin exam: Present: warm, dry, intact, normal color. Absent: rash <Haresh Arellano - Last Filed: 04/11/25 18:46> - General Exam Comments Initial Comments: Visual Physical Exam Vital signs reviewed General: Well-appearing, nontoxic, no acute distress. Head: Normocephalic, atraumatic Eyes: PERRLA, EOMI ENT: Airway patent Chest: Nonlabored breathing Skin: No visual rash, normal skin tone Neuro: Alert and oriented 3 Musculoskeletal: No gross abnormalities (Shahbaz Mcdaniel) Course <Haresh Arellano - Last Filed: 04/11/25 18:46> Vital Signs 04/10/25 04/10/25 13:32 20:35 Temperature 97.9 F 97.8 F Pulse Rate 84 82 Respiratory 18 18 Rate Blood Pressure 192/96 178/88 O2 Sat by Pulse 99 98 Oximetry - Reevaluation(s) Reevaluation #1: Medical records reviewed (Haresh Arellano) Reevaluation #2: Patient's symptoms improved (Haresh Arellano) Reevaluation #3: Patient informed of results and questions answered (Haresh Arellano) Reevaluation #4: Was pt. sent in by a medical professional or institution (, PA, TEACHER COUNSELOR, urgent care, hospital, or long term...) When possible be specific @ -no Did you speak to anyone other than the patient for history (EMS, parent, family, police, friend...)? What history was obtained from this source @ -no Did you review nursing and triage notes (agree or disagree)? Why? @ -agree Are old charts reviewed (outside hosp., previous admission, EMS record, old EKG, old radiological studies, urgent care reports/EKG's, long term records)? Report findings @ -yes Differential Diagnosis (chest pain, altered mental status, abdominal pain women, abdominal pain men, vaginal bleeding, weakness, fever, dyspnea, syncope, headache, dizziness, GI bleed, back pain, seizure, CVA, palpatations, mental health, musculoskeletal)? @ -prior EKG interpreted by me (3pts min.). @ -no X-rays interpreted by me (1pt min.). @ -no CT interpreted by me (1pt min.). @ -no U/S interpreted by me (1pt. min.). @ -no What testing was considered but not performed or refused? (CT, X-rays, U/S, labs)? Why? @ -none What meds were considered but not given or refused? Why? @ -none Did you discuss the management of the patient with other professionals (professionals i.e. , PA, TEACHER COUNSELOR, lab, RT, psych nurse, psychiatric social worker supervisor, sleep manager, teacher, chief safety officer, casework manager)? Give summary @ -no Was smoking cessation discussed for >3mins.? @ -no Was critical care preformed (if so, how long)? @ -no Were there social determinants of health that impacted care today? How? (Homelessness, low income, unemployed, alcoholism, drug addiction, transportation, low edu. Level, literacy, decrease access to med. care, usp, rehab)? @ -none Was there de-escalation of care discussed even if they declined (Discuss DNR or withdrawal of care, Hospice)? DNR status @ -no What co-morbidities impacted this encounter? (DM, HTN, Smoking, COPD, CAD, Cancer, CVA, ARF, Chemo, Hep., AIDS, mental health diagnosis, sleep apnea, morbid obesity)? @ -none Was patient admitted / discharged? Hospital course, mention meds given and route, prescriptions, significant lab abnormalities, going to OR and other pertinent info. @ -69 male to ER for possible upper GI bleed chronic pain hemoglobin is normal x 2 patient has no active vomiting here in the ER pain controlled can be discharged home discharge Undiagnosed new problem with uncertain prognosis? @ -no Drug Therapy requiring intensive monitoring for toxicity (Heparin, Nitro, Insulin, Cardizem)? @ -no Were any procedures done? @ -no Diagnosis/symptom? @ - Acute, or Chronic, or Acute on Chronic? @ -Acute Uncomplicated (without systemic symptoms) or Complicated (systemic symptoms)? @ -Complicated Side effects of treatment? @ -no Exacerbation, Progression, or Severe Exacerbation? @ -exacerbation Poses a threat to life or bodily function? How? (Chest pain, USA, NV, pneumonia, PE, COPD, DKA, ARF, appy, cholecystitis, CVA, Diverticulitis, Homicidal, Suicidal, threat to staff... and all critical care pts) @ -yes with possible upper GI bleed (Haresh Arellano) Medical Decision Making <Shahbaz Mcdaniel - Last Filed: 04/10/25 14:07> - Lab Data Result diagrams: 04/10/25 18:43 <Haresh Arellano - Last Filed: 04/11/25 18:46> - Medical Decision Making I completed the quick note portion of this chart signed Shahbaz Mcdaniel PA-C (Shahbaz Mcdaniel) 69 male for possible GI bleed hemoglobin increasing while in the ER. Pain is controlled patient can be discharged home (Haresh Arellano) - Lab Data Lab Results 04/10/25 04/10/25 Range/Units 15:50 18:43 WBC 4.00 L 4.27 L (4.50-10.00) 10*3/uL RBC 3.83 L 3.89 L (4.40-5.60) 10*6/uL Hgb 11.0 L 11.4 L (13.0-17.0) g/dL Hct 33.5 L 34.3 L (39.6-50.0) % MCV 87.5 88.2 (80.0-97.0) fL MCH 28.7 29.3 (27.0-32.0) pg MCHC 32.8 33.2 (32.0-37.0) g/dL Plt Count 499 H 523 H (140-440) 10*3/uL MPV 8.2 L 8.5 L (9.5-12.2) fL Immature Gran % (Auto) 0.3 0.2 % Neutrophils % 57.4 61.0 % Lymphocytes % 31.5 28.1 % Monocytes % 8.3 8.4 % Eosinophils % 1.5 1.6 % Basophils % 1.0 0.7 % Immature Gran # 0.01 0.01 (0.00-0.04) 10*3/uL Neutrophils # 2.30 2.60 (1.80-7.70) 10*3/uL Lymphocytes # 1.26 1.20 (0.90-5.00) 10*3/uL Monocytes # 0.33 0.36 (0.20-1.00) 10*3/uL Eosinophils # 0.06 0.07 (0.04-0.35) 10*3/uL Basophils # 0.04 0.03 (0.00-0.10) 10*3/uL Disposition <Shahbaz Mcdaniel - Last Filed: 04/10/25 14:07> Is patient prescribed a controlled substance at d/c from ED?: No Time of Disposition: 19:00 <Haresh Arellano - Last Filed: 04/11/25 18:46> Clinical Impression: Vomiting, Nausea & vomiting, Abdominal pain Disposition: HOME SELF-CARE Condition: Good Instructions (If sedation given, give patient instructions): Gastrointestinal Bleeding (ED), Abdominal Pain (ED) Referrals: None,Stated [Primary Care Provider] - 1-2 days
[2025-04-10 16:11] LABS: Basophils # (A) 0.04 10*3/uL (0.00-0.10); Eosinophils # (A) 0.06 10*3/uL (0.04-0.35); Eosinophils % (A) 1.5 %; HCT 33.5 % (39.6-50.0); Lymphocytes # (A) 1.26 10*3/uL (0.90-5.00); Lymphocytes % (A) 31.5 %; MCH 28.7 pg (27.0-32.0); MCHC 32.8 g/dL (32.0-37.0); MCV 87.5 fL (80.0-97.0); Mean Platelet Volume 8.2 fL (9.5-12.2); Monocytes # (A) 0.33 10*3/uL (0.20-1.00); Monocytes % (A) 8.3 %; Neutrophils % (A) 57.4 %; Platelet Count 499 10*3/uL (140-440); RBC 3.83 10*6/uL (4.40-5.60); RDW 15.6 % (11.5-14.5)
[2025-04-10] MEDS: diphenhydrAMINE 50 MG/ML 1 ML VIAL IVP STA (18:36)
[2025-04-10] MEDS: PANTOPRAZOLE 40 MG/10 ML VIAL IVP STA (18:36)
[2025-04-10] MEDS: HYDROmorphone 1 MG/ML 1 ML SYRINGE IVP STA ×2 (18:37→20:23)
[2025-04-10] MEDS: ONDANSETRON 4 MG/2 ML VIAL IVP STA (18:37)
[2025-04-10 19:37] LABS: Basophils # (A) 0.03 10*3/uL (0.00-0.10); Basophils % (A) 0.7 %; Eosinophils # (A) 0.07 10*3/uL (0.04-0.35); Eosinophils % (A) 1.6 %; HCT 34.3 % (39.6-50.0); HGB 11.4 g/dL (13.0-17.0); Lymphocytes % (A) 28.1 %; MCH 29.3 pg (27.0-32.0); MCHC 33.2 g/dL (32.0-37.0); MCV 88.2 fL (80.0-97.0); Mean Platelet Volume 8.5 fL (9.5-12.2); Monocytes # (A) 0.36 10*3/uL (0.20-1.00); Monocytes % (A) 8.4 %; Platelet Count 523 10*3/uL (140-440); RBC 3.89 10*6/uL (4.40-5.60); RDW 15.7 % (11.5-14.5); WBC 4.27 10*3/uL (4.50-10.00)
[2025-04-10] MEDS: traMADol 50 MG STARTER PACK 3 TAB BTL PO STA (20:21)
[2025-04-10] MEDS: ONDANSETRON 4 MG ODT STARTER PACK 2 TAB BTL PO STA (20:21)
[2025-04-10 20:37] VITALS: BP 178/88; PULSE 82; TEMP 97.8
== END 2025-04-10 20:35 | disposition home or self-care (01) ==
LOC: EC 12:56
DX: R10.9 Unspecified abdominal pain (principal); R11.2 Nausea with vomiting, unspecified; Z88.6 Allergy status to analgesic agent; Z88.5 Allergy status to narcotic agent; Z88.8 Allergy status to other drugs, medicaments and biological substances; Z87.891 Personal history of nicotine dependence
CPT/HCPCS: 36415; 85025; 99285; 96374; 96375 ×3; 96376; J1200; J2405; J1171; S0119; J2470

== ENCOUNTER 2025-05-05 14:40 | Observation (INO) | payer MEDICARE ==
--- NOTE | 2025-05-05 15:02 | ED ---
Chest Pain HPI - General Source: patient, RN notes reviewed Mode of arrival: ambulatory Limitations: no limitations - History of Present Illness MD Complaint: chest pain <Airam Romo - Last Filed: 05/05/25 15:00> <Haresh Baker - Last Filed: 05/05/25 19:43> - General Chief Complaint: Chest Pain Stated Complaint: Chest pain Time Seen by Provider: 05/05/25 14:55 - History of Present Illness Initial Comments: Quick Note: This is a 69-year-old male who presents to the emergency department for chest pain. Reports chest pain/pressure starting earlier today with associated shortness of breath. He has a history of CAD with prior stent placement. (Airam Romo) This is a 69-year-old male who presents to the emergency department for chest pain. Patient states the chest pain radiates up into his neck and down his left arm. Patient states he is mildly short of breath. Patient states that started last evening and continues today. Patient denies any fever chills or cough. Patient has abdominal pain patient has nausea vomiting. Patient [place] any swelling to his legs or calf tenderness. Patient has a history of coronary artery disease. (Haresh Baker) - Related Data Home Medications Medication Instructions Recorded Confirmed tiZANidine [Zanaflex] 4 mg PO BID 02/26/18 03/17/24 oxyCODONE-APAP 10-325MG [Percocet 1 tab PO BID PRN 01/02/20 03/17/24 10-325 mg] Aspirin EC [Ecotrin Low Dose] 81 mg PO DAILY 04/23/23 03/17/24 Folic Acid 1 mg PO DAILY 04/23/23 03/17/24 Gabapentin [Neurontin] 400 mg PO TID 06/27/23 03/17/24 Morphine Sulfate ER [Ms Contin] 15 mg PO Q12HR 03/17/24 03/17/24 Previous Rx's Medication Instructions Recorded Nitroglycerin Sl Tabs [Nitrostat] 0.4 mg SUBLINGUAL Q5M PRN #30 tab 07/23/23 Isosorbide Mononitrate ER [Imdur] 30 mg PO DAILY #30 tab 12/28/23 Losartan [Cozaar] 50 mg PO DAILY #30 tab 12/28/23 Metoprolol Tartrate [Lopressor] 100 mg PO BID #60 tab 12/28/23 amLODIPine [Norvasc] 10 mg PO DAILY #30 tab 12/28/23 hydrALAZINE HCL [Apresoline] 100 mg PO TID #90 tab 12/28/23 methIMAzole [Tapazole] 5 mg PO BID #60 tab 12/28/23 SUMAtriptan succinate [Imitrex] 25 mg PO Q4H #5 tablet 01/01/24 Atorvastatin [Lipitor] 40 mg PO DAILY 30 Days #30 tablet 03/18/24 Metoclopramide HCl [Reglan] 10 mg PO BID 30 Days #60 tablet 03/18/24 polyethylene glycoL 3350 [Miralax] 17 gm PO DAILY 30 Days #30 packet 03/18/24 Furosemide [Lasix] 60 mg PO DAILY #5 tab 05/10/24 Allergies Allergy/AdvReac Type Severity Reaction Status Date / Time codeine Allergy Itching Verified 05/05/25 14:46 ibuprofen [From Motrin] Allergy Rash/Hives Verified 05/05/25 14:46 ketorolac tromethamine Allergy Rash/Hives Verified 05/05/25 14:46 [From Toradol] Review of Systems ROS Other: All systems not noted in ROS Statement are negative. <Airam Romo - Last Filed: 05/05/25 15:00> ROS Other: All systems not noted in ROS Statement are negative. <Haresh Baker - Last Filed: 05/05/25 19:43> ROS Statement: Those systems with pertinent positive or pertinent negative responses have been documented in the HPI. Past Medical History Past Medical History: Coronary Artery Disease (CAD), Chest Pain / Angina, Deep Vein Thrombosis (DVT), GERD/Reflux, Hyperlipidemia, Hypertension, Osteoarthritis (OA), Thyroid Disorder Additional Past Medical History / Comment(s): Occasional palpitations, gastritis, small hiatal hernia, diverticular dx, pt states years ago he had PUD, chronic low back pain, chronic pain syndrome, migraines, DVT L arm, numbness/tingling bilateral lower legs, bilateral past R hand fracture, arthritis multiple joints, hyperthyroid, sinus problems. History of Any Multi-Drug Resistant Organisms: None Reported Past Surgical History: Back Surgery, Cholecystectomy, Heart Catheterization With Stent, Orthopedic Surgery Additional Past Surgical History / Comment(s): EGDs/colonoscopies, multiple low back surgeries, bilateral arm and bilateral thigh surgeries for brown recluse spider bites with infection, morphine pain pump insertion and removal due to infection, PCI with stents, L rotator cuff repair, L knee arthroscopy, cervical fusion/cage, R cataract removal.left knee replacement 10/27/2023 Past Anesthesia/Blood Transfusion Reactions: No Reported Reaction Additional Past Anesthesia/Blood Transfusion Reaction / Comment(s): 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 states he was "down for 12 minutes" lower back surgery Date of Last Stent Placement:: 10/12/17 Past Psychological History: Anxiety Smoking Status: Former smoker Past Alcohol Use History: None Reported Past Drug Use History: None Reported - Past Family History Father Family Medical History: No Reported History Additional Family Medical History / Comment(s): Father had back problems. He lived to be 82 yrs old. Mother History Unknown: Yes Family Medical History: Hypertension, Myocardial Infarction (AL) Additional Family Medical History / Comment(s): Mother of a AL at the age of 55yrs. Brother(s) Family Medical History: Cancer, COPD Additional Family Medical History / Comment(s): Leukemia <Airam Romo - Last Filed: 05/05/25 15:00> General Exam Limitations: no limitations <Airam Romo - Last Filed: 05/05/25 15:00> <Haresh Baker - Last Filed: 05/05/25 19:43> - General Exam Comments Initial Comments: Visual Physical Exam Vital signs reviewed General: Well-appearing, nontoxic, no acute distress. Head: Normocephalic, atraumatic Eyes: PERRLA, EOMI ENT: Airway patent Chest: Nonlabored breathing Skin: No visual rash, normal skin tone Neuro: Alert and oriented 3 Musculoskeletal: No gross abnormalities (Airam Romo) GENERAL: Patient is well-developed and well-nourished. Patient is nontoxic and well- hydrated and is in no acute distress. ENT: Neck is soft and supple. No significant lymphadenopathy is noted. Oropharynx is clear. Moist mucous membranes. Neck has full range of motion without eliciting any pain. EYES: The sclera were anicteric and conjunctiva were pink and moist. Extraocular movements were intact and pupils were equal round and reactive to light. Eyelids were unremarkable. PULMONARY: Unlabored respirations. Good breath sounds bilaterally. No audible rales rhonchi or wheezing was noted. CARDIOVASCULAR: There is a regular rate and rhythm without any murmurs gallops or rubs. ABDOMEN: Soft and nontender with normal bowel sounds. SKIN: Skin is clear with no lesions or rashes and otherwise unremarkable. NEUROLOGIC: Patient is alert and oriented x3. Cranial nerves II through XII are grossly intact. Motor and sensory are also intact. Normal speech, volume and content. Symmetrical smile. MUSCULOSKELETAL: Normal extremities with adequate strength and full range of motion. LYMPHATICS: No significant lymphadenopathy is noted PSYCHIATRIC: Normal psychiatric evaluation. (Haresh Baker) Course Vital Signs 05/05/25 05/05/25 05/05/25 14:44 18:20 19:30 Temperature 98.3 F 98.2 F Pulse Rate 104 H 104 H 110 H Respiratory 18 22 20 Rate Blood Pressure 199/109 188/114 191/114 O2 Sat by Pulse 99 100 99 Oximetry Chest Pain MDM <Airam Romo - Last Filed: 05/05/25 15:00> <Haresh Baker - Last Filed: 05/05/25 19:43> - MDM I performed the QuickNote portion of this chart. Signed Airam Romo PA-C. (Airam Romo) EKG is interpreted by myself her EKG shows a sinus tachycardia at 100 bpm NV interval is 153 QRS is 105 QT interval 359 QTc is 416. Patient's EKG shows no ST segment elevation or depression. Was pt. sent in by a medical professional or institution (FA[facility], DATA NETWORK ARCHITECT, urgent care, hospital, or fpc...) When possible be specific @ -No Did you speak to anyone other than the patient for history (EMS, parent, family, police, friend...)? What history was obtained from this source @ -No Did you review nursing and triage notes (agree or disagree)? Why? @ -I reviewed and agree with nursing and triage notes Were old charts reviewed (outside hosp., previous admission, EMS record, old EKG, old radiological studies, urgent care reports/EKG's, fpc records)? Report findings @ -No old charts were reviewed Differential Diagnosis? @ -Differential Chest Pain: Stable Angina, Unstable Angina, STEMI, NSTEMI Aortic Dissection, Pneumothorax, Musculoskeletal, Esophageal Spasm GERD, Cholecystitis, Pancreatitis, Zoster, this is not meant to be an all-inclusive list. EKG interpreted by me (3pts min.). @ -As above X-rays interpreted by me (1pt min.). @ -Chest x-ray shows no acute abnormality CT interpreted by me (1pt min.). @ -None done U/S interpreted by me (1pt. min.). @ -None done What testing was considered but not performed or refused? (CT, X-rays, U/S, labs)? Why? @ -None What meds were considered but not given or refused? Why? @ -None Did you discuss the management of the patient with other professionals (professionals i.e. , PA, DATA NETWORK ARCHITECT, lab, RT, psych nurse, child welfare social worker, relay telegrapher, teacher, purchasing officer, case technician)? Give summary @ [facility] the patient I wrote admitting orders Was smoking cessation discussed for >3mins.? @ -No Was critical care preformed (if so, how long)? @ -No Were there social determinants of health that impacted care today? How? (Homelessness, low income, unemployed, alcoholism, drug addiction, transportation, low edu. Level, literacy, decrease access to med. care, usp, rehab)? @ -No Was there de-escalation of care discussed even if they declined (Discuss DNR or withdrawal of care, Hospice)? DNR status @ -No What co-morbidities impacted this encounter? (DM, HTN, Smoking, COPD, CAD, Cancer, CVA, ARF, Chemo, Hep., AIDS, mental health diagnosis, sleep apnea, morbid obesity)? @ -None Was patient admitted / discharged? Hospital course, mention meds given and route, prescriptions, significant lab abnormalities, going to OR and other pertinent info. @ -Patient was given the option to stay or go home he did not feel comfortable going home because he felt as though this chest pain was something serious. Patient looked comfortable throughout his ED stay he was walking around the emergency department and is sleeping in his bed on times. I spoke with the [facility]ist agreed to admit the patient admit the patient recommending orders Undiagnosed new problem with uncertain prognosis? @ -No Drug Therapy requiring intensive monitoring for toxicity (Heparin, Nitro, Insulin, Cardizem)? @ -No Were any procedures done? @ -No Diagnosis/symptom? @ -Chest pain Acute, or Chronic, or Acute on Chronic? @ -Acute Uncomplicated (without systemic symptoms) or Complicated (systemic symptoms)? @ -Complicated Side effects of treatment? @ -No Exacerbation, Progression, or Severe Exacerbation? @ -No Poses a threat to life or bodily function? How? (Chest pain, USA, AL, pneumonia, PE, COPD, DKA, ARF, appy, cholecystitis, CVA, Diverticulitis, Homicidal, Suicidal, threat to staff... and all critical care pts) @ -Yes this could lead to an AL and endorgan dysfunction (Haresh Baker) Disposition <Airam Romo - Last Filed: 05/05/25 15:00> Time of Disposition: 19:42 <Haresh Baker - Last Filed: 05/05/25 19:43> Clinical Impression: Chest pain Disposition: ADMITTED IP TO THIS HOSP Referrals: None,Stated [Primary Care Provider] - 1-2 days
--- NOTE | 2025-05-05 17:06 | XR ---
EXAMINATION TYPE: XR chest 2V DATE OF EXAM: 05/05/2025 4:58 PM COMPARISON: Chest radiographs from 12/09/2024. CLINICAL INDICATION: Male, 69 years old with history of Chest Pain; TECHNIQUE: XR chest 2V Frontal and lateral views of the chest. FINDINGS: Lungs/Pleura: There is no evidence of pleural effusion, focal consolidation, or pneumothorax. Pulmonary vascularity: Unremarkable. Heart/mediastinum: Cardiomediastinal silhouette is unremarkable. Musculoskeletal: No acute osseous pathology. There is fixation hardware in the lower cervical spine. IMPRESSION: No acute cardiopulmonary disease/process. [facility], , 05/05/2025 5:03 PM
[2025-05-05] MEDS: ASPIRIN 81 MG PO STA ×2 (18:20→20:05)
[2025-05-05] MEDS: NITROGLYCERIN OINT 1 INCH/GM PACKET TOPICAL STA (18:20)
[2025-05-05 18:33] LABS: Basophils # (A) 0.02 10*3/uL (0.00-0.10); Basophils % (A) 0.6 %; Eosinophils # (A) 0.02 10*3/uL (0.04-0.35); Eosinophils % (A) 0.6 %; HCT 35.2 % (39.6-50.0); HGB 11.7 g/dL (13.0-17.0); Lymphocytes # (A) 0.62 10*3/uL (0.90-5.00); Lymphocytes % (A) 18.6 %; MCH 29.3 pg (27.0-32.0); MCHC 33.2 g/dL (32.0-37.0); MCV 88.2 fL (80.0-97.0); Mean Platelet Volume 8.4 fL (9.5-12.2); Monocytes # (A) 0.22 10*3/uL (0.20-1.00); Monocytes % (A) 6.6 %; Neutrophils # (A) 2.45 10*3/uL (1.80-7.70); Neutrophils % (A) 73.3 %; Platelet Count 438 10*3/uL (140-440); RBC 3.99 10*6/uL (4.40-5.60); RDW 13.9 % (11.5-14.5); WBC 3.34 10*3/uL (4.50-10.00)
[2025-05-05 18:47] LABS: ALT 9 U/L (4-49); AST 16 U/L (17-59); African American GFR (CKD) >90 (>60 ml/min/1.73 sqM); Albumin 4.6 g/dL (3.5-5.0); Alkaline Phosphatase 78 U/L (38-126); Anion Gap 12 mmol/L; Blood Urea Nitrogen 4 mg/dL (9-20); Calcium 10.3 mg/dL (8.4-10.2); Carbon Dioxide 22 mmol/L (22-30); Chloride 105 mmol/L (98-107); Glucose 101 mg/dL (74-99); Magnesium 1.7 mg/dL (1.6-2.3); Non-African American GFR(CKD) >90 (>60 ml/min/1.73 sqM); Potassium 4.2 mmol/L (3.5-5.1); Sodium 139 mmol/L (137-145); Total Bilirubin 0.4 mg/dL (0.2-1.3); Total Protein 7.5 g/dL (6.3-8.2)
[2025-05-05 18:57] LABS: Partial Thromboplastin Time 22.2 sec (22.0-30.0); Prothrombin Time 10.7 sec (10.0-12.5)
[2025-05-05] MEDS: LABETALOL 5 MG/ML VIAL MDV IVP STA ×2 (19:38→20:51)
[2025-05-05] MEDS ORDERED: NITROGLYCERIN SL TABS 0.4 MG TAB SUBLINGUAL PRN (19:43)
[2025-05-06] MEDS: HYDROmorphone 2 MG TAB PO SCH (00:04)
[2025-05-06] MEDS: MORPHINE SULFATE ER 15 MG TABLET PO SCH (00:09)
[2025-05-06] MEDS: NITROGLYCERIN OINT 1 INCH/GM PACKET TOPICAL SCH (00:10)
[2025-05-06] MEDS: carvediloL 12.5 MG TAB PO STA (01:27)
[2025-05-06] MEDS: amLODIPine 5 MG TAB PO STA (01:28)
[2025-05-06] MEDS: HYDROmorphone 2 MG TAB PO PRN (01:46)
[2025-05-06] MEDS: carvediloL 12.5 MG TAB PO SCH (06:55)
[2025-05-06 09:43] LABS: Chol/HDL Ratio 3.32 Ratio; LDL Cholesterol,Calculated 98.1 mg/dL (0.0-131.0)
[2025-05-06] MEDS ORDERED: REGADENOSON 0.4 MG/5 ML SYRINGE IV PRN (10:03)
--- NOTE | 2025-05-06 10:04 | P.CRDCN ---
History of Present Illness History of present illness: HISTORY OF PRESENT ILLNESS: This is a 69-year-old male with a past medical history significant for coronary artery disease with previous stenting, DVT, hypertension, hyperlipidemia, and c hronic pain. Patient follows in the office with Dr. Go but has not been seen in the office since June 2023. We have been asked to see the patient in consultation for chest pain. Patient examined at the bedside in the emergency room. Patient states yesterday he began to have chest discomfort. He states it was in the middle of his chest and felt like a heaviness. He reports radiation to his jaw and into his left arm. He does report taking nitro with some relief. At the time of examination this morning he denies any chest pain or pressure. DIAGNOSTICS: - EKG reveals sinus tachycardia with no signs of acute ischemia.. - Chest xray negative for acute process. - Laboratory data: WBC 3.34. Hemoglobin 11.7. Platelet count 438. Sodium 139. Potassium 4.2. BUN 4. Creatinine 0.62. Troponin negative x 3 - Current home cardiac medications include hydralazine 100 mg twice a day, Zetia 10 mg daily, Eliquis 5 mg twice a day, Plavix 75 mg daily, carvedilol 25 mg twice a day, amlodipine 5 mg daily, Imdur 30 mg daily, Lipitor 40 mg daily - Most recent echocardiogram obtained in April 2023 reveals ejection fraction 60 to 65% with trace TR. - Cardiac catheterization history: June 2023 revealing widely patent LAD and diagonal at the site of stenting. Codominant system. No significant disease in RCA or circumflex. Normal filling pressures. Medical management was recommended. - Patient underwent Lexiscan stress test in December 2023 which was negative for ischemia REVIEW OF SYSTEMS: At the time of my exam: CONSTITUTIONAL: Denies fever or chills. HEENT: Denies blurred vision, vision changes, or eye pain. Denies hemoptysis CARDIOVASCULAR: Denies chest pain. Denies orthopnea. Denies PND. Denies palpitations RESPIRATORY: Denies shortness of breath. GASTROINTESTINAL: Denies abdominal pain. Denies nausea or vomiting. HEMATOLOGIC: Denies bleeding disorders. GENITOURINARY: Denies any blood in urine. SKIN: Denies pruitis. Denies rash. PHYSICAL EXAM: VITAL SIGNS: Reviewed. GENERAL: Well-developed in no acute distress. HEENT: Head is normocephalic. Pupils are equal, round. Sclerae anicteric. Mucous membranes of the mouth are moist. Neck supple. No JVD or thyromegaly LUNGS: Respirations even and unlabored. Lungs essentially clear to auscultation bilaterally. HEART: Regular rate and rhythm. S1 and S2 heard. Systolic murmur noted. ABDOMEN: Soft. Nondistended. Nontender. EXTREMITIES: Normal range of motion. No clubbing or cyanosis. Peripheral pulses intact. No lower extremity edema NEUROLOGIC: Awake and alert. Oriented x 3. ASSESSMENT: Chest pain, troponin negative x 3, ACS ruled out Coronary artery disease with previous stenting History of DVT, on [facility] outpatient Hypertension Hyperlipidemia History of chronic pain with chronic opioid use PLAN: An acute coronary event has been ruled out Resume home cardiac medications Obtain 2D echo to assess cardiac structure and function Patient to undergo Lexiscan stress test on Thursday Further recommendations pending patient course Nurse practitioner note has been reviewed by physician. Signing provider agrees with the documented findings, assessment, and plan of care documented by FIRE SPRINKLER FITTER as a scribe. Past Medical History Past Medical History: Coronary Artery Disease (CAD), Chest Pain / Angina, Deep Vein Thrombosis (DVT), GERD/Reflux, Hyperlipidemia, Hypertension, Osteoarthritis (OA), Thyroid Disorder Additional Past Medical History / Comment(s): Occasional palpitations, gastritis, small hiatal hernia, diverticular dx, pt states years ago he had PUD, chronic low back pain, chronic pain syndrome, migraines, DVT L arm, numbness/ tingling bilateral lower legs, bilateral past R hand fracture, arthritis multiple joints, hyperthyroid, sinus problems. History of Any Multi-Drug Resistant Organisms: None Reported Past Surgical History: Back Surgery, Cholecystectomy, Heart Catheterization With Stent, Orthopedic Surgery Additional Past Surgical History / Comment(s): EGDs/colonoscopies, multiple low back surgeries, bilateral arm and bilateral thigh surgeries for brown recluse spider bites with infection, morphine pain pump insertion and removal due to in fection, PCI with stents, L rotator cuff repair, L knee arthroscopy, cervical fusion/cage, R cataract removal.left knee replacement 10/27/2023 Past Anesthesia/Blood Transfusion Reactions: No Reported Reaction Additional Past Anesthesia/Blood Transfusion Reaction / Comment(s): 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 states he was "down for 12 minutes" lower back surgery Date of Last Stent Placement:: 10/12/17 Past Psychological History: Anxiety Smoking Status: Former smoker Past Alcohol Use History: None Reported Past Drug Use History: None Reported - Past Family History Father Family Medical History: No Reported History Additional Family Medical History / Comment(s): Father had back problems. He lived to be 82 yrs old. Mother History Unknown: Yes Family Medical History: Hypertension, Myocardial Infarction ([place]) Additional Family Medical History / Comment(s): Mother of a MS at the age of 55yrs. Brother(s) Family Medical History: Cancer, COPD Additional Family Medical History / Comment(s): Leukemia Medications and Allergies Home Medications Medication Instructions Recorded Confirmed Type Morphine Sulfate ER [Ms Contin] 15 mg PO Q12HR 03/17/24 05/05/25 History Atorvastatin [Lipitor] 40 mg PO DAILY 30 Days #30 tablet 03/18/24 05/05/25 Rx Apixaban [Eliquis] 5 mg PO BID 05/05/25 05/05/25 History Clopidogrel [Plavix] 75 mg PO DAILY 05/05/25 05/05/25 History Ezetimibe [Zetia] 10 mg PO DAILY 05/05/25 05/05/25 History Gabapentin [Neurontin] 300 mg PO TID 05/05/25 05/05/25 History HYDROmorphone [Dilaudid] 4 mg PO BID PRN 05/05/25 05/05/25 History Isosorbide Mononitrate ER [Imdur] 30 mg PO DAILY 05/05/25 05/05/25 History Pantoprazole [Protonix] 40 mg PO DAILY 05/05/25 05/05/25 History Sucralfate [Carafate] 1 gm PO QID 05/05/25 05/05/25 History Tamsulosin [Flomax] 0.4 mg PO DAILY 05/05/25 05/05/25 History amLODIPine [Norvasc] 5 mg PO DAILY 05/05/25 05/05/25 History carvediloL [Coreg] 25 mg PO BID 05/05/25 05/05/25 History hydrALAZINE HCL [Apresoline] 100 mg PO BID 05/05/25 05/05/25 History Allergies Allergy/AdvReac Type Severity Reaction Status Date / Time codeine Allergy Itching Verified 05/05/25 14:46 ibuprofen [From Motrin] Allergy Rash/Hives Verified 05/05/25 14:46 ketorolac tromethamine Allergy Rash/Hives Verified 05/05/25 14:46 [From Toradol] Physical Exam Vitals: Vital Signs Temp Pulse Resp BP Pulse Ox 05/06/25 09:54 173/111 05/06/25 06:58 88 18 183/114 96 05/06/25 04:31 79 18 167/114 97 05/06/25 01:30 88 20 173/119 96 05/06/25 00:30 91 18 187/112 96 05/06/25 00:12 97 18 187/123 99 05/05/25 20:26 201/135 05/05/25 19:30 98.2 F 110 H 20 191/114 99 05/05/25 18:20 104 H 22 188/114 100 05/05/25 14:44 98.3 F 104 H 18 199/109 99 Results 05/05/25 18:15 05/05/25 18:15 Cardiac Enzymes 05/05/25 05/05/25 05/05/25 Range/Units 18:15 18:15 22:20 AST 16 L (17-59) U/L Troponin I <0.012 <0.012 (0.000-0.034) ng/mL 05/06/25 Range/Units 00:25 AST (17-59) U/L Troponin I <0.012 (0.000-0.034) ng/mL Coagulation 05/05/25 Range/Units 18:15 PT 10.7 (10.0-12.5) sec APTT 22.2 (22.0-30.0) sec Lipids 05/05/25 Range/Units 18:15 Triglycerides 184.00 H (0.00-149.00) mg/dL Cholesterol 193.00 (0.00-200.00) mg/dL HDL Cholesterol 58.10 (40.00-60.00) mg/dL Cholesterol/HDL Ratio 3.32 Ratio CBC 05/05/25 Range/Units 18:15 WBC 3.34 L (4.50-10.00) 10*3/uL RBC 3.99 L (4.40-5.60) 10*6/uL Hgb 11.7 L (13.0-17.0) g/dL Hct 35.2 L (39.6-50.0) % Plt Count 438 (140-440) 10*3/uL Comprehensive Metabolic Panel 05/05/25 Range/Units 18:15 Sodium 139 (137-145) mmol/L Potassium 4.2 (3.5-5.1) mmol/L Chloride 105 (98-107) mmol/L Carbon Dioxide 22 (22-30) mmol/L BUN 4 L (9-20) mg/dL Creatinine 0.62 L (0.66-1.25) mg/dL Glucose 101 H (74-99) mg/dL Calcium 10.3 H (8.4-10.2) mg/dL AST 16 L (17-59) U/L ALT 9 (4-49) U/L Alkaline Phosphatase 78 (38-126) U/L Total Protein 7.5 (6.3-8.2) g/dL Albumin 4.6 (3.5-5.0) g/dL Current Medications Generic Name Dose Route Start Last Admin Trade Name Freq PRN Reason Stop Dose Admin Amlodipine Besylate 5 mg 05/06/25 09:00 Amlodipine 5 Mg Tab PO DAILY [facility] Aspirin 325 mg 05/06/25 09:00 Aspirin 325 Mg Tab PO DAILY [facility] Carvedilol 25 mg 05/06/25 07:30 05/06/25 06:55 Carvedilol 12.5 Mg Tab PO 25 mg BID-W/MEALS [facility] Administration Hydromorphone HCl 4 mg 05/05/25 23:51 05/06/25 01:46 Hydromorphone 2 Mg Tab PO 4 mg BID PRN Administration [employer] Morphine Sulfate 15 mg 05/05/25 23:45 05/06/25 00:09 Morphine Sulfate Er 15 Mg Tablet PO 15 mg Q12HR [facility] Administration Protocol Nitroglycerin 0.4 mg 05/05/25 19:43 Nitroglycerin Sl Tabs 0.4 Mg Tab SUBLINGUAL Q5M PRN Chest Pain Nitroglycerin 1 inch 05/06/25 00:00 05/06/25 06:55 Nitroglycerin Oint 1 Inch/Gm Packet TOPICAL 1 inch Q6HR [facility] Administration 05/05/25 18:15 05/05/25 18:15
[2025-05-06] MEDS: amLODIPine 5 MG TAB PO SCH (10:16)
[2025-05-06] MEDS: APIXABAN 5 MG TAB PO SCH (10:17)
[2025-05-06] MEDS: hydrALAZINE HCL 50 MG TAB PO SCH (10:18)
[2025-05-06] MEDS: CLOPIDOGREL 75 MG TAB PO SCH (10:18)
[2025-05-06] MEDS: ATORVASTATIN 40 MG TAB PO SCH (10:18)
[2025-05-06] MEDS: EZETIMIBE 10 MG TAB PO SCH (10:18)
[2025-05-06] MEDS: ISOSORBIDE MONONITRATE ER 30 MG TAB.ER.24H PO SCH (10:19)
[2025-05-06] MEDS: ASPIRIN 325 MG TAB PO SCH (10:23)
[2025-05-06] MEDS ORDERED: HYDROMORPHONE 4 MG PO PRN (12:58)
[2025-05-06] MEDS ORDERED: FLUTICASONE NASAL 50MCG/SPRAY 16GM BTL EA NOSTRIL PRN (13:02)
--- NOTE | 2025-05-06 13:05 | P.HPIM ---
History of Present Illness 69-year-old male with history of coronary disease and previous stenting in the past came in with left pressure-like sensation on the left side of the chest radiating to the neck and jaw. Pain is a heaviness moderate severity 6/10 in s everity no relief with nitro denied any lightheadedness diaphoresis associate with that but denied any shortness of breath associated with that. Patient had an EKG which showed sinus tachycardia without any acute ischemia presently sinus rhythm without any tachycardia neck chest x-ray did not show any significant abnormality troponins were negative. Patient had an echocardiogram in 2022 which showed EF of around 60 to 65% with trace TR in 2022 patient had a cardiac evaluation which showed widely patent LAD and diagonal no significant disease in RCA or circumflex. Patient had a Lexiscan stress test in December 2023 which is negative for any inducible ischemia. REVIEW OF SYSTEMS: All other systems are negative except those mentioned in the HPI PHYSICAL EXAMINATION: GENERAL: The patient is alert and oriented x3, not in any acute distress. Well developed, well nourished. HEENT: Pupils are round and equally reacting to light. EOMI. No scleral icterus. No conjunctival pallor. Normocephalic, atraumatic. No pharyngeal erythema. No thyromegaly. CARDIOVASCULAR: S1 and S2 present. No murmurs, rubs, or gallops. PULMONARY: Chest is clear to auscultation, no wheezing or crackles. ABDOMEN: Soft, nontender, nondistended, normoactive bowel sounds. No palpable organomegaly. MUSCULOSKELETAL: No joint swelling or deformity. EXTREMITIES: No cyanosis, clubbing, or pedal edema. NEUROLOGICAL: Gross neurological examination did not reveal any focal deficits. SKIN: No rashes. Assessment and plan -Chest pain: Ruled out acute coronary syndromes cardiology evaluated the patient they are recommending stress test on Thursday echocardiogram will be obtained as well - Coronary artery disease history - History of DVT in the past for which patient is on Eliquis - Hypertension patient is on Norvasc which will be resumed patient blood pressure is slightly higher at this time we will monitor and will titrate medications as needed - Hyperlipidemia - Chronic low back pain for which patient is onopiates chronically which were resumed DVT prophylaxis: On Eliquis which was resumed - Past Medical History Past Medical History: Coronary Artery Disease (CAD), Chest Pain / Angina, Deep Vein Thrombosis (DVT), GERD/Reflux, Hyperlipidemia, Hypertension, Osteoarthritis (OA), Thyroid Disorder Additional Past Medical History / Comment(s): Occasional palpitations, gastritis, small hiatal hernia, diverticular dx, pt states years ago he had PUD, chronic low back pain, chronic pain syndrome, migraines, DVT L arm, n umbness/tingling bilateral lower legs, bilateral past R hand fracture, arthritis multiple joints, hyperthyroid, sinus problems. History of Any Multi-Drug Resistant Organisms: None Reported Past Surgical History: Back Surgery, Cholecystectomy, Heart Catheterization With Stent, Orthopedic Surgery Additional Past Surgical History / Comment(s): EGDs/colonoscopies, multiple low back surgeries, bilateral arm and bilateral thigh surgeries for brown recluse spider bites with infection, morphine pain pump insertion and removal due to infection, PCI with stents, L rotator cuff repair, L knee arthroscopy, cervical fusion/cage, R cataract removal.left knee replacement 10/27/2023 Past Anesthesia/Blood Transfusion Reactions: No Reported Reaction Additional Past Anesthesia/Blood Transfusion Reaction / Comment(s): 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 states he was "down for 12 minutes" lower back surgery Date of Last Stent Placement:: 10/12/17 Past Psychological History: Anxiety Smoking Status: Former smoker Past Alcohol Use History: None Reported Past Drug Use History: None Reported - Past Family History Father Family Medical History: No Reported History Additional Family Medical History / Comment(s): Father had back problems. He lived to be 82 yrs old. Mother History Unknown: Yes Family Medical History: Hypertension, Myocardial Infarction ([place]) Additional Family Medical History / Comment(s): Mother of a [place] at the age of 55yrs. Brother(s) Family Medical History: Cancer, COPD Additional Family Medical History / Comment(s): Leukemia Medications and Allergies Home Medications Medication Instructions Recorded Confirmed Type Morphine Sulfate ER [Ms Contin] 15 mg PO Q12HR 03/17/24 05/05/25 History Atorvastatin [Lipitor] 40 mg PO DAILY 30 Days #30 tablet 03/18/24 05/05/25 Rx Apixaban [Eliquis] 5 mg PO BID 05/05/25 05/05/25 History Clopidogrel [Plavix] 75 mg PO DAILY 05/05/25 05/05/25 History Ezetimibe [Zetia] 10 mg PO DAILY 05/05/25 05/05/25 History Gabapentin [Neurontin] 300 mg PO TID 05/05/25 05/05/25 History HYDROmorphone [Dilaudid] 4 mg PO BID PRN 05/05/25 05/05/25 History Isosorbide Mononitrate ER [Imdur] 30 mg PO DAILY 05/05/25 05/05/25 History Pantoprazole [Protonix] 40 mg PO DAILY 05/05/25 05/05/25 History Sucralfate [Carafate] 1 gm PO QID 05/05/25 05/05/25 History Tamsulosin [Flomax] 0.4 mg PO DAILY 05/05/25 05/05/25 History amLODIPine [Norvasc] 5 mg PO DAILY 05/05/25 05/05/25 History carvediloL [Coreg] 25 mg PO BID 05/05/25 05/05/25 History hydrALAZINE HCL [Apresoline] 100 mg PO BID 05/05/25 05/05/25 History Allergies Allergy/AdvReac Type Severity Reaction Status Date / Time codeine Allergy Itching Verified 05/05/25 14:46 ibuprofen [From Motrin] Allergy Rash/Hives Verified 05/05/25 14:46 ketorolac tromethamine Allergy Rash/Hives Verified 05/05/25 14:46 [From Toradol] Physical Exam Vitals: Vital Signs Temp Pulse Resp BP Pulse Ox 05/06/25 11:28 81 16 174/111 96 05/06/25 09:54 173/111 05/06/25 06:58 88 18 183/114 96 05/06/25 04:31 79 18 167/114 97 05/06/25 01:30 88 20 173/119 96 05/06/25 00:30 91 18 187/112 96 05/06/25 00:12 97 18 187/123 99 05/05/25 20:26 201/135 05/05/25 19:30 98.2 F 110 H 20 191/114 99 05/05/25 18:20 104 H 22 188/114 100 05/05/25 14:44 98.3 F 104 H 18 199/109 99 Results CBC & Chem 7: 05/05/25 18:15 05/05/25 18:15 Labs: Abnormal Lab Results - Last 24 Hours (Table) 05/05/25 05/05/25 05/05/25 Range/Units 18:15 18:15 18:15 WBC 3.34 L (4.50-10.00) 10*3/uL RBC 3.99 L (4.40-5.60) 10*6/uL Hgb 11.7 L (13.0-17.0) g/dL Hct 35.2 L (39.6-50.0) % MPV 8.4 L (9.5-12.2) fL Lymphocytes # 0.62 L (0.90-5.00) 10*3/uL Eosinophils # 0.02 L (0.04-0.35) 10*3/uL BUN 4 L (9-20) mg/dL Creatinine 0.62 L (0.66-1.25) mg/dL Glucose 101 H (74-99) mg/dL Calcium 10.3 H (8.4-10.2) mg/dL AST 16 L (17-59) U/L Triglycerides 184.00 H (0.00-149.00) mg/dL
[2025-05-06] MEDS: PANTOPRAZOLE 40 MG TABLET PO SCH (13:31)
[2025-05-06] MEDS: SUCRALFATE 1 GM TAB PO SCH (13:31)
[2025-05-06] MEDS: HYDROmorphone 1 MG/ML 1 ML SYRINGE IVP STA (13:32)
[2025-05-06] MEDS: GABAPENTIN 300 MG CAP PO SCH (15:54)
[2025-05-06] MEDS ORDERED: MORPHINE SULFATE ER 15 MG TABLET PO SCH (21:00)
--- NOTE | 2025-05-07 09:04 | CA ---
Transthoracic Echo Report Name: Salomon Johnson Age: 69 Gender: M : 1955 Exam Date: 05/06/2025 13:46 Exam Location: [place] [facility] Ht (in): 71 Wt (lb): 183 Ordering Physician: Rowan Rosenberg Attending/Referring Phys: [id number], Chet Door Liner Angelica Tellez, [id number] Procedure CPT: Indications: Chest pain history of CAD Cardiac Hx: Technical Quality: Good Contrast 1: Total Dose (mL): Contrast 2: Total Dose (mL): MEASUREMENTS (Male / Female) Normal Values 2D ECHO LV Diastolic Diameter PLAX 3.4 cm 4.2 - 5.9 / 3.9 - 5.3 cm LV Systolic Diameter PLAX 2.2 cm IVS Diastolic Thickness 1.5 cm 0.6 - 1.0 / 0.6 - 0.9 cm LVPW Diastolic Thickness 1.5 cm 0.6 - 1.0 / 0.6 - 0.9 cm LV Relative Wall Thickness 0.9 RV Internal Dim ED PLAX 4.6 cm LA Systolic Diameter LX 3.6 cm 3.0 - 4.0 / 2.7 - 3.8 cm LA Volume 68.7 cm??? 18 - 58 / 22 - 52 cm??? LA Volume Index 33.5 cm???/m??? 16 - 28 cm???/m??? DOPPLER MV Area PHT 2.9 cm??? Mitral E Point Velocity 50.4 cm/s Mitral A Point Velocity 78.3 cm/s Mitral E to A Ratio 0.6 MV Deceleration Time 258.2 ms TR Peak Velocity 169.6 cm/s TR Peak Gradient 11.5 mmHg FINDINGS Left Ventricle Left ventricular ejection fraction is estimated at 60%. Moderate concentric left ventricular hypertrophy. Normal left ventricular systolic function with no obvious regional wall motion abnormalities. Left ventricular cavity size normal. Right Ventricle Normal right ventricular size and function. Right ventricular systolic pressure within normal limits. Right Atrium Normal right atrial size. Left Atrium Mildly increased left atrial volume. Mildly increased left atrial area. Mitral Valve Mitral valve thickened. Mitral annular calcification. No mitral stenosis. Trace mitral regurgitation. Aortic Valve Trileaflet aortic valve. Diffuse thickening (sclerosis) of the aortic valve cusps without reduced excursion. No aortic stenosis. Trace aortic regurgitation. Tricuspid Valve Structurally normal tricuspid valve. No tricuspid stenosis. Trace tricuspid regurgitation. Pulmonic Valve Structurally normal pulmonic valve. No pulmonic stenosis. Trace pulmonic regurgitation. Pericardium No pericardial effusion. Aorta Aortic annulus normal. CONCLUSIONS Normal left ventricular size and systolic function Previewed by: Dr. Yogesh Simmons MD (Electronically Signed) Final Date: 07 May 2025 09:03
[2025-05-07] MEDS: amLODIPine 10 MG TAB PO SCH (09:05)
[2025-05-07] MEDS: TAMSULOSIN 0.4 MG CAP.ER.24H PO SCH (09:06)
--- NOTE | 2025-05-07 09:54 | P.PN ---
Subjective HISTORY OF PRESENT ILLNESS: This is a 69-year-old male with a past medical history significant for coronary artery disease with previous stenting, DVT, hypertension, hyperlipidemia, and chronic pain. Patient follows in the office with Dr. Go but has not been seen in the office since June 2023. We have been asked to see the patient in cons ultation for chest pain. Patient examined at the bedside in the emergency room. Patient states yesterday he began to have chest discomfort. He states it was in the middle of his chest and felt like a heaviness. He reports radiation to his jaw and into his left arm. He does report taking nitro with some relief. At the time of examination this morning he denies any chest pain or pressure. DIAGNOSTICS: - EKG reveals sinus tachycardia with no signs of acute ischemia.. - Chest xray negative for acute process. - Laboratory data: WBC 3.34. Hemoglobin 11.7. Platelet count 438. Sodium 139. Potassium 4.2. BUN 4. Creatinine 0.62. Troponin negative x 3 - Current home cardiac medications include hydralazine 100 mg twice a day, Zetia 10 mg daily, Eliquis 5 mg twice a day, Plavix 75 mg daily, carvedilol 25 mg twice a day, amlodipine 5 mg daily, Imdur 30 mg daily, Lipitor 40 mg daily - Most recent echocardiogram obtained in April 2023 reveals ejection fraction 60 to 65% with trace TR. - Cardiac catheterization history: June 2023 revealing widely patent LAD and diagonal at the site of stenting. Codominant system. No significant disease in RCA or circumflex. Normal filling pressures. Medical management was recommended. - Patient underwent Lexiscan stress test in December 2023 which was negative for ischemia 05/07/2025 Patient examined this morning at the bedside. Patient currently denies chest pain or pressure. He denies shortness of breath. Blood pressures are elevated with a systolic ranging between [id number]. Echocardiogram completed revealing ejection fraction 60%, trace MR, trace AR, trace TR PHYSICAL EXAM: VITAL SIGNS: Reviewed. GENERAL: Well-developed in no acute distress. HEENT: Head is normocephalic. Pupils are equal, round. Sclerae anicteric. Mucous membranes of the mouth are moist. Neck supple. No JVD or thyromegaly LUNGS: Respirations even and unlabored. Lungs essentially clear to auscultation bilaterally. HEART: Regular rate and rhythm. S1 and S2 heard. Systolic murmur noted. ABDOMEN: Soft. Nondistended. Nontender. EXTREMITIES: Normal range of motion. No clubbing or cyanosis. Peripheral pulses intact. No lower extremity edema NEUROLOGIC: Awake and alert. Oriented x 3. ASSESSMENT: Chest pain, troponin negative x 3, ACS ruled out Coronary artery disease with previous stenting History of DVT, on Eliquis outpatient Hypertension Hyperlipidemia History of chronic pain with chronic opioid use PLAN: Increase amlodipine to 10 mg daily for optimal blood pressure control Continue additional cardiac medications including Eliquis, Lipitor, carvedilol, Zetia, hydralazine, and Imdur N.p.o. at midnight Patient to undergo Lexiscan stress test on Thursday Further recommendations pending patient course Nurse practitioner note has been reviewed by physician. Signing provider agrees with the documented findings, assessment, and plan of care documented by CHOCOLATE DIPPER as a scribe. Objective - Vital Signs Vital signs: Vital Signs Temp 97.8 F 05/07/25 09:02 Pulse 80 05/07/25 09:02 Resp 18 05/07/25 09:02 BP 149/80 05/07/25 09:02 Pulse Ox 98 05/07/25 09:02 FiO2 Intake & Output 05/06/25 05/07/25 05/07/25 18:59 06:59 18:59 Intake Total 232 480 5 Balance 232 480 5 Weight 83.007 kg 83.1 kg Intake: IV 10 5 Invasive Line 1 10 5 Oral 222 480 Other: Voiding Method Toilet Toilet Urinal Urinal # Voids 2 - Labs CBC & Chem 7: 05/05/25 18:15 05/05/25 18:15
--- NOTE | 2025-05-07 11:41 | P.PN ---
Subjective 69-year-old male with history of coronary disease and previous stenting in the past came in with left pressure-like sensation on the left side of the chest radiating to the neck and jaw. Pain is a heaviness moderate severity 6/10 in severity no relief with nitro denied any lightheadedness diaphoresis associate with that but denied any shortness of breath associated with that. Patient had an EKG which showed sinus tachycardia without any acute ischemia presently sinus rhythm without any tachycardia neck chest x-ray did not show any significant abnormality troponins were negative. Patient had an echocardiogram in 2022 which showed EF of around 60 to 65% with trace TR in 2022 patient had a cardiac evaluation which showed widely patent LAD and diagonal no significant disease in RCA or circumflex. Patient had a Lexiscan stress test in December 2023 which is negative for any inducible ischemia. 05/07/2025 Patient blood pressure is still high because of which cardiology increase the dose of amlodipine to 10 mg. Patient will undergo stress test tomorrow. REVIEW OF SYSTEMS: All other systems are negative except those mentioned in the HPI PHYSICAL EXAMINATION: GENERAL: The patient is alert and oriented x3, not in any acute distress. Well developed, well nourished. HEENT: Pupils are round and equally reacting to light. EOMI. No scleral icterus. No conjunctival pallor. Normocephalic, atraumatic. No pharyngeal erythema. No thyromegaly. CARDIOVASCULAR: S1 and S2 present. No murmurs, rubs, or gallops. PULMONARY: Chest is clear to auscultation, no wheezing or crackles. ABDOMEN: Soft, nontender, nondistended, normoactive bowel sounds. No palpable organomegaly. MUSCULOSKELETAL: No joint swelling or deformity. EXTREMITIES: No cyanosis, clubbing, or pedal edema. NEUROLOGICAL: Gross neurological examination did not reveal any focal deficits. SKIN: No rashes. Assessment and plan -Chest pain: Ruled out acute coronary syndromes cardiology evaluated the patient they are recommending stress test on Thursday echocardiogram did not show any wall motion abnormalities or any valvular abnormalities - Coronary artery disease history - History of DVT in the past for which patient is on Eliquis - Hypertension patient is on Norvasc dose was increased earlier today - Hyperlipidemia - Chronic low back pain for which patient is on opiates chronically which were resumed DVT prophylaxis: On Eliquis Objective - Vital Signs Vital signs: Vital Signs Temp 97.8 F 05/07/25 09:02 Pulse 80 05/07/25 09:02 Resp 18 05/07/25 09:02 BP 149/80 05/07/25 09:02 Pulse Ox 98 05/07/25 09:02 FiO2 Intake & Output 05/06/25 05/07/25 05/07/25 18:59 06:59 18:59 Intake Total 232 480 5 Balance 232 480 5 Weight 83.007 kg 83.1 kg Intake: IV 10 5 Invasive Line 1 10 5 Oral 222 480 Other: Voiding Method Toilet Toilet Toilet Urinal Urinal Urinal # Voids 2 - Labs CBC & Chem 7: 05/05/25 18:15 05/05/25 18:15
[2025-05-07] MEDS: HYDROmorphone 1 MG/ML 1 ML SYRINGE IVP STA (23:56)
[2025-05-08] MEDS: HYDROmorphone 1 MG/ML 1 ML SYRINGE IVP STA (00:04)
[2025-05-08 04:44] VITALS: RESP 16
[2025-05-08] MEDS ORDERED: CAFFEINE CITRATE 60 MG/3 ML VIAL IV PRN (06:00)
[2025-05-08] MEDS ORDERED: AMINOPHYLLINE 500 MG/20 ML VIAL IV PRN (06:00)
[2025-05-08 09:13] VITALS: TEMP 97.5
[2025-05-08 11:42] VITALS: BP 178/108; PULSE 80
--- NOTE | 2025-05-08 11:59 | NM ---
EXAMINATION TYPE: NM stress lexiscan cardiolite DATE OF EXAM: 05/08/2025 COMPARISON: NONE CLINICAL INDICATION: Male, 69 years old with history of CP, TECHNIQUE: After the intravenous administration of 10.7 mCi Tc 99m Sestamibi - Cardiolite resting SP ECT images acquired 55 minutes post injection. At peak stress 25.5 mCi Tc 99m Sestamibi - Stress images obtained 30 minutes post injection The patient was stressed with 0.4mg Lexiscan. FINDINGS: No fixed defects are evident. No reversible stress defects on Spect images. Wall motion is normal. Ejection fraction is calculated to be 58 %. IMPRESSION: 1. No stress-induced ischemic changes. [facility], , 05/08/2025 11:57 AM
--- NOTE | 2025-05-08 13:02 | P.PN ---
Subjective Progress Note Date: 05/08/25 HISTORY OF PRESENT ILLNESS: This is a 69-year-old male with a past medical history significant for coronary artery disease with previous stenting, DVT, hypertension, hyperlipidemia, and chronic pain. Patient follows in the office with Dr. Go but has not been seen in the office since June 2023. We have been asked to see the patient in consultation for chest pain. Patient examined at the bedside in the emergency room. Patient states yesterday he began to have chest discomfort. He states it was in the middle of his chest and felt like a heaviness. He reports radiation to his jaw and into his left arm. He does report taking nitro with some relief. At the time of examination this morning he denies any chest pain or pressure. DIAGNOSTICS: - EKG reveals sinus tachycardia with no signs of acute ischemia.. - Chest xray negative for acute process. - Laboratory data: WBC 3.34. Hemoglobin 11.7. Platelet count 438. Sodium 139. Potassium 4.2. BUN 4. Creatinine 0.62. Troponin negative x 3 - Current home cardiac medications include hydralazine 100 mg twice a day, Zetia 10 mg daily, Eliquis 5 mg twice a day, Plavix 75 mg daily, carvedilol 25 mg twice a day, amlodipine 5 mg daily, Imdur 30 mg daily, Lipitor 40 mg daily - Most recent echocardiogram obtained in April 2023 reveals ejection fraction 60 to 65% with trace TR. - Cardiac catheterization history: June 2023 revealing widely patent LAD and diagonal at the site of stenting. Codominant system. No significant disease in RCA or circumflex. Normal filling pressures. Medical management was recommended. - Patient underwent Lexiscan stress test in December 2023 which was negative for ischemia 05/07/2025 Patient examined this morning at the bedside. Patient currently denies chest pain or pressure. He denies shortness of breath. Blood pressures are elevated with a systolic ranging between [id number]. Echocardiogram completed revealing ejection fraction 60%, trace MR, trace AR, trace TR 05/08/2025 Patient is scheduled for Lexiscan stress test today. PHYSICAL EXAM: VITAL SIGNS: Reviewed. GENERAL: Well-developed in no acute distress. HEENT: Head is normocephalic. Pupils are equal, round. Sclerae anicteric. Mucous membranes of the mouth are moist. Neck supple. No JVD or thyromegaly LUNGS: Respirations even and unlabored. Lungs essentially clear to auscultation bilaterally. HEART: Regular rate and rhythm. S1 and S2 heard. Systolic murmur noted. ABDOMEN: Soft. Nondistended. Nontender. EXTREMITIES: Normal range of motion. No clubbing or cyanosis. Peripheral pulses intact. No lower extremity edema NEUROLOGIC: Awake and alert. Oriented x 3. ASSESSMENT: Chest pain, troponin negative x 3, ACS ruled out Coronary artery disease with previous stenting History of DVT, on Eliquis outpatient Hypertension Hyperlipidemia History of chronic pain with chronic opioid use PLAN: Increase amlodipine to 10 mg daily for optimal blood pressure control Continue additional cardiac medications including Eliquis, Lipitor, carvedilol, Zetia, hydralazine, and Imdur N.p.o. at midnight Patient to undergo Lexiscan stress test today Further recommendations pending patient course Nurse practitioner note has been reviewed by physician. Signing provider agrees with the documented findings, assessment, and plan of care documented by CHIEF TRANSFER AND PUMPHOUSE OPERATOR as a scribe. Objective - Vital Signs Vital signs: Vital Signs Temp 98.4 F 05/07/25 19:52 Pulse 87 05/08/25 04:43 Resp 16 05/08/25 04:43 BP 144/75 05/08/25 04:43 Pulse Ox 100 05/08/25 04:43 FiO2 Intake & Output 05/07/25 05/08/25 05/08/25 18:59 06:59 18:59 Intake Total 10 240 Balance 10 240 Weight 83.2 kg Intake: IV 10 Invasive Line 1 10 Oral 0 240 Other: Voiding Method Toilet Toilet Urinal Urinal # Voids 1 1 # Bowel Movements 1 - Labs CBC & Chem 7: 05/05/25 18:15 05/05/25 18:15
--- NOTE | 2025-05-08 13:18 | CA ---
Lexiscan Nuclear Stress Test Report Name: Salomon Johnson Exam Date: 05/08/2025 10:28 Exam Location: [place] Stress Ht (in): 71 Wt (lb): 183 BSA: 2.03 Ordering Phys: Rowan Rosenberg Referring Phys: HENRI Technologist: MARCOS ARBOLEDA Age: 69 Gender: M : 1955 Procedure CPT: Indications: Reflex order-Stress test ICD-10 Codes: Patient History: CP, CARLOS, PALP, NUMBNESS, HTN, CVA, HIGH CHOL, FAMILY HX, CATH W 3 PTCA. Medications: SEE CHART,,, Meds past 24 hrs: Pretest Chest Pain: STRESS TEST Lexiscan Protocol Exercise Duration (min:sec): 02:[address] Depressions (mm): Angina Score: Naqvi Score: Resting HR (bpm): 78 Peak HR (bpm): 92 Resting BP (mmHg): 146 / 102 Peak BP (mmHg): 147 / 80 MPHR: 152 Target HR: 129 % MPHR: 61 METS: 1.0 Total Dose: Peak Dose: Atropine: Double Product: 04429 BP Response: Stress Termination: INFUSION COMPLETE Stress Symptoms: NO SYMPTOMS Stress Summary: ECG ANALYSIS Resting ECG: Stress ECG: CONCLUSIONS At baseline EKG showed normal sinus rhythm, normal axis, no significant ST or T wave abnormalities. patient recieved IV infusion of Lexiscan 0.4mg and at peak infusion EKG showed no change from baseline Conclusions: 1. Normal EKG response to Lexiscan infusion 2. Nuclear imaging to be reported separately. Dr. Giovanni Bush DO (Electronically Signed) Final Date: 08 May 2025 13:17
[2025-05-08 13:31] LABS: African American GFR (CKD) >90 (>60 ml/min/1.73 sqM); Anion Gap 11 mmol/L; Blood Urea Nitrogen 8 mg/dL (9-20); Calcium 9.3 mg/dL (8.4-10.2); Carbon Dioxide 19 mmol/L (22-30); Chloride 106 mmol/L (98-107); Glucose 125 mg/dL (74-99); Non-African American GFR(CKD) >90 (>60 ml/min/1.73 sqM); Potassium 4.2 mmol/L (3.5-5.1); Sodium 136 mmol/L (137-145)
== END 2025-05-08 15:37 | disposition home or self-care (01) ==
LOC: EC 14:40 → 6NMEDSUR 19:45 → 3SCARD 05-06 12:04
PROVIDERS: ADMIT Hospitalist; ATTEND Hospitalist
DX: R07.9 Chest pain, unspecified (principal); I25.10 Atherosclerotic heart disease of native coronary artery without angina pectoris; K21.9 Gastro-esophageal reflux disease without esophagitis; E78.5 Hyperlipidemia, unspecified; I10 Essential (primary) hypertension; F41.9 Anxiety disorder, unspecified; G89.29 Other chronic pain; M54.50 Low back pain, unspecified; Z86.718 Personal history of other venous thrombosis and embolism; Z87.891 Personal history of nicotine dependence; Z95.5 Presence of coronary angioplasty implant and graft; Z79.01 Long term (current) use of anticoagulants; Z79.02 Long term (current) use of antithrombotics/antiplatelets; Z79.82 Long term (current) use of aspirin; Z79.899 Other long term (current) drug therapy; Z79.891 Long term (current) use of opiate analgesic; Z88.5 Allergy status to narcotic agent; Z88.6 Allergy status to analgesic agent
CPT/HCPCS: 96376 ×2; 96374; 96375; 99285; 36415; 93005; 93017; 93306; 80061; 80053; 80048; 83735; 84484 ×2; 85025; 85610; 85730; 71046; 78452; G0378 ×4; A9500; J1171 ×2; J1920

== ENCOUNTER 2025-05-08 15:57 | Emergency (ER) | payer MEDICARE ==
--- NOTE | 2025-05-08 16:17 | ED ---
Headache HPI - General Chief Complaint: Headache Stated Complaint: headache Time Seen by Provider: 05/08/25 16:14 Source: RN notes reviewed, old records reviewed Mode of arrival: ambulatory Limitations: no limitations - History of Present Illness Initial Comments: This is a 69-year-old male well-known to this ER coming in for headache. Intractable headache with nausea and vomiting patient's chronic migraine with no new trauma or fever. MD Complaint: headache, "migraine" -: days(s) Onset Description: gradual Location: frontal, temporal Severity: moderate, severe Severity scale (1-10): 10 Quality: constant, similar to previous headaches Consistency: constant Improves With: nothing Worsens With: none Context: other (0) Associated Symptoms: nausea, vomiting Other Symptoms: other (0) Treatments Prior to Arrival: none - Related Data Home Medications Medication Instructions Recorded Confirmed Morphine Sulfate ER [Ms Contin] 15 mg PO Q12HR 03/17/24 05/05/25 Apixaban [Eliquis] 5 mg PO BID 05/05/25 05/05/25 Clopidogrel [Plavix] 75 mg PO DAILY 05/05/25 05/05/25 Ezetimibe [Zetia] 10 mg PO DAILY 05/05/25 05/05/25 Gabapentin [Neurontin] 300 mg PO TID 05/05/25 05/05/25 HYDROmorphone [Dilaudid] 4 mg PO BID PRN 05/05/25 05/05/25 Isosorbide Mononitrate ER [Imdur] 30 mg PO DAILY 05/05/25 05/05/25 Pantoprazole [Protonix] 40 mg PO DAILY 05/05/25 05/05/25 Sucralfate [Carafate] 1 gm PO QID 05/05/25 05/05/25 Tamsulosin [Flomax] 0.4 mg PO DAILY 05/05/25 05/05/25 carvediloL [Coreg] 25 mg PO BID 05/05/25 05/05/25 hydrALAZINE HCL [Apresoline] 100 mg PO BID 05/05/25 05/05/25 Previous Rx's Medication Instructions Recorded Atorvastatin [Lipitor] 40 mg PO DAILY 30 Days #30 tablet 03/18/24 Nitroglycerin Sl Tabs [Nitrostat] 0.4 mg SUBLINGUAL Q5M PRN #25 tab 05/08/25 amLODIPine [Norvasc] 10 mg PO DAILY #30 tab 05/08/25 Allergies Allergy/AdvReac Type Severity Reaction Status Date / Time codeine Allergy Itching Verified 05/05/25 14:46 ibuprofen [From Motrin] Allergy Rash/Hives Verified 05/05/25 14:46 ketorolac tromethamine Allergy Rash/Hives Verified 05/05/25 14:46 [From Toradol] Review of Systems ROS Statement: Those systems with pertinent positive or pertinent negative responses have been documented in the HPI. ROS Other: All systems not noted in ROS Statement are negative. Past Medical History Past Medical History: Coronary Artery Disease (CAD), Chest Pain / Angina, Deep Vein Thrombosis (DVT), GERD/Reflux, Hyperlipidemia, Hypertension, Osteoarthritis (OA), Thyroid Disorder Additional Past Medical History / Comment(s): Occasional palpitations, gastritis, small hiatal hernia, diverticular dx, pt states years ago he had PUD, chronic low back pain, chronic pain syndrome, migraines, DVT L arm, numbness/tingling bilateral lower legs, bilateral past R hand fracture, arthritis multiple joints, hyperthyroid, sinus problems. History of Any Multi-Drug Resistant Organisms: None Reported Past Surgical History: Back Surgery, Cholecystectomy, Heart Catheterization With Stent, Orthopedic Surgery Additional Past Surgical History / Comment(s): EGDs/colonoscopies, multiple low back surgeries, bilateral arm and bilateral thigh surgeries for brown recluse spider bites with infection, morphine pain pump insertion and removal due to infection, PCI with stents, L rotator cuff repair, L knee arthroscopy, cervical fusion/cage, R cataract removal.left knee replacement 10/27/2023 Past Anesthesia/Blood Transfusion Reactions: No Reported Reaction Additional Past Anesthesia/Blood Transfusion Reaction / Comment(s): 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 states he was "down for 12 minutes" lower back surgery Date of Last Stent Placement:: 10/12/17 Past Psychological History: Anxiety Smoking Status: Former smoker Past Alcohol Use History: None Reported Past Drug Use History: None Reported - Past Family History Father Family Medical History: No Reported History Additional Family Medical History / Comment(s): Father had back problems. He lived to be 82 yrs old. Mother History Unknown: Yes Family Medical History: Hypertension, Myocardial Infarction ([place]) Additional Family Medical History / Comment(s): Mother of a [place] at the age of 55yrs. Brother(s) Family Medical History: Cancer, COPD Additional Family Medical History / Comment(s): Leukemia General Exam Limitations: no limitations General appearance: alert, in no apparent distress Head exam: Present: atraumatic, normocephalic, normal inspection Eye exam: Present: normal appearance, PERRL, EOMI. Absent: scleral icterus, conjunctival injection, periorbital swelling ENT exam: Present: normal exam, mucous membranes moist Neck exam: Present: normal inspection. Absent: tenderness, meningismus, lymphadenopathy Respiratory exam: Present: normal lung sounds bilaterally. Absent: respiratory distress, wheezes, rales, rhonchi, stridor Cardiovascular Exam: Present: normal rhythm, tachycardia, normal heart sounds. Absent: systolic murmur, diastolic murmur, rubs, gallop, clicks GI/Abdominal exam: Present: soft, normal bowel sounds. Absent: distended, tenderness, guarding, rebound, rigid Extremities exam: Present: normal inspection, full ROM, normal capillary refill. Absent: tenderness, pedal edema, joint swelling, calf tenderness Back exam: Present: normal inspection Neurological exam: Present: alert, oriented X3, CN II-XII intact Psychiatric exam: Present: normal affect, normal mood Skin exam: Present: warm, dry, intact, normal color. Absent: rash Course Vital Signs 05/08/25 05/08/25 16:01 16:24 Temperature 97.9 F Pulse Rate 116 H 118 H Respiratory 15 Rate Blood Pressure 160/127 187/127 O2 Sat by Pulse 98 99 Oximetry - Reevaluation(s) Reevaluation #1: 05/08/25 16:57 Medical records reviewed Reevaluation #2: 05/08/25 16:57 Patient's symptoms improved Reevaluation #3: 05/08/25 16:57 Patient informed of results questions answered Reevaluation #4: Was pt. sent in by a medical professional or institution (, PA, SENIOR TEST ANALYST, urgent care, hospital, or halfway...) When possible be specific @ -no Did you speak to anyone other than the patient for history (EMS, parent, family, police, friend...)? What history was obtained from this source @ -no Did you review nursing and triage notes (agree or disagree)? Why? @ -agree Are old charts reviewed (outside hosp., previous admission, EMS record, old EKG, old radiological studies, urgent care reports/EKG's, halfway records)? Report findings @ -yes Differential Diagnosis (chest pain, altered mental status, abdominal pain women, abdominal pain men, vaginal bleeding, weakness, fever, dyspnea, syncope, headache, dizziness, GI bleed, back pain, seizure, CVA, palpatations, mental health, musculoskeletal)? @ -prior EKG interpreted by me (3pts min.). @ -yes X-rays interpreted by me (1pt min.). @ -yes negative for acute disease CT interpreted by me (1pt min.). @ -no U/S interpreted by me (1pt. min.). @ -no What testing was considered but not performed or refused? (CT, X-rays, U/S, labs)? Why? @ -none What meds were considered but not given or refused? Why? @ -none Did you discuss the management of the patient with other professionals (pro fessionals i.e. , PA, SENIOR TEST ANALYST, lab, RT, psych nurse, manager social services, blood bank technologist, teacher, supervisor dog license officer, continuous pillowcase cutter)? Give summary @ -no Was smoking cessation discussed for >3mins.? @ -no Was critical care preformed (if so, how long)? @ -no Were there social determinants of health that impacted care today? How? (Homelessness, low income, unemployed, alcoholism, drug addiction, transportation, low edu. Level, literacy, decrease access to med. care, senior care, rehab)? @ -none Was there de-escalation of care discussed even if they declined (Discuss DNR or withdrawal of care, Hospice)? DNR status @ -no What co-morbidities impacted this encounter? (DM, HTN, Smoking, COPD, CAD, Cancer, CVA, ARF, Chemo, Hep., AIDS, mental health diagnosis, sleep apnea, morbid obesity)? @ -none Was patient admitted / discharged? Hospital course, mention meds given and route, prescriptions, significant lab abnormalities, going to OR and other pertinent info. @ - Undiagnosed new problem with uncertain prognosis? @ -no Drug Therapy requiring intensive monitoring for toxicity (Heparin, Nitro, Insulin, Cardizem)? @ -no Were any procedures done? @ -no Diagnosis/symptom? @ - Acute, or Chronic, or Acute on Chronic? @ -Acute Uncomplicated (without systemic symptoms) or Complicated (systemic symptoms)? @ -Complicated Side effects of treatment? @ -no Exacerbation, Progression, or Severe Exacerbation? @ -exacerbation Poses a threat to life or bodily function? How? (Chest pain, [place], [place], pneumonia, PE, COPD, DKA, ARF, appy, cholecystitis, CVA, Diverticulitis, Homicidal, Suicidal, threat to staff... and all critical care pts) @ -yes Reevaluation #5: Differential Headache: Migraine, tension, cluster, carbon monoxide, central venous thrombosis, pension karma temporal arteritis, acute closure glaucoma, intercranial hemorrhage, mastoiditis, sinusitis, head injury, this is not meant to be an all-inclusive list. Medical Decision Making - Medical Decision Making 69 male acute on chronic headache. Headache improving throughout ER stay, this is patient's chronic similar headache and patient feels better and can be discha rged home Disposition Clinical Impression: Intractable headache, Headache Disposition: HOME SELF-CARE Condition: Good Instructions (If sedation given, give patient instructions): Acute Headache (ED) Referrals: None,Stated [Primary Care Provider] - 1-2 days Time of Disposition: 17:00
[2025-05-08] MEDS: HYDROmorphone 1 MG/ML 1 ML SYRINGE IM STA (17:06)
[2025-05-08] MEDS: ONDANSETRON 4 MG ODT STARTER PACK 2 TAB BTL PO STA (17:09)
[2025-05-08] MEDS: ONDANSETRON ODT 4 MG TAB PO STA (17:09)
[2025-05-08] MEDS: diphenhydrAMINE 50 MG CAP PO STA (17:09)
[2025-05-08] MEDS: traMADol 50 MG STARTER PACK 3 TAB BTL PO STA (17:11)
[2025-05-08 17:13] VITALS: BP 160/99; PULSE 101; RESP 17; TEMP 98
== END 2025-05-08 17:14 | disposition home or self-care (01) ==
LOC: EC 15:57
DX: G89.29 Other chronic pain (principal); R51.9 Headache, unspecified; Z88.6 Allergy status to analgesic agent; Z88.5 Allergy status to narcotic agent; Z87.891 Personal history of nicotine dependence
CPT/HCPCS: 99284; 96372; J1171; S0119

== ENCOUNTER 2025-05-16 18:33 | Emergency (ER) | payer MEDICARE ==
[2025-05-16 18:54] VITALS: TEMP 100
--- NOTE | 2025-05-16 20:40 | ED ---
General Adult HPI - General Chief complaint: Headache Stated complaint: Migraine Headache Time Seen by Provider: 05/16/25 20:28 Source: patient Mode of arrival: ambulatory Limitations: no limitations - History of Present Illness Initial comments: Dictation was produced using [email or web address] dictation software. please excuse any grammatical, word or spelling errors. Chief Complaint: 69-year-old male presents to the emergency department with migraine History of Present Illness: Patient 61-year-old male has well-known history. The emergency department states he has had a migraine for last 1 to 2 days. Has been getting frequent migraines recently. States that the only medicines that helps his migraines is opiates. Patient denies any extremity issues. States that this headache is not severe. The ROS documented in this emergency department record has been reviewed and confirmed by me. Those systems with pertinent positive or negative responses blanchard ve been documented in the HPI. All other systems are other negative and/or noncontributory. - Related Data Home Medications Medication Instructions Recorded Confirmed Morphine Sulfate ER [Ms Contin] 15 mg PO Q12HR 03/17/24 05/05/25 Apixaban [Eliquis] 5 mg PO BID 05/05/25 05/05/25 Clopidogrel [Plavix] 75 mg PO DAILY 05/05/25 05/05/25 Ezetimibe [Zetia] 10 mg PO DAILY 05/05/25 05/05/25 Gabapentin [Neurontin] 300 mg PO TID 05/05/25 05/05/25 HYDROmorphone [Dilaudid] 4 mg PO BID PRN 05/05/25 05/05/25 Isosorbide Mononitrate ER [Imdur] 30 mg PO DAILY 05/05/25 05/05/25 Pantoprazole [Protonix] 40 mg PO DAILY 05/05/25 05/05/25 Sucralfate [Carafate] 1 gm PO QID 05/05/25 05/05/25 Tamsulosin [Flomax] 0.4 mg PO DAILY 05/05/25 05/05/25 carvediloL [Coreg] 25 mg PO BID 05/05/25 05/05/25 hydrALAZINE HCL [Apresoline] 100 mg PO BID 05/05/25 05/05/25 Previous Rx's Medication Instructions Recorded Atorvastatin [Lipitor] 40 mg PO DAILY 30 Days #30 tablet 04/26/24 Nitroglycerin Sl Tabs [Nitrostat] 0.4 mg SUBLINGUAL Q5M PRN #25 tab 05/08/25 amLODIPine [Norvasc] 10 mg PO DAILY #30 tab 05/08/25 Allergies Allergy/AdvReac Type Severity Reaction Status Date / Time codeine Allergy Itching Verified 05/16/25 18:54 ibuprofen [From Motrin] Allergy Rash/Hives Verified 05/16/25 18:54 ketorolac tromethamine Allergy Rash/Hives Verified 05/16/25 18:54 [From Toradol] Review of Systems ROS Statement: Those systems with pertinent positive or pertinent negative responses have been documented in the HPI. ROS Other: All systems not noted in ROS Statement are negative. Past Medical History Past Medical History: Coronary Artery Disease (CAD), Chest Pain / Angina, Deep Vein Thrombosis (DVT), GERD/Reflux, Hyperlipidemia, Hypertension, Osteoarthritis (OA), Thyroid Disorder Additional Past Medical History / Comment(s): Occasional palpitations, gastritis, small hiatal hernia, diverticular dx, pt states years ago he had PUD, chronic low back pain, chronic pain syndrome, migraines, DVT L arm, numbness/tingling bilateral lower legs, bilateral past R hand fracture, arthritis multiple joints, hyperthyroid, sinus problems. History of Any Multi-Drug Resistant Organisms: None Reported Past Surgical History: Back Surgery, Cholecystectomy, Heart Catheterization With Stent, Orthopedic Surgery Additional Past Surgical History / Comment(s): EGDs/colonoscopies, multiple low back surgeries, bilateral arm and bilateral thigh surgeries for brown recluse spider bites with infection, morphine pain pump insertion and removal due to infection, PCI with stents, L rotator cuff repair, L knee arthroscopy, cervical fusion/cage, R cataract removal.left knee replacement 10/27/2023 Past Anesthesia/Blood Transfusion Reactions: No Reported Reaction Additional Past Anesthesia/Blood Transfusion Reaction / Comment(s): 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 states he was "down for 12 minutes" lower back surgery Date of Last Stent Placement:: 10/12/17 Past Psychological History: Anxiety Smoking Status: Former smoker Past Alcohol Use History: None Reported Past Drug Use History: None Reported - Past Family History Father Family Medical History: No Reported History Additional Family Medical History / Comment(s): Father had back problems. He lived to be 82 yrs old. Mother History Unknown: Yes Family Medical History: Hypertension, Myocardial Infarction ([place]) Additional Family Medical History / Comment(s): Mother of a [place] at the age of 55yrs. Brother(s) Family Medical History: Cancer, COPD Additional Family Medical History / Comment(s): Leukemia General Exam - General Exam Comments Initial Comments: PHYSICAL EXAM: General Impression: Alert and oriented x3, not in acute distress HEENT: Normocephalic atraumatic, extra-ocular movements intact, pupils equal and reactive to light bilaterally, mucous membranes moist. Cardiovascular: Heart regular rate and rhythm Chest: Able to complete full sentences, no retractions, no tachypnea Abdomen: abdomen soft, non-tender, non-distended, no organomegaly Musculoskeletal: Pulses present and equal in all extremities, no peripheral edema Motor: no focal deficits noted Neurological: CN II-XII grossly intact, no focal motor or sensory deficits noted Skin: Intact with no visualized rashes Psych: Normal affect and mood Limitations: no limitations Course Vital Signs 05/16/25 05/16/25 18:52 20:28 Temperature 100.0 F H Pulse Rate 104 H 107 H Respiratory 22 16 Rate Blood Pressure 184/87 185/101 O2 Sat by Pulse 98 99 Oximetry Medical Decision Making - Medical Decision Making Was pt. sent in by a medical professional or institution (FAITH Burns, AGRICULTURAL EQUIPMENT TEST ENGINEER, urgent care, hospital, or senior living...) When possible be specific @ -No Did you speak to anyone other than the patient for history (EMS, parent, family, police, friend...)? What history was obtained from this source @ -No Did you review nursing and triage notes (agree or disagree)? Why? @ -I reviewed and agree with nursing and triage notes Were old charts reviewed (outside hosp., previous admission, EMS record, old E KG, old radiological studies, urgent care reports/EKG's, senior living records)? Report findings @ -No old charts were reviewed Differential Diagnosis (chest pain, altered mental status, abdominal pain women, abdominal pain men, vaginal bleeding, musculoskeletal, weakness, fever, dyspnea, syncope, headache, dizziness, GI bleed, back pain, seizure, CVA, palpatations, mental health)? @ -Differential Headache: Migraine, tension, cluster, carbon monoxide, central venous thrombosis, pension karma temporal arteritis, acute closure glaucoma, intercranial hemorrhage, mastoiditis, sinusitis, head injury, this is not meant to be an all-inclusive list. EKG interpreted by me (3pts min.). @ -None done X-rays interpreted by me (1pt min.). @ -None done CT interpreted by me (1pt min.). @ -None done U/S interpreted by me (1pt. min.). @ -None done What testing was considered but not performed or refused? (CT, X-rays, U/S, labs)? Why? @ -None What meds were considered but not given or refused? Why? @ -None Was smoking cessation discussed for >3mins.? @ -No Were there social determinants of health that impacted care today? How? (Homelessness, low income, unemployed, alcoholism, drug addiction, transportation, low edu. Level, literacy, decrease access to med. care, assisted, rehab)? @ -No Was there de-escalation of care discussed even if they declined (Discuss DNR or withdrawal of care, Hospice)? DNR status @ -No What co-morbidities impacted this encounter? (DM, HTN, Smoking, COPD, CAD, Cancer, CVA, ARF, Chemo, Hep., AIDS, mental health diagnosis, sleep apnea, morbid obesity)? @ -None Was patient admitted / discharged? Hospital course, mention meds given and route, prescriptions, significant lab abnormalities, going to OR and other pertinent info. @ -69-year-old male well-known to the emergency department for opiate use disorder presents to the ER for a migraine. Patient well-appearing vital signs stable. Physical examination is benign. Patient has no high risk features. Patient given analgesic medications and antiemetics. Patient discharged Did you discuss the management of the patient with other professionals (professionals i.e. , PA, AGRICULTURAL EQUIPMENT TEST ENGINEER, lab, RT, psych nurse, social worker health services, obstetrician/gynecologist, teacher, executive vice president and chief operating officer, outsole caser)? Give summary @ -No Was critical care preformed (if so, how long)? @ -No Undiagnosed new problem with uncertain prognosis? @ -No Drug Therapy requiring intensive monitoring for toxicity (Heparin, Nitro, Insulin, Cardizem)? @ -No Were any procedures done? @ -No Diagnosis/symptom? Acute, or Chronic, or Acute on Chronic? Uncomplicated (without systemic symptoms) or Complicated (systemic symptoms)? @ -Migraine Side effects of treatment? @ -No Exacerbation, Progression, or Severe Exacerbation? @ -No Poses a threat to life or bodily function? How? (Chest pain, [place], [place], pneumonia, PE, COPD, DKA, ARF, appy, cholecystitis, CVA, Diverticulitis, Homicidal, Suicidal, threat to staff... and all critical care pts) @ -No Disposition Clinical Impression: Migraine Disposition: HOME SELF-CARE Condition: Good Instructions (If sedation given, give patient instructions): Acute Headache (ED) Is patient prescribed a controlled substance at d/c from ED?: No Referrals: None,Stated [Primary Care Provider] - 1-2 days Time of Disposition: 20:39
[2025-05-16] MEDS: ONDANSETRON 4 MG/2 ML VIAL IM STA (21:00)
[2025-05-16] MEDS: HYDROmorphone 1 MG/ML 1 ML SYRINGE IM STA (21:00)
[2025-05-16 21:07] VITALS: BP 186/73; PULSE 91; RESP 12
== END 2025-05-16 21:07 | disposition home or self-care (01) ==
LOC: EC 18:33
DX: G43.909 Migraine, unspecified, not intractable, without status migrainosus (principal); Z87.891 Personal history of nicotine dependence; Z88.6 Allergy status to analgesic agent; Z88.5 Allergy status to narcotic agent
CPT/HCPCS: 99282; 96372; J2405; J1171

== ENCOUNTER 2025-05-17 01:12 | Emergency (ER) | payer MEDICARE ==
[2025-05-17 01:47] VITALS: RESP 18
--- NOTE | 2025-05-17 03:35 | ED ---
Headache HPI - General Chief Complaint: Headache Stated Complaint: Migraine Time Seen by Provider: 05/17/25 03:33 Source: RN notes reviewed, old records reviewed Mode of arrival: ambulatory Limitations: no limitations - History of Present Illness Initial Comments: This is a 69-year-old male reevaluation of chronic headache chronic migraine headache MD Complaint: headache, "migraine" -: days(s) Onset Description: gradual Location: frontal Severity: severe Severity scale (1-10): 10 Quality: sharp Consistency: constant Improves With: nothing Worsens With: none Context: other Associated Symptoms: nausea, vomiting Other Symptoms: other Treatments Prior to Arrival: other - Related Data Home Medications Medication Instructions Recorded Confirmed Morphine Sulfate ER [Ms Contin] 15 mg PO Q12HR 03/17/24 05/05/25 Apixaban [Eliquis] 5 mg PO BID 05/05/25 05/05/25 Clopidogrel [Plavix] 75 mg PO DAILY 05/05/25 05/05/25 Ezetimibe [Zetia] 10 mg PO DAILY 05/05/25 05/05/25 Gabapentin [Neurontin] 300 mg PO TID 05/05/25 05/05/25 HYDROmorphone [Dilaudid] 4 mg PO BID PRN 05/05/25 05/05/25 Isosorbide Mononitrate ER [Imdur] 30 mg PO DAILY 05/05/25 05/05/25 Pantoprazole [Protonix] 40 mg PO DAILY 05/05/25 05/05/25 Sucralfate [Carafate] 1 gm PO QID 05/05/25 05/05/25 Tamsulosin [Flomax] 0.4 mg PO DAILY 05/05/25 05/05/25 carvediloL [Coreg] 25 mg PO BID 05/05/25 05/05/25 hydrALAZINE HCL [Apresoline] 100 mg PO BID 05/05/25 05/05/25 Previous Rx's Medication Instructions Recorded Atorvastatin [Lipitor] 40 mg PO DAILY 30 Days #30 tablet 03/18/24 Nitroglycerin Sl Tabs [Nitrostat] 0.4 mg SUBLINGUAL Q5M PRN #25 tab 05/08/25 amLODIPine [Norvasc] 10 mg PO DAILY #30 tab 05/08/25 Allergies Allergy/AdvReac Type Severity Reaction Status Date / Time codeine Allergy Itching Verified 05/17/25 01:47 ibuprofen [From Motrin] Allergy Rash/Hives Verified 05/17/25 01:47 ketorolac tromethamine Allergy Rash/Hives Verified 05/17/25 01:47 [From Toradol] Review of Systems ROS Statement: Those systems with pertinent positive or pertinent negative responses have been documented in the HPI. ROS Other: All systems not noted in ROS Statement are negative. Past Medical History Past Medical History: Coronary Artery Disease (CAD), Chest Pain / Angina, Deep Vein Thrombosis (DVT), GERD/Reflux, Hyperlipidemia, Hypertension, Osteoarthritis (OA), Thyroid Disorder Additional Past Medical History / Comment(s): Occasional palpitations, gastritis, small hiatal hernia, diverticular dx, pt states years ago he had PUD, chronic low back pain, chronic pain syndrome, migraines, DVT L arm, numbness/tingling bilateral lower legs, bilateral past R hand fracture, arthritis multiple joints, hyperthyroid, sinus problems. History of Any Multi-Drug Resistant Organisms: None Reported Past Surgical History: Back Surgery, Cholecystectomy, Heart Catheterization With Stent, Orthopedic Surgery Additional Past Surgical History / Comment(s): EGDs/colonoscopies, multiple low back surgeries, bilateral arm and bilateral thigh surgeries for brown recluse spider bites with infection, morphine pain pump insertion and removal due to infection, PCI with stents, L rotator cuff repair, L knee arthroscopy, cervical fusion/cage, R cataract removal.left knee replacement 10/27/2023 Past Anesthesia/Blood Transfusion Reactions: No Reported Reaction Additional Past Anesthesia/Blood Transfusion Reaction / Comment(s): 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 states he was "down for 12 minutes" lower back surgery Date of Last Stent Placement:: 10/12/17 Past Psychological History: Anxiety Smoking Status: Former smoker Past Alcohol Use History: None Reported Past Drug Use History: None Reported - Past Family History Father Family Medical History: No Reported History Additional Family Medical History / Comment(s): Father had back problems. He lived to be 82 yrs old. Mother History Unknown: Yes Family Medical History: Hypertension, Myocardial Infarction ([place]) Additional Family Medical History / Comment(s): Mother of a [place] at the age of 55yrs. Brother(s) Family Medical History: Cancer, COPD Additional Family Medical History / Comment(s): Leukemia General Exam Limitations: no limitations General appearance: alert, in no apparent distress Head exam: Present: atraumatic, normocephalic, normal inspection Eye exam: Present: normal appearance, PERRL, EOMI. Absent: scleral icterus, conjunctival injection, periorbital swelling ENT exam: Present: normal exam, mucous membranes moist Neck exam: Present: normal inspection. Absent: tenderness, meningismus, lymphadenopathy Respiratory exam: Present: normal lung sounds bilaterally. Absent: respiratory distress, wheezes, rales, rhonchi, stridor Cardiovascular Exam: Present: regular rate, normal rhythm, normal heart sounds. Absent: systolic murmur, diastolic murmur, rubs, gallop, clicks GI/Abdominal exam: Present: soft, normal bowel sounds. Absent: distended, tenderness, guarding, rebound, rigid Extremities exam: Present: normal inspection, full ROM, normal capillary refill. Absent: tenderness, pedal edema, joint swelling, calf tenderness Back exam: Present: normal inspection Neurological exam: Present: alert, oriented X3, CN II-XII intact Psychiatric exam: Present: normal affect, normal mood Skin exam: Present: warm, dry, intact, normal color. Absent: rash Course Vital Signs 05/17/25 05/17/25 01:44 04:11 Temperature 97.6 F 97.8 F Pulse Rate 100 99 Respiratory 18 18 Rate Blood Pressure 181/112 175/100 O2 Sat by Pulse 99 99 Oximetry - Reevaluation(s) Reevaluation #1: 05/17/25 04:11 Medical records reviewed Reevaluation #2: 05/17/25 04:11 Headache is resolved Reevaluation #3: 05/17/25 04:11 Patient informed of results questions answered Reevaluation #4: Was pt. sent in by a medical professional or institution (, PA, SANITARIAN INSPECTOR, urgent care, hospital, or correction...) When possible be specific @ -no Did you speak to anyone other than the patient for history (EMS, parent, family, police, friend...)? What history was obtained from this source @ -no Did you review nursing and triage notes (agree or disagree)? Why? @ -agree Are old charts reviewed (outside hosp., previous admission, EMS record, old EKG, old radiological studies, urgent care reports/EKG's, correction records)? Report findings @ -yes Differential Diagnosis (chest pain, altered mental status, abdominal pain women, abdominal pain men, vaginal bleeding, weakness, fever, dyspnea, syncope, headache, dizziness, GI bleed, back pain, seizure, CVA, palpatations, mental health, musculoskeletal)? @ -prior EKG interpreted by me (3pts min.). @ -no X-rays interpreted by me (1pt min.). @ -no CT interpreted by me (1pt min.). @ -no U/S interpreted by me (1pt. min.). @ -no What testing was considered but not performed or refused? (CT, X-rays, U/S, labs)? Why? @ -none What meds were considered but not given or refused? Why? @ -none Did you discuss the management of the patient with other professionals (professionals i.e. , PA, SANITARIAN INSPECTOR, lab, RT, psych nurse, social media intern, emergency medical technician/driver, teacher, transport corps officer, case manager specialist)? Give summary @ -no Was smoking cessation discussed for >3mins.? @ -no Was critical care preformed (if so, how long)? @ -no Were there social determinants of health that impacted care today? How? (Homelessness, low income, unemployed, alcoholism, drug addiction, hurley sportation, low edu. Level, literacy, decrease access to med. care, [facility], rehab)? @ -none Was there de-escalation of care discussed even if they declined (Discuss DNR or withdrawal of care, Hospice)? DNR status @ -no What co-morbidities impacted this encounter? (DM, HTN, Smoking, COPD, CAD, Cancer, CVA, ARF, Chemo, Hep., AIDS, mental health diagnosis, sleep apnea, morbid obesity)? @ -none Was patient admitted / discharged? Hospital course, mention meds given and route, prescriptions, significant lab abnormalities, going to OR and other pertinent info. @ - 69 male to the ER for evaluation of chronic headaches headache is improved patient feels well and can be discharged home Discharge Undiagnosed new problem with uncertain prognosis? @ -no Drug Therapy requiring intensive monitoring for toxicity (Heparin, Nitro, Insulin, Cardizem)? @ -no Were any procedures done? @ -no Diagnosis/symptom? @ -Migraine headache Acute, or Chronic, or Acute on Chronic? @ -Acute Uncomplicated (without systemic symptoms) or Complicated (systemic symptoms)? @ -Complicated Side effects of treatment? @ -no Exacerbation, Progression, or Severe Exacerbation? @ -exacerbation Poses a threat to life or bodily function? How? (Chest pain, [place], [place], pneumonia, PE, COPD, DKA, ARF, appy, cholecystitis, CVA, Diverticulitis, Homicidal, Suicidal, threat to staff... and all critical care pts) @ -no Reevaluation #5: Differential Headache: Migraine, tension, cluster, carbon monoxide, central venous thrombosis, pension karma temporal arteritis, acute closure glaucoma, intercranial hemorrhage, mastoiditis, sinusitis, head injury, this is not meant to be an all-inclusive list. Medical Decision Making - Medical Decision Making 69 male to the ER for evaluation of chronic headaches headache is improved patient feels well and can be discharged home Disposition Clinical Impression: Migraine, Headache Disposition: HOME SELF-CARE Condition: Good Instructions (If sedation given, give patient instructions): Acute Headache (ED) Is patient prescribed a controlled substance at d/c from ED?: No Referrals: None,Stated [Primary Care Provider] - 1-2 days Time of Disposition: 03:30
[2025-05-17] MEDS: diphenhydrAMINE 50 MG CAP PO STA (04:03)
[2025-05-17] MEDS: PROCHLORPERAZINE 10 MG TAB PO STA (04:03)
[2025-05-17] MEDS: HYDROmorphone 1 MG/ML 1 ML SYRINGE IM STA (04:03)
[2025-05-17 04:13] VITALS: BP 175/100; PULSE 99; TEMP 97.8
== END 2025-05-17 04:30 | disposition home or self-care (01) ==
LOC: EC 01:12
DX: G43.909 Migraine, unspecified, not intractable, without status migrainosus (principal); Z87.891 Personal history of nicotine dependence; Z88.6 Allergy status to analgesic agent; Z88.8 Allergy status to other drugs, medicaments and biological substances
CPT/HCPCS: 99283; 96372; S0183; J1171